=== PATIENT | female | born 1970 | race Caucasian/White ===

== ENCOUNTER 2019-12-09 19:40 | Emergency (ER) | payer OTHER, BC, SELFPAY ==
--- NOTE | ~2019-12-09 | CT_ITS ---
EXAMINATION: CT abdomen pelvis wo con DATE: 12/10/2019 00:12 INDICATION: Epigastric abdominal pain. TECHNIQUE: Computed tomography (CT) of the abdomen and pelvis was performed without intravenous contr ast. Automated exposure control and iterative reconstruction technique were employed. The dose-length product was 399.18 mGy-cm. COMPARISON: CT abdomen and pelvis 07/17/2019 FINDINGS: The visualized portions of the lung bases demonstrate mild atelectasis. No pleural effusion . The heart size is normal. No pericardial effusion. Again seen is pneumobilia, likely secondary to s phincterotomy. There are changes of cholecystectomy. The spleen, pancreas, adrenal glands, and kidney s are normal. There is no urolithiasis. There are no dilated loops of bowel. The appendix is normal. There are no pathologically enlarged lymph nodes. There is no free intraperitoneal fluid. There is joy bcutaneous fat stranding in right buttock, likely fat necrosis. The bones are unremarkable. IMPRESSION: 1. No etiology for the patient's symptoms. Reviewed, dictated and finalized at location A. RTMENT ADMINISTRATOR
[2019-12-09 20:26] VITALS: BP 102/60; PULSE 70; RESP 18; TEMP 36.9; O2SAT 100
--- NOTE | 2019-12-09 20:33 | ECG_ITS ---
Measurements Intervals [place] Rate: 59 P: 62 FL: 116 QRS: 61 QRSD: 68 T: 58 QT: 386 QTc: 382 Interpretive Statements SINUS BRADYCARDIA WITH SHORT FL INTERVAL BORDERLINE ECG Electronically Signed On 12-10-2019 7:00:23 SENIOR PORTFOLIO ANALYST by Hernesto Ellis D.O.
[2019-12-09 20:42] LABS: Basophils Percent Auto 0.7 % (0.2-1.2); Eosinophils Absolute Auto 0.3 K/mm3 (0-0.3); Eosinophils Percent Auto 5.3 % (0-4.4); Hemoglobin 14.3 g/dL (12.0-15.0); Immature Granulocyte Absolute 0.01 K/mm3 (0.00-0.031); Immature Granulocyte Percent A 0.2 % (0-0.5); Lymphocytes Absolute Auto 2.54 K/mm3 (0.9-3.2); Lymphocytes Percent Auto 44.9 % (18.3-44.2); Mean Corpuscular Volume 88.1 fl (80-100); Monocytes Absolute Auto 0.5 K/mm3 (0.1-0.6); Monocytes Percent Auto 8.1 % (2.6-8.5); Neutrophils Absolute Auto 2.3 K/mm3 (1.3-6.7); Neutrophils Percent Auto 40.8 % (45.5-73.1); Platelet Count Result 204 k/mm3 (150-375); Red Blood Count 4.77 M/mm3 (4.2-5.4); Red Cell Distribution Width 12.5 % (11.5-14.5); White Blood Count 5.7 K/mm3 (4.5-10.0)
[2019-12-09 20:45] LABS: Add Urine Microscopic? YES; Appearance Urine Clear (Clear); Bilirubin Urine Negative (Negative); Blood Urine Negative (Negative); Color Urine Yellow (Yellow); Glucose Urine UA Negative (Negative); Ketones Urine Trace mg/dL (Negative); Leukocyte Esterase Ur Negative LEU/UL (Negative); Mucus Urine Rare /lpf; Nitrate Urine Negative (Negative); Protein Urine Negative (Negative); RBC Urine 0-2 /hpf (0-2); Specific Grav Ur 1.016 (1.001-1.035); Squamous Epithelial Cell Urine Rare /hpf (Few); Urobilinogen Urine Negative mg/dL (<2.0); WBC Urine 0-3 /hpf
[2019-12-09 20:54] LABS: Alanine Aminotransferase 23 U/L (4-35); Albumin Level 4.2 g/dL (3.5-5.1); Alkaline Phosphatase 69 U/L (38-126); Aspartate Amino Transferase 32 U/L (14-36); Bilirubin,Total 0.7 mg/dL (0.2-1.3); Blood Urea Nitrogen 11 mg/dL (7-17); Calcium 9.7 mg/dL (8.4-10.2); Carbon Dioxide 30 mmol/L (22-30); Chloride 102 mmol/L (98-107); Estimated CRCL calculation 65 ml/min; Estimated Glomerular Filt Rate > 60; Glucose 90 mg/dL (65-105); Lipase 48 U/L (23-300); Sodium 138 mmol/L (137-145)
[2019-12-09 21:06] LABS: Troponin I < 0.012 ng/mL (0.000-0.034)
[2019-12-09 23:24] VITALS: BP 108/67; PULSE 84; RESP 18; O2SAT 100
--- NOTE | 2019-12-09 23:41 | ED.ABDPAIN ---
HPI - Abdominal Pain General Chief Complaint: Abdominal Pain Stated Complaint: ABD PAIN Time Seen by Provider: 12/09/19 23:38 Source: patient and RN notes reviewed Mode of arrival: other Limitations: no limitations History of Present Illness HPI narrative: Pt is a 49 y/o female who presents to the ED with c/o epigastric abdominal pain that radiates to her chest that began a week ago, but has progresively worsened. Pt states that she has had heartburn for the past week. Pt describes her pain as burning. Pt states that on the right side of her abdomen her 'intestines draw up.' She states that she has been taking Protonix BID and Tums, but with no relief. Pt reports constipation and a cough, but denies nausea, diarrhea, and dysuria. Pt's GI is Dr. Gomez at [facility]. elicited complaint: abdominal pain Onset (ago): week(s) (1) Location: epigastric Quality: burning Radiation: chest Relieving factors: nothing Associated symptoms: other (constipation, cough) Related Data Home Medications Medication Instructions Recorded Confirmed desipramine 10 mg tablet 10 mg PO DAILY 09/17/19 pantoprazole 40 mg tablet,delayed 40 mg PO BID tablet 09/17/19 release rizatriptan 10 mg tablet See Rx Instructions PO .COMPLEX 09/17/19 Allergies Allergy/AdvReac Type Severity Reaction Status Date / Time ciprofloxacin Allergy Mild MUSCLE Verified 12/09/19 23:50 ACHES iodine Allergy Mild Unknown Verified 12/09/19 23:50 morphine Allergy Mild N/V Verified 12/09/19 23:50 Quinolones Allergy Mild Unknown Verified 12/09/19 23:50 tetracycline Allergy Mild MUSCLE ACHS Verified 12/09/19 23:50 doxycycline Allergy Unknown Unknown Verified 12/09/19 23:50 prochlorperazine Allergy Unknown Unknown Verified 12/09/19 23:50 promethazine Allergy Unknown Unknown Verified 12/09/19 23:50 sulfamethoxazole Allergy Unknown Unknown Verified 12/09/19 23:50 trimethoprim Allergy Unknown Unknown Verified 12/09/19 23:50 Contrast Media Allergy Severe IVP DYE Uncoded 12/09/19 23:50 CAUSES RESPIRATORY DISTRESS CIPROFLOXACIN HCL Allergy Mild MUSCLE Uncoded 12/09/19 23:50 ACHES Review of Systems Review of Systems: All systems reviewed & are unremarkable except as noted in HPI and below Respiratory: Respiratory: Reports cough Gastrointestinal: Gastrointestinal: Reports abdominal pain (epigastric, radiates to her chest), Reports constipation, Denies diarrhea and Denies nausea Genitourinary: Genitourinary: Denies dysuria PMFSH Past Medical History Medical History (Updated 12/10/19 @ 04:07 by Celsa Flanagan MD) Acute gastritis without bleeding Duodenal ulcer, unspecified as acute or chronic, without hemorrhage or perforation Esophageal reflux Fibromyalgia Migraine with aura and with status migrainosus, not intractable Mild intermittent asthma, uncomplicated Monoclonal gammopathy of unknown significance (MGUS) 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 Raynaud's syndrome Selective deficiency of immunoglobulin a [iga] Unspecified vitamin D deficiency Surgical History Surgical History (Updated 12/10/19 @ 00:02 by Selina Rider) H/O rectal sphincterotomy H/O sinus surgery History of bladder surgery History of ERCP x2 History of hysterectomy Hx of cholecystectomy Hx of tonsillectomy Social History Social History Smoking status: Never smoker Alcohol intake: never Gender identity (if verbalized by the patient): Female Exam Const: General: cooperative, no acute distress and alert Nutritional Appearance: well nourished Orientation/consciousness: patient oriented x3 Limitations: no limitations HENMT: Mouth: Yes lip normal and Yes moist mucous membranes Chest: Chest palpation & inspection: no tenderness (chest wall) Resp: Effort & Inspection: normal respiratory effort Auscultation: clear to auscultation bilaterally Cardio: Ra
[2019-12-09 23:51] VITALS: BP 128/82; PULSE 56; RESP 16; TEMP 36.4; O2SAT 100
--- NOTE | 2019-12-10 00:04 | PC.NURSE ---
Patient to radiology.
[2019-12-10] MEDS: PANTOPRAZOLE SODIUM IV 40 MG VIAL IV PUSH (00:23)
[2019-12-10 01:00] VITALS: BP 114/86; PULSE 57; RESP 18; O2SAT 99
[2019-12-10] MEDS: SUCRALFATE SUSP 100 MG/ML 10 ML UDC 1000 MG PO (02:09)
[2019-12-10 02:28] VITALS: BP 113/80; PULSE 60; RESP 20; TEMP 36.8; O2SAT 99
== END 2019-12-10 02:30 | disposition home or self-care (01) ==
PROVIDERS: Emergency Medicine; Emergency Provider Emergency Medicine; PCP Family Medicine
DX: R10.13 Epigastric pain (principal); K21.9 Gastro-esophageal reflux disease without esophagitis; M79.7 Fibromyalgia; J45.20 Mild intermittent asthma, uncomplicated; I73.00 Raynaud's syndrome without gangrene; R00.1 Bradycardia, unspecified
CPT/HCPCS: 36415; 74176; 80053; 81001; 83690; 84484; 85025; 93005; 96374; 99284; A9270; C9113

== ENCOUNTER 2020-04-07 10:30 | Emergency (ER) | payer OTHER, BC, SELFPAY ==
[2020-04-07 10:42] VITALS: BP 113/76; PULSE 65; RESP 20; TEMP 36.8; O2SAT 100
--- NOTE | 2020-04-07 10:43 | ED.URI ---
HPI - URI/Sore Throat General Chief Complaint: Upper Respiratory Infection Stated Complaint: upper respiratory infection Time Seen by Provider: 04/07/20 10:43 Source: patient Mode of arrival: ambulatory Limitations: no limitations History of Present Illness HPI Narrative: Pina Reynaga is a 50 yo female with a PMH of anxiety, asthma, GERD, migraine, unknown autoimmune disease, who comes to [facility] care with sinus pain, cough, rhinorrhea,x 2 days Related Data Home Medications Medication Instructions Recorded Confirmed pantoprazole 40 mg tablet,delayed 40 mg PO BID tablet 09/17/19 03/22/20 release Zyrtec 04/07/20 Allergies Allergy/AdvReac Type Severity Reaction Status Date / Time ciprofloxacin Allergy Mild MUSCLE Verified 04/03/20 09:07 ACHES iodine Allergy Mild Unknown Verified 04/03/20 09:07 morphine Allergy Mild N/V Verified 04/03/20 09:07 Quinolones Allergy Mild Unknown Verified 04/03/20 09:07 tetracycline Allergy Mild MUSCLE ACHS Verified 04/03/20 09:07 doxycycline Allergy Unknown Unknown Verified 04/03/20 09:07 prochlorperazine Allergy Unknown Unknown Verified 04/03/20 09:07 promethazine Allergy Unknown Unknown Verified 04/03/20 09:07 sulfamethoxazole Allergy Unknown Unknown Verified 04/03/20 09:07 trimethoprim Allergy Unknown Unknown Verified 04/03/20 09:07 Contrast Media Allergy Severe IVP DYE Uncoded 04/03/20 09:07 CAUSES RESPIRATORY DISTRESS CIPROFLOXACIN HCL Allergy Mild MUSCLE Uncoded 04/03/20 09:07 ACHES Review of Systems Review of Systems: Narrative: CONSTITUTIONAL: Denies fever, chills, sweats. EYES: Denies visual changes, redness, discharge. ENT: Has rhinorrhea, congestion, headache, no sore throat, no otalgia. CARDIOVASCULAR: Denies chest pain, palpitations, edema. RESPIRATORY: Denies dyspnea, wheezing, mild cough GASTROINTESTINAL: Denies abdominal pain, nausea, vomiting, diarrhea. GENITOURINARY: Denies dysuria, hematuria, abnormal discharge SKIN: Denies rash or itching. NEUROLOGIC: Denies numbness, or focal weakness. PSYCHIATRIC: Denies anxiety or depression. 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] Unspecified vitamin D deficiency Surgical History Surgical History H/O rectal sphincterotomy H/O sinus surgery History of bladder surgery History of ERCP x2 History of hysterectomy Hx of cholecystectomy Hx of tonsillectomy Family History Family History Mother Family history of osteoporosis Hypertension Family history of arthritis Depression Family history of psoriasis Grandparent Family history of osteoporosis Hypertension Family history of malignant neoplasm Family history of chronic obstructive pulmonary disease Family history of Alzheimer's disease Family history of glaucoma Cerebrovascular accident Family history of malignant neoplasm of breast Family history of lymphoma Family history of malignant neoplasm of ovary Father Hypertension Asthma Other Family history of migraine headaches Social History Social History Smoking status: Never smoker Alcohol intake: never Gender identity (if verbalized by the patient): Female Comments At time of signature, I agree with nursing past medical, surgical, social and family history. There is no relevant fam
== END 2020-04-07 11:10 | disposition home or self-care (01) ==
PROVIDERS: Emergency Provider Nurse Practitioner; PCP Family Medicine
DX: J01.11 Acute recurrent frontal sinusitis (principal); J45.909 Unspecified asthma, uncomplicated; K21.9 Gastro-esophageal reflux disease without esophagitis; M79.7 Fibromyalgia; M85.80 Other specified disorders of bone density and structure, unspecified site; I73.00 Raynaud's syndrome without gangrene; E55.9 Vitamin D deficiency, unspecified
CPT/HCPCS: 99213; G0463

== ENCOUNTER 2020-04-22 17:01 | Emergency (ER) | payer OTHER, BC, SELFPAY ==
--- NOTE | 2020-04-22 17:05 | ED.URI ---
HPI - URI/Sore Throat General Chief Complaint: Upper Respiratory Infection Stated Complaint: upper respiratory infection Time Seen by Provider: 04/22/20 17:43 Source: patient and RN notes reviewed Mode of arrival: ambulatory Limitations: no limitations History of Present Illness HPI Narrative: 50-year-old female presents with concern for sinus congestion, cough, nasal drainage for approximately 3 weeks. Reports frequent sinus infections, sees a sinus specialist but is unable to get in to see him. Denies fever. Reports malaise. Reports taking Zyrtec and Benadryl as needed. Finished a Medrol Dosepak after a visit to the [facility] for sinusitis on April 07. Reports some relief from the Dosepak however symptoms returned. MD elicited complaint: cough and nasal congestion Related Data Home Medications Medication Instructions Recorded Confirmed pantoprazole 40 mg tablet,delayed 40 mg PO BID tablet 09/17/19 04/22/20 release Zyrtec 10 mg DAILY 04/07/20 04/22/20 Allergies Allergy/AdvReac Type Severity Reaction Status Date / Time ciprofloxacin Allergy Mild MUSCLE Verified 04/22/20 17:11 ACHES iodine Allergy Mild Unknown Verified 04/22/20 17:11 morphine Allergy Mild N/V Verified 04/22/20 17:11 Quinolones Allergy Mild Unknown Verified 04/22/20 17:11 tetracycline Allergy Mild MUSCLE ACHS Verified 04/22/20 17:11 doxycycline Allergy Unknown Unknown Verified 04/22/20 17:11 prochlorperazine Allergy Unknown Unknown Verified 04/22/20 17:11 promethazine Allergy Unknown Unknown Verified 04/22/20 17:11 sulfamethoxazole Allergy Unknown Unknown Verified 04/22/20 17:11 trimethoprim Allergy Unknown Unknown Verified 04/22/20 17:11 Contrast Media Allergy Severe IVP DYE Uncoded 04/03/20 09:07 CAUSES RESPIRATORY DISTRESS CIPROFLOXACIN HCL Allergy Mild MUSCLE Uncoded 04/03/20 09:07 ACHES Review of Systems Review of Systems: Narrative: CONSTITUTIONAL: Denies malaise, chills, sweats, or fever. EYES: Denies visual changes, redness, or discharge. ENT: Reports rhinorrhea, congestion, sinus pain, otalgia and sore throat. CARDIOVASCULAR: Denies chest pain, palpitations, or edema. RESPIRATORY: Reports cough. Denies dyspnea. GASTROINTESTINAL: Denies abdominal pain, nausea, vomiting, diarrhea SKIN: Denies rash or itching. MUSCULOSKELETAL: Denies myalgia. NEUROLOGIC: Denies headache. All systems reviewed & are unremarkable except as noted in HPI and below PMFSH Social History Social History Smoking status: Never smoker Alcohol intake: never Gender identity (if verbalized by the patient): Female Comments At time of signature, agree with nursing past medical, surgical, social and family history. There is no relevant family history pertinent to the presenting complaint Exam Narrative: Exam Narrative: GENERAL: Well-appearing, well-nourished, and in no acute distress. HEAD: Normocephalic EYES: PERRLA, conjunctivae clear ENT: Nares clear, turbinates edematous and erythematous, green discharge, sinus tenderness. Mucous membranes moist. TM pearly douglass with dull light reflex bilaterally; no tragal tenderness. Oropharynx not erythematous without lesions. Tonsils not enlarged and without exudate, no drooling, no hoarseness, no trismus, uvula midline. NECK: Supple. No lymphadenopathy CHEST: Clear to auscultation, breath sounds equal. No wheezing, rhonchi, rales, or stridor. No respiratory distress, speaks in full sentences. HEART: Regular rate and rhythm. No murmur heard. SKIN: Warm, dry, no rash. NEURO: Alert and oriented x3. PSYCH: Normal mood and affect Course Course Emergency Course: Patient is aware of diagnosis, understands and agrees to treatment plan. Anticipatory guidance given. Patient agrees to follow-up as directed and is aware of reasons to seek care at the emergency department. Portions of this record may have been created with voice recognition software [employer]
[2020-04-22 17:10] VITALS: BP 112/71; PULSE 71; RESP 18; TEMP 37.4; O2SAT 100
== END 2020-04-22 17:57 | disposition home or self-care (01) ==
PROVIDERS: Emergency Provider Nurse Practitioner; PCP Family Medicine
DX: J06.9 Acute upper respiratory infection, unspecified (principal); R05 Cough; K21.9 Gastro-esophageal reflux disease without esophagitis
CPT/HCPCS: 99213; G0463

== ENCOUNTER 2020-06-11 17:06 | Emergency (ER) | payer OTHER, BC, SELFPAY ==
--- NOTE | ~2020-06-11 | XR_ITS ---
EXAMINATION: XR chest 2V 06/11/2020 17:42 INDICATION: Difficulty breathing PROCEDURE: 2 view chest COMPARISON: 07/19/2019 FINDINGS: The lungs are clear. The cardiomediastinal silhouette is within normal limits. There are no pleural effusions. There is no pneumothorax suspected. IMPRESSION: 1: NO ACUTE CARDIOPULMONARY DISEASE. Reviewed, dictated and finalized at location A.
--- NOTE | 2020-06-11 17:10 | ED.URI ---
HPI - URI/Sore Throat General Chief Complaint: Upper Respiratory Infection Stated Complaint: Possible sinus infection Time Seen by Provider: 06/11/20 17:14 Source: patient and RN notes reviewed Mode of arrival: ambulatory Limitations: no limitations History of Present Illness HPI Narrative: 50-year-old female with chronic sinusitis and IgA deficiency presents with concern for shortness of breath and cough for 2 days. Reports losing her sense of taste and smell. This patient is seen by pediatric sports medicine specialist in a specialist for chronic pansinusitis. MD elicited complaint: nasal congestion and other (Shortness of breath, cough) Related Data Home Medications Medication Instructions Recorded Confirmed pantoprazole 40 mg tablet,delayed 40 mg PO BID tablet 09/17/19 06/11/20 release Zyrtec 10 mg DAILY 04/07/20 06/11/20 budesonide 0.5 mg Q4-6H PRN 06/11/20 06/11/20 Allergies Allergy/AdvReac Type Severity Reaction Status Date / Time ciprofloxacin Allergy Mild MUSCLE Verified 06/11/20 17:13 ACHES iodine Allergy Mild Unknown Verified 06/11/20 17:12 morphine Allergy Mild N/V Verified 06/11/20 17:12 Quinolones Allergy Mild Unknown Verified 06/11/20 17:12 tetracycline Allergy Mild MUSCLE ACHS Verified 06/11/20 17:12 doxycycline Allergy Unknown Unknown Verified 06/11/20 17:12 prochlorperazine Allergy Unknown Unknown Verified 06/11/20 17:12 promethazine Allergy Unknown Unknown Verified 06/11/20 17:12 sulfamethoxazole Allergy Unknown Unknown Verified 06/11/20 17:12 trimethoprim Allergy Unknown Unknown Verified 06/11/20 17:12 Contrast Media Allergy Severe IVP DYE Uncoded 06/11/20 17:13 CAUSES RESPIRATORY DISTRESS Review of Systems Review of Systems: Narrative: CONSTITUTIONAL: Reports malaise, sweats. Denies chills, or fever. EYES: Denies visual changes, redness, or discharge. ENT: Reports rhinorrhea, congestion, sinus pain, postnasal drainage. Denies otalgia and sore throat. CARDIOVASCULAR: Denies chest pain, palpitations, or edema. RESPIRATORY: Reports cough, shortness of breath GASTROINTESTINAL: Denies abdominal pain, nausea, vomiting, diarrhea SKIN: Denies rash or itching. MUSCULOSKELETAL: Denies myalgia. NEUROLOGIC: Denies headache. All systems reviewed & are unremarkable except as noted in HPI and below PMFSH Social History Social History Smoking status: Never smoker Alcohol intake: never Gender identity (if verbalized by the patient): Female Comments At time of signature, agree with nursing past medical, surgical, social and family history. There is no relevant family history pertinent to the presenting complaint Exam Narrative: Exam Narrative: GENERAL: Well-appearing, well-nourished, and in no acute distress. HEAD: Normocephalic EYES: PERRLA, conjunctivae clear ENT: Nares clear, turbinates erythematous, no discharge. Mucous membranes moist. TM pearly douglass with dull light reflex bilaterally; no tragal tenderness. Oropharynx not erythematous without lesions. Tonsils not enlarged and without exudate, no drooling, no hoarseness, no trismus, uvula midline. NECK: Supple. No lymphadenopathy CHEST: Scattered crackles noted in the left upper lobe, otherwise clear to auscultation, breath sounds equal. No wheezing, rhonchi, or stridor. No respiratory distress, speaks in full sentences. HEART: Regular rate and rhythm. No murmur heard. SKIN: Warm, dry, no rash. NEURO: Alert and oriented x3. PSYCH: Normal mood and affect Course Course Emergency Course: Patient is aware of diagnosis, understands and agrees to treatment plan. Anticipatory guidance given. Patient agrees to follow-up as directed and is aware of reasons to seek care at the emergency department. Portions of this record may have been created with voice recognition software Vital Signs Vital signs: Reviewed. MDM - URI/Sore Throat MDM Narrative Medical decision making narrative: Differential diagnosi
[2020-06-11 17:18] VITALS: BP 144/87; PULSE 64; RESP 16; TEMP 37.1; O2SAT 100
== END 2020-06-11 17:59 | disposition home or self-care (01) ==
PROVIDERS: Emergency Provider Nurse Practitioner; PCP Family Medicine
DX: R05 Cough (principal); Z20.828 Contact with and (suspected) exposure to other viral communicable diseases; D80.2 Selective deficiency of immunoglobulin A [IgA]
CPT/HCPCS: 71046; 99213; G0463

== ENCOUNTER 2020-10-14 12:59 | Emergency (ER) | payer OTHER, BC, SELFPAY ==
--- NOTE | 2020-10-14 13:06 | ED.GENADULT ---
HPI - General Adult General Chief complaint: Urogenital-Female Stated complaint: possible uti Time Seen by Provider: 10/14/20 13:07 Source: patient Mode of arrival: ambulatory Limitations: no limitations History of Present Illness HPI narrative: 50-year-old female patient presents to the [facility] with complaints of urinary symptoms that started possibly about 2 weeks ago. Patient states she has had some low back pain for the past 1 to 2 weeks. Patient states she noticed some increase in pain with urination the past couple of days and today noticed some blood in her urine. Denies any fevers, body aches or chills. Patient does have some lower abdominal cramping. Denies any nausea, vomiting or diarrhea. Patient denies taking anything for pain. Related Data Home Medications Medication Instructions Recorded Confirmed Zyrtec 10 mg DAILY 04/07/20 09/01/20 budesonide 0.5 mg Q4-6H PRN 06/11/20 09/01/20 Allergies Allergy/AdvReac Type Severity Reaction Status Date / Time ciprofloxacin Allergy Mild MUSCLE Verified 10/14/20 13:13 ACHES iodine Allergy Mild Unknown Verified 10/14/20 13:13 morphine Allergy Mild N/V Verified 10/14/20 13:13 Quinolones Allergy Mild Unknown Verified 10/14/20 13:13 tetracycline Allergy Mild MUSCLE ACHS Verified 10/14/20 13:13 doxycycline Allergy Unknown Unknown Verified 10/14/20 13:13 prochlorperazine Allergy Unknown Unknown Verified 10/14/20 13:13 promethazine Allergy Unknown Unknown Verified 10/14/20 13:13 sulfamethoxazole Allergy Unknown Unknown Verified 10/14/20 13:13 trimethoprim Allergy Unknown Unknown Verified 10/14/20 13:13 Contrast Media Allergy Severe IVP DYE Uncoded 06/29/20 16:06 CAUSES RESPIRATORY DISTRESS Review of Systems Review of Systems: Narrative: CONSTITUTIONAL: Denies fever, chills, or sweats. EYES: Denies visual changes, redness, or discharge. ENT: Denies rhinorrhea, congestion, sore throat, or otalgia. CARDIOVASCULAR: Denies chest pain, palpitations, or edema. RESPIRATORY: Denies cough or dyspnea. GASTROINTESTINAL: Denies abdominal pain, nausea, vomiting, or diarrhea. GENITOURINARY: Positive dysuria with hematuria. SKIN: Denies rash or itching. MUSCULOSKELETAL: Positive low back pain, denies joint pain, or myalgia. NEUROLOGIC: Denies headache, numbness, or weakness. PSYCHIATRIC: Denies anxiety or depression. [facility] Past Medical History Medical History (Updated 10/14/20 @ 13:32 by DALE Mario) Acute gastritis without bleeding Duodenal ulcer, unspecified as acute or chronic, without hemorrhage or perforation Esophageal reflux Fibromyalgia Hiatal hernia Migraine with aura and with status migrainosus, not intractable Mild intermittent asthma, uncomplicated Monoclonal gammopathy of unknown significance (MGUS) Nontoxic thyroid nodule Osteopenia Primary narcolepsy without cataplexy Raynaud's syndrome Selective deficiency of immunoglobulin a [iga] Unspecified vitamin D deficiency Surgical History Surgical History H/O rectal sphincterotomy H/O sinus surgery History of bladder surgery History of ERCP x2 History of hysterectomy Hx of cholecystectomy Hx of tonsillectomy Family History Family History Mother Family history of osteoporosis Hypertension Family history of arthritis Depression Family history of psoriasis Grandparent Family history of osteoporosis Hypertension Family history of malignant neoplasm Family history of chronic obstructive pulmonary disease Family history of Alzheimer's disease Family history of glaucoma Cerebrovascular accident Family history of malignant neoplasm of breast Family history of lymphoma Family history of malignant neoplasm of ovary Father Hypertension Asthma Other Family history of migraine headaches Social History Social History (Reviewed 10/14/20 @ 13:07 by Yolette Gandara
[2020-10-14 13:09] VITALS: BP 120/84; PULSE 75; RESP 16; TEMP 36.7; O2SAT 98
== END 2020-10-14 13:37 | disposition home or self-care (01) ==
PROVIDERS: Emergency Provider Nurse Practitioner Family; PCP Family Medicine
DX: N30.01 Acute cystitis with hematuria (principal); M79.7 Fibromyalgia; M85.80 Other specified disorders of bone density and structure, unspecified site; I73.00 Raynaud's syndrome without gangrene; D80.2 Selective deficiency of immunoglobulin A [IgA]
CPT/HCPCS: 81003; 87086; 99213; G0463

== ENCOUNTER → 2020-12-15 09:10 | Outpatient (CLI) | payer OTHER, BC, SELFPAY ==
[2020-12-16 08:28] LABS: SARS-CoV-2 RNA PCR Negative
== END ==
PROVIDERS: PCP Family Medicine; Visit Provider Family Medicine
DX: R05 Cough (principal); Z20.822 Contact with and (suspected) exposure to COVID-19
CPT/HCPCS: C9803; U0003; U0005

== ENCOUNTER 2020-12-15 17:18 | Emergency (ER) | payer OTHER, BC, SELFPAY ==
--- NOTE | ~2020-12-15 | CT_ITS ---
EXAMINATION: CT abdomen pelvis wo con DATE: 12/15/2020 19:42 INDICATION: Right lower quadrant pain TECHNIQUE: Computed tomography (CT) of the abdomen and pelvis was performed without intravenous contr ast. The dose-length product (DLP) was 347.89 mGy-cm. Automated exposure control and iterative recons truction technique were employed. COMPARISON: 12/10/2019 FINDINGS: The lung bases are clear. The heart size is normal. The gallbladder is surgically absent. T here is chronic pneumobilia, likely secondary to sphincterotomy. An epigastric midline hernia contain ing fat is again noted. The liver, spleen, pancreas, and adrenal glands are normal. The kidneys are u nremarkable. No stones are identified in the kidneys, ureters, or bladder. There is no hydronephrosis or hydroureter. The appendix is normal. A large volume of colonic stool is present. IMPRESSION: 1. No CT correlate for the patient's symptoms. Reviewed, dictated and finalized at location A. NICAL SALES ADVISOR
[2020-12-15 17:21] VITALS: BP 156/91; PULSE 65; RESP 20; TEMP 36.6; O2SAT 99
[2020-12-15 17:34] LABS: Basophils Absolute Auto 0.1 K/mm3 (0.0-0.1); Eosinophils Absolute Auto 0.4 K/mm3 (0-0.3); Hematocrit 42.2 % (37.0-47.0); Hemoglobin 14.6 g/dL (12.0-15.0); Immature Granulocyte Absolute 0.02 K/mm3 (0.00-0.031); Immature Granulocyte Percent A 0.3 % (0-0.5); Lymphocytes Absolute Auto 2.94 K/mm3 (0.9-3.2); Lymphocytes Percent Auto 48.7 % (18.3-44.2); Mean Corpuscular HGB Conc 34.6 g/dl (32-36); Mean Corpuscular Hemoglobin 31.2 pg (26-34); Mean Corpuscular Volume 90.2 fl (80-100); Mean Platelet Volume 10.6 fl (7.4-10.4); Monocytes Absolute Auto 0.6 K/mm3 (0.1-0.6); Monocytes Percent Auto 10.4 % (2.6-8.5); Neutrophils Percent Auto 33.6 % (45.5-73.1); Platelet Count Result 207 k/mm3 (150-375); Red Blood Count 4.68 M/mm3 (4.2-5.4); Red Cell Distribution Width 12.2 % (11.5-14.5)
--- NOTE | 2020-12-15 17:39 | ED.ABDPAIN ---
HPI - Abdominal Pain General Chief Complaint: Abdominal Pain Stated Complaint: abd pain, headache Time Seen by Provider: 12/15/20 17:27 Source: patient Mode of arrival: ambulatory Limitations: no limitations History of Present Illness HPI narrative: Patient is a 50-year-old female complaining of right lower quadrant pain, 9 out of 10, sharp, intermittent accompanied by dysuria nonradiating, started approximately 1 week ago. Patient denies any chest pain, shortness of breath, nausea, vomiting, diarrhea, fever or chills. Related Data Home Medications Medication Instructions Recorded Confirmed Zyrtec 10 mg DAILY 04/07/20 10/20/20 budesonide 0.5 mg Q4-6H PRN 06/11/20 10/20/20 Saccharomyces boulardii 250 mg 250 mg PO DAILY cap 10/16/20 10/20/20 capsule dextromethorphan-guaifenesin ER 60 1 tablet PO Q12H PRN tablet 10/16/20 10/20/20 mg-1,200 mg tab,extend release,12hr Allergies Allergy/AdvReac Type Severity Reaction Status Date / Time prochlorperazine Allergy Severe Anxiety Verified 12/15/20 17:23 doxycycline Allergy Intermediate mus Verified 12/15/20 17:23 ciprofloxacin Allergy Mild MUSCLE Verified 12/15/20 17:23 ACHES iodine Allergy Mild Unknown Verified 12/15/20 17:23 morphine Allergy Mild N/V Verified 12/15/20 17:23 Quinolones Allergy Mild Unknown Verified 12/15/20 17:23 tetracycline Allergy Mild MUSCLE ACHS Verified 12/15/20 17:23 promethazine Allergy Unknown Unknown Verified 12/15/20 17:23 sulfamethoxazole Allergy Unknown Unknown Verified 12/15/20 17:23 trimethoprim Allergy Unknown Unknown Verified 12/15/20 17:23 Contrast Media Allergy Severe IVP DYE Uncoded 12/15/20 17:23 CAUSES RESPIRATORY DISTRESS Review of Systems Review of Systems: All systems reviewed & are unremarkable except as noted in HPI and below Constitutional: Constitutional: Denies body ache(s), Denies chills, Denies excessive sweating, Denies fatigue, Denies fever(s), Denies headache(s), Denies lethargy, Denies malaise, Denies weakness and Denies weight loss Eyes: Eyes: Denies blurry vision, Denies change in vision and Denies loss of vision ENT: Denies dizziness, Denies ear discharge, Denies headache(s), Denies lip swelling, Denies epistaxis, Denies nasal congestion, Denies neck pain, Denies throat swelling and Denies tongue swelling Cardiovascular: Cardiovascular: Denies chest pain, Denies chest pain at rest, Denies chest pain with activity, Denies diaphoresis, Denies rapid heart rate, Denies edema, Denies irregular heart rhythm, Denies lightheadedness, Denies palpitations, Denies dyspnea and Denies dyspnea on exertion Respiratory: Respiratory: Denies chest congestion, Denies cough, Denies hemoptysis, Denies dyspnea and Denies dyspnea on exertion Gastrointestinal: Gastrointestinal: Denies melena, Denies hematochezia, Denies diarrhea, Denies nausea, Denies vomiting and Denies hematemesis Musculoskeletal: Musculoskeletal: Denies abnormal gait, Denies deformity, Denies joint swelling, Denies limited range of motion, Denies neck pain and Denies numbness Neurologic: Denies Abnormal speech present, Denies abnormal gait, Denies confusion, Denies dizziness, Denies headache(s), Denies focal weakness, Denies loss of vision, Denies numbness, Denies Other visual disturbances, Denies Sensory deficit (Neuro) and Denies weakness Psychiatric: Psychiatric: Denies confusion, Denies depression, Denies auditory hallucinations, Denies homicidal ideation and Denies suicidal ideation Endocrine: Endocrine: Denies cold intolerance, Denies excessive sweating, Denies fatigue, Denies heat intolerance and Denies palpitations Hematologic/Lymphatic: Hematologic/Lymphatic: Denies easy bleeding and Denies easy bruising Allergic/Immunologic: Allergic/Immunologic: Denies lip swelling, Denies throat swelling and Denies tongue swelling PMFSH Past Medical History Medical History Acute gastritis without bleeding
[2020-12-15 17:46] LABS: Alanine Aminotransferase 20 U/L (4-35); Albumin Level 4.2 g/dL (3.5-5.1); Alkaline Phosphatase 101 U/L (38-126); Anion Gap 5 mmol/L (8-16); Aspartate Amino Transferase 32 U/L (14-36); Bilirubin,Total 0.5 mg/dL (0.2-1.3); Blood Urea Nitrogen 13 mg/dL (7-17); Calcium 8.9 mg/dL (8.4-10.2); Carbon Dioxide 28 mmol/L (22-30); Chloride 106 mmol/L (98-107); Estimated CRCL calculation 72 ml/min; Estimated Glomerular Filt Rate > 60; Glucose 93 mg/dL (65-105); Lipase 74 U/L (23-300); Potassium 3.8 mmol/L (3.4-5.0); Sodium 139 mmol/L (137-145)
[2020-12-15 17:59] LABS: Add Urine Microscopic? YES; Appearance Urine Clear (Clear); Bilirubin Urine Negative (Negative); Blood Urine Negative (Negative); Color Urine Yellow (Yellow); Glucose Urine UA Negative (Negative); Ketones Urine Negative (Negative); Leukocyte Esterase Ur Negative LEU/UL (Negative); Nitrate Urine Negative (Negative); Protein Urine 1+ mg/dL (Negative); RBC Urine 0-2 /hpf (0-2); Specific Grav Ur 1.024 (1.001-1.035); Urobilinogen Urine Negative mg/dL (<2.0); WBC Urine 0-3 /hpf
[2020-12-15 18:50] VITALS: BP 133/83; PULSE 60; RESP 20; O2SAT 99
[2020-12-15] MEDS: KETOROLAC 30 MG/ML VIAL (*BKC) IV PUSH (18:56)
[2020-12-15] MEDS: SODIUM CHLORIDE 0.9% IV 1,000 ML 999 ML IV CONT (18:56)
--- NOTE | 2020-12-15 19:17 | PC.NURSE ---
Report received from GYPSY Mckeon. Assumed care of patient at this time.
[2020-12-15 20:08] VITALS: BP 116/79; PULSE 66; RESP 18; O2SAT 100
[2020-12-15 20:44] VITALS: BP 116/79; PULSE 64; RESP 18; O2SAT 100
== END 2020-12-15 20:46 | disposition home or self-care (01) ==
PROVIDERS: Emergency Medicine; Emergency Provider Emergency Medicine; PCP Family Medicine
DX: R10.31 Right lower quadrant pain (principal); M79.7 Fibromyalgia; K21.9 Gastro-esophageal reflux disease without esophagitis; J45.20 Mild intermittent asthma, uncomplicated; D47.2 Monoclonal gammopathy; M85.80 Other specified disorders of bone density and structure, unspecified site; E66.3 Overweight; Z68.26 Body mass index [BMI] 26.0-26.9, adult; I73.00 Raynaud's syndrome without gangrene; D80.2 Selective deficiency of immunoglobulin A [IgA]; E55.9 Vitamin D deficiency, unspecified; E04.1 Nontoxic single thyroid nodule
CPT/HCPCS: 36415; 74176; 80053; 81001; 83690; 85025; 96361; 96374; 99284; C9803; J1885; J7030; U0003; U0005

== ENCOUNTER 2020-12-16 10:57 | Outpatient (CLI) | payer OTHER, BC, SELFPAY ==
--- NOTE | ~2020-12-16 | DEXA_ITS ---
Bone Density Report Name: Pina Reynaga Age: 50 Sex: Female Ethnicity: White Date of : 1970 Indication: postmenopausal; hysterectomy; Referring Provider: Jonathan Amado Study: Bone densitometry was performed. Exam Date: December 16, 2020 Accession number: [id number] Bone Density: Region BMD T-score Z-score Classification AP Spine (L1-L4) 0.774 -2.5 -1.8 Osteoporosis Femoral Neck (Left) 0.666 -1.7 -0.9 Osteopenia Total Hip (Left) 0.829 -0.9 -0.5 Normal Total Hip Bilateral Avg 0.836 -0.8 -0.5 Normal Femoral Neck (Right) 0.728 -1.1 -0.4 Osteopenia Total Hip (Right) 0.843 -0.8 -0.4 Normal World Health Organization criteria for BMD impression classify patients as: Normal (T-score at or above -1.0), Osteopenia (T-score between -1.0 and -2.5), or Osteoporosis (T-score at or below -2.5). 10-year Fracture Risk: FRAX not reported because: Some T-score for Spine Total or Hip Total or Femoral Neck at or below -2.5 Clinical Information Provided by Patient: Has used the following medications: Vitamin D, Calcium Has the following medical conditions: Hysterectomy Patient maximum height was 64 Menopause Age: 29 No regular weight bearing exercise Drinks caffeinated beverages Onset of menses at age 13 Number of children 2 Impression: The patient has osteoporosis, based on the Total Spine T-score. Discussion: INCREASED RISK OF FRACTURE. BONE DENSITY IS UNDESIRABLY LOW AT ONE OR MORE SKELETAL SITES, CONSISTENT WITH POSTMENOPAUSAL OSTEOPOROSIS. This patient's lowest T-score meets the World Health Organization's (WHO) criteria for osteoporosis at one or more sites (T-score -2.5 or below). In untreated patients, the risk of osteoporotic fracture increases approximately two-fold for each 1.0 SD decrease in T-score. Low bone density is not the only risk factor for fracture; also consider factors such as patient's age, frailty or poor health, risk of falling, risk of injury, previous osteoporotic fracture, family history of osteoporosis, cigarette smoking, low body weight, etc. Not everyone with low bone mineral density has osteoporosis; osteomalacia and other metabolic bone disorders should also be considered. Patients who have osteoporosis should be evaluated for specific diseases and conditions (secondary causes) that may cause or contribute to bone loss. The [place] [employer]ocrin[employer] (AACE) and National Osteoporosis Foundation (NOF) recommend pharmacologic intervention for all postmenopausal women whose T-score is in this range. The patient should follow a healthful lifestyle (good nutrition with adequate calcium and vitamin D, and appropriate weight-bearing exercise). Follow-Up: Consider a repeat BMD and Vertebral Fracture Assessment (VFA) exam in 2 years or sooner if medically necessary, to reasses
== END 2020-12-16 10:58 | disposition home or self-care (01) ==
LOC: ANHIMG 10:58
PROVIDERS: PCP Family Medicine; Visit Provider Family Medicine
DX: Z78.0 Asymptomatic menopausal state (principal); M81.0 Age-related osteoporosis without current pathological fracture; M85.852 Other specified disorders of bone density and structure, left thigh; M85.851 Other specified disorders of bone density and structure, right thigh
CPT/HCPCS: 77080

== ENCOUNTER 2021-11-22 09:49 | Outpatient (CLI) | payer OTHER, BC, SELFPAY ==
--- NOTE | ~2021-11-22 | XR_ITS ---
XR thoracolumbar DATE: 11/22/2021 10:11 INDICATION: Osteoporosis TECHNIQUE: AP and lateral views of the thoracolumbar area including mid T5 through lower L5 on AP vie w and lower T8 through mid sacral level on the lateral view COMPARISON: None FINDINGS: There is levoscoliosis of the thoracic spine. No fracture or dislocation or bone destruction of the mid to lower thoracic or lumbar spine. The incl uded thoracic and lumbar pedicles are intact. Lumbar and lumbosacral interspaces appear relatively we ll preserved. Surgical clips, right upper quadrant, consistent with cholecystectomy. IMPRESSION: Scoliosis Reviewed, dictated and finalized at location A. ARE MANAGER IMPRESSION: Scoliosis
== END 2021-11-22 09:50 | disposition home or self-care (01) ==
LOC: ANHIMG 09:51
PROVIDERS: PCP Family Medicine; Visit Provider Family Medicine
DX: M81.0 Age-related osteoporosis without current pathological fracture (principal); M54.9 Dorsalgia, unspecified; M41.9 Scoliosis, unspecified
CPT/HCPCS: 72080

== ENCOUNTER 2023-03-13 06:34 | Outpatient (CLI) | payer OTHER, BC, SELFPAY ==
--- NOTE | ~2023-03-13 | MR_ITS ---
MRI of the brain Clinical History: Amnesia Technique: Axial and sagittal T1-weighted images were acquired. These were followed by axial T2-weigh junior, diffusion weighted, gradient, and FLAIR images. COMPARISON: 02/13/2018 Findings: There is no acute infarct, intracranial hemorrhage, or mass lesion. There are minimal chron ic white matter changes in the periventricular white matter bilaterally. Ventricles and subarachnoid spaces are unremarkable. Orbits are unremarkable. There is left maxillary and left ethmoid sinus disease. Remaining paranasal sinuses and mastoid air cells are clear. Distal right vertebral artery flow-void is not well-visualized. Remaining intracranial flow voids appear int act. Sagittal midline structures are intact. IMPRESSION: No acute infarct, intracranial hemorrhage or mass lesion. Minimal chronic white matter changes. Distal right vertebral artery flow-void not clearly visualized, unchanged. This could reflect underly ing hypoplastic right vertebral artery versus proximal occlusion. Left-sided sinus disease, as above. Reviewed, dictated and finalized at [facility]. IMPRESSION: No acute infarct, intracranial hemorrhage or mass lesion. Minimal chronic white matter changes. Distal right vertebral artery flow-void not clearly visualized, unchanged. This could reflect underlying hypoplastic right vertebral artery versus proximal oc clusion. Left-sided sinus disease, as above.
== END 2023-03-13 06:35 | disposition home or self-care (01) ==
PROVIDERS: PCP Family Medicine; Visit Provider Family Medicine
DX: R41.3 Other amnesia (principal); J32.9 Chronic sinusitis, unspecified
CPT/HCPCS: 70551

== ENCOUNTER 2023-04-29 08:52 | Emergency (ER) | payer OTHER, BC, SELFPAY ==
--- NOTE | ~2023-04-29 | CT_ITS ---
EXAMINATION: CT abdomen pelvis wo con DATE: 04/29/2023 09:31 INDICATION: Low back pain. Buttock pain. TECHNIQUE: Computed tomography (CT) of the abdomen and pelvis was performed without intravenous contr ast. Automated exposure control and iterative reconstruction technique were employed. The dose-length product was 224.19 mGy-cm. COMPARISON: CT abdomen and pelvis 12/15/2020 FINDINGS: The visualized portions of the lung bases demonstrate mild atelectasis. No pleural effusion . The heart size is normal. No pericardial effusion. The liver demonstrates pneumobilia, likely secon misty to sphincterotomy. There are changes of cholecystectomy. The spleen, pancreas, adrenal glands, a nd kidneys are normal. There is no urolithiasis. There are no dilated loops of bowel. The appendix is normal. There are no pathologically enlarged lymph nodes. There is no free intraperitoneal fluid. Th ere are periumbilical and supraumbilical ventral hernias containing fat. There is mild chronic anteri or wedging of T11 and T12 vertebral bodies. IMPRESSION: 1. Periumbilical and supraumbilical ventral hernias containing fat. Reviewed, dictated and finalized at location A.
[2023-04-29 08:56] VITALS: BP 136/93; PULSE 79; RESP 16; TEMP 36.8; O2SAT 100
--- NOTE | 2023-04-29 09:17 | ED.BACK ---
HPI - Back Pain/Injury General Chief Complaint: Back Pain/Injury <JERMAINE Dominguez Last Filed: 04/29/23 19:07> Stated Complaint: Back pain <JERMAINE Dominguez Last Filed: 04/29/23 19:07> Time Seen by Provider: 04/29/23 08:55 <JERMAINE Dominguez Last Filed: 04/29/23 19:07> Source: patient <JERMAINE Dominguez Last Filed: 04/29/23 19:07> Mode of arrival: ambulatory <JERMAINE Dominguez Last Filed: 04/29/23 19:07> Limitations: no limitations <JERMAINE Dominguez Last Filed: 04/29/23 19:07> History of Present Illness HPI Narrative: Patient is a 53 y/o female who presents to the ED with report of low back pain. Patient reports she was moving one of her cars out of the driveway this morning and accidentally knocked over her trash can. She got out of the car to scrap picker the trash can and when she sat back down in the car, she experienced sudden onset of low back pain. She states pain radiates down her legs bilaterally, left greater than right. She states she could hardly move at that time due to the pain. Pain was constant for around 20 minutes before she was able to move. Patient then prompted here. She has not taken anything for the pain. She notes history of osteoporosis and a tailbone fracture in the past. Denies history of kidney stones. Denies any abdominal pain, nausea, vomiting, numbness, bowel or bladder incontinence, saddle anesthesia, weakness of her lower extremities, fevers. <JERMAINE Dominguez Last Filed: 04/29/23 19:07> Related Data Home Medications: Home Medications Medication Instructions Recorded Confirmed Zyrtec 10 mg DAILY 04/07/20 03/06/23 dextromethorphan-guaifenesin ER 60 1 tablet PO Q12H PRN 10/16/20 03/06/23 mg-1,200 mg tab,extend release,12hr (Mucinex DM) <Haydee Downey PA-C - Last Filed: 04/29/23 19:07> Allergies/Adverse Reactions: Allergies Allergy/AdvReac Type Severity Reaction Status Date / Time prochlorperazine Allergy Severe Anxiety Verified 04/29/23 09:02 doxycycline Allergy Intermediate mus Verified 04/29/23 09:27 ciprofloxacin Allergy Mild MUSCLE Verified 04/29/23 09:27 ACHES iodine Allergy Mild Unknown Verified 04/29/23 09:27 morphine Allergy Mild N/V Verified 04/29/23 09:27 Quinolones Allergy Mild Unknown Verified 04/29/23 09:27 tetracycline Allergy Mild MUSCLE ACHS Verified 04/29/23 09:27 promethazine Allergy Unknown Unknown Verified 04/29/23 09:27 sulfamethoxazole Allergy Unknown Unknown Verified 04/29/23 09:27 trimethoprim Allergy Unknown Unknown Verified 04/29/23 09:27 Contrast Media Allergy Severe IVP DYE Uncoded 03/20/23 08:37 CAUSES RESPIRATORY DISTRESS <Haydee Downey PA-C - Last Filed: 04/29/23 19:07> Review of Systems Review of Systems: CONSTITUTIONAL: Denies fever, chills, or sweats. CARDIOVASCULAR: Denies chest pain. RESPIRATORY: Denies dyspnea. GASTROINTESTINAL: Denies abdominal pain, nausea, vomiting. MUSCULOSKELETAL: See HPI. NEUROLOGIC: See HPI. <Haydee Downey PA-C - Last Filed: 04/29/23 19:07> All systems reviewed & are unremarkable except as noted in HPI and below <Haydee Downey PA-C - Last Filed: 04/29/23 19:07> [facility] Past Medical History Medical History: Medical History Acute gastritis without bleeding Duodenal ulcer, unspecified as acute or chronic, without hemorrhage or perforation Erosive (osteo)arthritis Esophageal reflux Fibromyalgia Hiatal hernia Migraine with aura and with status migrainosus, not intractable Mild intermittent asthma, uncomplicated Monoclonal gammopathy of unknown significance (MGUS) Nontoxic thyroid nodule Osteopenia Osteoporosis Osteoporosis Overweight (BMI 25.0-29.9) Primary narcolepsy without cataplexy Raynaud's syndrome 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
[2023-04-29] MEDS: CYCLOBENZAPRINE HCL 5 MG TABLET PO (09:34)
[2023-04-29 09:35] VITALS: BP 125/89; PULSE 68; RESP 18; O2SAT 99
[2023-04-29] MEDS: ACETAMINOPHEN 500 MG TABLET 1000 MG PO (09:35)
[2023-04-29] MEDS: KETOROLAC (*BKC) 60 MG/2 ML VIAL IM (10:14)
[2023-04-29] MEDS: diazePAM INJ (*CRX) 10 MG/2 ML SYRINGE 2 MG IM (11:04)
[2023-04-29 11:43] VITALS: BP 124/90; PULSE 78; RESP 16; O2SAT 97
== END 2023-04-29 11:44 | disposition home or self-care (01) ==
PROVIDERS: Emergency Provider Physician Assistant; PCP Family Medicine
DX: S39.012A Strain of muscle, fascia and tendon of lower back, initial encounter (principal); M54.16 Radiculopathy, lumbar region; J45.20 Mild intermittent asthma, uncomplicated; I73.00 Raynaud's syndrome without gangrene; K83.09 Other cholangitis; K21.9 Gastro-esophageal reflux disease without esophagitis; E55.9 Vitamin D deficiency, unspecified; E66.3 Overweight; M85.80 Other specified disorders of bone density and structure, unspecified site; M81.0 Age-related osteoporosis without current pathological fracture; M79.7 Fibromyalgia; Z68.28 Body mass index [BMI] 28.0-28.9, adult; Z90.49 Acquired absence of other specified parts of digestive tract; Z90.710 Acquired absence of both cervix and uterus; K43.9 Ventral hernia without obstruction or gangrene; X50.0XXA Overexertion from strenuous movement or load, initial encounter
CPT/HCPCS: 74176; 96372; 99284; A9270; J1885; J3360

== ENCOUNTER 2023-06-12 14:06 | Emergency (ER) | payer OTHER, BC, SELFPAY ==
--- NOTE | ~2023-06-12 | XR_ITS ---
EXAMINATION: XR chest 2V DATE: 06/12/2023 16:16 INDICATION: Cough and congestion TECHNIQUE: AP and lateral views of the chest are obtained. COMPARISON: 06/11/2020 FINDINGS: The lungs are free of acute opacities. No pleural effusion or pneumothorax. The cardiomedia stinal silhouette is normal. There is mild thoracic spondylosis. IMPRESSION: 1. No acute cardiopulmonary abnormality. Reviewed, dictated and finalized at location L.
[2023-06-12 14:08] VITALS: BP 132/97; PULSE 67; RESP 14; TEMP 36.9; O2SAT 98
--- NOTE | 2023-06-12 14:20 | ECG_ITS ---
Measurements Intervals [place] Rate: 57 P: 51 NH: 120 QRS: 51 QRSD: 88 T: 49 QT: 397 QTc: 388 Interpretive Statements SINUS BRADYCARDIA OTHERWISE NORMAL ELECTROCARDIOGRAM COMPARED TO ECG 12/09/2019 20:35:16 NO SIGNIFICANT CHANGES Electronically Signed On 06-12-2023 14:39:41 CDT by Jonathan Padgett M.D.
[2023-06-12 14:35] LABS: Basophils Percent Auto 0.6 % (0.2-1.2); Eosinophils Absolute Auto 0.4 K/mm3 (0-0.3); Eosinophils Percent Auto 8.7 % (0-4.4); Hemoglobin 13.5 g/dL (12.0-15.0); Immature Granulocyte Absolute 0.01 K/mm3 (0.00-0.031); Immature Granulocyte Percent A 0.2 % (0-0.5); Lymphocytes Absolute Auto 1.88 K/mm3 (0.9-3.2); Lymphocytes Percent Auto 39.8 % (18.3-44.2); Mean Corpuscular HGB Conc 34.6 g/dl (32-36); Mean Corpuscular Hemoglobin 30.8 pg (26-34); Mean Platelet Volume 11.3 fl (7.4-10.4); Monocytes Absolute Auto 0.5 K/mm3 (0.1-0.6); Monocytes Percent Auto 10.2 % (2.6-8.5); Neutrophils Absolute Auto 1.9 K/mm3 (1.3-6.7); Neutrophils Percent Auto 40.5 % (45.5-73.1); Platelet Count Result 182 k/mm3 (150-375); Red Blood Count 4.38 M/mm3 (4.2-5.4); Red Cell Distribution Width 12.2 % (11.5-14.5); White Blood Count 4.7 K/mm3 (4.5-10.0)
[2023-06-12 14:38] LABS: Alanine Aminotransferase 23 U/L (6-35); Alkaline Phosphatase 66 U/L (38-126); Anion Gap 3 mmol/L (8-16); Aspartate Amino Transferase 31 U/L (14-36); Bilirubin,Total 0.6 mg/dL (0.2-1.3); Blood Urea Nitrogen 12 mg/dL (7-17); Calcium 9.1 mg/dL (8.4-10.2); Carbon Dioxide 31 mmol/L (22-30); Chloride 102 mmol/L (98-107); Estimated CRCL calculation 70 ml/min; Estimated Glomerular Filt Rate > 60; Glucose 87 mg/dL (65-110); Potassium 3.7 mmol/L (3.4-5.0); Sodium 136 mmol/L (137-145)
[2023-06-12 14:40] LABS: Prothrombin Time 13.4 Seconds (11.1-14.7)
[2023-06-12 14:41] LABS: Partial Thromboplastin Time 28.3 SECONDS (22.3-36.8)
[2023-06-12 15:18] LABS: Appearance Urine Turbid (Clear); Bacteria Urine None Seen /hpf; Bilirubin Urine Negative (Negative); Blood Urine Negative (Negative); Color Urine Yellow (Yellow); Glucose Urine UA Negative (Negative); Ketones Urine Negative (Negative); Leukocyte Esterase Ur Negative LEU/UL (Negative); Nitrate Urine Negative (Negative); Non Pathogenic Casts 0-2; Protein Urine Negative (Negative); RBC Urine 0-2 /hpf (0-2); Specific Grav Ur 1.016 (1.001-1.035); Squamous Epithelial Cell Urine None seen /hpf (Few); Urobilinogen Urine 0.2 mg/dL (<2.0); WBC Urine 0-5 /hpf
[2023-06-12 15:23] LABS: Add Urine Microscopic? YES
--- NOTE | 2023-06-12 16:07 | ED.SYNCOPE ---
HPI - Syncope General Chief Complaint: Altered Mental Status Stated Complaint: INCREASED CONFUSION Time Seen by Provider: 06/12/23 14:42 History of Present Illness HPI narrative: Patient is a 53-year-old female presenting with lightheadedness. States that she was at work when she felt lightheaded with tingling in her left arm. She denies chest pain or shortness of breath. She reports recent nasal congestion and cough. Reports chronic abdominal pain that is unchanged. No leg swelling, fevers or chills, headache, sore throat. No vomiting or diarrhea. Related Data Home Medications Medication Instructions Recorded Confirmed Zyrtec 10 mg DAILY 04/07/20 03/06/23 dextromethorphan-guaifenesin ER 60 1 tablet PO Q12H PRN 10/16/20 03/06/23 mg-1,200 mg tab,extend release,12hr (Mucinex DM) Allergies Allergy/AdvReac Type Severity Reaction Status Date / Time prochlorperazine Allergy Severe Anxiety Verified 04/29/23 09:02 doxycycline Allergy Intermediate mus Verified 04/29/23 09:27 ciprofloxacin Allergy Mild MUSCLE Verified 04/29/23 09:27 ACHES iodine Allergy Mild Unknown Verified 04/29/23 09:27 morphine Allergy Mild N/V Verified 04/29/23 09:27 Quinolones Allergy Mild Unknown Verified 04/29/23 09:27 tetracycline Allergy Mild MUSCLE ACHS Verified 04/29/23 09:27 promethazine Allergy Unknown Unknown Verified 04/29/23 09:27 sulfamethoxazole Allergy Unknown Unknown Verified 04/29/23 09:27 trimethoprim Allergy Unknown Unknown Verified 04/29/23 09:27 Contrast Media Allergy Severe IVP DYE Uncoded 03/20/23 08:37 CAUSES RESPIRATORY DISTRESS Review of Systems Review of Systems: All systems reviewed & are unremarkable except as noted in HPI and below PMFSH Past Medical History Medical History Acute gastritis without bleeding Duodenal ulcer, unspecified as acute or chronic, without hemorrhage or perforation Erosive (osteo)arthritis Esophageal reflux Fibromyalgia Hiatal hernia Migraine with aura and with status migrainosus, not intractable Mild intermittent asthma, uncomplicated Monoclonal gammopathy of unknown significance (MGUS) Nontoxic thyroid nodule Osteopenia Osteoporosis Osteoporosis Overweight (BMI 25.0-29.9) Primary narcolepsy without cataplexy Raynaud's syndrome 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ory of Alzheimer's disease Family history of glaucoma Cerebrovascular accident Family history of malignant neoplasm of breast Family history of lymphoma Family history of malignant neoplasm of ovary Father Hypertension Asthma Other Family history of migraine headaches Social History Social History Smoking status: Never smoker Alcohol intake: never Lack of Transportation: No Lack of Food: Never True Current Housing: I Have Housing Difficulty Paying Gas/Electric Bills: No Difficulty Paying for Meds: No Currently Unemployed: No Gender identity (if verbalized by the patient): Female Exam Narrative: GENERAL: Well-appearing, well-nourished, and in no acute distress. HEAD: Normocephalic, atraumatic. EYES: PERRLA and EOMI. ENT: +nasal congestion. Mucous membranes
[2023-06-12] MEDS: SODIUM CHLORIDE 0.9% IV 1,000 ML 999 ML IV CONT (16:44)
[2023-06-12 17:03] LABS: Troponin I < 0.012 ng/mL (0.000-0.034)
[2023-06-12 17:11] LABS: Influenza A QL RT-PCR Negative (Negative); Influenza B QL RT-PCR Negative (Negative); RSV RNA, RT-PCR Negative (Negative); SARS-CoV-2 RNA PCR Negative (Negative)
[2023-06-12 18:59] VITALS: BP 132/74; PULSE 60; RESP 15; O2SAT 100
== END 2023-06-12 19:01 | disposition home or self-care (01) ==
PROVIDERS: Student in an Organized Health Care Education/Training Program; Emergency Provider Emergency Medicine; PCP Family Medicine
DX: R42 Dizziness and giddiness (principal); E86.0 Dehydration; Z20.822 Contact with and (suspected) exposure to COVID-19; J45.20 Mild intermittent asthma, uncomplicated; I73.00 Raynaud's syndrome without gangrene; K21.9 Gastro-esophageal reflux disease without esophagitis; K44.9 Diaphragmatic hernia without obstruction or gangrene; M79.7 Fibromyalgia; M15.4 Erosive (osteo)arthritis; M81.0 Age-related osteoporosis without current pathological fracture; M85.80 Other specified disorders of bone density and structure, unspecified site; E55.9 Vitamin D deficiency, unspecified; Z90.49 Acquired absence of other specified parts of digestive tract; Z90.710 Acquired absence of both cervix and uterus
CPT/HCPCS: 36415; 71046; 80053; 81001; 84484; 85025; 85610; 85730; 87637; 93005; 96360; 96361; 99284; J7030

== ENCOUNTER 2023-08-11 12:00 | Emergency (ER) | payer OTHER, BC, SELFPAY ==
[2023-08-11 12:10] VITALS: BP 141/100; PULSE 89; RESP 16; TEMP 36.7; O2SAT 99
--- NOTE | 2023-08-11 12:18 | ED.URI ---
HPI - URI/Sore Throat General Chief Complaint: Upper Respiratory Infection Stated Complaint: Sinus Time Seen by Provider: 08/11/23 12:18 Source: patient, RN notes reviewed and old records reviewed Mode of arrival: ambulatory Limitations: no limitations History of Present Illness HPI Narrative: 53 year old female who presents to [facility] with complaints of 2 weeks duration of sinus issues with greenish drainage and cough with low grade fevers up to 100F.. Patient states she has history of some chronic sinus issues and she reports that she had some sinus surgery in the past. Patient reports fatigue not sleeping well, when questioned day of week month and year she was able to give correct responses. Patient reports that she has been taking Mucinex and some Robitussin for her symptoms. MD elicited complaint: cough, rhinorrhea and nasal congestion Pertinent past history: sinusitis and other (sinus surgery) Onset (ago): week(s) (2) Description of mucous: green Able to tolerate fluids by mouth: Yes Treatments prior to arrival: other (Mucinex and Robitussin) Related Data Home Medications Medication Instructions Recorded Confirmed Zyrtec 10 mg DAILY 04/07/20 08/12/23 Allergies Allergy/AdvReac Type Severity Reaction Status Date / Time prochlorperazine Allergy Severe Anxiety Verified 08/12/23 16:04 doxycycline Allergy Intermediate mus Verified 08/12/23 16:04 ciprofloxacin Allergy Mild MUSCLE Verified 08/12/23 16:04 ACHES iodine Allergy Mild Unknown Verified 08/12/23 16:04 morphine Allergy Mild N/V Verified 08/12/23 16:04 Quinolones Allergy Mild Unknown Verified 08/12/23 16:04 tetracycline Allergy Mild MUSCLE ACHS Verified 08/12/23 16:04 promethazine Allergy Unknown Unknown Verified 08/12/23 16:04 sulfamethoxazole Allergy Unknown Unknown Verified 08/12/23 16:04 trimethoprim Allergy Unknown Unknown Verified 08/12/23 16:04 Contrast Media Allergy Severe IVP DYE Uncoded 08/12/23 16:04 CAUSES RESPIRATORY DISTRESS Review of Systems Review of Systems: CONSTITUTIONAL: reports malaise, chills, sweats, reports fever up to 100F. EYES: Denies visual changes, redness, or discharge. ENT: Reports rhinorrhea, congestion, sinus pain, no otalgia and no sore throat. CARDIOVASCULAR: Denies chest pain, palpitations, or edema. RESPIRATORY: Reports cough.? Denies dyspnea. GASTROINTESTINAL: Denies abdominal pain, nausea, vomiting, diarrhea SKIN: Denies rash or itching. MUSCULOSKELETAL: Denies myalgia. NEUROLOGIC: Denies headache. All systems reviewed & are unremarkable except as noted in HPI and below PMFSH Past Medical History Medical History Acute gastritis without bleeding Duodenal ulcer, unspecified as acute or chronic, without hemorrhage or perforation Erosive (osteo)arthritis Esophageal reflux Fibromyalgia Hiatal hernia Migraine with aura and with status migrainosus, not intractable Mild intermittent asthma, uncomplicated Monoclonal gammopathy of unknown significance (MGUS) Nontoxic thyroid nodule Osteopenia Osteoporosis Osteoporosis Overweight (BMI 25.0-29.9) Primary narcolepsy without cataplexy Raynaud's syndrome 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
--- NOTE | 2023-08-11 12:29 | PC.NURSE ---
1215 informed Amaris PROFESSOR OF RELIGION of pt confusion. 1225 MELODIE horner in with pt
--- NOTE | 2023-08-11 12:55 | PC.NURSE ---
pt alert and oriented x3. able to state address of pharmacy of choice. discharge instructions reviewed and voiced understanding
== END 2023-08-11 12:53 | disposition home or self-care (01) ==
PROVIDERS: Emergency Provider Registered Nurse; PCP Family Medicine
DX: J32.9 Chronic sinusitis, unspecified (principal); K21.9 Gastro-esophageal reflux disease without esophagitis; M15.4 Erosive (osteo)arthritis; J45.909 Unspecified asthma, uncomplicated; M85.80 Other specified disorders of bone density and structure, unspecified site; M81.0 Age-related osteoporosis without current pathological fracture; I73.00 Raynaud's syndrome without gangrene
CPT/HCPCS: 99213; G0463

== ENCOUNTER 2023-08-31 15:29 | Emergency (ER) | payer OTHER, BC, SELFPAY ==
[2023-08-31 15:54] VITALS: BP 125/96; PULSE 100; RESP 16; TEMP 37.8; O2SAT 100
--- NOTE | 2023-08-31 17:17 | ED.GENADULT ---
HPI - General Adult General Chief complaint: Urogenital-Female Stated complaint: urinary issue Source: patient Mode of arrival: ambulatory Limitations: no limitations History of Present Illness HPI narrative: Patient presents for evaluation of multiple complaints. The first symptom she reported was dysuria. She states she has chronic urinary symptoms and was referred to physical therapy for bladder training. She developed some dysuria today. She also noticed some blood on the tissue when wiping. Denies any abdominal/suprapubic pain or other urinary symptoms. She has experienced some low back pain but has a hx of scoliosis and what sounds to be DDD. It does not sound like her low back pain at the present time is changed from her baseline pain level. She indicates she has experienced some left flank pain a few days ago but states she does not have any flank pain at the present time. She is also concerned about some right-sided ear pain and sore throat which started today. She is not sure whether she has been exposed to any sick contacts. She has also experienced a cough for several weeks. She has environmental allergies and has been exposed to some mold at work. She has an upcoming appointment next week with an sales technician. Related Data Home Medications Medication Instructions Recorded Confirmed ibandronate 150 mg tablet 150 mg PO DAILY 08/31/23 08/31/23 Allergies Allergy/AdvReac Type Severity Reaction Status Date / Time prochlorperazine Allergy Severe Anxiety Verified 08/31/23 16:08 doxycycline Allergy Intermediate mus Verified 08/31/23 16:08 ciprofloxacin Allergy Mild MUSCLE Verified 08/31/23 16:08 ACHES iodine Allergy Mild Unknown Verified 08/31/23 16:08 morphine Allergy Mild N/V Verified 08/31/23 16:08 Quinolones Allergy Mild Unknown Verified 08/31/23 16:08 tetracycline Allergy Mild MUSCLE ACHS Verified 08/31/23 16:08 promethazine Allergy Unknown Unknown Verified 08/31/23 16:08 sulfamethoxazole Allergy Unknown Unknown Verified 08/31/23 16:08 trimethoprim Allergy Unknown Unknown Verified 08/31/23 16:08 Contrast Media Allergy Severe IVP DYE Uncoded 08/31/23 16:08 CAUSES RESPIRATORY DISTRESS Review of Systems Review of Systems: CONSTITUTIONAL: Denies fever, chills, or sweats. EYES: Denies visual changes, redness, or discharge. ENT: Reports sore throat and right-sided ear pain. CARDIOVASCULAR: Denies chest pain, palpitations, or edema. RESPIRATORY: reports cough. Denies shortness of breath. GASTROINTESTINAL: Denies abdominal pain, nausea, vomiting, or diarrhea. GENITOURINARY: Reports dysuria and some blood on the tissue when wiping after urination. SKIN: Denies rash or itching. MUSCULOSKELETAL: Reports left flank pain recently, none currently. Reports chronic low back pain, unchanged from baseline. Denies joint pain NEUROLOGIC: Denies headache, numbness, dizziness, or weakness. PSYCHIATRIC: Denies anxiety or depression. [facility] Past Medical History Medical History Acute gastritis without bleeding Duodenal ulcer, unspecified as acute or chronic, without hemorrhage or perforation Erosive (osteo)arthritis Esophageal reflux Fibromyalgia Hiatal hernia Migraine with aura and with status migrainosus, not intractable Mild intermittent asthma, uncomplicated Monoclonal gammopathy of unknown significance (MGUS) Nontoxic thyroid nodule Osteopenia Osteoporosis Osteoporosis Overweight (BMI 25.0-29.9) Primary narcolepsy without cataplexy Raynaud's syndrome 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y of ERCP x2 History of hysterectomy Hx of cholecystectomy Hx of tonsillectomy Family History
== END 2023-08-31 17:23 | disposition home or self-care (01) ==
PROVIDERS: Emergency Provider Nurse Practitioner; PCP Family Medicine
DX: J02.9 Acute pharyngitis, unspecified (principal); R05.9 Cough, unspecified; R31.29 Other microscopic hematuria; Z79.899 Other long term (current) drug therapy
CPT/HCPCS: 81003; 87081; 87880; 99213; G0463

== ENCOUNTER 2023-09-18 09:15 | Emergency (ER) | payer OTHER, BC, SELFPAY ==
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
[2023-09-18 09:20] VITALS: BP 153/82; PULSE 91; RESP 16; TEMP 36.6; O2SAT 100
[2023-09-18 09:55] LABS: Basophils Percent Auto 0.6 % (0.2-1.2); Eosinophils Absolute Auto 0.1 K/mm3 (0-0.3); Eosinophils Percent Auto 1.8 % (0-4.4); Hematocrit 43.5 % (37.0-47.0); Hemoglobin 14.5 g/dL (12.0-15.0); Immature Granulocyte Absolute 0.02 K/mm3 (0.00-0.031); Immature Granulocyte Percent A 0.4 % (0-0.5); Lymphocytes Absolute Auto 1.46 K/mm3 (0.9-3.2); Lymphocytes Percent Auto 28.6 % (18.3-44.2); Mean Corpuscular HGB Conc 33.3 g/dl (32-36); Mean Corpuscular Hemoglobin 29.8 pg (26-34); Mean Corpuscular Volume 89.3 fl (80-100); Monocytes Absolute Auto 0.3 K/mm3 (0.1-0.6); Monocytes Percent Auto 6.1 % (2.6-8.5); Neutrophils Absolute Auto 3.2 K/mm3 (1.3-6.7); Neutrophils Percent Auto 62.5 % (45.5-73.1); Platelet Count Result 222 k/mm3 (150-375); Red Blood Count 4.87 M/mm3 (4.2-5.4); Red Cell Distribution Width 12.6 % (11.5-14.5); White Blood Count 5.1 K/mm3 (4.5-10.0)
[2023-09-18 10:07] LABS: Acetaminophen < 10 ug/mL (10-30); Ethanol < 10 mg/dL (<10); Salicylate < 1.0 mg/dL (2-20)
[2023-09-18 10:08] LABS: Alanine Aminotransferase 24 U/L (6-35); Albumin Level 4.2 g/dL (3.5-5.1); Alkaline Phosphatase 80 U/L (38-126); Anion Gap 5 mmol/L (8-16); Aspartate Amino Transferase 37 U/L (14-36); Bilirubin,Total 0.9 mg/dL (0.2-1.3); Blood Urea Nitrogen 10 mg/dL (7-17); Calcium 9.5 mg/dL (8.4-10.2); Carbon Dioxide 31 mmol/L (22-30); Chloride 105 mmol/L (98-107); Estimated CRCL calculation 68 ml/min; Estimated Glomerular Filt Rate > 60; Glucose 97 mg/dL (65-110); Potassium 4.1 mmol/L (3.4-5.0); Sodium 141 mmol/L (137-145)
[2023-09-18 12:11] LABS: SARS-CoV-2 RNA PCR Negative (Negative)
== END 2023-09-18 10:42 | disposition home or self-care (01) ==
PROVIDERS: Emergency Provider Nurse Practitioner; PCP Family Medicine
DX: T74.31XA Adult psychological abuse, confirmed, initial encounter (principal); F43.89 Other reactions to severe stress; Z56.89 Other problems related to employment; R03.0 Elevated blood-pressure reading, without diagnosis of hypertension; Z11.52 Encounter for screening for COVID-19; I73.00 Raynaud's syndrome without gangrene; J45.20 Mild intermittent asthma, uncomplicated; E55.9 Vitamin D deficiency, unspecified; D80.2 Selective deficiency of immunoglobulin A [IgA]; K21.9 Gastro-esophageal reflux disease without esophagitis; K83.4 Spasm of sphincter of Oddi; M15.4 Erosive (osteo)arthritis; M79.7 Fibromyalgia; M81.0 Age-related osteoporosis without current pathological fracture; M85.80 Other specified disorders of bone density and structure, unspecified site; Z90.49 Acquired absence of other specified parts of digestive tract; Z90.710 Acquired absence of both cervix and uterus; Y07.59 Other non-family member, perpetrator of maltreatment and neglect
CPT/HCPCS: 36415; 80053; 80307; 84443; 85025; 87635; 99284

== ENCOUNTER 2023-11-01 12:58 | Emergency (ER) | payer OTHER, BC, SELFPAY ==
--- NOTE | ~2023-11-01 | CT_ITS ---
EXAMINATION: CT abdomen pelvis wo con DATE: 11/01/2023 14:44 INDICATION: L flank pain, hematuria TECHNIQUE: Computed tomography (CT) of the abdomen and pelvis was performed without intravenous contr ast. Automated exposure control and iterative reconstruction technique were employed. The dose-length product was 435.29 mGy-cm. COMPARISON: 04/29/2023. FINDINGS: Lower thorax: Unremarkable Liver: Normal. Biliary/Gallbladder: Status post cholecystectomy No bile duct dilation. Minimal pneumobilia, likely s econdary to prior sphincterotomy, stable. Pancreas: No mass or duct dilation. Spleen: Normal. Adrenals:No mass. Kidneys: No suspicious mass, obstructing stone, or hydronephrosis. GI tract: No small or large bowel dilation. Small appendicolith in an otherwise normal-appearing appe ndix. Mesentery/Peritoneum: No ascites, mass, or free air. Retroperitoneum: No mass. Pelvis: Pelvic organs are within normal limits. Soft Tissues: Uncomplicated appearing fat-containing periumbilical hernia, with rectus muscle diastas es, without inflammation or fluid. Small supraumbilical midline fat-containing umbilical hernia with mild inflammatory change, unchanged. Bones: No acute osseous finding. IMPRESSION: Mild inflammation of a small fat-containing supraumbilical midline abdominal wall hernia, similar to the prior study. Otherwise, no acute abdominopelvic process detected Reviewed, dictated and finalized at location K. TRIMMING MACHINE OPERATOR IMPRESSION: Mild inflammation of a small fat-containing supraumbilical midline abdominal wa ll hernia, similar to the prior study. Otherwise, no acute abdominopelvic process detected
[2023-11-01 13:16] VITALS: BP 119/76; PULSE 85; RESP 16; TEMP 36.6; O2SAT 97
[2023-11-01 13:32] LABS: Hematocrit 46.3 % (37.0-47.0); Hemoglobin 15.6 g/dL (12.0-15.0); Mean Corpuscular HGB Conc 33.7 g/dl (32-36); Mean Corpuscular Hemoglobin 29.9 pg (26-34); Mean Corpuscular Volume 88.7 fl (80-100); Mean Platelet Volume 10.8 fl (7.4-10.4); Platelet Count Result 224 k/mm3 (150-375); Red Blood Count 5.22 M/mm3 (4.2-5.4); Red Cell Distribution Width 12.1 % (11.5-14.5); White Blood Count 12.4 K/mm3 (4.5-10.0)
[2023-11-01 13:40] LABS: Appearance Urine Turbid (Clear); Bacteria Urine None Seen /hpf; Bilirubin Urine 1+ (Negative); Blood Urine 3+ (Negative); Color Urine Dark Yellow (Yellow); Glucose Urine UA Negative (Negative); Ketones Urine Trace mg/dL (Negative); Leukocyte Esterase Ur 3+ LEU/UL (Negative); Need Manual Microscopic Reviewed; Nitrate Urine Negative (Negative); Non Pathogenic Casts 0-2; Protein Urine 2+ mg/dL (Negative); RBC Urine >100 /hpf (0-2); Specific Grav Ur 1.023 (1.001-1.035); Squamous Epithelial Cell Urine None seen /hpf (Few); WBC Urine >100 /hpf
[2023-11-01 13:41] LABS: Add Urine Microscopic? YES
[2023-11-01 13:48] LABS: Alanine Aminotransferase 24 U/L (6-35); Albumin Level 4.7 g/dL (3.5-5.1); Alkaline Phosphatase 84 U/L (38-126); Anion Gap 9 mmol/L (8-16); Aspartate Amino Transferase 32 U/L (14-36); Bilirubin,Total 0.9 mg/dL (0.2-1.3); Blood Urea Nitrogen 11 mg/dL (7-17); Carbon Dioxide 30 mmol/L (22-30); Chloride 102 mmol/L (98-107); Estimated Glomerular Filt Rate > 60; Glucose 98 mg/dL (65-110); Potassium 3.8 mmol/L (3.4-5.0); Sodium 141 mmol/L (137-145)
[2023-11-01 14:32] VITALS: BP 127/84; PULSE 79; RESP 18; TEMP 36.9; O2SAT 100
[2023-11-01] MEDS: KETOROLAC 15 MG/ML VIAL (*BKC) IV PUSH (15:33)
[2023-11-01 15:39] VITALS: BP 116/75; PULSE 65; RESP 18; O2SAT 100
--- NOTE | 2023-11-01 18:11 | ED.FEMALEGU ---
HPI - Female Genitourinary General Chief complaint: GI Bleed Stated complaint: pelvic pain Time Seen by Provider: 11/01/23 13:09 History of Present Illness HPI Narrative: Patient with history of UTIs presents here with several days of dysuria, with some left flank pain and some suprapubic discomfort, no nausea or vomiting. She has also been having multiple stools a day and occasionally when she wipes has noticed some blood. Related Data Allergies Allergy/AdvReac Type Severity Reaction Status Date / Time ibandronate sodium Allergy Severe esophagitis Verified 10/30/23 13:58 prochlorperazine Allergy Severe Anxiety Verified 10/30/23 13:58 doxycycline Allergy Intermediate mus Verified 10/30/23 13:58 ciprofloxacin Allergy Mild MUSCLE Verified 10/30/23 13:58 ACHES iodine Allergy Mild Unknown Verified 10/30/23 13:58 morphine Allergy Mild N/V Verified 10/30/23 13:58 Quinolones Allergy Mild Unknown Verified 10/30/23 13:58 tetracycline Allergy Mild MUSCLE ACHS Verified 10/30/23 13:58 promethazine Allergy Unknown Unknown Verified 10/30/23 13:58 sulfamethoxazole Allergy Unknown Unknown Verified 10/30/23 13:58 trimethoprim Allergy Unknown Unknown Verified 10/30/23 13:58 Contrast Media Allergy Severe IVP DYE Uncoded 10/30/23 13:58 CAUSES RESPIRATORY DISTRESS Review of Systems Review of Systems: CONST: No fever. HEENT: No sore throat C/V: No chest pain RESP: No cough GI: Possible bright red blood when wiping : dysuria. M/S: No joint pain. SKIN: No rash. NEURO: [No headache or focal numbness or weakness] PSYCH: [No depression] [facility] Past Medical History Medical History Acute gastritis without bleeding Duodenal ulcer, unspecified as acute or chronic, without hemorrhage or perforation Encounter for immunization Erosive (osteo)arthritis Esophageal reflux Fibromyalgia Hiatal hernia Migraine with aura and with status migrainosus, not intractable Mild intermittent asthma, uncomplicated Monoclonal gammopathy of unknown significance (MGUS) Nontoxic thyroid nodule Osteopenia Osteoporosis Osteoporosis Overweight (BMI 25.0-29.9) Primary narcolepsy without cataplexy Raynaud's syndrome 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 Thyroid nodule Unspecified vitamin D deficiency Surgical History Surgical History H/O rectal sphincterotomy H/O sinus surgery History of bladder surgery History of ERCP x2 History of hysterectomy Hx of cholecystectomy Hx of tonsillectomy Family History Family History Mother Family history of osteoporosis Hypertension Family history of arthritis Depression Family history of psoriasis Grandparent Family history of osteoporosis Hypertension Family history of malignant neoplasm Family history of chronic obstructive pulmonary disease Family history of Alzheimer's disease Family history of glaucoma Cerebrovascular accident Family history of malignant neoplasm of breast Family history of lymphoma Family history of malignant neoplasm of ovary Father Hypertension Asthma Other Family history of migraine headaches Social History Social History Smoking status: Never smoker Alcohol intake: never Substance use: never Lack of Transportation: No Lack of Food: Never True Current Housing: I Have Housing Concerned About Future Housing: No Difficulty Paying Gas/Electric Bills: No Difficulty Paying for Meds: No Currently Unemployed: No Gender identity (if verbalized by the patient): Female Exam Narrative: EXAMINATION OF ORGAN SYSTEMS/BODY AREAS: Constitutional: Vital signs per nursing GENERAL:[No acute distress, non-toxic appearing.] HEAD: Normal with no signs of head trauma. EYES: EOMI
== END 2023-11-01 15:40 | disposition home or self-care (01) ==
PROVIDERS: Emergency Provider Emergency Medicine; PCP Family Medicine
DX: N39.0 Urinary tract infection, site not specified (principal); J45.20 Mild intermittent asthma, uncomplicated; I73.00 Raynaud's syndrome without gangrene; E66.3 Overweight; E55.9 Vitamin D deficiency, unspecified; D80.2 Selective deficiency of immunoglobulin A [IgA]; D47.2 Monoclonal gammopathy; M19.90 Unspecified osteoarthritis, unspecified site; M79.7 Fibromyalgia; M85.80 Other specified disorders of bone density and structure, unspecified site; M81.0 Age-related osteoporosis without current pathological fracture; K44.9 Diaphragmatic hernia without obstruction or gangrene; K21.9 Gastro-esophageal reflux disease without esophagitis; Z90.710 Acquired absence of both cervix and uterus; Z90.49 Acquired absence of other specified parts of digestive tract; K42.9 Umbilical hernia without obstruction or gangrene
CPT/HCPCS: 36415; 74176; 80053; 81001; 85025; 87086; 87088; 96365; 96375; 99284; J0696; J1885

== ENCOUNTER 2024-10-10 07:10 | Emergency (ER) | payer BC, SELFPAY ==
[2024-10-10 07:23] VITALS: BP 133/91; PULSE 93; RESP 18; TEMP 36.8; O2SAT 100
--- NOTE | 2024-10-10 07:56 | PC.NURSE ---
patient given water per verbal from provider to help patient provide a urine sample
--- NOTE | 2024-10-10 08:24 | ED_ITS ---
HPI - General Adult General Chief complaint: Urogenital-Female Stated complaint: hematuria and polyuria for a couple days Time Seen by Provider: 10/10/24 07:20 History of Present Illness HPI narrative: this is a 54-year-old female with early dementia presenting with urinary tract symptoms. Starting today she has had dysuria, urinary urgency and frequency. She denies fevers chills nausea vomiting or diarrhea. No flank pain. Related Data Home Medications ?Medication ?Instructions ?Recorded ?Confirmed ?Last Taken ?Type epinephrine 0.3 mg/0.3 mL subcut 01/07/24 01/07/24 Unknown History injection, auto-injector Allergies Allergy/AdvReac Type Severity Reaction Status Date / Time ibandronate sodium Allergy Severe esophagitis Verified 02/02/24 14:24 prochlorperazine Allergy Severe Anxiety Verified 02/02/24 14:24 doxycycline Allergy Intermediate mus Verified 02/02/24 14:24 ciprofloxacin Allergy Mild MUSCLE Verified 02/02/24 14:24 ACHES iodine Allergy Mild Unknown Verified 02/02/24 14:24 morphine Allergy Mild N/V Verified 02/02/24 14:24 Quinolones Allergy Mild Unknown Verified 02/02/24 14:24 tetracycline Allergy Mild MUSCLE ACHS Verified 02/02/24 14:24 promethazine Allergy Unknown Unknown Verified 02/02/24 14:24 sulfamethoxazole Allergy Unknown Unknown Verified 02/02/24 14:24 trimethoprim Allergy Unknown Unknown Verified 02/02/24 14:24 Contrast Media Allergy Severe IVP DYE Uncoded 02/02/24 14:24 CAUSES RESPIRATORY DISTRESS PMFSH Past Medical History Medical History Thyroid nodule Encounter for immunization Erosive (osteo)arthritis Osteoporosis Sphincter of Oddi dysfunction Osteoporosis Overweight (BMI 25.0-29.9) Osteopenia Hiatal hernia Acute gastritis without bleeding Duodenal ulcer, unspecified as acute or chronic, without hemorrhage or perforation Esophageal reflux Fibromyalgia Migraine with aura and with status migrainosus, not intractable Mild intermittent asthma, uncomplicated Monoclonal gammopathy of unknown significance (MGUS) 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 Raynaud's syndrome Selective deficiency of immunoglobulin a [iga] Unspecified vitamin D deficiency Surgical History Surgical History Hx of tonsillectomy H/O sinus surgery History of bladder surgery History of hysterectomy Hx of cholecystectomy H/O rectal sphincterotomy History of ERCP x2 Family History Family History Mother Family history of osteoporosis Hypertension Family history of arthritis Depression Family history of psoriasis Grandparent Family history of osteoporosis Hypertension Family history of malignant neoplasm Family history of chronic obstructive pulmonary disease Family history of Alzheimer's disease Family history of glaucoma Cerebrovascular accident Family history of malignant neoplasm of breast Family history of lymphoma Family history of malignant neoplasm of ovary Father Hypertension Asthma Other Family history of migraine headaches Social History Social History Smoking status: Never smoker Alcohol intake: never Substance use: never Lack of Transportation: No Lack of Food: Never True Current Housing: I Have Housing Concerned About Future Housing: No Difficulty Paying Gas/Electric Bills: No Difficulty Paying for Meds: No Currently Unemployed: No Gender identity (if verbalized by the patient): Female Exam Narrative: APPEARANCE: No apparent distress. Head: atraumatic. EYES: EOMI, NOSE: Atraumatic NECK: Trachea midline RESPIRATORY: No increased rate of breathing CARDIOVASCULAR: RRR, ABDOMINAL: Non-distended Soft nontender no guarding rebound, no CVA tenderness MUSCULOSKELETAl: No obvious deformities NEURO: Alert. Moving 4/4 extremities SKIN:: Warm, dry. Normal color PSYCHIATRIC: Normal affect Course Vital Signs Vital signs: Vital Signs Temperature 98.2 F 10/10/24 07:23 Pulse Rate 93 10/10/24 07:23 Respiratory Rate 18 10/10/24 07:23 Blood Pressure 133/91 H 10/10/24 07:23 Pulse Oximetry 100 10/10/24 07:23 Oxygen Delivery Room Air 10/10/24 07:23 Temperature 98.2 F 10/10/24 07:23 Pulse Rate 93 10/10/24 07:23 Respiratory Rate 18 10/10/24 07:23 Blood Pressure 133/91 H 10/10/24 07:23 Pulse Oximetry 100 10/10/24 07:23 Oxygen Delivery Room Air 10/10/24 07:23 Medical Decision Making MDM Narrative Medical decision making narrative: -Course: 54-year-old female presenting with urinary tract symptoms. UA indicative infection. Otherwise she is well appearing with stable vital signs. no flank pain, CVA tenderness or significant discomfort to make me think she has kidney stone. Given a dose of IM Rocephin here in the emergency department and discharged on cefdinir. Given return precautions and primary care follow-up Vital Signs Vital Signs: Vital Signs Temperature 98.2 F 10/10/24 07:23 Pulse Rate 93 10/10/24 07:23 Respiratory Rate 18 10/10/24 07:23 Blood Pressure 133/91 H 10/10/24 07:23 Pulse Oximetry 100 10/10/24 07:23 Oxygen Delivery Room Air 10/10/24 07:23 Temperature 98.2 F 10/10/24 07:23 Pulse Rate 93 10/10/24 07:23 Respiratory Rate 18 10/10/24 07:23 Blood Pressure 133/91 H 10/10/24 07:23 Pulse Oximetry 100 10/10/24 07:23 Oxygen Delivery Room Air 10/10/24 07:23 Lab Data Labs: Lab Results 10/10/24 Range/Units 08:20 Urine Color Dark yellow (Yellow) Urine Appearance Turbid H (Clear) Urine pH 5.0 (5.0-9.0) Ur Specific [place] 1.029 (1.001-1.035) Urine Protein 2+ H (Negative) mg/dL Urine Glucose (UA) Negative (Negative) mg/dL Urine Ketones 2+ H (Negative) mg/dL Ur Blood (Man) 3+ H (Negative) Urine Nitrate Negative (Negative) Urine Bilirubin Negative (Negative) Urine Urobilinogen 1.0 (<2.0) mg/dL Leukocyte Esterase Rfl 2+ H (Negative) ANABEL/UL Urine RBC >100 H (0-2) /hpf Urine WBC >100 H (0-3) /hpf Ur Squamous Epith Cells Occasional (Few) /hpf Urine Bacteria None seen /hpf Urine Casts 0-2 Urine Yeast (Budding) Present H (None) /hpf Discharge Plan Discharge Clinical Impression: UTI (urinary tract infection) Patient Disposition: Home, Self-Care Condition: Stable Instructions: Antibiotic Form, Urinary Tract Infection in Women (DC) Additional Instructions: You were seen in the emergency department for a urinary tract infection. Please take the antibiotics as instructed. Please follow-up with your primary care physician in 3-5 days for follow-up. Return to the ED if you develop fevers, severe flank pain, suprapubic pain or feel your condition is getting worse. Patient Language: Spanish Prescriptions: New cefdinir 300 mg capsule 300 mg PO Q12H Qty: 14 0RF No Action epinephrine 0.3 mg/0.3 mL auto-injector subcut fluoxetine [Prozac] 20 mg capsule 20 mg PO DAILY Qty: 90 0RF cefpodoxime 200 mg tablet 200 mg PO BID Qty: 20 0RF Rx Instructions: must administer with a meal/food Follow-up/Referrals: Jonathan Amado MD [Primary Care Provider] - 1 Week (UTI f/u)
[2024-10-10 09:52] LABS: Add Urine Microscopic? YES; Appearance Urine Turbid (Clear); Bacteria Urine None Seen /hpf; Bilirubin Urine Negative (Negative); Blood Urine 3+ (Negative); Budding Yeast Urine Present /hpf; Color Urine Dark Yellow (Yellow); Glucose Urine UA Negative (Negative); Ketones Urine 2+ mg/dL (Negative); Leukocyte Esterase Ur 2+ LEU/UL (Negative); Nitrate Urine Negative (Negative); Non Pathogenic Casts 0-2; Protein Urine 2+ mg/dL (Negative); RBC Urine >100 /hpf (0-2); Specific Grav Ur 1.029 (1.001-1.035); Squamous Epithelial Cell Urine Occasional /hpf (Few); WBC Urine >100 /hpf (0-3)
[2024-10-10 10:13] VITALS: BP 124/99; PULSE 83; RESP 18; O2SAT 100
[2024-10-10] MEDS: cefTRIAXone 1 GM VIAL IM (10:22)
[2024-10-10] MEDS: LIDOCAINE 1% LOCAL INJ 10 ML VIAL (10:28)
--- OUTSIDE RECORDS SUMMARY | 2024-10-17 03:04 | XMS_ITS | Clinical Summary ---
Author Organization [facility] [employer] Address [address] [place] [address] Care Team Providers Care Video Production Coordinator Name Role Phone Jonathan Amado MD Unavailable [phone] Jonathan Amado MD Primary Care Provider [phone] Source Comments [facility],non-owned Affiliates and Associated Physician Practices is amultiple site organization consisting of ambulatory clinics and hospital sitesin [place], [place], [place] and [place]. This disclosure is being madepursuant to the Care Everywhere program and may not contain all information available regarding this patient. Last updated 18.[facility] [employer] Allergies Active Allergy Reactions Criticality Noted Date Comments Ambrosia Artemisiifolia, Ragweed Unknown 01/28/2023 ragweed - allergy Ciprofloxacin Myalgias 06/24/2013 Ciprofloxacin Rash Medium 04/24/2012 Compazine Syrup Anxiety Low 04/24/2012 Contrast-Iodinated Agents For Ct/Other Anaphylaxis,Other High 06/24/2013 Tenderness at infusion site Contrast-Iodinated Agents For Ct/Other Myalgias Medium 10/08/2011 And joint pain after Doxycycline Rash Medium 04/24/2012 Gabapentin Headache Low 05/29/2019 Levaquin Rash Medium 04/24/2012 Morphine Nausea and/or Vomiting Medium 10/08/2011 Sulfamethoxazole W-Trimethoprim Urticaria,Rash Low 06/24/2013 Sulfa Drugs Rash,Myalgias Medium 04/24/2012 Medications * Be aware that medications may not be up to date on this document. Alwaysverify current medications with the patient. Medication Sig Dispensed Refills Start Date End Date Status fluticasone propionate (FLONASE) 50 MCG/ACT nasal spray [place] 2 (two) sprays into each nostril once daily Active ergocalciferol (DRISDOL) 1.25 MG (56159 UT) capsule Take 1 (one) capsule by mouth every 30 days Active cetirizine (ZYRTEC) 10 MG tablet Take 1 (one) tablet by mouth once daily as needed Active Pseudoephedrine HCl (SUDAFED PO) Take 1 tablet by mouth as needed Active hydroxychloroquin e (PLAQUENIL) 200 MG tablet Take 2 (two) tablets by mouth once daily 09/02/2021 Active estradiol (Estrace) 0.1 MG/GM vaginal cream Insert 2 g into the vagina Two times a week 07/18/2022 Active Budesonide Add 1 capsule of 0.5mg or 0.6mg to 240ml saline (patient may mix own saline). Irrigate half in each nostril twice daily. 60 capsule 11 01/22/2023 Active azelastine (Astepro) 205.5 MCG/SPRAY nasal spray [place] 2 (two) sprays into each nostril 2 times daily 90 mL 4 01/28/2023 Active EPINEPHrine (Epipen) 0.3 MG/0.3ML auto-injector pen Inject 0.3 mL into muscle once as needed for Anaphylaxis 0.6 mL 1 09/15/2023 Active ibandronate (Boniva) 150 MG tablet Take 1 (one) tablet by mouth every 30 days 10/23/2023 Active FLUoxetine (PROzac) 20 MG capsule Take 1 (one) capsule by mouth once daily 10/30/2023 Active allergy injection Per [facility] Otolaryngology protocol Active fexofenadine (Cassie) 180 MG tablet Take 1 (one) tablet by mouth once daily Active Vitamin D, Ergocalciferol, 43930 units CAPS Take 1 (one) capsule by mouth every [address] Yun prescibed once weekly for eight weeks Active cefdinir (Omnicef) 300 MG capsule Take 1 (one) capsule by mouth 2 times daily 10/10/2024 Active Active Problems Problem Noted Date Diagnosed Date FABIAN positive 03/01/2019 Urticaria 03/01/2019 Elevated CK 03/01/2019 Fatigue 03/01/2019 Pain in left knee 01/24/2017 Myalgia 01/24/2017 Allergic rhinitis 07/23/2016 Overview (01/12/2018): ICD-10 update 2015 Fibromyalgia 03/06/2016 Pain in joint 02/05/2016 Other muscle spasm 02/05/2016 Other specified abnormal immunological findings in serum 02/05/2016 Chronic frontal sinusitis 03/10/2014 Back pain 09/08/2013 Fibromyalgia 09/08/2013 Chronic sinusitis 10/08/2011 Encounters Date Type Department Care Team Description 10/12/2024 3:20 PM UPPER INSPECTOR Clinical Support [facility] [address] [place] [phone] Allergic rhinitis due to pollen, unspecified seasonality 10/12/2024 Travel 10/04/2024 9:20 AM UPPER INSPECTOR Clinical Support [facility] [address] [place] [phone] Allergic rhinitis due to pollen, unspecified seasonality 10/04/2024 Travel 09/28/2024 3:20 PM UPPER INSPECTOR Clinical Support [facility] [address] [place] [phone] Allergic rhinitis due to pollen, unspecified seasonality 09/28/2024 Travel 09/21/2024 3:40 PM UPPER INSPECTOR Clinical Support [facility] [address] [place] [phone] Allergic rhinitis due to pollen, unspecified seasonality 09/21/2024 Travel 09/14/2024 3:40 PM UPPER INSPECTOR Clinical Support [facility] [address] [place] [phone] Allergic rhinitis due to pollen, unspecified seasonality 09/14/2024 Travel 09/07/2024 3:40 PM UPPER INSPECTOR Clinical Support [facility] [address] [place] [phone] Allergic rhinitis due to pollen, unspecified seasonality 09/07/2024 Travel 08/31/2024 3:40 PM UPPER INSPECTOR Clinical Support [facility] [address] [place] [phone] Allergic rhinitis due to pollen, unspecified seasonality 08/31/2024 Travel 08/24/2024 3:40 PM UPPER INSPECTOR Clinical Support [facility] [address] [place] [address] Allergic rhinitis due to pollen, unspecified seasonality 08/24/2024 Travel 08/17/2024 3:40 PM UPPER INSPECTOR Clinical Support [facility] [address] [place] [address] Allergic rhinitis due to pollen, unspecified seasonality 08/17/2024 Travel 08/10/2024 3:40 PM CDT Clinical Support [facility] [address] [place] [phone] Allergic rhinitis due to pollen, unspecified seasonality 08/10/2024 Travel 08/03/2024 3:40 PM CDT Clinical Support [facility] [address] [place] [phone] Allergic rhinitis due to pollen, unspecified seasonality 08/03/2024 Travel 07/27/2024 3:40 PM CDT Clinical Support [facility] [address] [place] [phone] Allergic rhinitis due to pollen, unspecified seasonality 07/27/2024 Travel 07/20/2024 3:40 PM CDT Clinical Support [facility] [address] [place] [phone] Allergic rhinitis due to pollen, unspecified seasonality 07/20/2024 Travel from Last 3 Months Immunizations Name Administration Dates Next Due FLU VACCINE TRI IIV3 SPLIT PF IM (FLUVIRIN) 07/13 INFLUENZA 07/03/2020 INFLUENZA VACCINE, QUADR. (F LUZONE; FLULAVAL; FLUARIX; AFLURIA QUADRIVALENT; 6MO+), 0.5 ML (IIV4) 07/23/2018 PNEUMOCOCCAL PPV, HISTORIC VACCINE 06/29/2020 TDAP (7yrs+) 06/22/2018,10/29/2017 iNFLUENZA VACCINE, RECOM-WILSON, QUADR. (FLUBLOCK QUADRIVALENT; 18Y+) (RIV4) 08/16/2021,09/17/2019 Family History Medical History Relation Name Comments None Known Brother Hypertension Father Status: Alive Arthritis - Osteo Mother Cspine Psoriasis Mother Status: Alive Relation Name Status Comments Brother Father Mother Social History Tobacco Use Types Packs/Day Years Used Date Smoking Tobacco: Never Smokeless Tobacco: Never Tobacco Cessation:Counseling Given: Not Answered Alcohol Use Standard Drinks/Week Comments No 0 (1 standard drink = 0.6 oz pur e alcohol) Sex and Gender Information Value Date Recorded Sex Assigned at Not on file Gender Identity Not on file Sexual Orientation Not on file Last Filed Vital Signs Vital Sign Reading Time Taken Comments Blood Pressure 106/75 07/06/2024 3:18 PM CDT Pulse 72 07/06/2024 3:18 PM CDT Temperature 37 ??C (98.6 ??F) 07/25/2022 3:56 PM CDT Respiratory Rate 16 07/25/2017 4:31 PM CDT Oxygen Saturation - - Inhaled Oxygen Concentration - - Weight 72 kg (158 lb 12.8 oz) 07/06/2024 3:18 PM CDT Height 162.6 cm (5' 4 ) 07/06/2024 3:18 PM CDT Body Mass Index 27.26 07/06/2024 3:18 PM CDT Plan of Treatment Upcoming Encounters Date Type Department Care Team (Late st Contact Info) Description 10/19/2024 3:40 PM UPPER INSPECTOR Clinical Support [facility] [address] [place] [phone] 10/26/2024 3:20 PM UPPER INSPECTOR Clinical Support [facility] [address] [place] [phone] 11/02/2024 3:40 PM UPPER INSPECTOR Clinical Support [facility] [address] [place] [phone] 11/09/2024 3:20 PM UPPER INSPECTOR Clinical Support [facility] [address] [place] [phone] Health Maintenance Due Date Last Done Comments COLOGUARD (AGES 45-75) - COLON CA SCREENING 1971 COLON MONITORING 1971 COLONOSCOPY - COLON CA SCREENING 1971 CT COLONOGRAPHY - COLON CA SCREENING 1971 Colorectal Cancer Screening 1971 FIT - COLON CA SCREENING 1971 FLEX SIG - COLON CA SCREENING 1971 LIPID TESTING 1971 PAP SMEAR 1971 HIV SCREENING 1986 HEPATITIS B VACCINE (1 of 3 - 19+ 3-dose series) 1990 ZOSTER VACCINE (1 of 2) 2021 SCREENING FOR DIABETES 03/05/2022 , 07/26/2017, 02/07/2017, Additional history exists MAMMOGRAM 12/25/2023 12/24/2021, 11/13, 11/01/2019, Additional history exists COVID-19 VACCINE ( season) 2024 07/17/2021, 12/29/2020, 12/08/2020 INFLUENZA VACCINE (#1) 2024 , 07/03/2020, 09/17/2019, Additional history exists DEPRESSION SCREENING 10/13/2024 DTAP/TDAP/TD VACCINES (3 - Td or Tdap) 06/22/2028 06/22/2018, 10/29/2017 HEPATITIS C SCREENING Completed 02/05/2016 PNEUMOCOCCAL VACCINE Aged Out 06/29/2020 No long er eligible based on patient's age to complete this topic HIB VACCINE Aged Out No longer eligi ble based on patient's age to complete this topic HPV VACCINE Aged Out No longer eligi ble based on patient's age to complete this topic MENINGOCOCCAL VACCINE Aged Out No jovanny felipe eligible based on patient's age to complete this topic Procedures Procedure Name Priority Date/Time Associated Diagnosis Comments COMPREHENSIVE METABOLIC PANEL Routine 03/05/2019 10:01 AM CDT Fibromyalgia FABIAN positive HEPATITIS C ANTIBODY Routine 02/05/2016 11:21 AM CDT from Last 3 Months or Most Recently Relevant to Health Maintenance Results * COMPREHENSIVE METABOLIC PANEL (03/05/2019 10:01 AM CDT) Glucose 88 65 - 99 mg/dL [facility] INSURANCE BILL BUN 9 6 - 24 mg/dL [facility] INSURANCE BILL Creatinine 0.96 0.57 - 1.00 mg/dL [facility] INSURANCE BILL eGFR by MDRD 71 >59 mL/min/1.7 3 [facility] INSURANCE BILL eGFR by MDRD 81 >59 mL/min/1.7 3 [facility] INSURANCE BILL BUN/Creatinine Ratio 9 9 - 23 [facility] INSURANCE BILL Sodium 143 134 - 144 mmol/L [facility] INSURANCE BILL Potassium 4.6 3.5 - 5.2 mmol/L [facility] INSURANCE BILL Chloride 104 96 - 106 mmol/L [facility] INSURANCE BILL CO2 26 20 - 29 mmol/L [facility] INSURANCE BILL Calcium 9.6 8.7 - 10.2 mg/dL [facility] INSURANCE BILL Protein Total 6.1 6.0 - 8.5 g/dL [facility] INSURANCE BILL Albumin 4.0 3.5 - 5.5 g/dL [facility] INSURANCE BILL Globulin Total 2.1 1.5 - 4.5 g/dL [facility] INSURANCE BILL Albumin/Globulin Ratio 1.9 1.2 - 2.2 [facility] INSURANCE BILL Bilirubin Total 0.8 0.0 - 1.2 mg/dL [facility] INSURANCE BILL Alkaline Phosphatase 57 39 - 117 IU/L [facility] INSURANCE BILL AST 32 0 - 40 IU/L [facility] INSURANCE BILL ALT 29 0 - 32 IU/L [facility] INSURANCE BILL Comment:FASTING Blood BLOOD SPECIMEN / Unknown 03/05/2019 10:01 AM CDT 03/05/2019 Narrative Resulting Agency Comment Lab Testing performed at: [facility] ??[facility] [id number] Sarika Jerry [facility] - CHEMISTRY LISA THAYER [facility] INSURANCE BILL [address] [place] [address] * HEPATITIS C ANTIBODY (02/05/2016 11:21 AM CDT) Hepatitis C Virus Antibody <0.1 0.0 - 0.9 s/co ratio [facility] ([place]) Comment: ?Negative: ? < 0.8 ? Indeterminate: 0.8 - 0.9 ?Positive: ? > 0.9 The CDC recommends that a positive HCV antibody result be followed up with a HCV Nucleic Acid Amplification test (115447). Blood specimen (specimen) BLOOD SPECIMEN / Unknown 02/05/2016 11:21 AM CDT 02/05/2016 4:02 PM CDT Narrative [facility] ([place]) - 02/13/2016 11:20 AM CDT Performed at: ??01 - [facility] [address], [place], [place] ??[id number] Director Agricultural Services: Darwin Hunter PhD, Phone: ??[phone] Sarika Jerry [facility] - CHEMISTRY LISA THAYER [facility] ([place]) from Last 3 Months or Most Recently Relevant to Health Maintenance Care Teams Video Production Coordinator Relationship Specialty Start Date End Date Jonathan Amado MD [address] [place] [phone] PCP - General Family Medicine 09/15/23 Jonathan Amado MD [address] [place] [phone] 06/24/13
--- OUTSIDE RECORDS SUMMARY | 2024-10-17 03:04 | XMS_ITS | Referral Summary ---
Author Organization [facility] Address [address] [place] [address] Care Team Providers Care Adjunct Trainer Name Role Phone Jonathan Amado MD Unavailable [phone] Jonathan Amado MD Primary Care Provider [phone] Source Comments [facility],non-owned Affiliates and Associated Physician Practices is amultiple site organization consisting of ambulatory clinics and hospital sitesin [place], [place], [place] and [place]. This disclosure is being madepursuant to the Care Everywhere program and may not contain all information available regarding this patient. Last updated 18.[facility] Encounters Date Type Department Care Team Description 10/12/2024 Travel 10/12/2024 3:20 PM CHEESE PRODUCTION SUPERVISOR Clinical Support [facility] [address] [place] [phone] Allergic rhinitis due to pollen, unspecified seasonality 10/04/2024 Travel 10/04/2024 9:20 AM CHEESE PRODUCTION SUPERVISOR Clinical Support [facility] [address] [place] [phone] Allergic rhinitis due to pollen, unspecified seasonality 09/28/2024 Travel 09/28/2024 3:20 PM CHEESE PRODUCTION SUPERVISOR Clinical Support [facility] [address] [place] [phone] Allergic rhinitis due to pollen, unspecified seasonality 09/21/2024 Travel 09/21/2024 3:40 PM CHEESE PRODUCTION SUPERVISOR Clinical Support [facility] [address] [place] [phone] Allergic rhinitis due to pollen, unspecified seasonality 09/14/2024 Travel 09/14/2024 3:40 PM CHEESE PRODUCTION SUPERVISOR Clinical [facility] [address] [place] [phone] Allergic rhinitis due to pollen, unspecified seasonality 09/07/2024 Travel 09/07/2024 3:40 PM CHEESE PRODUCTION SUPERVISOR Clinical Support [facility] [address] [place] [phone] Allergic rhinitis due to pollen, unspecified seasonality 08/31/2024 Travel 08/31/2024 3:40 PM CHEESE PRODUCTION SUPERVISOR Clinical [facility] [address] [place] [phone] Allergic rhinitis due to pollen, unspecified seasonality 08/24/2024 Travel 08/24/2024 3:40 PM CHEESE PRODUCTION SUPERVISOR Clinical Support [facility] [address] [place] [phone] Allergic rhinitis due to pollen, unspecified seasonality 08/17/2024 Travel 08/17/2024 3:40 PM CHEESE PRODUCTION SUPERVISOR Clinical Support [facility] [address] [place] [phone] Allergic rhinitis due to pollen, unspecified seasonality 08/10/2024 Travel 08/10/2024 3:40 PM CDT Clinical Support [facility] [address] [place] [phone] Allergic rhinitis due to pollen, unspecified seasonality 08/03/2024 Travel 08/03/2024 3:40 PM CDT Clinical Support [facility] [address] [place] [phone] Allergic rhinitis due to pollen, unspecified seasonality 07/27/2024 Travel 07/27/2024 3:40 PM CDT Clinical Support [facility] [address] [place] [phone] Allergic rhinitis due to pollen, unspecified seasonality 07/20/2024 Travel 07/20/2024 3:40 PM CDT Clinical Support [facility] [address] [place] [address] Allergic rhinitis due to pollen, unspecified seasonality from Last 3 Months Allergies Active Allergy Reactions Criticality Noted Date [...] fluticasone propionate (FLONASE) 50 MCG/ACT nasal spray Agar 2 (two) sprays into each nostril once daily Active ergocalciferol (DRISDOL) 1.25 MG (40558 UT) capsule Take 1 (one) capsule by [...] Active azelastine (Astepro) 205.5 MCG/SPRAY nasal spray Agar 2 (two) sprays into each nostril 2 [...] daily 10/30/2023 Active allergy injection Per [facility] Otolaryngology protocol Active fexofenadine (Cassie) 180 MG tablet Take 1 (one) tablet by mouth once daily Active Vitamin D, Ergocalciferol, 53324 units CAPS Take 1 (one) capsule by [...] pain 09/08/2013 Fibromyalgia 09/08/2013 Chronic sinusitis 10/08/2011 Immunizations Name Administration Dates Next Due FLU VACCINE TRI IIV3 SPLIT PF IM (FLUVIRIN) 07/13 INFLUENZA 07/03/2020 INFLUENZA VACCINE, QUADR. (F LUZONE; FLULAVAL; FLUARIX; AFLURIA QUADRIVALENT; 6MO+), 0.5 ML (IIV4) 07/23/2018 PNEUMOCOCCAL PPV, HISTORIC VACCINE 06/29/2020 TDAP (7yrs+) 06/22/2018,10/29/2017 iNFLUENZA VACCINE, RECOM-WILSON, QUADR. (FLUBLOCK QUADRIVALENT; 18Y+) (RIV4) 08/16/2021,09/17/2019 Social History Tobacco Use Types Packs/Day Years [...] st Contact Info) Description 10/19/2024 3:40 PM CHEESE PRODUCTION SUPERVISOR Clinical Support [facility] [address] [place] [phone] 10/26/2024 3:20 PM CHEESE PRODUCTION SUPERVISOR Clinical Support [facility] [address] [place] [phone] 11/02/2024 3:40 PM CHEESE PRODUCTION SUPERVISOR Clinical Support [facility] [address] [place] [phone] 11/09/2024 3:20 PM CHEESE PRODUCTION SUPERVISOR Clinical Support [facility] [address] [place] [phone] Procedures Procedure Name Priority Date/Time Associated Diagnosis Comments COMPREHENSIVE METABOLIC PANEL Routine 03/05/2019 10:01 AM CDT Fibromyalgia FABIAN positive HEPATITIS C ANTIBODY Routine 02/05/2016 11:21 AM CDT from Last 3 Months or Most Recently Relevant to Health Maintenance Results * COMPREHENSIVE METABOLIC PANEL (03/05/2019 10:01 AM CDT) Pathologist [facility] Glucose 88 65 - 99 mg/dL [facility] [...] Resulting Agency Comment [facility]: [facility] [address] [facility] ??[facility] [id number] Sarika Edwards MD LAB - CHEMISTRY LISA THAYER [facility] INSURANCE BILL [address] [place] [address] * HEPATITIS C ANTIBODY (02/05/2016 11:21 AM CDT) Hepatitis C Virus Antibody <0.1 0.0 - 0.9 s/co ratio [facility] ([place]) Comment: ?Negative: ? < 0.8 ? Indeterminate: 0.8 - 0.9 ?Positive: ? > 0.9 The CDC recommends that a positive HCV antibody result be followed up with a HCV Nucleic Acid Amplification test (177119). Blood specimen (specimen) BLOOD SPECIMEN / Unknown 02/05/2016 11:21 AM CDT 02/05/2016 4:02 PM CDT Narrative [facility] ([place]) - 02/13/2016 11:20 AM CDT Performed at: ??01 - [facility] [address], [place], [place] ??[id number] Mobile Application Tester: Darwin Hunter PhD, Phone: ??[phone] Sarika Edwards MD LAB - CHEMISTRY LISA THAYER Performing Organization Address City/State/[facility] Co de Phone Number [facility] JAQUELINE MUHAMMAD) from Last 3 Months or Most Recently Relevant to Health Maintenance Care Teams Adjunct Trainer Relationship Specialty Start Date End Date Jonathan Amado MD [address] [place] [phone] PCP - General Family Medicine 09/15/23 Jonathan Amado MD [address] [place] [phone] 06/24/13
--- OUTSIDE RECORDS SUMMARY | 2024-10-17 03:05 | XMS_ITS | Encounter Summary ---
Author Organization [facility] Address [facility] [facility] [place] [address] Care Team Providers Care Auditing Specialist Name Role Phone Jonathan Amado MD Unavailable [phone] Jonathan Amado MD Primary Care Provider [phone] Encounter Details Date Type Department Care Team (Latest Contact Info) Description 03/31/2024 Travel Social History Tobacco Use Types Packs/Day Years Used Date Smoking Tobacco: Never Smokeless Tobacco: Never Alcohol Use Standard Drinks/Week Comments No 0 (1 standard drink = 0.6 oz pur e alcohol) Sex and Gender Information Value Date Recorded Sex Assigned at Not on file Gender Identity Not on file Sexual Orientation Not on file documented as of this encounter Plan of Treatment Upcoming Encounters Date Type Department Care Team (Late st Contact Info) Description 10/19/2024 3:40 PM IMPLEMENTATION DIRECTOR Clinical Support [facility] [address] [place] [phone] 10/26/2024 3:20 PM IMPLEMENTATION DIRECTOR Clinical Support [facility] [address] [place] [phone] 11/02/2024 3:40 PM IMPLEMENTATION DIRECTOR Clinical Support [facility] [address] [place] [phone] 11/09/2024 3:20 PM IMPLEMENTATION DIRECTOR Clinical Support [facility] [address] [place] [phone] documented as of this encounter Visit Diagnoses Not on filedocumented in this encounter Care Teams Auditing Specialist Relationship Specialty Start Date End Date Jonathan Amado MD [address] [place] [phone] PCP - General Family Medicine 09/15/23 Jonathan Amado MD [address] [place] [phone] 06/24/13 documented as of this encounter
--- OUTSIDE RECORDS SUMMARY | 2024-10-17 03:05 | XMS_ITS | Encounter Summary ---
Author Organization [facility] Address [facility] [facility] [place] [address] Care Team Providers Care Auto Job Estimator Name Role Phone Jonathan Amado MD Unavailable [phone] Jonathan Amado MD Primary Care Provider [phone] Encounter Details Date Type Department Care Team (Latest Contact Info) Description 03/24/2024 Travel Social History Tobacco Use Types Packs/Day [...] st Contact Info) Description 10/19/2024 3:40 PM AIRCRAFT MOTOR MECHANIC Clinical Support [facility] [address] [place] [phone] 10/26/2024 3:20 PM AIRCRAFT MOTOR MECHANIC Clinical Support [facility] [address] [place] [phone] 11/02/2024 3:40 PM AIRCRAFT MOTOR MECHANIC Clinical Support [facility] [address] [place] [phone] 11/09/2024 3:20 PM AIRCRAFT MOTOR MECHANIC Clinical Support [facility] [address] [place] [phone] documented as of this encounter Visit Diagnoses Not on filedocumented in this encounter Care Teams Auto Job Estimator Relationship Specialty Start Date End Date Jonathan Amado MD [address] [place] [phone] PCP - General Family Medicine 09/15/23 Jonathan Amado MD [address] [place] [phone] 06/24/13 documented as of this encounter
--- OUTSIDE RECORDS SUMMARY | 2024-10-17 03:05 | XMS_ITS | Encounter Summary ---
Author Organization [facility] Address [facility] [facility] [address] Care Team Providers Care Sexual Assault Social Worker Name Role Phone Jonathan Amado MD Unavailable [phone] Jonathan Amado MD Primary Care Provider [phone] Encounter Details Date Type Department Care Team (Latest Contact Info) Description 08/17/2024 Travel Social History Tobacco Use Types Packs/Day [...] st Contact Info) Description 10/19/2024 3:40 PM AIR TRAFFIC CONTROL MANAGER Clinical Support [facility] [address] [place] [phone] 10/26/2024 3:20 PM AIR TRAFFIC CONTROL MANAGER Clinical Support [facility] [address] [place] [phone] 11/02/2024 3:40 PM AIR TRAFFIC CONTROL MANAGER Clinical Support [facility] [address] [place] [phone] 11/09/2024 3:20 PM AIR TRAFFIC CONTROL MANAGER Clinical Support [facility] [address] [place] [phone] documented as of this encounter Visit Diagnoses Not on filedocumented in this encounter Care Teams Sexual Assault Social Worker Relationship Specialty Start Date End Date Jonathan Amado MD [address] [place] [phone] PCP - General Family Medicine 09/15/23 Jonathan Amado MD [address] [place] [phone] 06/24/13 documented as of this encounter
--- OUTSIDE RECORDS SUMMARY | 2024-10-17 03:05 | XMS_ITS | Encounter Summary ---
Author Organization [facility] Address [address] [place] [address] Care Team Providers Care Title Investigator Name Role Phone Jonathan Amado MD Unavailable [phone] Jonathan Amado MD Primary Care Provider [phone]- [phone] Reason for Visit * Reason Comments Immunotherapy Allergy shot Encounter Details Date Type Department Care Team (Latest Contact Info) Description 05/05/2024 3:40 PM CDT Clinical Support [facility] [address] [place] [phone] Allergic rhinitis due to pollen, unspecified seasonality Social History Tobacco Use Types Packs/Day Years [...] on file documented as of this encounter Progress Notes * Ryanne Amaya - 05/05/2024 3:17 PM CDT This person is taking immunotherapy for previously diagnosed allergic rhinitis. Serum calculations have been reviewed by Dr. Arellano on 01/29/2024 . Allergy Individual Dosing Allergy extracts mixed: 02/19/2024 and 6 months after date mixed. date weed mix mold Phenol saline Vial in series verified with Signature & location 03/09/2024 0.05 0.25 0.20 pt Right upper arm SQ-ls 03/16/2024 0.07 0.25 0.18 pt Right upper arm SQ-ls 03/23/2024 0.10 0.25 0.15 pt Right upper arm SQ-ls 03/2403/30/2024 0.12 0.25 0.13 pt Right upper arm SQ-ls 03/3104/06/2024 0.15 0.25 0.10 pt Right upper arm SQ-ls 04/0704/13/2024 0.17 0.25 0.08 pt Left upper arm SQ-ls 04/1204/20/2024 0.20 0.25 0.05 pt Left upper arm SQ-ar 04/2804/27/2024 0.22 0.25 0.03 pt Left upper arm SQ-ls 05/0505/04/2024 0.25 0.25 0.00 05/11/2024 0.25 0.25 0.00 05/18/2024 0.25 0.25 0.00 05/25/2024 0.25 0.25 0.00 Physician in office: Brynn Lo MD Diagnosis: j30.1 Allergic rhinitis Epipen exp 12/2024 Department of Otolaryngology Head and Neck Surgery Patient Name: Pina Reynaga : 1970 Date: 05/05/2024 1. Did you bring your Epi-pen with you to clinic today? Yes 2. How are you feeling today? good 3. How have you been feeling since your last shot? Good. Just came back from vacation A. What symptoms do you have? Congestion, runny nose, sinus pressure, sneezing for past couple weeks. A lot of green drainage. B. When do you have these symptoms? past couple weeks C. Are your symptoms mild, moderate or severe? Moderate-severe 4. How has your asthma been? I don't think I have it A. Is your asthma controlled or uncontrolled? Controlled B. Have you had any recent attacks? No 5. Are you having trouble breathing today? No 6. Have you had any problems with angioedema? No 7. Any local reactions from your last shot? denies 8. Are you on any beta margy antihypertensives? no 9. Have you taken any antihistamines since your last visit? Zyrtec the past week or so, usually only prn 10. Do you have a temperature >101? no Injection time: 1520 Site: Left Upper Arm SQ Vial Contents diluted with 0.5ml Normal Saline: No Reaction: none Action taken: benadryl cream applied at injection site. Suggested take extra dose oral antihistamine this evening. Reviewed treatment for local reaction including call office for reaction > 2 inches. Reviewed use epi-pen for signs of anaphylaxis, and call 911. Pt & spouse acknowledge understanding. 1540 Time ambulatory from clinic in no distress, color pink, respiratory unlabored, steady on feet,voices no complaints. Spouse with pt. documented in this encounter Plan of Treatment Upcoming Encounters Date Type Department Care Team (Late st Contact Info) Description 10/19/2024 3:40 PM INFO PRINT PRESS OPERATOR Clinical Support [facility] [address] [place] [phone] 10/26/2024 3:20 PM INFO PRINT PRESS OPERATOR Clinical Support [facility] [address] [place] [phone] 11/02/2024 3:40 PM INFO PRINT PRESS OPERATOR Clinical Support [facility] [address] [place] [phone] 11/09/2024 3:20 PM INFO PRINT PRESS OPERATOR Clinical Support [facility] [address] [place] [phone] documented as of this encounter Visit Diagnoses Diagnosis Allergic rhinitis due to pollen, unspecified seasonality- Primary documented in this encounter Care Teams Title Investigator Relationship Specialty Start Date End Date Jonathan Amado MD [address] [place] [phone] PCP - General Family Medicine 09/15/23 Jonathan Amado MD [address] [place] [phone] 06/24/13 documented as of this encounter
--- OUTSIDE RECORDS SUMMARY | 2024-10-17 03:05 | XMS_ITS | Encounter Summary ---
Author Organization [facility] Address [facility] [facility] [place] [address] Care Team Providers Care Area Secretary Name Role Phone Jonathan Amado MD Unavailable [phone] Jonathan Amado MD Primary Care Provider [phone] Encounter Details Date Type Department Care Team (Latest Contact Info) Description 08/10/2024 Travel Social History Tobacco Use Types Packs/Day [...] st Contact Info) Description 10/19/2024 3:40 PM WAIT STAFF Clinical Support [facility] [address] [place] [phone] 10/26/2024 3:20 PM WAIT STAFF Clinical Support [facility] [address] [place] [phone] 11/02/2024 3:40 PM WAIT STAFF Clinical Support [facility] [address] [place] [phone] 11/09/2024 3:20 PM WAIT STAFF Clinical Support [facility] [address] [place] [phone] documented as of this encounter Visit Diagnoses Not on filedocumented in this encounter Care Teams Area Secretary Relationship Specialty Start Date End Date Jonathan Amado MD [address] [place] [phone] PCP - General Family Medicine 09/15/23 Jnoathan Amado MD [address] [place] [phone] 06/24/13 documented as of this encounter
--- OUTSIDE RECORDS SUMMARY | 2024-10-17 03:05 | XMS_ITS | Encounter Summary ---
Author Organization [facility] Address [address] [facility] [place] [address] Care Team Providers Care Critical Power Install Technician Name Role Phone Jonathan Amado MD Unavailable [phone] Jonathan Amado MD Primary Care Provider [phone] Encounter Details Date Type Department Care Team (Latest Contact Info) Description 06/29/2024 3:40 PM CDT Clinical Support [facility] [address] [place] [phone] Seasonal allergic rhinitis due to pollen Social History Tobacco Use Types Packs/Day Years [...] as of this encounter Progress Notes * Jose LuisRyanne - 06/29/2024 3:25 PM CDT This person is taking immunotherapy for previously diagnosed allergic rhinitis. Serum calculations have been reviewed by Dr. Arellano on 05/03/2024 . Allergy Individual Dosing Allergy extracts mixed: 05/13/2024 and 6 months after date mixed. date [place] mix Mold mix Phenol saline Vial in series verified with Signature & location 06/09/2024 0.25 0.05 0.20 pt Left upper arm SQ-ls 06/15/2024 06/16/2024 0.25 0.10 0.15 pt Left upper arm SQ-ls 06/2306/23/2024 0.25 0.15 0.10 pt Left upper arm SQ-ls 06/2906/30/2024 0.25 0.20 0.05 07/07/2024 0.25 0.25 0.00 07/14/2024 0.25 0.25 0.00 07/21/2024 0.25 0.25 0.00 0.25 0.25 0.00 08/04/2024 0.25 0.25 0.00 08/11/2024 0.25 0.25 0.00 08/18/2024 0.25 0.25 0.00 Physician in office: Houston Pantoja MD Diagnosis: j30.1 Allergic rhinitis Epipen exp 12/2024 Department of Otolaryngology Head and Neck Surgery Patient Name: Pina Reynaga : 1970 Date: 06/29/2024 1. Did you bring your Epi-pen with you to clinic today? Yes 2. How are you feeling today? ok 3. How have you been feeling since your last shot? About the same A. What symptoms do you have? Congestion, runny nose, sinus pressure, sneezing for past month. Gagging on PND B. When do you have these symptoms? past month or so C. Are your symptoms mild, moderate or severe? Moderate 4. How has your asthma been? I [...] taken any antihistamines since your last visit? yes 10. Do you have a temperature >101? no Injection time: 1528 Site: left Upper Arm SQ Vial Contents diluted with 0.5ml Normal Saline: No Reaction: none Action taken: benadryl cream applied at injection site. Reviewed treatment for local reaction including call office for reaction > 2 inches. Reviewed use epi-pen for signs of anaphylaxis, and call 911. Pt & spouse acknowledge understanding. 1550 Time ambulatory from clinic in no distress, color pink, respiratory unlabored, steady on feet,voices no complaints. Spouse with pt. documented in this encounter Plan of Treatment Upcoming Encounters Date Type Department Care Team (Late st Contact Info) Description 10/19/2024 3:40 PM BRIDGE TOLL COLLECTOR Clinical Support [facility] [address] [place] [phone] 10/26/2024 3:20 PM BRIDGE TOLL COLLECTOR Clinical Support [facility] [address] [place] [phone] 11/02/2024 3:40 PM BRIDGE TOLL COLLECTOR Clinical Support [facility] [address] [place] [phone] 11/09/2024 3:20 PM BRIDGE TOLL COLLECTOR Clinical Support [facility] [address] [place] [phone] documented as of this encounter Visit Diagnoses Diagnosis Seasonal allergic rhinitis due to pollen- Primary documented in this encounter Care Teams Critical Power Install Technician Relationship Specialty Start Date End Date Jonathan Amado MD [address] [place] [phone] PCP - General Family Medicine 09/15/23 Jonathan Amado MD [facility] [place] [address] 06/24/13 documented as of this encounter
--- OUTSIDE RECORDS SUMMARY | 2024-10-17 03:05 | XMS_ITS | Encounter Summary ---
Author Organization [facility] Address [address] [place] [address] Care Team Providers Care Welcome Desk Agent Name Role Phone Jonathan Amado MD Unavailable [phone] Jonathan Amado MD Primary Care Provider [phone] Reason for Visit * Reason Comments Immunotherapy Allergy shot Encounter Details Date Type Department Care Team (Latest Contact Info) Description 05/12/2024 3:40 PM CDT Clinical Support [facility] [address] [place] [phone] Seasonal allergic rhinitis due to pollen Social [...] encounter Progress Notes * Ryanne Amaya - 05/12/2024 3:25 PM CDT This person is taking [...] upper arm SQ-ls 05/0505/04/2024 0.25 0.25 0.00 pt Right upper arm SQ -ls 05/1205/11/2024 0.25 0.25 0.00 05/18/2024 0.25 0.25 0.00 05/25/2024 0.25 0.25 0.00 Physician in office: Brynn oL MD Diagnosis: j30.1 Allergic rhinitis Epipen exp 12/2024 Department of Otolaryngology Head and Neck Surgery Patient Name: Pina Reynaga : 1970 Date: 05/12/2024 1. Did you bring your Epi-pen with you to clinic today? Yes 2. How are you feeling today? good 3. How have you been feeling since your last shot? Good. A. What symptoms do you have? Congestion, runny nose, sinus pressure, sneezing for past couple weeks. A lot of green drainage. B. When do you have these symptoms? past few weeks C. Are your symptoms mild, moderate [...] temperature >101? no Injection time: 1528 Site: right Upper Arm SQ Vial Contents diluted with 0.5ml Normal Saline: No Reaction: none Action taken: benadryl cream applied at injection site. Suggested take extra dose oral antihistamine this evening. Reviewed treatment for local reaction including call office for reaction > 2 inches. Reviewed use epi-pen for signs of anaphylaxis, and call 911. Pt & spouse acknowledge understanding. 1548 Time ambulatory from clinic in no distress, color pink, respiratory unlabored, steady on feet,voices no complaints. Spouse with pt. documented in this encounter Plan of Treatment Upcoming Encounters Date Type Department Care Team (Late st Contact Info) Description 10/19/2024 3:40 PM RECYCLING CENTER OPERATOR Clinical Support [facility] [address] [place] [phone] 10/26/2024 3:20 PM RECYCLING CENTER OPERATOR Clinical Support [facility] [address] [place] [phone] 11/02/2024 3:40 PM RECYCLING CENTER OPERATOR Clinical Support [facility] [address] [place] [phone] 11/09/2024 3:20 PM RECYCLING CENTER OPERATOR Clinical Support [facility] [address] [place] [phone] documented as of this encounter Visit Diagnoses Diagnosis Seasonal allergic rhinitis due to pollen- Primary documented in this encounter Care Teams Welcome Desk Agent Relationship Specialty Start Date End Date Jonathan Amado MD [address] [place] [phone] PCP - General Family Medicine 09/15/23 Jonathan Amado MD [address] [place] [phone] 06/24/13 documented as of this encounter
--- OUTSIDE RECORDS SUMMARY | 2024-10-17 03:05 | XMS_ITS | Encounter Summary ---
Author Organization [facility] Address [address] [facility] [place] [address] Care Team Providers Care Uke Driver Name Role Phone Jonathan Amado MD Unavailable [phone] Jonathan Amado MD Primary Care Provider [phone] Encounter Details Date Type Department Care Team (Latest Contact Info) Description 09/21/2024 3:40 PM STRUCTURAL STEEL ENGINEER Clinical Support [facility] [address] [place] [phone] Allergic rhinitis due to pollen, unspecified [...] encounter Progress Notes * Ryanne Amaya - 09/21/2024 3:23 PM CST This person is taking immunotherapy for previously diagnosed allergic rhinitis. Serum calculations have been reviewed with Dr. Arellano 08/05/2024. Allergy Individual Dosing Allergy extracts mixed: 08/10/2024 and 6 months after date mixed. date weed mix mold Phenol saline Vial in series verified with Signature & location 08/31/2024 0.25 0.05 0.20 pt Left upper arm SQ-ar 09/07/2024 0.25 0.10 0.15 pt Left upper arm SQ-ls 09/14/2024 0.25 0.15 0.10 pt Left upper arm SQ-ls 09/21/2024 0.25 0.20 0.05 pt Left upper arm SQ-ls 09/28/2024 0.25 0.25 0.00 10/05/2024 0.25 0.25 0.00 10/12/2024 0.25 0.25 0.00 10/19/2024 0.25 0.25 0.00 10/26/2024 0.25 0.25 0.00 11/02/2024 0.25 0.25 0.00 11/09/2024 0.25 0.25 0.00 Physician in office: Houston Pantoja MD Epipen exp 12/2024 Department of Otolaryngology Head and Neck Surgery Patient Name: Pina Reynaga : 1970 Date: 09/21/2024 1. Did you bring your Epi-pen with you to clinic today? Yes 2. How are you feeling today? Pretty good. 3. How have you been feeling since your last shot? ok A. What symptoms do you have? Left ear congestion B. When do you have these symptoms? Off and on C. Are your symptoms mild, moderate or severe? mild 4. How has your asthma been? I [...] have a temperature >101? no Injection time: 1525 Site: Left Upper Arm SQ Vial Contents diluted with 0.5ml Normal Saline: No Reaction: none Action taken: benadryl cream applied at injection site. At previous appointment reviewed treatment for local reaction including call office for reaction > 2 inches,also reviewed use epi-pen for signs of anaphylaxis, and call 911. Pt & spouse acknowledge understanding. 1545Time ambulatory from clinic in no distress, color pink, respiratory unlabored, steady on feet, voices no complaints. Spouse with pt. CTURAL STEEL ENGINEER documented in this encounter Plan of Treatment Upcoming Encounters Date Type Department Care Team (Late st Contact Info) Description 10/19/2024 3:40 PM STRUCTURAL STEEL ENGINEER Clinical Support [facility] [address] [place] [phone] 10/26/2024 3:20 PM STRUCTURAL STEEL ENGINEER Clinical Support [facility] [address] [place] [phone] 11/02/2024 3:40 PM STRUCTURAL STEEL ENGINEER Clinical Support [facility] [address] [place] [phone] 11/09/2024 3:20 PM STRUCTURAL STEEL ENGINEER Clinical Support [facility] [address] [place] [phone] documented as of this encounter Visit Diagnoses Diagnosis Allergic rhinitis due to pollen, unspecified seasonality- Primary documented in this encounter Care Teams Uke Driver Relationship Specialty Start Date End Date Jonathan Amado MD [address] [place] [phone] PCP - General Family Medicine 09/15/23 Jonathan Amado MD [address] [place] [phone] 06/24/13 documented as of this encounter
--- OUTSIDE RECORDS SUMMARY | 2024-10-17 03:05 | XMS_ITS | Encounter Summary ---
Author Organization [facility] Address [facility] [facility] [place] [address] Care Team Providers Care Combination Building Inspector Name Role Phone Jonathan Amado MD Unavailable [phone] Jonathan Amado MD Primary Care Provider [phone] Encounter Details Date Type Department Care Team (Latest Contact Info) Description 09/28/2024 Travel Social History Tobacco Use Types Packs/Day [...] st Contact Info) Description 10/19/2024 3:40 PM CLINICAL LAB TECHNOLOGIST Clinical Support [facility] [address] [place] [phone] 10/26/2024 3:20 PM CLINICAL LAB TECHNOLOGIST Clinical Support [facility] [address] [place] [phone] 11/02/2024 3:40 PM CLINICAL LAB TECHNOLOGIST Clinical Support [facility] [address] [place] [phone] 11/09/2024 3:20 PM CLINICAL LAB TECHNOLOGIST Clinical Support [facility] [address] [place] [phone] documented as of this encounter Visit Diagnoses Not on filedocumented in this encounter Care Teams Combination Building Inspector Relationship Specialty Start Date End Date Jonathan Amado MD [address] [place] [phone] PCP - General Family Medicine 09/15/23 Jonathan Amado MD [address] [place] [phone] 06/24/13 documented as of this encounter
--- OUTSIDE RECORDS SUMMARY | 2024-10-17 03:05 | XMS_ITS | Encounter Summary ---
Author Organization [facility] Address [address] [facility] [place] [address] Care Team Providers Care Supervisor Drapery Hanging Name Role Phone Jonathan Amado MD Unavailable [phone] Jonathan Amado MD Primary Care Provider [phone] Encounter Details Date Type Department Care Team (Latest Contact Info) Description 03/31/2024 3:20 PM CDT Clinical Support [facility] [address] [place] [phone] Seasonal allergic rhinitis due to pollen [...] encounter Progress Notes * Ryanne Amaya - 03/31/2024 1:16 PM CDT This person is taking immunotherapy [...] upper arm SQ-ls 03/3104/06/2024 0.15 0.25 0.10 04/13/2024 0.17 0.25 0.08 04/20/2024 0.20 0.25 0.05 04/27/2024 0.22 0.25 0.03 05/04/2024 0.25 0.25 0.00 05/11/2024 0.25 0.25 0.00 05/18/2024 0.25 0.25 0.00 05/25/2024 0.25 0.25 0.00 Physician in office: Brynn Lo MD Diagnosis: j30.1 Allergic rhinitis Epipen exp 12/2024 Department of Otolaryngology Head and Neck Surgery Patient Name: Pina Reynaga : 1970 Date: 03/31/2024 1. Did you bring your Epi-pen with you to clinic today? Yes 2. How are you feeling today? stressed 3. How have you been feeling since your last shot? fair A. What symptoms do you have? Congestion, runny nose, sinus pressure, sneezing B. When do you have these symptoms? past couple weeks C. Are your symptoms mild, moderate or severe? moderate 4. How has your asthma been? I don't think I have it A. Is your asthma controlled or uncontrolled? Controlled B. Have you had any recent attacks? No 5. Are you having trouble breathing today? No 6. Have you had any problems with angioedema? No 7. Any local reactions from your last shot? denies 8. Are you on any beta margy antihypertensives? prn 9. Have you taken any antihistamines since your last visit? Zyrtec the past week or so, usually only prn 10. Do you have a temperature >101? no Injection time: 1320 Site: Right Upper Arm SQ Vial Contents diluted with 0.5ml Normal Saline: No Reaction: 7 mm wheal, slight redness Action taken: benadryl cream applied at injection site. Suggested take extra dose oral antihistamine this evening. Reviewed treatment for local reaction including call office for reaction > 2 inches. Reviewed use epi-pen for signs of anaphylaxis, and call 911. Pt & spouse acknowledge understanding. 1340 Time ambulatory from clinic in no distress, color pink, respiratory unlabored, steady on feet,voices no complaints. Spouse with pt. documented in this encounter Plan of Treatment Upcoming Encounters Date Type Department Care Team (Late st Contact Info) Description 10/19/2024 3:40 PM BUFFING WHEEL INSPECTOR Clinical Support [facility] [address] [place] [phone] 10/26/2024 3:20 PM BUFFING WHEEL INSPECTOR Clinical Support [facility] [address] [place] [phone] 11/02/2024 3:40 PM BUFFING WHEEL INSPECTOR Clinical Support [facility] [address] [place] [phone] 11/09/2024 3:20 PM BUFFING WHEEL INSPECTOR Clinical Support [facility] [address] [place] [phone] documented as of this encounter Visit Diagnoses Diagnosis Seasonal allergic rhinitis due to pollen- Primary documented in this encounter Care Teams Supervisor Drapery Hanging Relationship Specialty Start Date End Date Jonathan Amado MD [address] [place] [phone] PCP - General Family Medicine 09/15/23 Jonathan Amado MD [facility] [place] [address] 06/24/13 documented as of this encounter
--- OUTSIDE RECORDS SUMMARY | 2024-10-17 03:05 | XMS_ITS | Encounter Summary ---
Author Organization [facility] Address [address] [place] [place] [address] Care Team Providers Care Accounts Payable Assistant Name Role Phone Jonathan Amado MD Unavailable [phone] Jonathan Amado MD Primary Care Provider [phone] Reason for Visit * Reason Comments Immunotherapy Allergy shot Encounter Details Date Type Department Care Team (Latest Contact Info) Description 07/27/2024 3:40 PM CDT Clinical Support [facility] [address] [place] [phone] Allergic rhinitis due to pollen, unspecified [...] encounter Progress Notes * Ryanne Amaya - 07/27/2024 3:25 PM CDT This person is taking immunotherapy for previously diagnosed allergic rhinitis. Serum calculations have been reviewed by Dr. Arellano on 05/03/2024 . Allergy Individual Dosing Allergy extracts mixed: 05/13/2024 and 6 months after date mixed. date [place] mix Mold mix Phenol saline Vial in series verified with Signature & location 06/09/2024 0.25 0.05 0.20 pt Left upper arm SQ-ls 06/15/2024 06/16/2024 0.25 0.10 0.15 pt Left upper arm SQ-ls 06/2306/23/2024 0.25 0.15 0.10 pt Left upper arm SQ-ls 06/2906/30/2024 0.25 0.20 0.05 pt Left upper arm SQ-ls 07/0607/07/2024 0.25 0.25 0.00 pt Left upper arm SQ-ar 07/1307/14/2024 0.25 0.25 0.00 pt Left upper arm SQ-ls 07/2007/21/2024 0.25 0.25 0.00 pt Left upper arm SQ-ls 07/27 0.25 0.25 0.00 08/04/2024 0.25 0.25 0.00 08/11/2024 0.25 0.25 0.00 08/18/2024 0.25 0.25 0.00 Physician in office: Houston Pantoja MD Diagnosis: j30.1 Allergic rhinitis Epipen exp 12/2024 Department of Otolaryngology Head and Neck Surgery Patient Name: Pina Reynaga : 1970 Date: 07/27/2024 1. Did you bring your Epi-pen with you to clinic today? Yes 2. How are you feeling today? fine 3. How have you been feeling since your last shot? About the same A. What symptoms do you have? Congestion, sneezing B. When do you have these [...] call 911. Pt & spouse acknowledge understanding. 1545 Time ambulatory from clinic in no distress, color pink, respiratory unlabored, steady on feet,voices no complaints. Spouse with pt. documented in this encounter Plan of Treatment Upcoming Encounters Date Type Department Care Team (Late st Contact Info) Description 10/19/2024 3:40 PM DEWAXER Clinical Support [facility] [address] [place] [phone] 10/26/2024 3:20 PM DEWAXER Clinical Support [facility] [address] [place] [phone] 11/02/2024 3:40 PM DEWAXER Clinical Support [facility] [address] [place] [phone] 11/09/2024 3:20 PM DEWAXER Clinical Support [facility] [address] [place] [phone] documented as of this encounter Visit Diagnoses Diagnosis Allergic rhinitis due to pollen, unspecified seasonality- Primary documented in this encounter Care Teams Accounts Payable Assistant Relationship Specialty Start Date End Date Jonathan Amado MD [facility] [place] [address] PCP - General Family Medicine 09/15/23 Jonathan Amado MD [facility] [place] [address] 06/24/13 documented as of this encounter
--- OUTSIDE RECORDS SUMMARY | 2024-10-17 03:05 | XMS_ITS | Encounter Summary ---
Author Organization [facility] Address [address] [facility] [place] [address] Care Team Providers Care Meat And Poultry Inspector Name Role Phone Jonathan Amado MD Unavailable [phone] Jonathan Amado MD Primary Care Provider [phone] Reason for Visit * Reason Comments Immunotherapy Allergy shot Encounter Details Date Type Department Care Team (Latest Contact Info) Description 06/15/2024 3:40 PM CDT Clinical Support [facility] [address] [place] [phone] Seasonal allergic rhinitis due to pollen Social [...] encounter Progress Notes * Ryanne Amaya - 06/15/2024 3:38 PM CDT This person is taking immunotherapy for previously diagnosed allergic rhinitis. Serum calculations have been reviewed by Dr. Arellano on 05/03/2024 . Allergy Individual Dosing Allergy extracts mixed: 05/13/2024 and 6 months after date mixed. date [place] mix Mold mix Phenol saline Vial in series verified with Signature & location 06/09/2024 0.25 0.05 0.20 pt Left upper arm SQ-ls 06/15/2024 06/16/2024 0.25 0.10 0.15 06/23/2024 0.25 0.15 0.10 06/30/2024 0.25 0.20 0.05 07/07/2024 0.25 0.25 0.00 07/14/2024 0.25 0.25 0.00 07/21/2024 0.25 0.25 0.00 0.25 0.25 0.00 08/04/2024 0.25 0.25 0.00 08/11/2024 0.25 0.25 0.00 08/18/2024 0.25 0.25 0.00 Physician in office: Dr. Werner MD Diagnosis: j30.1 Allergic rhinitis Epipen exp 12/2024 Department of Otolaryngology Head and Neck Surgery Patient Name: Pina Reynaga : 1970 Date: 06/15/2024 1. Did you bring your Epi-pen with you to clinic today? Yes 2. How are you feeling today? fair 3. How have you been feeling since [...] have a temperature >101? no Injection time: 1538 Site: left Upper Arm SQ Vial Contents diluted with 0.5ml Normal Saline: No Reaction: none Action taken: benadryl cream applied at injection site. Reviewed treatment for local reaction including call office for reaction > 2 inches. Reviewed use epi-pen for signs of anaphylaxis, and call 911. Pt & spouse acknowledge understanding. 1600 Time ambulatory from clinic in no distress, color pink, respiratory unlabored, steady on feet,voices no complaints. Spouse with pt. documented in this encounter Plan of Treatment Upcoming Encounters Date Type Department Care Team (Late st Contact Info) Description 10/19/2024 3:40 PM INFLATED PAD BUFFER Clinical Support [facility] [address] [place] [phone] 10/26/2024 3:20 PM INFLATED PAD BUFFER Clinical Support [facility] [address] [place] [phone] 11/02/2024 3:40 PM INFLATED PAD BUFFER Clinical Support [facility] [address] [place] [phone] 11/09/2024 3:20 PM INFLATED PAD BUFFER Clinical Support [facility] [address] [place] [phone] documented as of this encounter Visit Diagnoses Diagnosis Seasonal allergic rhinitis due to pollen- Primary documented in this encounter Care Teams Meat And Poultry Inspector Relationship Specialty Start Date End Date Jonathan Amado MD [address] [place] [phone] PCP - General Family Medicine 09/15/23 Jonathan Amado MD [address] [place] [phone] 06/24/13 documented as of this encounter
--- OUTSIDE RECORDS SUMMARY | 2024-10-17 03:05 | XMS_ITS | Encounter Summary ---
Author Organization [facility] Address [address] [facility] [place] [address] Care Team Providers Care Assembled Wood Products Repairer Name Role Phone Jonathan Amado MD Unavailable [phone] Jonathan Amado MD Primary Care Provider [phone] Encounter Details Date Type Department Care Team (Latest Contact Info) Description 06/01/2024 3:40 PM CDT Clinical Support [facility] [address] [place] [phone] Seasonal allergic rhinitis due to pollen [...] encounter Progress Notes * Ryanne Amaya - 06/01/2024 3:21 PM CDT This person is taking immunotherapy [...] arm SQ -ls 05/1205/11/2024 0.25 0.25 0.00 pt Left upper arm SQ- ar 05/1805/18/2024 0.25 0.25 0.00 pt Left upper arm SQ- ar 05/2505/25/2024 0.25 0.25 0.00 pt Left upper arm SQ-ls 06/01 Physician in office: Dr. Werner MD Diagnosis: j30.1 Allergic rhinitis Epipen exp 12/2024 Department of Otolaryngology Head and Neck Surgery Patient Name: Pina Reynaga : 1970 Date: 06/01/2024 1. Did you bring your Epi-pen with [...] benadryl cream applied at injection site. Suggested setting up appointment with Dr. Brice for symptom evaluation. Also consider skipping a week of her mowing the lawn to see if that improves symptoms. Reviewed treatment for local reaction including call [...] st Contact Info) Description 10/19/2024 3:40 PM PULP MILL OPERATOR Clinical Support [facility] [address] [place] [phone] 10/26/2024 3:20 PM PULP MILL OPERATOR Clinical Support [facility] [address] [place] [phone] 11/02/2024 3:40 PM PULP MILL OPERATOR Clinical Support [facility] [address] [place] [phone] 11/09/2024 3:20 PM PULP MILL OPERATOR Clinical Support [facility] [address] [place] [phone] documented as of this encounter Visit Diagnoses Diagnosis Seasonal allergic rhinitis due to pollen- Primary documented in this encounter Care Teams Assembled Wood Products Repairer Relationship Specialty Start Date End Date Jonathan Amado MD [facility] [place] [phone] PCP - General Family Medicine 09/15/23 Jonathan Amado MD [address] [place] [phone] 06/24/13 documented as of this encounter
--- OUTSIDE RECORDS SUMMARY | 2024-10-17 03:05 | XMS_ITS | Encounter Summary ---
Author Organization [facility] Address [facility] [place] [address] Care Team Providers Care Health Lead Name Role Phone Jonathan Amado MD Unavailable [phone] Jonathan Amado MD Primary Care Provider [phone] Encounter Details Date Type Department Care Team (Latest Contact Info) Description 06/15/2024 Travel Social History Tobacco Use Types Packs/Day [...] st Contact Info) Description 10/19/2024 3:40 PM FAMILY ADVOCATE Clinical Support [facility] [address] [place] [phone] 10/26/2024 3:20 PM FAMILY ADVOCATE Clinical Support [facility] [address] [place] [phone] 11/02/2024 3:40 PM FAMILY ADVOCATE Clinical Support [facility] [address] [place] [phone] 11/09/2024 3:20 PM FAMILY ADVOCATE Clinical Support [facility] [address] [place] [phone] documented as of this encounter Visit Diagnoses Not on filedocumented in this encounter Care Teams Health Lead Relationship Specialty Start Date End Date Jonathan Amado MD [address] [place] [phone] PCP - General Family Medicine 09/15/23 Jonathan Amado MD [address] [place] [phone] 06/24/13 documented as of this encounter
--- OUTSIDE RECORDS SUMMARY | 2024-10-17 03:05 | XMS_ITS | Encounter Summary ---
Author Organization [facility] Address [facility] [facility] [place] [address] Care Team Providers Care Assistant Professor Of Sociology Name Role Phone Jonathan Amado MD Unavailable [phone] Jonathan Amado MD Primary Care Provider [phone] Encounter Details Date Type Department Care Team (Latest Contact Info) Description 09/14/2024 Travel Social History Tobacco Use Types Packs/Day [...] st Contact Info) Description 10/19/2024 3:40 PM AUDIO VIDEO TECH Clinical Support [facility] [address] [place] [phone] 10/26/2024 3:20 PM AUDIO VIDEO TECH Clinical Support [facility] [address] [place] [phone] 11/02/2024 3:40 PM AUDIO VIDEO TECH Clinical Support [facility] [address] [place] [phone] 11/09/2024 3:20 PM AUDIO VIDEO TECH Clinical Support [facility] [address] [place] [phone] documented as of this encounter Visit Diagnoses Not on filedocumented in this encounter Care Teams Assistant Professor Of Sociology Relationship Specialty Start Date End Date Jonathan Amado MD [address] [place] [phone] PCP - General Family Medicine 09/15/23 Jonathan Amado MD [address] [place] [phone] 06/24/13 documented as of this encounter
--- OUTSIDE RECORDS SUMMARY | 2024-10-17 03:05 | XMS_ITS | Encounter Summary ---
Author Organization [facility] Address [address] [place] [address] Care Team Providers Care Masonry Inspector Name Role Phone Jonathan Amado MD Unavailable [phone] Jonathan Amado MD Primary Care Provider [phone] Reason for Visit * Reason Comments Immunotherapy Allergy shot Encounter Details Date Type Department Care Team (Latest Contact Info) Description 04/12/2024 9:40 AM CDT Clinical Support [facility] [address] [place] [phone] Seasonal allergic rhinitis due to pollen Social [...] encounter Progress Notes * Ryanne Amaya - 04/12/2024 9:07 AM CDT This person is taking immunotherapy for [...] upper arm SQ-ls 04/1204/20/2024 0.20 0.25 0.05 04/27/2024 0.22 0.25 0.03 05/04/2024 0.25 0.25 0.00 05/11/2024 0.25 0.25 0.00 05/18/2024 0.25 0.25 0.00 05/25/2024 0.25 0.25 0.00 Physician in office: Franc Ventura MD Diagnosis: j30.1 Allergic rhinitis Epipen exp 12/2024 Department of Otolaryngology Head and Neck Surgery Patient Name: Pina Reynaga : 1970 Date: 04/12/2024 1. Did you bring your Epi-pen with you to clinic today? Yes 2. How are you feeling today? good 3. How have you been feeling since your last shot? same A. What symptoms do you have? Congestion, runny nose, sinus pressure, sneezing for past couple weeks. A lot of green drainage this morning-feels like going into full sinus infection, B. When do you have these symptoms? [...] have a temperature >101? no Injection time: 911 Site: Right Upper Arm SQ Vial Contents diluted with 0.5ml Normal Saline: No Reaction: none Action taken: benadryl cream applied at injection site. Suggested take extra dose oral antihistamine this evening. Reviewed treatment for local reaction including call office for reaction > 2 inches. Reviewed use epi-pen for signs of anaphylaxis, and call 911. Pt & spouse acknowledge understanding. 0932Time ambulatory from clinic in no distress, color pink, respiratory unlabored, steady on feet, voices no complaints. Spouse with pt. documented in this encounter Plan of Treatment Upcoming Encounters Date Type Department Care Team (Late st Contact Info) Description 10/19/2024 3:40 PM MANDREL CLEANER Clinical Support [facility] [address] [place] [phone] 10/26/2024 3:20 PM MANDREL CLEANER Clinical Support [facility] [address] [place] [phone] 11/02/2024 3:40 PM MANDREL CLEANER Clinical Support [facility] [address] [place] [phone] 11/09/2024 3:20 PM MANDREL CLEANER Clinical Support [facility] [address] [place] [phone] documented as of this encounter Visit Diagnoses Diagnosis Seasonal allergic rhinitis due to pollen- Primary documented in this encounter Care Teams Masonry Inspector Relationship Specialty Start Date End Date Jonathan Amado MD [address] [place] [phone] PCP - General Family Medicine 09/15/23 Jonathan Amado MD [address] [place] [phone] 06/24/13 documented as of this encounter
--- OUTSIDE RECORDS SUMMARY | 2024-10-17 03:05 | XMS_ITS | Encounter Summary ---
Author Organization [facility] Address [address] [place] [address] Care Team Providers Care Environmental Change Analyst Name Role Phone Jonathan Amado MD Unavailable [phone] Jonathan Amado MD Primary Care Provider [phone] Encounter Details Date Type Department Care Team (Latest Contact Info) Description 10/04/2024 9:20 AM COCOA MILLING MACHINE OPERATOR Clinical Support [facility] [address] [place] [phone] Allergic rhinitis due to pollen, unspecified [...] of this encounter Progress Notes * Jose Luis Ryanne - 10/04/2024 8:30 AM CST This person is taking immunotherapy for [...] upper arm SQ-ls 09/28/2024 0.25 0.25 0.00 Pt Left upper arm SQ-ls 10/05/2024 0.25 0.25 0.00 pt Left upper arm SQ-ls 10/0410/12/2024 0.25 0.25 0.00 10/19/2024 0.25 0.25 0.00 10/26/2024 0.25 0.25 0.00 11/02/2024 0.25 0.25 0.00 11/09/2024 0.25 0.25 0.00 Physician in office:Ramón Arellano MD Epipen exp 12/2024 Department of Otolaryngology Head and Neck Surgery Patient Name: Pina Reynaga : 1970 Date: 10/04/2024 1. Did you bring your Epi-pen with you to clinic today? Yes 2. How are you feeling today? good. 3. How have you been feeling since your last shot? ok A. What symptoms do you have? na B. When do you have these symptoms? na C. Are your symptoms mild, moderate or severe? na 4. How has your asthma been? I [...] have a temperature >101? no Injection time: 1535 Site: Left Upper Arm SQ Vial Contents diluted with 0.5ml Normal Saline: No Reaction: none Action taken: benadryl cream applied at injection site. At previous appointment reviewed treatment for local reaction including call office for reaction > 2 inches,also reviewed use epi-pen for signs of anaphylaxis, and call 911. Pt & spouse acknowledge understanding. 1555Time ambulatory from clinic in no distress, color pink, respiratory unlabored, steady on feet, voices no complaints. Spouse with pt.pt A MILLING MACHINE OPERATOR documented in this encounter Plan of Treatment Upcoming Encounters Date Type Department Care Team (Late st Contact Info) Description 10/19/2024 3:40 PM COCOA MILLING MACHINE OPERATOR Clinical Support [facility] [address] [place] [phone] 10/26/2024 3:20 PM COCOA MILLING MACHINE OPERATOR Clinical Support [facility] [address] [place] [phone] 11/02/2024 3:40 PM COCOA MILLING MACHINE OPERATOR Clinical Support [facility] [address] [place] [phone] 11/09/2024 3:20 PM COCOA MILLING MACHINE OPERATOR Clinical Support [facility] [address] [place] [phone] documented as of this encounter Visit Diagnoses Diagnosis Allergic rhinitis due to pollen, unspecified seasonality- Primary documented in this encounter Care Teams Environmental Change Analyst Relationship Specialty Start Date End Date Jonathan Amado MD [address] [place] [phone] PCP - General Family Medicine 09/15/23 Jonathan Amado MD [address] [place] [phone] 06/24/13 documented as of this encounter
--- OUTSIDE RECORDS SUMMARY | 2024-10-17 03:05 | XMS_ITS | Encounter Summary ---
Author Organization [facility] Address [address] [place] [address] Care Team Providers Care Public Employment Mediator Name Role Phone Jonathan Amado MD Unavailable [phone] Jonathan Amado MD Primary Care Provider [phone] Reason for Visit * Reason Comments Immunotherapy Allergy shot Encounter Details Date Type Department Care Team (Latest Contact Info) Description 03/24/2024 3:00 PM CDT Clinical Support [facility] [address] [place] [phone] Allergic rhinitis due to pollen, unspecified seasonality [...] encounter Progress Notes * Ryanne Amaya - 03/24/2024 2:15 PM CDT This person is taking immunotherapy [...] upper arm SQ-ls 03/2403/30/2024 0.12 0.25 0.13 04/06/2024 0.15 0.25 0.10 04/13/2024 0.17 0.25 0.08 04/20/2024 0.20 0.25 0.05 04/27/2024 0.22 0.25 0.03 05/04/2024 0.25 0.25 0.00 05/11/2024 0.25 0.25 0.00 05/18/2024 0.25 0.25 0.00 05/25/2024 0.25 0.25 0.00 Physician in office: Brynn Lo MD Diagnosis: j30.1 Allergic rhinitis Epipen exp 12/2024 Department of Otolaryngology Head and Neck Surgery Patient Name: Pina Reynaga : 1970 Date: 03/24/2024 1. Did you bring your Epi-pen with you to clinic today? Yes 2. How are you feeling today? fine 3. How have you been feeling since your last shot? Not well, has cold A. What symptoms do you have? Congestion, runny nose, sinus pressure, sneezing cut weeds down and patient outside, made symptoms worse B. When do you have these symptoms? past week C. Are your symptoms mild, moderate or [...] since your last visit? Zyrtec the past few days, usually only prn 10. Do you have a temperature >101? no Injection time: 1420 Site: Right Upper Arm SQ Vial Contents diluted with 0.5ml Normal Saline: No Reaction: none Action taken: benadryl cream applied at injection site. Suggested take extra dose oral antihistamine this evening. Reviewed treatment for local reaction including call office for reaction > 2 inches. Reviewed use epi-pen for signs of anaphylaxis, and call 911. Pt & spouse acknowledge understanding. 1440Time ambulatory from clinic in no distress, color pink, respiratory unlabored, steady on feet, voices no complaints. Spouse with pt. documented in this encounter Plan of Treatment Upcoming Encounters Date Type Department Care Team (Late st Contact Info) Description 10/19/2024 3:40 PM CAMERA SUPERVISOR Clinical Support [facility] [address] [place] [phone] 10/26/2024 3:20 PM CAMERA SUPERVISOR Clinical Support [facility] [address] [place] [phone] 11/02/2024 3:40 PM CAMERA SUPERVISOR Clinical Support [facility] [address] [place] [phone] 11/09/2024 3:20 PM CAMERA SUPERVISOR Clinical Support [facility] [address] [place] [phone] documented as of this encounter Visit Diagnoses Diagnosis Allergic rhinitis due to pollen, unspecified seasonality- Primary documented in this encounter Care Teams Public Employment Mediator Relationship Specialty Start Date End Date Jonathan Amado MD [facility] [place] [phone] PCP - General Family Medicine 09/15/23 Jonathan Amado MD [facility] [place] [phone] 06/24/13 documented as of this encounter
--- OUTSIDE RECORDS SUMMARY | 2024-10-17 03:05 | XMS_ITS | Encounter Summary ---
Author Organization [facility] Address [facility] [facility] [place] [address] Care Team Providers Care Computer Tech Name Role Phone Jonathan Amado MD Unavailable [phone] Jonathan Amado MD Primary Care Provider [phone] Encounter Details Date Type Department Care Team (Latest Contact Info) Description 05/18/2024 Travel Social History Tobacco Use Types Packs/Day [...] st Contact Info) Description 10/19/2024 3:40 PM CHAPLAIN Clinical Support [facility] [address] [place] [phone] 10/26/2024 3:20 PM CHAPLAIN Clinical Support [facility] [address] [place] [phone] 11/02/2024 3:40 PM CHAPLAIN Clinical Support [facility] [address] [place] [phone] 11/09/2024 3:20 PM CHAPLAIN Clinical Support [facility] [address] [place] [phone] documented as of this encounter Visit Diagnoses Not on filedocumented in this encounter Care Teams Computer Tech Relationship Specialty Start Date End Date Jonathan Amado MD [address] [place] [phone] PCP - General Family Medicine 09/15/23 Jonathan Amado MD [address] [place] [phone] 06/24/13 documented as of this encounter
--- OUTSIDE RECORDS SUMMARY | 2024-10-17 03:05 | XMS_ITS | Encounter Summary ---
Author Organization [facility] Address [facility] [place] [address] Care Team Providers Care Medical Scientist Name Role Phone Jonathan Amado MD Unavailable [phone] Jonathan Amado MD Primary Care Provider [phone] Encounter Details Date Type Department Care Team (Latest Contact Info) Description 04/07/2024 Travel Social History Tobacco Use Types Packs/Day [...] st Contact Info) Description 10/19/2024 3:40 PM STAFF TECHNOLOGIST Clinical Support [facility] [address] [place] [phone] 10/26/2024 3:20 PM STAFF TECHNOLOGIST Clinical Support [facility] [address] [place] [phone] 11/02/2024 3:40 PM STAFF TECHNOLOGIST Clinical Support [facility] [address] [place] [phone] 11/09/2024 3:20 PM STAFF TECHNOLOGIST Clinical Support [facility] [address] [place] [phone] documented as of this encounter Visit Diagnoses Not on filedocumented in this encounter Care Teams Medical Scientist Relationship Specialty Start Date End Date Jonathan Amado MD [address] [place] [phone] PCP - General Family Medicine 09/15/23 Jonathan Amado MD [address] [place] [phone] 06/24/13 documented as of this encounter
--- OUTSIDE RECORDS SUMMARY | 2024-10-17 03:05 | XMS_ITS | Encounter Summary ---
Author Organization [facility] Address [facility] [facility] [address] [place] [address] Care Team Providers Care Broadcast Maintenance Engineer Name Role Phone Jonathan Amado MD Unavailable [phone] Jonathan Amado MD Primary Care Provider [phone] Encounter Details Date Type Department Care Team (Latest Contact Info) Description 07/06/2024 Travel Social History Tobacco Use Types Packs/Day [...] st Contact Info) Description 10/19/2024 3:40 PM RADIOLOGY PRACTITIONER ASSISTANT Clinical Support [facility] [address] [place] [phone] 10/26/2024 3:20 PM RADIOLOGY PRACTITIONER ASSISTANT Clinical Support [facility] [address] [place] [phone] 11/02/2024 3:40 PM RADIOLOGY PRACTITIONER ASSISTANT Clinical Support [facility] [address] [place] [phone] 11/09/2024 3:20 PM RADIOLOGY PRACTITIONER ASSISTANT Clinical Support [facility] [address] [place] [phone] documented as of this encounter Visit Diagnoses Not on filedocumented in this encounter Care Teams Broadcast Maintenance Engineer Relationship Specialty Start Date End Date Jonathan Amado MD [address] [place] [phone] PCP - General Family Medicine 09/15/23 Jonathan Amado MD [address] [place] [phone] 06/24/13 documented as of this encounter
--- OUTSIDE RECORDS SUMMARY | 2024-10-17 03:05 | XMS_ITS | Encounter Summary ---
Author Organization [facility] Address [employer] [facility] [place] [address] Care Team Providers Care Reinsurance Accountant Name Role Phone Jonathan Amado MD Unavailable [phone] Jonathan Amado MD Primary Care Provider [phone] Encounter Details Date Type Department Care Team (Latest Contact Info) Description 05/25/2024 Travel Social History Tobacco Use Types Packs/Day [...] st Contact Info) Description 10/19/2024 3:40 PM HISTOLOGIST Clinical Support [facility] [address] [place] [phone] 10/26/2024 3:20 PM HISTOLOGIST Clinical Support [facility] [address] [place] [phone] 11/02/2024 3:40 PM HISTOLOGIST Clinical Support [facility] [address] [place] [phone] 11/09/2024 3:20 PM HISTOLOGIST Clinical Support [facility] [address] [place] [phone] documented as of this encounter Visit Diagnoses Not on filedocumented in this encounter Care Teams Reinsurance Accountant Relationship Specialty Start Date End Date Jonathan Amado MD [address] [place] [phone] PCP - General Family Medicine 09/15/23 Jonathan Amado MD [address] [place] [phone] 06/24/13 documented as of this encounter
--- OUTSIDE RECORDS SUMMARY | 2024-10-17 03:05 | XMS_ITS | Encounter Summary ---
Author Organization [facility] Address [facility] [place] [address] Care Team Providers Care Advertising Director Name Role Phone Jonathan Amado MD Unavailable [phone] Jonathan Amado MD Primary Care Provider [phone] Encounter Details Date Type Department Care Team (Latest Contact Info) Description 10/04/2024 Travel Social History Tobacco Use Types Packs/Day [...] st Contact Info) Description 10/19/2024 3:40 PM POST OFFICE CLERK Clinical Support [facility] [address] [place] [phone] 10/26/2024 3:20 PM POST OFFICE CLERK Clinical Support [facility] [address] [place] [phone] 11/02/2024 3:40 PM POST OFFICE CLERK Clinical Support [facility] [address] [place] [phone] 11/09/2024 3:20 PM POST OFFICE CLERK Clinical Support [facility] [address] [place] [phone] documented as of this encounter Visit Diagnoses Not on filedocumented in this encounter Care Teams Advertising Director Relationship Specialty Start Date End Date Jonathan Amado MD [address] [place] [phone] PCP - General Family Medicine 09/15/23 Jonathan Amado MD [address] [place] [address] 06/24/13 documented as of this encounter
--- OUTSIDE RECORDS SUMMARY | 2024-10-17 03:05 | XMS_ITS | Encounter Summary ---
Author Organization [facility] Address [address] [facility] [place] [address] Care Team Providers Care Supervisor Assembly And Packing Name Role Phone Jonathan Amado MD Unavailable [phone] Jonathan Amado MD Primary Care Provider [phone]- [phone] Encounter Details Date Type Department Care Team (Latest Contact Info) Description 08/17/2024 3:40 PM PIE CHEF Clinical Support [facility] [address] [place] [phone] Allergic rhinitis due to pollen, unspecified [...] as of this encounter Progress Notes * Niru Valera MA - 08/17/2024 3:19 PM CST This person is taking immunotherapy for previously diagnosed allergic rhinitis. Serum calculations have been reviewed by Dr. Arellano on 05/03/2024 . Allergy Individual Dosing Allergy extracts mixed: 05/13/2024 and 6 months after date mixed. date [place] mix Mold mix Phenol saline Vial in [...] upper arm SQ-ls 07/27 0.25 0.25 0.00 Pt Left upper arm SQ-ls 08/0308/04/2024 0.25 0.25 0.00 pt Left upper arm SQ-ls 08/1008/11/2024 0.25 0.25 0.00 pt Left upper arm SQ-ar 08/1708/18/2024 0.25 0.25 0.00 Physician in office: Rajesh Allred NP Epipen exp 12/2024 Department of Otolaryngology Head and Neck Surgery Patient Name: Pina Reynaga : 1970 Date: 08/17/2024 1. Did you bring your Epi-pen with you to clinic today? Yes 2. How are you feeling today? fine 3. How have you been feeling since your last shot? About the same A. What symptoms do you have? None B. When do you have these symptoms? none C. Are your symptoms mild, moderate or [...] call 911. Pt & spouse acknowledge understanding. 1543 Time ambulatory from clinic in no distress, color pink, respiratory unlabored, steady on feet,voices no complaints. Spouse with pt. CHEF documented in this encounter Plan of Treatment Upcoming Encounters Date Type Department Care Team (Late st Contact Info) Description 10/19/2024 3:40 PM PIE CHEF Clinical Support [facility] [address] [place] [phone] 10/26/2024 3:20 PM PIE CHEF Clinical Support [facility] [address] [place] [phone] 11/02/2024 3:40 PM PIE CHEF Clinical Support [facility] [address] [place] [phone] 11/09/2024 3:20 PM PIE CHEF Clinical Support [facility] [address] [place] [phone] documented as of this encounter Visit Diagnoses Diagnosis Allergic rhinitis due to pollen, unspecified seasonality- Primary documented in this encounter Care Teams Supervisor Assembly And Packing Relationship Specialty Start Date End Date Jonathan Amado MD [address] [place] [phone] PCP - General Family Medicine 09/15/23 Jonathan Amado MD [facility] [place] [address] 06/24/13 documented as of this encounter
--- OUTSIDE RECORDS SUMMARY | 2024-10-17 03:05 | XMS_ITS | Encounter Summary ---
Author Organization [facility] Address [address] [facility] [place] [address] Care Team Providers Care Wildlife Ecology Professor Name Role Phone Jonathan Amado MD Unavailable [phone] Jonathan Amado MD Primary Care Provider [phone] Encounter Details Date Type Department Care Team (Latest Contact Info) Description 07/13/2024 3:40 PM CDT Clinical Support [facility] [address] [place] [phone] Allergic rhinitis due to pollen, unspecified [...] Progress Notes * Niru Valera MA - 07/13/2024 3:32 PM CDT This person is taking immunotherapy for previously diagnosed allergic rhinitis. Serum calculations have been reviewed by Dr. Arellano on 05/03/2024 . Allergy Individual Dosing Allergy extracts mixed: 05/13/2024 and 6 months after date mixed. date [place] mix Mold mix Phenol saline Vial in series verified with Signature & location 06/09/2024 0.25 0.05 0.20 pt Left upper arm SQ-ls 06/15/2024 06/16/2024 0.25 0.10 0.15 pt Left upper arm SQ-ls 06/2306/23/2024 0.25 0.15 0.10 pt Left upper arm SQ-ls 06/2906/30/2024 0.25 0.20 0.05 pt Left upper arm SQ-ls 07/0607/07/2024 0.25 0.25 0.00 pt Left upper arm SQ-ar 07/1307/14/2024 0.25 0.25 0.00 07/21/2024 0.25 0.25 0.00 0.25 0.25 0.00 08/04/2024 0.25 0.25 0.00 08/11/2024 0.25 0.25 0.00 08/18/2024 0.25 0.25 0.00 Physician in office: Houston Pantoja MD Diagnosis: j30.1 Allergic rhinitis Epipen exp 12/2024 Department of Otolaryngology Head and Neck Surgery Patient Name: Pina Reynaga : 1970 Date: 07/13/2024 1. Did you bring your Epi-pen with [...] call 911. Pt & spouse acknowledge understanding. 1553 Time ambulatory from clinic in no distress, color pink, respiratory unlabored, steady on feet,voices no complaints. Spouse with pt. documented in this encounter Plan of Treatment Upcoming Encounters Date Type Department Care Team (Late st Contact Info) Description 10/19/2024 3:40 PM LEARNING OPERATIONS SPECIALIST Clinical Support [facility] [address] [place] [phone] 10/26/2024 3:20 PM LEARNING OPERATIONS SPECIALIST Clinical Support [facility] [address] [place] [phone] 11/02/2024 3:40 PM LEARNING OPERATIONS SPECIALIST Clinical Support [facility] [address] [place] [phone] 11/09/2024 3:20 PM LEARNING OPERATIONS SPECIALIST Clinical Support [facility] [address] [place] [phone] documented as of this encounter Visit Diagnoses Diagnosis Allergic rhinitis due to pollen, unspecified seasonality- Primary documented in this encounter Care Teams Wildlife Ecology Professor Relationship Specialty Start Date End Date Jonathan Amado MD [address] [place] [phone] PCP - General Family Medicine 09/15/23 Jonathan Amado MD [facility] [place] [address] 06/24/13 documented as of this encounter
--- OUTSIDE RECORDS SUMMARY | 2024-10-17 03:05 | XMS_ITS | Encounter Summary ---
Author Organization [facility] Address [address] [facility] [place] [address] Care Team Providers Care Certified Dietary Manager Name Role Phone Jonathan Amado MD Unavailable [phone] Jonathan Amado MD Primary Care Provider [phone] Encounter Details Date Type Department Care Team (Latest Contact Info) Description 09/28/2024 3:20 PM ISOBUTYLENE OPERATOR CHIEF Clinical Support [facility] [address] [place] [phone] Allergic rhinitis due to pollen, unspecified [...] encounter Progress Notes * Jose LuisRyanne - 09/28/2024 3:33 PM CST This person is taking immunotherapy [...] upper arm SQ-ls 10/05/2024 0.25 0.25 0.00 10/12/2024 0.25 0.25 0.00 10/19/2024 0.25 0.25 0.00 10/26/2024 0.25 0.25 0.00 11/02/2024 0.25 0.25 0.00 11/09/2024 0.25 0.25 0.00 Physician in office: Houston Pantoja MD Epipen exp 12/2024 Department of Otolaryngology Head and Neck Surgery Patient Name: Pina Reynaga : 1970 Date: 1. Did you bring your Epi-pen with [...] feet, voices no complaints. Spouse with pt.pt UTYLENE OPERATOR CHIEF documented in this encounter Plan of Treatment Upcoming Encounters Date Type Department Care Team (Late st Contact Info) Description 10/19/2024 3:40 PM ISOBUTYLENE OPERATOR CHIEF Clinical Support [facility] [address] [place] [phone] 10/26/2024 3:20 PM ISOBUTYLENE OPERATOR CHIEF Clinical Support [facility] [address] [place] [phone] 11/02/2024 3:40 PM ISOBUTYLENE OPERATOR CHIEF Clinical Support [facility] [address] [place] [phone] 11/09/2024 3:20 PM ISOBUTYLENE OPERATOR CHIEF Clinical Support [facility] [address] [place] [phone] documented as of this encounter Visit Diagnoses Diagnosis Allergic rhinitis due to pollen, unspecified seasonality- Primary documented in this encounter Care Teams Certified Dietary Manager Relationship Specialty Start Date End Date Jonathan Amaod MD [address] [place] [phone] PCP - General Family Medicine 09/15/23 Jonathan Amado MD [address] [place] [phone] 06/24/13 documented as of this encounter
--- OUTSIDE RECORDS SUMMARY | 2024-10-17 03:05 | XMS_ITS | Encounter Summary ---
Author Organization [facility] Address [address] [facility] [place] [address] Care Team Providers Care Section Weaver Name Role Phone Jonathan Amado MD Unavailable [phone] Jonathan Amado MD Primary Care Provider [phone] Reason for Visit * Reason Comments Immunotherapy Allergy shot Encounter Details Date Type Department Care Team (Latest Contact Info) Description 09/14/2024 3:40 PM E COMMERCE STRATEGIST Clinical Support [facility] [address] [place] [phone] Allergic rhinitis due to pollen, unspecified seasonality [...] encounter Progress Notes * Ryanne Amaya - 09/14/2024 3:36 PM CST This person is taking immunotherapy [...] upper arm SQ-ls 09/21/2024 0.25 0.20 0.05 09/28/2024 0.25 0.25 0.00 10/05/2024 0.25 0.25 0.00 10/12/2024 0.25 0.25 0.00 10/19/2024 0.25 0.25 0.00 10/26/2024 0.25 0.25 0.00 11/02/2024 0.25 0.25 0.00 11/09/2024 0.25 0.25 0.00 Physician in office: Houston Pantoja MD Epipen exp 12/2024 Department of Otolaryngology Head and Neck Surgery Patient Name: Pina Reynaga : 1970 Date: 09/14/2024 1. Did you bring your Epi-pen with you to clinic today? Yes 2. How are you feeling today? Pretty good. 3. How have you been feeling since your last shot? ok A. What symptoms do you have? Left ear congestion B. When do you have these symptoms? Started a couple days ago all the time C. Are your symptoms mild, moderate or [...] have a temperature >101? no Injection time: 1540 Site: Left Upper Arm SQ Vial Contents diluted with 0.5ml Normal Saline: No Reaction: none Action taken: benadryl cream applied at injection site. At previous appointment reviewed treatment for local reaction including call office for reaction > 2 inches,also reviewed use epi-pen for signs of anaphylaxis, and call 911. Pt & spouse acknowledge understanding. 1600Time ambulatory from clinic in no distress, color pink, respiratory unlabored, steady on feet, voices no complaints. Spouse with pt. E COMMERCE STRATEGIST documented in this encounter Plan of Treatment Upcoming Encounters Date Type Department Care Team (Late st Contact Info) Description 10/19/2024 3:40 PM E COMMERCE STRATEGIST Clinical Support [facility] [address] [place] [phone] 10/26/2024 3:20 PM E COMMERCE STRATEGIST Clinical Support [facility] [address] [place] [phone] 11/02/2024 3:40 PM E COMMERCE STRATEGIST Clinical Support [facility] [address] [place] [phone] 11/09/2024 3:20 PM E COMMERCE STRATEGIST Clinical Support [facility] [address] [place] [phone] documented as of this encounter Visit Diagnoses Diagnosis Allergic rhinitis due to pollen, unspecified seasonality- Primary documented in this encounter Care Teams Section Weaver Relationship Specialty Start Date End Date Jonathan Amado MD [address] [place] [phone] PCP - General Family Medicine 09/15/23 Jonathan Amado MD [address] [place] [phone] 06/24/13 documented as of this encounter
--- OUTSIDE RECORDS SUMMARY | 2024-10-17 03:05 | XMS_ITS | Encounter Summary ---
Author Organization [facility] Address [address] [facility] [place] [address] Care Team Providers Care Glass Sander Name Role Phone Jonathan Amado MD Unavailable [phone] Jonathan Amado MD Primary Care Provider [phone] Reason for Visit * Reason Comments Immunotherapy Allergy shot Encounter Details Date Type Department Care Team (Latest Contact Info) Description 08/03/2024 3:40 PM CDT Clinical Support [facility] [address] [place] [phone] Allergic rhinitis due to pollen, unspecified [...] encounter Progress Notes * Ryanne Amaya - 08/03/2024 3:22 PM CDT This person is taking immunotherapy for previously diagnosed allergic rhinitis. Serum calculations have been reviewed by Dr. Arellano on 05/03/2024 . Allergy Individual Dosing Allergy extracts mixed: 05/13/2024 and 6 months after date mixed. date [place] mix Mold mix Phenol saline Vial in series verified with Signature & location 06/09/2024 0.25 0.05 0.20 pt Left upper arm SQ-ls 06/15/2024 06/16/2024 0.25 0.10 0.15 pt Left upper arm SQ-ls 9/11 06/23/2024 0.25 0.15 0.10 pt Left upper arm SQ-ls 06/2906/30/2024 0.25 0.20 0.05 pt Left upper arm SQ-ls 07/0607/07/2024 0.25 0.25 0.00 pt Left upper arm SQ-ar 07/1307/14/2024 0.25 0.25 0.00 pt Left upper arm SQ-ls 07/2007/21/2024 0.25 0.25 0.00 pt Left upper arm SQ-ls 07/27 0.25 0.25 0.00 Pt Left upper arm SQ-ls 08/0308/04/2024 0.25 0.25 0.00 08/11/2024 0.25 0.25 0.00 08/18/2024 0.25 0.25 0.00 Physician in office: Houston Pantoja MD Epipen exp 12/2024 Department of Otolaryngology Head and Neck Surgery Patient Name: Pina Reynaga : 1970 Date: 08/03/2024 1. Did you bring your Epi-pen with [...] have a temperature >101? no Injection time: 1523 Site: Left Upper Arm SQ Vial Contents diluted with 0.5ml Normal Saline: No Reaction: none Action taken: benadryl cream applied at injection site. Reviewed treatment for local reaction including call office for reaction > 2 inches. Reviewed use epi-pen for signs of anaphylaxis, and call 911. Pt & spouse acknowledge understanding. 2103Time ambulatory from clinic in no distress, color pink, respiratory unlabored, steady on feet, voices no complaints. Spouse with pt. documented in this encounter Plan of Treatment Upcoming Encounters Date Type Department Care Team (Late st Contact Info) Description 10/19/2024 3:40 PM ORNAMENTAL PAINTER Clinical Support [facility] [address] [place] [phone] 10/26/2024 3:20 PM ORNAMENTAL PAINTER Clinical Support [facility] [address] [place] [phone] 11/02/2024 3:40 PM ORNAMENTAL PAINTER Clinical Support [facility] [address] [place] [phone] 11/09/2024 3:20 PM ORNAMENTAL PAINTER Clinical Support [facility] [address] [place] [phone] documented as of this encounter Visit Diagnoses Diagnosis Allergic rhinitis due to pollen, unspecified seasonality- Primary documented in this encounter Care Teams Glass Sander Relationship Specialty Start Date End Date Jonathan Amado MD [address] [place] [phone] PCP - General Family Medicine 09/15/23 Jonathan Amado MD [facility] [place] [address] 06/24/13 documented as of this encounter
--- OUTSIDE RECORDS SUMMARY | 2024-10-17 03:05 | XMS_ITS | Encounter Summary ---
Author Organization [facility] Address [address] [place] [address] Care Team Providers Care Segment Producer Name Role Phone Jonathan Amado MD Unavailable [phone] Jonathan Amado MD Primary Care Provider [phone] Encounter Details Date Type Department Care Team (Latest Contact Info) Description 05/18/2024 3:40 PM CDT Clinical Support [facility] [address] [place] [phone] Allergic rhinitis due to pollen, unspecified [...] Progress Notes * Niru Valera MA - 05/18/2024 3:19 PM CDT This person is taking immunotherapy [...] arm SQ- ar 05/1805/18/2024 0.25 0.25 0.00 05/25/2024 0.25 0.25 0.00 Physician in office: Dr. Werner MD Diagnosis: j30.1 Allergic rhinitis Epipen exp 12/2024 Department of Otolaryngology Head and Neck Surgery Patient Name: Pina Reynaga : 1970 Date: 05/18/2024 1. Did you bring your Epi-pen with [...] have a temperature >101? no Injection time: 1527 Site: Left Upper Arm SQ Vial Contents diluted with 0.5ml Normal Saline: No Reaction: none Action taken: benadryl cream applied at injection site. Suggested take extra dose oral antihistamine this evening. Reviewed treatment for local reaction including call office for reaction > 2 inches. Reviewed use epi-pen for signs of anaphylaxis, and call 911. Pt & spouse acknowledge understanding. 1544 Time ambulatory from clinic in no distress, color pink, respiratory unlabored, steady on feet,voices no complaints. Spouse with pt. documented in this encounter Plan of Treatment Upcoming Encounters Date Type Department Care Team (Late st Contact Info) Description 10/19/2024 3:40 PM KELLY MACHINE OPERATOR Clinical Support [facility] [address] [place] [phone] 10/26/2024 3:20 PM KELLY MACHINE OPERATOR Clinical Support [facility] [address] [place] [phone] 11/02/2024 3:40 PM KELLY MACHINE OPERATOR Clinical Support [facility] [address] [place] [phone] 11/09/2024 3:20 PM KELLY MACHINE OPERATOR Clinical Support [facility] [address] [place] [phone] documented as of this encounter Visit Diagnoses Diagnosis Allergic rhinitis due to pollen, unspecified seasonality- Primary documented in this encounter Care Teams Segment Producer Relationship Specialty Start Date End Date Jonathan Amado MD [address] [place] [phone] PCP - General Family Medicine 09/15/23 Jonathan Amado MD [address] [place] [phone] 06/24/13 documented as of this encounter
--- OUTSIDE RECORDS SUMMARY | 2024-10-17 03:05 | XMS_ITS | Encounter Summary ---
Author Organization [facility] Address [address] [place] [address] Care Team Providers Care Marketing Administrator Name Role Phone Jonathan Amado MD Unavailable [phone] Jonathan Amado MD Primary Care Provider [phone] Encounter Details Date Type Department Care Team (Latest Contact Info) Description 08/31/2024 3:40 PM FISHERY BIOLOGIST Clinical Support [facility] [address] [place] [phone] Allergic rhinitis due to pollen, unspecified [...] Progress Notes * Niru Valera MA - 08/31/2024 3:19 PM CST This person is taking immunotherapy for previously diagnosed allergic rhinitis. Serum calculations have been reviewed with Dr. Arellano 08/05/2024. Allergy Individual Dosing Allergy extracts mixed: 08/10/2024 and 6 months after date mixed. date weed mix mold Phenol saline Vial in series verified with Signature & location 08/31/2024 0.25 0.05 0.20 pt Left upper arm SQ-ar 09/07/2024 0.25 0.10 0.15 09/14/2024 0.25 0.15 0.10 09/21/2024 0.25 0.20 0.05 09/28/2024 0.25 0.25 0.00 10/05/2024 0.25 0.25 0.00 10/12/2024 0.25 0.25 0.00 10/19/2024 0.25 0.25 0.00 10/26/2024 0.25 0.25 0.00 11/02/2024 0.25 0.25 0.00 11/09/2024 0.25 0.25 0.00 Physician in office: Houston Pantoja MD Epipen exp 12/2024 Department of Otolaryngology Head and Neck Surgery Patient Name: Pina Reynaga : 1970 Date: 08/24/2024 1. Did you bring your Epi-pen with you to clinic today? Yes 2. How are you feeling today? Pretty good. 3. How have you been feeling since your last shot? About the same. A. What symptoms do you have? None [...] call 911. Pt & spouse acknowledge understanding. 1546 Time ambulatory from clinic in no distress, color pink, respiratory unlabored, steady on feet,voices no complaints. Spouse with pt. ERY BIOLOGIST documented in this encounter Plan of Treatment Upcoming Encounters Date Type Department Care Team (Late st Contact Info) Description 10/19/2024 3:40 PM FISHERY BIOLOGIST Clinical Support [facility] [address] [place] [phone] 10/26/2024 3:20 PM FISHERY BIOLOGIST Clinical Support [facility] [address] [place] [phone] 11/02/2024 3:40 PM FISHERY BIOLOGIST Clinical Support [facility] [address] [place] [phone] 11/09/2024 3:20 PM FISHERY BIOLOGIST Clinical Support [facility] [address] [place] [phone] documented as of this encounter Visit Diagnoses Diagnosis Allergic rhinitis due to pollen, unspecified seasonality- Primary documented in this encounter Care Teams Marketing Administrator Relationship Specialty Start Date End Date Jonathan Amado MD [address] [place] [phone] PCP - General Family Medicine 09/15/23 Jonathan Amado MD [address] [place] [phone] 06/24/13 documented as of this encounter
--- OUTSIDE RECORDS SUMMARY | 2024-10-17 03:05 | XMS_ITS | Encounter Summary ---
Author Organization [facility] Address [address] [facility] [place] [address] Care Team Providers Care Risk Control Field Representative Name Role Phone Jonathan Amado MD Unavailable [phone] Jonathan Amado MD Primary Care Provider [phone] Reason for Visit * Reason Comments Immunotherapy Allergy shot Encounter Details Date Type Department Care Team (Latest Contact Info) Description 07/06/2024 3:40 PM CDT Clinical Support [facility] [address] [place] [phone] Allergic rhinitis due to pollen, unspecified [...] encounter Progress Notes * Ryanne Amaya - 07/06/2024 2:57 PM CDT This person is taking immunotherapy for previously diagnosed allergic rhinitis. Serum calculations have been reviewed by Dr. Arellano on 05/03/2024 . Allergy Individual Dosing Allergy extracts mixed: 05/13/2024 and 6 months after date mixed. date Wiggins mix Mold mix Phenol saline Vial in series verified with Signature & location 06/09/2024 0.25 0.05 0.20 pt Left upper arm SQ-ls 06/15/2024 06/16/2024 0.25 0.10 0.15 pt Left upper arm SQ-ls 06/2306/23/2024 0.25 0.15 0.10 pt Left upper arm SQ-ls 06/2906/30/2024 0.25 0.20 0.05 pt Left upper arm SQ-ls 07/0607/07/2024 0.25 0.25 0.00 07/14/2024 0.25 0.25 0.00 07/21/2024 0.25 0.25 0.00 0.25 0.25 0.00 08/04/2024 0.25 0.25 0.00 08/11/2024 0.25 0.25 0.00 08/18/2024 0.25 0.25 0.00 Physician in office: Houston Pantoja MD Diagnosis: j30.1 Allergic rhinitis Epipen exp 12/2024 Department of Otolaryngology Head and Neck Surgery Patient Name: Pina Reynaga : 1970 Date: 07/06/2024 1. Did you bring your Epi-pen with you to clinic today? Yes 2. How are you feeling today? ok 3. How have you been feeling since your last shot? About the same A. What symptoms do you have? Congestion, runny nose, sinus pressure, sneezing for over a month. Gagging on PND B. When do [...] have a temperature >101? no Injection time: 1500 Site: left Upper Arm SQ Vial Contents diluted with 0.5ml Normal Saline: No Reaction: none Action taken: benadryl cream applied at injection site. Reviewed treatment for local reaction including call office for reaction > 2 inches. Reviewed use epi-pen for signs of anaphylaxis, and call 911. Pt & spouse acknowledge understanding. 1520Time ambulatory from clinic in no distress, color pink, respiratory unlabored, steady on feet, voices no complaints. Spouse with pt. documented in this encounter Plan of Treatment Upcoming Encounters Date Type Department Care Team (Late st Contact Info) Description 10/19/2024 3:40 PM SHOE CUTTER Clinical Support [facility] [address] [place] [phone] 10/26/2024 3:20 PM SHOE CUTTER Clinical Support [facility] [address] [place] [phone] 11/02/2024 3:40 PM SHOE CUTTER Clinical Support [facility] [address] [place] [phone] 11/09/2024 3:20 PM SHOE CUTTER Clinical Support [facility] [address] [place] [phone] documented as of this encounter Visit Diagnoses Diagnosis Allergic rhinitis due to pollen, unspecified seasonality- Primary documented in this encounter Care Teams Risk Control Field Representative Relationship Specialty Start Date End Date Jonathan Amado MD [address] [place] [phone] PCP - General Family Medicine 09/15/23 Jonathan Amado MD [facility] [place] [address] 06/24/13 documented as of this encounter
--- OUTSIDE RECORDS SUMMARY | 2024-10-17 03:05 | XMS_ITS | Encounter Summary ---
Author Organization [facility] Address [facility] [facility] [place] [address] Care Team Providers Care Geographic Information System Analyst Name Role Phone Jonathan Amado MD Unavailable [phone] Jonathan Amado MD Primary Care Provider [phone] Encounter Details Date Type Department Care Team (Latest Contact Info) Description 03/17/2024 Travel Social History Tobacco Use Types Packs/Day [...] st Contact Info) Description 10/19/2024 3:40 PM SPORTS MARKETING COORDINATOR Clinical Support [facility] [address] [place] [phone] 10/26/2024 3:20 PM SPORTS MARKETING COORDINATOR Clinical Support [facility] [address] [place] [phone] 11/02/2024 3:40 PM SPORTS MARKETING COORDINATOR Clinical Support [facility] [address] [place] [phone] 11/09/2024 3:20 PM SPORTS MARKETING COORDINATOR Clinical Support [facility] [address] [place] [phone] documented as of this encounter Visit Diagnoses Not on filedocumented in this encounter Care Teams Geographic Information System Analyst Relationship Specialty Start Date End Date Jonathan Amado MD [address] [place] [phone] PCP - General Family Medicine 09/15/23 Jonathan Amado MD [address] [place] [phone] 06/24/13 documented as of this encounter
--- OUTSIDE RECORDS SUMMARY | 2024-10-17 03:05 | XMS_ITS | Encounter Summary ---
Author Organization [facility] Address [address] [place] [place] [address] Care Team Providers Care County Court Judge Name Role Phone Jonathan Amado MD Unavailable [phone] Jonathan Amado MD Primary Care Provider [phone] Reason for Visit * Reason Comments Immunotherapy Allergy shot Encounter Details Date Type Department Care Team (Latest Contact Info) Description 04/07/2024 3:20 PM CDT Clinical Support [facility] [address] [place] [phone] Seasonal allergic rhinitis due to pollen Social [...] encounter Progress Notes * Ryanne Amaya - 04/07/2024 3:20 PM CDT This person is taking immunotherapy [...] upper arm SQ-ls 04/0704/13/2024 0.17 0.25 0.08 04/20/2024 0.20 0.25 0.05 04/27/2024 0.22 0.25 0.03 05/04/2024 0.25 0.25 0.00 05/11/2024 0.25 0.25 0.00 05/18/2024 0.25 0.25 0.00 05/25/2024 0.25 0.25 0.00 Physician in office: Brynn Lo MD Diagnosis: j30.1 Allergic rhinitis Epipen exp 12/2024 Department of Otolaryngology Head and Neck Surgery Patient Name: Pina Reynaga : 1970 Date: 04/07/2024 1. Did you bring your Epi-pen with you to clinic today? Yes 2. How are you feeling today? good 3. How have you been feeling since your last shot? ok A. What symptoms do you have? Congestion, [...] st Contact Info) Description 10/19/2024 3:40 PM LEGISLATIVE DIRECTOR Clinical Support [facility] [address] [place] [phone] 10/26/2024 3:20 PM LEGISLATIVE DIRECTOR Clinical Support [facility] [address] [place] [phone] 11/02/2024 3:40 PM LEGISLATIVE DIRECTOR Clinical Support [facility] [address] [place] [phone] 11/09/2024 3:20 PM LEGISLATIVE DIRECTOR Clinical Support [facility] [address] [place] [phone] documented as of this encounter Visit Diagnoses Diagnosis Seasonal allergic rhinitis due to pollen- Primary documented in this encounter Care Teams County Court Judge Relationship Specialty Start Date End Date Jonathan Amado MD [facility] [place] [address] PCP - General Family Medicine 09/15/23 Jonathan Amado MD [facility] [place] [address] 06/24/13 documented as of this encounter
--- OUTSIDE RECORDS SUMMARY | 2024-10-17 03:05 | XMS_ITS | Encounter Summary ---
Author Organization [facility] Address [facility] [facility] [place] [address] Care Team Providers Care Crm Analyst Name Role Phone Jonathan Amado MD Unavailable [phone] Jonathan Amado MD Primary Care Provider [phone] Encounter Details Date Type Department Care Team (Latest Contact Info) Description 06/01/2024 Travel Social History Tobacco Use Types Packs/Day [...] st Contact Info) Description 10/19/2024 3:40 PM DESIGN CHIEF Clinical Support [facility] [address] [place] [phone] 10/26/2024 3:20 PM DESIGN CHIEF Clinical Support [facility] [address] [place] [phone] 11/02/2024 3:40 PM DESIGN CHIEF Clinical Support [facility] [address] [place] [phone] 11/09/2024 3:20 PM DESIGN CHIEF Clinical Support [facility] [address] [place] [phone] documented as of this encounter Visit Diagnoses Not on filedocumented in this encounter Care Teams Crm Analyst Relationship Specialty Start Date End Date Jonathan Amado MD [address] [place] [phone] PCP - General Family Medicine 09/15/23 Jonathan Amado MD [address] [place] [phone] 06/24/13 documented as of this encounter
--- OUTSIDE RECORDS SUMMARY | 2024-10-17 03:05 | XMS_ITS | Encounter Summary ---
Author Organization [facility] Address [address] [facility] [place] [address] Care Team Providers Care Sinter Press Operator Name Role Phone Jonathan Amado MD Unavailable [phone] Jonathan Amado MD Primary Care Provider [phone] Reason for Visit * Reason Comments Immunotherapy Allergy shot Encounter Details Date Type Department Care Team (Latest Contact Info) Description 09/07/2024 3:40 PM INSPECTOR GLASS OR MIRROR Clinical Support [facility] [address] [place] [phone] Allergic rhinitis due to pollen, unspecified seasonality [...] encounter Progress Notes * Ryanne Amaya - 09/07/2024 2:41 PM CST This person is taking immunotherapy [...] upper arm SQ-ls 09/14/2024 0.25 0.15 0.10 09/21/2024 0.25 0.20 0.05 09/28/2024 0.25 0.25 0.00 10/05/2024 0.25 0.25 0.00 10/12/2024 0.25 0.25 0.00 10/19/2024 0.25 0.25 0.00 10/26/2024 0.25 0.25 0.00 11/02/2024 0.25 0.25 0.00 11/09/2024 0.25 0.25 0.00 Physician in office: Houston Pantoja MD Epipen exp 12/2024 Department of Otolaryngology Head and Neck Surgery Patient Name: Pina Reynaga : 1970 Date: 09/07/2024 1. Did you bring your Epi-pen with you to clinic today? Yes 2. How are you feeling today? Pretty good. 3. How have you been feeling since your last shot? ok A. What symptoms do you have? runny nose B. When do you have these symptoms? [...] denies 8. Are you on any beta amrgy antihypertensives? no 9. Have you taken any antihistamines since your last visit? yes 10. Do you have a temperature >101? no Injection time: 1445 Site: Left Upper Arm SQ Vial Contents diluted with 0.5ml Normal Saline: No Reaction: none Action taken: benadryl cream applied at injection site. Reviewed treatment for local reaction including call office for reaction > 2 inches. Reviewed use epi-pen for signs of anaphylaxis, and call 911. Pt & spouse acknowledge understanding. 1505 Time ambulatory from clinic in no distress, color pink, respiratory unlabored, steady on feet,voices no complaints. Spouse with pt. ECTOR GLASS OR MIRROR documented in this encounter Plan of Treatment Upcoming Encounters Date Type Department Care Team (Late st Contact Info) Description 10/19/2024 3:40 PM INSPECTOR GLASS OR MIRROR Clinical Support [facility] [address] [place] [phone] 10/26/2024 3:20 PM INSPECTOR GLASS OR MIRROR Clinical Support [facility] [address] [place] [phone] 11/02/2024 3:40 PM INSPECTOR GLASS OR MIRROR Clinical Support [facility] [address] [place] [phone] 11/09/2024 3:20 PM INSPECTOR GLASS OR MIRROR Clinical Support [facility] [address] [place] [phone] documented as of this encounter Visit Diagnoses Diagnosis Allergic rhinitis due to pollen, unspecified seasonality- Primary documented in this encounter Care Teams Sinter Press Operator Relationship Specialty Start Date End Date Jonathan Amado MD [address] [place] [phone] PCP - General Family Medicine 09/15/23 Jonathan Amado MD [address] [place] [phone] 06/24/13 documented as of this encounter
--- OUTSIDE RECORDS SUMMARY | 2024-10-17 03:05 | XMS_ITS | Encounter Summary ---
Author Organization [facility] Address [facility] [facility] [place] [address] Care Team Providers Care Protective Service Specialist Name Role Phone Jonathan Amado MD Unavailable [phone] Jonathan Amado MD Primary Care Provider [phone] Encounter Details Date Type Department Care Team (Latest Contact Info) Description 06/29/2024 Travel Social History Tobacco Use Types Packs/Day [...] st Contact Info) Description 10/19/2024 3:40 PM CASTING SORTER Clinical Support [facility] [address] [place] [phone] 10/26/2024 3:20 PM CASTING SORTER Clinical Support [facility] [address] [place] [phone] 11/02/2024 3:40 PM CASTING SORTER Clinical Support [facility] [address] [place] [phone] 11/09/2024 3:20 PM CASTING SORTER Clinical Support [facility] [address] [place] [phone] documented as of this encounter Visit Diagnoses Not on filedocumented in this encounter Care Teams Protective Service Specialist Relationship Specialty Start Date End Date Jonathan Amado MD [address] [place] [phone] PCP - General Family Medicine 09/15/23 Jonathan Amado MD [address] [place] [phone] 06/24/13 documented as of this encounter
--- OUTSIDE RECORDS SUMMARY | 2024-10-17 03:05 | XMS_ITS | Encounter Summary ---
Author Organization [facility] Address [facility] [facility] [place] [address] Care Team Providers Care Exhibit Designer Name Role Phone Jonathan Amado MD Unavailable [phone] Jonathan Amado MD Primary Care Provider [phone] Encounter Details Date Type Department Care Team (Latest Contact Info) Description 09/21/2024 Travel Social History Tobacco Use Types Packs/Day [...] st Contact Info) Description 10/19/2024 3:40 PM RHEUMATOLOGY SPECIALIST Clinical Support [facility] [address] [place] [phone] 10/26/2024 3:20 PM RHEUMATOLOGY SPECIALIST Clinical Support [facility] [address] [place] [phone] 11/02/2024 3:40 PM RHEUMATOLOGY SPECIALIST Clinical Support [facility] [address] [place] [phone] 11/09/2024 3:20 PM RHEUMATOLOGY SPECIALIST Clinical Support [facility] [address] [place] [phone] documented as of this encounter Visit Diagnoses Not on filedocumented in this encounter Care Teams Exhibit Designer Relationship Specialty Start Date End Date Jonathan Amado MD [address] [place] [phone] PCP - General Family Medicine 09/15/23 Jonathan Amado MD [address] [place] [phone] 06/24/13 documented as of this encounter
--- OUTSIDE RECORDS SUMMARY | 2024-10-17 03:05 | XMS_ITS | Encounter Summary ---
Author Organization [facility] Address [address] [facility] [place] [address] Care Team Providers Care Linux Vmware Administrator Name Role Phone Jonathan Amado MD Unavailable [phone] Jonathan Amado MD Primary Care Provider [phone] Reason for Visit * Reason Comments Immunotherapy Allergy shot Encounter Details Date Type Department Care Team (Latest Contact Info) Description 03/17/2024 3:00 PM CDT Clinical Support [facility] [address] [place] [phone] Allergic rhinitis due to pollen, unspecified [...] encounter Progress Notes * Ryanne Amaya - 03/17/2024 2:18 PM CDT This person is taking immunotherapy [...] upper arm SQ-ls 03/23/2024 0.10 0.25 0.15 03/30/2024 0.12 0.25 0.13 04/06/2024 0.15 0.25 0.10 04/13/2024 0.17 0.25 0.08 04/20/2024 0.20 0.25 0.05 04/27/2024 0.22 0.25 0.03 05/04/2024 0.25 0.25 0.00 05/11/2024 0.25 0.25 0.00 05/18/2024 0.25 0.25 0.00 05/25/2024 0.25 0.25 0.00 Physician in office: Brynn Lo MD Diagnosis: j30.1 Allergic rhinitis Epipen exp 12/2024 Department of Otolaryngology Head and Neck Surgery Patient Name: Pina Reynaga : 1970 Date: 03/16/2024 1. Did you bring your Epi-pen with you to clinic today? Yes 2. How are you feeling today? fine 3. How have you been feeling since your last shot? Fine. A. What symptoms do you have? Cold, congestion B. When do you have these symptoms? Last couple days C. Are your symptoms mild, moderate or [...] st Contact Info) Description 10/19/2024 3:40 PM MEDICAL CONCIERGE Clinical Support [facility] [address] [place] [phone] 10/26/2024 3:20 PM MEDICAL CONCIERGE Clinical Support [facility] [address] [place] [phone] 11/02/2024 3:40 PM MEDICAL CONCIERGE Clinical Support [facility] [address] [place] [phone] 11/09/2024 3:20 PM MEDICAL CONCIERGE Clinical Support [facility] [address] [place] [phone] documented as of this encounter Visit Diagnoses Diagnosis Allergic rhinitis due to pollen, unspecified seasonality- Primary documented in this encounter Care Teams Linux Vmware Administrator Relationship Specialty Start Date End Date Jonathan Amado MD [address] [place] [phone] PCP - General Family Medicine 09/15/23 Jonathan Amado MD [address] [place] [phone] 06/24/13 documented as of this encounter
--- OUTSIDE RECORDS SUMMARY | 2024-10-17 03:05 | XMS_ITS | Encounter Summary ---
Author Organization [facility] Address [facility] [facility] [place] [address] Care Team Providers Care Hogshead Weigher Name Role Phone Jonathan Amado MD Unavailable [phone] Jonathan Amado MD Primary Care Provider [phone] Encounter Details Date Type Department Care Team (Latest Contact Info) Description 08/03/2024 Travel Social History Tobacco Use Types Packs/Day [...] st Contact Info) Description 10/19/2024 3:40 PM BUSINESS OBJECTS CONSULTANT Clinical Support [facility] [address] [place] [phone] 10/26/2024 3:20 PM BUSINESS OBJECTS CONSULTANT Clinical Support [facility] [address] [place] [phone] 11/02/2024 3:40 PM BUSINESS OBJECTS CONSULTANT Clinical Support [facility] [address] [place] [phone] 11/09/2024 3:20 PM BUSINESS OBJECTS CONSULTANT Clinical Support [facility] [address] [place] [phone] documented as of this encounter Visit Diagnoses Not on filedocumented in this encounter Care Teams Hogshead Weigher Relationship Specialty Start Date End Date Jonathan Amado MD [address] [place] [phone] PCP - General Family Medicine 09/15/23 Jonathan Amado MD [address] [place] [phone] 06/24/13 documented as of this encounter
--- OUTSIDE RECORDS SUMMARY | 2024-10-17 03:05 | XMS_ITS | Encounter Summary ---
Author Organization [facility] Address [address] [place] [address] Care Team Providers Care Meat Press Operator Name Role Phone Jonathan Amado MD Unavailable [phone] Jonathan Amado MD Primary Care Provider [phone] Reason for Visit * Reason Comments Immunotherapy Allergy shot Encounter Details Date Type Department Care Team (Latest Contact Info) Description 07/20/2024 3:40 PM CDT Clinical Support [facility] - ENT [address] [place] [phone] Allergic rhinitis due to pollen, unspecified [...] encounter Progress Notes * Ryanne Amaya - 07/20/2024 3:01 PM CDT This person is taking immunotherapy for previously diagnosed allergic rhinitis. Serum calculations have been reviewed by Dr. Arellano on 05/03/2024 . Allergy Individual Dosing Allergy extracts mixed: 05/13/2024 and 6 months after date mixed. date [place] mix Mold mix Phenol saline Vial in [...] upper arm SQ-ls 07/2007/21/2024 0.25 0.25 0.00 0.25 0.25 0.00 08/04/2024 0.25 0.25 0.00 08/11/2024 0.25 0.25 0.00 08/18/2024 0.25 0.25 0.00 Physician in office: Houston Pantoja MD Diagnosis: j30.1 Allergic rhinitis Epipen exp 12/2024 Department of Otolaryngology Head and Neck Surgery Patient Name: Pina Reynaga : 1970 Date: 07/20/2024 1. Did you bring your Epi-pen with [...] temperature >101? no Injection time: 1500 Site: Left Upper Arm SQ Vial Contents diluted with 0.5ml Normal Saline: No Reaction: none Action taken: benadryl cream applied at injection site. Reviewed treatment for local reaction including call office for reaction > 2 inches. Reviewed use epi-pen for signs of anaphylaxis, and call 911. Pt & spouse acknowledge understanding. 1520 Time ambulatory from clinic in no distress, color pink, respiratory unlabored, steady on feet,voices no complaints. Spouse with pt. documented in this encounter Plan of Treatment Upcoming Encounters Date Type Department Care Team (Late st Contact Info) Description 10/19/2024 3:40 PM IT OPERATIONS SPECIALIST Clinical Support [facility] - [facility] [address] [place] [phone] 10/26/2024 3:20 PM IT OPERATIONS SPECIALIST Clinical Support [facility] [address] [place] [phone] 11/02/2024 3:40 PM IT OPERATIONS SPECIALIST Clinical Support [facility] - ENT [address] [place] [phone] 11/09/2024 3:20 PM IT OPERATIONS SPECIALIST Clinical Support [facility] - [facility] [address] [place] [phone] documented as of this encounter Visit Diagnoses Diagnosis Allergic rhinitis due to pollen, unspecified seasonality- Primary documented in this encounter Care Teams Meat Press Operator Relationship Specialty Start Date End Date Jonathan Amado MD [address] [place] [phone] PCP - General Family Medicine 09/15/23 Jonathan Amado MD [address] [place] [phone] 06/24/13 documented as of this encounter
--- OUTSIDE RECORDS SUMMARY | 2024-10-17 03:05 | XMS_ITS | Patient Health Summary ---
Author Organization [facility] Address [address] [place] [address] Care Team Providers Care Director Content Marketing Name Role Phone Jonathan Amado MD Unavailable Jonathan Amado MD Primary Care Provider [phone] Note from [facility],non-owned Affiliates and Associated Physician Practices is amultiple site organization consisting of ambulatory clinics and hospital sitesin [place], [place], [place] and [place]. This disclosure is being madepursuant to the Care Everywhere program and may not contain all information available regarding this patient. Last updated 18.[facility] Allergies * Ambrosia Artemisiifolia, Ragweed(Unknown) * Ciprofloxacin(Myalgias) * Ciprofloxacin(Rash) -Medium Criticality * Compazine Syrup(Anxiety) -Low Criticality * Contrast-Iodinated Agents For Ct/Other(Anaphylaxis,Other) -High Criticality * Contrast-Iodinated Agents For Ct/Other(Myalgias) -Medium Criticality * Doxycycline(Rash) -Medium Criticality * Gabapentin(Headache) -Low Criticality * Levaquin(Rash) -Medium Criticality * Morphine(Nausea and/or Vomiting) -Medium Criticality * Sulfamethoxazole W-Trimethoprim(Urticaria,Rash) -Low Criticality * Sulfa Drugs(Rash,Myalgias) -Medium Criticality * Prochlorperazine(Other),Inactive * Doxycycline(Unknown),Inactive * Morphine(Nausea and/or Vomiting),Inactive Medications * Be aware that medications may not be up to date on this document. Alwaysverify current medications with the patient. * fluticasone propionate (FLONASE) 50 MCG/ACT nasal spray [place] 2 (two) sprays into each nostril once daily * ergocalciferol (DRISDOL) 1.25 MG (17411 UT) capsule Take 1 (one) capsule by mouth every 30 days * cetirizine (ZYRTEC) 10 MG tablet Take 1 (one) tablet by mouth once daily as needed * Pseudoephedrine HCl (SUDAFED PO) Take 1 tablet by mouth as needed * hydroxychloroquine (PLAQUENIL) 200 MG tablet(Started 09/02/2021) Take 2 (two) tablets by mouth once daily * estradiol (Estrace) 0.1 MG/GM vaginal cream(Started 07/18/2022) Insert 2 g into the vagina Two times a week * Budesonide(Started 01/22/2023) Add 1 capsule of 0.5mg or 0.6mg to 240ml saline (patient may mix own saline). Irrigate half in eachnostril twice daily. 11 refills by 01/22/2024 * azelastine (Astepro) 205.5 MCG/SPRAY nasal spray(Started 01/28/2023) [place] 2 (two) sprays into each nostril 2 times daily 4 refills by 01/28/2024 * EPINEPHrine (Epipen) 0.3 MG/0.3ML auto-injector pen(Started 09/15/2023) Inject 0.3 mL into muscle once as needed for Anaphylaxis 1 refill by 09/14/2024 * ibandronate (Boniva) 150 MG tablet(Started 10/23/2023) Take 1 (one) tablet by mouth every 30 days * FLUoxetine (PROzac) 20 MG capsule(Started 10/30/2023) Take 1 (one) capsule by mouth once daily * allergy injection Per [facility] Otolaryngology protocol * fexofenadine (Cassie) 180 MG tablet Take 1 (one) tablet by mouth once daily * Vitamin D, Ergocalciferol, 53337 units CAPS Take 1 (one) capsule by mouth every [address] Yun prescibed once weekly for eight weeks * cefdinir (Omnicef) 300 MG capsule(Started 10/10/2024) Take 1 (one) capsule by mouth 2 times daily Active Problems Problem Noted Date Diagnosed Date FABIAN positive 03/01/2019 Urticaria 03/01/2019 Elevated CK 03/01/2019 Fatigue 03/01/2019 Pain in left knee 01/24/2017 Myalgia 01/24/2017 Allergic rhinitis 07/23/2016 Fibromyalgia 03/06/2016 Pain in joint 02/05/2016 Other muscle spasm 02/05/2016 Other specified abnormal immunological findings in serum 02/05/2016 Chronic frontal sinusitis 03/10/2014 Back pain 09/08/2013 Fibromyalgia 09/08/2013 Chronic sinusitis 10/08/2011 Immunizations * FLU VACCINE TRI IIV3 SPLIT PF IM (FLUVIRIN)(Given 07/25/2017) * INFLUENZA(Given 07/03/2020) * INFLUENZA VACCINE, QUADR. (FLUZONE; FLULAVAL; FLUARIX; AFLURIA QUADRIVALENT; 6MO+), 0.5 ML (IIV4)(Given 07/23/2018) * PNEUMOCOCCAL PPV, HISTORIC VACCINE(Given 06/29/2020) * TDAP (7yrs+)(Given 06/22/2018, 10/29/2017) * iNFLUENZA VACCINE, RECOM-WILSON, QUADR. (FLUBLOCK QUADRIVALENT; 18Y+) (RIV4)(Given 08/16/2021, 09/17/2019) Social History Tobacco Use Types Packs/Day Years [...] Mass Index 27.26 07/06/2024 3:18 PM CDT Procedures * NC NASAL ENDOSCOPY,DX(Performed 07/22/2023) Performed for Allergic rhinitis, unspecified seasonality, unspecified trigger * NC NASAL ENDOSCOPY,DX(Performed 04/14/2023) Performed for Nasal congestion, Chronic maxillary sinusitis * NC NASAL ENDOSCOPY,DX(Performed 01/28/2023) Performed for Nasal congestion, Chronic cough * IMAGING/RADIOLOGY/XRAY RESULTS ORDER(Performed 10/28/2022) * CULTURE RESPIRATORY+GRAM STAIN (STL)(Performed 07/25/2022) Performed for Nasal congestion * NC NASAL ENDOSCOPY,DX(Performed 07/25/2022) Performed for Nasal congestion * NC NASAL ENDOSCOPY,DX(Performed 04/09/2022) Performed for Acute ethmoidal sinusitis, recurrence not specified * CULTURE RESPIRATORY+GRAM STAIN (STL)(Performed 04/24/2021) Performed for Chronic maxillary sinusitis * NC NASAL ENDOSCOPY,DX(Performed 04/24/2021) Performed for Chronic maxillary sinusitis * CULTURE TISSUE+GRAM STAIN(Performed 06/20/2020) Performed for Nasal congestion, Chronic maxillary sinusitis * NC NASAL ENDOSCOPY,DX(Performed 06/20/2020) Performed for Nasal congestion, Chronic maxillary sinusitis * CULTURE RESPIRATORY+GRAM STAIN (STL)(Performed 05/24/2020) Performed for Chronic maxillary sinusitis * NC NASAL ENDOSCOPY,DX(Performed 05/23/2020) Performed for Chronic maxillary sinusitis * ALISSA STAINING PATTERNS REFLEXED(Performed 03/05/2019) Performed for Fibromyalgia, FABIAN positive * LDH BLOOD(Performed 03/05/2019) Performed for Fibromyalgia, FABIAN positive, Myalgia * IGM BLOOD(Performed 03/05/2019) Performed for Fibromyalgia, FABIAN positive * IGG BLOOD(Performed 03/05/2019) Performed for Fibromyalgia, FABIAN positive * IGA BLOOD(Performed 03/05/2019) Performed for Fibromyalgia, FABIAN positive * THYROID PEROXIDASE ANTIBODY(Performed 03/05/2019) Performed for Fibromyalgia, FABIAN positive, Urticaria, Myalgia, Other fatigue * TSH(Performed 03/05/2019) Performed for Fibromyalgia, FABIAN positive, Urticaria, Myalgia, Other fatigue * THYROGLOBULIN ANTIBODY(Performed 03/05/2019) Performed for Fibromyalgia, FABIAN positive, Urticaria, Myalgia, Other fatigue * T4 FREE(Performed 03/05/2019) Performed for Fibromyalgia, FABIAN positive, Urticaria, Myalgia, Other fatigue * ERYTHROCYTE SEDIMENTATION RATE(Performed 03/05/2019) Performed for Fibromyalgia, FABIAN positive * C-REACTIVE PROTEIN(Performed 03/05/2019) Performed for Fibromyalgia, FABIAN positive * COMPREHENSIVE METABOLIC PANEL(Performed 03/05/2019) Performed for Fibromyalgia, FABIAN positive * CK BLOOD(Performed 03/05/2019) Performed for Fibromyalgia, FABIAN positive, Myalgia * ALDOLASE(Performed 03/05/2019) Performed for Fibromyalgia, FABIAN positive, Myalgia * COMPLEMENT C3(Performed 03/05/2019) Performed for Fibromyalgia, FABIAN positive * COMPLEMENT C4(Performed 03/05/2019) Performed for Fibromyalgia, FABIAN positive * HISTONE ANTIBODY(Performed 03/05/2019) Performed for Fibromyalgia, FABIAN positive * SS-B (SJOGREN'S) ANTIBODY(Performed 03/05/2019) Performed for Fibromyalgia, FABIAN positive * SS-A (SJOGREN'S) ANTIBODY(Performed 03/05/2019) Performed for Fibromyalgia, FABIAN positive * CHROMATIN ANTIBODY(Performed 03/05/2019) Performed for Fibromyalgia, FABIAN positive * FABIAN BLOOD SCREEN W/REFLEX TITER(Performed 03/05/2019) Performed for Fibromyalgia, FABIAN positive * NC NASAL ENDOSCOPY,DX(Performed 10/28/2018) Performed for Nasal congestion, Facial pressure * CULTURE RESPIRATORY+GRAM STAIN (STL)(Performed 10/15/2018) Performed for Chronic sinusitis, unspecified location * CULTURE RESPIRATORY+GRAM STAIN (STL)(Performed 10/15/2018) Performed for Chronic sinusitis, unspecified location * CULTURE FUNGUS OTHER+FUNGUS SMEAR(Performed 10/15/2018) Performed for Chronic sinusitis, unspecified location * CULTURE FUNGUS OTHER+FUNGUS SMEAR(Performed 10/15/2018) Performed for Chronic sinusitis, unspecified location * NC NASAL ENDOSCOPY,DX(Performed 09/09/2018) Performed for Chronic sinusitis, unspecified location * CULTURE RESPIRATORY+GRAM STAIN (STL)(Performed 08/11/2018) Performed for Chronic maxillary sinusitis * NC NASAL ENDOSCOPY,DX(Performed 04/21/2018) Performed for Nasal congestion * XR PELVIS W RIGHT HIP 2VW(Performed 07/29/2017) * XR HIP LEFT 2VW OR MORE(Performed 07/29/2017) * XR KNEE LEFT 3VW(Performed 07/29/2017) * XR KNEE RIGHT 3VW(Performed 07/29/2017) * XR KNEE BILAT STANDING 1VW(Performed 07/29/2017) * HISTONE ANTIBODY(Performed 07/26/2017) * IGG SUBCLASS 4(Performed 07/26/2017) * ALDOLASE(Performed 07/26/2017) * TISSUE TRANSGLUTAMINASE AB IGA(Performed 07/26/2017) * TISSUE TRANSGLUTAMINASE AB IGG(Performed 07/26/2017) * FABIAN BLOOD TITER(Performed 07/26/2017) * FABIAN BLOOD SCREEN W/REFLEX TITER(Performed 07/26/2017) * DNA ANTIBODY DOUBLE STRANDED(Performed 07/26/2017) * IMAGING NURSE ANTIBODY(Performed 07/26/2017) * SS-A (SJOGREN'S) ANTIBODY(Performed 07/26/2017) * ABBASI (SM) ANTIBODY SEB(Performed 07/26/2017) * SS-B (SJOGREN'S) ANTIBODY(Performed 07/26/2017) * URINALYSIS MICROSCOPIC ONLY REFLEXED(Performed 07/26/2017) * URINALYSIS W/MICROSCOPIC REFLEX TO CULTURE(Performed 07/26/2017) * ERYTHROCYTE SEDIMENTATION RATE(Performed 07/26/2017) * LDH BLOOD(Performed 07/26/2017) * CK BLOOD(Performed 07/26/2017) * C-REACTIVE PROTEIN(Performed 07/26/2017) * COMPLEMENT C4(Performed 07/26/2017) * COMPLEMENT C3(Performed 07/26/2017) * COMPREHENSIVE METABOLIC PANEL(Performed 07/26/2017) * CBC W AUTO DIFFERENTIAL(Performed 07/26/2017) * IGA BLOOD(Performed 07/26/2017) * CULTURE AEROBIC(Performed 05/27/2017) * METHICILLIN RAPID TEST(Performed 05/27/2017) * FABIAN BLOOD TITER(Performed 02/07/2017) * VITAMIN D 25-HYDROXY(Performed 02/07/2017) * ERYTHROCYTE SEDIMENTATION RATE(Performed 02/07/2017) * C-REACTIVE PROTEIN(Performed 02/07/2017) * COMPREHENSIVE METABOLIC PANEL(Performed 02/07/2017) * CBC W AUTO DIFFERENTIAL(Performed 02/07/2017) * FABIAN BLOOD SCREEN W/REFLEX TITER(Performed 02/07/2017) * D-DIMER(Performed 02/07/2017) * URINALYSIS MICROSCOPIC ONLY REFLEXED(Performed 09/12/2016) * VITAMIN D 25-HYDROXY(Performed 09/12/2016) * URINALYSIS W/MICROSCOPIC REFLEX TO CULTURE(Performed 09/12/2016) * ERYTHROCYTE SEDIMENTATION RATE(Performed 09/12/2016) * C-REACTIVE PROTEIN(Performed 09/12/2016) * COMPREHENSIVE METABOLIC PANEL(Performed 09/12/2016) * CBC W AUTO DIFFERENTIAL(Performed 09/12/2016) * COMPLEMENT C4(Performed 09/12/2016) * COMPLEMENT C3(Performed 09/12/2016) * FABIAN BLOOD SCREEN W/REFLEX TITER(Performed 09/12/2016) * FABIAN BLOOD TITER(Performed 02/05/2016) * PHOSPHORUS BLOOD(Performed 02/05/2016) * MAGNESIUM BLOOD(Performed 02/05/2016) * HEPATITIS C ANTIBODY(Performed 02/05/2016) * RHEUMATOID FACTOR IGA(Performed 02/05/2016) * CYCLIC CITRULLINATED PEPTIDE(CCP) AB IGG(Performed 02/05/2016) * DNA ANTIBODY DOUBLE STRANDED(Performed 02/05/2016) * COMPLEMENT TOTAL(Performed 02/05/2016) * COMPLEMENT C4(Performed 02/05/2016) * COMPLEMENT C3(Performed 02/05/2016) * IMAGING NURSE ANTIBODY(Performed 02/05/2016) * ABBASI (SM) ANTIBODY SEB(Performed 02/05/2016) * SS-A/SS-B (SJOGREN'S) ANTIBODY PANEL(Performed 02/05/2016) * FABIAN BLOOD SCREEN W/REFLEX TITER(Performed 02/05/2016) * TSH(Performed 02/05/2016) * T4 FREE(Performed 02/05/2016) * LDH BLOOD(Performed 02/05/2016) * FERRITIN(Performed 02/05/2016) * CK BLOOD(Performed 02/05/2016) * C-REACTIVE PROTEIN(Performed 02/05/2016) * COMPREHENSIVE METABOLIC PANEL(Performed 02/05/2016) * CELIAC DISEASE REFLEXIVE CASCADE(Performed 02/05/2016) * CBC W AUTO DIFFERENTIAL(Performed 02/05/2016) * ALDOLASE(Performed 02/05/2016) * CULTURE AEROBIC(Performed 10/10/2015) * LAB HISTORICAL RESULTS-ONBASE(Performed 04/13/2015) * LAB HISTORICAL RESULTS-ONBASE(Performed 04/12/2015) * LAB HISTORICAL RESULTS-ONBASE(Performed 04/12/2015) * LAB HISTORICAL RESULTS-ONBASE(Performed 04/12/2015) * LAB HISTORICAL RESULTS-ONBASE(Performed 04/12/2015) * LAB HISTORICAL RESULTS-ONBASE(Performed 04/12/2015) * LAB HISTORICAL RESULTS-ONBASE(Performed 04/12/2015) * LAB HISTORICAL RESULTS-ONBASE(Performed 04/12/2015) * LAB HISTORICAL RESULTS-ONBASE(Performed 04/12/2015) * CULTURE MRSA(Performed 07/05/2014) * LAB HISTORICAL RESULTS-ONBASE(Performed 06/25/2014) * LAB HISTORICAL RESULTS-ONBASE(Performed 06/23/2014) * LAB HISTORICAL RESULTS-ONBASE(Performed 06/23/2014) * LAB HISTORICAL RESULTS-ONBASE(Performed 06/23/2014) * CULTURE URINE(Performed 06/16/2014) * CULTURE AEROBIC + GRAM STAIN(Performed 02/16/2014) * CULTURE AEROBIC(Performed 02/16/2014) * ERYTHROCYTE SEDIMENTATION RATE(Performed 09/15/2013) Performed for Dry mouth * SS-A/SS-B (SJOGREN'S) ANTIBODY PANEL(Performed 09/15/2013) Performed for Dry mouth * LAB HISTORICAL RESULTS-ONBASE(Performed 07/15/2013) * PATHOLOGY/GENETICS HISTORICAL-ONBASE(Performed 07/15/2013) * PATHOLOGY/GENETICS HISTORICAL-ONBASE(Performed 07/15/2013) * PATHOLOGY/GENETICS HISTORICAL-ONBASE(Performed 07/15/2013) * LAB RESULTS ORDER(Performed 07/15/2013) * LAB HISTORICAL RESULTS-ONBASE(Performed 06/24/2013) * PATHOLOGY/GENETICS HISTORICAL-ONBASE(Performed 06/24/2013) * PATHOLOGY/GENETICS HISTORICAL-ONBASE(Performed 06/24/2013) * PATHOLOGY/GENETICS HISTORICAL-ONBASE(Performed 06/24/2013) * PATHOLOGY/GENETICS HISTORICAL-ONBASE(Performed 06/24/2013) * PATHOLOGY/GENETICS HISTORICAL-ONBASE(Performed 06/24/2013) * LAB RESULTS ORDER(Performed 06/24/2013) * LAB RESULTS ORDER(Performed 06/24/2013) * IMAGING/RADIOLOGY/XRAY RESULTS ORDER(Performed 04/21/2013) * LAB RESULTS ORDER(Performed 03/15/2013) * LAB RESULTS ORDER(Performed 03/15/2013) * IMAGING/RADIOLOGY/XRAY RESULTS ORDER(Performed 11/09/2012) * LAB HISTORICAL RESULTS-ONBASE(Performed 04/20/2012) * LAB HISTORICAL RESULTS-ONBASE(Performed 04/20/2012) * LAB HISTORICAL RESULTS-ONBASE(Performed 04/20/2012) * LAB HISTORICAL RESULTS-ONBASE(Performed 04/16/2012) * LAB HISTORICAL RESULTS-ONBASE(Performed 04/16/2012) * LAB HISTORICAL RESULTS-ONBASE(Performed 04/16/2012) * IMAGING/RADIOLOGY/XRAY RESULTS ORDER(Performed 04/14/2012) * LAB HISTORICAL RESULTS-ONBASE(Performed 12/10/2011) * LAB HISTORICAL RESULTS-ONBASE(Performed 12/10/2011) * LAB HISTORICAL RESULTS-ONBASE(Performed 12/10/2011) * LAB HISTORICAL RESULTS-ONBASE(Performed 12/10/2011) * LAB HISTORICAL RESULTS-ONBASE(Performed 12/10/2011) * PATHOLOGY/GENETICS HISTORICAL-ONBASE(Performed 11/15/2011) Results * NC NASAL ENDOSCOPY,DX (07/22/2023 9:33 AM CDT) Narrative Jemma Jernigan MD - 07/22/2023 9:33 AM CDT Jemma Jernigan MD ? 07/22/2023 10:08 AM Procedure Note Endoscopy Type: ??Nasal Endoscopy without debridement Anesthesia: Lidocaine 2% and Rashid-Synephrine 1/2% Procedure Details: After topical anesthesia and decongestion, the patient was placed in the sitting position. ??The flexible laryngoscope was passed along the left nasal floor to the nasopharynx. ??It was then passed into the region of the middlemeatus, middle turbinate, and the sphenoethmoid region. An identical procedure was performed on the right side. ??The following findings were noted as stated below: Findings: All paranasal sinus cavities are clear without evidence of edema swelling or infection. ??Maxillary sinuses are open and looking the floor the maxillary sinuses there is no accumulated fluid or infection. No polyps or purulence. Condition: Stable. ??Patient tolerated procedure well. Complications: None Dr. Brice was present for the entirety of the procedure. Grupo Brice MD PROCEDURE/MINOR SURG ICAL ORDERABLES * NC NASAL ENDOSCOPY,DX (04/14/2023 3:19 PM CDT) Narrative Grupo Brice MD - 04/14/2023 3:19 PM CDT Grupo Brice MD ? 04/14/2023 ??3:20 PM Procedure Note Endoscopy Type: ??Nasal Endoscopy without debridement Anesthesia: Lidocaine 2% and Rashid-Synephrine 1/2% Procedure Details: After topical anesthesia and decongestion, the patient was placed in the sitting position. ??The flexible laryngoscope was passed along the left nasal floor to the nasopharynx. ??It was then passed into the region of the middlemeatus, middle turbinate, and the sphenoethmoid region. An identical procedure was performed on the right side. ??The following findings were noted as stated below: Findings: All paranasal sinus cavities are clear without evidence of edema swelling or infection. ??Easy transillumination of the frontal sinuses bilaterally. ??Maxillary sinuses are open and looking the floor the maxillary sinuses there is no accumulated fluid or infection. ??There is mild edematous changes to the mucosa of the anterior middle turbinate bilaterally but there is no evidence of infection or significant obstruction. ??There are no polyp formation. Condition: Stable. ??Patient tolerated procedure well. Complications: None I was present for the entirety of the procedure. Grupo Brice MD PROCEDURE/MINOR SURG ICAL ORDERABLES * NC NASAL ENDOSCOPY,DX (01/28/2023 9:26 AM CDT) Narrative Grupo Brice MD - 01/28/2023 9:26 AM CDT Grupo Brice MD ? 01/28/2023 ??9:59 AM Procedure Note Endoscopy Type: ??Nasal Endoscopy without debridement Anesthesia: none Procedure Details: After topical anesthesia and decongestion, the patient was placed in the sitting position. ??The zero degree telescope was passed along the left nasal floor to the nasopharynx. ??It was then passed into the region of the middlemeatus, middle turbinate, and the sphenoethmoid region. An identical procedure was performed on the right side. ??The following findings were noted as stated below: Findings: Examination of the ethmoid sinus is completely clear all nasal mucosal surfaces are healthy and thin without drainage the base of both maxillary sinuses is completely clear there is no mucopurulence in the nasal cavity no polyps. ??The middle and inferior turbinates have mild congestion nasopharynx is clear. Condition: Stable. ??Patient tolerated procedure well. Complications: None I was present for the entirety of the procedure. Grupo Brice MD PROCEDURE/MINOR SURG ICAL ORDERABLES * IMAGING RADIOLOGY XRAY RESULTS ORDER (10/28/2022) Only the most recent of4 resultswithin the time period is included. Anatomical Region Laterality Modality Other 10/28/2022 Narrative 10/28/2022 Ordered by an unspecified provider. Scanned Document IMAGING * (ABNORMAL) CULTURE RESPIRATORY+GRAM STAIN (STL) (07/25/2022 4:51 PM CDT) Only the most recent of6 resultswithin the time period is included. Culture Rare Bacillus species(A) CHERELLE 07/27/2022 3:22 PM CDT [facility] Culture Rare Staphylococcus epidermidis(A) 07/27/2022 3:22 PM CDT [facility] Comment:No further workup pe rformed Gram Stain Moderate Polymorphonuclear cells 07/27/2022 3:22 PM CDT [facility] Gram Stain Light Gram-negative bacilli 07/27/2022 3:22 PM CDT [facility] Microbiology SINUS / Unknown Collection / Unknown 07/25/2022 4:51 PM CDT 07/25/2022 5:51 PM CDT Narrative [facility] - 07/27/2022 3:22 PM CDT Gram-negative bacilli - Organisms seen on initial Gram stain may be anaerobic or not viable for aerobic growth. Grupo Brice MD LAB - MICROBIOLOGY O RDERABLES [facility] [address] [place] [address], [facility] [phone] * [place] NASAL ENDOSCOPY,DX (07/25/2022 4:40 PM CDT) Narrative Grupo Brice MD - 07/25/2022 4:40 PM CDT Grupo Brice MD ? 07/26/2022 ??5:09 PM Procedure Note Endoscopy Type: ??Nasal Endoscopy with debridement Anesthesia: Lidocaine 2% and Rashid-Synephrine 1/2% Procedure Details: After topical anesthesia and decongestion, the patient was placed in the sitting position. ??The zero degree telescope was passed along the left nasal floor to the nasopharynx. ??It was then passed into the region of the middlemeatus, middle turbinate, and the sphenoethmoid region. An identical procedure was performed on the right side. ??The following findings were noted as stated below: Findings: Very edematous changes to the mucosa of the middle turbinate polypoid changes throughout the middle meatal regions. ?? Culture taken from the right maxillary/ethmoid region. Condition: Stable. ??Patient tolerated procedure well. Complications: None I was present for the entirety of the procedure. Grupo Brice MD PROCEDURE/MINOR SURG ICAL ORDERABLES * NC NASAL ENDOSCOPY,DX (04/09/2022 5:03 PM CDT) Narrative Rajesh Allred APRN-CNP - 04/09/2022 5:03 PM CDT Rajesh Allred APRN-CNP ? 04/09/2022 ??7:51 PM Procedure Note Endoscopy Type: ??Nasal Endoscopy without debridement Anesthesia: Lidocaine 2% and Rashid-Synephrine 1/2% Procedure Details: After topical anesthesia and decongestion, the patient was placed in the sitting position. ??The zero degree telescope was passed along the left nasal floor to the nasopharynx. ??It was then passed into the region of the middle meatus, middle turbinate, and the sphenoethmoid region. An identical procedure was performed on the right side. ??The following findings were noted as stated below: ?? Findings: Right nasal cavity with purulent drainage and crusting noted to right ethmoid sinus. Left nasal cavity with purulent mucous strands to inferior and middle turbinates. Mild purulence noted to ethmoid sinus. Condition: Stable. ??Patient tolerated procedure well. ?? Complications: None Rajesh MTZ PROCEDURE/ MINOR SURGICAL ORDERABLES * NC NASAL ENDOSCOPY,DX (04/24/2021 3:50 PM CDT) Narrative Grupo Brice MD - 04/24/2021 3:50 PM CDT Grupo Brice MD ? 04/24/2021 ??3:53 PM Procedure Note Endoscopy Type: ??Nasal Endoscopy without debridement Anesthesia: Lidocaine 2% and Rashid-Synephrine 1/2% Procedure Details: After topical anesthesia and decongestion, the patient was placed in the sitting position. ??The zero degree telescope was passed along the left nasal floor to the nasopharynx. ??It was then passed into the region of the middlemeatus, middle turbinate, and the sphenoethmoid region. An identical procedure was performed on the right side. ??The following findings were noted as stated below: Findings: Left nasal cavity with the middle meatus is clear healthy mucosa right nasal cavity has edematous changes to the anterior part of the middle turbinate and the anterior ethmoid with drainage in this area culture taken from this spot. Condition: Stable. ??Patient tolerated procedure well. Complications: None I was present for the entirety of the procedure. Grupo Brice MD PROCEDURE/MINOR SURG ICAL ORDERABLES * (ABNORMAL) CULTURE TISSUE+GRAM STAIN (06/20/2020 5:00 PM CDT) Culture Light Streptococcus pneumoniae(AA) CHERELLE 06/23/2020 10:40 AM CDT [facility] Gram Stain Moderate Polymorphonuclear cells 06/23/2020 10:40 AM CDT [facility] Gram Stain No organisms seen 020 10:40 AM CDT [facility] Microbiology ENTIRE NASAL TURBINATE / Unknown Collection / Unknown 06/20/2020 5:00 PM CDT 06/21/2020 1:36 PM CDT Narrative [facility] - 06/23/2020 10:40 AM CDT For non-meningitis isolates of Streptococcus pneumoniae, a penicillin CHERELLE of <=0.06 ug/ml can predict susceptibility to the following beta-lactam antibiotics: ampicillin (oral or parenteral), ampicillin-sulbactam, amoxicillin, amoxicillin-clavulanic acid, cefaclor, cefdinir, cefditoren, cefepime, cefotaxime, cefpodoxime, cefprozil, ceftaroline, ceftizoxime, ceftriaxone, cefuroxime, doripenem, ertapenem, imipenem and meropenem. Organism Antibiotic Method Susceptibility Streptococcus pneumoniae Cefotaxime-meningitis CHERELLE <=0.12 ug/mL: Susceptible Streptococcus pneumoniae Cefotaxime-nonmeningitis CHERELLE <=0.12 ug/mL: Susceptible Streptococcus pneumoniae Ceftriaxone-meningitis CHERELLE <=0.12 ug/mL: Susceptible Streptococcus pneumoniae Ceftriaxone-nonmeningitis CHERELLE <=0.12 ug/mL: Susceptible Streptococcus pneumoniae Erythromycin CHERELLE <=0.12 ug/mL: Susceptible Streptococcus pneumoniae Levofloxacin CHERELLE 0.5 ug/mL: Susceptible Streptococcus pneumoniae Penicillin (par enteral, meningitis) CHERELLE <=0.06 ug/mL: Susceptible Streptococcus pneumoniae Penicillin (par enteral, nonmeningitis) CHERELLE <=0.06 ug/mL Streptococcus pneumoniae Trimethoprim-joy lfamethoxaz ole CHERELLE <=10 ug/mL: Susceptible Streptococcus pneumoniae Vancomycin CHERELLE 0.25 ug/mL: Susceptible Grupo Brice MD LAB - MICROBIOLOGY O RDERABLES [facility] MICRO[facility]OLOGY [address] [place] [address], [facility] [phone] * NC NASAL ENDOSCOPY,DX (06/20/2020 4:43 PM CDT) Narrative Grupo Brice MD - 06/20/2020 4:43 PM CDT Grupo Brice MD ? 06/20/2020 ??5:28 PM Procedure Note Endoscopy Type: ??Nasal Endoscopy without debridement Anesthesia: Lidocaine 2% and Rashid-Synephrine 1/2% Procedure Details: After topical anesthesia and decongestion, the patient was placed in the sitting position. ??The zero degree telescope was passed along the left nasal floor to the nasopharynx. ??It was then passed into the region of the middlemeatus, middle turbinate, and the sphenoethmoid region. An identical procedure was performed on the right side. ??The following findings were noted as stated below: Findings: Left nasal cavity is some purulence on the inferior turbinate and middle turbinate and the ethmoid region mild edema to the mucosa in the maxillary sinus but no maureen purulence. Right side is completely reading clear. The mucosa in the ethmoid and mastoid sinuses healthy without evidence of infection. Condition: Stable. ??Patient tolerated procedure well. Complications: None I was present for the entirety of the procedure. Grupo Brice MD PROCEDURE/MINOR SURG ICAL ORDERABLES * NC NASAL ENDOSCOPY,DX (05/23/2020 3:45 PM CDT) Narrative Grupo Brice MD - 05/23/2020 3:45 PM CDT Grupo Brice MD ? 05/23/2020 ??5:13 PM Procedure Note Endoscopy Type: ??Nasal Endoscopy without debridement Anesthesia: none Procedure Details: After topical anesthesia and decongestion, the patient was placed in the sitting position. ??The zero degree telescope was passed along the left nasal floor to the nasopharynx. ??It was then passed into the region of the middlemeatus, middle turbinate, and the sphenoethmoid region. An identical procedure was performed on the right side. ??The following findings were noted as stated below: Findings: severe congestion of the right middle turbinate obstructing the right maxillary sinus. Left side completely clear with normal appearing mucosa Condition: Stable. ??Patient tolerated procedure well. Complications: None I was present for the entirety of the procedure. Grupo Brice MD PROCEDURE/MINOR SURG ICAL ORDERABLES * CHROMATIN ANTIBODY (03/05/2019 10:01 AM CDT) Antichromatin Antibodies 0.2 0.0 - 0.9 [facility] INSURANCE BILL Comment:FASTING Blood BLOOD SPECIMEN / Unknown 03/05/2019 10:01 AM CDT 03/05/2019 Narrative Resulting Agency Comment Lab Testing performed at: [facility] [place] [facility] [place] [address] [facility] ??[facility] [phone] Sarika Edwards MD LAB - SEROLOGY ORDER SILVIA [facility] INSURANCE BILL [address] [place] [address] * (ABNORMAL) ALISSA STAINING PATTERNS REFLEXED (03/05/2019 10:01 AM CDT) Homogeneous Pattern NOT NEEDED [facility] INSURANCE BILL Comment:Ancillary determined the test is not needed Nucleolar Pattern NOT NEEDED [facility] INSURANCE BILL Comment:Ancillary determined the test is not needed Speckled Pattern 1:160(H) [facility] INSURANCE BILL Comment: Dense Fine Speckled pattern is noted. This pattern suggests the presence of DFS70 antibody which has a low prevalence in systemic autoimmune rheumatic diseases. Centromere Pattern NOT NEEDED [facility] INSURANCE BILL Comment:Ancillary determined the test is not needed Spindle Apparatus Pattern NOT NEEDED [facility] INSURANCE BILL Comment:Ancillary determined the test is not needed Nuclear Membrane Pattern NOT NEEDED [facility] INSURANCE BILL Comment:Ancillary determined the test is not needed Midbody Pattern NOT NEEDED [facility] INSURANCE BILL Comment:Ancillary determined the test is not needed Nuclear Dot Pattern NOT NEEDED [facility] INSURANCE BILL Comment:Ancillary determined the test is not needed PCNA Pattern NOT NEEDED [facility] INSURANCE BILL Comment:Ancillary determined the test is not needed Centriole Pattern NOT NEEDED [facility] INSURANCE BILL Comment:Ancillary determined the test is not needed Note [facility] INSURANCE BILL Comment: A positive FABIAN result may occur in healthy individuals (low titer) or be associated with a variety of diseases. ??See interpretation chart which is not all inclusive: ? . Pattern ?Antigen Detected ??Suggested Disease Association ? Homogeneous ??DNA(ds,ss), ? SLE - High titers ? Nucleosomes, ? Histones ?Drug-induced SLE ? Speckled ? Sm, IMAGING NURSE, SCL-70, ??SLE,MCTD,PSS (diffuse form), ? SS-A/SS-B ? Sjogrens ? Nucleolar ?SCL-70, PM-1/SCL ??High titers Scleroderma, ? PM/DM ? Centromere ?? Centromere ?PSS (limited form) w/Crest ? syndrome variable ? Nuclear Dot ??[id number] ??Primary Biliary Cirrhosis ? Nuclear ?GP210, ?Primary Biliary Cirrhosis Membrane ? luis enrique A,B,C ? FASTING 03/05/2019 10:0 1 AM CDT 03/05/2019 Narrative Resulting Agency Comment Lab Testing performed at: [facility] [address] ??[place] [phone] Sarika Edwards MD LAB - PATHOLOGY/CYTO LOGY ORDERABLES [facility] INSURANCE BILL [address] [place] [address] * C-REACTIVE PROTEIN (03/05/2019 10:01 AM CDT) Only the most recent of5 resultswithin the time period is included. C-Reactive Protein 0.3 0.0 - 4.9 mg/L [facility] INSURANCE BILL Comment: ? Effective March 29, 2019 the reference interval for ? C-Reactive Protein, Quant, will be changing to: ?Age ? Male ? Female ?0 ??- 30 days ?Not Estab. ?? Not Estab. ? 1 month - 17 years ? 0 - ??7 ? 0 - ??9 ?>17 years ? 0 - 10 ? 0 - 10 FASTING Blood BLOOD SPECIMEN / Unknown 03/05/2019 10:01 AM CDT 03/05/2019 Narrative Resulting Agency Comment Lab Testing performed at: [facility] [address] ??[place] [phone] Sarika Edwards MD LAB - CHEMISTRY LISA THAYER Performing Organization Address [facility] de Phone Number [facility] INSURANCE BILL [address] [place] [address] * (ABNORMAL) FABIAN BLOOD SCREEN W/REFLEX TITER (03/05/2019 10:01 AM CDT) Only the most recent of5 resultswithin the time period is included. FABIAN Positive(A ) [facility] INSURANCE BILL Comment: ?Negative ?? <1:80 ?Borderline ??1:80 ?Positive ?? >1:80 FASTING Blood BLOOD SPECIMEN / Unknown 03/05/2019 10:01 AM CDT 03/05/2019 Narrative Resulting Agency Comment Lab Testing performed at: [employer] [employer] ??[facility] [phone] Sarika Edwards MD LAB - CHEMISTRY LISA THAYER Performing Organization Address [facility]/ZIP Co de Phone Number [facility] INSURANCE BILL [address] [place] [address] * THYROID PEROXIDASE ANTIBODY (03/05/2019 10:01 AM CDT) Thyroid Peroxidase TPO Antibody 7 0 - 34 IU/mL [facility] INSURANCE BILL Comment:FASTING Blood BLOOD SPECIMEN / Unknown 03/05/2019 10:01 AM CDT 03/05/2019 Narrative Resulting Agency Comment Lab Testing performed at: [place] [address] ??[facility] [phone] Sarika Edwards MD LAB - CHEMISTRY LISA THAYER Performing Organization Address [facility] Co de Phone Number [employer] INSURANCE BILL [address] [place] [address] * THYROGLOBULIN ANTIBODY (03/05/2019 10:01 AM CDT) Thyroglobulin Antibody <1.0 0.0 - 0.9 IU/mL [facility] INSURANCE BILL Comment: Thyroglobulin Antibody measured by [employer] FASTING Blood BLOOD SPECIMEN / Unknown 03/05/2019 10:01 AM CDT 03/05/2019 Narrative Resulting Agency Comment Lab Testing performed at: [facility] [employer] ??[facility] [id number] Sarika Edwards MD LAB - CHEMISTRY LISA THAYER Performing Organization Address [facility] de Phone Number [employer] INSURANCE BILL [address] [place] [address] * HISTONE ANTIBODY (03/05/2019 10:01 AM CDT) Only the most recent of2 resultswithin the time period is included. Anti-Histone Antibody 0.4 0.0 - 0.9 Units [facility] INSURANCE BILL Comment: ?Negative ?<1.0 ?Weak Positive ?1.0 - 1.5 ?Moderate Positive ??1.6 - 2.5 ?Strong Positive ? >2.5 FASTING Blood BLOOD SPECIMEN / Unknown 03/05/2019 10:01 AM CDT 03/05/2019 Narrative Resulting Agency Comment Lab Testing performed at: [facility] [address] ??[facility] [phone] Sarika Edwards MD LAB - CHEMISTRY LISA THAYER Performing Organization Address [facility] de Phone Number [facility] INSURANCE BILL [address] [place] [address] * SS-B (SJOGREN'S) ANTIBODY (03/05/2019 10:01 AM CDT) Only the most recent of2 resultswithin the time period is included. Sjogren's Antibodies (SSB) <0.2 0.0 - 0.9 [facility] INSURANCE BILL Comment:FASTING Blood BLOOD SPECIMEN / Unknown 03/05/2019 10:01 AM CDT 03/05/2019 Narrative Resulting Agency Comment Lab Testing performed at: [facility] [address] ??[facility] [id number] Sarika Edwards MD LAB - CHEMISTRY LISA THAYER Performing Organization Address [facility] de Phone Number [facility] INSURANCE BILL [address] [place] [address] * SS-A (SJOGREN'S) ANTIBODY (03/05/2019 10:01 AM CDT) Only the most recent of2 resultswithin the time period is included. Sjogren's Antibodies (SSA) <0.2 0.0 - 0.9 AI [facility] INSURANCE BILL Comment:FASTING Blood BLOOD SPECIMEN / Unknown 03/05/2019 10:01 AM CDT 03/05/2019 Narrative Resulting Agency Comment Lab Testing performed at: [facility] ??[facility] [phone] Sarika Edwards MD LAB - CHEMISTRY LISA THAYER Performing Organization Address [facility] de Phone Number [facility] INSURANCE BILL [address] [place] [address] * ALDOLASE (03/05/2019 10:01 AM CDT) Only the most recent of3 resultswithin the time period is included. Aldolase 5.0 3.3 - 10.3 U/L [facility] INSURANCE BILL Comment:FASTING Blood BLOOD SPECIMEN / Unknown 03/05/2019 10:01 AM CDT 03/05/2019 Narrative Resulting Agency Comment Lab Testing performed at: [facility] [address] ??[facility] [phone] Sarika Edwards MD LAB - CHEMISTRY LISA THAYER Performing Organization Address [facility] de Phone Number [facility] INSURANCE BILL [address] [place] [address] * ERYTHROCYTE SEDIMENTATION RATE (03/05/2019 10:01 AM CDT) Only the most recent of5 resultswithin the time period is included. Erythrocyte Sedimentation Rate Westergren 2 0 - 32 mm/hr [facility] INSURANCE BILL Comment:FASTING Blood BLOOD SPECIMEN / Unknown 03/05/2019 10:01 AM CDT 03/05/2019 Narrative Resulting Agency Comment Lab Testing performed at: [facility] ??[facility] [id number] Sarika Edwards MD LAB - HEMATOLOGY ORD ERABLES Performing Organization Address [facility] Co de Phone Number [facility] INSURANCE BILL [address] [place] [address] * COMPLEMENT C4 (03/05/2019 10:01 AM CDT) Only the most recent of4 resultswithin the time period is included. Complement C4 24 14 - 44 mg/dL [facility] INSURANCE BILL Comment:FASTING Blood BLOOD SPECIMEN / Unknown 03/05/2019 10:01 AM CDT 03/05/2019 Narrative Resulting Agency Comment Lab Testing performed at: [facility] [place] [facility] [address] ??[facility] [phone] Sarika Jerry ONEIL LAB - SEROLOGY ORDER SILVIA [facility] INSURANCE BILL [address] [place] [address] * COMPREHENSIVE METABOLIC PANEL (03/05/2019 10:01 AM CDT) Only the most recent of5 resultswithin the time period is included. Glucose 88 65 - 99 mg/dL [facility] [...] Resulting Agency Comment Lab Testing performed at: [facility] ??[facility] [id number] Sarika Edwards MD LAB - CHEMISTRY LISA THAYER Performing Organization Address [facility] Co de Phone Number [facility] INSURANCE BILL [address] [place] [address] * (ABNORMAL) LDH BLOOD (03/05/2019 10:01 AM CDT) Only the most recent of3 resultswithin the time period is included. LDH 276(H) 119 - 226 IU/L [facility] INSURANCE BILL Comment:FASTING Blood BLOOD SPECIMEN / Unknown 03/05/2019 10:01 AM CDT 03/05/2019 Narrative Resulting Agency Comment Lab Testing performed at: [facility] ??[facility] [id number] Sarika Edwards MD LAB - CHEMISTRY LISA THAYER Performing Organization Address [facility] de Phone Number [facility] INSURANCE BILL [address] [place] [address] * (ABNORMAL) CK BLOOD (03/05/2019 10:01 AM CDT) Only the most recent of3 resultswithin the time period is included. CK 244(H) 24 - 173 U/L [facility] INSURANCE BILL Comment:FASTING Blood BLOOD SPECIMEN / Unknown 03/05/2019 10:01 AM CDT 03/05/2019 Narrative Resulting Agency Comment Lab Testing performed at: [facility] [place] ??[facility] [phone] Sarika Edwards MD LAB - CHEMISTRY LISA THAYER Performing Organization Address [facility] Co de Phone Number [facility] INSURANCE BILL [address] [place] [address] * TSH (03/05/2019 10:01 AM CDT) Only the most recent of2 resultswithin the time period is included. TSH 1.680 0.450 - 4.500 uIU/mL [facility] INSURANCE BILL Comment:FASTING Blood BLOOD SPECIMEN / Unknown 03/05/2019 10:01 AM CDT 03/05/2019 Narrative Resulting Agency Comment Lab Testing performed at: [facility] [place] [address] ??[facility] [phone] Sarika Edwards MD LAB - CHEMISTRY LISA THAYER [facility] INSURANCE BILL [address] [place] [address] * T4 FREE (03/05/2019 10:01 AM CDT) Only the most recent of2 resultswithin the time period is included. T4 Free 1.18 0.82 - 1.77 ng/dL [facility] INSURANCE BILL Comment:FASTING Blood BLOOD SPECIMEN / Unknown 03/05/2019 10:01 AM CDT 03/05/2019 Narrative Resulting Agency Comment Lab Testing performed at: [facility] [place] [address] ??[facility] [phone] Sarika Edwards MD LAB - CHEMISTRY LISA THAYER [facility] INSURANCE BILL [address] [place] [address] * IGM BLOOD (03/05/2019 10:01 AM CDT) IgM Quantitative 28 26 - 217 mg/dL [facility] INSURANCE BILL Comment:FASTING Blood BLOOD SPECIMEN / Unknown 03/05/2019 10:01 AM CDT 03/05/2019 Narrative Resulting Agency Comment Lab Testing performed at: [facility] [place] [address] ??[facility] [id number] Sarika Edwards MD LAB - CHEMISTRY LISA THAYER [facility] INSURANCE BILL [address] [place] [address] * (ABNORMAL) IGG BLOOD (03/05/2019 10:01 AM CDT) IgG Quantitative 689(L) 700 - 1,600 mg/dL [facility] INSURANCE BILL Comment:FASTING Blood BLOOD SPECIMEN / Unknown 03/05/2019 10:01 AM CDT 03/05/2019 Narrative Resulting Agency Comment Lab Testing performed at: [facility] [address] ??[facility] [phone] Sarika Edwards MD LAB - CHEMISTRY LISA THAYER [facility] INSURANCE BILL [address] [place] [address] * (ABNORMAL) IGA BLOOD (03/05/2019 10:01 AM CDT) Only the most recent of2 resultswithin the time period is included. IgA Quantitative 68(L) 87 - 352 mg/dL [facility] INSURANCE BILL Comment:FASTING Blood BLOOD SPECIMEN / Unknown 03/05/2019 10:01 AM CDT 03/05/2019 Narrative Resulting Agency Comment Lab Testing performed at: [employer] [address] ??[facility] [phone] Sarika Edwards MD LAB - CHEMISTRY LISA THAYER Performing Organization Address City/[facility]/ZIP Co de Phone Number [facility] INSURANCE BILL [address] [place] [address] * COMPLEMENT C3 (03/05/2019 10:01 AM CDT) Only the most recent of4 resultswithin the time period is included. Complement C3 113 82 - 167 mg/dL [facility] INSURANCE BILL Comment:FASTING Blood BLOOD SPECIMEN / Unknown 03/05/2019 10:01 AM CDT 03/05/2019 Narrative Resulting Agency Comment Lab Testing performed at: [facility] [address] ??[facility] [phone] Sarika Edwards MD LAB - CHEMISTRY LISA THAYER [facility] INSURANCE BILL [address] [place] [address] * NC NASAL ENDOSCOPY,DX (10/28/2018 9:11 AM [facility] [facility]) Narrative Eisenbeis, Grupo F, MD - 10/28/2018 9:11 AM [facility] [facility] [facility] Franc Lopez MD ? 10/27/2018 ??5:32 PM Procedure: Rigid Nasal Endoscopy Anesthesia: Bilateral Nasal Cavities sprayed with Lidocaine and Neosynephrine Detail: ??Rigid nasal endoscopy performed bilaterally. ??Septum was not deviated. Bilateral post operative appearance. Right nasal cavity showed clear sinus and nasal passages, there were no polyps or purulence. ??Left nasal cavity showed clear sinus and nasal passages, there were no polyps or purulence, only mild edma to anterior ethmoids/frontal outflow. Dr. Brice was present for the entire procedure. 10/27/2018 5:00 PM Franc Lopez MD PROCEDURE/MINOR SURG ICAL ORDERABLES * CULTURE FUNGUS OTHER+FUNGUS SMEAR (10/15/2018 5:30 PM [facility] [facility] [facility]) Only the most recent of2 resultswithin the time period is included. Culture No fungus isolated CHERELLE 11/09/2018 5:40 AM [facility] MICROBIOLOGY Fungus Smear No yeast or hyphae seen 11/09/2018 5:40 AM [facility]CROBIOLOG[facility] Microbiology ENTIRE MAXILLARY SINUS / Unknown Collection / Unknown 10/15/2018 5:30 PM [facility] 10/16/2018 11:40 AM [facility] [facility] [facility] Grupo Brice MD LAB - MICROBIOLOGY O RDERABLES [facility] MICROBIOLOGY [address] [place] [address], [facility] [phone] * NC NASAL ENDOSCOPY,DX (09/09/2018 10:39 AM [facility] [facility]) Narrative Grupo Brice MD - 09/09/2018 10:39 AM [employer] [facility] Grupo Brice MD ? 09/09/2018 ??9:30 AM Procedure: Rigid Nasal Endoscopy Anesthesia: Bilateral Nasal Cavities sprayed with Lidocaine and Neosynephrine Detail: ??Rigid nasal endoscopy performed bilaterally. ??Septum was deviated not deviated. ??Right nasal cavity showed clear sinus and nasal passages, there were no polyps or purulence. ??Left nasal cavity showed fungal debris within the maxillary sinus cavity. No maureen purulence. The fungus crust in the left maxillary sinus was removed using curved suction, 70 degree telescope and 10 ss of NS irrigation. Dr. Brice was present for the entire procedure. Angel Chiang PGY 4 09/08/2018 3:32 PM Angel Chiang MD PROCEDURE/MINOR SURG ICAL ORDERABLES * NC NASAL ENDOSCOPY,DX (04/21/2018 5:40 PM CDT) Narrative Grupo Brice MD - 04/21/2018 5:40 PM CDT Keyon Anne MD ? 04/21/2018 ??2:09 PM Procedure Note Endoscopy Type: ??Nasal Endoscopy without debridement Anesthesia: none Procedure Details: The patient was placed in the sitting position. ??The zero degree telescope was passed along the left nasal floor to the nasopharynx. ??It was then passed into the region of the middlemeatus, middle turbinate, and the sphenoethmoid region. An identical procedure was performed on the right side. ??The following findings were noted as stated below: Findings: L middle meatus with some mucoid drainage, mild edema of the L maxillary sinus, L anterior ethmoid sinus without significant purulence or drainage. Moderate edema of the R middle turbinate, no drainage or edema of the R maxillary sinus. Condition: Stable. ??Patient tolerated procedure well. Complications: None Dr. Brice was present for the entirety of the procedure. Keyon Anne MD PROCEDURE/MINOR SURG ICAL ORDERABLES * XR PELVIS W RIGHT HIP 2VW (07/29/2017 4:01 PM CDT) Anatomical Region Laterality Modality Other Impressions 07/29/2017 4:51 PM CDT IMPRESSION: 1. Right hip: Normal. 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 2. Left hip: Normal. 3. Right knee: Normal. 4. Left knee: Normal. This report was electronically signed by JOSUÉ SUH MD ??on 07/29/2017 4:51 PM . Narrative 07/29/2017 4:51 PM CDT Exam: 1. ??XR HIP RIGHT 2-3 VW W/ PELVIS, 2. XR KNEES AP BILATERAL STANDING, 3. XR KNEE RIGHT 3 VW, 4. XR KNEE LEFT 3 VW, 5. XR HIP LEFT 2-3 VW History: 47 are old female with bilateral hip pain, sensation of hips going out of socket and difficulty walking. Also bilateral knee pain which has worsened recently. Comparison: None. Findings: Right hip 2 views with AP pelvis: There is no right hip fracture or dislocation. The joint space is normal. No erosions are present. There is articular surface irregularity and bone spurring at the pubic symphysis. The sacroiliac joints are normal. Left hip 2 views: No left hip fracture or dislocation is present. The joint space is normal. No erosions are seen. Right knee 3 views: No acute fracture or dislocation is present. No erosions are seen. The joint spaces are normal. There is no effusion. Bone density is normal. Left knee 3 view: No acute fracture or dislocation is present. No erosions are seen. The joint spaces are normal. There is no effusion. Bone density is normal. Standing bilateral knees: The joint spaces are normal bilaterally. Procedure Note Josué Suh MD - 01/09/2018 Exam: 1. XR HIP RIGHT 2-3 VW W/ PELVIS, 2. XR KNEES AP BILATERAL STANDING, 3. XR KNEE RIGHT 3 VW, 4. XR KNEE LEFT 3 VW, 5. XR HIP LEFT 2-3 VW History: 47 are old female with bilateral hip pain, sensation of hipsgoing out of socket and difficulty walking. Also bilateral knee pain whichhas worsened recently. Comparison: None. Findings: Right hip 2 views with AP pelvis: There is no right hip fracture or dislocation. The joint space is normal.No erosions are present. There is articular surface irregularity and bone spurring at the pubicsymphysis. The sacroiliac joints are normal. Left hip 2 views: No left hip fracture or dislocation is present. The joint space is normal.No erosions are seen. Right knee 3 views: No acute fracture or dislocation is present. No erosions are seen. Thejoint spaces are normal. There is no effusion. Bone density is normal. Left knee 3 view: No acute fracture or dislocation is present. No erosions are seen. Thejoint spaces are normal. There is no effusion. Bone density is normal. Standing bilateral knees: The joint spaces are normal bilaterally. IMPRESSION IMPRESSION: 1. Right hip: Normal. 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 2. Left hip: Normal. 3. Right knee: Normal. 4. Left knee: Normal. This report was electronically signed by JOSUÉ SUH MD on07/29/2017 4:51 PM . Sarika Edwards MD DIAGNOSTIC IMAGING O RDERABLES * XR KNEE RIGHT 3VW (07/29/2017 4:01 PM CDT) Anatomical Region Laterality Modality Lower Extremity Other Impressions 07/29/2017 4:51 PM CDT IMPRESSION: 1. Right hip: Normal. 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 2. Left hip: Normal. 3. Right knee: Normal. 4. Left knee: Normal. This report was electronically signed by JOSUÉ SUH MD ??on 07/29/2017 4:51 PM . Narrative 07/29/2017 4:51 PM CDT Exam: 1. ??XR HIP RIGHT 2-3 VW W/ PELVIS, 2. XR KNEES AP BILATERAL STANDING, 3. XR KNEE RIGHT 3 VW, 4. XR KNEE LEFT 3 VW, 5. XR HIP LEFT 2-3 VW History: 47 are old female with bilateral hip pain, sensation of hips going out of socket and difficulty walking. Also bilateral knee pain which has worsened recently. Comparison: None. Findings: Right hip 2 views with AP pelvis: There is no right hip fracture or dislocation. The joint space is normal. No erosions are present. There is articular surface irregularity and bone spurring at the pubic symphysis. The sacroiliac joints are normal. Left hip 2 views: No left hip fracture or dislocation is present. The joint space is normal. No erosions are seen. Right knee 3 views: No acute fracture or dislocation is present. No erosions are seen. The joint spaces are normal. There is no effusion. Bone density is normal. Left knee 3 view: No acute fracture or dislocation is present. No erosions are seen. The joint spaces are normal. There is no effusion. Bone density is normal. Standing bilateral knees: The joint spaces are normal bilaterally. Procedure Note Josué Suh MD - 01/09/2018 Exam: 1. XR HIP RIGHT 2-3 VW W/ PELVIS, 2. XR KNEES AP BILATERAL STANDING, 3. XR KNEE RIGHT 3 VW, 4. XR KNEE LEFT 3 VW, 5. XR HIP LEFT 2-3 VW History: 47 are old female with bilateral hip pain, sensation of hipsgoing out of socket and difficulty walking. Also bilateral knee pain whichhas worsened recently. Comparison: None. Findings: Right hip 2 views with AP pelvis: There is no right hip fracture or dislocation. The joint space is normal.No erosions are present. There is articular surface irregularity and bone spurring at the pubicsymphysis. The sacroiliac joints are normal. Left hip 2 views: No left hip fracture or dislocation is present. The joint space is normal.No erosions are seen. Right knee 3 views: No acute fracture or dislocation is present. No erosions are seen. Thejoint spaces are normal. There is no effusion. Bone density is normal. Left knee 3 view: No acute fracture or dislocation is present. No erosions are seen. Thejoint spaces are normal. There is no effusion. Bone density is normal. Standing bilateral knees: The joint spaces are normal bilaterally. IMPRESSION IMPRESSION: 1. Right hip: Normal. 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 2. Left hip: Normal. 3. Right knee: Normal. 4. Left knee: Normal. This report was electronically signed by JOSUÉ SUH MD on07/29/2017 4:51 PM . Sarika Edwards MD DIAGNOSTIC IMAGING O RDERABLES * XR KNEE BILAT STANDING 1VW (07/29/2017 4:01 PM CDT) Anatomical Region Laterality Modality Lower Extremity Other Impressions 07/29/2017 4:51 PM CDT IMPRESSION: 1. Right hip: Normal. 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 2. Left hip: Normal. 3. Right knee: Normal. 4. Left knee: Normal. This report was electronically signed by JOSUÉ SUH MD ??on 07/29/2017 4:51 PM . Narrative 07/29/2017 4:51 PM CDT Exam: 1. ??XR HIP RIGHT 2-3 VW W/ PELVIS, 2. XR KNEES AP BILATERAL STANDING, 3. XR KNEE RIGHT 3 VW, 4. XR KNEE LEFT 3 VW, 5. XR HIP LEFT 2-3 VW History: 47 are old female with bilateral hip pain, sensation of hips going out of socket and difficulty walking. Also bilateral knee pain which has worsened recently. Comparison: None. Findings: Right hip 2 views with AP pelvis: There is no right hip fracture or dislocation. The joint space is normal. No erosions are present. There is articular surface irregularity and bone spurring at the pubic symphysis. The sacroiliac joints are normal. Left hip 2 views: No left hip fracture or dislocation is present. The joint space is normal. No erosions are seen. Right knee 3 views: No acute fracture or dislocation is present. No erosions are seen. The joint spaces are normal. There is no effusion. Bone density is normal. Left knee 3 view: No acute fracture or dislocation is present. No erosions are seen. The joint spaces are normal. There is no effusion. Bone density is normal. Standing bilateral knees: The joint spaces are normal bilaterally. Procedure Note Josué Suh MD - 01/09/2018 Exam: 1. XR HIP RIGHT 2-3 VW W/ PELVIS, 2. XR KNEES AP BILATERAL STANDING, 3. XR KNEE RIGHT 3 VW, 4. XR KNEE LEFT 3 VW, 5. XR HIP LEFT 2-3 VW History: 47 are old female with bilateral hip pain, sensation of hipsgoing out of socket and difficulty walking. Also bilateral knee pain whichhas worsened recently. Comparison: None. Findings: Right hip 2 views with AP pelvis: There is no right hip fracture or dislocation. The joint space is normal.No erosions are present. There is articular surface irregularity and bone spurring at the pubicsymphysis. The sacroiliac joints are normal. Left hip 2 views: No left hip fracture or dislocation is present. The joint space is normal.No erosions are seen. Right knee 3 views: No acute fracture or dislocation is present. No erosions are seen. Thejoint spaces are normal. There is no effusion. Bone density is normal. Left knee 3 view: No acute fracture or dislocation is present. No erosions are seen. Thejoint spaces are normal. There is no effusion. Bone density is normal. Standing bilateral knees: The joint spaces are normal bilaterally. IMPRESSION IMPRESSION: 1. Right hip: Normal. 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 2. Left hip: Normal. 3. Right knee: Normal. 4. Left knee: Normal. This report was electronically signed by JOSUÉ SUH MD on07/29/2017 4:51 PM . Sarika Edwards MD DIAGNOSTIC IMAGING O RDERABLES * XR KNEE LEFT 3VW (07/29/2017 4:01 PM CDT) Anatomical Region Laterality Modality Lower Extremity Other Impressions 07/29/2017 4:51 PM CDT IMPRESSION: 1. Right hip: Normal. 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 2. Left hip: Normal. 3. Right knee: Normal. 4. Left knee: Normal. This report was electronically signed by JOSUÉ SUH MD ??on 07/29/2017 4:51 PM . Narrative 07/29/2017 4:51 PM CDT Exam: 1. ??XR HIP RIGHT 2-3 VW W/ PELVIS, 2. XR KNEES AP BILATERAL STANDING, 3. XR KNEE RIGHT 3 VW, 4. XR KNEE LEFT 3 VW, 5. XR HIP LEFT 2-3 VW History: 47 are old female with bilateral hip pain, sensation of hips going out of socket and difficulty walking. Also bilateral knee pain which has worsened recently. Comparison: None. Findings: Right hip 2 views with AP pelvis: There is no right hip fracture or dislocation. The joint space is normal. No erosions are present. There is articular surface irregularity and bone spurring at the pubic symphysis. The sacroiliac joints are normal. Left hip 2 views: No left hip fracture or dislocation is present. The joint space is normal. No erosions are seen. Right knee 3 views: No acute fracture or dislocation is present. No erosions are seen. The joint spaces are normal. There is no effusion. Bone density is normal. Left knee 3 view: No acute fracture or dislocation is present. No erosions are seen. The joint spaces are normal. There is no effusion. Bone density is normal. Standing bilateral knees: The joint spaces are normal bilaterally. Procedure Note Josué Suh MD - 01/09/2018 Exam: 1. XR HIP RIGHT 2-3 VW W/ PELVIS, 2. XR KNEES AP BILATERAL STANDING, 3. XR KNEE RIGHT 3 VW, 4. XR KNEE LEFT 3 VW, 5. XR HIP LEFT 2-3 VW History: 47 are old female with bilateral hip pain, sensation of hipsgoing out of socket and difficulty walking. Also bilateral knee pain whichhas worsened recently. Comparison: None. Findings: Right hip 2 views with AP pelvis: There is no right hip fracture or dislocation. The joint space is normal.No erosions are present. There is articular surface irregularity and bone spurring at the pubicsymphysis. The sacroiliac joints are normal. Left hip 2 views: No left hip fracture or dislocation is present. The joint space is normal.No erosions are seen. Right knee 3 views: No acute fracture or dislocation is present. No erosions are seen. Thejoint spaces are normal. There is no effusion. Bone density is normal. Left knee 3 view: No acute fracture or dislocation is present. No erosions are seen. Thejoint spaces are normal. There is no effusion. Bone density is normal. Standing bilateral knees: The joint spaces are normal bilaterally. IMPRESSION IMPRESSION: 1. Right hip: Normal. 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 2. Left hip: Normal. 3. Right knee: Normal. 4. Left knee: Normal. This report was electronically signed by JOSUÉ SUH MD on07/29/2017 4:51 PM . Sarika Edwards MD DIAGNOSTIC IMAGING O RDERABLES * XR HIP LEFT 2VW OR MORE (07/29/2017 4:01 PM CDT) Anatomical Region Laterality Modality Pelvis, Lower Extremity Other Impressions 07/29/2017 4:51 PM CDT IMPRESSION: 1. Right hip: Normal. 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 2. Left hip: Normal. 3. Right knee: Normal. 4. Left knee: Normal. This report was electronically signed by JOSUÉ SUH MD ??on 07/29/2017 4:51 PM . Narrative 07/29/2017 4:51 PM CDT Exam: 1. ??XR HIP RIGHT 2-3 VW W/ PELVIS, 2. XR KNEES AP BILATERAL STANDING, 3. XR KNEE RIGHT 3 VW, 4. XR KNEE LEFT 3 VW, 5. XR HIP LEFT 2-3 VW History: 47 are old female with bilateral hip pain, sensation of hips going out of socket and difficulty walking. Also bilateral knee pain which has worsened recently. Comparison: None. Findings: Right hip 2 views with AP pelvis: There is no right hip fracture or dislocation. The joint space is normal. No erosions are present. There is articular surface irregularity and bone spurring at the pubic symphysis. The sacroiliac joints are normal. Left hip 2 views: No left hip fracture or dislocation is present. The joint space is normal. No erosions are seen. Right knee 3 views: No acute fracture or dislocation is present. No erosions are seen. The joint spaces are normal. There is no effusion. Bone density is normal. Left knee 3 view: No acute fracture or dislocation is present. No erosions are seen. The joint spaces are normal. There is no effusion. Bone density is normal. Standing bilateral knees: The joint spaces are normal bilaterally. Procedure Note Josué Suh MD - 01/09/2018 Exam: 1. XR HIP RIGHT 2-3 VW W/ PELVIS, 2. XR KNEES AP BILATERAL STANDING, 3. XR KNEE RIGHT 3 VW, 4. XR KNEE LEFT 3 VW, 5. XR HIP LEFT 2-3 VW History: 47 are old female with bilateral hip pain, sensation of hipsgoing out of socket and difficulty walking. Also bilateral knee pain whichhas worsened recently. Comparison: None. Findings: Right hip 2 views with AP pelvis: There is no right hip fracture or dislocation. The joint space is normal.No erosions are present. There is articular surface irregularity and bone spurring at the pubicsymphysis. The sacroiliac joints are normal. Left hip 2 views: No left hip fracture or dislocation is present. The joint space is normal.No erosions are seen. Right knee 3 views: No acute fracture or dislocation is present. No erosions are seen. Thejoint spaces are normal. There is no effusion. Bone density is normal. Left knee 3 view: No acute fracture or dislocation is present. No erosions are seen. Thejoint spaces are normal. There is no effusion. Bone density is normal. Standing bilateral knees: The joint spaces are normal bilaterally. IMPRESSION IMPRESSION: 1. Right hip: Normal. 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 2. Left hip: Normal. 3. Right knee: Normal. 4. Left knee: Normal. This report was electronically signed by JOSUÉ SUH MD on07/29/2017 4:51 PM . Sarika Edwards MD DIAGNOSTIC IMAGING O RDERABLES * IGG SUBCLASS 4 (07/26/2017 11:15 AM CDT) Pathologist [facility] [place] IgG Subclass 4 Pre 45 2 - 96 mg/dL [facility] ([facility]) Blood specimen (specimen) BLOOD SPECIMEN / Unknown 07/26/2017 11:15 AM CDT 07/26/2017 Narrative [facility] - 07/29/2017 7:12 AM CDT Performed at: ??02 - [facility] ??[id number] [employer]: Bolivar Patel MD, Phone: ??[phone] Sarika Edwards MD LAB - CHEMISTRY LISA THAYER [facility]) * URINALYSIS MICROSCOPIC ONLY REFLEXED (07/26/2017 11:15 AM CDT) Only the most recent of2 resultswithin the time period is included. Pathologist [facility] [place] WBC, UA 0-5 0 - 5 /hpf [facility] ([facility]) RBC UA None seen 0 - 2 /hpf [facility] ([facility]) Epithelial Cells (non renal) 0-10 0 - 10 /hpf [facility] Bacteria UA None seen None seen/Few [facility] ([facility]) 07/26/2017 11:1 5 AM CDT 07/26/2017 Narrative [facility] - 07/27/2017 9:08 AM CDT Performed at: ??01 - [facility] [address] ??[id number] [employer]: Darwin Hunter PhD, Phone: ??[phone] Sarika Jerry ONEIL LAB - URINALYSIS ORD ERABLES [facility] ([facility]) * URINALYSIS W/MICROSCOPIC REFLEX TO CULTURE (07/26/2017 11:15 AM CDT) Only the most recent of2 resultswithin the time period is included. Specific [place] 1.006 1.005 - 1.030 [facility] ([facility]) pH Urine 6.5 5.0 - 7.5 [facility] ([facility]) Color UA Yellow Yellow [facility] ([facility]) Appearance Clear Clear [facility] ([facility]) Leukocyte Esterase Negative Negative [facility] ([facility]) Protein UA Negative Negative/Tra [facility] ([facility]) Glucose UA Negative Negative [facility] ([facility]) Ketone UA Negative Negative [facility] ([facility]) Blood UA Negative Negative [facility] ([facility]) Bilirubin Negative Negative [facility] ([facility]) Urobilinogen Semi-Qn 0.2 0.2 - 1.0 mg/dL [facility] ([facility]) Nitrite UA Negative Negative [facility] ([facility]) Microscopic Examination [facility] ([facility]) Comment:Microscopic follows if indicated. Microscopic Examination See below: [facility] ([facility]) Comment:Microscopic was tiny cated and was performed. Urinalysis Reflex [facility] ([facility]) Comment:This specimen will n ot reflex to a Urine Culture. Urine specimen (specimen) 07/26/2017 11:15 AM CDT 07/26/2017 Narrative [facility] ([facility]) - 07/27/2017 9:08 AM CDT Specimen Type->Urine Performed at: ??01 - [facility] [address] ??[id number] [employer]: Darwin Hunter PhD, Phone: ??[phone] Sarika Edwards MD LAB - URINALYSIS ORD ERABLES Performing Organization Address [facility] de Phone Number [facility] ([place]) * TISSUE TRANSGLUTAMINASE AB IGG (07/26/2017 11:15 AM CDT) TTG Antibody IgG <2 0 - 5 U/mL [facility] ([place]) Comment: ?Negative ?0 - 5 ?Weak Positive ?? 6 - 9 ?Positive ? >9 Blood specimen (specimen) BLOOD SPECIMEN / Unknown 07/26/2017 11:15 AM CDT 07/26/2017 Narrative [facility] ([place]) - 07/28/2017 3:12 PM CDT Performed at: ??01 - [facility] [address] ??[id number] [employer]: Darwin Hunter PhD, Phone: ??[phone] Sarika Edwards MD LAB - CHEMISTRY LISA THAYER Performing Organization Address [facility] de Phone Number [facility] ([place]) * TISSUE TRANSGLUTAMINASE AB IGA (07/26/2017 11:15 AM CDT) TTG Antibody IgA <2 0 - 3 U/mL [facility] ([place]) Comment: ?Negative ?0 - ??3 ?Weak Positive ?? 4 - 10 ?Positive ? >10 Tissue Transglutaminase (tTG) has been identified as the endomysial antigen. ??Studies have demonstr- ated that endomysial IgA antibodies have over 99% specificity for gluten sensitive enteropathy. Blood specimen (specimen) BLOOD SPECIMEN / Unknown 07/26/2017 11:15 AM CDT 07/26/2017 Narrative [facility] ([facility]) - 07/28/2017 3:12 PM CDT Performed at: ??01 - [facility] ??[id number] [employer]: Darwin Hunter PhD, Phone: ??[phone] Sarika Edwards MD LAB - SEROLOGY ORDER SILVIA Performing Organization Address [facility] Co de Phone Number [facility] ([facility]) * ABBASI (SM) ANTIBODY SEB (07/26/2017 11:15 AM CDT) Only the most recent of2 resultswithin the time period is included. Abbasi Antibody <0.2 0.0 - 0.9 AI [facility] ([facility]) Blood specimen (specimen) BLOOD SPECIMEN / Unknown 07/26/2017 11:15 AM CDT 07/26/2017 Narrative [facility] ([facility]) - 07/28/2017 1:08 PM CDT Performed at: ??01 - [facility] ??[id number] [employer]: Darwin Hunter PhD, Phone: ??[phone] Sarika Edwards MD LAB - CHEMISTRY ORDE JEOVANY Performing Organization Address [facility] Co de Phone Number [facility] ([facility]) * IMAGING NURSE ANTIBODY (07/26/2017 11:15 AM CDT) Only the most recent of2 resultswithin the time period is included. IMAGING NURSE Antibody <0.2 0.0 - 0.9 AI [facility] Blood specimen (specimen) BLOOD SPECIMEN / Unknown 07/26/2017 11:15 AM CDT 07/26/2017 Narrative [facility]) - 07/28/2017 1:08 PM CDT Performed at: ??01 - [address], [place], [place] ??[id number] [employer]: Darwin Hunter PhD, Phone: ??[phone] Sarika Jerry ONE[facility] LAB - CHEMISTRY LISA THAYER [facility] * (ABNORMAL) FABIAN BLOOD TITER (07/26/2017 11:15 AM CDT) Only the most recent of3 resultswithin the time period is included. Speckled Pattern 1:160(H) [facility] Comment: Dense Fine Speckled pattern is noted. This pattern suggests the presence of DFS70 antibody which has a low prevalence in systemic autoimmune rheumatic diseases. Note [facility] ([place]) Comment: A positive FAIBAN result may occur in healthy individuals (low titer) or be associated with a variety of diseases. ??See interpretation chart which is not all inclusive: Pattern ?Antigen Detected ??Suggested Disease Association ? Homogeneous ??DNA(ds,ss), ? SLE - High titers ? Nucleosomes, ? Histones ?Drug-induced SLE ? Speckled ? Sm, IMAGING NURSE, SCL-70, ??SLE,MCTD,PSS (diffuse form), ? SS-A/SS-B ? Sjogrens ? Nucleolar ?SCL-70, PM-1/SCL ??High titers Scleroderma, ? PM/DM ? Centromere ?? Centromere ?PSS (limited form) w/Crest ? syndrome variable ? Nuclear Dot ??[id number] ??Primary Biliary Cirrhosis ? Nuclear ?GP210, ?Primary Biliary Cirrhosis Membrane ? luis enrique A,B,C ? 07/26/2017 11:1 5 AM CDT 07/26/2017 Narrative [facility]) - 07/28/2017 3:12 PM CDT Performed at: ??01 - [facility] ??[id number] [employer]: Darwin Hunter PhD, Phone: ??[phone] Sarika Edwards MD LAB - CHEMISTRY ORDE RABLES Performing Organization Address [facility] de Phone Number [facility] ([place] * DNA ANTIBODY DOUBLE STRANDED (07/26/2017 11:15 AM CDT) Only the most recent of2 resultswithin the time period is included. dsDNA Antibody <1 0 - 9 IU/mL [facility] Comment: ? Negative ?<5 ? Equivocal ??5 - 9 ? Positive ?>9 Blood specimen (specimen) BLOOD SPECIMEN / Unknown 07/26/2017 11:15 AM CDT 07/26/2017 Narrative [facility] ([place]) - 07/28/2017 1:08 PM CDT Performed at: ??01 - [facility] ??[id number] [employer]: Darwin Hunter PhD, Phone: ??[phone] Sarika Edwards MD LAB - HEMATOLOGY ORD ERABLES Performing Organization Address [facility] Co de Phone Number [facility] ([facility]) * CBC W AUTO DIFFERENTIAL (07/26/2017 11:15 AM CDT) Only the most recent of4 resultswithin the time period is included. WBC 5.4 3.4 - 10.8 x10E3/uL [facility] ([facility]) RBC 4.83 3.77 - 5.28 x10E6/uL [facility] ([facility]) Hemoglobin 14.9 11.1 - 15.9 g/dL [facility] ([facility]) Hematocrit 42.8 34.0 - 46.6 % [facility] ([facility]) MCV 89 79 - 97 fL [facility] ([facility]) MCH 30.8 26.6 - 33.0 pg [facility] ([facility]) MCHC 34.8 31.5 - 35.7 g/dL [facility] ([facility]) RDW-CV 12.9 12.3 - 15.4 % [facility] ([facility]) Platelet 200 150 - 379 x10E3/uL [facility] ([facility]) Neutrophils % 48 Not Estab. % [facility] ([facility]) Lymphocytes % 38 Not Estab. % [facility] ([facility]) Monocytes % 7 Not Estab. % [facility] ([facility]) Eosinophils % 6 Not Estab. % [facility] ([facility]) Basophil % 1 Not Estab. % [facility] ([facility]) Neutrophils Absolute 2.6 1.4 - 7.0 x10E3/uL [facility] ([facility]) Lymphocyte Absolute Manual 2.1 0.7 - 3.1 x10E3/uL [facility] ([facility]) Monocytes Absolute 0.4 0.1 - 0.9 x10E3/uL [facility] ([facility]) Eosinophils Absolute Manual 0.3 0.0 - 0.4 x10E3/uL [facility] ([facility]) Basophil Absolute Manual 0.0 0.0 - 0.2 x10E3/uL [facility] ([facility]) Immature Granulocytes % 0 Not Estab. % [facility] ([facility]) Immature Granulocytes absolute 0.0 0.0 - 0.1 x10E3/uL [facility] ([facility]) Blood specimen (specimen) BLOOD SPECIMEN / Unknown 07/26/2017 11:15 AM CDT 07/26/2017 Narrative [facility] ([place]) - 07/27/2017 7:08 AM CDT Performed at: ??01 - [facility] [address] ??[id number] [employer]: Darwin Hunter PhD, Phone: ??[phone] Sarika Edwards MD LAB - HEMATOLOGY ORD ERABLES [facility] ([place]) * METHICILLIN RAPID TEST (05/27/2017 4:00 PM CDT) Pathologist [facility] [place] Methicillin Rapid Test Negative Negative [facility] Fluid specimen (specimen) 05/27/2017 4:00 PM CDT 05/27/2017 5:18 PM CDT Narrative [facility] - 05/29/2017 10:50 AM CDT sinus Methicillin Susceptible Staphylococcus aureus (MSSA) by penicillin binding protein immunoassay. Conventional susceptibility testing to follow. Grupo Brice MD LAB - MICROBIOLOGY O RDERABLES [address] [phone] * (ABNORMAL) CULTURE AEROBIC (05/27/2017 4:00 PM CDT) Only the most recent of3 resultswithin the time period is included. Culture Aerobic Growth of respiratory mayito. [facility] Culture Aerobic STAPHYLOCOCCUS AUREUS(A) [facility] Comment: Very Light Growth Staphylococcus Aureus Organism further identified as Methicillin Susceptible Staphylococcus aureus (MSSA) by penicillin binding protein immunoassay. Culture Aerobic STREPTOCOCCUS PNEUMONIAE(A) [facility] Comment:Moderate Growth Stre ptococcus Pneumoniae Gram Stain [facility] Comment:QNS-1 swab. Fluid specimen (specimen) 05/27/2017 4:00 PM CDT 05/27/2017 5:18 PM CDT Narrative [facility] - 05/30/2017 2:05 PM CDT sinus Specimen Type->Body Fluid Gram Stains are routinely screened for the presence of Polymorphonuclear Cells. Organism Antibiotic Method Susceptibility Staphylococcus aureus Clindamycin SUSCEPTIBILITY 0.25: Sensitive Staphylococcus aureus Doxycycline SUSCEPTIBILITY <=0.5: Sensitive Staphylococcus aureus Erythromycin SUSCEPTIBILITY 0.5: Sensitive Staphylococcus aureus Gentamicin SUSCEPTIBILITY <=0.5: Sensitive Staphylococcus aureus Levofloxacin SUSCEPTIBILITY 0.25: Sensitive Staphylococcus aureus Oxacillin SUSCEPTIBILITY 0.5: Sensitive Comment: Oxacillin susceptibility predicts susceptibility to beta-lactam/beta-lactamase inhibitor combinations, cephalosporins, and carbapenems. Oxacillin resistance predicts resistance to all penicillins, beta-lactam/beta-lactamase inhibitor combinations, cephalosporins, and carbapenems with the exception of cephalosporins with anti-MRSA activity. ?? Staphylococcus aureus Trimethoprim-sulfa methoxa zole SUSCEPTIBILITY <=10: Sensitive Staphylococcus aureus Vancomycin SUSCEPTIBILITY <=0.5: Sensitive Streptococcus pneumoniae Penicillin-meningitis SUSCEPT IBILITY <=0.06: Sensitive Streptococcus pneumoniae Penicillin SUSCEPTIBILITY <=0.06: Sensitive Streptococcus pneumoniae Ceftriaxone-meningitis SUSCEP TIBILITY <=0.12: Sensitive Streptococcus pneumoniae Ceftriaxone-nonmeningitis STEVEN CEPTIBILITY <=0.12: Sensitive Streptococcus pneumoniae Erythromycin SUSCEPTIBILITY <=0.12: Sensitive Streptococcus pneumoniae Levofloxacin SUSCEPTIBILITY 0.5: Sensitive Streptococcus pneumoniae Trimethoprim-joy lfamethoxa zole SUSCEPTIBILITY <=10: Sensitive Streptococcus pneumoniae Vancomycin SUSCEPTIBILITY 0.5: Sensitive Grupo Brice MD LAB - MICROBIOLOGY O RDERABLES [address] [phone] * VITAMIN D 25-HYDROXY (02/07/2017 8:10 AM CDT) Only the most recent of2 resultswithin the time period is included. Vitamin D, 25 Hydroxy 33.8 30.0 - 100.0 ng/mL [facility] ([facility]) Comment: Vitamin D deficiency has been defined by the [place] of Medicine and an Endocrine Society practice guideline as a level of serum 25-OH vitamin D less than 20 ng/mL (1,2). The Endocrine Society went on to further define vitamin D insufficiency as a level between 21 and 29 ng/mL (2). 1. IOM ([place] of Medicine). 2010. Dietary reference ?? intakes for calcium and D. [place]: The ?? National Academies Press. 2. Adan MF, Papo NC, Ophelia WILSON, et al. ?? Evaluation, treatment, and prevention of vitamin D ?? deficiency: an Endocrine Society clinical practice ?? guideline. JCEM. 2010; 96(7):1911-30. Blood specimen (specimen) BLOOD SPECIMEN / Unknown 02/07/2017 8:10 AM CDT 02/07/2017 Narrative [facility] ([place]) - 02/11/2017 7:12 AM CDT Performed at: ??01 - [facility], [place], [place] ??[id number] Fitter Armament: Darwin Hunter PhD, Phone: ??[phone] Sarika Jerry ONE[facility] LAB - CHEMISTRY LISA THAYER [facility] [place]) * D-DIMER (02/07/2017 8:10 AM CDT) D-Dimer Quantitative <0.20 0.00 - 0.49 mg/L FEU [facility] ([place]) Comment: According to the assay field machinist's published package insert, a normal (<0.50 mg/L FEU) D-dimer result in conjunction with a non-high clinical probability assessment, excludes deep vein thrombosis (DVT) and pulmonary embolism (PE) with high sensitivity. D-dimer values increase with age and this can make VTE exclusion of an older population difficult. To address this, the [place] [employer], based on best available evidence and recent guidelines, recommends that clinicians use age-adjusted D-dimer thresholds in patients greater than 50 years of age with: a) a low probability of PE who do not meet all Pulmonary Embolism Rule Out Criteria, or b) in those with intermediate probability of PE. The formula for an age-adjusted D-dimer cut-off is age/100 . For example, a 60 year old patient would have an age-adjusted cut-off of 0.60 mg/L FEU and an 80 year old 0.80 mg/L FEU. Blood specimen (specimen) BLOOD SPECIMEN / Unknown 02/07/2017 8:10 AM CDT 02/07/2017 Narrative [facility] ([place]) - 02/11/2017 7:12 AM CDT Performed at: ??01 - [facility] [address] ??[id number] Fitter Armament: Darwin Hunter PhD, Phone: ??[phone] Sarika Edwards MD LAB - COAGULATION OR DERABLES [facility] [place]) * RHEUMATOID FACTOR IGA (02/05/2016 11:21 AM CDT) Rheumatoid Factor IgA 5.1 EU/mL [facility] [place]) Comment: Reference Range: Negative: < 20 EU/ml Borderline/Equivocal: 20-25 EU/ml Positive: > 25 EU/ml The presence of abnormal levels of all three rheumatoid factor (RF) isotypes has a specificity of 99% for Rheumatoid Arthritis. IgA- RF alone can occur in Henoch Schoenlein purpura. RF in any isotype combination may be found in hepatitis C, Sjogren syndrome, and other chronic infections. *This test has been developed and performance parameters have been validated by [employer] This test has not been approved by the U.S. Food and Drug Administration (FDA); however, US FDA approval is not required for clinical use. It is not intended that clinical diagnosis and patient management decisions be made using these results alone. This test has been validated using serum samples. The field machinist has not determined the efficacy of this test when performed on CSF, plasma, joint or pleural fluid specimens. The performance characteristics of this test were determined by [employer] 02/05/2016 11:2 1 AM CDT 02/05/2016 4:02 PM CDT Narrative [facility]) - 02/13/2016 11:20 AM CDT Performed at: ??02 - [facility] [address] [place] [address] ??[id number] Fitter Armament: Ramón Winters PhD, Phone: ??[phone] Sarika Jerry ONE[facility] - SEROLOGY ORDER SILVIA [facility]) * (ABNORMAL) CELIAC DISEASE EVALUATION PANEL (02/05/2016 11:21 AM CDT) IgA Quantitative 74(L) 87 - 352 mg/dL [facility] ([place]) Gliadin Antibody IgA 4 0 - 19 units [facility] ([place]) Comment: ? Negative ? 0 - 19 ? Weak Positive ? 20 - 30 ? Moderate to Strong Positive ?? >30 TTG Antibody IgA <2 0 - 3 U/mL [facility] [place]) Comment: ?Negative ?0 - ??3 ?Weak Positive ?? 4 - 10 ?Positive ? >10 Tissue Transglutaminase (tTG) has been identified as the endomysial antigen. ??Studies have demonstr- ated that endomysial IgA antibodies have over 99% specificity for gluten sensitive enteropathy. 02/05/2016 11:2 1 AM CDT 02/05/2016 4:02 PM CDT Narrative [facility]) - 02/13/2016 11:20 AM CDT Performed at: ??01 - [address], [place], [place] ??[id number] Fitter Armament: Darwin Hunter PhD, Phone: ??[phone] Sarika Edwards MD LAB - SEROLOGY ORDER SILVIA Performing Organization Address City/[facility]/ZIP Co de Phone Number [facility] ([facility]) * SS-A/SS-B (SJOGRENS) ANTIBODY PANEL (02/05/2016 11:21 AM CDT) Only the most recent of2 resultswithin the time period is included. Sjogren's Antibodies (SSA) <0.2 0.0 - 0.9 AI [facility] ([facility]) Sjogren's Antibodies (SSB) <0.2 0.0 - 0.9 AI [facility] ([facility]) 02/05/2016 11:2 1 AM CDT 02/05/2016 4:02 PM CDT Narrative [facility] ([facility]) - 02/13/2016 11:20 AM CDT Performed at: ??01 - [facility] ??[id number] Fitter Armament: Darwin Hunter PhD, Phone: ??[phone] Sarika Edwards MD LAB - CHEMISTRY LISA THAYER Performing Organization Address [facility] de Phone Number [facility] ([facility]) * (ABNORMAL) COMPLEMENT TOTAL (02/05/2016 11:21 AM CDT) Complement Total CH50 >60(H) 42 - 60 U/mL [facility] ([facility]) Blood specimen (specimen) BLOOD SPECIMEN / Unknown 02/05/2016 11:21 AM CDT 02/05/2016 4:02 PM CDT Narrative [facility] ([facility]) - 02/13/2016 11:20 AM CDT Performed at: ??01 - [facility] ??[id number] Fitter Armament: Darwin Hunter PhD, Phone: ??[phone] Sarika Edwards MD LAB - CHEMISTRY LISA THAYER Performing Organization Address City/[facility]/ZIP Co de Phone Number [facility]) * CYCLIC CITRUL PEPTIDE AB IGG (CCP) (02/05/2016 11:21 AM CDT) Cyclic Citrullinated Peptide Antibody <1 0 - 19 units [facility]) Comment: ?Negative ? <20 ?Weak positive ?20 - 39 ?Moderate positive ??40 - 59 ?Strong positive ?>59 Blood specimen (specimen) BLOOD SPECIMEN / Unknown 02/05/2016 11:21 AM CDT 02/05/2016 4:02 PM CDT Narrative [facility]) - 02/13/2016 11:20 AM CDT Performed at: ??03 - [address] ??[id number] Fitter Armament: Bolivar Patel MD, Phone: ??[phone] Sarika Jerry ONE[facility] - CHEMISTRY LISA THAYER Performing Organization Address City/[facility]/ZIP Co de Phone Number [facility]) * PHOSPHORUS BLOOD (02/05/2016 11:21 AM CDT) Phosphorus 4.0 2.5 - 4.5 mg/dL [facility] [place]) Blood specimen (specimen) BLOOD SPECIMEN / Unknown 02/05/2016 11:21 AM CDT 02/05/2016 4:02 PM CDT Narrative [facility]) - 02/13/2016 11:20 AM CDT Performed at: ??01 - [facility] [address], [place], [place] ??[id number] Fitter Armament: Darwin Hunter PhD, Phone: ??[phone] Sarika Edwards MD LAB - CHEMISTRY LISA THAYER Performing Organization Address [facility]/ZIP Co de Phone Number [facility] * MAGNESIUM BLOOD (02/05/2016 11:21 AM CDT) Pathologist [facility] Magnesium 1.8 1.6 - 2.3 mg/dL [facility] ([facility]) Blood specimen (specimen) BLOOD SPECIMEN / Unknown 02/05/2016 11:21 AM CDT 02/05/2016 4:02 PM CDT Narrative [facility] ([facility]) - 02/13/2016 11:20 AM CDT Performed at: ??01 - [address] ??[id number] Fitter Armament: Darwin Hunter PhD, Phone: ??[phone] Sarika Edwards MD LAB - CHEMISTRY LISA THAYER Performing Organization Address [facility] Co de Phone Number [facility] * HEPATITIS C ANTIBODY (02/05/2016 11:21 AM CDT) Pathologist [facility] Hepatitis C Virus Antibody <0.1 0.0 - 0.9 s/co ratio [facility] Comment: ?Negative: ? < 0.8 ? Indeterminate: 0.8 - 0.9 ?Positive: ? > 0.9 The CDC recommends that a positive HCV antibody result be followed up with a HCV Nucleic Acid Amplification test (860531). Blood specimen (specimen) BLOOD SPECIMEN / Unknown 02/05/2016 11:21 AM CDT 02/05/2016 4:02 PM CDT Narrative [facility] ([facility]) - 02/13/2016 11:20 AM CDT Performed at: ??01 - [facility] ??[id number] Fitter Armament: Darwin Hunter PhD, Phone: ??[phone] Sarika Edwards MD LAB - CHEMISTRY LISA THAYER Performing Organization Address City/[facility]/ZIP Co de Phone Number [facility] ([facility]) * FERRITIN (02/05/2016 11:21 AM CDT) Ferritin 83 15 - 150 ng/mL [facility] ([facility]) Blood specimen (specimen) BLOOD SPECIMEN / Unknown 02/05/2016 11:21 AM CDT 02/05/2016 4:02 PM CDT Narrative [facility] ([facility]) - 02/13/2016 11:20 AM CDT Performed at: ??01 - [address] ??[id number] Fitter Armament: Darwin Hunter PhD, Phone: ??[phone] Sarika Edwards MD LAB - CHEMISTRY LISA THAYER Performing Organization Address [facility]/ZIP Co de Phone Number [facility] * LAB HISTORICAL RESULTS-ONBASE (04/13/2015) Only the most recent of26 resultswithin the time period is included. 04/13/[address] [facility] - 04/13/2015 3:16 PM CDT Historical Provider LAB - CHEMISTRY Arun MARTINEZ Performing Organization Address City/[facility]/ZIP Co de Phone Number [facility] [address] * CULTURE MRSA (07/05/2014 10:45 PM CDT) Culture MRSA Screen No Growth of Methicillin Resistant Staphylococcus aureus. [facility] Nasopharyngeal 07/05/2014 10 :45 PM CDT 07/06/2014 8:57 AM CDT [facility] - 07/07/2014 9:38 AM CDT AndersonSpecimen#[id number] Paramjit Loc/Rm/Bed: ICU/ICU/03 Historical Provider LAB - MICROBIOLOG Y ORDERABLES Performing Organization Address [facility] Co de Phone Number [facility] [address] [place] [address] * (ABNORMAL) CULTURE URINE (06/16/2014 1:00 AM CDT) Culture Urine ESCHERICHIA COLI(A) [facility] Comment:1,000,000 CFU/ML Esc herichia Coli Urine specimen (specimen) URINE SPECIMEN OBTAINED BY CLEAN CATCH PROCEDURE / Unknown 06/16/2014 1:00 AM CDT 06/16/2014 9:13 AM CDT [facility] - 06/18/2014 1:22 PM CDT ParamjitSpecimen#[id number] Paramjit Loc/Rm/Bed: ED// CLN CATCH U @06/16/14 0123: URINE CULTURE added. RFLXG = UAUCC. Organism Antibiotic Method Susceptibility Escherichia coli Amikacin SUSCEPTIBILITY <=2: Sensitive Escherichia coli Ampicillin SUSCEPTIBILITY 4: Sensitive Escherichia coli Ampicillin-sulbactam SUSCEPTIBILITY <=2: Sensitive Escherichia coli Cefazolin SUSCEPTIBILITY <=4: Sensitive Escherichia coli Cefepime SUSCEPTIBILITY <=1: Sensitive Escherichia coli Ceftazidime SUSCEPTIBILITY <=1: Sensitive Escherichia coli Ceftriaxone SUSCEPTIBILITY <=1: Sensitive Escherichia coli Gentamicin SUSCEPTIBILITY <=1: Sensitive Escherichia coli Imipenem SUSCEPTIBILITY <=0.25: Sensitive Escherichia coli Levofloxacin SUSCEPTIBILITY <=0.12: Sensitive Escherichia coli Nitrofurantoin SUSCEPTIBILITY <=16: Sensitive Escherichia coli Piperacillin-tazobactam SUSCEPTIBILIT Y <=4: Sensitive Escherichia coli Tobramycin SUSCEPTIBILITY <=1: Sensitive Escherichia coli Trimethoprim-sulfamethoxazole SUSCEPT IBILITY <=20: Sensitive Escherichia coli Extended-Spectrum Beta-Lactamase SUSC EPTIBILITY Neg: - Historical Provider LAB - MICROBIOLOG Y ORDERABLES Performing Organization Address City/[facility] Co de Phone Number [address] [phone] * (ABNORMAL) CULTURE AEROBIC + GRAM STAIN (02/16/2014 4:44 PM CDT) Culture Aerobic STAPHYLOCOCCUS AUREUS(A) [facility] Comment:Heavy Growth Staphyl ococcus Aureus Culture Aerobic MULTI-DRUG RESISTANT ORGANISM(A) [facility] Comment: Multi-Drug Resistant Organism Further Identified as Multi-drug Resistant Organism. Patient MUST be placed on Contact Isolation Precautions. Nasal 02/16/2014 4:44 PM CDT 02/17/2014 10:49 AM CDT Narrative Organism Antibiotic Method Susceptibility Staphylococcus aureus Clindamycin SUSCEPTIBILITY >=4: Resistant Staphylococcus aureus Doxycycline SUSCEPTIBILITY <=0.5: Sensitive Staphylococcus aureus Erythromycin SUSCEPTIBILITY >=8: Resistant Staphylococcus aureus Gentamicin SUSCEPTIBILITY <=0.5: Sensitive Staphylococcus aureus Levofloxacin SUSCEPTIBILITY 4: Resistant Staphylococcus aureus Linezolid SUSCEPTIBILITY 2: Sensitive Staphylococcus aureus Oxacillin SUSCEPTIBILITY >=4: Resistant Comment: Oxacillin Susceptibility predicts susceptibility to Beta-Lactam/Beta-Lactamase Inhibitor combinations, Cephalosporins, and Carbapenems. Oxacillin Resistance predicts resistance to all Penicillins, Beta-Lactam/Beta-Lactamase Inhibitor combinations, Cephalosporins, and Carbapenems with the exception of Cephalosporins with Anti-MRSA activity. Staphylococcus aureus Trimethoprim-sulfa methoxa zole SUSCEPTIBILITY <=10: Sensitive Staphylococcus aureus Vancomycin SUSCEPTIBILITY 1: Sensitive Comment: FURTHER IDENTIFIED MULTI-DRUG RESISTANT ORGANISM. ?? PATIENT MUST BE PLACED ON CONTACT ISOLATION PRECAUTIONS. Grupo Brice MD LAB - MICROBIOLOGY O JUAN Performing Organization Address [facility] Co de Phone Number [address] [phone] * PATHOLOGY/GENETICS HISTORICAL-ONBASE (07/15/2013) Only the most recent of9 resultswithin the time period is included. 07/15/[address] [facility] - 08/10/2013 1:27 PM CDT Historical Provider LAB - CHEMISTRY O JUAN Performing Organization Address [facility]/ZIP Co de Phone Number [facility] [address] * LAB RESULTS ORDER (07/15/2013) Only the most recent of5 resultswithin the time period is included. Ryanne Holliday MD LAB - THERAPEUTIC DR HURTADO MONITORING ORDERABLES Care Teams Director Content Marketing Relationship Specialty Start Date End Date Jonathan Amado MD [address] [place] [phone] PCP - General Family Medicine 09/15/23 Jonathan Amado MD [address] [place] [phone] 06/24/13
--- OUTSIDE RECORDS SUMMARY | 2024-10-17 03:05 | XMS_ITS | Encounter Summary ---
Author Organization [facility] Address [address] [place] [address] Care Team Providers Care Director Employee Communications Name Role Phone Jonathan Amado MD Unavailable [phone] Jonathan Amado MD Primary Care Provider [phone] Encounter Details Date Type Department Care Team (Latest Contact Info) Description 08/24/2024 3:40 PM CERTIFIED MEDICAL CODER Clinical Support [facility] [address] [place] [phone] Allergic rhinitis due to pollen, unspecified [...] Progress Notes * Niru Valera MA - 08/24/2024 3:21 PM CST This person is taking immunotherapy for previously diagnosed allergic rhinitis. Serum calculations have been reviewed by Dr. Arellano on 05/03/2024 . Allergy Individual Dosing Allergy extracts mixed: 05/13/2024 and 6 months after date mixed. date [place] mix Mold mix Phenol saline Vial in [...] upper arm SQ-ar 08/1708/18/2024 0.25 0.25 0.00 pt Left upper arm SQ-ar 08/24 Physician in office: Houston Pantoja MD Epipen exp 12/2024 Department of Otolaryngology Head and Neck Surgery Patient Name: Pina Reynaga : 1970 Date: 08/24/2024 1. Did you bring your Epi-pen with you to clinic today? Yes 2. How are you feeling today? Fine. 3. How have you been feeling since [...] have a temperature >101? no Injection time: 1526 Site: Left Upper Arm SQ Vial Contents [...] on feet,voices no complaints. Spouse with pt. IFIED MEDICAL CODER documented in this encounter Plan of Treatment Upcoming Encounters Date Type Department Care Team (Late st Contact Info) Description 10/19/2024 3:40 PM CERTIFIED MEDICAL CODER Clinical Support [facility] [address] [place] [phone] 10/26/2024 3:20 PM CERTIFIED MEDICAL CODER Clinical Support [facility] [address] [place] [phone] 11/02/2024 3:40 PM CERTIFIED MEDICAL CODER Clinical Support [facility] [address] [place] [phone] 11/09/2024 3:20 PM CERTIFIED MEDICAL CODER Clinical Support [facility] [address] [place] [phone] documented as of this encounter Visit Diagnoses Diagnosis Allergic rhinitis due to pollen, unspecified seasonality- Primary documented in this encounter Care Teams Director Employee Communications Relationship Specialty Start Date End Date Jonathan Amado MD [address] [place] [phone] PCP - General Family Medicine 09/15/23 Jonathan Amado MD [facility] [place] [phone] 06/24/13 documented as of this encounter
--- OUTSIDE RECORDS SUMMARY | 2024-10-17 03:05 | XMS_ITS | Encounter Summary ---
Author Organization [facility] Address [facility] [facility] [place] [address] Care Team Providers Care Textile Colorist Formulator Name Role Phone Jonathan Amado MD Unavailable [phone] Jonathan Amado MD Primary Care Provider [phone] Encounter Details Date Type Department Care Team (Latest Contact Info) Description 08/31/2024 Travel Social History Tobacco Use Types Packs/Day [...] st Contact Info) Description 10/19/2024 3:40 PM UNDERWRITING CLERKS SUPERVISOR Clinical Support [facility] [address] [place] [phone] 10/26/2024 3:20 PM UNDERWRITING CLERKS SUPERVISOR Clinical Support [facility] [address] [place] [phone] 11/02/2024 3:40 PM UNDERWRITING CLERKS SUPERVISOR Clinical Support [facility] [address] [place] [phone] 11/09/2024 3:20 PM UNDERWRITING CLERKS SUPERVISOR Clinical Support [facility] [address] [place] [phone] documented as of this encounter Visit Diagnoses Not on filedocumented in this encounter Care Teams Textile Colorist Formulator Relationship Specialty Start Date End Date Jonathan Amado MD [address] [place] [phone] PCP - General Family Medicine 09/15/23 Jonathan Amado MD [address] [place] [phone] 06/24/13 documented as of this encounter
--- OUTSIDE RECORDS SUMMARY | 2024-10-17 03:05 | XMS_ITS | Encounter Summary ---
Author Organization [facility] Address [address] [facility] [place] [address] Care Team Providers Care Product Manufacturing Professional Name Role Phone Jonathan Amado MD Unavailable [phone] Jonathan Amado MD Primary Care Provider [phone] Reason for Visit * Reason Comments Immunotherapy Allergy shot Encounter Details Date Type Department Care Team (Latest Contact Info) Description 08/10/2024 3:40 PM CDT Clinical Support [facility] [address] [place] [phone] Allergic rhinitis due to pollen, unspecified [...] encounter Progress Notes * Ryanne Amaya - 08/10/2024 3:10 PM CDT This person is taking immunotherapy for previously diagnosed allergic rhinitis. Serum calculations have been reviewed by Dr. Arellano on 05/03/2024 . Allergy Individual Dosing Allergy extracts mixed: 05/13/2024 and 6 months after date mixed. date [place] mix Mold mix Phenol saline Vial in [...] upper arm SQ-ls 08/1008/11/2024 0.25 0.25 0.00 08/18/2024 0.25 0.25 0.00 Physician in office: Houston Pantoja MD Epipen exp 12/2024 Department of Otolaryngology Head and Neck Surgery Patient Name: Pina Reynaga : 1970 Date: 08/10/2024 1. Did you bring your Epi-pen with [...] have a temperature >101? no Injection time: 1514 Site: Left Upper Arm SQ Vial Contents diluted with 0.5ml Normal Saline: No Reaction: none Action taken: benadryl cream applied at injection site. Reviewed treatment for local reaction including call office for reaction > 2 inches. Reviewed use epi-pen for signs of anaphylaxis, and call 911. Pt & spouse acknowledge understanding. 1534 Time ambulatory from clinic in no distress, color pink, respiratory unlabored, steady on feet,voices no complaints. Spouse with pt. documented in this encounter Plan of Treatment Upcoming Encounters Date Type Department Care Team (Late st Contact Info) Description 10/19/2024 3:40 PM SPORTS PHYSIOLOGIST Clinical Support [facility] [address] [place] [phone] 10/26/2024 3:20 PM SPORTS PHYSIOLOGIST Clinical Support [facility] [address] [place] [phone] 11/02/2024 3:40 PM SPORTS PHYSIOLOGIST Clinical Support [facility] [address] [place] [phone] 11/09/2024 3:20 PM SPORTS PHYSIOLOGIST Clinical Support [facility] [address] [place] [phone] documented as of this encounter Visit Diagnoses Diagnosis Allergic rhinitis due to pollen, unspecified seasonality- Primary documented in this encounter Care Teams Product Manufacturing Professional Relationship Specialty Start Date End Date Jonathan Amado MD [address] [place] [phone] PCP - General Family Medicine 09/15/23 Jonathan Amado MD [address] [place] [phone] 06/24/13 documented as of this encounter
--- OUTSIDE RECORDS SUMMARY | 2024-10-17 03:05 | XMS_ITS | Encounter Summary ---
Author Organization [facility] Address [facility] [facility] [address] [place] [address] Care Team Providers Care Pleater Name Role Phone Jonathan Amado MD Unavailable [phone] Jonathan Amado MD Primary Care Provider [phone]- [phone] Encounter Details Date Type Department Care Team (Latest Contact Info) Description 05/05/2024 Travel Social History Tobacco Use Types Packs/Day [...] st Contact Info) Description 10/19/2024 3:40 PM ALKYLATION OPERATOR Clinical Support [facility] [address] [place] [phone] 10/26/2024 3:20 PM ALKYLATION OPERATOR Clinical Support [facility] [address] [place] [phone] 11/02/2024 3:40 PM ALKYLATION OPERATOR Clinical Support [facility] [address] [place] [phone] 11/09/2024 3:20 PM ALKYLATION OPERATOR Clinical Support [facility] [address] [place] [phone] documented as of this encounter Visit Diagnoses Not on filedocumented in this encounter Care Teams Pleater Relationship Specialty Start Date End Date Jonathan Amado MD [address] [place] [phone] PCP - General Family Medicine 09/15/23 Jonathan Amado MD [address] [place] [phone] 06/24/13 documented as of this encounter
--- OUTSIDE RECORDS SUMMARY | 2024-10-17 03:05 | XMS_ITS | Encounter Summary ---
Author Organization [facility] Address [facility] [facility] [place] [address] Care Team Providers Care Driller Machine Name Role Phone Jonathan Amado MD Unavailable [phone] Jonathan Amado MD Primary Care Provider [phone]- [phone] Encounter Details Date Type Department Care Team (Latest Contact Info) Description 06/23/2024 Travel Social History Tobacco Use Types Packs/Day [...] st Contact Info) Description 10/19/2024 3:40 PM ALUM PLANT SUPERVISOR Clinical Support [facility] [address] [place] [phone] 10/26/2024 3:20 PM ALUM PLANT SUPERVISOR Clinical Support [facility] [address] [place] [phone] 11/02/2024 3:40 PM ALUM PLANT SUPERVISOR Clinical Support [facility] [address] [place] [phone] 11/09/2024 3:20 PM ALUM PLANT SUPERVISOR Clinical Support [facility] [address] [place] [phone] documented as of this encounter Visit Diagnoses Not on filedocumented in this encounter Care Teams Driller Machine Relationship Specialty Start Date End Date Jonathan Amado MD [address] [place] [phone] PCP - General Family Medicine 09/15/23 Jonathan Amado MD [address] [place] [phone] 06/24/13 documented as of this encounter
--- OUTSIDE RECORDS SUMMARY | 2024-10-17 03:05 | XMS_ITS | Encounter Summary ---
Author Organization [facility] Address [facility] [facility] [place] [address] Care Team Providers Care Reading Teacher Name Role Phone Jonathan Amado MD Unavailable [phone] Jonathan Amado MD Primary Care Provider [phone] Encounter Details Date Type Department Care Team (Latest Contact Info) Description 07/13/2024 Travel Social History Tobacco Use Types Packs/Day [...] st Contact Info) Description 10/19/2024 3:40 PM GREENHOUSE FLORIST Clinical Support [facility] [address] [place] [phone] 10/26/2024 3:20 PM GREENHOUSE FLORIST Clinical Support [facility] [address] [place] [phone] 11/02/2024 3:40 PM GREENHOUSE FLORIST Clinical Support [facility] [address] [place] [phone] 11/09/2024 3:20 PM GREENHOUSE FLORIST Clinical Support [facility] [address] [place] [phone] documented as of this encounter Visit Diagnoses Not on filedocumented in this encounter Care Teams Reading Teacher Relationship Specialty Start Date End Date Jonathan Amado MD [address] [place] [address] PCP - General Family Medicine 09/15/23 Jonathan Amado MD [address] [place] [phone] 06/24/13 documented as of this encounter
--- OUTSIDE RECORDS SUMMARY | 2024-10-17 03:05 | XMS_ITS | Encounter Summary ---
Author Organization [facility] Address [facility] [place] [address] Care Team Providers Care Insurance Verification Representative Name Role Phone Jonathan Amado MD Unavailable [phone] Jonathan Amado MD Primary Care Provider [phone]- [phone] Encounter Details Date Type Department Care Team (Latest Contact Info) Description 08/24/2024 Travel Social History Tobacco Use Types Packs/Day [...] st Contact Info) Description 10/19/2024 3:40 PM VE TEACHER Clinical Support [facility] [address] [place] [phone] 10/26/2024 3:20 PM VE TEACHER Clinical Support [facility] [address] [place] [phone] 11/02/2024 3:40 PM VE TEACHER Clinical Support [facility] [address] [place] [phone] 11/09/2024 3:20 PM VE TEACHER Clinical Support [facility] [address] [place] [phone] documented as of this encounter Visit Diagnoses Not on filedocumented in this encounter Care Teams Insurance Verification Representative Relationship Specialty Start Date End Date Jonathan Amado MD [address] [place] [phone] PCP - General Family Medicine 09/15/23 Jonathan Amado MD [address] [place] [address] 06/24/13 documented as of this encounter
--- OUTSIDE RECORDS SUMMARY | 2024-10-17 03:05 | XMS_ITS | Encounter Summary ---
Author Organization [facility] Address [address] [facility] [place] [address] Care Team Providers Care Straight Ruling Machine Operator Name Role Phone Jonathan Amado MD Unavailable [phone] Jonathan Amado MD Primary Care Provider [phone] Reason for Visit * Reason Comments Immunotherapy Allergy shot Encounter Details Date Type Department Care Team (Latest Contact Info) Description 06/23/2024 3:40 PM CDT Clinical Support [facility] [address] [place] [phone] Seasonal allergic rhinitis due to pollen Social [...] encounter Progress Notes * Ryanne Amaya - 06/23/2024 3:23 PM CDT This person is taking immunotherapy for previously diagnosed allergic rhinitis. Serum calculations have been reviewed by Dr. Arellano on 05/03/2024 . Allergy Individual Dosing Allergy extracts mixed: 05/13/2024 and 6 months after date mixed. date [place] mix Mold mix Phenol saline Vial in series verified with Signature & location 06/09/2024 0.25 0.05 0.20 pt Left upper arm SQ-ls 06/15/2024 06/16/2024 0.25 0.10 0.15 pt Left upper arm SQ-ls 06/2306/23/2024 0.25 0.15 0.10 06/30/2024 0.25 0.20 0.05 07/07/2024 0.25 0.25 0.00 07/14/2024 0.25 0.25 0.00 07/21/2024 0.25 0.25 0.00 0.25 0.25 0.00 08/04/2024 0.25 0.25 0.00 08/11/2024 0.25 0.25 0.00 08/18/2024 0.25 0.25 0.00 Physician in office: Brynn Lo MD Diagnosis: j30.1 Allergic rhinitis Epipen exp 12/2024 Department of Otolaryngology Head and Neck Surgery Patient Name: Pina Reynaga : 1970 Date: 06/23/2024 1. Did you bring your Epi-pen with [...] temperature >101? no Injection time: 1525 Site: left Upper Arm SQ Vial Contents [...] st Contact Info) Description 10/19/2024 3:40 PM CHIEF INVESTMENT OFFICER Clinical Support [facility] [address] [place] [phone] 10/26/2024 3:20 PM CHIEF INVESTMENT OFFICER Clinical Support [facility] [address] [place] [phone] 11/02/2024 3:40 PM CHIEF INVESTMENT OFFICER Clinical Support [facility] [address] [place] [phone] 11/09/2024 3:20 PM CHIEF INVESTMENT OFFICER Clinical Support [facility] [address] [place] [phone] documented as of this encounter Visit Diagnoses Diagnosis Seasonal allergic rhinitis due to pollen- Primary documented in this encounter Care Teams Straight Ruling Machine Operator Relationship Specialty Start Date End Date Jonathan Amado MD [address] [place] [phone] PCP - General Family Medicine 09/15/23 Jonathan Amado MD [address] [place] [phone] 06/24/13 documented as of this encounter
--- OUTSIDE RECORDS SUMMARY | 2024-10-17 03:05 | XMS_ITS | Encounter Summary ---
Author Organization [facility] Address [address] [facility] [place] [address] Care Team Providers Care Legal Paraprofessional Name Role Phone Jonathan Amado MD Unavailable [phone] Jonathan Amado MD Primary Care Provider [phone] Encounter Details Date Type Department Care Team (Latest Contact Info) Description 04/28/2024 3:40 PM CDT Clinical Support [facility] [address] [place] [phone] Allergic rhinitis due to pollen, unspecified [...] Progress Notes * Niru Valera MA - 04/28/2024 3:31 PM CDT This person is taking immunotherapy [...] upper arm SQ-ar 04/2804/27/2024 0.22 0.25 0.03 05/04/2024 0.25 0.25 0.00 05/11/2024 0.25 0.25 0.00 05/18/2024 0.25 0.25 0.00 05/25/2024 0.25 0.25 0.00 Physician in office: Brynn Lo MD Diagnosis: j30.1 Allergic rhinitis Epipen exp 12/2024 Department of Otolaryngology Head and Neck Surgery Patient Name: Pina Reynaga : 1970 Date: 04/28/2024 1. Did you bring your Epi-pen with [...] have a temperature >101? no Injection time: 1537 Site: Left Upper Arm SQ Vial Contents diluted with 0.5ml Normal Saline: No Reaction: none Action taken: benadryl cream applied at injection site. Suggested take extra dose oral antihistamine this evening. Reviewed treatment for local reaction including call office for reaction > 2 inches. Reviewed use epi-pen for signs of anaphylaxis, and call 911. Pt & spouse acknowledge understanding. 1556 Time ambulatory from clinic in no distress, color pink, respiratory unlabored, steady on feet,voices no complaints. Spouse with pt. documented in this encounter Plan of Treatment Upcoming Encounters Date Type Department Care Team (Late st Contact Info) Description 10/19/2024 3:40 PM MANAGER SMALL BUSINESS Clinical Support [facility] [address] [place] [phone] 10/26/2024 3:20 PM MANAGER SMALL BUSINESS Clinical Support [facility] [address] [place] [phone] 11/02/2024 3:40 PM MANAGER SMALL BUSINESS Clinical Support [facility] [address] [place] [phone] 11/09/2024 3:20 PM MANAGER SMALL BUSINESS Clinical Support [facility] [address] [place] [phone] documented as of this encounter Visit Diagnoses Diagnosis Allergic rhinitis due to pollen, unspecified seasonality- Primary documented in this encounter Care Teams Legal Paraprofessional Relationship Specialty Start Date End Date Jonathan Amado MD [address] [place] [phone] PCP - General Family Medicine 09/15/23 Jonathan Amado MD [address] [place] [phone] 06/24/13 documented as of this encounter
--- OUTSIDE RECORDS SUMMARY | 2024-10-17 03:05 | XMS_ITS | Encounter Summary ---
Author Organization [facility] Address [facility] [facility] [place] [address] Care Team Providers Care Clinical Secretary Name Role Phone Jonathan Amado MD Unavailable [phone] Jonathan Amado MD Primary Care Provider [phone] Encounter Details Date Type Department Care Team (Latest Contact Info) Description 07/27/2024 Travel Social History Tobacco Use Types Packs/Day [...] st Contact Info) Description 10/19/2024 3:40 PM BACK TACKER Clinical Support [facility] [address] [place] [phone] 10/26/2024 3:20 PM BACK TACKER Clinical Support [facility] [address] [place] [phone] 11/02/2024 3:40 PM BACK TACKER Clinical Support [facility] [address] [place] [phone] 11/09/2024 3:20 PM BACK TACKER Clinical Support [facility] [address] [place] [phone] documented as of this encounter Visit Diagnoses Not on filedocumented in this encounter Care Teams Clinical Secretary Relationship Specialty Start Date End Date Jonathan Amado MD [address] [place] [phone] PCP - General Family Medicine 09/15/23 Jonathan Amado MD [address] [place] [address] 06/24/13 documented as of this encounter
--- OUTSIDE RECORDS SUMMARY | 2024-10-17 03:05 | XMS_ITS | Encounter Summary ---
Author Organization [facility] Address [address] [facility] [place] [address] Care Team Providers Care Spiritual Advisor Name Role Phone Jonathan Amado MD Unavailable [phone] Jonathan Amado MD Primary Care Provider [phone] Encounter Details Date Type Department Care Team (Latest Contact Info) Description 05/25/2024 3:40 PM CDT Clinical Support [facility] [address] [place] [phone] Allergic rhinitis due to pollen, unspecified [...] Progress Notes * Niru Valera MA - 05/25/2024 3:19 PM CDT This person is taking [...] arm SQ- ar 05/2505/25/2024 0.25 0.25 0.00 Physician in office: Dr. Werner MD Diagnosis: j30.1 Allergic rhinitis Epipen exp 12/2024 Department of Otolaryngology Head and Neck Surgery Patient Name: Pina Reynaga : 1970 Date: 05/25/2024 1. Did you bring your Epi-pen with [...] have a temperature >101? no Injection time: 1529 Site: Left Upper Arm SQ Vial Contents [...] st Contact Info) Description 10/19/2024 3:40 PM TELECOMMUNICATION EQUIPMENT REPAIRER Clinical Support [facility] [address] [place] [phone] 10/26/2024 3:20 PM TELECOMMUNICATION EQUIPMENT REPAIRER Clinical Support [facility] [address] [place] [phone] 11/02/2024 3:40 PM TELECOMMUNICATION EQUIPMENT REPAIRER Clinical Support [facility] [address] [place] [phone] 11/09/2024 3:20 PM TELECOMMUNICATION EQUIPMENT REPAIRER Clinical Support [facility] [address] [place] [phone] documented as of this encounter Visit Diagnoses Diagnosis Allergic rhinitis due to pollen, unspecified seasonality- Primary documented in this encounter Care Teams Spiritual Advisor Relationship Specialty Start Date End Date Jonathan Amado MD [address] [place] [phone] PCP - General Family Medicine 09/15/23 Jonathan Amado MD [address] [place] [phone] 06/24/13 documented as of this encounter
--- OUTSIDE RECORDS SUMMARY | 2024-10-17 03:05 | XMS_ITS | Encounter Summary ---
Author Organization [facility] Address [facility] [facility] [place] [address] Care Team Providers Care Ladle Liner Name Role Phone Jonathan Amado MD Unavailable [phone] Jonathan Amado MD Primary Care Provider [phone] Encounter Details Date Type Department Care Team (Latest Contact Info) Description 09/07/2024 Travel Social History Tobacco Use Types Packs/Day [...] st Contact Info) Description 10/19/2024 3:40 PM SATELLITE TV TECHNICIAN Clinical Support [facility] [address] [place] [phone] 10/26/2024 3:20 PM SATELLITE TV TECHNICIAN Clinical Support [facility] [address] [place] [phone] 11/02/2024 3:40 PM SATELLITE TV TECHNICIAN Clinical Support [facility] [address] [place] [phone] 11/09/2024 3:20 PM SATELLITE TV TECHNICIAN Clinical Support [facility] [address] [place] [phone] documented as of this encounter Visit Diagnoses Not on filedocumented in this encounter Care Teams Ladle Liner Relationship Specialty Start Date End Date Jonathan Amado MD [address] [place] [phone] PCP - General Family Medicine 09/15/23 Jonathan Amado MD [address] [place] [address] 06/24/13 documented as of this encounter
--- OUTSIDE RECORDS SUMMARY | 2024-10-17 03:05 | XMS_ITS | Encounter Summary ---
Author Organization [facility] Address [address] [facility] [place] [address] Care Team Providers Care Data Center Consultant Name Role Phone Jonathan Amado MD Unavailable [phone] Jonathan Amado MD Primary Care Provider [phone] Reason for Visit * Reason Comments Immunotherapy Allergy shot Encounter Details Date Type Department Care Team (Latest Contact Info) Description 03/09/2024 3:20 PM CDT Clinical Support [facility] [address] [place] [phone] Seasonal allergic rhinitis due to pollen [...] encounter Progress Notes * Ryanne Amaya - 03/09/2024 3:16 PM CDT This person is taking immunotherapy for previously diagnosed allergic rhinitis. Serum calculations have been reviewed by Dr. Arellano on 01/29/2024 . Allergy Individual Dosing Allergy extracts mixed: 02/19/2024 and 6 months after date mixed. date weed mix mold Phenol saline Vial in series verified with Signature & location 03/09/2024 0.05 0.25 0.20 pt Right upper arm SQ-ls 03/16/2024 0.07 0.25 0.18 03/23/2024 0.10 0.25 0.15 03/30/2024 0.12 0.25 0.13 04/06/2024 0.15 0.25 0.10 04/13/2024 0.17 0.25 0.08 04/20/2024 0.20 0.25 0.05 04/27/2024 0.22 0.25 0.03 05/04/2024 0.25 0.25 0.00 05/11/2024 0.25 0.25 0.00 05/18/2024 0.25 0.25 0.00 05/25/2024 0.25 0.25 0.00 Physician in office: Houston Pantoja MD Diagnosis: j30.1 Allergic rhinitis Epipen exp 12/2024 Department of Otolaryngology Head and Neck Surgery Patient Name: Pina Reynaga : 1970 Date: 03/09/2024 1. Did you bring your Epi-pen with you to clinic today? Yes 2. How are you feeling today? fine 3. How have you been feeling since your last shot? Fine. A. What symptoms do you have?none B. When do you have these symptoms? [...] temperature >101? no Injection time: 1520 Site: Right Upper Arm SQ Vial Contents [...] st Contact Info) Description 10/19/2024 3:40 PM MOLD FILLER Clinical Support [facility] [address] [place] [phone] 10/26/2024 3:20 PM MOLD FILLER Clinical Support [facility] [address] [place] [phone] 11/02/2024 3:40 PM MOLD FILLER Clinical Support [facility] [address] [place] [phone] 11/09/2024 3:20 PM MOLD FILLER Clinical Support [facility] [address] [place] [phone] documented as of this encounter Visit Diagnoses Diagnosis Seasonal allergic rhinitis due to pollen- Primary documented in this encounter Care Teams Data Center Consultant Relationship Specialty Start Date End Date Jonathan Amado MD [address] [place] [phone] PCP - General Family Medicine 09/15/23 Jonathan Amado MD [facility] [place] [address] 06/24/13 documented as of this encounter
--- OUTSIDE RECORDS SUMMARY | 2024-10-17 03:05 | XMS_ITS | Encounter Summary ---
Author Organization [facility] Address [facility] [facility] [place] [address] Care Team Providers Care Combatant Diver Officer Name Role Phone Jonathan Amado MD Unavailable [phone] Jonathan Amado MD Primary Care Provider [phone] Encounter Details Date Type Department Care Team (Latest Contact Info) Description 05/12/2024 Travel Social History Tobacco Use Types Packs/Day [...] st Contact Info) Description 10/19/2024 3:40 PM SENIOR MATERIALS SCIENTIST Clinical Support [facility] [address] [place] [phone] 10/26/2024 3:20 PM SENIOR MATERIALS SCIENTIST Clinical Support [facility] [address] [place] [phone] 11/02/2024 3:40 PM SENIOR MATERIALS SCIENTIST Clinical Support [facility] [address] [place] [phone] 11/09/2024 3:20 PM SENIOR MATERIALS SCIENTIST Clinical Support [facility] [address] [place] [phone] documented as of this encounter Visit Diagnoses Not on filedocumented in this encounter Care Teams Combatant Diver Officer Relationship Specialty Start Date End Date Jonathan Amado MD [address] [place] [phone] PCP - General Family Medicine 09/15/23 Jonathan Amado MD [address] [place] [phone] 06/24/13 documented as of this encounter
--- OUTSIDE RECORDS SUMMARY | 2024-10-17 03:05 | XMS_ITS | Encounter Summary ---
Author Organization [facility] Address [facility] [facility] [place] [address] Care Team Providers Care Designer Writer Name Role Phone Jonathan Amado MD Unavailable [phone] Jonathan Amado MD Primary Care Provider [phone] Encounter Details Date Type Department Care Team (Latest Contact Info) Description 03/09/2024 Travel Social History Tobacco Use Types Packs/Day [...] st Contact Info) Description 10/19/2024 3:40 PM ADJUNCT INSTRUCTOR IN ECONOMICS Clinical Support [facility] [address] [place] [phone] 10/26/2024 3:20 PM ADJUNCT INSTRUCTOR IN ECONOMICS Clinical Support [facility] [address] [place] [phone] 11/02/2024 3:40 PM ADJUNCT INSTRUCTOR IN ECONOMICS Clinical Support [facility] [address] [place] [phone] 11/09/2024 3:20 PM ADJUNCT INSTRUCTOR IN ECONOMICS Clinical Support [facility] [address] [place] [phone] documented as of this encounter Visit Diagnoses Not on filedocumented in this encounter Care Teams Designer Writer Relationship Specialty Start Date End Date Jonathan Amado MD [address] [place] [phone] PCP - General Family Medicine 09/15/23 Jonathan Amado MD [address] [place] [phone] 06/24/13 documented as of this encounter
--- OUTSIDE RECORDS SUMMARY | 2024-10-17 03:05 | XMS_ITS | Encounter Summary ---
Author Organization [facility] Address [facility] [place] [address] Care Team Providers Care Car Repairer Apprentice Name Role Phone Jonathan Amado MD Unavailable [phone] Jonathan Amado MD Primary Care Provider [phone] Reason for Visit * Reason Comments Allergy Symptoms allergy check Encounter Details Date Type Department Care Team (Late st Contact Info) Description 07/06/2024 3:00 PM CDT Office Visit [facility] - ENT [address] [place] [phone] Grupo Brice MD [address] [place] [address] DEPT OF OTOLARYNGOLOGY [place], [place] [id number] Allergic rhinitis due to pollen, unspecified seasonality (Primary Dx) Social History Tobacco Use Types Packs/Day Years Used Date Smoking Tobacco: Never Smokeless Tobacco: Never Alcohol Use Standard Drinks/Week Comments No 0 (1 standard drink = 0.6 oz pur e alcohol) Sex and Gender Information Value Date Recorded Sex Assigned at Not on file Gender Identity Not on file Sexual Orientation Not on file documented as of this encounter Last Filed Vital Signs Vital Sign Reading Time Taken Comments Blood Pressure 106/75 07/06/2024 3:18 PM CDT Pulse 72 07/06/2024 3:18 PM CDT Temperature - - Respiratory Rate - - Oxygen Saturation - - Inhaled Oxygen Concentration - - Weight 72 kg (158 lb 12.8 oz) 07/06/2024 3:18 PM CDT Height 162.6 cm (5' 4 ) 07/06/2024 3:18 PM CDT Body Mass Index 27.26 07/06/2024 3:18 PM CDT documented in this encounter Patient Instructions * Patient Instructions* Alexa Loco MA - 07/06/2024 3:17 PM CDT Thank you for visiting [facility] - [facility]. We appreciate your confidence in allowing us to participate in your health care. You may receive a survey about your visit with us today. Making our patients happy isn???t just happy talk; it???s ourmission. Please tell us if we made the right impression on you- and how we can serve you better. Please SAVE the information below, it will assist you when it???s time for you to contact us. To MAKE - CHANGE - CANCEL an office appointment If you become ill, need to be seen before your next scheduled appointment, or need to cancel or reschedule an appointment, please call our office at [phone] Friday through Friday from 8:30 am to4:30 pm. You can also request a routine appointment through your [employer] account. Prescription Refills Contact your pharmacy to request all refills. The pharmacy will need to fax the request to us at Please allow a minimum of 48-72 hours for your prescription to be completed. Your pharmacy will notify you when your prescription is ready to be picked up. Medical Emergency / After Hours Contact Information If you have a medical emergency, please call 911 or go to the nearest emergency room. For urgent medical calls, which cannot wait until the office opens, please call the medical exchange at and ask the byproducts pump operator to page the ENT physician airways operations specialist. *Caller ID blocking service will need to be turned off for your call to be returned. We also specialize in Hearing Aids, Allergy testing, swallowing disorders, voice problems, cancer diagnosis, and so much more. Visit our website at [email or web address] for information about our practice and an interactive health encyclopedia. documented in this encounter Progress Notes * Grupo Brice MD - 07/06/2024 4:58 PM CDT History of Present Illness: 53 year old with a h/o chronic hyperplastic rhinosinusitis s/p sinus surgeries who presents for evaluation of allergies. Last seen on 04/14/23 when nasal endoscopy showed no evidence of paranasal sinus disease. Has currently been on immunotherapy for the last 8 months. Presents today because she has had this occasional nasal sniffing and ongoing evaluation with regards to immunotherapy. She is also seeing a neurologist and a psychiatrist. She reports that she was bullied at the workplace and quit working. Past Medical History Past Medical History: Diagnosis Date Cervical disc disease Chronic interstitial cystitis Disorder of maxillary sinus Migraine PSH: has a past surgical history that includes tonsillectomy; ovarian cyst removal; hysterectomy; bladder procedure/surgery; sinus surgery; cholecystectomy, laparoscopic; and hysterectomy. Medications Current Outpatient Medications Medication Sig Dispense Refill azelastine (Astepro) 205.5 MCG/SPRAY nasal spray [place] 2 (two) sprays into each nostril 2 times daily 90 mL 4 Budesonide Add 1 capsule of 0.5mg or 0.6mg to 240ml saline (patient may mix own saline). Irrigate half in each nostril twice daily. 60 capsule 11 cetirizine (ZYRTEC) 10 MG tablet Take 1 (one) tablet by mouth once daily ergocalciferol (DRISDOL) 1.25 MG (84997 UT) capsule Take 1 (one) capsule by mouth every 30 days estradiol (Estrace) 0.1 MG/GM vaginal cream Insert 2 g into the vagina Two times a week (Patient not taking: Reported on 07/22/2023) fluticasone propionate (FLONASE) 50 MCG/ACT nasal spray [place] 2 (two) sprays into each nostril oncedaily hydroxychloroquine (PLAQUENIL) 200 MG tablet Take 400 mg by mouth once daily (Patient not taking: Reported on 01/28/2023) Ondansetron HCl (ZOFRAN PO) Take 1 tablet by mouth as needed Pseudoephedrine HCl (SUDAFED PO) Take 1 tablet by mouth as needed No current facility-administered medications for this visit. Allergies Contrast [contrast-iodinated agents for ct/other]; Contrast-iodinated agents for ct/other; Doxycycline; Morphine; Sulfa drugs; Ciprofloxacin; Gabapentin; Septra [sulfamethoxazole w-trimethoprim]; Ciprofloxacin; Levaquin; Ambrosia artemisiifolia, ragweed; and Compazine syrup Social History Tobacco Use Smoking status: Never Smokeless tobacco: Never Substance Use Topics Alcohol use: No Drug use: No Family History Family History Problem Relation Name Age of Onset Psoriasis Mother Status: Alive Arthritis - Osteo Mother Cspine Hypertension Father Status: Alive None Known Brother BP 131/88 Pulse 87 Ht 1.626 m (5' 4 ) Wt 73.8 kg (162 lb 12.8 oz) Physical Exam: Constitutional: Alert, No acute Distress; Well developed/well nourished Neuro:cranial nerves III-XII grossly intact CV/Pulm: Normal respirations and peripheral pulses. Eyes: PERRL, EOMI Face/Skin: normal appearance, no lesions/masses Ears: Right Ear: Mastoid and tragus non-tender, pinna WNL without lesion, EAC clear, TM intact, middle ear space aerated Left Ear: Mastoid non-tender and tragus, pinna WNL without lesion, EAC clear, TM intact, middle earspace aerated Nose: patent bilaterally,Turbinates intact, Mucosal membranes intact with allergic edematous appearence, septum is midline externally. Unable to visualize posteriorly so proceded with endoscopy. See note below. Mouth and oropharynx: symmetric tongue mobility, no lesions/masses/ulcers Neck: supple, no lymphadenopathy, no masses Voice: strong MusculoSkeletal: moves all extremities well Procedure Note Endoscopy Type: Nasal Endoscopy without debridement Anesthesia: Lidocaine 2% and Rashid-Synephrine 1/2% Procedure Details: After topical anesthesia and decongestion, the patient was placed in the sitting position. The flexible laryngoscope was passed along the left nasal floor to the nasopharynx. It was then passed into the region of the middlemeatus, middle turbinate, and the sphenoethmoid region. An identical procedure was performed on the right side. The following findings were noted as stated below: Findings: All paranasal sinus cavities are clear without evidence of edema swelling or infection. Maxillary sinuses are open and looking the floor the maxillary sinuses there is no accumulated fluid or infection. No polyps or purulence. Condition: Stable. Patient tolerated procedure well. Complications: None Dr. Brice was present for the entirety of the procedure. Assessment and Plan: 54-year-old with chronic hyperplastic rhinosinusitis status post multiple sinus surgeries in the past. She has severe hypersensitivity to mold which causes significant problems with breathing and sinus disease. Some of her recent symptoms are likely related to allergies but for the most part her endoscopic valuation is unremarkable no intervention is indicated. She will continue with her allergy shots that she feels this is providing her benefit. I explained that she can do salt water irrigations on an as-needed basis. Follow-up in 6 months for repeat nasal endoscopy to assure that she is not having any developing sinus disease. 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 She reports that she had a bullying incident in the workplace. She says she has seen a neurologist and a psychiatrist but neither she nor her was able to provide a satisfactory explanation why there is been such a precipitous change in her personality. We will attempt to find the records from her neurology visit and psychiatry visit. documented in this encounter Plan of Treatment Upcoming Encounters Date Type Department Care Team (Late st Contact Info) Description 10/19/2024 3:40 PM CIVIL DESIGN SPECIALIST Clinical Support [facility] [address] [place] [phone] 10/26/2024 3:20 PM CIVIL DESIGN SPECIALIST Clinical Support [facility] [address] [place] [phone] 11/02/2024 3:40 PM CIVIL DESIGN SPECIALIST Clinical Support [facility] [address] [place] [phone] 11/09/2024 3:20 PM CIVIL DESIGN SPECIALIST Clinical Support [facility] [address] [place] [phone] documented as of this encounter Visit Diagnoses Diagnosis Allergic rhinitis due to pollen, unspecified seasonality- Primary documented in this encounter Care Teams Car Repairer Apprentice Relationship Specialty Start Date End Date Jonathan Amado MD [address] [place] [phone] PCP - General Family Medicine 09/15/23 Jonathan Amado MD [address] [place] [phone] 06/24/13 documented as of this encounter
--- OUTSIDE RECORDS SUMMARY | 2024-10-17 03:05 | XMS_ITS | Encounter Summary ---
Author Organization [facility] Address [employer] [facility] [facility] [place] [address] Care Team Providers Care Sheet Metal Fabricator Name Role Phone Jonathan Amado MD Unavailable [phone] Jonathan Amado MD Primary Care Provider [phone] Encounter Details Date Type Department Care Team (Latest Contact Info) Description 07/20/2024 Travel Social History Tobacco Use Types Packs/Day [...] st Contact Info) Description 10/19/2024 3:40 PM KITCHEN OPERATOR Clinical Support [facility] [address] [place] [phone] 10/26/2024 3:20 PM KITCHEN OPERATOR Clinical Support [facility] [address] [place] [phone] 11/02/2024 3:40 PM KITCHEN OPERATOR Clinical Support [facility] [address] [place] [phone] 11/09/2024 3:20 PM KITCHEN OPERATOR Clinical Support [facility] [address] [place] [phone] documented as of this encounter Visit Diagnoses Not on filedocumented in this encounter Care Teams Sheet Metal Fabricator Relationship Specialty Start Date End Date Jonathan Amado MD [address] [place] [phone] PCP - General Family Medicine 09/15/23 Jonathan Amado MD [address] [place] [phone] 06/24/13 documented as of this encounter
--- OUTSIDE RECORDS SUMMARY | 2024-10-17 03:05 | XMS_ITS | Encounter Summary ---
Author Organization [facility] Address [facility] [facility] [place] [address] Care Team Providers Care Lens Finisher Name Role Phone Jonathan Amado MD Unavailable [phone] Jonathan Amado MD Primary Care Provider [phone] Encounter Details Date Type Department Care Team (Latest Contact Info) Description 04/28/2024 Travel Social History Tobacco Use Types Packs/Day [...] st Contact Info) Description 10/19/2024 3:40 PM DENTAL CERAMIST Clinical Support [facility] [address] [place] [phone] 10/26/2024 3:20 PM DENTAL CERAMIST Clinical Support [facility] [address] [place] [phone] 11/02/2024 3:40 PM DENTAL CERAMIST Clinical Support [facility] [address] [place] [phone] 11/09/2024 3:20 PM DENTAL CERAMIST Clinical Support [facility] [address] [place] [phone] documented as of this encounter Visit Diagnoses Not on filedocumented in this encounter Care Teams Lens Finisher Relationship Specialty Start Date End Date Jonathan Amado MD [address] [place] [phone] PCP - General Family Medicine 09/15/23 Jonathan Amado MD [address] [place] [phone] 06/24/13 documented as of this encounter
--- OUTSIDE RECORDS SUMMARY | 2024-10-17 03:06 | XMS_ITS | Encounter Summary ---
Author Organization [facility] Address [facility] [facility] [address] Care Team Providers Care Optical Store Manager Name Role Phone Jonathan Amado MD Unavailable [phone] Jonathan Amado MD Primary Care Provider [phone] Encounter Details Date Type Department Care Team (Latest Contact Info) Description 12/16/2023 Travel Social History Tobacco Use Types Packs/Day [...] st Contact Info) Description 10/19/2024 3:40 PM SALES REPRESENTATIVE PRINTING SUPPLIES Clinical Support [facility] [address] [place] [phone] 10/26/2024 3:20 PM SALES REPRESENTATIVE PRINTING SUPPLIES Clinical Support [facility] [address] [place] [phone] 11/02/2024 3:40 PM SALES REPRESENTATIVE PRINTING SUPPLIES Clinical Support [facility] [address] [place] [phone] 11/09/2024 3:20 PM SALES REPRESENTATIVE PRINTING SUPPLIES Clinical Support [facility] [address] [place] [phone] documented as of this encounter Visit Diagnoses Not on filedocumented in this encounter Care Teams Optical Store Manager Relationship Specialty Start Date End Date Jonathan Amado MD [address] [place] [phone] PCP - General Family Medicine 09/15/23 Jonathan Amado MD [address] [place] [phone] 06/24/13 documented as of this encounter
--- OUTSIDE RECORDS SUMMARY | 2024-10-17 03:06 | XMS_ITS | Encounter Summary ---
Author Organization [facility] Address [address] [place] [address] Care Team Providers Care Supervisor Beet End Name Role Phone Jonathan Amado MD Unavailable Jonathan Amado MD Primary Care Provider [phone]- [phone] Reason for Visit * Reason Comments Immunotherapy Allergy shot Encounter Details Date Type Department Care Team (Latest Contact Info) Description 02/17/2024 3:40 PM CDT Clinical Support [facility] [address] [place] [phone] Seasonal allergic rhinitis due to pollen Social [...] encounter Progress Notes * Ryanne Amaya - 02/17/2024 3:23 PM CDT This person is taking immunotherapy for previously diagnosed allergic rhinitis. Serum calculations have been reviewed by Dr. Arellano on 11/27/2023 . Allergy Individual Dosing Allergy extracts mixed: 12/02/2023 and 6 months after date mixed. date [place] mix mold Phenol saline Vial in series verified with Signature & location 12/16/2023 0.05 0.25 0.20 12/16/23 right upper arm SQ -am 12/23/2023 0.07 0.25 0.18 pt Rt upper arm SQ-ls 12/30/2023 0.10 0.25 0.15 pt Right upper arm SQ- ar 01/06/2024 0.12 0.25 0.13 pt Right upper arm SQ-ls 01/13/2024 0.15 0.25 0.10 pt Right upper arm SQ- ar 01/20/2024 0.17 0.25 0.08 pt Right upper arm SQ-ls 01/27/2024 0.20 0.25 0.05 pt Right upper arm SQ-ls 02/03/2024 0.22 0.25 0.03 pt Right upper arm SQ-ls 02/10/2024 0.25 0.25 0.00 pt Right upper arm SQ-ls 02/17/2024 0.25 0.25 0.00 pt Left upper arm SQ-ls 02/24/2024 0.25 0.25 0.00 03/02/2024 0.25 0.25 0.00 Physician in office: Houston Pantoja MD Diagnosis: j30.1 Allergic rhinitis Epipen exp 12/2024 Department of Otolaryngology Head and Neck Surgery Patient Name: Pina Reynaga : 1970 Date: 02/17/2024 1. Did you bring your Epi-pen with you to clinic today? Yes 2. How are you feeling today? fine 3. How have you been feeling since your last shot? Fine. A. What symptoms do you have? sneezing B. When do you have these symptoms? Past couple weeks C. Are your symptoms mild, [...] a temperature >101? no Injection time: 1525 Site:left Upper Arm SQ Vial Contents diluted with 0.5ml Normal Saline: No Reaction: none Action taken: benadryl cream applied at injection site when above noticed. Suggested take extra dose oral antihistamine this [...] st Contact Info) Description 10/19/2024 3:40 PM COAL CRUSHER OPERATOR Clinical Support [facility] [address] [place] [phone] 10/26/2024 3:20 PM COAL CRUSHER OPERATOR Clinical Support [facility] [address] [place] [phone] 11/02/2024 3:40 PM COAL CRUSHER OPERATOR Clinical Support [facility] [address] [place] [phone] 11/09/2024 3:20 PM COAL CRUSHER OPERATOR Clinical Support [facility] - [facility] [address] [place] [phone] documented as of this encounter Visit Diagnoses Diagnosis Seasonal allergic rhinitis due to pollen- Primary documented in this encounter Care Teams Supervisor Beet End Relationship Specialty Start Date End Date Jonathan Amado MD [address] [place] [phone] PCP - General Family Medicine 09/15/23 Jonathan Amado MD [address] [place] [phone] 06/24/13 documented as of this encounter
--- OUTSIDE RECORDS SUMMARY | 2024-10-17 03:06 | XMS_ITS | Encounter Summary ---
Author Organization [facility] Address [address] [facility] [place] [address] Care Team Providers Care Denitrator Operator Name Role Phone Jonathan Amado MD Unavailable [phone] Jonathan Amado MD Primary Care Provider [phone] Reason for Visit * Reason Comments Immunotherapy Allergy shot Encounter Details Date Type Department Care Team (Latest Contact Info) Description 03/02/2024 3:20 PM CDT Clinical Support [facility] [address] [place] [phone] Seasonal allergic rhinitis due to pollen [...] encounter Progress Notes * Ryanne Amaya - 03/02/2024 3:22 PM CDT This person is taking immunotherapy for previously diagnosed allergic rhinitis. Serum calculations have been reviewed by Dr. Arellano on 11/27/2023 . Allergy Individual Dosing Allergy extracts mixed: 12/02/2023 and 6 months after date mixed. date [place] mix mold Phenol saline Vial in series [...] upper arm SQ-ls 02/24/2024 0.25 0.25 0.00 pt Right upper arm SQ- ar 03/02/2024 0.25 0.25 0.00 pt Right upper arm SQ-ls Physician in office: Houston Pantoja MD Diagnosis: j30.1 Allergic rhinitis Epipen exp 12/2024 Department of Otolaryngology Head and Neck Surgery Patient Name: Pina Reynaga : 1970 Date: 03/02/2024 1. Did you bring your Epi-pen with [...] temperature >101? no Injection time: 1526 Site: Right Upper Arm SQ Vial Contents [...] st Contact Info) Description 10/19/2024 3:40 PM TECHNOLOGY EDUCATION INSTRUCTOR Clinical Support [facility] [address] [place] [phone] 10/26/2024 3:20 PM TECHNOLOGY EDUCATION INSTRUCTOR Clinical Support [facility] [address] [place] [phone] 11/02/2024 3:40 PM TECHNOLOGY EDUCATION INSTRUCTOR Clinical Support [facility] [address] [place] [phone] 11/09/2024 3:20 PM TECHNOLOGY EDUCATION INSTRUCTOR Clinical Support [facility] [address] [place] [phone] documented as of this encounter Visit Diagnoses Diagnosis Seasonal allergic rhinitis due to pollen- Primary documented in this encounter Care Teams Denitrator Operator Relationship Specialty Start Date End Date Jonathan Amado MD [address] [place] [phone] PCP - General Family Medicine 09/15/23 Jonathan Amado MD [address] [place] [phone] 06/24/13 documented as of this encounter
--- OUTSIDE RECORDS SUMMARY | 2024-10-17 03:06 | XMS_ITS | Encounter Summary ---
Author Organization [facility] Address [facility] [facility] [place] [address] Care Team Providers Care Church Organist Name Role Phone Jonathan Amado MD Unavailable [phone] Jonathan Amado MD Primary Care Provider [phone] Encounter Details Date Type Department Care Team (Latest Contact Info) Description 02/17/2024 Travel Social History Tobacco Use Types Packs/Day [...] st Contact Info) Description 10/19/2024 3:40 PM BYPRODUCTS OPERATOR Clinical Support [facility] [address] [place] [phone] 10/26/2024 3:20 PM BYPRODUCTS OPERATOR Clinical Support [facility] [address] [place] [phone] 11/02/2024 3:40 PM BYPRODUCTS OPERATOR Clinical Support [facility] [address] [place] [phone] 11/09/2024 3:20 PM BYPRODUCTS OPERATOR Clinical Support [facility] [address] [place] [phone] documented as of this encounter Visit Diagnoses Not on filedocumented in this encounter Care Teams Church Organist Relationship Specialty Start Date End Date Jonathan Amado MD [address] [place] [phone] PCP - General Family Medicine 09/15/23 Jonathan Amado MD [address] [place] [phone] 06/24/13 documented as of this encounter
--- OUTSIDE RECORDS SUMMARY | 2024-10-17 03:06 | XMS_ITS | Encounter Summary ---
Author Organization [facility] Address [address] [facility] [place] [address] Care Team Providers Care Marketing And Promotions Manager Name Role Phone Jonathan Amado MD Unavailable [phone] Jonathan Amado MD Primary Care Provider [phone] Encounter Details Date Type Department Care Team (Latest Contact Info) Description 01/13/2024 3:40 PM CDT Clinical Support [facility] [address] [place] [phone] Allergic rhinitis due to pollen, unspecified [...] Progress Notes * Niru Valera MA - 01/13/2024 3:47 PM CDT This person is taking immunotherapy for previously diagnosed allergic rhinitis. Serum calculations have been reviewed by Dr. Arellano on 11/27/2023 . Allergy Individual Dosing Allergy extracts mixed: 12/02/2023 and 6 months after date mixed. date [place] mix mold Phenol saline Vial in series [...] arm SQ- ar 01/20/2024 0.17 0.25 0.08 01/27/2024 0.20 0.25 0.05 02/03/2024 0.22 0.25 0.03 02/10/2024 0.25 0.25 0.00 02/17/2024 0.25 0.25 0.00 02/24/2024 0.25 0.25 0.00 03/02/2024 0.25 0.25 0.00 Physician in office: Houston Pantoja MD Diagnosis: j30.1 Allergic rhinitis Epipen exp 12/2024 Department of Otolaryngology Head and Neck Surgery Patient Name: Pina Reynaga : 1970 Date: 01/13/2024 1. Did you bring your Epi-pen with you to clinic today? Yes 2. How are you feeling today? fine 3. How have you been feeling since your last shot? Fine. There was a small bump on her arm after she cut grass on Friday and it ended up going way the next morning. A. What symptoms do you have? Denies allergy symptoms today B. When do you have these symptoms? n/a C. Are your symptoms mild, moderate or severe? n/a 4. How has your asthma been? I don't think I have it A. Is your asthma controlled or uncontrolled? Controlled B. Have you had any recent attacks? No 5. Are you having trouble breathing today? No 6. Have you had any problems with angioedema? No 7. Any local reactions from your last shot? denies 8. Are you on any beta margy antihypertensives? No 9. Have you taken any antihistamines since your last visit? Day of shot 10. Do you have a temperature >101? no Injection time: 1548 Site: left Upper Arm SQ Vial Contents diluted with 0.5ml Normal Saline: No Reaction: Redness and 5 mm wheal at injection site Action taken: benadryl cream applied at injection site when above noticed. Suggested take extra dose oral antihistamine this evening. Reviewed treatment for local reaction including call office for reaction > 2 inches. Reviewed use epi-pen for signs of anaphylaxis, and call 911. Pt & spouse acknowledge understanding. 1608 Time ambulatory from clinic in no distress, color pink, respiratory unlabored, steady on feet,voices no complaints. Spouse with pt. documented in this encounter Plan of Treatment Upcoming Encounters Date Type Department Care Team (Late st Contact Info) Description 10/19/2024 3:40 PM BURGLAR ALARM OPERATOR Clinical Support [facility] [address] [place] [phone] 10/26/2024 3:20 PM BURGLAR ALARM OPERATOR Clinical Support [facility] [address] [place] [phone] 11/02/2024 3:40 PM BURGLAR ALARM OPERATOR Clinical Support [facility] [address] [place] [phone] 11/09/2024 3:20 PM BURGLAR ALARM OPERATOR Clinical Support [facility] [address] [place] [phone] documented as of this encounter Visit Diagnoses Diagnosis Allergic rhinitis due to pollen, unspecified seasonality- Primary documented in this encounter Care Teams Marketing And Promotions Manager Relationship Specialty Start Date End Date Jonathan Amado MD [facility] [place] [address] PCP - General Family Medicine 09/15/23 Jonathan Amado MD [facility] [place] [phone] 06/24/13 documented as of this encounter
--- OUTSIDE RECORDS SUMMARY | 2024-10-17 03:06 | XMS_ITS | Encounter Summary ---
Author Organization [facility] Address [address] [facility] [place] [address] Care Team Providers Care Enchilada Maker Name Role Phone Jonathan Amado MD Unavailable [phone] Jonathan Amado MD Primary Care Provider [phone] Reason for Visit * Reason Comments Immunotherapy Encounter Details Date Type Department Care Team (Latest Contact Info) Description 11/18/2023 3:40 PM RN BEHAVIORAL HEALTH Clinical Support [facility] [address] [place] [phone] Allergic rhinitis due to pollen, unspecified [...] as of this encounter Progress Notes * Ai Lomeli, RN - 11/18/2023 3:33 PM CST This person is taking immunotherapy for previously diagnosed allergic rhinitis J30.1. Serum calculations have been reviewed by Dr. Ventura on 09/15/2023. . Allergy Individual Dosing Allergy extracts mixed: 09/24/2023 and 6 months after date mixed. date [place] mix Mold mix Phenol saline Vial in series verified with Signature and location 09/30/2023 0.05 0.05 0.40 pt Right upper arm SQ-ar 10/07/2023 0.07 0.10 0.35 pt Right upper arm SQ-ls 10/14/2023 0.10 0.15 0.30 pt Right upper arm SQ-ls 10/21/2023 0.12 0.20 0.25 Right upper arem SQ-sb 10/28/2023 0.15 0.25 0.20 Right upper arm SQ-sb 11/04/2022 0.17 0.25 0.15 Right upper arm SQ -am 11/11/2022 0.20 0.25 0.10 Right upper arm SQ -am 11/18/2022 0.22 0.25 0.05 Right upper arm SQ -am 11/25/2022 0.25 0.25 0.00 12/02/2022 0.25 0.25 0.00 12/09/2022 0.25 0.25 0.00 Epipen exp 12/2024 Physician in office: Dr. Brice Department of Otolaryngology Head and Neck Surgery Patient Name: Pina Reynaga : 1970 Date: 11/18/2023 1. Did you bring your Epi-pen with you to clinic today? Yes 2. How are you feeling today? fine 3. How have you been feeling since your last shot? Fine. Slow to answer most questions; spouse answers for pt. A. What symptoms do you have? Denies [...] taken any antihistamines since your last visit? today 10. Do you have a temperature >101? no Injection time: 1538 Site: Right Upper Arm SQ Vial Contents diluted with 0.5ml Normal Saline: No Reaction: none Action taken: benadryl cream applied at injection site. Reviewed treatment for local reaction including call office for reaction > 2 inches. Reviewed use epi-pen for signs of anaphylaxis, and call 911. Pt & spouse acknowledge understanding. 1555 Time ambulatory from clinic in no distress, color pink, respiratory unlabored, steady on feet,voices no complaints. Spouse with pt. BEHAVIORAL HEALTH documented in this encounter Plan of Treatment Upcoming Encounters Date Type Department Care Team (Late st Contact Info) Description 10/19/2024 3:40 PM RN BEHAVIORAL HEALTH Clinical Support [facility] [address] [place] [phone] 10/26/2024 3:20 PM RN BEHAVIORAL HEALTH Clinical Support [facility] [address] [place] [phone] 11/02/2024 3:40 PM RN BEHAVIORAL HEALTH Clinical Support [facility] [address] [place] [phone] 11/09/2024 3:20 PM RN BEHAVIORAL HEALTH Clinical Support [facility] [address] [place] [phone] documented as of this encounter Visit Diagnoses Diagnosis Allergic rhinitis due to pollen, unspecified seasonality- Primary documented in this encounter Care Teams Enchilada Maker Relationship Specialty Start Date End Date Jonathan Amado MD [address] [place] [phone] PCP - General Family Medicine 09/15/23 Jonathan Amado MD [facility] [place] [address] 06/24/13 documented as of this encounter
--- OUTSIDE RECORDS SUMMARY | 2024-10-17 03:06 | XMS_ITS | Encounter Summary ---
Author Organization [facility] Address [address] [place] [address] Care Team Providers Care Powder Monkey Name Role Phone Jonathan Amado MD Unavailable [phone] Jonathan Amado MD Primary Care Provider [phone] Encounter Details Date Type Department Care Team (Latest Contact Info) Description 12/30/2023 3:40 PM CDT Clinical Support [facility] [address] [place] [phone] Allergic rhinitis due to pollen, unspecified [...] Progress Notes * Niru Valera MA - 12/30/2023 3:24 PM CDT This person is taking immunotherapy for previously diagnosed allergic rhinitis. Serum calculations have been reviewed by Dr. Arellano on 11/27/2023 . Allergy Individual Dosing Allergy extracts mixed: 12/02/2023 and 6 months after date mixed. date [place] mix mold Phenol saline Vial in series verified with Signature & location 12/16/2023 0.05 0.25 0.20 12/16/23 right upper arm SQ -am 12/23/2023 0.07 0.25 0.18 pt Rt upper arm SQ-ls 12/30/2023 0.10 0.25 0.15 pt Right upper arm SQ- ar 01/06/2024 0.12 0.25 0.13 01/13/2024 0.15 0.25 0.10 01/20/2024 0.17 0.25 0.08 01/27/2024 0.20 0.25 0.05 02/03/2024 0.22 0.25 0.03 02/10/2024 0.25 0.25 0.00 02/17/2024 0.25 0.25 0.00 02/24/2024 0.25 0.25 0.00 03/02/2024 0.25 0.25 0.00 Physician in office: Dr. Brice Diagnosis: j30.1 Allergic rhinitis Epipen exp 12/2024 Department of Otolaryngology Head and Neck Surgery Patient Name: Pina Reynaga : 1970 Date: 12/30/2023 1. Did you bring your Epi-pen with [...] temperature >101? no Injection time: 1528 Site: Right Upper Arm SQ Vial Contents [...] st Contact Info) Description 10/19/2024 3:40 PM CHAIRMAN Clinical Support [facility] [address] [place] [phone] 10/26/2024 3:20 PM CHAIRMAN Clinical Support [facility] [address] [place] [phone] 11/02/2024 3:40 PM CHAIRMAN Clinical Support [facility] [address] [place] [phone] 11/09/2024 3:20 PM CHAIRMAN Clinical Support [facility] [address] [place] [phone] documented as of this encounter Visit Diagnoses Diagnosis Allergic rhinitis due to pollen, unspecified seasonality- Primary documented in this encounter Care Teams Powder Monkey Relationship Specialty Start Date End Date Jonathan Amdao MD [facility] [place] [address] PCP - General Family Medicine 09/15/23 Jonathan Amado MD [facility] [place] [address] 06/24/13 documented as of this encounter
--- OUTSIDE RECORDS SUMMARY | 2024-10-17 03:06 | XMS_ITS | Encounter Summary ---
Author Organization [facility] Address [facility] [facility] [place] [address] Care Team Providers Care Environmental Health Aide Name Role Phone Jonathan Amado MD Unavailable [phone] Jonathan Amado MD Primary Care Provider [phone] Encounter Details Date Type Department Care Team (Latest Contact Info) Description 02/03/2024 Travel Social History Tobacco Use Types Packs/Day [...] st Contact Info) Description 10/19/2024 3:40 PM SAVE ALL OPERATOR Clinical Support [facility] [address] [place] [phone] 10/26/2024 3:20 PM SAVE ALL OPERATOR Clinical Support [facility] [address] [place] [phone] 11/02/2024 3:40 PM SAVE ALL OPERATOR Clinical Support [facility] [address] [place] [phone] 11/09/2024 3:20 PM SAVE ALL OPERATOR Clinical Support [facility] [address] [place] [phone] documented as of this encounter Visit Diagnoses Not on filedocumented in this encounter Care Teams Environmental Health Aide Relationship Specialty Start Date End Date Jonathan Amado MD [address] [place] [phone] PCP - General Family Medicine 09/15/23 Jonathan Amado MD [address] [place] [phone] 06/24/13 documented as of this encounter
--- OUTSIDE RECORDS SUMMARY | 2024-10-17 03:06 | XMS_ITS | Encounter Summary ---
Author Organization [facility] Address [facility] [facility] [place] [address] Care Team Providers Care Platen Press Operator Apprentice Name Role Phone Jonathan Amado MD Unavailable [phone] Jonathan Amado MD Primary Care Provider [phone] Encounter Details Date Type Department Care Team (Latest Contact Info) Description 03/02/2024 Travel Social History Tobacco Use Types Packs/Day [...] st Contact Info) Description 10/19/2024 3:40 PM BELT AND LINK ASSEMBLY SUPERVISOR Clinical Support [facility] [address] [place] [phone] 10/26/2024 3:20 PM BELT AND LINK ASSEMBLY SUPERVISOR Clinical Support [facility] [address] [place] [phone] 11/02/2024 3:40 PM BELT AND LINK ASSEMBLY SUPERVISOR Clinical Support [facility] [address] [place] [phone] 11/09/2024 3:20 PM BELT AND LINK ASSEMBLY SUPERVISOR Clinical Support [facility] [address] [place] [phone] documented as of this encounter Visit Diagnoses Not on filedocumented in this encounter Care Teams Platen Press Operator Apprentice Relationship Specialty Start Date End Date Jonathan Amado MD [address] [place] [phone] PCP - General Family Medicine 09/15/23 Jonathan Amado MD [address] [place] [phone] 06/24/13 documented as of this encounter
--- OUTSIDE RECORDS SUMMARY | 2024-10-17 03:06 | XMS_ITS | Encounter Summary ---
Author Organization [facility] Address [address] [place] [address] Care Team Providers Care Grainer Machine Name Role Phone Jonathan Amado MD Unavailable [phone] Jonathan Amado MD Primary Care Provider [phone] Reason for Visit * Reason Comments Immunotherapy Allergy shot Encounter Details Date Type Department Care Team (Latest Contact Info) Description 01/27/2024 3:20 PM CDT Clinical Support [facility] [address] [place] [phone] Seasonal allergic rhinitis due to pollen Social [...] encounter Progress Notes * Ryanne Amaya - 01/27/2024 3:08 PM CDT This person is taking immunotherapy for previously diagnosed allergic rhinitis. Serum calculations have been reviewed by Dr. Arellano on 11/27/2023 . Allergy Individual Dosing Allergy extracts mixed: 12/02/2023 and 6 months after date mixed. date [place] mix mold Phenol saline Vial in series [...] upper arm SQ-ls 02/03/2024 0.22 0.25 0.03 02/10/2024 0.25 0.25 0.00 02/17/2024 0.25 0.25 0.00 02/24/2024 0.25 0.25 0.00 03/02/2024 0.25 0.25 0.00 Physician in office: Houston Pantoja MD Diagnosis: j30.1 Allergic rhinitis Epipen exp 12/2024 Department of Otolaryngology Head and Neck Surgery Patient Name: Pina Reynaga : 1970 Date: 01/27/2024 1. Did you bring your Epi-pen with you to clinic today? Yes 2. How are you feeling today? fine 3. How have you been feeling since your last shot? Fine. A. What symptoms do you have? sneezing B. When do you have these symptoms? Worse past few days C. Are your symptoms mild, moderate [...] have a temperature >101? no Injection time: 1510 Site:righrt Upper Arm SQ Vial Contents diluted with [...] call 911. Pt & spouse acknowledge understanding. 1530Time ambulatory from clinic in no distress, color pink, respiratory unlabored, steady on feet, voices no complaints. Spouse with pt. documented in this encounter Plan of Treatment Upcoming Encounters Date Type Department Care Team (Late st Contact Info) Description 10/19/2024 3:40 PM PART TIME Clinical Support [facility] [address] [place] [phone] 10/26/2024 3:20 PM PART TIME Clinical Support [facility] [address] [place] [phone] 11/02/2024 3:40 PM PART TIME Clinical Support [facility] [address] [place] [phone] 11/09/2024 3:20 PM PART TIME Clinical Support [facility] [address] [place] [phone] documented as of this encounter Visit Diagnoses Diagnosis Seasonal allergic rhinitis due to pollen- Primary documented in this encounter Care Teams Grainer Machine Relationship Specialty Start Date End Date Jonathan Amado MD [facility] [place] [address] PCP - General Family Medicine 09/15/23 Jonathan Amado MD [facility] [place] [address] 06/24/13 documented as of this encounter
--- OUTSIDE RECORDS SUMMARY | 2024-10-17 03:06 | XMS_ITS | Encounter Summary ---
Author Organization [facility] Address [facility] [facility] [place] [address] Care Team Providers Care Forestry Tree Pruner Name Role Phone Jonathan Amado MD Unavailable [phone] Jonathan Amado MD Primary Care Provider [phone] Encounter Details Date Type Department Care Team (Latest Contact Info) Description 12/30/2023 Travel Social History Tobacco Use Types Packs/Day [...] st Contact Info) Description 10/19/2024 3:40 PM MANAGEMENT AIDE Clinical Support [facility] [address] [place] [phone] 10/26/2024 3:20 PM MANAGEMENT AIDE Clinical Support [facility] [address] [place] [phone] 11/02/2024 3:40 PM MANAGEMENT AIDE Clinical Support [facility] [address] [place] [phone] 11/09/2024 3:20 PM MANAGEMENT AIDE Clinical Support [facility] [address] [place] [phone] documented as of this encounter Visit Diagnoses Not on filedocumented in this encounter Care Teams Forestry Tree Pruner Relationship Specialty Start Date End Date Jonathan Amado MD [address] [place] [phone] PCP - General Family Medicine 09/15/23 Jonathan Amado MD [address] [place] [phone] 06/24/13 documented as of this encounter
--- OUTSIDE RECORDS SUMMARY | 2024-10-17 03:06 | XMS_ITS | Encounter Summary ---
Author Organization [facility] Address [facility] [facility] [address] Care Team Providers Care Payroll Auditor Name Role Phone Jonathan Amado MD Unavailable [phone] Jonathan Amado MD Primary Care Provider [phone] Encounter Details Date Type Department Care Team (Latest Contact Info) Description 11/25/2023 Travel Social History Tobacco Use Types Packs/Day [...] st Contact Info) Description 10/19/2024 3:40 PM FIRE OFFICER Clinical Support [facility] [address] [place] [phone] 10/26/2024 3:20 PM FIRE OFFICER Clinical Support [facility] [address] [place] [phone] 11/02/2024 3:40 PM FIRE OFFICER Clinical Support [facility] [address] [place] [phone] 11/09/2024 3:20 PM FIRE OFFICER Clinical Support [facility] [address] [place] [phone] documented as of this encounter Visit Diagnoses Not on filedocumented in this encounter Care Teams Payroll Auditor Relationship Specialty Start Date End Date Jonathan Amado MD [address] [place] [phone] PCP - General Family Medicine 09/15/23 Jonathan Amado MD [address] [place] [phone] 06/24/13 documented as of this encounter
--- OUTSIDE RECORDS SUMMARY | 2024-10-17 03:06 | XMS_ITS | Encounter Summary ---
Author Organization [facility] Address [address] [facility] [place] [address] Care Team Providers Care Messenger Office Name Role Phone Jonathan Amado MD Unavailable [phone] Jonathan Amado MD Primary Care Provider [phone] Reason for Visit * Reason Comments Immunotherapy Encounter Details Date Type Department Care Team (Latest Contact Info) Description 12/16/2023 3:40 PM ADMINISTRATIVE MEDICAL DIRECTOR Clinical Support [facility] [address] [place] [phone] Seasonal allergic rhinitis due to pollen [...] Progress Notes * Ai Lomeli, RN - 12/16/2023 3:31 PM CST This person is taking immunotherapy for previously diagnosed allergic rhinitis. Serum calculations have been reviewed by Dr. Arellano on 11/27/2023 . Allergy Individual Dosing Allergy extracts mixed: 12/02/2023 and 6 months after date mixed. date [place] mix mold Phenol saline Vial in series verified with Signature & location 12/16/2023 0.05 0.25 0.20 12/16/23 right upper arm SQ -am 12/23/2023 0.07 0.25 0.18 12/30/2023 0.10 0.25 0.15 01/06/2024 0.12 0.25 0.13 01/13/2024 0.15 0.25 0.10 01/20/2024 0.17 0.25 0.08 01/27/2024 0.20 0.25 0.05 02/03/2024 0.22 0.25 0.03 02/10/2024 0.25 0.25 0.00 02/17/2024 0.25 0.25 0.00 02/24/2024 0.25 0.25 0.00 03/02/2024 0.25 0.25 0.00 Physician in office: Houston Pantoja MD Diagnosis: j30.1 Allergic rhinitis Epipen exp 12/2024 Department of Otolaryngology Head and Neck Surgery Patient Name: Pina Reynaga : 1970 Date: 12/16/2023 1. Did you bring your Epi-pen with you to clinic today? Yes 2. How are you feeling today? fine 3. How have you been feeling since your last shot? Fine. A. What symptoms do you have? Denies [...] temperature >101? no Injection time: 1540 Site: Right Upper Arm SQ Vial Contents diluted with 0.5ml Normal Saline: No Reaction: Redness 1 inch x 1/2 inch at 10min after injection. Action taken: benadryl cream applied at injection [...] st Contact Info) Description 10/19/2024 3:40 PM ADMINISTRATIVE MEDICAL DIRECTOR Clinical Support [facility] [address] [place] [phone] 10/26/2024 3:20 PM ADMINISTRATIVE MEDICAL DIRECTOR Clinical Support [facility] [address] [place] [phone] 11/02/2024 3:40 PM ADMINISTRATIVE MEDICAL DIRECTOR Clinical Support [facility] [address] [place] [phone] 11/09/2024 3:20 PM ADMINISTRATIVE MEDICAL DIRECTOR Clinical Support [facility] [address] [place] [phone] documented as of this encounter Visit Diagnoses Diagnosis Seasonal allergic rhinitis due to pollen- Primary documented in this encounter Care Teams Messenger Office Relationship Specialty Start Date End Date Jonathan Amado MD [address] [place] [phone] PCP - General Family Medicine 09/15/23 Jonathan Amado MD [address] [place] [phone] 06/24/13 documented as of this encounter
--- OUTSIDE RECORDS SUMMARY | 2024-10-17 03:06 | XMS_ITS | Encounter Summary ---
Author Organization [facility] Address [address] [place] [address] Care Team Providers Care Patient Flow Coordinator Name Role Phone Jonathan Amado MD Unavailable [phone] Jonathan Amado MD Primary Care Provider [phone] Reason for Visit * Reason Comments Immunotherapy Allergy shot Encounter Details Date Type Department Care Team (Latest Contact Info) Description 02/03/2024 3:40 PM CDT Clinical Support [facility] [address] [place] [phone] Seasonal allergic rhinitis due to pollen Social [...] encounter Progress Notes * Ryanne Amaya - 02/03/2024 3:20 PM CDT This person is taking immunotherapy for previously diagnosed allergic rhinitis. Serum calculations have been reviewed by Dr. Arellano on 11/27/2023 . Allergy Individual Dosing Allergy extracts mixed: 12/02/2023 and 6 months after date mixed. date [place] mix mold Phenol saline Vial in series [...] upper arm SQ-ls 02/10/2024 0.25 0.25 0.00 02/17/2024 0.25 0.25 [...] a temperature >101? no Injection time: 1520 Site:right Upper Arm SQ Vial Contents diluted with [...] call 911. Pt & spouse acknowledge understanding. 1540Time ambulatory from clinic in no distress, color pink, respiratory unlabored, steady on feet, voices no complaints. Spouse with pt. documented in this encounter Plan of Treatment Upcoming Encounters Date Type Department Care Team (Late st Contact Info) Description 10/19/2024 3:40 PM NAPRAPATH Clinical Support [facility] [address] [place] [phone] 10/26/2024 3:20 PM NAPRAPATH Clinical Support [facility] [address] [place] [phone] 11/02/2024 3:40 PM NAPRAPATH Clinical Support [facility] [address] [place] [phone] 11/09/2024 3:20 PM NAPRAPATH Clinical Support [facility] [address] [place] [phone] documented as of this encounter Visit Diagnoses Diagnosis Seasonal allergic rhinitis due to pollen- Primary documented in this encounter Care Teams Patient Flow Coordinator Relationship Specialty Start Date End Date Jonathan Amado MD [address] [place] [phone] PCP - General Family Medicine 09/15/23 Jonathan Amado MD [address] [place] [phone] 06/24/13 documented as of this encounter
--- OUTSIDE RECORDS SUMMARY | 2024-10-17 03:06 | XMS_ITS | Encounter Summary ---
Author Organization [facility] Address [address] [place] [address] Care Team Providers Care Teller Name Role Phone Jonathan Amado MD Unavailable [phone] Jonathan Amado MD Primary Care Provider [phone] Reason for Visit * Reason Comments Immunotherapy Allergy shot Encounter Details Date Type Department Care Team (Latest Contact Info) Description 12/09/2023 3:40 PM NURSE PRACTITIONER Clinical Support [facility] [address] [place] [address] [phone] Seasonal allergic rhinitis due to pollen Social [...] encounter Progress Notes * Ryanne Amaya - 12/09/2023 3:22 PM CST This person is taking immunotherapy for previously diagnosed allergic rhinitis J30.1. Serum calculations have been reviewed by Dr. Ventura on 09/15/2023. . Allergy Individual Dosing Allergy extracts mixed: 09/24/2023 and 6 months after date mixed. date [place] mix Mold mix Phenol saline Vial in series verified with Signature and location 09/30/2023 0.05 0.05 0.40 pt Right upper arm SQ-ar 10/07/2023 0.07 0.10 0.35 pt Right upper arm SQ-ls 10/14/2023 0.10 0.15 0.30 pt Right upper arm SQ-ls 10/21/2023 0.12 0.20 0.25 Right upper arem SQ-sb 10/28/2023 0.15 0.25 0.20 Right upper arm SQ-sb 11/04/2023 0.17 0.25 0.15 Right upper arm SQ -am 11/11/2023 0.20 0.25 0.10 Right upper arm SQ -am 11/18/2023 0.22 0.25 0.05 Right upper arm SQ -am 11/25/2023 0.25 0.25 0.00 Right upper arm SQ-ls 12/02/2023 0.25 0.25 0.00 Right upper arm SQ-ls 12/09/2023 0.25 0.25 0.00 Right upper arm sq-ls Epipen exp 12/2024 Physician in office: Dr. Pantoja Department of Otolaryngology Head and Neck Surgery Patient Name: Pina Reynaga : 1970 Date: 12/09/2023 1. Did you bring your Epi-pen with [...] temperature >101? no Injection time: 1523 Site: Right Upper Arm SQ Vial Contents [...] on feet,voices no complaints. Spouse with pt. E PRACTITIONER documented in this encounter Plan of Treatment Upcoming Encounters Date Type Department Care Team (Late st Contact Info) Description 10/19/2024 3:40 PM NURSE PRACTITIONER Clinical Support [facility] [address] [place] [phone] 10/26/2024 3:20 PM NURSE PRACTITIONER Clinical Support [facility] [address] [place] [phone] 11/02/2024 3:40 PM NURSE PRACTITIONER Clinical Support [facility] [address] [place] [phone] 11/09/2024 3:20 PM NURSE PRACTITIONER Clinical Support [facility] [address] [place] [phone] documented as of this encounter Visit Diagnoses Diagnosis Seasonal allergic rhinitis due to pollen- Primary documented in this encounter Care Teams Teller Relationship Specialty Start Date End Date Jonathan Amado MD [address] [place] [phone] PCP - General Family Medicine 09/15/23 Jonathan Amado MD [facility] [place] [address] 06/24/13 documented as of this encounter
--- OUTSIDE RECORDS SUMMARY | 2024-10-17 03:06 | XMS_ITS | Encounter Summary ---
Author Organization [facility] Address [address] [place] [address] Care Team Providers Care Film Processing Utility Worker Name Role Phone Jonathan Amado MD Unavailable [phone] Jonathan Amado MD Primary Care Provider [phone] Reason for Visit * Reason Comments Immunotherapy Allergy shot Encounter Details Date Type Department Care Team (Latest Contact Info) Description 01/20/2024 3:20 PM CDT Clinical Support [facility] [address] [place] [phone] Seasonal allergic rhinitis due to pollen Social [...] encounter Progress Notes * Ryanne Amaya - 01/20/2024 2:47 PM CDT This person is taking immunotherapy for previously diagnosed allergic rhinitis. Serum calculations have been reviewed by Dr. Arellano on 11/27/2023 . Allergy Individual Dosing Allergy extracts mixed: 12/02/2023 and 6 months after date mixed. date [place] mix mold Phenol saline Vial in series [...] upper arm SQ-ls 01/27/2024 0.20 0.25 0.05 02/03/2024 0.22 0.25 0.03 02/10/2024 0.25 0.25 0.00 02/17/2024 0.25 0.25 0.00 02/24/2024 0.25 0.25 0.00 03/02/2024 0.25 0.25 0.00 Physician in office: Houston Pantoja MD Diagnosis: j30.1 Allergic rhinitis Epipen exp 12/2024 Department of Otolaryngology Head and Neck Surgery Patient Name: Pina Reynaga : 1970 Date: 01/20/2024 1. Did you bring your Epi-pen with [...] have a temperature >101? no Injection time: 1450 Site:righrt Upper Arm SQ Vial Contents diluted [...] call 911. Pt & spouse acknowledge understanding. 1610 Time ambulatory from clinic in no distress, color pink, respiratory unlabored, steady on feet,voices no complaints. Spouse with pt. documented in this encounter Plan of Treatment Upcoming Encounters Date Type Department Care Team (Late st Contact Info) Description 10/19/2024 3:40 PM PEARL DIVER Clinical Support [facility] [address] [place] [phone] 10/26/2024 3:20 PM PEARL DIVER Clinical Support [facility] [address] [place] [phone] 11/02/2024 3:40 PM PEARL DIVER Clinical Support [facility] [address] [place] [phone] 11/09/2024 3:20 PM PEARL DIVER Clinical Support [facility] [address] [place] [phone] documented as of this encounter Visit Diagnoses Diagnosis Seasonal allergic rhinitis due to pollen- Primary documented in this encounter Care Teams Film Processing Utility Worker Relationship Specialty Start Date End Date Jonathan Amado MD [address] [place] [phone] PCP - General Family Medicine 09/15/23 Jonathan Amado MD [facility] [place] [address] 06/24/13 documented as of this encounter
--- OUTSIDE RECORDS SUMMARY | 2024-10-17 03:06 | XMS_ITS | Encounter Summary ---
Author Organization [facility] Address [facility] [facility] [place] [address] Care Team Providers Care Certified Hyperbaric Technician Name Role Phone Jonathan Amado MD Unavailable [phone] Jonathan Amado MD Primary Care Provider [phone] Encounter Details Date Type Department Care Team (Latest Contact Info) Description 11/18/2023 Travel Social History Tobacco Use Types Packs/Day [...] st Contact Info) Description 10/19/2024 3:40 PM VP CORPORATE PARTNERSHIPS Clinical Support [facility] [address] [place] [phone] 10/26/2024 3:20 PM VP CORPORATE PARTNERSHIPS Clinical Support [facility] [address] [place] [phone] 11/02/2024 3:40 PM VP [employer]PORATE [employer]NERSHIPS Clinical Support [facility] [address] [place] [phone] 11/09/2024 3:20 PM VP [employer]PORATE PARTNERSHIPS Clinical Support [facility] [address] [place] [phone] documented as of this encounter Visit Diagnoses Not on filedocumented in this encounter Care Teams Certified Hyperbaric Technician Relationship Specialty Start Date End Date Jonathan Amado MD [address] [place] [phone] PCP - General Family Medicine 09/15/23 Jonathan Amado MD [address] [place] [phone] 06/24/13 documented as of this encounter
--- OUTSIDE RECORDS SUMMARY | 2024-10-17 03:06 | XMS_ITS | Encounter Summary ---
Author Organization [facility] Address [facility] [facility] [place] [address] Care Team Providers Care Executive Kitchen Manager Name Role Phone Jonathan Amado MD Unavailable [phone] Jonathan Amado MD Primary Care Provider [phone] Encounter Details Date Type Department Care Team (Latest Contact Info) Description 01/20/2024 Travel Social History Tobacco Use Types Packs/Day [...] Contact Info) Description 10/19/2024 3:40 PM MANAGER MEDICARE Clinical Support [facility] [address] [place] [phone] 10/26/2024 3:20 PM MANAGER MEDICARE Clinical Support [facility] [address] [place] [phone] 11/02/2024 3:40 PM MANAGER MEDICARE Clinical Support [facility] [address] [place] [phone] 11/09/2024 3:20 PM MANAGER MEDICARE Clinical Support [facility] [address] [place] [phone] documented as of this encounter Visit Diagnoses Not on filedocumented in this encounter Care Teams Executive Kitchen Manager Relationship Specialty Start Date End Date Jonathan Amado MD [address] [place] [phone] PCP - General Family Medicine 09/15/23 Jonathan Amado MD [address] [place] [phone] 06/24/13 documented as of this encounter
--- OUTSIDE RECORDS SUMMARY | 2024-10-17 03:06 | XMS_ITS | Encounter Summary ---
Author Organization [facility] Address [facility] [facility] [place] [address] Care Team Providers Care English Tutor Name Role Phone Jonathan Amado MD Unavailable [phone] Jonathan Amado MD Primary Care Provider [phone] Encounter Details Date Type Department Care Team (Latest Contact Info) Description 12/09/2023 Travel Social History Tobacco Use Types Packs/Day [...] st Contact Info) Description 10/19/2024 3:40 PM ESTHETICIAN AND MANAGER MEDICAL SPA Clinical Support [facility] [address] [place] [phone] 10/26/2024 3:20 PM ESTHETICIAN AND MANAGER MEDICAL SPA Clinical Support [facility] [address] [place] [phone] 11/02/2024 3:40 PM ESTHETICIAN AND MANAGER MEDICAL SPA Clinical Support [facility] [address] [place] [phone] 11/09/2024 3:20 PM ESTHETICIAN AND MANAGER MEDICAL SPA Clinical Support [facility] [address] [place] [phone] documented as of this encounter Visit Diagnoses Not on filedocumented in this encounter Care Teams English Tutor Relationship Specialty Start Date End Date Jonathan Amado MD [address] [place] [phone] PCP - General Family Medicine 09/15/23 Jonathan Amado MD [address] [place] [phone] 06/24/13 documented as of this encounter
--- OUTSIDE RECORDS SUMMARY | 2024-10-17 03:06 | XMS_ITS | Encounter Summary ---
Author Organization [facility] Address [address] [facility] [place] [address] Care Team Providers Care Conservation Of Resources Commissioner Name Role Phone Jonathan Amado MD Unavailable [phone] Jonathan Amado MD Primary Care Provider [phone] Encounter Details Date Type Department Care Team (Latest Contact Info) Description 02/10/2024 3:40 PM CDT Clinical Support [facility] [address] [place] [phone] Seasonal allergic rhinitis due to pollen [...] Progress Notes * Jose Luis Ryanne - 02/10/2024 3:11 PM CDT This person is taking immunotherapy for previously diagnosed allergic rhinitis. Serum calculations have been reviewed by Dr. Arellano on 11/27/2023 . Allergy Individual Dosing Allergy extracts mixed: 12/02/2023 and 6 months after date mixed. date [place] mix mold Phenol saline Vial in series [...] upper arm SQ-ls 02/17/2024 0.25 0.25 0.00 02/24/2024 0.25 0.25 0.00 03/02/2024 0.25 0.25 0.00 Physician in office: Houston Pantoja MD Diagnosis: j30.1 Allergic rhinitis Epipen exp 12/2024 Department of Otolaryngology Head and Neck Surgery Patient Name: Pina Reynaga : 1970 Date: 02/10/2024 1. Did you bring your Epi-pen with you to clinic today? Yes 2. How are you feeling today? fine 3. How have you been feeling since your last shot? Fine. A. What symptoms do you have? sneezing B. When do you have these symptoms? Past week C. Are your symptoms mild, moderate [...] have a temperature >101? no Injection time: 1515 Site:right Upper Arm SQ Vial Contents diluted [...] st Contact Info) Description 10/19/2024 3:40 PM DIRECTOR STATISTICAL PROGRAMMING Clinical Support [facility] [address] [place] [phone] 10/26/2024 3:20 PM DIRECTOR STATISTICAL PROGRAMMING Clinical Support [facility] [address] [place] [phone] 11/02/2024 3:40 PM DIRECTOR STATISTICAL PROGRAMMING Clinical Support [facility] [address] [place] [phone] 11/09/2024 3:20 PM DIRECTOR STATISTICAL PROGRAMMING Clinical Support [facility] [address] [place] [phone] documented as of this encounter Visit Diagnoses Diagnosis Seasonal allergic rhinitis due to pollen- Primary documented in this encounter Care Teams Conservation Of Resources Commissioner Relationship Specialty Start Date End Date Jonathan Amado MD [facility] [place] [address] PCP - General Family Medicine 09/15/23 Jonathan Amado MD [facility] [place] [address] 06/24/13 documented as of this encounter
--- OUTSIDE RECORDS SUMMARY | 2024-10-17 03:06 | XMS_ITS | Encounter Summary ---
Author Organization [facility] Address [facility] [facility] [place] [address] Care Team Providers Care Career Technology Teacher Name Role Phone Jonathan Amado MD Unavailable [phone] Jonathan Amado MD Primary Care Provider [phone] Encounter Details Date Type Department Care Team (Latest Contact Info) Description 12/02/2023 Travel Social History Tobacco Use Types Packs/Day [...] st Contact Info) Description 10/19/2024 3:40 PM TOOL ROOM GEAR MACHINE OPERATOR Clinical Support [facility] [address] [place] [phone] 10/26/2024 3:20 PM TOOL ROOM GEAR MACHINE OPERATOR Clinical Support [facility] [address] [place] [phone] 11/02/2024 3:40 PM TOOL ROOM GEAR MACHINE OPERATOR Clinical Support [facility] [address] [place] [phone] 11/09/2024 3:20 PM TOOL ROOM GEAR MACHINE OPERATOR Clinical Support [facility] [address] [place] [phone] documented as of this encounter Visit Diagnoses Not on filedocumented in this encounter Care Teams Career Technology Teacher Relationship Specialty Start Date End Date Jonathan Amado MD [address] [place] [phone] PCP - General Family Medicine 09/15/23 Jonathan Amado MD [address] [place] [address] 06/24/13 documented as of this encounter
--- OUTSIDE RECORDS SUMMARY | 2024-10-17 03:06 | XMS_ITS | Encounter Summary ---
Author Organization [facility] Address [address] [place] [address] Care Team Providers Care Gasoline Truck Operator Name Role Phone Jonathan Amado MD Unavailable [phone] Jonathan Amado MD Primary Care Provider [phone] Reason for Visit * Reason Comments Immunotherapy Allergy shot Encounter Details Date Type Department Care Team (Latest Contact Info) Description 11/25/2023 3:20 PM CABIN SUPERVISOR Clinical Support [facility] [address] [place] [phone] Seasonal allergic rhinitis due to pollen Social [...] encounter Progress Notes * Ryanne Amaya - 11/25/2023 3:42 PM CST This person is taking immunotherapy for previously diagnosed allergic rhinitis J30.1. Serum calculations have been reviewed by Dr. Ventura on 09/15/2023. . Allergy Individual Dosing Allergy extracts mixed: 09/24/2023 and 6 months after date mixed. date [place] mix Mold mix Phenol saline Vial in [...] upper arm SQ-ls 12/02/2023 0.25 0.25 0.00 12/09/2023 0.25 0.25 0.00 Epipen exp 12/2024 Physician in office: Dr. Brice Department of Otolaryngology Head and Neck Surgery Patient Name: Pina Reynaga : 1970 Date: 11/25/2023 1. Did you bring your Epi-pen with [...] have a temperature >101? no Injection time: 1544 Site: Right Upper Arm SQ Vial Contents diluted with 0.5ml Normal Saline: No Reaction: none Action taken: benadryl cream applied at injection site. Reviewed treatment for local reaction including call office for reaction > 2 inches. Reviewed use epi-pen for signs of anaphylaxis, and call 911. Pt & spouse acknowledge understanding. 1605 Time ambulatory from clinic in no distress, color pink, respiratory unlabored, steady on feet,voices no complaints. Spouse with pt. N SUPERVISOR documented in this encounter Plan of Treatment Upcoming Encounters Date Type Department Care Team (Late st Contact Info) Description 10/19/2024 3:40 PM CABIN SUPERVISOR Clinical Support [facility] [address] [place] [phone] 10/26/2024 3:20 PM CABIN SUPERVISOR Clinical Support [facility] [address] [place] [phone] 11/02/2024 3:40 PM CABIN SUPERVISOR Clinical Support [facility] [address] [place] [phone] 11/09/2024 3:20 PM CABIN SUPERVISOR Clinical Support [facility] [address] [place] [phone] documented as of this encounter Visit Diagnoses Diagnosis Seasonal allergic rhinitis due to pollen- Primary documented in this encounter Care Teams Gasoline Truck Operator Relationship Specialty Start Date End Date Jonathan Amado MD [address] [place] [phone] PCP - General Family Medicine 09/15/23 Jonathan Amado MD [address] [place] [phone] 06/24/13 documented as of this encounter
--- OUTSIDE RECORDS SUMMARY | 2024-10-17 03:06 | XMS_ITS | Encounter Summary ---
Author Organization [facility] Address [address] [place] [address] Care Team Providers Care Fiber Optics Engineer Name Role Phone Jonathan Amado MD Unavailable [phone] Jonathan Amado MD Primary Care Provider [phone] Encounter Details Date Type Department Care Team (Latest Contact Info) Description 02/24/2024 3:20 PM CDT Clinical Support [facility] [address] [place] [phone] Allergic rhinitis due to pollen, unspecified [...] Progress Notes * Niru Valera MA - 02/24/2024 3:32 PM CDT This person is taking immunotherapy for previously diagnosed allergic rhinitis. Serum calculations have been reviewed by Dr. Arellano on 11/27/2023 . Allergy Individual Dosing Allergy extracts mixed: 12/02/2023 and 6 months after date mixed. date [place] mix mold Phenol saline Vial in series [...] arm SQ- ar 03/02/2024 0.25 0.25 0.00 Physician in office: Houston Pantoja MD Diagnosis: j30.1 Allergic rhinitis Epipen exp 12/2024 Department of Otolaryngology Head and Neck Surgery Patient Name: Pina Reynaga : 1970 Date: 02/24/2024 1. Did you bring your Epi-pen with you to clinic today? Yes 2. How are you feeling today? fine 3. How have you been feeling since your last shot? Fine. Had a red reaction for about 2 days. It was itchy and then it down. A. What symptoms do you have? sneezing [...] st Contact Info) Description 10/19/2024 3:40 PM ELECTRONIC PREPRESS SYSTEM OPERATOR Clinical Support [facility] [address] [place] [phone] 10/26/2024 3:20 PM ELECTRONIC PREPRESS SYSTEM OPERATOR Clinical Support [facility] [address] [place] [phone] 11/02/2024 3:40 PM ELECTRONIC PREPRESS SYSTEM OPERATOR Clinical Support [facility] [address] [place] [phone] 11/09/2024 3:20 PM ELECTRONIC PREPRESS SYSTEM OPERATOR Clinical Support [facility] [address] [place] [phone] documented as of this encounter Visit Diagnoses Diagnosis Allergic rhinitis due to pollen, unspecified seasonality- Primary documented in this encounter Care Teams Fiber Optics Engineer Relationship Specialty Start Date End Date Jonathan Amado MD [address] [place] [phone] PCP - General Family Medicine 09/15/23 Jonathan Amado MD [address] [place] [phone] 06/24/13 documented as of this encounter
--- OUTSIDE RECORDS SUMMARY | 2024-10-17 03:06 | XMS_ITS | Encounter Summary ---
Author Organization [facility] Address [address] [facility] [place] [address] Care Team Providers Care Emergency Dispatcher Name Role Phone Jonathan Amado MD Unavailable [phone] Jonathan Amado MD Primary Care Provider [phone] Reason for Visit * Reason Comments Immunotherapy Allergy shot Encounter Details Date Type Department Care Team (Latest Contact Info) Description 01/06/2024 3:40 PM CDT Clinical Support [facility] [address] [place] [phone] Seasonal allergic rhinitis due to pollen Social [...] as of this encounter Progress Notes * Nuno Amayaa - 01/06/2024 3:19 PM CDT This person is taking immunotherapy for previously diagnosed allergic rhinitis. Serum calculations have been reviewed by Dr. Arellano on 11/27/2023 . Allergy Individual Dosing Allergy extracts mixed: 12/02/2023 and 6 months after date mixed. date [place] mix mold Phenol saline Vial in series verified with Signature & location 12/16/2023 0.05 0.25 0.20 12/16/23 right upper arm SQ -am 12/23/2023 0.07 0.25 0.18 pt Rt upper arm SQ-ls 12/30/2023 0.10 0.25 0.15 pt Right upper arm SQ- ar 01/06/2024 0.12 0.25 0.13 pt Right upper arm SQ-ls 01/13/2024 0.15 0.25 0.10 01/20/2024 0.17 0.25 0.08 01/27/2024 0.20 0.25 0.05 02/03/2024 0.22 0.25 0.03 02/10/2024 0.25 0.25 0.00 02/17/2024 0.25 0.25 0.00 02/24/2024 0.25 0.25 0.00 03/02/2024 0.25 0.25 0.00 Physician in office: Houston Pantoja MD Diagnosis: j30.1 Allergic rhinitis Epipen exp 12/2024 Department of Otolaryngology Head and Neck Surgery Patient Name: Pina Reynaga : 1970 Date: 01/06/2024 1. Did you bring your Epi-pen with [...] have a temperature >101? no Injection time: 1521 Site: left Upper Arm SQ Vial Contents [...] st Contact Info) Description 10/19/2024 3:40 PM CHEMICAL RADIATION TECHNICIAN Clinical Support [facility] [address] [place] [phone] 10/26/2024 3:20 PM CHEMICAL RADIATION TECHNICIAN Clinical Support [facility] [address] [place] [phone] 11/02/2024 3:40 PM CHEMICAL RADIATION TECHNICIAN Clinical Support [facility] [address] [place] [phone] 11/09/2024 3:20 PM CHEMICAL RADIATION TECHNICIAN Clinical Support [facility] [address] [place] [phone] documented as of this encounter Visit Diagnoses Diagnosis Seasonal allergic rhinitis due to pollen- Primary documented in this encounter Care Teams Emergency Dispatcher Relationship Specialty Start Date End Date Jonathan Amado MD [facility] [place] [address] PCP - General Family Medicine 09/15/23 Jonathan Amado MD [facility] [place] [address] 06/24/13 documented as of this encounter
--- OUTSIDE RECORDS SUMMARY | 2024-10-17 03:06 | XMS_ITS | Encounter Summary ---
Author Organization [facility] Address [address] [facility] [place] [address] Care Team Providers Care Plunger Machine Operator Name Role Phone Jonathan Amado MD Unavailable [phone] Jonathan Amado MD Primary Care Provider [phone] Encounter Details Date Type Department Care Team (Latest Contact Info) Description 12/23/2023 3:40 PM CDT Clinical Support [facility] [address] [place] [phone] Seasonal allergic rhinitis due to pollen [...] encounter Progress Notes * Jose LuisRyanne - 12/23/2023 3:24 PM CDT This person is taking immunotherapy for previously diagnosed allergic rhinitis. Serum calculations have been reviewed by Dr. Arellano on 11/27/2023 . Allergy Individual Dosing Allergy extracts mixed: 12/02/2023 and 6 months after date mixed. date [place] mix mold Phenol saline Vial in series verified with Signature & location 12/16/2023 0.05 0.25 0.20 12/16/23 right upper arm SQ -am 12/23/2023 0.07 0.25 0.18 pt Rt upper arm SQ-ls 12/30/2023 0.10 0.25 0.15 01/06/2024 0.12 0.25 [...] Patient Name: Pina Reynaga : 1970 Date: 12/23/2023 1. Did you bring your Epi-pen with [...] temperature >101? no Injection time: 1528 Site: Left Upper Arm SQ Vial Contents [...] st Contact Info) Description 10/19/2024 3:40 PM MOLDING UTILITY WORKER Clinical Support [facility] [address] [place] [phone] 10/26/2024 3:20 PM MOLDING UTILITY WORKER Clinical Support [facility] [address] [place] [phone] 11/02/2024 3:40 PM MOLDING UTILITY WORKER Clinical Support [facility] [address] [place] [phone] 11/09/2024 3:20 PM MOLDING UTILITY WORKER Clinical Support [facility] [address] [place] [phone] documented as of this encounter Visit Diagnoses Diagnosis Seasonal allergic rhinitis due to pollen- Primary documented in this encounter Care Teams Plunger Machine Operator Relationship Specialty Start Date End Date Jonathan Amado MD [address] [place] [phone] PCP - General Family Medicine 09/15/23 Jonathan Amado MD [address] [place] [phone] 06/24/13 documented as of this encounter
--- OUTSIDE RECORDS SUMMARY | 2024-10-17 03:06 | XMS_ITS | Encounter Summary ---
Author Organization [facility] Address [facility] [place] [address] Care Team Providers Care Building Services Technician Name Role Phone Jonathan Amado MD Unavailable [phone] Jonathan Amado MD Primary Care Provider [phone] Encounter Details Date Type Department Care Team (Latest Contact Info) Description 01/27/2024 Travel Social History Tobacco Use Types Packs/Day [...] st Contact Info) Description 10/19/2024 3:40 PM MOTION STUDY ENGINEER Clinical Support [facility] [address] [place] [phone] 10/26/2024 3:20 PM MOTION STUDY ENGINEER Clinical Support [facility] [address] [place] [phone] 11/02/2024 3:40 PM MOTION STUDY ENGINEER Clinical Support [facility] [address] [place] [phone] 11/09/2024 3:20 PM MOTION STUDY ENGINEER Clinical Support [facility] [address] [place] [phone] documented as of this encounter Visit Diagnoses Not on filedocumented in this encounter Care Teams Building Services Technician Relationship Specialty Start Date End Date Jonathan Amado MD [address] [place] [phone] PCP - General Family Medicine 09/15/23 Jonathan Amado MD [address] [place] [phone] 06/24/13 documented as of this encounter
--- OUTSIDE RECORDS SUMMARY | 2024-10-17 03:06 | XMS_ITS | Encounter Summary ---
Author Organization [facility] Address [facility] [facility] [place] [address] Care Team Providers Care Sack Department Supervisor Name Role Phone Jonathan Amado MD Unavailable [phone] Jonathan Amado MD Primary Care Provider [phone] Encounter Details Date Type Department Care Team (Latest Contact Info) Description 02/24/2024 Travel Social History Tobacco Use Types Packs/Day [...] st Contact Info) Description 10/19/2024 3:40 PM CASING CREW PUSHER Clinical Support [facility] [address] [place] [phone] 10/26/2024 3:20 PM CASING CREW PUSHER Clinical Support [facility] [address] [place] [phone] 11/02/2024 3:40 PM CASING CREW PUSHER Clinical Support [facility] [address] [place] [phone] 11/09/2024 3:20 PM CASING CREW PUSHER Clinical Support [facility] [address] [place] [phone] documented as of this encounter Visit Diagnoses Not on filedocumented in this encounter Care Teams Sack Department Supervisor Relationship Specialty Start Date End Date Jonathan Amado MD [address] [place] [phone] PCP - General Family Medicine 09/15/23 Jonathan Amado MD [address] [place] [phone] 06/24/13 documented as of this encounter
--- OUTSIDE RECORDS SUMMARY | 2024-10-17 03:06 | XMS_ITS | Encounter Summary ---
Author Organization [facility] Address [address] [place] [address] Care Team Providers Care Vice Chairman Name Role Phone Jonathan Amado MD Unavailable [phone] Jonathan Amado MD Primary Care Provider [phone] Reason for Visit * Reason Comments Immunotherapy Allergy shot Encounter Details Date Type Department Care Team (Latest Contact Info) Description 12/02/2023 3:40 PM YARD DEMURRAGE CLERK Clinical Support [facility] [address] [place] [phone] Seasonal allergic rhinitis due to pollen ; Allergic rhinitis due to pollen, unspecified seasonality [...] encounter Progress Notes * Ryanne Amaya - 12/02/2023 3:20 PM CST This person is taking immunotherapy for previously diagnosed allergic rhinitis J30.1. Serum calculations have been reviewed by Dr. Ventura on 09/15/2023. . Allergy Individual Dosing Allergy extracts mixed: 09/24/2023 and 6 months after date mixed. date [place] mix Mold mix Phenol saline Vial in [...] upper arm SQ-ls 12/09/2023 0.25 0.25 0.00 Epipen exp 12/2024 Physician in office: Dr. Brice Department of Otolaryngology Head and Neck Surgery Patient Name: Pina Reynaga : 1970 Date: 12/02/2023 1. Did you bring your Epi-pen with [...] on feet,voices no complaints. Spouse with pt. DEMURRAGE CLERK documented in this encounter Plan of Treatment Upcoming Encounters Date Type Department Care Team (Late st Contact Info) Description 10/19/2024 3:40 PM YARD DEMURRAGE CLERK Clinical Support [facility] [address] [place] [phone] 10/26/2024 3:20 PM YARD DEMURRAGE CLERK Clinical Support [facility] [address] [place] [phone] 11/02/2024 3:40 PM YARD DEMURRAGE CLERK Clinical Support [facility] [address] [place] [phone] 11/09/2024 3:20 PM YARD DEMURRAGE CLERK Clinical Support [facility] [address] [place] [phone] documented as of this encounter Visit Diagnoses Diagnosis Allergic rhinitis due to pollen, unspecified seasonality documented in this encounter Care Teams Vice Chairman Relationship Specialty Start Date End Date Jonathan Amado MD [address] [place] [phone] PCP - General Family Medicine 09/15/23 Jonathan Amado MD [address] [place] [phone] 06/24/13 documented as of this encounter
--- OUTSIDE RECORDS SUMMARY | 2024-10-17 03:06 | XMS_ITS | Encounter Summary ---
Author Organization [facility] Address [facility] [facility] [place] [address] Care Team Providers Care Microelectronics Assembler Name Role Phone Jonathan Amado MD Unavailable [phone] Jonathan Amado MD Primary Care Provider [phone] Encounter Details Date Type Department Care Team (Latest Contact Info) Description 01/13/2024 Travel Social History Tobacco Use Types Packs/Day [...] st Contact Info) Description 10/19/2024 3:40 PM TRAFFIC MAINTENANCE OFFICER Clinical Support [facility] [address] [place] [phone] 10/26/2024 3:20 PM TRAFFIC MAINTENANCE OFFICER Clinical Support [facility] [address] [place] [phone] 11/02/2024 3:40 PM TRAFFIC MAINTENANCE OFFICER Clinical Support [facility] [address] [place] [phone] 11/09/2024 3:20 PM TRAFFIC MAINTENANCE OFFICER Clinical Support [facility] [address] [place] [phone] documented as of this encounter Visit Diagnoses Not on filedocumented in this encounter Care Teams Microelectronics Assembler Relationship Specialty Start Date End Date Jonathan Amado MD [address] [place] [phone] PCP - General Family Medicine 09/15/23 Jonathan Amado MD [address] [place] [phone] 06/24/13 documented as of this encounter
--- OUTSIDE RECORDS SUMMARY | 2024-10-17 03:06 | XMS_ITS | Encounter Summary ---
Author Organization [facility] Address [facility] [facility] [place] [address] Care Team Providers Care Postal Mail Carrier Name Role Phone Jonathan Amado MD Unavailable [phone] Jonathan Amado MD Primary Care Provider [phone] Encounter Details Date Type Department Care Team (Latest Contact Info) Description 01/06/2024 Travel Social History Tobacco Use Types Packs/Day [...] st Contact Info) Description 10/19/2024 3:40 PM UNIVERSITY RELATIONS DIRECTOR Clinical Support [facility] [address] [place] [phone] 10/26/2024 3:20 PM UNIVERSITY RELATIONS DIRECTOR Clinical Support [facility] [address] [place] [phone] 11/02/2024 3:40 PM UNIVERSITY RELATIONS DIRECTOR Clinical Support [facility] [address] [place] [phone] 11/09/2024 3:20 PM UNIVERSITY RELATIONS DIRECTOR Clinical Support [facility] [address] [place] [phone] documented as of this encounter Visit Diagnoses Not on filedocumented in this encounter Care Teams Postal Mail Carrier Relationship Specialty Start Date End Date Jonathan Amado MD [address] [place] [phone] PCP - General Family Medicine 09/15/23 Jonathan Amado MD [address] [place] [phone] 06/24/13 documented as of this encounter
--- OUTSIDE RECORDS SUMMARY | 2024-10-17 03:06 | XMS_ITS | Encounter Summary ---
Author Organization [facility] Address [facility] [facility] [place] [address] Care Team Providers Care Emt I/85 Name Role Phone Jonathan Amado MD Unavailable [phone] Jonathan Amado MD Primary Care Provider [phone] Encounter Details Date Type Department Care Team (Latest Contact Info) Description 12/23/2023 Travel Social History Tobacco Use Types Packs/Day [...] st Contact Info) Description 10/19/2024 3:40 PM TAPE DUPLICATOR Clinical Support [facility] [address] [place] [phone] 10/26/2024 3:20 PM TAPE DUPLICATOR Clinical Support [facility] [address] [place] [phone] 11/02/2024 3:40 PM TAPE DUPLICATOR Clinical Support [facility] [address] [place] [phone] 11/09/2024 3:20 PM TAPE DUPLICATOR Clinical Support [facility] [address] [place] [phone] documented as of this encounter Visit Diagnoses Not on filedocumented in this encounter Care Teams Emt I/85 Relationship Specialty Start Date End Date Jonathan Amado MD [address] [place] [phone] PCP - General Family Medicine 09/15/23 Jonathan Amado MD [address] [place] [phone] 06/24/13 documented as of this encounter
--- OUTSIDE RECORDS SUMMARY | 2024-10-17 03:07 | XMS_ITS | Encounter Summary ---
Author Organization [facility] Address [facility] [facility] [place] [address] Care Team Providers Care Home Therapy Teacher Name Role Phone Jonathan Amado MD Unavailable [phone] Jonathan Amado MD Primary Care Provider [phone] Encounter Details Date Type Department Care Team (Latest Contact Info) Description 10/21/2023 Travel Social History Tobacco Use Types Packs/Day [...] st Contact Info) Description 10/19/2024 3:40 PM INSURANCE ACTUARY Clinical Support [facility] [address] [place] [phone] 10/26/2024 3:20 PM INSURANCE ACTUARY Clinical Support [facility] [address] [place] [phone] 11/02/2024 3:40 PM INSURANCE ACTUARY Clinical Support [facility] [address] [place] [phone] 11/09/2024 3:20 PM INSURANCE ACTUARY Clinical Support [facility] [address] [place] [phone] documented as of this encounter Visit Diagnoses Not on filedocumented in this encounter Care Teams Home Therapy Teacher Relationship Specialty Start Date End Date Jonathan Amado MD [address] [place] [phone] PCP - General Family Medicine 09/15/23 Jonathan Amado MD [address] [place] [address] 06/24/13 documented as of this encounter
--- OUTSIDE RECORDS SUMMARY | 2024-10-17 03:07 | XMS_ITS | Encounter Summary ---
Author Organization [facility] Address [facility] [facility] [place] [address] Care Team Providers Care Notch Grinder Name Role Phone Jonathan Amado MD Primary Care Provider [phone] Jonathan Amado MD Unavailable [phone] Encounter Details Date Type Department Care Team (Latest Contact Info) Description 07/22/2023 Travel Social History Tobacco Use Types Packs/Day [...] st Contact Info) Description 10/19/2024 3:40 PM PARACHUTE REPAIRER Clinical Support [facility] [address] [place] [phone] 10/26/2024 3:20 PM PARACHUTE REPAIRER Clinical Support [facility] [address] [place] [phone] 11/02/2024 3:40 PM PARACHUTE REPAIRER Clinical Support [facility] [address] [place] [phone] 11/09/2024 3:20 PM PARACHUTE REPAIRER Clinical Support [facility] [address] [place] [phone] documented as of this encounter Visit Diagnoses Not on filedocumented in this encounter Care Teams Notch Grinder Relationship Specialty Start Date End Date Jonathan Amado MD [address] [place] [phone] PCP - General Family Medicine 06/24/13 09/14/23 Jonathan Amado MD [address] [place] [phone] 06/24/13 documented as of this encounter
--- OUTSIDE RECORDS SUMMARY | 2024-10-17 03:07 | XMS_ITS | Encounter Summary ---
Author Organization [facility] Address [address] [place], [place] [address] [address] Care Team Providers Care Shaper And Presser Name Role Phone Jonathan Amado MD Primary Care Provider [phone] Jonathan Amado MD Unavailable [phone] Reason for Visit * Reason Onset Date Comments MEDICATION REFILL 07/27/2020 Encounter Details Date Type Department Care Team (Late Contact Info) Description 07/27/2020 Refill [facility] [address] [facility], [address] [place] [address] Grupo Brice MD [address] [place] [address] [place] [address] MEDICATION REFILL Social History Tobacco Use Types Packs/Day Years [...] Encounters Date Type Department Care Team (Late Contact Info) Description 10/19/2024 3:40 PM KIDNEY TRIMMER Clinical Support [facility] [address] [place] [phone] 10/26/2024 3:20 PM KIDNEY TRIMMER Clinical Support [facility] [address] [place] [phone] 11/02/2024 3:40 PM KIDNEY TRIMMER Clinical Support [facility] [address] [place] [address] 11/09/2024 3:20 PM KIDNEY TRIMMER Clinical Support [facility] [address] [place] [phone] documented as of this encounter Visit Diagnoses Not on filedocumented in this encounter Care Teams Shaper And Presser Relationship Specialty Start Date End Date Jonathan Amado MD [address] [place] [phone] PCP - General Family Medicine 06/24/13 09/14/23 Jonathan Amado MD [address] [place] [phone] 06/24/13 documented as of this encounter
--- OUTSIDE RECORDS SUMMARY | 2024-10-17 03:07 | XMS_ITS | Encounter Summary ---
Author Organization [facility] Address [facility] [place] [address] Care Team Providers Care Attorney Recruiter Name Role Phone Jonathan Amado MD Primary Care Provider [phone] Jonathan Amado MD Unavailable [phone] Reason for Visit * Reason Comments Nose Problem Encounter Details Date Type Department Care Team (Late st Contact Info) Description 05/23/2020 3:00 PM CDT Office Visit [facility] Otolaryngology [address] [address] Grupo Brice MD [address] [place] [address] Chronic maxillary sinusitis (Primary Dx) Social History Tobacco Use Types [...] Sign Reading Time Taken Comments Blood Pressure 109/74 05/23/2020 3:32 PM CDT Pulse 67 05/23/2020 3:32 PM CDT Temperature - - Respiratory Rate - - Oxygen Saturation - - Inhaled Oxygen Concentration - - Weight 70.3 kg (155 lb) 05/23/2020 3:32 PM CDT Height 162.6 cm (5' 4 ) 05/23/2020 3:32 PM CDT Body Mass Index 26.61 05/23/2020 3:32 PM CDT documented in this encounter Patient Instructions * Patient Instructions* Leana Campos - 05/23/2020 3:30 PM CDT Thank you for visiting [facility] Otolaryngology - Head & Neck Surgery. We appreciate your confidence in allowing us to participate in your health care. You may receive a survey about your visit with us today. Making our patients happy isn't just happy talk; it's our mission. Please tell us ifwe made the right impression on you- and how we can serve you better. Please SAVE the information below, it will assist you when it's time for you to contact us. To MAKE - CHANGE - CANCEL an office appointment If you become ill, need to be seen before your next scheduled appointment, or need to cancel or reschedule an appointment, please call our office at [phone] Friday through Friday from 8:30 am to4:30 pm. You can also request a routine appointment through your [employer] account. Prescription Refills Contact your pharmacy to request all refills. The pharmacy will need to fax the request to us at . Please allow a minimum of 48-72 hours for your prescription to be completed. Your pharmacy will notify you when your prescription is ready to be picked up. Medical Emergency / After Hours Contact Information If you have a medical emergency, please call 911 or go to the nearest emergency room. For urgent medical calls which cannot wait until the office opens, please call the medical exchangeat and ask the edge trimming machine operator to page the ENT physician stock handler floorperson. *Caller ID blocking service will need to be turned off for your call to be returned. We also specialize in Hearing Aids, Allergy testing, swallowing disorders, voice problems, cancer diagnosis, and so much more. Visit our website at [email or web address] for information about our practice and an interactive healthencyclopedia. documented in this encounter Progress Notes * Grupo Brice MD - 05/23/2020 3:43 PM CDT History of Present Illness: Pina is a 50 year old female who presents for evaluation of sinuses. Has long standing chronichyperplastic rhinosinusitis. Has been having severe right sided symptoms for a month. Went to urgent care started on Augmentin. No better contacted our office started topical Budesonide and Tobramycin. Improved but still has symptoms on the right side. Facial pain and fullness. 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 Recommended by automation clerk to maintain social distancing and to not return to school environment. Past Medical History: Past Medical History: Diagnosis Date ??? Disorder of maxillary sinus Past Surgical History: Procedure Laterality Date ??? Cholecystectomy, Laparoscopic ??? Hysterectomy endometrosis Family History Problem Relation Name Age of Onset ??? Psoriasis Mother Status: Alive ??? Arthritis - Osteo Mother ??? Hypertension Father Status: Alive ??? None Known Brother Current Outpatient Medications Medication Sig Dispense Refill ??? budesonide (PULMICORT) 0.5 MG/2ML nebulizer suspension Mix one vial in 90- 240 ml of salt water (pt may mix own saline). Irrigate half into each nostril two times/day. 120 mL 5 ??? cetirizine (ZYRTEC) 10 MG tablet Take 10 mg by mouth once daily ??? Cholecalciferol (VITAMIN D-3) 1000 UNITS Take 1,000 Units by mouth 2 times daily ??? Cyanocobalamin (B-12) 1000 MCG Take 1,000 mcg by mouth ??? EPINEPHrine (EPIPEN) 0.3 MG/0.3ML auto-injector pen Inject 0.3 mL into muscle as needed for Anaphylaxis (Patient not taking: Reported on 05/23/2020) 0.3 mL 0 ??? magnesium 250 MG tablet Take 250 mg by mouth once daily ??? oxybutynin CR 24hr (DITROPAN-XL) 10 MG tablet Take 10 mg by mouth once daily 3 ??? pantoprazole EC (PROTONIX) 40 MG tablet Take 1 tablet by mouth once daily ??? predniSONE (DELTASONE) 10 MG tablet 40mg po qam x 4days, 30mg po qam x 4days, 20mg po qam x 4days, 10mg po qam x 4days 30 tablet 0 ??? Probiotic Product (ALIGN) 4 MG Take 1 capsule by mouth once daily ??? Pseudoephedrine HCl (SUDAFED PO) Take by mouth as needed ??? Pyridoxine HCl (B-6) 100 MG Take 100 mg by mouth ??? rizatriptan (MAXALT) 10 MG tablet Take 1 tablet by mouth. (Patient taking differently: Take 1 tablet by mouth as needed ) ??? Tobramycin Add 1 capsule of 20mg to 240ml saline (patient may mix own saline). Irrigate half ineach nostril twice daily for 30 days. 0.12 g 0 No current facility-administered medications for this visit. Allergies Allergen Reactions ??? Contrast-Iodinated Agents For Ct/Other Myalgias And joint pain after ??? Doxycycline Rash ??? Morphine Nausea and/or Vomiting ??? Sulfa Drugs Rash and Myalgias ??? Gabapentin Headache ??? Ciprofloxacin Rash ??? Levaquin Rash ??? Compazine Syrup Anxiety Social History Tobacco Use ??? Smoking status: Never Smoker ??? Smokeless tobacco: Never Used Substance Use Topics ??? Alcohol use: No ??? Drug use: No Review of Systems: An 14 point review of systems was completed and negative except for: whole left side of face including ear and jaw has pain Physical Examination: BP 109/74 Pulse 67 Ht 5' 4 (1.626 m) Wt 155 lb (70.3 kg) BMI 26.61 kg/m2 Body mass index is 26.61 kg/m??. Constitutional: in no apparent distress and well developed and well nourished Head and Face: Normocephalic, without obvious abnormality; facial strength intact and symmetric, nontender Eyes: conjunctivae/corneas clear. PERRL Ears: Pinnae: normal bilaterally External canals: clear without exudates or blood Tympanic membrane and Middle ears: Right ear: clear, TM with normal appearing landmarks, no fluid Left ear: clear, TM with normal appearing landmarks, no fluid Nasal: External: nose shows no deformity, asymmetry, or inflammation Septum: Good alignment Turbinates: Delacroix, non-edematous, without discharge Mucosa: Delacroix, healthy appearing Oral Cavity: No perioral or gingival cyanosis or lesions. Tongue and floor of mouth are normal in appearance Throat: Oropharynx with healthy appearing musosa, no visible drainage, no lesions, uvula midline, soft palate with symmetric mobility Neck: no asymmetry, masses, or scars, supple without significant adenopathy, trachea midline, no thyroid enlargement or irregularity palpated Neuro: non focal, mental status and speech normal, alert and oriented Respiration: unlabored breathing, no audible wheezes or stridor Skin: Skin color, texture normal. No rashes or lesions Procedure Note Endoscopy Type: Nasal Endoscopy without debridement Anesthesia: none Procedure Details: After topical anesthesia and decongestion, the patient was placed in the sitting position. The zerodegree telescope was passed along the left nasal [...] clear with normal appearing mucosa Condition: Stable. Patient tolerated procedure well. Complications: None I was present for the entirety of the procedure. Assessment and Plan: Pina is a 50 year old female with recurrent sinusitis. Continue topical budesonide and tobramycin Start 16 day tapering prednisone. FU in 4weeks. * Leana Campos - 05/23/2020 3:28 PM CDT Review of Systems Pina reports the following: whole left side of face including ear and jaw has pain documented in this encounter Procedure Notes * Grupo Brice MD - 05/23/2020 3:45 PM CDTAssociated Order(s): PROC SINUS ENDOSCOPY Procedure(s): MD NASAL ENDOSCOPY,DX Pre-Procedure Diagnose(s): Chronic maxillary sinusitis Procedure Note Endoscopy Type: Nasal Endoscopy without debridement Anesthesia: none Procedure Details: After topical anesthesia and decongestion, the patient was placed in the sitting position. The zerodegree telescope was passed along the left nasal [...] clear with normal appearing mucosa Condition: Stable. Patient tolerated procedure well. Complications: None I was present for the entirety of the procedure. documented in this encounter Plan of Treatment Upcoming Encounters Date Type Department Care Team (Late st Contact Info) Description 10/19/2024 3:40 PM CAREER TECHNICAL COUNSELOR Clinical Support [facility] [address] [place] [phone] 10/26/2024 3:20 PM CAREER TECHNICAL COUNSELOR Clinical Support [facility] [address] [place] [phone] 11/02/2024 3:40 PM CAREER TECHNICAL COUNSELOR Clinical Support [facility] [address] [place] [phone] 11/09/2024 3:20 PM CAREER TECHNICAL COUNSELOR Clinical Support [facility] [address] [place] [phone] documented as of this encounter Procedures Procedure Name Priority Date/Time Associated Diagnosis Comments MD NASAL ENDOSCOPY,DX Routine 05/23/2020 3:45 PM CDT Chronic maxillary sinusitis documented in this encounter Results * (ABNORMAL) CULTURE RESPIRATORY+GRAM STAIN (05/24/2020 10:02 AM CDT) Culture Moderate Serratia marcescens(A) CHERELLE 05/27/2020 8:48 AM CDT [facility] Culture Moderate Acinetobacter species(A) CHERELLE 05/27/2020 8:48 AM CDT [facility] Gram Stain Rare Polymorphonuclear cells 05/27/2020 8:48 AM CDT [facility] Gram Stain Heavy Gram-negative bacilli 05/27/2020 8:48 AM CDT [facility] Microbiology SINUS / Unknown Collection / Unknown 05/24/2020 10:02 AM CDT 05/24/2020 10:20 AM CDT Narrative [facility] - 05/27/2020 8:48 AM CDT Enterobacter, Citrobacter, Serratia, and Klebsiella (formerly Enterobacter) aerogenes may develop resistance during prolonged therapy with third-generation cephalosporins as a result of derepression of AmpC beta-lactamase. Therefore, isolates that are initially susceptible may become resistant within 3 or 4 days after initiation of therapy. Testing of repeat isolates may be warranted. For Serratia marsescens, automated piperacillin/tazobactam results are not available. Call the Microbiology lab if needed at . Organism Antibiotic Method Susceptibility Serratia marcescens Amikacin CHERELLE <=2 ug/mL: Susceptible Serratia marcescens Cefepime CHERELLE <=1 ug/mL: Susceptible Serratia marcescens Ceftriaxone CHERELLE <=1 ug/mL: Susceptible Serratia marcescens Ciprofloxacin CHERELLE <=0.25 ug/mL: Susceptible Serratia marcescens Gentamicin CHERELLE <=1 ug/mL: Susceptible Serratia marcescens Meropenem CHERELLE <=0.25 ug/mL: Susceptible Serratia marcescens Tobramycin CHERELLE 2 ug/mL: Susceptible Serratia marcescens Trimethoprim-sulfame thoxazol e CHERELLE <=20 ug/mL: Susceptible Acinetobacter species Ampicillin-sulbactam CHERELLE <=2 ug/mL: Susceptible Acinetobacter species Cefepime CHERELLE 2 ug/mL: Susceptible Acinetobacter species Ceftazidime CHERELLE 16 ug/mL: Intermediate Acinetobacter species Ciprofloxacin CHERELLE <=0.25 ug/mL: Susceptible Acinetobacter species Gentamicin CHERELLE <=1 ug/mL: Susceptible Acinetobacter species Meropenem CHERELLE 1 ug/mL: Susceptible Acinetobacter species Piperacillin-tazobactam CHERELLE <=4 ug/mL: Susceptible Acinetobacter species Tobramycin CHERELLE 2 ug/mL: Susceptible Acinetobacter species Trimethoprim-sulfa methoxazol e CHERELLE <=20 ug/mL: Susceptible Grupo Brice MD LAB - MICROBIOLOGY O RDERABLES [facility] [address] [place] [address], [facility] [phone] * MD NASAL ENDOSCOPY,DX (05/23/2020 3:45 PM CDT) Narrative [...] Grupo Brice MD PROCEDURE/MINOR SURG ICAL ORDERABLES documented in this encounter Visit Diagnoses Diagnosis Chronic maxillary sinusitis- Primary documented in this encounter Care Teams Attorney Recruiter Relationship Specialty Start Date End Date Jonathan Amado MD [address] [place] [phone] PCP - General Family Medicine 06/24/13 09/14/23 Jonathan Amado MD [address] [place] [phone] 06/24/13 documented as of this encounter
--- OUTSIDE RECORDS SUMMARY | 2024-10-17 03:07 | XMS_ITS | Encounter Summary ---
Author Organization [facility] Address [address] [address] Care Team Providers Care Oracle Sql Developer Name Role Phone Jonathan Amado MD Primary Care Provider [phone] Jonathan Amado MD Unavailable [phone] Reason for Visit * Reason Comments Immunotherapy Encounter Details Date Type Department Care Team (Latest Contact Info) Description 12/29/2018 3:30 PM CDT Clinical Support [facility] Otolaryngology [address] [address] Allergic rhinitis, unspecified seasonality, unspecified trigger Social History Tobacco Use Types Packs/Day Years Used Date Smoking Tobacco: Never Smokeless Tobacco: Never Alcohol Use Standard Drinks/Week Comments No 0 (1 standard drink = 0.6 oz pur e alcohol) Sex and Gender Information Value Date Recorded Sex Assigned at Not on file Gender Identity Not on file Sexual Orientation Not on file documented as of this encounter Patient Instructions * Patient Instructions* Charleen North RN - 12/29/2018 4:09 PM CDT Reviewed treatment for local reaction including call office for reaction > 2 inches. Reviewed use epi-pen for signs of anaphylaxis, and call 911. Pt acknowledges understanding. Please report any local reaction greater than half dollar size wheal or redness to office. For severe symptoms or anaphylaxis, such as angioedema, stridor, wheezing, use Epi pen (and inhaler if hx asthma) as directed, call 911 and go to closest Emergency Department. Please inform office at [phone] (HEIDY office nurse line) after you have been treated. documented in this encounter Progress Notes * Charleen North RN - 12/29/2018 4:08 PM CDT Serum calculations have been reviewed by Dr. Arellano. Serum compounded into 7 individual dose vialsand [facility] at [facility] for [facility]. Date Tree Mix [place] Mix Mold Mix Phenol Normal Saline SIGNATURE AND LOCATION 10/21/2018 0.25 0.12 0.12 0.25 Right upper arm SQ on 10/27 -am 10/28/2018 0.25 0.25 0.25 Right upper arm SQ 11/11 sb 11/11/2018 0.25 0.25 0.25 Right upper arm SQ-sb 11/2411/24/2018 0.25 0.25 0.25 Right upper arm SQ on 12/08 -am 12/09/2018 0.25 0.25 0.25 Right upper arm SQ-sb 12/2912/23/2018 0.25 0.25 0.25 01/06/2019 0.25 0.25 0.25 Department of Otolaryngology Head and Neck Surgery Patient Name: iPna Reynaga : 1970 Date: 12/29/2018 1. Did you bring your Epi-pen with you to clinic today? Yes, checks, expires 01/2019 2. How are you feeling today? sinuses are good, I have a bunch of other issues. 3. How have you been feeling since your last shot? All right A. What symptoms do you have? None really B. When do you have these symptoms? n/a C. Are your symptoms mild, moderate or severe? n/a 4. How has your asthma been? OK A. Is your asthma controlled or uncontrolled? Controlled B. Have you had any recent attacks? No 5. Are you having trouble breathing today? No 6. Have you had any problems with angioedema? No 7. Any local reactions from your last shot? No 8. Are you on any beta margy antihypertensives? No 9. Have you taken any antihistamines since your last visit? Yes: daily 10. Do you have a temperature >101? no Injection time: 1535 Site: Right Upper Arm SQ Vial Contents diluted with 0.5ml Normal Saline no No injection given due to Reaction: No Action taken: Reviewed treatment for local reaction including call office for reaction > 2 inches. Reviewed use epi-pen for signs of anaphylaxis, and call 911. Pt acknowledges understanding. 1550 Time ambulatory from clinic in no distress, color pink, respiratory unlabored, steady on feet,voices no complaints. documented in this encounter Plan of Treatment Upcoming Encounters Date Type Department Care Team (Late st Contact Info) Description 10/19/2024 3:40 PM EPIC CUPID ANALYST Clinical Support [facility] [address] [place] [phone] 10/26/2024 3:20 PM EPIC CUPID ANALYST Clinical Support [facility] [address] [place] [phone] 11/02/2024 3:40 PM EPIC CUPID ANALYST Clinical Support [facility] [address] [place] [phone] 11/09/2024 3:20 PM EPIC CUPID ANALYST Clinical Support [facility] [address] [place] [phone] documented as of this encounter Visit Diagnoses Diagnosis Allergic rhinitis, unspecified seasonality, unspecified trigger- Primary documented in this encounter Care Teams Oracle Sql Developer Relationship Specialty Start Date End Date Jonathan Amado MD [facility] [place] [phone] PCP - General Family Medicine 06/24/13 09/14/23 Jonathan Amado MD [facility] [place] [phone] 06/24/13 documented as of this encounter
--- OUTSIDE RECORDS SUMMARY | 2024-10-17 03:07 | XMS_ITS | Encounter Summary ---
Author Organization [facility] Address [address] [facility] [place] [address] Care Team Providers Care Licensing Services Clerk Name Role Phone Jonathan Amado MD Primary Care Provider [phone] Jonathan Amado MD Unavailable [phone] Reason for Visit * Reason Onset Date Comments Sinusitis 01/22/2023 Encounter Details Date Type Department Care Team (Late st Contact Info) Description 01/22/2023 Telephone [facility] [address] [facility], [address] [place] [address] Ai Lomeli, RN Sinusitis Social History Tobacco Use Types Packs/Day Years Used Date Smoking Tobacco: Never Smokeless Tobacco: Never Alcohol Use Standard Drinks/Week Comments No 0 (1 standard drink = 0.6 oz pur e alcohol) Sex and Gender Information Value Date Recorded Sex Assigned at Not on file Gender Identity Not on file Sexual Orientation Not on file documented as of this encounter Miscellaneous Notes * Telephone Encounter - Ai Lomeli, RN - 01/22/2023 3:23 PM CDT Per pt, green at throat, or clear or yellow at nose for 2 weeks, Covid negative, was seen at Urgent Care and prescribed Z-Pack, which she finished 3 days ago. States no change in symptoms with medication. Nasally irrigating 2 or 3 times daily. Wonders if she should have appointment with MD sooner than 01/28/23. Case discussed with Dr. Brice and call returned to patient at: Start abx nasal irrigations, start or continue budesonide in nasal irrigations, keep appt 01/28/23. Also encouraged otc meds for symptom relief. Reviewed can use either budesonide in capsule / powder or liquid from local pharmacy, suggested choose by cost. Patient acknowledges understanding. documented in this encounter Plan of Treatment Upcoming Encounters Date Type Department Care Team (Late st Contact Info) Description 10/19/2024 3:40 PM SPEECH LANG PATH Clinical Support [facility] [address] [place] [phone] 10/26/2024 3:20 PM SPEECH LANG PATH Clinical Support [facility] [address] [place] [phone] 11/02/2024 3:40 PM SPEECH LANG PATH Clinical Support [facility] [address] [place] [phone] 11/09/2024 3:20 PM SPEECH LANG PATH Clinical Support [facility] [address] [place] [phone] documented as of this encounter Visit Diagnoses Not on filedocumented in this encounter Care Teams Licensing Services Clerk Relationship Specialty Start Date End Date Jonathan Amado MD [address] [place] [phone] PCP - General Family Medicine 06/24/13 09/14/23 Jonathan Amado MD [address] [place] [phone] 06/24/13 documented as of this encounter
--- OUTSIDE RECORDS SUMMARY | 2024-10-17 03:07 | XMS_ITS | Encounter Summary ---
Author Organization [facility] Address [facility] [facility] [address] [place] [address] Care Team Providers Care Leather Cartridge Belt Maker Name Role Phone Jonathan Amado MD Unavailable [phone] Jonathan Amado MD Primary Care Provider [phone] Encounter Details Date Type Department Care Team (Latest Contact Info) Description 09/15/2023 Travel Social History Tobacco Use Types Packs/Day [...] st Contact Info) Description 10/19/2024 3:40 PM EDUCATION FACULTY MEMBER Clinical Support [facility] [address] [place] [phone] 10/26/2024 3:20 PM EDUCATION FACULTY MEMBER Clinical Support [facility] [address] [place] [phone] 11/02/2024 3:40 PM EDUCATION FACULTY MEMBER Clinical Support [facility] [address] [place] [phone] 11/09/2024 3:20 PM EDUCATION FACULTY MEMBER Clinical Support [facility] [address] [place] [phone] documented as of this encounter Visit Diagnoses Not on filedocumented in this encounter Care Teams Leather Cartridge Belt Maker Relationship Specialty Start Date End Date Jonathan Amado MD [address] [place] [phone] PCP - General Family Medicine 09/15/23 Jonathan Amado MD [address] [place] [phone] 06/24/13 documented as of this encounter
--- OUTSIDE RECORDS SUMMARY | 2024-10-17 03:07 | XMS_ITS | Encounter Summary ---
Author Organization [facility] Address [address] [place] [address] Care Team Providers Care Frame Changer Name Role Phone Jonathan Amado MD Primary Care Provider [phone] Jonathan Amado MD Unavailable [phone] Reason for Visit * Reason Onset Date Comments Results 04/27/2021 Encounter Details Date Type Department Care Team (Late st Contact Info) Description 04/27/2021 Telephone [facility] [place] [phone] Ai Lomeli, RN Results Social History Tobacco Use Types Packs/Day Years Used Date Smoking Tobacco: Never Smokeless Tobacco: Never Alcohol Use Standard Drinks/Week Comments No 0 (1 standard drink = 0.6 oz pur e alcohol) Sex and Gender Information Value Date Recorded Sex Assigned at Not on file Gender Identity Not on file Sexual Orientation Not on file COVID-19 Exposure Response Date Recorded In the last month, have you been in contact with someone who was confirmed or suspected to have Coronavirus / COVID-19? Unable to assess 04/24/2021 4:41 PM CDT documented as of this encounter Miscellaneous Notes * Telephone Encounter - Ai Lomeli, RN - 04/27/2021 5:37 PM CDT 04/27 left message for pt to discuss progress after appt & culture results. Pt returns call. Spoke with pt at 1735, states has not received tobramycin or budesonide for nasal irrigation, agreeable with plan for meds to [facility], pharmacy phone number provided, encouraged call 04/28 to verify shipping address. Encouraged call [facility] office for questions before next appt. Pt verbalizes understanding, offers no c/o worsening of symptoms. documented in this encounter Plan of Treatment Upcoming Encounters Date Type Department Care Team (Late st Contact Info) Description 10/19/2024 3:40 PM ROUTER SETTER Clinical Support [facility] [address] [place] [phone] 10/26/2024 3:20 PM ROUTER SETTER Clinical Support [facility] [address] [place] [phone] 11/02/2024 3:40 PM ROUTER SETTER Clinical Support [facility] [address] [place] [phone] 11/09/2024 3:20 PM ROUTER SETTER Clinical [facility] [address] [place] [phone] documented as of this encounter Visit Diagnoses Not on filedocumented in this encounter Care Teams Frame Changer Relationship Specialty Start Date End Date Jonathan Amado MD [address] [place] [phone] PCP - General Family Medicine 06/24/13 09/14/23 Jonathan Amado MD [address] [place] [phone] 06/24/13 documented as of this encounter
--- OUTSIDE RECORDS SUMMARY | 2024-10-17 03:07 | XMS_ITS | Encounter Summary ---
Author Organization [facility] Address [address] [place] [address] Care Team Providers Care Singing Waiter Or Waitress Name Role Phone Jonathan Amado MD Primary Care Provider [phone] Jonathan Amado MD Unavailable [phone] Reason for Visit * Reason Onset Date Comments Follow-up 05/30/2020 culture results, plan Encounter Details Date Type Department Care Team (Late st Contact Info) Description 05/30/2020 Telephone [facility] [address] [address] Ai Lomeli, RN Follow-up (culture results, plan) Social History Tobacco Use Types Packs/Day Years [...] or suspected to have Coronavirus / COVID-19? No / Unsure 05/24/2020 9:49 AM CDT documented as of this encounter Miscellaneous Notes * Telephone Encounter - Ai Lomeli, RN - 05/30/2020 5:03 PM CDT 05/30 per pt, not much better, still with no taste or smell; dark green and yellow drainage from nose when I can get it out, Still on prednisone, admits some (nasal irrigation) getting in there now. States has been sneezing very frequently since COVID test > 1 month ago. Case discussed with Dr. Brice including culture results and pt's current use topical tobramycinand budesonide, and call returned to patient at 1700: Complete prednisone, continue medicated nasal irrigations, add more plain saline nasal irrigations & give update to office next week. Also reviewed pt's exam findings as described by Dr. Brice; reassured. Patient acknowledges understanding. documented in this encounter Plan of Treatment Upcoming Encounters Date Type Department Care Team (Late st Contact Info) Description 10/19/2024 3:40 PM PARIMUTUEL CLERK Clinical Support [facility] [address] [place] [phone] 10/26/2024 3:20 PM PARIMUTUEL CLERK Clinical Support [facility] [address] [place] [phone] 11/02/2024 3:40 PM PARIMUTUEL CLERK Clinical Support [facility] [address] [place] [phone] 11/09/2024 3:20 PM PARIMUTUEL CLERK Clinical Support [facility] - [facility] [address] [place] [phone] documented as of this encounter Visit Diagnoses Not on filedocumented in this encounter Care Teams Singing Waiter Or Waitress Relationship Specialty Start Date End Date Jonathan Amado MD [address] [place] [phone] PCP - General Family Medicine 06/24/13 09/14/23 Jonathan Amado MD [address] [place] [phone] 06/24/13 documented as of this encounter
--- OUTSIDE RECORDS SUMMARY | 2024-10-17 03:07 | XMS_ITS | Encounter Summary ---
Author Organization [facility] Address [facility] [place] [address] Care Team Providers [employer] Director Name Role Phone Jonathan Amado MD Unavailable [phone] Jonathan Amado MD Primary Care Provider [phone] Encounter Details Date Type Department Care Team (Latest Contact Info) Description 11/04/2023 Travel Social History Tobacco Use Types Packs/Day [...] st Contact Info) Description 10/19/2024 3:40 PM ASSISTANT PLANT CONTROLLER Clinical Support [facility] [address] [place] [phone] 10/26/2024 3:20 PM ASSISTANT PLANT CONTROLLER Clinical Support [facility] [address] [place] [phone] 11/02/2024 3:40 PM ASSISTANT PLANT CONTROLLER Clinical Support [facility] [address] [place] [phone] 11/09/2024 3:20 PM ASSISTANT PLANT CONTROLLER Clinical Support [facility] [address] [place] [phone] documented as of this encounter Visit Diagnoses Not on filedocumented in this encounter Care Teams [employer] Director Relationship Specialty Start Date End Date Jonathan Amado MD [address] [place] [phone] PCP - General Family Medicine 09/15/23 Jonathan Amado MD [address] [place] [phone] 06/24/13 documented as of this encounter
--- OUTSIDE RECORDS SUMMARY | 2024-10-17 03:07 | XMS_ITS | Encounter Summary ---
Author Organization [facility] Address [address] [place] [address] Care Team Providers Care Rn Hemodialysis Name Role Phone Jonathan Amado MD Unavailable [phone] Jonathan Amado MD Primary Care Provider [phone] Reason for Visit * Reason Comments Immunotherapy Allergy testing Encounter Details Date Type Department Care Team (Late st Contact Info) Description 09/15/2023 8:00 AM MUSIC AGENT Office Visit [facility] - [facility] [address] [place] [phone] Franc Ventura MD [address] [place] [address] [place] [address] Seasonal allergic rhinitis due to pollen (Primary Dx); Allergic rhinitis due to mold; Allergic rhinitis due to dust mite; Allergic rhinitis due to feathers Social History Tobacco Use Types Packs/Day Years [...] this encounter Patient Instructions * Patient Instructions* Ryanne Amaya - 09/15/2023 10:37 AM MUSIC AGENT See results and suggestions provided at testing visit. Your arms may continue to itch and show areas of redness and swelling for the next several days (the molds we tested may continue to react). This will NOT change the results we saw in the office today, or the recommendation from the doctor.If it is uncomfortable or if the itching is bothersome, you can try applying ice, and/or Benedryl cream (obtain [id number]), and/or take one extra dose of your antihistamine pill. If you have questions, please contact us. Continue current medications, including nasal irrigations (at least daily, but may do as often as you like), Use nasal steroid spray every day -- Flonase, fluticasone, Nasacort, triamcinolone, etc Take daily antihistamine, Dr. Ventura has no preference regarding the best antihistamine (genericof Cassie, Zyrtec, Claritin OR Xyzal). Try each for a week, and see which works best for you. Also continue nasal antihistamine spray up to twice daily as needed -- Astepro, azelastine. Your initial allergy shot is scheduled on 09/30/2023 at 3:40 at the [facility]. You can only get your shots at one location (because that is where your vials will be). Shots are done weekly, ONLY when a doctor is in the office. You MUST bring an epi-pen with you to every allergy shot visit, and keep it with you the day of theshot. You may use antihistamines and any other medications while you are on immunotherapy, it will NOT change the benefit of immunotherapy. ANY questions, you may also call Ryanne at [phone], or message Dr. Brice through [employer]. Follow up with Dr. Brice in 3 months C AGENT documented in this encounter Progress Notes * Franc Ventura MD - 09/15/2023 8:06 AM CST 0800 Pt completed questionnaire. Consent obtained. Allergy testing via modified quantitative technique was performed. Most bothered by allergy symptoms of mold While off antihistamines for testing, allergy symptoms same CT scan -2013 Sinus surgery(ies) - 2015 Sleep study - no Ordered By: Dr. Brice Tested By: Ryanne Amaya MA Supervising Physician: Dr. Ventura Battery A left forearm percutaneously, level 4: right upper arm intradermally: Site Antigen Wheal Dilution # 6 Dilution # 5 Dilution # 4 Dilution # 3 Dilution # 2 Dilution # 1 ITVol. (ml) Initial IT dilution 1 Histamine 7 mm 2 Saline 5 mm 3 Clearfield Pollen * 5 mm 5 0.2 -- 4 Birch Mix * 5 mm 5 0.2 -- 5 Elm Mix 5 mm 0.2 -- 6 Eastern Delanson 5 mm 0.2 -- 7 Red Winthrop 5 mm 0.2 -- 8 Glycerine 5 mm Battery B left forearm, percutaneously, level 4: right upper arm intradermally: Site Antigen Wheal Dilution # 6 Dilution # 5 Dilution # 4 Dilution # 3 Dilution # 2 Dilution # 1 ITVol. (ml) Initial IT dilution 1 Maple Mix 5 mm 0.2 -- 2 #4 Ragweed Mix * 5 mm ep7 0.2 1 3 Pigweed Mix * 5 mm 5 0.2 -- 4 Lambs Quarter 5 mm 5 0.2 -- 5 Quinonez Elder 7 mm ep 0.2 2 6 Sid Mix 5 mm ep7 0.2 1 7 Kochia 5 mm ep7 0.2 1 8 Togolese Thistle 5 mm 5 0.2 -- Battery C right forearm, percutaneously, level 4: right upper arm intradermally: Site Antigen Wheal Dilution # 6 Dilution # 5 Dilution # 4 Dilution # 3 Dilution # 2 Dilution # 1 ITVol. (ml) Initial IT dilution 1 Dock Milladore Mix 7 mm ep 0.2 2 2 Cocklebur 5 mm 5 0.2 -- 3 Std Mite D Farinae * 9 mm ep 0.1 3 4 Std Mite D Ptero. * 9 mm ep 0.1 3 5 Cockroach * 5 mm 5 0.1 -- 6 Std Cat Hair * 5 mm 5 0.1 -- 7 Dog Hair * 5 mm 5 0.1 -- 8 Feather Hair * 5 mm ep7 0.1 1 Battery D right forearm, percutaneously, level 4: right upper arm intradermally: Site Antigen Wheal Dilution # 6 Dilution # 5 Dilution # 4 Dilution # 3 Dilution # 2 Dilution # 1 ITVol. (ml) Initial IT dilution 1 Alternaria * 9 mm ep 0.1 3 2 Hormodendrum * 7 mm ep 0.1 2 3 Pullularia * 5 mm ep7 0.1 1 4 Apergillus Mix * 7 mm ep 0.1 2 5 Marita Albicans 5 mm ep7 0.1 1 6 Helminthosporium 7 mm ep 0.1 2 7 Pencillium 5 mm 5 0.1 -- 8 Fusarium 9 mm ep 0.1 3 Battery E right upper arm intradermally: Site Antigen Wheal Dilution # 6 Dilution # 5 Dilution # 4 Dilution # 3 Dilution # 2 Dilution # 1 ITVol. (ml) Initial IT dilution 1 Mucor mm ep7 0.1 2 2 CORN Smut Mix mm 5 5 0.1 -- 3 Bermuda Grass mm 5 5 5 0.2 -- 4 Thien Grass mm 5 5 5 0.2 -- 5 Horse Hair mm 0.2 Not tested Symptom Review Eye Symptoms: dark circles Ear Symptoms: earache Nasal Symptoms: sneezing, congestion, frequent sinus infections Mouth and Throat Symptoms: none Headaches: none Chest Symptoms: chronic cough, chest tightness/congestion, sputum production Stomach/Intestinal Symptoms: none Skin Symptoms: none Insect Sting Reaction: na Stung by: na Triggers: grass,mold/mildew, house dust, weather changes When are symptoms worse? Year round Are you symptoms better away from home? no Current nasal regimen: Nasal irrigations: BID once with budesonide Currently using oral antihistamine Zyrtec ; has tried Claritin (loratidine), Zyrtec (ceterizine), Cassie (fexofenadine), Currently using nasal steroid spray flonase ; has tried fluticasone, Nasacort, Nasonex, Currently using nasal antihistamine spray azelastine ; has tried Astepro, Astelin (azelastine), Also has used sudafed Testing lasting 2 hours. Pt tolerated testing well with localized itching only. Dr. Ventura talks with pt about results, suggests: immunotherapy Also discussed / suggested environmental control Follow up with Dr. Brice in 3 months . Summary of testing process: For Battery A, B, C and D, listed extracts are applied at left or right forearm or upper arm percutaneously scratch test (Multitest from [facility]); wheal is read at 20 minutes. 5mm or less is negative, and may be rechecked intradermally. Then, 0.02ml of marked extracts are placed intradermally at right upper arm with dilution noted on table; wheal is read at 15 minutes. ep notes endpoint. For Battery E, 0.02ml of listed extracts are placed intradermally at right upper arm with dilution noted on table; wheal is read at 15 minutes. 5mm or less is negative, and may be rechecked with higher concentration. ep notes endpoint. Testing extracts are from [facility]. Patient seen and examined with the allergy team. Please see note for further details. I confirm history, exam, assessment and plan. In addition I note: Interval history: continued symptoms Exam: General exam shows the patient to be in no acute distress. Respiratory exam shows patient to have normal respirations. No evidence of wheezing or shortness of breath. Assessment/Plan: Allergic rhinitis. Allergy testing today with positive results. Discussed allergy shots. Discussed the risks, benefits, alternatives and indications for the shots in great detail. The patient confirmed complete understanding and wishes to proceed. Franc Ventura MD 09/16/2023 2:03 PM C AGENT documented in this encounter Plan of Treatment Upcoming Encounters Date Type Department Care Team (Late st Contact Info) Description 10/19/2024 3:40 PM MUSIC AGENT Clinical Support [facility] [address] [place] [phone] 10/26/2024 3:20 PM MUSIC AGENT Clinical Support [facility] [address] [place] [phone] 11/02/2024 3:40 PM MUSIC AGENT Clinical Support [facility] [address] [place] [phone] 11/09/2024 3:20 PM MUSIC AGENT Clinical Support [facility] [address] [place] [phone] documented as of this encounter Visit Diagnoses Diagnosis Seasonal allergic rhinitis due to pollen- Primary Allergic rhinitis due to mold Allergic rhinitis due to dust mite Allergic rhinitis due to feathers documented in this encounter Care Teams Rn Hemodialysis Relationship Specialty Start Date End Date Jonathan Amado MD [address] [place] [phone] PCP - General Family Medicine 09/15/23 Jonathan Amado MD [address] [place] [phone] 06/24/13 documented as of this encounter
--- OUTSIDE RECORDS SUMMARY | 2024-10-17 03:07 | XMS_ITS | Encounter Summary ---
Author Organization [facility] Address [facility] [place] [address] Care Team Providers Care Billing Machine Operator Name Role Phone Jonathan Amado MD Primary Care Provider [phone] Jonathan Amado MD Unavailable [phone] Reason for Visit * Reason Comments Sinus Problem Encounter Details Date Type Department Care Team (Late st Contact Info) Description 04/09/2022 3:45 PM CDT Office Visit [facility] [address] [place] [phone] Grupo Brice MD [address] [place] [address] [place] [address] Acute ethmoidal sinusitis, recurrence not specified (Primary Dx) Social History Tobacco Use Types [...] Sign Reading Time Taken Comments Blood Pressure 121/81 04/09/2022 4:04 PM CDT Pulse 62 04/09/2022 4:04 PM CDT Temperature 36.7 ??C (98.1 ??F) 04/09/2022 4:04 PM CD T Respiratory Rate - - Oxygen Saturation - - Inhaled Oxygen Concentration - - Weight 70.8 kg (156 lb) 04/09/2022 4:04 PM CDT Height 162.6 cm (5' 4 ) 04/09/2022 4:04 PM CDT Body Mass Index 26.78 04/09/2022 4:04 PM CDT documented in this encounter Patient Instructions * Patient Instructions* Johan Kern MA - 04/09/2022 7:52 AM CDT Thank you for visiting [facility] Otolaryngology - Head & Neck Surgery. [...] an appointment, please call our office at [phone] Friday through Friday from 8:00 am to4:30 pm. You can also request a routine appointment through your mGenerator account. Prescription Refills Contact your pharmacy to request all refills. The pharmacy will need to fax the request to us at . Please allow a minimum of 48-72 hours for your prescription to be completed. Medical Emergency / After Hours Contact Information If you have a medical emergency, please call 911 or go to the nearest emergency room. For urgent medical calls, which cannot wait until the office opens, please call the medical exchange at and ask the tempering oven operator to page the ENT physician vp construction. *Caller ID blocking service will need to be turned off for your call to be returned. We also specialize in Hearing Aids, Allergy testing, swallowing disorders, voice problems, cancer diagnosis, and so much more. Visit our website at [email or web address] for information about our practice and an interactive health encyclopedia. documented in this encounter Progress Notes * Rajesh Allred APRN-CNP - 04/09/2022 4:19 PM CDT Chief Complaint: History of Present Illness: 52 year old with a h/o chronic hyperplastic rhinosinusitis s/p sinus surgeries who presents for evaluation of sinuses. Last seen in clinic by Dr. Brice on 05/02/2021 for chronic maxillary sinusitis treated with topical Tobramycin with Budesonide nasal irrigations with good relief. Today she reports that developed a sinus infection on 03/18/2022 with symptoms of nasal congestion,maxillary sinus congestion/tenderness, purulent rhinorrhea and Bilateral otalgia (R>L). She wentto Urgent Care on 03/18/2022 and was placed on Augmentin x 10 days for sinus infection. Her symptoms improved for about 4 days but symptoms returned and worsen around 03/23/2022. She tested negative for COVID Just started Flonase yesterday 04/08/2022. Has been using nasal saline irrigations twice daily. Takes Zyrtec daily. Not using any other medicines for her symptoms currently. Denies fevers/chills Review of Systems: Negative times 13 (Including General, Psych, Neuro, HEENT, Resp, CV, GI, , Musculoskeletal, Derm,Heme/Lymph), except as noted in EPIC and reviewed by me. Past Medical History: Diagnosis Date ??? Cervical disc disease ??? Chronic interstitial cystitis ??? Disorder of maxillary sinus ??? Migraine PSH: has a past surgical history that includes tonsillectomy; ovarian cyst removal; hysterectomy; bladder procedure/surgery; sinus surgery; cholecystectomy, laparoscopic; and hysterectomy. Current Outpatient Medications Medication Sig Dispense Refill ??? B Complex-C (SUPER B COMPLEX PO) Take by mouth. ??? budesonide (PULMICORT) 0.5 MG/2ML nebulizer suspension Mix one vial in 240 ml of salt water (ptmay mix own saline). Irrigate half into each nostril two times/day. 120 mL 5 ??? Budesonide Add 1 capsule of 0.5mg or 0.6mg to 240ml saline (patient may mix own saline). Irrigate half in each nostril twice daily. 60 capsule 11 ??? cetirizine (ZYRTEC) 10 MG tablet Take 10 mg by mouth once daily ??? Cholecalciferol (VITAMIN D-3) 1000 UNITS Take 1,000 Units by mouth 2 times daily ??? clindamycin (CLEOCIN) 300 MG capsule Take 300 mg by mouth every 8 hours. ??? clotrimazole (MYCELEX) 10 MG lozenge Take 10 mg by mouth 5 times daily while awake. ??? Cyanocobalamin (B-12) 1000 MCG Take 1,000 mcg by mouth ??? EPINEPHrine (EPIPEN) 0.3 MG/0.3ML auto-injector pen Inject 0.3 mL into muscle as needed for Anaphylaxis 0.3 mL 0 ??? ergocalciferol (DRISDOL) 1.25 MG (92903 UT) capsule Take 50,000 Units by mouth every 30 days. ??? fluticasone propionate (FLONASE) 50 MCG/ACT nasal spray [place] 2 Sprays into each nostril once daily. ??? hydroxychloroquine (PLAQUENIL) 200 MG tablet Take 400 mg by mouth once daily ??? ibuprofen (ADVIL) 200 MG capsule Take 200 mg by mouth 4 times daily as needed. ??? magnesium 250 MG tablet Take 250 mg by mouth once daily ??? Ondansetron HCl (ZOFRAN PO) Take by mouth as needed. ??? pantoprazole EC (PROTONIX) 40 MG tablet Take 1 tablet by mouth once daily ??? Probiotic Product (ALIGN) 4 MG Take 1 capsule by mouth once daily ??? Pseudoephedrine HCl (SUDAFED PO) Take by mouth as needed ??? rizatriptan (MAXALT) 10 MG tablet Take 1 tablet by mouth. ??? rizatriptan (MAXALT) 5 MG tablet Take 5 mg by mouth once as needed. ??? Tobramycin Add 1 capsule of 20mg to 240ml saline (patient may mix own saline). Irrigate half ineach nostril twice daily for 30 days. 0.12 g 2 No current facility-administered medications for this visit. Allergies Contrast [contrast-iodinated agents for ct/other], Contrast-iodinated agents for ct/other, Doxycycline, Morphine, Sulfa drugs, Ciprofloxacin, Gabapentin, Septra [sulfamethoxazole w-trimethoprim], Ciprofloxacin, Levaquin, and Compazine syrup Social History Tobacco Use ??? Smoking status: Never Smoker ??? Smokeless tobacco: Never Used Substance Use Topics ??? Alcohol use: No ??? Drug use: No Family History Problem Relation Name Age of Onset ??? Psoriasis Mother Status: Alive ??? Arthritis - Osteo Mother Cspine ??? Hypertension Father Status: Alive ??? None Known Brother BP 121/81 Pulse 62 Temp 98.1 ??F (36.7 ??C) Ht 5' 4 (1.626 m) Wt 156 lb (70.8 kg) BMI 26.78 kg/m2 Physical Exam: Constitutional: Alert, No acute Distress; Well developed/well nourished Neuro:cranial nerves III-XII grossly intact CV/Pulm: Normal respirations and peripheral pulses. Eyes: PERRL, EOMI Face/Skin: normal appearance, no lesions/masses Ears: Right Ear: Mastoid and tragus non-tender, pinna WNL without lesion, EAC with cerumen buildup, TM intact, middle ear space aerated Left Ear: Mastoid non-tender and tragus, pinna WNL without lesion, EAC with cerumen buildup, TM intact, middle ear space aerated Nose: patent bilaterally,Turbinates intact, Mucosal membranes intact, septum is midline externally.Right maxillary tenderness. Unable to visualize posteriorly so proceded with [...] and crusting noted to right ethmoid sinus. Leftnasal cavity with purulent mucous strands to inferior and middle turbinates. Mild purulence noted to ethmoid sinus. Condition: Stable. Patient tolerated procedure well. ?? Complications: None Assessment and Plan: Pina Reynaga is a 52 year old female who presented today with 1) Acute ethmoidal sinusitis After explaining the contributing factors in the differential diagnosis, the disease process was explained in great detail. All questions were answered. At this time, the decision was made to: -Trial nasal irrigations with Tobramycin and Budesonide x 1 month RTC 4-6 weeks or sooner if needed Rajesh Lucio [facility] acted as scribe for Grupo Brice MD in documenting the service or procedure. To the best of my knowledge, I recorded what was dictated by Grupo Brice MD. I, Grupo Brice M.D., have seen and examined the patient and agree with the comments and findings in the above nurse practioner in training note. The above note reflects a procedure that I performed in clinic. The nurse practioner in training assisted with the procedure and/or the procedural note. I performed or re-performed all aspects the HPI, physical exam, procedure, and assessment/plan. Grupo Brice M.D. 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 Examination today shows that there is purulence in the right middle meatus and the ethmoid sinusregion and edematous changes to the mucosa worse on the right than the left. We will start on topical budesonide and tobramycin and follow-up in 4 weeks documented in this encounter Procedure Notes * Rajesh Allred, VP SECURITIES-HOSPITAL CODER - 04/09/2022 5:03 PM CDTAssociated Order(s): PROC SINUS ENDOSCOPY Procedure(s): OK NASAL ENDOSCOPY,DX Pre-Procedure Diagnose(s): Acute ethmoidal sinusitis, recurrence not specified Procedure Note Endoscopy Type: Nasal Endoscopy without [...] and crusting noted to right ethmoid sinus. Leftnasal cavity with purulent mucous strands to inferior and middle turbinates. Mild purulence noted to ethmoid sinus. Condition: Stable. Patient tolerated procedure well. ?? Complications: None documented in this encounter Plan of Treatment Upcoming Encounters Date Type Department Care Team (Late st Contact Info) Description 10/19/2024 3:40 PM TONE REGULATOR Clinical Support [facility] [address] [place] [phone] 10/26/2024 3:20 PM TONE REGULATOR Clinical Support [facility] [address] [place] [phone] 11/02/2024 3:40 PM TONE REGULATOR Clinical Support [facility] [address] [place] [phone] 11/09/2024 3:20 PM TONE REGULATOR Clinical Support [facility] [address] [place] [phone] documented as of this encounter Procedures Procedure Name Priority Date/Time Associated Diagnosis Comments OK NASAL ENDOSCOPY,DX Routine 04/09/2022 5:03 PM CDT Acute ethmoidal sinusitis, recurrence not specified documented in this encounter Results * OK NASAL ENDOSCOPY,DX (04/09/2022 5:03 PM CDT) Narrative [...] tolerated procedure well. ?? Complications: None Rajesh Allred VP SECURITIES-HOSPITAL CODER PROCEDURE/ MINOR SURGICAL ORDERABLES documented in this encounter Visit Diagnoses Diagnosis Acute ethmoidal sinusitis, recurrence not specified- Primary documented in this encounter Care Teams Billing Machine Operator Relationship Specialty Start Date End Date Jonathan Amado MD [facility] [place] [phone] PCP - General Family Medicine 06/24/13 09/14/23 Jonathan Amado MD [facility] [place] [phone] 06/24/13 documented as of this encounter
--- OUTSIDE RECORDS SUMMARY | 2024-10-17 03:07 | XMS_ITS | Encounter Summary ---
Author Organization [facility] Address [facility] [place] [address] Care Team Providers Care Printed Circuit Board Panels Trimmer Name Role Phone Jonathan Amado MD Unavailable [phone] Jonathan Amado MD Primary Care Provider [phone] Encounter Details Date Type Department Care Team (Latest Contact Info) Description 11/11/2023 Travel Social History Tobacco Use Types Packs/Day [...] st Contact Info) Description 10/19/2024 3:40 PM INSTALLATION AND REPAIR TECHNICIAN Clinical Support [facility] [address] [place] [phone] 10/26/2024 3:20 PM INSTALLATION AND REPAIR TECHNICIAN Clinical Support [facility] [address] [place] [phone] 11/02/2024 3:40 PM INSTALLATION AND REPAIR TECHNICIAN Clinical Support [facility] [address] [place] [phone] 11/09/2024 3:20 PM INSTALLATION AND REPAIR TECHNICIAN Clinical Support [facility] [address] [place] [phone] documented as of this encounter Visit Diagnoses Not on filedocumented in this encounter Care Teams Printed Circuit Board Panels Trimmer Relationship Specialty Start Date End Date Jonathan Amado MD [address] [place] [phone] PCP - General Family Medicine 09/15/23 Jonathan Amado MD [address] [place] [phone] 06/24/13 documented as of this encounter
--- OUTSIDE RECORDS SUMMARY | 2024-10-17 03:07 | XMS_ITS | Encounter Summary ---
Author Organization [facility] Address [facility] [place] [address] Care Team Providers Care Honing Machine Operator Production Name Role Phone Jonathan Amado MD Primary Care Provider [phone] Jonathan Amado MD Unavailable [phone] Encounter Details Date Type Department Care Team (Latest Contact Info) Description 07/25/2022 5:49 PM CDT - 07/25/2022 11:59 PM T Hospital Encounter [facility] [address] [place] [phone] Grupo Brice MD [address] [place] [address] Discharge Disposition: Home or Self Care Social History Tobacco Use Types Packs/Day Years Used Date Smoking Tobacco: Never Smokeless Tobacco: Never Alcohol Use Standard Drinks/Week Comments No 0 (1 standard drink = 0.6 oz pur e alcohol) Sex and Gender Information Value Date Recorded Sex Assigned at Not on file Gender Identity Not on file Sexual Orientation Not on file documented as of this encounter Medications at Time of Discharge Medication Sig Dispensed Refills Start Date End Date cetirizine (ZYRTEC) 10 MG tablet Take 1 (one) tablet by mouth once daily as needed ergocalciferol (DRISDOL) 1.25 MG (03920 UT) capsule Take 1 (one) capsule by mouth every 30 days estradiol (Estrace) 0.1 MG/GM vaginal cream Insert 2 g into the vagina Two times a week 07/18/2022 fluticasone propionate (FLONASE) 50 MCG/ACT nasal spray [place] 2 (two) sprays into each nostril once daily hydroxychloroquine (PLAQUENIL) 200 MG tablet Take 2 (two) tablets by mouth once daily 09/02/2021 Pseudoephedrine HCl (SUDAFED PO) Take 1 tablet by mouth as needed B Complex-C (SUPER B COMPLEX PO) Take 1 tablet by mouth once daily 04/14/2023 budesonide (PULMICORT) 0.5 MG/2ML nebulizer suspension Mix one vial in 240 ml of salt water (pt may mix own saline). Irrigate half into each nostril two times/day. 120 mL 5 04/09/2022 01/22/2023 Budesonide Add 1 capsule of 0.5mg or 0.6mg to 240ml saline (patient may mix own saline). Irrigate half in each nostril twice daily. 60 capsule 11 04/27/2021 01/22/2023 Cholecalciferol (VITAMIN D-3) 1000 UNITS Take 1,000 Units by mouth 2 times daily 04/14/2023 clotrimazole (MYCELEX) 10 MG lozenge Take 10 mg by mouth 5 times daily while awake. 04/14/2023 Cyanocobalamin (B-12) 1000 MCG Take 1,000 mcg by mouth once daily 04/14/2023 EPINEPHrine (EPIPEN) 0.3 MG/0.3ML auto-injector pen Inject 0.3 mL into muscle as needed for Anaphylaxis 0.3 mL 01/12/2019 04/14/2023 ibuprofen (ADVIL) 200 MG capsule Take 200 mg by mouth 4 times daily as needed. 04/14/2023 magnesium 250 MG tablet Take 250 mg by mouth once daily 04/14/2023 Ondansetron HCl (ZOFRAN PO) Take 1 tablet by mouth as needed 09/15/2023 pantoprazole EC (PROTONIX) 40 MG tablet Take 1 tablet by mouth once daily 04/14/2023 predniSONE (Deltasone) 10 MG tabletIndications:Rafael al congestion 10mg, 4 tablets for 2 days. Then, 3 tablets for 2 days. Then, 2 tables for 2 days. Then 1 tablet for 2 days. (Total # of Pills: 20 ) 20 tablet 07/25/2022 04/14/2023 Probiotic Product (ALIGN) 4 MG Take 1 capsule by mouth once daily 04/14/2023 rizatriptan (MAXALT) 10 MG tablet Take 1 tablet by mouth once 08/15/2017 04/14/2023 sucralfate (Carafate) 1 GM tablet Take 1 tablet by mouth once daily 06/10/2022 04/14/2023 Tobramycin Add 1 capsule of 20mg to 240ml saline (patient may mix own saline). Irrigate half in each nostril twice daily for 30 days. 0.12 g 2 04/09/2022 01/22/2023 documented as of this encounter Plan of Treatment Upcoming Encounters Date Type Department Care Team (Late st Contact Info) Description 10/19/2024 3:40 PM WINDING LATHE OPERATOR Clinical Support [facility] [address] [place] [phone] 10/26/2024 3:20 PM WINDING LATHE OPERATOR Clinical Support [facility] [address] [place] [phone] 11/02/2024 3:40 PM WINDING LATHE OPERATOR Clinical Support [facility] [address] [place] [phone] 11/09/2024 3:20 PM WINDING LATHE OPERATOR Clinical Support [facility] [address] [place] [phone] documented as of this encounter Procedures Procedure Name Priority Date/Time Associated Diagnosis Comments CULTURE RESPIRATORY+GRAM STAIN (STL) Routine 07/25/2022 4:51 PM CDT Nasal congestion documented in this encounter Results * (ABNORMAL) CULTURE RESPIRATORY+GRAM STAIN (STL) (07/25/2022 4:51 PM CDT) Culture Rare Bacillus species(A) CHERELLE 07/27/2022 3:22 PM CDT [facility] Culture Rare Staphylococcus epidermidis(A) 07/27/2022 3:22 PM CDT [facility] Comment:No further workup pe rformed Gram Stain Moderate Polymorphonuclear cells 07/27/2022 3:22 PM CDT [facility] Gram Stain Light Gram-negative bacilli 07/27/2022 3:22 PM CDT [facility] Microbiology SINUS / Unknown Collection / Unknown 07/25/2022 4:51 PM CDT 07/25/2022 5:51 PM CDT Narrative [facility] - 07/27/2022 3:22 PM CDT Gram-negative bacilli - Organisms seen on initial Gram stain may be anaerobic or not viable for aerobic growth. Grupo Brice MD LAB - MICROBIOLOGY O RDERABLES [facility] [address] [place], [address] [phone] documented in this encounter Visit Diagnoses Diagnosis Nasal congestion- Primary Other diseases of nasal cavity and sinuses documented in this encounter Care Teams Honing Machine Operator Production Relationship Specialty Start Date End Date Jonathan Amado MD [address] [place] [phone] PCP - General Family Medicine 06/24/13 09/14/23 Jonathan Amado MD [facility] [place] [phone] 06/24/13 documented as of this encounter
--- OUTSIDE RECORDS SUMMARY | 2024-10-17 03:07 | XMS_ITS | Encounter Summary ---
Author Organization [facility] Address [facility] [place] [address] Care Team Providers Care Rope Maker Name Role Phone Jonathan Amado MD Primary Care Provider [phone]- [phone] Jonathan Amado MD Unavailable [phone] Encounter Details Date Type Department Care Team (Latest Contact Info) Description 04/14/2023 Travel Social History Tobacco Use Types Packs/Day [...] st Contact Info) Description 10/19/2024 3:40 PM REGISTERED NURSES Clinical Support [facility] [address] [place] [phone] 10/26/2024 3:20 PM REGISTERED NURSES Clinical Support [facility] [address] [place] [phone] 11/02/2024 3:40 PM REGISTERED NURSES Clinical Support [facility] [address] [place] [phone] 11/09/2024 3:20 PM REGISTERED NURSES Clinical Support [facility] [address] [place] [phone] documented as of this encounter Visit Diagnoses Not on filedocumented in this encounter Care Teams Rope Maker Relationship Specialty Start Date End Date Jonathan Amado MD [address] [place] [phone] PCP - General Family Medicine 06/24/13 09/14/23 Jonathan Amado MD [address] [place] [phone] 06/24/13 documented as of this encounter
--- OUTSIDE RECORDS SUMMARY | 2024-10-17 03:07 | XMS_ITS | Encounter Summary ---
Author Organization [facility] Address [facility] [facility] [address] [place] [address] Care Team Providers Care Patient Transport Officer Name Role Phone Jonathan Amado MD Unavailable [phone] Jonathan Amado MD Primary Care Provider [phone] Encounter Details Date Type Department Care Team (Latest Contact Info) Description 10/14/2023 Travel Social History Tobacco Use Types Packs/Day [...] st Contact Info) Description 10/19/2024 3:40 PM ELECTRONEURODIAGNOSTIC TECHNICIAN Clinical Support [facility] [address] [place] [phone] 10/26/2024 3:20 PM ELECTRONEURODIAGNOSTIC TECHNICIAN Clinical Support [facility] [address] [place] [phone] 11/02/2024 3:40 PM ELECTRONEURODIAGNOSTIC TECHNICIAN Clinical Support [facility] [address] [place] [phone] 11/09/2024 3:20 PM ELECTRONEURODIAGNOSTIC TECHNICIAN Clinical Support [facility] [address] [place] [phone] documented as of this encounter Visit Diagnoses Not on filedocumented in this encounter Care Teams Patient Transport Officer Relationship Specialty Start Date End Date Jonathan Amado MD [address] [place] [phone] PCP - General Family Medicine 09/15/23 Jonathan Amado MD [address] [place] [phone] 06/24/13 documented as of this encounter
--- OUTSIDE RECORDS SUMMARY | 2024-10-17 03:07 | XMS_ITS | Encounter Summary ---
Author Organization [facility] Address [facility] [place] [address] Care Team Providers Care Environmental Protection Officer Name Role Phone Jonathan Amado MD Primary Care Provider [phone] Jonathan Amado MD Unavailable [phone] Encounter Details Date Type Department Care Team (Latest Contact Info) Description 06/21/2020 12:22 PM CDT - 06/21/2020 11:59 PM CDT Hospital Encounter [facility] OP DRAW STATION [address] [place] [phone] Grupo Brice MD [address] [place] [address] Discharge Disposition: Home or Self Care Social [...] have Coronavirus / COVID-19? Unable to assess 06/21/2020 12:08 PM CDT documented as of this encounter Medications at Time of Discharge Medication Sig Dispensed Refills Start Date End Date cetirizine (ZYRTEC) 10 MG tablet Take 1 (one) tablet by mouth once daily as needed ergocalciferol (DRISDOL) 1.25 MG (11612 UT) capsule Take 1 (one) capsule by mouth every 30 days fluticasone propionate (FLONASE) 50 MCG/ACT nasal spray [place] 2 (two) sprays into each nostril once daily Pseudoephedrine HCl (SUDAFED PO) Take 1 tablet by mouth as needed B Complex-C (SUPER B COMPLEX PO) Take 1 tablet by mouth once daily 04/14/2023 budesonide (PULMICORT) 0.5 MG/2ML nebulizer suspension Mix one vial in 90-240 ml of salt water (pt may mix own saline). Irrigate half into each nostril two times/day. 120 mL 5 05/02/2020 07/25/2020 Cetirizine-Pseudoephe drine (ZYRTEC-D PO) Take by mouth 2 times daily. 04/24/2021 Cetirizine-Pseudoephe drine (ZYRTEC-D PO) Take 1 Tab by mouth 2 times daily. 04/24/2021 Cholecalciferol (VITAMIN D-3) 1000 UNITS Take 1,000 Units by mouth 2 times daily 04/14/2023 clindamycin (CLEOCIN) 300 MG capsule Take 300 mg by mouth every 8 hours. 07/25/2022 clotrimazole (MYCELEX) 10 MG lozenge Take 10 mg by mouth 5 times daily while awake. 04/14/2023 Cyanocobalamin (B-12) 1000 MCG Take 1,000 mcg by mouth once daily 04/14/2023 EPINEPHrine (EPIPEN) 0.3 MG/0.3ML auto-injector pen Inject 0.3 mL into muscle as needed for Anaphylaxis 0.3 mL 01/12/2019 04/14/2023 hydroxychloroquine (PLAQUENIL) 200 MG tablet Take 1 Tab by mouth 2 times daily. 60 Tab 3 06/24/2013 04/24/2021 ibuprofen (ADVIL) 200 MG capsule Take 200 mg by mouth 4 times daily as needed. Linaclotide (LINZESS PO) Take by mouth as needed. 04/24/2021 magnesium 250 MG tablet Take 250 mg by mouth once daily 04/14/2023 Ondansetron HCl (ZOFRAN PO) Take 1 tablet by mouth as needed 09/15/2023 oxybutynin CR 24hr (DITROPAN-XL) 10 MG tablet Take 10 mg by mouth once daily 3 12/17/2018 04/24/2021 pantoprazole EC (PROTONIX) 40 MG tablet Take 1 tablet by mouth once daily 04/14/2023 predniSONE (DELTASONE) 10 MG tablet 40mg po qam x 4days, 30mg po qam x 4days, 20mg po qam x 4days, 10mg po qam x 4days 30 tablet 05/23/2020 07/25/2020 predniSONE (DELTASONE) 10 MG tablet Take by mouth. 4 tabs for 3 days, then 3 tabs for 3 days, then 2 tabs for 3 days, then one tab for 3 days then stop 07/25/2020 Probiotic Product (ALIGN) 4 MG Take 1 capsule by mouth once daily 04/14/2023 Pyridoxine HCl (B-6) 100 MG Take 100 mg by mouth 021 rizatriptan (MAXALT) 10 MG tablet Take 1 tablet by mouth once 08/15/2017 04/14/2023 rizatriptan (MAXALT) 5 MG tablet Take 5 mg by mouth once as needed. 07/25/2022 Tobramycin Add 1 capsule of 20mg to 240ml saline (patient may mix own saline). Irrigate half in each nostril twice daily for 30 days. 0.12 g 06/20/2020 07/25/2020 documented as of this encounter Plan of Treatment Upcoming Encounters Date Type Department Care Team (Late st Contact Info) Description 10/19/2024 3:40 PM UNDER CUTTER Clinical Support [facility] [address] [place] [phone] 10/26/2024 3:20 PM UNDER CUTTER Clinical Support [facility] [address] [place] [phone] 11/02/2024 3:40 PM UNDER CUTTER Clinical Support [facility] [address] [place] [phone] 11/09/2024 3:20 PM UNDER CUTTER Clinical Support [facility] [address] [place] [phone] documented as of this encounter Procedures Procedure Name Priority Date/Time Associated Diagnosis Comments CULTURE TISSUE+GRAM STAIN Routine 06/20/2020 5:00 PM CDT Nasal congestion Chronic maxillary sinusitis documented in this encounter Results * (ABNORMAL) CULTURE TISSUE+GRAM STAIN (06/20/2020 5:00 PM CDT) Culture Light Streptococcus pneumoniae(AA) CHERELLE 06/23/2020 10:40 AM CDT [facility] Gram Stain Moderate Polymorphonuclear cells 06/23/2020 10:40 AM CDT [facility] Gram Stain No organisms seen 020 10:40 AM CDT [facility] Microbiology ENTIRE NASAL TURBINATE / Unknown Collection / Unknown 06/20/2020 5:00 PM CDT 06/21/2020 1:36 PM CDT Narrative [facility] - 06/23/2020 10:40 AM CDT For [...] Brice MD LAB - MICROBIOLOGY O RDERABLES [facility] [address] [place], [place] [address], [facility] [phone] documented in this encounter Visit Diagnoses Diagnosis Nasal congestion- Primary Other diseases of nasal cavity and sinuses Chronic maxillary sinusitis documented in this encounter Care Teams Environmental Protection Officer Relationship Specialty Start Date End Date Jonathan Amado MD [address] [place] [phone] PCP - General Family Medicine 06/24/13 09/14/23 Jonathan Amado MD [facility] [place] [phone] 06/24/13 documented as of this encounter
--- OUTSIDE RECORDS SUMMARY | 2024-10-17 03:07 | XMS_ITS | Encounter Summary ---
Author Organization [facility] Address [address] [facility] [place] [address] Care Team Providers Care Light Rail Transit Operator Name Role Phone Jonathan Amado MD Primary Care Provider [phone]- [phone] Jonathan Amado MD Unavailable [phone] Reason for Visit * Reason Comments Immunotherapy Encounter Details Date Type Department Care Team (Latest Contact Info) Description 01/26/2019 3:30 PM CDT Clinical Support [facility] Otolaryngology [address] [address] Allergic rhinitis due to pollen, unspecified seasonality [...] Progress Notes * Ai Lomeli, RN - 01/26/2019 4:05 PM CDT Serum calculations have been reviewed by Dr. Arellano. Serum compounded into 7 individual dose vialsand kept at [facility] for injections. Date Tree Mix Martin Mix Mold Mix Phenol Normal Saline SIGNATURE AND LOCATION 10/21/2018 0.25 0.12 0.12 0.25 Right upper arm SQ on 10/27 -am 10/28/2018 0.25 0.25 0.25 Right upper arm SQ 11/11 sb 11/11/2018 0.25 0.25 0.25 Right upper arm SQ-sb 11/2411/24/2018 0.25 0.25 0.25 Right upper arm SQ on 12/08 -am 12/09/2018 0.25 0.25 0.25 Right upper arm SQ-sb 12/2912/23/2018 0.25 0.25 0.25 Right upper arm SQ on 01/12am 01/06/2019 0.25 0.25 0.25 Right upper arm SQ on 01/26 -am Department of Otolaryngology Head and Neck Surgery Patient Name: Pina Reynaga : 1970 Date: 01/26/2019 1. Did you bring your Epi-pen with you to clinic today? Yes 2. How are you feeling today? Pretty good 3. How have you been feeling since your last shot? OK A. What symptoms do you have? none B. When do you have these symptoms? n/a C. Are your symptoms mild, moderate or severe? n/a 4. How has your asthma been? n/a 5. Are you having trouble breathing today? No 6. Have you had any problems with angioedema? No 7. Any local reactions from your last shot? No 8. Are you on any beta margy antihypertensives? No 9. Have you taken any antihistamines since your last visit? Yes: daily 10. Do you have a temperature >101? no Injection time: 1605 Site: Right Upper Arm SQ Vial Contents diluted with 0.5ml Normal Saline no No injection given due to Reaction: No Action taken: Reviewed treatment for local reaction including call office for reaction > 2 inches. Reviewed use epi-pen for signs of anaphylaxis, and call 911. Pt acknowledges understanding. 1640 Time ambulatory from clinic in no distress, color pink, respiratory unlabored, steady on feet,voices no complaints. documented in this encounter Plan of Treatment Upcoming Encounters Date Type Department Care Team (Late st Contact Info) Description 10/19/2024 3:40 PM HOUSEKEEPING ROOM ATTENDANT Clinical Support [facility] [address] [place] [phone] 10/26/2024 3:20 PM HOUSEKEEPING ROOM ATTENDANT Clinical Support [facility] [address] [place] [phone] 11/02/2024 3:40 PM HOUSEKEEPING ROOM ATTENDANT Clinical Support [facility] [address] [place] [phone] 11/09/2024 3:20 PM HOUSEKEEPING ROOM ATTENDANT Clinical Support [facility] [address] [place] [phone] documented as of this encounter Visit Diagnoses Diagnosis Allergic rhinitis due to pollen, unspecified seasonality- Primary documented in this encounter Care Teams Light Rail Transit Operator Relationship Specialty Start Date End Date Jonathan Amado MD [address] [place] [phone] PCP - General Family Medicine 06/24/13 09/14/23 Jonathan Amado MD [facility] [place] [address] 06/24/13 documented as of this encounter
--- OUTSIDE RECORDS SUMMARY | 2024-10-17 03:07 | XMS_ITS | Encounter Summary ---
Author Organization [facility] Address [address] [facility] [place] [address] Care Team Providers Care Claims Adjustor Name Role Phone Jonathan Amado MD Primary Care Provider [phone] Jonathan Amado MD Unavailable [phone] Reason for Visit * Reason Comments Immunotherapy Encounter Details Date Type Department Care Team (Latest Contact Info) Description 02/16/2019 3:30 PM CDT Clinical Support [facility] Otolaryngology [address] [address] Allergic rhinitis, unspecified seasonality, unspecified trigger Social [...] * Patient Instructions* Charleen North RN - 02/17/2019 7:57 AM CDT Reviewed treatment for local reaction including [...] closest Emergency Department. Please inform office at [phone] ([facility] office nurse line) after you have been treated. documented in this encounter Progress Notes * Charleen North RN - 02/17/2019 7:55 AM CDT Serum calculations have been reviewed by Dr. Arellano. Serum compounded into 7 individual dose vialsand mailed to patient. Date Tree Mix [place] Mix Mold Mix Phenol Normal Saline SIGNATURE AND LOCATION 02/09/2019 0.12 0.12 0.12 0.40 Right upper arm SQ-sb 02/1602/16/2019 0.25 0.25 0.25 03/02/2019 0.25 0.25 0.25 03/16/2019 0.25 0.25 0.25 03/30/2019 0.25 0.25 0.25 04/13/2019 0.25 0.25 0.25 04/27/2019 0.25 0.25 0.25 Due to a change in the [place], [place], [place], [place], [place], [place], [place], Hormodendrum, Aspergillus,Marita, Mucor, and Feather extract industry consultant, the initial dose of the serieswill be adjusted per industry consultant's recommendation. An additional vial will be made to accommodate the adjusted dose. Department of Otolaryngology Head and Neck Surgery Patient Name: Pina Reynaga : 1970 Date: 02/17/2019 1. Did you bring your Epi-pen with you to clinic today? Yes 2. How are you feeling today? fine 3. How have you been feeling since your last shot? good A. What symptoms do you have? Stomach problems B. When do you have these symptoms? All day C. Are your symptoms mild, moderate or severe? mild 4. How has your asthma been? n/a A. Is your asthma controlled or uncontrolled? Controlled B. Have you had any recent attacks? No 5. Are you having trouble breathing today? No 6. Have you had any problems with angioedema? No 7. Any local reactions from your last shot? No 8. Are you on any beta margy antihypertensives? No 9. Have you taken any antihistamines since your last visit? Yes: 10. Do you have a temperature >101? no Injection time: 1540 Site: Right Upper Arm SQ Vial Contents diluted with 0.5ml Normal Saline no No injection given due to Reaction: No Action taken: n/a 1600 Time ambulatory form clinic in no distress, color pink, respiratory unlabored, steady on feet,voices no complaints. documented in this encounter Plan of Treatment Upcoming Encounters Date Type Department Care Team (Late st Contact Info) Description 10/19/2024 3:40 PM DOCTOR OF OSTEOPATHY Clinical Support [facility] [address] [place] [phone] 10/26/2024 3:20 PM DOCTOR OF OSTEOPATHY Clinical Support [facility] [address] [place] [phone] 11/02/2024 3:40 PM DOCTOR OF OSTEOPATHY Clinical Support [facility] [address] [place] [phone] 11/09/2024 3:20 PM DOCTOR OF OSTEOPATHY Clinical Support [facility] [address] [place] [phone] documented as of this encounter Visit Diagnoses Diagnosis Allergic rhinitis, unspecified seasonality, unspecified trigger- Primary documented in this encounter Care Teams Claims Adjustor Relationship Specialty Start Date End Date Jonathan Amado MD [address] [place] [phone] PCP - General Family Medicine 06/24/13 09/14/23 Jonathan Amado MD [facility] [place] [address] 06/24/13 documented as of this encounter
--- OUTSIDE RECORDS SUMMARY | 2024-10-17 03:07 | XMS_ITS | Encounter Summary ---
Author Organization [facility] Address [facility] [place] [address] Care Team Providers Care Lpta Name Role Phone Jonathan Amado MD Primary Care Provider [phone]- [phone] Jonathan Amado MD Unavailable [phone] Reason for Visit * Reason Onset Date Comments Refill Request 07/26/2022 [facility] Encounter Details Date Type Department Care Team (Late st Contact Info) Description 07/26/2022 Telephone [facility] [address] [facility], [address] [place] [address] Grupo Brice MD [address] [place] [address] [place] [address] Refill Request ([facility]) Social History Tobacco Use Types Packs/Day Years [...] encounter Miscellaneous Notes * Telephone Encounter - Lennie Chen - 07/26/2022 12:07 PM CDT Verbal order to send in budesonide 0.6 mg topical irrigation BID for 30 days with one refill and tobramycin 20 mg topical irrigation BID for 30 days with one refill. RX faxed to [facility]. Fax confirmation received. documented in this encounter Plan of Treatment Upcoming Encounters Date Type Department Care Team (Late st Contact Info) Description 10/19/2024 3:[address] OF [address] SUPERVISOR Clinical Support [facility] [address] [place] [phone] 10/26/2024 3:[address] SUPERVISOR Clinical Support [facility] [address] [place] [phone] 11/02/2024 3:[address] SUPERVISOR Clinical Support [facility] [address] [place] [phone] 11/09/2024 3:[address] SUPERVISOR Clinical Support [facility] [address] [place] [phone] documented as of this encounter Visit Diagnoses Not on filedocumented in this encounter Care Teams Lpta Relationship Specialty Start Date End Date Jonathan Amado MD [address] [place] [phone] PCP - General Family Medicine 06/24/13 09/14/23 Jonathan Amado MD [address] [place] [phone] 06/24/13 documented as of this encounter
--- OUTSIDE RECORDS SUMMARY | 2024-10-17 03:07 | XMS_ITS | Encounter Summary ---
Author Organization [facility] Address [address] [facility] [place] [address] Care Team Providers Care Sprinkler Worker Name Role Phone Jonathan Amado MD Primary Care Provider [phone]- [phone] Jonathan Amado MD Unavailable [phone] Reason for Visit * Reason Comments Immunotherapy Encounter Details Date Type Department Care Team (Latest Contact Info) Description 01/12/2019 3:30 PM CDT Clinical Support [facility] Otolaryngology [address] [place] [address] [address] Allergic rhinitis due to pollen, unspecified seasonality [...] Progress Notes * Ai Lomeli, RN - 01/12/2019 3:35 PM CDT Serum calculations have been reviewed by Dr. Arellano. Serum compounded into 7 individual dose vialsand kept at [facility] for injections. Date Tree Mix [place] Mix Mold Mix Phenol Normal Saline SIGNATURE [...] 0.25 0.25 Right upper arm SQ on 01/12 -am 01/06/2019 0.25 0.25 0.25 Department of Otolaryngology Head and Neck Surgery Patient Name: Pina Reynaga : 1970 Date: 01/12/2019 1. Did you bring your Epi-pen with you to clinic today? Yes, will in January. Refill authorized per Otolaryngology Protocol 04/2018. 2. How are you feeling today? So-so, fine allergy-ventura 3. How have you been feeling since your last shot? fine A. What symptoms do you have? None [...] anaphylaxis, and call 911. Pt acknowledges understanding. 1555 Time ambulatory from clinic in no distress, color pink, respiratory unlabored, steady on feet,voices no complaints. documented in this encounter Plan of Treatment Upcoming Encounters Date Type Department Care Team (Late st Contact Info) Description 10/19/2024 3:40 PM ORACLE DISTRIBUTION CONSULTANT Clinical Support [facility] [address] [place] [phone] 10/26/2024 3:20 PM ORACLE DISTRIBUTION CONSULTANT Clinical Support [facility] [address] [place] [phone] 11/02/2024 3:40 PM ORACLE DISTRIBUTION CONSULTANT Clinical Support [facility] [address] [place] [phone] 11/09/2024 3:20 PM ORACLE DISTRIBUTION CONSULTANT Clinical Support [facility] [address] [place] [phone] documented as of this encounter Visit Diagnoses Diagnosis Allergic rhinitis due to pollen, unspecified seasonality- Primary documented in this encounter Care Teams Sprinkler Worker Relationship Specialty Start Date End Date Jonathan Amado MD [address] [place] [phone] PCP - General Family Medicine 06/24/13 09/14/23 Jonathan Amado MD [address] [place] [phone] 06/24/13 documented as of this encounter
--- OUTSIDE RECORDS SUMMARY | 2024-10-17 03:07 | XMS_ITS | Encounter Summary ---
Author Organization [facility] Address [address] [place] [address] Care Team Providers Care Bee Producer Name Role Phone Jonathan Amado MD Primary Care Provider [phone] Jonathan Amado MD Unavailable [phone] Reason for Visit * Reason Onset Date Comments Results 03/23/2019 Encounter Details Date Type Department Care Team (Late st Contact Info) Description 03/23/2019 Telephone [facility] [address] [place] [address] Sarika Edwards MD [address] [place] [address] Results Social History Tobacco Use Types Packs/Day [...] encounter Miscellaneous Notes * Telephone Encounter - Sarika Edwards MD - 03/23/2019 1:37 AM CDT Returned call to pt - she was calling asking about recent lab - Lab showed + FABIAN -- which had been seen previously of unclear significance - Pt had a hive like rash at the last visit - I wondered about auto immune thyroid dx - but testing was neg Pt also had elevated CK and LDH - which she has had previously - she told me that she has noted theCK increases when the rash appears - she was seen at the [facility] neuromuscular division but no etiologywas determined for the elevated muscle enzymes or the + FABIAN She has been seen in ENT here at [facility] and has had allergy shots - she has also had rhinoscopy had has had fungal infections in her sinuses and has had to have therapy and procedures - She was seen several years ago (2014) at [facility] when Immunoglobulin levels were done - the IgA was decbut others were nl - she tells me that they discussed therapy with IVIG but her levels were not lowenough to justify treatment at that time. IgG was 873 then - IgA 66.4 She had MRSA in the past and was seen by an ID dr at [facility] - she saw him recently and he wanted to have her rash biopsied but by the time she saw Derm the rash was gone - she is to call when the rash re-appears. She also has many UTIs per her hx - Given these infections over time - and recurrent sinus fungal infections - and the low IgG and IgA levels recently - I wonder if she should be seen in immunology to consider IVIG therapy -I recommended that she discuss this with ENT - They have been giving her allergy shots - which may be helping but not if her issue is recurrent infections - she may need both - but that would be for them to determine - I am hesitant to think that there is an auto- immune cause of her sx at this time - I am more suspicious that the FABIAN is positive because of the infections causing a positive result that is not necessarily clinically significant. - documented in this encounter Plan of Treatment Upcoming Encounters Date Type Department Care Team (Late st Contact Info) Description 10/19/2024 3:40 PM SURGEON CHIEF Clinical Support [facility] [address] [place] [phone] 10/26/2024 3:20 PM SURGEON CHIEF Clinical Support [facility] [address] [place] [phone] 11/02/2024 3:40 PM SURGEON CHIEF Clinical Support [facility] [address] [place] [phone] 11/09/2024 3:20 PM SURGEON CHIEF Clinical Support [facility] [address] [place] [phone] documented as of this encounter Visit Diagnoses Not on filedocumented in this encounter Care Teams Bee Producer Relationship Specialty Start Date End Date Jonathan Amado MD [address] [place] [phone] PCP - General Family Medicine 06/24/13 09/14/23 Jonathan Amado MD [facility] [place] [phone] 06/24/13 documented as of this encounter
--- OUTSIDE RECORDS SUMMARY | 2024-10-17 03:07 | XMS_ITS | Encounter Summary ---
Author Organization [facility] Address [facility] [facility] [place] [address] Care Team Providers Care Compliance Officer Name Role Phone Jonathan Amado MD Unavailable [phone] Jonathan Amado MD Primary Care Provider [phone] Encounter Details Date Type Department Care Team (Latest Contact Info) Description 10/07/2023 Travel Social History Tobacco Use Types Packs/Day [...] st Contact Info) Description 10/19/2024 3:40 PM CORRECTION OFFICER HEAD Clinical Support [facility] [address] [place] [phone] 10/26/2024 3:20 PM CORRECTION OFFICER HEAD Clinical Support [facility] [address] [place] [phone] 11/02/2024 3:40 PM CORRECTION OFFICER HEAD Clinical Support [facility] [address] [place] [phone] 11/09/2024 3:20 PM CORRECTION OFFICER HEAD Clinical Support [facility] [address] [place] [phone] documented as of this encounter Visit Diagnoses Not on filedocumented in this encounter Care Teams Compliance Officer Relationship Specialty Start Date End Date Jonathan Amado MD [address] [place] [phone] PCP - General Family Medicine 09/15/23 Jonathan Amado MD [address] [place] [phone] 06/24/13 documented as of this encounter
--- OUTSIDE RECORDS SUMMARY | 2024-10-17 03:07 | XMS_ITS | Encounter Summary ---
Author Organization [facility] Address [facility] [facility] [address] [place] [address] Care Team Providers Care Pmo Lead Name Role Phone Jonathan Amado MD Unavailable [phone] Jonathan Amado MD Primary Care Provider [phone] Encounter Details Date Type Department Care Team (Latest Contact Info) Description 09/30/2023 Travel Social History Tobacco Use Types Packs/Day [...] st Contact Info) Description 10/19/2024 3:40 PM MATTRESS INSPECTOR Clinical Support [facility] [address] [place] [phone] 10/26/2024 3:20 PM MATTRESS INSPECTOR Clinical Support [facility] [address] [place] [phone] 11/02/2024 3:40 PM MATTRESS INSPECTOR Clinical Support [facility] [address] [place] [phone] 11/09/2024 3:20 PM MATTRESS INSPECTOR Clinical Support [facility] [address] [place] [phone] documented as of this encounter Visit Diagnoses Not on filedocumented in this encounter Care Teams Pmo Lead Relationship Specialty Start Date End Date Jonathan Amado MD [address] [place] [phone] PCP - General Family Medicine 09/15/23 Jonathan Amado MD [address] [place] [phone] 06/24/13 documented as of this encounter
--- OUTSIDE RECORDS SUMMARY | 2024-10-17 03:07 | XMS_ITS | Encounter Summary ---
Author Organization [facility] Address [address] [facility] [place] [address] Care Team Providers Care Recreation Teacher Name Role Phone Jonathan Amado MD Unavailable [phone] Jonathan Amado MD Primary Care Provider [phone]- [phone] Encounter Details Date Type Department Care Team (Latest Contact Info) Description 09/30/2023 3:40 PM MASTER NAVAL PARACHUTIST Clinical Support [facility] [address] [place] [phone] Allergic rhinitis due to pollen, unspecified [...] Progress Notes * Niru Valera MA - 09/30/2023 3:24 PM CST This person is taking immunotherapy for previously diagnosed allergic rhinitis. Serum calculations have been reviewed by Dr. Ventura on . Allergy Individual Dosing Allergy extracts mixed: 09/24/2023 and 6 months after date mixed. date [place] mix Mold mix Phenol saline Vial in series verified with Signature and location 09/30/2023 0.05 0.05 0.40 pt Right upper arm SQ-ar 10/07/2023 0.07 0.10 0.35 10/16/2023 0.10 0.15 0.30 10/21/2023 0.12 0.20 0.25 10/28/2023 0.15 0.25 0.20 11/04/2022 0.17 0.25 0.15 11/11/2022 0.20 0.25 0.10 11/18/2022 0.22 0.25 0.05 11/25/2022 0.25 0.25 0.00 12/02/2022 0.25 0.25 0.00 12/09/2022 0.25 0.25 0.00 Physician in office: Dr. Pantoja Department of Otolaryngology Head and Neck Surgery Patient Name: Pina Reynaga : 1970 Date: 09/30/2023 1. Did you bring your Epi-pen with you to clinic today? Yes 2. How are you feeling today? good 3. How have you been feeling since your last shot? n/a A. What symptoms do you have? no B. When do you have these symptoms? n/a C. Are your symptoms mild, moderate or severe? n/a 4. How has your asthma been? Yes, but its off and on A. Is your asthma controlled or uncontrolled? Controlled B. Have you had any recent attacks? No 5. Are you having trouble breathing today? No 6. Have you had any problems with angioedema? No 7. Any local reactions from your last shot? No, this is the initial shot 8. Are you on any beta margy antihypertensives? No 9. Have you taken any antihistamines since your last visit? No 10. Do you have a temperature >101? no Injection time: 1531 Site: Right Upper Arm SQ Vial Contents diluted with 0.5ml Normal Saline yes No injection given due to Reaction: No Action taken: none 1558 Time ambulatory form clinic in no distress, color pink, respiratory unlabored, steady on feet,voices no complaints. ER NAVAL PARACHUTIST documented in this encounter Plan of Treatment Upcoming Encounters Date Type Department Care Team (Late st Contact Info) Description 10/19/2024 3:40 PM MASTER NAVAL PARACHUTIST Clinical Support [facility] [address] [place] [phone] 10/26/2024 3:20 PM MASTER NAVAL PARACHUTIST Clinical Support [facility] [address] [place] [phone] 11/02/2024 3:40 PM MASTER NAVAL PARACHUTIST Clinical Support [facility] [address] [place] [phone] 11/09/2024 3:20 PM MASTER NAVAL PARACHUTIST Clinical Support [facility] [address] [place] [phone] documented as of this encounter Visit Diagnoses Diagnosis Allergic rhinitis due to pollen, unspecified seasonality- Primary documented in this encounter Care Teams Recreation Teacher Relationship Specialty Start Date End Date Jonathan Amado MD [address] [place] [phone] PCP - General Family Medicine 09/15/23 Jonathan Amado MD [address] [place] [phone] 06/24/13 documented as of this encounter
--- OUTSIDE RECORDS SUMMARY | 2024-10-17 03:07 | XMS_ITS | Encounter Summary ---
Author Organization [facility] Address [address] [facility] [place] [address] Care Team Providers Care Signal Worker Helper Name Role Phone Jonathan Amado MD Unavailable [phone] Jonathan Amado MD Primary Care Provider [phone] Encounter Details Date Type Department Care Team (Latest Contact Info) Description 10/07/2023 3:40 PM MANAGER PRIVACY Clinical Support [facility] [address] [place] [phone] Seasonal allergic rhinitis due to pollen [...] encounter Progress Notes * Ryanne Amaya - 10/07/2023 3:21 PM CST This person is taking immunotherapy for previously diagnosed allergic rhinitis. Serum calculations have been reviewed by Dr. Ventura on . Allergy Individual Dosing Allergy extracts mixed: 09/24/2023 and 6 months after date mixed. date [place] mix Mold mix Phenol saline Vial in series verified with Signature and location 09/30/2023 0.05 0.05 0.40 pt Right upper arm SQ-ar 10/07/2023 0.07 0.10 0.35 pt Right upper arm SQ-ls 10/14/2023 0.10 0.15 0.30 10/21/2023 0.12 0.20 0.25 10/28/2023 0.15 0.25 0.20 11/04/2022 0.17 0.25 0.15 11/11/2022 0.20 0.25 0.10 11/18/2022 0.22 0.25 0.05 11/25/2022 0.25 0.25 0.00 12/02/2022 0.25 0.25 0.00 12/09/2022 0.25 0.25 0.00 Epipen exp 12/2024 Physician in office: Dr. Pantoja Department of Otolaryngology Head and Neck Surgery Patient Name: Pina Reynaga : 1970 Date: 10/07/2023 1. Did you bring your Epi-pen with you to clinic today? Yes 2. How are you feeling today? good 3. How have you been feeling since your last shot? good A. What symptoms do you have? no [...] yes No injection given due to Reaction: 1.5 inch redness with approx. 5 mm wheal. Benadryl cream applied to site, Zyrtec given topatient in office. If bothersome to apply more benadryl cream and ice if needed. Instructed patientto take an antihistamine prior to getting allergy shot from here on out. Action taken: Reviewed protocol and use of Epipen/AuviQ for signs of anaphylaxis and need to call 911. Patient acknowledges and understands. Patient practiced with regional trainer. Reviewed treatment for local reactions including calling office for reactions > 2 inches. 1558 Time ambulatory form clinic in no distress, color pink, respiratory unlabored, steady on feet,voices no complaints. GER PRIVACY documented in this encounter Plan of Treatment Upcoming Encounters Date Type Department Care Team (Late st Contact Info) Description 10/19/2024 3:40 PM MANAGER PRIVACY Clinical Support [facility] [address] [place] [phone] 10/26/2024 3:20 PM MANAGER PRIVACY Clinical Support [facility] [address] [place] [phone] 11/02/2024 3:40 PM MANAGER PRIVACY Clinical Support [facility] [address] [place] [phone] 11/09/2024 3:20 PM MANAGER PRIVACY Clinical Support [facility] [address] [place] [phone] documented as of this encounter Visit Diagnoses Diagnosis Seasonal allergic rhinitis due to pollen- Primary documented in this encounter Care Teams Signal Worker Helper Relationship Specialty Start Date End Date Jonathan Amado MD [address] [place] [phone] PCP - General Family Medicine 09/15/23 Jonathan Amado MD [address] [place] [phone] 06/24/13 documented as of this encounter
--- OUTSIDE RECORDS SUMMARY | 2024-10-17 03:07 | XMS_ITS | Encounter Summary ---
Author Organization [facility] Address [address] [facility] [place] [address] Care Team Providers Care Sagger Soak Name Role Phone Jonathan Amado MD Primary Care Provider [phone] Jonathan Amado MD Unavailable [phone] Reason for Visit * Reason Onset Date Comments Immunotherapy 03/18/2019 will stop SCIT Encounter Details Date Type Department Care Team (Late st Contact Info) Description 03/18/2019 Telephone [facility] [address] [address] Ai Lomeli, RN Immunotherapy (will stop SCIT) Social History Tobacco Use Types Packs/Day Years [...] Miscellaneous Notes * Telephone Encounter - Ai Lomeli RN - 05/10/2019 3:29 PM CDT 05/10/19 states has been instructed to stop SCIT, by Dr. Duncan immunology / ID at [facility]. 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 Requested call for ENT needs or appt. * Telephone Encounter - Ai Lomeli RN - 03/18/2019 10:45 AM CDT Returned call to pt (had called 03/17 at 1400): Pt has been ill, nauseated all the time, bad headaches at temples (no relief with Maxalt), chest pain, rash at bilat legs for 3 weeks again just finally cleared up, and swelling at feet and ankles,so has not been in for SCIT. Had same rash at legs in Jun and December. Also sees Dr. Adames (ID MD at [facility]) And Dr. Edwards at [facility], who is retiring; she may start seeing superintendent service at [facility]. Pt is wondering if she should continue SCIT, and if so, how to restart. Noted last SCIT 02/16/19. Case discussed with Dr. Arellano including lab testing results (FABIAN, CK, others) and call returned to patient at 1300: OK to continue IT if OK with rheumatology; pt will check. When pt comes in for next SCIT, vial test as per [facility] allergy protocol. Reviewed pt has done IT for 3 1/2 years, agrees has helped with symptoms, would be OK to stop. Patient acknowledges understanding. documented in this encounter Plan of Treatment Upcoming Encounters Date Type Department Care Team (Late st Contact Info) Description 10/19/2024 3:40 PM ORTHODONTIST VICE PRESIDENT Clinical Support [facility] [address] [place] [phone] 10/26/2024 3:20 PM ORTHODONTIST VICE PRESIDENT Clinical Support [facility] [address] [place] [phone] 11/02/2024 3:40 PM ORTHODONTIST VICE PRESIDENT Clinical Support [facility] [address] [place] [phone] 11/09/2024 3:20 PM ORTHODONTIST VICE PRESIDENT Clinical Support [facility] [address] [place] [phone] documented as of this encounter Visit Diagnoses Not on filedocumented in this encounter Care Teams Sagger Soak Relationship Specialty Start Date End Date Jonathan Amado MD [address] [place] [phone] PCP - General Family Medicine 06/24/13 09/14/23 Jonathan Amado MD [address] [place] [phone] 06/24/13 documented as of this encounter
--- OUTSIDE RECORDS SUMMARY | 2024-10-17 03:07 | XMS_ITS | Encounter Summary ---
Author Organization [facility] Address [address] [facility] [place] [address] Care Team Providers Care Edi Developer Name Role Phone Jonathan Amado MD Unavailable [phone] Jonathan Amado MD Primary Care Provider [phone] Reason for Visit * Reason Comments Immunotherapy Allergy shot Encounter Details Date Type Department Care Team (Latest Contact Info) Description 10/14/2023 2:20 PM AGRICULTURAL RESEARCH TECHNOLOGIST Clinical Support [facility] [address] [place] [phone] Seasonal allergic rhinitis due to pollen Social [...] encounter Progress Notes * Ryanne Amaya - 10/14/2023 2:25 PM CST This person is taking immunotherapy for previously diagnosed allergic rhinitis. Serum calculations have been reviewed by Dr. Ventura on . Allergy Individual Dosing Allergy extracts mixed: 09/24/2023 and 6 months after date mixed. date [place] mix Mold mix Phenol saline Vial in series verified with Signature and location 09/30/2023 0.05 0.05 0.40 pt Right upper arm SQ-ar 10/07/2023 0.07 0.10 0.35 pt Right upper arm SQ-ls 10/14/2023 0.10 0.15 0.30 pt Right upper arm SQ-ls 10/21/2023 0.12 0.20 0.25 10/28/2023 0.15 0.25 0.20 11/04/2022 0.17 0.25 0.15 11/11/2022 0.20 0.25 0.10 11/18/2022 0.22 0.25 0.05 11/25/2022 0.25 0.25 0.00 12/02/2022 0.25 0.25 0.00 12/09/2022 0.25 0.25 0.00 Epipen exp 12/2024 Physician in office: Dr. Pantoja Department of Otolaryngology Head and Neck Surgery Patient Name: Pina Reynaga : 1970 Date: 10/14/2023 1. Did you bring your Epi-pen with [...] have a temperature >101? no Injection time: 1428 Site: Right Upper Arm SQ Vial Contents diluted with 0.5ml Normal Saline yes Reaction:Action taken: On previous visit reviewed protocol and use of Epipen/AuviQ for signs of anaphylaxis and need to call 911. Patient acknowledges and understands. Patient practiced with senior trainer. Reviewed treatment for local reactions including calling office for reactions > 2 inches. 1548 Time ambulatory form clinic in no distress, color pink, respiratory unlabored, steady on feet,voices no complaints. CULTURAL RESEARCH TECHNOLOGIST documented in this encounter Plan of Treatment Upcoming Encounters Date Type Department Care Team (Late st Contact Info) Description 10/19/2024 3:40 PM AGRICULTURAL RESEARCH TECHNOLOGIST Clinical Support [facility] [address] [place] [phone] 10/26/2024 3:20 PM AGRICULTURAL RESEARCH TECHNOLOGIST Clinical Support [facility] [address] [place] [phone] 11/02/2024 3:40 PM AGRICULTURAL RESEARCH TECHNOLOGIST Clinical Support [facility] [address] [place] [phone] 11/09/2024 3:20 PM AGRICULTURAL RESEARCH TECHNOLOGIST Clinical Support [facility] [address] [place] [phone] documented as of this encounter Visit Diagnoses Diagnosis Seasonal allergic rhinitis due to pollen- Primary documented in this encounter Care Teams Edi Developer Relationship Specialty Start Date End Date Jonathan Amado MD [address] [place] [phone] PCP - General Family Medicine 09/15/23 Jonathan Amado MD [address] [place] [phone] 06/24/13 documented as of this encounter
--- OUTSIDE RECORDS SUMMARY | 2024-10-17 03:07 | XMS_ITS | Encounter Summary ---
Author Organization [facility] Address [facility] [place] [address] Care Team Providers Care Welding Tester Name Role Phone Jonathan Amado MD Primary Care Provider [phone] Jonathan Amado MD Unavailable [phone] Encounter Details Date Type Department Care Team (Latest Contact Info) Description 06/21/2020 Travel Social History Tobacco Use Types Packs/Day [...] PM CDT documented as of this encounter Plan of Treatment Upcoming Encounters Date Type Department Care Team (Late st Contact Info) Description 10/19/2024 3:40 PM BURIAL VAULT DELIVERER AND INSTALLER Clinical Support [facility] [address] [place] [phone] 10/26/2024 3:20 PM BURIAL VAULT DELIVERER AND INSTALLER Clinical Support [facility] [address] [place] [phone] 11/02/2024 3:40 PM BURIAL VAULT DELIVERER AND INSTALLER Clinical Support [facility] [address] [place] [phone] 11/09/2024 3:20 PM BURIAL VAULT DELIVERER AND INSTALLER Clinical Support [facility] [address] [place] [phone] documented as of this encounter Visit Diagnoses Not on filedocumented in this encounter Care Teams Welding Tester Relationship Specialty Start Date End Date Jonathan Amado MD [address] [place] [phone] PCP - General Family Medicine 06/24/13 09/14/23 Jonathan Amado MD [facility] [place] [phone] 06/24/13 documented as of this encounter
--- OUTSIDE RECORDS SUMMARY | 2024-10-17 03:07 | XMS_ITS | Encounter Summary ---
Author Organization [facility] Address [facility] [facility] [place] [address] Care Team Providers Care Sales And Events Coordinator Name Role Phone Jonathan Amado MD Unavailable [phone] Jonathan Amado MD Primary Care Provider [phone] Encounter Details Date Type Department Care Team (Latest Contact Info) Description 10/28/2023 Travel Social History Tobacco Use Types Packs/Day [...] st Contact Info) Description 10/19/2024 3:40 PM WET PROCESS ASSISTANT HEAD MILLER Clinical Support [facility] [address] [place] [phone] 10/26/2024 3:20 PM WET PROCESS ASSISTANT HEAD MILLER Clinical Support [facility] [address] [place] [phone] 11/02/2024 3:40 PM WET PROCESS ASSISTANT HEAD MILLER Clinical Support [facility] [address] [place] [phone] 11/09/2024 3:20 PM WET PROCESS ASSISTANT HEAD MILLER Clinical Support [facility] [address] [place] [phone] documented as of this encounter Visit Diagnoses Not on filedocumented in this encounter Care Teams Sales And Events Coordinator Relationship Specialty Start Date End Date Jonathan Amado MD [address] [place] [phone] PCP - General Family Medicine 09/15/23 Jonathan Amado MD [address] [place] [phone] 06/24/13 documented as of this encounter
--- OUTSIDE RECORDS SUMMARY | 2024-10-17 03:07 | XMS_ITS | Encounter Summary ---
Author Organization [facility] Address [facility] [place] [address] Care Team Providers Care Blade Changer Name Role Phone Jonathan Amado MD Primary Care Provider [phone] Jonathan Amado MD Unavailable [phone] Encounter Details Date Type Department Care Team (Latest Contact Info) Description 05/24/2020 Travel Social History Tobacco Use Types Packs/Day [...] AM CDT documented as of this encounter Plan of Treatment Upcoming Encounters Date Type Department Care Team (Late st Contact Info) Description 10/19/2024 3:40 PM FIRST PRESS OPERATOR Clinical Support [facility] [address] [place] [phone] 10/26/2024 3:20 PM FIRST PRESS OPERATOR Clinical Support [facility] [address] [place] [phone] 11/02/2024 3:40 PM FIRST PRESS OPERATOR Clinical Support [facility] [address] [place] [phone] 11/09/2024 3:20 PM FIRST PRESS OPERATOR Clinical Support [facility] [address] [place] [phone] documented as of this encounter Visit Diagnoses Not on filedocumented in this encounter Care Teams Blade Changer Relationship Specialty Start Date End Date Jonathan Amado MD [facility] [place] [phone] PCP - General Family Medicine 06/24/13 09/14/23 Jonathan Amado MD [address] [place] [phone] 06/24/13 documented as of this encounter
--- OUTSIDE RECORDS SUMMARY | 2024-10-17 03:07 | XMS_ITS | Encounter Summary ---
Author Organization [facility] Address [facility] [address] Care Team Providers Care Mortar Mixer Name Role Phone Jonahtan Amado MD Primary Care Provider [phone] Jonathan Amado MD Unavailable [phone] Reason for Visit * Reason Comments Nose Problem Encounter Details Date Type Department Care Team (Late st Contact Info) Description 06/20/2020 4:30 PM CDT Office Visit [facility] Otolaryngology [address] [place] [phone] Grupo Brice MD [address] [place] [address] [place] [address] Nasal congestion (Primary Dx); Chronic maxillary sinusitis Social History Tobacco Use Types Packs/Day Years [...] AM CDT documented as of this encounter Last Filed Vital Signs Vital Sign Reading Time Taken Comments Blood Pressure 115/80 06/20/2020 4:26 PM CDT Pulse 65 06/20/2020 4:26 PM CDT Temperature - - Respiratory Rate - - Oxygen Saturation - - Inhaled Oxygen Concentration - - Weight 68.5 kg (151 lb 2 oz) 06/20/2020 4:26 PM CDT Height 162.6 cm (5' 4 ) 06/20/2020 4:26 PM CDT Body Mass Index 25.94 06/20/2020 4:26 PM CDT documented in this encounter Patient Instructions * Patient Instructions* Leana Campos - 06/20/2020 4:26 PM CDT Thank you for visiting [facility] Otolaryngology - Head & Neck Surgery. We [...] an appointment, please call our office at [phone] Friday through Friday from 8:30 am to4:30 pm. You can also request a routine appointment through your [employer] account. Prescription Refills Contact your pharmacy to [...] call the medical exchangeat and ask the bottoming machine operator to page the ENT physician rigging and controls aircraft mechanic. *Caller ID blocking service will need to be turned off for your call to be returned. We also specialize in Hearing Aids, Allergy testing, swallowing disorders, voice problems, cancer diagnosis, and so much more. Visit our website at [email or web address] for information about our practice and an interactive healthencyclopedia. documented in this encounter Progress Notes * Grupo Brice MD - 06/20/2020 4:34 PM CDT History of Present Illness: Pina is a 50 year old female who presents for evaluation of sinuses. Has long standing chronichyperplastic rhinosinusitis. Has been having severe right sided symptoms for a month. Went to urgent care started on Augmentin. No better contacted our office started topical Budesonide and Tobramycin. Last seen 05/30/2020 Started budesonide and Tobramycin irrigations. Reports little to no significantimprovement. Has been seen again in urgent care. Complained loss of smell, headache, shortness of breath. Covid 19 -- non detected. Did not receive any treatment from urgent care. Has completed Tobramycin over a week ago. Still using the budesonide 2 times a day. Gets thick dried mucous concretions from nose when irrigates. Was given 16 days of prednisone last visit. 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 Recommended by cattle broker to maintain social distancing and to not return to school environment. Past Medical History: Past Medical History: Diagnosis Date ??? Cervical disc disease ??? Chronic interstitial cystitis ??? Disorder of maxillary sinus ??? Migraine Past Surgical History: Procedure Laterality Date ??? BLADDER PROCEDURE/SURGERY ??? Cholecystectomy, Laparoscopic ??? Hysterectomy ??? Hysterectomy endometrosis ??? Ovarian Cyst Removal ??? SINUS SURGERY ??? Tonsillectomy Family History Problem Relation Name Age of [...] 10 mg by mouth once daily ??? Cetirizine-Pseudoephedrine (ZYRTEC-D PO) Take by mouth 2 times daily. ??? Cetirizine-Pseudoephedrine (ZYRTEC-D PO) Take 1 Tab by mouth 2 times daily. ??? Cholecalciferol (VITAMIN D-3) 1000 UNITS Take [...] Anaphylaxis 0.3 mL 0 ??? ergocalciferol (DRISDOL) 56681 UNITS CAPS capsule Take 50,000 Units by mouth every 30 days. ??? fluticasone propionate (FLONASE) 50 MCG/ACT nasal spray [place] 2 Sprays into each nostril once daily. ??? hydroxychloroquine (PLAQUENIL) 200 MG tablet Take 1 Tab by mouth 2 times daily. 60 Tab 3 ??? ibuprofen (ADVIL) 200 MG capsule Take 200 mg by mouth 4 times daily as needed. ??? Linaclotide (LINZESS PO) Take by mouth as needed. ??? magnesium 250 MG tablet Take 250 mg by mouth once daily ??? Ondansetron HCl (ZOFRAN PO) Take by mouth as needed. ??? oxybutynin CR 24hr (DITROPAN-XL) 10 MG tablet Take 10 mg by mouth once daily 3 ??? pantoprazole EC (PROTONIX) 40 MG tablet Take 1 tablet by mouth once daily ??? predniSONE (DELTASONE) 10 MG tablet 40mg po qam x 4days, 30mg po qam x 4days, 20mg po qam x 4days, 10mg po qam x 4days 30 tablet 0 ??? predniSONE (DELTASONE) 10 MG tablet Take by mouth. 4 tabs for 3 days, then 3 tabs for 3 days, then 2 tabs for 3 days, then one tab for 3 days then stop ??? Probiotic Product (ALIGN) 4 MG Take 1 capsule by mouth once daily ??? Pseudoephedrine HCl (SUDAFED PO) Take by mouth as needed ??? Pyridoxine HCl (B-6) 100 MG Take 100 mg by mouth ??? rizatriptan (MAXALT) 10 MG tablet Take 1 tablet by mouth. (Patient taking differently: Take 1 tablet by mouth as needed ) ??? rizatriptan (MAXALT) 5 MG tablet Take 5 mg by mouth once as needed. ??? Tobramycin Add 1 capsule of 20mg to 240ml saline (patient may mix own saline). Irrigate half ineach nostril twice daily for 30 days. 0.12 g 0 No current facility-administered medications for this visit. Allergies Allergen Reactions ??? Contrast [Contrast-Iodinated Agents For Ct/Other] Anaphylaxis and Other Tenderness at infusion site ??? Contrast-Iodinated Agents For Ct/Other Myalgias And joint pain after ??? Doxycycline Rash ??? Morphine Nausea and/or Vomiting ??? Sulfa Drugs Rash and Myalgias ??? Ciprofloxacin Myalgias ??? Compazine [Prochlorperazine] Other Anxiety and wild ??? Doxycycline Unknown ??? Morphine Nausea and/or Vomiting ??? Gabapentin Headache ??? Septra [Sulfamethoxazole W-Trimethoprim] Urticaria and Rash ??? Ciprofloxacin Rash ??? Levaquin Rash ??? [...] and jaw has pain Physical Examination: BP 115/80 Pulse 65 Ht 5' 4 (1.626 m) Wt 151 lb 2 oz (68.5 kg) BMI 25.94 kg/m2 Body mass index is 25.94 kg/m??. Constitutional: in no apparent distress and [...] asymmetry, or inflammation Septum: Good alignment Turbinates: Maloy, non-edematous, without discharge Mucosa: [place], healthy appearing Oral Cavity: No perioral or [...] color, texture normal. No rashes or lesions Collected: 05/24/2020 10:02 AM Status: Final result Dx: Chronic maxillary sinusitis Gram Stain Rare Polymorphonuclear cells Heavy Gram-negative bacilli Resulting Agency: [facility] Susceptibility Serratia marcescens CHERELLE Amikacin <=2 ug/mL Susceptible Cefepime <=1 ug/mL Susceptible Ceftriaxone <=1 ug/mL Susceptible Ciprofloxacin <=0.25 ug/mL Susceptible Gentamicin <=1 ug/mL Susceptible Meropenem <=0.25 ug/mL Susceptible Tobramycin 2 ug/mL Susceptible Trimethoprim-sulfamethoxazole <=20 ug/mL Susceptible Susceptibility Acinetobacter species CHERELLE Ampicillin-sulbactam <=2 ug/mL Susceptible Cefepime 2 ug/mL Susceptible Ceftazidime 16 ug/mL Intermediate Ciprofloxacin <=0.25 ug/mL Susceptible Gentamicin <=1 ug/mL Susceptible Meropenem 1 ug/mL Susceptible Piperacillin-tazobactam <=4 ug/mL Susceptible Tobramycin 2 ug/mL Susceptible Trimethoprim-sulfamethoxazole <=20 ug/mL Susceptible Procedure Note Endoscopy Type: Nasal Endoscopy without [...] healthy without evidence of infection. Condition: Stable. Patient tolerated procedure well. Complications: None I was present for the entirety of the procedure. Assessment and Plan: Pina is a 50 year old female with recurrent sinusitis. Continue topical budesonide and tobramycin unclear why she continues to have these problems. Have recultured today and we'll check the culture results to see if there is now resistance or new organism. May need to consider topical antifungal medications. 2 rounds of steroids have not satisfactorily eliminated her symptoms. FU in 4weeks. * Leana Campos - 06/20/2020 4:25 PM CDT Review of Systems Pina reports the following: Nose: congestion documented in this encounter Procedure Notes * Grupo Brice MD - 06/20/2020 4:43 PM CDTAssociated Order(s): PROC SINUS ENDOSCOPY Procedure(s): MD NASAL ENDOSCOPY,DX Pre-Procedure Diagnose(s): Nasal congestion; Chronic maxillary sinusitis Procedure Note Endoscopy Type: [...] healthy without evidence of infection. Condition: Stable. Patient tolerated procedure well. Complications: None I was present for the entirety of the procedure. documented in this encounter Plan of Treatment Upcoming Encounters Date Type Department Care Team (Late st Contact Info) Description 10/19/2024 3:40 PM RECYCLING OPERATOR Clinical Support [facility] [address] [place] [phone] 10/26/2024 3:20 PM RECYCLING OPERATOR Clinical Support [facility] [address] [place] [phone] 11/02/2024 3:40 PM RECYCLING OPERATOR Clinical Support [facility] [address] [place] [phone] 11/09/2024 3:20 PM RECYCLING OPERATOR Clinical Support [facility] [address] [place] [phone] documented as of this encounter Procedures Procedure Name Priority Date/Time Associated Diagnosis Comments MD NASAL ENDOSCOPY,DX Routine 06/20/2020 4:43 PM CDT Nasal congestion Chronic maxillary sinusitis documented in this encounter Results * MD NASAL ENDOSCOPY,DX (06/20/2020 4:43 PM CDT) Narrative [...] sinusitis documented in this encounter Care Teams Mortar Mixer Relationship Specialty Start Date End Date Jonathan Amado MD [facility] [place] [phone] PCP - General Family Medicine 06/24/13 09/14/23 Jonathan Amado MD [address] [place] [phone] 06/24/13 documented as of this encounter
--- OUTSIDE RECORDS SUMMARY | 2024-10-17 03:07 | XMS_ITS | Encounter Summary ---
Author Organization [facility] Address [address] [facility] [place] [address] Care Team Providers Care Book Or Script Editor Name Role Phone Jonathan Amado MD Primary Care Provider [phone] Jonathan Amado MD Unavailable [phone] Reason for Visit * Reason Onset Date Comments Immunotherapy 09/01/2023 Allergy benefit Encounter Details Date Type Department Care Team ([facility] Contact Info) Description 09/01/2023 Telephone [facility] [address] [place] [phone] Franc Ventura MD [address] [place] [address] DEPT OF OTOLARYNGOLOGY [place], [place] [id number] Immunotherapy (Allergy benefit) Social History Tobacco Use Types Packs/Day Years [...] encounter Miscellaneous Notes * Telephone Encounter - Ryanne Amaya - 09/01/2023 3:53 PM CST Per Christofer De Paz No auth or referral needed for allergy codes 26787, [id number]. Ref#[id number] LUTE PROFESSIONAL documented in this encounter Plan of Treatment Upcoming Encounters Date Type Department Care Team (Late Contact Info) Description 10/19/2024 3:40 PM RESOLUTE PROFESSIONAL Clinical Support [facility] [address] [place] [phone] 10/26/2024 3:20 PM RESOLUTE PROFESSIONAL Clinical Support [facility] [address] [place] [phone] 11/02/2024 3:40 PM RESOLUTE PROFESSIONAL Clinical Support [facility] [address] [place] [phone] 11/09/2024 3:20 PM RESOLUTE PROFESSIONAL [facility] [address] [place] [phone] documented as of this encounter Visit Diagnoses Not on filedocumented in this encounter Care Teams Book Or Script Editor Relationship Specialty Start Date End Date Jonathan Amado MD [address] [place] [phone] PCP - General Family Medicine 06/24/13 09/14/23 Jonathan Amado MD [address] [place] [phone] 06/24/13 documented as of this encounter
--- OUTSIDE RECORDS SUMMARY | 2024-10-17 03:07 | XMS_ITS | Encounter Summary ---
Author Organization [facility] Address [facility] [place] [address] Care Team Providers Care Fuel Retrofitting Technician Name Role Phone Jonathan Amado MD Unavailable [phone] Jonathan Amado MD Primary Care Provider [phone] Reason for Visit * Reason Onset Date Comments Immunotherapy 10/23/2023 Allergy shot inj ection site Encounter Details Date Type Department Care Team (Late st Contact Info) Description 10/23/2023 Telephone [facility] [address] [place] [phone] Franc Ventura MD [address] [place] [address] DEPT OF OTOLARYNGOLOGY [place], [place] [id number] Immunotherapy (Allergy shot injection site) Social History Tobacco Use Types Packs/Day Years [...] encounter Miscellaneous Notes * Telephone Encounter - Niru Valera MA - 10/23/2023 3:58 PM CST Patient's called stating that the allergy injection site is now looking like a bump a little bigger than the size of a pencil eraser. The patient's injection site was covered by the nurse andshe left the cover on until the morning and used neosporin on the site. The doctor recommended thatthe patient keep the site clean, uncovered, and with neosporin a couple times in a day. The patient's was told to send in a picture of the site with a ruler next to it in the morning if the bump does not go down. RTISING PRODUCTION MANAGER documented in this encounter Plan of Treatment Upcoming Encounters Date Type Department Care Team (Late st Contact Info) Description 10/19/2024 3:40 PM ADVERTISING PRODUCTION MANAGER Clinical Support [facility] [address] [place] [phone] 10/26/2024 3:20 PM ADVERTISING PRODUCTION MANAGER Clinical Support [facility] [address] [place] [phone] 11/02/2024 3:40 PM ADVERTISING PRODUCTION MANAGER Clinical Support [facility] [address] [place] [phone] 11/09/2024 3:20 PM ADVERTISING PRODUCTION MANAGER Clinical Support [facility] [address] [place] [phone] documented as of this encounter Visit Diagnoses Not on filedocumented in this encounter Care Teams Fuel Retrofitting Technician Relationship Specialty Start Date End Date Jonathan Amado MD [facility] [place] [phone] PCP - General Family Medicine 09/15/23 Jonathan Amado MD [facility] [place] [phone] 06/24/13 documented as of this encounter
--- OUTSIDE RECORDS SUMMARY | 2024-10-17 03:07 | XMS_ITS | Encounter Summary ---
Author Organization [facility] Address [address] [facility] [place] [address] Care Team Providers Care [employer] Patrol Police Name Role Phone Jonathan Amado MD Primary Care Provider [phone] Jonathan Amado MD Unavailable [phone] Reason for Visit * Reason Onset Date Comments Congested Nose 04/11/2020 Encounter Details Date Type Department Care Team (Late st Contact Info) Description 05/02/2020 Telephone [facility] [address] [address] iA Lomeli, RN Congested Nose Social History Tobacco Use Types Packs/Day Years [...] Telephone Encounter - Ai Lomeli, RN - 05/02/2020 9:35 AM CDT C/o nose plugged up for 3 weeks, Little relief with medrol dosepack from [facility], No relief with Augmentin from Urgent Care (2 visits). Denies fever. Has been nasally irrigating with saline, return of green or can't get it through. Also using Sudafed, Mucinex; sneezing a lot. Thinks topical nasal tobramycin would help. Has not been using budesonide in irrigations, prescription ran out. States is drinking fluids, admits feels thirsty. Health changes over past year: ERCP in April, Still with abd pain when eating, spasms at right side of abd. Sees Dr. Duncan ID at [facility]. Case discussed with Dr. Brice and call returned to patient at 0930: Tobramycin in nasal irrigations BID for 1 month. Resume budesonide in irrigations BID also. Call with update in 3 months, or sooner if no improvement in symptoms. Patient acknowledges understanding. documented in this encounter Plan of Treatment Upcoming Encounters Date Type Department Care Team (Late st Contact Info) Description 10/19/2024 3:40 PM GEOINT ANALYST Clinical Support [facility] [address] [place] [phone] 10/26/2024 3:20 PM GEOINT ANALYST Clinical Support [facility] [address] [place] [phone] 11/02/2024 3:40 PM GEOINT ANALYST Clinical Support [facility] [address] [place] [phone] 11/09/2024 3:20 PM GEOINT ANALYST Clinical Support [facility] [address] [place] [phone] documented as of this encounter Visit Diagnoses Not on filedocumented in this encounter Care Teams [employer] Police Relationship Specialty Start Date End Date Jonathan Amado MD [address] [place] [phone] PCP - General Family Medicine 06/24/13 09/14/23 Jonathan Amado MD [address] [place] [phone] 06/24/13 documented as of this encounter
--- OUTSIDE RECORDS SUMMARY | 2024-10-17 03:07 | XMS_ITS | Encounter Summary ---
Author Organization [facility] Address [address] [facility] [place] [address] Care Team Providers Care Multimedia Technician Name Role Phone Jonathan Amado MD Unavailable [phone] Jonathan Amado MD Primary Care Provider [phone] Reason for Visit * Reason Comments Immunotherapy Encounter Details Date Type Department Care Team (Latest Contact Info) Description 11/04/2023 3:40 PM ROUTE CARRIER Clinical Support [facility] [address] [place] [phone] Allergic rhinitis due to pollen, unspecified [...] of this encounter Progress Notes * Ai Lmoeli, RN - 11/04/2023 3:32 PM CST This person is taking immunotherapy for previously diagnosed allergic rhinitis J30.1. Serum calculations have been reviewed by Dr. Ventura on 09/15/2023. . Allergy Individual Dosing Allergy extracts mixed: 09/24/2023 and 6 months after date mixed. date [place] mix Mold mix Phenol saline Vial in [...] arm SQ -am 11/11/2022 0.20 0.25 0.10 11/18/2022 0.22 0.25 0.05 11/25/2022 0.25 0.25 0.00 12/02/2022 0.25 0.25 0.00 12/09/2022 0.25 0.25 0.00 Epipen exp 12/2024 Physician in office: Dr. Brice Department of Otolaryngology Head and Neck Surgery Patient Name: Pina Reynaga : 1970 Date: 11/04/2023 1. Did you bring your Epi-pen with you to clinic today? Yes 2. How are you feeling today? fine 3. How have you been feeling since your last shot? Fine. Slow to answer most questions; spouse answers for pt. A. What symptoms do you have? denies B. When do you have these symptoms? [...] Any local reactions from your last shot? Yes, redness at site noted at time of injection, she looked at it and motions at arm; denies worsening after going home. 8. Are you on any beta margy [...] respiratory unlabored, steady on feet,voices no complaints. E CARRIER documented in this encounter Plan of Treatment Upcoming Encounters Date Type Department Care Team (Late st Contact Info) Description 10/19/2024 3:40 PM ROUTE CARRIER Clinical Support [facility] [address] [place] [phone] 10/26/2024 3:20 PM ROUTE CARRIER Clinical Support [facility] [address] [place] [phone] 11/02/2024 3:40 PM ROUTE CARRIER Clinical Support [facility] [address] [place] [phone] 11/09/2024 3:20 PM ROUTE CARRIER Clinical Support [facility] - ENT [address] [place] [phone] documented as of this encounter Visit Diagnoses Diagnosis Allergic rhinitis due to pollen, unspecified seasonality- Primary documented in this encounter Care Teams Multimedia Technician Relationship Specialty Start Date End Date Jonathan Amado MD [address] [place] [phone] PCP - General Family Medicine 09/15/23 Jonathan Amado MD [facility] [place] [phone] 06/24/13 documented as of this encounter
--- OUTSIDE RECORDS SUMMARY | 2024-10-17 03:07 | XMS_ITS | Encounter Summary ---
Author Organization [facility] Address [address] [facility] [address] Care Team Providers Care Put In Beat Adjuster Name Role Phone Jonathan Amado MD Primary Care Provider [phone] Jonathan Amado MD Unavailable [phone] Reason for Visit * Reason Onset Date Comments Update 05/09/2022 Encounter Details Date Type Department Care Team (Late st Contact Info) Description 05/09/2022 Telephone [facility] [place] [phone] Ai Lomeli, RN Update Social History Tobacco Use Types Packs/Day Years [...] Telephone Encounter - Ai Lomeli, RN - 05/09/2022 9:55 AM CDT Pt missed appointment this week, calls with update: Completed abx nasal irrigation, helped some, but now starting again with sneezing. Still nasally irrigating nasally with budesonide BID, states nasal mucus is white, not green. Talks about cough, more frequent at night, has used Mucinex DM and Robitussin nighttime. Restarted Zyrtec. Declines appt with Dr. Brice, will discuss with pulmonary MD and call [facility] nurse line again if she wants an appt. Encouraged more moisture to airway, could do salt water irrigation during day and drink more water,consider humidifier at home. documented in this encounter Plan of Treatment Upcoming Encounters Date Type Department Care Team (Late st Contact Info) Description 10/19/2024 3:40 PM CRAPS MANAGER Clinical Support [facility] [address] [place] [phone] 10/26/2024 3:20 PM CRAPS MANAGER Clinical Support [facility] [address] [place] [phone] 11/02/2024 3:40 PM CRAPS MANAGER Clinical Support [facility] [address] [place] [phone] 11/09/2024 3:20 PM CRAPS MANAGER Clinical Support [facility] [address] [place] [phone] documented as of this encounter Visit Diagnoses Not on filedocumented in this encounter Care Teams Put In Beat Adjuster Relationship Specialty Start Date End Date Jonathan Amado MD [address] [place] [phone] PCP - General Family Medicine 06/24/13 09/14/23 Jonathan Amado MD [address] [place] [phone] 06/24/13 documented as of this encounter
--- OUTSIDE RECORDS SUMMARY | 2024-10-17 03:07 | XMS_ITS | Encounter Summary ---
Author Organization [facility] Address [facility] [place] [address] Care Team Providers Care Ship Manager Name Role Phone Jonathan Amado MD Primary Care Provider [phone] Jonathan Amado MD Unavailable [phone] Encounter Details Date Type Department Care Team (Latest Contact Info) Description 03/05/2023 Travel Social History Tobacco Use Types Packs/Day Years Used Date Smoking Tobacco: Never Smokeless Tobacco: Never Alcohol Use Standard Drinks/Week Comments No 0 (1 standard drink = 0.6 oz pur e alcohol) Sex and Gender Information Value Date Recorded Sex Assigned at Not on file Gender Identity Not on file Sexual Orientation Not on file COVID-19 Exposure Response Date Recorded In the last 10 days, have yo u been in contact with someone who was confirmed or suspected to have Coronavirus/COVID-19? No / Unsure 03/05/2023 2:24 PM CDT documented as of this encounter Plan of Treatment Upcoming Encounters Date Type Department Care Team (Late st Contact Info) Description 10/19/2024 3:40 PM DRILL OPERATOR PNEUMATIC Clinical Support [facility] [address] [place] [phone] 10/26/2024 3:20 PM DRILL OPERATOR PNEUMATIC Clinical Support [facility] [address] [place] [phone] 11/02/2024 3:40 PM DRILL OPERATOR PNEUMATIC Clinical Support [facility] [address] [place] [phone] 11/09/2024 3:20 PM DRILL OPERATOR PNEUMATIC Clinical Support [facility] [address] [place] [phone] documented as of this encounter Visit Diagnoses Not on filedocumented in this encounter Care Teams Ship Manager Relationship Specialty Start Date End Date Jonathan Amado MD [facility] [place] [phone] PCP - General Family Medicine 06/24/13 09/14/23 Jonathan Amado MD [facility] [place] [phone] 06/24/13 documented as of this encounter
--- OUTSIDE RECORDS SUMMARY | 2024-10-17 03:07 | XMS_ITS | Encounter Summary ---
Author Organization [facility] Address [address] [facility] [place] [address] Care Team Providers Care Hydro Mechanic Name Role Phone Jonathan Amado MD Unavailable [phone] Jonathan Amado MD Primary Care Provider [phone] Encounter Details Date Type Department Care Team (Latest Contact Info) Description 10/28/2023 3:00 PM INSTRUCTIONAL DESIGN CONSULTANT Clinical Support [facility] [address] [place] [phone] Allergic rhinitis due to pollen, unspecified [...] as of this encounter Progress Notes * Charleen North RN - 10/28/2023 2:48 PM CST This person is taking immunotherapy for previously diagnosed allergic rhinitis. Serum calculations have been reviewed by Dr. Ventura on . Allergy Individual Dosing Allergy extracts mixed: 09/24/2023 and 6 months after date mixed. date [place] mix Mold mix Phenol saline Vial in series verified with Signature and location 09/30/2023 0.05 0.05 0.40 pt Right upper arm SQ-ar 10/07/2023 0.07 0.10 0.35 pt Right upper arm SQ-ls 10/14/2023 0.10 0.15 0.30 pt Right upper arm SQ-ls 10/21/2023 0.12 0.20 0.25 Right upper arem SQ-sb 10/28/2023 0.15 0.25 0.20 Right upper arm SQ-sb 11/04/2022 0.17 0.25 0.15 11/11/2022 0.20 0.25 0.10 11/18/2022 0.22 0.25 0.05 11/25/2022 0.25 0.25 0.00 12/02/2022 0.25 0.25 0.00 12/09/2022 0.25 0.25 0.00 Epipen exp 12/2024 Physician in office: Dr. Pantoaj Department of Otolaryngology Head and Neck Surgery Patient Name: Pina Reynaga : 1970 Date: 10/28/2023 1. Did you bring your Epi-pen with [...] respiratory unlabored, steady on feet,voices no complaints. RUCTIONAL DESIGN CONSULTANT documented in this encounter Plan of Treatment Upcoming Encounters Date Type Department Care Team (Late st Contact Info) Description 10/19/2024 3:40 PM INSTRUCTIONAL DESIGN CONSULTANT Clinical Support [facility] [address] [place] [phone] 10/26/2024 3:20 PM INSTRUCTIONAL DESIGN CONSULTANT Clinical Support [facility] [address] [place] [phone] 11/02/2024 3:40 PM INSTRUCTIONAL DESIGN CONSULTANT Clinical Support [facility] [address] [place] [phone] 11/09/2024 3:20 PM INSTRUCTIONAL DESIGN CONSULTANT Clinical Support [facility] [address] [place] [phone] documented as of this encounter Visit Diagnoses Diagnosis Allergic rhinitis due to pollen, unspecified seasonality- Primary documented in this encounter Care Teams Hydro Mechanic Relationship Specialty Start Date End Date Jonathan Amado MD [address] [place] [phone] PCP - General Family Medicine 09/15/23 Jonathan Amado MD [address] [place] [phone] 06/24/13 documented as of this encounter
--- OUTSIDE RECORDS SUMMARY | 2024-10-17 03:07 | XMS_ITS | Encounter Summary ---
Author Organization [facility] Address [address] [place] [address] Care Team Providers Care Agricultural Education Professor Name Role Phone Jonathan Amado MD Unavailable [phone] Jonathan Amado MD Primary Care Provider [phone] Reason for Visit * Reason Comments Immunotherapy Encounter Details Date Type Department Care Team (Latest Contact Info) Description 10/21/2023 3:00 PM BURNING PLANT OPERATOR Clinical Support [facility] [address] [place] [phone] Seasonal allergic rhinitis due to pollen Social [...] Progress Notes * Charleen North RN - 10/21/2023 2:43 PM CST This person is taking immunotherapy for previously diagnosed allergic rhinitis. Serum calculations have been reviewed by Dr. Ventura on . Allergy Individual Dosing Allergy extracts mixed: 09/24/2023 and 6 months after date mixed. date [place] mix Mold mix Phenol saline Vial in series verified with Signature and location 09/30/2023 0.05 0.05 0.40 pt Right upper arm SQ-ar 10/07/2023 0.07 0.10 0.35 pt Right upper arm SQ-ls 10/14/2023 0.10 0.15 0.30 pt Right upper arm SQ-ls 10/21/2023 0.12 0.20 0.25 Right upper arem SQ-sb 10/28/2023 0.15 0.25 0.20 11/04/2022 0.17 0.25 0.15 11/11/2022 0.20 0.25 0.10 11/18/2022 0.22 0.25 0.05 11/25/2022 0.25 0.25 0.00 12/02/2022 0.25 0.25 0.00 12/09/2022 0.25 0.25 0.00 Epipen exp 12/2024 Physician in office: Dr. Pantoja Department of Otolaryngology Head and Neck Surgery Patient Name: Pina Reynaga : 1970 Date: 10/21/2023 1. Did you bring your Epi-pen with [...] Patient acknowledges and understands. Patient practiced with applications trainer. Reviewed treatment for local reactions including calling office for reactions > 2 inches. 1548 Time ambulatory form clinic in no distress, color pink, respiratory unlabored, steady on feet,voices no complaints. ING PLANT OPERATOR documented in this encounter Plan of Treatment Upcoming Encounters Date Type Department Care Team (Late st Contact Info) Description 10/19/2024 3:40 PM BURNING PLANT OPERATOR Clinical Support [facility] [address] [place] [phone] 10/26/2024 3:20 PM BURNING PLANT OPERATOR Clinical Support [facility] [address] [place] [phone] 11/02/2024 3:40 PM BURNING PLANT OPERATOR Clinical Support [facility] [address] [place] [phone] 11/09/2024 3:20 PM BURNING PLANT OPERATOR Clinical Support [facility] [address] [place] [phone] documented as of this encounter Visit Diagnoses Diagnosis Seasonal allergic rhinitis due to pollen- Primary documented in this encounter Care Teams Agricultural Education Professor Relationship Specialty Start Date End Date Jonathan Amado MD [address] [place] [phone] PCP - General Family Medicine 09/15/23 Jonathan Amado MD [address] [place] [phone] 06/24/13 documented as of this encounter
--- OUTSIDE RECORDS SUMMARY | 2024-10-17 03:07 | XMS_ITS | Encounter Summary ---
Author Organization [facility] Address [facility] [facility] [place] [address] Care Team Providers Care Machine Stitcher Name Role Phone oJnathan Amado MD Primary Care Provider [phone] Jonathan Amado MD Unavailable [phone] Reason for Visit * Reason Comments Sinus Problem Sinus / allergy issu es Encounter Details Date Type Department Care Team (Late st Contact Info) Description 07/22/2023 8:30 AM CDT Office Visit [facility] [address] [place] [phone] Grupo Brice MD [address] [place] [address] [place] [address] Allergic rhinitis, unspecified seasonality, unspecified trigger (Primary Dx) Social History Tobacco Use Types [...] Sign Reading Time Taken Comments Blood Pressure 131/88 07/22/2023 8:42 AM CDT Pulse 87 07/22/2023 8:42 AM CDT Temperature - - Respiratory Rate - - Oxygen Saturation - - Inhaled Oxygen Concentration - - Weight 73.8 kg (162 lb 12.8 oz) 07/22/2023 8:42 AM CDT Height 162.6 cm (5' 4 ) 07/22/2023 8:42 AM CDT Body Mass Index 27.94 07/22/2023 8:42 AM CDT documented in this encounter Patient Instructions * Patient Instructions* Alexa Loco MA - 07/22/2023 8:42 AM CDT Thank you for visiting [facility] Otolaryngology - Head & Neck Surgery. We [...] an appointment, please call our office at [phone] Friday through Friday from 8:30 am to4:30 pm. You can also request a routine appointment through your [employer] account. Prescription Refills Contact your pharmacy to [...] the medical exchange at and ask the pilot boat operator to page the ENT physician director of recruitment and admissions. *Caller ID blocking service will need to be turned off for your call to be returned. We also specialize in Hearing Aids, Allergy testing, swallowing disorders, voice problems, cancer diagnosis, and so much more. Visit our website at [email or web address] for information about our practice and an interactive health encyclopedia. documented in this encounter Progress Notes * Grupo Brice MD - 07/22/2023 8:43 AM CDT [facility] Ot[facility]ology [facility] Progress Note 07/22/23 History of Present Illness: 53 year old with a h/o chronic hyperplastic rhinosinusitis s/p sinus surgeries who presents for evaluation of allergies. Last seen on 04/14/23 when nasal endoscopy showed no evidence of paranasal sinus disease. No new recommendations were made and she was advised to follow up if any new sinus symptoms. Today she reports that she has been evaluated by public affairs manager Dr. Mendez ([facility]) with recommendation for allergy shots based on recent positive allergy testing (results in media tab). She would prefer to pursue allergy shots here as it is closer to her home. 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 Past Medical History: Diagnosis Date ??? Cervical disc disease ??? Chronic interstitial cystitis ??? Disorder of maxillary sinus ??? Migraine PSH: has a past surgical history that includes tonsillectomy; ovarian cyst removal; hysterectomy; bladder procedure/surgery; sinus surgery; cholecystectomy, laparoscopic; and hysterectomy. Current Outpatient Medications Medication Sig Dispense Refill ??? azelastine (Astepro) 205.5 MCG/SPRAY nasal spray Bartlett 2 (two) sprays into each nostril 2 timesdaily 90 mL 4 ??? Budesonide Add 1 capsule of 0.5mg or 0.6mg to 240ml saline (patient may mix own saline). Irrigate half in each nostril twice daily. 60 capsule 11 ??? cetirizine (ZYRTEC) 10 MG tablet Take 1 (one) tablet by mouth once daily ??? ergocalciferol (DRISDOL) 1.25 MG (15118 UT) capsule Take 1 (one) capsule by mouth every 30 days ??? estradiol (Estrace) 0.1 MG/GM vaginal cream Insert 2 g into the vagina Two times a week (Patient not taking: Reported on 07/22/2023) ??? fluticasone propionate (FLONASE) 50 MCG/ACT nasal spray Bartlett 2 (two) sprays into each nostril once daily ??? hydroxychloroquine (PLAQUENIL) 200 MG tablet Take 400 mg by mouth once daily (Patient not taking: Reported on 01/28/2023) ??? Ondansetron HCl (ZOFRAN PO) Take 1 tablet by mouth as needed ??? Pseudoephedrine HCl (SUDAFED PO) Take 1 tablet by mouth as needed No current facility-administered medications for this visit. Allergies Contrast [contrast-iodinated agents for ct/other]; Contrast-iodinated agents for ct/other; Doxycycline; Morphine; Sulfa drugs; Ciprofloxacin; Gabapentin; Septra [sulfamethoxazole w-trimethoprim]; Ciprofloxacin; Levaquin; Ambrosia artemisiifolia, ragweed; and Compazine syrup Social History Tobacco Use ??? Smoking status: Never ??? Smokeless tobacco: Never Substance Use Topics ??? Alcohol use: No ??? Drug use: No Family History Problem Relation Name Age of Onset ??? Psoriasis Mother Status: Alive ??? Arthritis - Osteo Mother Cspine ??? Hypertension Father Status: Alive ??? None Known Brother BP 131/88 Pulse 87 [...] of the procedure. Assessment and Plan: Pina Reynaga is a 53 year old female with a h/o chronic hyperplastic rhinosinusitis s/p sinus surgeries who presents for evaluation of allergies. Nasal endoscopy today showed no evidence of paranasal sinus disease. She has known allergy to molds and was recently moved to a room with mold exposure at work. We have provided her with a letter recommending allergen avoidance. Additionally, had recent positive allergy testing at [facility] with recommendation for allergy shots by public affairs manager Dr. Mendez and she would prefer to pursue this here. - RTC in 3 months vs PRN after she has completed evaluation by our allergy team Jemma Vergara MD Otolaryngology-Head & Neck Surgery, PGY-3 07/22/2023 I have seen and examined the patient and agree with the comments and findings in the above residentnote. The above note reflects a procedure that I performed in clinic. The resident surgeon assisted with the procedure and/or the procedural note. I was present for, and participated in, the entirety of the encounter and the procedure. Grupo Brice M.D. Professor 53-year-old with chronic hyperplastic rhinosinusitis status post multiple sinus surgeries in the past. Recently she was moved to a new building in their school that has mold. We have seen this pattern multiple times over the last 10 to 15 years. She has severe hypersensitivity to mold which causes significant problems with breathing and sinus disease. At all cost this patient should be not exposed to mold. We also recommend that she have repeat allergy testing and consider allergy shots for the mold. She recently was allergy tested in another doctor's office which showed allergy to multiple molds. The plan will be for her to follow-up with me in 3 months today her endoscopic evaluation does not show any evidence of paranasal sinus disease or drainage. Today a letter was provided for her indicating that she should not be placed in a work environment that has exposure to mold. documented in this encounter Procedure Notes * Jemma Jernigan MD - 07/22/2023 9:33 AM CDTAssociated Order(s): PROC SINUS ENDOSCOPY Procedure(s): MA NASAL ENDOSCOPY,DX Pre-Procedure Diagnose(s): Allergic rhinitis, unspecified seasonality, unspecified trigger Procedure Note Endoscopy Type: Nasal Endoscopy without [...] st Contact Info) Description 10/19/2024 3:40 PM OVERHEAD DOOR TECHNICIAN Clinical Support [facility] [address] [place] [phone] 10/26/2024 3:20 PM OVERHEAD DOOR TECHNICIAN Clinical Support [facility] [address] [place] [phone] 11/02/2024 3:40 PM OVERHEAD DOOR TECHNICIAN Clinical Support [facility] [address] [place] [phone] 11/09/2024 3:20 PM OVERHEAD DOOR TECHNICIAN [facility] [address] [place] [phone] documented as of this encounter Procedures Procedure Name Priority Date/Time Associated Diagnosis Comments MA NASAL ENDOSCOPY,DX Routine 07/22/2023 9:33 AM CDT Allergic rhinitis, unspecified seasonality, unspecified trigger documented in this encounter Results * MA NASAL ENDOSCOPY,DX (07/22/2023 9:33 AM CDT) Narrative [...] documented in this encounter Visit Diagnoses Diagnosis Allergic rhinitis, unspecified seasonality, unspecified trigger- Primary documented in this encounter Care Teams Machine Stitcher Relationship Specialty Start Date End Date Jonathan Amado MD [address] [place] [phone] PCP - General Family Medicine 06/24/13 09/14/23 Jonathan Amado MD [address] [place] [phone] 06/24/13 documented as of this encounter
--- OUTSIDE RECORDS SUMMARY | 2024-10-17 03:07 | XMS_ITS | Encounter Summary ---
Author Organization [facility] Address [facility] [place] [address] Care Team Providers Care Commercial Property Manager Name Role Phone Jonathan Amado MD Primary Care Provider [phone] Jonathan Amado MD Unavailable [phone] Reason for Visit * Reason Comments Follow-up +FABIAN, Fibro Encounter Details Date Type Department Care Team (Late st Contact Info) Description 03/01/2019 3:00 PM CDT Office Visit [facility] [address] [place] [address] Sarika Edwards MD [address] [place] [address] Fibromyalgia (Primary Dx); FABIAN positive; Urticaria; Myalgia; Other fatigue Social History Tobacco Use Types Packs/Day Years [...] Sign Reading Time Taken Comments Blood Pressure 110/76 03/01/2019 2:50 PM CDT Pulse 80 03/01/2019 2:50 PM CDT Temperature 36.3 ??C (97.4 ??F) 03/01/2019 2:50 PM CD T Respiratory Rate - - Oxygen Saturation - - Inhaled Oxygen Concentration - - Weight 70.3 kg (155 lb) 03/01/2019 2:50 PM CDT Height 162.6 cm (5' 4 ) 03/01/2019 2:50 PM CDT Body Mass Index 26.61 03/01/2019 2:50 PM CDT documented in this encounter Patient Instructions * Patient Instructions* Sarika Edwards MD - 03/01/2019 4:35 PM CDT Patient Instructions Thank you for visiting the Rheumatology Clinic at [facility] I am sorry that I was running late. For reasons beyond my control, Patients are being scheduled forshorter appointment times than for the past 20 years. Additionally, in an effort to get patients into see a provider quickly, they are overbooking patients into this already overbooked schedule. This has resulted in my running even further behind than my usual delay. It has also impacted the amount of time that I am able to spend with patients. 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 I enjoy caring for patients, but if I do not have sufficient time to provide the care, then I cannot feel good about what I am doing. For these reasons, I plan to retire as of April 11, 2019. I did not plan to retire this quickly or with such short notice, but I simply cannot continue under the current circumstances. With regard to today's visit: Get the lab - call in few days and we can discuss the results -[phone] Consider seeing a correctional counselor/case manager about the rash if it continues - or talk to the electrician third about it - You could try benadryl - for the urticaria - If you have had lab at [employer], [employer] or [facility], you may view the results on My Chart or call Dr Edwards to discuss them if you wish. If something needs attention urgently, Dr Edwards or someone from the office will attempt to contact you at the telephone numbers we have on file for you. Otherwise, we will discuss the results at your follow up visit. If you need to change or cancel your Rheumatology appointment - At the Doctor's Office Building at [address], [address], call [phone] If you need a refill request, have your pharmacy fax a request to [phone] If you need to contact Dr Edwards, call [phone] and leave a voicemail message. She will return your call. If you have not heard back in a few days, call again! Her office FAX number is [phone]. Please do not use My Chart to contact Dr Edwards. For after hours emergency only, you can call the [facility] radial router operator at [phone] and ask for the Director Of Culture casting machine control board operator to be paged. documented in this encounter Progress Notes * Sarika Edwards MD - 03/01/2019 3:51 PM CDT [facility] Rhe[facility] Clinic Visit Attending Follow-up Progress Note PCP: Jonathan Amado MD Patient: Pina Reynaga, : 1970 Interval History: Pina Reynaga is a 48 year old female with 1. Fibromyalgia 2. FABIAN positive 3. Urticaria 4. Myalgia 5. Other fatigue here for f/u visit. The patient was last seen 08/10/18. She was seen at the neuromuscular division at [facility] -the testing was neg - they said they did not need to see her again; has had 2 more episodes of rashes - hive like in appearance-itchy - also has a headache before they occur - first occured in Jun - last time in [place] - and now - usu on legs -on arms this time - + nausea - tried zofran - difficulty eating - to see infectious disease - and then GI doctor - Was having hair loss = difficulty with vision - saw eye doctor - gave contact- but then in 3 weeks vision was bad again - probs seeing at night - No new lab checked - Keeps seeing ENT because of fungus in sinuses - showed a photo - This time overall weak - not specific muscle group - but generally - Antibodies were negative - ROS: General: Not Generally feeling well, + fatigue, no weight change -sl loss - , no fever Eyes: ? dry eyes ENT: + dry mouth - mcc but persistent, occ oral ulcers CV: occ chest pain - stabbing pain - , no palpitations Pulm: no shortness of breath, + cough - started about 2 d ago ,no worrisome dyspnea on exertion, probs with going up stairs - weakness in legs - difficulty to get them up - no pleuritic chest pain GI: + dysphagia - probs with food - increasing - liquids and solids - sometimes it hurts - occ withchoking - with food - ,++ heartburn - restarted protonix - and zofran, ++ nausea, occ vomiting, no diarrhea, + constipation,was using mirilax - quit for a while - but then with probs - ; + mucous no melena : no dysuria, Skin: + rashes; no Raynaud's Musculo: + Joint pain - knees - thumb , + joint swelling - ankles - thumb, + muscle pain, + muscle weakness, AM stiffness - 30 min - frances in back - but other areas. Ambulates with some difficulty due to pain - has been seeing a foot doctor - not associated with rash - . Neuro: + headaches - vary - may be sev days in a row - then with out - ,gets nausea - light bothers- uses maxalt ; strobe lights are a problem: Not sig dizziness,not sig N/T in extremities, Psych: + depression Current Medications: Current Outpatient Prescriptions Medication Sig ??? budesonide (PULMICORT) 0.5 MG/2ML nebulizer suspension Mix one vial in 90- 120 cc of salt water.Irrigate half into each nostril two times/day. ??? cetirizine (ZYRTEC) 10 MG tablet Take 10 mg by mouth once daily ??? Cholecalciferol (VITAMIN D-3) 1000 UNITS Take 1,000 Units by mouth 2 times daily ??? Cyanocobalamin (B-12) 1000 MCG Take 1,000 mcg by mouth ??? EPINEPHrine (EPIPEN) 0.3 MG/0.3ML auto-injector pen Inject 0.3 mL into muscle as needed for Anaphylaxis ??? magnesium 250 MG tablet Take 250 mg by mouth once daily ??? oxybutynin CR 24hr (DITROPAN-XL) 10 MG tablet Take 10 mg by mouth once daily ??? pantoprazole EC (PROTONIX) 40 MG tablet [...] 1 tablet by mouth as needed ) No current facility-administered medications for this visit. Allergies: Contrast-iodinated agents for ct/other; Doxycycline; Morphine; Sulfa drugs; Ciprofloxacin; Levaquin; and Compazine syrup Physical Exam: BP 110/76 (BP SITE: RIGHT ARM, BP POSITION: SITTING, BP CUFF SIZE: 11) Pulse 80 Temp 97.4 ??F (36.3??C) (Oral) Ht 5' 4 (1.626 m) Wt 155 lb (70.3 kg) BMI 26.61 kg/m2 System General: Normal; no distress; cooperative Skin: + rash -hive like over forearms HEENT: NC/AT. No pharyngeal erythema or exudate. No oral ulcers. Sl dry mucous membranes Neck: Supple. No LAD Back: + paraspinal muscle / spinal tenderness Chest/Lungs: CTAB Heart: RRR; nL S1/S2, no murmur Abdomen; deferred Neurologic: Grossly normal Joint Exam: No active synovitis Sl tenderness in the muscles few + tender points in a classic distribution for FMS Bilat knee crepitance - Labs: To get Assessment: Pina Reynaga is a 48 year old female with 1. Fibromyalgia 2. FABIAN positive 3. Urticaria 4. Myalgia 5. Other fatigue Overall she continues to have a variety of nonspecific symptoms- as well as urticaria since her last visit -unusual infection in the sinuses. She has had a + FABIAN also - at times thyroid dx is associated with urticaria - will check anti thyroid Ab - With the unusual infections will check immunoglobulin levels - she may need to be seen by immunology - Plan: Continue current regimen of ?? Vit D 1000 iu daily We recommended starting trying benadryl for the rash at night or zyrtec during the day - Consider seeing a correctional counselor/case manager if it continues - We ordered labs and/or imaging as listed below or in the standing orders. Return to clinic in 6 month(s) . The following were ordered during this evaluation: Orders Placed This Encounter ??? FABIAN BLOOD SCREEN W/REFLEX TITER ??? CHROMATIN ANTIBODY ??? SS-A (SJOGREN'S) ANTIBODY ??? SS-B (SJOGREN'S) ANTIBODY ??? HISTONE ANTIBODY ??? COMPLEMENT C4 ??? COMPLEMENT C3 ??? ALDOLASE ??? CK BLOOD ??? COMPREHENSIVE METABOLIC PANEL ??? C-REACTIVE PROTEIN ??? ERYTHROCYTE SEDIMENTATION RATE ??? T4 FREE ??? THYROGLOBULIN ANTIBODY ??? TSH ??? THYROID PEROXIDASE ANTIBODY ??? IGA BLOOD ??? IGG BLOOD ??? IGM BLOOD ??? LDH BLOOD ??? ALISSA STAINING PATTERNS REFLEXED documented in this encounter Plan of Treatment Upcoming Encounters Date Type Department Care Team (Late st Contact Info) Description 10/19/2024 3:40 PM RANGELAND MANAGEMENT SPECIALIST Clinical Support [facility] - ENT [address] [place] [phone] 10/26/2024 3:20 PM RANGELAND MANAGEMENT SPECIALIST Clinical Support [facility] [address] [place] [phone] 11/02/2024 3:40 PM RANGELAND MANAGEMENT SPECIALIST Clinical Support [facility] - ENT [address] [place] [phone] 11/09/2024 3:20 PM RANGELAND MANAGEMENT SPECIALIST Clinical Support [facility] - ENT [address] [place] [phone] documented as of this encounter Procedures Procedure Name Priority Date/Time Associated Diagnosis Comments CHROMATIN ANTIBODY Routine 03/05/2019 10 :01 AM CDT Fibromyalgia FABIAN positive ALISSA STAINING PATTERNS REFLEXED Routine 03/05/2019 10:01 AM CDT Fibromyalgia FABIAN positive C-REACTIVE PROTEIN Routine 03/05/2019 10 :01 AM CDT Fibromyalgia FABIAN positive FABIAN BLOOD SCREEN W/REFLEX TITER Routine 03/05/2019 10:01 AM CDT Fibromyalgia FABIAN positive THYROID PEROXIDASE ANTIBODY Routine 03/05/2019 10:01 AM CDT Fibromyalgia FABIAN positive Urticaria Myalgia Other fatigue THYROGLOBULIN ANTIBODY Routine 9 10:01 AM CDT Fibromyalgia FABIAN positive Urticaria Myalgia Other fatigue HISTONE ANTIBODY Routine 03/05/2019 10:0 1 AM CDT Fibromyalgia FABIAN positive SS-B (SJOGREN'S) ANTIBODY Routine 03/05/2019 10:01 AM CDT Fibromyalgia FABIAN positive SS-A (SJOGREN'S) ANTIBODY Routine 03/05/2019 10:01 AM CDT Fibromyalgia FABIAN positive ALDOLASE Routine 03/05/2019 10:01 AM CDT Fibromyalgia FABIAN positive Myalgia ERYTHROCYTE SEDIMENTATION RATE Routine 03/05/2019 10:01 AM CDT Fibromyalgia FABIAN positive COMPLEMENT C4 Routine 03/05/2019 10:01 AM CDT Fibromyalgia FABIAN positive COMPREHENSIVE METABOLIC PANEL Routine 03/05/2019 10:01 AM CDT Fibromyalgia FABIAN positive LDH BLOOD Routine 03/05/2019 10:01 AM CDT Fibromyalgia FABIAN positive Myalgia CK BLOOD Routine 03/05/2019 10:01 AM CDT Fibromyalgia FABIAN positive Myalgia TSH Routine 03/05/2019 10:01 AM CDT Fibromyalgia FABIAN positive Urticaria Myalgia Other fatigue T4 FREE Routine 03/05/2019 10:01 AM CDT Fibromyalgia FABIAN positive Urticaria Myalgia Other fatigue IGM BLOOD Routine 03/05/2019 10:01 AM CDT Fibromyalgia FABIAN positive IGG BLOOD Routine 03/05/2019 10:01 AM CDT Fibromyalgia FABIAN positive IGA BLOOD Routine 03/05/2019 10:01 AM CDT Fibromyalgia FABIAN positive COMPLEMENT C3 Routine 03/05/2019 10:01 AM CDT Fibromyalgia FABIAN positive documented in this encounter Results * (ABNORMAL) ALISSA STAINING PATTERNS REFLEXED (03/05/2019 [...] Histones ?Drug-induced SLE ? Speckled ? Sm, MATCH MAKER, SCL-70, ??SLE,MCTD,PSS (diffuse form), ? SS-A/SS-B ? Sjogrens ? Nucleolar ?SCL-70, PM-1/SCL ??High titers Scleroderma, ? PM/DM ? Centromere ?? Centromere ?PSS (limited form) w/Crest ? syndrome variable ? Nuclear Dot ??Sp100,[id number] ??Primary Biliary Cirrhosis ? Nuclear ?GP210, ?Primary Biliary Cirrhosis Membrane ? luis enrique A,B,C ? FASTING 03/05/2019 10:0 1 AM CDT 03/05/2019 Narrative Resulting Agency Comment Lab Testing performed at: [employer] ??[facility] [id number] Sarika Edwards MD LAB - PATHOLOGY/CYTO LOGY ORDERABLES Performing Organization Address [facility] Co de Phone Number [employer] INSURANCE BILL [address] [place] [address] * (ABNORMAL) LDH BLOOD (03/05/2019 10:01 AM CDT) LDH 276(H) 119 - 226 IU/L [facility] INSURANCE BILL Comment:FASTING Blood BLOOD SPECIMEN / Unknown 03/05/2019 10:01 AM CDT 03/05/2019 Narrative Resulting Agency Comment Lab Testing performed at: [employer] [facility] ??[facility] [id number] Sarika Edwards MD LAB - CHEMISTRY ORDE RABLES Performing Organization Address [facility]/ZIP Co de Phone Number [employer] INSURANCE BILL [address] [place] [address] * IGM BLOOD (03/05/2019 10:01 AM CDT) IgM Quantitative 28 26 - 217 mg/dL [facility] INSURANCE BILL Comment:FASTING Blood BLOOD SPECIMEN / Unknown 03/05/2019 10:01 AM CDT 03/05/2019 Narrative Resulting Agency Comment Lab Testing performed at: [facility] [place] [address] ??[facility] [id number] Sarika Edwards MD LAB - CHEMISTRY LISA THAYER [facility] INSURANCE BILL [address] [place] [address] * (ABNORMAL) IGG BLOOD (03/05/2019 10:01 AM CDT) IgG Quantitative 689(L) 700 - 1,600 mg/dL [facility] INSURANCE BILL Comment:FASTING Blood BLOOD SPECIMEN / Unknown 03/05/2019 10:01 AM CDT 03/05/2019 Narrative Resulting Agency Comment Lab Testing performed at: [facility] [place] [address] ??[facility] [id number] Sarika Edwards MD LAB - CHEMISTRY LISA THAYER [facility] INSURANCE BILL [address] [place] [address] * (ABNORMAL) IGA BLOOD (03/05/2019 10:01 AM CDT) IgA Quantitative 68(L) 87 - 352 mg/dL [facility] INSURANCE BILL Comment:FASTING Blood BLOOD SPECIMEN / Unknown 03/05/2019 10:01 AM CDT 03/05/2019 Narrative Resulting Agency Comment Lab Testing performed at: [facility] [place] [address] ??[facility] [id number] Sarika Edwards MD LAB - CHEMISTRY LISA THAYER [facility] INSURANCE BILL [address] [place] [address] * THYROID PEROXIDASE ANTIBODY (03/05/2019 10:01 AM CDT) Thyroid Peroxidase TPO Antibody 7 0 - 34 IU/mL [facility] INSURANCE BILL Comment:FASTING Blood BLOOD SPECIMEN / Unknown 03/05/2019 10:01 AM CDT 03/05/2019 Narrative Resulting Agency Comment Lab Testing performed at: [facility] [place] [address] ??[facility] [id number] Sarika Edwards MD LAB - CHEMISTRY LISA THAYER [facility] INSURANCE BILL [address] [place] [address] * TSH (03/05/2019 10:01 AM CDT) TSH 1.680 0.450 - 4.500 uIU/mL [facility] INSURANCE BILL Comment:FASTING Blood BLOOD SPECIMEN / Unknown 03/05/2019 10:01 AM CDT 03/05/2019 Narrative Resulting Agency Comment Lab Testing performed at: [facility] [place] [address] ??[facility] [id number] Sarika Edwards MD LAB - CHEMISTRY LISA THAYER Performing Organization Address City/[facility]/ZIP Co de Phone Number [facility] INSURANCE BILL [address] [place] [address] * THYROGLOBULIN ANTIBODY (03/05/2019 10:01 AM CDT) Thyroglobulin Antibody <1.0 0.0 - 0.9 IU/mL [facility] INSURANCE BILL Comment: Thyroglobulin Antibody measured by [employer] FASTING Blood BLOOD SPECIMEN / Unknown 03/05/2019 10:01 AM CDT 03/05/2019 Narrative Resulting Agency Comment Lab Testing performed at: [facility] [place] [address] ??[facility] [id number] Sarika Edwards MD LAB - CHEMISTRY LISA THAYER [facility] INSURANCE BILL [address] [place] [address] * T4 FREE (03/05/2019 10:01 AM CDT) T4 Free 1.18 0.82 - 1.77 ng/dL [facility] INSURANCE BILL Comment:FASTING Blood BLOOD SPECIMEN / Unknown 03/05/2019 10:01 AM CDT 03/05/2019 Narrative Resulting Agency Comment Lab Testing performed at: [facility] [address] ??[facility] [id number] Sarika Edwards MD LAB - CHEMISTRY ORDE RABLES Performing Organization Address [facility] de Phone Number [facility] INSURANCE BILL [address] [place] [address] * ERYTHROCYTE SEDIMENTATION RATE (03/05/2019 10:01 AM CDT) Erythrocyte Sedimentation Rate Westergren 2 0 - 32 mm/hr [facility] INSURANCE BILL Comment:FASTING Blood BLOOD SPECIMEN / Unknown 03/05/2019 10:01 AM CDT 03/05/2019 Narrative Resulting Agency Comment Lab Testing performed at: [address] ??[facility] [id number] Sarika Edwards MD LAB - HEMATOLOGY ORD ERABLES Performing Organization Address [facility] de Phone Number [employer] INSURANCE BILL [address] [place] [address] * C-REACTIVE PROTEIN (03/05/2019 10:01 AM CDT) C-Reactive Protein 0.3 0.0 - 4.9 mg/L [facility] INSURANCE BILL Comment: ? Effective March 29, [...] Resulting Agency Comment [facility]: [facility] [address] [facility] ??[facility] [id number] Sarika Jerry ONEIL LAB - CHEMISTRY LISA THAYER [facility] INSURANCE BILL [address] [place] [address] * COMPREHENSIVE METABOLIC PANEL (03/05/2019 10:01 AM [...] Agency Comment Lab Testing performed at: [facility] [place] [address] ??[facility] [id number] Sarika Edwards MD LAB - CHEMISTRY LISA THAYER [facility] INSURANCE BILL [address] [place] [address] * (ABNORMAL) CK BLOOD (03/05/2019 10:01 AM CDT) CK 244(H) 24 - 173 U/L [facility] INSURANCE BILL Comment:FASTING Blood BLOOD SPECIMEN / Unknown 03/05/2019 10:01 AM CDT 03/05/2019 Narrative Resulting Agency Comment Lab Testing performed at: [facility] [address] ??[facility] [id number] Sarika Edwards MD LAB - CHEMISTRY LISA THAYER [facility] INSURANCE BILL [address] [place] [address] * ALDOLASE (03/05/2019 10:01 AM CDT) Aldolase 5.0 3.3 - 10.3 U/L [facility] INSURANCE BILL Comment:FASTING Blood BLOOD SPECIMEN / Unknown 03/05/2019 10:01 AM CDT 03/05/2019 Narrative Resulting Agency Comment [facility] performed [facility]: [facility] [address] ??[facility] [id number] Sarika Edwards MD LAB - CHEMISTRY LISA THAYER Performing Organization Address [facility] Co de Phone Number [facility] INSURANCE BILL [address] [place] [address] * COMPLEMENT C3 (03/05/2019 10:01 AM CDT) Complement C3 113 82 - 167 mg/dL [facility] INSURANCE BILL Comment:FASTING Blood BLOOD SPECIMEN / Unknown 03/05/2019 10:01 AM CDT 03/05/2019 Narrative Resulting Agency Comment Lab Testing performed at: [facility] [place] [address] ??[facility] [id number] Sarika Edwards MD LAB - CHEMISTRY LISA THAYER Performing Organization Address [facility] Co de Phone Number [facility] INSURANCE BILL [address] [place] [address] * COMPLEMENT C4 (03/05/2019 10:01 AM CDT) Complement C4 24 14 - 44 mg/dL [facility] INSURANCE BILL Comment:FASTING Blood BLOOD SPECIMEN / Unknown 03/05/2019 10:01 AM CDT 03/05/2019 Narrative Resulting Agency Comment Lab Testing performed at: [facility] [address] ??[facility] [id number] Sarika Edwards MD LAB - SEROLOGY ORDER SILVIA Performing Organization Address [facility] de Phone Number [facility] INSURANCE BILL [address] [place] [address] * HISTONE ANTIBODY (03/05/2019 10:01 AM CDT) Anti-Histone Antibody 0.4 0.0 - 0.9 Units [facility] INSURANCE BILL Comment: ?Negative ?<1.0 ?Weak Positive ?1.0 - 1.5 ?Moderate Positive ??1.6 - 2.5 ?Strong Positive ? >2.5 FASTING Blood BLOOD SPECIMEN / Unknown 03/05/2019 10:01 AM CDT 03/05/2019 Narrative Resulting Agency Comment Lab Testing performed at: [address] ??[facility] [id number] Sarika Edwards MD LAB - CHEMISTRY LISA THAYER Performing Organization Address [facility] de Phone Number [facility] INSURANCE BILL [address] [place] [address] * SS-B (SJOGREN'S) ANTIBODY (03/05/2019 10:01 AM CDT) Sjogren's Antibodies (SSB) <0.2 0.0 - 0.9 [facility] INSURANCE BILL Comment:FASTING Blood BLOOD SPECIMEN / Unknown 03/05/2019 10:01 AM CDT 03/05/2019 Narrative Resulting Agency Comment Lab Testing performed at: [facility] [address] [facility] ??[facility] [id number] Sarika Edwards MD LAB - CHEMISTRY LISA THAYER Performing Organization Address [facility] de Phone Number [facility] INSURANCE BILL [address] [place] [address] * SS-A (SJOGREN'S) ANTIBODY (03/05/2019 10:01 AM CDT) Sjogren's Antibodies (SSA) <0.2 0.0 - 0.9 [facility] Comment:FASTING Blood BLOOD SPECIMEN / Unknown 03/05/2019 10:01 AM CDT 03/05/2019 Narrative Resulting Agency Comment [facility] performed [facility]: [facility] [address] ??[place] [id number] Sarika Edwards MD LAB - CHEMISTRY ORDE RABLES Performing Organization Address [facility]/ZIP Co de Phone Number [facility] INSURANCE BILL [address] [place] [address] * CHROMATIN ANTIBODY (03/05/2019 10:01 AM CDT) Antichromatin Antibodies 0.2 0.0 - 0.9 AI [facility] INSURANCE BILL Comment:FASTING Blood BLOOD SPECIMEN / Unknown 03/05/2019 10:01 AM CDT 03/05/2019 Narrative Resulting Agency Comment Lab Testing performed at: [place] [address] ??[place] [id number] Sarika Edwards MD LAB - SEROLOGY ORDER SILVIA Performing Organization Address [facility] de Phone Number [facility] INSURANCE BILL [address] [place] [address] * (ABNORMAL) FABIAN BLOOD SCREEN W/REFLEX TITER (03/05/2019 10:01 AM CDT) FABIAN Positive(A ) [facility] INSURANCE BILL Comment: ?Negative ?? <1:80 ?Borderline ??1:80 ?Positive ?? >1:80 FASTING Blood BLOOD SPECIMEN / Unknown 03/05/2019 10:01 AM CDT 03/05/2019 Narrative Resulting Agency Comment Lab Testing performed [facility]: [facility] [address] ??[facility] [id number] Sarika Edwards MD LAB - CHEMISTRY LISA THAYER [facility] INSURANCE BILL [address] [place] [address] documented in this encounter Visit Diagnoses Diagnosis Fibromyalgia- Primary Mylagia and myositis, unspecified FABIAN positive Other and unspecified nonspecific immunological findings Urticaria Myalgia Mylagia and myositis, unspecified Other fatigue documented in this encounter Care Teams Commercial Property Manager Relationship Specialty Start Date End Date Jonathan Amado MD [address] [place] [phone] PCP - General Family Medicine 06/24/13 09/14/23 Jonathan Amado MD [address] [place] [phone] 06/24/13 documented as of this encounter
--- OUTSIDE RECORDS SUMMARY | 2024-10-17 03:07 | XMS_ITS | Encounter Summary ---
Author Organization [facility] Address [facility] [place] [address] Care Team Providers Care Legal Services Manager Name Role Phone Jonathan Amado MD Primary Care Provider [phone] Jonathan Amado MD Unavailable [phone] Reason for Visit * Reason Comments Sinus Problem Encounter Details Date Type Department Care Team (Late st Contact Info) Description 04/24/2021 1:45 PM CDT Office Visit [facility] [address] [place] [phone] Grupo Brice MD [address] [place] [address] [place] [address] Chronic maxillary sinusitis (Primary Dx) Social History [...] Sign Reading Time Taken Comments Blood Pressure 108/78 04/24/2021 1:59 PM CDT Pulse 69 04/24/2021 1:59 PM CDT Temperature - - Respiratory Rate - - Oxygen Saturation - - Inhaled Oxygen Concentration - - Weight 70.8 kg (156 lb) 04/24/2021 1:59 PM CDT Height 162.6 cm (5' 4 ) 04/24/2021 1:59 PM CDT Body Mass Index 26.78 04/24/2021 1:59 PM CDT documented in this encounter Patient Instructions * Patient Instructions* Mercedes Olivier - 04/24/2021 2:05 PM CDT Thank you for visiting [facility] Otolaryngology - Head & Neck Surgery. We [...] it???s time for you to contact us. ??? To MAKE - CHANGE - CANCEL an office appointment If you become ill, need to be seen before your next scheduled appointment, or need to cancel or reschedule an appointment, please call our office at [phone] Friday through Friday from 8:30 am to4:30 pm. You can also request a routine appointment through your [employer] account. ??? Prescription Refills Contact your pharmacy to request all refills. The pharmacy will need to fax the request to us at . Please allow a minimum of 48-72 hours for your prescription to be completed. Your pharmacy will notify you when your prescription is ready to be picked up. ??? Medical Emergency / After Hours Contact Information If you have a medical emergency, please call 911 or go to the nearest emergency room. For urgent medical calls which cannot wait until the office opens, please call the medical exchangeat and ask the napkin machine operator to page the ENT physician retail center receptionist. *Caller ID blocking service will need to be turned off for your call to be returned. We also specialize in Hearing Aids, Allergy testing, swallowing disorders, voice problems, cancer diagnosis, and so much more. Visit our website at [email or web address] for information about our practice and an interactive health encyclopedia. Thank you for visiting [facility] Otolaryngology - Head & Neck Surgery. We [...] it???s time for you to contact us. ??? To MAKE - CHANGE - CANCEL an office appointment If you become ill, need to be seen before your next scheduled appointment, or need to cancel or reschedule an appointment, please call our office at [phone] Friday through Friday from 8:00 am to4:30 pm. You can also request a routine appointment through your [employer] account. ??? Prescription Refills Contact your pharmacy to request all refills. The pharmacy will need to fax the request to us at . Please allow a minimum of 48-72 hours for your prescription to be completed. ??? Medical Emergency / After Hours Contact Information If you have a medical emergency, please call 911 or go to the nearest emergency room. For urgent medical calls, which cannot wait until the office opens, please call the medical exchange at and ask the napkin machine operator to page the ENT physician retail center receptionist. *Caller ID blocking service will need to be turned off for your call to be returned. We also specialize in Hearing Aids, Allergy testing, swallowing disorders, voice problems, cancer diagnosis, and so much more. Visit our website at [email or web address] for information about our practice and an interactive health encyclopedia. Thank you for visiting [facility] Otolaryngology - Head & Neck Surgery. We [...] it???s time for you to contact us. ??? To MAKE - CHANGE - CANCEL an office appointment If you become ill, need to be seen before your next scheduled appointment, or need to cancel or reschedule an appointment, please call our office at [phone] Friday through Friday from 8:00 am to4:30 pm. You can also request a routine appointment through your [employer] account. ??? Prescription Refills Contact your pharmacy to request all refills. The pharmacy will need to fax the request to us at . Please allow a minimum of 48-72 hours for your prescription to be completed. ??? Medical Emergency / After Hours Contact Information If you have a medical emergency, please call 911 or go to the nearest emergency room. For urgent medical calls, which cannot wait until the office opens, please call the medical exchange at and ask the napkin machine operator to page the ENT physician retail center receptionist. *Caller ID blocking service will need to be turned off for your call to be returned. We also specialize in Hearing Aids, Allergy testing, swallowing disorders, voice problems, cancer diagnosis, and so much more. Visit our website at [email or web address] for information about our practice and an interactive health encyclopedia. documented in this encounter Progress Notes * Houston Abbasi MD - 04/24/2021 2:16 PM CDT History of Present Illness: Pina is a 51 year old female with h/o chronic hyperplastic rhinosinusitis who presents for evaluation of sinuses. Had been doing well since COVID started, but now thinks she has a sinus infection again. 4 weeks of symptoms, sneezing, facial pressure and pain, congestion, discolored discharge with sinus irrigations, decreased sense of smell. Exacerbated by going outside, no alleviating factors. Uses nasal saline irrigations, will add compounded budesonide and tobramycin when bad. Past Medical History: Past Medical History: Diagnosis [...] Anaphylaxis 0.3 mL 0 ??? ergocalciferol (DRISDOL) 47334 UNITS CAPS capsule Take 50,000 Units by mouth every 30 days. ??? fluticasone propionate (FLONASE) 50 MCG/ACT nasal spray [place] 2 Sprays into each nostril once daily. ??? ibuprofen (ADVIL) 200 MG capsule Take [...] Rash and Myalgias ??? Ciprofloxacin Myalgias ??? Gabapentin Headache ??? Septra [Sulfamethoxazole W-Trimethoprim] Urticaria and Rash ??? Ciprofloxacin Rash ??? Levaquin Rash ??? Compazine Syrup Anxiety Social History Tobacco Use ??? Smoking status: Never Smoker ??? Smokeless tobacco: Never Used Substance Use Topics ??? Alcohol use: No ??? Drug use: No Review of Systems: An 14 point review of systems was completed and negative except for: Pina reports the following:Nose: sinus pain, can't breath in the am sometimes Physical Examination: BP 108/78 Pulse 69 Ht 5' 4 (1.626 m) Wt 156 lb (70.8 kg) BMI 26.78 kg/m2 Body mass index is 26.78 kg/m??. Constitutional: in no apparent distress and [...] asymmetry, or inflammation Septum: Good alignment Turbinates: [place], non-edematous, without discharge Mucosa: [place], healthy appearing Oral Cavity: No perioral or [...] middle turbinate and the anterior ethmoid with drainagein this area culture taken from this spot. Condition: Stable. Patient tolerated procedure well. Complications: None I was present for the entirety of the procedure. Assessment and Plan: Pina is a 51 year old female with h/o chronic hyperplastic rhinosinusitis who presents for evaluation of sinuses. Significant right-sided mucosal edema on exam, left side normal with open middlemeatus, no purulence, polyps, masses. Will restart topicals (tobramycin, budesonide) for one month,follow up with Dr. Brice in 4 weeks. Houston Abbasi MD Otolaryngology-Head and Neck Surgery 04/24/21 I have seen and examined the patient and agree with the comments and findings in the above residentnote. The above note reflects a procedure that I performed in clinic. The resident surgeon assisted with the procedure and/or the procedural note. I was present for, and participated in, the entirety of the procedure. Grupo Brice M.D. Professor Patient with known history of recurrent hyperplastic rhinosinusitis. Recent onset of symptoms. Right-sided mucosal edema around the anterior part of the middle turbinate R ethmoid. Will start on topical tobramycin follow-up in 1 month at that, we will looking to see complete resolution of her symptoms. She wishes to stay away from oral prednisone as she is had problems with osteoporosis. * Mercedes Olivier - 04/24/2021 2:05 PM CDT Review of Systems Pina reports the following:Nose: sinus pain, can't breath in the am sometimes documented in this encounter Procedure Notes * Grupo Brice MD - 04/24/2021 3:50 PM CDTAssociated Order(s): PROC SINUS ENDOSCOPY Procedure(s): [facility] NASAL ENDOSCOPY,DX Pre-Procedure Diagnose(s): Chronic maxillary sinusitis [...] middle turbinate and the anterior ethmoid with drainagein this area culture taken from this spot. Condition: Stable. Patient tolerated procedure well. Complications: None I was present for the entirety of the procedure. documented in this encounter Plan of Treatment Upcoming Encounters Date Type Department Care Team (Late st Contact Info) Description 10/19/2024 3:40 PM HOT BLAST WORKER Clinical Support [facility] [address] [place] [phone] 10/26/2024 3:20 PM HOT BLAST WORKER Clinical Support [facility] [address] [place] [phone] 11/02/2024 3:40 PM HOT BLAST WORKER Clinical Support [facility] [address] [place] [phone] 11/09/2024 3:20 PM HOT BLAST WORKER Clinical Support [facility] [address] [place] [phone] documented as of this encounter Procedures Procedure Name Priority Date/Time Associated Diagnosis Comments [facility] NASAL ENDOSCOPY,DX Routine 04/24/2021 3:50 PM CDT Chronic maxillary sinusitis documented in this encounter Results * (ABNORMAL) CULTURE RESPIRATORY+GRAM STAIN (04/24/2021 4:58 PM CDT) Culture Rare Staphylococcus epidermidis(A) CHERELLE 04/27/2021 1:00 PM CDT [facility] Culture Rare Diphtheroids(A) CHERELLE 04/27/2021 1:00 PM CDT [facility] Gram Stain Rare Polymorphonuclear cells 04/27/2021 1:00 PM CDT [facility] Gram Stain Rare Gram-positive cocci 04/27/2021 1:00 PM CDT [facility] Microbiology SINUS / Unknown Collection / Unknown 04/24/2021 4:58 PM CDT 04/24/2021 7:49 PM CDT Grupo Brice MD LAB - MICROBIOLOGY O RDERABLES [facility] [address] [place] [address], [facility] [phone] * [facility] NASAL ENDOSCOPY,DX (04/24/2021 3:50 PM CDT) Narrative [...] documented in this encounter Care Teams Legal Services Manager Relationship Specialty Start Date End Date Jonathan Amado MD [address] [place] [phone] PCP - General Family Medicine 06/24/13 09/14/23 Jonathan Amado MD [address] [place] [phone] 06/24/13 documented as of this encounter
--- OUTSIDE RECORDS SUMMARY | 2024-10-17 03:07 | XMS_ITS | Encounter Summary ---
Author Organization [facility] Address [facility] [place] [address] Care Team Providers Care Extruder Operator Vertical Name Role Phone Jonathan Amado MD Primary Care Provider [phone] Jonathan Amado MD Unavailable [phone] Reason for Visit * Reason Comments Sinus Problem Sinus infection Encounter Details Date Type Department Care Team (Late st Contact Info) Description 01/28/2023 8:30 AM CDT Office Visit [facility] [address] [place] [phone] Grupo Brice MD [address] [place] [address] [place] [address] Nasal congestion (Primary Dx); Chronic cough Social History Tobacco Use Types Packs/Day Years [...] Sign Reading Time Taken Comments Blood Pressure 107/74 01/28/2023 8:48 AM CDT Pulse 68 01/28/2023 8:48 AM CDT Temperature - - Respiratory Rate - - Oxygen Saturation - - Inhaled Oxygen Concentration - - Weight 73.8 kg (162 lb 12.8 oz) 01/28/2023 8:48 AM CDT Height 162.6 cm (5' 4 ) 01/28/2023 8:48 AM CDT Body Mass Index 27.94 01/28/2023 8:48 AM CDT documented in this encounter Patient Instructions * Patient Instructions* Reta Wilcox MA - 01/28/2023 8:05 AM CDT Thank you for visiting [facility] Otolaryngology - Head & Neck Surgery. [...] an appointment, please call our office at [phone] Friday through Friday from 8:00 am to4:30 pm. You can also request a routine appointment through your [employer] account. Prescription Refills Contact your pharmacy to [...] the medical exchange at and ask the hay rake operator to page the ENT physician ssn/ssbn weapons equipment operator. *Caller ID blocking service will need to be turned off for your call to be returned. We also specialize in Hearing Aids, Allergy testing, swallowing disorders, voice problems, cancer diagnosis, and so much more. Visit our website at [email or web address] for information about our practice and an interactive health encyclopedia. documented in this encounter Progress Notes * Grupo Brice MD - 01/28/2023 9:17 AM CDT History of Present Illness: 52 year old with a h/o chronic hyperplastic rhinosinusitis s/p sinus surgeries who presents for evaluation of sinuses. 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 Examination today shows that there is purulence in the right middle meatus and the ethmoid sinus region and edematous changes to the mucosa worse on the right than the left. We will start on topical budesonide and tobramycin and follow-up in 4 weeks Endorses mold in her basement, and is process to get fixed. Endorses that she is starting new osteoporosis medication. Patient presents today after 1 month of symptoms. Predominantly she has had a cough. She presented to an urgent care facility which did a number of viral testing which were all negative. Patient is present to the freezer assistant Dr. Garcia at [facility] who has started her on Spiriva. The patient reports that she has been having some nasal congestion no nasal drainage. Was concernedthat her sinuses were the source of her cough and presents today for an evaluation. Past Medical History: Diagnosis Date ??? Cervical disc disease ??? Chronic interstitial cystitis ??? Disorder of maxillary sinus ??? Migraine PSH: has a past surgical history that includes tonsillectomy; ovarian cyst removal; hysterectomy; bladder procedure/surgery; sinus surgery; cholecystectomy, laparoscopic; and hysterectomy. Current Outpatient Medications Medication Sig Dispense Refill ??? B Complex-C (SUPER B COMPLEX PO) Take 1 tablet by mouth once daily (Patient not taking: Reported on 01/28/2023) ??? budesonide (Pulmicort) 0.5 MG/2ML nebulizer suspension Mix one vial in 240 ml of salt water (ptmay mix own saline). Irrigate half into each nostril two times/day. (Patient not taking: Reported on 01/28/2023) 120 mL 5 ??? Budesonide Add 1 capsule of 0.5mg or 0.6mg to 240ml saline (patient may mix own saline). Irrigate half in each nostril twice daily. 60 capsule 11 ??? cetirizine (ZYRTEC) 10 MG tablet Take 1 (one) tablet by mouth once daily ??? Cholecalciferol (VITAMIN D-3) 1000 UNITS Take 1,000 Units by mouth 2 times daily (Patient not taking: Reported on 01/28/2023) ??? clotrimazole (MYCELEX) 10 MG lozenge Take 10 mg by mouth 5 times daily while awake. (Patient not taking: Reported on 01/28/2023) ??? Cyanocobalamin (B-12) 1000 MCG Take 1,000 mcg by mouth once daily (Patient not taking: Reportedon 01/28/2023) ??? EPINEPHrine (EPIPEN) 0.3 MG/0.3ML auto-injector pen Inject 0.3 mL into muscle as needed for Anaphylaxis 0.3 mL 0 ??? ergocalciferol (DRISDOL) 1.25 MG (39267 UT) capsule Take 1 (one) capsule by mouth every 30 days ??? estradiol (Estrace) 0.1 MG/GM vaginal cream Insert 2 g into the vagina Two times a week ??? fluticasone propionate (FLONASE) 50 MCG/ACT nasal spray [place] 2 (two) sprays into each nostril once daily ??? hydroxychloroquine (PLAQUENIL) 200 MG tablet Take 400 mg by mouth once daily (Patient not taking: Reported on 01/28/2023) ??? ibuprofen (ADVIL) 200 MG capsule Take 200 mg by mouth 4 times daily as needed. (Patient not taking: Reported on 01/28/2023) ??? magnesium 250 MG tablet Take 250 mg by mouth once daily (Patient not taking: Reported on 01/28/2023) ??? Ondansetron HCl (ZOFRAN PO) Take 1 tablet by mouth as needed ??? pantoprazole EC (PROTONIX) 40 MG tablet Take 1 tablet by mouth once daily (Patient not taking: Reported on 01/28/2023) ??? predniSONE (Deltasone) 10 MG tablet 10mg, 4 tablets for 2 days. Then, 3 tablets for 2 days. Then, 2 tables for 2 days. Then 1 tablet for 2 days. (Total # of Pills: 20 ) (Patient not taking: Reported on 01/28/2023) 20 tablet 0 ??? Probiotic Product (ALIGN) 4 MG Take 1 capsule by mouth once daily (Patient not taking: Reportedon 01/28/2023) ??? Pseudoephedrine HCl (SUDAFED PO) Take 1 tablet by mouth as needed (Patient not taking: Reportedon 01/28/2023) ??? rizatriptan (MAXALT) 10 MG tablet Take 1 tablet by mouth once (Patient not taking: Reported on 01/28/2023) ??? sucralfate (Carafate) 1 GM tablet Take 1 tablet by mouth once daily (Patient not taking: Reported on 01/28/2023) ??? Tobramycin Add 1 capsule of 20mg to 240ml saline (patient may mix own saline). Irrigate half ineach nostril twice daily for 30 days. (Patient not taking: Reported on 01/28/2023) 0.12 g 0 No current facility-administered medications [...] Status: Alive ??? None Known Brother BP 107/74 (BP SITE: LEFT ARM, BP POSITION: SITTING, BP CUFF SIZE: 11) Pulse 68 Ht 1.626 m (5' 4 ) Wt [...] allergic edematous appearence, septum is midline externally. Right maxillary tenderness. Unable to visualize posteriorly so [...] mucopurulence in the nasal cavity no polyps. The middle and inferior turbinates have mild congestion nasopharynx is clear. Condition: Stable. Patient tolerated procedure well. Complications: None I was present for the entirety of the procedure. Assessment and Plan: Pina Reynaga is a 52 year old female who presented today nasal congestion and allergic rhinitis. Has last been infected and seen here in July. Did topical tobramycin and prednisone and symptoms resolved. Now with cough over the last month. Was tested for multiple virus at an urgent care near home all negative. Saw freezer assistant at [facility], started on Spiriva,. Examination today shows no evidence of paranasal sinus disease. There is no mucopurulence in the nasal cavity. Her cough is not of nasal origin. We did talk at length about allergy exposures and whether this is causing some of her symptoms. We will give her prescription for azelastine. I have askedher to follow-up with the freezer assistant. Fu prn documented in this encounter Procedure Notes * Grupo Brice MD - 01/28/2023 9:26 AM CDTAssociated Order(s): PROC SINUS ENDOSCOPY Procedure(s): [facility] NASAL ENDOSCOPY,DX Pre-Procedure Diagnose(s): Nasal congestion; Chronic cough Procedure Note Endoscopy Type: Nasal Endoscopy without [...] mucopurulence in the nasal cavity no polyps. The middle and inferior turbinates have mild congestion nasopharynx is clear. Condition: Stable. Patient tolerated procedure well. Complications: None I was present for the entirety of the procedure. documented in this encounter Plan of Treatment Upcoming Encounters Date Type Department Care Team (Late st Contact Info) Description 10/19/2024 3:40 PM DISABILITY EXAMINER Clinical Support [facility] [address] [place] [phone] 10/26/2024 3:20 PM DISABILITY EXAMINER Clinical Support [facility] [address] [place] [phone] 11/02/2024 3:40 PM DISABILITY EXAMINER Clinical Support [facility] [address] [place] [phone] 11/09/2024 3:20 PM DISABILITY EXAMINER Clinical Support [facility] [address] [place] [phone] documented as of this encounter Procedures Procedure Name Priority Date/Time Associated Diagnosis Comments [facility] NASAL ENDOSCOPY,DX Routine 01/28/2023 9:26 AM CDT Nasal congestion Chronic cough documented in this encounter Results * [facility] NASAL ENDOSCOPY,DX (01/28/2023 9:26 AM CDT) Narrative [...] diseases of nasal cavity and sinuses Chronic cough Cough documented in this encounter Care Teams Extruder Operator Vertical Relationship Specialty Start Date End Date Jonathan Amado MD [facility] [place] [phone] PCP - General Family Medicine 06/24/13 09/14/23 Jonathan Amado MD [facility] [place] [address] 06/24/13 documented as of this encounter
--- OUTSIDE RECORDS SUMMARY | 2024-10-17 03:07 | XMS_ITS | Encounter Summary ---
Author Organization [facility] Address [facility] [place] [address] Care Team Providers Care Candy Polisher Name Role Phone Jonathan Amado MD Primary Care Provider [phone] Jonathan Amado MD Unavailable [phone] Reason for Visit * Reason Onset Date Comments Sinusitis 06/29/2019 Encounter Details Date Type Department Care Team (Late st Contact Info) Description 07/05/2019 Telephone [facility] [address] [place], [place] [id number] Grupo Brice MD [address] [place] [address] Sinusitis Social History Tobacco Use Types Packs/Day [...] Telephone Encounter - Ai Lomeli RN - 07/06/2019 3:10 PM CDT 07/06 Spoke with pt, c/o green & yellow drainage at nose for about 1 week, temp to 98.9, losing voice, symptoms similar to previous infection. Currently using Zyrtec daily and budesonide in nasal irrigations BID. Mentions 35lb weight loss since Spring, taking Ensure BID. Has been seeing Dr. Adames (ID), an electronic typesetting machine operator and rotary shear worker helper about Ig levels, low platelets. Case discussed with Dr. Brice and call returned to patient: Repeat tobramycin nasal irrigations. Also encouraged increase oral fluids, call office if no improvement. Patient acknowledges understanding. * Telephone Encounter - Donmilviamiguel ángel Trisha - 07/05/2019 11:10 AM CDT Pt states she left a message for Ai to try to get an appointment to come in to see. Dr. Brice.I told her I saw the note in [employer] and I would remind Ai that she's waiting to hear back. She can be reached @ [phone]. documented in this encounter Plan of Treatment Upcoming Encounters Date Type Department Care Team (Late st Contact Info) Description 10/19/2024 3:40 PM RN IV THERAPY Clinical Support [facility] [address] [place] [phone] 10/26/2024 3:20 PM RN IV THERAPY Clinical Support [facility] [address] [place] [phone] 11/02/2024 3:40 PM RN IV THERAPY Clinical Support [facility] [address] [place] [phone] 11/09/2024 3:20 PM RN IV THERAPY Clinical Support [facility] [address] [place] [phone] documented as of this encounter Visit Diagnoses Not on filedocumented in this encounter Care Teams Candy Polisher Relationship Specialty Start Date End Date Jonathan Amado MD [address] [place] [phone] PCP - General Family Medicine 06/24/13 09/14/23 Jonathan Amado MD [address] [place] [phone] 06/24/13 documented as of this encounter
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
--- OUTSIDE RECORDS SUMMARY | 2024-10-17 03:07 | XMS_ITS | Encounter Summary ---
Author Organization [facility] Address [address] [place] [address] Care Team Providers Care Windchill Administrator Name Role Phone Jonathan Amado MD Primary Care Provider [phone]- [phone] Jonathan Amado MD Unavailable [phone] Encounter Details Date Type Department Care Team (Latest Contact Info) Description 05/24/2020 7:50 AM CDT - 05/24/2020 11:59 PM CDT Hospital Encounter [facility]RAW [facility] [address] [place] [address] Grupo Brice MD [address] [place] [address] Discharge Disposition: Home or Self Care Social [...] AM CDT documented as of this encounter Medications at Time of Discharge Medication Sig Dispensed Refills Start Date End Date cetirizine (ZYRTEC) 10 MG tablet Take 1 (one) tablet by mouth once daily as needed ergocalciferol (DRISDOL) 1.25 MG (28274 UT) capsule Take 1 (one) capsule by mouth every 30 days fluticasone propionate (FLONASE) 50 MCG/ACT nasal spray [place] 2 (two) sprays into each nostril once [...] twice daily for 30 days. 0.12 g 05/02/2020 06/20/2020 documented as of this encounter Plan of Treatment Upcoming Encounters Date Type Department Care Team (Late st Contact Info) Description 10/19/2024 3:40 PM DRAFTER GEOPHYSICAL Clinical Support [facility] [address] [place] [phone] 10/26/2024 3:20 PM DRAFTER GEOPHYSICAL Clinical Support [facility] [address] [place] [phone] 11/02/2024 3:40 PM DRAFTER GEOPHYSICAL Clinical Support [facility] [address] [place] [phone] 11/09/2024 3:20 PM DRAFTER GEOPHYSICAL Clinical Support [facility] [address] [place] [phone] documented as of this encounter Procedures Procedure Name Priority Date/Time Associated Diagnosis Comments CULTURE RESPIRATORY+GRAM STAIN (STL) Routine 05/24/2020 10:02 AM CDT Chronic maxillary sinusitis documented in this encounter Results * (ABNORMAL) CULTURE RESPIRATORY+GRAM STAIN (05/24/2020 10:02 AM CDT) Culture Moderate Serratia marcescens(A) CHERELLE 05/27/2020 8:[address] [facility]CRO[facility] Culture Moderate Acinetobacter species(A) CHERELLE 05/27/2020 8:[address] [facility] Gram Stain Rare Polymorphonuclear cells 05/27/2020 8:[address] [facility] Gram Stain Heavy Gram-negative bacilli 05/27/2020 8:[address] [facility]CRO[facility] Microbiology SINUS / Unknown Collection / Unknown 05/24/2020 10:02 AM CDT 05/24/2020 10:[address] [facility] - 05/27/2020 8:48 AM [...] Brice MD LAB - MICROBIOLOGY O RDERABLES [facility] [address] [place], [address] [phone] documented in this encounter Visit Diagnoses Diagnosis Chronic maxillary sinusitis documented in this encounter Care Teams Windchill Administrator Relationship Specialty Start Date End Date Jonathan Amado MD [address] [place] [phone] PCP - General Family Medicine 06/24/13 09/14/23 Jonathan Amado MD [facility] [place] [phone] 06/24/13 documented as of this encounter
--- OUTSIDE RECORDS SUMMARY | 2024-10-17 03:07 | XMS_ITS | Encounter Summary ---
Author Organization [facility] Address [address] [facility] [place] [address] Care Team Providers Care Magneto Repairer Name Role Phone Jonathan Amado MD Unavailable [phone] Jonathan Amado MD Primary Care Provider [phone] Reason for Visit * Reason Comments Immunotherapy Encounter Details Date Type Department Care Team (Latest Contact Info) Description 11/11/2023 3:40 PM POULTRY PICKER Clinical Support [facility] [address] [place] [phone] Allergic rhinitis due to pollen, unspecified [...] Progress Notes * Ai Lomeli, RN - 11/11/2023 3:35 PM CST This person is taking immunotherapy for previously diagnosed allergic rhinitis J30.1. Serum calculations have been reviewed by Dr. Ventura on 09/15/2023. . Allergy Individual Dosing Allergy extracts mixed: 09/24/2023 and 6 months after date mixed. date Minerva mix Mold mix Phenol saline Vial in [...] arm SQ -am 11/18/2022 0.22 0.25 0.05 11/25/2022 0.25 0.25 0.00 12/02/2022 0.25 0.25 0.00 12/09/2022 0.25 0.25 0.00 Epipen exp 12/2024 Physician in office: Dr. Brice Department of Otolaryngology Head and Neck Surgery Patient Name: Pina Reynaga : 1970 Date: 11/11/2023 1. Did you bring your Epi-pen with [...] have a temperature >101? no Injection time: 1530 Site: Right Upper Arm SQ Vial Contents [...] respiratory unlabored, steady on feet,voices no complaints. TRY PICKER documented in this encounter Plan of Treatment Upcoming Encounters Date Type Department Care Team (Late st Contact Info) Description 10/19/2024 3:40 PM POULTRY PICKER Clinical Support [facility] [address] [place] [phone] 10/26/2024 3:20 PM POULTRY PICKER Clinical Support [facility] [address] [place] [phone] 11/02/2024 3:40 PM POULTRY PICKER Clinical Support [facility] [address] [place] [phone] 11/09/2024 3:20 PM POULTRY PICKER Clinical Support [facility] [address] [place] [phone] documented as of this encounter Visit Diagnoses Diagnosis Allergic rhinitis due to pollen, unspecified seasonality- Primary documented in this encounter Care Teams Magneto Repairer Relationship Specialty Start Date End Date Jonathan Amado MD [address] [place] [phone] PCP - General Family Medicine 09/15/23 Jonathan Amado MD [address] [place] [phone] 06/24/13 documented as of this encounter
--- OUTSIDE RECORDS SUMMARY | 2024-10-17 03:07 | XMS_ITS | Encounter Summary ---
Author Organization [facility] Address [address] [facility] [place] [address] Care Team Providers Care Bioinformatics Support Specialist Name Role Phone Jonathan Amado MD Primary Care Provider [phone] Jonathan Amado MD Unavailable [phone] Encounter Details Date Type Department Care Team (Latest Contact Info) Description 04/24/2021 4:43 PM CDT - 04/24/2021 11:59 PM CDT Hospital Encounter [facility] OP [facility]RAW [facility] [address] [place] [phone] Grupo Brice MD [address] [place] [address] Discharge Disposition: Home or Self Care Social [...] daily as needed ergocalciferol (DRISDOL) 1.25 MG (73652 UT) capsule Take 1 (one) capsule by mouth every 30 days fluticasone propionate (FLONASE) 50 MCG/ACT nasal spray [place] 2 (two) sprays into each nostril once daily Pseudoephedrine HCl (SUDAFED PO) Take 1 tablet by mouth as needed B Complex-C (SUPER B COMPLEX PO) Take 1 tablet by mouth once daily 04/14/2023 budesonide (PULMICORT) 0.5 MG/2ML nebulizer suspension Mix one vial in 90-240 ml of salt water (pt may mix own saline). Irrigate half into each nostril two times/day. 120 mL 5 07/25/2020 04/09/2022 Cholecalciferol (VITAMIN D-3) 1000 UNITS Take 1,000 [...] by mouth 4 times daily as needed. magnesium 250 MG tablet Take 250 mg by mouth once daily 04/14/2023 Ondansetron HCl (ZOFRAN PO) Take 1 tablet by mouth as needed 09/15/2023 pantoprazole EC (PROTONIX) 40 MG tablet Take 1 tablet by mouth once daily 04/14/2023 Probiotic Product (ALIGN) 4 MG Take [...] twice daily for 30 days. 0.12 g 07/25/2020 04/27/2021 documented as of this encounter Plan of Treatment Upcoming Encounters Date Type Department Care Team (Late st Contact Info) Description 10/19/2024 3:40 PM MISSION SUPPORT SPECIALIST Clinical Support [facility] [address] [place] [phone] 10/26/2024 3:20 PM MISSION SUPPORT SPECIALIST Clinical Support [facility] [address] [place] [phone] 11/02/2024 3:40 PM MISSION SUPPORT SPECIALIST Clinical Support [facility] [address] [place] [phone] 11/09/2024 3:20 PM MISSION SUPPORT SPECIALIST Clinical Support [facility] [address] [place] [phone] documented as of this encounter Procedures Procedure Name Priority Date/Time Associated Diagnosis Comments CULTURE RESPIRATORY+GRAM STAIN (STL) Routine 04/24/2021 4:58 PM CDT Chronic maxillary sinusitis documented in this encounter Results * (ABNORMAL) CULTURE RESPIRATORY+GRAM STAIN (04/24/2021 4:58 PM CDT) Culture Rare Staphylococcus epidermidis(A) CHERELLE 04/27/2021 1:00 PM CDT [facility] Culture Rare Diphtheroids(A) CHERELLE 04/27/2021 1:00 PM CDT [facility] Gram Stain Rare Polymorphonuclear cells 04/27/2021 1:00 PM CDT [facility] Gram Stain Rare Gram-positive cocci 04/27/2021 1:00 PM CDT [facility]CRO[facility] Microbiology SINUS / Unknown Collection / Unknown 04/24/2021 4:58 PM CDT 04/24/2021 7:49 PM CDT Grupo Brice MD LAB - MICROBIOLOGY O RDERABLES [facility] [address] [place] [address], [facility] [phone] documented in this encounter Visit Diagnoses Diagnosis Chronic maxillary sinusitis documented in this encounter Care Teams Bioinformatics Support Specialist Relationship Specialty Start Date End Date Jonathan Amado MD [address] [place] [phone] PCP - General Family Medicine 06/24/13 09/14/23 Jonathan Amado MD [address] [place] [phone] 06/24/13 documented as of this encounter
--- OUTSIDE RECORDS SUMMARY | 2024-10-17 03:07 | XMS_ITS | Encounter Summary ---
Author Organization [facility] Address [facility] [place] [address] Care Team Providers Care Routing Clerk Name Role Phone Jonathan Amado MD Primary Care Provider [phone]- [phone] Jonathan Amado MD Unavailable Reason for Visit * Reason Comments Sinusitis Encounter Details Date Type Department Care Team (Late st Contact Info) Description 07/25/2020 4:00 PM CDT Office Visit [facility] [address] [place] [phone] Grupo Brice MD [address] [place] [address] [place] [address] Nasal congestion (Primary Dx); Chronic maxillary sinusitis [...] Sign Reading Time Taken Comments Blood Pressure 118/81 07/25/2020 4:16 PM CDT Pulse 58 07/25/2020 4:16 PM CDT Temperature - - Respiratory Rate - - Oxygen Saturation - - Inhaled Oxygen Concentration - - Weight 68 kg (150 lb) 07/25/2020 4:16 PM CDT Height 162.6 cm (5' 4 ) 07/25/2020 4:16 PM CDT Body Mass Index 25.75 07/25/2020 4:16 PM CDT documented in this encounter Patient Instructions * Patient Instructions* Nuvia Hurst - 07/25/2020 4:15 PM CDT Thank you for visiting [facility] - Head & Neck Surgery. We [...] an appointment, please call our office at [phone] Friday through Friday from 8:30 am to4:30 pm. You can also request a routine appointment through your [employer] account. Prescription Refills Contact your pharmacy to [...] call the medical exchangeat and ask the speeder operator to page the ENT physician montessori toddler teacher. *Caller ID blocking service will need to be turned off for your call to be returned. We also specialize in Hearing Aids, Allergy testing, swallowing disorders, voice problems, cancer diagnosis, and so much more. Visit our website at [email or web address] for information about our practice and an interactive healthencyclopedia. documented in this encounter Progress Notes * Grupo Brice MD - 07/25/2020 4:42 PM CDT History of Present Illness: Pina is a 50 year old female who presents for evaluation of sinuses. Has long standing chronichyperplastic rhinosinusitis. Over the last 2 months the following has happened. Last Seen 06/20/2020 Continue topical budesonide and tobramycin Unclear why she continues to have these problems. Have recultured today and we'll check the culture results to see if there is now resistance or new organism. May need to consider topical antifungal medications. 2 rounds of steroids have not satisfactorily eliminated her symptoms. FU in 4weeks. 05/30/2020 Started budesonide and Tobramycin irrigations. Reports little to no significant improvement. Has been seen again in urgent care. Complained loss of smell, headache, shortness of breath. Covid 19 -- non detected. Did not receive any treatment from urgent care. Has completed Tobramycin over a week ago. Still using the budesonide 2 times a day. Gets thick dried mucous concretions from nose when irrigates. Was given 16 days of prednisone last visit. Reports today that she still has an infection on the left side. Finished Tobramycin nasal irrigations 2 days ago Still using Budesonide irrigations. 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 Recommended by customs opener verifier packer to maintain social distancing and to not [...] Anaphylaxis 0.3 mL 0 ??? ergocalciferol (DRISDOL) 88583 UNITS CAPS capsule Take 50,000 Units by mouth every 30 days. ??? estradiol (VAGIFEM) 10 MCG vaginal tablet Insert 10 mcg into the vagina Two times a week ??? fluticasone propionate (FLONASE) 50 MCG/ACT nasal spray [place] 2 Sprays into each nostril once daily. [...] daily for 30 days. 0.12 g 0 ??? Vitamins-Lipotropics (COMPLEX B-100) TBCR Take 1 capsule by mouth once daily No current facility-administered medications for this visit. [...] and jaw has pain Physical Examination: BP 118/81 (BP SITE: LEFT ARM, BP POSITION: SITTING, BP CUFF SIZE: 11) Pulse 58 Ht 5' 4 (1.626 m) Wt 150 lb (68 kg) BMI 25.75 kg/m2 Body mass index is 25.75 kg/m??. Constitutional: in no apparent distress and [...] asymmetry, or inflammation Septum: Good alignment Turbinates: [place], non-edematous, without discharge Mucosa: [place], healthy appearing Oral Cavity: No perioral or [...] Polymorphonuclear cells Heavy Gram-negative bacilli Resulting Agency: [facility] Susceptibility Serratia marcescens CHERELLE Amikacin <=2 ug/mL [...] findings were noted as stated below: Findings: congested mucosa bilaterally, purulence in the middle meatus and in the left maxillary sinus Condition: Stable. Patient tolerated procedure well. Complications: None I was present for the entirety of the procedure. Assessment and Plan: Pina is a 50 year old female with recurrent sinusitis. Continue topical budesonide and tobramycin unclear why she continues to have these problems. Have recultured today and we'll check the culture results to see if there is now resistance or new organism. FU in 4weeks. * Nuvia Hurst - 07/25/2020 4:11 PM CDT Review of Systems Pina reports the following:Ears: ear pain Nose: sinus pain, post nasal drainage, congestion Throat: frequent soreness or swelling documented in this encounter Plan of Treatment Upcoming Encounters Date Type Department Care Team (Late st Contact Info) Description 10/19/2024 3:40 PM TECHNICAL STAFF ASSISTANT Clinical Support [facility] - [facility] [address] [place] [phone] 10/26/2024 3:20 PM TECHNICAL STAFF ASSISTANT Clinical Support [facility] [address] [place] [phone] 11/02/2024 3:40 PM TECHNICAL STAFF ASSISTANT Clinical Support [facility] [address] [place] [phone] 11/09/2024 3:20 PM TECHNICAL STAFF ASSISTANT Clinical Support [facility] [address] [place] [phone] documented as of this encounter Visit Diagnoses Diagnosis Nasal congestion- Primary Other diseases of nasal cavity and sinuses Chronic maxillary sinusitis documented in this encounter Care Teams Routing Clerk Relationship Specialty Start Date End Date Jonathan Amado MD [address] [place] [phone] PCP - General Family Medicine 06/24/13 09/14/23 Jonathan Amado MD [address] [place] [phone] 06/24/13 documented as of this encounter
--- OUTSIDE RECORDS SUMMARY | 2024-10-17 03:07 | XMS_ITS | Encounter Summary ---
Author Organization [facility] Address [facility] [facility] [place] [address] Care Team Providers Care Process Mold Technician Name Role Phone Jonathan Amado MD Primary Care Provider [phone]- [phone] Jonathan Amado MD Unavailable [phone] Encounter Details Date Type Department Care Team (Latest Contact Info) Description 04/24/2021 Travel Social History Tobacco Use Types Packs/Day [...] st Contact Info) Description 10/19/2024 3:40 PM COMPUTATIONAL CHEMIST Clinical Support [facility] [address] [place] [phone] 10/26/2024 3:20 PM COMPUTATIONAL CHEMIST Clinical Support [facility] [address] [place] [phone] 11/02/2024 3:40 PM COMPUTATIONAL CHEMIST Clinical Support [facility] [address] [place] [phone] 11/09/2024 3:20 PM COMPUTATIONAL CHEMIST Clinical Support [facility] [address] [place] [phone] documented as of this encounter Visit Diagnoses Not on filedocumented in this encounter Care Teams Process Mold Technician Relationship Specialty Start Date End Date Jonathan Amado MD [facility] [place] [phone] PCP - General Family Medicine 06/24/13 09/14/23 Jonathan Amado MD [address] [place] [phone] 06/24/13 documented as of this encounter
--- OUTSIDE RECORDS SUMMARY | 2024-10-17 03:07 | XMS_ITS | Encounter Summary ---
Author Organization [facility] Address [address] [facility] [place] [address] Care Team Providers Care Sign Designer Name Role Phone Jonathan Amado MD Primary Care Provider [phone]- [phone] Jonathan Amado MD Unavailable [phone] Reason for Visit * Reason Comments Sinus Problem Encounter Details Date Type Department Care Team (Late st Contact Info) Description 04/14/2023 1:30 PM CDT Office Visit [facility] - [facility] [address] [place] [phone] Grupo Brice MD [address] DEPT [place] [address] Nasal congestion (Primary Dx); Chronic maxillary sinusitis [...] Sign Reading Time Taken Comments Blood Pressure 119/71 04/14/2023 1:19 PM CDT Pulse 63 04/14/2023 1:19 PM CDT Temperature - - Respiratory Rate - - Oxygen Saturation - - Inhaled Oxygen Concentration - - Weight 73 kg (161 lb) 04/14/2023 1:19 PM CDT Height 162.6 cm (5' 4 ) 04/14/2023 1:19 PM CDT Body Mass Index 27.64 04/14/2023 1:19 PM CDT documented in this encounter Patient Instructions * Patient Instructions* Deirdre Lee - 04/14/2023 1:19 PM CDT Thank you for visiting [facility] Ot[facility] - Head & Neck Surgery. [...] an appointment, please call our office at [phone] Friday through Friday from 8:30 am to4:30 pm. You can also request a routine appointment through your [employer] account. Prescription Refills Contact your pharmacy to [...] the medical exchange at and ask the coal cutting machine operator to page the ENT physician insurance healthcare consultant. *Caller ID blocking service will need to be turned off for your call to be returned. We also specialize in Hearing Aids, Allergy testing, swallowing disorders, voice problems, cancer diagnosis, and so much more. Visit our website at [email or web address] for information about our practice and an interactive health encyclopedia. documented in this encounter Progress Notes * Grupo Brice MD - 04/14/2023 2:04 PM CDT History of Present Illness: 53 [...] her basement, and is process to get fixed-this has been completed. Endorses that she is starting new osteoporosis medication. Recently has had drainage and the thick allergic mucin from her nose. Started topical tobramycin and is here to day to see if symptoms improved. Still complaining of congestion and new memory loss. COncerned she has MRSA Past Medical History: Diagnosis Date ??? Cervical disc disease ??? Chronic interstitial cystitis ??? Disorder of maxillary sinus ??? Migraine PSH: has a past surgical history that includes tonsillectomy; ovarian cyst removal; hysterectomy; bladder procedure/surgery; sinus surgery; cholecystectomy, laparoscopic; and hysterectomy. Current Outpatient Medications Medication Sig Dispense Refill ??? azelastine (Astepro) 205.5 MCG/SPRAY nasal spray [place] 2 (two) sprays into each nostril 2 timesdaily 90 mL 4 ??? Budesonide Add 1 capsule of 0.5mg or 0.6mg to 240ml saline (patient may mix own saline). Irrigate half in each nostril twice daily. 60 capsule 11 ??? cetirizine (ZYRTEC) 10 MG tablet Take 1 (one) tablet by mouth once daily ??? ergocalciferol (DRISDOL) 1.25 MG (54644 UT) capsule Take 1 (one) capsule by mouth every 30 days ??? estradiol (Estrace) 0.1 MG/GM vaginal cream Insert 2 g into the vagina Two times a week ??? fluticasone propionate (FLONASE) 50 MCG/ACT nasal spray [place] 2 (two) sprays into each nostril once daily ??? hydroxychloroquine (PLAQUENIL) 200 MG tablet Take 400 mg by mouth once daily (Patient not taking: Reported on 01/28/2023) ??? Ondansetron HCl (ZOFRAN PO) Take 1 tablet by mouth as needed (Patient not taking: Reported on 04/14/2023) ??? Pseudoephedrine HCl (SUDAFED PO) Take 1 [...] Status: Alive ??? None Known Brother BP 119/71 Pulse 63 Ht 1.626 m (5' 4 ) Wt 73 kg (161 lb) Physical Exam: Constitutional: Alert, No acute Distress; [...] without evidence of edema swelling or infection. Easy transillumination of the frontal sinuses bilaterally. Maxillary sinuses are open and looking thefloor the maxillary sinuses there is no accumulated fluid or infection. There is mild edematous chau ges to the mucosa of the anterior middle turbinate bilaterally but there is no evidence of infection or significant obstruction. There are no polyp formation. Condition: Stable. Patient tolerated procedure well. Complications: None I was present for the entirety of the procedure. Assessment and Plan: Pina Reynaga is a 53 year old female who presented today after recently having an episode of significant nasal drainage and heavy mucus production. We had given her a topical course of tobramycin to use and she presents today saying her symptoms have improved except she was complaining of some memory loss. 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 Examination today shows no evidence of paranasal sinus disease. The recent infection that she had has resolved with topical tobramycin treatment. At this time there is no new recommendations with regards to her sinus disease. There was concern whether that she had some type of infection that was accounting for some of her other vague symptoms such as memory loss. I do not believe that her sinus disease is related to this. I have asked her to follow-up with her primary care doctor regards to many of the subjective symptoms she is experiencing such as memory loss She will follow-up with us if she develops any new sinus symptoms. Fu prn documented in this encounter Procedure Notes * Grupo Brice MD - 04/14/2023 3:19 PM CDTAssociated Order(s): PROC SINUS ENDOSCOPY Procedure(s): HI NASAL ENDOSCOPY,DX Pre-Procedure Diagnose(s): Nasal congestion; Chronic [...] without evidence of edema swelling or infection. Easy transillumination of the frontal sinuses bilaterally. Maxillary sinuses are open and looking thefloor the maxillary sinuses there is no accumulated fluid or infection. There is mild edematous chau ges to the mucosa of the anterior middle turbinate bilaterally but there is no evidence of infection or significant obstruction. There are no polyp formation. Condition: Stable. Patient tolerated procedure well. Complications: None I was present for the entirety of the procedure. documented in this encounter Plan of Treatment Upcoming Encounters Date Type Department Care Team (Late st Contact Info) Description 10/19/2024 3:40 PM BOOKS SALESPERSON Clinical Support [facility] [address] [place] [phone] 10/26/2024 3:20 PM BOOKS SALESPERSON Clinical Support [facility] [address] [place] [phone] 11/02/2024 3:40 PM BOOKS SALESPERSON Clinical Support [facility] [address] [place] [phone] 11/09/2024 3:20 PM BOOKS SALESPERSON Clinical Support [facility] [address] [place] [phone] documented as of this encounter Procedures Procedure Name Priority Date/Time Associated Diagnosis Comments HI NASAL ENDOSCOPY,DX Routine 04/14/2023 3:19 PM CDT Nasal congestion Chronic maxillary sinusitis documented in this encounter Results * HI NASAL ENDOSCOPY,DX (04/14/2023 3:19 PM CDT) Narrative [...] sinusitis documented in this encounter Care Teams Sign Designer Relationship Specialty Start Date End Date Jonathan Amado MD [address] [place] [phone] PCP - General Family Medicine 06/24/13 09/14/23 Jonathan Amado MD [facility] [place] [phone] 06/24/13 documented as of this encounter
--- OUTSIDE RECORDS SUMMARY | 2024-10-17 03:08 | XMS_ITS | Encounter Summary ---
Author Organization [facility] Address [address] [facility] [place] [address] Care Team Providers Care Value Analyst Name Role Phone Jonathan Amado MD Primary Care Provider [phone]- [phone] Jonathan Amado MD Unavailable [phone] Reason for Visit * Reason Onset Date Comments Medication Prior Auth Request 06/03/2018 Nav calderon approved through 06/03/19 Encounter Details Date Type Department Care Team (Late st Contact Info) Description 06/03/2018 Telephone [facility] [address] [address] Ai Lomeli, tube balancer Prior Auth Request (Deja approved through 06/03/19) Social History Tobacco Use Types Packs/Day Years [...] Telephone Encounter - Ai Lomeli, RN - 06/03/2018 9:48 AM CDT [facility] sends PA request, completed through Covermymeds. Per pt at [facility] visit 06/02: Pt reports sample Pazeo did help. Zatidor provided relief for about 1 hour. No relief with Visine. Previously had tried Pataday, also only provided temporary relief. Deja approved 05/04/18 to 06/03/19, caseID [id number]. [facility] staff notified at 0945, indicates prescription goes through for $30 cost to pt. documented in this encounter Plan of Treatment Upcoming Encounters Date Type Department Care Team (Late st Contact Info) Description 10/19/2024 3:40 PM VENDOR MANAGEMENT CONSULTANT Clinical Support [facility] [address] [place] [phone] 10/26/2024 3:20 PM VENDOR MANAGEMENT CONSULTANT Clinical Support [facility] [address] [place] [phone] 11/02/2024 3:40 PM VENDOR MANAGEMENT CONSULTANT Clinical Support [facility] [address] [place] [phone] 11/09/2024 3:20 PM VENDOR MANAGEMENT CONSULTANT Clinical Support [facility] [address] [place] [phone] documented as of this encounter Visit Diagnoses Not on filedocumented in this encounter Care Teams Value Analyst Relationship Specialty Start Date End Date Jonathan Amado MD [address] [place] [phone] PCP - General Family Medicine 06/24/13 09/14/23 Jonathan Amado MD [address] [place] [phone] 06/24/13 documented as of this encounter
--- OUTSIDE RECORDS SUMMARY | 2024-10-17 03:08 | XMS_ITS | Encounter Summary ---
Author Organization [facility] Address [address] [facility] [place] [address] Care Team Providers Care Handicrafts Teacher Name Role Phone Jonathan Amado MD Primary Care Provider [phone]- [phone] Jonathan Amado MD Unavailable [phone] Reason for Visit * Reason Comments Immunotherapy Encounter Details Date Type Department Care Team (Latest Contact Info) Description 05/19/2018 10:30 AM CDT Clinical Support [facility] [address] [address] Allergic rhinitis due to pollen, unspecified seasonality [...] * Patient Instructions* Charleen North RN - 05/19/2018 12:02 PM CDT Reviewed treatment for local reaction [...] closest Emergency Department. Please inform office at [phone] ([facility] office nurse line) after you have been treated. documented in this encounter Progress Notes * Charleen North RN - 05/19/2018 12:01 PM CDT Serum calculations have been reviewed by Dr. Arellano. Serum compounded into 7 individual dose vialsand mailed to patient. Date Tree Mix [place] Mix Mold Mix Phenol Normal Saline SIGNATURE AND LOCATION 04/07/2018 0.25 0.25 0.12 0.13 Left upper arm SQ-sb 04/0904/14/2018 0.25 0.25 0.25 Right upper arm SQ on 04/21 -am 04/28/2018 0.25 0.25 0.25 Right and left upper arm SQ-sb 05/0505/12/2018 0.25 0.25 0.25 Right and left upper arm Sq-sb 05/1905/26/2018 0.25 0.25 0.25 06/09/2018 0.25 0.25 0.25 06/23/2018 0.25 0.25 0.25 Department of Otolaryngology Head and Neck Surgery Patient Name: Pina Reynaga : 1970 Date: 05/19/2018 1. Did you bring your Epi-pen with you to clinic today? Yes 2. How are you feeling today? OK, 3. How have you been feeling since your last shot? OK A. What symptoms do you have? Sneezy; itchy ears and eyes B. When do you have these symptoms? varies C. Are your symptoms mild, moderate or severe? moderate 4. How has your asthma been? n/a 5. Are you having trouble breathing today? No 6. Have you had any problems with angioedema? No 7. Any local reactions from your last shot? Yes, quarter sized red area 8. Are you on any beta margy antihypertensives? No 9. Have you taken any antihistamines since your last visit? Yes: nightly 10. Do you have a temperature >101? no Injection time: 0920 Site: Right and Left Upper Arm SQ Vial Contents diluted with 0.5ml Normal Saline yes No injection given due to Reaction: No Action taken: Benadryl cream to bilateral injection sites 0940Time ambulatory from clinic in no distress, color pink, respiratory unlabored, steady on feet, voices no complaints -- after MD appointment. UCTS MECHANICAL DESIGN ENGINEER documented in this encounter Plan of Treatment Upcoming Encounters Date Type Department Care Team (Late st Contact Info) Description 10/19/2024 3:40 PM PRODUCTS MECHANICAL DESIGN ENGINEER Clinical Support [facility] [address] [place] [phone] 10/26/2024 3:20 PM PRODUCTS MECHANICAL DESIGN ENGINEER Clinical Support [facility] [address] [place] [phone] 11/02/2024 3:40 PM PRODUCTS MECHANICAL DESIGN ENGINEER Clinical Support [facility] [address] [place] [phone] 11/09/2024 3:20 PM PRODUCTS MECHANICAL DESIGN ENGINEER Clinical Support [facility] [address] [place] [phone] documented as of this encounter Visit Diagnoses Diagnosis Allergic rhinitis due to pollen, unspecified seasonality- Primary documented in this encounter Care Teams Handicrafts Teacher Relationship Specialty Start Date End Date Jonathan Amado MD [address] [place] [phone] PCP - General Family Medicine 06/24/13 09/14/23 Jonathan Amado MD [address] [place] [phone] 06/24/13 documented as of this encounter
--- OUTSIDE RECORDS SUMMARY | 2024-10-17 03:08 | XMS_ITS | Encounter Summary ---
Author Organization [facility] Address [facility] [place] [address] Care Team Providers Care Plastic Welder Name Role Phone Jonathan Amado MD Primary Care Provider [phone] Jonathan Amado MD Unavailable [phone] Reason for Visit * Reason Comments Congestion Encounter Details Date Type Department Care Team (Late st Contact Info) Description 12/08/2018 3:30 PM TRADES HELPER Office Visit [facility] Otolaryngology [address] [address] Grupo Brice MD [address] [place] [address] Chronic maxillary sinusitis (Primary Dx) Social History [...] Sign Reading Time Taken Comments Blood Pressure 118/69 12/08/2018 4:00 PM TRADES HELPER Pulse 59 12/08/2018 4:00 PM TRADES HELPER Temperature - - Respiratory Rate - - Oxygen Saturation - - Inhaled Oxygen Concentration - - Weight 73 kg (161 lb) 12/08/2018 4:00 PM TRADES HELPER Height 162.6 cm (5' 4 ) 12/08/2018 4:00 PM TRADES HELPER Body Mass Index 27.64 12/08/2018 4:00 PM TRADES HELPER documented in this encounter Patient Instructions * Patient Instructions* Yoana Parsons - 12/08/2018 4:00 PM TRADES HELPER Thank you for visiting [facility] Otolaryngology - Head & Neck [...] an appointment, please call our office at [phone] Friday through Friday from 8:30 am to4:30 pm. You can also request a routine appointment through your [employer] account. ??? Prescription Refills Contact your pharmacy [...] the medical exchange at and ask the boring machine operator to page the ENT physician production tester. *Caller ID blocking service will need to be turned off for your call to be returned. We also specialize in Hearing Aids, Allergy testing, swallowing disorders, voice problems, cancer diagnosis, and so much more. Visit our website at [email or web address] for information about our practice and an interactive health encyclopedia. ES HELPER documented in this encounter Progress Notes * Grupo Brice MD - 12/08/2018 4:19 PM CST History of Present Illness: Pina is a 48 y.o. female who presents for follow up of her recurrent R sided maxillary sinusitis, well known to our clinic. Her symptoms are related to work place exposures. Since last visit, patient has been doing well without recurrence of symptoms. Currently on budesonide rinses. None of the usual complaints - facial pain/pressure, purulent nasal drainage. Past Medical History: Past Medical History: Diagnosis Date ??? Disorder of maxillary sinus Past Surgical History: Procedure Laterality Date ??? Cholecystectomy, Laparoscopic ??? Hysterectomy endometrosis Family History Problem Relation Age of Onset ??? Psoriasis Mother Status: Alive ??? Arthritis - Osteo Mother ??? Hypertension Father Status: Alive ??? None Known Brother Current Outpatient Prescriptions Medication Sig Dispense Refill ??? budesonide (PULMICORT) 0.5 MG/2ML nebulizer suspension Mix one vial in 90- 120 cc of salt water.Irrigate half into each nostril two times/day. 60 vial 11 ??? cetirizine (ZYRTEC) 10 MG tablet Take 10 mg by mouth once daily ??? Cholecalciferol (VITAMIN D-3) 1000 UNITS Take 1,000 Units by mouth 2 times daily ??? Cyanocobalamin (B-12) 1000 MCG Take 1,000 mcg by mouth ??? EPINEPHrine (EPIPEN) 0.3 MG/0.3ML auto-injector pen Inject 0.3 mg into muscle. 1 Each 0 ??? magnesium 250 MG tablet Take 250 mg by mouth once daily ??? pantoprazole EC (PROTONIX) 40 MG tablet Take 40 mg by mouth BID. 5 ??? Pyridoxine HCl (B-6) 100 MG Take [...] Sulfa Drugs Rash and Myalgias ??? Ciprofloxacin Rash ??? Levaquin Rash ??? Compazine Syrup Anxiety Social History Substance Use Topics ??? Smoking status: Never Smoker ??? Smokeless tobacco: Never Used ??? Alcohol use No Review of Systems: An 14 point review of systems was completed and negative except for: Pina Reynaga reports the following; pt has no complaints of any symptoms today. Physical Examination: BP 118/69 Pulse 59 Ht 5' 4 (1.626 m) Wt 161 lb (73 kg) BMI 27.64 kg/m2 Body mass index is 27.64 kg/(m^2). Constitutional: in no apparent distress and well [...] asymmetry, or inflammation Septum: Good alignment Turbinates: [place], non-edematous, without discharge Mucosa: [place], healthy appearing Oral Cavity: No perioral or [...] color, texture normal. No rashes or lesions Assessment and Plan: Pina is a 48 y.o. female with recurrent R maxillary sinusitis related to fungal exposures at work, now with resolution of symptoms. - continue budesonide rinses - continue avoiding workplace triggers - RTC PRN or if recurrent symptoms Leia Yanez MD Otolaryngology - Head and Neck Surgery PGY-2 I have seen and examined the patient and agree with the comments and findings in the above residentnote. I was present for the entirety of the procedure Grupo Brice M.D. Professor No disease today. COntinue irrgiations with budesonide ES HELPER * Yoana Parsons - 12/08/2018 4:01 PM CST Review of Systems Pina Reynaga reports the following; pt has no complaints of any symptoms today. ES HELPER documented in this encounter Plan of Treatment Upcoming Encounters Date Type Department Care Team (Late st Contact Info) Description 10/19/2024 3:40 PM TRADES HELPER Clinical Support [facility] - ENT [address] [place] [phone] 10/26/2024 3:20 PM TRADES HELPER Clinical Support [facility] - ENT [address] [place] [phone] 11/02/2024 3:40 PM TRADES HELPER Clinical Support [facility] - ENT [address] [place] [phone] 11/09/2024 3:20 PM TRADES HELPER Clinical Support [facility] - ENT [address] [place] [phone] documented as of this encounter Visit Diagnoses Diagnosis Chronic maxillary sinusitis- Primary documented in this encounter Care Teams Plastic Welder Relationship Specialty Start Date End Date Jonathan Amado MD [facility] [place] [address] PCP - General Family Medicine 06/24/13 09/14/23 Jonathan Amado MD [address] [place] [phone] 06/24/13 documented as of this encounter
--- OUTSIDE RECORDS SUMMARY | 2024-10-17 03:08 | XMS_ITS | Encounter Summary ---
Author Organization [facility] Address [address] [facility] [place] [address] Care Team Providers Care Foreman/Pile Driving And Erection Name Role Phone Jonathan Amado MD Primary Care Provider [phone] Jonathan Amado MD Unavailable [phone] Reason for Visit * Reason Comments Immunotherapy Encounter Details Date Type Department Care Team (Latest Contact Info) Description 08/11/2018 3:30 PM CDT Clinical Support [facility] Otolaryngology [address] [address] Allergic rhinitis due to pollen, unspecified seasonality [...] of this encounter Progress Notes * Ai Lomeli RN - 08/11/2018 4:04 PM CDT Serum calculations have been reviewed by Dr. Arellano. Serum compounded into 7 individual dose vialsand mailed to patient. Date Tree Mix [place] Mix Mold Mix Phenol Normal Saline SIGNATURE AND LOCATION 07/14/2018 0.12 0.12 0.12 0.40 Right upper arm SQ-sb 07/21/2018 0.25 0.25 0.25 Right upper arm SQ on 1016 -am 08/04/2018 0.25 0.25 0.25 Right upper arm SQ on 08/11 -am 08/18/2018 0.25 0.25 0.25 09/01/2018 0.25 0.25 0.25 09/15/2018 0.25 0.25 0.25 09/29/2018 0.25 0.25 0.25 Department of Otolaryngology Head and Neck Surgery Patient Name: Pina Reynaga : 1970 Date: 08/11/2018 1. Did you bring your Epi-pen with you to clinic today? Yes 2. How are you feeling today? lousy 3. How have you been feeling since your last shot? OK until 08/06, started with nasal congestion and sneezing; coworkers were worried. Saw PCP on 08/07, started Z Pack & cough medicine with codeine but also guiafenisin, which kept pt awake. z pack helped a little. A. What symptoms do you have? Scratchy throat, sinus pressure, PND. Also saw Dr. Brice today B. When do you have these symptoms? Constant; nasal congestion worse at night. C. Are your symptoms mild, moderate or severe? mild 4. How has your asthma been? OK [...] have a temperature >101? no Injection time: 1600 Site: Right Upper Arm SQ Vial Contents diluted with 0.5ml Normal Saline no No injection given due to Reaction: No Action taken: Reviewed treatment for local reaction including call office for reaction > 2 inches. Reviewed use epi-pen for signs of anaphylaxis, and call 911. Pt acknowledges understanding. 1620 Time ambulatory from clinic in no distress, color pink, respiratory unlabored, steady on feet,voices no complaints. documented in this encounter Plan of Treatment Upcoming Encounters Date Type Department Care Team (Late st Contact Info) Description 10/19/2024 3:40 PM VIDEO INTERN Clinical Support [facility] - ENT [address] [place] [phone] 10/26/2024 3:20 PM VIDEO INTERN Clinical Support [facility] - ENT [address] [place] [phone] 11/02/2024 3:40 PM VIDEO INTERN Clinical Support [facility] - ENT [address] [place] [phone] 11/09/2024 3:20 PM VIDEO INTERN Clinical Support [facility] - ENT [address] [place] [phone] documented as of this encounter Visit Diagnoses Diagnosis Allergic rhinitis due to pollen, unspecified seasonality- Primary documented in this encounter Care Teams Foreman/Pile Driving And Erection Relationship Specialty Start Date End Date Jonathan Amado MD [address] [place] [phone] PCP - General Family Medicine 06/24/13 09/14/23 Jonathan Amado MD [address] [place] [phone] 06/24/13 documented as of this encounter
--- OUTSIDE RECORDS SUMMARY | 2024-10-17 03:08 | XMS_ITS | Encounter Summary ---
Author Organization [facility] Address [address] [facility] [place] [address] Care Team Providers Care Bindery Leadperson Name Role Phone Jonathan Amado MD Primary Care Provider [phone] Jonathan Amado MD Unavailable [phone] Reason for Visit * Reason Comments Immunotherapy Encounter Details Date Type Department Care Team (Latest Contact Info) Description 01/26/2018 2:30 PM CDT Clinical Support [facility] Otolaryngology [address] [address] Allergic rhinitis due to pollen, unspecified seasonality [...] * Patient Instructions* Charleen North RN - 01/26/2018 3:11 PM CDT Please report any local reaction greater than half dollar size wheal or redness to office. For severe symptoms or anaphylaxis, such as angioedema, stridor, wheezing, use Epi pen (and inhaler if hx asthma) as directed, call 911 and go to closest Emergency Department. Please inform office at [phone] (HEIDY office nurse line) after you have been treated. Reviewed treatment for local reaction including call office for reaction > 2 inches. Reviewed use epi-pen for signs of anaphylaxis, and call 911. Pt acknowledges understanding. documented in this encounter Progress Notes * Charleen North RN - 01/26/2018 3:10 PM CDT Progress Notes Signed by Ai Lomeli RN on 01/14/2018 2:13 PM Author: Ai Lomeli RN Service: (none) Author Type: Registered Nurse Encounter Date: 01/13/2018 Filed: 01/14/2018 2:13 PM Note Type: Progress Notes Status: Signed Fur Glazer: Ai Lomeli RN (Registered Nurse) Serum calculations have been reviewed by Dr. Arellano. Serum compounded into 7individual dose vials and kept at . Tree Mix Rice Mix Mold Mix Phenol Normal Saline SIGNATURE AND LOCATION 12/16/2017 0.12 0.25 0.12 0.25 Right upper arm SQ-sb 12/23/2017 0.25 0.25 0.25 Right upper arm Sq-sb 12/3001/06/2018 0.25 0.25 0.25 Left upper arm SQ on 01/13 -am 01/20/2018 0.25 0.25 0.25 Right upper arm SQ-sb 01/2602/03/2018 0.25 0.25 0.25 02/17/2018 0.25 0.25 0.25 03/03/2018 0.25 0.25 0.25 Department of Otolaryngology Head and Neck Surgery Patient Name: Pina Reynaga : 1970 Date: 01/13/2018 1. Did you bring your Epi-pen with you to clinic today? Yes 2. How are you feeling today? OK 3. How have you been feeling since your last shot? Pretty good; still with stomach issues. Shows food allergy test results. A. What symptoms do you have? Drainage, stuffiness B. When do you have these symptoms? [...] a temperature >101? no Injection time: 1450 Site: Left Upper Arm SQ Vial Contents diluted with 0.5ml Normal Saline no No injection given due to Reaction: No Action taken: Reviewed treatment for local reaction including call office for reaction > 2 inches. Reviewed use epi-pen for signs of anaphylaxis, and call 911. Pt acknowledges understanding. 1505 Time ambulatory from clinic in no distress, color pink, respiratory unlabored, steady on feet,voices no complaints. documented in this encounter Plan of Treatment Upcoming Encounters Date Type Department Care Team (Late st Contact Info) Description 10/19/2024 3:40 PM CASINO CHANGE ATTENDANT Clinical Support [facility] - ENT [address] [place] [phone] 10/26/2024 3:20 PM CASINO CHANGE ATTENDANT Clinical Support [facility]NT [address] [place] [phone] 11/02/2024 3:40 PM CASINO CHANGE ATTENDANT Clinical Support [facility] [address] [place] [phone] 11/09/2024 3:20 PM CASINO CHANGE ATTENDANT Clinical Support [facility] - ENT [address] [place] [phone] documented as of this encounter Visit Diagnoses Diagnosis Allergic rhinitis due to pollen, unspecified seasonality- Primary documented in this encounter Care Teams Bindery Leadperson Relationship Specialty Start Date End Date Jonathan Amado MD [address] [place] [phone] PCP - General Family Medicine 06/24/13 09/14/23 Jonathan Amado MD [address] [place] [phone] 06/24/13 documented as of this encounter
--- OUTSIDE RECORDS SUMMARY | 2024-10-17 03:08 | XMS_ITS | Encounter Summary ---
Author Organization [facility] Address [address] [place] [address] Care Team Providers Care Administrator Of Home Health Name Role Phone Jonathan Amado MD Primary Care Provider [phone] Jonathan Amado MD Unavailable [phone] Encounter Details Date Type Department Care Team (Late st Contact Info) Description 08/11/2018 3:30 PM CDT Office Visit [facility] Otolaryngology [address] [address] Grupo Brice MD [address] [place] [address] Chronic maxillary sinusitis (Primary Dx) Social History [...] this encounter Patient Instructions * Patient Instructions* Marilou Arreola - 08/11/2018 3:34 PM CDT Thank you for visiting [facility] Otolaryngology - Head & Neck Surgery. We [...] an appointment, please call our office at [phone] Friday through Friday from 8:30 am to4:30 pm. You can also request a routine appointment through your [employer] account. Prescription Refills Contact your pharmacy to [...] call the medical exchangeat and ask the exposure machine operator to page the ENT physician material liaison. *Caller ID blocking service will need to be turned off for your call to be returned. We also specialize in Hearing Aids, Allergy testing, swallowing disorders, voice problems, cancer diagnosis, and so much more. Visit our website at [email or web address] for information about our practice and an interactive healthencyclopedia. documented in this encounter Progress Notes * Angel Chiang MD - 08/11/2018 3:47 PM CDT History of Present Illness: Pina is a 48 y.o. female with PMH of recurrent sinus disease, nasal polyps, and fibromyalgia who presents for evaluation of recurrent acute sinus symptoms which began about a week ago. She reports facial pain, pressure, drainage, and a malodorous smell. She continues to use nasal irrigations and SCIT. Past Medical History: No past medical history on file. Past Surgical History: Procedure Laterality Date ??? Cholecystectomy, Laparoscopic ??? Hysterectomy endometrosis Family History Problem Relation Age of Onset ??? Psoriasis Mother Status: Alive ??? Arthritis - Osteo Mother ??? Hypertension Father Status: Alive ??? None Known Brother Current Outpatient Prescriptions Medication Sig Dispense Refill ??? azithromycin (ZITHROMAX) 250 MG tablet Take 1 tablet by mouth once daily 0 ??? guaiFENesin-codeine (ROBITUSSIN AC) 100-10 MG/5ML syrup Take 5 mL by mouth every 6 hours as needed 0 ??? magnesium 250 MG tablet Take 250 mg by mouth once daily ??? Cyanocobalamin (B-12) 1000 MCG Take 1,000 mcg by mouth ??? Pyridoxine HCl (B-6) 100 MG Take 100 mg by mouth ??? olopatadine 0.7 % (PAZEO) 0.7 % ophthalmic solution Instill 1 drop into both eyes once daily asneeded for Itchy Eyes 1 bottles 3 ??? budesonide (PULMICORT) 0.5 MG/2ML nebulizer suspension Add 1 vial to 240ml saline (patient willmix own saline). Irrigate half in each nostril twice daily. 60 vial 11 ??? Cholecalciferol (VITAMIN D-3) 1000 UNITS Take 1,000 Units by mouth 2 times daily ??? pantoprazole EC (PROTONIX) 40 MG tablet Take 40 mg by mouth BID. 5 ??? EPINEPHrine (EPIPEN) 0.3 MG/0.3ML auto-injector pen Inject 0.3 mg into muscle. 1 Each 0 ??? rizatriptan (MAXALT) 10 MG tablet Take 1 tablet by mouth. No current facility-administered medications for this visit. Allergies Allergen Reactions ??? Doxycycline Rash ??? Sulfa Drugs Other and Rash Body aches ??? Contrast-Iodinated Agents For Ct/Other Myalgias And joint pain after ??? Morphine ??? Ciprofloxacin Rash ??? Levaquin Rash ??? Compazine Syrup Anxiety Social History Substance Use Topics ??? Smoking status: Never Smoker ??? Smokeless tobacco: Never Used ??? Alcohol use No Review of Systems: An 14 point review of systems was completed and negative except for above. Physical Examination: There were no vitals taken for this visit. There is no height or weight on file to calculate BMI. Constitutional: in no apparent distress and well [...] deformity, asymmetry, or inflammation Septum: Good alignment Inf Turbinates: [place], non-edematous, without discharge Mucosa: [place], healthy appearing Oral Cavity: No perioral or [...] was placed in the sitting position. The zero degree telescope was passed along the leftnasal floor to the nasopharynx. It was then passed into the region of the middlemeatus, middle turbinate. An identical procedure was performed on the right side. The following findings were noted as stated below: ?? Findings: L nasal floor with purulent drainage. No perceivable drainage from middle meatus. Right middle meatus with purulent drainage. ?? Condition: Stable. Patient tolerated procedure well. ?? Complications: None ?? Dr. Brice was present for the entirety of the procedure. Assessment and Plan: Pina is a 48 y.o. female with hx of recurrent sinus disease who presents with symptoms consistent with acute sinus infection. - Send nasal specimen for cultures and treat accordingly. - Will initiate Tobramycin 20mg mixed with Budesonide saline irrigations for 1 month - Continue immunotherapy - Follow-up in clinic in 3 months or sooner if symptoms worsen Angel Chiang PGY 4 08/11/2018 3:47 PM I have seen and examined the patient and agree with the comments and findings in the above residentnote. I was present for the entirety of the procedure Grupo Brice M.D. Professor This patient is well-known's had an acute exacerbation of her chronic sinus disease. She is not on any medications. Examination today shows that she has congestion bilaterally in the ethmoid and around the max her sinuses with purulent drainage in the floor the left nasal cavity. Today we cultured the left nasal cavity. We will start her on topical tobramycin and and budesonide irrigations and follow up in 1 month Obtained culture results on 08/18/18 ? Culture ? Rare Aspergillus species (Abnormal) ? Rare Staphylococcus species (coagulase-negative) (Abnormal) ? Stain Will reexamine patient and see if there is any evidence of persistent infection before modifying treatment plan R TRANSFORMER REPAIR SUPERVISOR * Marilou Arreola - 08/11/2018 3:33 PM CDT Review of Systems Pina Reynaga reports the following; General: fatigue, unexplained weight gain, sleep problems Head: headaches Nose: sinus pain, post nasal drainage, congestion Lungs: cough Urinary Tract: frequent urination Musculoskeletal: joint pain, muscle pain, stiffness documented in this encounter Plan of Treatment Upcoming Encounters Date Type Department Care Team (Late st Contact Info) Description 10/19/2024 3:40 PM POWER TRANSFORMER REPAIR SUPERVISOR Clinical Support [facility] - ENT [address] [place] [phone] 10/26/2024 3:20 PM POWER TRANSFORMER REPAIR SUPERVISOR Clinical Support [facility] [address] [place] [phone] 11/02/2024 3:40 PM POWER TRANSFORMER REPAIR SUPERVISOR Clinical Support [facility] [address] [place] [phone] 11/09/2024 3:20 PM POWER TRANSFORMER REPAIR SUPERVISOR Clinical Support [facility] [address] [place] [phone] documented as of this encounter Results * (ABNORMAL) CULTURE RESPIRATORY+GRAM STAIN (08/11/2018 5:26 PM CDT) Culture Rare Aspergillus species(A) CHERELLE 08/14/2018 4:32 PM CDT [facility] Culture Rare Staphylococcus species (coagulase-negati ve)(A) CHERELLE 08/14/2018 4:32 PM CDT [facility] Gram Stain No organisms seen 018 4:32 PM CDT [facility] Microbiology SINUS / Unknown Collection / Unknown 08/11/2018 5:26 PM CDT 08/11/2018 5:34 PM CDT Grupo Brice MD LAB - MICROBIOLOGY O RDERABLES [facility] [address] [place], [address] [phone] documented in this encounter Visit Diagnoses Diagnosis Chronic maxillary sinusitis- Primary documented in this encounter Care Teams Administrator Of Home Health Relationship Specialty Start Date End Date Jonathan Amado MD [address] [place] [phone] PCP - General Family Medicine 06/24/13 09/14/23 Jonathan Amado MD [address] [place] [phone] 06/24/13 documented as of this encounter
--- OUTSIDE RECORDS SUMMARY | 2024-10-17 03:08 | XMS_ITS | Encounter Summary ---
Author Organization [facility] Address [facility] [place] [address] Care Team Providers Care Sterilizer Machine Operator Name Role Phone Jonathan Amado MD Primary Care Provider [phone]- [phone] Jonathan Amado MD Unavailable [phone] Encounter Details Date Type Department Care Team (Latest Contact Info) Description 10/10/2015 Hospital Outpatient Visit Historic [facility] [address] [place] [address] Grupo Brice MD [address] [place] [address] Discharge Disposition: Home or Self Care Social History Tobacco Use Types Packs/Day Years Used Date Smoking Tobacco: Never Assessed Sex and Gender Information Value Date Recorded Sex Assigned at Not on file Gender Identity Not on file Sexual Orientation Not on file documented as of this encounter Plan of Treatment Upcoming Encounters Date Type Department Care Team (Late st Contact Info) Description 10/19/2024 3:40 PM ENVIRONMENTAL HEALTH AND SAFETY LEADER Clinical Support [facility] [address] [place] [phone] 10/26/2024 3:20 PM ENVIRONMENTAL HEALTH AND SAFETY LEADER Clinical Support [facility] [address] [place] [phone] 11/02/2024 3:40 PM ENVIRONMENTAL HEALTH AND SAFETY LEADER Clinical Support [facility] [address] [place] [phone] 11/09/2024 3:20 PM ENVIRONMENTAL HEALTH AND SAFETY LEADER Clinical Support [facility] [address] [place] [phone] documented as of this encounter Procedures Procedure Name Priority Date/Time Associated Diagnosis Comments CULTURE AEROBIC Routine 10/10/2015 5:19 PM ENVIRONMENTAL HEALTH AND SAFETY LEADER documented in this encounter Results * (ABNORMAL) CULTURE AEROBIC (10/10/2015 5:19 PM ENVIRONMENTAL HEALTH AND SAFETY LEADER) Culture Aerobic SERRATIA MARCESCENS(A ) [facility] Comment:Moderate Growth Serr atia Marcescens Gram Stain [facility] Comment:QNS-1 swab. Sinus 10/10/2015 5:19 PM ENVIRONMENTAL HEALTH AND SAFETY LEADER 10/10/2015 5:33 PM ENVIRONMENTAL HEALTH AND SAFETY LEADER Narrative [facility] - 10/12/2015 12:26 PM ENVIRONMENTAL HEALTH AND SAFETY LEADER Specimen Type->Sinus Gram Stains are routinely screened for the presence of Polymorphonuclear Cells. Organism Antibiotic Method Susceptibility Serratia marcescens Amikacin SUSCEPTIBILITY <=2: Sensitive Serratia marcescens Ampicillin SUSCEPTIBILITY Serratia marcescens Ampicillin-sulbactam SUSCEPTIBILIT Y Serratia marcescens Cefepime SUSCEPTIBILITY <=1: Sensitive Serratia marcescens Ceftazidime SUSCEPTIBILITY <=1: Sensitive Serratia marcescens Ceftriaxone SUSCEPTIBILITY <=1: Sensitive Comment:This bacteri al species is known to produce a chromosomal AmpC inducible beta-lactamase.Isolates may become resistant to all cephalosporins after initiation of therapy with beta-lactam antimicrobials. Serratia marcescens Ertapenem SUSCEPTIBILITY <=0.5: Sensitive Serratia marcescens Gentamicin SUSCEPTIBILITY <=1: Sensitive Serratia marcescens Imipenem SUSCEPTIBILITY Serratia marcescens Levofloxacin SUSCEPTIBILITY <=0.12: Sensitive Serratia marcescens Piperacillin-tazobactam SUSCEPTIBI LITY Serratia marcescens Tobramycin SUSCEPTIBILITY 2: Sensitive Serratia marcescens Trimethoprim-sulfamethoxazole SUSC EPTIBILITY <=20: Sensitive Grupo Brice MD LAB - MICROBIOLOGY O RDERABLES [facility] [address] [place], [place] [phone] [place] [address] documented in this encounter Visit Diagnoses Not on filedocumented in this encounter Care Teams Sterilizer Machine Operator Relationship Specialty Start Date End Date Jonathan Amado MD [address] [place] [address] PCP - General Family Medicine 06/24/13 09/14/23 Jonathan Amado MD [address] [place] [phone] 06/24/13 documented as of this encounter
--- OUTSIDE RECORDS SUMMARY | 2024-10-17 03:08 | XMS_ITS | Encounter Summary ---
Author Organization [facility] Address [address] [facility] [place] [address] Care Team Providers Care Press Box Custodian Name Role Phone Jonathan Amado MD Primary Care Provider [phone]- [phone] Jonathan Amado MD Unavailable [phone] Reason for Visit * Reason Onset Date Comments Results 08/18/2018 sinus culture Encounter Details Date Type Department Care Team (Late st Contact Info) Description 08/18/2018 Telephone [facility] [address] [address] Ai Lomeli, RN Results (sinus culture) Social History Tobacco Use Types Packs/Day Years [...] Telephone Encounter - Ai Lomeli, RN - 08/18/2018 3:34 PM CST Case discussed with Dr. Brice after review of culture results. Spoke with pt at 1530. Pt states she is doing about the same, still with nasal congestion & drainage. States has some chest tightness, some wheezing at night. Denies fever. Previously, pt has used albuterol inhaler when ill. Admits does still feel open since using budesonide in nasal irrigations. Pt was prescribed Symbicort at recent visit with PCP regarding illness; does not like taste in mouth and it didn't seem to help. Suggested discuss chest tightness with PCP, perhaps request refill on albuterol. Pt acknowledges understanding. CODING MACHINE OPERATOR documented in this encounter Plan of Treatment Upcoming Encounters Date Type Department Care Team (Late st Contact Info) Description 10/19/2024 3:40 PM GEAR CODING MACHINE OPERATOR Clinical Support [facility] [address] [place] [phone] 10/26/2024 3:20 PM GEAR CODING MACHINE OPERATOR Clinical Support [facility] [address] [place] [phone] 11/02/2024 3:40 PM GEAR CODING MACHINE OPERATOR Clinical Support [facility] [address] [place] [phone] 11/09/2024 3:20 PM GEAR CODING MACHINE OPERATOR Clinical Support [facility] [address] [place] [phone] documented as of this encounter Visit Diagnoses Not on filedocumented in this encounter Care Teams Press Box Custodian Relationship Specialty Start Date End Date Jonathan Amado MD [address] [place] [phone] PCP - General Family Medicine 06/24/13 09/14/23 Jonathan Amado MD [address] [place] [phone] 06/24/13 documented as of this encounter
--- OUTSIDE RECORDS SUMMARY | 2024-10-17 03:08 | XMS_ITS | Encounter Summary ---
Author Organization [facility] Address [address] [facility] [place] [address] Care Team Providers Care Regulator Mechanic Name Role Phone Jonathan Amado MD Primary Care Provider [phone] Jonathan Amado MD Unavailable Reason for Visit * Reason Comments Immunotherapy Encounter Details Date Type Department Care Team (Latest Contact Info) Description 03/24/2018 10:30 AM CDT Clinical Support [facility] [address] [address] Allergic rhinitis due to pollen, unspecified seasonality [...] * Patient Instructions* Charleen North RN - 03/24/2018 11:17 AM CDT Please report any local reaction greater than half dollar size wheal or redness to office. For severe symptoms or anaphylaxis, such as angioedema, stridor, wheezing, use Epi pen (and inhaler if hx asthma) as directed, call 911 and go to closest Emergency Department. Please inform office at [phone] ([facility] office nurse line) after you have been treated. Reviewed treatment for local reaction including call office for reaction > 2 inches. Reviewed use epi-pen for signs of anaphylaxis, and call 911. Pt acknowledges understanding. documented in this encounter Progress Notes * Charleen North RN - 03/24/2018 11:00 AM CDT Serum calculations have been reviewed by Dr. Arellano. Serum compounded into 7individual dose vials and kept at . Tree Mix Marble Mix Mold Mix Phenol Normal Saline SIGNATURE AND LOCATION 12/16/2017 0.12 0.25 0.12 0.25 Right upper arm SQ-sb 12/23/2017 0.25 0.25 0.25 Right upper arm Sq-sb 12/3001/06/2018 0.25 0.25 0.25 Left upper arm SQ on 01/13 -am 01/20/2018 0.25 0.25 0.25 Right upper arm SQ-sb 01/2602/03/2018 0.25 0.25 0.25 Left upper arm SQ on 02/24 -am 02/17/2018 0.25 0.25 0.25 Right upper arm SQ on 03/10-ld 03/03/2018 0.25 0.25 0.25 Right upper arm Sq-sb 03/24 Department of Otolaryngology Head and Neck Surgery Patient Name: Pina Reynaga : 1970 Date: 03/24/2018 1. Did you bring your Epi-pen with you to clinic today? Yes 2. How are you feeling today? alright 3. How have you been feeling since your last shot? As above A. What symptoms do you have? Itchy eyes, congestion, sneezing B. When do you have these symptoms? As soon as I walk outside, all day C. Are your symptoms mild, moderate [...] have a temperature >101? no Injection time: 1103 Site: right Upper Arm SQ Vial Contents diluted with 0.5ml Normal Saline no No injection given due to Reaction: No Action taken: Reviewed treatment for local reaction including call office for reaction > 2 inches. Reviewed use epi-pen for signs of anaphylaxis, and call 911. Pt acknowledges understanding. 1123 Time ambulatory from clinic in no distress, color pink, respiratory unlabored, steady on feet,voices no complaints. documented in this encounter Plan of Treatment Upcoming Encounters Date Type Department Care Team (Late st Contact Info) Description 10/19/2024 3:40 PM FLOOR WORKER WELL SERVICE Clinical Support [facility] [address] [place] [phone] 10/26/2024 3:20 PM FLOOR WORKER WELL SERVICE Clinical Support [facility] [address] [place] [phone] 11/02/2024 3:40 PM FLOOR WORKER WELL SERVICE Clinical Support [facility] [address] [place] [phone] 11/09/2024 3:20 PM FLOOR WORKER WELL SERVICE Clinical Support [facility] [address] [place] [phone] documented as of this encounter Visit Diagnoses Diagnosis Allergic rhinitis due to pollen, unspecified seasonality- Primary documented in this encounter Care Teams Regulator Mechanic Relationship Specialty Start Date End Date Jonathan Amado MD [address] [place] [phone] PCP - General Family Medicine 06/24/13 09/14/23 Jonathan Amado MD [facility] [place] [address] 06/24/13 documented as of this encounter
--- OUTSIDE RECORDS SUMMARY | 2024-10-17 03:08 | XMS_ITS | Encounter Summary ---
Author Organization [facility] Address [address] [facility] [place] [address] Care Team Providers Care Toy Assembly Supervisor Name Role Phone Jonathan Amado MD Primary Care Provider [phone] Jonathan Amado MD Unavailable [phone] Encounter Details Date Type Department Care Team (Latest Contact Info) Description 10/16/2018 10:01 AM SEMIAUTOMATIC TAPER OPERATOR - 10/16/2018 11:59 PM [facility] Hospital Encounter [facility] [address] [place] [phone] Grupo Brice MD [address] DE[place] [address] Discharge Disposition: Home or Self Care Social [...] daily as needed ergocalciferol (DRISDOL) 1.25 MG (42866 UT) capsule Take 1 (one) capsule by mouth every 30 days fluticasone propionate (FLONASE) 50 MCG/ACT nasal spray [place] 2 (two) sprays into each nostril once daily B Complex-C (SUPER B COMPLEX PO) Take 1 tablet by mouth once daily 04/14/2023 budesonide (PULMICORT) 0.5 MG/2ML nebulizer suspension Mix one vial in 90-120 cc of salt water. Irrigate half into each nostril two times/day. 60 vial 11 10/15/2018 05/02/2020 Cetirizine-Pseudoephedr ine (ZYRTEC-D PO) Take by mouth 2 times daily. 04/24/2021 Cetirizine-Pseudoephedr ine (ZYRTEC-D PO) Take 1 Tab by mouth [...] 0.3 mg into muscle. 1 Each 0 12/19/2017 01/12/2019 guaiFENesin-codeine (ROBITUSSIN AC) 100-10 MG/5ML syrup Take 5 mL by mouth every 6 hours as needed 0 08/07/2018 12/08/2018 hydroxychloroquine (PLAQUENIL) 200 MG tablet Take 1 Tab by mouth 2 times daily. 60 Tab 3 06/24/2013 04/24/2021 ibuprofen (ADVIL) 200 MG capsule Take 200 mg by mouth 4 times daily as needed. 04/14/2023 Linaclotide (LINZESS PO) Take by mouth as needed. 04/24/2021 magnesium 250 MG tablet Take 250 mg by mouth once daily 04/14/2023 Ondansetron HCl (ZOFRAN PO) Take 1 tablet by mouth as needed 09/15/2023 pantoprazole EC (PROTONIX) 40 MG tablet Take 40 mg by mouth BID. 5 10/09/2017 03/01/2019 predniSONE (DELTASONE) 10 MG tablet 40mg po qam x 3days, 30mg po qam x 3days, 20mg po qam x 3days, 10mg po qam x 3days 30 tablet 10/15/2018 10/27/2018 predniSONE (DELTASONE) 10 MG tablet Take by mouth. 4 tabs for 3 days, then 3 tabs for 3 days, then 2 tabs for 3 days, then one tab for 3 days then stop 07/25/2020 Pyridoxine HCl (B-6) 100 MG Take 100 mg by mouth 021 rizatriptan (MAXALT) 10 MG tablet Take 1 tablet by mouth once 08/15/2017 04/14/2023 rizatriptan (MAXALT) 5 MG tablet Take 5 mg by mouth once as needed. 07/25/2022 Tobramycin Add 1 capsule of 20mg to 240ml saline (patient may mix own saline). Irrigate half in each nostril twice daily. 1 bottles 08/11/2018 10/27/2018 documented as of this encounter Plan of Treatment Upcoming Encounters Date Type Department Care Team (Late st Contact Info) Description 10/19/2024 3:40 PM SEMIAUTOMATIC TAPER OPERATOR Clinical Support [facility] [address] [place] [phone] 10/26/2024 3:20 PM SEMIAUTOMATIC TAPER OPERATOR Clinical Support [facility] [address] [place] [phone] 11/02/2024 3:40 PM SEMIAUTOMATIC TAPER OPERATOR Clinical Support [facility] [address] [place] [phone] 11/09/2024 3:20 PM SEMIAUTOMATIC TAPER OPERATOR Clinical Support [facility] [address] [place] [phone] documented as of this encounter Procedures Procedure Name Priority Date/Time Associated Diagnosis Comments CULTURE RESPIRATORY+GRAM STAIN (STL) Routine 10/15/2018 5:30 PM SEMIAUTOMATIC TAPER OPERATOR Chronic sinusitis, unspecified location CULTURE RESPIRATORY+GRAM STAIN (STL) Routine 10/15/2018 5:30 PM SEMIAUTOMATIC TAPER OPERATOR Chronic sinusitis, unspecified location documented in this encounter Results * CULTURE RESPIRATORY+GRAM STAIN (STL) (10/15/2018 5:30 PM SEMIAUTOMATIC TAPER OPERATOR) Culture No growth CHERELLE 10/18/2018 3:14 PM SEMIAUTOMATIC TAPER OPERATOR [facility] Gram Stain Rare Polymorphonuclear cells 10/18/2018 3:14 PM SEMIAUTOMATIC TAPER OPERATOR [facility] Gram Stain No organisms seen 019 3:14 PM SEMIAUTOMATIC TAPER OPERATOR [facility] Microbiology SINUS / Unknown Collection / Unknown 10/15/2018 5:30 PM SEMIAUTOMATIC TAPER OPERATOR 10/16/2018 11:40 AM SEMIAUTOMATIC TAPER OPERATOR Grupo Brice MD LAB - MICROBIOLOGY O RDERABLES Performing Organization Address City/[facility]/ZIP Co de Phone Number [facility] [address] [place] [address], [facility] [phone] * CULTURE RESPIRATORY+GRAM STAIN (STL) (10/15/2018 5:30 PM SEMIAUTOMATIC TAPER OPERATOR) Culture Rare normal oropharyngeal mayito CHERELLE 10/18/2018 4:19 PM SEMIAUTOMATIC TAPER OPERATOR [facility] Gram Stain Moderate Polymorphonuclear cells 10/18/2018 4:19 PM SEMIAUTOMATIC TAPER OPERATOR [facility] Gram Stain No organisms seen 019 4:19 PM SEMIAUTOMATIC TAPER OPERATOR [facility] Microbiology SINUS / Unknown Collection / Unknown 10/15/2018 5:30 PM SEMIAUTOMATIC TAPER OPERATOR 10/16/2018 11:40 AM SEMIAUTOMATIC TAPER OPERATOR Grupo Brice MD LAB - MICROBIOLOGY O JUAN Performing Organization Address City/[facility]/ZIP Co de Phone Number [facility] [address] [place] [address], [facility] [phone] documented in this encounter Visit Diagnoses Diagnosis Chronic sinusitis, unspecified location documented in this encounter Care Teams Toy Assembly Supervisor Relationship Specialty Start Date End Date Jonathan Amado MD [address] [place] [phone] PCP - General Family Medicine 06/24/13 09/14/23 Jonathan Amado MD [address] [place] [phone] 06/24/13 documented as of this encounter
--- OUTSIDE RECORDS SUMMARY | 2024-10-17 03:08 | XMS_ITS | Encounter Summary ---
Author Organization [facility] Address [address] [facility] [place] [address] Care Team Providers Care Manager Call Center Name Role Phone Jonathan Amado MD Primary Care Provider [phone]- [phone] Jonathan Amado MD Unavailable [phone] Reason for Visit * Reason Comments Immunotherapy Encounter Details Date Type Department Care Team (Latest Contact Info) Description 04/09/2018 10:30 AM CDT Clinical Support [facility] [address] [address] Allergic rhinitis due to pollen, unspecified seasonality [...] * Patient Instructions* Charleen North RN - 04/09/2018 12:53 PM CDT Please report any local reaction greater than half dollar size wheal or redness to office. For severe symptoms or anaphylaxis, such as angioedema, stridor, wheezing, use Epi pen (and inhaler if hx asthma) as directed, call 911 and go to closest Emergency Department. Please inform office at [phone] ([facility] office nurse line) after you have been treated. Reviewed treatment for local reaction including call office for reaction > 2 inches. Reviewed use epi-pen for signs of anaphylaxis, and call 911. Pt acknowledges understanding. documented in this encounter Progress Notes * Charleen North RN - 04/09/2018 10:21 AM CDT Serum calculations have been reviewed by Dr. Arellano. Serum compounded into 7 individual dose vialsand mailed to patient. Date Tree Mix Quincy Mix Mold Mix Phenol Normal Saline SIGNATURE AND LOCATION 04/07/2018 0.25 0.25 0.12 0.13 Left upper arm SQ-sb 04/0904/14/2018 0.25 0.25 0.25 04/28/2018 0.25 0.25 0.25 05/12/2018 0.25 0.25 0.25 05/26/2018 0.25 0.25 0.25 06/09/2018 0.25 0.25 0.25 06/23/2018 0.25 0.25 0.25 Due to a change in the Penicllium and Fusarium extract project analyst, the initial dose of the serieswill be adjusted per project analyst's recommendation. An additional vial will be made to accommodate the adjusted dose. Department of Otolaryngology Head and Neck Surgery Patient Name: Pina Reynaga : 1970 Date: 04/09/2018 1. Did you bring your Epi-pen with you to clinic today? Yes 2. How are you feeling today? The usual, stuffy, sneezing 3. How have you been feeling since your last shot? As above A. What symptoms do you have? As above B. When do you have these symptoms? All day C. Are your symptoms mild, moderate or severe? mild 4. How has your asthma been? good A. Is your asthma controlled or uncontrolled? [...] have a temperature >101? no Injection time: 1020 Site: Left Upper Arm SQ Vial Contents diluted with 0.5ml Normal Saline yes No injection given due to Reaction: No Action taken: n/a 1040 Time ambulatory form clinic in no distress, color pink, respiratory unlabored, steady on feet,voices no complaints. documented in this encounter Plan of Treatment Upcoming Encounters Date Type Department Care Team (Late st Contact Info) Description 10/19/2024 3:40 PM CURING PICKLING PACKER Clinical Support [facility] [address] [place] [phone] 10/26/2024 3:20 PM CURING PICKLING PACKER Clinical Support [facility] [address] [place] [phone] 11/02/2024 3:40 PM CURING PICKLING PACKER Clinical Support [facility] [address] [place] [phone] 11/09/2024 3:20 PM CURING PICKLING PACKER Clinical Support [facility] [address] [place] [phone] documented as of this encounter Visit Diagnoses Diagnosis Allergic rhinitis due to pollen, unspecified seasonality- Primary documented in this encounter Care Teams Manager Call Center Relationship Specialty Start Date End Date Jonathan Amado MD [address] [place] [phone] PCP - General Family Medicine 06/24/13 09/14/23 Jonathan Amado MD [address] [place] [phone] 06/24/13 documented as of this encounter
--- OUTSIDE RECORDS SUMMARY | 2024-10-17 03:08 | XMS_ITS | Encounter Summary ---
Author Organization [facility] Address [address] [facility] [place] [address] Care Team Providers Care Logistics Tech Name Role Phone Jonathan Amado MD Primary Care Provider [phone] Jonathan Amado MD Unavailable [phone] Encounter Details Date Type Department Care Team (Latest Contact Info) Description 07/29/2017 Hospital Outpatient Visit Historic [facility] [address] [place] [phone] Sarika Edwards MD [address] [place] [address] Discharge Disposition: Home or Self Care Social [...] Contact Info) Description 10/19/2024 3:40 PM ELECTRONIC SYSTEMS SECURITY ASSESSMENT Clinical Support [facility] [address] [place] [phone] 10/26/2024 3:20 PM ELECTRONIC SYSTEMS SECURITY ASSESSMENT Clinical Support [facility] [address] [place] [phone] 11/02/2024 3:40 PM ELECTRONIC SYSTEMS SECURITY ASSESSMENT Clinical Support [facility] [address] [place] [phone] 11/09/2024 3:20 PM ELECTRONIC SYSTEMS SECURITY ASSESSMENT Clinical Support [facility] [address] [place] [phone] documented as of this encounter Procedures Procedure Name Priority Date/Time Associated Diagnosis Comments XR PELVIS W RIGHT HIP 2VW Routine 07/29/2017 4:01 PM CDT XR KNEE RIGHT 3VW Routine 07/29/2017 4:0 1 PM CDT XR KNEE BILAT STANDING 1VW Routine 07/29/2017 4:01 PM CDT XR KNEE LEFT 3VW Routine 07/29/2017 4:01 PM CDT XR HIP LEFT 2VW OR MORE Routine 07/29/2017 4:01 PM CDT documented in this encounter Results * XR PELVIS W RIGHT HIP 2VW [...] This report was electronically signed by JOSUÉ SHU MD on07/29/2017 4:51 PM . Sarika Edwards [...] SUH MD on07/29/2017 4:51 PM . Sarika Jerry [facility] DIAGNOST[facility]AGING O RDERABLES * XR KNEE [...] SUH MD on07/29/2017 4:51 PM . Sarika Jerry [facility]IL DIAGNOSTIC IMAGING O RDERABLES documented in this encounter Visit Diagnoses Diagnosis Pain in joint documented in this encounter Care Teams Logistics Tech Relationship Specialty Start Date End Date Jonathan Amado MD [address] [place] [phone] PCP - General Family Medicine 06/24/13 09/14/23 Jonathan Amado MD [address] [place] [phone] 06/24/13 documented as of this encounter
--- OUTSIDE RECORDS SUMMARY | 2024-10-17 03:08 | XMS_ITS | Encounter Summary ---
Author Organization [facility] Address [address] [place] [address] Care Team Providers Care Professor Of Criminal Justice Name Role Phone Jonathan Amado MD Primary Care Provider [phone] Jonathan Amado MD Unavailable [phone] Encounter Details Date Type Department Care Team (Latest Contact Info) Description 07/29/2017 Hospital Outpatient Visit Historic [facility] [address] [place] [address] Sarika Edwards MD [address] [place] [address] Discharge Disposition: Home or Self Care Social [...] st Contact Info) Description 10/19/2024 3:40 PM STOCK TAKER Clinical Support [facility] [address] [place] [phone] 10/26/2024 3:20 PM STOCK TAKER Clinical Support [facility] [address] [place] [phone] 11/02/2024 3:40 PM STOCK TAKER Clinical Support [facility] [address] [place] [phone] 11/09/2024 3:20 PM STOCK TAKER Clinical Support [facility] [address] [place] [address] documented as of this encounter Visit Diagnoses Not on filedocumented in this encounter Care Teams Professor Of Criminal Justice Relationship Specialty Start Date End Date Jonathan Amado MD [address] [place] [phone] PCP - General Family Medicine 06/24/13 09/14/23 Jonathan Amado MD [facility] [place] [address] 06/24/13 documented as of this encounter
--- OUTSIDE RECORDS SUMMARY | 2024-10-17 03:08 | XMS_ITS | Encounter Summary ---
Author Organization [facility] Address [facility] [place] [address] Care Team Providers Care Cable Mock Up Assembler Name Role Phone Jonathan Amado MD Primary Care Provider [phone] Jonathan Amado MD Unavailable [phone] Reason for Visit * Reason Comments Follow-up Fibro Encounter Details Date Type Department Care Team (Latest Contact Info) Description 08/10/2018 2:30 PM CDT Office Visit [facility] [address] [place] [address] Sarika Edwards MD [address] [place] [address] Positive FABIAN (antinuclear antibody) (Primary Dx); Other specified abnormal immunological findings in serum; Arthralgia, unspecified joint; Other muscle spasm; Fibromyalgia; Chronic sinusitis, unspecified location Social History Tobacco Use Types Packs/Day Years [...] Sign Reading Time Taken Comments Blood Pressure 114/78 08/10/2018 4:14 PM CDT Pulse 72 08/10/2018 4:14 PM CDT Temperature 36.9 ??C (98.5 ??F) 08/10/2018 4:14 PM CD T Respiratory Rate - - Oxygen Saturation - - Inhaled Oxygen Concentration - - Weight 68.9 kg (152 lb) 08/10/2018 4:14 PM CDT Height 162.6 cm (5' 4 ) 08/10/2018 4:14 PM CDT Body Mass Index 26.09 08/10/2018 4:14 PM CDT documented in this encounter Patient Instructions * Patient Instructions* Sarika Edwards MD - 08/10/2018 5:51 PM CDT Follow up with the neuromuscular doctor - Consider trying the medication over Martin break Follow up with the sleep medicine doctor - Keep with the same medications - for now - If you have had lab at [facility], [facility], or [facility], you may view the results on My [...] - At the Doctor's Office Building at [address] [place] [address], [address], call [phone] If you need a refill request, have your pharmacy fax a request to [phone] If you need to contact Dr Edwards, call [phone] and leave a voicemail message. She will return your call. If you have not heard back in a few days, call again! Her office FAX number is [phone]. Please do not use My Chart to contact Dr Edwards. For after hours emergency only, you can call the [facility] lathe setup operator at [phone] and ask for the Shop Est[employer]ator child nutrition assistant to be paged. documented in this encounter Progress Notes * Sarika Edwards MD - 08/10/2018 4:56 PM CDT Rheumatology Attending Note Pina Reynaga is a 48 y.o. female who is here for a follow-up visit with the following diagnosis: 1. Positive FABIAN (antinuclear antibody) 2. Other specified abnormal immunological findings in serum 3. Arthralgia, unspecified joint 4. Other muscle spasm 5. Fibromyalgia 6. Chronic sinusitis, unspecified location The patient was last seen 01/26/18. Patient seen and examined with student Dr Garber. I confirm history, exam, assessment and plan. In addition I note: Interval history: Since her last visit - went to her PCP - Around Jun 26 - noted rash on her kneesas well as muscle pain and weakness- had elevated CK. Was sent to neurology at [facility] - had imaging - saw inflammation in her muscles (report reads Bilateral mild edema in the quadratus femoris muscles which can be seen with ischiofemoral impingement.) Used cortisone cream on her rash - improved - was a red papular rash - small splotches - on knees and LE - not on face. Then she felt some maggie Prior to the rash and feeling so bad, she had mowed her neighbor's lawn which was not something unusual for her to do. She then collapsed - had WILSON and then got sick - N&V - ended up going to PCP That was about 2 weeks ago Still with daily muscle weakness and pain - rash remains better The thigh muscles are still hurting - also with pain in her shins - still with pain and weakness Having cramping in muscles -even in face - and legs - The neurologist starte Mg and B6 - which helped sl after a few days - She was on B12 from Jonathan Amado - for low B-12 - The neurologist wanted to start oxcarbazepine - telling her that the significant SE will eventuallyresolve -but would take a few weeks - and she did not feel that she had a few weeks as she needed to go to work regularly Legs still hurt significantly - climbing stairs is difficult - hurts in the calves - feels as if the tendon is going to rip - Has had quad weakness for mcfp - has not had muscle pain in lower leg before recently - Has had cramping in her face in the last 6 mo = always R - triggered by open mouth - brushing teeth- yawn etc - Also with bumps on nails - Some SOB - relate to sinus issues for which she has seen ENT - has had surgeries -has had multiple nasal endoscopies - many of which have noted purulent drainage in the sinuses - + MRSA in 2012 x 6mo No GI issues - No chest pain - No joint pain -+ muscle pain - ? Rayunaud's - no color changes No SOB - occ or al ulcerations + dry mouth - ROS: As noted and per the student /resident/fellow note - No fevers chills - N/V (x 1 x as noted) Exam: BP 114/78 (BP SITE: LEFT ARM, BP POSITION: SITTING, BP CUFF SIZE: 11) Pulse 72 Temp 98.5 ??F (36.9 ??C) (Oral) Ht 5' 4 (1.626 m) Wt 152 lb (68.9 kg) BMI 26.09 kg/m2 General - WDWN female ; No distress Skin: no rashes noted at visit - HEENT- NCAT, PERRL, Oropharynx clear. Heart - RRR; Lungs - clear MS: + tenderness in the muscles - frances at the thighs bilat - R DIP 2 HN R shoulder -+ crepitance R LE strength -5/+5 flex Bilat hip flexors -5/+5 Other manual muscle testing 5/+5 Lab: From [facility] -noted in Care Everywhere FABIAN 1:320 Myositis antibody panel - neg CK - 214 Aldolase 6.6 (nl) Assessment/Plan:Pina Reynaga is a 48 y.o. female with 1. Positive FABIAN (antinuclear antibody) 2. Other specified abnormal immunological findings in serum 3. Arthralgia, unspecified joint 4. Other muscle spasm 5. Fibromyalgia 6. Chronic sinusitis, unspecified location She has had some unusual occurrences since her last visit. She had a rash and muscle aches and she was seen in the neuromuscular division at [facility]. Laboratory performed there does not appear to be remarkable for the presence of an autoimmune disease. She understood that there was inflammation noted in her muscles, although the radiography report does not substantiate that. Her most recent laboratory does not reveal elevated muscle chemistries. Overall, I believe the likelihood of an autoimmune muscle disease is low. She has had other muscle symptoms such as cramping as well as ongoing pain. I thought that her symptoms were reminiscent of fibromyalgia syndrome. However, she does not have prominent tender points on her exam. I'm glad that she's been seen in the neuromuscular division at [facility] and would recommend that she continue to follow with them for further evaluation. She has had other symptoms such as ongoing sinus infections, interstitial cystitis and endometriosis. It is unclear whether her ongoing sinus issues could be contributing to the positive FABIAN or if some autoimmune process could be contributing to her sinus symptoms. The student considered the possibility of HIV - which we may consider in the future. It is also possible that the infections and the + FABIAN are not related. She will follow-up with the neuromuscular physicians at [facility]. She will consider taking the recommended medication over the holiday. We have discussed the possibility of starting hydroxychloroquine. However, we agreed that one new medication at a time is the most appropriate, particularly given her history of medication intolerance. We will obtain an eye exam with the plan to potentially begin this medication in the future. Continue with regular stretching - Visit: 08/10/2018 Please see fellow's note for further details. Sarika Edwards MD IOVASCULAR SPECIALIST * Keyon Garber - 08/10/2018 4:08 PM CDT [facility] Visit Resident/Student Follow-up Progress Note PCP: Jonathan Amado MD Patient: Pina Reynaga, : 1970 Interval History: Pina Reynaga is a 48 y.o. female with fibromyalgia here for f/uvisit. The patient was last seen 01/26/18. She went to her PCP and she saw a neurologist at [facility] for a rash on both her legs and leg pain and weakness. Oxcarbazepine was perscribed and she did not take it because she does not want the side effects. They did labs and blood work at [facility], X rays showed arthritis and myositis. Lower extremity swelling occurring with muscle pains. She has chronic sinus infections with fungus MRSA in time frame for six months Still has some hair loss ROS: General: - generally feeling well, + fatigue, - sleeping well, - weight change, - fever Eyes: - dry eyes, - red eyes, - other visual complaints ENT: - dry mouth, - oral ulcers, - nasal ulcers, - adenopathy CV: - chest pain, - palpitations or - edema Pulm: - shortness of breath, + cough, - dyspnea on exertion, - pleuritic chest pain GI: - dysphagia, + heartburn, - nausea, - vomiting, - diarrhea, - constipation, - hematemesis or melena : - dysuria,- hematuria; periods are normal Skin: + rashes; - Raynaud's phenomenon, + nail changes, - digital ulcers, Musculo: - joint pain, - joint swelling, - warmth, - redness, + muscle pain, + muscle weakness . Neuro: + headaches, - dizziness, - N/T in extremities, Current Medications: Current Outpatient Prescriptions: magnesium 250 MG tablet Take 250 mg by mouth once daily Cyanocobalamin (B-12) 1000 MCG Take 1,000 mcg by mouth Pyridoxine HCl (B-6) 100 MG Take 100 mg by mouth olopatadine 0.7 % (PAZEO) 0.7 % ophthalmic solution Instill 1 drop into both eyes once daily as needed for Itchy Eyes melatonin 10 MG capsule Take 10 mg by mouth at bedtime budesonide (PULMICORT) 0.5 MG/2ML nebulizer suspension Add 1 vial to 240ml saline (patient will mixown saline). Irrigate half in each nostril twice daily. pseudoephedrine (SUDAFED) 30 MG tablet Take 30 mg by mouth every 4 hours as needed for Nasal Congestion Cholecalciferol (VITAMIN D-3) 1000 UNITS Take 1,000 Units by mouth 2 times daily pantoprazole EC (PROTONIX) 40 MG tablet Take 40 mg by mouth BID. EPINEPHrine (EPIPEN) 0.3 MG/0.3ML auto-injector pen Inject 0.3 mg into muscle. rizatriptan (MAXALT) 10 MG tablet Take 1 tablet by mouth. No current facility-administered medications for this visit. Allergies: Doxycycline; Sulfa drugs; Contrast-iodinated agents for ct/other; Morphine; Ciprofloxacin; Levaquin; and Compazine syrup Physical Exam: There were no vitals taken for this visit. System General: alert, cooperative, no distress, oriented to person, place, and time, well appearing, appears stated age, normal Skin: Skin color, texture, turgor normal. No rashes or lesions HEENT: Normocephalic, without obvious abnormality, atraumatic conjunctivae/corneas clear. PERRL Nares normal. Septum midline. Mucosa normal. No drainage or sinus tenderness. Neck: supple, symmetrical, trachea midline, no adenopathy and thyroid: not enlarged, symmetric, no tenderness/mass/nodules Back: symmetric, no curvature. ROM normal. No CVA tenderness. Chest/Lungs: clear to auscultation bilaterally Heart: RRR, normal S1 and S2, no murmur Abdomen; soft, non-tender; bowel sounds normal; no masses, no organomegaly Neurologic: Grossly normal Joint Exam: Heberdens nodule on R 2nd DIP Crepitus in R shoulder Weakness of R hamstring and possible weakness of hip flexors bilaterally Labs: No records from [facility] of recent labs Diagnostics : 2017 xrays showed some arthritic changes in R hip Assessment: Pina Reynaga is a 48 y.o. female with No diagnosis found. She has been getting worse with a form of myositis with elevated CK as per patient. She was thoughtto have fibromyalgia but this is less likely given recent events and positive FABIAN. Dermatomyositis vs polymyositis vs MTCD vs other. 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 Features of oral ulcers, possible raynauds, and previous problems with mcfp makes Sjogrens and therefore MTCD a possibility as well. History fungal sinusitis and MRSA makes immunocompromised syndrome a possibility as well. Recent short term memory loss with symptoms could be related to HIV infection as well. Plan: Continue current regimen as noted Follow up with Neuromuscular division at [facility] We also recommended following up with the sleep medicine physicians We will obtain an eye exam in preparation for the possibility of starting hydroxychloroquine The following were ordered during this visit: Orders Placed This Encounter ??? AMB Ref Ophthalmology - [facility] Standing Status: Future Standing Expiration Date: 08/10/2019 Referral Priority: Routine Referral Type: Consultation Referral Reason: Specialty Services Required Number of Visits Requested: 1 Keyon Garber MS4 IOVASCULAR SPECIALIST documented in this encounter Plan of Treatment Upcoming Encounters Date Type Department Care Team (Late st Contact Info) Description 10/19/2024 3:40 PM CARDIOVASCULAR SPECIALIST Clinical Support [facility] [place] [phone] 10/26/2024 3:20 PM CARDIOVASCULAR SPECIALIST Clinical Support [facility] [address] [place] [phone] 11/02/2024 3:40 PM CARDIOVASCULAR SPECIALIST Clinical Support [facility] [address] [place] [phone] 11/09/2024 3:20 PM CARDIOVASCULAR SPECIALIST Clinical Support [facility] [address] [place] [phone] documented as of this encounter Visit Diagnoses Diagnosis Positive FABIAN (antinuclear antibody)- Primary Other and unspecified nonspecific immunological findings Other specified abnormal immunological findings in serum Arthralgia, unspecified joint Other muscle spasm Fibromyalgia Mylagia and myositis, unspecified Chronic sinusitis, unspecified location documented in this encounter Care Teams Cable Mock Up Assembler Relationship Specialty Start Date End Date Jonathan Amado MD [address] [place] [phone] PCP - General Family Medicine 06/24/13 09/14/23 Jonathan Amado MD [facility] [place] [address] 06/24/13 documented as of this encounter
--- OUTSIDE RECORDS SUMMARY | 2024-10-17 03:08 | XMS_ITS | Encounter Summary ---
Author Organization [facility] Address [address] [place] [address] Care Team Providers Care Pharmacy Technologist Name Role Phone Jonathan Amado MD Primary Care Provider [phone]- [phone] Jonathan Amado MD Unavailable [phone] Reason for Visit * Reason Comments Immunotherapy Encounter Details Date Type Department Care Team (Latest Contact Info) Description 02/24/2018 3:30 PM CDT Clinical Support [facility] [address] [address] Allergic rhinitis due to pollen, unspecified seasonality [...] this encounter Patient Instructions * Patient Instructions* Ai Lomeli RN - 02/24/2018 4:53 PM CDT Please report any local reaction greater than half dollar size wheal or redness to office. For severe symptoms or anaphylaxis, such as angioedema, stridor, wheezing, use Epi pen (and inhaler if hx asthma) as directed, call 911 and go to closest Emergency Department. Please inform office at [phone] (HEIDY office nurse line) after you have been treated. documented in this encounter Progress Notes * Ai Lomeli RN - 02/24/2018 3:26 PM CDT Serum calculations have been reviewed by Dr. Arellano. Serum compounded into 7individual dose vials and kept at . Tree Mix [place] Mix Mold Mix Phenol Normal Saline SIGNATURE AND LOCATION 12/16/2017 0.12 0.25 0.12 0.25 Right upper arm SQ-sb 12/23/2017 0.25 0.25 0.25 Right upper arm Sq-sb 12/3001/06/2018 0.25 0.25 0.25 Left upper arm SQ on 01/13 -am 01/20/2018 0.25 0.25 0.25 Right upper arm SQ-sb 01/2602/03/2018 0.25 0.25 0.25 Left upper arm SQ on 02/24 -am 02/17/2018 0.25 0.25 0.25 03/03/2018 0.25 0.25 0.25 Department of Otolaryngology Head and Neck Surgery Patient Name: Pina Reynaga : 1970 Date: 02/24/2018 1. Did you bring your Epi-pen with you to clinic today? Yes 2. How are you feeling today? Not too bad. Sneezed a lot yesterday and had headache & pressure 3. How have you been feeling since your last shot? As above A. What symptoms do you have? None [...] anaphylaxis, and call 911. Pt acknowledges understanding. 1535 Time ambulatory from clinic in no distress, color pink, respiratory unlabored, steady on feet,voices no complaints. documented in this encounter Plan of Treatment Upcoming Encounters Date Type Department Care Team (Late st Contact Info) Description 10/19/2024 3:40 PM DIRECTOR COMMUNICATIONS Clinical Support [facility] [address] [place] [phone] 10/26/2024 3:20 PM DIRECTOR COMMUNICATIONS Clinical Support [facility] [address] [place] [phone] 11/02/2024 3:40 PM DIRECTOR COMMUNICATIONS Clinical Support [facility] [address] [place] [phone] 11/09/2024 3:20 PM DIRECTOR COMMUNICATIONS Clinical Support [facility] [address] [place] [phone] documented as of this encounter Visit Diagnoses Diagnosis Allergic rhinitis due to pollen, unspecified seasonality- Primary documented in this encounter Care Teams Pharmacy Technologist Relationship Specialty Start Date End Date Jonathan Amado MD [address] [place] [phone] PCP - General Family Medicine 06/24/13 09/14/23 Jonathan Amado MD [address] [place] [phone] 06/24/13 documented as of this encounter
--- OUTSIDE RECORDS SUMMARY | 2024-10-17 03:08 | XMS_ITS | Encounter Summary ---
Author Organization [facility] Address [address] [place], [place] [address] [address] Care Team Providers Care Health Program Manager Name Role Phone Jonathan Amado MD Primary Care Provider [phone]- [phone] Jonathan Amado MD Unavailable Encounter Details Date Type Department Care Team (Late st Contact Info) Description 10/15/2018 3:45 PM PCAT INSTRUCTOR Office Visit [facility] OTOLARYNGOLOGY [address], [address] [place] [address] Grupo Brice MD [address] [place] [address] [place] [address] Chronic sinusitis, unspecified location (Primary Dx) Social History Tobacco Use Types [...] Sign Reading Time Taken Comments Blood Pressure 119/80 10/15/2018 4:02 PM PCAT INSTRUCTOR Pulse 67 10/15/2018 4:02 PM PCAT INSTRUCTOR Temperature - - Respiratory Rate - - Oxygen Saturation - - Inhaled Oxygen Concentration - - Weight 71.7 kg (158 lb) 10/15/2018 4:02 PM PCAT INSTRUCTOR Height 162.6 cm (5' 4 ) 10/15/2018 4:02 PM PCAT INSTRUCTOR Body Mass Index 27.12 10/15/2018 4:02 PM PCAT INSTRUCTOR documented in this encounter Patient Instructions * Patient Instructions* Marilou Arreola 10/15/2018 4:11 PM PCAT INSTRUCTOR Thank you for visiting [facility] Otolaryngology - Head & Neck Surgery. [...] an appointment, please call our office at [phone] Friday through Friday from 8:30 am to4:30 pm. You can also request a routine appointment through your [employer] account. ??? Prescription Refills Contact your pharmacy [...] the medical exchange at and ask the commuter train operator to page the ENT physician call center professional. *Caller ID blocking service will need to be turned off for your call to be returned. We also specialize in Hearing Aids, Allergy testing, swallowing disorders, voice problems, cancer diagnosis, and so much more. Visit our website at [email or web address] for information about our practice and an interactive health encyclopedia. INSTRUCTOR documented in this encounter Progress Notes * Yoana Parsons - 10/15/2018 4:09 PM CST History of Present Illness: Pina is a 48 y.o. female who presents for evaluation of right-sided maxillary sinus disease. She presents today feeling miserable. She states she has been sick since finishing the last round of Prednisone that was prescribed the week before . She has since been experiencing severe congestion and fevers. The last antibiotic she was on was Tobramycin, but no oral antibiotics in the last 30 days. She used budesonide when she ran out of Tobramycin. No history of antifungal use. She states she has a terrible smell in her nose that gets worse when she blows her nose. Past Medical History: Past Medical History: Diagnosis Date ??? Disorder of maxillary sinus Past Surgical History: Procedure Laterality Date ??? Cholecystectomy, Laparoscopic ??? Hysterectomy endometrosis Family History Problem Relation Age of Onset ??? Psoriasis Mother Status: Alive ??? Arthritis - Osteo Mother ??? Hypertension Father Status: Alive ??? None Known Brother Current Outpatient Prescriptions Medication Sig Dispense Refill ??? cetirizine (ZYRTEC) 10 MG tablet Take 10 mg by mouth once daily ??? Tobramycin Add 1 capsule of 20mg to 240ml saline (patient may mix own saline). Irrigate half ineach nostril twice daily. 1 bottles 0 ??? guaiFENesin-codeine (ROBITUSSIN AC) 100-10 MG/5ML syrup Take 5 mL by mouth every 6 hours as needed 0 ??? magnesium 250 MG tablet Take 250 mg by mouth once daily ??? Cyanocobalamin (B-12) 1000 MCG Take 1,000 mcg by mouth ??? Pyridoxine HCl (B-6) 100 MG Take 100 mg by mouth ??? budesonide (PULMICORT) 0.5 MG/2ML nebulizer suspension [...] systems was completed and negative except for: General: fatigue, sleep problems, pain Head: headaches Eyes: eye pain Nose: sinus pain, congestion Mouth: tooth pain Nervous System: dizziness Mental Health: confusion Physical Examination: BP 119/80 Pulse 67 Ht 5' 4 (1.626 m) Wt 158 lb (71.7 kg) BMI 27.12 kg/m2 Body mass index is 27.12 kg/(m^2). Constitutional: in no apparent distress and [...] asymmetry, or inflammation Septum: Good alignment Turbinates: [place], non-edematous, without discharge Mucosa: [place], healthy appearing Oral Cavity: No perioral or [...] color, texture normal. No rashes or lesions No notes on file Assessment and Plan: Pina is a 48 y.o. female with right-sided maxillary sinus disease. Obtained cultures from bothnostrils for routine and fungal cultures. Nurse will call with results on Friday. Will prescribe prednisone and budesonide. Continue nasal saline irrigations with budesonide. RTC in 2 weeks. Acute inflammatory changes of the middle meatus but no evidence of purulence or pus sitting in the max her sinuses. We will attempt to see if we can identify the organism by repeating cultures today and hopefully get better distribution the budesonide by putting her on oral prednisone. I repeatedly asked her to get away from the workplace where she notes she has a repeat exposure to mold and the allergic reaction that she has been this having causes much of the congestion and symptoms that she experiences. She'll contact us in a couple of days for the culture results and then we'll make a determination whether she needs an antifungal and anti-biotic at that time I, Yoana Parsons, acted as scribe for Grupo Brice MD in documenting the service or procedure.To the best of my knowledge, I recorded what was dictated by Grupo Brice MD. I, Grupo Brice MD, have reviewed the initial documentation provided by Yoana Parsons and affirm that it is an accurate restatement of my dictated record of services. I understand and acknowledge that I am responsible for the accuracy of the documentation. INSTRUCTOR * Marilou Arreola - 10/15/2018 4:01 PM CST Review of Systems Pina Reynaga reports the following; General: fatigue, sleep problems, pain Head: headaches Eyes: eye pain Nose: sinus pain, congestion Mouth: tooth pain Nervous System: dizziness Mental Health: confusion INSTRUCTOR documented in this encounter Plan of Treatment Upcoming Encounters Date Type Department Care Team (Late st Contact Info) Description 10/19/2024 3:40 PM PCAT INSTRUCTOR Clinical Support [facility] [address] [place] [phone] 10/26/2024 3:20 PM PCAT INSTRUCTOR Clinical Support [facility] [address] [place] [phone] 11/02/2024 3:40 PM PCAT INSTRUCTOR Clinical Support [facility] [address] [place] [phone] 11/09/2024 3:20 PM PCAT INSTRUCTOR Clinical Support [facility] [address] [place] [phone] documented as of this encounter Procedures Procedure Name Priority Date/Time Associated Diagnosis Comments CULTURE FUNGUS OTHER+FUNGUS SMEAR Routine 10/15/2018 5:30 PM PCAT INSTRUCTOR Chronic sinusitis, unspecified location CULTURE FUNGUS OTHER+FUNGUS SMEAR Routine 10/15/2018 5:30 PM PCAT INSTRUCTOR Chronic sinusitis, unspecified location documented in this encounter Results * CULTURE FUNGUS OTHER+FUNGUS SMEAR (10/15/2018 5:30 PM PCAT INSTRUCTOR) Culture No fungus isolated CHERELLE 11/09/2018 5:40 AM PCAT INSTRUCTOR [facility] Fungus Smear No yeast or hyphae seen 11/09/2018 5:40 AM PCAT INSTRUCTOR [facility] Microbiology ENTIRE MAXILLARY SINUS / Unknown Collection / Unknown 10/15/2018 5:30 PM PCAT INSTRUCTOR 10/16/2018 11:40 AM PCAT INSTRUCTOR Grupo Brice MD LAB - MICROBIOLOGY [facility] Performing Organization Address City/[facility] Co de Phone Number [facility] MICROBIOLOGY [address] [place] [address], [facility] [phone] * CULTURE FUNGUS OTHER+FUNGUS SMEAR (10/15/2018 5:30 PM PCAT INSTRUCTOR) Culture No fungus isolated CHERELLE 11/09/2018 5:40 AM PCAT INSTRUCTOR [facility] Fungus Smear No yeast or hyphae seen 11/09/2018 5:40 AM PCAT INSTRUCTOR [facility] MICROBIOLOGY Microbiology ENTIRE MAXILLARY SINUS / Unknown Collection / Unknown 10/15/2018 5:30 PM PCAT INSTRUCTOR 10/16/2018 11:40 AM PCAT INSTRUCTOR Grupo Brice MD LAB - MICROBIOLOGY [place] [facility] MICROBIOLOGY [address] [place], [place] [address], [facility] [phone] documented in this encounter Visit Diagnoses Diagnosis Chronic sinusitis, unspecified location- Primary documented in this encounter Care Teams Health Program Manager Relationship Specialty Start Date End Date Jonathan Amado MD [address] [place] [phone] PCP - General Family Medicine 06/24/13 09/14/23 Jonathan Amado MD [facility] [place] [phone] 06/24/13 documented as of this encounter
--- OUTSIDE RECORDS SUMMARY | 2024-10-17 03:08 | XMS_ITS | Encounter Summary ---
Author Organization [facility] Address [facility] [facility] [place] [address] Care Team Providers Care Ham Marker Name Role Phone Jonathan Amado MD Primary Care Provider [phone]- [phone] Jonathan Amado MD Unavailable [phone] Reason for Visit * Reason Comments Allergy Symptoms Encounter Details Date Type Department Care Team (Late st Contact Info) Description 04/21/2018 1:30 PM CDT Office Visit [facility] Otolaryngology [address] [address] Grupo Brice MD [address] [place] [address] Nasal congestion (Primary Dx) Social History Tobacco [...] Sign Reading Time Taken Comments Blood Pressure 101/75 04/21/2018 1:17 PM CDT Pulse 74 04/21/2018 1:17 PM CDT Temperature - - Respiratory Rate - - Oxygen Saturation - - Inhaled Oxygen Concentration - - Weight 68.5 kg (151 lb) 04/21/2018 1:17 PM CDT Height - - Body Mass Index 25.92 01/26/2018 3:14 PM CDT documented in this encounter Patient Instructions * Patient Instructions* Lynda Colon - 04/21/2018 1:20 PM CDT Please call [phone] on before noon, we would like to know if you had a local reactionor not. Thank you for visiting [facility] Otolaryngology - Head & Neck Surgery. We [...] an appointment, please call our office at [phone] Friday through Friday from 8:30 am to4:30 pm. You can also request a routine appointment through your [employer] account. Prescription Refills Contact your pharmacy to [...] call the medical exchangeat and ask the class 1 owner operator to page the ENT physician salesperson books. *Caller ID blocking service will need to be turned off for your call to be returned. We also specialize in Hearing Aids, Allergy testing, swallowing disorders, voice problems, cancer diagnosis, and so much more. Visit our website at [email or web address] for information about our practice and an interactive healthencyclopedia. documented in this encounter Progress Notes * Lynda Colon - 04/21/2018 1:19 PM CDT Review of Systems Pina Reynaga reports the following; General: fatigue, sleep problems, pain Head: headaches Eyes: eye pain Nose: sinus pain, congestion Mouth: tooth pain Lungs: cough Musculoskeletal: joint pain, muscle pain * Keyon Anne MD - 04/21/2018 1:13 PM CDT History of Present Illness: Pina is a 48 y.o. female with PMH of recurrent sinus disease, nasal polyps, and fibromyalgia who presents for evaluation of several week hx of sinus symptoms. She complains of worsening nasal congestion with green mucus, dry nighttime cough, pain in sinuses and teeth bilaterally, sneezing, itching in throat, ears, and eyes. Denies hearing changes. Using saline rinses 2-3x/day, Zyrtec daily, sudafed as needed. Last known similar episode was about half a year to a year ago. She receives immunotherapy every 2 weeks and was previously on budesonide irrigations but switched to saline some time ago. Past Medical History: No past medical history on file. Past Surgical History: Procedure Laterality Date ??? Cholecystectomy, Laparoscopic ??? Hysterectomy endometrosis Family History Problem Relation Age of Onset ??? Psoriasis Mother Status: Alive ??? Arthritis - Osteo Mother ??? Hypertension Father Status: Alive ??? None Known Brother Current Outpatient Prescriptions Medication Sig Dispense Refill ??? melatonin 10 MG capsule Take 10 mg by mouth at bedtime ??? Tobramycin Add 1 capsule of 20mg to 240ml saline (patient may mix own saline). Irrigate half ineach nostril twice daily. 1 bottles 0 ??? Budesonide Add 1 capsule of 0.6mg to 240ml saline (patient may mix own saline). Irrigate half in each nostril twice daily. 60 capsule 11 ??? budesonide (PULMICORT) 0.5 MG/2ML nebulizer suspension Add 1 vial to 240ml saline (patient willmix own saline). Irrigate half in each nostril twice daily. 60 vial 11 ??? pseudoephedrine (SUDAFED) 30 MG tablet Take 30 mg by mouth every 4 hours as needed for Nasal Congestion ??? Cholecalciferol (VITAMIN D-3) 1000 UNITS Take 1,000 Units by mouth 2 times daily ??? pantoprazole EC (PROTONIX) 40 MG tablet Take 40 mg by mouth BID. 5 ??? EPINEPHrine (EPIPEN) 0.3 MG/0.3ML auto-injector pen Inject 0.3 mg into muscle. 1 Each 0 ??? rizatriptan (MAXALT) 10 MG tablet Take 1 tablet by mouth. ??? famotidine (PEPCID) 40 MG tablet Take 40 mg by mouth DAILY. (Patient not taking: Reported on 01/26/2018) No current facility-administered medications for this visit. Allergies Allergen Reactions ??? Doxycycline Rash ??? Sulfa Drugs Other and Rash Body aches ??? Contrast-Iodinated Agents For Ct/Other ??? Morphine ??? Ciprofloxacin Rash ??? Levaquin Rash ??? Compazine Syrup Anxiety Social History Substance Use Topics ??? Smoking status: Never Smoker ??? Smokeless tobacco: Never Used ??? Alcohol use No Review of Systems: An 14 point review of systems was completed and negative except for above. Physical Examination: BP 101/75 Pulse 74 Wt 151 lb (68.5 kg) BMI 25.92 kg/m2 Body mass index is 25.92 kg/(m^2). Constitutional: in no apparent distress and [...] or inflammation Septum: Good alignment Inf Turbinates: [place], non-edematous, without discharge Mucosa: [place], healthy appearing Oral Cavity: No perioral or [...] noted as stated below: ?? Findings: L middle meatus with some mucoid drainage, mild edema of the L maxillary sinus, L anterior ethmoid sinus without significant purulence or drainage. Moderate edema of the R middle turbinate, no drainage or edema within the R maxillary sinus. ?? Condition: Stable. Patient tolerated procedure well. ?? Complications: None ?? Dr. Brice was present for the entirety of the procedure. Assessment and Plan: Pina is a 48 y.o. female with hx of recurrent sinus disease who presents with symptoms consistent with acute sinus infection. - start on budesonide irrigations twice daily for 3 months - tobramycin 20mg mixed with saline irrigations for 1 month - continue immunotherapy - follow-up in clinic in 3 months or sooner if symptoms worsen Keyon Anne MD Otolaryngology - Head and Neck Surgery PGY-1 Associated attestation - Grupo Brice MD - 04/21/2018 2:09 PM CDT I have seen and examined the patient and agree with the comments and findings in the above residentnote. I was present for the entirety of the procedure Grupo Brice M.D. Professor Patient well known. Has some edema and drainage around the opening to the elft maxillary sinus Start Tobramycin for one month and budesonide FU 3 months documented in this encounter Procedure Notes * Keyon Anne MD - 04/21/2018 1:50 PM CDTAssociated Order(s): PROC SINUS ENDOSCOPY Procedure(s): KS NASAL ENDOSCOPY,DX Pre-Procedure Diagnose(s): Nasal congestion Procedure Note Endoscopy Type: Nasal Endoscopy without [...] of the R maxillary sinus. Condition: Stable. Patient tolerated procedure well. Complications: None Dr. Brice was present for the entirety of the procedure. documented in this encounter Plan of Treatment Upcoming Encounters Date Type Department Care Team (Late st Contact Info) Description 10/19/2024 3:40 PM CUTTING AND PRINTING MACHINE OPERATOR Clinical Support [facility] [address] [place] [phone] 10/26/2024 3:20 PM CUTTING AND PRINTING MACHINE OPERATOR Clinical Support [facility] [address] [place] [phone] 11/02/2024 3:40 PM CUTTING AND PRINTING MACHINE OPERATOR Clinical Support [facility] [address] [place] [phone] 11/09/2024 3:20 PM CUTTING AND PRINTING MACHINE OPERATOR Clinical Support [facility] [address] [place] [phone] documented as of this encounter Procedures Procedure Name Priority Date/Time Associated Diagnosis Comments KS NASAL ENDOSCOPY,DX Routine 04/21/2018 5:40 PM CDT Nasal congestion documented in this encounter Results * KS NASAL ENDOSCOPY,DX (04/21/2018 5:40 PM CDT) Narrative [...] Keyon Anne MD PROCEDURE/MINOR SURG ICAL ORDERABLES documented in this encounter Visit Diagnoses Diagnosis Nasal congestion- Primary Other diseases of nasal cavity and sinuses documented in this encounter Care Teams Ham Marker Relationship Specialty Start Date End Date Jonathan Amado MD [facility] [place] [phone] PCP - General Family Medicine 06/24/13 09/14/23 Jonathan Amado MD [facility] [place] [phone] 06/24/13 documented as of this encounter
--- OUTSIDE RECORDS SUMMARY | 2024-10-17 03:08 | XMS_ITS | Encounter Summary ---
Author Organization [facility] Address [address] [facility] [place] [address] Care Team Providers Care Accounting System Expert Name Role Phone Jonathan Amado MD Primary Care Provider [phone]- [phone] Jonathan Amado MD Unavailable [phone] Reason for Visit * Reason Comments Immunotherapy Encounter Details Date Type Department Care Team (Latest Contact Info) Description 10/14/2018 10:30 AM MANAGER NC Clinical Support [facility] Otolaryngology [address] [address] Allergic rhinitis, unspecified seasonality, unspecified trigger Social [...] * Patient Instructions* Charleen North RN - 10/14/2018 10:53 AM MANAGER NC Please report any local reaction greater than half dollar size wheal or redness to office. For severe symptoms or anaphylaxis, such as angioedema, stridor, wheezing, use Epi pen (and inhaler if hx asthma) as directed, call 911 and go to closest Emergency Department. Please inform office at [phone] (HEIDY office nurse line) after you have been treated. Reviewed treatment for local reaction including call office for reaction > 2 inches. Reviewed use epi-pen for signs of anaphylaxis, and call 911. Pt acknowledges understanding. GER NC documented in this encounter Progress Notes * Charleen North RN - 10/14/2018 10:51 AM CST Serum calculations have been reviewed by Dr. Arellano. Serum compounded into 7 individual dose vialsand mailed to patient. Date Tree Mix [place] Mix Mold Mix Phenol Normal Saline SIGNATURE AND LOCATION 07/14/2018 0.12 0.12 0.12 0.40 Right upper arm SQ-sb 07/21/2018 0.25 0.25 0.25 Right upper arm SQ on 07/28 -am 08/04/2018 0.25 0.25 0.25 Right upper arm SQ on 08/11 -am 08/18/2018 0.25 0.25 0.25 Right upper arm SQ-sb 08/2509/01/2018 0.25 0.25 0.25 Right upper arm SQ-ld 09/0809/15/2018 0.25 0.25 0.25 Right upper arm SQ on 09/29 -am 09/29/2018 0.25 0.25 0.25 Right upper arm SQ-sb 10/14/2018 Department of Otolaryngology Head and Neck Surgery Patient Name: Pina Reynaga : 1970 Date: 10/14/2018 1. Did you bring your Epi-pen with you to clinic today? Yes 2. How are you feeling today? So-so, not great. Still with congestion at nose / face worse over right cheek 3. How have you been feeling since your last shot? As above. Ears are plugged too. A. What symptoms do you have? sneezing B. When do you have these symptoms? constant C. Are your symptoms mild, moderate or severe? Severe at times 4. How has your asthma been? n/a [...] have a temperature >101? no Injection time: 1100 Site: Right Upper Arm SQ Vial Contents diluted with 0.5ml Normal Saline no No injection given due to Reaction: no Action taken: scarletdryl cream applied. Suggested pt take extra dose oral antihistamine this evening. Pt states no better, steroids did not help. Appointment scheduled for tomorrow Instructed pt to continue abx and budesonide in irrigations. 1130 Time ambulatory from clinic in no distress, color pink, respiratory unlabored, steady on feet,voices no complaints. GER NC documented in this encounter Plan of Treatment Upcoming Encounters Date Type Department Care Team (Late st Contact Info) Description 10/19/2024 3:40 PM MANAGER NC Clinical Support [facility] [address] [place] [phone] 10/26/2024 3:20 PM MANAGER NC Clinical Support [facility] [address] [place] [phone] 11/02/2024 3:40 PM MANAGER NC Clinical Support [facility] [address] [place] [phone] 11/09/2024 3:20 PM MANAGER NC Clinical Support [facility] [address] [place] [phone] documented as of this encounter Visit Diagnoses Diagnosis Allergic rhinitis, unspecified seasonality, unspecified trigger- Primary documented in this encounter Care Teams Accounting System Expert Relationship Specialty Start Date End Date Jonathan Amado MD [address] [place] [phone] PCP - General Family Medicine 06/24/13 09/14/23 Jonathan Amado MD [address] [place] [phone] 06/24/13 documented as of this encounter
--- OUTSIDE RECORDS SUMMARY | 2024-10-17 03:08 | XMS_ITS | Encounter Summary ---
Author Organization [facility] Address [address] [facility] [place] [address] Care Team Providers Care Venue Manager Name Role Phone Jonathan Amado MD Primary Care Provider [phone]- [phone] Jonathan Amado MD Unavailable [phone] Reason for Visit * Reason Comments Immunotherapy Encounter Details Date Type Department Care Team (Latest Contact Info) Description 06/16/2018 3:30 PM CDT Clinical Support [facility] Otolaryngology [address] [address] Allergic rhinitis due to pollen, unspecified seasonality [...] * Patient Instructions* Charleen North RN - 06/16/2018 3:38 PM CDT Reviewed treatment for local reaction [...] closest Emergency Department. Please inform office at [phone] (HEIDY office nurse line) after you have been treated. documented in this encounter Progress Notes * Charleen North RN - 06/16/2018 3:37 PM CDT Serum calculations have been reviewed by Dr. Arellano. Serum compounded into 7 individual dose vialsand mailed to patient. Date Tree Mix Hadley Mix Mold Mix Phenol Normal Saline SIGNATURE AND LOCATION 04/07/2018 0.25 0.25 0.12 0.13 Left upper arm SQ-sb 04/0904/14/2018 0.25 0.25 0.25 Right upper arm SQ on 04/21 -am 04/28/2018 0.25 0.25 0.25 Right and left upper arm SQ-sb 05/0505/12/2018 0.25 0.25 0.25 Right and left upper arm Sq-sb 05/2005/26/2018 0.25 0.25 0.25 Right and left upper arms SQ on 06/02 -am 06/09/2018 0.25 0.25 0.25 Right and left upper arm s SQ-sb 06/1606/23/2018 0.25 0.25 0.25 Department of Otolaryngology Head and Neck Surgery Patient Name: Pina Reynaga : 1970 Date: 06/16/2018 1. Did you bring your Epi-pen with you to clinic today? Yes 2. How are you feeling today? better 3. How have you been feeling since your last shot? As above. A. What symptoms do you have? As above B. When do you have these symptoms? As above C. Are your symptoms mild, moderate or severe? moderate 4. How has your asthma been? OK A. Is your asthma controlled or uncontrolled? Controlled B. Have you had any recent attacks? No 5. Are you having trouble breathing today? No 6. Have you had any problems with angioedema? No 7. Any local reactions from your last shot? Yes: mild per pt; does not describe 8. Are you on any beta margy antihypertensives? No 9. Have you taken any antihistamines since your last visit? Yes: daily, including today already 10. Do you have a temperature >101? no Injection time: 1535 Site: Right Upper Arm SQ and Left Upper Arm SQ Vial Contents diluted with 0.5ml Normal Saline yes No injection given due to Reaction: No Action taken: bensdryl cream applied at bilat injection sites. Reviewed treatment for local reaction including call office for reaction > 2 inches. Reviewed use epi-pen for signs of anaphylaxis, and call 911. Pt acknowledges understanding. 1605 Time ambulatory from clinic in no distress, color pink, respiratory unlabored, steady on feet,voices no complaints. documented in this encounter Plan of Treatment Upcoming Encounters Date Type Department Care Team (Late st Contact Info) Description 10/19/2024 3:40 PM MASTER BLACK BELT Clinical Support [facility] - ENT [address] [place] [phone] 10/26/2024 3:20 PM MASTER BLACK BELT Clinical Support [facility] [address] [place] [phone] 11/02/2024 3:40 PM MASTER BLACK BELT Clinical Support [facility] [address] [place] [phone] 11/09/2024 3:20 PM MASTER BLACK BELT Clinical Support [facility]NT [address] [place] [phone] documented as of this encounter Visit Diagnoses Diagnosis Allergic rhinitis due to pollen, unspecified seasonality- Primary documented in this encounter Care Teams Venue Manager Relationship Specialty Start Date End Date Jonathan Amado MD [address] [place] [phone] PCP - General Family Medicine 06/24/13 09/14/23 Jonathan Amado MD [address] [place] [phone] 06/24/13 documented as of this encounter
--- OUTSIDE RECORDS SUMMARY | 2024-10-17 03:08 | XMS_ITS | Encounter Summary ---
Author Organization [facility] Address [facility] [place] [address] Care Team Providers Care Restaurant Area Manager Name Role Phone Jonathan Amado MD Primary Care Provider [phone]- [phone] Jonathan Amado MD Unavailable [phone] Reason for Visit * Reason Comments Sinus Problem Encounter Details Date Type Department Care Team (Late st Contact Info) Description 10/27/2018 3:45 PM GLUELINE WORKER Office Visit [facility] Otolaryngology [address] [address] Grupo Brice MD [address] [place] [address] S/P FESS (functional endoscopic sinus surgery) (Primary Dx); Chronic maxillary sinusitis; Nasal congestion; Facial pressure Social History Tobacco Use Types Packs/Day Years [...] Sign Reading Time Taken Comments Blood Pressure 118/80 10/27/2018 3:36 PM GLUELINE WORKER Pulse 63 10/27/2018 3:36 PM GLUELINE WORKER Temperature - - Respiratory Rate - - Oxygen Saturation - - Inhaled Oxygen Concentration - - Weight 72.6 kg (160 lb) 10/27/2018 3:36 PM GLUELINE WORKER Height 162.6 cm (5' 4 ) 10/27/2018 3:36 PM GLUELINE WORKER Body Mass Index 27.46 10/27/2018 3:36 PM GLUELINE WORKER documented in this encounter Patient Instructions * Patient Instructions* Yoana Parsons - 10/27/2018 3:36 PM GLUELINE WORKER Thank you for visiting [facility] Otolaryngology - Head & Neck [...] an appointment, please call our office at [phone] Friday through Friday from 8:30 am to4:30 pm. You can also request a routine appointment through your [employer] account. ??? Prescription Refills Contact your pharmacy [...] the medical exchange at and ask the freezing machine operator to page the ENT physician space control agent. *Caller ID blocking service will need to be turned off for your call to be returned. We also specialize in Hearing Aids, Allergy testing, swallowing disorders, voice problems, cancer diagnosis, and so much more. Visit our website at [email or web address] for information about our practice and an interactive health encyclopedia. LINE WORKER documented in this encounter Progress Notes * Franc Lopez MD - 10/27/2018 4:53 PM CST History of Present Illness: Pina is a 48 y.o. female who presents for evaluation of right-sided maxillary sinus disease. This patient is well-known to this clinic. On her last evaluation she was signifcantly inflamed with purulence from right maxillary sinus she was started on oral prednisone and continued on her budesonide rinses. In the interim she reports waxing and waning symptoms of nasal congestion facial pressure/pain but overall improved she reports her main trigger is her workplace, confirmed with prolonged respite in symptoms over the holiday break. Past Medical History: Past Medical History: Diagnosis [...] mg into muscle. 1 Each 0 ??? guaiFENesin-codeine (ROBITUSSIN AC) 100-10 MG/5ML syrup Take 5 mL by mouth every 6 hours as needed 0 ??? magnesium 250 MG tablet Take 250 mg by mouth once daily ??? pantoprazole EC (PROTONIX) 40 MG tablet Take 40 mg by mouth BID. (Patient not taking: Reported on 10/27/2018) 5 ??? Pyridoxine HCl (B-6) 100 MG [...] systems was completed and negative except for: No other complaints Physical Examination: BP 118/80 Pulse 63 Ht 5' 4 (1.626 m) Wt 160 lb (72.6 kg) BMI 27.46 kg/m2 Body mass index is 27.46 kg/(m^2). Constitutional: in no apparent distress and [...] asymmetry, or inflammation Septum: Good alignment Turbinates: [place], non-edematous, without discharge Mucosa: [place], healthy appearing Oral Cavity: No perioral or [...] color, texture normal. No rashes or lesions Procedure: Rigid Nasal Endoscopy Anesthesia: Bilateral Nasal Cavities sprayed with Lidocaine and Neosynephrine Detail: Rigid nasal endoscopy performed bilaterally. Septum was not deviated. Bilateral post operative appearance. Right nasal cavity showed clear sinus and nasal passages, there were no polyps or purulence. Left nasal cavity showed clear sinus and nasal passages, there were no polyps or purulence,only mild edma to anterior ethmoids/frontal outflow. Dr. Brice was present for the entire procedure. 10/27/2018 5:[address] Review: Audiogram: Assessment and Plan: Pina is a 48 y.o. female with right maxillary sinusitis. 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 Fungal elements in her old building given her documented reaction to molds and temporal relation to her workplace). She is to continue with the topical irrigations follow-up in 4 weeks. Franc Lopez MD Otolaryngology/Head & Neck Surgery PGY-1 10/27/2018 I have seen and examined the patient and agree with the comments and findings in the above residentnote. I was present for the entirety of the procedure Grupo Brice M.D. Professor Examination today now shows complete resolution of the edematous changes in the maxillary sinus andethmoid sinus regions bilaterally. 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 The most important factor for improving her health would be avoiding areas that have mold or other irritants I'm asking her to see if there can be changes made in the workplace to improve her health LINE WORKER * Yoana Parsons - 10/27/2018 3:37 PM CST Review of Systems Pina Reynaga reports the following; Nose: sinus pain, post nasal drainage, congestion LINE WORKER documented in this encounter Procedure Notes * Franc Lopez MD - 10/27/2018 5:00 PM CSTAssociated Order(s): PROC SINUS ENDOSCOPY Procedure(s): ME NASAL ENDOSCOPY,DX Pre-Procedure Diagnose(s): Nasal congestion; Facial pressure Procedure: Rigid Nasal Endoscopy Anesthesia: Bilateral Nasal Cavities sprayed with Lidocaine and Neosynephrine Detail: Rigid nasal endoscopy performed bilaterally. Septum was not deviated. Bilateral post operative appearance. Right nasal cavity showed clear sinus and nasal passages, there were no polyps or purulence. Left nasal cavity showed clear sinus and nasal passages, there were no polyps or purulence,only mild edma to anterior ethmoids/frontal outflow. Dr. Brice was present for the entire procedure. 10/27/2018 5:00 PM LINE WORKER documented in this encounter Plan of Treatment Upcoming Encounters Date Type Department Care Team (Late st Contact Info) Description 10/19/2024 3:40 PM GLUELINE WORKER Clinical Support [facility] - ENT [address] [place] [phone] 10/26/2024 3:20 PM GLUELINE WORKER Clinical Support [facility] [address] [place] [phone] 11/02/2024 3:40 PM GLUELINE WORKER Clinical Support [facility] [address] [place] [phone] 11/09/2024 3:20 PM GLUELINE WORKER Clinical Support [facility] [address] [place] [phone] documented as of this encounter Procedures Procedure Name Priority Date/Time Associated Diagnosis Comments ME NASAL ENDOSCOPY,DX Routine 10/28/2018 9:11 AM GLUELINE WORKER Nasal congestion Facial pressure documented in this encounter Results * ME NASAL ENDOSCOPY,DX (10/28/2018 9:11 AM GLUELINE WORKER) Narrative Grupo Brice MD - 10/28/2018 9:11 AM GLUELINE WORKER Franc Lopez MD ? 10/27/2018 ??5:32 PM [...] Franc Lopez MD PROCEDURE/MINOR SURG ICAL ORDERABLES documented in this encounter Visit Diagnoses Diagnosis S/P FESS (functional endoscopic sinus surgery)- Primary Other postprocedural status Chronic maxillary sinusitis Nasal congestion Other diseases of nasal cavity and sinuses Facial pressure documented in this encounter Care Teams Restaurant Area Manager Relationship Specialty Start Date End Date Jonathan Amado MD [address] [place] [phone] PCP - General Family Medicine 06/24/13 09/14/23 Jonathan Amado MD [facility] [place] [address] 06/24/13 documented as of this encounter
--- OUTSIDE RECORDS SUMMARY | 2024-10-17 03:08 | XMS_ITS | Encounter Summary ---
Author Organization [facility] Address [facility] [address] Care Team Providers Care Home Organizer Name Role Phone Jonathan Amado MD Primary Care Provider [phone] Jonathan Amado MD Unavailable [phone] Encounter Details Date Type Department Care Team (Late st Contact Info) Description 09/29/2018 4:30 PM INFANT AND TODDLER TEACHER Office Visit [facility] Otolaryngology [address] [place] [address] Grupo Brice MD [address] [place] [address] Chronic maxillary sinusitis (Primary Dx) Social History [...] as of this encounter Progress Notes * Grupo Brice MD - 09/30/2018 7:29 PM CST History of Present Illness: Pina is a 48 y.o. female who presents for evaluation of right-sided maxillary sinus disease. This patient is well-known was. On her last evaluation she had a fungus ball in the right side which we aspirated she is now having drainage. She was on topical irrigation with budesonide and tobramycin and this is not resolved her symptoms. Past Medical History: No past medical history [...] 10 mg by mouth once daily ??? predniSONE (DELTASONE) 10 MG tablet Take in morning with food: 4 tablets for 2 days, then 3 tabs for 2 days, then 2 tabs for 2 days, then 1 tab for 2 days. 20 tablet 0 ??? Tobramycin Add 1 capsule of 20mg [...] except for: No other complaints Physical Examination: There were no vitals taken [...] with normal appearing landmarks, no fluid Nasal: Right maxillary sinus with purulent drainage culture taken today. External: nose shows no deformity, asymmetry, or inflammation Septum: Good alignment Turbinates: [place], non-edematous, without discharge Mucosa: [place], healthy appearing Oral Cavity: No perioral or [...] rashes or lesions No notes on file CT Review: Audiogram: Assessment and Plan: Pina is a 48 y.o. female with right maxillary sinusitis. She was started a day course of prednisone and continue with the topical irrigations follow-up in 3weeks NT AND TODDLER TEACHER documented in this encounter Plan of Treatment Upcoming Encounters Date Type Department Care Team (Late st Contact Info) Description 10/19/2024 3:40 PM INFANT AND TODDLER TEACHER Clinical Support [facility] [address] [place] [phone] 10/26/2024 3:20 PM INFANT AND TODDLER TEACHER Clinical Support [facility] [address] [place] [phone] 11/02/2024 3:40 PM INFANT AND TODDLER TEACHER Clinical Support [facility] [address] [place] [phone] 11/09/2024 3:20 PM INFANT AND TODDLER TEACHER Clinical Support [facility] - [facility] [address] [place] [phone] documented as of this encounter Visit Diagnoses Diagnosis Chronic maxillary sinusitis- Primary documented in this encounter Care Teams Home Organizer Relationship Specialty Start Date End Date Jonathan Amado MD [address] [place] [phone] PCP - General Family Medicine 06/24/13 09/14/23 Jonathan Amado MD [address] [place] [phone] 06/24/13 documented as of this encounter
--- OUTSIDE RECORDS SUMMARY | 2024-10-17 03:08 | XMS_ITS | Encounter Summary ---
Author Organization [facility] Address [address] [facility] [place] [address] Care Team Providers Care Technical Sales Associate Name Role Phone Jonathan Amado MD Primary Care Provider [phone] Jonathan Amado MD Unavailable [phone] Reason for Visit * Reason Comments Immunotherapy Encounter Details Date Type Department Care Team (Latest Contact Info) Description 08/25/2018 3:30 PM DIRECTOR OF COMMUNITY SERVICES Clinical Support [facility] Otolaryngology [address] [address] Allergic rhinitis, unspecified seasonality, unspecified trigger Social [...] * Patient Instructions* Charleen North RN - 08/25/2018 3:34 PM DIRECTOR OF COMMUNITY SERVICES Reviewed treatment for local reaction including call [...] closest Emergency Department. Please inform office at [phone] (HEIDY office nurse line) after you have been treated. CTOR OF COMMUNITY SERVICES documented in this encounter Progress Notes * Charleen North RN - 08/25/2018 3:30 PM CST Serum calculations have been reviewed by Dr. Arellano. Serum compounded into 7 individual dose vialsand mailed to patient. Date Tree Mix [place] Mix Mold Mix Phenol Normal Saline SIGNATURE AND LOCATION 07/14/2018 0.12 0.12 0.12 0.40 Right upper arm SQ-sb 07/21/2018 0.25 0.25 0.25 Right upper arm SQ on 07/28 -am 08/04/2018 0.25 0.25 0.25 Right upper arm SQ on 08/11 -am 08/18/2018 0.25 0.25 0.25 Right upper arm SQ-sb 08/2509/01/2018 0.25 0.25 0.25 09/15/2018 0.25 0.25 0.25 09/29/2018 0.25 0.25 0.25 Department of Otolaryngology Head and Neck Surgery Patient Name: Pina Reynaga : 1970 Date: 08/25/2018 1. Did you bring your Epi-pen with you to clinic today? Yes 2. How are you feeling today? lousy 3. How have you been feeling since your last shot? OK until 08/06, started with nasal congestion and sneezing; coworkers were worried. Saw PCP on 08/07, started Z Pack & cough medicine with codeine and guiafenasin. 08/25 states still has cough. But getting better A. What symptoms do you have? Scratchy [...] anaphylaxis, and call 911. Pt acknowledges understanding. 1545 Time ambulatory from clinic in no distress, color pink, respiratory unlabored, steady on feet,voices no complaints. CTOR OF COMMUNITY SERVICES documented in this encounter Plan of Treatment Upcoming Encounters Date Type Department Care Team (Late st Contact Info) Description 10/19/2024 3:40 PM DIRECTOR OF COMMUNITY SERVICES Clinical Support [facility] [address] [place] [phone] 10/26/2024 3:20 PM DIRECTOR OF COMMUNITY SERVICES Clinical Support [facility] [address] [place] [phone] 11/02/2024 3:40 PM DIRECTOR OF COMMUNITY SERVICES Clinical Support [facility] [address] [place] [phone] 11/09/2024 3:20 PM DIRECTOR OF COMMUNITY SERVICES Clinical Support [facility] [address] [place] [phone] documented as of this encounter Visit Diagnoses Diagnosis Allergic rhinitis, unspecified seasonality, unspecified trigger- Primary documented in this encounter Care Teams Technical Sales Associate Relationship Specialty Start Date End Date Jonathan Amado MD [address] [place] [phone] PCP - General Family Medicine 06/24/13 09/14/23 Jonathan Amado MD [address] [place] [phone] 06/24/13 documented as of this encounter
--- OUTSIDE RECORDS SUMMARY | 2024-10-17 03:08 | XMS_ITS | Encounter Summary ---
Author Organization [facility] Address [address] [facility] [place] [address] Care Team Providers Care Architecture Consultant Name Role Phone Jonathan Amado MD Primary Care Provider [phone] Jonathan Amado MD Unavailable [phone] Reason for Visit * Reason Comments Immunotherapy Encounter Details Date Type Department Care Team (Latest Contact Info) Description 09/08/2018 3:30 PM FIRE EQUIPMENT REPAIRER INSPECTOR Clinical Support [facility] Otolaryngology [address] [address] Allergic rhinitis due to pollen, unspecified seasonality ; Allergic rhinitis, unspecified seasonality, unspecified trigger Social [...] encounter Patient Instructions * Patient Instructions* Ryanne Herring RN - 09/08/2018 5:43 PM FIRE EQUIPMENT REPAIRER INSPECTOR Please report any local reaction greater than half dollar size wheal or redness to office. For severe symptoms or anaphylaxis, such as angioedema, stridor, wheezing, [facility] Please inform office at [phone] after you have been treated. Pt instructed to take Epi Pen to each office visit for allergy injections. Pt given verbal and written instruction for self administration of Epi Pen should an anaphylactic reaction occur. Pt verbalizes understanding. EQUIPMENT REPAIRER INSPECTOR documented in this encounter Progress Notes * Ryanne Herring RN - 09/08/2018 3:50 PM CST Serum calculations have been reviewed by Dr. Arellano. Serum compounded into 7 individual dose vialsand mailed to patient. Date Tree Mix [place] Mix Mold Mix Phenol Normal Saline SIGNATURE AND LOCATION 07/14/2018 0.12 0.12 0.12 0.40 Right upper arm SQ-sb 07/21/2018 0.25 0.25 0.25 Right upper arm SQ on 07/28 -am 08/04/2018 0.25 0.25 0.25 Right upper arm SQ on 08/11 -am 08/18/2018 0.25 0.25 0.25 Right upper arm SQ-sb 08/2509/01/2018 0.25 0.25 0.25 Right upper arm SQ-ld 09/0809/15/2018 0.25 0.25 0.25 09/29/2018 0.25 0.25 0.25 Department of Otolaryngology Head and Neck Surgery Patient Name: Pina Reynaga : 1970 Date: 09/08/2018 1. Did you bring your Epi-pen with you to clinic today? Yes 2. How are you feeling today? lousy 3. How have you been feeling since your last shot? OK feeling better still using tobramycin irrigations A. What symptoms do you have? None really, sneezing some B. When do you have these symptoms? Randomly throughout the day C. Are your symptoms mild, moderate or severe? Mild to moderate 4. How has your asthma been? [...] have a temperature >101? no Injection time: 1550 Site: Right Upper Arm SQ Vial Contents diluted with 0.5ml Normal Saline no No injection given due to Reaction: No Action taken: Reviewed treatment for local reaction including call office for reaction > 2 inches. Reviewed use epi-pen for signs of anaphylaxis, and call 911. Pt acknowledges understanding. Pt seeing Dr. Brice for routine check. 1610 Time ambulatory from clinic in no distress, color pink, respiratory unlabored, steady on feet,voices no complaints. EQUIPMENT REPAIRER INSPECTOR documented in this encounter Plan of Treatment Upcoming Encounters Date Type Department Care Team (Late st Contact Info) Description 10/19/2024 3:40 PM FIRE EQUIPMENT REPAIRER INSPECTOR Clinical Support [facility] [address] [place] [phone] 10/26/2024 3:20 PM FIRE EQUIPMENT REPAIRER INSPECTOR Clinical Support [facility] [address] [place] [phone] 11/02/2024 3:40 PM FIRE EQUIPMENT REPAIRER INSPECTOR Clinical Support [facility] [address] [place] [phone] 11/09/2024 3:20 PM FIRE EQUIPMENT REPAIRER INSPECTOR Clinical Support [facility] [address] [place] [phone] documented as of this encounter Visit Diagnoses Diagnosis Allergic rhinitis due to pollen, unspecified seasonality- Primary Allergic rhinitis, unspecified seasonality, unspecified trigger documented in this encounter Care Teams Architecture Consultant Relationship Specialty Start Date End Date Jonathan Amado MD [address] [place] [phone] PCP - General Family Medicine 06/24/13 09/14/23 Jonathan Amado MD [address] [place] [phone] 06/24/13 documented as of this encounter
--- OUTSIDE RECORDS SUMMARY | 2024-10-17 03:08 | XMS_ITS | Encounter Summary ---
Author Organization [facility] Address [address] [place] [address] Care Team Providers Care Industrial Organizational Psychologist Name Role Phone Jonathan Amado MD Primary Care Provider [phone] Jonathan Amado MD Unavailable Reason for Visit * Reason Comments Immunotherapy Encounter Details Date Type Department Care Team (Latest Contact Info) Description 11/11/2018 10:00 AM OIM ARCHITECT Clinical Support [facility] Otolaryngology [address] [address] Allergic rhinitis, unspecified seasonality, unspecified trigger Social [...] * Patient Instructions* Charleen North RN - 11/11/2018 10:09 AM OIM ARCHITECT Please report any local reaction greater than half dollar size wheal or redness to office. For severe symptoms or anaphylaxis, such as angioedema, stridor, wheezing, use Epi pen (and inhaler if hx asthma) as directed, call 911 and go to closest Emergency Department. Please inform office at [phone] ([facility] office nurse line) after you have been treated. Reviewed treatment for local reaction including call office for reaction > 2 inches. Reviewed use epi-pen for signs of anaphylaxis, and call 911. Pt acknowledges understanding. ARCHITECT documented in this encounter Progress Notes * Charleen North RN - 11/11/2018 9:30 AM CST Serum calculations have been reviewed by Dr. Arellano. Serum compounded into 7 [facility]. Date Tree Mix [place] Mix Mold Mix Phenol Normal Saline SIGNATURE AND LOCATION 10/21/2018 0.25 0.12 0.12 0.25 Right upper arm SQ on 10/27 -am 10/28/2018 0.25 0.25 0.25 Right upper arm SQ 11/11 sb 11/11/2018 0.25 0.25 0.25 11/25/2018 0.25 0.25 0.25 12/09/2018 0.25 0.25 0.25 12/23/2018 0.25 0.25 0.25 01/06/2019 0.25 0.25 0.25 Department of Otolaryngology Head and Neck Surgery Patient Name: Pina Reynaga : 1970 Date: 11/11/2018 1. Did you bring your Epi-pen with you to clinic today? Yes 2. How are you feeling today? Tired 3. How have you been feeling since your last shot? Feeling good today A. What symptoms do you have? Sneezing, itchy eyes B. When do you have these [...] have a temperature >101? no Injection time: 0930 Site: Right Upper Arm SQ Vial Contents diluted with 0.5ml Normal Saline no No injection given due to Reaction: No Action taken: Reviewed treatment for local reaction including call office for reaction > 2 inches. Reviewed use epi-pen for signs of anaphylaxis, and call 911. Pt acknowledges understanding. 0945 Time ambulatory from clinic in no distress, color pink, respiratory unlabored, steady on feet,voices no complaints. ARCHITECT documented in this encounter Plan of Treatment Upcoming Encounters Date Type Department Care Team (Late st Contact Info) Description 10/19/2024 3:40 PM OIM ARCHITECT Clinical Support [facility] [address] [place] [phone] 10/26/2024 3:20 PM OIM ARCHITECT Clinical Support [facility] [address] [place] [phone] 11/02/2024 3:40 PM OIM ARCHITECT Clinical Support [facility] [address] [place] [phone] 11/09/2024 3:20 PM OIM ARCHITECT Clinical Support [facility] [address] [place] [phone] documented as of this encounter Visit Diagnoses Diagnosis Allergic rhinitis, unspecified seasonality, unspecified trigger- Primary documented in this encounter Care Teams Industrial Organizational Psychologist Relationship Specialty Start Date End Date Jonathan Amado MD [address] [place] [phone] PCP - General Family Medicine 06/24/13 09/14/23 Jonathan Amado MD [address] [place] [phone] 06/24/13 documented as of this encounter
--- OUTSIDE RECORDS SUMMARY | 2024-10-17 03:08 | XMS_ITS | Encounter Summary ---
Author Organization [facility] Address [address] [place] [address] Care Team Providers Care Director Service Name Role Phone Jonathan Amado MD Primary Care Provider [phone]- [phone] Jonathan Amado MD Unavailable [phone] Reason for Visit * Reason Comments Immunotherapy Encounter Details Date Type Department Care Team (Latest Contact Info) Description 10/27/2018 3:30 PM STRAIGHT TOOTH GEAR GENERATOR OPERATOR Clinical Support [facility] Otolaryngology [address] [address] Allergic rhinitis due to pollen, unspecified seasonality [...] Progress Notes * Ai Lomeli, RN - 10/27/2018 3:45 PM CST Serum calculations have been reviewed by Dr. Arellano. Serum compounded into 7 individual dose vialsand kept at [facility] for injections. Date Tree Mix [place] Mix Mold Mix Phenol Normal Saline SIGNATURE AND LOCATION 10/21/2018 0.25 0.12 0.12 0.25 Right upper arm SQ on 10/27 -am 10/18/2018 0.25 0.25 0.25 11/11/2018 0.25 0.25 0.25 11/25/2018 0.25 0.25 0.25 12/09/2018 0.25 0.25 0.25 12/23/2018 0.25 0.25 0.25 01/06/2019 0.25 0.25 0.25 Department of Otolaryngology Head and Neck Surgery Patient Name: Pina Reynaga : 1970 Date: 10/27/2018 1. Did you bring your Epi-pen with you to clinic today? Yes 2. How are you feeling today? Tired after multiple oral antihistamines 3. How have you been feeling since your last shot? Not good, has seen Dr. Brice, and seems to feel worse whenever she goes to work. A. What symptoms do you have? Sneezing, [...] have a temperature >101? no Injection time: 1545 Site: Right Upper Arm SQ Vial Contents [...] respiratory unlabored, steady on feet,voices no complaints. IGHT TOOTH GEAR GENERATOR OPERATOR documented in this encounter Plan of Treatment Upcoming Encounters Date Type Department Care Team (Late st Contact Info) Description 10/19/2024 3:40 PM STRAIGHT TOOTH GEAR GENERATOR OPERATOR Clinical Support [facility] [address] [place] [phone] 10/26/2024 3:20 PM STRAIGHT TOOTH GEAR GENERATOR OPERATOR Clinical Support [facility] [address] [place] [phone] 11/02/2024 3:40 PM STRAIGHT TOOTH GEAR GENERATOR OPERATOR Clinical Support [facility] [address] [place] [phone] 11/09/2024 3:20 PM STRAIGHT TOOTH GEAR GENERATOR OPERATOR Clinical Support [facility] [address] [place] [phone] documented as of this encounter Visit Diagnoses Diagnosis Allergic rhinitis due to pollen, unspecified seasonality- Primary documented in this encounter Care Teams Director Service Relationship Specialty Start Date End Date Jonathan Amado MD [address] [place] [phone] PCP - General Family Medicine 06/24/13 09/14/23 Jonathan Amado MD [address] [place] [phone] 06/24/13 documented as of this encounter
--- OUTSIDE RECORDS SUMMARY | 2024-10-17 03:08 | XMS_ITS | Encounter Summary ---
Author Organization [facility] [place] [facility] Address [address] [place] [address] Care Team Providers Care Cardroom Supervisor Name Role Phone Jonathan Amado MD Primary Care Provider [phone] Jonathan Amado MD Unavailable Reason for Visit * Reason Comments Immunotherapy Encounter Details Date Type Department Care Team (Latest Contact Info) Description 07/02/2018 3:30 PM CDT Clinical Support [facility] Otolaryngology [address] [address] Allergic rhinitis due to pollen, unspecified seasonality [...] * Patient Instructions* Charleen North RN - 07/02/2018 3:33 PM CDT Reviewed treatment for local reaction [...] closest Emergency Department. Please inform office at [phone] ([facility] office nurse line) after you have been treated. documented in this encounter Progress Notes * Charleen North RN - 07/02/2018 3:33 PM CDT Serum calculations have been reviewed by Dr. Arellano. Serum compounded into 7 individual dose vialsand mailed to patient. Date Tree Mix [place] Mix Mold Mix Phenol Normal Saline SIGNATURE [...] arm s SQ-sb 06/1606/23/2018 0.25 0.25 0.25 Right and left upper arm SQ-sb 07/02 Department of Otolaryngology Head and Neck Surgery Patient Name: Pina Reynaga : 1970 Date: 07/02/2018 1. Did you bring your Epi-pen with [...] st Contact Info) Description 10/19/2024 3:40 PM COMPRESSOR STATION OPERATOR Clinical Support [facility] [address] [place] [phone] 10/26/2024 3:20 PM COMPRESSOR STATION OPERATOR Clinical Support [facility] - [facility]NT [address] [place] [phone] 11/02/2024 3:40 PM COMPRESSOR STATION OPERATOR Clinical Support [facility] [address] [place] [phone] 11/09/2024 3:20 PM COMPRESSOR STATION OPERATOR Clinical Support [facility] - [facility]NT [address] [place] [phone] documented as of this encounter Visit Diagnoses Diagnosis Allergic rhinitis due to pollen, unspecified seasonality- Primary documented in this encounter Care Teams Cardroom Supervisor Relationship Specialty Start Date End Date Jonathan Amado MD [address] [place] [phone] PCP - General Family Medicine 06/24/13 09/14/23 Jonathan Amado MD [address] [place] [phone] 06/24/13 documented as of this encounter
--- OUTSIDE RECORDS SUMMARY | 2024-10-17 03:08 | XMS_ITS | Encounter Summary ---
Author Organization [facility] Address [address] [place] [address] Care Team Providers Care Profiler Name Role Phone Jonathan Amado MD Primary Care Provider [phone]- [phone] Jonathan Amado MD Unavailable [phone] Reason for Visit * Reason Comments Immunotherapy Encounter Details Date Type Department Care Team (Latest Contact Info) Description 05/05/2018 10:30 AM CDT Clinical Support [facility] Otolaryngology [address] [address] Allergic rhinitis due to pollen, unspecified seasonality [...] * Patient Instructions* Charleen North RN - 05/05/2018 2:39 PM CDT Please report any local reaction greater than half dollar size wheal or redness to office. For severe symptoms or anaphylaxis, such as angioedema, stridor, wheezing, use Epi pen (and inhaler if hx asthma) as directed, call 911 and go to closest Emergency Department. Please inform office at [phone] ([facility] office nurse line) after you have been treated. Reviewed treatment for local reaction including call office for reaction > 2 inches. Reviewed use epi-pen for signs of anaphylaxis, and call 911. Pt acknowledges understanding. documented in this encounter Progress Notes * Charleen North RN - 05/05/2018 9:48 AM CDT Serum calculations have been reviewed by Dr. Arellano. Serum compounded into 7 individual dose vialsand mailed to patient. Date Tree Mix [place] Mix Mold Mix Phenol Normal Saline SIGNATURE AND LOCATION 04/07/2018 0.25 0.25 0.12 0.13 Left upper arm SQ-sb 04/0904/14/2018 0.25 0.25 0.25 Right upper arm SQ on 04/21 -am 04/28/2018 0.25 0.25 0.25 Right and left upper arm SQ-sb 05/0505/12/2018 0.25 0.25 0.25 05/26/2018 0.25 0.25 0.25 06/09/2018 0.25 0.25 0.25 06/23/2018 0.25 0.25 0.25 Department of Otolaryngology Head and Neck Surgery Patient Name: Pina Reynaga : 1970 Date: 05/05/2018 1. Did you bring your Epi-pen with [...] >101? no Injection time: 0930 Site: Right and Left Upper Arm SQ Vial Contents diluted with 0.5ml Normal Saline yes No injection given due to Reaction: No Action taken: 1000Time ambulatory from clinic in no distress, color pink, respiratory unlabored, steady on feet, voices no complaints -- after MD appointment. documented in this encounter Plan of Treatment Upcoming Encounters Date Type Department Care Team (Late st Contact Info) Description 10/19/2024 3:40 PM MASTER BREWER Clinical Support [facility] [address] [place] [phone] 10/26/2024 3:20 PM MASTER BREWER Clinical Support [facility] [address] [place] [phone] 11/02/2024 3:40 PM MASTER BREWER Clinical Support [facility] [address] [place] [phone] 11/09/2024 3:20 PM MASTER BREWER Clinical Support [facility] [address] [place] [phone] documented as of this encounter Visit Diagnoses Diagnosis Allergic rhinitis due to pollen, unspecified seasonality- Primary documented in this encounter Care Teams Profiler Relationship Specialty Start Date End Date Jonathan Amado MD [address] [place] [phone] PCP - General Family Medicine 06/24/13 09/14/23 Jonathan Amado MD [address] [place] [phone] 06/24/13 documented as of this encounter
--- OUTSIDE RECORDS SUMMARY | 2024-10-17 03:08 | XMS_ITS | Encounter Summary ---
Author Organization [facility] Address [address] [facility] [place] [address] Care Team Providers Care Extras Casting Director Name Role Phone Jonathan Amado MD Primary Care Provider [phone] Jonathan Amado MD Unavailable [phone] Reason for Visit * Reason Comments Immunotherapy Encounter Details Date Type Department Care Team (Latest Contact Info) Description 06/02/2018 3:30 PM CDT Clinical Support [facility] Otolaryngology [address] [address] Allergic rhinitis due to pollen, unspecified seasonality [...] Progress Notes * Ai Lomeli, RN - 06/02/2018 3:45 PM CDT Serum calculations have been reviewed by Dr. Arellano. Serum compounded into 7 individual dose vialsand mailed to patient. Date Tree Mix [place] Mix Mold Mix Phenol Normal Saline SIGNATURE [...] on 06/02 -am 06/09/2018 0.25 0.25 0.25 06/23/2018 0.25 0.25 0.25 Department of Otolaryngology Head and Neck Surgery Patient Name: Pina Reynaga : 1970 Date: 06/02/2018 1. Did you bring your Epi-pen with you to clinic today? Yes 2. How are you feeling today? Still stuffed up sometimes; has been on tobramycin in irrigations for3 weeks. Gagging with PND; aoprb-[id number] drainage at nose. Declines MD mcallister today. 3. How have you been feeling since your last shot? As above. Worse in mornings. A. What symptoms do you have? As [...] time: 1545 Site: Right Upper Arm SQ and Left Upper Arm SQ Vial Contents diluted with 0.5ml Normal Saline yes No injection given due to Reaction: No Action taken: benedryl cream applied at bilat injection sites. Reviewed treatment for local reaction including call office for reaction > 2 inches. Reviewed use epi-pen for signs of anaphylaxis, and call 911. Pt acknowledges understanding. Prescription for Pazeo as per previous discussion with Dr. Brice. Pt reports sample previously provided did help. Zatidor provided relief for about 1 hour. No relief with Visine. Previously had tried Pataday, also only provided temporary relief. 1605 Time ambulatory from clinic in no distress, color pink, respiratory unlabored, steady on feet,voices no complaints. documented in this encounter Plan of Treatment Upcoming Encounters Date Type Department Care Team (Late st Contact Info) Description 10/19/2024 3:40 PM RECORD CHANGER Clinical Support [facility] [address] [place] [phone] 10/26/2024 3:20 PM RECORD CHANGER Clinical Support [facility] [address] [place] [phone] 11/02/2024 3:40 PM RECORD CHANGER Clinical Support [facility] [address] [place] [phone] 11/09/2024 3:20 PM RECORD CHANGER Clinical Support [facility] [address] [place] [phone] documented as of this encounter Visit Diagnoses Diagnosis Allergic rhinitis due to pollen, unspecified seasonality- Primary documented in this encounter Care Teams Extras Casting Director Relationship Specialty Start Date End Date Jonathan Amado MD [facility] [place] [phone] PCP - General Family Medicine 06/24/13 09/14/23 Jonathan Amado MD [facility] [place] [phone] 06/24/13 documented as of this encounter
--- OUTSIDE RECORDS SUMMARY | 2024-10-17 03:08 | XMS_ITS | Encounter Summary ---
Author Organization [facility] Address [facility] [place] [address] Care Team Providers Care Ob Tech Name Role Phone Jonathan Amado MD Primary Care Provider [phone] Jonathan Amado MD Unavailable [phone] Reason for Visit * Reason Comments Follow-up Fibro Encounter Details Date Type Department Care Team (Latest Contact Info) Description 01/26/2018 3:00 PM CDT Office Visit [facility] [address] [place] [address] Sarika Edwards MD [address] [place] [address] Fibromyalgia (Primary Dx); Myalgia; Other muscle spasm; Other specified abnormal immunological findings in serum; Left knee pain, unspecified chronicity Social History Tobacco Use Types Packs/Day Years [...] Sign Reading Time Taken Comments Blood Pressure 102/70 01/26/2018 3:14 PM CDT Pulse 76 01/26/2018 3:14 PM CDT Temperature 36.4 ??C (97.5 ??F) 01/26/2018 3:14 PM CD T Respiratory Rate - - Oxygen Saturation - - Inhaled Oxygen Concentration - - Weight 68 kg (150 lb) 01/26/2018 3:14 PM CDT Height 162.6 cm (5' 4 ) 01/26/2018 3:14 PM CDT Body Mass Index 25.75 01/26/2018 3:14 PM CDT documented in this encounter Progress Notes * Sarika Edwards MD - 01/26/2018 4:14 PM CDT This note started in error - please see separate not for this visit * Sarika Edwards MD - 01/26/2018 4:14 PM CDT [facility] Visit Attending Follow-up Progress Note PCP: Jonathan Amado MD Patient: Pina Reynaga, : 1970 Interval History: Pina Reynaga is a 47 y.o. female with 1. Fibromyalgia 2. Myalgia 3. Other muscle spasm 4. Other specified abnormal immunological findings in serum 5. Left knee pain, unspecified chronicity here for f/u visit. The patient was last seen 07/25/18. Overall feeling tired - not sleeping well -got a fit bit - it shows that she is not sleeping well - to see PCP- will discuss - Also feels achy - still - maybe worse all over - Continues with oral ulcerations - has started to note hair loss - nails breaking off - teeth are decaying despite brushing 3x/day. Saw another provider - more natural approach - (may be the chiropractor) Had a dietary intolerance test - showed various foods to avoid - she has been trying to avoid some foods- unclear if it is helping - showed overgrowth of eamon- she notes it is worse after she tookflagyl - notes white coating on tongue - She has been going to a chiropractor - goes on a vibrating machine befoe adjustment - also woble seat with hip rotation before - She was getting to the point that she couldn't get out of bed because of her back pain - was going to the gym but was making it worse - treadmill - was lifitnglight weights - seemed to make her tenseup more - She is to go back today for a repeat scan - did x-rays - had narring of the bottom of the c-spine -per her report Has been going about 3 weeks - goes 2x/week - (started december 22) ROS: General: not Generally feeling well, + fatigue, not sleeping well, no weight change Eyes: not severe dry eyes ENT: + dry mouth, + oral ulcers CV: occ chest pain Pulm: occ cough,not sig dyspnea on exertion GI: + dysphagia,+ heartburn,no diarrhea, no constipation : no dysuria Skin: no noted rashes Musculo: + Joint pain, + joint swelling, + muscle pain, + muscle weakness, AM stiffness - 30 min - 1 hr. Ambulates with difficulty. Neuro: + headaches, + N/T in extremities, Psych: + depression Current Medications: Current Outpatient Prescriptions Medication Sig ??? Cholecalciferol (VITAMIN D-3) 1000 UNITS Take 1,000 Units by mouth 2 times daily ??? pantoprazole EC (PROTONIX) 40 MG tablet Take 40 mg by mouth BID. ??? EPINEPHrine (EPIPEN) 0.3 MG/0.3ML auto-injector pen Inject 0.3 mg into muscle. ??? rizatriptan (MAXALT) 10 MG tablet Take 1 tablet by mouth. ??? famotidine (PEPCID) 40 MG tablet Take 40 mg by mouth DAILY. (Patient not taking: Reported on 01/26/2018) No current facility-administered medications for this visit. Allergies: Doxycycline; Sulfa drugs; Contrast-iodinated agents for ct/other; Morphine; Ciprofloxacin; Levaquin; and Compazine syrup Physical Exam: BP 102/70 (BP SITE: LEFT ARM, BP POSITION: SITTING, BP CUFF SIZE: 11) Pulse 76 Temp 97.5 ??F (36.4 ??C) (Oral) Ht 5' 4 (1.626 m) Wt 150 lb (68 kg) BMI 25.75 kg/m2 System General: Normal; no distress; cooperative - generally flat affect Skin: No rash HEENT: NC/AT. No pharyngeal erythema or exudate. No oral ulcers noted. Sl dry mucous membranes Neck: Supple. No LAD Back: + paraspinal muscle / spinal tenderness Chest/Lungs: CTAB Heart: RRR; nL S1/S2, no murmur Abdomen; deferred Neurologic: Grossly normal Joint Exam: + tender points in a classic distribution for FMS No active synovitis noted Labs: Results for PINA REYNAGA ( ) as of 02/15/2018 10:20 Ref. Range 07/26/2017 11:15 Ck, Total Latest Ref Range: 24 - 173 U/L 126 Glucose Latest Ref Range: 65 - 99 mg/dL 85 BUN Latest Ref Range: 6 - 24 mg/dL 10 Creatinine Latest Ref Range: 0.57 - 1.00 mg/dL 0.77 BUN/Creatinine Ratio Latest Ref Range: 9 - 23 13 Sodium Latest Ref Range: 134 - 144 mmol/L 141 Potassium Latest Ref Range: 3.5 - 5.2 mmol/L 3.9 Chloride Latest Ref Range: 96 - 106 mmol/L 100 Carbon Dioxide Latest Ref Range: 18 - 29 mmol/L 26 Calcium Latest Ref Range: 8.7 - 10.2 mg/dL 9.7 Alkaline Phosphatase Latest Ref Range: 39 - 117 IU/L 96 ALT (SGPT) Latest Ref Range: 0 - 32 IU/L 19 AST/SGOT Latest Ref Range: 0 - 40 IU/L 26 Total Protein Latest Ref Range: 6.0 - 8.5 g/dL 6.7 Albumin Latest Ref Range: 3.5 - 5.5 g/dL 4.6 Bilirubin Total Latest Ref Range: 0.0 - 1.2 mg/dL 0.5 LD Total Latest Ref Range: 119 - 226 IU/L 222 Globulin, Total Latest Ref Range: 1.5 - 4.5 g/dL 2.1 eGFR non- Latest Ref Range: >59 mL/min/1.73 93 eGFR Latest Ref Range: >59 mL/min/1.73 107 A/G Ratio Latest Ref Range: 1.2 - 2.2 2.2 Aldolase Latest Ref Range: 3.3 - 10.3 U/L 3.5 CRP (mg/L) Latest Ref Range: 0.0 - 4.9 mg/L <0.3 WBC Latest Ref Range: 3.4 - 10.8 x10E3/uL 5.4 RBC Latest Ref Range: 3.77 - 5.28 x10E6/uL 4.83 Hemoglobin Latest Ref Range: 11.1 - 15.9 g/dL 14.9 HEMATOCRIT Latest Ref Range: 34.0 - 46.6 % 42.8 MCV Latest Ref Range: 79 - 97 fL 89 MCH Latest Ref Range: 26.6 - 33.0 pg 30.8 MCHC Latest Ref Range: 31.5 - 35.7 g/dL 34.8 Platelets Latest Ref Range: 150 - 379 x10E3/uL 200 RDW-CV Latest Ref Range: 12.3 - 15.4 % 12.9 Neutrophil % Latest Ref Range: Not Estab. % 48 Lymphocytes % Latest Ref Range: Not Estab. % 38 Eosinophils, % Latest Ref Range: Not Estab. % 6 Basophil % Latest Ref Range: Not Estab. % 1 Immature grans, abs Latest Ref Range: 0.0 - 0.1 x10E3/uL 0.0 Neutrophil Absolute Latest Ref Range: 1.4 - 7.0 x10E3/uL 2.6 Lymphocyte Absolute Manual Latest Ref Range: 0.7 - 3.1 x10E3/uL 2.1 EOS ABS Latest Ref Range: 0.0 - 0.4 x10E3/uL 0.3 Basophils Abs Latest Ref Range: 0.0 - 0.2 x10E3/uL 0.0 Charles Mix # Latest Ref Range: 0.1 - 0.9 x10E3/uL 0.4 Monocytes % Latest Ref Range: Not Estab. % 7 ESR Latest Ref Range: 0 - 32 mm/hr 2 Antinuclear Antibodies,IFA Unknown Positive (Abnormal) dsDNA Antibody Latest Ref Range: 0 - 9 IU/mL <1 SPECKLED PATTERN ([facility]) Unknown 1:160 (H) Immunoglobulin A QN Serum Latest Ref Range: 87 - 352 mg/dL 95 PALEONTOLOGICAL HELPER Antibodies Latest Ref Range: 0.0 - 0.9 AI <0.2 SJOGREN'S ANTIBODY (SS-A) ([facility]) Latest Ref Range: 0.0 - 0.9 AI <0.2 SJOGREN'S ANTIBODY (SS-B) ([facility]) Latest Ref Range: 0.0 - 0.9 AI <0.2 Abbasi Antibody Latest Ref Range: 0.0 - 0.9 AI <0.2 Tissue Transglutaminase, AB IgA Latest Ref Range: 0 - 3 U/mL <2 Tissue Transglutaminase AB,IgG Latest Ref Range: 0 - 5 U/mL <2 Complement C3, Serum Latest Ref Range: 82 - 167 mg/dL 118 Complement C4, Serum Latest Ref Range: 14 - 44 mg/dL 29 Specific Mize Latest Ref Range: 1.005 - 1.030 1.006 Color UA Latest Ref Range: Yellow Yellow Appearance Latest Ref Range: Clear Clear pH Urine Latest Ref Range: 5.0 - 7.5 6.5 Protein UA Latest Ref Range: Negative/Trace Negative Occult Blood UA Latest Ref Range: Negative Negative LEUKOCYTE ESTERASE ([facility]) Latest Ref Range: Negative Negative Nitrite UA Latest Ref Range: Negative Negative Glucose UA Latest Ref Range: Negative Negative KETONE Latest Ref Range: Negative Negative Bilirubin UA Latest Ref Range: Negative Negative Urobilinogen Semi Quantitative Latest Ref Range: 0.2 - 1.0 mg/dL 0.2 Microscopic Exam Unknown See below: WBC UA Latest Ref Range: 0 - 5 /hpf 0-5 RBC UA Latest Ref Range: 0 - 2 /hpf None seen Epithelial Cells (non renal) Latest Ref Range: 0 - 10 /hpf 0-10 Bacteria UA Latest Ref Range: None seen/Few None seen Urinalysis Reflex Unknown SEE COMMENT NOTE Unknown SEE COMMENT Anti-Histone AB Latest Ref Range: 0.0 - 0.9 Units 0.4 IGG SUBCLASS 4 PRE ([facility]) Latest Ref Range: 2 - 96 mg/dL 45 Diagnostics : Radiographs 07/29/17 Hips, knees and pelvis IMPRESSION: 1. Right hip: Normal. 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 2. Left hip: Normal. 3. Right knee: Normal. 4. Left knee: Normal. Assessment: Pina Reynaga is a 47 y.o. female with 1. Fibromyalgia 2. Myalgia 3. Other muscle spasm 4. Other specified abnormal immunological findings in serum 5. Left knee pain, unspecified chronicity Overall she is continuing to have a number of physical symptoms - she is seeing a chiropractor who is doing some physical therapy type exercises with her - I advised her to get an HEP from him, and to do those - We have discussed the possibility of a trial of Hydroxychloroquine (Plaquenil) in the event that there is a component of auto immunity to her sx - we agreed that one change at a time is appropriate and she is going to go with the chiropractic/PT approach -may consider other meds in the future, but she has had a number of reactions/SE to medications - Plan: Continue current regimen of Vit D observation We ordered labs and/or imaging as listed below or in the standing orders. Return to clinic in 6 month(s) . The following were ordered during this evaluation: No orders of the defined types were placed in this encounter. documented in this encounter Plan of Treatment Upcoming Encounters Date Type Department Care Team (Late st Contact Info) Description 10/19/2024 3:40 PM CLOUD ENGAGEMENT PARTNER Clinical Support [facility] [address] [place] [phone] 10/26/2024 3:20 PM CLOUD ENGAGEMENT PARTNER Clinical Support [facility] [address] [place] [phone] 11/02/2024 3:40 PM CLOUD ENGAGEMENT PARTNER Clinical Support [facility] [address] [place] [phone] 11/09/2024 3:20 PM CLOUD ENGAGEMENT PARTNER Clinical Support [facility] [address] [place] [phone] documented as of this encounter Visit Diagnoses Diagnosis Fibromyalgia- Primary Mylagia and myositis, unspecified Myalgia Mylagia and myositis, unspecified Other muscle spasm Other specified abnormal immunological findings in serum Left knee pain, unspecified chronicity documented in this encounter Care Teams Ob Tech Relationship Specialty Start Date End Date Jonathan Amado MD [address] [place] [phone] PCP - General Family Medicine 06/24/13 09/14/23 Jonathan Amado MD [address] [place] [phone] 06/24/13 documented as of this encounter
--- OUTSIDE RECORDS SUMMARY | 2024-10-17 03:08 | XMS_ITS | Encounter Summary ---
Author Organization [facility] Address [address] [facility] [address] Care Team Providers Care [employer] Machine Operator Name Role Phone Jonathan Amado MD Primary Care Provider [phone] Jonathan Amado MD Unavailable [phone] Reason for Visit * Reason Comments Immunotherapy Encounter Details Date Type Department Care Team (Latest Contact Info) Description 04/21/2018 10:00 AM CDT Clinical Support [facility] Otolaryngology [address] [address] Allergic rhinitis due to pollen, unspecified seasonality [...] * Patient Instructions* Ai Lomeli RN - 04/21/2018 1:41 PM CDT Please call [facility] allergy line [phone] before noon to report whether or not you had a reaction, And if you did, the size and how long it lasted. documented in this encounter Progress Notes * Ai Lomeli, GYPSY - 04/21/2018 1:29 PM CDT Serum calculations have been reviewed by Dr. Arellano. Serum compounded into 7 individual dose vialsand mailed to patient. Date Tree Mix [place] Mix Mold Mix Phenol Normal Saline SIGNATURE AND LOCATION 04/07/2018 0.25 0.25 0.12 0.13 Left upper arm SQ-sb 04/0904/14/2018 0.25 0.25 0.25 Right upper arm SQ on 04/21 -am 04/28/2018 0.25 0.25 0.25 05/12/2018 0.25 0.25 0.25 05/26/2018 0.25 0.25 0.25 06/09/2018 0.25 0.25 0.25 06/23/2018 0.25 0.25 0.25 Department of Otolaryngology Head and Neck Surgery Patient Name: Pina Reynaga : 1970 Date: 04/21/2018 1. Did you bring your Epi-pen with you to clinic today? Yes 2. How are you feeling today? OK, perhaps ill, was added to MD schedule today 3. How have you been feeling since [...] local reactions from your last shot? Yes: shows picture of area of redness about 2 inches, raised; states lasted about 1 day. 8. Are you on any beta margy antihypertensives? No 9. Have you taken any antihistamines since your last visit? Yes: nightly 10. Do you have a temperature >101? no Injection time: 1330 Site: Right Upper Arm SQ Vial Contents diluted with 0.5ml Normal Saline no No injection given due to Reaction: No Action taken: provided Zyrtec po, pt takes just before injection. Benedryl cream applied at site. Encouraged call with reaction or no reaction. 1400 Time ambulatory from clinic in no distress, color pink, respiratory unlabored, steady on feet,voices no complaints -- after MD appointment. documented in this encounter Plan of Treatment Upcoming Encounters Date Type Department Care Team (Late st Contact Info) Description 10/19/2024 3:40 PM DRIVER LICENSE TECHNICIAN Clinical Support [facility] [address] [place] [phone] 10/26/2024 3:20 PM DRIVER LICENSE TECHNICIAN Clinical Support [facility] [address] [place] [phone] 11/02/2024 3:40 PM DRIVER LICENSE TECHNICIAN Clinical Support [facility] [address] [place] [phone] 11/09/2024 3:20 PM DRIVER LICENSE TECHNICIAN Clinical Support [facility] [address] [place] [phone] documented as of this encounter Visit Diagnoses Diagnosis Allergic rhinitis due to pollen, unspecified seasonality- Primary documented in this encounter Care Teams [employer] Machine Operator Relationship Specialty Start Date End Date Jonathan Amado MD [address] [place] [phone] PCP - General Family Medicine 06/24/13 09/14/23 Jonathan Amado MD [address] [place] [phone] 06/24/13 documented as of this encounter
--- OUTSIDE RECORDS SUMMARY | 2024-10-17 03:08 | XMS_ITS | Encounter Summary ---
Author Organization [facility] Address [address] [place], [place] [address]Al[place] [address] Care Team Providers Care Chemical Equipment Sales Engineer Name Role Phone Jonathan Amado MD Primary Care Provider [phone] Jonathan Amado MD Unavailable [phone] Reason for Visit * Reason Comments Fibromyalgia Encounter Details Date Type Department Care Team (Late st Contact Info) Description 09/08/2013 11:40 AM OLEOMARGARINE MAKER Office Visit [facility] - Rheumatology [address] [place] [phone] Ryanne Holliday MD [address] [place] [phone] Positive FABIAN (antinuclear antibody) (Primary Dx); Dry mouth; Fibromyalgia Social History Tobacco Use Types Packs/Day Years Used Date Smoking Tobacco: Never Alcohol Use Standard Drinks/Week Comments Yes 0 (1 standard drink = 0.6 oz pur e alcohol) Sex and Gender Information Value Date Recorded Sex Assigned at Not on file Gender Identity Not on file Sexual Orientation Not on file documented as of this encounter Last Filed Vital Signs Vital Sign Reading Time Taken Comments Blood Pressure 118/70 09/08/2013 11:51 AM OLEOMARGARINE MAKER Pulse 68 09/08/2013 11:51 AM OLEOMARGARINE MAKER Temperature - - Respiratory Rate - - Oxygen Saturation - - Inhaled Oxygen Concentration - - Weight 63.5 kg (140 lb) 09/08/2013 11:51 AM OLEOMARGARINE MAKER Height 162.6 cm (5' 4 ) 09/08/2013 11:51 AM OLEOMARGARINE MAKER Body Mass Index 24.03 09/08/2013 11:51 AM OLEOMARGARINE MAKER documented in this encounter Patient Instructions * Patient Instructions* Ryanne Holliday MD - 09/08/2013 1:10 PM OLEOMARGARINE MAKER recommend trying hydroxychloroquine as prescribed previously. Returned after 2 months of treatment to assess response check SSA, SSB, ESR, and CRP MARGARINE MAKER documented in this encounter Progress Notes * Clara Hurtado RN - 09/16/2013 1:41 PM CSTQuick Note: Called patient but had to leave message on voicemail informing of lab results/instructions as per Dr. Holliday. Instructed to call back if questions. MARGARINE MAKER * Ryanne Holliday MD - 09/16/2013 12:40 PM CSTQuick Note: pls call pt-tests for Sjogren's were neg. Still try the hydroxychloroquine. MARGARINE MAKER * Ryanne Holliday MD - 09/08/2013 11:55 AM CST Subjective: LLOYD per OB-Flame Annealing Machine Setter 6 months ago Stiffness lasts 30 History She's here for a follow-up for back pain, ankles and R arm. Last visit she was prescribed Plaquenil, but never filled it due to fever of 100.0, 4 months ago, and fever is recurrent and she currently has nausea. Seen is follow up from 2 months ago. She has pos FABIAN 1:160 and mainly myalgias, arthralgias, neck and back pain, fatigue. [place]algia [place] [address] [place]. Specific abs neg now. Trialof lexapro not begun because pt was afraid of getting addicted; she read it was hard to get off of it. She doesn't recall the effect of Cymbalta in the past. Last visit I suggested hydroxychloroquine. She did not start because she states she was too sick dealing with sinusitis. She has been diagnosed with fungal and pseudomonal sinusitis and recently MRSAwas cultured also. She has been using a compounded medication containing tobramyci,n steroids and antifungal agent. This was causing nausea. She also describes very diffuse body aches. She is now off the anti microbial. Yesterday she had nausea, vomiting, diarrhea and temperature elevation. She sawDr. Amado her PCP and was treated symptomatically with Imodium, Zofran, ibuprofen or Tylenol plus miconazole troches for possible thrush. She is going to see Dr. Huong Duncan at [facility] for possible immunodeficiency. 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 She has dry mouth but no significant dry eyes and lately. She has had a negative ds DNA, PRORATION CLERK and Abbasi but I can't find any SSA or SSB antibodies. She gets occ oral ulcers. Previously she had planned meniscal surgery for her R knee next month, but is maybe postponed due to the MRSA. 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 Her adult children live at home. Current Outpatient Prescriptions Medication Status Sig Dispense Refill ??? Cetirizine-Pseudoephedrine (ZYRTEC-D PO) Active Take by mouth 2 times daily. ??? Linaclotide (LINZESS PO) Active Take by mouth as needed. ??? clotrimazole (MYCELEX) 10 MG lozenge Active Take 10 mg by mouth 5 times daily while awake. ??? Ondansetron HCl (ZOFRAN PO) Active Take by mouth as needed. ??? rizatriptan (MAXALT) 5 MG tablet Active Take 5 mg by mouth once as needed. ??? ergocalciferol (DRISDOL) 28543 UNITS CAPS capsule Active Take 50,000 Units by mouth every 30 days. ??? ibuprofen (ADVIL) 200 MG capsule Active Take 200 mg by mouth 4 times daily as needed. ??? B Complex-C (SUPER B COMPLEX PO) Active Take by mouth. ??? Cetirizine-Pseudoephedrine (ZYRTEC-D PO) Active Take 1 Tab by mouth 2 times daily. ??? fluticasone propionate (FLONASE) 50 MCG/ACT nasal spray Active [place] 2 Sprays into each nostrilonce daily. ??? predniSONE (DELTASONE) 10 MG tablet Active Take by mouth. 4 tabs for 3 days, then 3 tabs for 3 days, then 2 tabs for 3 days, then one tab for 3 days then stop ??? clindamycin (CLEOCIN) 300 MG capsule Active Take 300 mg by mouth every 8 hours. ??? hydroxychloroquine (PLAQUENIL) 200 MG tablet Active Take 1 Tab by mouth 2 times daily. 60 Tab 3 Review of Systems Fever: + Rash: - Raynaud's: - Nodules: - Med Side Effects: - Hair Loss: - Diff. swallowing: + Dry Eyes: - Dry Mouth: + Takes Meds: + Depression: - Swelling: - Smoke: - ETOH: - Sx: - Chest Pain: - Dyspnea: - GI Sx: - Oral Ulcers: + Neuro Sxs: - Elaborate on positives: Mouth sores one week ago, resolved yesterday RHEUM VITALS 06/24/2013 09/08/2013 BP 108/68 118/70 Pulse 72 68 Wgt 144 lbs 140 lbs RHEUM KIEL 06/24/2013 09/08/2013 MHAQ 3 4.3 Pain 6 7 Global 6 8 Rapid 3 15 19.3 Sleep 10 10 GI 8 10 Fatigue 10 10 Health Assessment Questionnaire MHAQ: 4.3 Pain: 7 Global: 8 Rapid 3: 19.3 Sleep: 10 GI: 10 Fatigue: 10 Objective BP 118/70 Pulse 68 Ht 1.626 m (5' 4 ) Wt 63.504 kg (140 lb) BMI 24.03 kg/m2 General: Normal Skin: No rashes or lesions Mouth: Normal Lungs: Clear Abdomen: Soft, non tender, no masses or organomegaly Neuro: Alert and oriented. No motor weakness. Joint Review Right Left Shoulder Normal Normal Elbow Normal Normal Wrist Normal Normal MCP Normal Normal PIP Normal Normal DIP Normal Normal CMC Normal Normal Hip Normal Normal Knee Normal Normal Ankle Normal Normal Foot Normal Normal Swollen Joints: 0 Tender Joints: 0 Spine Tender Cspine Trigger/ tender Points; Tight Muscle Groups: Yes Imaging: Assessment Positive FABIAN dry mouth- it looks like we have not checked for Sjogren's. [facility]. Fungal and bacterial sinusitis - going through treatment fibromyalgia-she is afraid to try lexapro Plan recommend trying hydroxychloroquine as prescribed previously. Returned after 2 months of treatment to assess response check SSA, SSB, ESR, and CRP MARGARINE MAKER documented in this encounter Plan of Treatment Upcoming Encounters Date Type Department Care Team (Late st Contact Info) Description 10/19/2024 3:40 PM OLEOMARGARINE MAKER Clinical Support [facility] - ENT [address] [place] [phone] 10/26/2024 3:20 PM OLEOMARGARINE MAKER Clinical Support [facility] - ENT [address] [place] [phone] 11/02/2024 3:40 PM OLEOMARGARINE MAKER Clinical Support [facility] - ENT [address] [place] [phone] 11/09/2024 3:20 PM OLEOMARGARINE MAKER Clinical Support [facility] - ENT [address] [place] [phone] documented as of this encounter Procedures Procedure Name Priority Date/Time Associated Diagnosis Comments SS-A/SS-B (SJOGREN'S) ANTIBODY PANEL Routine 09/15/2013 4:01 PM OLEOMARGARINE MAKER Dry mouth ERYTHROCYTE SEDIMENTATION RATE Routine 09/15/2013 4:01 PM OLEOMARGARINE MAKER Dry mouth documented in this encounter Results * SED RATE WESTERGREN (09/15/2013 4:01 PM OLEOMARGARINE MAKER) Erythrocyte Sedimentation Rate Westergren 2 0 - 32 mm/hr [facility] ACCOUNT BILL Blood specimen (specimen) BLOOD SPECIMEN / Unknown 09/15/2013 4:01 PM OLEOMARGARINE MAKER 09/15/2013 6:29 PM OLEOMARGARINE MAKER Narrative Resulting Agency Comment [facility] [address] ??[facility] [id number] Ryanne Holliday MD LAB - HEMATOLOGY ORD ERABLES [facility] ACCOUNT BILL * SJOGRENS ANTIBODY PANEL (09/15/2013 4:01 PM OLEOMARGARINE MAKER) Sjogren's Antibodies (SSA) <0.2 0.0 - 0.9 AI [facility] ACCOUNT BILL Sjogren's Antibodies (SSB) <0.2 0.0 - 0.9 AI [facility] ACCOUNT BILL Blood specimen (specimen) BLOOD SPECIMEN / Unknown 09/15/2013 4:01 PM OLEOMARGARINE MAKER 09/15/2013 6:29 PM OLEOMARGARINE MAKER Narrative Resulting Agency Comment [facility] [address] ??[facility] [phone] Ryanne Holliday MD LAB - CHEMISTRY LISA THAYER [facility] Organization Address City/State/ZIP Co de Phone Number [facility] ACCOUNT BILL documented in this encounter Visit Diagnoses Diagnosis Positive FABIAN (antinuclear antibody)- Primary Other and unspecified nonspecific immunological findings Dry mouth Disturbance of salivary secretion Fibromyalgia Mylagia and myositis, unspecified documented in this encounter Care Teams Chemical Equipment Sales Engineer Relationship Specialty Start Date End Date Jonathan Amado MD [address] [place] [phone] PCP - General Family Medicine 06/24/13 09/14/23 Jonathan Amado MD [facility] [place] [phone] 06/24/13 documented as of this encounter
--- OUTSIDE RECORDS SUMMARY | 2024-10-17 03:08 | XMS_ITS | Encounter Summary ---
Author Organization [facility] Address [address] [place] [address] Care Team Providers Care Front Desk Auxiliary Name Role Phone Jonathan Amado MD Primary Care Provider [phone] Jonathan Amado MD Unavailable [phone] Reason for Visit * Reason Comments Immunotherapy Encounter Details Date Type Department Care Team (Latest Contact Info) Description 09/29/2018 3:30 PM TRAY DRIER Clinical Support [facility] Otolaryngology [address] [address] Allergic rhinitis due to pollen, unspecified seasonality [...] Progress Notes * Ai Lomeli, RN - 09/29/2018 3:24 PM CST Serum calculations have been reviewed by Dr. Arellano. Serum compounded into 7 individual dose vialsand mailed to patient. Date Tree Mix [place] Mix Mold Mix Phenol Normal Saline SIGNATURE AND LOCATION 07/14/2018 0.12 0.12 0.12 0.40 Right upper arm SQ-sb 07/21/2018 0.25 0.25 0.25 Right upper arm SQ on 16 -am 08/04/2018 0.25 0.25 0.25 Right upper arm SQ on 08/11 -am 08/18/2018 0.25 0.25 0.25 Right upper arm SQ-sb 08/2509/01/2018 0.25 0.25 0.25 Right upper arm SQ-ld 09/0809/15/2018 0.25 0.25 0.25 Right upper arm SQ on 09/29 -am 09/29/2018 0.25 0.25 0.25 Department of Otolaryngology Head and Neck Surgery Patient Name: Pina Reynaga : 1970 Date: 09/29/2018 1. Did you bring your Epi-pen with [...] temperature >101? no Injection time: 1525 Site: Right Upper Arm SQ Vial Contents diluted with 0.5ml Normal Saline no No injection given due to Reaction: Yes Local redness 3 inches at injection site after 40 minutes, states site itches. Action taken: benedryl cream applied. Suggested pt take extra dose oral antihistamine this evening. Dr. Brice sees pt for c/o face pressure, right > left. See MD encounter. MD prescribes 8d steroid taper, see MD again in 3 to 4 weeks, talk with HEIDY nurse with update in 1 to 2 weeks. Instructed pt to continue abx and budesonide in irrigations. 1630 Time ambulatory from clinic in no distress, color pink, respiratory unlabored, steady on feet,voices no complaints. DRIER documented in this encounter Plan of Treatment Upcoming Encounters Date Type Department Care Team (Late st Contact Info) Description 10/19/2024 3:40 PM TRAY DRIER Clinical Support [facility] - ENT [address] [place] [phone] 10/26/2024 3:20 PM TRAY DRIER Clinical Support [facility] - ENT [address] [place] [phone] 11/02/2024 3:40 PM TRAY DRIER Clinical Support [facility] - ENT [address] [place] [phone] 11/09/2024 3:20 PM TRAY DRIER Clinical Support [facility] - ENT [address] [place] [phone] documented as of this encounter Visit Diagnoses Diagnosis Allergic rhinitis due to pollen, unspecified seasonality- Primary documented in this encounter Care Teams Front Desk Auxiliary Relationship Specialty Start Date End Date Jonathan Amado MD [facility] [place] [phone] PCP - General Family Medicine 06/24/13 09/14/23 Jonathan Amado MD [address] [place] [phone] 06/24/13 documented as of this encounter
--- OUTSIDE RECORDS SUMMARY | 2024-10-17 03:08 | XMS_ITS | Encounter Summary ---
Author Organization [facility] Address [address] [place], [place] [address] [address] Care Team Providers Care Leather Seasoner Name Role Phone Jonathan Amado MD Primary Care Provider [phone] Jonathan Amado MD Unavailable [phone] Reason for Visit * Reason Comments Follow-up Fibromyalgia Encounter Details Date Type Department Care Team (Late st Contact Info) Description 06/24/2013 3:40 PM CDT Office Visit [facility] - Rheumatology [address] [place] [phone] Ryanne Holliday MD [address] [place], [place] [phone] Positive FABIAN (antinuclear antibody) (Primary Dx); Fibromyalgia Social History Tobacco Use Types Packs/Day [...] Sign Reading Time Taken Comments Blood Pressure 108/68 06/24/2013 3:17 PM CDT Pulse 72 06/24/2013 3:17 PM CDT Temperature - - Respiratory Rate - - Oxygen Saturation - - Inhaled Oxygen Concentration - - Weight 65.3 kg (144 lb) 06/24/2013 3:17 PM CDT Height 162.6 cm (5' 4 ) 06/24/2013 3:17 PM CDT Body Mass Index 24.72 06/24/2013 3:17 PM CDT documented in this encounter Patient Instructions * Patient Instructions* Ryanne Holliday MD - 06/24/2013 4:30 PM CDT Hydroxychloroquine 200 mg BID--she will take Rx and think about it. F/u 2 months documented in this encounter Progress Notes * Ryanne Holliday MD - 06/24/2013 3:26 PM CDT Subjective: Stiffness in both hips right greater than left and low back. Lasts 15 History States doing about the same. She is having muscle aches and pains especially her arms. Also muscle weakness and saw neurologist and may do a muscle biopsy. Plans to have right knee surgery 10/01 to repair torn meniscus. Reports ongoing sinus trouble with fungus. She is currently on Prednisone taper and Clindamycin perENT Dr. 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 Edwards. Specific abs neg now. Trial of lexapro not begun because pt was afraid of getting addicted; she read it was hard to get off of it. She has ulnar N compression with ongoing pain R elbow, some numbness R 4, 5th fingers; Dr. Madera,neuro, recommends surgery because the NCVs showed some muscle weakness. Pt told Dr. Madera she felt weak going up stairs. Muscle tests were done, most are back and are normal; muscle bx being considered. She has known cervical disc disease, on MRI 04/23; worst at C5-6. She denies photosensitivity. She gets some white and blue color to fingertips in cold. Occ oral ulcers. R knee has medial meniscus tear and surgery scheduled for 10/01, when she's off work, Dr. Vasquez. He plans to repair it if possible. She is currently on pred 40 mg (started 50 mg x 3, with taper q 3 days) for sinusitis. She may feela little better on prednisone, but it's not marked. Accompanied by . 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 Was off in summer, but still busy with grandmother and father in law's house. Children 21 and 28, living at home. Review of Systems Fever: + Rash: - Raynaud's: - Hair Loss: + Dry Eyes: - Dry Mouth: + Oral Ulcers: + SOB/Cough: + Chest Pain: - GI Sx: + Sx: - Swelling: + Depression: - Neuro Sxs: - Med Side Effects: - Smoke: - ETOH: + Elaborate on positives: Fever with sinus infection Dry mouth due to sinus trouble Intermittent oral sores Dry cough and reports had cxr and was told has hyperinflated lungs Acid reflux Intermittent edema calves down Very rare alcohol RHEUM VITALS 06/24/2013 BP 108/68 Pulse 72 Wgt 144 lbs Health Assessment Questionnaire MHAQ: 3 Pain: 6 Global: 6 Rapid 3: 15 Sleep: 10 GI: 8 Fatigue: 10 Objective BP 108/68 Pulse 72 Ht 1.626 m (5' 4 ) Wt 65.318 kg (144 lb) BMI 24.72 kg/m2 General: Normal, serious affect Skin: No rashes or lesions Mouth: Normal Lungs: Clear Abdomen: Soft, non tender, no masses or organomegaly Neuro: Alert and oriented. No motor weakness. DTRs normal and equal. Joint Review Right Left Shoulder Normal Normal Elbow Normal Normal Wrist Normal Normal MCP Normal Normal PIP Normal Normal DIP Normal Normal CMC Normal Normal Hip Normal Normal Knee t medial Normal Ankle Normal Normal Foot Normal Normal Swollen Joints: 0 Tender Joints: 1 Spine Tender neck Trigger/ tender Points; Tight Muscle Groups: Yes, most locations Imaging: Assessment Positive FABIAN-question of connective tissue disease, unspecified. Features mainly of FM. Discussed trial of hydroxychloroquine. May help energy and pain, and worth a try. Fibromyalgia-she's afraid of SSRI Ulnar nerve compression, R arm Cervical degenerative disc disease Sinusitis-poss fungal Plan Hydroxychloroquine 200 mg BID--she will take Rx and think about it. F/u 2 months documented in this encounter Plan of Treatment Upcoming Encounters Date Type Department Care Team (Late st Contact Info) Description 10/19/2024 3:40 PM SUGAR CONTROLLER Clinical Support [facility] - ENT [address] [place] [phone] 10/26/2024 3:20 PM SUGAR CONTROLLER [facility] [address] [place] [phone] 11/02/2024 3:40 PM SUGAR CONTROLLER Clinical Support [facility] - ENT [address] [place] [phone] 11/09/2024 3:20 PM SUGAR CONTROLLER Clinical Support [facility] - ENT [address] [place] [phone] documented as of this encounter Visit Diagnoses Diagnosis Positive FABIAN (antinuclear antibody)- Primary Other and unspecified nonspecific immunological findings Fibromyalgia Mylagia and myositis, unspecified documented in this encounter Care Teams Leather Seasoner Relationship Specialty Start Date End Date Jonathan Amado MD [address] [place] [phone] PCP - General Family Medicine 06/24/13 09/14/23 Jonathan Amado MD [address] [place] [phone] 06/24/13 documented as of this encounter
--- OUTSIDE RECORDS SUMMARY | 2024-10-17 03:08 | XMS_ITS | Encounter Summary ---
Author Organization [facility] Address [address] [facility] [place] [address] Care Team Providers Care Salary And Wage Administrator Name Role Phone Jonathan Amado MD Primary Care Provider [phone] Jonathan Amado MD Unavailable Reason for Visit * Reason Onset Date Comments Immunotherapy 04/23/2018 local reaction Encounter Details Date Type Department Care Team (Late st Contact Info) Description 04/23/2018 Telephone [facility] Otolaryngology [address] [address] Ai Lomeli, RN Immunotherapy (local reaction) Social History Tobacco Use Types Packs/Day Years [...] Miscellaneous Notes * Telephone Encounter - Ai oLmeli, RN - 04/23/2018 2:12 PM CDT Pt calls, reports local reaction again after SCIT injection 04/21, pretty much the same as previous injection 2 weeks before, about 3 inches, red. Pt usually takes oral antihistamine in evenings. Case discussed with Dr. Arellano and call returned to patient at 1415: Will dilute & split next SCIT inj in 2 weeks. Requested pt take oral antihistamine 30 to 60 min before injection, and continue with usual dose that evening, and call office with reaction or no reaction later that week. Patient acknowledges understanding. documented in this encounter Plan of Treatment Upcoming Encounters Date Type Department Care Team (Late st Contact Info) Description 10/19/2024 3:40 PM SENIOR SCRUM MASTER Clinical Support [facility] - ENT [address] [place] [phone] 10/26/2024 3:20 PM SENIOR SCRUM MASTER Clinical Support [facility] - ENT [address] [place] [phone] 11/02/2024 3:40 PM SENIOR SCRUM MASTER Clinical Support [facility] - ENT [address] [place] [phone] 11/09/2024 3:20 PM SENIOR SCRUM MASTER Clinical Support [facility] - ENT [address] [place] [phone] documented as of this encounter Visit Diagnoses Not on filedocumented in this encounter Care Teams Salary And Wage Administrator Relationship Specialty Start Date End Date Jonathan Amado MD [address] [place] [phone] PCP - General Family Medicine 06/24/13 09/14/23 Jonathan Amado MD [address] [place] [phone] 06/24/13 documented as of this encounter
--- OUTSIDE RECORDS SUMMARY | 2024-10-17 03:08 | XMS_ITS | Encounter Summary ---
Author Organization [facility] Address [address] [place] [address] Care Team Providers Care Supervisor Putty And Caluking Name Role Phone Jonathan Amado MD Primary Care Provider [phone]- [phone] Jonathan Amado MD Unavailable [phone] Reason for Visit * Reason Comments Immunotherapy Encounter Details Date Type Department Care Team (Latest Contact Info) Description 07/28/2018 3:30 PM CDT Clinical Support [facility] Otolaryngology [address] [address] Allergic rhinitis due to pollen, unspecified seasonality [...] * Patient Instructions* Ai Lomeli RN - 08/06/2018 10:19 AM CDT Please report any local reaction greater than half dollar size wheal or redness to office. For severe symptoms or anaphylaxis, such as angioedema, stridor, wheezing, use Epi pen (and inhaler if hx asthma) as directed, call 911 and go to closest Emergency Department. Please inform office at [phone] (HEIDY office nurse line) after you have been treated. documented in this encounter Progress Notes * Ai Lomeli RN - 07/28/2018 3:32 PM CDT Serum calculations have been reviewed by Dr. Arellano. Serum compounded into 7 individual dose vialsand mailed to patient. Date Tree Mix [place] Mix Mold Mix Phenol Normal Saline SIGNATURE AND LOCATION 07/14/2018 0.12 0.12 0.12 0.40 Right upper arm SQ-sb 07/21/2018 0.25 0.25 0.25 Right upper arm SQ on 07/28 -am 07/25/2018 0.25 0.25 0.25 08/18/2018 0.25 0.25 0.25 09/01/2018 0.25 0.25 0.25 09/15/2018 0.25 0.25 0.25 09/29/2018 0.25 0.25 0.25 Department of Otolaryngology Head and Neck Surgery Patient Name: Pina Reynaga : 1970 Date: 07/28/2018 1. Did you bring your Epi-pen with you to clinic today? Yes 2. How are you feeling today? Not too bad 3. How have you been feeling since your last shot? All right sinus - [place]ura. Talks about skeltal muscle cramping at quadriceps, lateral lower legs, gluteus dafne, right cheek when yawning or eating. Has discussed with PCP and neurologist, who suggests Trileptal. A. What symptoms do you have? sneezing B. When do you have these symptoms? varies C. Are your symptoms mild, moderate or severe? Pretty bad 4. How has your asthma been? n/a [...] st Contact Info) Description 10/19/2024 3:40 PM AUTO BENCH MECHANIC Clinical Support [facility] [address] [place] [phone] 10/26/2024 3:20 PM AUTO BENCH MECHANIC Clinical Support [facility] [address] [place] [phone] 11/02/2024 3:40 PM AUTO BENCH MECHANIC Clinical Support [facility] [address] [place] [phone] 11/09/2024 3:20 PM AUTO BENCH MECHANIC Clinical Support [facility] - [facility]NT [address] [place] [phone] documented as of this encounter Visit Diagnoses Diagnosis Allergic rhinitis due to pollen, unspecified seasonality- Primary documented in this encounter Care Teams Supervisor Putty And Caluking Relationship Specialty Start Date End Date Jonathan Amado MD [address] [place] [phone] PCP - General Family Medicine 06/24/13 09/14/23 Jonathan Amado MD [address] [place] [phone] 06/24/13 documented as of this encounter
--- OUTSIDE RECORDS SUMMARY | 2024-10-17 03:08 | XMS_ITS | Encounter Summary ---
Author Organization [facility] Address [address] [facility] [place] [address] Care Team Providers Care Perioperative Tech Name Role Phone Jonathan Amado MD Primary Care Provider [phone]- [phone] Jonathan Amado MD Unavailable [phone] Reason for Visit * Reason Comments Immunotherapy Encounter Details Date Type Department Care Team (Latest Contact Info) Description 03/10/2018 10:30 AM CDT Clinical Support [facility] Otolaryngology [address] [address] Non-seasonal allergic rhinitis due to pollen Social History [...] * Patient Instructions* Ryanne Herring RN - 03/10/2018 2:29 PM CDT Please report any local reaction greater than half dollar size wheal or redness to office. For severe symptoms or anaphylaxis, such as angioedema, stridor, wheezing, [facility] Please inform office at [phone] after you have been treated. Pt instructed to take Epi Pen to each office visit for allergy injections. Pt given verbal and written instruction for self administration of Epi Pen should an anaphylactic reaction occur. Pt verbalizes understanding. documented in this encounter Progress Notes * Ryanne Herring, RN - 03/10/2018 10:00 AM CDT Serum calculations have been reviewed by Dr. Arellano. Serum compounded into 7individual dose vials and kept at . Tree Mix Magnet Mix Mold Mix Phenol Normal Saline SIGNATURE [...] SQ on 03/10-ld 03/03/2018 0.25 0.25 0.25 Department of Otolaryngology Head and Neck Surgery Patient Name: Pina Reynaga : 1970 Date: 03/10/2018 1. Did you bring your Epi-pen with [...] have a temperature >101? no Injection time: 1003 Site: right Upper Arm SQ Vial Contents diluted with 0.5ml Normal Saline no No injection given due to Reaction: No Action taken: Reviewed treatment for local reaction including call office for reaction > 2 inches. Reviewed use epi-pen for signs of anaphylaxis, and call 911. Pt acknowledges understanding. 1023 Time ambulatory from clinic in no distress, color pink, respiratory unlabored, steady on feet,voices no complaints. documented in this encounter Plan of Treatment Upcoming Encounters Date Type Department Care Team (Late st Contact Info) Description 10/19/2024 3:40 PM MILL PLATFORM SUPERVISOR Clinical Support [facility] [address] [place] [phone] 10/26/2024 3:20 PM MILL PLATFORM SUPERVISOR Clinical Support [facility] [address] [place] [phone] 11/02/2024 3:40 PM MILL PLATFORM SUPERVISOR Clinical Support [facility] [address] [place] [phone] 11/09/2024 3:20 PM MILL PLATFORM SUPERVISOR Clinical Support [facility]NT [address] [place] [phone] documented as of this encounter Visit Diagnoses Diagnosis Non-seasonal allergic rhinitis due to pollen- Primary documented in this encounter Care Teams Perioperative Tech Relationship Specialty Start Date End Date Jonathan Amado MD [address] [place] [phone] PCP - General Family Medicine 06/24/13 09/14/23 Jonathan Amado MD [address] [place] [phone] 06/24/13 documented as of this encounter
--- OUTSIDE RECORDS SUMMARY | 2024-10-17 03:08 | XMS_ITS | Encounter Summary ---
Author Organization [facility] Address [address] [facility] [place] [address] Care Team Providers Care Derrick Engineer Name Role Phone Jonathan Amado MD Primary Care Provider [phone]- [phone] Jonathan Amado MD Unavailable [phone] Reason for Visit * Reason Comments Immunotherapy Encounter Details Date Type Department Care Team (Latest Contact Info) Description 12/08/2018 3:30 PM POLICY ANALYST Clinical Support [facility] Otolaryngology [address] [address] Allergic rhinitis due to pollen, unspecified seasonality [...] Progress Notes * Ai Lomeli RN - 12/08/2018 4:08 PM CST Serum calculations have been reviewed by Dr. Arellano. Serum compounded into 7 individual dose vialsand kept at [facility] for injections. Date Tree Mix [place] Mix Mold Mix Phenol Normal Saline SIGNATURE AND LOCATION 10/21/2018 0.25 0.12 0.12 0.25 Right upper arm SQ on 10/27 -am 10/28/2018 0.25 0.25 0.25 Right upper arm SQ 11/11 sb 11/11/2018 0.25 0.25 0.25 Right upper arm SQ-sb 11/2411/24/2018 0.25 0.25 0.25 Right upper arm SQ on 12/08 -am 12/09/2018 0.25 0.25 0.25 12/23/2018 0.25 0.25 0.25 01/06/2019 0.25 0.25 0.25 Department of Otolaryngology Head and Neck Surgery Patient Name: Pina Reynaga : 1970 Date: 12/08/2018 1. Did you bring your Epi-pen with [...] respiratory unlabored, steady on feet,voices no complaints. CY ANALYST documented in this encounter Plan of Treatment Upcoming Encounters Date Type Department Care Team (Late st Contact Info) Description 10/19/2024 3:40 PM POLICY ANALYST Clinical Support [facility] [address] [place] [phone] 10/26/2024 3:20 PM POLICY ANALYST Clinical Support [facility] [address] [place] [phone] 11/02/2024 3:40 PM POLICY ANALYST Clinical Support [facility] [address] [place] [phone] 11/09/2024 3:20 PM POLICY ANALYST Clinical Support [facility] [address] [place] [address] documented as of this encounter Visit Diagnoses Diagnosis Allergic rhinitis due to pollen, unspecified seasonality- Primary documented in this encounter Care Teams Derrick Engineer Relationship Specialty Start Date End Date Jonathan Amado MD [address] [place] [phone] PCP - General Family Medicine 06/24/13 09/14/23 Jonathan Amado MD [address] [place] [phone] 06/24/13 documented as of this encounter
--- OUTSIDE RECORDS SUMMARY | 2024-10-17 03:08 | XMS_ITS | Encounter Summary ---
Author Organization [facility] Address [address] [facility] [place] [address] Care Team Providers Care Fluid Designer Name Role Phone Jonathan Amado MD Primary Care Provider [phone]- [phone] Jonathan Amado MD Unavailable [phone] Encounter Details Date Type Department Care Team (Latest Contact Info) Description 08/11/2018 5:20 PM CDT - 08/11/2018 11:59 PM T Hospital Encounter [facility] DRAW STATION [address] [place] [address] Grupo Brice MD [address] [place] [address] Discharge Disposition: Home or Self Care Social [...] Sig Dispensed Refills Start Date End Date ergocalciferol (DRISDOL) 1.25 MG (43197 UT) capsule Take 1 (one) capsule by mouth every 30 days fluticasone propionate (FLONASE) 50 MCG/ACT nasal spray Wallace 2 (two) sprays into each nostril once daily azithromycin (ZITHROMAX) 250 MG tablet Take 1 tablet by mouth once daily 0 08/07/2018 09/29/2018 B Complex-C (SUPER B COMPLEX PO) Take 1 tablet by mouth once daily 04/14/2023 budesonide (PULMICORT) 0.5 MG/2ML nebulizer suspension Add 1 vial to 240ml saline (patient will mix own saline). Irrigate half in each nostril twice daily. 60 vial 11 04/21/2018 10/15/2018 Cetirizine-Pseudoephedr ine (ZYRTEC-D PO) Take by mouth [...] 250 mg by mouth once daily 04/14/2023 olopatadine 0.7 % (PAZEO) 0.7 % ophthalmic solution Instill 1 drop into both eyes once daily as needed for Itchy Eyes 1 bottles 3 06/02/2018 09/29/2018 Ondansetron HCl (ZOFRAN PO) Take 1 tablet by mouth as needed 09/15/2023 pantoprazole EC (PROTONIX) 40 MG tablet Take 40 mg by mouth BID. 5 10/09/2017 03/01/2019 predniSONE (DELTASONE) 10 MG tablet Take by [...] st Contact Info) Description 10/19/2024 3:40 PM DIFFUSER OPERATOR Clinical Support [facility] [address] [place] [phone] 10/26/2024 3:20 PM DIFFUSER OPERATOR Clinical Support [facility] [address] [place] [phone] 11/02/2024 3:40 PM DIFFUSER OPERATOR Clinical Support [facility] [address] [place] [phone] 11/09/2024 3:20 PM DIFFUSER OPERATOR Clinical Support [facility] [address] [place] [phone] documented as of this encounter Procedures Procedure Name Priority Date/Time Associated Diagnosis Comments CULTURE RESPIRATORY+GRAM STAIN (STL) Routine 08/11/2018 5:26 PM CDT Chronic maxillary sinusitis documented in this encounter Results * (ABNORMAL) CULTURE RESPIRATORY+GRAM STAIN (08/11/2018 5:26 PM CDT) Culture Rare Aspergillus species(A) CHERELLE 08/14/2018 4:32 PM CDT [facility] Culture Rare Staphylococcus species (coagulase-negati ve)(A) CHERELLE 08/14/2018 4:32 PM CDT [facility] Gram Stain No organisms seen 018 4:32 PM CDT [facility] Microbiology SINUS / Unknown Collection / Unknown 08/11/2018 5:26 PM CDT 08/11/2018 5:34 PM CDT Grupo Brice MD LAB - MICROBIOLOGY O RDERABLES [facility] [address] [place], [address] [phone] documented in this encounter Visit Diagnoses Diagnosis Chronic maxillary sinusitis documented in this encounter Care Teams Fluid Designer Relationship Specialty Start Date End Date Jonathan Amado MD [address] [place] [phone] PCP - General Family Medicine 06/24/13 09/14/23 Jonathan Amado MD [facility] [place] [phone] 06/24/13 documented as of this encounter
--- OUTSIDE RECORDS SUMMARY | 2024-10-17 03:08 | XMS_ITS | Encounter Summary ---
Author Organization [facility] Address [facility] [place] [address] Care Team Providers Care Finished Cloth Examiner Name Role Phone Jonathan Amado MD Primary Care Provider [phone]- [phone] Jonathan Amado MD Unavailable [phone] Encounter Details Date Type Department Care Team (Latest Contact Info) Description 05/27/2017 Hospital Outpatient Visit [facility] [address] [place] [address] Grupo Brice MD [facility] [place] [address] Discharge Disposition: Home or Self Care Social [...] st Contact Info) Description 10/19/2024 3:40 PM BORING INSPECTOR Clinical Support [facility] [address] [place] [phone] 10/26/2024 3:20 PM BORING INSPECTOR Clinical Support [facility] [address] [place] [phone] 11/02/2024 3:40 PM BORING INSPECTOR Clinical Support [facility] [address] [place] [phone] 11/09/2024 3:20 PM BORING INSPECTOR Clinical Support [facility] [address] [place] [address] documented as of this encounter Procedures Procedure Name Priority Date/Time Associated Diagnosis Comments METHICILLIN RAPID TEST Routine 05/27/2017 4:00 PM CDT CULTURE AEROBIC Routine 05/27/2017 4:00 PM CDT documented in this encounter Results * (ABNORMAL) CULTURE AEROBIC (05/27/2017 4:00 PM CDT) Culture Aerobic Growth of respiratory mayito. [facility] Culture Aerobic STAPHYLOCOCCUS AUREUS(A) [facility] Comment: Very Light Growth Staphylococcus Aureus Organism further identified as Methicillin Susceptible Staphylococcus aureus (MSSA) by penicillin binding protein immunoassay. Culture Aerobic STREPTOCOCCUS PNEUMONIAE(A) [facility] Comment:Moderate Growth Stre ptococcus Pneumoniae Gram Stain [facility] Comment:QNS-1 swab. Fluid specimen (specimen) 05/27/2017 4:00 PM CDT 05/27/2017 5:18 PM CDT Narrative [facility] - 05/30/2017 2:05 PM CDT sinus Specimen [...] Brice MD LAB - [place] [address], [facility] [phone] * METHICILLIN RAPID TEST (05/27/2017 4:00 PM CDT) Methicillin Rapid Test Negative Negative [facility] Fluid specimen (specimen) 05/27/2017 4:00 PM CDT 05/27/2017 5:18 PM CDT Narrative [facility] - 05/29/2017 10:50 AM CDT sinus Methicillin Susceptible Staphylococcus aureus (MSSA) by penicillin binding protein immunoassay. Conventional susceptibility testing to follow. Grupo Brice MD LAB - MICROBIOLOGY [place] Performing Organization Address [facility] Co de Phone Number [address] [phone] documented in this encounter Visit Diagnoses Diagnosis Other acute sinusitis documented in this encounter Care Teams Finished Cloth Examiner Relationship Specialty Start Date End Date Jonathan Amado MD [address] [place] [phone] PCP - General Family Medicine 06/24/13 09/14/23 Jonathan Amado MD [facility] [place] [phone] 06/24/13 documented as of this encounter
--- OUTSIDE RECORDS SUMMARY | 2024-10-17 03:08 | XMS_ITS | Encounter Summary ---
Author Organization [facility] Address [address] [facility] [place] [address] Care Team Providers Care Horse Exerciser Name Role Phone Jonathan Amado MD Primary Care Provider [phone]- [phone] Jonathan Amado MD Unavailable [phone] Reason for Visit * Reason Comments Immunotherapy Encounter Details Date Type Department Care Team (Latest Contact Info) Description 07/14/2018 3:30 PM CDT Clinical Support [facility] Otolaryngology [address] [address] Allergic rhinitis due to pollen, unspecified seasonality [...] * Patient Instructions* Charleen North RN - 07/14/2018 4:06 PM CDT Reviewed treatment for local reaction [...] closest Emergency Department. Please inform office at [phone] (HEIDY office nurse line) after you have been treated. documented in this encounter Progress Notes * Charleen North RN - 07/14/2018 4:04 PM CDT Serum calculations have been reviewed by Dr. Arellano. Serum compounded into 7 individual dose vialsand mailed to patient. Date Tree Mix [place] Mix Mold Mix Phenol Normal Saline SIGNATURE AND LOCATION 07/14/2018 0.12 0.12 0.12 0.40 Right upper arm SQ-sb 07/21/2018 0.25 0.25 0.25 07/25/2018 0.25 0.25 0.25 08/18/2018 0.25 0.25 0.25 09/01/2018 0.25 0.25 0.25 09/15/2018 0.25 0.25 0.25 09/29/2018 0.25 0.25 0.25 Due to a change in the Mite Farinae, Wallace, Ragweed, and Pigweed extract forge tender, the initial dose of the series will be adjusted per forge tender's recommendation. An additional vial will be madeto accommodate the adjusted dose. Department of Otolaryngology Head and Neck Surgery Patient Name: Pina Reynaga : 1970 Date: 07/14/2018 1. Did you bring your Epi-pen with you to clinic today? Yes 2. How are you feeling today? Good, some congestion 3. How have you been feeling since your last shot? fine A. What symptoms do you have? congestion B. When do you have these symptoms? Am's worse C. Are your symptoms mild, moderate or severe? As above 4. How has your asthma been? fine A. Is your asthma controlled or uncontrolled? [...] a temperature >101? no Injection time: 1510 Site: Right Upper Arm SQ Vial Contents diluted with 0.5ml Normal Saline yes No injection given due to Reaction: No Action taken: n/a 1530 Time ambulatory form clinic in no distress, color pink, respiratory unlabored, steady on feet,voices no complaints. documented in this encounter Plan of Treatment Upcoming Encounters Date Type Department Care Team (Late st Contact Info) Description 10/19/2024 3:40 PM EXPORT SALES ASSISTANT Clinical Support [facility] [address] [place] [phone] 10/26/2024 3:20 PM EXPORT SALES ASSISTANT Clinical Support [facility] [address] [place] [phone] 11/02/2024 3:40 PM EXPORT SALES ASSISTANT Clinical Support [facility] [address] [place] [phone] 11/09/2024 3:20 PM EXPORT SALES ASSISTANT Clinical Support [facility] - [facility]NT [address] [place] [phone] documented as of this encounter Visit Diagnoses Diagnosis Allergic rhinitis due to pollen, unspecified seasonality- Primary documented in this encounter Care Teams Horse Exerciser Relationship Specialty Start Date End Date Jonathan Amado MD [address] [place] [phone] PCP - General Family Medicine 06/24/13 09/14/23 Jonathan Amado MD [address] [place] [phone] 06/24/13 documented as of this encounter
--- OUTSIDE RECORDS SUMMARY | 2024-10-17 03:08 | XMS_ITS | Encounter Summary ---
Author Organization [facility] Address [address] [facility] [place] [address] Care Team Providers Care Commissions Analyst Name Role Phone Jonathan Amado MD Primary Care Provider [phone]- [phone] Jonathan Amado MD Unavailable [phone] Reason for Visit * Reason Comments Immunotherapy Encounter Details Date Type Department Care Team (Latest Contact Info) Description 11/24/2018 3:30 PM ROD BUSTER HELPER Clinical Support [facility] Otolaryngology [address] [address] Allergic rhinitis, unspecified seasonality, unspecified trigger Social [...] * Patient Instructions* Charleen North RN - 11/24/2018 3:44 PM ROD BUSTER HELPER Reviewed treatment for local reaction including call [...] closest Emergency Department. Please inform office at [phone] (HEIDY office nurse line) after you have been treated. BUSTER HELPER documented in this encounter Progress Notes * Charleen North RN - 11/24/2018 3:42 PM CST Serum calculations have been reviewed by Dr. Arellano. Serum compounded into 7 individual dose vialsand kept at [facility] for injections. Date Tree Mix [place] Mix Mold Mix Phenol Normal Saline SIGNATURE AND LOCATION 10/21/2018 0.25 0.12 0.12 0.25 Right upper arm SQ on 10/27 -am 10/28/2018 0.25 0.25 0.25 Right upper arm SQ 11/11 sb 11/11/2018 0.25 0.25 0.25 Right upper arm SQ-sb 11/2411/25/2018 0.25 0.25 0.25 12/09/2018 0.25 0.25 0.25 12/23/2018 0.25 0.25 0.25 01/06/2019 0.25 0.25 0.25 Department of Otolaryngology Head and Neck Surgery Patient Name: Pina Reynaga : 1970 Date: 11/24/2018 1. Did you bring your Epi-pen with [...] you have a temperature >101? no Injection time:1525 Site: Right Upper Arm SQ Vial Contents diluted with 0.5ml Normal Saline no No injection given due to Reaction: No Action taken: Reviewed treatment for local reaction including call office for reaction > 2 inches. Reviewed use epi-pen for signs of anaphylaxis, and call 911. Pt acknowledges understanding. 1540Time ambulatory from clinic in no distress, color pink, respiratory unlabored, steady on feet, voices no complaints. BUSTER HELPER documented in this encounter Plan of Treatment Upcoming Encounters Date Type Department Care Team (Late st Contact Info) Description 10/19/2024 3:40 PM ROD BUSTER HELPER Clinical Support [facility] [address] [place] [phone] 10/26/2024 3:20 PM ROD BUSTER HELPER Clinical Support [facility] [address] [place] [phone] 11/02/2024 3:40 PM ROD BUSTER HELPER Clinical Support [facility] [address] [place] [phone] 11/09/2024 3:20 PM ROD BUSTER HELPER Clinical Support [facility] [address] [place] [phone] documented as of this encounter Visit Diagnoses Diagnosis Allergic rhinitis, unspecified seasonality, unspecified trigger- Primary documented in this encounter Care Teams Commissions Analyst Relationship Specialty Start Date End Date Jonathan Amado MD [address] [place] [phone] PCP - General Family Medicine 06/24/13 09/14/23 Jonathan Amado MD [address] [place] [phone] 06/24/13 documented as of this encounter
--- OUTSIDE RECORDS SUMMARY | 2024-10-17 03:08 | XMS_ITS | Encounter Summary ---
Author Organization [facility] Address [facility] [place] [address] Care Team Providers Care Barge Pilot Name Role Phone Jonathan Amado MD Primary Care Provider [phone] Jonathan Amado MD Unavailable [phone] Reason for Visit * Reason Comments Allergy Symptoms Check Encounter Details Date Type Department Care Team (Late st Contact Info) Description 09/08/2018 3:30 PM SUMMER LAW ASSOCIATE Office Visit [facility] Otolaryngology [address] [address] Grupo Brice MD [address] [place] [address] Chronic sinusitis, unspecified location (Primary Dx) Social [...] Sign Reading Time Taken Comments Blood Pressure 103/71 09/08/2018 3:41 PM SUMMER LAW ASSOCIATE Pulse 82 09/08/2018 3:41 PM SUMMER LAW ASSOCIATE Temperature - - Respiratory Rate - - Oxygen Saturation - - Inhaled Oxygen Concentration - - Weight 70.3 kg (155 lb) 09/08/2018 3:41 PM SUMMER LAW ASSOCIATE Height 162.6 cm (5' 4 ) 09/08/2018 3:41 PM SUMMER LAW ASSOCIATE Body Mass Index 26.61 09/08/2018 3:41 PM SUMMER LAW ASSOCIATE documented in this encounter Patient Instructions * Patient Instructions* StantonShannonYohannesCésar lyy - 09/08/2018 3:43 PM SUMMER LAW ASSOCIATE Thank you for visiting [facility] Otolaryngology - Head & Neck Surgery. [...] an appointment, please call our office at [phone] Friday through Friday from 8:30 am to4:30 pm. You can also request a routine appointment through your [employer] account. Prescription Refills Contact your pharmacy to [...] call the medical exchangeat and ask the balancing machine operator to page the ENT physician inventory control/shipping receiving. *Caller ID blocking service will need to be turned off for your call to be returned. We also specialize in Hearing Aids, Allergy testing, swallowing disorders, voice problems, cancer diagnosis, and so much more. Visit our website at [email or web address] for information about our practice and an interactive healthencyclopedia. ER LAW ASSOCIATE documented in this encounter Progress Notes * Lynda Colon - 09/08/2018 3:42 PM CST Review of Systems Pina Reynaga reports the following; patient has no complaints of symptoms today ER LAW ASSOCIATE * Angel Chiang MD - 09/08/2018 3:25 PM CST History of Present Illness: Pina is a 48 y.o. female with PMH of recurrent sinus disease, nasal polyps, and fibromyalgia and acute sinusitis. She was last seen in July with an acute infection She was started on Tobramycin and Budesonide irrigations. 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 Since then she reports improvement in her symptomatology. Continues to use the Tobramycin and Budesonide irrigations. Past Medical History: No past medical history on file. Past Surgical History: Procedure Laterality Date ??? Cholecystectomy, Laparoscopic ??? Hysterectomy endometrosis Family History Problem Relation Age of Onset ??? Psoriasis Mother Status: Alive ??? Arthritis - Osteo Mother ??? Hypertension Father Status: Alive ??? None Known Brother Current Outpatient Prescriptions Medication Sig Dispense Refill ??? Tobramycin Add 1 capsule of 20mg to 240ml saline (patient may mix own saline). Irrigate half ineach nostril twice daily. 1 bottles 0 ??? azithromycin (ZITHROMAX) 250 MG tablet Take [...] negative except for above. Physical Examination: BP 103/71 Pulse 82 Ht 5' 4 (1.626 m) Wt 155 lb (70.3 kg) BMI 26.61 kg/m2 Body mass index is 26.61 kg/(m^2). Constitutional: in no apparent distress and well developed and well nourished Head and Face: Normocephalic, without obvious abnormality; facial strength intact and symmetric, nontender Eyes: conjunctivae/corneas clear. PERRL Ears: Pinnae: normal bilaterally External canals: clear without exudates or blood Tympanic membrane and Middle ears: Right ear: Deferred. Left ear: Deferred. Nasal: External: nose shows no deformity, asymmetry, or inflammation Septum: Good alignment Inf Turbinates: Spade, non-edematous, without discharge Mucosa: Spade, healthy appearing Oral Cavity: No perioral or [...] Rigid nasal endoscopy performed bilaterally. Septum was deviated not deviated. Right nasal cavity showed clear sinus and nasal passages, there were no polyps or purulence. Left nasal cavity showed fungal debris within the maxillary sinus cavity. No maureen purulence. Dr. Brice was present for the entire procedure. Angel Chiang PGY 4 09/08/2018 3:32 PM Assessment and Plan: iPna is a 48 y.o. female with hx of recurrent sinus disease who presents with residual fungal debris in left maxillary sinus. - Continue Tobramycin 20mg mixed with Budesonide saline irrigations. - Continue immunotherapy - Follow-up in clinic in 3 months or sooner if symptoms worsen. Angel Chiang PGY 4 09/08/2018 5:29 PM I have seen and examined the patient and agree with the comments and findings in the above residentnote. I was present for the entirety of the procedure rGupo Brice M.D. Professor Dramatic improvement after irrigating with tobramycin and decadron. Crusts in the left maxillary sinus consistent with fungus ball. Removed in the office endoscopically. Mils edema of the mucosa in the base of the left max sinus. COntinue irrigations FU 3 months ER LAW ASSOCIATE documented in this encounter Procedure Notes * Angel Chiang MD - 09/08/2018 3:31 PM CSTAssociated Order(s): PROC SINUS ENDOSCOPY Procedure(s): OR NASAL ENDOSCOPY,DX Pre-Procedure Diagnose(s): Chronic sinusitis, unspecified location Procedure: Rigid Nasal Endoscopy Anesthesia: Bilateral Nasal Cavities sprayed with Lidocaine and Neosynephrine Detail: Rigid nasal endoscopy performed bilaterally. Septum was deviated not deviated. Right nasal cavity showed clear sinus and nasal passages, there were no polyps or purulence. Left nasal cavity showed fungal debris within the maxillary sinus cavity. No maureen purulence. The fungus crust in the left maxillary sinus was removed using curved suction, 70 degree telescope and 10 ss of NS irrigation. Dr. Brice was present for the entire procedure. Angel Chiang PGY 4 09/08/2018 3:32 PM ER LAW ASSOCIATE documented in this encounter Plan of Treatment Upcoming Encounters Date Type Department Care Team (Late st Contact Info) Description 10/19/2024 3:40 PM SUMMER LAW ASSOCIATE Clinical Support [facility] - [facility] [address] [place] [phone] 10/26/2024 3:20 PM SUMMER LAW ASSOCIATE Clinical Support [facility] [address] [place] [phone] 11/02/2024 3:40 PM SUMMER LAW ASSOCIATE Clinical Support [facility] [address] [place] [phone] 11/09/2024 3:20 PM SUMMER LAW ASSOCIATE Clinical Support [facility] [address] [place] [phone] documented as of this encounter Procedures Procedure Name Priority Date/Time Associated Diagnosis Comments OR NASAL ENDOSCOPY,DX Routine 09/09/2018 10:39 AM SUMMER LAW ASSOCIATE Chronic sinusitis, unspecified location documented in this encounter Results * OR NASAL ENDOSCOPY,DX (09/09/2018 10:39 AM SUMMER LAW ASSOCIATE) Narrative Grupo Brice MD - 09/09/2018 10:39 AM SUMMER LAW ASSOCIATE Grupo Brice MD ? 09/09/2018 ??9:30 AM [...] Angel Chiang MD PROCEDURE/MINOR SURG ICAL ORDERABLES documented in this encounter Visit Diagnoses Diagnosis Chronic sinusitis, unspecified location- Primary documented in this encounter Care Teams Barge Pilot Relationship Specialty Start Date End Date Jonathan Amado MD [address] [place] [phone] PCP - General Family Medicine 06/24/13 09/14/23 Jonathan Amado MD [address] [place] [phone] 06/24/13 documented as of this encounter
--- OUTSIDE RECORDS SUMMARY | 2024-10-17 03:08 | XMS_ITS | Encounter Summary ---
Author Organization [facility] Address [facility] [place] [address] Care Team Providers Care Guest House Manager Name Role Phone Jonathan Amado MD Primary Care Provider [phone] Jonathan Amado MD Unavailable [phone] Encounter Details Date Type Department Care Team (Latest Contact Info) Description 02/16/2014 Hospital Outpatient Visit Historic [facility] MAIN LAB [address] [place] [address] Grupo Brice MD [address] [place] [address] DEPT [place] [address] Discharge Disposition: Home or Self Care Social [...] st Contact Info) Description 10/19/2024 3:40 PM FORGING ENGINEER Clinical Support [facility] [address] [place] [phone] 10/26/2024 3:20 PM FORGING ENGINEER Clinical Support [facility] [address] [place] [phone] 11/02/2024 3:40 PM FORGING ENGINEER Clinical Support [facility] [address] [place] [phone] 11/09/2024 3:20 PM FORGING ENGINEER Clinical Support [facility] [address] [place] [phone] documented as of this encounter Procedures Procedure Name Priority Date/Time Associated Diagnosis Comments CULTURE AEROBIC + GRAM STAIN Routine 02/16/2014 4:44 PM CDT CULTURE AEROBIC Routine 02/16/2014 4:44 PM CDT documented in this encounter Results * (ABNORMAL) CULTURE AEROBIC + GRAM STAIN (02/16/2014 4:44 PM CDT) Culture Aerobic STAPHYLOCOCCUS AUREUS(A) [facility] Comment:Heavy Growth Staphyl ococcus Aureus Culture Aerobic MULTI-DRUG RESISTANT ORGANISM(A) [facility] Comment: Multi-Drug Resistant Organism Further Identified [...] Brice MD LAB - MICROBIOLOGY O RDERABLES [facility]ORY [facility] [address] [place] [address], [facility] [phone] * CULTURE AEROBIC (02/16/2014 4:44 PM CDT) Nasal 02/16/2014 4:44 PM CDT Narrative [facility] - 03/31/2014 11:34 AM CDT Specimen Type->Nasal The following orders were created for panel order CULTURE, AEROBIC & GRAM STAIN. Procedure ? Abnormality ? Status ? --------- ? ------ ? CULTURE, AEROBIC (ROUTINE)[[id number]] ?Abnormal ?Edited Result - FINAL ? Gram Stain[[id number]] ? Please view results for these tests on the individual orders. Grupo Brice MD LAB - MICROBIOLOGY O RDERABLES Performing Organization Address City/State/[facility] Co de Phone Number [facility] [address] documented in this encounter Visit Diagnoses Not on filedocumented in this encounter Care Teams Guest House Manager Relationship Specialty Start Date End Date Jonathan Amado MD [address] [place] [phone] PCP - General Family Medicine 06/24/13 09/14/23 Jonathan Amado MD [address] [place] [phone] 06/24/13 documented as of this encounter
--- OUTSIDE RECORDS SUMMARY | 2024-10-17 03:10 | XMS_ITS | Patient Health Record ---
Author Organization [facility] Address [address] [facility] [address] [place] [address] Care Team Providers Care Cost Control Specialist Name Role Phone Aneudy ONEIL, Jonathan Primary Care Provider Scott CERON MD, FRANK Unavailable ALLERGIES Allergen (clinical drug ingredient) Drug/Non Drug Allergy documented on EMR Reaction Allergy Type Onset Date Status IODINATED CONTRAST- ORAL AND IV DYE (uncoded) Review Dt:10/09/2017 Allergy Active morphine MORPHINE (uncoded) Review Dt:10/09/2017 Allergy Active ciprofloxacin CIPRO Review Dt:10/09/2017 Drug Allergy Active COMPAZINE Review Dt:10/09/2017 Drug Allergy Active REASON FOR REFERRAL No Information MEDICATIONS Medication SIG (Take, Route, Frequency, Duration) Notes Start Date End Date Status Magnesium 200 MG 2 tablets with a homero l Orally Once a day for 30 day(s) Active Ondansetron 4 MG 1 tablet on the tong ue and allow to dissolve as needed Orally every 4-6 hours as needed for nausea/vomiting 02/24/2019 Active Pantoprazole Sodium 40 MG 1 tablet Orall y Once a day for 30 day(s) Active ZyrTEC Allergy 10 MG 1 tablet Orally Onc e a day for 30 day(s) Active Macrobid 100 MG 1 capsule with food Orally every 12 hrs Active SOCIAL HISTORY Tobacco Use: Social History Observation Description Date Details (start date - stop date) Never Smoker NA - NA Sex Assigned At : Social History Observation Description Sex Assigned At Unknown Tobacco Use/Smoking Question Answer Notes Are you a nonsmoker PROBLEMS Problem Type ICD Code Onset Dates Problem Status W/U Status Risk SNOMED Code Notes Problem 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) Active confirmed Spasm of sphincter of Oddi (48285858) Problem Epigastric pain (R10.13) Active confirmed Epigastric pain (42299395) Problem Lower abdominal pain, unspecified (R10.30) Active confirmed Lower abdominal pain (11411764) Problem Generalized abdominal pain (R10.84) Active confirmed Generalized abdominal pain (643336873) Problem Abdominal distension (gaseous) (R14.0) Active confirmed Flatulence, eructation and gas pain (301290339) Problem Diarrhea, unspecified (R19.7) Active confirmed Diarrhea (50176529) PLAN OF TREATMENT Pending Test Test Name Order Date Colonoscopy 07/20/2018 Colonoscopy 12/19/2021 Amylase, Serum 07/20/2018 Lipase, Serum 07/20/2018 Hepatic Function Panel (7) 07/20/2018 CBC 07/20/2018 Endoscopic Retrograde Cholangiopancreato graphy (ERCP) 03/10/2019 Esophagogastroduodenoscopy (EGD) 018 Insurance Providers Payer Name Payer Address Payer Phone Subscriber Number Group Number Insured Name Patient Relationship to Insured Coverage Start Date Coverage End Date [facility] [address] [place], [place] [id number] Pina Reynaga Self - patient is the insured [facility] [address] [place], [place] [id number] Cristi Reynaga jr Spouse - patient is the spouse of the insured MEDICAL (GENERAL) HISTORY Medical History History ICD Code Hx PUD Hx diverticulosis GERD SOD/papillary stenosis Biliary dyskinesia RLS Hemorrhoids Fibromyalgia Migraines Interstitial cystitis IBS Endometriosis Mixed connective tissue disease Unspecified autoimmune disease Surgical History Surgery Date(Month/Year) Colonoscopy 1993 - Dr. Alfonso revealed h emorrhoids. Colonoscopy Dr. Marte 10/31/14 Normal, repeat 10 yrs 10/31/[address] Platt 08/29/09 Normal. Random colon and TI bx neg. 08/29/2009 EGD Aliperti- A single duode nal nodule was found in gastric antrum and bxd. Small hiatal hernia, o/w normal. Previously noted ulcers have healed. Path- polypoid fragment of antral mucosa with focal reactive epithelial and scant chronic inflamm 05/16/2017 EGD 11/2004 - normal findings . EGD March 07, 2006, performed by Dr. Mark Alfonso. EGD 05/11/13 - Dr. Ceron - Normal find ings. 05/11/[address] Ceron 03/19/17 Ex tensive geographic superficial duodenal ulcers with edema, bx. Normal 2nd and 3rd duodenum, bx. Otherwise normal. Path-- BETSY neg, duodenal bulb erosive gastritis, 2nd duodenum mild active duodenitis. 03/19/[address] Marte 10/30/15 Hia sharyn hernia, gastric erythema. Gastric/duo bx neg. 10/30/[address] Platt 08/29/09 hiatal hernia, o/w normal.? Duodenal bx neg. 08/29/2009 ERCP on January 21, 2006, with findings of combined papillary stenosis, morphologic changes of the pancreatic duct of unclear clinical significance, short-term stenting performed and stents removed on January 23, 2006, with n 01/21/2006 10/16/17 It[facility] 2 cm slidi ng hiatal hernia, minimal antral erythema, normal duodenum. Path- gastric and duodenal bx were negative Sinus surgery for fungal infection in 20 12 Right oophorectomy 2010 Removal o right ovarian cyst 2007 Adhesiolysis 2007 Lap cholecystectomy 2004 Partial hysterectomy SInus surgery x 3 Bladder suspension Tonsillectomy Colonoscopy Aliperti 08/2018 Normal. TI and random colon bx neg. EGD 08/2018 Alipert[facility]om Small h iatal hernia, o/w normal. Path- BETSY neg, duodenal bx neg.
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
--- OUTSIDE RECORDS SUMMARY | 2024-10-17 03:11 | XMS_ITS | Patient Health Record ---
Author Organization [facility] johana Address [address] [facility] [place] [address] Care Team Providers Care Audio/Video Engineer Name Role Phone Aneudy ONEIL, Jonathan Primary Care Provider Cristi Powers [phone] Allergies Allergen (clinical drug ingredient) Drug/Non Drug Allergy documented on EMR Reaction Allergy Type Onset Date Status ciprofloxacin Cipro Unknown Drug Allergy 07/16/2021 Ac tive Ciprofloxacin Unknown Drug Allergy 07/16/2021 Ac tive Reason For Referral No Information Medications Medication SIG (Take, Route, Fr equency, Duration) Notes Start Date End Date Status ZyrTEC Allergy 10 MG take 1 tablet (10 m g) by oral route once daily Oral 1 Active Problems Problem Type SNOMED Code ICD Code Onset Dates Problem Status W/U Status Risk Notes Problem 137508170 Other custodial (current) drug therapy (Z79.899) Active confirmed Problem Inflammatory polyarthropathy (587972865) Inflammatory polyarthropathy (M06.4) 08/06/20 21 Active confirmed Problem Joint pain (54239455) Pain in unspecified joint (M25.50) Active confirmed Problem Anesthesia of skin (822267520) Anesthesia of skin (R20.0) Active confirmed Vital Signs Heart Rate 58 /min 04/09/2024 Temperature 98.2 degrees Fahrenheit 03/12/2024 Blood pressure diastolic 78 mm Hg 04/09/2024 Oximetry 100 % 03/12/2024 Height 63 in 04/09/2024 Blood pressure systolic 120 mm Hg 04/09/2024 Weight 156 lbs 04/09/2024 BMI 27.63 kg/m2 04/09/2024 Encounters Encounter Location Date Provider Diagnosis [facility] [email or web address] [place] [address] 03/12/2024 Cristi Foss Inflammatory polyarthropathy M06.4 and 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 Z79.899 [facility] [address] [place] [address] 04/09/2024 Cristi Foss Inflammatory polyarthropathy M06.4 ; Pain in unspecified joint M25.50 and Other custodial (current) drug therapy Z79.899 [facility] [address] [place] [address] 07/09/2024 Crisit Foss Assessments Encounter Date Diagnosis (ICD Code) Assessment Notes Treatment Notes Treatment Clinical Notes Section Notes 03/12/2024 Inflammatory polyarthropathy (ICD-10 - M06.4) 04/09/2024 Inflammatory polyarthropathy (ICD-10 - M06.4) 04/09/2024 Pain in unspecified joint (ICD-10 - M25.50) 03/12/2024 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 (ICD-10 - Z79.899) 04/09/2024 Other custodial (current) drug therapy (ICD-10 - Z79.899) 07/09/2024 Other Plan Of Treatment Pending Test Test Name Order Date X ray : Hand, left 03/12/2024 X ray : Hand, right 03/12/2024 Creatinine, Serum 03/12/2024 CBC With Differential/Platelet CBC With Differential/Platelet 4 Rheumatoid Arthritis Factor 03/12/2024 CCP IgG Antibodies 03/12/2024 FABIAN Comprehensive Panel 03/12/2024 Hepatic Function Panel (7) 03/12/2024 Hepatic Function Panel (7) 04/09/2024 ESR 03/12/2024 Creatinine 04/09/2024 Insurance Providers Payer Name Payer Address Payer Phone Subscriber Number Group Number Insured Name Patient Relationship to Insured Coverage Start Date Coverage End Date [place] [address] [place] [address] [id number] Pina Reynaga Self - patient is the insured [facility] [employer] [address] [address] [place] [address] [id number] Pina Reynaga Self - patient is the insured Medical (General) History Surgical History Surgery Date(Month/Year) D&C; 2021-07-16 Cyst removal; 2021-07-16 Hysterectomy; 2021-07-16 Bladder Surgery; 2021-07-16 Cyst excision; 2021-07-16 Sinus Surgery; 2021-07-16
--- OUTSIDE RECORDS SUMMARY | 2024-10-17 03:11 | XMS_ITS | Clinical Summary ---
Author Organization [facility] Address [address] [place] [address]. [place] [address] [place] [address] Care Team Providers Care Land Conservation Specialist Name Role Phone Unavailable Primary Care Provider Unavailabl e Social History Tobacco Use Types Packs/Day Years Used Date Smoking Tobacco: Never Assessed Comments Unknown Sex and Gender Information Value Date Recorded Sex Assigned at Not on file Legal Sex Female 7:55 PM CDT Gender Identity Not on file Sexual Orientation Not on file Plan of Treatment Health Maintenance Due Date Last Done Comments Cervical Cancer Screening Pa p Smear (Age 30 to 64) Every 3 Years 1971 Colorectal Cancer Screening Colonoscopy (10 Years) 1971 Annual Physical 1974 Hepatitis C 1989 DTaP, Tdap and Td Vaccines ( 1 - Tdap) 1990 Hepatitis B Vaccines (1 of 3 - 19+ 3-dose series) 1990 Cervical Cancer Screening Pa p with HPV Testing (Age 30 to 64) Every 5 Years 2001 Cervical Cancer Screening with HPV 2001 Mammogram Screening 2011 Zoster Vaccines (1 of 2) 2021 COVID-19 Vaccine (2023-2 5 season) 2024 Influenza Adult (#1) 2024 Meningococcal Vaccine Aged Out No jovanny felipe eligible based on patient's age to complete this topic Pneumococcal Vaccine: Pediat rics (0 to 5 Years) and At-Risk Patients (6 to 64 Years) Aged Out No longer eligible b ased on patient's age to complete this topic RSV Immunizations Under 20 Months Aged Out No longer eligible based on patient's age to complete this topic
--- OUTSIDE RECORDS SUMMARY | 2024-10-17 03:11 | XMS_ITS | Encounter Summary ---
Author Organization [facility] Address [address] [place] [address] Care Team Providers Care Phone Operator Name Role Phone Jonathan Amado MD Primary Care Provider [phone]- [phone] Encounter Details Date Type Department Care Team (Latest Contact Info) Description 06/23/2014 8:30 PM CDT - 06/23/2014 11:59 PM T Hospital Encounter [facility] Laboratory Support Services [facility] [address] [facility] [address] [place] [address] Grupo Brice MD [address] [facility] [address] [place] [address] Discharge Disposition: Home or Self Care Social History Tobacco Use Types Packs/Day Years Used Date Smoking Tobacco: Never Alcohol Use Standard Drinks/Week Comments Yes 0 (1 standard drink = 0.6 oz pur e alcohol) rarely Sex and Gender Information Value Date Recorded Sex Assigned at Not on file Gender Identity Not on file Sexual Orientation Not on file documented as of this encounter Medications at Time of Discharge Medication Sig Dispensed Refills Start Date End Date cephALEXin (KEFLEX) 500 mg Oral capsule Take 500 mg by mouth 3 times daily. fexofenadine (JOHNATHAN) 180 mg Oral tablet Take 180 mg by mouth daily. cholecalciferol, vitamin D3, 50,000 unit Oral Cap Take 1 Cap by mouth daily. RABEprazole (ACIPHEX) 20 mg Oral TbEC Take 20 mg by mouth daily. ASPIRIN/ACETAMINOPHEN/CAFF EINE (EXCEDRIN MIGRAINE ORAL) Take by mouth. SIMETHICONE (GAS-X ORAL) Take by mouth. documented as of this encounter Plan of Treatment Not on file documented as of this encounter Procedures Procedure Name Priority Date/Time Associated Diagnosis Comments WOUND CULTURE WITH GRAM STAIN Routine 06/23/2014 8:45 PM CDT Unspecified sinusitis (chronic) FUNGUS CULTURE, OTHER Routine 06/23/2014 8:45 PM CDT Unspecified sinusitis (chronic) documented in this encounter Results * (ABNORMAL) FUNGUS CULTURE, OTHER (06/23/2014 8:45 PM CDT) FINAL MICRO REPORT Mold isolated. - does not identify by current methodology Aspergillus fumigatus isolated.(A) [facility] Wound ENTIRE MAXILLA / Unknown 06/23/2014 8:45 PM CDT Comment:Wound/ Maxillary Grupo Brice MD MICROBIOLOGY - GENER AL ORDERABLES [facility] [employer] [facility]# [id number] [address] [place] [address] * (ABNORMAL) WOUND CULTURE WITH GRAM STAIN (06/23/2014 8:45 PM CDT) GRAM STAIN Updated Report: Moderate Gram Negative Coccobacilli No WBC seen.(A) [facility] FINAL MICRO REPORT Heavy growth Acinetobacter baumannii complex Heavy growth Stenotrophomonas maltophilia Very light growth Enterococcus faecalis(A) [facility] SUSCEPTIBILITY PERFORMED ON ACINETOBACTER BAUMANNII COMPLEX(A) [facility] SUSCEPTIBILITY PERFORMED ON STENOTROPHOMONAS MALTOPHILIA(A) [facility] SUSCEPTIBILITY PERFORMED ON ENTEROCOCCUS FAECALIS(A) [facility] Sinus ENTIRE MAXILLA / Unknown 06/23/2014 8:45 PM CDT 06/23/2014 9:46 PM CDT Comment:SINUS/ MAXILLA Narrative [facility] - 06/27/2014 10:44 AM CDT Left maxillary sinus Organism Antibiotic Method Susceptibility Acinetobacter baumannii complex AMPICILLIN/ SULBACTAM CHERELLE MCG/ML <=2: Susceptible Acinetobacter baumannii complex MEROPENEM CHERELLE MCG/ML <=0.25: Susceptible Acinetobacter baumannii complex CEFTAZIDIME CHERELLE MCG/ML 4: Susceptible Acinetobacter baumannii complex CEFEPIME CHERELLE MCG/ML 2: Susceptible Acinetobacter baumannii complex GENTAMICIN CHERELLE MCG/ML <=1: Susceptible Acinetobacter baumannii complex CIPROFLOXACIN CHERELLE MCG/ML <=0.25: Susceptible Acinetobacter baumannii complex TRIMETHOPRIM/ SULFAMETHOXAZOLE CHERELLE MCG/ML <=20: Susceptible Stenotrophomonas maltophilia TRIMETHOPRIM/ SULFAMETHOXAZOLE CHERELLE MCG/ML <=20: Susceptible Enterococcus faecalis AMPICILLIN CHERELLE MCG/ML <=2: Susceptible Enterococcus faecalis GENTAMICIN HIGH LE HOA SYNERGY CHERELLE MCG/ML Susceptible Enterococcus faecalis VANCOMYCIN CHERELLE MCG/ML 2: Susceptible rGupo Brice MD MICROBIOLOGY - GENER AL ORDERABLES [facility]# [id number] [address] [place] [address] documented in this encounter Visit Diagnoses Diagnosis Unspecified sinusitis (chronic)- Primary documented in this encounter Care Teams Phone Operator Relationship Specialty Start Date End Date Jonathan Amado MD PCP - General Family Practice 04/16/12 documented as of this encounter
--- OUTSIDE RECORDS SUMMARY | 2024-10-17 03:11 | XMS_ITS | Encounter Summary ---
Author Organization [facility] Address [address] [place] [address] Care Team Providers Care Certified Phlebotomist Name Role Phone Unavailable Primary Care Provider Unavailabl e Encounter Details Date Type Department Care Team (Late st Contact Info) Description 11/11/2020 1:00 PM DIE BARBER Rapid Evaluation [place] [facility] Community Testing [address] [address] Social History Tobacco Use Types Packs/Day Years Used Date Smoking Tobacco: Never Assessed Comments Unknown Sex and Gender Information Value Date Recorded Sex Assigned at Not on file Legal Sex Female 11:36 PM CDT Gender Identity Not on file Sexual Orientation Not on file documented as of this encounter Plan of Treatment Not on file documented as of this encounter Visit Diagnoses Not on filedocumented in this encounter
--- OUTSIDE RECORDS SUMMARY | 2024-10-17 03:11 | XMS_ITS | Clinical Summary ---
Author Organization [facility] Address [address] [place] [address] Care Team Providers Care Larry Operator Name Role Phone Unavailable Primary Care Provider Unavailabl e Social History Tobacco Use Types Packs/Day Years Used Date Smoking Tobacco: Never Assessed Comments Unknown Sex and Gender Information Value Date Recorded Sex Assigned at Not on file Legal Sex Female 11:36 PM CDT Gender Identity Not on file Sexual Orientation Not on file Plan of Treatment Health Maintenance Due Date Last Done Comments Hepatitis C Virus (HCV) Screening 1971 Hepatitis B Immunization (1 of 3 - 19+ 3-dose series) 1990 Pap Smear 1992 Cervical Cancer Screening (CCS) 2001 HPV/Cotest 2001 Colonoscopy 2016 Colorectal Cancer Screening 2016 Cologuard 2021 Immunochemical Fecal Occult Blood 2021 Mammogram 2021 Zoster Immunization (1 of 2) 2021 SARS-COV-2 Immunization ( season) 2023 Influenza Immunization (Seas on Ended) 2024 09/17/2019, 07/23/2018 DTaP/Tdap/Td Immunization Discontinued 2017, 10/29/2017 TdaP Immunization Completed 06/22/2018, 10/29/2017 Pneumococcal Immunization Combined Aged Out 06/29/2020 No longer eligible based on patient's age to complete this topic Meningococcal Immunization (ACWY) Aged Out No longer eligible based on patient's age to complete this topic Rotavirus Immunization Aged Out No lo nger eligible based on patient's age to complete this topic
--- OUTSIDE RECORDS SUMMARY | 2024-10-17 03:11 | XMS_ITS | Encounter Summary ---
Author Organization [facility] Address [address] [place] [address] Care Team Providers Care Gaming Cage Worker Name Role Phone Unavailable Primary Care Provider Unavailabl e Encounter Details Date Type Department Care Team (Late st Contact Info) Description 08/23/2020 Lab Requisition [facility] Community Testing [facility] [address] [place] [address] [place] [address] [place] [address] Social History Tobacco Use Types Packs/Day Years [...] Procedure Name Priority Date/Time Associated Diagnosis Comments SARS-COV-2 PCR [facility] ONLY Routine 08/23/2020 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
--- OUTSIDE RECORDS SUMMARY | 2024-10-17 03:11 | XMS_ITS | Clinical Summary ---
Author Organization [facility] Address [address] [place] [address] Phone Care Team Providers Care Psychological Examiner Name Role Phone Jonathan Amado MD Primary Care Provider [phone]- [phone] Allergies Active Allergy Reactions Criticality Noted Date Comments Ciprofloxacin Muscle Pain 05/06/2013 Doxycycline Unknown 05/06/2013 Iodinated Contrast Media Unknown 05/11/2013 Sneezing, shortness of breath, body aches Morphine Nausea and Vomiting 05/06/2013 Prochlorperazine Anxiety 05/06/2013 Unclassified Drug Cough 05/06/2013 Medications Medication Sig Dispensed Refills Start Date End Date Status fexofenadine (JOHNATHAN) 180 mg Oral tablet Take 180 mg by mouth daily. Active cholecalciferol, vitamin D3, 50,000 unit Oral Cap Take 1 Cap by mouth daily. Active RABEprazole (ACIPHEX) 20 mg Oral TbEC Take 20 mg by mouth daily. Active ASPIRIN/ACETAMINOPHEN/C AFFEINE (EXCEDRIN MIGRAINE ORAL) Take by mouth. Active SIMETHICONE (GAS-X ORAL) Take by mouth. Active cephALEXin (KEFLEX) 500 mg Oral capsule Take 500 mg by mouth 3 times daily. Active Family History Medical History Relation Name Comments Colon Cancer Other great grandpa Relation Name Status Comments Other great grandpa Social History Tobacco Use Types Packs/Day Years [...] Sign Reading Time Taken Comments Blood Pressure 99/73 05/11/2013 11:53 AM CDT Pulse 68 05/11/2013 11:53 AM CDT Temperature 36.2 ??C (97.1 ??F) 05/11/2013 1 1:28 AM CDT Respiratory Rate 18 05/11/2013 11:5 3 AM CDT Oxygen Saturation 100% 05/11/2013 11: 53 AM CDT Inhaled Oxygen Concentration - - Weight 62.5 kg (137 lb 12.8 oz) 013 10:06 AM CDT Height 162.6 cm (5' 4 ) 05/11/2013 10:0 6 AM CDT Body Mass Index 23.65 05/11/2013 10:06 AM CDT Plan of Treatment Health Maintenance Due Date Last Done Comments DTAP/TDAP/TD VACCINES (1 - Tdap) 1990 HEPATITIS B VACCINES (1 of 3 - 19+ 3-dose series) 1990 CERVICAL CANCER SCREENING 2001 BREAST CANCER SCREENING 2011 COLORECTAL SCREENING 2016 Colorectal Cancer Screening 2016 FIT-DNA Q 3 years 2016 FIT/FOBT Q 1 year 2016 Flex Sig/CT Colonography Q 5 years 2016 ZOSTER VACCINE (1 of 2) 2021 INFLUENZA VACCINE (#1) 2024 PNEUMOCOCCAL VACCINE 0-64 YEARS Aged Out No longer eligible based on patient's age to complete this topic Advance Directives For more information, please contact: [phone] * Full Code (Latest Code Status on File) Date Activated Date Inactivated Comments 05/11/2013 9:56 AM 05/11/2013 2:25 PM Care Teams Psychological Examiner Relationship Specialty Start Date End Date Jonathan Amado MD PCP - General Family Practice 04/16/12
--- OUTSIDE RECORDS SUMMARY | 2024-10-17 03:11 | XMS_ITS | Encounter Summary ---
Author Organization [facility] Address [address] [place] [address] Care Team Providers Care Cloud Systems Architect Name Role Phone Jonathan Amado MD Primary Care Provider [phone]- [phone] Encounter Details Date Type Department Care Team (Latest Contact Info) Description 07/15/2013 8:18 PM CDT - 07/15/2013 11:59 PM T Hospital Encounter [facility] Laboratory Support Services [facility] [address] [place] [address] Grupo Brice MD [address] [facility] [address] [place] [address] Discharge Disposition: Home or Self [...] Comments WOUND CULTURE WITH GRAM STAIN Routine 07/15/2013 10:45 PM CDT Unspecified sinusitis (chronic) FUNGUS CULTURE, OTHER Routine 07/15/2013 10:45 PM CDT Unspecified sinusitis (chronic) documented in this encounter Results * FUNGUS CULTURE, OTHER (07/15/2013 10:45 PM CDT) FINAL MICRO REPORT No fungus isolated after 4 weeks. [facility] Drainage fluid specimen (specimen) ENTIRE NOSE / Unknown 07/15/2013 10:45 PM CDT 07/15/2013 11:06 PM CDT Comment:SINUS/ NASAL Grupo Brice MD MICROBIOLOGY - [facility] AL ORDERABLES [facility] CLIA# [id number] [address] [facility] [place] [address] * (ABNORMAL) WOUND CULTURE WITH GRAM STAIN (07/15/2013 10:45 PM CDT) FINAL MICRO REPORT Heavy growth Staphylococcus aureus methicillin resistant (MRSA)(A) [facility] GRAM STAIN Many Gram Positive Cocci Moderate WBC's seen(A) [facility] SUSCEPTIBILITY PERFORMED ON STAPHYLOCOCCUS AUREUS, METHICILLIN RESISTANT(A) [facility] Specimen from nasal sinus (specimen) ENTIRE NOSE / Unknown 07/15/2013 10:45 PM CDT 07/15/2013 11:10 PM CDT Comment:SINUS/ NASAL Narrative Organism Antibiotic Method Susceptibility Staphylococcus aureus, Methicillin resistant OXACILLIN (Nafcillin) CHERELLE MCG/ML >=4: Resistant Staphylococcus aureus, Methicillin resistant GENTAMICIN CHERELLE MCG/ML <=0.5: Susceptible Staphylococcus aureus, Methicillin resistant ERYTHROMYCIN CHERELLE MCG/ML >=8: Resistant Staphylococcus aureus, Methicillin resistant CLINDAMYCIN CHERELLE MCG/ML >=8: Resistant Staphylococcus aureus, Methicillin resistant VANCOMYCIN CHERELLE MCG/ML 1: Susceptible Staphylococcus aureus, Methicillin resistant TETRACYCLINE CHERELLE MCG/ML <=1: Susceptible Staphylococcus aureus, Methicillin resistant RIFAMPIN CHERELLE MCG/ML <=0.5: Susceptible Comment:Rifampin river uld NOT be used alone for antimicrobial therapy. Staphylococcus aureus, Methicillin resistant TRIMETHOPRIM/ SULFAMETHOXAZOLE CHERELLE MCG/ML <=10: Susceptible Grupo Brice MD MICROBIOLOGY - GENER AL ORDERABLES Performing Organization Address City/State/[facility] Co de Phone Number [facility]# [id number] [address] [place] [address] documented in this encounter Visit Diagnoses Diagnosis Unspecified sinusitis (chronic)- Primary documented in this encounter Care Teams Cloud Systems Architect Relationship Specialty Start Date End Date Jonathan Amado MD PCP - General Family Practice 04/16/12 documented as of this encounter
--- OUTSIDE RECORDS SUMMARY | 2024-10-17 03:11 | XMS_ITS ---
Author Organization [facility] johana Address [address] [facility] [place] [address] Care Team Providers Care Reaming Press Operator Name Role Phone Jonathan Aamdo MD Primary Care Provider Cristi Powers Unavailable [phone] Allergies Allergen (clinical drug ingredient) Drug/Non Drug Allergy documented on EMR Reaction Allergy Type Onset Date Status ciprofloxacin Cipro Unknown Drug Allergy 07/16/2021 Ac tive Ciprofloxacin Unknown Drug Allergy 07/16/2021 Ac tive REASON FOR VISIT 4 weeks follow up Medications Medication SIG (Take, Route, Fr equency, Duration) Notes Start Date End Date Status ZyrTEC Allergy 10 MG take 1 tablet (10 m g) by oral route once daily Oral 1 Active Leflunomide 20 MG 1 tablet Orally Once a day for 30 days 03/12/2024 10/07/2024 Active Vital Signs Blood pressure systolic 120 mm Hg 04/09/20 24 Blood pressure diastolic 78 mm Hg 024 Heart Rate 58 /min 04/09/2024 Height 63 in 04/09/2024 Weight 156 lbs 04/09/2024 BMI 27.63 kg/m2 04/09/2024 Encounters Encounter Location Date Provider Diagnosis [facility] [address] [facility] [address] [place] [address] 04/09/2024 Cristi Foss Inflammatory polyarthropathy M06.4 ; Pain in unspecified joint M25.50 and Other detention (current) drug therapy Z79.899 Assessments Encounter Date Diagnosis (ICD Code) Assessment Notes Treatment Notes Treatment Clinical Notes Section Notes 04/09/2024 Inflammatory polyarthropathy (ICD-10 - M06.4) 04/09/2024 Pain in unspecified joint (ICD-10 - M25.50) 04/09/2024 Other detention (current) drug therapy (ICD-10 - Z79.899) Plan Of Treatment Pending Test Test Name Order Date CBC With Differential/Platelet Hepatic Function Panel (7) 04/09/2024 Creatinine 04/09/2024 Next Appt Details Follow Up: 3 Months, Reason: Progress Notes * Pina REYNAGA KDOB:06/1970 (54 yo F)Acc No.[id number]:04/09/2024 Progress Notes Patient:?Pina REYNAGA Provider:?Cristi Foss MD :1970???Age:54 Y???Sex:Female D ate:04/09/2024 Address:[address] [place], [place] [address] [address] Pcp:Jonathan Amado MD Subjective: * Chief Complaints: * ???4 weeks follow up * HPI: ???Advance Care Planning:? No acute joint swelling. No significant AM stiffness, gelling. No significant rash. No significant bruises. No cough. No SOB. No CP. No F/C/S. No major GI upset. Bowels working. Energy low. Sleep OK. Tolerates meds. Wt. stable. Appetite stable.Pain and stiffness at fingers.No real AM stiffness. Overdue for eye exams. Some pain at knees. GI upset with NSAIDS. no GI upset. * ROS:?Energy OK. Sleep OK . * Medical History:? * Surgical History:?D&C; 07-16Cyst removal; 2210-62-64Byoxecgcpxvs; 5875-08-21Snippmm Surgery; 8713-63-26Ctuq excision; 7828-55-32Mkvwa Surgery; 2021-07-16 * Hospitalization/Major Diagno stic Procedure:? 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 * Medications:?TakingZyrTEC Al lergy 10 MG Tablet take 1 tablet (10 mg) by oral route once daily Oral 1 Leflunomide 20 MG Tablet 1 tablet Orally Once a day , stop date 10/07/2024Medication List reviewed and reconciled with the patientTaking ZyrTEC Allergy 10 MG Tablet take 1 tablet (10 mg) by oral route once daily Oral 1 Taking Leflunomide 20 MG Tablet 1 tablet Orally Once a day , stop date 10/07/2024Medication List reviewed and reconciled with the patient * Allergies:?Cipro: Allergy - Onset Date 07/16/2021iprofloxacin: Allergy - Onset Date 07/16/2021 Objective: * Vitals:?BP:120/78mm Hg, HR:5 8/min, Wt:156lbs, Ht:63in, BMI:27.63Index. * Examination: ???General Examination: ???Physical Examination Constitutional Appearance : well nourished, alert, [...] Gait: gait normal . 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 Plan: * Treatment: * Procedure Codes:? * Follow Up:?3 Months * Billing Information: * Visit Code:? 39958 Office Visit, Est Pt., Level 4. * Procedure Codes:? * Sign off status: Completed true * Provider:?Cristi Foss MD Date:? 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
--- OUTSIDE RECORDS SUMMARY | 2024-10-17 03:11 | XMS_ITS | Encounter Summary ---
Author Organization [facility] Address [address] [place] [address]. [place] [address] [place] [address] Care Team Providers Care Teletype Adjuster Name Role Phone Unavailable Primary Care Provider Unavailabl e Encounter Details Date Type Department Care Team (Late st Contact Info) Description 04/20/1996 [place] [address] , Generic Conversion, Social History Tobacco Use Types Packs/Day Years [...]
--- OUTSIDE RECORDS SUMMARY | 2024-10-17 03:11 | XMS_ITS | Encounter Summary ---
Author Organization [facility] Address [address] [place] [address]. [place] [address] [place] [address] Care Team Providers Care Neurology Technologist Name Role Phone Unavailable Primary Care Provider Unavailabl e Encounter Details Date Type Department Care Team (Latest Contact Info) Description 10/16/2017 10:29 AM RV SERVICE TECHNICIAN - 10/16/2017 11:59 PM [facility] Hospital Encounter [facility] [place] [address] Jim Shelby MD [address] [facility] [address] [place] [address] Discharge Disposition: Home or Self Care (Routine Discharge) Social History Tobacco Use Types Packs/Day Years [...]
--- OUTSIDE RECORDS SUMMARY | 2024-10-17 03:11 | XMS_ITS | Encounter Summary ---
Author Organization [facility] Address [address] [place] [address]. [place] [address] [place] [address] Care Team Providers Care Spring Tacker Name Role Phone Unavailable Primary Care Provider Unavailabl e Encounter Details Date Type Department Care Team (Late st Contact Info) Description 10/16/2017 Orders Only [facility] [address] [place], [place] [id number] Jim Ceron MD [address] [facility] [address] [place] [address] Social History Tobacco Use Types Packs/Day Years [...] Procedure Name Priority Date/Time Associated Diagnosis Comments TISSUE EXAM BY PATHOLOGIST Routine 10/16/2017 12:00 AM ELECTRICAL INSTALLATION SUPERVISOR documented in this encounter Results * TISSUE EXAM BY PATHOLOGIST (10/16/2017 12:00 AM ELECTRICAL INSTALLATION SUPERVISOR) PATHOLOGY ?[facility] ? Department of Pathology ? [address] ? [place], [place] ??[address] ? [id number] ? Pathology Report ? Name: PINA REYNAGA ?Specimen #: [id number] Age: 6 1970 (Age: 47) ?Location: [facility] Sex: F ? Procedure Date: 10/16/2017 Hospital #: [id number] ? Date Received: 10/17/2017 Date Reported: 10/20/2017 Provider: JIM CERON Postoperative Diagnosis: EGD: duodenum normal, rule out celiac; antrum erythema Gross Description: The first specimen is received in formalin (time placed in formalin not given) labeled with the patient's name (Pina Reynaga), brith date and biopsy duodenum. ??The specimen consists of two pieces of soft light to dark burroughs brown tissue each measuring 0.2 cm which are filtered and submitted in toto in one cassette labeled A. The second specimen is received in formalin (time placed in formalin not given) labeled with the patient's name (Pina Reynaga), date and antrum. The specimen consists of two pieces of soft light burroughs brown tissue measuring 0.2 and 0.3 cm which are filtered and submitted in toto in one cassette labeled B. Microscopic Description: A. ??The biopsy of the duodenum shows fragments of duodenal mucosa. ??The villous architecture appears intact. ??No significant increase in intraepithelial lymphocytes is seen. ??Deeper sections are examined. ?? B. ??The biopsy of the stomach shows fragments of gastric mucosa with mild reactive changes of the surface epithelium including mucin depletion. ??Vascular congestion is also noted. ??Inflammation is minimal. ?? Immunohistochemical stain for H. pylori is negative. ??The control slide stains appropriately. FINAL PATHOLOGIC DIAGNOSIS: A. ??SMALL INTESTINE, DUODENUM, BIOPSY: ? DUODENAL MUCOSA WITH NO SIGNIFICANT HISTOLOGIC ABNORMALITIES ? NEGATIVE FOR CELIAC DISEASE B. ??GASTRIC ANTRUM, BIOPSY: ? GASTRIC MUCOSA WITH MILD REACTIVE CHANGES ? IMMUNOHISTOCHEMICAL STAIN FOR H. PYLORI IS NEGATIVE ?? NEAL BATRES ??Pathologist lc/10/18/2017 Electronically Signed Out ? [facility] 10/16/2017 10/17/2017 10: 38 AM ELECTRICAL INSTALLATION SUPERVISOR Comment:DUODENUM, BIOPSY&GAS TRIC ANTRUM, BIOPSY us Jim Ceron MD PATHOLOGY/CYTOLOGY ORDERABL ES Final Result [facility] [address] [place] [address], [place] [phone] documented in this encounter Visit Diagnoses Not on filedocumented in this encounter
--- OUTSIDE RECORDS SUMMARY | 2024-10-17 03:11 | XMS_ITS | Encounter Summary ---
Author Organization [facility] Address [address] [place] [address] Care Team Providers Care Tank Driver Name Role Phone Jonathan Amado MD Primary Care Provider [phone]- [phone] Encounter Details Date Type Department Care Team (Latest Contact Info) Description 04/12/2015 4:09 PM CDT - 04/12/2015 11:59 PM CDT Hospital Encounter [facility] [address] [facility] [address] [place] [address] Grupo Brice MD [address] [facility] [address] [place] [address] Discharge Disposition: Home or Self [...] Comments WOUND CULTURE WITH GRAM STAIN Routine 04/12/2015 3:00 PM CDT Chronic maxillary sinusitis FUNGUS CULTURE, OTHER Routine 04/12/2015 3:00 PM CDT Chronic maxillary sinusitis documented in this encounter Results * (ABNORMAL) FUNGUS CULTURE, OTHER (04/12/2015 3:00 PM CDT) CULTURE Culture positive for Aspergillus species, NOT fumigatus(A) SHERI METHOD AEROBIC CULTURE 05/10/2015 1:57 PM CDT [facility] Sinus SPECIMEN FROM NASAL SINUS / Unknown Collection / Unknown 04/12/2015 3:00 PM CDT 04/12/2015 5:52 PM CDT Grupo Brice MD MICROBIOLOGY - GENER AL ORDERABLES Performing Organization Address [facility] Co de Phone Number [facility] [employer] [facility] CLIA# [id number] [address] [place], [place] [id number] * (ABNORMAL) WOUND CULTURE WITH GRAM STAIN (04/12/2015 3:00 PM CDT) CULTURE 1+ or few Aspergillus species, NOT fumigatus(A) SHERI METHOD AEROBIC CULTURE 04/24/2015 5:02 PM CDT [facility] GRAM STAIN 2+ (Few) WBC 04/24/2015 5:02 PM CDT [facility] GRAM STAIN No organisms observed 04/24/2015 5:02 PM CDT [facility] Sinus SPECIMEN FROM NASAL SINUS / Unknown Collection / Unknown 04/12/2015 3:00 PM CDT 04/12/2015 5:52 PM CDT Grupo Brice MD MICROBIOLOGY - GENER AL ORDERABLES Performing Organization Address [facility] Co de Phone Number [facility] [employer] [facility] CLIA# [id number] [address] [place] [address] documented in this encounter Visit Diagnoses Diagnosis Chronic maxillary sinusitis- Primary documented in this encounter Care Teams Tank Driver Relationship Specialty Start Date End Date Jonathan Amado MD PCP - General Family Practice 04/16/12 documented as of this encounter
--- OUTSIDE RECORDS SUMMARY | 2024-10-17 03:11 | XMS_ITS | Encounter Summary ---
Author Organization [facility] Address [address] [place] [address] Care Team Providers Care Orthotist Prosthetist Name Role Phone Jonathan Amado MD Primary Care Provider +1- [phone] Reason for Visit * Auth/Cert - Closed Specialty Diagnoses / Procedures Referred By Chidi t Referred To Contact Gastroenterology Diagnoses Dysphagia [787.20] Epigastric pain [789.06] Nausea [787.02] Procedures ESOPHAGOGASTRODUODENOSCOP [facility] [address] [place] [address] Referral ID Status Reason Start Date Expiration Date Visits Re quested Visits Authorized [id number] Closed 1 1 Encounter Details Date Type Department Care Team (Latest Contact Info) Description 05/11/2013 10:45 AM CDT - 05/11/2013 11:15 AM CDT Surgery [facility] GI Lab S [facility] [employer] [address] [place] [address] Jim Shelby MD [address] [facility] [address] [place] [address] ESOPHAGOGASTRODUODENOSCOPY Surgery Details Date/Time Status Location OR Service Patient Class Case Class Case Type Trauma Case? 05/11/2013 10:45 AM Posted [facility] GI 06 Gastroenterology Outpatient Elective No Panel 1 Procedure LRB Anes Op Region Wound Class Comments ESOPHAGOGASTRODUODENOSCOPY N/A General Mouth Clean Contaminated-II With gastric/esoph/duoden al bx with possible dilatation Surgeon Surgeon Role Service Panel Jim Shelby MD Primary Gastroenterology 1 documented in this encounter Social History Tobacco Use Types Packs/Day Years [...] Sign Reading Time Taken Comments Blood Pressure 115/66 05/11/2013 10:06 AM CDT Pulse 58 05/11/2013 10:06 AM CDT Temperature 36.5 ??C (97.7 ??F) 05/11/2013 1 0:06 AM CDT Respiratory Rate 20 05/11/2013 10:0 6 AM CDT Oxygen Saturation 100% 05/11/2013 10: 06 AM CDT Inhaled Oxygen Concentration - - Weight 62.5 kg (137 lb 12.8 oz) 013 10:06 AM CDT Height 162.6 cm (5' 4 ) 05/11/2013 10:0 6 AM CDT Body Mass Index 23.65 05/11/2013 10:06 AM CDT documented in this encounter Discharge Instructions * Discharge Instructions* Alicia Callejas RN - 05/11/2013 11:42 AM CDT If you should experience: Severe abdominal pain, chest pain, fever, chills, shortness of breath, inability to swallow, abnormal bleeding or any other concerns following your procedure. Call your physician or come to the Emergency Department. Please follow these instructions: 1. During your procedure you may have received sedation. You should rest at home for the remainder of the day. You should NOT drive or perform any activities that require a completely alert mind during this recovery period. Alcohol should NOT be used for at least 24 hours. 2. Following your upper endoscopy, you may have a sore throat. Try gargling with warm water or use Chloraseptic lozenges as needed. Once you are fully alert and feel you can swallow without difficulty, you may have a light meal. You may then progress on to your usual diet, unless otherwise instructed by your physician. 3. This includes your current and historical medications prescribed by your physician (s). Continue your current medications and any newly prescribed during this visit. If you have questions, please call the physician who prescribed the medication. I have received a copy of the Discharge instructions provided with the After Visit Summary, and understand the plan of care. Patient or Responsible Alliance Party Signature Date/Time RN Signature Date/Time documented in this encounter Medications at Time of Discharge [...] by mouth. documented as of this encounter H&P Notes * Jim Shelby MD - 05/11/2013 11:33 AM CDT HPI: 43 yo F was referred for evaluation of dysphagia. Chart, past medical history, medications and social history have been reviewed. VS: Stable, see nurse's notes. EXAM: Lungs: clear. Heart: Regular rate and rhythm. Abdomen: soft, mild epigastric tenderness. Extr: without clubbing, cyanosis, edema. IMPRESSION: Dysphagia after liquids and only occasionally after solids. PLAN: EGD and dilatation if stricture is detected. documented in this encounter Procedure Notes * Jim Shelby MD - 05/11/2013 11:58 AM CDTAssociated Order(s): GI REPORT [facility] Endoscopy Patient Name: Pina Reynaga Procedure Date No Time: 05/11/2013 Date of : 1970 Admit Type: Outpatient Attending MD: Jim Shelby MD Procedure: Upper GI endoscopy [place]iders: [place] [address] [facility] [address] [place] [address] Referring MD: Requesting Provider: Jonathan Amado MD Medicines: Monitored Anesthesia Care Complications: No immediate complications. Procedure: Informed consent was obtained for the procedure, including moderate sedation after risks were discussed. Based on the pre-procedure assessment, including review of the patient?s medical history, medications, allergies, and review of systems, the patient was deemed to be an appropriate candidate for sedation. A timeout was performed. Continuous ECG monitoring, pulse oximetry, blood pressure monitoring, and direct observation were performed. The Endoscope was introduced through the mouth, and advanced to the second part of duodenum. Estimated Blood Loss: Estimated blood loss: none. Findings: The esophagus was normal. Tertiary waves were present. There was no evidence of stricture. No intervention was performed.The stomach was normal. The examined duodenum was normal. Impression: - Normal esophagus. - Normal stomach. - Normal examined duodenum. Recommendation: - Continue present diet and medications. - Avoid cold drinks. - Follow-up with our office as needed. Jim Shelby MD 05/11/2013 11:58 AM This report has been signed electronically. Number of Addenda: [phone] [facility]; [place] [address] documented in this encounter OR Notes * Anesthesia Post Evaluation - More Holt AA-C - 05/11/2013 11:45 AM CDT Phase II [facility]est[facility] Modified Cooper Score Patient seen and evaluated: [facility] Modified Cooper Score: Score: 20 (05/11/13 1142) COMMENT No apparent Anesthesia related complications } RESPIRATORY FUNCTION: Respiration: able to breath and cough freely (05/11/13 1142) [2=able to breathe and cough freely, 1=dyspnea, limited breathing or tachypnea, 0=apnea or mechanicventilator] O2 Saturation: able to maintain O2 saturation greater than 92% on room air (05/11/13 1142) [2=able to maintain O2 saturation greater than 92% on room air, 1=needs O2 inhalation to maintain O2 saturation greater than 90%, 0=O2 saturation less than 90% even with O2 supplement] Resp: 18 (05/11/13 114)SpO2: 100 % (05/11/13 1141) CARDIOVASCULAR FUNCTION: BP: 95/63 mmHg (05/11/13 114) Circulation: BP within 20% of preanesthetic level (05/11/13 114) [2=BP within 20% of preanesthetic level, 1=BP within 20-49% of preanesthetic level, 0=BP within 50%of preanesthetic level] MENTAL STATUS, NEURO, ACTIVITY: Consciousness: fully awake (05/11/13 114) [2=fully awake, 1=arousable on calling, 0=not responding] Activity: able to move 4 extremities voluntarily or on command (05/11/13 114) [2=able to move 4 extremities voluntarily or on command, 1=able to move 2 extremities voluntarily or on command, 0=unable to move extremities voluntarily or on command] Ambulation: able to stand up and walk straight, on ordered bedrest, or performing at patient's prior level of function (05/11/13 114) [2=able to stand up and walk straight, on ordered bedrest, or performing at patient's prior level of function, 1=vertigo when erect, 0=dizziness when supine] TEMPERATURE: Temp: 97.1 ??F (36.2 ??C) (05/11/13 1128) PAIN: Presence of Pain: denies pain/discomfort (05/11/13 1006) Pain: pain free (05/11/13 114) [2=pain free, 1=pain handled by oral medication, 0=pain requiring parenteral medication] NAUSEA AND VOMITING: Fasting/Feeding: able to drink fluids, ice chips or NPO (05/11/13 114) [2=able to drink fluids, ice chips or NPO, 1=nauseated, 0=nausea and vomiting] POSTOPERATIVE HYDRATION: No intake or output data in the 24 hours ending 05/11/13 1145 Urine Output: has voided, adequate urine output per device, or not applicable (05/11/13 1142) [2=has voided, adequate urine output per device, or not applicable, 1=unable to void but comfortable, 0=unable to void and uncomfortable] WOUND: Dressing: dry and clean or not applicable (05/11/13 1142) [2=dry and clean or not aplicable, 1=wet, marked and not increasing, 0=growing area of wetness] MERARY Polo 05/11/2013 11:45 AM * OR Anesthesia - Masood Koenig MD - 05/11/2013 10:05 AM CDT GI Lab Pre-Anesthesia Evaluation - Long Form 05/11/2013 10:05 AM Name: Pina Reynaga Age: 43 y.o. Sex: unknown CSN: [id number] Procedure: Procedure(s): ESOPHAGOGASTRODUODENOSCOPY Surgeons/Assistants: Surgeon(s) and Role: * Jim Shelby MD - Primary Allergies Allergen Reactions ??? Ciprofloxacin Muscle Pain ??? Compazine (Prochlorperazine) Anxiety ??? Doxycycline Unknown ??? Iodinated Contrast Media - Iv Dye Unknown Sneezing, shortness of breath, body aches ??? Morphine Nausea and Vomiting ??? Other Drug (Unclassified Drug) Cough Prescriptions prior to admission Medication Sig Dispense Refill ??? fexofenadine (JOHNATHAN) 180 mg Oral tablet Take 180 mg by mouth daily. ??? cholecalciferol, vitamin D3, 50,000 unit Oral Cap Take 1 Cap by mouth daily. ??? RABEprazole (ACIPHEX) 20 mg Oral TbEC Take 20 mg by mouth daily. ??? ASPIRIN/ACETAMINOPHEN/CAFFEINE (EXCEDRIN MIGRAINE ORAL) Take by mouth. ??? SIMETHICONE (GAS-X ORAL) Take by mouth. No prescriptions prior to admission Current Facility-Administered Medications Medication Dose Route Frequency Provider Last Rate Last Dose ??? lactated ringers solution IV Pre-Proc Continuous Jim Shelby MD There are no active problems to display for this patient. Past Medical History Diagnosis Date ??? GERD (gastroesophageal reflux disease) Past Surgical History Procedure Laterality Date ??? Hx ercp 2006 ??? Hx cholecystectomy ??? Hx hysterectomy ??? Hx tonsillectomy History Substance Use Topics ??? Smoking status: Never Smoker ??? Smokeless tobacco: Not on file ??? Alcohol Use: Yes rarely Family History Problem Relation Age of Onset ??? Colon Cancer Other Previous Anesthesia Problems/Concerns: No anesthesia problems/complications Review of Systems Cardiovascular: negative Respiratory: positive for dyspnea on exertion, negative for cough Gastroenterology: positive for HPI, negative for nausea Bowel Prep:No PHYSICAL EXAM There were no vitals taken for this visit. Weight: Height: Ht Readings from Last 1 Encounters: No data found for Ht BMI: There is no height or weight on file to calculate BMI. Airway: normal range of motion: Airway Class: II (soft palate, uvula, fauces visible); None Lungs: clear to auscultation bilaterally, normal respiratory effort Heart: regular rate and rhythm, S1, S2 normal, no murmur, click, rub or gallop Neuro: alert, oriented x 3, no defects noted in general exam. Vascular Access: Peripheral Line LABS No results found for this basename: WBC, MANUALWBC, HGB, HGBPOC, HCT, HCTPOC, PLT, MCV No results found for this basename: NA, K, CL, CO2, CA, BUN, CREAT, GLUCOSE, ANIONGAP, BCRATIO No results found for this basename: INR, PT, PROTIMEPOC No results found for this basename: HCGURPOC, HCGQUALUR, HCGQUAL, HCGQUANT, HCGINTACT No results found for this basename: glucpoc EKG: EKG not indicated today Other Studies/Considerations: None Postprocedure pain management discussed yes Smoking/Tobacco Counseling: None Recommendations: None ASA Physical Status: ASA 2 - Patient with mild systemic disease with no functional limitations I have seen and examined this patient and confirm that all data is current and accurate. Yes Choice of Anesthesia/Anesthesia Plan: Proceed, General and Routine Monitoring I have discussed the anesthetic options and the risks/benefits with the patient/family. Questions have been solicited and answered. Yes Masood Koenig MD documented in this encounter Plan of Treatment Not on file documented as of this encounter Procedures Procedure Name Priority Date/Time Associated Diagnosis Comments GI REPORT 05/11/2013 11:59 AM CDT ESOPHAGOGASTRODUODENOSCOPY 05/11 11:11 AM CDT Dysphagia Epigastric pain Nausea documented in this encounter Results * GI REPORT (05/11/2013 11:59 AM CDT) Narrative Transcriptions Jim Shelby MD - 05/11/2013 11:58 AM CDT [facility] Endoscopy Patient Name: Pina Reynaga Procedure Date No Time: 05/11/2013 Date of : 1970 Admit Type: Outpatient Attending MD: Jim Shelby MD Procedure: Upper GI endoscopy [place]: [place] [address] [place] [address] Referring MD: Requesting Provider: Jonathan Amado MD Medicines: Monitored Anesthesia Care Complications: No immediate complications. Procedure: Informed consent was obtained for the procedure, including moderate sedation after risks were discussed. Based on the pre-procedure assessment, including review of the patient?s medical history, medications, allergies, and review of systems, the patient was deemed to be an appropriate candidate for sedation. A timeout was performed. Continuous ECG monitoring, pulse oximetry, blood pressure monitoring, and direct observation were performed. The Endoscope was introduced through the mouth, and advanced to the second part of duodenum. Estimated Blood Loss: Estimated blood loss: none. Findings: The esophagus was normal. Tertiary waves were present. There was no evidence of stricture. No intervention was performed.The stomach was normal. The examined duodenum was normal. Impression: - Normal esophagus. - Normal stomach. - Normal examined duodenum. Recommendation: - Continue present diet and medications. - Avoid cold drinks. - Follow-up with our office as needed. Jim Shelby MD 05/11/2013 11:58 AM This report has been signed electronically. Number of Addenda: [phone]; [place] [address] Jim Shelby MD GI PROCEDURE ORDERA BLES documented in this encounter Visit Diagnoses Diagnosis Dysphagia Dysphagia, unspecified Epigastric pain Abdominal pain, epigastric Nausea Nausea alone documented in this encounter Administered Medications Inactive Administered Medications - up to 3 most recent administrations Medication Order MAR Action Action Date Dose Rate Site lactated ringers solution IV, at 125 mL/hr, PRE-PROCEDURE CONTINUOUS, Starting on Fri05/11/13 at 1000, Until Fri05/11/13 at 1424, Routine, Pre-Procedure New Bag 05/11/2013 10:21 AM CDT 1 25 mL/hr documented in this encounter Active and Recently Administered Medications Times are shown in CDT. Continuous Medication Order 05/09/2013 05/10/2013 05/11/2013 lactated ringers solution (CANCELED) IV, at 125 mL/hr, PRE-PROCEDURE CONTINUOUS, Starting on Fri05/11/13 at 1000, Until Fri05/11/13 at 1424, Routine, Pre-Procedure 1021 (New Bag - Prov ider: Jennifer Green RN)1147 (Stopped - Provider: Makayla Kunz RN) documented in this encounter Care Teams Orthotist Prosthetist Relationship Specialty Start Date End Date Jonathan Amado MD PCP - General Family Practice 04/16/12 documented as of this encounter
--- OUTSIDE RECORDS SUMMARY | 2024-10-17 03:11 | XMS_ITS | Encounter Summary ---
Author Organization [facility] Address [address] [place] [address] Care Team Providers Care Nurse Practitioner Manager Name Role Phone Unavailable Primary Care Provider Unavailabl e Encounter Details Date Type Department Care Team (Late st Contact Info) Description 08/23/2020 12:00 PM CERAMIC RESEARCH ENGINEER Rapid Evaluation [place] [facility] Community Testing [facility] [address] [place] [address] Social History Tobacco Use Types Packs/Day Years [...]
--- OUTSIDE RECORDS SUMMARY | 2024-10-17 03:11 | XMS_ITS | Encounter Summary ---
Author Organization [facility] Address [address] [place] [address] Care Team Providers Care Label Cutter Name Role Phone Jonathan Amado MD Primary Care Provider [phone]- [phone] Encounter Details Date Type Department Care Team (Latest Contact Info) Description 06/24/2013 7:38 PM CDT - 06/24/2013 11:59 PM T Hospital Encounter [facility] Support Services S [facility] [address] [place] [address] Grupo Brice MD [address] [facility] [address] [place] [address] Discharge Disposition: Home or Self [...] Comments WOUND CULTURE WITH GRAM STAIN Routine 06/24/2013 9:45 PM CDT Unspecified sinusitis (chronic) FUNGUS STAIN Routine 06/24/2013 9:45 PM CDT Unspecified sinusitis (chronic) FUNGUS CULTURE, OTHER Routine 06/24/2013 9:45 PM CDT Unspecified sinusitis (chronic) documented in this encounter Results * FUNGUS STAIN (06/24/2013 9:45 PM CDT) FINAL MICRO REPORT Refer to culture for smear result. [facility] [employer] [facility] Specimen of unknown material (specimen) (Drainage) 06/24/2013 9:45 PM CDT 06/24/2013 9:51 PM CDT Comment:SINUS/ SINUS, MAXILL MANN Narrative [facility] [employer] [facility] - 06/24/2013 10:18 PM CDT Sinus maxillary Grupo Brice MD MICROBIOLOGY - GENER AL ORDERABLES Performing Organization Address City/[facility]/ZIP Co de Phone Number [facility] [employer] [facility] CLIA# [id number] [address] [facility] [place] [address] * (ABNORMAL) FUNGUS CULTURE, OTHER (06/24/2013 9:45 PM CDT) FINAL MICRO REPORT Aspergillus species, not fumigatus isolated.(A) [facility] [employer] [facility] FUNGUS STAIN No mycotic elements seen(A) [facility] [employer] [facility] Specimen from wound (specimen) ENTIRE NOSE / Unknown 06/24/2013 9:45 PM CDT 06/24/2013 9:50 PM CDT Comment:SINUS/ SINUS, MAXILL MANN Grupo Brice MD MICROBIOLOGY - GENER AL ORDERABLES [facility] [employer] [facility] CLIA# [id number] [address] [place] [address] * (ABNORMAL) WOUND CULTURE WITH GRAM STAIN (06/24/2013 9:45 PM CDT) GRAM STAIN Few Gram Negative Rods Few WBC's seen(A) [facility] FINAL MICRO REPORT Heavy growth Pseudomonas stutzeri Moderate growth Aspergillus species, not fumigatus Light growth normal upper respiratory mayito(A) [facility] SUSCEPTIBILITY PERFORMED ON PSEUDOMONAS STUTZERI(A) [facility] Specimen from nasal sinus (specimen) ENTIRE MAXILLARY SINUS / Unknown 06/24/2013 9:45 PM CDT 06/24/2013 9:51 PM CDT Comment:SINUS/ SINUS, MAXILL MANN Narrative Organism Antibiotic Method Susceptibility Pseudomonas stutzeri PIPERACILLIN/ TAZOBACTAM CHERELLE MCG/ ML <=4: Susceptible Pseudomonas stutzeri CEFTAZIDIME CHERELLE MCG/ML <=1: Susceptible Pseudomonas stutzeri CEFEPIME CHERELLE MCG/ML <=1: Susceptible Pseudomonas stutzeri GENTAMICIN CHERELLE MCG/ML <=1: Susceptible Pseudomonas stutzeri CIPROFLOXACIN CHERELLE MCG/ML <=0.25: Susceptible Pseudomonas stutzeri TRIMETHOPRIM/ SULFAMETHOXAZOLE FL C MCG/ML <=20: Susceptible Grupo Brice MD MICROBIOLOGY - GENER AL ORDERABLES [facility]# [id number] [address] [place] [address] documented in this encounter Visit Diagnoses Diagnosis Unspecified sinusitis (chronic)- Primary documented in this encounter Care Teams Label Cutter Relationship Specialty Start Date End Date Jonathan Amado MD PCP - General Family Practice 04/16/12 documented as of this encounter
--- OUTSIDE RECORDS SUMMARY | 2024-10-17 03:11 | XMS_ITS | Encounter Summary ---
Author Organization [employer] Address [address] [place] [address] Care Team Providers Care Nanofabrication Specialist Name Role Phone Jonathan Amado MD Primary Care Provider +1- [phone] Encounter Details Date Type Department Care Team (Latest Contact Info) Description 04/16/2012 5:30 PM CDT - 04/16/2012 11:59 PM CDT Hospital Encounter [facility] Support Services S [facility] [address] [place] [address] Grupo Brice MD [address] [facility] [address] [place] [address] Unspecified sinusitis (chronic) Discharge Disposition: Home or Self Care Social [...] Comments WOUND CULTURE WITH GRAM STAIN Routine 04/16/2012 7:55 PM CDT Unspecified sinusitis (chronic) FUNGUS CULTURE, OTHER Routine 04/16/2012 7:55 PM CDT Unspecified sinusitis (chronic) documented in this encounter Results * (ABNORMAL) FUNGUS CULTURE, OTHER (04/16/2012 7:55 PM CDT) FINAL MICRO REPORT Aspergillus niger isolated.(A) [employer] [facility] Specimen of unknown material (specimen) ENTIRE MAXILLARY SINUS / Unknown 04/16/2012 7:55 PM CDT 04/16/2012 8:33 PM CDT Comment:SINUS Narrative [facility] - 05/12/2012 7:30 AM CDT Left maxillary sinus Fax to:[phone] Grupo Brice MD MICROBIOLOGY - GENER AL ORDERABLES [facility] CLIA# [id number] [address] [place] [address] * (ABNORMAL) WOUND CULTURE WITH GRAM STAIN (04/16/2012 7:55 PM CDT) GRAM STAIN Few Gram Positive Rods Rare WBC's seen(A) [facility] FINAL MICRO REPORT Light growth Enterobacter cloacae complex Light growth Enterobacter cloacae complex #2 Moderate growth normal upper respiratory mayito -- Faxed report(s): ([phone]) 04/20/12 9:58:45(A) [facility] SUSCEPTIBILITY PERFORMED ON Enterobacter cloacae complex(A) [facility] SUSCEPTIBILITY PERFORMED ON Enterobacter cloacae complex(A) [facility] Specimen from nasal sinus (specimen) ENTIRE NOSE / Unknown 04/16/2012 7:55 PM CDT 04/16/2012 8:33 PM CDT Comment:SINUS/ NOSE Narrative [facility] - 04/20/2012 9:58 AM CDT Left maxillary sinus Fax to:[phone] Organism Antibiotic Method Susceptibility Enterobacter cloacae complex PIPERACILLIN/ TAZOBACTAM CHERELLE MCG/ML 3: Susceptible Comment:Piperacillin /Tazobactam was performed by E-test (ET) method. Enterobacter cloacae complex CEFAZOLIN CHERELLE MCG/ML >=64: Resistant Enterobacter cloacae complex CEFOXITIN CHERELLE MCG/ML >=64: Resistant Enterobacter cloacae complex CEFTAZIDIME CHERELLE MCG/ML <=1: Susceptible Enterobacter cloacae complex CEFTRIAXONE CHERELLE MCG/ML <=1: Susceptible Enterobacter cloacae complex GENTAMICIN CHERELLE MCG/ML <=1: Susceptible Enterobacter cloacae complex CIPROFLOXACIN CHERELLE MCG/ML <=0.25: Susceptible Enterobacter cloacae complex TRIMETHOPRIM/ SULFAMETHOXAZOLE CHERELLE MCG/ML <=20: Susceptible Enterobacter cloacae complex PIPERACILLIN/ TAZOBACTAM CHERELLE MCG/ML 2: Susceptible Comment:Piperacillin /Tazobactam was performed by E-test (ET) method. Enterobacter cloacae complex CEFAZOLIN CHERELLE MCG/ML >=64: Resistant Enterobacter cloacae complex CEFOXITIN CHERELLE MCG/ML >=64: Resistant Enterobacter cloacae complex CEFTAZIDIME CHERELLE MCG/ML <=1: Susceptible Enterobacter cloacae complex CEFTRIAXONE CHERELLE MCG/ML <=1: Susceptible Enterobacter cloacae complex GENTAMICIN CHERELLE MCG/ML <=1: Susceptible Enterobacter cloacae complex CIPROFLOXACIN CHERELLE MCG/ML <=0.25: Susceptible Enterobacter cloacae complex TRIMETHOPRIM/ SULFAMETHOXAZOLE CHERELLE MCG/ML <=20: Susceptible Grupo Brice MD MICROBIOLOGY - [facility] ORDERABLES Performing Organization Address City/State/[facility] Co de Phone Number [facility]# [id number] [address] [place] [address] documented in this encounter Visit Diagnoses Diagnosis Unspecified sinusitis (chronic) documented in this encounter Care Teams Nanofabrication Specialist Relationship Specialty Start Date End Date Jonathan Amado MD PCP - General Family Practice 04/16/12 documented as of this encounter
--- OUTSIDE RECORDS SUMMARY | 2024-10-17 03:11 | XMS_ITS | Encounter Summary ---
Author Organization [facility] Address 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 Name Role Phone Jonathan Amado MD Primary Care Provider +1- [phone] Reason for Visit * Auth/Cert - Closed Specialty Diagnoses / Procedures Referred By Chidi t Referred To Contact Gastroenterology Diagnoses Dysphagia [787.20] Epigastric pain [789.06] Nausea [787.02] Procedures ESOPHAGOGASTRODUODENOSCOP [facility] [address] [place] [address] Referral ID Status Reason Start Date Expiration Date Visits Re quested Visits Authorized [id number] Closed 1 1 Encounter Details Date Type Department Care Team (Latest Contact Info) Description 05/11/2013 9:26 AM CDT - 05/11/2013 12:24 PM T [facility] [address] [place] [address] Jim Shelby MD [address] [facility] [address] [place] [address] Discharge Disposition: Home or Self Care Social [...] the plan of care. Patient or Responsible Constitution Party Signature Date/Time RN Signature Date/Time documented [...] 05/11/2013 11:58 AM CDTAssociated Order(s): GI REPORT [facility] Patient Name: Pina Reynaga Procedure Date No Time: 05/11/2013 Date of : 1970 Admit Type: Outpatient Attending MD: Jim Shelby MD Procedure: Upper GI endoscopy [place]iders: [place] [address] [facility] [address] [place] [address] Referring MD: Requesting Provider: Jonathan Amado MD [...] signed electronically. Number of Addenda: [address]; [place] [address] documented in this encounter OR Notes * Anesthesia Post Evaluation - [facility] - 05/11/2013 11:45 AM CDT Phase II Postanesthesia Evaluation Including [facility] Modified Cooper Score Patient seen and evaluated: Yrisy Modified Cooper Score: Score: 20 (05/11/13 114) COMMENT No apparent Anesthesia related complications } RESPIRATORY FUNCTION: Respiration: able to breath and cough freely (05/11/13 114) [2=able to breathe and cough freely, 1=dyspnea, limited breathing or tachypnea, 0=apnea or mechanicventilator] O2 Saturation: able to maintain O2 saturation greater than 92% on room air (05/11/13 114) [2=able to maintain O2 saturation greater than 92% on room air, 1=needs O2 inhalation to maintain O2 saturation greater than 90%, 0=O2 saturation less than 90% even with O2 supplement] Resp: 18 (05/11/13 1141)SpO2: 100 % (05/11/13 1141) CARDIOVASCULAR FUNCTION: BP: 95/63 mmHg (05/11/13 1141) Circulation: BP within 20% of preanesthetic level (05/11/13 1142) [2=BP within 20% of preanesthetic level, 1=BP within 20-49% of preanesthetic level, 0=BP within 50%of preanesthetic level] MENTAL STATUS, NEURO, ACTIVITY: Consciousness: fully awake (05/11/13 1142) [2=fully awake, 1=arousable on calling, 0=not responding] [...] drink fluids, ice chips or NPO (05/11/13 1142) [2=able to drink fluids, ice chips or NPO, 1=nauseated, 0=nausea and vomiting] POSTOPERATIVE HYDRATION: No intake or output data in the 24 hours ending 05/11/13 1145 Urine Output: has voided, adequate urine output per device, or not applicable (05/11/13 114) [2=has voided, adequate urine output per device, [...] Reynaga Age: 43 y.o. Sex: unknown CSN: [id number] Procedure: Procedure(s): ESOPHAGOGASTRODUODENOSCOPY Surgeons/Assistants: Surgeon(s) and Role: [...] Shelby MD - 05/11/2013 11:58 AM CDT [facility] Patient Name: Pina Reynaga Procedure Date No Time: 05/11/2013 Date of : 1970 Admit Type: Outpatient Attending MD: Jim Shelby MD Procedure: Upper GI endoscopy [place]iders: [place] [address] [facility] [address] [place] [address] Referring MD: Requesting Provider: Jonathan Amado MD [...] electronically. Number of Addenda: [address]; [place] [address] Jim Shelby MD GI PROCEDURE ORDERA BLES documented in this encounter Visit Diagnoses Not on filedocumented in this encounter Administered Medications Inactive Administered [...] RN) documented in this encounter Care Teams Power Plant Technician Relationship Specialty Start Date End Date Jonathan Amado MD PCP - General Family Practice 04/16/12 documented as of this encounter
--- OUTSIDE RECORDS SUMMARY | 2024-10-17 03:11 | XMS_ITS | Encounter Summary ---
Author Organization [facility] Address [address] [place] [address] Care Team Providers Care Home Management Supervisor Name Role Phone Unavailable Primary Care Provider Unavailabl e Encounter Details Date Type Department Care Team (Late st Contact Info) Description 11/11/2020 Lab Requisition [facility] Community Testing [facility] [address] [place] [address] Tereso Cruz MD [address] [place] [address] [place] [address] Social History Tobacco Use Types Packs/Day Years [...] Diagnosis Comments SARS-COV-2 PCR [facility] ONLY Routine 11/11/2020 12:59 PM PRACTICE BUSINESS ASST documented in this encounter Visit Diagnoses Not on filedocumented in this encounter
--- OUTSIDE RECORDS SUMMARY | 2024-10-17 03:12 | XMS_ITS | Clinical Summary ---
Author Organization [facility] Address [address] [place] [address] Care Team Providers Care Compressor Operator Adjuster Name Role Phone Jonathan Amado MD Primary Care Provider [phone] Jim Shelby MD Unavailable Allergies Active Allergy Reactions Criticality Noted Date Comments Ciprofloxacin Rash,Muscle pain Medium 04/24/2012 Doxycycline Rash,Unknown Medium 04/24/2012 Gabapentin Headache Low 05/29/2019 Iodinated Contrast Media Muscle pain,Anaphylaxis,O ther (See comments) High 10/08/2011 Sneezing, shortness of breath, body aches Other reaction(s): Myalgias And joint pain after Tenderness at infusion site Lactose Unknown 08/25/2023 lactose intolorent. Levofloxacin Rash Medium 04/24/2012 Metrizamide Unknown 10/08/2011 Mold Unknown 08/25/2023 mold - allergys Morphine Unknown,Nausea And Vomiting 10/08/2011 Prochlorperazine Other (See comments),Anxiety Low 04/09/2012 Anxiety and wild Rifampin Unknown 08/25/2023 stomach upset Sulfa (Sulfonamide Antibiotics) Other (See comments),Rash Medium 04/24/2012 Sulfamethoxazole-Trimethop rim Rash,Urticaria Medium 06/24/2013 Sulfasalazine Rash Medium 04/24/2012 Body aches [place] Pollen-Short Ragweed Unknown 01/28/2023 ragweed - allergy Medications cetirizine (ZyrTEC) 10 mg tablet Take 1 tablet (10 mg total) by mouth daily Active acetaminophen (TYLENOL) 325 mg tablet Take 2 tablets (650 mg total) by mouth every 8 (eight) hours 30 tablet 9 Active tobramycin, bulk, 900 mcg/mg (not less than, CARE HOME) powder Add 1 capsule of 20mg to 240ml saline (patient may mix own saline). Irrigate half in each nostril twice daily for 30 days. 9 Active triamcinolone (KENALOG) 0.1 % cream APPLY TO AFFECTED AREA(S) ON HANDS TWICE A DAY NEEDED 0 Active EPINEPHrine 0.3 mg/0.3 mL auto-injection syringe Inject 0.3 mL (0.3 mg total) into the muscle as instructed as needed 9 Active estradioL (Estrace) 0.01 % (0.1 mg/gram) vaginal creamIndicatio ns:Atrophy of Vulva Insert 2 g into the vagina 2 (two) times a week 42.5 g 2 2 Active albuterol HFA (PROVENTIL HFA,VENTOLIN HFA,PROAIR HFA) 90 mcg/actuation inhaler INHALE 2 PUFFS INHALATION ROUTE EVERY 4 HOURS NEEDED Active azelastine 205.5 mcg (0.15 %) spray,non-aero flaco Administer 0.3 mL (2 sprays total) into affected nostril(s) 2 (two) times a day 3 Active ibandronate (BONIVA) 150 mg tablet Take 1 tablet (150 mg total) by mouth every 30 (thirty) days Take in AM with glass of water prior to food, don't lie down for 30 minutes. 1 tablet 3 3 Active ergocalciferol (VITAMIN D) 50,000 unit capsule Take 1 capsule (50,000 Units total) by mouth once a week Take 1 capsule every 7 days for 8 weeks 8 capsule 4 11/26/19 25 Active ergocalciferol (VITAMIN D) 50,000 unit capsule Take 1 capsule (50,000 Units total) by mouth once a week Take 1 capsule every 7 days for 8 weeks 8 capsule 3 09/27/20 24 Discontinu ed(Reorder ) Active Problems Problem Noted Date Diagnosed Date Chronic midline thoracic back pain 08/25/2023 Premature menopause 07/23/2022 Postmenopausal osteoporosis 07/22/2022 Diarrhea 03/31/2020 Flatulence, eructation and gas pain 03/31/2020 Spasm of sphincter of Oddi 03/31/2020 Generalized abdominal pain 03/31/2020 Lower abdominal pain 03/31/2020 Patellofemoral pain syndrome of right knee 12/23 Anterior knee pain, right 12/23/2019 Pelvic floor dysfunction in female 12/13/2019 Mixed stress and urge urinary incontinence 12/12 Vaginal atrophy 12/13/2019 Epigastric abdominal pain 05/05/2019 Nausea 05/05/2019 History of stomach ulcers 05/05/2019 Gastroesophageal reflux disease with esophagitis 05/05/2019 Abdominal pain 03/11/2019 Overview (04/21/2019): Added automatically from request for surgery [id number] Elevated CK 03/01/2019 Urticaria 03/01/2019 Memory loss 06/26/2018 Fatigue 06/26/2018 Well woman exam with routine gynecological exam 06/09/2018 Dysuria 06/09/2018 Chest pain 06/09/2018 Breast calcifications 05/19/2017 Pain in left knee 01/24/2017 Myalgia 01/24/2017 Allergic rhinitis 07/23/2016 Overview (06/09/2018): Overview: ICD-10 update 2015 Pain in female pelvis 05/07/2016 Urinary urgency 05/07/2016 Fibromyalgia 03/06/2016 Pain in joint 02/05/2016 Other specified abnormal immunological findings in serum 02/05/2016 Other muscle spasm 02/05/2016 Arthritis 07/18/2015 Positive antinuclear antibody 07/12/2015 Mid back pain 03/16/2015 Prepatellar bursitis 08/01/2014 Chronic frontal sinusitis 03/10/2014 Chronic sinusitis 10/08/2011 Encounters Date Type Department Care Team Description 09/27/2024 12:50 PM TEST DESK SUPERVISOR Lab [facility] [address] [place] [id number] Postmenopausal osteoporosis 09/27/2024 10:20 AM TEST DESK SUPERVISOR Office Visit [facility] [address] [place] [address] [place] [address] Bryant Yun MD Postmenopausal osteoporosis (Primary Dx); Chronic midline thoracic back pain 09/27/2024 9:50 AM TEST DESK SUPERVISOR Clinical Support [facility] [address] [place] [address] 5th [place] [address] [place] [id number] Postmenopausal osteoporosis 09/27/[address]th [place] [address] [place] [address] Bryant Yun MD Treatment Plan Update ([facility]) 08/31/2024 4:30 PM TEST DESK SUPERVISOR Office Visit [place] [address] [facility] [facility] [address] [place] [address] [place] [address] Daniel Ellis MD Aphasia (Primary Dx) from Last 3 Months Immunizations Name Administration Dates Next Due Influenza, Quadrivalent, Rec ombinant, Egg Free, Preservative Free, Intramuscular 08/16/2021,09/17/2019 Influenza, Quadrivalent, Spl it, Preservative Free, Intramuscular 07/23/2018 Influenza, Trivalent, Preservative Free, Intramu scular 07/25/2017 Influenza, Unspecified 07/03/2020 Pneumococcal Polysaccharide PPV23 06/29/2020,02/2012 TD Preservative Free 10/17/2011 Tdap 06/22/2018,10/29/2017 Surgical History Surgery Date Site/Laterality Comments CO DILATION & CURETTAGE DX&/THER NONOBSTETRIC BLADDER SURGERY 10/13/2002 - 10/12/2003 SINUS SURGERY LASIK CHOLECYSTECTOMY COLONOSCOPY ERCP In 2015 and again in April of 2019-sphincterotomies and stenting-dual sphincterotomies in April and dual duct stenting in April UPPER GASTROINTESTINAL ENDOSCOPY HYSTEROSCOPY DIAGNOSTIC LAPAROSCOPY 10/13/1998 - 10/12/1999 TONSILLECTOMY HYSTERECTOMY 10/13/2001 - 10/12/2002 OOPHORECTOMY 10/13/1999 - 10/12/2000 Left OOPHORECTOMY 10/13/2010 - 10/12/2011 Right ERCP W/ SPHICTEROTOMY OVARIAN CYSTECTOMY Medical History Medical History Date Comments Patellar tendinitis Cervicalgia GERD (gastroesophageal reflux disease) Irritable bowel syndrome Gastric ulcer Chronic low back pain Sciatica Coccygeal pain Duodenal papillary stenosis Osteoarthritis of knee Quadriceps tendinitis PUD (peptic ulcer disease) Fibromyalgia Hiatal hernia Migraines MRSA (methicillin resistant Staphylococcus aureu s) Osteoporosis Pneumonia Allergic rhinitis Urinary tract infection 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 Family History Medical History Relation Name Comments Hypertension Father Family history of hypertension - (Added by TW Conv) Breast cancer Maternal Grandmother Family history of malignant neoplasm of breast - (Added by TW Conv) Osteoporosis Maternal Grandmother Family history of osteoporosis - (Added by TW Conv) Ovarian cancer Maternal Grandmother Famil y history of ovarian cancer - (Added by TW Conv) Arthritis Mother Family history of arthritis - (Added by TW Conv) Dementia Mother Hypertension Mother Family history of hypertension - (Added by TW Conv) Osteoporosis Mother Family history of osteoporosis - (Added by TW Conv) Breast cancer Mother's Sister Family hist ory of malignant neoplasm of breast - (Added by TW Conv) Hypertension Paternal Grandmother Family history of hypertension - (Added by TW Conv) Broken bones Neg Hx Hip fracture Neg Hx Kyphosis Neg Hx Scoliosis Neg Hx Relation Name Status Comments Father Alive Maternal Grandmother Mother Alive Mother's Sister Paternal Grandmother Social History Tobacco Use Types Packs/Day Years Used Date Smoking Tobacco: Never Smokeless Tobacco: Never Tobacco Cessation:Counseling Given: Not Answered Alcohol Use Standard Drinks/Week Comments Never 0 (1 standard drink = 0.6 oz pur e alcohol) Humiliation, Afraid, Rape, and Kick questionnair e Answer Date Recorded Within the last year, have y ou been afraid of your partner or ex-partner? No 12/13/2019 Within the last year, have y ou been humiliated or emotionally abused in other ways by your partner or ex-partner? No Within the last year, have y ou been kicked, hit, slapped, or otherwise physically hurt by your partner or ex-partner? No 12/13/2019 Within the last year, have y ou been raped or forced to have any kind of sexual activity by your partner or ex-partner? No 12/13/2019 Social Connection and Isolation Panel [NHANES] A nswer Date Recorded Frequency of Communication with Friends and Fami ly Not on file 12/13/2019 Frequency of Social Gatherings with Friends and Family Not on file 12/13/2019 Attends [employer] Services Not on file 12/12 Active Member of Clubs or Organizations Not on f ile 12/13/2019 Attends Club or Organization Meetings Not on mayank e 12/13/2019 Are you , , di vorced, , never , or living with a partner? 12/13/2019 AUDIT-C Answer Date Recorded Q1: How often do you have a drink containing alc ohol? Never 07/17/2022 Average Number of Drinks Not on file 022 Q3: How often do you have si x or more drinks on one occasion? Never 07/17/2022 Exercise Vital Sign Answer Date Recorde d On average, how many days pe r week do you engage in moderate to strenuous exercise (like a brisk walk)? 0 days 07/03/2020 On average, how many minutes do you engage in exercise at this level? Not asked 07/03/2020 Comments No Sex and Gender Information Value Date Recorded Sex Assigned at Not on file Legal Sex Female 9:51 AM TEST DESK SUPERVISOR Gender Identity Not on file Sexual Orientation Not on file Obstetrics History Para Term AB IAB SAB Ectopic Multiple Livin g Live Births 2 2 2 0 0 0 0 0 0 2 2 Date Outcome GA Total Labor Labor/2nd/3rd Weight Sex Type Anes PTL Shruthi A1 A5 Name Clin 1991 Term F Vag-S pont Living Complications:Other (Comment ) 1992 Term F Vag-S pont Living Complications:None Last Filed Vital Signs Vital Sign Reading Time Taken Comments Blood Pressure 128/87 07/22/2023 1:28 PM CDT Pulse 73 07/22/2023 1:28 PM CDT Temperature 36.7 ??C (98 ??F) 07/08/2019 4:21 PM CDT Respiratory Rate 16 06/16/2019 8:30 PM CDT Oxygen Saturation 95% 06/16/2019 8:30 PM CDT Inhaled Oxygen Concentration - - Weight 73.2 kg (161 lb 6.4 oz) 09/27/2024 9:35 A M TEST DESK SUPERVISOR Height 159.3 cm (5' 2.7 ) 09/27/2024 9:35 AM TEST DESK SUPERVISOR Body Mass Index 28.86 09/27/2024 9:35 AM TEST DESK SUPERVISOR Plan of Treatment Health Maintenance Due Date Last Done Comments Depression Screening 1970 Hepatitis C Screening 1970 Hepatitis B Screening 1989 Zoster Vaccine (1 of 2) 1990 Pneumococcal vaccine <65 (3 of 3 - PCV) 06/29/2021 06/29/2020, 10/17/2011 Breast Cancer Screening-Mammogram 12/24/2022 12/24/2021, 12/01/2020, 11/01/2019, Additional history exists Regular Well Visit/Exam 18-64 07/17/2023, 07/03/2020, 06/29/2019, Additional history exists Covid-19 Vaccine (2023-2 5 season) 2024 07/17/2021, 12/29/2020, 12/08/2020 Influenza Vaccine (#1) 2024 , 07/03/2020, 09/17/2019, Additional history exists DTaP/Tdap/Td Vaccine (3 - Td or Tdap) 06/22/2028 06/22/2018, 10/29/2017, 10/17/2011 Colon Cancer Screening-Colonoscopy 08/21/20282017, 10/31/2014 Medical Devices Explanted Type Area Quality Improvement Analyst Device Identifier Shelf Expiration Date Model / Serial / Lot [employer] 6571 Rojo Flexi-Stent 7fr 3cm Small Pigtail Flexible .035in Stent - [id number] Implanted:Qty: 1 on 04/19/2019 by Jim Shelby MD at [facility] Explanted:Qty: 1 on 04/21/2019 at [facility] Stent Pancreas [employer] 11/12/2023 657 1 / / [id number] Conmed Tracie [id number] Protection Viabil 10mm 8.5fr 6cm 200cm Fully Covered Self Expand Pull - [id number] - [id number] Implanted:Qty: 1 on 04/19/2019 by Jim Shelby MD at [facility] Explanted:Qty: 1 on 04/21/2019 at [facility] Stent Bile Duct Conmed Tracie 12/21/2021 [id number] / [id number] / Procedures Procedure Name Priority Date/Time Associated Diagnosis Comments VITAMIN D 25 HYDROXY Routine 09/27/2024 10:55 AM TEST DESK SUPERVISOR Postmenopausal osteoporosis TRYPTASE Routine 09/27/2024 10:55 AM TEST DESK SUPERVISOR Postmenopausal osteoporosis DEXA TBS AXIAL AND FOREARM BONE DENSITY SCAN Schedule Routine, Read Routine (OP Routine) 09/27/2024 9:34 AM TEST DESK SUPERVISOR Postmenopausal osteoporosis SCREENING MAMMOGRAM BILATERAL [place] Schedule Routine, Read Routine (OP Routine) 12/24/2021 2:23 PM CDT Screening mammogram, encounter for COLONOSCOPY 08/21/2018 3:07 PM TEST DESK SUPERVISOR from Last 3 Months or Most Recently Relevant to Health Maintenance Results * Tryptase (09/27/2024 10:55 AM TEST DESK SUPERVISOR) Tryptase Level 3.1 <11.5 ng/mL [place] [facility] Comment: Test Performed by: [facility] [address] [place] [address] Membership Counselor: Denis Hawkins Ph.D.; CLIA# [id number] Blood 09/27/2024 10:5 5 AM TEST DESK SUPERVISOR 09/27/2024 11:27 AM TEST DESK SUPERVISOR Mark Vegas MD LAB BLOOD ORDERABLES Final Resul t Performing Organization Address City/State/[facility] Co wi Phone Number [facility] Department [place] [address] [place] [facility] * (ABNORMAL) Vitamin D 25 hydroxy (09/27/2024 10:55 AM TEST DESK SUPERVISOR) Vitamin D 25-OH 16(L) 30 - 80 ng/mL Blood 09/27/2024 10:5 5 AM TEST DESK SUPERVISOR 09/27/2024 11:20 AM TEST DESK SUPERVISOR Mark Vegas MD LAB BLOOD ORDERABLES Final Resul t [facility] Department [place] [address] * Dexa TBS Axial and Forearm Bone Density Scan (09/27/2024 9:34 AM TEST DESK SUPERVISOR) Anatomical Region Laterality Modality Wrist, Body N/A Radiographic [place] ging Narrative 09/27/2024 9:53 AM TEST DESK SUPERVISOR Patient Name: Pina Reynaga Date of : 1970 Date of scan: 09/27/2024 Bone mineral density was performed on a [employer] Discovery Densitometer. ?? Based on machine cross-calibration and precision studies the least significant changes of this densitometer is 0.024 g/cm2 at the spine, 0.020 g/cm2 at the total proximal femur, and 0.014g/cm2 at the forearm. HISTORY: This is a 54 y.o. postmenopausal female with a history of osteoporosis and vitamin D deficiency. She reports that she has never smoked. She has never used smokeless tobacco. Currently on treatment with calcium and vitamin D and current complaint of back pain. INDICATIONS: Menopause status, vitamin D deficiency, and history of osteoporosis. FINDINGS: BONE MINERAL DENSITY OF THE LUMBAR SPINE Bone Mineral Density (BMD) of the lumbar spine was measured from L1-L4 and the average density was calculated to be 0.691 gm/cm2. This corresponds to a T-score (standard deviations from the mean of young adults) of -3.2. When compared to the previous study of 09/04/2023 there has been a -0.048 gm/cm (-6.4%) decrease in bone density that is considered significant. BONE MINERAL DENSITY OF THE PROXIMAL FEMUR Bone Mineral Density (BMD) of the left hip total was found to be 0.825 gm/cm2. This corresponds to a T-score standard deviations from the mean of young adults of -1.0. Femoral neck is 0.672 gm/cm2 with a T-score (standard deviations from the mean of young adults) of -1.6. When compared to the previous study of 09/04/2023 there has been a -0.029 gm/cm (-3.4%) decrease in bone density that is considered significant. SUMMARY: Bone mineral density shows evidence of osteoporosis and marked increase risk of fracture. There has been a significant decrease in bone density since previous measurement. The lumbar spine Trabecular Bone Score is 1.192 which suggests degraded bone microarchitecture compared to the general population. Final decisions regarding diagnostic or therapeutic recommendations should include BMD, TBS, additional clinical risk factors as well the clinical context of the patient. ?? Please see attached TBS results for further details. ADDITIONAL COMMENTS: Postmenopausal Women and Men Over 50: Diagnostic criteria: Osteoporosis: BMD at or below -2.5 T-score; Osteopenia (low bone mass): BMD between -1.0 and -2.5 T-score. If the patient has a history of a fragility fracture, a fracture that occurred with trauma equivalent to a fall from a standing position or less, then the diagnosis is osteoporosis regardless of bone density. The history and data sections of the bone mineral density scan were prepared by Kaley Palma (R)([facility]who is accredited by the International Society of Clinical Densitometry. The overall patient assessment and scan interpretation were performed by Bryant Yun M.D. who is certified by the International Society of Clinical Densitometry. [id number] Bryant Yun MD IMG DXA PROCEDURES Final Re sult * Screening Mammogram Bilateral [place] (12/24/2021 2:23 PM CDT) Anatomical Region Laterality Modality Breast Bilateral Mammography Narrative 12/25/2021 10:39 AM CDT Mammogram Technique: Bilateral Digital Breast Tomosynthesis, Bilateral C-view 2D Screening mammogram. ??Views obtained: ??bilateral craniocaudal and bilateral mediolateral oblique. ??Computer Aided Detection was performed. Mammogram Findings: The present examination has been compared to prior imaging studies performed at [facility] on 09/07/2018 and 12/01/2020, and at [facility] on 11/01/2019. There are scattered areas of fibroglandular density. There is no suspicious abnormality in either breast. Impression: There is no mammographic evidence of malignancy. Annual screening mammography is recommended. OVERALL FINAL ASSESSMENT: BI-RADS CATEGORY 1: ??Negative. Procedure Note Dee Mendez MD - 12/25/2021 Mammogram Technique: Bilateral Digital Breast Tomosynthesis, Bilateral C-view 2D Screening mammogram. Views obtained: bilateral craniocaudal and bilateral mediolateral oblique. Computer Aided Detection was performed. Mammogram Findings: The present examination has been compared to prior imaging studies performed at [facility] on 09/07/2018 and 12/01/2020, and at [facility] on 11/01/2019. There are scattered areas of fibroglandular density. There is no suspicious abnormality in either breast. Impression: There is no mammographic evidence of malignancy. Annual screening mammography is recommended. OVERALL FINAL ASSESSMENT: BI-RADS CATEGORY 1: Negative. us Self Screening Mammogram IMG MAMMO PROCEDURES Fi nal Result * COLONOSCOPY (08/21/2018 3:07 PM TEST DESK SUPERVISOR) Anatomical Region Laterality Modality Other Narrative Procedure Note Jim Shelby MD - 08/21/2018 3:07 PM CST ENDOSCOPY LAB Patient Name: Pina Reynaga Procedure Date: 08/21/2018 3:07 PM Admit Type: Outpatient Room: [facility] Date of : 1970 Instrument Name: [id number] Gender: Female Note Status: Finalized Procedure: Colonoscopy Indications: Last colonoscopy: 2014, Abdominal pain in the leftlower quadrant Providers: Jim Shelby MD Referring MD: Jonathan Amado MD Medicines: Propofol per Anesthesia Complications: No immediate complications. Estimated Blood Loss: Estimated blood loss: none. Procedure: Pre-Anesthesia Assessment: - Pre-procedure physical examination revealed no contraindications to sedation. - The risks and benefits of the procedure and thesedation options and risks were discussed with the patient. All questions were answered and informed consent wasobtained. The benefits, risks and alternatives of the procedureand sedation were discussed and informed consent wasobtained. All questions were answered. Please refer to the signed informed consent document in the medical record. The colonoscopy was performed without difficulty. Thepatient tolerated the procedure well. The quality of the bowel preparation was excellent. The quality of the bowel preparation was evaluated using the BBPS ([place] Bowel Preparation Scale) with scores of: Right Colon = 3(entire mucosa seen well with no residual staining, small fragments of stool or opaque liquid), Transverse Colon= 3 (entire mucosa seen well with no residual staining,small fragments of stool or opaque liquid) and Left Colon = 3 (entire mucosa seen well with no residual staining,small fragments of stool or opaque liquid). The total BBPSscore equals 9. The bowel preparation used was SUPREP. Bowel prep was administered using a split dose. Bowel prepwas administered using a split dose. The scope was passed under direct vision. The Colonoscope was introduced through the anus and advanced to the the terminalileum. Findings: The colon (entire examined portion) appeared normal. Biopsies weretaken with a cold forceps for histology. The terminal ileum appeared normal. Biopsies were taken with a cold forceps for histology. Impression: - Normal colon and terminal ileum. - District biopsies obtained. Recommendation: - Repeat colonoscopy at age 51 for screeningpurposes. Electronically signed by Jim Shelby MD Jim Shelby MD 08/21/2018 2:24:53 PM Number of Addenda: 0 Note Initiated On: 08/20/2018 3:07 PM Jim Shelby MD ENDOSCOPY PROCEDURES Final Result from Last 3 Months or Most Recently Relevant to Health Maintenance Insurance [facility] CHOICE PLUS ANTHEM TRADITIONAL ANTHEM ACCESS [facility] FEDERAL [facility] FEDERAL Advance Directives For more information, please contact: [phone] * Full Code (Latest Code Status on File) Date Activated Date Inactivated Comments 05/28/2019 6:46 PM 05/30/2019 10:06 PM * Full Code Date Activated Date Inactivated Comments 05/05/2019 4:26 PM 05/07/2019 11:22 PM * Full Code Date Activated Date Inactivated Comments 04/19/2019 9:03 AM 04/21/2019 6:40 PM * Full Code Date Activated Date Inactivated Comments 08/21/2018 12:35 PM 08/21/2018 5:10 PM Care Teams Compressor Operator Adjuster Relationship Specialty Start Date End Date Jonathan Amado MD PCP - General 03/18/17 Jim Shelby MD [address] [address] Consulting Physician Gastroenterology 06/16/19
--- OUTSIDE RECORDS SUMMARY | 2024-10-17 03:12 | XMS_ITS | Encounter Summary ---
Author Organization [facility] Address [address] [place] [address] Phone Care Team Providers Care Cleat Maker Name Role Phone Jonathan Amado MD Primary Care Provider [phone] Jim Shelby MD Unavailable [phone] Reason for Visit * Reason Onset Date Comments Treatment Plan Update 09/27/2024 David Guzman y Encounter Details Date Type Department Care Team (Late st Contact Info) Description 09/27/2024 Telephone [facility] [address] [facility] 5th [place] [address] [place] [address] Bryant Yun MD [address] [facility] [address] [place] [address] Treatment Plan Update (David Cuba) Social History Tobacco Use Types Packs/Day Years Used Date Smoking Tobacco: Never Smokeless Tobacco: Never Alcohol Use Standard Drinks/Week Comments Never 0 [...] and Family Not on file 12/13/2019 Attends [employer] Services Not on file 12/12 Active Member [...] on file Legal Sex Female 9:51 AM INTERMEDIATE PROJECT MANAGER Gender Identity Not on file Sexual Orientation Not on file documented as of this encounter Miscellaneous Notes * Telephone Encounter - Spencer Brown CMA - 09/30/2024 2:28 PM CST Pt will call office once she has made a decision regarding proceeding the Evenity RMEDIATE PROJECT MANAGER * Telephone Encounter - Linda Ceron CMA - 09/27/2024 10:52 AM INTERMEDIATE PROJECT MANAGER New Evenity. Per Dr. Yun Labs to be completed. To be done at [facility]. Therapy plan in chart. Please send apt request when labs and insurance are back. RMEDIATE PROJECT MANAGER * Telephone Encounter - Linda Ceron CMA - 09/27/2024 10:50 AM INTERMEDIATE PROJECT MANAGER Patient was seen by Dr. Yun today for an office visit. The following was recommended for the patient Evenity. Additional Comments: New evenity to be done at [facility]. Labs. One year follow up. RMEDIATE PROJECT MANAGER documented in this encounter Plan of Treatment Not on file documented as of this encounter Visit Diagnoses Not on filedocumented in this encounter Care Teams Cleat Maker Relationship Specialty Start Date End Date Jonathan Amado MD PCP - General 03/18/17 Jim Shelby MD [address] [address] Consulting Physician Gastroenterology 06/16/19 documented as of this encounter
--- OUTSIDE RECORDS SUMMARY | 2024-10-17 03:12 | XMS_ITS | Encounter Summary ---
Author Organization [facility] Address [address] [place] [address] Phone Care Team Providers Care Analytical Sciences Director Name Role Phone Jonathan Amado MD Primary Care Provider [phone] Jim Shelby MD Unavailable [phone] Reason for Visit * Reason Comments Osteoporosis Encounter Details Date Type Department Care Team (Latest Contact Info) Description 09/27/2024 10:20 AM PIECER Office Visit [place] [address] [facility] 5th [place] [address] [place] [id number] Geoff Yun MD [address] [facility] [address] [place] [address] Postmenopausal osteoporosis (Primary Dx); Chronic midline thoracic back pain Social History Tobacco Use Types Packs/Day Years [...] and Family Not on file 12/13/2019 Attends Church Services Not on file 12/12 Active Member [...] on file Legal Sex Female 9:51 AM PIECER Gender Identity Not on file Sexual Orientation Not on file documented as of this encounter Last Filed Vital Signs Vital Sign Reading Time Taken Comments Blood Pressure - - Pulse - - Temperature - - Respiratory Rate - - Oxygen Saturation - - Inhaled Oxygen Concentration - - Weight 73.2 kg (161 lb 6.4 oz) 09/27/2024 9:35 A M PIECER Height 159.3 cm (5' 2.7 ) 09/27/2024 9:35 AM PIECER Body Mass Index 28.86 09/27/2024 9:35 AM PIECER documented in this encounter Patient Instructions * Patient Instructions* Umer Vegas MD - 09/27/2024 10:20 AM PIECER Bone Health Program Discharge and Information Sheet Contact: Call: [phone] or [phone] FAX: [phone] Name: Pina Reynaga Thank you for choosing the [facility] Bone Health Program for consultation about your bone health! We hope that your experience with our program was informative, pleasant, and valuable. Following are a set of instructions that we ask you to read carefully and follow so that the recommenda tions you have received can be correctly implemented. PLAN: the following has been recommended as treatment for your bone health - Evenity (2 injections every month) - See further instructions below - blood test today - Calcium 4622-7065 mg daily, through a combination of diet and supplements - Vitamin D 2000 IU daily - Weight bearing activity as tolerated (Walking is great!) - Fall prevention: be cautious in the winter months with regards to ice, snow and other slippery conditions both outside, in entry ways and in public buildings; use railings on stairs; remove unnecessary trip hazards from the home such as loose electrical cords and throw rugs - Please call the office with any new fracture or initiation of prednisone - Doctors visit and Bone Density Exam in 1 year Follow Up Appointment: Please stop at the front desk person to make a follow-up appointment in 1 year or call [phone]. Every attempt will be made to schedule the follow-up appointment at the physician's recommended time point. Lab Test Results: If you have been given lab orders to have your blood drawn, please allow for a few days for the results to come back and your physician review them. Results are viewable by you in My Chart as soon as they become available. Your provider may add some comments as well. If you have not received your results or have not heard back from us after two weeks since your blood was drawn, please feel free to give our office a call at [phone] option # 1. Bone Density Testing: To ensure the best quality of care, we strongly recommend you have all your follow up bone density tests done at our center. Bone density tests cannot be compared between different facilities. If another physician requests a bone density test for you, please let her/him know that your bone density is being monitored by the [facility]. If your other providers have questions or would like a report of your bone density scans, they can contact [facility] [phone] or Medical Records at [phone]. Important! Always remember to stop taking your calcium supplements 24 hours before you are scheduled to have your bone density test at your next visit. If you need to make changes to your follow-up appointment or are running late to your visit at the Bone Health Program, please contact us as soon as possible at [phone] ([facility]), or [phone] ([facility]), or [phone] ([facility]). We work on a very tight schedule and depending on the circumstances it may be necessary to resched ule your appointment if no other time slot is available on the same day. [facility] patient portal allows you to view your medical records, test results, personal information,request prescription renewals, review past appointments, request new ones and securely communicate online with our office. Ask at the retail center receptionist desk about receiving an invite to join [facility] portal. For questions about accessing [facility] patient portal call [phone]. Feel free to visit our web site for further information on medications, diet, exercise and other things you can do to take charge of your bone health: [email or web address] Thank you for choosing the [facility]! Your Provider has recommended Evenity (romosozumab). Evenity is an injection that you will receive every month (same day of the month). The injection will be administered in your upper arm in an Infusion Center. Your Provider should have let you know if there are any labs that need to be completed before scheduling. Scheduling/Insurance Information: Your Evenity injection can be scheduled at one of our [facility] Infusion Centers; [facility], [facility], or [facility] [address]. Your appointment can be scheduled once your lab results have been received and reviewed. Please allow up to 2 weeks for your lab results. The office staff will send an appointment request to the Infusion Center of your choice. Then the Infusion Center will contact you directly to schedule your Evenity injection. Once your appointment has been made at one of our [facility] Infusion Centers then our PrecertificationDepartment will obtain a Prior Authorization from your Insurance Company if one is required. If you have a Commercial insurance there is a Copay Assistance Program. You can find the cost information and the savings card on the website at [employer]. If you have a Medicare Insurance, you can find cost information at http://[employer]. If you have not heard from our office within 2 weeks please contact our office by sending a mychartmessage or calling [phone]. What should I expect from Evenity injections? Evenity (romosozumab) is a human antibody that recognizes and removes a bone protein (sclerostin) that slows down bone formation, thus freeing the bone building cells (osteoblasts) to produce more bone. It also slows down the process of bone breakdown. All this results in an increase in bone density within one year. The most common side effect is arthralgia and minor discomfort at the injection site. Evenity should not be used in subjects who have had a heart attack or stroke. Please, contact your provider if you have a personal history of such problems. Additional information can be found at: [email or web address]; and http://[employer] ER ER documented in this encounter Ordered Prescriptions Prescription Sig Dispense Quantity Refills Last Filled Start Date End Date ergocalciferol (VITAMIN D) 50,000 unit capsule Take 1 capsule (50,000 Units total) by mouth once a week Take 1 capsule every 7 days for 8 weeks 8 capsule 09/27/2024 5 documented in this encounter Progress Notes * Umer Vegas MD - 09/27/2024 10:20 AM CST Division of Bone and Mineral Disease Bone Health Program 09/27/2024 INTERVAL HISTORY: Pina Reynaga is a 54 y.o. postmenopausal (postsurgical at 29 years old) female with a history of osteoporosis, returning for a follow-up visit. She was last seen on 08/2023. The interval has been uneventful, as far as her musculoskeletal system. Patient was last seen on 08/2023. Due to significant decline in lumbar spine BMD, patient was recommended starting Boniva, but never started it because of insurance reasons. PCP attempted to get Reclast approved but it they were unsuccessful. Patient states PCP planning to starting her on Prolia. Patient comes in today with her . She has never had history of fractures. Denies any falls the past year. Has allergies for years. Has allergies to mold and is currently getting sensitization for to it. Nosignificant history of rash. Patient walks her dog. Patient has difficulty with gripping which has been going on for the past year. She was previously worked up by Rheumatology for a positive FABIAN. Patient takes around 2-3 serving of dietary calcium a day. She is not on vitamin D. Both paternal grandfather and grandmother had osteoporosis and may have had osteoporosis. Mother has osteoporosis and ankle fracture. REVIEW OF SYSTEMS: 10 point ROS unremarkable except those mentioned on the HPI. PHYSICAL EXAMINATION: Ht 159.3 cm (5' 2.7 ) Wt 73.2 kg (161 lb 6.4 oz) BMI 28.86 kg/m?? GENERAL: Conscious, coherent, ambulatory not in respiratory distress HEENT: Atraumatic, pink palpebral conjunctivae, anicteric sclerae HEART: Regular rate, normal rhythm, no murmurs noted LUNGS: Clear to auscultation bilaterally, SPINE: No deformities noted. No paraspinal tenderness. EXTREMITIES: No edema, TESTS REVIEWED: Bone Mineral Density: Date of scan: 09/27/2024 BONE MINERAL DENSITY OF THE LUMBAR SPINE [...] in bone density that is considered significant. The lumbar spine Trabecular Bone Score is 1.192 which suggests degraded bone microarchitecture compared to the general population. Laboratory: Lab Results Component Value Date GLUCOSE 82 11/11/2022 CALCIUM 10.1 11/11/2022 SODIUM 139 11/11/2022 POTASSIUM 4.8 11/11/2022 CO2 29 11/11/2022 CHLORIDE 102 11/11/2022 BUNSER 11 11/11/2022 CREATININE 0.79 04/09/2024 Lab Results Component Value Date ALT 19 04/09/2024 AST 24 04/09/2024 ALKPHOS 83 04/09/2024 BILITOT 0.4 04/09/2024 Lab Results Component Value Date CALCIUM 10.1 11/11/2022 Lab Results Component Value Date 25HYDROVITD 16 (L) 09/27/2024 TESTS ORDERED: Orders Placed This Encounter Procedures Vitamin D 25 hydroxy Tryptase ASSESSMENT: This is a 54 y.o. female with a history of osteoporosis and vitamin D insufficiency. Her bone density has worsened in the interval. Unfortunately, Boniva was not starrted last year. Patient's risk fractors include family history of osteoporosis, vitamin D insufficiency and early postsurgical menopau se (she had 2 ovaries taken out by the age of 29 years and was briefly on HRT after). She may also have not reached peak bone mass during her youth. Given worse T-scores with degraded bone microarchitecture, we suggested an osteoanabolic agent which would afford the patient to most gains (possibly E venity). We plan to hold gains with a dose of Reclast. Patient had some hesitations due to potential is side effects. We discussed to her side effect risks is low and her risks for a fragility fracture is high given her T-scores. Her vitamin D was confirmed low and patient currently not on supplements. PLAN: I recommended starting therapy with romosozumab (Evenity). I reviewed the risks associated with romosozumab therapy, including joint pain, low serum calcium, and increased risk of cardiovascular events (myocardial infarction, stroke and ) in subjects who have had similar events in the previousyear . Patient has never had history of [place] or strokes and does not have symptoms. Educational pamphlets on Evenity given to patient. Patient has significant history of allergies. No apparent history or urticaria pigmentosa. We will screen for mastocytosis which can be associated with bone loss with a serum tryptase levels. There has been reports of mastocytosis- related osteoporosis without skin manifestations. In addition, she should start calcium of 3346-9210 mg per day through dietary intake or supplementsand vitamin D 2,000 IU per day. We also recommended an 8- week course of ergocalciferol 50,000IU weekly. Will measure serum tryptase and vitamin D levels today. I also counseled her on healthy exercise patterns for bone health and the importance of precautionsto prevent falls. I've asked her to notify me with any problems or questions, or of any new fractures or complications related to her condition. She is to return to the clinic in about 1 year. Umer Vegas MD Bone Health Fellow. Assessment and plans discussed with Dr. Yun who saw and examined the patient. Cosigned by Geoff Yun MD at 09/27/2024 2:45 PM PIECER ER ER ER Associated attestation - Geoff Yun MD - 09/27/2024 2:45 PM PIECER I have seen and examined the patient. I agree with the findings and plan of care as documented in the resident/fellow's note. My total encounter time on 09/27/2024 was 20 minutes which was spent in the activities documented in the note. This includes time spent prior to the visit and after the visit in direct care of the patient. This time does not include time spent in any separately reportable services. documented in this encounter Miscellaneous Notes * Addendum Note - Umer Vegas MD - 09/27/2024 10:20 AM CSTAddended by: UMER VEGAS on: 09/27/2024 10:58 AM Modules accepted: Orders ER * Addendum Note - Geoff Yun MD - 09/27/2024 10:20 AM CSTAddended by: GEOFF YUN on: 09/27/2024 02:47 PM Modules accepted: Orders ER documented in this encounter Plan of Treatment Not on file documented as of this encounter Results * Tryptase (09/27/2024 10:55 AM PIECER) Tryptase Level 3.1 <11.5 ng/mL [facility] Lab Comment: Test Performed by: [facility] [address] [place] [address] Reuse Technician: Denis Hawkins Ph.D.; CLIA# [id number] Blood 09/27/2024 10:5 5 AM PIECER 09/27/2024 11:27 AM PIECER Umer Vegas MD LAB BLOOD ORDERABLES Final Resul t Performing Organization Address [facility] de Phone Number [facility] [place] [address] [place] [facility] * (ABNORMAL) Vitamin D 25 hydroxy (09/27/2024 10:55 AM PIECER) Vitamin D 25-OH 16(L) 30 - 80 ng/mL Blood 09/27/2024 10:5 5 AM PIECER 09/27/2024 11:20 AM PIECER Umer Vegas MD LAB BLOOD ORDERABLES Final Resul t Performing Organization Address [facility] de Phone Number [facility] [place] [address] documented in this encounter Visit Diagnoses Diagnosis Postmenopausal osteoporosis- Primary Chronic midline thoracic back pain documented in this encounter Discontinued Medications Medication Sig Discontinue Reason Start Date End Da te ergocalciferol (VITAMIN D) 50,000 unit capsule Take 1 capsule (50,000 Units total) by mouth once a week Take 1 capsule every 7 days for 8 weeks Reorder 11/11/2022 09/27/2024 documented as of this encounter Care Teams Analytical Sciences Director Relationship Specialty Start Date End Date Jonathan Amado MD PCP - General 03/18/17 Jim Shelby MD [id number] [address] Consulting Physician Gastroenterology 06/16/19 documented as of this encounter
--- OUTSIDE RECORDS SUMMARY | 2024-10-17 03:12 | XMS_ITS | Referral Summary ---
Author Organization [facility] Address [address] [place] [address] Care Team Providers Care Jboss Architect Name Role Phone Jonathan Amado MD Primary Care Provider [phone] Jim Shelby MD Unavailable [phone] Encounters Date Type Department Care Team Description 09/27/[address] Medicine 5th [place] [address] Bryant Yun MD Treatment Plan Update (New Evenity) 09/27/2024 12:50 PM LOG MANAGER Lab [facility] [address] [place] [id number] Postmenopausal osteoporosis 09/27/2024 10:20 AM LOG MANAGER Office Visit [address]th [place] [address] Bryant Yun MD Postmenopausal osteoporosis (Primary Dx); Chronic midline thoracic back pain 09/27/2024 9:50 AM LOG MANAGER Clinical Support [address] [place] [address] Postmenopausal osteoporosis 08/31/2024 4:30 PM LOG MANAGER Office Visit [facility] Medicine 6th [place] [address] Daniel Ellis MD Aphasia (Primary Dx) from Last 3 Months Allergies Active Allergy [...] 06/24/2013 Sulfasalazine Rash Medium 04/24/2012 Body aches Armstrong Pollen-Short Ragweed Unknown 01/28/2023 ragweed - allergy Medications cetirizine (ZyrTEC) 10 mg tablet Take 1 tablet (10 mg total) by mouth daily Active acetaminophen (TYLENOL) 325 mg tablet Take 2 tablets (650 mg total) by mouth every 8 (eight) hours 30 tablet 9 Active tobramycin, bulk, 900 mcg/mg (not less than, PRISON) powder Add 1 capsule of 20mg to [...] (04/21/2019): Added automatically from request for surgery [id number] Elevated CK 03/01/2019 Urticaria 03/01/2019 Memory loss [...] Chronic frontal sinusitis 03/10/2014 Chronic sinusitis 10/08/2011 Immunizations Name Administration Dates Next Due Influenza, Quadrivalent, Rec ombinant, Egg Free, Preservative Free, Intramuscular 08/16/2021,09/17/2019 Influenza, Quadrivalent, Spl it, Preservative Free, Intramuscular 07/23/2018 Influenza, Trivalent, Preservative Free, Intramu scular 07/25/2017 Influenza, Unspecified 07/03/2020 Pneumococcal Polysaccharide PPV23 06/29/2020,02/2012 TD Preservative Free 10/17/2011 Tdap 06/22/2018,10/29/2017 Social History Tobacco Use Types Packs/Day Years [...] and Family Not on file 12/13/2019 Attends Religion Services Not on file 12/12 Active Member [...] on file Legal Sex Female 9:51 AM LOG MANAGER Gender Identity Not on file Sexual [...] lb 6.4 oz) 09/27/2024 9:35 A M LOG MANAGER Height 159.3 cm (5' 2.7 ) 09/27/2024 9:35 AM LOG MANAGER Body Mass Index 28.86 09/27/2024 9:35 AM LOG MANAGER Plan of Treatment Not on file Medical Devices Explanted Type Area Worship Director Device Identifier Shelf Expiration Date Model / Serial / Lot [employer] [id number] Rojo Flexi-Stent 7fr 3cm Small Pigtail Flexible .035in Stent - [id number] Implanted:Qty: 1 on 04/19/2019 by Jim Shelby MD at [facility] Explanted:Qty: 1 on 04/21/2019 at [facility] Stent Pancreas [employer] 11/12/2023 [id number] / / [id number] Conmed Tracie [id number] [place] Viabil 10mm 8.5fr 6cm 200cm Fully Covered Self Expand Pull - [id number] - [id number] Implanted:Qty: 1 on 04/19/2019 by Jim Shelby MD at [facility] Explanted:Qty: 1 on 04/21/2019 at [facility] Stent Bile Duct [employer] Tracie 12/21/2021 [id number] / [id number] / Procedures Procedure Name Priority Date/Time Associated Diagnosis Comments VITAMIN D 25 HYDROXY Routine 09/27/2024 10:55 AM LOG MANAGER Postmenopausal osteoporosis TRYPTASE Routine 09/27/2024 10:55 AM LOG MANAGER Postmenopausal osteoporosis DEXA TBS AXIAL AND FOREARM BONE DENSITY SCAN Schedule Routine, Read Routine (OP Routine) 09/27/2024 9:34 AM LOG MANAGER Postmenopausal osteoporosis SCREENING MAMMOGRAM BILATERAL [place] Schedule Routine, Read Routine (OP Routine) 12/24/2021 2:23 PM CDT Screening mammogram, encounter for COLONOSCOPY 08/21/2018 3:07 PM LOG MANAGER from Last 3 Months or Most Recently Relevant to Health Maintenance Results * Tryptase (09/27/2024 10:55 AM LOG MANAGER) Tryptase Level 3.1 <11.5 ng/mL [facility] ref Lab Comment: Test Performed by: [facility] [address] [place] [address] Cylinder Machine Operator Pulp Drier: Denis Hawkins Ph.D.; CLIA# [id number] Blood 09/27/2024 10:5 5 AM LOG MANAGER 09/27/2024 11:27 AM LOG MANAGER Mark Vegas MD LAB BLOOD ORDERABLES Final Resul t Performing Organization Address [facility] Co de Phone Number [facility] Department [place] [address] [place] ref Lab * (ABNORMAL) Vitamin D 25 hydroxy (09/27/2024 10:55 AM LOG MANAGER) Vitamin D 25-OH 16(L) 30 - 80 ng/mL Blood 09/27/2024 10:5 5 AM LOG MANAGER 09/27/2024 11:20 AM LOG MANAGER Mark Vegas MD LAB BLOOD ORDERABLES Final Resul t Performing Organization Address [facility] de Phone Number KENY [facility] Department [place] [address] * Dexa TBS Axial and Forearm Bone Density Scan (09/27/2024 9:34 AM LOG MANAGER) Anatomical Region Laterality Modality Wrist, Body N/A Radiographic [place] ging Narrative 09/27/2024 9:53 AM LOG MANAGER Patient Name: Pina Reynaga Date of : 1970 Date of scan: 09/27/2024 Bone mineral density was performed on a [employer] Discovery Densitometer. ?? Based on machine cross-calibration [...] mineral density scan were prepared by Kaley Ramirez)(CBDT)who is accredited by the International Society of Clinical Densitometry. The overall patient assessment and scan interpretation were performed by Bryant Yun M.D. who is certified by the International Society of Clinical Densitometry. [id number] us Bryant Yun MD IMG DXA PROCEDURES Final [...] compared to prior imaging studies performed at [facility] on 09/07/2018 and 12/01/2020, and at [facility] on 11/01/2019. There are scattered areas of [...] compared to prior imaging studies performed at [facility] on 09/07/2018 and 12/01/2020, and at [facility] on 11/01/2019. There are scattered areas of fibroglandular density. There is no suspicious abnormality in either breast. Impression: There is no mammographic evidence of malignancy. Annual screening mammography is recommended. OVERALL FINAL ASSESSMENT: BI-RADS CATEGORY 1: Negative. us Self Screening Mammogram IMG MAMMO PROCEDURES Fi nal Result * COLONOSCOPY (08/21/2018 3:07 PM LOG MANAGER) Anatomical Region Laterality Modality Other Narrative Procedure Note Jim Shelby MD - 08/21/2018 3:07 PM CST ENDOSCOPY LAB Patient Name: Pina Reynaga Procedure Date: 08/21/2018 3:07 PM Admit Type: Outpatient Room: [facility] Date of : 1970 Instrument Name: [id number] [...] bowel preparation was evaluated using the BBPS ([place] Bowel Preparation Scale) with scores of: Right [...] Most Recently Relevant to Health Maintenance Insurance [facility] [employer] [address] TRADITIONAL ACCESS [facility] [employer] [facility] [employer] Advance Directives For more information, please contact: [phone] * Full Code (Latest Code Status on File) Date Activated Date Inactivated Comments 05/28/2019 6:46 PM 05/30/2019 10:06 PM * Full Code Date Activated Date Inactivated Comments 05/05/2019 4:26 PM 05/07/2019 11:22 PM * Full Code Date Activated Date Inactivated Comments 04/19/2019 9:03 AM 04/21/2019 6:40 PM * Full Code Date Activated Date Inactivated Comments 08/21/2018 12:35 PM 08/21/2018 5:10 PM Care Teams Jboss Architect Relationship Specialty Start Date End Date Jonathan Amado MD PCP - General 03/18/17 Jim Shelby MD [address] [address] Consulting Physician Gastroenterology 06/16/19
--- OUTSIDE RECORDS SUMMARY | 2024-10-17 03:12 | XMS_ITS | Continuity of Care Document ---
Author Organization [employer] [place] Address [address] [place] [address] [address] [place] [address] Phone Care Team Providers Care Surgery Specialist Name Role Phone Chelsy PT, COLETTET, Octavio Unavailable Brenda vailable Procedures Procedure Date THERAPEUTIC EXERCISES NEUROMUSCULAR RE-ED MANUAL THERAPY FUNC ACTIVITY HOT/COLD PACK THERAPEUTIC EXERCISES NEUROMUSCULAR RE-ED MANUAL THERAPY FUNC ACTIVITY HOT/COLD PACK THERAPEUTIC EXERCISES NEUROMUSCULAR RE-ED MANUAL THERAPY FUNC ACTIVITY HOT/COLD PACK THERAPEUTIC EXERCISES NEUROMUSCULAR RE-ED MANUAL THERAPY FUNC ACTIVITY HOT/COLD PACK Progress Note THERAPEUTIC EXERCISES NEUROMUSCULAR RE-ED MANUAL THERAPY FUNC ACTIVITY HOT/COLD PACK THERAPEUTIC EXERCISES NEUROMUSCULAR RE-ED MANUAL THERAPY FUNC ACTIVITY HOT/COLD PACK THERAPEUTIC EXERCISES NEUROMUSCULAR RE-ED MANUAL THERAPY FUNC ACTIVITY HOT/COLD PACK THERAPEUTIC EXERCISES NEUROMUSCULAR RE-ED MANUAL THERAPY FUNC ACTIVITY HOT/COLD PACK THERAPEUTIC EXERCISES NEUROMUSCULAR RE-ED MANUAL THERAPY FUNC ACTIVITY HOT/COLD PACK ELECTRIC STIMULATION UNATT THERAPEUTIC EXERCISES NEUROMUSCULAR RE-ED MANUAL THERAPY FUNC ACTIVITY HOT/COLD PACK ELECTRIC STIMULATION UNATT THERAPEUTIC EXERCISES NEUROMUSCULAR RE-ED MANUAL THERAPY FUNC ACTIVITY HOT/COLD PACK ELECTRIC STIMULATION UNATT THERAPEUTIC EXERCISES NEUROMUSCULAR RE-ED MANUAL THERAPY FUNC ACTIVITY HOT/COLD PACK ELECTRIC STIMULATION UNATT THERAPEUTIC EXERCISES NEUROMUSCULAR RE-ED MANUAL THERAPY FUNC ACTIVITY HOT/COLD PACK ELECTRIC STIMULATION UNATT THERAPEUTIC EXERCISES NEUROMUSCULAR RE-ED MANUAL THERAPY FUNC ACTIVITY HOT/COLD PACK ELECTRIC STIMULATION UNA THERAPEUTIC EXERCISES NEUROMUSCULAR RE-ED MANUAL THERAPY FUNC ACTIVITY HOT/COLD PACK ELECTRIC STIMULATION UNATT THERAPEUTIC EXERCISES NEUROMUSCULAR RE-ED MANUAL THERAPY FUNC ACTIVITY HOT/COLD PACK ELECTRIC STIMULATION UNATT PT EVALUATION THERAPEUTIC EXERCISES HOT/COLD PACK ELECTRIC STIMULATION UNATT PT EVALUATION THERAPEUTIC EXERCISES MANUAL THERAPY ELECTRIC STIMULATION UNATT THERAPEUTIC EXERCISES NEUROMUSCULAR RE-ED MANUAL THERAPY FUNC ACTIVITY HOT/COLD PACK ELECTRIC STIMULATION UNATT THERAPEUTIC EXERCISES NEUROMUSCULAR RE-ED MANUAL THERAPY FUNC ACTIVITY HOT/COLD PACK ELECTRIC STIMULATION UNATT THERAPEUTIC EXERCISES NEUROMUSCULAR RE-ED MANUAL THERAPY FUNC ACTIVITY HOT/COLD PACK THERAPEUTIC EXERCISES NEUROMUSCULAR RE-ED MANUAL THERAPY FUNC ACTIVITY HOT/COLD PACK THERAPEUTIC EXERCISES NEUROMUSCULAR RE-ED MANUAL THERAPY FUNC ACTIVITY HOT/COLD PACK THERAPEUTIC EXERCISES NEUROMUSCULAR RE-ED MANUAL THERAPY FUNC ACTIVITY HOT/COLD PACK ELECTRIC STIMULATION UNATT THERAPEUTIC EXERCISES NEUROMUSCULAR RE-ED MANUAL THERAPY FUNC ACTIVITY HOT/COLD PACK THERAPEUTIC EXERCISES NEUROMUSCULAR RE-ED MANUAL THERAPY HOT/COLD PACK PT RE-EVALUATION THERAPEUTIC EXERCISES NEUROMUSCULAR RE-ED MANUAL THERAPY HOT/COLD PACK THERAPEUTIC EXERCISES NEUROMUSCULAR RE-ED MANUAL THERAPY HOT/COLD PACK ELECTRIC STIMULATION UNATT THERAPEUTIC EXERCISES NEUROMUSCULAR RE-ED MANUAL THERAPY HOT/COLD PACK ELECTRIC STIMULATION UNATT THERAPEUTIC EXERCISES NEUROMUSCULAR RE-ED MANUAL THERAPY HOT/COLD PACK THERAPEUTIC EXERCISES NEUROMUSCULAR RE-ED MANUAL THERAPY HOT/COLD PACK THERAPEUTIC EXERCISES MANUAL THERAPY HOT/COLD PACK THERAPEUTIC EXERCISES MANUAL THERAPY HOT/COLD PACK THERAPEUTIC EXERCISES MANUAL THERAPY HOT/COLD PACK THERAPEUTIC EXERCISES MANUAL THERAPY FUNC ACTIVITY 15 MIN HOT/COLD PACK ELECTRIC STIMULATION UNATT PT EVALUATION THERAPEUTIC EXERCISES HOT/COLD PACK ELECTRIC STIMULATION UNATT Advance Directives Directive Yes / No Effective Date File Name No Information Encounters Encounter Description Practice Location Reason(s) For Visit Diagnoses Date Provider Providers Copied on Encounter [facility] [address], [id number], tel:[phone] [place] No Information Dec-2 2-201 6 Robles-Kenan es Octavio. [address] [place] [address], [address], [place], [facility], [place]. tel:[phone] [facility] [address], [id number], tel:[phone] [place] No Information Dec-1 3-201 6 Robles-Kenan es Octavio. [address] [place] [address], [address], [place], [place], [facility], [place]. tel:[phone] Referring Provider: Grupo Reese, [address] [facility] [address], [place], [address]. tel:[phone], [id number], tel:[phone] [place] No Information Dec-0 5-201 6 Robles-Kenan es Octavio. [address] [place] [address], [address], [place], [facility], [place]. tel:[phone] Referring Provider: Grupo Reese, [address] [facility] [address], [place], [address]. [phone] [address], [place], [place], [address], tel:[phone] [place] No Information Nov-2 8-201 6 Robles-Kenan es Octavio. [address] [place] [address], [address], [facility], [place]. tel: [phone] Referring Provider: Grupo Reese, [address] [facility] [address], [place], [address]. [phone], [place], [place], [address], tel:[phone] [place] No Information Nov- 7-201 6 Robles-Kenan es Octavio. [address] [place] [address], [address], [facility], [place]. tel:[phone] Referring Provider: [facility] [place] [address], [place], [address]. tel:[phone], [place], [place], [address], tel:[phone] [place] No Information Nov-1 4-201 6 Robles-Kenan es Octavio. [address] [place] [address], [address], [place], [facility], [place]. tel:[phone] Referring Provider: Tiana Donaldson [address] [facility] 1st Floor [address], [place], [address]. tel:[phone], [place], [id number], tel:[phone] [place] No Information Nov-1 0-201 6 Robles-Kenan es Octavio. [address] [place] [address], [address], [place], [facility], [place]. tel: [phone] Referring Provider: Renate Louie1 [facility] [place] [address], [place], [address]. tel:[phone], [id number], tel:[phone] [place] No Information 0 3-201 6 RoblesTeddy es Octavio. [address] [place] [address], [address], [facility], . tel: [phone] Referring Provider: Renate Louie1 [facility] [place] [address] Floor [address], [place], [address]. tel:[phone], [id number], tel:[phone] [place] No Information 1- 6 Robles-Kenan es Octavio. [address] [place] [address], [address], [facility], . tel: [phone] Referring Provider: Renate Louie1 [facility] [place] [address], [place], [address]. tel:[phone], [id number], tel:[phone] [place] No Information 9-201 6 Cruz Nicol. [address] [place] [address], [address], [facility], . tel: [phone] Referring Provider: Tiana Donaldson [address] [facility] [place] [address], [place], [address]. tel:[phone], [id number], tel:[phone] [place] No Information 7-201 6 Cruz Nicol. [address] [place] [address], [address], [facility], . tel: [phone] Referring Provider: Renate Louie1 [facility] [place] [address], [place], [address]. tel:[phone], [place], [place], [address], tel:[phone] [place] No Information Oct-1 0-201 6 Cruz Nicol. [address] [place] [address], [address], [facility], . tel:[phone] Referring Provider: Lupillo Louie [facility] [place] [address], [place], [address]. tel:[phone], [place], [place], [address], tel:[phone] [place] No Information Oct-0 3-201 6 Cruz Nicol. [address] [place] [address], [address], [facility], . tel:[phone] Referring Provider: Lupillo Louie [facility] [place] [address], [place], [address]. tel:[phone] [address], [place], [place], [address], tel:[phone] [place] No Information Sep-2 8-201 6 Cruz Nicol. [address] [place] [address], [address], [facility], [place]. tel:[phone] Referring Provider: Lupillo Louie [facility] [place] [address], [place], [address]. tel:[phone] [address], [place], [place], [address], [place] tel:[phone] [place] No Information Sep-2 2-201 6 Cruz Nicol. [address] [place] [address], [address], [place], [address], [place]. tel:[phone] Referring Provider: [facility] [place] [address], [place], [address]. tel:[phone] [facility], [address] [place] [address] [address], [place], [place], [address], [place] tel:[phone] [place] No Information Sep-1 9 6 Cruz Nicol. [address] [place] [address], [address], [place], [facility], . tel:[phone] Referring Provider: Lupillo Louie [facility] 1st Floor [address], [place], [address]. tel:[phone] [facility], [address] [place] [address] [address], [place], [place], [id number], [place] tel:[phone] [place] No Information Sep-1 6 Cruz Nicol. [address] [place] [address], [address], [place], [facility], [place]. tel:[phone] Referring Provider: Lupillo Louie [facility] 1st Floor [address], [place], [address]. tel:[phone] [place] [address], [address] [place] [address] [address], [place], [place], [id number], [place] tel:[phone] [place] Stiffness of unspecified joint, not elsewhere classifiedMuscle weakness (generalized)Oth symptoms and signs involving the dgstv sys and abdomenCervicalgiaS egmental and somatic dysfunction of thoracic regionLumbago with sciatica, right sideOther intervertebral disc displacement, lumbosacral region Sep-1 2 6 Cruz Nicol. [address] [place] [address], [address], [place], [facility], [place]. tel:[phone] Referring Provider: Lupillo Louie [facility] 1st Floor [address], [place], [address]. tel:[phone] [facility], [address] [place] [address] [address], [place], [place], [address], [place] tel:[phone] [place] Pain in joint involving ankle and foot Aug-0 5-201 4 Guerda Cunningham. [address] [place] [address], [address], [place], [address], [place]. tel: [phone] Referring Provider: Grupo Lutz, [address] [facility] [address], [place], [address]. tel:[phone] [facility] [address], [place], [place], [address], [place] tel:[phone] [place] No Information 4 Robles-Kenan es Ocatvio. [address] [place] [address], [address], [place], [address], [place]. tel: [phone] [facility] [address], [place], [place], [address], [place] tel:[phone] [place] No Information 4 Robles-Kenan es Octavio. [address] [place] [address], [address], [place], [address], [place]. tel: [phone] [facility] [address], [place], [place], [address], [place] tel:[phone] [place] No Information 4 Robles-Kenan es Octavio. [address] [place] [address], [address], [place], [address], [place]. tel: [phone] [facility] [address], [place], [place], [address], [place] tel:[phone] [place] No Information 4 Jarvis Nicol. [address] [place] [address], [address], [place], [address], [place]. tel: [phone] [facility], [place], [place], [address], [place] tel:[phone] [place] No Information 4 Robles-Kenan es Octavio. [address] [place] [address], [address], [place], [address], [place]. tel: [phone] [facility], [place], [place], [address], [place] tel:[phone] [place] No Information Anthony-3 0-201 4 Robles-Kenan es Octavio. [address] [place] [address], [address], [place], [facility], [place]. tel: [phone] [place] [address] [address], [place], [place], [address], [place] tel:[phone] [place] No Information Anthony-2 5-201 4 Robles-Kenan es Octavio. [address] [place] [address], [address], [place], [facility], [place]. tel: [phone] [place] [address] [address], [place], [place], [address], [place] tel:[phone] [place] No Information Anthony-2 3-201 4 Robles-Kenan es Octavio. [address] [place] [address], [address], [place], [facility], [place]. tel: [phone] [place] [address] [facility] [address], [place], [place], [address], [place] tel:[phone] [place] No Information Anthony-1 6-201 4 Robles-Kenan es Octavio. [address] [place] [address], [address], [place], [facility], [place]. tel: [phone] [place] [address] [address], [place], [place], [address], [place] tel:[phone] [place] No Information Anthony-1 1-201 4 Robles-Kenan es Octavio. [address] [place] [address], [address], [place], [address], [place]. tel: [phone] [place] [address] [address], [place], [place], [address], [place] tel:[phone] [place] No Information Anthony-0 9-201 4 Robles-Kenan es Octavio. [address] [place] [address], [address], [place], [facility], [place]. tel: [phone] [facility] [address], [place], [place], [address], [place] tel:[phone] [place] No Information May-3 0-201 4 Cruz Nicol. [address] [place] [address], [address], [place], [facility], [place]. tel: [phone] [facility] [address], [place], [place], [address], [place] tel:[phone] [place] No Information May-2 2-201 4 Robles-Kenan es Octavio. [address] [place] [address], [address], [place], [facility], [place]. tel: [phone] [place] [address] [facility] [address], [place], [place], [address], tel:[phone] [place] No Information May-1 9-201 4 Robles-Kenan es Octavio. [address] [place] [address], [address], [place], [facility], [place]. tel: [phone] [place] [address] [facility] [address], [place], [place], [address], tel:[phone] [place] No Information May-0 9-201 4 Cruz Nicol. [address] [place] [address], [address], [place], [facility], [place]. tel: [phone] [address], [place], [place], [address], [place] tel:[phone] [place] No Information May-0 6-201 4 Robles-Kenan es Octavio. [address] [place] [address], [address], [place], [facility], [place]. tel: [phone] [place] [address] [facility] [address], [place], [place], [address], [place] tel:[phone] [place] No Information May-0 1-201 4 Robles-Kenan es Octavio. [address] [place] [address], [address], [place], [address], [place]. tel:[phone] [facility] [place], [address] [facility], [place], [place], [address], [place] tel:[phone] [place] Pain in joint involving shoulder region 4 RoblesTeddy flores Octavio. [address] [facility], [address], [place], [address], [place]. tel:[phone] Family History Family Member Type Diagnosis Age At Onset No Information Payers Payer name Insurance type Covered democrat ID Authornidhia tiprashanth(s) [facility] [id number] [facility] [id number] Social History Type Description Quantity Date Captured Comments Sex Female Smoking Status No Information Chief Complaint And Reason For Visit No Information Reason For Referral Reason For Referral No Information History Of Present Illness Encounter Date Complaint History Of Prese nt Illness No Information Functional Status Date Functional Assessmen t No Information Instructions Date Instruction Additional Infor mation No Information Assessments Type Assessment Date No Information Patient Care Teams Name Effective Dates (start - stop) Status Members No Information
--- OUTSIDE RECORDS SUMMARY | 2024-10-17 03:12 | XMS_ITS | Encounter Summary ---
Author Organization [facility] Healthcare Address [address] [place] [address] Care Team Providers Care Delinquent Tax Collector Name Role Phone Jonathan Amado MD Primary Care Provider [phone] Jim Shelby MD Unavailable [phone] Encounter Details Date Type Department Care Team (Late st Contact Info) Description 09/27/2024 12:50 PM PLAY WRITER Lab [facility] [address] [place] [id number] Postmenopausal osteoporosis Social History Tobacco Use Types Packs/Day Years [...] and Family Not on file 12/13/2019 Attends [employer] Not on file 12/12 Active Member [...] on file Legal Sex Female 9:51 AM PLAY WRITER Gender Identity Not on file Sexual Orientation Not on file documented as of this encounter Plan of Treatment Not on file documented as of this encounter Procedures Procedure Name Priority Date/Time Associated Diagnosis Comments TRYPTASE Routine 09/27/2024 10:55 AM PLAY WRITER Postmenopausal osteoporosis VITAMIN D 25 HYDROXY Routine 09/27/2024 10:55 AM PLAY WRITER Postmenopausal osteoporosis documented in this encounter Results * (ABNORMAL) Vitamin D 25 hydroxy (09/27/2024 10:55 AM PLAY WRITER) Vitamin D 25-OH 16(L) 30 - 80 ng/mL Blood 09/27/2024 10:5 5 AM PLAY WRITER 09/27/2024 11:20 AM PLAY WRITER us Mark Vegas MD LAB BLOOD ORDERABLES Final Resul t [facility] Department [place] [address] * Tryptase (09/27/2024 10:55 AM PLAY WRITER) Tryptase Level 3.1 <11.5 ng/mL [facility] Comment: Test Performed by: [facility] [address] [place] [address] Office Spec: Denis Hawkins Ph.D.; CLIA# [id number] Blood 09/27/2024 10:5 5 AM PLAY WRITER 09/27/2024 11:27 AM PLAY WRITER us Mark Vegas MD LAB BLOOD ORDERABLES Final Resul t Performing Organization Address City/State/[facility] Co de Phone Number [facility] Department [place] [address] [facility] ref [facility] documented in this encounter Visit Diagnoses Diagnosis Postmenopausal osteoporosis documented in this encounter Care Teams Delinquent Tax Collector Relationship Specialty Start Date End Date Jonathan Amado MD PCP - General 03/18/17 Jim Shelby MD [address] [facility] [address] [place] [address] Consulting Physician Gastroenterology 06/16/19 documented as of this encounter
--- OUTSIDE RECORDS SUMMARY | 2024-10-17 03:12 | XMS_ITS | Continuity of Care Document ---
Author Organization [facility] Address [address] [place] [address] [place] [address] Phone Care Team Providers Care Report Developer Name Role Phone Rosen OD, Unavailable Unavailable Procedures Procedure Date Office/outpatient Visit, Est Office/outpatient Visit, Est Office/outpatient Visit, Est Eye Exam Established Pt Eye Exam Established Pt Advance Directives Directive Yes / No Effective Date File Name No Information Encounters Encounter Description Practice Location Reason(s) For Visit Diagnoses Date Provider Providers Copied on Encounter Office/outpat ient Visit, [facility], [address] [place] [address] [address], [place], [place], [address], [place] tel:[phone] [facility] No Information May-2 0-201 0 Rosen OD . [address] [facility] [address] [place] , [address], [place], [place], [facility], [place]. tel:[phone] Office/outpat ient Visit, [facility], [address] [place] [address] [address], [place], [place], [address], [place] tel:[phone] [facility] No Information February-1 2-201 0 Rosen OD . [address] [facility] [address] [place] , [address], [place], [facility], . tel:[phone] Office/outpat ient Visit, [facility], [address] [place] [address] [address], [place], [place], [address], tel:[phone] [facility] No Information Aug-2 0-200 9 Rosen OD . [address] , [address], [place], [place], [facility], . tel:[phone] [facility], [address], [place], [place], [address], tel:[phone] [facility] No Information 2-200 9 Rosen OD . [address] [facility] , [address], [place], [facility], [place]. tel:[phone] [facility], [address] [address], [place], [place], [address], tel:[phone] [facility] No Information 5-200 8 Rosen OD . [address] [facility] [address] , [address], [place], [facility], [place]. tel:[phone] Family History Family Member Type Diagnosis Age At Onset No Information Payers Payer name Insurance type Covered alliance party ID Jaredrafael magana(s) [facility] Commercial CI [id number] Social History Type Description Quantity Date Captured [...]
--- OUTSIDE RECORDS SUMMARY | 2024-10-17 03:12 | XMS_ITS | Encounter Summary ---
Author Organization [facility] Address [address] [place] [address] Phone Care Team Providers Care Slitter Helper Name Role Phone Jonathan Amado MD Primary Care Provider [phone] Jim Shelby MD Unavailable [phone] Reason for Visit * Reason Comments Osteoporosis * Diagnostic Imaging (Routine) - Authorized Specialty Diagnoses / Procedures Referred By Contac t Referred To Contact Diagnoses Postmenopausal osteoporosis Procedures Dexa TBS Axial Skeleton Bone Density 1 or more sites Bryant Yun MD [address] [facility] [address] [place] [address] Phone: tel: fax: [facility] (All Locations) Referral ID Status Reason Start Date Expiration Date V isits Requested Visits Authorized [id number] Authorized 09/19/2024 09/19/2025 12 12 Encounter Details Date Type Department Care Team (Latest Contact Info) Description 09/27/2024 9:50 AM WOOD FORM BUILDER Clinical Support [id number] [place] [address] [place] [address] Postmenopausal osteoporosis Social History Tobacco Use [...] and Family Not on file 12/13/2019 Attends [employer] Services Not on file 12/12 Active Member [...] on file Legal Sex Female 9:51 AM WOOD FORM BUILDER Gender Identity Not on file Sexual Orientation Not on file documented as of this encounter Plan of Treatment Not on file documented as of this encounter Procedures Procedure Name Priority Date/Time Associated Diagnosis Comments DEXA TBS AXIAL AND FOREARM BONE DENSITY SCAN Schedule Routine, Read Routine (OP Routine) 09/27/2024 9:34 AM WOOD FORM BUILDER Postmenopausal osteoporosis documented in this encounter Results * Dexa TBS Axial and Forearm Bone Density Scan (09/27/2024 9:34 AM WOOD FORM BUILDER) Anatomical Region Laterality Modality Wrist, Body N/A Radiographic [place] ging Narrative 09/27/2024 9:53 AM WOOD FORM BUILDER Patient Name: Pina Reynaga Date of : 1970 Date of scan: 09/27/2024 Bone mineral density was performed on a HoloFylet Discovery Densitometer. ?? Based on machine cross-calibration [...] by the International Society of Clinical Densitometry. [id number] Bryant Yun MD IM DXA PROCEDURES Final Re sult documented in this encounter Visit Diagnoses Diagnosis Postmenopausal osteoporosis documented in this encounter Care Teams Slitter Helper Relationship Specialty Start Date End Date Jonathan Amado MD PCP - General 03/18/17 Jim Shelby MD [address] [address] Consulting Physician Gastroenterology 06/16/19 documented as of this encounter
--- OUTSIDE RECORDS SUMMARY | 2024-10-17 03:13 | XMS_ITS | Encounter Summary ---
Author Organization [facility] Address [address] [place] [address] Phone Care Team Providers Care Hospice Admitting Clerk Name Role Phone Jonathan Amado MD Primary Care Provider [phone] Jim Shelby MD Unavailable [phone] Reason for Visit * Reason Comments Osteoporosis Encounter Details Date Type Department Care Team (Latest Contact Info) Description 11/11/2022 10:40 AM IMPREGNATOR ELECTROLYTIC CAPACITORS Office Visit [facility] [address] 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 Gender Identity Not on file Sexual Orientation Not on file documented as of this encounter Last Filed Vital Signs Vital Sign Reading Time Taken Comments Blood Pressure - - Pulse - - Temperature - - Respiratory Rate - - Oxygen Saturation - - Inhaled Oxygen Concentration - - Weight 73 kg (161 lb) 11/11/2022 10:45 AM IMPREGNATOR ELECTROLYTIC CAPACITORS Height 160 cm (5' 3 ) 11/11/2022 10:45 AM IMPREGNATOR ELECTROLYTIC CAPACITORS Body Mass Index 28.52 11/11/2022 10:45 AM IMPREGNATOR ELECTROLYTIC CAPACITORS documented in this encounter Patient Instructions * Patient Instructions* Bryant Yun MD - 11/11/2022 10:40 AM IMPREGNATOR ELECTROLYTIC CAPACITORS Bone Health Program Discharge and Information Sheet Contact: Call: [phone] or [phone] FAX: [phone] Name: Pina Reynaga Thank you for choosing the [facility] for consultation about your bone health! We hope that your experience with our program was informative, pleasant, and valuable. Following are a set of instructions that we ask you to read carefully and follow so that the recommenda tions you have received can be correctly implemented. PLAN: the following has been recommended as treatment for your bone health - Boniva (ibandronate, 1 tablet once a month) - Calcium 7701-7795 mg daily, through a combination of diet [...] Up Appointment: Please stop at the front sight attacher to make a follow-up appointment in 1 year or call [phone]. Every attempt will be made to schedule [...] to give our office a call at [phone] option # 1. Bone Density Testing: To ensure the best quality of care, we strongly recommend you have all your follow up bone density tests done at our center. Bone density tests cannot be compared between different facilities. If another physician requests a bone density test for you, please let her/him know that your bone density is being monitored by the [facility]. If your other providers have questions or would like a report of your bone density scans, they can contact [facility] [phone] or Medical Records at [phone]. Important! Always remember to stop taking your calcium supplements 24 hours before you are scheduled to have your bone density test at your next visit. If you need to make changes to your follow-up appointment or are running late to your visit at the Bone Health Program, please contact us as soon as possible at [phone] ([facility]), or [phone] ([facility]), or [phone] ([facility]). We work on a very tight schedule and depending on the circumstances it may be necessary to resched ule your appointment if no other time slot is available on the same day. [facility] patient portal allows you to view your medical records, test results, personal information,request prescription renewals, review past appointments, request new ones and securely communicate online with our office. Ask at the campus receptionist desk about receiving an invite to join [facility] portal. For questions about accessing [facility] patient portal call [phone]. Feel free to visit our web site for further information on medications, diet, exercise and other things you can do to take charge of your bone health: [email or web address] Thank you for choosing the [facility]! Your Provider has recommended Boniva (Ibandronate Sodium). Boniva is an oral medication that you will take 150 mg once per month (on the same day of the month). The prescription will be sent to a retail pharmacy of your choosing. Please confirm your pharmacy with our staff. Your Provider should have let you know if there are any labs that need to be completed before starting this medication. What should I expect from Boniva? Boniva works by slowing bone loss. This effect helps maintain strong bones and reduce the risk of fractures. Boniva belongs to a class of drugs called bisphosphonates. Take this medication by mouth once per month first thing in the morning on an empty stomach with a full glass of water. Do not lie down for at least 30 minutes. Do not eat or take other medication for at least 30 minutes. The most common side effects of Boniva are new or worsening heartburn, chest pain, pain or difficulty when swallowing. Before using this medication tell your doctor if you have trouble swallowing, disorders of the esophagus, and trouble sitting upright for at least 30 minutes, kidney problems, and ulcers. Additional information can be found at: [email or web address] EGNATOR ELECTROLYTIC CAPACITORS documented in this encounter Ordered Prescriptions Prescription Sig Dispense Quantity Refills Last Filled Start Date End Date ergocalciferol (VITAMIN D) 50,000 unit capsule Take 1 capsule (50,000 Units total) by mouth once a week Take 1 capsule every 7 days for 8 weeks 8 capsule 11/11/2022 4 documented in this encounter Progress Notes * Bryant Yun MD - 11/11/2022 10:40 AM CST Division of Bone and Mineral Disease Bone Health Program 11/11/2022 INTERVAL HISTORY: Pina Reynaga is a 52 y.o. female with a history of osteoporosis, returning for a follow-up visit. The interval has been uneventful, as far as her musculoskeletal system. Currently, she has complaints of back pain. She has had no falls and no new fractures in the past year. She has taken onecycle of prednisone Dosepak for chronic sinusitis in August 2022 For her bone health, she has not received any bone active medications. At her first visit in July 2022, we recommended Evenity, but she did not start it because her insurance company would not cover it. She is not willing to undergo a daily sc injection regimen and therefore she is here to discuss alternatives. She takes the following dietary supplements: calcium 600 mg once a day and vitamin D 4000 IU per per day. 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 ROS: All systems negative except as noted above. PHYSICAL EXAM: VITALS: Ht 160 cm (5' 3 ) Wt 73 kg (161 lb) BMI 28.52 kg/m?? Body mass index is 28.52 kg/m??. GENERAL: Well-developed 52 y.o. female in good health and no acute distress. HEENT: Normocephalic; no head deformities; no skull lumps; normal sclerae. MUSCULOSKELETAL: Straight spine, no paraspinal tenderness; no signs of joint swelling or effusion; gait steady unaided; muscle tone 5/5 throughout . EXTREMITIES: No bowing or other deformities, no ankle edema; full range of motion of upper or lowerextremities. TESTS REVIEWED: Imaging Studies: Bone Mineral Density (07/22/2022): BONE MINERAL DENSITY OF THE LUMBAR SPINE Bone Mineral Density (BMD) of the lumbar spine was measured from L1-L4 and the average density was calculated to be 0.754 gm/cm2. This corresponds to a T-score (standard deviations from the mean of young adults) of -2.7. There is no previous study available for comparison. BONE MINERAL DENSITY OF THE PROXIMAL FEMUR Bone Mineral Density (BMD) of the left hip total was found to be 0.855 gm/cm2. This corresponds to a T-score standard deviations from the mean of young adults of -0.7. Femoral neck is 0.704 gm/cm2 with a T-score (standard deviations from the mean of young adults) of -1.3. There is no previous studyavailable for comparison. SUMMARY: Bone mineral density shows evidence of osteoporosis and marked increase risk of fracture. Laboratory: Lab Results Component Value Date GLUCOSE 82 11/11/2022 CALCIUM 10.1 11/11/2022 SODIUM 139 11/11/2022 POTASSIUM 4.8 11/11/2022 CO2 29 11/11/2022 CHLORIDE 102 11/11/2022 BUNSER 11 11/11/2022 CREATININE 0.73 11/11/2022 Lab Results Component Value Date ALT 25 11/11/2022 AST 28 11/11/2022 ALKPHOS 67 11/11/2022 BILITOT 0.4 11/11/2022 Lab Results Component Value Date CALCIUM 10.1 11/11/2022 Lab Results Component Value Date 25HYDROVITD 23 (L) 11/11/2022 TESTS ORDERED: No orders of the defined types were placed in this encounter. ASSESSMENT: This is a 52 y.o. female with a history of osteoporosis and vitamin-D insufficiency. She remains athigh fracture risk and active therapy is recommended. PLAN: I reiterated my recommendation or an anabolic agent, which would bring her bone density 2 a higher level, a very important goal at this relatively young age considering the long life expectancy. However, since she cannot afford the cost of Evenity without insurance support, we will be starting her ibandronate (Boniva). The expectations will be far lower, but we should see small increments in her spine bone density. I reviewed the risks associated with oral bisphosphonate therapy including but not limited to GI upset or ulcer, arthralgia, myalgia, delayed jaw bone healing. . In addition, she should continue calcium of 8610-6063 mg per day through dietary intake or supplements and vitamin D 1,000 IU per day. Since her 25OHD is low, I have prescribed ergocalciferol 50,000IU once a week for 8 weeks. I also counseled her on healthy exercise patterns for bone health and the importance of precautionsto prevent falls. I've asked her to notify me with any problems or questions, or of any new fractures or complications related to her condition. She is to return to the clinic as already scheduled on 08/25/2023. The total visit time with Ms. Reynaga was 20 minutes, including pre-charting and record review, the visit itself, coordination of care and after visit documentation. Bryant Yun MD EGNATOR ELECTROLYTIC CAPACITORS documented in this encounter Plan of Treatment Not on file documented as of this encounter Visit Diagnoses Diagnosis Postmenopausal osteoporosis- Primary Vitamin D insufficiency documented in this encounter Discontinued Medications Medication Sig Discontinue Reason Start Date End Da te multivitamin tabletIndications:Vitam in Deficiency Prevention Take 1 tablet by mouth daily Therapy completed 11/11/2022 sucralfate (CARAFATE) 1 gram tablet TAKE 1 TABLET BY MOUTH EVERY 4 HOURS NEEDED FOR ABDOMINAL PAIN Therapy completed 11/22/2020 11/11/2022 ergocalciferol (VITAMIN D) 50,000 unit capsule Take 50,000 Units by mouth every 30 (thirty) days 11/11/2022 documented as of this encounter Care Teams Hospice Admitting Clerk Relationship Specialty Start Date End Date Jonathan Amado MD PCP - General 03/18/17 Jim Shelby MD [address] [facility] [address] [place] [address] Consulting Physician Gastroenterology 06/16/19 documented as of this encounter
--- OUTSIDE RECORDS SUMMARY | 2024-10-17 03:13 | XMS_ITS | Encounter Summary ---
Author Organization [facility] Healthcare Address [address] [place] [address] Care Team Providers Care Hospital Personnel Director Name Role Phone Jonathan Amado MD Primary Care Provider [phone] Jim Shelby MD Unavailable [phone] Encounter Details Date Type Department Care Team (Latest Contact Info) Description 03/12/2024 4:06 PM CDT - 03/12/2024 11:59 PM CDT Hospital Encounter [facility] [address] [place] [address] Discharge Disposition: Discharge to home or self care Social History Tobacco Use Types Packs/Day Years [...] and Family Not on file 12/13/2019 Attends Anabaptism Services Not on file 12/12 Active Member [...] on file 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 Gender Identity Not on file Sexual Orientation Not on file documented as of this encounter Medications at Time of Discharge acetaminophen (TYLENOL) 325 mg tablet Take 2 tablets (650 mg total) by mouth every 8 (eight) hours 30 tablet 05/30/2019 albuterol HFA (PROVENTIL HFA,VENTOLIN HFA,PROAIR HFA) 90 mcg/actuation inhaler INHALE 2 PUFFS INHALATION ROUTE EVERY 4 HOURS NEEDED azelastine 205.5 mcg (0.15 %) spray,non-aeroso l Administer 0.3 mL (2 sprays total) into affected nostril(s) 2 (two) times a day 01/28/2023 cetirizine (ZyrTEC) 10 mg tablet Take 1 tablet (10 mg total) by mouth daily EPINEPHrine 0.3 mg/0.3 mL auto-injection syringe Inject 0.3 mL (0.3 mg total) into the muscle as instructed as needed 01/12/2019 estradioL (Estrace) 0.01 % (0.1 mg/gram) vaginal creamIndications :Atrophy of Vulva Insert 2 g into the vagina 2 (two) times a week 42.5 g 2 07/18/2022 ibandronate (BONIVA) 150 mg tablet Take 1 tablet (150 mg total) by mouth every 30 (thirty) days Take in AM with glass of water prior to food, don't lie down for 30 minutes. 1 tablet 3 08/25/2023 tobramycin, bulk, 900 mcg/mg (not less than, ALF) powder Add 1 capsule of 20mg to 240ml saline (patient may mix own saline). Irrigate half in each nostril twice daily for 30 days. 07/06/2019 triamcinolone (KENALOG) 0.1 % cream APPLY TO AFFECTED AREA(S) ON HANDS TWICE A DAY NEEDED 11/30/2019 calcium carbonate-vitami n D3 1,250 mg (500 mg elemental)-125 unit per tablet 1 tablet(s), Oral, daily with breakfast, 30 tablet(s), Tablet(s), 0 09/15/2019 4 ergocalciferol (VITAMIN D) 50,000 unit capsule Take 1 capsule (50,000 Units total) by mouth once a week Take 1 capsule every 7 days for 8 weeks 8 capsule 11/11/2022 4 documented as of this encounter Discharge Disposition Disposition Code Departure Means Destination Discharge to home or self care documented in this encounter Plan of Treatment Not on file documented as of this encounter Procedures Procedure Name Priority Date/Time Associated Diagnosis Comments FABIAN SCREEN W/REFLEX SEB+DSDNA Routine 03/12/2024 2:24 PM CDT EGFR Routine 03/12/2024 2:24 PM CDT DIFFERENTIAL AUTO Routine 03/12/2024 2:2 4 PM CDT CBC WITH AUTO DIFFERENTIAL Routine 03/12/2024 2:24 PM CDT CYCLIC CITRUL PEPTIDE ANTIBODY, IGG Routine 03/12/2024 2:24 PM CDT ERYTHROCYTE SEDIMENTATION RATE Routine 03/12/2024 2:24 PM CDT RHEUMATOID FACTOR Routine 03/12/2024 2:2 4 PM CDT CREATININE Routine 03/12/2024 2:24 PM CDT HEPATIC FUNCTION PANEL Routine 2:24 PM CDT documented in this encounter Results * eGFR (03/12/2024 2:24 PM CDT) eGFR >90 >=60 mL/min/1. 73 m2 Comment: Interpretive Data Reference Interval Normal ?>/= 90 mL/min/1.73m2 Mildly decreased* ? 60 - 89 mL/min/1.73m2 Mildly to moderately decreased ?45 - 59 mL/min/1.73m2 Moderately to severely decreased ??30 - 44 mL/min/1.73m2 Severely decreased ?15 - 29 mL/min/1.73m2 Kidney Failure ?< 15 ??mL/min/1.73m2 *Relative to young adult level Estimated glomerular filtration rate is determined by the 2020 CKD-EPI equation recommended by the National Kidney Foundation (A Unifying Approach to GFR Estimation: Recommendations of the NKF-ASK Task Force on Reassessing the Inclusion of Race in Diagnosing Kidney Disease, JASN 2020). The CKD-EPI equation should not be used for patients with unstable renal function and has not been validated in children and those over 70. Current interpretive data was last reviewed 2021. Blood 03/12/2024 2:24 PM CDT 03/12/2024 5:36 PM CDT us Cristi Salinas MD LAB BLOOD ORDERABLES Fin al Result [facility] [address] Department [place] [address] * Differential, auto (03/12/2024 2:24 PM CDT) Neutrophil abs 2.0 1.5 - 6.5 K/cumm Imm gran abs 0.0 0.0 - 0.1 K/cumm [facility] Lymphocyte abs 1.9 0.8 - 3.3 K/cumm [facility] Monocyte abs 0.4 0.2 - 0.8 K/cumm [facility] Eosinophil abs 0.3 0.0 - 0.5 K/cumm [facility] Basophil abs 0.0 0.0 - 0.1 K/cumm [facility] Neutrophil pct 44.3 % [facility] Comment: Interpretive Data Percent cell count reference ranges are not reported, since discordance with absolute values may lead to misinterpretation of CBC data. Current Interpretive Data was last revised on 2018. Imm gran pct 0.2 % [facility] Comment: Interpretive Data Percent cell count reference ranges are not reported, since discordance with absolute values may lead to misinterpretation of CBC data. Current Interpretive Data was last revised on 2018. Lymphocyte pct 41.4 % [facility] Comment: Interpretive Data Percent cell count reference ranges are not reported, since discordance with absolute values may lead to misinterpretation of CBC data. Current Interpretive Data was last revised on 2018. Monocyte pct 7.7 % [facility] Comment: Interpretive Data Percent cell count reference ranges are not reported, since discordance with absolute values may lead to misinterpretation of CBC data. Current Interpretive Data was last revised on 2018. Eosinophil pct 6.0 % [facility] Comment: Interpretive Data Percent cell count reference ranges are not reported, since discordance with absolute values may lead to misinterpretation of CBC data. Current Interpretive Data was last revised on 2018. Basophil pct 0.4 % [facility] Comment: Interpretive Data Percent cell count reference ranges are not reported, since discordance with absolute values may lead to misinterpretation of CBC data. Current Interpretive Data was last revised on 2018. Blood 03/12/2024 2:2 4 PM CDT 03/12/2024 4:32 PM CDT Cristi Salinas MD LAB BLOOD ORDERABLES Fin al Result Performing Organization Address [facility] Co de Phone Number [facility] [address] Department [employer] [place], [place] [id number] * Erythrocyte sedimentation rate (03/12/2024 2:24 PM CDT) Erythrocyte sedimentation rate 2 1 - 30 mm/hr Blood 03/12/2024 2:24 PM CDT 03/12/2024 4:32 PM CDT Cristi Salinas MD LAB BLOOD ORDERABLES Fin al Result Performing Organization Address [facility] de Phone Number [facility] [address] Department [employer] [place], [place] [id number] * Cyclic citrul peptide antibody, IgG (03/12/2024 2:24 PM CDT) CCP Ab <0.5 <=2.9 units/mL Comment: Interpretive data Negative: <3 units/mL Positive: > or equal to 3 units/mL Current interpretive data was last revised on 2017. Testing performed by: [facility], [address] [place]., [address] Blood 03/12/2024 2:24 PM CDT 03/13/2024 12:20 AM CDT Cristi Salinas MD LAB BLOOD ORDERABLES Fin al Result Performing Organization Address [facility] Co de Phone Number [facility] [address] Department [employer] [place], [place] [id number] * Creatinine (03/12/2024 2:24 PM CDT) Creatinine 0.75 0.60 - 1.10 mg/dL Blood 03/12/2024 2:24 PM CDT 03/12/2024 4:31 PM CDT us Cristi Salinas MD LAB BLOOD ORDERABLES Fin jonnie Result Performing Organization Address [facility]/ZIP Co de Phone Number [facility] [address] Department [place] [address] * Hepatic function panel (03/12/2024 2:24 PM CDT) [facility] Bilirubin, total 0.4 0.1 - 1.2 mg/dL Bilirubin, direct <0.2 0.1 - 0.3 mg/dL [facility] Protein, pl 6.5 6.5 - 8.5 g/dL [facility] Albumin 4.2 3.5 - 5.0 g/dL [facility] Alk phos 83 40 - 130 Units/L [facility] ALT 24 7 - 45 Units/L [facility] AST 25 10 - 45 Units/L [facility] Blood 03/12/2024 2:24 PM CDT 03/12/2024 4:31 PM CDT us Cristi Salinas MD LAB BLOOD ORDERABLES Wilmer cristina Result Performing Organization Address [facility] Co de Phone Number [facility] [address] Department [place] [address] * CBC with auto differential (03/12/2024 2:24 PM CDT) WBC 4.5 3.8 - 9.9 K/cumm Hgb 14.2 11.9 - 15.5 g/dL [facility] Hct 41.9 35.6 - 45.5 % [facility] Plt 201 150 - 400 K/cumm [facility] MPV 11.6 9.1 - 12.3 fL [facility] RBC 4.64 3.90 - 5.20 M/cumm [facility] MCV 90.3 81.3 - 96.4 fL [facility] MCH 30.6 27.1 - 33.3 pg [facility] MCHC 33.9 32.3 - 35.7 g/dL [facility] RDW CV 12.2 11.1 - 14.9 % [facility] RDW SD 40.1 35.7 - 48.1 fL [facility] NRBC abs 0.00 0.00 - 0.01 K/cumm [facility] Blood 03/12/2024 2:24 PM CDT 03/12/2024 4:32 PM CDT Cristi Salinas MD LAB BLOOD ORDERABLES Fin al Result [facility] [address] Department of [employer] [place] [address] * Rheumatoid factor (03/12/2024 2:24 PM CDT) Rheumatoid factor, quant <10 <=15 IUnits/mL Blood 03/12/2024 2:24 PM CDT 03/12/2024 4:31 PM CDT Cristi Salinas MD LAB BLOOD ORDERABLES Fin al Result Performing Organization Address [facility] Co de Phone Number [facility] [address] Department of [employer] [place] [address] * FABIAN screen w/rflx SEB+dsDNA (03/12/2024 2:24 PM CDT) FABIAN Negative Comment: Interpretive Data Normal range for FABIAN Qualitative Antibody = Negative. 1. FABIAN is performed using indirect immunofluorescence against HEp-2 cells 2. FABIAN titers are performed on all positive qualitative results. 3. A significantly positive FABIAN result is defined as a positive nuclear fluorescence at a titer of 1:80 or greater. 4. 15% of normal people above age 65 have significantly positive FABIAN results. ??5% or less of normal people age 65 or under have significantly positive FABIAN results. Current interpretive data was last revised on 2020. Testing performed by: [facility] [address], [place]., [address] Blood 03/12/2024 2:24 PM CDT 03/13/2024 12:20 AM CDT us Cristi Salinas MD LAB BLOOD ORDERABLES Fin al Result [facility] [address] Department [place] [address] documented in this encounter Visit Diagnoses Not on filedocumented in this encounter Care Teams Hospital Personnel Director Relationship Specialty Start Date End Date Jonathan Amado MD PCP - General 03/18/17 Jim Shelby MD [address] [address] Consulting Physician Gastroenterology 06/16/19 documented as of this encounter
--- OUTSIDE RECORDS SUMMARY | 2024-10-17 03:13 | XMS_ITS | Encounter Summary ---
Author Organization [facility] Address [address] [place] [address] Phone Care Team Providers Care Medical Leader Name Role Phone Jonathan Amado MD Primary Care Provider [phone] Jim Shelby MD Unavailable [phone] Encounter Details Date Type Department Care Team (Late st Contact Info) Description 11/11/2022 Orders Only [facility] [address] [place] [address] Radha Diaz MD [address] [place] [address] Vitamin D insufficiency (Primary Dx); Age-related osteoporosis without current pathological fracture Social History Tobacco Use Types Packs/Day Years [...] and Family Not on file 12/13/2019 Attends Anabaptist Services Not on file 12/12 Active Member [...] on file 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 Gender Identity Not on file Sexual Orientation Not on file documented as of this encounter Plan of Treatment Not on file documented as of this encounter Visit Diagnoses Diagnosis Vitamin D insufficiency- Primary Age-related osteoporosis without current pathological fracture documented in this encounter Care Teams Medical Leader Relationship Specialty Start Date End Date Jonathan Amado MD PCP - General 03/18/17 Jim Shelby MD [address] [facility] [[email or web address] [address] [place] [address] Consulting Physician Gastroenterology 06/16/19 documented as of this encounter
--- OUTSIDE RECORDS SUMMARY | 2024-10-17 03:13 | XMS_ITS | Encounter Summary ---
Author Organization [facility] Address [address] [place] [address] Phone Care Team Providers Care Circular Sawyer Stone Name Role Phone Jonathan Amado MD Primary Care Provider [phone] Jim Shelby MD Unavailable [phone] Reason for Referral * Diagnostic Imaging (Routine) - Authorized Specialty Diagnoses / Procedures Referred By Contac t Referred To Contact Diagnoses Postmenopausal osteoporosis Procedures Dexa TBS Axial and Forearm Bone Density Scan Bryant Yun MD [address] [place] [address] Phone: tel: fax: [facility] (All Locations) Referral ID Status Reason Start Date Expiration Date V isits Requested Visits Authorized [id number] Authorized 08/25/2023 02/21/2025 12 12 GER AUDIT Reason for Visit * Reason Comments Osteoporosis Encounter Details Date Type Department Care Team (Latest Contact Info) Description 08/25/2023 9:20 AM MANAGER AUDIT Office Visit [facility] [address] [place] [address] [place] [address] Bryant Yun MD [address] [place] [address] Postmenopausal osteoporosis (Primary Dx); Chronic [...] on file 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AUDIT Gender Identity Not on file Sexual Orientation Not on file documented as of this encounter Patient Instructions * Patient Instructions* Bryant Yun MD - 08/25/2023 9:20 AM MANAGER AUDIT Bone Health Program Discharge and Information Sheet Contact: Call: [phone] or [phone] FAX: [phone] Name: Pina Reynaga Thank you for choosing the [facility] Program for consultation [...] 1 tablet once a month) - Calcium 6419-1236 mg daily, through a combination of diet and supplements - Vitamin D 1000 IU daily - Weight bearing activity as [...] Follow Up Appointment: Please stop at the hotel front desk agent to make a follow-up appointment in 1 year or call [phone]. Every attempt will be made to schedule [...] to give our office a call at [phone] option # 1. Bone Density Testing: To ensure the best quality of care, we strongly recommend you have all your follow up bone density tests done at our center. Bone density tests cannot be compared between different facilities. If another physician requests a bone density test for you, please let her/him know that your bone density is being monitored by the [facility]. If your other providers have questions or would like a report of your bone density scans, they can contact [facility] [phone] or Medical Records at [phone]. Important! Always remember to stop taking your calcium supplements 24 hours before you are scheduled to have your bone density test at your next visit. If you need to make changes to your follow-up appointment or are running late to your visit at the Bone Health Program, please contact us as soon as possible at [phone] ([facility]), or [phone] ([facility]), or [phone] ([facility]). We work on a very tight schedule and depending on the circumstances it may be necessary to resched ule your appointment if no other time slot is available on the same day. [facility] patient portal allows you to view your medical records, test results, personal information,request prescription renewals, review past appointments, request new ones and securely communicate online with our office. Ask at the information receptionist desk about receiving an invite to join [facility] portal. For questions about accessing [facility] patient portal call [phone]. Feel free to visit our web site for further information on medications, diet, exercise and other things you can do to take charge of your bone health: [email or web address] Thank you for choosing the [facility]! Your Provider [...] ulcers. Additional information can be found at: [email or web address] GER AUDIT documented in this encounter Ordered Prescriptions Prescription Sig Dispense Quantity Refills Last Filled Start Date End Date ibandronate (BONIVA) 150 mg tablet Take 1 tablet (150 mg total) by mouth every 30 (thirty) days Take in AM with glass of water prior to food, don't lie down for 30 minutes. 1 tablet 3 08/25/2023 documented in this encounter Progress Notes * Bryant Yun MD - 08/25/2023 9:20 AM CST Division of Bone and Mineral Disease Bone Health Program 08/25/2023 INTERVAL HISTORY: Pina Reynaga is a 53 y.o. female with a history of osteoporosis, returning for a follow-up visit. The interval has been uneventful, as far as her musculoskeletal system. Currently, she endorses back pain, mild, sometimes requiring analgesics. She has had no falls and no new fractures in thepast year. For her bone health, she has not received any bone active medications. She takes the following dietary supplements: calcium 500 mg twice a day and vitamin D 800 IU per per day. She does stay physically active, activities include walking, and gardening. ROS: All systems negative except as noted above. PHYSICAL EXAM: VITALS: There were no vitals taken for this visit. There is no height or weight on file to calculate BMI. GENERAL: Well-developed 53 y.o. female in good health and no acute distress. HEENT: Normocephalic; no head deformities. MUSCULOSKELETAL: Straight spine; gait steady unaided. EXTREMITIES: No bowing or other deformities, no ankle edema. TESTS REVIEWED: Imaging Studies: Bone Mineral Density: BONE MINERAL DENSITY OF THE LUMBAR SPINE Bone Mineral Density (BMD) of the lumbar spine was measured from L1-L4 and the average density was calculated to be 0.739 gm/cm2. This corresponds to a T-score (standard deviations from the mean of young adults) of -2.8. When compared to the previous study of 07/22/2022 there has been no significant changes in bone density. BONE MINERAL DENSITY OF THE PROXIMAL FEMUR Bone Mineral Density (BMD) of the left hip total was found to be 0.854 gm/cm2. This corresponds to a T-score standard deviations from the mean of young adults of -0.7. Femoral neck is 0.701 gm/cm2 with a T-score (standard deviations from the mean of young adults) of -1.3. When compared to the previous study of 07/22/2022 there has been no significant changes in bone density. SUMMARY: Bone mineral density shows evidence of osteoporosis and marked increase risk of fracture. There hasbeen no significant changes in bone density since previous measurement. The lumbar spine Trabecular Bone Score is 1.226 which suggests degraded bone microarchitecture compared to [...] Date 25HYDROVITD 23 (L) 11/11/2022 TESTS ORDERED: Orders Placed This Encounter Procedures Dexa TBS Axial and Forearm Bone Density Scan Vitamin D 25 hydroxy ASSESSMENT: This is a 53 y.o. female with a history of osteoporosis. Her bone density has worsened in the interval at the lumbar spine, but not at the proximal femur. However, the negative changes are relativelymodest. Her trabecular bone score confirms degraded bone microarchitecture. We discussed with the patient and her , present at the visit, the importance of starting active therapy to decrease her fracture risk and to prevent further bone loss. Both fully understands the situation and are ready to start with an oral medication. PLAN: I recommended starting ibandronate (Boniva). I explained to the patient and her that expectations from this therapy are primarily to prevent any further bone loss. I reviewed the risks associated with oral bisphosphonate therapy including but not limited to GI upset or ulcer, arthralgia, myalgia, delayed jaw bone healing. . In addition, she should continue calcium of 6464-8919 mg per day through dietary intake or supplements and vitamin D 1,000 IU per day. I also counseled her on healthy exercise patterns for bone health and the importance of precautionsto prevent falls. I've asked her to notify me with any problems or questions, or of any new fractures or complications related to her condition. She is to return to the clinic in about 1 year. The total visit time with Ms. Reynaga was 20 minutes, including pre-charting and record review, the visit itself, coordination of care and after visit documentation. Bryant Yun MD GER AUDIT documented in this encounter Plan of Treatment Not on file documented as of this encounter Results * Dexa TBS Axial and Forearm Bone Density Scan (09/27/2024 9:34 AM MANAGER AUDIT) Anatomical Region Laterality Modality Wrist, Body N/A Radiographic [place] ging Narrative 09/27/2024 9:53 AM MANAGER AUDIT Patient Name: Pina Reynaga Date of : 1970 Date of scan: 09/27/2024 Bone mineral density was performed on a [employer] Discovery Densitometer. ?? Based on machine cross-calibration [...] by the International Society of Clinical Densitometry. [id number] Bryant Yun MD IMG DXA PROCEDURES Final Re sult documented in this encounter Visit Diagnoses Diagnosis Postmenopausal osteoporosis- Primary Chronic midline thoracic back pain Postmenopausal osteoporosis documented in this encounter Historical Medications * This list may reflect changes made after this encounter. azelastine 205.5 mcg (0.15 %) spray,non-aeroso l Administer 0.3 mL (2 sprays total) into affected nostril(s) 2 (two) times a day 01/28/2023 albuterol HFA (PROVENTIL HFA,VENTOLIN HFA,PROAIR HFA) 90 mcg/actuation inhaler INHALE 2 PUFFS INHALATION ROUTE EVERY 4 HOURS NEEDED calcium carbonate-vitami n D3 1,250 mg (500 mg elemental)-125 unit per tablet 1 tablet(s), Oral, daily with breakfast, 30 tablet(s), Tablet(s), 0 09/15/2019 4 added in this encounter Care Teams Circular Sawyer Stone Relationship Specialty Start Date End Date Jonathan Amado MD PCP - General 03/18/17 Jim Shelby MD [address] [address] Consulting Physician Gastroenterology 06/16/19 documented as of this encounter
--- OUTSIDE RECORDS SUMMARY | 2024-10-17 03:13 | XMS_ITS | Encounter Summary ---
Author Organization [facility] Address [address] [place] [address] Phone Care Team Providers Care Sole Inker Name Role Phone Jonathan Amado MD Primary Care Provider [phone] Jim Shelby MD Unavailable [phone] Reason for Visit * Reason Onset Date Comments Return Call 10/21/2022 Encounter Details Date Type Department Care Team (Late st Contact Info) Description 10/21/2022 Telephone [facility] [address] [facility] Medical Office Building 2 [address] [place] [address] Bryant Yun MD [address] [place] [address] [address] [place] [address] Return Call Social History Tobacco Use Types Packs/Day Years [...] and Family Not on file 12/13/2019 Attends Quaker Services Not on file 12/12 Active Member [...] on file Legal Sex Female 9:51 AM DIRECTOR OF BUSINESS SYSTEMS Gender Identity Not on file Sexual Orientation Not on file documented as of this encounter Miscellaneous Notes * Telephone Encounter - Spencer Brown CMA - 10/21/2022 11:06 AM CST I returned patients call/voicemail message, but had to leave a message asking the patient to call the office back. CTOR OF BUSINESS SYSTEMS documented in this encounter Plan of Treatment Not on file documented as of this encounter Visit Diagnoses Not on filedocumented in this encounter Care Teams Sole Inker Relationship Specialty Start Date End Date Jonathan Amado MD PCP - General 03/18/17 Jim Shelby MD [address] [place] [id number] Consulting Physician Gastroenterology 06/16/19 documented as of this encounter
--- OUTSIDE RECORDS SUMMARY | 2024-10-17 03:13 | XMS_ITS | Encounter Summary ---
Author Organization [facility] Address [address] [place] [address] Phone Care Team Providers Care Rhit Name Role Phone Jonathan Amado MD Primary Care Provider [phone] Jim Shelby MD Unavailable [phone] Reason for Visit * Reason Onset Date Comments appointment 08/18/2023 08.25.2023 Encounter Details Date Type Department Care Team (Late st Contact Info) Description 08/18/2023 Telephone [facility] 10 [facility] Medical Office Building 2 [address] [place] [address] Bryant Yun MD [address] [place] [address] [address] [place] [address] appointment (08.25.2023) Social History Tobacco Use Types Packs/Day Years [...] and Family Not on file 12/13/2019 Attends Scientologist Services Not on file 12/12 Active Member [...] on file Legal Sex Female 9:51 AM OUTSIDE CUTTER Gender Identity Not on file Sexual Orientation Not on file documented as of this encounter Miscellaneous Notes * Telephone Encounter - Pina Fischer CMA - 08/18/2023 9:23 AM OUTSIDE CUTTER Attempted confirm patients appointment on 08.25.[address] Yun but was hung up on twice and not able to leave a voicemail. IDE CUTTER documented in this encounter Plan of Treatment Not on file documented as of this encounter Visit Diagnoses Not on filedocumented in this encounter Care Teams Rhit Relationship Specialty Start Date End Date Jonathan Amado MD PCP - General 03/18/17 Jim Shelby MD [address] [address] Consulting Physician Gastroenterology 06/16/19 documented as of this encounter
--- OUTSIDE RECORDS SUMMARY | 2024-10-17 03:13 | XMS_ITS | Encounter Summary ---
Author Organization [facility] Healthcare Address [address] [place] [address] Care Team Providers Care School Guidance Counselor Name Role Phone Jonathan Amado MD Primary Care Provider [phone] Jim Shelby MD Unavailable [phone] Encounter Details Date Type Department Care Team (Late st Contact Info) Description 11/11/2022 12:30 PM BREAKFAST SERVER Lab [facility] [address] [place] [address] Osteoporosis, unspecified osteoporosis type, unspecified pathological fracture presence Social History Tobacco Use Types Packs/Day Years [...] and Family Not on file 12/13/2019 Attends Oriental Orthodox Services Not on file 12/12 Active Member [...] on file Legal Sex Female 9:51 AM BREAKFAST SERVER Gender Identity Not on file Sexual Orientation Not on file documented as of this encounter Plan of Treatment Not on file documented as of this encounter Procedures Procedure Name Priority Date/Time Associated Diagnosis Comments EGFR Routine 11/11/2022 12:38 PM BREAKFAST SERVER Osteoporosis, unspecified osteoporosis type, unspecified pathological fracture presence VITAMIN D 25 HYDROXY Routine 11/11/2022 12:38 PM BREAKFAST SERVER Osteoporosis, unspecified osteoporosis type, unspecified pathological fracture presence COMPREHENSIVE METABOLIC PANEL Routine 11/11/2022 12:38 PM BREAKFAST SERVER Osteoporosis, unspecified osteoporosis type, unspecified pathological fracture presence documented in this encounter Results * eGFR (11/11/2022 12:38 PM BREAKFAST SERVER) Pathologist [facility] eGFR 100 mL/min/1. 73 m2 KENY RAMON Comment: Interpretive Data Reference Interval Normal ?>/= [...] interpretive data was last reviewed 2021. Blood 11/11/2022 12:3 8 PM BREAKFAST SERVER 11/11/2022 12:55 PM BREAKFAST SERVER us Radha Diaz MD LAB BLOOD ORDERABLES Final Result [facility] [address] [facility]. [place] [address] * Comprehensive metabolic panel (11/11/2022 12:38 PM BREAKFAST SERVER) Pathologist [facility] Sodium 139 135 - 145 mmol/L [facility] Potassium, pl 4.8 3.3 - 4.9 mmol/L [facility] Chloride 102 97 - 110 mmol/L [facility] CO2 29 22 - 32 mmol/L [facility] Anion gap 8 2 - 15 mmol/L [facility] BUN 11 8 - 25 mg/dL [facility] Creatinine 0.73 0.60 - 1.10 mg/dL [facility] Glucose 82 70 - 199 mg/dL [facility] Comment: Interpretive Data Fasting glucose >/= 126 mg/dl is diagnostic for diabetes. ?? Fasting is defined as no caloric intake for at least 8 hours. Fasting glucose between 100 mg/dl to 125 mg/dl is diagnostic of prediabetes. In a patient with classic symptoms of hyperglycemia or hyperglycemic crisis, a random glucose >/= 200 mg/dl is diagnostic for diabetes. In the absence of unequivocal hyperglycemia, results should be confirmed by repeat testing. The classification and Diagnosis of Diabetes Diabetes Care 2021; 46: S19-S40. Current interpretive data was last revised 2022. Calcium 10.1 8.5 - 10.3 mg/dL [facility] Bilirubin, total 0.4 0.1 - 1.2 mg/dL [facility] Protein, pl 6.8 6.5 - 8.5 g/dL [facility] Albumin 4.3 3.5 - 5.0 g/dL [facility] Alk phos 67 40 - 130 Units/L [facility] ALT 25 7 - 45 Units/L [facility] AST 28 10 - 45 Units/L [facility] Blood 11/11/2022 12:3 8 PM BREAKFAST SERVER 11/11/2022 12:55 PM BREAKFAST SERVER Radha Diaz MD LAB BLOOD ORDERABLES Final Result [facility] [address] [employer] [place], [place] [id number] * (ABNORMAL) Vitamin D 25 hydroxy (11/11/2022 12:38 PM BREAKFAST SERVER) [facility] Vitamin D 25-OH 23(L) 30 - 80 ng/mL [facility] Blood 11/11/2022 12:3 8 PM BREAKFAST SERVER 11/11/2022 12:55 PM BREAKFAST SERVER Radha Diaz MD LAB BLOOD ORDERABLES Final Result Performing Organization Address City/[facility]/ZIP Co de Phone Number [facility] [address] [facility] [place] [address] documented in this encounter Visit Diagnoses Diagnosis Osteoporosis, unspecified osteoporosis type, unspecified pathological fracture presence documented in this encounter Care Teams School Guidance Counselor Relationship Specialty Start Date End Date Jonathan Amado MD PCP - General 03/18/17 Jim Shelby MD [address] [address] Consulting Physician Gastroenterology 06/16/19 documented as of this encounter
--- OUTSIDE RECORDS SUMMARY | 2024-10-17 03:13 | XMS_ITS | Encounter Summary ---
Author Organization [facility] Healthcare Address [address] [place] [address] Care Team Providers Care Marketing Operations Assistant Name Role Phone Jonathan Amado MD Primary Care Provider [phone] Jim Shelby MD Unavailable [phone] Encounter Details Date Type Department Care Team (Latest Contact Info) Description 03/12/2024 2:00 PM CDT - 03/12/2024 11:59 PM CDT Hospital Encounter [facility] - Imaging [address] [place] [address] Inflammatory polyarthropathy (CMS/HCC) ([facility]) Discharge Disposition: Discharge to home or self [...] and Family Not on file 12/13/2019 Attends Judaism Services Not on file 12/12 Active Member [...] on file Legal Sex Female 9:51 AM SERVICE CASHIER Gender Identity Not on file Sexual Orientation [...] Name Priority Date/Time Associated Diagnosis Comments XR HAND BILATERAL 3 OR MORE VIEWS OF EACH Schedule Routine, Read Routine (OP Routine) 03/12/2024 2:41 PM CDT Inflammatory polyarthropathy (CMS/HCC) (HCC) documented in this encounter Results * XR Hand Bilateral 3 or More Views of Each (03/12/2024 2:41 PM CDT) Anatomical Region Laterality Modality Upper Extremities, Hand Digital Radiography 03/12/2024 3:10 PM CDT Impressions 03/12/2024 3:10 PM CDT Predominantly productive arthritic changes are stable bilaterally. No definite erosions are seen to confirm inflammatory arthropathy. Differential includes osteoarthritis and psoriatic arthritis. Electronically signed by: Jonas Masters MD Narrative 03/12/2024 3:10 PM CDT EXAMINATION: XR HAND BILATERAL 3 OR MORE VIEWS OF EACH HISTORY: Inflammatory polyarthropathy COMPARISON: X-rays dated 07/16/2021 FINDINGS: Right hand: There is no acute fracture or dislocation. ??There is advanced joint space loss, sclerosis, and osteophytosis at the 2nd digit distal interphalangeal joint, unchanged. ??There is otherwise mild multifocal joint space narrowing at the interphalangeal joints. No erosive changes are seen. ??There is mild generalized osseous demineralization. Left hand: There is mild multifocal arthritis most prominent at the distal interphalangeal joints. ??No erosive changes are seen. ??There is mild generalized osseous demineralization. Procedure Note Drake Masters MD - 03/12/2024 EXAMINATION: XR HAND BILATERAL 3 OR MORE VIEWS OF EACH HISTORY: Inflammatory polyarthropathy COMPARISON: X-rays dated 07/16/2021 FINDINGS: Right hand: There is no acute fracture or dislocation. There is advanced joint space loss, sclerosis, and osteophytosis at the 2nd digit distal interphalangeal joint, unchanged. There is otherwise mild multifocal joint space narrowing at the interphalangeal joints. No erosive changes are seen. There is mild generalized osseous demineralization. Left hand: There is mild multifocal arthritis most prominent at the distal interphalangeal joints. No erosive changes are seen. There is mild generalized osseous demineralization. IMPRESSION: Predominantly productive arthritic changes are stable bilaterally. No definite erosions are seen to confirm inflammatory arthropathy. Differential includes osteoarthritis and psoriatic arthritis. Electronically signed by: Jonas Masters MD Cristi Salinas MD IMG XR PROCEDURES Final Result documented in this encounter Visit Diagnoses Diagnosis Inflammatory polyarthropathy (CMS/HCC) (HCC) Unspecified inflammatory polyarthropathy documented in this encounter Care Teams Marketing Operations Assistant Relationship Specialty Start Date End Date Jonathan Amado MD PCP - General 03/18/17 Jim Shelby MD [address] [facility] [address] [place] [address] Consulting Physician Gastroenterology 06/16/19 documented as of this encounter
--- OUTSIDE RECORDS SUMMARY | 2024-10-17 03:13 | XMS_ITS | Encounter Summary ---
Author Organization [facility] Address [address] [place] [address] Phone Care Team Providers Care Jig Worker Name Role Phone Jonathan Amado MD Primary Care Provider [phone] iJm Shelby MD Unavailable [phone] Reason for Visit * Reason Comments Follow-up Encounter Details Date Type Department Care Team (Late st Contact Info) Description 11/21/2022 2:45 PM HAM CURER Office Visit [facility] Obstetrics and Gynecology [address] [facility] 1st Floor [address] [place] [address] Bruna Syed MD [address] [facility] [phone] [place], [place] [id number] Urinary urgency (Primary Dx) Social History Tobacco Use Types [...] and Family Not on file 12/13/2019 Attends Sabianism Services Not on file 12/12 Active Member [...] on file Legal Sex Female 9:51 AM HAM CURER Gender Identity Not on file Sexual Orientation Not on file documented as of this encounter Last Filed Vital Signs Vital Sign Reading Time Taken Comments Blood Pressure 124/83 11/21/2022 2:28 PM HAM CURER AUT OMATIC Pulse 62 11/21/2022 2:28 PM HAM CURER Temperature - - Respiratory Rate - - Oxygen Saturation - - Inhaled Oxygen Concentration - - Weight 73.8 kg (162 lb 9.6 oz) 11/21/2022 2:28 P M HAM CURER Height 160 cm (5' 2.99 ) 11/21/2022 2:28 PM HAM CURER Body Mass Index 28.81 11/21/2022 2:28 PM HAM CURER documented in this encounter Progress Notes * Bruna Syed MD - 11/21/2022 2:45 PM CST Patient ID: Pina Reynaga is a 52 y.o. female Subjective Chief Complaint: Follow-up HPI: 52 y.o. with PMH significant for urinary urgency who presents for f/u. Patient has a h/o TVH/urethral sling for JOSH and AUB remotely. She has a history of urinary urgency. Started on vaginal estrogen with some improvement of her symptoms, but minimal. She presents for follow-up. 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 All necessary changes were made in her chart to reflect updates. Objective BP 124/83 (BP Location: Left arm, Patient Position: Sitting) Comment: AUTOMATIC Pulse 62 Ht 160cm (5' 2.99 ) Wt 162 lb 9.6 oz (73.8 kg) BMI 28.81 kg/m?? Physical Exam General Appearance: appears stated age and cooperative, Gastrointestinal Exam: soft, non-tender; bowel sounds normal; no masses, no organomegaly, Pelvic Exam: External genitalia: normal general appearance Urinary system: urethral meatus normal No e/o erosion. Vaginal: erythematous, no discharge. Tender at anterior vaginal cuff. Musculoskeletal Exam: Normal. Skin: normal Psychiatric Exam: Normal. Void 200 PVR 20 Urine dip negative Assessment/Plan 1. Urinary urgency - Ambulatory referral order to Physical Therapy -; Future No e/o urinary retention. Hyperemia noted despite estrogen therapy. Will continue estrogen therapy.Discussed anti-spasmodic agents versus PFPT and will start PFPT. May consider a urogyn referral if this doesn't help, as I'm concerned this might be related to her prior procedure. Bruna Syed MD Time Summary 5 minutes spent Preparing to see the patient (eg.review of tests) Obtaining and or reviewing separately obtained history 10 minutes spent Performing a medically appropriate examination and/or evaluation 15 minutes spent Counseling and educating the patient/family/caregiver 0 minutes spent Documenting clinical information in the medical record 1 minutes spent Ordering medications, tests and/or procedures 1 minutes spent Referring and Communicating with other health caretaker resort 0 minutes spent Independently interpreting results and communicating results to the patient/family/caregiver. 1 minutes spent Care Coordination 33 total minutes spent on the date of the visit My total encounter time on 11/21/2022 was 33 minutes which was spent in the activities documented in the note. This includes time spent prior to the visit and after the visit in direct care of the patient. This time does not include time spent in any separately reportable services. CURER documented in this encounter Plan of Treatment Not on file documented as of this encounter Visit Diagnoses Diagnosis Urinary urgency- Primary Urgency of urination documented in this encounter Care Teams Jig Worker Relationship Specialty Start Date End Date Jonathan Amado MD PCP - General 03/18/17 Jim Shelby MD [address] [address] Consulting Physician Gastroenterology 06/16/19 documented as of this encounter
--- OUTSIDE RECORDS SUMMARY | 2024-10-17 03:13 | XMS_ITS | Encounter Summary ---
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 73 m2 Comment: Interpretive Data [...] interpretive data was last reviewed 2021. Blood 04/09/2024 10:0 7 AM CDT 04/09/2024 12:23 PM CDT us Cristi Salinas MD LAB BLOOD ORDERABLES Fin al Result [facility] [address] Department [place] [address] * Differential, auto (04/09/2024 10:07 AM CDT) Neutrophil abs 2.0 1.5 - 6.5 K/cumm Imm gran abs 0.0 0.0 - 0.1 K/cumm [facility] Lymphocyte abs 1.7 0.8 - 3.3 K/cumm [facility] Monocyte abs 0.4 0.2 - 0.8 K/cumm [facility] Eosinophil abs 0.4 0.0 - 0.5 K/cumm [facility] Basophil abs 0.0 0.0 - 0.1 K/cumm [facility] Neutrophil pct 44.6 % [facility] Comment: Interpretive Data Percent cell count reference ranges are not reported, since discordance with absolute values may lead to misinterpretation of CBC data. Current Interpretive Data was last revised on 2018. Imm gran pct 0.2 % [facility] Comment: Interpretive Data Percent cell count reference ranges are not reported, since discordance with absolute values may lead to misinterpretation of CBC data. Current Interpretive Data was last revised on 2018. Lymphocyte pct 37.3 % [facility] Comment: Interpretive Data Percent cell count reference ranges are not reported, since discordance with absolute values may lead to misinterpretation of CBC data. Current Interpretive Data was last revised on 2018. Monocyte pct 8.5 % [facility] Comment: Interpretive Data Percent cell count reference ranges are not reported, since discordance with absolute values may lead to misinterpretation of CBC data. Current Interpretive Data was last revised on 2018. Eosinophil pct 8.5 % [facility] Comment: Interpretive Data Percent cell count reference ranges are not reported, since discordance with absolute values may lead to misinterpretation of CBC data. Current Interpretive Data was last revised on 2018. Basophil pct 0.9 % [facility] Comment: Interpretive Data Percent cell count reference ranges are not reported, since discordance with absolute values may lead to misinterpretation of CBC data. Current Interpretive Data was last revised on 2018. Blood 04/09/2024 10:0 7 AM CDT 04/09/2024 12:22 PM CDT us Cristi Salinas MD LAB BLOOD ORDERABLES Fin al Result [facility] [address] Department [place] [address] * Creatinine (04/09/2024 10:07 AM CDT) Creatinine 0.79 0.60 - 1.10 mg/dL Blood 04/09/2024 10:0 7 AM CDT 04/09/2024 12:23 PM CDT Cristi Salinas MD LAB BLOOD ORDERABLES Fin al Result Performing Organization Address [facility] Co de Phone Number [facility] [address] [facility] [place], [place] [id number] * (ABNORMAL) Hepatic function panel (04/09/2024 10:07 AM CDT) [facility] Bilirubin, total 0.4 0.1 - 1.2 mg/dL Bilirubin, direct <0.2 0.1 - 0.3 mg/dL [facility] Protein, pl 6.4(L) 6.5 - 8.5 g/dL [facility] Albumin 4.3 3.5 - 5.0 g/dL [facility] Alk phos 83 40 - 130 Units/L [facility] ALT 19 7 - 45 Units/L [facility] AST 24 10 - 45 Units/L [facility] Blood 04/09/2024 10:0 7 AM CDT 04/09/2024 12:23 PM CDT Cristi Salinas MD LAB BLOOD ORDERABLES Fin al Result Performing Organization Address [facility] de Phone Number [facility] [address] [facility] [place] [address] * CBC with auto differential (04/09/2024 10:07 AM CDT) Pathologist [facility] WBC 4.5 3.8 - 9.9 K/cumm Hgb 14.3 11.9 - 15.5 g/dL [facility] Hct 41.9 35.6 - 45.5 % [facility] Plt 190 150 - 400 K/cumm [facility] MPV 11.4 9.1 - 12.[address] [facility] RBC 4.70 3.90 - 5.20 M/cumm [facility] MCV 89.1 81.3 - 96.[address] [facility] MCH 30.4 27.1 - 33.[address] [facility] MCHC 34.1 32.3 - 35.7 g/dL [facility] RDW CV 12.0 11.1 - 14.9 % [facility] RDW SD 39.2 35.7 - 48.[address] [facility] NRBC abs 0.00 0.00 - 0.01 K/cumm [facility] Blood 04/09/2024 10:0 7 AM CDT 04/09/2024 12:22 PM CDT us Cristi Salinas MD LAB BLOOD ORDERABLES Fin al Result [facility] [address] [facility] [place] [address] documented in this encounter Visit Diagnoses Not on filedocumented in this encounter Care Teams Management Tech Relationship Specialty Start Date End Date Jonathan Amado MD PCP - General 03/18/17 Jim Shelby MD [address] [address] Consulting Physician Gastroenterology 06/16/19 documented as of this encounter
--- OUTSIDE RECORDS SUMMARY | 2024-10-17 03:13 | XMS_ITS | Encounter Summary ---
Author Organization [facility] Address [address] [place] [address] Phone Care Team Providers Care Beam Builder Helper Name Role Phone Jonathan Amado MD Primary Care Provider [phone] Jim Shelby MD Unavailable [phone] Reason for Visit * Consultation (Routine) - Closed Specialty Diagnoses / Procedures Referred By Contyarelis t Referred To Contact Neurology Diagnoses Other amnesia Jonathan Amado MD Phone: tel: fax: Delicia Newman RN Referral ID Status Reason Start Date Expiration Date V isits Requested Visits Authorized [id number] Closed Specialty Services Required 03/29/2023 04/27/2024 1 1 Encounter Details Date Type Department Care Team (Late st Contact Info) Description 07/22/2023 2:00 PM CDT Office Visit [facility] [address] [place] [address] [place] [address] Tom Ellis MD [address] [place], [place] [id number] [phone]- Other amnesia Social History Tobacco Use Types Packs/Day Years Used Date Smoking Tobacco: Never Smokeless Tobacco: Never Tobacco Cessation:Counseling Given: No Alcohol Use Standard Drinks/Week Comments Never 0 [...] on file 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 Gender Identity Not on file Sexual Orientation Not on file documented as of this encounter Last Filed Vital Signs Vital Sign Reading Time Taken Comments Blood Pressure 128/87 07/22/2023 1:28 PM CDT Pulse 73 07/22/2023 1:28 PM CDT Temperature - - Respiratory Rate - - Oxygen Saturation - - Inhaled Oxygen Concentration - - Weight 74.4 kg (164 lb) 07/22/2023 1:28 PM CDT Height 160 cm (5' 2.99 ) 07/22/2023 1:28 PM CDT Body Mass Index 29.06 07/22/2023 1:28 PM CDT documented in this encounter Patient Instructions * Patient Instructions* Tom Ellis MD - 07/22/2023 2:00 PM CDT [facility] - VISIT SUMMARY & PATIENT INSTRUCTIONS For Ms. Pina Reynaga (: 1970) [facility], Department of Neurology Clinic (Nurse Delicia Newman) Who came with you to clinic today: Your Cristi Providers today were: Dr. Tom Ellis (attending physician) FEEDBACK/DIAGNOSTIC ISSUES REGARDING BRAIN HEALTH Thank you for coming to the [facility] today and for allowing us to participate in your medical care. Based on information and testing that we reviewed today, including the results of your in-office testing (including physical examination), we think that subjective cognitive decline due to an rq-qa-pev-unclear cause (that is, uncertain cause) is the most likely cause of the changes in memory and thinking that you and your family have noticed. Other possible causes of the memory changes could be contributions from severe sleep deprivation . Memory and thinking test scores today: Your test scores today were: MMSE (Mini Mental Status Exam): Mini-Mental Total Score ((out of 30): 18 A perfect score on this test is 30. A score of of between 27-30 is considered normal. A score of 24-26 is considered mildly impaired. A score of 20-23 is impaired. Scores below 20 show moderate impairment and 10 or below showssevere impairment. Short Blessed Test: Short Blessed Total Score: 25 A perfect score on the Short Blessed Test is a 0 (higher score means poorer performance). A score of 4 or below is mild impairment. Scores of 5 or more indicate impairment. The maximum (worst) score is 28. RECOMMENDATIONS FOR FURTHER TESTING We have requested that the following studies be performed: Laboratory (Blood tests): We reviewed your lab results today and no additional lab tests are needed. Imaging Studies: will obtain outside brain images Other testing: no additional testing is indicated at this time Referrals to other providers: I will request that an outpatient clinic visit be scheduled with the following service(s): Sleep Neurology Discuss with your primary care doctor: I have recommended that you follow-up with your primary carepractitioner to discuss control of vascular risk factors (e.g., high blood pressure, high cholesterol, high blood glucose) MEDICATIONS DISCUSSED TODAY No changes to your medications were recommended today. ADDITIONAL RECOMMENDATIONS/RESOURCES Nutrition: We recommend that you eat a balanced diet, including fruits and vegetables daily and regular servings of fish. Activity: We recommend that you engage in daily physical activity such as walking or stretching. Ifyou have not already done so, you should consider developing a regular exercise regimen. We recommend you do things that stimulate your mind, such as puzzles, books, working on hobbies, visiting with friends and relatives or engaging in other social and community activities. Sleep: Sleep can have a big effect on your memory and thinking. Make sure you get a good night's sleep every night. If you have trouble sleeping, make sure you follow these rules for basic sleep hygiene: -Get up at the same time every morning, regardless of how little or how poorly you sleep. -No napping during the day time. If naps are really necessary, nap for less than an hour and only nap before 3 PM. -Have a regular calm down time before going to bed. Do not work right up until bedtime. -Have a regular exercise schedule, as exercise helps consolidate sleep. -No caffeine for 6 hours before bedtime. -No watching T.V. or using the computer in your bedroom or at bedtime. -If you are not able to fall asleep after 20 minutes, get out of bed and do a relaxing activity fora few minutes. Driving: No concerns about driving safety were raised at today's visit. Safety: No safety concerns were discussed today. Legal: No legal concerns were discussed today. You may wish to consult an assistant prosecuting attorney regarding these matters. Level of Care Recommendation: You can continue to live independently. FOLLOW-UP You should return to see either Ms. Bess Rizvi NP, Ms. Yoana Rushing NP, or PATY Jeronimo in [address] Ellis in about a year. . You can [phone] if you have questions about scheduling. You should continue to see your primary care doctor at regular intervals. documented in this encounter Progress Notes * Tom Ellis MD - 07/22/2023 2:00 PM CDT [facility] NEW PATIENT VISIT Tom Ellis MD, MSc [facility] Department of Neurology Patient Name: PINA REYNAGA Medical Record Number (MRN): [id number] Date of (): 1970 Encounter Date: 07/22/2023 Referring MD: Dr. Jonathan Amado MD Primary Care Practitioner: Jonathan Wong MD CHIEF COMPLAINT Ms. Reynaga is referred by Dr. Jonathan Amado MD for the assessment of memory loss. REVIEW OF REFERRAL RECORDS Available referral records were reviewed in anticipation of today's assessment (review completed 07/22/2023), and pertinent results summarized below. Summary of referral records: SL08/11 She was seen by Dr. Huitron in Gen neuro in 2018 for memory. Brain MRI (03/2023) : done at [facility], normal per report. HISTORY OF PRESENT ILLNESS Ms. Reynaga is a 53 y.o. right handed lady with h/o duodenal ulcer, migraine, MGUS, autoimmune disease and osteoporosis, who [facility] today accompanied by her of31 years who serves as the Collateral Source (CS). Ms. Reynaga lives with her spouse, in their private home. The CS sees her daily. She is in generally fair health. The CS first noticed memory and thinking problems 5 years ago. The first problems noted were not remembering where things are. She has trouble remembering where she had placed things, not knowing theappointment times. She may be in the middle of the sentence, and not knowing what to say. She gets i rritated, if she cannot get the words out. Problems began gradually and have progressed gradually. Difficulties are now present consistently. Of note, she has chronic sleep deprivation, typically sleeping 4-5 hours at night, and taking naps in the day. Currently, she does misplace items more frequently than before. She will eventually find them. She has no difficulty managing medications. She does not require assistance managing appointments. We make sure we write down things. She cannot reliably remember a short list of items. She is reliable inrecalling details of recent events. She will not repeat questions, stories and statements. She doeshave difficulty coming up with words. She'll eventually find it. CS mostly figures it out. She doesnot have difficulty carrying on a conversation. Concerning orientation, she usually knows the day of the week, month and year. She at times has difficulty with time relationships. She is able to navigate in familiar and unfamiliar areas. Judgment and problem solving abilities are as good as ever. She has no difficulty with paying bills, balancing a checkbook, and understanding more complex issue. She is appropriate in social situations. She drives without difficulty. She does have access to firearms in the home. She will have hard t zander explaining what she wants to say. She is as active as ever in the community. She is a mostly home body. She goes to family gatherings. She is able to shop independently for needs. 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 She does not have trouble at work. Her function at home is mildly impaired. She is able to manage simple chores (e.g., washing the dishes, making her bed, and light cleaning). She is able to operate household appliances including the microwave, assistant inventory manager, laundry machines, and syrup maker cook. She has difficulty using technology, including the television remote and cell phone. She never was great but has more difficulties these days. She does not have any hobbies. She enjoys her grandkids. She is fully capable of self care. She has not fallen recently. She is fully independent and does not require a caregiver. Depression was assessed by administering the Geriatric Depression Scale; this was reviewed in psychometric package. The CS also reports that mood is fair. It depends. She can be sour and good. On direct questioning, Ms. Reynaga states that memory is fine. She states that mood is fair. Does not speak too much. When asked about the sleep, she states she stays up all the time, because he goes to sleep early, and she needs to work. 11PM- 4A. Yesterday I fell asleep on the couch. - When I am very tired, I just fall asleep. Of note, she had extremely flat affect during the interview. When work and sleep was brought up, significant tension was noticed towards to her spouse. Behavioral changes were assessed by administering the NPI-Q (Neuropsychiatric Inventory Questionnaire) to the CS: Delusions: absent Hallucinations: absent Agitation or Aggresion: present, agitated Depressed Mood: absent Anxiety: absent Elation or Euphoria: absent Apathy or Indifference: absent Disinhibition: absent Irritability or lability: present Motor: absent Nighttime behaviors/Sleep disturbance: present, she goes to sleep at 11P-12A, gets up around 4A. She gets home, and go to sleep. Takes late nap. It can be 1-2 hours. No snore. Appetite or eating issues/weight loss or gain: absent ACTIVE PROBLEMS Patient Active Problem List Diagnosis Allergic rhinitis Positive antinuclear antibody Arthritis Prepatellar bursitis Chronic frontal sinusitis Chronic sinusitis Pain in female pelvis Fibromyalgia Breast calcifications Urinary urgency Pain in left knee Pain in joint Other specified abnormal immunological findings in serum Other muscle spasm Myalgia Mid back pain Well woman exam with routine gynecological exam Dysuria Chest pain Memory loss Fatigue Abdominal pain Epigastric abdominal pain Nausea History of stomach ulcers Gastroesophageal reflux disease with esophagitis Elevated CK Urticaria Pelvic floor dysfunction in female Mixed stress and urge urinary incontinence Vaginal atrophy Anterior knee pain, right Patellofemoral pain syndrome of right knee Diarrhea Flatulence, eructation and gas pain Spasm of sphincter of Oddi Generalized abdominal pain Lower abdominal pain Osteoporosis Premature menopause PAST MEDICAL HISTORY Past Medical History: Diagnosis Date Allergic rhinitis Cervicalgia Chronic low back pain Coccygeal pain Duodenal papillary stenosis Fibromyalgia Gastric ulcer GERD (gastroesophageal reflux disease) Hiatal hernia IgA deficiency (HCC) 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 Irritable bowel syndrome Migraines MRSA (methicillin resistant Staphylococcus aureus) Osteoarthritis of knee Osteoporosis Patellar tendinitis Pneumonia PUD (peptic ulcer disease) Quadriceps tendinitis Sciatica Urinary tract infection Past Surgical History: Procedure Laterality Date BLADDER SURGERY 2002 CHOLECYSTECTOMY COLONOSCOPY DIAGNOSTIC LAPAROSCOPY 1998 ERCP In 2015 and again in April of 2019-sphincterotomies and stenting-dual sphincterotomies in April and dual duct stenting in April ERCP W/ SPHICTEROTOMY HYSTERECTOMY 2002 HYSTEROSCOPY LASIK OOPHORECTOMY Left 1999 OOPHORECTOMY Right 2010 OVARIAN CYSTECTOMY AR DILATION & CURETTAGE DX&/THER NONOBSTETRIC SINUS SURGERY TONSILLECTOMY UPPER GASTROINTESTINAL ENDOSCOPY ALLERGIES Allergies Allergen Reactions Iodinated Contrast Media Muscle pain, Anaphylaxis and Other (See comments) Sneezing, shortness of breath, body aches Other reaction(s): Myalgias And joint pain after Tenderness at infusion site Ciprofloxacin Rash and Muscle pain Doxycycline Rash and Unknown Levofloxacin Rash Sulfa (Sulfonamide Antibiotics) Other (See comments) and Rash Sulfamethoxazole-Trimethoprim Rash and Urticaria Sulfasalazine Rash Body aches Metrizamide Unknown Morphine Unknown and Nausea And Vomiting Gabapentin Headache Prochlorperazine Other (See comments) and Anxiety Anxiety and wild MEDICATIONS Current Outpatient Medications: acetaminophen (TYLENOL) 325 mg tablet, Take 2 tablets (650 mg total) by mouth every 8 (eight) hours, Disp: 30 tablet, Rfl: cetirizine (ZyrTEC) 10 mg tablet, Take 1 tablet (10 mg total) by mouth daily, Disp: , Rfl: EPINEPHrine 0.3 mg/0.3 mL auto-injection syringe, Inject 0.3 mL (0.3 mg total) into the muscle as instructed as needed, Disp: , Rfl: ergocalciferol (VITAMIN D) 50,000 unit capsule, Take 1 capsule (50,000 Units total) by mouth once aweek Take 1 capsule every 7 days for 8 weeks, Disp: 8 capsule, Rfl: 0 estradioL (Estrace) 0.01 % (0.1 mg/gram) vaginal cream, Insert 2 g into the vagina 2 (two) times a week, Disp: 42.5 g, Rfl: 2 tobramycin, bulk, 900 mcg/mg (not less than, [facility]) powder, Add 1 capsule of 20mg to 240ml saline (patient may mix own saline). Irrigate half in each nostril twice daily for 30 days., Disp: , Rfl: triamcinolone (KENALOG) 0.1 % cream, APPLY TO AFFECTED AREA(S) ON HANDS TWICE A DAY NEEDED, Disp: , Rfl: FAMILY & SOCIAL HISTORY Family History Problem Relation Age of Onset Arthritis Mother Family history of arthritis - (Added by TW Conv) Hypertension Mother Family history of hypertension - (Added by TW Conv) Osteoporosis Mother Family history of osteoporosis - (Added by TW Conv) Hypertension Father Family history of hypertension - (Added by TW Conv) Hypertension Paternal Grandmother Family history of hypertension - (Added by TW Conv) Osteoporosis Maternal Grandmother Family history of osteoporosis - (Added by TW Conv) Breast cancer Maternal Grandmother Family history of malignant neoplasm of breast - (Added by TW Conv) Ovarian cancer Maternal Grandmother Family history of ovarian cancer - (Added by TW Conv) Breast cancer Mother's Sister Family history of malignant neoplasm of breast - (Added by TW Conv) Social History Tobacco Use Smoking status: Never Smokeless tobacco: Never Substance and Sexual Activity Drug use: Never Sexual activity: Not Currently Partners: Male control/protection: Hysterectomy Alcohol Use: Not At Risk (07/17/2022) AUDIT-C Frequency of Alcohol Consumption: Never Average Number of Drinks: Not on file Frequency of Binge Drinking: Never REVIEW OF SYSTEMS See Review of Systems form filled out by the patient and/or collateral source for today's visit. Reviewed and scanned into Electronic Health Record. Pertinent positives and negatives reported in HPI.All other systems negative. PHYSICAL EXAMINATION BP 128/87 (BP Location: Right arm, Patient Position: Sitting) Pulse 73 Ht 160 cm (5' 2.99 ) Wt 74.4 kg (164 lb) BMI 29.06 kg/m?? General Assessment The patient appeared of average build and of stated age. She was dressed appropriately, and behavednormally throughout the interview, with euthymic affect and good conversational skills. No sensory intrusions / misperceptions were noted (i.e., no delusions and/or hallucinations). General physical examination revealed regular rate and rhythm without murmur. No carotid bruits were auscultated. There were no orthostatic complaints. Cranial Nerves Visual leach were full with no extinction on double simultaneous stimulation. Pupils were equal, round and reactive to light without relative afferent pupillary defect. Extraocular movements were full with normal smooth pursuit and saccadic eye movements. Facial sensation was intact in all three divisions of the trigeminal nerve. Facial movement was symmetric. Hearing was intact. Palate elevation was symmetric. Shoulder shrug and head turning were symmetric. Tongue protrusion was midline. Motor Motor exam revealed normal bulk, tone and strength throughout. Fine finger movements were symmetric. There was no pronator drift. There were no involuntary movements, including tremor. Rapid-alternating movements were completed normally (no bradykinesia). Reflexes Reflexes were symmetric at the biceps, triceps, brachioradialis and knees. Sensation Sensation was intact to pin-prick and vibratory sense. Coordination Fbvzbh-wjjf-pjzmor and nbtw-iudd-udgw testing were normal. Gait Gait was mildly abnormal, slightly decreased arm swing in the left. Romberg was negative. Neurobehavioral Examination Affect: Flat Attention and Concentration: abnormal. She could not recite months of the year backwards. Language: She was fluent throughout the interview and examination, complying with three-steps of a four-step command. Confrontational naming was intact to low-frequency words. Repetition was impaired. Orientation: She was not fully oriented to time and place. Visuospatial: She was unable to draw a clock, and indicate the correct time. She was unable to copyintersecting pentagons. Calculations: She incorrectly calculated the number of quarters in $6.75. She incorrectly performedserial subtractions (3's). Memory: She partially recalled the details of a recent event. She recalled 0/5 items on the [employer] memory phrase and 0/3 items on delayed recall testing on the MMSE. She demonstrated fair insightconcerning the purpose for today's visit. Cortical symptoms checked for parietal and occipital lobe symptoms including Gerstmann syndromes, and was normal. RECENT EVENT PER CS: They just went to the zoo over the weekend. Her, both daughters, SILs, and 2 grand kids. Friday. 10A - 2-2:30 PM. Ate there. RECENT EVENT PER P: I went to my daughters. I have grandkids. We just stayed at the house. Didn't go anywhere. With Cue - we went to the zoo on Friday. - my D, her , 2 grand kids and me. With cue - both of her daughters. - went around the zoo. They got toys. We ate the fernandes side place. I think it was pretty long. Similarities: Turnip/cauliflower:vegetable Desk/bookcase:furniture Differences: Lie/mistake: one was a mistake, the other wasn't. River/canal: river is bigger than a canal COGNITIVE TESTING REPORT Please see neurobehavioral exam results (below) and summary sheet in the chart for test scores. On formal neurobehavioral testing, which took from 1401 h to 1435 h, scores were in the mildly impaired range on tests of semantic memory (Stroud Naming, verbal fluency). Scores were in the moderately impaired range on tests of episodic memory (word list memory task, word list recall, logical memory). Scores were in the moderately impaired range on tests of speeded psychomotor performance (trailmaking A), she could not perform trailmaking B or digit symbol. On more global tests, MMSE was 18 andShort Blessed was 25 . These findings are consistent with ldlntsgl-us-mtqpzi impairment, and could be seen in, but are notspecific for subcortical disease . Ms. Reynaga indicated a positive response to 3 of 8 answers on the Geriatric Depression Screening test. She denied feeling sad, blue or depressed for two weeks or longer during the prior year. In general, 4 or more positive responses on the Geriatric Depression Screening test are common in patients with active depression. [facility]al [place] Test Results 07/22/2023 7:00 AM [facility] Exam Results Repository ICF signed? No Verbal Fluency Total Score 7 Stroud Naming (15 item) Total Score 13 MMSE Score 18 Word List Memory Task 4 Word List Recall 2 Short Blessed Total Score 25 Logical Memory Total Score 0 Trails A - Seconds to complete 73 Trails A - Errors 2 Clinical Dementia Rating 07/22/2023 7:00 AM [facility] [place]R/DIAGNOSIS NEW Repository ICF signed? No Memory 0.5 Orientation 0.5 Judgement & Problem Solving 0 Community Affairs 0 Home & Hobbies 0.5 Personal Care 0 Global Score 0.5 Sum of Boxes 1.5 Year of Onset 2017 Uncertain Dementia Yes Mood disorder (any type) Active Sleep disorder Active ADDITIONAL SUMMARY OF RELEVANT MEDICAL RECORDS/ TESTING Lab Results Component Value Date VITB12 804 06/26/2018 MTHMLNC 0.17 06/26/2018 Lab Results Component Value Date TSH 2.66 10/30/2015 Lab Results Component Value Date WBC 5.1 06/16/2019 HGB 13.3 06/16/2019 HCT 39.6 06/16/2019 MCV 92.1 06/16/2019 LABPLAT 188 06/16/2019 Lab Results Component Value Date GLUCOSE 82 11/11/2022 CALCIUM 10.1 11/11/2022 SODIUM 139 11/11/2022 POTASSIUM 4.8 11/11/2022 CO2 29 11/11/2022 CHLORIDE 102 11/11/2022 BUNSER 11 11/11/2022 CREATININE 0.73 11/11/2022 Lab Results Component Value Date ALT 25 11/11/2022 AST 28 11/11/2022 ALKPHOS 67 11/11/2022 BILITOT 0.4 11/11/2022 DIAGNOSIS AND ASSESSMENT Ms. Reynaga is a 53 y.o. lady without a family history of dementia, who presents with a 5 year history of slowly progressive cognitive decline. The pattern of decline, findings on neurological examination, psychometric test results and my neurobehavioral examination confirm mild cognitive impairment . The most likely etiologic cause is uncertain . Her cognitive test results are significantly lower than expected, however, she is also under extreme chronic sleep deprivation, with most of the time sleeping less than 5 hours nightly. There also seems to be significant stressors as well, which may impact the cognition. At the time of this visit, it is my opinion that she is able to make independent medical decisions. PLAN 1. Other amnesia 1. Diagnostic evaluation: A. Laboratory studies are reviewed and are complete. No further testing is indicated at this time. B. Will request outside images . 2. Treatment: - she would be a good candidate for CBTs for sleep as well as counseling/psychotherapy. Will also seek advice from our colleagues from sleep medicine 3. Activity: I recommended that Ms. Reynaga remain physically active and socially engaged. 4. Safety: No safety concerns were identified today. Ms. Reynaga continues to drive. I recommended the family to ride with the patient at least once monthly to monitor safety. 5. Follow-up: I will see her again in one year. She will follow-up with one of our clinic Nurse Practitioner, Ms. Bess Rizvi or Ms. Yoana Rushing, or our Physician Jewelry Repairer Ms. Meg Coleman in 6 months. --- I spent 25 minutes interpreting the results of standardized neuropsychological testing, integratingthese results into clinical decision making and treatment plan, providing interactive feedback to the patient and family member(s)/caregiver(s) and report, and documenting this in the patient's chart. In addition to the interpretation time listed above (and exclusive of that time), I spent 65 minutes on the day of the encounter on activities related to the visit including preparing to see the patient by reviewing labs, tests and medical records, time spent [id number] with the patient and family during the visit, performing counselling and education, placing orders and documenting the visit in the patient's EHR. Tom Ellis MD, MSc Cook Helper Department of Neurology, [facility] Detailed plan and patient/caregiver education and referrals are in AVS copied below: Patient Instructions [facility] - VISIT SUMMARY & PATIENT INSTRUCTIONS For Ms. Pina Reynaga (: 1970) [facility], Department of Neurology Clinic (Nurse Delicia Newman) Who came with you to clinic today: Your Cristi Providers today were: Dr. Tom Ellis (attending physician) FEEDBACK/DIAGNOSTIC ISSUES REGARDING BRAIN HEALTH Thank you for coming to the [facility] today and for allowing us to participate in your medical care. Based on information and testing that we reviewed today, including the results of your in-office testing (including physical examination), we think that subjective cognitive decline due to an [id number]-unclear cause (that is, uncertain cause) is the most likely cause of the changes in memory and thinking that you and your family have noticed. Other possible causes of the memory changes could be contributions from severe sleep deprivation . Memory and thinking test scores today: Your test scores today were: MMSE (Mini Mental Status Exam): Mini-Mental Total Score ((out of 30): 18 A perfect score on this test is 30. A score of of between 27-30 is considered normal. A score of 24-26 is considered mildly impaired. A score of 20-23 is impaired. Scores below 20 show moderate impairment and 10 or below showssevere impairment. Short Blessed Test: Short Blessed Total Score: 25 A perfect score on the Short Blessed Test is a 0 (higher score means poorer performance). A score of 4 or below is mild impairment. Scores of 5 or more indicate impairment. The maximum (worst) score is 28. RECOMMENDATIONS FOR FURTHER TESTING We have requested that the following studies be performed: Laboratory (Blood tests): We reviewed your lab results today and no additional lab tests are needed. Imaging Studies: will obtain outside brain images Other testing: no additional testing is indicated at this time Referrals to other providers: I will request that an outpatient clinic visit be scheduled with the following service(s): Sleep Neurology Discuss with your primary care doctor: I have recommended that you follow-up with your primary carepractitioner to discuss control of vascular risk factors (e.g., high blood pressure, high cholesterol, high blood glucose) MEDICATIONS DISCUSSED TODAY No changes to your medications were recommended today. ADDITIONAL RECOMMENDATIONS/RESOURCES Nutrition: We recommend that you eat a balanced diet, including fruits and vegetables daily and regular servings of fish. Activity: We recommend that you engage in daily physical activity such as walking or stretching. Ifyou have not already done so, you should consider developing a regular exercise regimen. We recommend you do things that stimulate your mind, such as puzzles, books, working on hobbies, visiting with friends and relatives or engaging in other social and community activities. Sleep: Sleep can have a big effect on your memory and thinking. Make sure you get a good night's sleep every night. If you have trouble sleeping, make sure you follow these rules for basic sleep hygiene: -Get up at the same time every morning, regardless of how little or how poorly you sleep. -No napping during the day time. If naps are really necessary, nap for less than an hour and only nap before 3 PM. -Have a regular calm down time before going to bed. Do not work right up until bedtime. -Have a regular exercise schedule, as exercise helps consolidate sleep. -No caffeine for 6 hours before bedtime. -No watching T.V. or using the computer in your bedroom or at bedtime. -If you are not able to fall asleep after 20 minutes, get out of bed and do a relaxing activity fora few minutes. Driving: No concerns about driving safety were raised at today's visit. Safety: No safety concerns were discussed today. Legal: No legal concerns were discussed today. You may wish to consult an assistant prosecuting attorney regarding these matters. Level of Care Recommendation: You can continue to live independently. FOLLOW-UP You should return to see either Ms. Bess Rizvi NP, Ms. Yoana Rushing NP, or PATY Jeronimo in [address] Ellis in about a year. . You can [phone] if you have questions about scheduling. You should continue to see your primary care doctor at regular intervals. documented in this encounter Plan of Treatment Not on file documented as of this encounter Visit Diagnoses Diagnosis Other amnesia documented in this encounter Orders Outpatient Referral Count Last Ordered Date Fir st Ordered Date AMB REFERRAL TO NEUROLOGY 1 07/22/2023 documented in this encounter Care Teams Beam Builder Helper Relationship Specialty Start Date End Date Jonathan Amado MD PCP - General 03/18/17 Jim Shelby MD [address] [address] Consulting Physician Gastroenterology 06/16/19 documented as of this encounter
--- OUTSIDE RECORDS SUMMARY | 2024-10-17 03:13 | XMS_ITS | Encounter Summary ---
Author Organization [facility] Address [address] [place] [address] Phone Care Team Providers Care Manager Intensive Care Name Role Phone Jonathan Amado MD Primary Care Provider [phone] Jim Shelby MD Unavailable [phone] Reason for Visit * Reason Comments Osteoporosis * Diagnostic Imaging (Routine) - Authorized Specialty Diagnoses / Procedures Referred By Contac t Referred To Contact Diagnoses Postmenopausal osteoporosis Procedures Dexa TBS Axial Skeleton Bone Density 1 or more sites Bryant Yun MD [address] [facility] [address] [place] [address] Phone: tel: fax: [facility] (All Locations) Referral ID Status Reason Start Date Expiration Date V isits Requested Visits Authorized [id number] Authorized 09/19/2024 09/19/2025 12 12 Encounter Details Date Type Department Care Team (Latest Contact Info) Description 08/25/2023 8:50 AM MANAGER CLINICAL PHARMACY Clinical Support [place] [id number] [facility] 5th [place] [address] [place] [address] Postmenopausal osteoporosis Social History Tobacco [...] and Family Not on file 12/13/2019 Attends [employer] Services Not on file 12/12 Active Member [...] file 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CLINICAL PHARMACY Gender Identity Not on file Sexual Orientation Not on file documented as of this encounter Last Filed Vital Signs Vital Sign Reading Time Taken Comments Blood Pressure - - Pulse - - Temperature - - Respiratory Rate - - Oxygen Saturation - - Inhaled Oxygen Concentration - - Weight 73.2 kg (161 lb 6.4 oz) 08/25/2023 9:04 A M MANAGER CLINICAL PHARMACY Height 160.5 cm (5' 3.2 ) 08/25/2023 9:04 AM MANAGER CLINICAL PHARMACY Body Mass Index 28.41 08/25/2023 9:04 AM MANAGER CLINICAL PHARMACY documented in this encounter Plan of Treatment Not on file documented as of this encounter Procedures Procedure Name Priority Date/Time Associated Diagnosis Comments DEXA TBS AXIAL SKELETON BONE DENSITY 1 OR MORE SITES Schedule Routine, Read Routine (OP Routine) 08/25/2023 9:23 AM MANAGER CLINICAL PHARMACY Postmenopausal osteoporosis documented in this encounter Results * Dexa TBS Axial Skeleton Bone Density 1 or more sites (08/25/2023 9:23 AM MANAGER CLINICAL PHARMACY) Anatomical Region Laterality Modality Wrist, Body N/A Radiographic [place] ging Narrative 08/25/2023 1:11 PM MANAGER CLINICAL PHARMACY Patient Name: Pina Reynaga Date of : 1970 Date of scan: 08/25/2023 Bone mineral density was performed on a [employer] Discovery Densitometer. ?? Based on machine cross-calibration and precision studies the least significant changes of this densitometer is 0.024 g/cm2 at the spine, 0.020 g/cm2 at the total proximal femur, and 0.014g/cm2 at the forearm. HISTORY: This is a 53 y.o. postmenopausal female with a history of osteoporosis and vitamin D deficiency. She reports that she has never smoked. She has never used smokeless tobacco. Currently on treatment with calcium and vitamin D. INDICATIONS: Menopause status, vitamin D deficiency, and [...] increase risk of fracture. There has been no significant changes in bone density since [...] bone mineral density scan were prepared by Dyan Palma(Edd) ALEX ??who is accredited by the International Society of Clinical Densitometry. The overall patient assessment and scan interpretation were performed by Bryant Yun M.D. ??who is certified by the International Society of Clinical Densitometry. [id number] Bryant Yun MD IM DXA PROCEDURES Final Re sult documented in this encounter Visit Diagnoses Diagnosis Postmenopausal osteoporosis documented in this encounter Care Teams Manager Intensive Care Relationship Specialty Start Date End Date Jonathan Amado MD PCP - General 03/18/17 Jim Shelby MD [address] [facility] [address] [place] [address] Consulting Physician Gastroenterology 06/16/19 documented as of this encounter
--- OUTSIDE RECORDS SUMMARY | 2024-10-17 03:13 | XMS_ITS | Encounter Summary ---
Author Organization [facility] Address [address] [place] [address] Care Team Providers Care Physician/Allergy/Immunology Name Role Phone Jonathan Amado MD Primary Care Provider [phone] Jim Shelby MD Unavailable [phone] Reason for Visit * MRI/CAT/PET Scan (Routine) - Closed Specialty Diagnoses / Procedures Referred By Contac t Referred To Contact Procedures Neuro MR Outside Reference Daniel Ellis MD 1 [facility] [address] [place] [address] Phone: tel: fax: Referral ID Status Reason Start Date Expiration Date Visits Re quested Visits Authorized [id number] Closed 07/25/2023 08/23/2024 1 1 Encounter Details Date Type Department Care Team (Latest Contact Info) Description 07/25/2023 2:21 PM CDT - 07/25/2023 11:59 PM CDT Hospital Encounter [facility] [address] [place] [id number] Discharge Disposition: Discharge to home or self [...] and Family Not on file 12/13/2019 Attends Rastaf[employer] Services Not on file 12/12 Active Member [...] on file Legal Sex 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 Gender Identity Not on file Sexual Orientation Not on file documented as of this encounter Medications at Time of Discharge acetaminophen (TYLENOL) 325 mg tablet Take 2 tablets (650 mg total) by mouth every 8 (eight) hours 30 tablet 05/30/2019 azelastine 205.5 mcg (0.15 %) spray,non-aeroso l [...] times a week 42.5 g 2 07/18/2022 tobramycin, bulk, 900 mcg/mg (not less than, SNF) powder Add 1 capsule of 20mg to [...] Procedure Name Priority Date/Time Associated Diagnosis Comments NEURO MR OUTSIDE REFERENCE Routine 07/25/2023 2:21 PM CDT documented in this encounter Results * Neuro MR Outside Reference (07/25/2023 2:21 PM CDT) Impressions [facility] - 07/25/2023 2:21 PM CDT These images are for Reference purposes only and have not been reviewed by [facility] Radiology. ??There will be no report generated by a [facility] Radiologist. Narrative [facility] - 07/25/2023 2:21 PM CDT EXAMINATION: ??Images For Reference Purposes Only us Daniel Ellis MD IMG MRI PROCEDURES Final Result [facility] documented in this encounter Visit Diagnoses Not on filedocumented in this encounter Care Teams Physician/Allergy/Immunology Relationship Specialty Start Date End Date Jonathan Amado MD PCP - General 03/18/17 Jim Shelby MD [address] [facility] [address] [place] [address] Consulting Physician Gastroenterology 06/16/19 documented as of this encounter
--- OUTSIDE RECORDS SUMMARY | 2024-10-17 03:13 | XMS_ITS | Encounter Summary ---
Author Organization [facility] Address [address] [place] [address] Phone Care Team Providers Care Liquor Clerk Name Role Phone Jonathan Amado MD Primary Care Provider [phone] Jim Shelby MD Unavailable [phone] Reason for Referral * Diagnostic Imaging (Routine) - Authorized Specialty Diagnoses / Procedures Referred By Contac t Referred To Contact Diagnoses Postmenopausal osteoporosis Procedures Dexa TBS Axial Skeleton Bone Density 1 or more sites Bryant Yun MD [address] [place] [address] Phone: tel: fax: [facility] (All Locations) Referral ID Status Reason Start Date Expiration Date V isits Requested Visits Authorized [id number] Authorized 09/19/2024 09/19/2025 12 12 Encounter Details Date Type Department Care Team (Late st Contact Info) Description 08/01/[address] [facility] [address] [facility] 5th [place] [address] [place] [address] Bryant Yun MD [address] [place] [address] Postmenopausal osteoporosis (Primary Dx) Social History Tobacco Use Types [...] and Family Not on file 12/13/2019 Attends Worship Services Not on file 12/12 Active Member [...] on file Legal Sex Female 9:51 AM PROJECT FINANCIAL ANALYST Gender Identity Not on file Sexual Orientation Not on file documented as of this encounter Plan of Treatment Not on file documented as of this encounter Results * Dexa TBS Axial Skeleton Bone Density 1 or more sites (08/25/2023 9:23 AM PROJECT FINANCIAL ANALYST) Anatomical Region Laterality Modality Wrist, Body N/A Radiographic [place] ging Narrative 08/25/2023 1:11 PM PROJECT FINANCIAL ANALYST Patient Name: Pina Reynaga Date of : 1970 Date of scan: 08/25/2023 Bone mineral density was performed on a [employer] Discovery Densitometer. ?? Based on machine cross-calibration [...] mineral density scan were prepared by Dyan Matthews) ALEX ??who is accredited by the International Society of Clinical Densitometry. The overall patient assessment and scan interpretation were performed by Bryant Yun M.D. ??who is certified by the International Society of Clinical Densitometry. [id number] Bryant Yun MD IMG DXA PROCEDURES Final Re sult documented in this encounter Visit Diagnoses Diagnosis Postmenopausal osteoporosis- Primary Postmenopausal osteoporosis documented in this encounter Care Teams Liquor Clerk Relationship Specialty Start Date End Date Jonathan Amado MD PCP - General 03/18/17 Jim Shelby MD [address] [address] Consulting Physician Gastroenterology 06/16/19 documented as of this encounter
--- OUTSIDE RECORDS SUMMARY | 2024-10-17 03:13 | XMS_ITS | Encounter Summary ---
Author Organization [facility] Address [address] [place] [address] Phone Care Team Providers Care Trench Digging Machine Operator Name Role Phone Jonathan Amado MD Primary Care Provider [phone] Jim Shelby MD Unavailable [phone] Encounter Details Date Type Department Care Team (Late st Contact Info) Description 10/23/2022 Telephone [facility] [address] [facility] [address] [place] [address] Bryant Yun MD [address] [place] [address] [address] [place] [address] Social History Tobacco Use Types Packs/Day Years [...] and Family Not on file 12/13/2019 Attends [employer] Services Not on file 12/12 Active Member [...] on file Legal Sex Female 9:51 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 RECRUITER documented in this encounter Plan of Treatment Not on file documented as of this encounter Visit Diagnoses Not on filedocumented in this encounter Care Teams Trench Digging Machine Operator Relationship Specialty Start Date End Date Jonathan Amado MD PCP - General 03/18/17 Jim Shelby MD [address] [address] Consulting Physician Gastroenterology 06/16/19 documented as of this encounter
--- OUTSIDE RECORDS SUMMARY | 2024-10-17 03:13 | XMS_ITS | Encounter Summary ---
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 Medications Medication Sig Discontinue Reason Start Date End Da te calcium carbonate-vitamin D3 1,250 mg (500 mg elemental)-125 unit per tablet 1 tablet(s), Oral, daily with breakfast, 30 tablet(s), Tablet(s), 0 Therapy completed 09/15/2019 08/31/2024 documented as of this encounter Care Teams Sprinkler Tender Relationship Specialty Start Date End Date Jonathan Amado MD PCP - General 03/18/17 Jim Shelby MD [address] [place] [facility] [address] [place] [address] Consulting Physician Gastroenterology 06/16/19 documented as of this encounter
--- OUTSIDE RECORDS SUMMARY | 2024-10-17 03:13 | XMS_ITS | Encounter Summary ---
Author Organization [facility] Address [address] [place] [address] Phone Care Team Providers Care Adobe Block Maker Name Role Phone Jonathan Amado MD Primary Care Provider [phone] Jim Shelby MD Unavailable [phone] Encounter Details Date Type Department Care Team (Late st Contact Info) Description 11/12/2022 Telephone [facility] [address] [facility] Medical Office Building [address] [place] [address] Bryant Yun MD [address] [place] [address] [address] [place] [address] Social History Tobacco Use Types [...] and Family Not on file 12/13/2019 Attends Jain Services Not on file 12/12 Active Member [...] on file Legal Sex Female 9:51 AM COAT IRONER HAND Gender Identity Not on file Sexual Orientation Not on file documented as of this encounter Miscellaneous Notes * Telephone Encounter - Shabbir Briscoe, [facility] - 11/12/2022 12:31 PM COAT IRONER HAND ----- Message from Radha Diaz MD sent at 11/11/2022 8:46 PM COAT IRONER HAND ----- Regarding: RE: Labs I sent patient a MyChart and ordered Vitamin D. ----- Message ----- From: Bryant Yun MD Sent: 11/11/2022 2:59 PM COAT IRONER HAND To: Radha Diaz MD, # Subject: Labs Can you let the patient know that her vitamin D is a bit low and that she should: 1- take ergocalciferol 50KIU weekly for 8 weeks, 2-continue taking 1000IU vitamin D daily, regularly. We should recheck 25OHD in 3 months. Thanks, RC IRONER HAND documented in this encounter Plan of Treatment Not on file documented as of this encounter Visit Diagnoses Not on filedocumented in this encounter Care Teams Adobe Block Maker Relationship Specialty Start Date End Date Jonathan Amado MD PCP - General 03/18/17 Jim Shelby MD [address] [place] [id number] Consulting Physician Gastroenterology 06/16/19 documented as of this encounter
--- OUTSIDE RECORDS SUMMARY | 2024-10-17 03:14 | XMS_ITS | Encounter Summary ---
Author Organization [facility] Healthcare Address [address] [place] [address] Care Team Providers Care Traffic Control Signaler Name Role Phone Jonathan Amado MD Primary Care Provider [phone] Jim Shelby MD Unavailable [phone] Encounter Details Date Type Department Care Team (Latest Contact Info) Description 07/17/2022 5:35 PM CDT - 07/17/2022 11:59 PM CDT Hospital Encounter [address] [address] Vaginal atrophy Discharge Disposition: Discharge to home or self [...] and Family Not on file 12/13/2019 Attends Congregation Services Not on file 12/12 Active Member [...] on file Legal Sex Female 9:51 AM PRAWN TRAWLER HAND Gender Identity Not on file Sexual Orientation Not on file documented as of this encounter Medications at Time of Discharge acetaminophen (TYLENOL) 325 mg tablet Take 2 tablets (650 mg total) by mouth every 8 (eight) hours 30 tablet 05/30/2019 cetirizine (ZyrTEC) 10 mg tablet Take 1 [...] tobramycin, bulk, 900 mcg/mg (not less than, [facility]) powder Add 1 capsule of 20mg to [...] Units by mouth every 30 (thirty) days 3 multivitamin tabletIndication s:Vitamin Deficiency Prevention Take 1 tablet by mouth daily 3 sucralfate (CARAFATE) 1 gram tablet TAKE 1 TABLET BY MOUTH EVERY 4 HOURS NEEDED FOR ABDOMINAL PAIN 11/22/2020 3 documented as of this encounter Discharge Disposition Disposition Code Departure Means Destination Discharge to home or self care documented in this encounter Plan of Treatment Not on file documented as of this encounter Procedures Procedure Name Priority Date/Time Associated Diagnosis Comments URINALYSIS AND REFLEX TO MICROSCOPIC Routine 07/17/2022 5:36 PM CDT Vaginal atrophy URINE CULTURE Routine 07/17/2022 5:36 PM CDT Vaginal atrophy documented in this encounter Results * (ABNORMAL) Urinalysis reflex to microscopic (07/17/2022 5:36 PM CDT) Color, ur Yellow Yellow [facility] Clarity, ur Cloudy(A) Clear [facility] Specific gravity, ur 1.020 1.003 - 1.030 [facility] pH, urine 7.5 [facility] Protein, ur ql Negative Negative [facility] Glucose, ur ql Negative Negative [facility] Ketones, ur Negative Negative [facility] Bilirubin, ur Negative Negative [facility] Blood, ur Negative Negative [facility] Urobilinogen, ur <2.0 <2.0 mg/dL [facility] Nitrite, ur Negative Negative [facility] Leukocyte esterase, ur Negative Negative [facility] UA reflex comment Reflex conditions for microscopic UA not met. [facility] Urine 07/17/2022 5:36 PM CDT 07/17/2022 8:51 PM CDT Narrative [facility] - 07/17/2022 8:56 PM CDT ?? Urine pH is affected by diet, medications, systemic acid-base disturbances, and renal tubular function. ??pH may affect urinary stone formation. ??For example, urine pH below 6.0 may help reduce the tendency for calcium phosphate stones and pH greater than 6.0 may reduce the tendency for uric acid stone formation. Source: [facility] Sisteer. Last revised 10-23-2017 Bruna Syed MD LAB URINE ORDERABLES Fi nal Result Performing Organization Address [facility] Co de Phone Number [facility] Department [place] [address] * Urine culture Urine, clean voided (07/17/2022 5:36 PM CDT) Report Final Report: Less than 100,000 colonies/mL (clinically insignificant growth based on current clinical standards) [facility] Organism (CLINICALLY INSIGNIFICANT GROWTH [facility] Urine, clean voided 07/17/2022 5:36 PM CDT 07/17/2022 9:05 PM CDT Narrative [facility] - 07/19/2022 8:42 AM CDT Testing performed by [facility] ([phone]) Bruna Syed MD LAB MICROBIOLOGY - GENE RAL ORDERABLES Final Result Performing Organization Address [facility] Co de Phone Number [facility] Department [place] [address] documented in this encounter Visit Diagnoses Diagnosis Vaginal atrophy Postmenopausal atrophic vaginitis documented in this encounter Care Teams Traffic Control Signaler Relationship Specialty Start Date End Date Jonathan Amado MD PCP - General 03/18/17 Jim Shelby MD [address] [facility] [address] [place] [address] Consulting Physician Gastroenterology 06/16/19 documented as of this encounter
--- OUTSIDE RECORDS SUMMARY | 2024-10-17 03:14 | XMS_ITS | Encounter Summary ---
Author Organization [facility] Address [address] [place] [address] Phone Care Team Providers Care Industrial Electrician Journeyman Name Role Phone Jonathan Amado MD Primary Care Provider [phone] Jim Shelby MD Unavailable [phone] Encounter Details Date Type Department Care Team (Late st Contact Info) Description 01/05/2020 Telephone [facility] Gastroenterology [address] [facility] 8th [place] [address] [place] [address] Leo Gomez MD [address] [place] [address] Social History Tobacco Use Types Packs/Day Years [...] and Family Not on file 12/13/2019 Attends Jehovah'S Witness Services Not on file 12/12 Active Member of Clubs or Organizations Not on f ile 12/13/2019 Attends Club or Organization Meetings Not on mayank e 12/13/2019 Are you , , di vorced, , never , or living with a partner? 12/13/2019 AUDIT-C Answer Date Recorded Q1: How often do you have a drink containing alc ohol? Never 12/23/2019 Average Number of Drinks Not on file 020 Frequency of Binge Drinking Not on file 12/11 Exercise Vital Sign Answer Date Recorde d Days of Exercise per Week 2 days 2019 Minutes of Exercise per Session 30 min 12/13/2019 Comments No Sex and Gender Information Value Date Recorded Sex Assigned at Not on file Legal Sex Female 9:51 AM SHANK TAPER Gender Identity Not on file Sexual Orientation Not on file COVID-19 Exposure Response Date Recorded In the last month, have you been in contact with someone who was confirmed or suspected to have Coronavirus / COVID-19? No / Unsure 12/23/2019 3:46 PM CDT documented as of this encounter Miscellaneous Notes * Telephone Encounter - Karlie Vaz RMA - 01/05/2020 11:29 AM CDT Attempted to call pt [phone] but mailbox is full and not taking any msgs. Pt needs to know that we are cancelling appt with Dr Gomez on 02/01/20 per COVID-19 protocol and to expect a call within the next few days from one of our APPLICATION ARCHITECT's to check on health status and reschedule appt. documented in this encounter Plan of Treatment Not on file documented as of this encounter Visit Diagnoses Not on filedocumented in this encounter Care Teams Industrial Electrician Journeyman Relationship Specialty Start Date End Date Jonahtan Amado MD PCP - General 03/18/17 Jim Shelby MD [id number] [address] Consulting Physician Gastroenterology 06/16/19 documented as of this encounter
--- OUTSIDE RECORDS SUMMARY | 2024-10-17 03:14 | XMS_ITS | Encounter Summary ---
Author Organization [facility] Healthcare Address [address] [place] [address] Care Team Providers Care Net Programmer Name Role Phone Jonathan Amado MD Primary Care Provider [phone] Jim Shelby MD Unavailable Reason for Referral * Diagnostic Imaging (Routine) - Closed Specialty Diagnoses / Procedures Referred By Chidi sorensen Referred To Contact Diagnoses Encounter for screening mammogram for malignant neoplasm of breast Procedures Screening Mammogram Bilateral W Leda Screening Mammogram, Self [address] [address] Referral ID Status Reason Start Date Expiration Date Visits Re quested Visits Authorized [id number] Closed 10/11/2019 04/21/2021 1 1 E THERAPIST Reason for Visit * Diagnostic Imaging (Routine) - Closed Specialty Diagnoses / Procedures Referred By Chidi sorensen Referred To Contact Diagnoses Encounter for screening mammogram for malignant neoplasm of breast Procedures Screening Mammogram Bilateral [address] Leda Screening Mammogram, Self [address] [address] Referral ID Status Reason Start Date Expiration Date Visits Re quested Visits Authorized [id number] Closed 10/11/2019 04/21/2021 1 1 Encounter Details Date Type Department Care Team (Latest Contact Info) Description 11/01/2019 8:53 AM DANCE THERAPIST - 11/01/2019 11:59 PM DANCE THERAPIST Hospital Encounter [facility] [place] [address] Screening Mammogram, Self Encounter for screening mammogram for malignant neoplasm of breast Discharge Disposition: Discharge to home or self care Social History Tobacco Use Types Packs/Day Years Used Date Smoking Tobacco: Never Smokeless Tobacco: Never Alcohol Use Standard Drinks/Week Comments No 0 (1 standard drink = 0.6 oz pur e alcohol) Comments No Sex and Gender Information Value Date Recorded Sex Assigned at Not on file Legal Sex Female 9:51 AM DANCE THERAPIST Gender Identity Not on file Sexual Orientation Not on file documented as of this encounter Medications at Time of Discharge acetaminophen (TYLENOL) 325 mg tablet Take 2 tablets (650 mg total) by mouth every 8 (eight) hours 30 tablet 9 cetirizine (ZyrTEC) 10 mg tablet Take 1 tablet (10 mg total) by mouth daily EPINEPHrine 0.3 mg/0.3 mL auto-injection syringe Inject 0.3 mL (0.3 mg total) into the muscle as instructed as needed 9 tobramycin, bulk, 900 mcg/mg (not less than, ASSISTED) powder Add 1 capsule of 20mg to 240ml saline (patient may mix own saline). Irrigate half in each nostril twice daily for 30 days. 9 calcium carbonate-vitamin D3 1,250 mg (500 mg elemental)-125 unit per tablet 1 tablet(s), Oral, daily with breakfast, 30 tablet(s), Tablet(s), 0 9 08/31/20 24 desipramine (NOPRAMIN) 10 mg tabletIndications:vis ceral hypersensitivity Take 1 tablet (10 mg total) by mouth nightly 30 tablet 3 0 07/03/20 20 estradiol (VAGIFEM) 10 mcg tablet Insert 1 tablet (10 mcg total) into the vagina once a week 12 tablet 2 9 07/17/20 22 methocarbamol (ROBAXIN) 500 mg tabletIndications:Mus erica Spasm Take 0.5 tablets (250 mg total) by mouth 3 (three) times a day as needed for muscle spasms (abdominal pain) 60 tablet 9 07/03/20 20 multivitamin tabletIndications:Vit causey Deficiency Prevention Take 1 tablet by mouth daily 11/11/[address] (PROTONIX) 40 mg EC tablet Take 40 mg by mouth 2 (two) times a day 07/17/20 22 rizatriptan (MAXALT) 10 mg tabletIndications:Don mixon Take 10 mg by mouth once as needed 07/17/20 22 documented as of this encounter Discharge Disposition Disposition Code Departure Means Destination Discharge to home or self care documented in this encounter Plan of Treatment Not on file documented as of this encounter Procedures Procedure Name Priority Date/Time Associated Diagnosis Comments SCREENING MAMMOGRAM BILATERAL W LEDA Schedule Routine, Read Routine (OP Routine) 11/01/2019 9:05 AM DANCE THERAPIST Encounter for screening mammogram for malignant neoplasm of breast documented in this encounter Results * Screening Mammogram Bilateral W Leda (11/01/2019 9:05 AM DANCE THERAPIST) Anatomical Region Laterality Modality Breast Bilateral Mammography Narrative 11/02/2019 9:07 AM DANCE THERAPIST Mammogram Technique: Bilateral Digital Breast Tomosynthesis, Bilateral C-view 2D Screening mammogram. ??Views obtained: ??bilateral craniocaudal and bilateral mediolateral oblique. ??Computer Aided Detection was performed. Mammogram Findings: The present examination has been compared to prior imaging studies performed at [facility] on 05/07/2016, 05/23/2017 and 09/07/2018. There are scattered areas of fibroglandular density. There is no suspicious abnormality in either breast. Impression: Annual screening mammography is recommended. OVERALL FINAL ASSESSMENT: BI-RADS CATEGORY 1: ??Negative. Procedure Note Patrice Huerta MD - 11/02/2019 Mammogram Technique: Bilateral Digital Breast Tomosynthesis, Bilateral C-view 2D Screening mammogram. Views obtained: bilateral craniocaudal and bilateral mediolateral oblique. Computer Aided Detection was performed. Mammogram Findings: The present examination has been compared to prior imaging studies performed at [facility] on 05/07/2016, 05/23/2017 and 09/07/2018. There are scattered areas of fibroglandular density. There is no suspicious abnormality in either breast. Impression: Annual screening mammography is recommended. OVERALL FINAL ASSESSMENT: BI-RADS CATEGORY 1: Negative. us Self Screening Mammogram IMG MAMMO PROCEDURES Fi nal Result documented in this encounter Visit Diagnoses Diagnosis Encounter for screening mammogram for malignant neoplasm of breast documented in this encounter Care Teams Net Programmer Relationship Specialty Start Date End Date Jonathan Amado MD PCP - General 03/18/17 Jim Shelby MD [address] [address] Consulting Physician Gastroenterology 06/16/19 documented as of this encounter
--- OUTSIDE RECORDS SUMMARY | 2024-10-17 03:14 | XMS_ITS | Encounter Summary ---
Author Organization [facility] Healthcare Address [address] [place] [address] Care Team Providers Care Soft Shoe Dancer Name Role Phone Jonathan Amado MD Primary Care Provider [phone] Jim Shelby MD Unavailable [phone] Reason for Visit * Diagnostic Imaging (Routine) - Closed Specialty Diagnoses / Procedures Referred By Chidi sorensen Referred To Contact Diagnoses Lump or mass in breast Procedures Screening Mammogram Bilateral W Leda DIAGNOSTIC MAMMOGRAM BILATERAL W LEDA Celia Limon MD [address] [facility] [phone] [place] [address] Phone: tel: fax: [address] [address] Referral ID Status Reason Start Date Expiration Date Visits Re quested Visits Authorized [id number] Closed 11/13/2020 12/13/2021 1 1 Encounter Details Date Type Department Care Team (Latest Contact Info) Description 12/01/2020 2:15 PM NUCLEAR SPECTROSCOPIST - 12/01/2020 11:59 PM [facility] Hospital Encounter [facility] [address] [place] [phone] Celia Limon MD [address] [facility] [phone] [place] [address] Lump or mass in breast Discharge Disposition: Discharge to home or [...] and Family Not on file 12/13/2019 Attends Gnosticism Services Not on file 12/12 Active Member [...] on file Legal Sex Female 9:51 AM NUCLEAR SPECTROSCOPIST Gender Identity Not on file Sexual Orientation [...] the muscle as instructed as needed 01/12/2019 tobramycin, bulk, 900 mcg/mg (not less than, [facility]) powder Add 1 capsule of 20mg to 240ml saline (patient may mix own saline). Irrigate half in each nostril twice daily for 30 days. 07/06/2019 triamcinolone (KENALOG) 0.1 % cream APPLY TO AFFECTED AREA(S) ON HANDS TWICE A DAY NEEDED 11/30/2019 budesonide (PULMICORT) 0.5 mg/2 mL nebulizer solution PLEASE SEE ATTACHED FOR DETAILED DIRECTIONS 05/02/2020 2 calcium carbonate-vitami n D3 1,250 mg (500 mg elemental)-125 unit per tablet 1 tablet(s), Oral, daily with breakfast, 30 tablet(s), Tablet(s), 0 09/15/2019 4 ergocalciferol (VITAMIN D) 50,000 unit capsule Take 50,000 Units by mouth every 30 (thirty) days 3 estradiol (VAGIFEM) 10 mcg tablet Insert 1 tablet (10 mcg total) into the vagina once a week 12 tablet 2 06/30/2019 2 estradioL (VAGIFEM) 10 mcg tablet Insert 1 tablet (10 mcg total) into the vagina 2 (two) times a week 30 tablet 3 07/03/2020 1 multivitamin tabletIndication s:Vitamin Deficiency Prevention Take 1 tablet by mouth daily [address] (PROTONIX) 40 mg EC tablet Take 40 mg by mouth 2 (two) times a day 2 rizatriptan (MAXALT) 10 mg tabletIndication s:Migraine Take 10 mg by mouth once as needed 2 sucralfate (CARAFATE) 1 gram tablet TAKE 1 TABLET BY MOUTH EVERY 4 HOURS NEEDED FOR ABDOMINAL PAIN 11/22/2020 3 vitamin B complex tablet extended release Take by mouth 07/17 2 documented as of this encounter Discharge Disposition Disposition Code Departure Means Destination Discharge to home or self care documented in this encounter Plan of Treatment Not on file documented as of this encounter Procedures Procedure Name Priority Date/Time Associated Diagnosis Comments SCREENING MAMMOGRAM BILATERAL W LEDA Schedule Routine, Read Routine (OP Routine) 12/01/2020 3:04 PM NUCLEAR SPECTROSCOPIST Lump or mass in breast documented in this encounter Results * Screening Mammogram Bilateral W Leda (12/01/2020 3:04 PM NUCLEAR SPECTROSCOPIST) Anatomical Region Laterality Modality Breast Bilateral Mammography Narrative 12/04/2020 1:02 PM NUCLEAR SPECTROSCOPIST Mammogram Technique: Bilateral DIAGNOSTIC MAMMOGRAM BILATERAL W LEDA ??Views obtained: ??. Computer Aided Detection was performed. Mammogram Findings: The present examination has been compared to prior imaging studies performed at [facility] on 05/23/2017 and 09/07/2018, and at [facility] on 11/01/2019. There are scattered areas of fibroglandular density. There is no suspicious abnormality in either breast. Impression: There is no mammographic evidence of malignancy. Annual screening mammography is recommended. OVERALL FINAL ASSESSMENT: BI-RADS CATEGORY 1: ??Negative. Procedure Note Debra Selby MD - 12/06/2020 Mammogram Technique: Bilateral DIAGNOSTIC MAMMOGRAM BILATERAL W LEDA Views obtained: . Computer Aided Detection was performed. Mammogram Findings: The present examination has been compared to prior imaging studies performed at [facility] on 05/23/2017 and 09/07/2018, and at [facility] on 11/01/2019. There are scattered areas of fibroglandular density. There is no suspicious abnormality in either breast. Impression: There is no mammographic evidence of malignancy. Annual screening mammography is recommended. OVERALL FINAL ASSESSMENT: BI-RADS CATEGORY 1: Negative. us Celia Limon MD IMG MAMMO PROC EDURES Final Result documented in this encounter Visit Diagnoses Diagnosis Lump or mass in breast documented in this encounter Care Teams Soft Shoe Dancer Relationship Specialty Start Date End Date Jonathan Amado MD PCP - General 03/18/17 Jim Shelby MD [id number] [address] Consulting Physician Gastroenterology 06/16/19 documented as of this encounter
--- OUTSIDE RECORDS SUMMARY | 2024-10-17 03:14 | XMS_ITS | Encounter Summary ---
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
--- OUTSIDE RECORDS SUMMARY | 2024-10-17 03:14 | XMS_ITS | Encounter Summary ---
Author Organization [facility] Healthcare Address [address] [place] [address] Care Team Providers Care Rod Greaser Name Role Phone Jonathan Amado MD Primary Care Provider [phone] Jim Shelby MD Unavailable [phone] Reason for Referral * Diagnostic Imaging (Routine) - Closed Specialty Diagnoses / Procedures Referred By Contac t Referred To Contact Diagnoses Chronic left shoulder pain Procedures X-ray shoulder left 2+ views Grupo Reese MD [address] [place] [address] Phone: tel: fax: [place] [phone] [place] [address] Referral ID Status Reason Start Date Expiration Date Visits Re quested Visits Authorized [id number] Closed 02/07/2021 03/09/2022 1 1 * Diagnostic Imaging (Routine) - Closed Specialty Diagnoses / Procedures Referred By Contac t Referred To Contact Diagnoses Mid back pain Procedures X-ray thoracic spine 2 views Grupo Reese MD [address] [place] [address] Phone: tel: fax: [place] [phone] [place] [address] Referral ID Status Reason Start Date Expiration Date Visits Re quested Visits Authorized [id number] Closed 02/07/2021 03/09/2022 1 1 Reason for Visit * Diagnostic Imaging (Routine) - Closed Specialty Diagnoses / Procedures Referred By Contac t Referred To Contact Diagnoses Mid back pain Procedures X-ray thoracic spine 2 views Grupo Reese MD [address] [facility] [address] Phone: tel: fax: [facility] [address] [place] [address] Referral ID Status Reason Start Date Expiration Date Visits Re quested Visits Authorized [id number] Closed 02/07/2021 03/09/2022 1 1 Encounter Details Date Type Department Care Team (Latest Contact Info) Description 02/07/2021 9:26 AM CDT - 02/07/2021 11:59 PM CDT Hospital Encounter [id number] [address] [facility] [address] [place] [address] Grupo Reese MD [address] [facility] 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 Unchanged mild multilevel degenerative disc disease of the thoracic spine. 2. Normal examination of the left shoulder. Electronically signed by: Shen Aldridge M.D. Narrative 02/07/2021 9:43 AM CDT EXAMINATION: XR SPINE THORACIC 2 VIEWS, XR SHOULDER LEFT 2 OR MORE VIEWS HISTORY: Mid and low back pain FINDINGS: 2 views of the thoracic spine and 4 views of the left shoulder are submitted for interpretation with comparison made to MRI of the thoracic spine dated 07/27/2016 and radiographs dated 03/16/2015. There is mild multilevel degenerative disc disease of the thoracic spine, unchanged. Thoracic vertebral body heights are normal. Normal alignment. Cholecystectomy clips are in place. The glenohumeral and acromioclavicular joint spaces are normal. Normal alignment. No acute fracture. Procedure Note Shen Aldridge MD - 02/07/2021 EXAMINATION: XR SPINE THORACIC 2 VIEWS, XR SHOULDER LEFT 2 OR MORE VIEWS HISTORY: Mid and low back pain FINDINGS: 2 views of the thoracic spine and 4 views of the left shoulder are submitted for interpretation with comparison made to MRI of the thoracic spine dated 07/27/2016 and radiographs dated 03/16/2015. There is mild multilevel degenerative disc disease of the thoracic spine, unchanged. Thoracic vertebral body heights are normal. Normal alignment. Cholecystectomy clips are in place. The glenohumeral and acromioclavicular joint spaces are normal. Normal alignment. No acute fracture. IMPRESSION: 1. Unchanged mild multilevel degenerative disc disease of the thoracic spine. 2. Normal examination of the left shoulder. Electronically signed by: Shen Aldridge M.D. Grupo Reese MD IMG XR PROCEDURES Final Res ult * X-ray thoracic spine 2 views (02/07/2021 9:40 AM CDT) Anatomical Region Laterality Modality Spine N/A Computed Radiogr aphy 02/07/2021 9:43 AM CDT Impressions 02/07/2021 9:43 AM CDT 1. Unchanged mild multilevel degenerative disc disease of the thoracic spine. 2. Normal examination of the left shoulder. Electronically signed by: Shen Aldridge M.D. Narrative 02/07/2021 9:43 AM CDT EXAMINATION: XR SPINE THORACIC 2 VIEWS, XR SHOULDER LEFT 2 OR MORE VIEWS HISTORY: Mid and low back pain FINDINGS: 2 views of the thoracic spine and 4 views of the left shoulder are submitted for interpretation with comparison made to MRI of the thoracic spine dated 07/27/2016 and radiographs dated 03/16/2015. There is mild multilevel degenerative disc disease of the thoracic spine, unchanged. Thoracic vertebral body heights are normal. Normal alignment. Cholecystectomy clips are in place. The glenohumeral and acromioclavicular joint spaces are normal. Normal alignment. No acute fracture. Procedure Note Shen Aldridge MD - 02/07/2021 EXAMINATION: XR SPINE THORACIC 2 VIEWS, XR SHOULDER LEFT 2 OR MORE VIEWS HISTORY: Mid and low back pain FINDINGS: 2 views of the thoracic spine and 4 views of the left shoulder are submitted for interpretation with comparison made to MRI of the thoracic spine dated 07/27/2016 and radiographs dated 03/16/2015. There is mild multilevel degenerative disc disease of the thoracic spine, unchanged. Thoracic vertebral body heights are normal. Normal alignment. Cholecystectomy clips are in place. The glenohumeral and acromioclavicular joint spaces are normal. Normal alignment. No acute fracture. IMPRESSION: 1. Unchanged mild multilevel degenerative disc disease of the thoracic spine. 2. Normal examination of the left shoulder. Electronically signed by: Shen Aldridge M.D. Grupo Reese MD IMG XR PROCEDURES Final Res ult documented in this encounter Visit Diagnoses Diagnosis Mid back pain Chronic left shoulder pain Pain in joint, shoulder region documented in this encounter Care Teams Rod Greaser Relationship Specialty Start Date End Date Jonathan Amado MD PCP - General 03/18/17 Jim Shelby MD [address] [place] [id number] Consulting Physician Gastroenterology 06/16/19 documented as of this encounter
--- OUTSIDE RECORDS SUMMARY | 2024-10-17 03:14 | XMS_ITS | Encounter Summary ---
Author Organization [facility] Address [address] [place] [address] Phone Care Team Providers Care Glost Placer Name Role Phone Jonathan Amado MD Primary Care Provider [phone] Jim Shelby MD Unavailable [phone] Encounter Details Date Type Department Care Team (Late st Contact Info) Description 07/16/2021 Orders Only [facility] Scanning, Provider Social History Tobacco Use Types Packs/Day Years [...] and Family Not on file 12/13/2019 Attends Temple Services Not on file 12/12 Active Member [...] on file 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 Gender Identity Not on file Sexual Orientation Not on file documented as of this encounter Plan of Treatment Not on file documented as of this encounter Procedures Procedure Name Priority Date/Time Associated Diagnosis Comments SCAN - LABS 07/16/2021 documented in this encounter Results * SCAN - LABS (07/16/2021) us Provider Scanning Final Result documented in this encounter Visit Diagnoses Not on filedocumented in this encounter Care Teams Glost Placer Relationship Specialty Start Date End Date Jonathan Amado MD PCP - General 03/18/17 Jim Shelby MD [address] [facility] [address] [place] [address] Consulting Physician Gastroenterology 06/16/19 documented as of this encounter
--- OUTSIDE RECORDS SUMMARY | 2024-10-17 03:14 | XMS_ITS | Encounter Summary ---
Author Organization [facility] Address [address] [place] [address] Phone Care Team Providers Care Filling And Packing Supervisor Name Role Phone Jonathan Amado MD Primary Care Provider [phone] Jim Shelby MD Unavailable [phone] Encounter Details Date Type Department Care Team (Late st Contact Info) Description 02/01/2020 Telephone [facility] Gastroenterology [address] 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 Medical records have been requested and we will let Jimmy know when they have been received. The pt will then be contacted. All questions answered. Call with any changes, questionsconcerns. ----- Message from Jimmy Latham NP sent at 01/26/2020 3:00 PM CDT ----- Ladies, I called her to check on her. She has been in [facility] some time in November (she was alittle unsure of the dates). She has worsening epigastric and substernal chest burning in the setting of protonix and carafate. I offered a televisit but she is concerned her [facility] will not pay so she is going to call them. I suggested the followin. She call her insurance company and verify the televisits are paid under her insurance plan with the [facility]. 2. In the interim, can we will work on obtaining records from [facility] in November of 2019for the notes, CT scan and laboratory evaluation? 3. Ariela, Just take her off Tayo's 01/31 schedule. I told her to call you Debra, so that we have the outside records before scheduling a televisit. Thanks, Jimmy documented in this encounter Plan of Treatment Not on file documented as of this encounter Visit Diagnoses Not on filedocumented in this encounter Care Teams Filling And Packing Supervisor Relationship Specialty Start Date End Date Jonathan Amado MD PCP - General 03/18/17 Jim Shelby MD [address] [address] Consulting Physician Gastroenterology 06/16/19 documented as of this encounter
--- OUTSIDE RECORDS SUMMARY | 2024-10-17 03:14 | XMS_ITS | Encounter Summary ---
Author Organization [facility] Address [address] [place] [address] Phone Care Team Providers Care Forestry Tree Pruner Name Role Phone Jonathan Amado MD Primary Care Provider [phone] Jim Shelby MD Unavailable [phone] Encounter Details Date Type Department Care Team (Late st Contact Info) Description 11/13/2020 Orders Only [facility] Obstetrics and Gynecology [address] [facility] 7th [address] [place] [address] Celia Limon MD [address] [facility] [phone] [place] [address] Lump or mass in breast (Primary Dx) Social History Tobacco Use Types [...] and Family Not on file 12/13/2019 Attends Roman Catholic Services Not on file 12/12 Active Member [...] on file 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
--- OUTSIDE RECORDS SUMMARY | 2024-10-17 03:14 | XMS_ITS | Encounter Summary ---
Author Organization [facility] Care Team Providers Care Manager Front Name Role Phone Jonathan Amado MD Primary Care Provider [phone] Jim Shelby MD Unavailable [phone] Encounter Details Date Type Department Care Team (Latest Contact Info) Description 06/16/2019 Travel Social History Tobacco Use Types Packs/Day Years Used Date Smoking Tobacco: Never Smokeless Tobacco: Never Alcohol Use Standard Drinks/Week Comments No 0 (1 standard drink = 0.6 oz pur e alcohol) Comments No Sex and Gender Information Value Date Recorded Sex Assigned at Not on file 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
--- OUTSIDE RECORDS SUMMARY | 2024-10-17 03:14 | XMS_ITS | Encounter Summary ---
Author Organization [facility] Address [address] [place] [address] Phone Care Team Providers Care Auto Carrier Driver Name Role Phone Jonathan Amado MD Primary Care Provider [phone] Jim Shelby MD Unavailable [phone] Reason for Visit * Reason Onset Date Comments Treatment Plan Update 07/22/2022 David Guzman y Encounter Details Date Type Department Care Team (Late st Contact Info) Description 07/22/2022 Telephone [facility] [address] [facility] [address] [place] [address] Bryant Yun MD [address] [place] [address] [address] [place] [address] Treatment Plan Update ([place]) Social History Tobacco Use Types Packs/Day Years [...] and Family Not on file 12/13/2019 Attends Caodaism Services Not on file 12/12 Active Member [...] on file 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 Yun response. Pt states that she may have tried Alendronate in the past and will call previous provider to see if it is included in last office note and if so will have office note faxed to office. * Telephone Encounter - Spencer Brown CMA - 08/09/2022 3:21 PM CDT Pt was denied Evenity. Please Advise? * Telephone Encounter - Harika Lee - 07/24/2022 10:58 AM CDT Images from the original note were not included. Hello, Pt must have tried and failed an oral bisphosphonate (such as risedronate [Actonel, Atelvia], alendronate [Binosto, Fosamax, Fosamax Plus D, ibandronate [Boniva] before Evenity can be approved by [facility]. Is there any reason the pt can't try one of these or Reclast prior to therapy with Evenity? Thank you, Trell * Telephone Encounter - Na Ventura CMA - 07/22/2022 9:45 AM CDT David BACA [address] Appointment request sent to KEVEN to schedule pt. documented in this encounter Plan of Treatment Not on file documented as of this encounter Visit Diagnoses Diagnosis Osteoporosis, unspecified osteoporosis type, unspecified pathological fracture presence- Primary documented in this encounter Care Teams Auto Carrier Driver Relationship Specialty Start Date End Date Jonathan Amado MD PCP - General 03/18/17 Jim Shelby MD [address] [address] Consulting Physician Gastroenterology 06/16/19 documented as of this encounter
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
--- OUTSIDE RECORDS SUMMARY | 2024-10-17 03:14 | XMS_ITS | Encounter Summary ---
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 HYDROmorphone (DILAUDID) injection 1 mg 1 mg, intravenous, Administer over 2 Minutes, Every 15 min, First dose on Fri06/16/19 at 1950, For 2 doses, Indications: Moderate to severe painIndications:Moderate to severe pain Given 06/16/2019 8:24 PM CDT 1 mg Given 06/16/2019 8:00 PM CDT 1 mg ondansetron (ZOFRAN) injection 8 mg 8 mg, intravenous, Administer over 2 Minutes, Once, On Fri06/16/19 at 1950, For 1 dose Given 06/16/2019 8:00 PM CDT 8 mg documented in this encounter Historical Medications * This list may reflect changes made after this encounter. multivitamin tabletIndications :Vitamin Deficiency Prevention Take 1 tablet by mouth daily 11/11/2022 Bifidobacterium infantis (ALIGN) 4 mg capsule Take 4 mg by mouth daily 10/19/2019 added in this encounter Active and Recently Administered Medications Times are shown in CDT. Scheduled Medication Order 06/14/2019 06/15/2019 06/16/2019 HYDROmorphone (DILAUDID) injection 1 mg (COMPLETED) 1 mg, intravenous, Administer over 2 Minutes, Every 15 min, First dose on Fri06/16/19 at 1950, For 2 doses, Indications: Moderate to severe pain 1999 (Given - Provid er: Vianney Snow RN)2023 (Given - Provider: Vianney Snow RN - Comment: provider approved) ondansetron (ZOFRAN) injection 8 mg (COMPLETED) 8 mg, intravenous, Administer over 2 Minutes, Once, On Fri06/16/19 at 1950, For 1 dose 1999 (Given - Provid er: Vianney Snow RN) documented in this encounter Orders Nursing Count Last Ordered Date First Orde red Date MISCELLANEOUS NURSING CARE ORDER (SPECIFY) 1 06/16/2019 IV Count Last Ordered Date First Orde red Date SALINE LOCK IV 1 06/16/2019 documented in this encounter Care Teams Director Of Strategic Alliances Relationship Specialty Start Date End Date Jonathan Amado MD PCP - General 03/18/17 Jim Shelby MD [address] [address] Consulting Physician Gastroenterology 06/16/19 documented as of this encounter
--- OUTSIDE RECORDS SUMMARY | 2024-10-17 03:14 | XMS_ITS | Encounter Summary ---
Author Organization [facility] Address [address] [place] [address] Phone Care Team Providers Care Medart Operator Name Role Phone Jonathan Amado MD Primary Care Provider [phone] Jim Shelby MD Unavailable [phone] Reason for Visit * Reason Comments Osteoporosis * Consultation (Routine) - Closed Specialty Diagnoses / Procedures Referred By Contac t Referred To Contact Bone Health Diagnoses Osteoporosis, unspecified osteoporosis type, unspecified pathological fracture presence [facility] [address] [place] [address] Phone: tel: [facility] (All Locations) Referral ID Status Reason Start Date Expiration Date V isits Requested Visits Authorized [id number] Closed Specialty Services Required 10/16/2021 11/15/2022 25 25 Encounter Details Date Type Department Care Team (Late st Contact Info) Description 07/22/2022 8:40 AM CDT Office Visit [facility] Bone [facility] [address] [place] [address] Bryant Yun MD [address] [facility] [address] [place] [address] Osteoporosis, unspecified osteoporosis type, unspecified pathological fracture presence (Primary Dx); Premature menopause Social History Tobacco Use Types Packs/Day Years [...] and Family Not on file 12/13/2019 Attends Jewish Services Not on file 12/12 Active Member [...] on file Legal Sex Female 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 or [phone] FAX: [phone] Name: Pina Reynaga Thank you for choosing the [facility] Program for consultation about your [...] month) - See further instructions below - Calcium 5428-5292 mg daily, through a combination of diet and supplements - Vitamin D 4000 IU daily - Weight bearing activity as [...] Up Appointment: Please stop at the front end developer to make a follow-up appointment in 1 year or call [phone]. Every attempt will be made to schedule [...] to give our office a call at [phone] option # 1. Bone Density Testing: To ensure the best quality of care, we strongly recommend you have all your follow up bone density tests done at our center. Bone density tests cannot be compared between different facilities. If another physician requests a bone density test for you, please let her/him know that your bone density is being monitored by the [facility] Program. If your other providers have questions or would like a report of your bone density scans, they can contact [facility] [phone] or Medical Records at [phone]. Important! Always remember to stop taking your calcium supplements 24 hours before you are scheduled to have your bone density test at your next visit. If you need to make changes to your follow-up appointment or are running late to your visit at the Bone Health Program, please contact us as soon as possible at [phone] ([facility]), or [phone] ([facility]), or [phone] ([facility]). We work on a very tight schedule and depending on the circumstances it may be necessary to resched ule your appointment if no other time slot is available on the same day. [employer] [facility] patient portal allows you to view your medical records, test results, personal information,request prescription renewals, review past appointments, request new ones and securely communicate online with our office. Ask at the health and safety director desk about receiving an invite to join [employer] portal. For questions about accessing [facility] [facility] patient portal call [phone]. Feel free to visit our web site for further information on medications, diet, exercise and other things you can do to take charge of your bone health: [email or web address] Thank you for choosing the [facility] Program! Your Provider has recommended [...] can be scheduled at one of our [facility]; [facility], [facility], or [facility] [address]. Your appointment can be scheduled [...] has been made at one of our [facility] then our PrecertificationDepartment will obtain a Prior Authorization from your Insurance Company if one is required. If you have a Commercial insurance there is a Copay Assistance Program. You can find the cost information and the savings card on the website at [employer]. If you have a Medicare Insurance, you can find cost information at http://[employer]. If you have not heard from our office within 2 weeks please contact our office by sending a [employer] Biggieshartmessage or calling [phone]. What should I expect from Evenity injections? [...] problems. Additional information can be found at: [email or web address]; and [email or web address]. Alternatively, we discussed Your Provider has recommended Prolia (denosumab). It is an injection that you will receive every six months (181 days). The injection is administered in your upper arm in an Infusion Center. Your Provider will inform you about the expected length of your treatment. Your Provider should have let youknow if there are any labs that need to be completed before scheduling. Compliance with Prolia schedule is an important part of the treatment and you should inform your Provider if you have difficulties with the proposed 6-month interval regimen. Your provider should be aware if you have any planned dental treatment. Scheduling/Insurance Information: Your Prolia injection can be scheduled at one of our [facility]; [facility], or [facility] [address]. If it is your preference, the injection can also be scheduled at other locations pending prior authorization and availability of trained personnel. Your appointment can be scheduled once your lab results have been received and reviewed. Please allow up to 2 weeks for your lab results to be reviewed. The office staff will send an appointment request to the Infusion Center of your choice. Then the Infusion Center will contact you directly to schedule your Prolia injection. Once your appointment has been made at one of our [facility] then our PrecertificationDepartment will obtain a Prior Authorization from your Insurance Company if one is required. If you have a Commercial Insurance, there is a Copay Assistance Program. To enroll you can either call directly at [phone] or go to the website for more detailed information at http://[employer]. If you have Medicare Insurance, you can find cost information on the website at [email or web address].better.. What should I expect from Prolia injections? Prolia (denosumab) is a human antibody that recognizes and removes a bone protein (RANKL), resulting in reduced number and function of cells that break down bone (osteoclasts). This leads to stabilization or even increase in bone density. The most common sides effects are minor discomfort at the injection site and low serum calcium. It is important to keep the 6-month schedule, since missing a dose for 3 months or longer may increase the risk of bone loss and fractures. Tell your doctor if you have any side effect that bothers you or that does not go away after receiving the injection. Additional information can be found at: [email or web address]; and [email or web address] documented in this encounter Progress Notes * Radha Diaz MD - 07/22/2022 8:40 AM CDT Division of Bone and Mineral Disease Bone Health Program 07/23/2022 HISTORY OF PRESENT ILLNESS: Pina Reynaga is a 52 y.o. female here for evaluation of osteoporosis. She has previously been diagnosed with osteoporosis through bone density testing in December 2020 through her primary care doctor. She has previously been osteopenic. She reports no previous fractures. For her bone health, she has not received any bone active medications. She went through surgical menopause around age 32. Vaginal hysterectomy in 2001, L ovary removed 1999 and ? Right ovary 2010. She used HRT patch for about 6 months after hysterectomy. She currently is not on hormone replacement. G2, P2 She has not been exposed to medications that negatively affect bone health with the exception of a very short course of steroids in 2013 (<2 months) No hx Nephrolithiasis No hx of Diabetes or thyroid disease Mom has osteoporosis and is on Fosamax; no fractures. She does stay physically active; activities include activities of daily living, tending to the yard. She takes the following dietary supplements: calcium 650mg twice a day and Vitamin D 4000 international units daily (Caltrate has 1000 international units and she takes bid and she takes another supplement with 2000 international units daily). She also occasional takes Tums that has 750 mg daily. She consumes about 1 gallon of milk per day, also like cheese, yogurt, ice cream. Over the last 10 months, she has developed back pain. She had throacolumbar xrays in 11/2021 and no compression fractures were seen. She did have evidence of levoscolisos. 1 fall in the last year. PAST MEDICAL HISTORY: - GERD, hx of GI ulcers - Erosive arthritis - Thyroid nodules Social History: reports that she has never smoked. She has never used smokeless tobacco. She reports that she does not use drugs. Patient denies consuming alcoholic drinks. Family History: family history includes Arthritis in her mother; Breast cancer in her maternal grandmother and mother's sister; Hypertension in her father, mother, and paternal grandmother; Osteoporosis in her maternal grandmother and mother; Ovarian cancer in her maternal grandmother. PHYSICAL EXAM: VITALS: Ht 161.3 cm (5' 3.5 ) Wt 70.3 kg (155 lb) BMI 27.03 kg/m?? Body mass index is 27.03 kg/m??. GENERAL: Well-developed 52 y.o. female in good health and no acute distress. HEENT: Normocephalic; no head deformities; normal sclerae. MUSCULOSKELETAL: Straight spine, no paraspinal tenderness; no signs of joint swelling or effusion; gait steady unaided; EXTREMITIES: No bowing or other deformities, no ankle edema; full range of motion of upper or lowerextremities. TESTS REVIEWED: Imaging Studies: Bone Mineral Density 07/22/22: BONE MINERAL DENSITY OF THE LUMBAR SPINE [...] There is no previous studyavailable for comparison. Laboratory: Lab Results Component Value Date GLUCOSE 91 06/16/2019 CALCIUM 9.1 06/16/2019 SODIUM 141 06/16/2019 POTASSIUM 4.2 06/16/2019 CO2 28 06/16/2019 CHLORIDE 103 06/16/2019 BUNSER 13 06/16/2019 CREATININE 0.71 06/16/2019 Lab Results Component Value Date ALT 18 06/16/2019 AST 27 06/16/2019 ALKPHOS 65 06/16/2019 BILITOT 0.4 06/16/2019 Lab Results Component Value Date CALCIUM 9.1 06/16/2019 No results found for: [id number], VIMIND, [id number], 25HYDROVITD, ISCZ70EX, [id number], VITAMIND TESTS ORDERED: Orders Placed This Encounter Procedures Vitamin D 25 hydroxy Comprehensive metabolic panel ASSESSMENT: Pina Reyngaa is a 52 y.o. female with osteoporosis. Factors that contribute to her osteoporosis and increased fragility fractures include: being postmenopausal not on hormone replacement therapy and premature menopause. PLAN: To reduce fracture risk, I recommended active therapy with romosozumab (Evenity). We reviewed all options with her including bisphosphonate therapy, denosumab, and anabolic therapy. She is a great candidate for anabolic therapy to get maximal improvement with bone density and follow with either Prolia or Reclast. She does not like the idea of daily injection and thus we discussed Evenity for 1 year. She will review options and get back to us. I reviewed the risks associated with romosozumab therapy, including joint pain, low serum calcium, and increased risk of cardiovascular events (myocardial infarction, stroke and ) in subjects who have had similar events in the previous year . She should also decrease calcium to 9950-8255 mg per day through dietary intake or supplements and continue vitamin D 4,000 IU per day. Will check a vitamin D level I also counseled her on healthy exercise patterns for bone health and the importance of precautionsto prevent falls. I've asked her to notify me with any problems or questions, or of any new fractures or complications related to her condition. She is to return to the clinic in about 1 year. The total visit time with was 40 minutes, including pre-charting and record review, thevisit itself, coordination of care and after visit documentation. Radha Diaz MD Cosigned by Bryant Yun MD at 07/23/2022 11:51 AM CDT documented in this encounter Miscellaneous Notes * Addendum Note - Kaylan Arreola - 07/22/2022 8:40 AM CDTAddended by: KAYLAN ARREOLA on: 11/11/2022 12:31 PM Modules accepted: Orders CIPAL CONSULTANT documented in this encounter Plan of Treatment Not on file documented as of this encounter Results * (ABNORMAL) Vitamin D 25 hydroxy (11/11/2022 12:38 PM PRINCIPAL CONSULTANT) Vitamin D 25-OH 23(L) 30 - 80 ng/mL [facility]ON Blood 11/11/2022 12:3 8 PM PRINCIPAL CONSULTANT 11/11/2022 12:55 PM PRINCIPAL CONSULTANT us Radha Diaz MD LAB BLOOD ORDERABLES Final Result [facility] [address] [facility] Department of [place], [place] [id number] * Comprehensive metabolic panel (11/11/2022 12:38 PM PRINCIPAL CONSULTANT) Sodium 139 135 - 145 mmol/L CERNER [...] CERNER [facility] Blood 11/11/2022 12:3 8 PM PRINCIPAL CONSULTANT 11/11/2022 12:55 PM PRINCIPAL CONSULTANT Radha Diaz MD LAB BLOOD ORDERABLES Final Result [facility] [address] [facility] Department [place] [address] documented in this encounter Visit Diagnoses Diagnosis Osteoporosis, unspecified osteoporosis type, unspecified pathological fracture presence- Primary Premature menopause documented in this encounter Orders Outpatient Referral Count Last Ordered Date Fir st Ordered Date AMB REFERRAL TO [facility] 1 07/22/2022 documented in this encounter Care Teams Medart Operator Relationship Specialty Start Date End Date Jonathan Amado MD PCP - General 03/18/17 Jim Shelby MD [id number] [address] Consulting Physician Gastroenterology 06/16/19 documented as of this encounter
--- OUTSIDE RECORDS SUMMARY | 2024-10-17 03:14 | XMS_ITS | Encounter Summary ---
Author Organization [facility] Healthcare Address [address] [place] [address] Care Team Providers Care Hide And Skin Fleshing Machine Operator Name Role Phone Jonathan Amado MD Primary Care Provider [phone] Jim Shelby MD Unavailable [phone] Encounter Details Date Type Department Care Team (Latest Contact Info) Description 07/16/2021 1:57 PM CDT - 07/16/2021 11:59 PM CDT Hospital Encounter [facility] [address] [place] [address] Pain in joint, multiple sites Discharge Disposition: Discharge to home or self [...] and Family Not on file 12/13/2019 Attends Holiness Services Not on file 12/12 Active Member [...] on file Legal Sex Female 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 Gender Identity Not on file Sexual [...] tobramycin, bulk, 900 mcg/mg (not less than, NURSING HOME) powder Add 1 capsule of 20mg [...] a week 12 tablet 2 06/30/2019 2 multivitamin tabletIndication s:Vitamin Deficiency Prevention Take 1 [...] EACH Schedule Routine, Read Routine (OP Routine) 07/16/2021 2:09 PM CDT Pain in joint, multiple sites documented in this encounter Results * XR Hand Bilateral 3 or More Views of Each (07/16/2021 2:09 PM CDT) Anatomical Region Laterality Modality Upper Extremities, Hand Computed Radiography 07/16/2021 3:58 PM CDT Impressions 07/16/2021 3:58 PM CDT Arthritic changes are evident in both hands, right greater than left. ??Questioned erosive osteoarthritis versus psoriatic arthritis. Electronically signed by: Toro Gomez M.D. Narrative 07/16/2021 3:58 PM CDT Exam: XR HAND BILATERAL 3 OR MORE VIEWS OF EACH Date/Time of Exam: 07/16/2021 2:00 PM Reason For Exam: Pain in the joints of both hands. Diagnosis: Pain in joint, multiple sites [M25.50 (ICD-10-CM)] Findings: There are no signs of acute fracture or dislocation of the bony structures of either hand. ??There is arthritic narrowing of the interphalangeal joints of both hands but predominantly much greater in severity in the right hand than the left. ??The interphalangeal joints are narrowed. ??In the right hand, mild hypertrophic bony changes are developing about the joint margins. ??More advanced hypertrophic bony changes present about the margins of the 2nd distal interphalangeal joint of the right hand. ??There is question of very tiny early erosions developing about the distal interphalangeal joints of the right hand. ??The metacarpophalangeal joints are relatively well-preserved. Procedure Note Toro Gomez MD - 07/16/2021 Exam: XR HAND BILATERAL 3 OR MORE VIEWS OF EACH Date/Time of Exam: 07/16/2021 2:00 PM Reason For Exam: Pain in the joints of both hands. Diagnosis: Pain in joint, multiple sites [M25.50 (ICD-10-CM)] Findings: There are no signs of acute fracture or dislocation of the bony structures of either hand. There is arthritic narrowing of the interphalangeal joints of both hands but predominantly much greater in severity in the right hand than the left. The interphalangeal joints are narrowed. In the right hand, mild hypertrophic bony changes are developing about the joint margins. More advanced hypertrophic bony changes present about the margins of the 2nd distal interphalangeal joint of the right hand. There is question of very tiny early erosions developing about the distal interphalangeal joints of the right hand. The metacarpophalangeal joints are relatively well-preserved. IMPRESSION: Arthritic changes are evident in both hands, right greater than left. Questioned erosive osteoarthritis versus psoriatic arthritis. Electronically signed by: Toro Gomez M.D. Cristi Salinas MD IMG XR PROCEDURES Final Result documented in this encounter Visit Diagnoses Diagnosis Pain in joint, multiple sites documented in this encounter Care Teams Hide And Skin Fleshing Machine Operator Relationship Specialty Start Date End Date Jonathan Amado MD PCP - General 03/18/17 Jim Shelby MD [id number] [address] Consulting Physician Gastroenterology 06/16/19 documented as of this encounter
--- OUTSIDE RECORDS SUMMARY | 2024-10-17 03:14 | XMS_ITS | Encounter Summary ---
Author Organization [facility] Address [address] [place] [address] Phone Care Team Providers Care Bullet Slug Casting Machine Operator Name Role Phone Jonathan Amado MD Primary Care Provider [phone] Jim Shelby MD Unavailable [phone] Reason for Referral * Diagnostic Imaging (Routine) - Closed Specialty Diagnoses / Procedures Referred By Contac t Referred To Contact Diagnoses Osteoporosis, unspecified osteoporosis type, unspecified pathological fracture presence Procedures Dexa Axial Skeleton Bone Density 1 or 2 Site Bryant Yun MD [facility] [address] [place] [address] Phone: tel: fax: [facility] (All Locations) Referral ID Status Reason Start Date Expiration Date Visits Re quested Visits Authorized [id number] Closed 07/22/2022 08/21/2023 1 1 Reason for Visit * Reason Comments Osteoporosis * Diagnostic Imaging (Routine) - Closed Specialty Diagnoses / Procedures Referred By Contac t Referred To Contact Diagnoses Osteoporosis, unspecified osteoporosis type, unspecified pathological fracture presence Procedures Dexa Axial Skeleton Bone Density 1 or 2 Site Bryant Yun MD [facility] [place] [address] Phone: tel: fax: [facility] (All Locations) Referral ID Status Reason Start Date Expiration Date Visits Re quested Visits Authorized [id number] Closed 07/22/2022 08/21/2023 1 1 Encounter Details Date Type Department Care Team (Latest Contact Info) Description 07/22/2022 8:10 AM CDT Clinical Support [facility] [address] [place] [address] Osteoporosis, unspecified osteoporosis type, unspecified pathological fracture presence (Primary Dx) Social History Tobacco Use Types [...] and Family Not on file 12/13/2019 Attends Islam Services Not on file 12/12 Active Member [...] on file 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 Gender Identity Not on file Sexual Orientation Not on file documented as of this encounter Plan of Treatment Not on file documented as of this encounter Procedures Procedure Name Priority Date/Time Associated Diagnosis Comments DEXA AXIAL SKELETON BONE DENSITY 1 OR MORE SITES Schedule Routine, Read Routine (OP Routine) 07/22/2022 8:24 AM CDT Osteoporosis, unspecified osteoporosis type, unspecified pathological fracture presence documented in this encounter Results * Dexa Axial Skeleton Bone Density 1 or 2 Site (07/22/2022 8:24 AM CDT) Anatomical Region Laterality Modality Body N/A Radiographic [place] ging Narrative 07/22/2022 10:15 AM CDT Patient Name: Pina Reynaga Date of : 1970 Date of scan: 07/22/2022 Bone mineral density was performed on a [employer] Discovery Densitometer. ?? Based on machine cross-calibration and precision studies the least significant changes of this densitometer is 0.024 g/cm2 at the spine, 0.020 g/cm2 at the total proximal femur, and 0.014g/cm2 at the forearm. HISTORY: This is a 52 y.o. postmenopausal female with a history of asthma, osteoporosis, thyroid disease, and vitamin D deficiency. She reports that she has never smoked. She has never used smokeless tobacco. Currently on treatment with calcium and vitamin D, previously treated with glucocorticoids, and current complaint of back pain and leg pain. INDICATIONS: Menopause status, history of glucocorticoids use, vitamin D deficiency, and history of osteoporosis. [...] adults) of -1.3. There is no previous study available for comparison. SUMMARY: Bone mineral density shows evidence of osteoporosis and marked increase risk of fracture. Please note there is an internal artifact that cannot be removed in the lumbar spine scan. ADDITIONAL COMMENTS: Postmenopausal Women and Men Over [...] bone mineral density scan were prepared by Ai Palma(Edd)(Tay)(BD) CBDT who is accredited by the International Society of Clinical Densitometry. The overall patient assessment and scan interpretation were performed by Bryant Yun MD who is certified by the International Society of Clinical Densitometry. [id number] Bryant Yun MD IMG DXA PROCEDURES Final Re sult documented in this encounter Visit Diagnoses Diagnosis Osteoporosis, unspecified osteoporosis type, unspecified pathological fracture presence- Primary documented in this encounter Care Teams Bullet Slug Casting Machine Operator Relationship Specialty Start Date End Date Jonathan Amado MD PCP - General 03/18/17 Jim Shelby MD [address] [facility] [address] [place] [address] Consulting Physician Gastroenterology 06/16/19 documented as of this encounter
--- OUTSIDE RECORDS SUMMARY | 2024-10-17 03:14 | XMS_ITS | Encounter Summary ---
Author Organization [facility] Healthcare Address [address] [place] [address] Care Team Providers Care Residential Child Care Counselor Name Role Phone Jonathan Amado MD Primary Care Provider [phone] Jim Shelby MD Unavailable [phone] Reason for Referral * Diagnostic Imaging (Routine) - Closed Specialty Diagnoses / Procedures Referred By Contac t Referred To Contact Diagnoses Screening mammogram, encounter for Procedures Screening Mammogram Bilateral W Leda Screening Mammogram, Self [facility] Referral ID Status Reason Start Date Expiration Date Visits Re quested Visits Authorized [id number] Closed 12/19/2021 01/18/2023 1 1 * Diagnostic Imaging (Routine) - Closed Specialty Diagnoses / Procedures Referred By Contac t Referred To Contact Diagnoses Screening mammogram, encounter for Procedures Screening Mammogram Bilateral W Leda Screening Mammogram, Self [facility] Referral ID Status Reason Start Date Expiration Date Visits Re quested Visits Authorized [id number] Closed 12/19/2021 01/18/2023 1 1 HT ATTENDANT/INFLIGHT SUPERVISOR Reason for Visit * Diagnostic Imaging (Routine) - Closed Specialty Diagnoses / Procedures Referred By Contac t Referred To Contact Diagnoses Screening mammogram, encounter for Procedures Screening Mammogram Bilateral W Leda Screening Mammogram, Self [facility] Referral ID Status Reason Start Date Expiration Date Visits Re quested Visits Authorized [id number] Closed 12/19/2021 01/18/2023 1 1 Encounter Details Date Type Department Care Team (Latest Contact Info) Description 12/24/2021 2:08 PM CDT - 12/24/2021 11:59 PM CDT Hospital Encounter [facility] Breast [facility] [address] [place] [address] Screening Mammogram, Self Screening mammogram, encounter for Discharge Disposition: Discharge to home or self [...] on file Legal Sex Female 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 ??Views obtained: ??bilateral craniocaudal and bilateral mediolateral oblique. ??Computer Aided Detection was performed. Mammogram Findings: The present examination has been compared to prior imaging studies performed at [facility] on 09/07/2018 and 12/01/2020, and at [facility] on 11/01/2019. There are scattered [...] compared to prior imaging studies performed at [facility] on 09/07/2018 and 12/01/2020, and at [facility] on 11/01/2019. There are scattered areas of fibroglandular density. There is no suspicious abnormality in either breast. Impression: There is no mammographic evidence of malignancy. Annual screening mammography is recommended. OVERALL FINAL ASSESSMENT: BI-RADS CATEGORY 1: Negative. us Self Screening Mammogram IMG MAMMO PROCEDURES Fi nal Result documented in this encounter Visit Diagnoses Diagnosis Screening mammogram, encounter for documented in this encounter Care Teams Residential Child Care Counselor Relationship Specialty Start Date End Date Jonathan Amado MD PCP - General 03/18/17 Jim Shelby MD [id number] [address] Consulting Physician Gastroenterology 06/16/19 documented as of this encounter
--- OUTSIDE RECORDS SUMMARY | 2024-10-17 03:14 | XMS_ITS | Encounter Summary ---
Author Organization [facility] Healthcare Address [address] [place] [address] Care Team Providers Care Gold Leaf Laborer Name Role Phone Jonathan Amado MD Primary Care Provider [phone] Jim Shelby MD Unavailable [phone] Reason for Referral * Diagnostic Imaging (Routine) - Closed Specialty Diagnoses / Procedures Referred By [facility] Referred To Contact Diagnoses Right knee pain, unspecified chronicity Procedures XR Knee Right 3 Views Johan Rojas IV, MD Phone: tel: fax: [facility] [place] Referral ID Status Reason Start Date Expiration Date Visits Re quested Visits Authorized [id number] Closed 12/21/2019 07/01/2021 1 1 Reason for Visit * Diagnostic Imaging (Routine) - Closed Specialty Diagnoses / Procedures Referred By [facility] Referred To Contact Diagnoses Right knee pain, unspecified chronicity Procedures XR Knee Right 3 Views Johan Rojas IV, MD Phone: tel: fax: [facility] [place] Referral ID Status Reason Start Date Expiration Date Visits Re quested Visits Authorized [id number] Closed 12/21/2019 07/01/2021 1 1 Encounter Details Date Type Department Care Team (Latest Contact Info) Description 12/23/2019 4:30 PM CDT - 12/23/2019 11:59 PM CDT Hospital Encounter [facility] [address] [place] [address] [place] [address] [facility] [address] [place] [address] Right knee pain, unspecified chronicity Discharge Disposition: Discharge to home or self [...] and Family Not on file 12/13/2019 Attends [employer] Not on file 12/12 Active Member [...] on file 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 Irrigate half in each nostril twice daily for 30 days. 9 triamcinolone (KENALOG) 0.1 % cream APPLY TO AFFECTED AREA(S) ON HANDS TWICE A DAY NEEDED 0 calcium carbonate-vitamin D3 1,250 mg (500 mg [...] 07/17/20 22 rizatriptan (MAXALT) 10 mg tabletIndications:Don apurva Take 10 mg by mouth once as needed 07/17/20 22 sucralfate (CARAFATE) 1 gram tablet Take 1 g by mouth 4 (four) times a day 07/03/20 20 documented as of this encounter Discharge Disposition Disposition Code Departure Means Destination Discharge to home or self care documented in this encounter Plan of Treatment Not on file documented as of this encounter Procedures Procedure Name Priority Date/Time Associated Diagnosis Comments XR KNEE RIGHT 3 VIEWS Schedule Routine, Read Routine (OP Routine) 12/23/2019 4:40 PM CDT Right knee pain, unspecified chronicity documented in this encounter Results * XR Knee Right 3 Views (12/23/2019 4:40 PM CDT) Anatomical Region Laterality Modality Lower Extremities, Knee Right Computed Radiography 12/23/2019 4:43 PM CDT Impressions 12/23/2019 4:43 PM CDT Normal right knee radiographs. Electronically signed by: Xavier Wilks M.D. Narrative 12/23/2019 4:43 PM CDT EXAMINATION: Right knee 3 views HISTORY: Right knee pain FINDINGS: 3 views of the right knee including PA and tangential patellar radiographs of both knees were performed with comparison made to 06/27/2014. ??Alignment of the right knee is normal. ??There is no right knee joint effusion or acute fracture. ??Joint spaces of both knees are normal. Procedure Note Xavier Wilks MD PhD - 12/23/2019 EXAMINATION: Right knee 3 views HISTORY: Right knee pain FINDINGS: 3 views of the right knee including PA and tangential patellar radiographs of both knees were performed with comparison made to 06/27/2014. Alignment of the right knee is normal. There is no right knee joint effusion or acute fracture. Joint spaces of both knees are normal. IMPRESSION: Normal right knee radiographs. Electronically signed by: Xavier Wilks M.D. us Johan Rojas IV, MD IMG XR PROCEDURES Fin al Result documented in this encounter Visit Diagnoses Diagnosis Right knee pain, unspecified chronicity documented in this encounter Care Teams Gold Leaf Laborer Relationship Specialty Start Date End Date Jonathan Amado MD PCP - General 03/18/17 Jim Shelby MD [address] [address] Consulting Physician Gastroenterology 06/16/19 documented as of this encounter
--- OUTSIDE RECORDS SUMMARY | 2024-10-17 03:14 | XMS_ITS | Encounter Summary ---
Author Organization [facility] Address [address] [place] [address] Phone Care Team Providers Care Assembler Convertible Top Name Role Phone Jonathan Amado MD Primary Care Provider [phone] Jim Shelby MD Unavailable [phone] Reason for Visit * Reason Comments Gynecologic Exam Encounter Details Date Type Department Care Team (Latest Contact Info) Description 07/17/2022 4:30 PM CDT Office Visit [facility] Obstetrics and Gynecology [address] 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 Gender Identity Not on file Sexual Orientation Not on file documented as of this encounter Last Filed Vital Signs Vital Sign Reading Time Taken Comments Blood Pressure 115/75 07/17/2022 4:11 PM CDT Pulse - - Temperature - - Respiratory Rate - - Oxygen Saturation - - Inhaled Oxygen Concentration - - Weight 70.3 kg (155 lb) 07/17/2022 4:11 PM CDT Height 162.6 cm (5' 4 ) 07/17/2022 4:11 PM CDT Body Mass Index 26.61 07/17/2022 4:11 PM CDT documented in this encounter Ordered Prescriptions Prescription Sig Dispense Quantity Refills Last Filled Start Date End Date estradioL (Estrace) 0.01 % (0.1 mg/gram) vaginal creamIndications:At rophy of Vulva Insert 2 g into the vagina 2 (two) times a week 42.5 g 2 07/18/2022 documented in this encounter Progress Notes * Bruna Syed MD - 07/17/2022 4:30 PM CDT Well Woman Exam Chief Complaint Patient presents with Gynecologic Exam Subjective: Pina Reynaga is a 52 y.o. who presents for a well woman exam. Urinary urgency in which she feels as though she has to void after she goes. Associated with some pain. Patient s/p hyst/BSO 10 years ago. Patient has osteoporosis and is scheduled with [facility] here. Menstrual History: No LMP recorded. Patient has had a hysterectomy. Period Pattern: None Sexual History: Sexual History Gender of sexual partners: Men Sexually Transmitted Infection History: None Sexual Assault: No OB History 2 Para 2 Term 2 0 AB 0 Living 2 SAB 0 IAB 0 Ectopic 0 Multiple 0 Live Births 2 # Outcome Date GA Labor/2nd Weight Sex Delivery Anes PTL Lv A1 A5 1 Term 1991 F Vag-Spont Living Complications: Other (Comment) 2 Term 1992 F Vag-Spont Living Past Surgical History: Procedure Laterality Date BLADDER SURGERY 2002 CHOLECYSTECTOMY COLONOSCOPY DIAGNOSTIC LAPAROSCOPY 1998 ERCP In 2015 and again in April of 2019-sphincterotomies and stenting-dual sphincterotomies in April and dual duct stenting in April ERCP W/ SPHICTEROTOMY HYSTERECTOMY 2001 HYSTEROSCOPY LASIK OOPHORECTOMY Left 1999 OOPHORECTOMY Right 2010 OVARIAN CYSTECTOMY OH DILATION/CURETTAGE,DIAGNOSTIC SINUS SURGERY TONSILLECTOMY UPPER GASTROINTESTINAL ENDOSCOPY Past Medical History: Diagnosis Date Allergic rhinitis Cervicalgia Chronic low back pain Coccygeal pain Duodenal papillary stenosis Fibromyalgia Gastric ulcer GERD (gastroesophageal reflux disease) Hiatal hernia 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 Irritable bowel syndrome Migraines MRSA (methicillin resistant Staphylococcus aureus) Osteoarthritis of knee Osteoporosis Patellar tendinitis Pneumonia PUD (peptic ulcer disease) Quadriceps tendinitis Sciatica Urinary tract infection Current Outpatient Medications: acetaminophen (TYLENOL) 325 mg tablet, Take 2 tablets (650 mg total) by mouth every 8 (eight) hours, Disp: 30 tablet, Rfl: cetirizine (ZyrTEC) 10 mg tablet, Take 10 mg by mouth daily , Disp: , Rfl: EPINEPHrine 0.3 mg/0.3 mL auto-injection syringe, Inject 0.3 mg into the muscle as instructed as needed, Disp: , Rfl: ergocalciferol (VITAMIN D) 50,000 unit capsule, Take 50,000 Units by mouth every 30 (thirty) days, Disp: , Rfl: multivitamin tablet, Take 1 tablet by mouth daily, Disp: , Rfl: sucralfate (CARAFATE) 1 gram tablet, TAKE 1 TABLET BY MOUTH EVERY 4 HOURS NEEDED FOR ABDOMINAL PAIN, Disp: , Rfl: tobramycin, bulk, 900 mcg/mg (not less than, SNF) powder, Add 1 capsule of 20mg to 240ml saline (patient may mix own saline). Irrigate half in each nostril twice daily for 30 days., Disp: , Rfl: triamcinolone (KENALOG) 0.1 % cream, APPLY TO AFFECTED AREA(S) ON HANDS TWICE A DAY NEEDED, Disp: , Rfl: Allergies Allergen Reactions Iodinated Contrast Media Muscle [...] control/protection: Hysterectomy Alcohol Use: Not At Risk Frequency of Alcohol Consumption: Never Average Number of Drinks: Not on file Frequency of Binge Drinking: Never Review of Systems Constitutional: Negative. HENT: Negative. Eyes: Negative. Respiratory: Negative. Cardiovascular: Negative. Gastrointestinal: Negative. Endocrine: Negative. Genitourinary: Positive for urgency. Negative for decreased urine volume, difficulty urinating, dyspareunia, dysuria, enuresis, flank pain, frequency, genital sores, hematuria, menstrual problem, pelvic pain, vaginal bleeding, vaginal discharge and vaginal pain. Musculoskeletal: Negative. Skin: Negative. Allergic/Immunologic: Negative. Neurological: Negative. Hematological: Negative. Psychiatric/Behavioral: Negative. Breast: Negative. Objective: BP 115/75 Ht 162.6 cm (5' 4 ) Wt 155 lb (70.3 kg) BMI 26.61 kg/m?? Physical Exam Vitals and nursing note reviewed. Constitutional: Appearance: She is well-developed. HENT: Head: Normocephalic and atraumatic. Eyes: Conjunctiva/sclera: Conjunctivae normal. Pupils: Pupils are equal, round, and reactive to light. Cardiovascular: Rate and Rhythm: Normal rate and regular rhythm. Pulmonary: Effort: Pulmonary effort is normal. Breath sounds: Normal breath sounds. Chest: Breasts: Right: Normal. Left: Normal. Abdominal: General: Bowel sounds are normal. Palpations: Abdomen is soft. Genitourinary: General: Normal vulva. Exam position: Supine. Vagina: Normal. Uterus: Absent. Adnexa: Right: No mass, tenderness or fullness. Left: No mass, tenderness or fullness. Comments: Atrophy noted Musculoskeletal: General: Normal range of motion. Cervical back: Normal range of motion and neck supple. Skin: General: Skin is warm and dry. Neurological: Mental Status: She is alert and oriented to person, place, and time. Psychiatric: Behavior: Behavior normal. Screening History Date of Last Pap if Known: [facility] History of Abnormal Paps: No Ever had an HPV vaccine?: No Ever had a mammogram?: Yes Date of Mammogram: 12/24/2021 Mammogram result: Normal Ever had a colonoscopy?: Yes Date of Colonoscopy: 08/21/2018 Ever had a bone-density test?: Yes Date of bone-density test: 12/16/2020 Health Care Maintenence: Pap smear: n/a - h/o TVH/BSO for endometriosis Mammography: due in 2022 Colonoscopy: due in 2027 DEXA: osteoporosis - appt with [facility] on 08/05 HPV vaccine:No Assessment and Plan: Pina Reynaga is a 52 y.o. female who presents for a well woman exam. Recommended screenings and preventive care discussed: Breast cancer: Self Breast Exams, Mammogram: Indicated Pap smear: Not Indicated Osteoporosis with Dexa Scan: Ordered Colon Cancer: Colonoscopy: Up to date Sexually transmitted disease screening: Not indicated Diet and exercise discussed. Calcium and vitamin D intake discussed. 1. Well woman exam with routine gynecological exam 2. Vaginal atrophy - Urine culture Urine, clean voided; Future - Urinalysis reflex to microscopic; Future 3. Urinary urgency Reviewed vaginal atrophy as a result of her BSO premenopausally as a potential cause of her urinarysymptoms and pelvic pain. No VMS. Will start a course of vaginal estrogen. Ordered UA reflex. Discussed PFPT, but will defer currently. F/u 3 months Bruna Syed MD 07/17/2022 MDM SUMMARY Based on my medical decision making, I considered/addressed the following medical problems: 1. Well woman exam with routine gynecological exam 2. Vaginal atrophy 3. Urinary urgency These diagnoses are consistent with 2 new problem(s) with uncertain diagnosis. A total of 1 elements of the following data was reviewed and analyzed: results of prior tests including physiologic data I ordered tests as noted for a total of 2 unique test(s). In my opinion, the risk of complications/morbidity from additional diagnostic testing and/or treatment recommended is moderate as a result of need for drug management and lack of hormones given surgical menopause. documented in this encounter Plan of Treatment Not on file documented as of this encounter Results * (ABNORMAL) Urinalysis reflex to microscopic (07/17/2022 5:36 PM CDT) Color, ur Yellow Yellow [facility] Clarity, ur Cloudy(A) Clear [facility] Specific gravity, ur 1.020 1.003 - 1.030 [facility] pH, urine 7.5 [facility] Protein, ur ql Negative Negative [facility] Glucose, ur ql Negative Negative [facility] Ketones, ur Negative Negative [facility] Bilirubin, ur Negative Negative [facility] Blood, ur Negative Negative [facility] Urobilinogen, ur <2.0 <2.0 mg/dL [facility] Nitrite, ur Negative Negative [facility] Leukocyte esterase, ur Negative Negative [facility] UA reflex comment Reflex conditions for microscopic UA not met. [facility] Urine 07/17/2022 5:36 PM CDT 07/17/2022 8:51 PM CDT Narrative [facility] - 07/17/2022 8:56 PM CDT ?? Urine pH is affected by diet, medications, systemic acid-base disturbances, and renal tubular function. ??pH may affect urinary stone formation. ??For example, urine pH below 6.0 may help reduce the tendency for calcium phosphate stones and pH greater than 6.0 may reduce the tendency for uric acid stone formation. Source: [employer]. Last revised 10-23-2017 Bruna Syed MD LAB URINE ORDERABLES Fi nal Result Performing Organization Address City/[facility]/ZIP Co de Phone Number [facility] Department [place] [address] * Urine culture Urine, clean voided (07/17/2022 5:36 PM CDT) Report Final Report: Less than 100,000 colonies/mL (clinically insignificant growth based on current clinical standards) [facility] Organism (CLINICALLY INSIGNIFICANT GROWTH [facility] Urine, clean voided 07/17/2022 5:36 PM CDT 07/17/2022 9:05 PM CDT Narrative [facility] - 07/19/2022 8:42 AM CDT Testing performed by [facility] Microbiology Laboratory ([phone]) Bruna Syed MD LAB MICROBIOLOGY - GENE RAL ORDERABLES Final Result [facility] Department [place] [address] documented in this encounter Visit Diagnoses Diagnosis Well woman exam with routine gynecological exam- Primary Routine gynecological examination Vaginal atrophy Postmenopausal atrophic vaginitis Urinary urgency Urgency of urination Vaginal atrophy Postmenopausal atrophic vaginitis documented in this encounter Discontinued Medications Medication Sig Discontinue Reason Start Date End Da te rizatriptan (MAXALT) 10 mg tabletIndications:Migr janes Take 10 mg by mouth once as needed Therapy completed 07/17/2022 budesonide (PULMICORT) 0.5 mg/2 mL nebulizer solution PLEASE SEE ATTACHED FOR DETAILED DIRECTIONS Therapy completed 05/02/2020 07/17/[address] (PROTONIX) 40 mg EC tablet Take 40 mg by mouth 2 (two) times a day Therapy completed 07/17/2022 estradiol (VAGIFEM) 10 mcg tablet Insert 1 tablet (10 mcg total) into the vagina once a week Therapy completed 06/30/2019 07/17/2022 vitamin B complex tablet extended release Take by mouth Therapy completed 07/17/2022 estradioL (VAGIFEM) 10 mcg tablet Insert 1 tablet (10 mcg total) into the vagina 2 (two) times a week 07/03/2020 07/03/2021 documented as of this encounter Care Teams Assembler Convertible Top Relationship Specialty Start Date End Date Jonathan Amado MD PCP - General 03/18/17 Jim Shelby MD [address] [facility] [address] [place] [address] Consulting Physician Gastroenterology 06/16/19 documented as of this encounter
--- OUTSIDE RECORDS SUMMARY | 2024-10-17 03:14 | XMS_ITS | Encounter Summary ---
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 Name Role Phone Jonathan Amado MD Primary Care Provider [phone] Jim Shelby MD Unavailable [phone] Reason for Referral * Procedure (Routine) - Closed Specialty Diagnoses / Procedures Referred By Contac t Referred To Contact Diagnoses Myofascial pain Procedures Trigger Point Injection Grupo Reese MD [address] [facility] [place] [address] Phone: tel: fax: [facility] (All Locations) Referral ID Status Reason Start Date Expiration Date Visits Re quested Visits Authorized [id number] Closed 02/07/2021 03/09/2022 1 1 * Diagnostic Imaging (Routine) - Closed Specialty Diagnoses / Procedures Referred By Contac t Referred To Contact Diagnoses Mid back pain Procedures X-ray thoracic spine 2 views Grupo Reese MD [address] [facility] [address] [place] [address] Phone: tel: fax: [facility] [phone] [address] [phone] Referral ID Status Reason Start Date Expiration Date Visits Re quested Visits Authorized [id number] Closed 02/07/2021 03/09/2022 1 1 * Diagnostic Imaging (Routine) - Closed Specialty Diagnoses / Procedures Referred By Chidi sorensen Referred To Contact Diagnoses Chronic left shoulder pain Procedures X-ray shoulder left 2+ views Grupo Reese MD [address] [facility] [place] [address] Phone: tel: fax: [facility] [phone] [address] [place] [phone] Referral ID Status Reason Start Date Expiration Date Visits Re quested Visits Authorized [id number] Closed 02/07/2021 03/09/2022 1 1 Reason for Visit * Reason Comments Pain Encounter Details Date Type Department Care Team (Late st Contact Info) Description 02/07/2021 8:40 AM CDT Office Visit [facility] Orthopaedic Surgery [facility] Building [address] [place] [address] Grupo Reese MD [address] [place] [address] Myofascial pain (Primary Dx); Chronic left shoulder pain; Mid back pain Social History Tobacco Use Types [...] and Family Not on file 12/13/2019 Attends [employer] Not on file 12/12 Active Member [...] on file 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 with PMH osteoporosis who presents in follow- up today for evaluation of upper back pain. The patient was last seen in clinic on 06/01/2018, and was treated for greater trochanteric pain syndrome as well as thoracic and cervical myofascial pain. The patient was doing fairly well until about 4-5 months ago when she had worsening of her upper thoracic back pain. The pain is in her upper thoracic back, with radiation across her trapezius and down her paraspinals, worse with lifting/holding. She also has some pain in her left shoulder. Thus far she uses a lidocaine patch for pain relief, and has completed 6 weeks of physical therapy since the beginning of the year. The physical therapy give her mild improvement, but she continues to have restricted range of motion and pain. She denies any hand numbness, weakness, arm pain. PHYSICAL EXAMINATION NEUROLOGIC: Strength: 5/5 bilaterally with shoulder abduction, external rotation, internal rotation, elbow flexion, elbow extension, wrist extension, FDI, ADM. Sensation: intact light touch sensation throughout bilateral upper extremities. MUSCULOSKELETAL: Inspection: shoulders in somewhat protracted positions. Inferior angle of the left scapula minimally elevated compared to right. With shoulder range of motion there is poor scapular motion bilaterally Palpation: Patient was exquisitely tender over the thoracic paraspinals, upper trapezius. ROM: Cervical: Limited especially with extension, with some discomfort. Shoulder: Shoulder range of motion significantly limited at 90?? abduction and 100?? of forward flexion, limited due to pain in her paraspinals and upper trapezius. External rotation of the shoulder painful left > right. Special Tests: Empty can: reproduces pain bilaterally Impingement: Hawkin's: negative REVIEW OF IMAGING / STUDIES: X-rays of the left shoulder and thoracic spine were obtained today today's visit and personally reviewed. Left shoulder has well-preserved joint space, no evidence of significant osteoarthritis. X-rays of the thoracic spine did not show any evidence of compression fracture. IMPRESSION / DIAGNOSIS: 1. Myofascial thoracic pain 2. Cervical myofascial pain 3. Left shoulder pain, likely mild adhesive capsulitis The patient certainly has a large component of myofascial thoracic pain thoracic pain, is exquisitely tender over the paraspinals/upper trapezius, and has very poor motion in her scapula with shoulder movement. However it seems she may also have some left shoulder issue contributing to this pain flare, most likely mild adhesive capsulitis. We discussed the treatment options with the patient includ ing medications, glenohumeral injection, trigger point injections, and physical therapy. At this point she is very flared up and will likely need to make some progress injection before trying more physical therapy. TREATMENT / PLAN: - Obtained x-rays of the left shoulder and thoracic spine at today's visit (has history of recent diagnosis of osteoporosis) - Trigger point injection times is performed at today's visit - Will prescribe additional therapy - Could consider Left glenohumeral injection for adhesive capsulitis, the patient is concerned given her recent diagnosis of osteoporosis, so we will hold off for now. - We discussed medication options, including gabapentin, Lyrica, duloxetine, however she has had side effects from these in the past so we will see her we can get with injections and therapy. No orders of the defined types were placed in this encounter. Orders Placed This Encounter Procedures ??? X-ray shoulder left 2+ views ??? X-ray thoracic spine 2 views ??? Ambulatory referral order to Physical Therapy - Trigger Point Injection Performed by: Grupo Reese MD Authorized by: Grupo Reese MD Procedure Details: Location: L upper trapezius and R upper trapezius Ultrasound guidance: No Number of muscles: 1 or 2 4 mL lidocaine 10 mg/mL (1 %) Verbal consent was obtained. The area to be injected was cleaned and prepped with Betadine and alcohol. Using a no touch, sterile technique, a 25 gauge needle was inserted into the bilateral trapezius. A total of 4 cc of 1% lidocaine and was injected. The patient tolerated the procedure well without any complications. FOLLOW UP: Patient to call in one week to report on TPI Alexis Hernandez MD Resident Physician, PGY-2 Physical Medicine and Rehabilitation Grupo Reese MD [facility] Orthopedics Division of Physical Medicine and Rehabilitation Portions of this note were dictated using Idea Device*Modal Fluency Direct speech recognition software. Please excuse any steam tender errors. 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 02/07/2021 ??5:14 PM Trigger Point Injection Performed by: Grupo Reese MD Authorized by: Grupo Reese MD Procedure Details: ??Location: ??L upper trapezius and R upper trapezius ??Ultrasound guidance: No ?Number of muscles: ??1 or 2 ?? 4 mL lidocaine 10 mg/mL (1 %) ?? Verbal consent was obtained. The area to be injected was cleaned and prepped with Betadine and alcohol. Using a no touch, sterile technique, a 25 gauge needle was inserted into the bilateral trapezius. A total of 4 cc of 1% lidocaine and was injected. The patient tolerated the procedure well without any complications. us Grupo Reese MD IN CLINIC/BEDSIDE ORDERABLE S Final Result documented in this encounter Visit Diagnoses Diagnosis Myofascial pain- Primary Unspecified myalgia and myositis Chronic left shoulder pain Pain in joint, shoulder region Mid back pain Mid back pain Chronic left shoulder pain Pain in joint, shoulder region documented in this encounter Administered Medications Inactive Administered Medications - up to 3 most recent administrations Medication Order MAR Action Action Date Dose Rate Site lidocaine (XYLOCAINE) 10 mg/mL (1 %) injection 4 mL 4 mL, One-Time Injection, Starting on Fri02/07/21 at 1713, For 1 dose, Indications: Administration of Local AnesthesiaIndications:Administration of Local Anesthesia Given 02/07/2021 5:13 PM CDT 4 mL documented in this encounter Historical Medications * This list may reflect changes made after this encounter. sucralfate (CARAFATE) 1 gram tablet TAKE 1 TABLET BY MOUTH EVERY 4 HOURS NEEDED FOR ABDOMINAL PAIN 11/22/2020 3 added in this encounter Care Teams Auxiliary Plant Operator Relationship Specialty Start Date End Date Jonathan Amado MD PCP - General 03/18/17 Jim Shelby MD [address] [address] Consulting Physician Gastroenterology 06/16/19 documented as of this encounter
--- OUTSIDE RECORDS SUMMARY | 2024-10-17 03:14 | XMS_ITS | Encounter Summary ---
Author Organization 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 12/13/2019 Exercise Vital Sign Answer Date Recorde d Days of Exercise per Week 2 days 2019 Minutes of Exercise per Session 30 min 12/13/2019 Comments No Sex and Gender Information Value Date Recorded Sex Assigned at Not on file Legal Sex Female 9:51 AM [facility] Gender Identity Not on file Sexual Orientation Not on file documented as of this encounter Plan of Treatment Not on file documented as of this encounter Procedures Procedure Name Priority Date/Time Associated Diagnosis Comments URINE CULTURE Routine 12/13/2019 2:15 PM [facility] Mixed stress and urge urinary incontinence URINALYSIS AND REFLEX TO MICROSCOPIC Routine 12/13/2019 11:52 AM [facility] Mixed stress and urge urinary incontinence URINALYSIS, MICROSCOPIC ONLY Routine 12/13/2019 11:52 AM [facility] Mixed stress and urge urinary incontinence documented in this encounter Results * Urine culture Urine, clean voided (12/13/2019 2:15 PM [facility]) Report Final Report: Less than 100,000 colonies/mL (clinically insignificant growth based on current clinical standards) [facility] Organism (CLINICALLY INSIGNIFICANT GROWTH [facility] Urine, clean voided 12/13/2019 2:15 PM [facility] 12/13/2019 2:25 PM [facility] Narrative [facility] - 12/14/2019 3:28 PM [facility] Collect 1 week prior to scheduled urodynamics. Testing performed by [facility] ([phone]) us Maximo Almanza MD LAB MICROBIOLOGY - GENERAL ORDERABLES Final Result [facility] Department [place] [address] * (ABNORMAL) Urinalysis, microscopic only (12/13/2019 11:52 AM [facility]) WBC, ur 0-5 0 - 5 /HPF [facility] RBC, ur 3-5(A) 0 - 2 /HPF [facility] Epithelial cells, squamous, ur 1-5 0 - 5 /HPF [facility] Bacteria, ur Trace(A) [facility] Urine 12/13/2019 11:5 2 AM [facility] 12/13/2019 2:17 PM [facility] us Maximo Almanza MD LAB URINE ORDERABLES Final Result [facility] [place] [address] * (ABNORMAL) Urinalysis reflex to microscopic (12/13/2019 11:52 AM [facility]) Color, ur Yellow Yellow [facility] Clarity, ur Clear Clear [facility] Specific gravity, ur 1.033(H) 1.010 - 1.025 [facility] pH, urine [address] [facility] Protein, ur ql 1+(A) Negative [facility] Glucose, ur ql Negative Negative [facility] Ketones, ur Negative Negative [facility] Bilirubin, ur Negative Negative [facility] Blood, ur Negative Negative [facility] Comment:Ascorbic acid identi fied in urine; possible false negative blood result. A microscopic exam will be added to identify RBCs. Urobilinogen, ur <2.0 <2.0 mg/dL [facility] Nitrite, ur Negative Negative [facility] Leukocyte esterase, ur Negative Negative [facility] UA reflex comment Reflex to microscopic UA will be performed. [facility] Urine 12/13/2019 11:5 2 AM [facility] 12/13/2019 2:17 PM [facility] Narrative [facility] - 12/13/2019 2:30 PM [facility] ?? Urine pH is affected by diet, medications, systemic acid-base disturbances, and renal tubular function. ??pH may affect urinary stone formation. ??For example, urine pH below 6.0 may help reduce the tendency for calcium phosphate stones and pH greater than 6.0 may reduce the tendency for uric acid stone formation. Source: [employer]. Last revised 10-23-2017 us Maximo Almanza MD LAB URINE ORDERABLES Final Result Performing Organization Address City/State/ZIP Co ks Phone Number [facility] [address] [place] [address] documented in this encounter Visit Diagnoses Diagnosis Mixed stress and urge urinary incontinence Mixed incontinence urge and stress (male)(female) documented in this encounter Care Teams [employer] Relationship Specialty Start Date End Date Jonathan Amado MD PCP - General 03/18/17 Jim Shelby MD [address] [facility] [address] [place] [address] Consulting Physician Gastroenterology 06/16/19 documented as of this encounter
--- OUTSIDE RECORDS SUMMARY | 2024-10-17 03:14 | XMS_ITS | Encounter Summary ---
Author Organization [facility] Healthcare Address [address] [place] [address] Care Team Providers Care Baker Doughnut Name Role Phone Jonathan Amado MD Primary Care Provider [phone] Reason for Visit * Reason Comments Abdominal Pain Encounter Details Date Type Department Care Team (Late st Contact Info) Description 05/28/2019 3:41 PM CDT - 05/30/2019 6:01 PM CDT Emergency [facility] [address] [place] [address] Nataliia Girard MD [address] [place] [address] Mariluz Castro MD [address] [place] [address] Kaylie MendeziazDO [address] [place] [address] Chronic abdominal pain (Primary Dx) Discharge Disposition: Discharge to home or self care Social History Tobacco Use Types Packs/Day Years Used Date Smoking Tobacco: Never Smokeless Tobacco: Never Alcohol Use Standard Drinks/Week Comments No 0 (1 standard drink = 0.6 oz pur e alcohol) Comments No Sex and Gender Information Value Date Recorded Sex Assigned at Not on file Legal Sex Female 9:51 AM [employer] Gender Identity Not on file Sexual Orientation Not on file documented as of this encounter Last Filed Vital Signs Vital Sign Reading Time Taken Comments Blood Pressure 112/77 05/30/2019 12:15 PM CDT Pulse 61 05/30/2019 12:15 PM CDT Temperature 36.7 ??C (98.1 ??F) 05/30/2019 12:15 PM C DT Respiratory Rate 16 05/30/2019 12:15 PM CDT Oxygen Saturation 98% 05/30/2019 12:15 PM CDT Inhaled Oxygen Concentration - - Weight 64.4 kg (142 lb) 05/28/2019 2:26 PM CDT Height 162.6 cm (5' 4 ) 05/28/2019 2:26 PM CDT Body Mass Index 24.37 05/28/2019 2:26 PM CDT documented in this encounter Discharge Diagnoses Diagnosis Other chronic pain - OTHER CHRONIC PAIN Epigastric pain - EPIGASTRIC PAIN Abdominal pain, epigastric Right upper quadrant pain - RIGHT UPPER QUADRANT PAIN Abdominal pain, right upper quadrant Gastro-esophageal reflux disease without esophagitis - GASTRO-ESOPHAGEAL REFLUX DISEASE WITHOUT ESOPHAGITIS Fibromyalgia - FIBROMYALGIA Unspecified myalgia and myositis Peptic ulcer without hemorrhage or perforation - PEPTIC ULCER, SITE UNSPECIFIED, UNSPECIFIED ACUTE OR CHRONIC, WITHOUT HEMORRHAGE OR PERFORATION Thrombocytopenia (HCC) - THROMBOCYTOPENIA, UNSPECIFIED Unspecified thrombocytopenia Restless legs syndrome - RESTLESS LEGS SYNDROME Restless legs syndrome (RLS) Diaphragmatic hernia without obstruction or gangrene - DIAPHRAGMATIC HERNIA WITHOUT OBSTRUCTION OR GANGRENE Diaphragmatic hernia without mention of obstruction or gangrene Osteoarthritis - UNSPECIFIED OSTEOARTHRITIS, UNSPECIFIED SITE Osteoarthrosis, unspecified whether generalized or localized, unspecified site Allergy status to other drugs, medicaments and biological substances status - ALLERGY STATUS TO OTHER DRUGS, MEDICAMENTS AND BIOLOGICAL SUBSTANCES STATUS Allergy status to narcotic agent - ALLERGY STATUS TO NARCOTIC AGENT STATUS Allergy status to other antibiotic agents status - ALLERGY STATUS TO OTHER ANTIBIOTIC AGENTS STATUS Migraine without status migrainosus, not intractable - MIGRAINE, UNSPECIFIED, NOT INTRACTABLE, WITHOUT STATUS MIGRAINOSUS Moderate protein-calorie malnutrition (CMS/HCC) (HCC) - MODERATE PROTEIN-CALORIE MALNUTRITION Allergic rhinitis - ALLERGIC RHINITIS, UNSPECIFIED Allergic rhinitis, cause unspecified Family history of ischemic heart disease and other diseases of the circulatory system - FAMILY HISTORY OF ISCHEMIC HEART DISEASE AND OTHER DISEASES OF THE CIRCULATORY SYSTEM Family history of arthritis - FAMILY HISTORY OF ARTHRITIS Personal history of other diseases of the digestive system - PERSONAL HISTORY OF OTHER DISEASES OF THE DIGESTIVE SYSTEM Irritable bowel syndrome without diarrhea - IRRITABLE BOWEL SYNDROME WITHOUT DIARRHEA documented in this encounter Medications at Time of Discharge acetaminophen (TYLENOL) 325 mg tablet Take 2 tablets (650 mg total) by mouth every 8 (eight) hours 30 tablet 05/30/2019 cetirizine (ZyrTEC) 10 mg tablet Take 1 tablet (10 mg total) by mouth daily EPINEPHrine 0.3 mg/0.3 mL auto-injection syringe Inject 0.3 mL (0.3 mg total) into the muscle as instructed as needed 01/12/2019 methocarbamol (ROBAXIN) 500 mg tabletIndication s:Muscle Spasm Take 0.5 tablets (250 mg total) by mouth 3 (three) times a day as needed for muscle spasms (abdominal pain) 60 tablet 05/07/[address] (PROTONIX) 40 mg EC tablet Take 40 mg by mouth 2 (two) times a day 2 rizatriptan (MAXALT) 10 mg tabletIndication s:Migraine Take 10 mg by mouth once as needed 2 documented as of this encounter Ordered Prescriptions Prescription Sig Dispense Quantity Refills Last Filled Start Date End Date acetaminophen (TYLENOL) 325 mg tablet Take 2 tablets (650 mg total) by mouth every 8 (eight) hours 30 tablet 05/30/2019 documented in this encounter Discharge Disposition Disposition Code Departure Means Destination Discharge to home or self care documented in this encounter Progress Notes * Elayne Colindres, MELODIE - 05/30/2019 11:58 AM CDT Gastroenterology Daily Progress SUBJECTIVE Chief complaint: abd pain Interval History: Still complains of epigastric pain, now also complaints of burning up into esophagus. Did not eat yesterday, didn't feel like it, tolerated some jello and juice at breakfast but didnot tolerate broth at later in morning. +flatus, Patient and both frustrated that more isn't being done. OBJECTIVE Vitals: Most Recent : Vitals: 05/30/19 0415 BP: 100/63 Pulse: 66 Resp: 12 Temp: 36.8 ??C (98.2 ??F) SpO2: 98% Physical Exam: General: awake and alert Abdomen: Soft, ND, +upper abd tenderness with palpation, +BS Lab/Radiology/Diagnostic Review: Recent Labs Lab Units 05/29/1961905/28/19 1459 WBC K/cumm 5.4 6.2 HEMOGLOBIN g/dL 14.1 14.4 HEMATOCRIT % 41.2 42.5 PLATELETS K/cumm 141* 173 Recent Labs Lab Units 05/29/19 2156 05/29/19211105/29/19203705/29/19 0605/28/19 1459 SODIUM mmol/L -- -- -- 141 141 POTASSIUM PLASMA mmol/L -- -- -- 4.2 3.9 CHLORIDE mmol/L -- -- -- 106 105 CO2 mmol/L -- -- -- 24 26 ANIONGAP mmol/L -- -- -- 11 10 GLUCOSE mg/dL -- -- -- 78 92 POC GLUCOSE MONITOR mg/dL 130 83 65* -- -- BUN SERUM mg/dL -- -- -- 5* 8 CREATININE mg/dL -- -- -- 0.72 0.75 CALCIUM mg/dL -- -- -- 8.8 9.6 ALBUMIN g/dL -- -- -- 3.5 4.2 ALK PHOS Units/L -- -- -- 58 63 ALT Units/L -- -- -- 18 16 AST Units/L -- -- -- 25 25 BILIRUBIN TOTAL mg/dL -- -- -- 0.8 0.5 Lab Results Component Value Date LIPASE 20 05/28/2019 DIAGNOSTIC STUDIES: 04/19 ERCP - Papillary stenosis treated with biliary and pancreatic sphincterotomies. - Morphologic changes of the pancreatic duct of unclear clinical significance. - Dual-duct protective stenting was performed to reduce risk/severity of potential procedure-associated complications. 04/21 ERCP - Recurrent papillary stenosis has resolved after recent extension of the previous (2005) biliary/pancreatic sphincterotomies. - Excellent drainage is documented, the protective CBD stent has been removed, the pancreatic stenthad migrated out spontaneously. - Mild morphologic changes of the pancreatic duct of unclear clinical significance. 05/06 CT A/P No acute findings in the chest, abdomen, or pelvis. ASSESSMENT/PLAN: 1. Post elana abd pain Papillary Stenosis Hx of elana 2009, ERCP with PS 2016 04/19/19 ERCP - as noted above-recurrent papillary stenosis treated with sphincterotomies and short-term stenting. 04/21/19 ERCP-noted above-resolution of papillary stenosis noted. Bile duct stent was removed. Pancreatic stent had migrated spontaneously. Readmission 05/05-, d/c with robaxin -no labs this am, normal upon admission -supportive care, IVF's, pain medications, antiemetics -clear liquids as tolerated, nutritional supplements, advance as tolerated -no endoscopic procedures recommended at this time -recommend patient obtain second opinion from [facility] Elayne Colindres NP 05/30/2019 Cosigned by Jim Shelby MD at 05/30/2019 2:33 PM CDT Associated attestation - Jim Shelby MD - 05/30/2019 2:33 PM CDT I have seen and examined the patient on 05/30/19. I agree with the findings and plan of care. * Kaylie Mendez, - 05/30/2019 8:51 AM CDT Daily Progress SUBJECTIVE Chief complaint of abdominal pain. INTERVAL HISTORY: Her abdominal pain is improved next was having bilateral lower quadrant crampy pain which she thinks is from gas. Her pain is 2/10. She had worsening pain with broth this morning but is seen eating Jell-O and seems to be tolerating it. She denies chest pain, shortness of breath, vomiting. OBJECTIVE Vitals: 24hr Min/Max: Temp Min: 36.4 ??C (97.6 ??F) Max: 36.8 ??C (98.2 ??F) Pulse Min: 66 Max: 88 BP Min: 100/63 Max: 130/81 Resp Min: 12 Max: 22 SpO2 Min: 98 % Max: 100 % Most Recent : Vitals: 05/30/19 0415 BP: 100/63 Pulse: 66 Resp: 12 Temp: 36.8 ??C (98.2 ??F) SpO2: 98% Physical exam: General Appearance: Alert, cooperative, no distress, appears stated age Head: Normocephalic, without obvious abnormality, atraumatic Eyes: PERRL, conjunctiva clear, EOM's intact, no scleral icterus Nose: Nares normal, septum midline, mucosa normal, no drainage Throat: Lips, mucosa, and tongue normal; mucous membranes moist Neck: Symmetrical, trachea midline, no JVD Lungs: Clear to auscultation bilaterally, respirations unlabored Cardiovascular: Regular rate and rhythm, S1 and S2 normal, no murmur, rub or gallop Abdomen: Soft, non-tender, no masses, no organomegaly, non-distended Extremities: Extremities normal, atraumatic, no cyanosis or edema, no clubbing Skin: Skin color, texture, turgor normal, no rashes, lesions or bruising Neurologic: Alert & oriented x 3, CNII-XII intact. Psychosocial: Normal affect and mood Lab/Radiology/Diagnostic Review: Laboratory review: reviewed the laboratory results Imaging review: I have reviewed the results ASSESSMENT/PLAN: 1. Abdominal pain. Continue PPI daily. Start Pepcid b.i.d... continue Tylenol around the clock, Toradol p.r.n., heating pad on lidocaine patch. adverse reaction to gabapentin, nortriptyline, amitriptyline, Cymbalta previously. Ischemic bowel is also consideration. Her lipase was normal. Her CT from05/05 was without significant abnormality. Message left with GI to discuss. Advance diet to fulls. 2. Thrombocytopenia 3. Moderate protein calorie malnutrition 4. History of stomach ulcers 5. GERD 6. Allergic rhinitis 7. Positive FABIAN 8. History of migraines * Huong Solorzano RD - 05/29/2019 1:34 PM CDT Initial Nutrition Assessment Reason for Assessment: Initial Nutrition Assessment Encounter Date: 05/29/19 1:34 PM Nutrition Evaluation: Patient is a 49 y.o. female. Admit Dx: CHRONIC ABDOMINAL PAIN. Admitted on 05/28/2019, current LOS is 0 days. Patient's intake is inadequate. Impression: Pt screened for weight loss, poor intake. Pt states has not been eating well since her ERCP on 04/20/19. Also was following very low fat diet, stating she tried to keep her intake below 20 grams fat/day. Would eat a little cereal at breakfast, then some ensure at lunch. The ensure she stated was the high protein, low fat ensure which would probably be the ensure max. Denies nausea or vomiting, but complains of abdominal pain when she eats. She had ensure clear when she was here before. Her weight on 04/19/19 was 70.3 kg and is now 64.4 kg which is a 8.4% weight loss in about one month. Some mild fat & muscle loss in temporal and occipital areas. Pt meets criteria for acute modera te malnutrition per ASPEN (see below) with the weight loss and poor po intake. Plan: Will send ensure clear for supplements and change to ensure max when diet increases. Will follow to encourage po intake. ASPEN Malnutrition Assessment: Acute Illness/Injury Mild/Moderate Energy Intake: < 75% energy intake compared to estimated energy needs > 7 days Weight Loss: 5% in 1 month Body Fat: Mild/Moderate Muscle Mass: Mild/Moderate Patient Meets Criteria for Moderate Malnutrition: Yes Nutrition Focused Physical Exam Notes: Nutrition Needs Calculations: Calculated Energy Needs Using Equations Weight: 64.4 kg (142 lb) Height: 162.6 cm (5' 4 ) Temp: 36.7 ??C (98.1 ??F) Estimated Protein Needs Type of Weight Used for Estimated Protein : Current Protein Needs Based on g/k.2 Total Protein Estimated Needs (gm): 77.29 Kcal/kg Type of Weight Used for Estimated Kcals: Current Kcal/k Total Kcal/kg Estimated Needs : 1610.28 Objective Past Medical History: Diagnosis Date ??? Cervicalgia Neck pain - (Added by TW Conv) ??? Gastric ulcer ??? Gastric ulcer ??? GERD (gastroesophageal reflux disease) ??? Irritable bowel syndrome ??? Other specified enthesopathies of unspecified lower limb, excluding foot Quadriceps tendonitis - (Added by TW Conv) ??? Other tear of medial meniscus, current injury, unspecified knee, initial encounter Acute medial meniscus tear - (Added by TW Conv) ??? Pain in extremity Limb pain - (Added by TW Conv) ??? Pain in joint Multiple joint pain - (Added by TW Conv) ??? Pain in knee Joint pain, knee - (Added by TW Conv) ??? Pain of foot Foot pain - (Added by TW Conv) ??? Patellar tendinitis Patellar tendonitis - (Added by TW Conv) ??? Personal history of other diseases of the musculoskeletal system and connective tissue History of low back pain - (Added by TW Conv) ??? Personal history of other diseases of the nervous system and sense organs History of sciatica - (Added by TW Conv) ??? PONV (postoperative nausea and vomiting) ??? Primary osteoarthritis of one knee Osteoarthritis, localized, knee - (Added by TW Conv) ??? Sacrococcygeal disorders, not elsewhere classified Coccyx pain - (Added by TW Conv) Past Surgical History: Procedure Laterality Date ??? BLADDER SURGERY Bladder Surgery - 2002 (Added by TW Conv) ??? CHOLECYSTECTOMY ??? COLONOSCOPY ??? ERCP ??? LASIK Corneal LASIK Bilateral - (Added by TW Conv) ??? [place] DILATION/CURETTAGE,DIAGNOSTIC Dilation And Curettage - (Added by TW Conv) ??? [place] ERCP W/SPHINCTEROTOMY/PAPILLOTOMY ERCP With Endoscopic Sphincterotomy - (Added by TW Conv) ??? [place] HYSTEROSCOPY,W/ENDO BX Hysteroscopy - (Added by TW Conv) ??? [place] LAP,DIAGNOSTIC ABDOMEN Laparoscopy (Diagnostic) - 1998 (Added by TW Conv) ??? [place] REMOVAL OF OVARIAN CYST(S) Ovarian Cystectomy - (Added by TW Conv) ??? [place] REMOVAL OF OVARY(S) Oophorectomy - 1999 LEFT REMOVED 2011 RIGHT REMOVED (Added by TW Conv) ? ? [place] REMOVAL OF TONSILS,<12 Y/O Tonsillectomy - (Added by TW Conv) ??? [place] TOTAL ABDOM HYSTERECTOMY Hysterectomy - 2001 (Added by TW Conv) ??? SINUS SURGERY Sinus Surgery - (Added by TW Conv) ??? UPPER GASTROINTESTINAL ENDOSCOPY Anthropometrics Weight: 64.4 kg (142 lb) Admission Weight : 64.4 kg Weight Change: -3.03 kg (-6.70 lbs) IBW/kg (Calculated) : 54.4 kg Height: 162.6 cm (5' 4 ) Weight in (lb) to have BMI = 25: 145.3 BMI (Calculated): 24.4 Intake/Output Summary (Last 24 hours) at 05/29/2019 1334 Last data filed at 05/29/2019 0610 Gross per 24 hour Intake 0 ml Output -- Net 0 ml Medications and Lab Review: Scheduled Meds: acetaminophen 650 mg oral Q8H cetirizine 10 mg oral Daily famotidine 20 mg oral BID lidocaine 1 patch transdermal Daily pantoprazole DR 40 mg oral BID Continuous Infusions: PRN Meds: HYDROmorphone ??? ketorolac ??? methocarbamol ??? ondansetron Sodium Date Value Ref Range Status 05/29/2019 141 135 - 145 mmol/L Final Potassium, pl Date Value Ref Range Status 05/29/2019 4.2 3.3 - 4.9 mmol/L Final BUN Date Value Ref Range Status 05/29/2019 5 (L) 8 - 25 mg/dL Final Creatinine Date Value Ref Range Status 05/29/2019 0.72 0.60 - 1.10 mg/dL Final Albumin Date Value Ref Range Status 05/29/2019 3.5 3.5 - 5.0 g/dL Final Calcium Date Value Ref Range Status 05/29/2019 8.8 8.5 - 10.3 mg/dL Final ALT Date Value Ref Range Status 05/29/2019 18 7 - 45 Units/L Final AST Date Value Ref Range Status 05/29/2019 25 10 - 45 Units/L Final Alk phos Date Value Ref Range Status 05/29/2019 58 40 - 130 Units/L Final Lipase Date Value Ref Range Status 05/28/2019 20 10 - 99 Units/L Final No results found for: HGBA1C Nursing Assessment: Last BM Date: 05/28/19 Bowel Sounds (All Quadrants): Active Xavier Scale Score: 19 Dietary Orders (From admission, onward) Start Ordered 05/29/191999 Oral Nutrition Supplements Select Supplement: Ensure Clear - Any Flavor 2 times daily Question: Select Supplement: Answer: Ensure Clear - Any Flavor 05/29/19 1323 05/28/191845 Adult Diet Clear Liquid Diet effective now Question: ([facility]) Diet type Answer: Clear Liquid 05/28/191844 Nutrition Needs Calculations: Calculated Energy Needs Using Equations Weight: 64.4 kg (142 lb) Height: 162.6 cm (5' 4 ) Temp: 36.7 ??C (98.1 ??F) Estimated Protein Needs Type of Weight Used for Estimated Protein : Current Protein Needs Based on g/k.2 Total Protein Estimated Needs (gm): 77.29 Kcal/kg Type of Weight Used for Estimated Kcals: Current Kcal/k Total Kcal/kg Estimated Needs : 1610.28 Nutritional Needs and Diagnosis: Nutrition Diagnosis 1: Inadequate oral intake Related to: Altered GI function, Loss of appetite Evidenced by: PO under 50%, Weight loss Intervention and Monitoring: Goals: Prevent further unintended weight loss during admission, Oral intake to meet 75% estimated nutritional needs by next assessment, Tolerance of medical food supplement by next assessment Interventions: Encouragement, Medical food supplement Monitoring and Evaluation: Appetite, I/O, Labs, Plan of care, PO intake, Supplement tolerance Huong Solorzano RD,LD * Kaylie Mendez, DO - 05/29/2019 9:02 AM CDT Daily Progress SUBJECTIVE Chief complaint of abdominal pain INTERVAL HISTORY: Her abdominal pain is better now it is 4/10. It is epigastric and radiates to herright upper quadrant and around to her back. I started her on gabapentin this morning but she says causes headaches. This will be discontinued and added to her allergy list. She reports being trialedon amitriptyline/nortriptyline and duloxetine all of which had side effects. She ate Jell-O this morning with worsening of her abdominal pain. OBJECTIVE Vitals: 24hr Min/Max: Temp Min: 36.8 ??C (98.2 ??F) Max: 36.9 ??C (98.4 ??F) Pulse Min: 59 Max: 88 BP Min: 114/71 Max: 120/83 Resp Min: 16 Max: 18 SpO2 Min: 98 % Max: 100 % Most Recent : Vitals: 05/29/19 0415 BP: 114/71 Pulse: 74 Resp: 16 Temp: 36.8 ??C (98.2 ??F) SpO2: 98% Physical exam: General Appearance: Alert, cooperative, no distress, appears stated age Head: Normocephalic, without obvious abnormality, atraumatic Eyes: PERRL, conjunctiva clear, EOM's intact, no scleral icterus Nose: Nares normal, septum midline, mucosa normal, no drainage Throat: Lips, mucosa, and tongue normal; mucous membranes moist Neck: Symmetrical, trachea midline, no JVD Lungs: Cardiovascular: Abdomen: Extremities: Skin: Neurologic: Alert & oriented x 3, CNII-XII intact. Psychosocial: Normal affect and mood Lab/Radiology/Diagnostic Review: Laboratory review: reviewed the laboratory results Imaging review: I have reviewed the results ASSESSMENT/PLAN: 1. Abdominal pain. Continue PPI daily. Start Pepcid b.i.d... Start Tylenol around the clock, Toradol p.r.n., heating pad on lidocaine patch. Stop gabapentin. Add this to her allergy list. Await GI. Ischemic bowel is also consideration. Her lipase was normal. Continue clear liquids. Stop IV fluids. H er CT from 05/05 was without significant abnormality. 2. Thrombocytopenia 3. History of stomach ulcers 4. GERD 5. Allergic rhinitis 6. Positive FABIAN 7. History of migraines documented in this encounter H&P Notes * Rina Thakkar MD - 05/29/2019 6:22 AM CDT General H&P PCP: Jonathan Amado. Subjective Patient is a 49 y.o. female with chief complaint of right upper quadrant abdominal pain. HPI: Patient is a 49 y/o female with history of chronic pain, fibromyalgia, GERD, PUD presented to the emergency department with epigastric abdominal pain. She had ERCP with sphincterotomy on 04/19 with subsequent stent removal on 04/[address] Shelby, with temporary relief of symptoms. Patient was again admitted from 05/05-05/07 for similar abdominal pain and had negative CT a/p on 05/05. She was seen by Dr. Shelby who did not think ERCP was warranted. No clear cause of her pain was identified. She was started on Robaxin 250 TID with improvement of pain while admitted, and continued this medication at discharge. Yesterday patient complained of similar severe epigastric pain that is worse with eating since day before yesterday. Her pain is described as ???burning?? and radiates through to her back and up into her lower chest. She tried taking robaxin without relief. Patient also complains of mild nausea. No vomiting or diarrhea. No fever, chills or cough. Past Medical History: Diagnosis Date ??? Cervicalgia Neck pain - (Added by TW Conv) ??? Gastric ulcer ??? Gastric ulcer ??? GERD (gastroesophageal reflux disease) ??? Irritable bowel syndrome ??? Other specified enthesopathies of unspecified lower limb, excluding foot Quadriceps tendonitis - (Added by TW Conv) ??? Other tear of medial meniscus, current injury, unspecified knee, initial encounter Acute medial meniscus tear - (Added by TW Conv) ??? Pain in extremity Limb pain - (Added by TW Conv) ??? Pain in joint Multiple joint pain - (Added by TW Conv) ??? Pain in knee Joint pain, knee - (Added by TW Conv) ??? Pain of foot Foot pain - (Added by TW Conv) ??? Patellar tendinitis Patellar tendonitis - (Added by TW Conv) ??? Personal history of other diseases of the musculoskeletal system and connective tissue History of low back pain - (Added by TW Conv) ??? Personal history of other diseases of the nervous system and sense organs History of sciatica - (Added by TW Conv) ??? PONV (postoperative nausea and vomiting) ??? Primary osteoarthritis of one knee Osteoarthritis, localized, knee - (Added by TW Conv) ??? Sacrococcygeal disorders, not elsewhere classified Coccyx pain - (Added by TW Conv) Past Surgical History: Procedure Laterality Date ??? BLADDER SURGERY Bladder Surgery - 2002 (Added by TW Conv) ??? CHOLECYSTECTOMY ??? COLONOSCOPY ??? ERCP ??? LASIK Corneal LASIK Bilateral - (Added by TW Conv) ??? [place] DILATION/CURETTAGE,DIAGNOSTIC Dilation And Curettage - (Added by TW Conv) ??? [place] ERCP W/SPHINCTEROTOMY/PAPILLOTOMY ERCP With Endoscopic Sphincterotomy - (Added by TW Conv) ??? [place] HYSTEROSCOPY,W/ENDO BX Hysteroscopy - (Added by TW Conv) ??? [place] LAP,DIAGNOSTIC ABDOMEN Laparoscopy (Diagnostic) - 1998 (Added by TW Conv) ??? [place] REMOVAL OF OVARIAN CYST(S) Ovarian Cystectomy - (Added by TW Conv) ??? [place] REMOVAL OF OVARY(S) Oophorectomy - 1999 LEFT REMOVED 2010 RIGHT REMOVED (Added by TW Conv) ? ? [place] REMOVAL OF TONSILS,<12 Y/O Tonsillectomy - (Added by TW Conv) ??? [place] TOTAL ABDOM HYSTERECTOMY Hysterectomy - 2001 (Added by TW Conv) ??? SINUS SURGERY Sinus Surgery - (Added by TW Conv) ??? UPPER GASTROINTESTINAL ENDOSCOPY Medications Prior to Admission Medication Sig Dispense Refill Last Dose ??? cetirizine (ZyrTEC) 10 mg tablet Take 10 mg by mouth daily 05/27/2019 at Unknown time ??? methocarbamol (ROBAXIN) 500 mg tablet Take 0.5 tablets (250 mg total) by mouth 3 (three) times a day as needed for muscle spasms (abdominal pain) 60 tablet 0 05/28/2019 at Unknown time ??? pantoprazole DR (PROTONIX) 40 mg EC tablet Take 40 mg by mouth 2 (two) times a day 05/27/2019 atUnknown time ??? rizatriptan (MAXALT) 10 mg tablet Take 10 mg by mouth once as needed Past Month at Unknown time Allergies Allergen Reactions ??? Ciprofloxacin Rash and Muscle pain ??? Doxycycline Rash and Unknown ??? Levofloxacin Rash ??? Sulfasalazine Rash Body aches ??? Iodinated Contrast Media Unknown Sneezing, shortness of breath, body aches ??? Metrizamide Unknown ??? Morphine Unknown and Nausea And Vomiting ??? Compazine [Prochlorperazine] Other (See comments) and Anxiety Social History Tobacco Use ??? Smoking status: Never Smoker ??? Smokeless tobacco: Never Used Substance Use Topics ??? Alcohol use: No Family History Problem Relation Age of Onset [...] of breast - (Added by TW Conv) ROS Constitutional: Negative Head: Negative Eye: Negative Ears: Negative Nose: Negative Throat: Negative Neck: Negative Respiratory: Negative Cardiac: Negative Gi: Positive for nausea, vomiting and epigastric abdominal pain Gu: Negative Ms: Positive for fibromyalgia Skin: Negative Endocrine: States she has a 2 thyroid nodules which needs to be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 supported Outcome: Progressing Problem: Fluid Volume: Goal: Maintenance of adequate hydration will improve Outcome: Progressing Problem: Health Behavior: Goal: Ability to state signs and symptoms to report to health care provider will improve Outcome: Progressing Problem: Physical Regulation: Goal: Complications related to the disease process, condition or treatment will be avoided or minimized Outcome: Progressing Goal: Ability to maintain clinical measurements within normal limits will improve Outcome: Progressing Problem: Sensory: Goal: Ability to identify factors that increase the pain will improve Outcome: Progressing Goal: Ability to notify healthcare provider of pain before it becomes unmanageable or unbearable will improve Outcome: Progressing Goal: Pain level will decrease Outcome: Progressing Goals: Clinical Goals for the Shift: monitor vs and labs, pain management, rest, safety Summary:A&Ox4. VSS. RA. Pain located in mid abdomen. Pain increase when she eats hot foods. Tolerated jello and apple juice okay. Received lidocaine patch, scheduled tylenol, and toradol. Pain seemed to subside for pt to be comfortable. No nausea or vomiting to note. This afternoon pt experienced diarrhea. Sent c diff sample and pt received imodium. Will continue to monitor. Plan to d/c after dinner if tolerates food okay. * Plan of Care - Dot Tran RN - 05/30/2019 4:44 AM CDT Problem: Health Behavior: Goal: Understanding of discharge needs will improve Outcome: Progressing Problem: Lack of Knowledge: Goal: Ability to state and carry out methods to decrease the pain will improve Outcome: Progressing Problem: Nutritional: Goal: Nutritional status will be supported Outcome: Progressing Problem: Fluid Volume: Goal: Maintenance of adequate hydration will improve Outcome: Progressing Problem: Health Behavior: Goal: Ability to state signs and symptoms to report to health care provider will improve Outcome: Progressing Problem: Physical Regulation: Goal: Complications related to the disease process, condition or treatment will be avoided or minimized Outcome: Progressing Goal: Ability to maintain clinical measurements within normal limits will improve Outcome: Progressing Problem: Sensory: Goal: Ability to identify factors that increase the pain will improve Outcome: Progressing Goal: Ability to notify healthcare provider of pain before it becomes unmanageable or unbearable will improve Outcome: Progressing Goal: Pain level will decrease Outcome: Progressing Goals: Clinical Goals for the Shift: monitor VS, promote oral intake, control pain Summary: Pt Aox4 and VSS. Pt complained of dizziness and tingling of the hands, feet, and mouth. Ptreported she hadn't eaten or drank anything all day. BG read 65. Pt drank 4 oz apple juice, broughtBG to 83, drank another 4 oz, BG 133. Patient reported symptoms resolved. No reports of pain throughout the night. Will continue to monitor. * Plan of Care - Ariela Peña RN - 05/29/2019 3:45 PM CDT Problem: Health Behavior: Goal: Understanding of discharge needs will improve Outcome: Not Progressing Problem: Lack of Knowledge: Goal: Ability to state and carry out methods to decrease the pain will improve Outcome: Not Progressing Problem: Nutritional: Goal: Nutritional status will be supported Outcome: Not Progressing Problem: Fluid Volume: Goal: Maintenance of adequate hydration will improve Outcome: Not Progressing Problem: Health Behavior: Goal: Ability to state signs and symptoms to report to health care provider will improve Outcome: Not Progressing Problem: Physical Regulation: Goal: Complications related to the disease process, condition or treatment will be avoided or minimized Outcome: Not Progressing Goal: Ability to maintain clinical measurements within normal limits will improve Outcome: Not Progressing Problem: Sensory: Goal: Ability to identify factors that increase the pain will improve Outcome: Not Progressing Goal: Ability to notify healthcare provider of pain before it becomes unmanageable or unbearable will improve Outcome: Not Progressing Goal: Pain level will decrease Outcome: Not Progressing Goals: Clinical Goals for the Shift: monitor vs and labs, pain management, rest ,safety Summary: pt a&Ox4. VSS. Pain in mid abdomen radiates to back. Lidocaine patch on. Tolerating clear diet well. Will continue to monitor. * Plan of Care - Dot Tran RN - 05/29/2019 5:13 AM CDT Problem: Health Behavior: Goal: Understanding of discharge needs will improve Outcome: Progressing Problem: Lack of Knowledge: Goal: Ability to state and carry out methods to decrease the pain will improve Outcome: Progressing Problem: Nutritional: Goal: Nutritional status will be supported Outcome: Progressing Problem: Fluid Volume: Goal: Maintenance of adequate hydration will improve Outcome: Progressing Problem: Health Behavior: Goal: Ability to state signs and symptoms to report to health care provider will improve Outcome: Progressing Problem: Physical Regulation: Goal: Complications related to the disease process, condition or treatment will be avoided or minimized Outcome: Progressing Goal: Ability to maintain clinical measurements within normal limits will improve Outcome: Progressing Problem: Sensory: Goal: Ability to identify factors that increase the pain will improve Outcome: Progressing Goal: Ability to notify healthcare provider of pain before it becomes unmanageable or unbearable will improve Outcome: Progressing Goal: Pain level will decrease Outcome: Progressing Goals: Clinical Goals for the Shift: VSS, IV fluids, control pain, GI consult Summary: Patient admitted to the floor. Aox4 and VSS. Pain controlled with Dilaudid. Patient able to sleep most of the shift. Will continue to monitor. * ED Procedure Note - Nataliia Girard MD - 05/28/2019 3:55 PM CDTAssociated Order(s): ECG 12 lead Procedure ECG 12 lead Date/Time: 05/28/2019 3:55 PM Performed by: Nataliia Girard MD Authorized by: Nataliia Girard MD Comments: NSR 60. Nonspecific T wave change. One flipped T wave in V2. Nataliia Girard MD 05/28/19 6506 documented in this encounter Plan of Treatment Not on file documented as of this encounter Procedures Procedure Name Priority Date/Time Associated Diagnosis Comments CLOSTRIDIUM DIFFICILE TOXIN Routine 05/30/2019 4:21 PM CDT POCT GLUCOSE DEVICE Routine 05/30/2019 1 2:44 PM CDT POCT GLUCOSE DEVICE Routine 05/29/2019 9 :56 PM CDT POCT GLUCOSE DEVICE Routine 05/29/2019 9 :12 PM CDT POCT GLUCOSE DEVICE Routine 05/29/2019 8 :38 PM CDT EGFR Routine 05/29/2019 6:20 AM CDT DIFFERENTIAL AUTO Routine 05/29/2019 6:2 0 AM CDT CBC WITH AUTO DIFFERENTIAL Routine 05/29/2019 6:20 AM CDT COMPREHENSIVE METABOLIC PANEL Routine 05/29/2019 6:20 AM CDT URINALYSIS AND REFLEX TO MICROSCOPIC AND CULTURE STAT 05/28/2019 4:44 PM CDT EGFR STAT 05/28/2019 2:59 PM CDT DIFFERENTIAL AUTO STAT 05/28/2019 2:5 9 PM CDT CBC WITH AUTO DIFFERENTIAL STAT 05/28/2019 2:59 PM CDT TROPONIN T STAT 05/28/2019 2:59 PM CDT LIPASE STAT 05/28/2019 2:59 PM CDT COMPREHENSIVE METABOLIC PANEL STAT 05/28/2019 2:59 PM CDT ECG 12-LEAD STAT 05/28/2019 2:30 PM CDT documented in this encounter Results * Clostridium difficile toxin Stool (05/30/2019 4:21 PM CDT) C Difficile Toxin A/B Negative Negative [facility] Stool 05/30/2019 4:21 PM CDT 05/30/2019 5:03 PM CDT Bazgha Jefferson Ahmad DO LAB MICROBIOLOGY - GENERA L ORDERABLES Final Result [facility] [address] Department [place] [address] * POCT glucose (05/30/2019 12:44 PM CDT) Glucose, POC 90 70 - 140 mg/dL [facility] Comment: For Glucose values <35 mg/dl when Hematocrit is >60 mg/dl,the test may not accurately detect significant hypoglycemia,and testing in the Laboratory should be considered if clinically indicated. Blood specimen (specimen) 05/30/2019 12:44 PM CDT 05/30/2019 12:44 PM CDT Kaylie Mendez DO LAB POCT ORDERABLES - DEV ICE Final Result Performing Organization Address [facility] Co de Phone Number [facility] [address] [facility] [employer] [place], [place] [id number] * POCT glucose (05/29/2019 9:56 PM CDT) Glucose, POC 130 70 - 140 mg/dL [facility] Comment: For Glucose values <35 mg/dl when Hematocrit is >60 mg/dl,the test may not accurately detect significant hypoglycemia,and testing in the Laboratory should be considered if clinically indicated. Blood specimen (specimen) 05/29/2019 9:56 PM CDT 05/29/2019 9:56 PM CDT Kaylie Mendez DO LAB POCT ORDERABLES - DEV ICE Final Result Performing Organization Address [facility] de Phone Number [facility] [address] [facility] [employer] [place], [place] [id number] * POCT glucose (05/29/2019 9:12 PM CDT) Glucose, POC 83 70 - 140 mg/dL [facility] Comment: For Glucose values <35 mg/dl when Hematocrit is >60 mg/dl,the test may not accurately detect significant hypoglycemia,and testing in the Laboratory should be considered if clinically indicated. Blood specimen (specimen) 05/29/2019 9:12 PM CDT 05/29/2019 9:12 PM CDT Kaylie Mendez DO LAB POCT ORDERABLES - DEV ICE Final Result Performing Organization Address [facility] Co de Phone Number [facility] [address] [facility] [employer] [place], [place] [id number] * (ABNORMAL) POCT glucose (05/29/2019 8:38 PM CDT) [facility] Glucose, POC 65(L) 70 - 140 mg/dL [facility] Comment: For Glucose values <35 mg/dl when Hematocrit is >60 mg/dl,the test may not accurately detect significant hypoglycemia,and testing in the Laboratory should be considered if clinically indicated. Blood specimen (specimen) 05/29/2019 8:38 PM CDT 05/29/2019 8:38 PM CDT Kaylie Jefferson Ahmad DO LAB POCT ORDERABLES - DEV ICE Final Result [facility] [address] Department [place] [address] * eGFR (05/29/2019 6:20 AM CDT) [facility] eGFR 99 mL/min/1.7 3 m2 [facility] Comment: Interpretive Data Reference Interval Normal ?>/= 90 mL/min/1.73m2 Mildly decreased* ? 60 - 89 mL/min/1.73m2 Mildly to moderately decreased ?45 - 59 mL/min/1.73m2 Moderately to severely decreased ??30 - 44 mL/min/1.73m2 Severely decreased ?15 - 29 mL/min/1.73m2 Kidney Failure ?< 15 ??mL/min/1.73m2 *Relative to young adult level If -[place] multiply value by 1.16. Estimated glomerular filtration [...] was last reviewed 2017. Blood specimen (specimen) 05/29/2019 6:20 AM CDT 05/29/2019 6:50 AM CDT us Nataliia Girard MD LAB BLOOD ORDERABLES Final Result [facility] [address] [place] [address] * Differential, auto (05/29/2019 6:20 AM CDT) Neutrophil abs 2.7 1.7 - 6.5 K/cumm [facility] Imm gran abs 0.0 0.0 - 0.1 K/cumm [facility] Lymphocyte abs 1.6 0.8 - 3.3 K/cumm [facility] Monocyte abs 0.6 0.2 - 0.8 K/cumm [facility] Eosinophil abs 0.5 0.0 - 0.5 K/cumm [facility] Basophil abs 0.0 0.0 - 0.1 K/cumm [facility] Neutrophil pct 50.9 % [facility] Comment: Interpretive Data Percent cell count reference ranges are not reported, since discordance with absolute values may lead to misinterpretation of CBC data. Current Interpretive Data was last revised on 2018. Imm gran pct 0.2 % [facility] Comment: Interpretive Data Percent cell count reference ranges are not reported, since discordance with absolute values may lead to misinterpretation of CBC data. Current Interpretive Data was last revised on 2018. Lymphocyte pct 28.9 % [facility] Comment: Interpretive Data Percent cell count reference ranges are not reported, since discordance with absolute values may lead to misinterpretation of CBC data. Current Interpretive Data was last revised on 2018. Monocyte pct 10.3 % [facility] Comment: Interpretive Data Percent cell count reference ranges are not reported, since discordance with absolute values may lead to misinterpretation of CBC data. Current Interpretive Data was last revised on 2018. Eosinophil pct 9.1 % [facility] Comment: Interpretive Data Percent cell count reference ranges are not reported, since discordance with absolute values may lead to misinterpretation of CBC data. Current Interpretive Data was last revised on 2018. Basophil pct 0.6 % [facility] Comment: Interpretive Data Percent cell count reference ranges are not reported, since discordance with absolute values may lead to misinterpretation of CBC data. Current Interpretive Data was last revised on 2018. Blood specimen (specimen) 05/29/2019 6:20 AM CDT 05/29/2019 6:50 AM CDT Nataliia Girard MD LAB BLOOD ORDERABLES Final Result [facility] [address] Department [place] [address] * (ABNORMAL) Comprehensive metabolic panel (05/29/2019 6:20 AM CDT) Sodium 141 135 - 145 mmol/L [facility] Potassium, pl 4.2 3.3 - 4.9 mmol/L [facility] Chloride 106 97 - 110 mmol/L [facility] CO2 24 22 - 32 mmol/L [facility] Anion gap 11 2 - 15 mmol/L [facility] BUN 5(L) 8 - 25 mg/dL [facility] Creatinine 0.72 0.60 - 1.10 mg/dL [facility] Glucose 78 70 - 199 mg/dL [facility] Comment: Interpretive Data Fasting glucose >/= 126 [...] interpretive data was last revised 2017. Calcium 8.8 8.5 - 10.3 mg/dL [facility] Bilirubin, total 0.8 0.1 - 1.2 mg/dL [facility] Protein, pl 5.7(L) 6.5 - 8.5 g/dL [facility] Albumin 3.5 3.5 - 5.0 g/dL [facility] Alk phos 58 40 - 130 Units/L [facility] ALT 18 7 - 45 Units/L [facility] AST 25 10 - 45 Units/L [facility] Blood specimen (specimen) 05/29/2019 6:20 AM CDT 05/29/2019 6:50 AM CDT us Nataliia Girard MD LAB BLOOD ORDERABLES Final Result Performing Organization Address City/[facility]/ZIP Co de Phone Number [facility] [address] Department [place] [address] * (ABNORMAL) CBC with auto differential (05/29/2019 6:20 AM CDT) WBC 5.4 3.8 - 9.9 K/cumm [facility] Hgb 14.1 11.9 - 15.5 g/dL [facility] Hct 41.2 35.6 - 45.5 % [facility] Plt 141(L) 150 - 400 K/cumm [facility] MPV 11.7 9.1 - 12.3 fL [facility] RBC 4.50 3.90 - 5.20 M/cumm [facility] MCV 91.6 81.3 - 96.4 fL [facility] MCH 31.3 27.1 - 33.3 pg [facility] MCHC 34.2 32.3 - 35.7 g/dL [facility] RDW CV 12.0 11.1 - 14.9 % [facility] RDW SD 40.0 35.7 - 48.1 fL [facility] NRBC abs 0.00 0.00 - 0.01 K/cumm [facility] Blood specimen (specimen) 05/29/2019 6:20 AM CDT 05/29/2019 6:50 AM CDT us Nataliia Girard MD LAB BLOOD ORDERABLES Final Result Performing Organization Address City/[facility]/ZIP Co de Phone Number [facility] [address] Department [place] [address] * Urinalysis reflex to microscopic and culture Urine (05/28/2019 4:44 PM CDT) Pathologist [facility] Color, ur Yellow Yellow [facility] Clarity, ur Clear Clear [facility] Specific gravity, ur 1.015 1.010 - 1.025 [facility] pH, urine 7.0 [facility] Protein, ur ql Negative Negative [facility] Glucose, ur ql Negative Negative [facility] Ketones, ur Trace Negative [facility] Bilirubin, ur Negative Negative [facility] Blood, ur Negative Negative [facility] Urobilinogen, ur <2.0 <2.0 mg/dL [facility] Nitrite, ur Negative Negative [facility] Leukocyte esterase, ur Negative Negative [facility] Urine 05/28/2019 4:44 PM CDT 05/28/2019 4:51 PM CDT Narrative [facility] - 05/28/2019 4:56 PM CDT ?? Urine pH is affected by diet, medications, systemic acid-base disturbances, and renal tubular function. ??pH may affect urinary stone formation. ??For example, urine pH below 6.0 may help reduce the tendency for calcium phosphate stones and pH greater than 6.0 may reduce the tendency for uric acid stone formation. Source: [facility] [employer]. Last revised 10-23-2017 us Nataliia Girard MD LAB MICROBIOLOGY - GENERAL ORDERABLES Final Result [facility] [address] Department [place] [address] * eGFR (05/28/2019 2:59 PM CDT) Pathologist [facility] eGFR 94 mL/min/1.7 3 m2 [facility] Comment: Interpretive Data Reference Interval Normal ?>/= 90 mL/min/1.73m2 Mildly decreased* ? 60 - 89 mL/min/1.73m2 Mildly to moderately decreased ?45 - 59 mL/min/1.73m2 Moderately to severely decreased ??30 - 44 mL/min/1.73m2 Severely decreased ?15 - 29 mL/min/1.73m2 Kidney Failure ?< 15 ??mL/min/1.73m2 *Relative to young adult level If -[place]ones[place] multiply value by 1.16. Estimated glomerular filtration [...] was last reviewed 2017. Blood specimen (specimen) 05/28/2019 2:59 PM CDT 05/28/2019 3:26 PM CDT us Thien Liu MD LAB BLOOD ORDERABLES Final R esult [facility] [address] Department [place] [address] * Differential, auto (05/28/2019 2:59 PM CDT) Neutrophil abs 3.7 1.7 - 6.5 K/cumm [facility] Imm gran abs 0.0 0.0 - 0.1 K/cumm [facility] Lymphocyte abs 1.3 0.8 - 3.3 K/cumm [facility] Monocyte abs 0.7 0.2 - 0.8 K/cumm [facility] Eosinophil abs 0.5 0.0 - 0.5 K/cumm [facility] Basophil abs 0.0 0.0 - 0.1 K/cumm [facility] Neutrophil pct 59.3 % [facility] Comment: Interpretive Data Percent cell count reference ranges are not reported, since discordance with absolute values may lead to misinterpretation of CBC data. Current Interpretive Data was last revised on 2018. Imm gran pct 0.2 % [facility] Comment: Interpretive Data Percent cell count reference ranges are not reported, since discordance with absolute values may lead to misinterpretation of CBC data. Current Interpretive Data was last revised on 2018. Lymphocyte pct 21.3 % [facility] Comment: Interpretive Data Percent cell count reference ranges are not reported, since discordance with absolute values may lead to misinterpretation of CBC data. Current Interpretive Data was last revised on 2018. Monocyte pct 11.1 % [facility] Comment: Interpretive Data Percent cell count reference ranges are not reported, since discordance with absolute values may lead to misinterpretation of CBC data. Current Interpretive Data was last revised on 2018. Eosinophil pct 7.5 % [facility] Comment: Interpretive Data Percent cell count reference ranges are not reported, since discordance with absolute values may lead to misinterpretation of CBC data. Current Interpretive Data was last revised on 2018. Basophil pct 0.6 % [facility] Comment: Interpretive Data Percent cell count reference ranges are not reported, since discordance with absolute values may lead to misinterpretation of CBC data. Current Interpretive Data was last revised on 2018. Blood specimen (specimen) 05/28/2019 2:59 PM CDT 05/28/2019 3:27 PM CDT Nataliia Girard MD LAB BLOOD ORDERABLES Final Result [facility] [address] Department [place] [address] * Troponin T (05/28/2019 2:59 PM CDT) Troponin T <0.01 0.00 - 0.01 ng/mL [facility] Comment: Interpretive Data Reference ranges for children <18 years of age have not been established. - > or = 18 years: Serial determinations are recommended for the diagnosis of myocardial infarction. ??Temporal rise and fall are consistent with myocardial infarction when at least one value is above the 99th percentile upper reference limit for troponin assay. ??Journal of the [place] [employer] 2012;60:1581-98. Current Interpretive Data Last Revised Date: 2018. Blood specimen (specimen) 05/28/2019 2:59 PM CDT 05/28/2019 3:26 PM CDT Nataliia Girard MD LAB BLOOD ORDERABLES Final Result Performing Organization Address [facility]/ZIP Co de Phone Number [facility] [address] [place] [address] * Lipase (05/28/2019 2:59 PM CDT) Pathologist [facility] Lipase 20 10 - 99 Units/L [facility] Blood specimen (specimen) 05/28/2019 2:59 PM CDT 05/28/2019 3:26 PM CDT Nataliia Girard MD LAB BLOOD ORDERABLES Final Result Performing Organization Address [facility] de Phone Number [facility] [address] [employer] [place] [address] * Comprehensive metabolic panel (05/28/2019 2:59 PM CDT) Pathologist [facility] Sodium 141 135 - 145 mmol/L [facility] Potassium, pl 3.9 3.3 - 4.9 mmol/L [facility] Chloride 105 97 - 110 mmol/L [facility] CO2 26 22 - 32 mmol/L [facility] Anion gap 10 2 - 15 mmol/L [facility] BUN 8 8 - 25 mg/dL [facility] Creatinine 0.75 0.60 - 1.10 mg/dL [facility] Glucose 92 70 - 199 mg/dL [facility] Comment: Interpretive Data Fasting glucose >/= 126 [...] interpretive data was last revised 2017. Calcium 9.6 8.5 - 10.3 mg/dL [facility] Bilirubin, total 0.5 0.1 - 1.2 mg/dL [facility] Protein, pl 6.6 6.5 - 8.5 g/dL [facility] Albumin 4.2 3.5 - 5.0 g/dL [facility] Alk phos 63 40 - 130 Units/L [facility] ALT 16 7 - 45 Units/L [facility] AST 25 10 - 45 Units/L [facility] Comment:Slightly Hemolyzed S pecimen Blood specimen (specimen) 05/28/2019 2:59 PM CDT 05/28/2019 3:26 PM CDT us Nataliia Girard MD LAB BLOOD ORDERABLES Final Result [facility] [address] Department [place] [address] * CBC with auto differential (05/28/2019 2:59 PM CDT) WBC 6.2 3.8 - 9.9 K/cumm [facility] Hgb 14.4 11.9 - 15.5 g/dL [facility] Hct 42.5 35.6 - 45.5 % [facility] Plt 173 150 - 400 K/cumm [facility] MPV 11.8 9.1 - 12.3 fL [facility] RBC 4.67 3.90 - 5.20 M/cumm [facility] MCV 91.0 81.3 - 96.4 fL [facility] MCH 30.8 27.1 - 33.3 pg [facility] MCHC 33.9 32.3 - 35.7 g/dL [facility] RDW CV 12.1 11.1 - 14.9 % [facility] RDW SD 40.3 35.7 - 48.1 fL [facility] NRBC abs 0.00 0.00 - 0.01 K/cumm [facility] Blood specimen (specimen) 05/28/2019 2:59 PM CDT 05/28/2019 3:27 PM CDT us Nataliia Girard MD LAB BLOOD ORDERABLES Final Result Performing Organization Address [facility] Co de Phone Number [facility] [address] Department [place] [address] * ECG 12 lead (05/28/2019 2:30 PM CDT) 05/28/2019 2:30 PM CDT Narrative [facility] - 05/29/2019 9:08 AM CDT Vent Rate: 60 bpm RR Interval: 1000 msec NJ Interval: 113 msec QRS Duration: 74 msec QT Interval: 375 msec QTC Interval: 375 msec P-R-T [place]: 48 - 68 - 63 degrees SINUS RHYTHM WITH SHORT NJ INTERVAL BORDERLINE ECG Electronically Signed By: Johan Toribio MD, [facility] us Nataliia Girard MD ECG ORDERABLES Final Resu lt Performing Organization Address [facility] de Phone Number [facility] documented in this encounter Visit Diagnoses Diagnosis Chronic abdominal pain- Primary Abdominal pain, unspecified site Epigastric abdominal pain Abdominal pain, epigastric History of stomach ulcers Gastroesophageal reflux disease with esophagitis Allergic rhinitis Allergic rhinitis, cause unspecified Positive antinuclear antibody documented in this encounter Administered Medications Inactive Administered Medications - up to 3 most recent administrations Medication Order MAR Action Action Date Dose Rate Site acetaminophen (TYLENOL) tablet 650 mg 650 mg, oral, Every 8 hours, First dose on Fri05/29/19 at 0945 Given 05/30/2019 8:21 AM CDT 650 mg Given 05/30/2019 2:10 AM CDT 650 mg Given 05/29/2019 9:28 AM CDT 650 mg cetirizine (ZyrTEC) tablet 10 mg 10 mg, oral, Daily, First dose on Fri05/28/19 at 1930 Given 05/29/2019 8:41 PM CDT 10 mg Given 05/28/2019 8:29 PM CDT 10 mg famotidine (PEPCID) tablet 20 mg 20 mg, oral, 2 times daily, First dose on 05/29/19 at 0945 Given 05/30/2019 8:22 AM CDT 20 mg Given 05/29/2019 8:41 PM CDT 20 mg Given 05/29/2019 9:29 AM CDT 20 mg gabapentin (NEURONTIN) capsule 100 mg 100 mg, oral, 3 times daily, First dose on 05/29/19 at 0945 Given 05/29/2019 9:28 AM CDT 100 mg HYDROmorphone (DILAUDID) injection 0.5 mg 0.5 mg, intravenous, Administer over 2 Minutes, Once, On Fri05/28/19 at 1612, For 1 dose Given 05/28/2019 4:45 PM CDT 0.5 mg HYDROmorphone (DILAUDID) injection 0.5 mg 0.5 mg, intravenous, Administer over 2 Minutes, Every 3 hours PRN, 1st line for pain, Starting on Fri05/28/19 at 1845 Given 05/29/2019 12:13 AM CDT 0.5 mg HYDROmorphone (DILAUDID) injection 0.5 mg 0.5 mg, intravenous, Administer over 2 Minutes, Every 3 hours PRN, breakthrough pain, Starting on Fri05/29/19 at 0904 ketorolac (TORADOL) 15 mg/mL injection 30 mg 30 mg, intravenous, Every 6 hours PRN, 1st line for pain, Starting on Fri05/29/19 at 0904, For 5 days, For Adult IV push, administer over 15 seconds Given 05/30/2019 8:22 AM CDT 30 mg lidocaine (LIDODERM) 5 % patch 1 patch 1 patch, transdermal, Administer over 12 Hours, Daily, First dose on 05/29/19 at 0945, Do not cover the holes on the top side of the patch., Apply to affected area: abdomen, Indications: Postherpetic NeuralgiaIndications:Post herpetic Neuralgia Medication Applied 05/30/2019 8:22 AM CDT 1 patch Other (Comment) Medication Applied 05/29/2019 9:28 AM CDT 1 patch Other (Comment) loperamide (IMODIUM) capsule 2 mg 2 mg, oral, 4 times daily PRN, diarrhea, Starting on Fri05/30/19 at 1534, Maximum recommended dose 16 mg/day Given 05/30/2019 4:18 PM CDT 2 mg ondansetron (ZOFRAN) injection 4 mg 4 mg, intravenous, Administer over 2 Minutes, Once, On Fri05/28/19 at 1612, For 1 dose, Indications: Nausea, VomitingIndications:Nausea,Vomiting Given 05/28/2019 4:35 PM CDT [address] (PROTONIX) extended release tablet 40 mg 40 mg, oral, 2 times daily, First dose on Fri05/28/19 at 2100, Do not crush, chew, cut, dissolve, open or otherwise manipulate tablet/capsule., Indications: Treatment of Non-Bleeding Gastric DisorderIndications:Treatment of Non-Bleeding Gastric Disorder Given 05/30/2019 8:22 AM CDT 40 mg Given 05/29/2019 8:41 PM CDT 40 mg Given 05/29/2019 8:14 AM CDT 40 mg simethicone (MYLICON) chewable tablet 80 mg 80 mg, oral, 2 times daily PRN, flatulence, Starting on Fri05/30/19 at 1407 sodium chloride 0.9% bolus 1,000 mL 1,000 mL, intravenous, at 1,000 mL/hr, Administer over 1 Hours, Once, On Fri05/28/19 at 1612, For 1 dose Given 05/28/2019 4:38 PM CDT 1,000 mL 1000 mL/hr sodium chloride 0.9% infusion 125 mL/hr, intravenous, Continuous, Starting on Fri05/28/19 at 1930 Rate/Dose Verify 05/29/2019 8:14 AM CDT 125 mL/hr 125 mL/hr New Bag 05/29/2019 3:57 AM CDT 125 mL/hr 125 mL/hr Rate/Dose Verify 05/29/2019 12:17 AM CDT 125 mL/hr 125 mL /hr documented in this encounter Discontinued Medications Medication Sig Discontinue Reason Start Date End Da te EPINEPHrine 0.3 mg/0.3 mL auto-injection syringeIndications:Anaph ylaxis Inject 0.3 mg into the muscle as instructed. 12/19/2017 05/28/2019 HYDROcodone-acetaminophe n (NORCO) 5-325 mg per tabletIndications:Pain Take 1 tablet by mouth every 4 (four) hours as needed for pain 04/21/2019 05/28/2019 montelukast (SINGULAIR) 10 mg tablet Take 10 mg by mouth nightly 05/28/2019 documented as of this encounter Active and Recently Administered Medications Times are shown in CDT. Scheduled Medication Order 05/28/2019 05/29/2019 05/30/2019 acetaminophen (TYLENOL) tablet 650 mg 650 mg, oral, Every 8 hours, First dose on 05/29/19 at 0945 0928 (Given - Provider: Ariela Peña RN)1735 (Not Given - Provider: Ariela Peña RN - Reason: Patient/family refused) 0210 (Given - Provider: Dot Tran RN)0821 (Given - Provider: Ariela Peña RN)1619 (Not Given - Provider: Ariela Peña RN - Reason: Patient/family refused) cetirizine (ZyrTEC) tablet 10 mg 10 mg, oral, Daily, First dose on Fri05/28/19 at 1930 202 (Given - Provider: Dot Tran RN) 0816 (Not Given - Provider: Ariela Peña RN - Reason: Patient/family refused)204 (Given - Provider: Katharine Joseph RN) famotidine (PEPCID) tablet 20 mg 20 mg, oral, 2 times daily, First dose on 05/29/19 at 0945 0929 (Given - Provider: Ariela Peña RN)204 (Given - Provider: Katharine Joseph RN) 0822 (Given - Provider: Ariela Peña RN) gabapentin (NEURONTIN) capsule 100 mg (CANCELED) 100 mg, oral, 3 times daily, First dose on 05/29/19 at 0945 0928 (Given - Provider: Ariela Peña RN) HYDROmorphone (DILAUDID) injection 0.5 mg (COMPLETED) 0.5 mg, intravenous, Administer over 2 Minutes, Once, On Fri05/28/19 at 1612, For 1 dose 1645 (Given - Provider: Rylee Lopez RN) lidocaine (LIDODERM) 5 % patch 1 patch 1 patch, transdermal, Administer over 12 Hours, Daily, First dose on Fri05/29/19 at 0945, Do not cover the holes on the top side of the patch., Apply to affected area: abdomen, Indications: Postherpetic Neuralgia 0928 (Medication Applied - Provider: Ariela Peña RN - Comment: mid abdomen)2200 (Medication Removed - Provider: Dot Tran RN) 0822 (Medication Applied - Provider: Ariela Peña RN - Comment: mid abdomen)1801 (Due: Medication Removed - Provider: Automatic Discharge Provider - Comment: Time automatically adjusted from order being discontinued) ondansetron (ZOFRAN) injection 4 mg (COMPLETED) 4 mg, intravenous, Administer over 2 Minutes, Once, On Fri05/28/19 at 1612, For 1 dose, Indications: Nausea, Vomiting 1635 (Given - Provider: Rylee Lopez, GYPSY) pantoprazole DR (PROTONIX) extended release tablet 40 mg 40 mg, oral, 2 times daily, First dose on Fri05/28/19 at 2100, Do not crush, chew, cut, dissolve, open or otherwise manipulate tablet/capsule., Indications: Treatment of Non-Bleeding Gastric Disorder 2028 (Given - Provider: Dot Tran RN) 0814 (Given - Provider: Ariela Peña RN)204 (Given - Provider: Katharine Joseph RN) 0822 (Given - Provider: Ariela Peña RN) sodium chloride 0.9% bolus 1,000 mL (COMPLETED) 1,000 mL, intravenous, at 1,000 mL/hr, Administer over 1 Hours, Once, On Fri05/28/19 at 1612, For 1 dose 1638 (Given - Provider: Rylee Lopez, GYPSY) Continuous Medication Order 05/28/2019 05/29/2019 05/30/2019 sodium chloride 0.9% infusion (CANCELED) 125 mL/hr, intravenous, Continuous, Starting on Fri05/28/19 at 1930 1855 (New Bag - Provider: Paige Villaseñor RN) 0017 (Rate/Dose Verify - Provider: Dot Tran RN)0357 (New Bag - Provider: Katharine Joseph RN)0814 (Rate/Dose Verify - Provider: Ariela Peña RN) PRN Medication Order 05/28/2019 05/29/2019 05/30/2019 HYDROmorphone (DILAUDID) injection 0.5 mg (CANCELED) 0.5 mg, intravenous, Administer over 2 Minutes, Every 3 hours PRN, 1st line for pain, Starting on Fri05/28/19 at 1845 0013 (Given - Provider: Dot Tran RN) HYDROmorphone (DILAUDID) injection 0.5 mg 0.5 mg, intravenous, Administer over 2 Minutes, Every 3 hours PRN, breakthrough pain, Starting on 05/29/19 at 0904 ketorolac (TORADOL) 15 mg/mL injection 30 mg 30 mg, intravenous, Every 6 hours PRN, 1st line for pain, Starting on 05/29/19 at 0904, For 5 days, For Adult IV push, administer over 15 seconds 0822 (Given - Provid er: Ariela Peña RN) loperamide (IMODIUM) capsule 2 mg 2 mg, oral, 4 times daily PRN, diarrhea, Starting on 05/30/19 at 1534, Maximum recommended dose 16 mg/day 1618 (Given - Provid er: Ariela Peña RN) methocarbamol (ROBAXIN) tablet 250 mg 250 mg, oral, 3 times daily PRN, muscle spasms, abdominal pain, Starting on Fri05/28/19 at 1846, Indications: Muscle Spasm ondansetron (ZOFRAN) injection 4 mg 4 mg, intravenous, Administer over 2 Minutes, Every 4 hours PRN, nausea, vomiting, Starting on Fri05/28/19 at 1845 simethicone (MYLICON) chewable tablet 80 mg 80 mg, oral, 2 times daily PRN, flatulence, Starting on 05/30/19 at 1407 documented in this encounter Orders Medications Ordered That Don ht Not Have Been Administered Count Last Ordered Date First Ordered Date simethicone (MYLICON) chewab le tablet 80 mg 1 05/30/2019 HYDROmorphone (DILAUDID) injection 0.5 mg 1 05/29/2019 methocarbamol (ROBAXIN) tablet 250 mg 1 ondansetron (ZOFRAN) injection 4 mg 1 05/28 General Supply Count Last Ordered Date First Or dered Date AQUA K PAD EQUIPMENT 1 05/29/2019 Diet Count Last Ordered Date First Orde red Date ADULT DISCHARGE DIET 1 05/30/2019 Nursing Count Last Ordered Date First Orde red Date DISCHARGE ACTIVITY 1 05/30/2019 FOLLOW UP PRIMARY PHYSICIAN 1 05/30/2019 CARDIO RESPIRATORY MONITORING 1 05/28/2019 Consult Count Last Ordered Date First Orde red Date IP CONSULT TO GASTROENTEROLOGY 1 05/28/2019 IV Count Last Ordered Date First Orde red Date SALINE LOCK IV 1 05/28/2019 CORE MEASURES Count Last Ordered Date First Ord ered Date REASON FOR NO VTE PROPHYLAXI S - HOSPITAL ADMISSION - MEDICATIONS 1 05/28/2019 ADT Patient Update Count Last Ordered Date Firs t Ordered Date ED IP DECISION TO ADMIT 1 05/28/2019 documented in this encounter Care Teams Baker Doughnut Relationship Specialty Start Date End Date Jonathan Amado MD PCP - General 03/18/17 documented as of this encounter
--- OUTSIDE RECORDS SUMMARY | 2024-10-17 03:14 | XMS_ITS | Encounter Summary ---
Author Organization [facility] Address [address] [place] [address] Phone Care Team Providers Care Magnetic Tape Composer Operator Name Role Phone Jonathan Amado MD Primary Care Provider [phone] Jim Shelby MD Unavailable [phone] Encounter Details Date Type Department Care Team (Late st Contact Info) Description 07/08/2019 4:30 PM CDT Office Visit [facility] [address] 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 Gender Identity Not on file Sexual Orientation Not on file documented as of this encounter Last Filed Vital Signs Vital Sign Reading Time Taken Comments Blood Pressure 127/83 07/08/2019 4:21 PM CDT Pulse 78 07/08/2019 4:21 PM CDT Temperature 36.7 ??C (98 ??F) 07/08/2019 4:21 PM CDT Respiratory Rate - - Oxygen Saturation - - Inhaled Oxygen Concentration - - Weight 63.6 kg (140 lb 4.8 oz) 07/08/2019 4:21 PM CDT Height 162.6 cm (5' 4 ) 07/08/2019 4:21 PM CDT Body Mass Index 24.08 07/08/2019 4:21 PM CDT documented in this encounter Ordered Prescriptions Prescription Sig Dispense Quantity Refills Last Filled Start Date End Date desipramine (NOPRAMIN) 10 mg tabletIndications:visc eral hypersensitivity Take 1 tablet (10 mg total) by mouth nightly 30 tablet 3 07/12/2019 0 documented in this encounter Progress Notes * Leilani Yao, MELODIE - 07/08/2019 4:30 PM CDT Subjective NAME: Pina Reynaga : 1970 DOS: 07/08/2019 Referred here Primary Care Physician: Jonathan Amado MD Consult requested by: Jonathan Amado MD Chief Complaint: abdominal pain HPI Ms. Reynaga is a 49 y/o female with a past medical history of CCY,chronic pain, fibromyalgia, GERD, PUD, presenting for an initial consult regarding chronic abdominal pain. 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 She did not have any abdominal pain until 10/2015, when she had an EGD for epigastric pain, which found a 2 cm hiatal hernia and gastropathy, she was told to continue Nexium. She had an EGD on 03/19/17 that found active and erosive duodenitis, a repeat EGD on 05/16/17 showed healed ulcers and a single gastric nodule that was negative for H pylori. She had an EGD/Colonoscopy on 08/21/18 for GERD and LLQ abdominal pain, the upper showed hiatal hernia, but otherwise normal. The colonoscopywas normal and it was suggested to have her next one at 51. On 04/19 of this year she presented to [facility] with increased abdominal pain and Dr. Shelby performed an ERCP with dual sphincterotomies and dual protective stent placement, ERCP to remove stents on 04/21. She had temporary relief of her symptoms, but was again admitted from 05/05-05/07 for similar abdominal pain and had negative CT a/p on 05/05. She was started on Robaxin 250 TID with improvement of pain while admitted, and continued this medication at discharge. On 05/28- she was again admitted at [facility] for abdominal pain, her labs were normal and imaging was not obtained, it was recommended that she get a second opinion from [facility]. 06/16 she presented again to [facility] for abdominal pain, nausea, and diaphoresis, but was not admitted and no labs or imaging were completed. Today she reports having daily mild RUQ and epigastric abdominal pain, she describes it as pullingand tugging pain. Eating exacerbates the pain (especially milk products), she denies having this pain before her ERCP in April. She has had an increase in bloating and gas. She reports soft, formed BM daily. She reports an almost 30 lbs weight loss since April, she eats 1 meal daily and Ensure BID, she states that she is nervous to eat due to abdominal pain. She was told to avoid fats in her diet.She continues to take Roboxin as needed for pain, she takes it about once a week. She has tried gabapentin in the past, but states that it gave her headaches. She reports currently seeing ID for an unknown autoimmune disease that is causing nausea (currently asymptomatic), bruising, vasculitis, andpossible thyroid nodules. She denies fever, chills, vomiting, heartburn, jaundice, dark urine, and bloody stools. She denies smoking, alcohol, and drug use. Throughout exam she appeared distracted and frequently interjected. Past Medical History: Diagnosis Date ??? Cervicalgia ??? Chronic low back pain ??? Coccygeal pain ??? Duodenal papillary stenosis ??? Fibromyalgia ??? Gastric ulcer ??? GERD (gastroesophageal reflux disease) ??? Irritable bowel syndrome ??? Osteoarthritis of knee ??? Patellar tendinitis ??? PUD (peptic ulcer disease) ??? Quadriceps tendinitis ??? Sciatica Patient Active Problem List Diagnosis ??? Allergic rhinitis ??? Positive antinuclear antibody ??? Arthritis ??? Prepatellar bursitis ??? Chronic frontal sinusitis ??? Chronic sinusitis ??? Pain in female pelvis ??? Fibromyalgia ??? Breast calcifications ??? Urinary urgency ??? Pain in left knee ??? Pain in joint ??? Other specified abnormal immunological findings in serum ??? Other muscle spasm ??? Myalgia ??? Mid back pain ??? Well woman exam with routine gynecological exam ??? Dysuria ??? Chest pain ??? Memory loss ??? Fatigue ??? Abdominal pain ??? Epigastric abdominal pain ??? Nausea ??? History of stomach ulcers ??? Gastroesophageal reflux disease with esophagitis ??? Elevated CK ??? Urticaria Current Outpatient Medications Medication Sig Dispense Refill ??? benzonatate (TESSALON ORAL) Take by mouth ??? Bifidobacterium infantis (ALIGN) 4 mg capsule Take 4 mg by mouth daily ??? cetirizine (ZyrTEC) 10 mg tablet Take 10 mg by mouth daily ??? dextromethorphan hb/doxylamine (ROBITUSSIN NIGHTTIME COUGH DM ORAL) Take by mouth ??? estradiol (VAGIFEM) 10 mcg tablet Insert 1 tablet (10 mcg total) into the vagina once a week 12tablet 2 ??? methocarbamol (ROBAXIN) 500 mg tablet Take 0.5 tablets (250 mg total) by mouth 3 (three) times a day as needed for muscle spasms (abdominal pain) 60 tablet 0 ??? pantoprazole DR (PROTONIX) 40 mg EC tablet Take 40 mg by mouth 2 (two) times a day ??? rizatriptan (MAXALT) 10 mg tablet Take 10 mg by mouth once as needed ??? tobramycin, bulk, 900 mcg/mg (not less than, FDC) powder Add 1 capsule of 20mg to 240ml saline (patient may mix own saline). Irrigate half in each nostril twice daily for 30 days. ??? acetaminophen (TYLENOL) 325 mg tablet Take 2 tablets (650 mg total) by mouth every 8 (eight) hours (Patient not taking: Reported on 07/08/2019) 30 tablet ??? multivitamin tablet Take 1 tablet by mouth daily ??? ondansetron ODT (ZOFRAN-ODT) 8 mg disintegrating tablet Dissolve 1 tablet oral every 8 hours asneeded for nausea and/or vomiting. (Patient not taking: Reported on 07/08/2019) 10 tablet 0 ??? oxyCODONE-acetaminophen (PERCOCET) 5-325 mg per tablet Take 1-2 tablets by mouth every 6 (six) hours as needed for pain (1 tablet for mild to moderate pain or 2 tablets for severe pain) (Patient not taking: Reported on 07/08/2019) 12 tablet 0 No current facility-administered medications for this visit. Allergies: Ciprofloxacin; Doxycycline; Iodinated contrast media; Levofloxacin; Sulfa (sulfonamide antibiotics); Sulfasalazine; Metrizamide; Morphine; Compazine [prochlorperazine]; and Gabapentin Family History Problem Relation Age of Onset [...] Alcohol use: No ??? Drug use: Never Past Surgical History: Procedure Laterality Date ??? BLADDER SURGERY 2002 ??? CHOLECYSTECTOMY ??? COLONOSCOPY ??? DIAGNOSTIC LAPAROSCOPY 1998 ??? ERCP In 2015 and again in April of 2019-sphincterotomies and stenting-dual sphincterotomies in April and dual duct stenting in April ??? ERCP W/ SPHICTEROTOMY ??? HYSTERECTOMY 2001 ??? HYSTEROSCOPY ??? LASIK ??? OOPHORECTOMY Left 1999 ??? OOPHORECTOMY Right 2010 ??? OVARIAN CYSTECTOMY ??? SC DILATION/CURETTAGE,DIAGNOSTIC ??? SINUS SURGERY ??? TONSILLECTOMY ??? UPPER GASTROINTESTINAL ENDOSCOPY ROS As outlined in HPI. All other systems negative. Vital Signs BP 127/83 Pulse 78 Temp 36.7 ??C (98 ??F) Ht 162.6 cm (5' 4 ) Wt 63.6 kg (140 lb 4.8 oz) BMI 24.08 kg/m?? Physical Exam GENERAL: no acute distress and well nourished HEENT: unremarkable LUNGS: clear to auscultation bilaterally CARDIOVASCULAR: regular rate and rhythm ABDOMEN: soft, nondistended, TTP RUQ/epigastrium/bladder, normal bowel sounds, no guarding, no HSM EXTREMITIES: No clubbing, cyanosis and edema SKIN: no rashes, brusiing and Jaundice Results: 05/06/19 CT C/A/P IMPRESSION: ?? No acute findings in the chest, abdomen, or pelvis. Assessment/Plan (This patient was seen in conjunction with Dr. Leo Gomez). Ms. Reynaga is a 49 y/o female with a past medical history of CCY,chronic pain, fibromyalgia, GERD, PUD, presenting for an initial consult regarding chronic abdominal pain. 1) Abdominal pain:She has had an extensive GI workup regarding her abdominal pain, before her ERCP in April her ducts did not show any dilation and continue to be normal. At this we do not believe that an ERCP would be beneficial. 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 She has had adverse reactions in the past to gabapentin (headaches), NTP, ATP, and Cymbalta. - Start Desipramine 10mg at bedtime for abdominal pain. Watch for side effects, call our office with concerns. - Recommend diet and exercise. Discussed and gave handouts regarding low FODMAP diet. Encouraged food diary to keep track of foods that may cause exacerbation of symptoms. Discussed avoiding straws, carbonation, and chewing gum. - No need to monitor fat intake. - Start Miralax, 1 capful daily, titrate until 1 soft, formed BM daily. Ms. Reynaga and her were given ample time to ask questions and have them answered. She canreturn to clinic in 3 months or sooner if needed. Orders No orders of the defined types were placed in this encounter. Cosigned by Leo Gomez MD at 07/12/2019 6:57 PM CDT documented in this encounter Plan of Treatment Not on file documented as of this encounter Visit Diagnoses Diagnosis Epigastric pain- Primary Abdominal pain, epigastric documented in this encounter Historical Medications * This list may reflect changes made after this encounter. tobramycin, bulk, 900 mcg/mg (not less than, FDC) powder Add 1 capsule of 20mg to 240ml saline (patient may mix own saline). Irrigate half in each nostril twice daily for 30 days. 07/06/2019 benzonatate (TESSALON ORAL) Take by mouth 2019 dextromethorphan hb/doxylamine (ROBITUSSIN NIGHTTIME COUGH DM ORAL) Take by mouth 10/19/2019 added in this encounter Care Teams Magnetic Tape Composer Operator Relationship Specialty Start Date End Date Jonathan Amado MD PCP - General 03/18/17 Jim Shelby MD [address] [address] Consulting Physician Gastroenterology 06/16/19 documented as of this encounter
--- OUTSIDE RECORDS SUMMARY | 2024-10-17 03:14 | XMS_ITS | Encounter Summary ---
Author Organization [facility] Address [address] [place] [address] Phone Care Team Providers Care General Merchandise Manager Name Role Phone Joanthan Amado MD Primary Care Provider [phone] Jim Shelby MD Unavailable [phone] Encounter Details Date Type Department Care Team (Late st Contact Info) Description 12/16/2020 Orders Only [facility] Scanning, [...] and Family Not on file 12/13/2019 Attends [employer] Services Not on file 12/12 Active Member [...] on file 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 Gender Identity Not on file Sexual Orientation Not on file documented as of this encounter Plan of Treatment Not on file documented as of this encounter Procedures Procedure Name Priority Date/Time Associated Diagnosis Comments SCAN - RADIOLOGY/IMAGING 12/16/2020 documented in this encounter Results * SCAN - RADIOLOGY/IMAGING (12/16/2020) Anatomical Region Laterality Modality Other us Provider Scanning Final Result documented in this encounter Visit Diagnoses Not on filedocumented in this encounter Care Teams General Merchandise Manager Relationship Specialty Start Date End Date Jonathan Amado MD PCP - General 03/18/17 Jim Shelby MD [id number] [address] Consulting Physician Gastroenterology 06/16/19 documented as of this encounter
--- OUTSIDE RECORDS SUMMARY | 2024-10-17 03:14 | XMS_ITS | Encounter Summary ---
Author Organization [facility] Address [address] [place] [address] Phone Care Team Providers Care Dental Surgeon Name Role Phone Jonathan Amado MD Primary Care Provider [phone] Jim Shelby MD Unavailable [phone] Encounter Details Date Type Department Care Team (Late st Contact Info) Description 12/10/2019 Telephone [facility] Gastroenterology [address] [facility] 8th [place] [address] [place] [address] Debra Moffett RN Social History Tobacco Use Types Packs/Day Years Used Date Smoking Tobacco: Never Smokeless Tobacco: Never Alcohol Use Standard Drinks/Week Comments No 0 (1 standard drink = 0.6 oz pur e alcohol) Comments No Sex and Gender Information Value Date Recorded Sex Assigned at Not on file 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 She is unable to tolerate food or liquids without severe pain. Pt was seen at her local ER last night, but sent home, still not able to tolerate PO. Pt will proceed to [place] [facility]. UCTION BROACHING MACHINE OPERATOR documented in this encounter Plan of Treatment Not on file documented as of this encounter Visit Diagnoses Not on filedocumented in this encounter Care Teams Dental Surgeon Relationship Specialty Start Date End Date Jonathan Amado MD PCP - General 03/18/17 Jim Shelby MD [address] [address] Consulting Physician Gastroenterology 06/16/19 documented as of this encounter
--- OUTSIDE RECORDS SUMMARY | 2024-10-17 03:14 | XMS_ITS | Encounter Summary ---
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
--- OUTSIDE RECORDS SUMMARY | 2024-10-17 03:14 | XMS_ITS | Encounter Summary ---
Author Organization [facility] Address [address] [place] [address] Care Team Providers Care Locomotive Oiler Name Role Phone Jonathan Amado MD Primary Care Provider [phone] Jim Shelby MD Unavailable [phone] Encounter Details Date Type Department Care Team (Latest Contact Info) Description 02/17/2020 2:25 PM CDT - 02/17/2020 11:59 PM CDT Hospital Encounter [facility] [address] [place] [address] Discharge Disposition: Discharge to home or self [...] and Family Not on file 12/13/2019 Attends Latter-Day Services Not on file 12/12 Active Member [...] Average Number of Drinks Not on file Frequency of Binge Drinking Not on file 12/11 Exercise Vital Sign Answer Date Recorde d Days of Exercise per Week 2 days 2019 Minutes of Exercise per Session 30 min 12/13/2019 Comments No Sex and Gender Information Value Date Recorded Sex Assigned at Not on file Legal Sex Female 9:51 AM SHINGLE BOLT CUTTER Gender Identity Not on file Sexual [...] tobramycin, bulk, 900 mcg/mg (not less than, CUSTODIAL) powder Add 1 capsule of 20mg to [...] Procedure Name Priority Date/Time Associated Diagnosis Comments CT BODY OUTSIDE REFERENCE Routine 02/17/2020 2:25 PM CDT Diagnosis unknown documented in this encounter Results * CT Body Outside Reference (02/17/2020 2:25 PM CDT) Impressions [facility] - 02/17/2020 2:25 PM CDT These images are for Reference purposes only and have not been reviewed by [facility] Radiology. ??There will be no report generated by a [facility] Radiologist. Narrative [facility] - 02/17/2020 2:25 PM CDT EXAMINATION: ??Images For Reference Purposes Only us Leo Gomez MD IMG CT PROCEDURES Final R esult [facility] documented in this encounter Visit Diagnoses Not on filedocumented in this encounter Care Teams Locomotive Oiler Relationship Specialty Start Date End Date Jonathan Amado MD PCP - General 03/18/17 Jim Shelby MD [address] [facility] [address] [place] [address] Consulting Physician Gastroenterology 06/16/19 documented as of this encounter
--- OUTSIDE RECORDS SUMMARY | 2024-10-17 03:14 | XMS_ITS | Encounter Summary ---
Author Organization [facility] Address [address] [place] [address] Phone Care Team Providers Care Flake Cutter Operator Name Role Phone Jonathan Amado MD Primary Care Provider [phone] Jim Shelby MD Unavailable [phone] Reason for Referral * Consultation (Routine) - Closed Specialty Diagnoses / Procedures Referred By Contac t Referred To Contact Physical Therapy Diagnoses Pelvic floor dysfunction in female Maximo Almanza MD [address] [place] [address] Phone: tel: fax: [facility] (All Locations) Referral ID Status Reason Start Date Expiration Date V isits Requested Visits Authorized [id number] Closed Specialty Services Required 12/13/2019 12/12/2020 12 12 Question Answer PTRFR PT Evaluate and Treat Therapy options discussed with patient? Yes Location provided for therapy services is: Patient requested/Patient preferred Please select the performing region: [facility] (All Locations) [[id number]] Comments [address] () NEERING AGENT Reason for Visit * Reason Comments New Patient * Consultation (Routine) - Closed Specialty Diagnoses / Procedures Referred By Contac t Referred To Contact Urogynecology Diagnoses Urinary incontinence, unspecified type Angy Harden MD Phone: tel: fax: [facility] (All Locations) Referral ID Status Reason Start Date Expiration Date V isits Requested Visits Authorized [id number] Closed Specialty Services Required 06/29/2019 01/07/2021 1 1 Encounter Details Date Type Department Care Team (Late st Contact Info) Description 12/13/2019 10:00 AM ENGINEERING AGENT Office Visit [facility] Obstetrics and Gynecology [address] [facility] 7th [address] [place] [address] Maximo Almanza MD [address] [place] [address] Mixed stress and urge urinary incontinence (Primary Dx); Urinary incontinence, unspecified type; Pelvic floor dysfunction in female; Vaginal atrophy Social History Tobacco Use Types Packs/Day Years [...] and Family Not on file 12/13/2019 Attends Gnosticist Services Not on file 12/12 Active Member [...] on file Legal Sex Female 9:51 AM ENGINEERING AGENT Gender Identity Not on file Sexual Orientation Not on file documented as of this encounter Last Filed Vital Signs Vital Sign Reading Time Taken Comments Blood Pressure 109/77 12/13/2019 9:54 AM ENGINEERING AGENT Pulse - - Temperature - - Respiratory Rate - - Oxygen Saturation - - Inhaled Oxygen Concentration - - Weight 64.9 kg (143 lb) 12/13/2019 9:54 AM ENGINEERING AGENT Height 162.6 cm (5' 4 ) 12/13/2019 9:54 AM ENGINEERING AGENT Body Mass Index 24.55 12/13/2019 9:54 AM ENGINEERING AGENT documented in this encounter Patient Instructions * Patient Instructions* Maximo Almanza MD - 12/13/2019 10:00 AM ENGINEERING AGENT Images from the original note were not included. NEERING AGENT documented in this encounter Progress Notes * Maximo Almanza MD - 12/13/2019 10:00 AM CST Chief Complaint: Stress predominant JOSH HPI: Pina Reynaga is a 49 y.o. female surgically postmenopausal since her hysterctomy [id number] Angy May for consultation regarding stress-predominant mixed urinary incontinence. She has had a vaginal hysterectomy with bilateral oophorectomy at [facility] in [place] in 2001 for endometriosis . She denies prolapse symptoms. She reports urinary symptoms for 1 year. She reports leakage of urine with coughing, laughing, and sneezing. She describes it as specifically with laughing which is significantly impacting her quality of life. She reports a history of a ' bladder [place] JOSH [place] [address] White . She reports leakage of urine with an urge. She does wear a pad for protection. She does have symptoms of urinary urgency and frequency. She does feel that she empties her bladder completely. She reports voiding1-2 twice while at work and up to 2-3 times at night. She denies bedwetting. She has tried the following overactive bladder medications to help with her symptoms: ditropan which did not work. She states she drinks 16.9 oz of fluids and consumes mainly water or the following bladder irritants a few sips of soda a day. She has seen Dr. Lombardi (Urologist) who prescribed an OAB medication (she can not recall the name of the medication) which she tried for 2 weeks without any improvement in symptoms. He also recommended interstim which she was not interested in trying. She has tried PFPT at [facility] for her symptoms in the past. She recalls going through a few sessions with improvement in symptoms. She does not recall undergoing UDS at any point. She reports a history of UTIs. She describes having at least 2 UTI's a year. She describes her typical symptoms are dysuria. She reports her last UTI was July of 2019 in she was treated at Urgent care for E. Coli. It usually takes about 3-4 days of antibiotic treatments for symptoms to resolve. She does not relate her UTI's to intercourse. She has had pyelonephritis in 2018. She reports a histroy of DMSO treatments for IC for years sometime before 2001 which has since resolved. She reports bowel symptoms including constipation. She is managed by Dr. Gomez, she is on Miralaxdaily which has not helped her with constipation. She reports going up to 3-4 days without a bowel movement. She reports fecal incontinence of stool seeping when she is constipated. She has a historyof IBS currently started on desipramine trial in October. She does not take fiber supplements to help with her constipation. She has had a colonoscopy within the last 5-10 years and it was normal. She reports a history of hip pain and knee pain.She reports left hip pain for a while . She describes it as intermittent she has had physical therapy in the past. She also describes right leg pain for which she seeing someone for next week. She reports a history of spinal stenosis. She denies a history of back surgery. She denies a history of a traumatic injury to pelvis/lower extremity. She denies a history of scoliosis. She denies menopausal symptoms. She denies vaginal dryness, she is on VET. She is not sexually active. She reports that her mammograms are up to date and have been normal. She reports that her last Pap smear was normal. Past medical history includes fibromyalgia, gastric ulcers and 'immunosystem disorder that caused her to be hospitalized in April-May of 2019 at [facility]. She is currently following with an operation research analyst for further work up, she is due to see them in January. Past Medical History: Diagnosis Date ??? Cervicalgia [...] OOPHORECTOMY Right 2010 ??? OVARIAN CYSTECTOMY ??? WA DILATION/CURETTAGE,DIAGNOSTIC ??? SINUS SURGERY ??? TONSILLECTOMY ??? UPPER GASTROINTESTINAL ENDOSCOPY (Not in a hospital admission) Current Outpatient Medications Medication Sig Dispense Refill ??? cetirizine (ZyrTEC) 10 mg tablet Take 10 mg by mouth daily ??? desipramine (NOPRAMIN) 10 mg tablet Take 1 tablet (10 mg total) by mouth nightly 30 tablet 3 ??? estradiol (VAGIFEM) 10 mcg tablet Insert 1 tablet (10 mcg total) into the vagina once a week 12tablet 2 ??? multivitamin tablet Take 1 tablet by mouth daily ??? pantoprazole DR (PROTONIX) 40 mg EC tablet Take 40 mg by mouth 2 (two) times a day ??? rizatriptan (MAXALT) 10 mg tablet Take 10 mg by mouth once as needed ??? sucralfate (CARAFATE) 1 gram tablet Take 1 g by mouth 4 (four) times a day ??? triamcinolone (KENALOG) 0.1 % cream APPLY TO AFFECTED AREA(S) ON HANDS TWICE A DAY NEEDED ??? acetaminophen (TYLENOL) 325 mg tablet Take 2 tablets (650 mg total) by mouth every 8 (eight) hours (Patient not taking: Reported on 07/08/2019) 30 tablet ??? methocarbamol (ROBAXIN) 500 mg tablet Take 0.5 tablets (250 mg total) by mouth 3 (three) times a day as needed for muscle spasms (abdominal pain) (Patient not taking: Reported on 10/19/2019) 60 tablet 0 ??? tobramycin, bulk, 900 mcg/mg (not less than, [facility]) powder Add 1 capsule of 20mg to 240ml saline (patient may mix own saline). Irrigate half in each nostril twice daily for 30 days. No current facility-administered medications for this visit. Allergies Allergen Reactions ??? Ciprofloxacin Rash and Muscle pain ??? Doxycycline Rash and Unknown ??? Iodinated Contrast Media Unknown Sneezing, shortness of breath, body aches Other reaction(s): Myalgias And joint pain after ??? Levofloxacin Rash ??? Sulfa (Sulfonamide Antibiotics) Other (See comments) and Rash ??? Sulfasalazine Rash Body aches ??? Metrizamide Unknown ??? Morphine Unknown and Nausea And Vomiting ??? Compazine [Prochlorperazine] Other (See comments) and Anxiety ??? Gabapentin Headache Social History Tobacco Use ??? Smoking status: Never Smoker ??? Smokeless tobacco: Never Used Substance Use Topics ??? Alcohol use: No Review of Systems Constitutional: Positive for malaise/fatigue. Negative for chills, diaphoresis, fever and weight loss. HENT: Negative for congestion, ear discharge, ear pain, hearing loss, nosebleeds, sinus pain, sore throat and tinnitus. Eyes: Positive for photophobia. Negative for blurred vision, double vision, pain, discharge and redness. Respiratory: Positive for cough. Negative for hemoptysis, sputum production, shortness of breath, wheezing and stridor. Cardiovascular: Negative for chest pain, palpitations, orthopnea, claudication, leg swelling and PND. Gastrointestinal: Positive for abdominal pain, constipation and heartburn. Negative for blood in stool, diarrhea, melena, nausea and vomiting. Genitourinary: Negative for dysuria, flank pain, frequency, hematuria and urgency. Musculoskeletal: Positive for back pain, joint pain and myalgias. Negative for falls and neck pain. Skin: Negative for itching and rash. Neurological: Positive for weakness. Negative for dizziness, tingling, tremors, sensory change, speech change, focal weakness, seizures, loss of consciousness and headaches. Endo/Heme/Allergies: Negative for environmental allergies and polydipsia. Bruises/bleeds easily. Psychiatric/Behavioral: Positive for memory loss. Negative for depression, hallucinations, substance abuse and suicidal ideas. The patient is not nervous/anxious and does not have insomnia. OBJECTIVE: Vitals: Most Recent : Vitals: 12/13/19 0954 BP: 109/77 Weight: 64.9 kg (143 lb) Height: 162.6 cm (5' 4 ) Body mass index is 24.55 kg/m??. Physical Exam: CONSTITUTIONAL: Well developed. Well nourished. HEENT: Atraumatic/Normocephalic RESPIRATORY: Clear to auscultation bilaterally. Normal respiratory effort. CARDIOVASCULAR: Regular rate and rhythm. Normal heart sounds. No murmurs. Normal peripheral vascular exam. ABDOMINAL: Abdomen, soft and nontender. No hernias. Tenderness to palpation medial to ASIS: Right. Yes suprapubic tenderness to palpation. BACK: Bilateral (R>L) SI joint tenderness. SKIN: Normal inspection. MUSCULOSKELETAL: No deformities/weakness. Moves all extremities well. NEUROLOGIC: Normal reflexes. PSYCHIATRIC: Oriented X 3. GENITOURINARY: External Genitalia: Normal appearance, no lesions. Urethral Meatus: Normal size and location. No lesions or prolapse. Urethra: No masses or tenderness. Bladder: No masses or tenderness. Vagina: No abnormal discharge. No Lesions. Atrophic changes noted. Good pelvic support. Cervix: Surgically absent Uterus: surgically absent Adnexa/Parametrial: No palpable masses, no tenderness. Perineal Sensation: normal. Anal Captiva: absent. POPQ Examination: No prolapse. Pelvic muscle (obturator internus & levator ani) assessment Retropubic L: 10/10 Retropubic R: 10/10 Right OI: 10/10 Right LA: 10/10 Left LA: 10/10 Left OI: 10/10 Pelvic Floor Contraction Strength (Fleming Scale) Muscle Strength Grading Grade 1: Very weak contraction, a flicker . Slight change in tension only Postvoid residual Voided volume: 60 mL Straight Catheterization Her urethra was prepped with Hibiclens. Straight catheterization performed using sterile technique.Pt tolerated procedure well. PVR: 10 mL Recent Results (from the past 6 hour(s)) POCT urinalysis dipstick Collection Time: 12/13/19 10:42 AM Result Value Ref Range Glucose, ur, POC Negative Negative mg/dL Bilirubin, ur, POC Negative Negative, Small, Moderate, Large Ketones, ur, POC Negative Negative Specific [place], POC 1.025 1.005 - 1.030 Blood, ur, POC Negative Negative pH, ur, POC 5.0 5.0 - 8.0 Protein, ur, POC Trace (A) Negative Urobilinogen, urine, POC 0.2 0.2 - 1.0 mg/dL Nitrite, ur, POC Negative Negative Leukocytes, ur, POC Negative Negative Lot Number [id number] ASSESSMENT: Pina Reynaga is a 49 y.o. female seen in consultation and found to have mixed urinary incontinence, pelvic floor myofacial pain, vaginal atrophy. PLAN: 1. Mixed urinary incontinence: Management options were discussed for stress- predominant LARISSA including expectant, conservative (behavioral modification, pelvic floor physical therapy, incontinence pessary), medical management and surgical management (synthetic midurethral sling, sacral neuromodulation, intravesicular botulinum toxin injections). A urine culture is being sent today to rule out a UTI as a possible cause of her symptoms. Her stress symptoms are more bothersome and she elected for pelvic floor physical therapy. She will complete a 3 day bladder diary and return for formal bladder testing due to the persistent mixed nature of her symptoms. 2) Pelvic floor muscle dysfunction/pain/spasms: We discussed the role that her pelvic floor muscle dysfunction is likely playing in her urinary symptoms and pelvic floor symptoms. Management options for levator ani/obturator pain/spasm were discussed including pelvic floor physical therapy/NSAIDs/muscle relaxants/vaginal icing. A prescription for PFPT was given as well as vaginal icing supplies. 3) Vaginal atrophy: We discussed the use of vaginal estrogen cream. I discussed the WHI study and the risks of systemic estrogen use. I explained that with vaginal application of 1g 2X per week minimal systemic absorption of estrogen occurs. To avoid stimulation of the uterus, estrogen should be applied to the lower 2/3 of the vagina. We discussed the risks of not using the cream including atrophy, erosion, increased risk of UTI. At the end of the discussion the patient desires to will continueusing vaginal estrogen. ATTENDING ATTESTATION I was present for all office procedures documented above. I was personally present during and performed the physical examination with Dr. Syed. Dr. Nash and I contributed to the documentation and I have personally performed a history, physical examination, and, the medical decision making. Maximo Almanza MD NEERING AGENT NEERING AGENT documented in this encounter Miscellaneous Notes * Addendum Note - Nicki Stafford CLT - 12/13/2019 10:00 AM CSTAddended by: NICKI STAFFORD on: 12/13/2019 02:15 PM Modules accepted: Orders NEERING AGENT documented in this encounter Plan of Treatment Scheduled Referrals Name Type Priority Associated Diagnoses Orde r Schedule Ambulatory referral order to Physical Therapy - Outpatient Referral Routine Pelvic floor dysfunction in female Ordered: 12/13/2019 documented as of this encounter Procedures Procedure Name Priority Date/Time Associated Diagnosis Comments POCT URINALYSIS DIPSTICK Routine 12/13/2019 10:42 AM ENGINEERING AGENT Urinary incontinence, unspecified type documented in this encounter Results * Urine culture Urine, clean voided (12/13/2019 2:15 PM ENGINEERING AGENT) Report Final Report: Less than 100,000 colonies/mL (clinically insignificant growth based on current clinical standards) [facility] Organism (CLINICALLY INSIGNIFICANT GROWTH [facility] Urine, clean voided 12/13/2019 2:15 PM ENGINEERING AGENT 12/13/2019 2:25 PM ENGINEERING AGENT Narrative KENY REN - 12/14/2019 3:28 PM ENGINEERING AGENT Collect 1 week prior to scheduled urodynamics. Testing performed by Microbiology Laboratory ([phone]) us Maximo Almanza MD LAB MICROBIOLOGY - GENERAL ORDERABLES Final Result Performing Organization Address City/[facility]/ZIP Co de Phone Number [facility] [place] [address] * (ABNORMAL) Urinalysis reflex to microscopic (12/13/2019 11:52 AM ENGINEERING AGENT) Color, ur Yellow Yellow [facility] Clarity, ur Clear Clear [facility] Specific gravity, ur 1.033(H) 1.010 - 1.025 [facility] pH, urine 5 [facility] Protein, ur ql 1+(A) Negative [facility] Glucose, ur ql Negative Negative [facility] Ketones, ur Negative Negative [facility] Bilirubin, ur Negative Negative [facility] Blood, ur Negative Negative [facility] Comment:Ascorbic acid identi fied in urine; possible false negative blood result. A microscopic exam will be added to identify RBCs. Urobilinogen, ur <2.0 <2.0 mg/dL [facility] Nitrite, ur Negative Negative [facility] Leukocyte esterase, ur Negative Negative [facility] UA reflex comment Reflex to microscopic UA will be performed. [facility] Urine 12/13/2019 11:5 2 AM ENGINEERING AGENT 12/13/2019 2:17 PM ENGINEERING AGENT Narrative [facility] - 12/13/2019 2:30 PM ENGINEERING AGENT ?? Urine pH is affected by diet, medications, systemic acid-base disturbances, and renal tubular function. ??pH may affect urinary stone formation. ??For example, urine pH below 6.0 may help reduce the tendency for calcium phosphate stones and pH greater than 6.0 may reduce the tendency for uric acid stone formation. Source: [facility] Carbonated Content. Last revised 10-23-2017 Maximo Almanza MD LAB URINE ORDERABLES Final Result Performing Organization Address [facility]/ZIP Co de Phone Number KENY REN [facility] [place] [address] * (ABNORMAL) POCT urinalysis dipstick (12/13/2019 10:42 AM ENGINEERING AGENT) Glucose, ur, POC Negative Negative mg/dL Comment:Voided 60cc Bilirubin, ur, POC Negative Negative, Small, Moderate, Large Ketones, ur, POC Negative Negative Specific [place], POC 1.025 1.005 - 1.030 Blood, ur, POC Negative Negative pH, ur, POC 5.0 5.0 - 8.0 Protein, ur, POC Trace(A) Negative Urobilinogen, urine, POC 0.2 0.2 - 1.0 mg/dL Nitrite, ur, POC Negative Negative Leukocytes, ur, POC Negative Negative Lot Number [id number] Urine 12/13/2019 10:4 2 AM ENGINEERING AGENT Maximo Almanza MD POINT OF CARE TEST ORDERABL ES Final Result documented in this encounter Visit Diagnoses Diagnosis Mixed stress and urge urinary incontinence- Primary Mixed incontinence urge and stress (male)(female) Urinary incontinence, unspecified type Pelvic floor dysfunction in female Vaginal atrophy Postmenopausal atrophic vaginitis Mixed stress and urge urinary incontinence Mixed incontinence urge and stress (male)(female) documented in this encounter Historical Medications * This list may reflect changes made after this encounter. triamcinolone (KENALOG) 0.1 % cream APPLY TO AFFECTED AREA(S) ON HANDS TWICE A DAY NEEDED 11/30/2019 sucralfate (CARAFATE) 1 gram tablet Take 1 g by mouth 4 (four) times a day 07/03/2020 added in this encounter Orders Outpatient Referral Count Last Ordered Date Fir st Ordered Date AMB REFERRAL TO UROGYNECOLOGY 1 12/13/2019 documented in this encounter Care Teams Flake Cutter Operator Relationship Specialty Start Date End Date Jonathan Amado MD PCP - General 03/18/17 Jim Shelby MD [address] [facility] [address] [place] [address] Consulting Physician Gastroenterology 06/16/19 documented as of this encounter
--- OUTSIDE RECORDS SUMMARY | 2024-10-17 03:14 | XMS_ITS | Encounter Summary ---
Author Organization [facility] Facility Care Team Providers Care Alumni Coordinator Name Role Phone Jonathan Amado MD Primary Care Provider [phone] Jim Shelby MD Unavailable [phone] Encounter Details Date Type Department Care Team (Latest Contact Info) Description 07/08/2019 Travel Social History Tobacco Use Types Packs/Day Years Used Date Smoking Tobacco: Never Smokeless Tobacco: Never Alcohol Use Standard Drinks/Week Comments No 0 (1 standard drink = 0.6 oz pur e alcohol) Comments No Sex and Gender Information Value Date Recorded Sex Assigned at Not on file Legal Sex Female 9:51 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
--- OUTSIDE RECORDS SUMMARY | 2024-10-17 03:14 | XMS_ITS | Encounter Summary ---
Author Organization [facility] Address [address] [place] [address] Phone Care Team Providers Care Skiver Operator Name Role Phone Jonathan Amado MD Primary Care Provider [phone] Jim Shelby MD Unavailable [phone] Encounter Details Date Type Department Care Team (Late st Contact Info) Description 12/13/2019 Documentation [facility] Obstetrics and Gynecology [address] [place] [address] Ami Dewitt Social History Tobacco Use Types Packs/Day Years [...] and Family Not on file 12/13/2019 Attends Baptism Services Not on file 12/12 Active Member [...] on file Legal Sex Female 9:51 AM CURING ROOM SUPERVISOR Gender Identity Not on file Sexual Orientation Not on file documented as of this encounter Progress Notes * Ami Dewitt - 12/13/2019 11:51 AM CST Patient did'nt want to schedule PT at the check out. Needs to talk with her first. I gave her all of the PT paperwork for it. NG ROOM SUPERVISOR documented in this encounter Plan of Treatment Not on file documented as of this encounter Visit Diagnoses Not on filedocumented in this encounter Care Teams Skiver Operator Relationship Specialty Start Date End Date Jonathan Amado MD PCP - General 03/18/17 Jim Shelby MD [address] [facility] [address] [place] [address] Consulting Physician Gastroenterology 06/16/19 documented as of this encounter
--- OUTSIDE RECORDS SUMMARY | 2024-10-17 03:14 | XMS_ITS | Encounter Summary ---
Author Organization [facility] Address [address] [place] [address] Care Team Providers Care Marketing Reps Sports And Entertainment Name Role Phone Jonathan Amado MD Primary Care Provider [phone] Jim Shelby MD Unavailable [phone] Encounter Details Date Type Department Care Team (Late st Contact Info) Description 11/29/2020 Telephone [facility] Advanced [facility] Breast [facility] ([facility] [address] [place] [address] Shabbir Coles, RT Social History Tobacco Use Types Packs/Day Years [...] and Family Not on file 12/13/2019 Attends Shinto Services Not on file 12/12 Active Member [...] on file Legal Sex Female 9:51 AM CIGAR ROLLER Gender Identity Not on file Sexual Orientation Not on file documented as of this encounter Miscellaneous Notes * Telephone Encounter - Shabbir Coles RT - 11/29/2020 11:00 AM CST Covid prescreen- talked to pt-ok R ROLLER documented in this encounter Plan of Treatment Not on file documented as of this encounter Visit Diagnoses Not on filedocumented in this encounter Care Teams Marketing Reps Sports And Entertainment Relationship Specialty Start Date End Date Jonathan Amado MD PCP - General 03/18/17 Jim Shelby MD [address] [facility] [address] [place] [address] Consulting Physician Gastroenterology 06/16/19 documented as of this encounter
--- OUTSIDE RECORDS SUMMARY | 2024-10-17 03:14 | XMS_ITS | Encounter Summary ---
Author Organization [facility] Care Team Providers Care Animal Rehabilitator Name Role Phone Jonathan Amado MD Primary Care Provider [phone] Jim Shelby MD Unavailable [phone] Encounter Details Date Type Department Care Team (Latest Contact Info) Description 10/19/2019 Travel Social History Tobacco Use Types Packs/Day Years Used Date Smoking Tobacco: Never Smokeless Tobacco: Never Alcohol Use Standard Drinks/Week Comments No 0 (1 standard drink = 0.6 oz pur e alcohol) Comments No Sex and Gender Information Value Date Recorded Sex Assigned at Not on file 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
--- OUTSIDE RECORDS SUMMARY | 2024-10-17 03:14 | XMS_ITS | Encounter Summary ---
Author Organization [facility] Address [address] [place] [address] Phone Care Team Providers Care Tire Design Engineer Name Role Phone Jonathan Amado MD Primary Care Provider [phone] Jim Shelby MD Unavailable [phone] Encounter Details Date Type Department Care Team (Late st Contact Info) Description 02/04/2020 Telephone [facility] Gastroenterology [address] 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 Thanks, Jimmy ----- Message ----- From: Debra Moffett RN Sent: 02/01/2020 1:16 PM CDT To: Jimmy Latham NP Did you want the CT on disk? If so, is this for reference or consult. Thanks! ----- Message ----- From: Jimmy Latham NP Sent: 01/26/2020 3:00 PM CDT To: Debra James RN Ladies, I called her to check on her. She has been in [facility] some time in November (she was alittle unsure of the dates). She has worsening epigastric and substernal chest burning in the setting of protonix and carafate. I offered a televisit but she is concerned her [facility] will not pay so she is going to call them. I suggested the followin. She call her insurance company and verify the televisits are paid under her insurance plan with the [employer]. 2. In the interim, can we will work on obtaining records from [facility] in November of 2019for the notes, [...] on filedocumented in this encounter Care Teams Tire Design Engineer Relationship Specialty Start Date End Date Jonathan Amado MD PCP - General 03/18/17 Jim Shelby MD [address] [address] Consulting Physician Gastroenterology 06/16/19 documented as of this encounter
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
--- OUTSIDE RECORDS SUMMARY | 2024-10-17 03:14 | XMS_ITS | Encounter Summary ---
Author Organization [facility] Address [address] [place] [address] Phone Care Team Providers Care Assessment Technician Name Role Phone Jonathan Amado MD Primary Care Provider [phone] Jim Shelby MD Unavailable [phone] Encounter Details Date Type Department Care Team (Late st Contact Info) Description 06/30/2019 Telephone [facility] Obstetrics and Gynecology [address] [facility] 7th [address] [place] [address] Christie Saleh, RN Social History Tobacco Use Types Packs/Day Years Used Date Smoking Tobacco: Never Smokeless Tobacco: Never Alcohol Use Standard Drinks/Week Comments No 0 (1 standard drink = 0.6 oz pur e alcohol) Comments No Sex and Gender Information Value Date Recorded Sex Assigned at Not on file 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 Gender Identity Not on file Sexual Orientation Not on file documented as of this encounter Ordered Prescriptions Prescription Sig Dispense Quantity Refills Last Filled Start Date End Date estradiol (VAGIFEM) 10 mcg tablet Insert 1 tablet (10 mcg total) into the vagina once a week 12 tablet 2 06/30/2019 07/17/2022 documented in this encounter Miscellaneous Notes * Telephone Encounter - Christie Saleh RN - 06/30/2019 10:12 AM CDT Insurance will not cover vagifem changed to estradiol documented in this encounter Plan of Treatment Not on file documented as of this encounter Visit Diagnoses Not on filedocumented in this encounter Discontinued Medications Medication Sig Discontinue Reason Start Date End Da te VAGIFEM 10 mcg tablet Insert 1 tablet (10 mcg total) into the vagina once a week 06/29/2019 06/30/2019 documented as of this encounter Care Teams Assessment Technician Relationship Specialty Start Date End Date Jonathan Amado MD PCP - General 03/18/17 Jim Shelby MD [address] [address] Consulting Physician Gastroenterology 06/16/19 documented as of this encounter
--- OUTSIDE RECORDS SUMMARY | 2024-10-17 03:14 | XMS_ITS | Encounter Summary ---
Author Organization [facility] Address [address] [place] [address] Phone Care Team Providers Care Gun Stocker Name Role Phone Jonathan Amado MD Primary Care Provider [phone] Jim Shelby MD Unavailable [phone] Encounter Details Date Type Department Care Team (Late st Contact Info) Description 10/19/2019 3:45 PM COLD WORKING INSPECTOR Office Visit [facility] Gastroenterology [address] [facility] [address] [place] [address] Leo Gomez MD [address] [place], [place] [id number] Epigastric pain (Primary Dx) Social History Tobacco Use Types Packs/Day Years Used Date Smoking Tobacco: Never Smokeless Tobacco: Never Alcohol Use Standard Drinks/Week Comments No 0 (1 standard drink = 0.6 oz pur e alcohol) Comments No Sex and Gender Information Value Date Recorded Sex Assigned at Not on file Legal Sex Female 9:51 AM COLD WORKING INSPECTOR Gender Identity Not on file Sexual Orientation Not on file documented as of this encounter Last Filed Vital Signs Vital Sign Reading Time Taken Comments Blood Pressure 136/82 10/19/2019 3:55 PM COLD WORKING INSPECTOR Pulse 71 10/19/2019 3:55 PM COLD WORKING INSPECTOR Temperature - - Respiratory Rate - - Oxygen Saturation - - Inhaled Oxygen Concentration - - Weight 64.9 kg (143 lb) 10/19/2019 3:55 PM COLD WORKING INSPECTOR Height 162.6 cm (5' 4 ) 10/19/2019 3:55 PM COLD WORKING INSPECTOR Body Mass Index 24.55 10/19/2019 3:55 PM COLD WORKING INSPECTOR documented in this encounter Ordered Prescriptions Prescription Sig Dispense Quantity Refills Last Filled Start Date End Date desipramine (NOPRAMIN) 10 mg tabletIndications:visc eral hypersensitivity Take 1 tablet (10 mg total) by mouth nightly 30 tablet 3 10/19/2019 0 documented in this encounter Progress Notes * Leo Gomez MD - 10/19/2019 3:45 PM CST Subjective NAME: Pina Reynaga : 1970 DOS: 10/19/2019 Chief Complaint: f/u abd pain HPI Pina Reynaga is a 49 y.o. female who returns to clinic today for follow up of chronic abdominal pain. Today, she says she is not doing well. Says she was doing ok until about Thanks when her symptoms recurred. She describes the onset of heartburn which pain in her chest ultimately settling in her right side (described as tightness). 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 She took desipramine for several days but this made her tired so she stopped taking it. She did not increase her physical activity or change her diet in any substantial way. She started Plexus products/biocleanse supplements thinking that this would help. She says that since taking this, her immunoglobulin levels have increased (which no other treatment had done in the past) and says her doctor cannot explain it. She describes feeling tired all the time. Denies depression. Past Medical History: Diagnosis Date ??? Cervicalgia [...] Take 10 mg by mouth daily ??? estradiol (VAGIFEM) 10 mcg tablet Insert [...] taking: Reported on 07/08/2019) 30 tablet ??? desipramine (NOPRAMIN) 10 mg tablet Take 1 tablet (10 mg total) by mouth nightly 30 tablet 3 ??? methocarbamol (ROBAXIN) 500 mg tablet Take 0.5 tablets (250 mg total) by mouth 3 (three) times a day as needed for muscle spasms (abdominal pain) (Patient not taking: Reported on 10/19/2019) 60 tablet 0 No current facility-administered medications for this visit. Ciprofloxacin; Doxycycline; Iodinated contrast media; Levofloxacin; Sulfa [...] OOPHORECTOMY Right 2010 ??? OVARIAN CYSTECTOMY ??? [place] DILATION/CURETTAGE,DIAGNOSTIC ??? SINUS SURGERY ??? TONSILLECTOMY ??? UPPER GASTROINTESTINAL ENDOSCOPY ROS As outlined in HPI. All other systems negative. PHYSICAL EXAM: BP 136/82 Pulse 71 Ht 162.6 cm (5' 4 ) Wt 64.9 kg (143 lb) BMI 24.55 kg/m?? GENERAL: awake, alert, depressed affect HEENT: no scleral icterus, oropharynx unremarkable NECK: supple without lymphadenopathy LUNGS: clear to auscultation bilaterally. HEART: normal S1, S2, no murmurs, rubs, gallops ABDOMEN: normoactive bowel sounds, soft, nontender, non-distended, no hepatosplenomegaly, no masses EXTREMITIES: no clubbing, cyanosis, edema; no rashes NEURO: no focal deficits ASSESSMENT AND PLAN: 49 yo WF with multiple functional disorders (fibromyalgia, interstitial cystitis) who was referred to GI clinic for abd pain following absence of relief from ERCP with sphincterotomy. My impression at my initial visit was that she had functional GI symptoms and that she would benefit from a neuromodulator, dietary modification, and increased physical activity. She has done none of this but has started a supplement which she thinks is helping (since it helped her immunoglob levels). I think there is a substantial overlay of untreated depression. - Encouraged desipramine trial (at least several months) - Increase physical activity - FODMAP diet - ok to continue supplements - consider evaluation for/treatment of depression We will see the patient back in clinic in 3 months. If she does not adhere to my recommendations, Icannot make a meaningful assessment of her progress and will have nothing else to offer. I explained that her symptoms were functional in nature and that I did not have a procedure or disease-specific medication to prescribe that that a lot of her improvement would be based on her participation in the treatment plan. The patient and her spouse were given ample opportunity to ask any questions andtheir questions were answered. WORKING INSPECTOR documented in this encounter Plan of Treatment Not on file documented as of this encounter Visit Diagnoses Diagnosis Epigastric pain- Primary Abdominal pain, epigastric documented in this encounter Discontinued Medications Medication Sig Discontinue Reason Start Date End Da te dextromethorphan hb/doxylamine (ROBITUSSIN NIGHTTIME COUGH DM ORAL) Take by mouth Therapy completed 10/19 benzonatate (TESSALON ORAL) Take by mouth Therapy completed 10/19/2019 oxyCODONE-acetaminophen (PERCOCET) 5-325 mg per tabletIndications:Pain Take 1-2 tablets by mouth every 6 (six) hours as needed for pain (1 tablet for mild to moderate pain or 2 tablets for severe pain) Therapy completed 06/16/2019 10/19/2019 ondansetron ODT (ZOFRAN-ODT) 8 mg disintegrating tablet Dissolve 1 tablet oral every 8 hours as needed for nausea and/or vomiting. Therapy completed 06/16/2019 10/19/2019 Bifidobacterium infantis (ALIGN) 4 mg capsule Take 4 mg by mouth daily Therapy completed 10/19/2019 desipramine (NOPRAMIN) 10 mg tabletIndications:visceral hypersensitivity Take 1 tablet (10 mg total) by mouth nightly Reorder 07/12/2019 10/19/2019 documented as of this encounter Care Teams Gun Stocker Relationship Specialty Start Date End Date Jonathan Amado MD PCP - General 03/18/17 Jim Shelby MD [address] [address] Consulting Physician Gastroenterology 06/16/19 documented as of this encounter
--- OUTSIDE RECORDS SUMMARY | 2024-10-17 03:14 | XMS_ITS | Encounter Summary ---
Author Organization [facility] Address [address] [place] [address] Phone Care Team Providers Care Glaze Grinder Name Role Phone Jonathan Amado MD Primary Care Provider [phone] Jim Shelby MD Unavailable [phone] Reason for Referral * Diagnostic Imaging (Routine) - Closed Specialty Diagnoses / Procedures Referred By Contac t Referred To Contact Diagnoses Right knee pain, unspecified chronicity Procedures XR Knee Right 3 Views Johan Rojas IV, MD Phone: tel: fax: [facility] Referral ID Status Reason Start Date Expiration Date Visits Re quested Visits Authorized [id number] Closed 12/21/2019 07/01/2021 1 1 Reason for Visit * Reason Comments Pain Encounter Details Date Type Department Care Team (Late st Contact Info) Description 12/23/2019 4:00 PM CDT Office Visit [facility] Orthopaedic Surgery [address] [place] [address] [place] [address] [place], [place] [id number] Anterior knee pain, right (Primary Dx); Patellofemoral pain syndrome of right knee Social History Tobacco Use Types Packs/Day Years [...] on file 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 No / Unsure 12/23/2019 3:46 PM CDT documented as of this encounter Last Filed Vital Signs Vital Sign Reading Time Taken Comments Blood Pressure - - Pulse - - Temperature - - Respiratory Rate - - Oxygen Saturation - - Inhaled Oxygen Concentration - - Weight 64.9 kg (143 lb) 12/23/2019 5:58 PM CDT Height 162.6 cm (5' 4 ) 12/23/2019 5:58 PM CDT Body Mass Index 24.55 12/23/2019 5:58 PM CDT documented in this encounter Progress Notes * Grupo Falk MD - 12/23/2019 12:00 AM CDT NEW PATIENT VISIT CHIEF COMPLAINT: [id number] worsening of right knee pain for the past 8 months. HISTORY OF PRESENT ILLNESS: This is a pleasant 49-year-old female who presents with 8-month worsening of right knee pain. She has previously been treated for this in 2013 with NSAIDs, but is unable to take those anymore due to autoimmune disease and stomach ulcers. The primary problems today are pain, catching, and swelling in the front of the knee as well as some loss of motion. Pain is located predominantly anteriorly andis described in aching and burning in nature. She describes the pain as severe and it is located predominantly anteriorly. No pain at night. She is not taking any pain medication currently. She is having difficulty going up and down stairs. She has been using BioFreeze for treatment for this. She is not competitive in any athletics at this time. It is not work related or Workers' Compensation injury. No legal claims related to this. She was previously seen in 2014 for this, given a prescriptionfor NSAID, and referred to physiatry for this. She was also noted at that time, on an MRI, to have a possible posterior horn and medial meniscus tear, but this was nondisplaced and questionable at [facility]. In the interim, she has not had any further treatment for her right knee. She has not had a cortisone injection or had any physical therapy for this. She has never had surgery on the right knee. PHYSICAL EXAMINATION: General: The patient is a pleasant, adult female, in no acute distress. She is 5 feet 4 inches talland 143 pounds. She is alert and oriented x3. Respirations are regular without distress. Hearing isintact to spoken word. Musculoskeletal: She ambulates with a normal gait. There is skin which is intact bilaterally without effusion, erythema, edema, ecchymosis, prior incisions, or atrophy bilaterally. There is tenderness to palpation on the right about the patella. Around the patellar tendon, there is some tenderness right in the quad tendon. No tenderness on the medial or lateral joint lines bilaterally. No tenderness over the posterior joint lines bilaterally. Negative tenderness over the pes insertion. No tenderness on the left of the patella or quad tendons. Range of motion is from 0 to 130 degrees both active and passive and flexion bilaterally. Stability testing shows 1A Sheila bilaterally. Stable to varus and valgus at 0 and 30 degrees bilaterally. There is 1A anterior and posterior drawer bilaterally. Negative pivot, negative reverse pivot, negative dial bilaterally. She has a positive Thessaly and positive squat focalized anteriorly. Negative squat on the right, negative on the left. Positive flexion compression on the right, negative on the left. Positive Dotty on the right, negative on the left. Positive hyperflexion on the right, negative on the left. Negative hyperextension bilaterally. Patellofemoral tracking is normal and there is mild crepitus. 5/5 strength in the quads, hamstrings, tib ant, EHL, and gastrosoleus bilaterally. Sensation is intact to light touch in the LFC, saphe nous, superficial peroneal, deep peroneal, and tibial nerve distributions. She has palpable DP and PT pulses bilaterally with regular rate and rhythm. REVIEW OF X-RAY/STUDIES: Radiographs reviewed today demonstrate very mild progression of her medial compartment predominant joint space narrowing from previous radiographs obtained in 2014. There are no other significant degenerative changes on plain films as compared to previous. MRI from 2014 was also reviewed and there is no obvious meniscal tearing, but there is some chondromalacia of the patella. IMPRESSION/DIAGNOSIS: A 49-year-old female with right patellofemoral pain. TREATMENT PLAN: We will plan for a course of physical therapy for her for the next 6 weeks. We will see her back after that time. If she is having continued symptoms, then we will discuss whether repeat imaging is necessary. Please see Dr. Rojas's note for further details and discussion of the plan. Dictated by: Grupo Falk M.D. ATTENDING ADDENDUM The patient was seen and examined by me in conjunction with the resident, Dr. Luigi Falk. I agree with the findings dictated in the resident's note. Briefly, the patient is a 49-year-old woman wehave seen previously many years ago for knee pain. She has had a lot of foot and distal lower extremity issues recently, but now in the last 2 months her knees have been increasing in pain. It is a moderate aching pain, worse with walking, better with staying off of it. No other recent treatment orevaluation for this. Past medical history, medications, allergies, past surgical history, family history, social history, and review of symptoms were filled out by the patient on the enclosed intake form which was reviewed and signed by me. PHYSICAL EXAMINATION: I agree with the findings dictated in the resident's note. Briefly, skin is intact in both lower extremities. No erythema, ecchymosis, edema, or effusion bilaterally. No significant tenderness on theknee bilaterally. Ligamentously stable bilaterally. Does get some anterior pain with squat and Thessaly on the right, negative on the left. Grossly neurovascularly intact distally bilaterally. REVIEW OF X-RAY/STUDIES: I reviewed plain films, 3 views of the right knee, including bilateral Merchant and Alberto takentoday, which show no fracture, normal joint spaces. IMPRESSION/DIAGNOSIS: I agree with the assessment and plan as outlined in the resident's note. TREATMENT PLAN: Briefly, I explained to Pina there is no reason to jump to imaging or aggressive intervention at this time. I would recommend 6 weeks of patellofemoral PT. If she does well, follow-up is as needed. If she had persistent or recurrent symptoms, then I recommend she give us a call. We will get anMRI and bring her back in. I explained the MRI would be unlikely to change initial management. Pina had all of her questions answered and appears comfortable with this plan going forward. ELECTRONICALLY SIGNED - 12/24/2019 05:17 PM Johan Rojas MD Professor Sports Medicine, Shoulder and Knee Surgery [facility] JCELE/RB/po cc: JONATHAN AMADO MD Cosigned by Johan Rojas IV, MD at 12/24/2019 5:18 PM CDT documented in this encounter Plan of Treatment Not on file documented as of this encounter Results * XR Knee Right [...] radiographs. Electronically signed by: Xavier Wilks M.D. Johan Rojas IV, MD IMG XR PROCEDURES Fin al Result documented in this encounter Visit Diagnoses Diagnosis Anterior knee pain, right- Primary Patellofemoral pain syndrome of right knee Right knee pain, unspecified chronicity documented in this encounter Care Teams Glaze Grinder Relationship Specialty Start Date End Date Jonathan Amado MD PCP - General 03/18/17 Jim Shelby MD [address] [address] Consulting Physician Gastroenterology 06/16/19 documented as of this encounter
--- OUTSIDE RECORDS SUMMARY | 2024-10-17 03:14 | XMS_ITS | Encounter Summary ---
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
--- OUTSIDE RECORDS SUMMARY | 2024-10-17 03:14 | XMS_ITS | Encounter Summary ---
Author Organization [facility] Address [address] [place] [address] Care Team Providers Care Rn Women Services Name Role Phone Jonathan Amado MD Primary Care Provider [phone] Jim Shelby MD Unavailable [phone] Encounter Details Date Type Department Care Team (Late st Contact Info) Description 01/26/[address] 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 Shecomplains of worsening epigastric and substernal chest burning despite the use of Carafate and Protonix. She reporting having undergone a CT scan that revealed ???inflammation?? of the stomach. We had canceled her office visit given the COVID pandemic. I have offered her a televisit although she is concerned that her insurance company will not pay. I suggested the following plan: 1. She call her insurance company and verify [facility] 2. In the interim we will work on obtaining records from [facility] in November of 2019 for the notes, CT scan and laboratory evaluation. The patient verbalized understanding of this and wished to proceed. I gave her contact information for her nurse coordinator, Debra, for her to call when she is assured of insurance payment. I alsosuggested that we wait to talk to her during a televisit once we have obtained the records from [facility]. She verbalized understanding of this and wished to proceed. She will call us to schedule the appointment when she has talked [facility] documented in this encounter Plan of Treatment Not on file documented as of this encounter Visit Diagnoses Not on filedocumented in this encounter Care Teams Rn Women Services Relationship Specialty Start Date End Date Jonathan Amado MD PCP - General 03/18/17 Jim Shelby MD [address] [address] Consulting Physician Gastroenterology 06/16/19 documented as of this encounter
--- OUTSIDE RECORDS SUMMARY | 2024-10-17 03:15 | XMS_ITS | Encounter Summary ---
Author Organization [facility] Address [address] [place] [address] Care Team Providers Care Wind Energy Mechanic Name Role Phone Jonathan Amado MD Primary Care Provider [phone] Encounter Details Date Type Department Care Team (Latest Contact Info) Description 05/16/2017 11:22 AM CDT - 05/16/2017 2:15 PM CDT Hospital Encounter 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 Gender Identity Not on file Sexual Orientation Not on file documented as of this encounter Discharge Disposition Disposition Code Departure Means Destination Discharge to home or self care documented in this encounter Plan of Treatment Not on file documented as of this encounter Procedures Procedure Name Priority Date/Time Associated Diagnosis Comments SURGICAL PATHOLOGY Routine 05/16/2017 12 :58 PM CDT UPPER GASTROINTESTINAL ENDOSCOPY REPORT 05/16/2017 SURGICAL PATHOLOGY 05/16/2017 12 :00 AM CDT documented in this encounter Results * Surgical pathology (05/16/2017 12:58 PM CDT) 05/16/2017 12:5 8 PM CDT 05/16/2017 2:34 PM CDT Narrative 05/17/2017 12:57 PM CDT [address] ??[id number] Tele: ?? Felicia Reid MD - Doll Dresser ?? Reece Palacio - Ethanol Operations Manager SURGICAL PATHOLOGY REPORT ?Patient Name: PINA REYNAGA Address: [address] [place] [address] Service: Gastro ??[place], [place] ?? Location: [facility] ? Taken: 05/16/2017 Gender: F Received 05/16/2017 : 1970 (Age: 47) [facility] #: [id number] Reported: 05/17/2017 ?? Patient Type: Same Day Surgery Physician(s): Jim Shelby M.D. Jonathan Amado M.D. Toro Sarah M.D. ?? DIAGNOSIS: Stomach, antrum, biopsy: ? - Polypoid fragment of antral mucosa with focal reactive epithelial changes and scant chronic inflammation - No Helicobacter pylori organisms identified with routine stain [facility]/05/17/2017 12:12 Examining Pathologist: John Friedman MD, PhD ??Report Reviewed and Electronically Signed By ??John Friedman MD, PhD ?? SPECIMEN TYPE: A: STOMACH ANTRUM CLINICAL IMPRESSION AND HISTORY: 47-year-old woman with follow-up of gastric duodenal ulcers detected during evaluation of epigastric abdominal pain, now resolved. ??Exam findings: The examined esophagus was normal with the exception of a 1 cm hiatus hernia. ??A single small mucosal papule/nodule was found the gastric antrum. ??Biopsy were taken for histology into evaluate for Helicobacter pylori. ??The examined duodenum was normal. GROSS DESCRIPTION: Received in formalin and labeled Pina Reynaga and stomach antrum are three pieces of soft burroughs tissue measuring 0.6 x 0.2 x 0.2 cm in aggregate. ??The specimen is entirely submitted in A 1. ?js/05/16/2017 14:52 ? CELE HUANG MICROSCOPIC DESCRIPTION: Sections of the antral biopsy reveal a polypoid fragment of antral mucosa with focal reactive epithelial changes and scant chronic inflammation. ??No Helicobacter pylori organisms are identified with routine stain. Clerical Data Follows A; [id number] The immunohistochemical test(s) cited in this report, if any, was developed and its performance characteristics determined by [facility] Pathology Department. ??It has not been cleared or approved by the U.S. Food and Drug Administration. ??The FDA has determined that such clearance or approval is not necessary. ??This test is used for clinical purposes. ??It should not be regarded as investigational or for research. ??[facility] Laboratory is certified under the Clinical Laboratory Improvement Amendments of 1988 (CLIA) as qualified to perform high complexity testing. ??Immunostains were performed on formalin-fixed paraffin embedded tissue using a polymer diaminobenzidine chromogen detection system. Antibodies used may include clone SP1 (rabbit monoclonal, estrogen receptor), clone 1E2 (rabbit monoclonal progesterone receptor), Ki-67 (rabbit monoclonal, 30-9), and [id number] (rabbit polyclonal, c-kit). Jim Shelby MD LAB PATHOLOGY ORDERABLES Fi nal Result * SURGICAL PATHOLOGY (05/16/2017 12:00 AM CDT) Narrative 05/16/2017 12:00 AM CDT Ordered by an unspecified provider. Historical Provider LAB PATHOLOGY ORDERABLES Final Result * UPPER GASTROINTESTINAL ENDOSCOPY REPORT (05/16/2017) Anatomical Region Laterality Modality Other Provider Scanning GI PROCEDURE ORDERABLES Final Result documented in this encounter Visit Diagnoses Not on filedocumented in this encounter Care Teams Wind Energy Mechanic Relationship Specialty Start Date End Date Jonathan Amado MD PCP - General 03/18/17 documented as of this encounter
--- OUTSIDE RECORDS SUMMARY | 2024-10-17 03:15 | XMS_ITS | Encounter Summary ---
Author Organization [facility] Healthcare Address [address] [place] [address] Care Team Providers Care Laserist Name Role Phone Jonathan Amado MD Primary Care Provider [phone] Encounter Details Date Type Department Care Team (Late st Contact Info) Description 06/26/2018 4:50 PM CDT Lab [address] [address] Memory loss; Myalgia; Fatigue, unspecified type Social History Tobacco Use Types Packs/Day Years Used Date Smoking Tobacco: Never Smokeless Tobacco: Never Alcohol Use Standard Drinks/Week Comments No 0 (1 standard drink = 0.6 oz pur e alcohol) Comments No Sex and Gender Information Value Date Recorded Sex Assigned at Not on file 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 Gender Identity Not on file Sexual Orientation Not on file documented as of this encounter Plan of Treatment Not on file documented as of this encounter Procedures Procedure Name Priority Date/Time Associated Diagnosis Comments MYOMARKER PANEL 3 Routine 06/26/2018 4:5 0 PM CDT Myalgia METHYLMALONIC ACID, SERUM Routine 06/26/2018 4:50 PM CDT Myalgia ALDOLASE Routine 06/26/2018 4:50 PM CDT Myalgia ERYTHROCYTE SEDIMENTATION RATE Routine 06/26/2018 4:50 PM CDT Myalgia IMMUNOFIXATION ELECTROPHORESIS Routine 06/26/2018 4:50 PM CDT Myalgia VITAMIN B12 Routine 06/26/2018 4:50 PM CDT Memory loss Myalgia Fatigue, unspecified type CREATINE KINASE (CK), TOTAL Routine 06/26/2018 4:50 PM CDT Myalgia documented in this encounter Results * Erythrocyte sedimentation rate (06/26/2018 4:50 PM CDT) [facility] Erythrocyte sedimentation rate 4 1 - 20 mm/hr [facility] Blood specimen (specimen) 06/26/2018 4:50 PM CDT 06/26/2018 5:05 PM CDT Narrative [facility] - 06/26/2018 6:57 PM CDT us Vickey Huitron MD PhD LAB BLOOD ORD ERABLES Final Result [facility] Department [place] [address] * (ABNORMAL) Creatine kinase (CK), total (06/26/2018 4:50 PM CDT) [facility] CK 214(H) 30 - 200 Units/L [facility] Blood specimen (specimen) 06/26/2018 4:50 PM CDT 06/26/2018 5:05 PM CDT Narrative [facility] - 06/26/2018 5:52 PM CDT us Vickey Huitron MD PhD LAB BLOOD ORD ERABLES Final Result [facility] Department [place] [address] * Aldolase (06/26/2018 4:50 PM CDT) [facility] Aldolase 6.6 0.1 - 8.0 Units/L [facility] Blood specimen (specimen) 06/26/2018 4:50 PM CDT 06/26/2018 5:05 PM CDT [facility]ative [facility] - 06/28/2018 10:15 AM CDT Vickey Huitron MD PhD LAB BLOOD ORD ERABLES Final Result Performing Organization Address City/[facility]/ZIP Co de Phone Number [facility] [place] [address] * Methylmalonic acid, serum (06/26/2018 4:50 PM CDT) [facility] MMA 0.17 <=0.40 nmol/mL [facility] Comment: ADDITIONAL INFORMATION This test was developed and its performance characteristics determined by [facility] in a manner consistent with CLIA requirements. This test has not been cleared or approved by the U.S. Food and Drug Administration. Test Performed by: [address] [address] Blood specimen (specimen) 06/26/2018 4:50 PM CDT 06/26/2018 5:26 PM CDT Narrative [facility] - 07/01/2018 8:55 AM CDT Vickey Huitron MD PhD LAB BLOOD ORD ERABLES Final Result [facility] [place] [address] * Myomarker panel 3 (06/26/2018 4:50 PM CDT) [facility] Anti-Graciela-1 ab <20 <20 Units [facility] Anti PL-7 ab Negative Negative [facility] Anti PL-12 ab Negative Negative [facility] Anti EJ ab Negative Negative [facility] Anti OJ ab Negative Negative [facility] Anti SRP ab Negative Negative [facility] Anti Mi-2 ab Negative Negative [facility] Polymyositis PM-SCL ab <20 <20 Units [facility] Fibrillarin U3 ab Negative Negative [facility] Anti U2 SN METROLOGY TECHNICIAN ab Negative Negative [facility] Anti U1RNP ab <20 <20 Units [facility] Anti KU ab Negative Negative [facility] P155/140 ab <20 <20 Units [facility] MDA-5 P140 ab <20 <20 Units [facility] NXP-2 P140 ab <20 <20 Units [facility] SSA52 KD ab IgG <20 <20 Units [facility] Comment: ADDITIONAL INFORMATION EIA Interpretation: ??Negative ? <20 Units ??Weak Positive ?20-39 Units ??Moderate Positive ??40-80 Units ??Strong Positive ?>80 Units This panel was developed and its performance characteristics validated by [facility]. There is no FDA approved assay for the above tests. As a lab developed test (LDT), approval or clearance by the FDA is not required. This test may be used for clinical purposes and should not be regarded as investigational or for research. Test Performed by: [facility] [address] [place] [address] Blood specimen (specimen) 06/26/2018 4:50 PM CDT 06/26/2018 7:05 PM CDT Narrative [facility] - 07/10/2018 1:55 PM CDT us Vickey Huitron MD PhD LAB BLOOD ORD ERABLES Final Result [facility] Department [place] [address] * Immunofixation (06/26/2018 4:50 PM CDT) [facility] Immunofixation No monoclonal protein detected. [facility] Blood specimen (specimen) 06/26/2018 4:50 PM CDT 06/26/2018 5:05 PM CDT Narrative [facility] - 06/30/2018 7:37 AM CDT us Vickey Huitron MD PhD LAB BLOOD ORD ERABLES Final Result Performing Organization Address City/[facility]/ZIP Co de Phone Number [facility] [place] [address] * Vitamin B12 (06/26/2018 4:50 PM CDT) [facility] Vitamin B12 804 230 - 1,250 pg/mL [facility] Blood specimen (specimen) 06/26/2018 4:50 PM CDT 06/26/2018 5:05 PM CDT Narrative [facility] - 06/26/2018 6:35 PM CDT us Vickey Huitron MD PhD LAB BLOOD ORD ERABLES Final Result Performing Organization Address City/[facility] Co de Phone Number [facility] [place] [address] documented in this encounter Visit Diagnoses Diagnosis Memory loss Myalgia Unspecified myalgia and myositis Fatigue, unspecified type documented in this encounter Care Teams Laserist Relationship Specialty Start Date End Date Jonathan Amado MD PCP - General 03/18/17 documented as of this encounter
--- OUTSIDE RECORDS SUMMARY | 2024-10-17 03:15 | XMS_ITS | Encounter Summary ---
Author Organization [facility] Healthcare Address [address] [place] [address] Care Team Providers Care Buffing Turner And Counter Name Role Phone Jonathan Amado MD Primary Care Provider [phone] Reason for Referral * Diagnostic Imaging (Routine) - Closed Specialty Diagnoses / Procedures Referred By Chidi sorensen Referred To Contact Diagnoses Encounter for screening mammogram for malignant neoplasm of breast Procedures Screening Mammogram Bilateral W Angy Arce MD Phone: tel: fax: [address] [phone] Referral ID Status Reason Start Date Expiration Date Visits Re quested Visits Authorized [id number] Closed 08/04/2018 02/13/2020 1 1 D CANE SCALER Reason for Visit * Diagnostic Imaging (Routine) - Closed Specialty Diagnoses / Procedures Referred By Chidi sorensen Referred To Contact Diagnoses Encounter for screening mammogram for malignant neoplasm of breast Procedures Screening Mammogram Bilateral W Angy Arce MD Phone: tel: fax: [address] [phone] Referral ID Status Reason Start Date Expiration Date Visits Re quested Visits Authorized [id number] Closed 08/04/2018 02/13/2020 1 1 Encounter Details Date Type Department Care Team (Latest Contact Info) Description 09/07/2018 3:47 PM FIELD CANE SCALER - 09/07/2018 11:59 PM FIELD CANE SCALER Hospital Encounter [facility] [address] [place] [address] Angy Harden MD [address] [address] Encounter for screening mammogram for malignant neoplasm [...] file Legal Sex Female 9:51 AM FIELD CANE SCALER Gender Identity Not on file Sexual Orientation Not on file documented as of this encounter Medications at Time of Discharge cetirizine (ZyrTEC) 10 mg tablet Take 1 tablet (10 mg total) by mouth daily Bifidobacterium infantis (ALIGN) 4 mg capsule Take 4 mg by mouth daily 9 cyanocobalamin, vitamin B-12, 1,000 mcg capsule Take 1,000 mcg by mouth. 9 EPINEPHrine 0.3 mg/0.3 mL auto-injection syringeIndications: Anaphylaxis Inject 0.3 mg into the muscle as instructed. 12/19/2017 9 magnesium Q-fvpmig-tmpxhosogo e 42 mg (500 mg)- 250 mg tablet extended release Take 250 mg by mouth. 9 OXcarbazepine (TRILEPTAL) 150 mg tablet Take one in the evening for one week. Increase to one twice daily if needed/tolerat ed. 60 tablet 1 07/27/[address] (PROTONIX) 40 mg EC tablet Take 40 mg by mouth 2 (two) times a day 2 pseudoephedrine (SUDAFED) 30 mg tabletIndications:N kassi Congestion Take 30 mg by mouth every 4 (four) hours as needed 9 rizatriptan (MAXALT) 10 mg tabletIndications:M igraine Take 10 mg by mouth once as needed 2 VAGIFEM 10 mcg tabletIndications:E ncounter for gynecological examination without abnormal finding Insert 1 tablet (10 mcg total) into the vagina 3 (three) times a week. 3 tablet 11 06/10/2018 9 documented as of this encounter Discharge Disposition Disposition Code Departure Means Destination Discharge to home or self care documented in this encounter Plan of Treatment Not on file documented as of this encounter Procedures Procedure Name Priority Date/Time Associated Diagnosis Comments SCREENING MAMMOGRAM BILATERAL W LEDA Schedule Routine, Read Routine (OP Routine) 09/07/2018 4:08 PM FIELD CANE SCALER Encounter for screening mammogram for malignant neoplasm of breast documented in this encounter Results * Screening Mammogram Bilateral W Leda (09/07/2018 4:08 PM FIELD CANE SCALER) Anatomical Region Laterality Modality Breast Bilateral Mammography Narrative 09/10/2018 12:37 PM FIELD CANE SCALER Mammogram Technique: Bilateral Digital Breast Tomosynthesis, Bilateral C-view 2D Screening mammogram. ??Views obtained: ??bilateral craniocaudal and bilateral mediolateral oblique. ??Computer Aided Detection was performed. Mammogram Findings: The present examination has been compared to prior imaging studies performed at [facility] on 05/05/2015, 05/07/2016 and 05/23/2017. There are scattered areas of fibroglandular density. There is no suspicious abnormality in either breast. Impression: Annual screening mammography is recommended. OVERALL FINAL ASSESSMENT: BI-RADS CATEGORY 1: ??Negative. Procedure Note Raiza Mcginnis MD - 09/10/2018 Mammogram Technique: Bilateral Digital Breast Tomosynthesis, Bilateral C-view 2D Screening mammogram. Views obtained: bilateral craniocaudal and bilateral mediolateral oblique. Computer Aided Detection was performed. Mammogram Findings: The present examination has been compared to prior imaging studies performed at [facility] on 05/05/2015, 05/07/2016 and 05/23/2017. There are scattered areas of fibroglandular density. There is no suspicious abnormality in either breast. Impression: Annual screening mammography is recommended. OVERALL FINAL ASSESSMENT: BI-RADS CATEGORY 1: Negative. Angy Avina MD IMG MAMMO PROCEDURES Final Result documented in this encounter Visit Diagnoses Diagnosis Encounter for screening mammogram for malignant neoplasm of breast documented in this encounter Care Teams Buffing Turner And Counter Relationship Specialty Start Date End Date Jonathan Amado MD PCP - General 03/18/17 documented as of this encounter
--- OUTSIDE RECORDS SUMMARY | 2024-10-17 03:15 | XMS_ITS | Encounter Summary ---
Author Organization [facility] Address [address] [place] [address] Phone Care Team Providers Care Phlebotomy Instructor Name Role Phone Jonathan Amaod MD Primary Care Provider [phone] Reason for Referral * Neurology (Routine) - Closed Specialty Diagnoses / Procedures Referred By Chidi sorensen Referred To Contact Diagnoses Myalgia Fatigue, unspecified type Procedures EMG/NCV -Procedure performed at: [facility] EMG Lab; Clinical Summary: Proximal weakness and ?Gottrons papules.; Reason for referral or diagnostic question: Query myositis; Ultrasound: As determined by examining physician; Please indicate choice of pr... Vickey Huitron MD PhD Phone: tel: fax: [facility] (All Locations) Referral ID Status Reason Start Date Expiration Date Visits Re quested Visits Authorized [id number] Closed 06/26/2018 01/05/2020 1 1 Reason for Visit * Reason Comments Memory Loss Migraine * Consultation (Routine) - Closed Specialty Diagnoses / Procedures Referred By Chidi sorensen Referred To Contact Neurology Diagnoses Memory loss Jonathan Amado MD Phone: tel: fax: Vickey Huitron MD PhD [id number] [address] Phone: tel: fax: Referral ID Status Reason Start Date Expiration Date V isits Requested Visits Authorized [id number] Closed Specialty Services Required 04/28/2018 11/07/2019 1 1 Encounter Details Date Type Department Care Team (Late st Contact Info) Description 06/26/2018 2:00 PM CDT Office Visit [facility] [address] [place] [address] 6th [address] [place] [phone] Vickey Huitron MD PhD [phone] [place] [address] Memory loss (Primary Dx); Myalgia; Fatigue, unspecified type Social History Tobacco Use Types Packs/Day Years Used Date Smoking Tobacco: Never Smokeless Tobacco: Never Alcohol Use Standard Drinks/Week Comments No 0 (1 standard drink = 0.6 oz pur e alcohol) Comments No Sex and Gender Information Value Date Recorded Sex Assigned at Not on file Legal Sex Female 9:51 AM SEC[employer]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 Gender Identity Not on file Sexual Orientation Not on file documented as of this encounter Last Filed Vital Signs Vital Sign Reading Time Taken Comments Blood Pressure 117/70 06/26/2018 1:36 PM CDT Pulse 69 06/26/2018 1:36 PM CDT Temperature - - Respiratory Rate - - Oxygen Saturation 96% 06/26/2018 1:36 PM CDT Inhaled Oxygen Concentration - - Weight 70.8 kg (156 lb) 06/26/2018 1:36 PM CDT Height 162.6 cm (5' 4 ) 06/26/2018 1:36 PM CDT Body Mass Index 26.78 06/26/2018 1:36 PM CDT documented in this encounter Patient Instructions * Patient Instructions* Vickey Huitron MD - 06/26/2018 2:00 PM CDT 1. Do not drive if too sleepy. 2. We will check blood work and EMG for myositis. 3. For cramps, magnesium (as director your PCP), B12 complex vitamins containing at least 60 mg of B6. documented in this encounter Progress Notes * Vickey Huitron MD - 06/26/2018 2:00 PM CDT Patient Name: PINA REYNAGA Medical Record Number (MRN): [id number] Date of (): 1970 Encounter Date: 06/26/2018 Chief Complaint A consult was requested by Dr. Amado for memory loss. HPI Ms. Pina Reynaga is a 48 y.o. woman with no significant past medical history presenting with memory loss and muscle pain. She originally referred for memory problems but is now having muscle pain. 1. Memory: she will forget things that she has recently done. She forgets why she walked into room.She does not repeat herself. No problems with the checkbook. She has not gotten lost while driving but has missed turns and similar types of events. She has fatigue. She gets migraines (since 6th grade). She gets migraines up to 1-3 times per week. She can go 1-2 weeks ago without them. Mood is ok. Her sleep is poor. She has plans for a sleep study. She has excessive daytime sleepiness. 2. Muscle pain. She has always had cramps. Recently it has gotten worse. It involves her legs, chest and back. Brushing her teeth will cause a tightening of facial muscles. She had an MRI of her leg which showed mild edea of the quadratus femoris. She is weak and has for 10 years she has had difficulty going up stairs and has tight quadriceps. She has difficulty lifting her arms over her head. She had an EMG in the past about 5 years ago. No weight loss. No B symptoms. She has developed rashes on both knees. She has had hair loss. She sometimes coughs when swallowing food. No rash on knuckles(she has not noticed it). No rash on eyelids. No weakness in her hands. Allergies Allergies Allergen Reactions ??? Ciprofloxacin Rash and Muscle pain ??? Doxycycline Rash and Unknown ??? Levofloxacin Rash ??? Sulfasalazine Rash Body aches ??? Iodinated Contrast- Oral And Iv Dye Unknown Sneezing, shortness of breath, body aches ??? Metrizamide Unknown ??? Morphine Unknown and Nausea And Vomiting ??? Compazine [Prochlorperazine] Other (See comments) and Anxiety ??? Unclassified Drug Cough Medications Current Outpatient Prescriptions: ??? Bifidobacterium infantis (ALIGN) 4 mg capsule, , Disp: , Rfl: ??? cetirizine (ZyrTEC) 10 mg tablet, , Disp: , Rfl: ??? EPINEPHrine 0.3 mg/0.3 mL auto-injection syringe, Inject 0.3 mg into the muscle as instructed.,Disp: , Rfl: ??? melatonin 10 mg capsule, Take 10 mg by mouth., Disp: , Rfl: ??? pantoprazole DR (PROTONIX) 40 mg EC tablet, Take 40 mg by mouth daily., Disp: , Rfl: ??? pseudoephedrine (SUDAFED) 30 mg tablet, Take 30 mg by mouth every 4 hours., Disp: , Rfl: ??? rizatriptan (MAXALT) 10 mg tablet, , Disp: , Rfl: ??? VAGIFEM 10 mcg tablet, Insert 1 tablet (10 mcg total) into the vagina 3 (three) times a week., Disp: 3 tablet, Rfl: 11 Patient Active Problem List Diagnosis ??? Allergic [...] ??? Myalgia ??? Mid back pain ??? Encounter for gynecological examination without abnormal finding ??? Dysuria ??? Chest pain ??? Memory loss ??? Fatigue Past Medical History: Diagnosis Date ??? Cervicalgia Neck pain - (Added by TW Conv) ??? Other specified enthesopathies of unspecified lower [...] sciatica - (Added by TW Conv) ??? Primary osteoarthritis of one knee Osteoarthritis, localized, knee - (Added by TW Conv) ??? Sacrococcygeal disorders, not elsewhere classified Coccyx pain - (Added by TW Conv) Past Surgical History: Procedure Laterality Date ??? BLADDER SURGERY Bladder Surgery - 2002 (Added by TW Conv) ??? LASIK Corneal LASIK Bilateral - (Added by TW Conv) ??? AR DILATION/CURETTAGE,DIAGNOSTIC Dilation And Curettage - (Added by TW Conv) ??? AR ERCP W/SPHINCTEROTOMY/PAPILLOTOMY ERCP With Endoscopic Sphincterotomy - (Added by TW Conv) ??? AR HYSTEROSCOPY,W/ENDO BX Hysteroscopy - (Added by TW Conv) ??? AR LAP,DIAGNOSTIC ABDOMEN Laparoscopy (Diagnostic) - 1998 (Added by TW Conv) ??? AR REMOVAL OF OVARIAN CYST(S) Ovarian Cystectomy - (Added by TW Conv) ??? AR REMOVAL OF OVARY(S) Oophorectomy - 1999 LEFT REMOVED 2010 RIGHT REMOVED (Added by TW Conv) ? ? AR REMOVAL OF TONSILS,<12 Y/O Tonsillectomy - (Added by TW Conv) ??? AR TOTAL ABDOM HYSTERECTOMY Hysterectomy - 2001 (Added by TW Conv) ??? SINUS SURGERY Sinus Surgery - (Added by TW Conv) Family History Problem Relation Age of Onset [...] - (Added by TW Conv) Social History Substance Use Topics ??? Smoking status: Never Smoker ??? Smokeless tobacco: Never Used ??? Alcohol use No Vital Signs Vitals: 06/26/18 1336 BP: 117/70 BP Location: Left arm Patient Position: Sitting Pulse: 69 SpO2: 96% Weight: 70.8 kg (156 lb) Height: 162.6 cm (5' 4 ) Review of Systems HENT: Negative. Eyes: Negative. Respiratory: Positive for cough. Cardiovascular: Negative. Gastrointestinal: Positive for abdominal pain. Endocrine: Positive for polyuria. Genitourinary: Negative. Musculoskeletal: Positive for arthralgias, back pain and joint swelling. Skin: Positive for rash. Allergic/Immunologic: Negative. Neurological: Positive for weakness, numbness and headaches. Except as Per HPI Hematological: Negative. Psychiatric/Behavioral: Positive for sleep disturbance. Physical Exam GENERAL EXAMINATION CONSTITUTIONAL: The patient is well appearing/well nourished, pleasant, comfortable and with appropriate mood. HEENT & NECK: The head is normocephalic and atraumatic. Conjunctiva are clear without injection; the oropharynx is clear. CARDIOVASCULAR: Extremities are warm and well perfused; there is no peripheral edema. SKIN: There are maculopapular rashes on the extensor surface of the MCP joints and proximal inter phalangeal joints. NEUROLOGIC EXAM: Mental Status: The patient is alert and oriented to person, place, time and reason for visit. Attention is intact.Recent and remote memory are normal. Fund of knowledge is age appropriate. Language: The patient has fluent speech and follows commands. Cranial Nerves II-XII: Visualized portions of the fundi reveals normal discs and vessels; visual leach are full. PERRL. Extraocular movements are full and without nystagmus. V1-3 is intact to light touch bilaterally. Faceis symmetric, hearing is intact bilaterally and palate is up-going bilaterally. Shoulder shrug is strong; tongue is midline and there is no dysarthria. Motor: Strength is 5/5 throughout except for 4+ at the deltoids and 4+ at the hip flexors bilaterally, though there is some back pain with hip flexion.. Muscle tone and bulk are normal. There is no pronatordrift. Finger tapping is normal bilaterally. Sensation: Light touch is normal in all four extremities. Coordination: Finger to nose is normal bilaterally. Ambulation: Gait is narrow-based with normal arm swing. Reflexes: Reflexes are 2+ at the biceps, brachioradialis and patellae. Absent Anthony. Eagle is 15 today. Assessment (R41.3) Memory loss (primary encounter diagnosis) Plan: , Vitamin B12, (M79.1) Myalgia Plan: EMG/NCV -Procedure performed at: [facility] EMG Lab; Clinical Summary: Proximal weakness and ?Gottrons papules.; Reason for referral or diagnostic question: Query myositis; Ultrasound: As determined by examining physician; Please indicate choice of pr..., Vitamin B12, Immunofixation, Myomarker panel 3, Methylmalonic acid, serum, Aldolase, Creatine kinase (CK), total, Erythrocyte sedimentation rate, : Vitamin B12, : Immunofixation, : Myomarker panel 3, : Methylmalonic acid, serum, : Aldolase, : Creatine kinase (CK), total, : Erythrocyte sedimentation rate (R53.83) Fatigue, unspecified type Plan: EMG/NCV -Procedure performed at: [facility] EMG Lab; Clinical Summary: Proximal weakness and ?Gottrons papules.; Reason for referral or diagnostic question: Query myositis; Ultrasound: As determined by examining physician; Please indicate choice of pr..., Vitamin B12,: Vitamin B12 MEDICAL RECORD REVIEW I personally reviewed referral records. CBC and CMP unremarkable. CK 265, FABIAN negative, CRP and ferritin wnl. MRI of her hips noted bilateral mild edema in the quadratus femoris muscle. MRI brain report was unremarkable. She scored a 23 on the [facility] Mental Status Exam. Pina Reynaga and I had a long discussion about her symptoms. With regard to her initial reason for referral I think her poor sleep has a significant impact on her memory and encouraged her toobtain a sleep study, as has already been suggested her. With regard to her sleep as well as her memory I am actually more concerned about her myalgias and weakness. She has a mildly elevated CK to 265, however she has proximal weakness and a violaceous rash on the extensor surfaces of her metacarpophalangeal joints and proximal interphalangeal joints. This is somewhat concerning for dermatomyositis however usually the CK is much higher in dermatomyositis; that being said this may be an early presentation of the disease. For her muscle cramps I encouraged magnesium as [facility] as well as B complex vitamins with at least 60 mg of vitamin B6. This would be the initial approach. I will check a Myomarker 3 panel to further explore the possibility of dermatomyositis as well as electrodiagnostics and if they are concerning I will plan to obtain a muscle b iopsy. I think she had a good understanding of what we discussed and all of her questions were answered. Plan 1. Do not drive if too sleepy. Follow-up on plans for sleep study locally. 2. We will check blood work and EMG for myositis. 3. For cramps, magnesium (as directed by your PCP), B complex vitamins containing at least 60 mg ofB6. I provided education about the above assessment and plan. Thank you for allowing me to participate in the care of your patient. If you have any questions, feel free to contact me at [phone]. Sincerely, Vickey Huitron MD, PhD [employer] [facility] in [place] Portions of this note were generated using voice recognition technology and may be subject to epic professional error. documented in this encounter Plan of Treatment Scheduled Orders Name Type Priority Associated Diagnoses Orde r Schedule EMG/NCV -Procedure performed at: [facility] EMG Lab; Clinical Summary: Proximal weakness and ?Gottrons papules.; Reason for referral or diagnostic question: Query myositis; Ultrasound: As determined by examining physician; Please indicate choice of pr... Neurology Routine Myalgia Fatigue, unspecified type 1 Occurrences starting 06/26/2018 until 06/26/2019 documented as of this encounter Results * Erythrocyte sedimentation rate (06/26/2018 4:50 PM CDT) Pathologist [facility] Erythrocyte sedimentation rate 4 1 - 20 mm/hr [facility] Blood specimen (specimen) 06/26/2018 4:50 PM CDT 06/26/2018 5:05 PM CDT Narrative [facility] - 06/26/2018 6:57 PM CDT us Vickey Huitron MD PhD LAB BLOOD ORD ERABLES Final Result [facility] Department [place] [address] * (ABNORMAL) Creatine kinase (CK), total (06/26/2018 4:50 PM CDT) [facility] CK 214(H) 30 - 200 Units/L [facility] Blood specimen (specimen) 06/26/2018 4:50 PM CDT 06/26/2018 5:05 PM CDT Narrative [facility] - 06/26/2018 5:52 PM CDT us Vickey Huitron MD PhD LAB BLOOD ORD ERABLES Final Result Performing Organization Address [facility]/ZIP Co de Phone Number [facility] [place] [address] * Aldolase (06/26/2018 4:50 PM CDT) [facility] Aldolase 6.6 0.1 - 8.0 Units/L [facility] Blood specimen (specimen) 06/26/2018 4:50 PM CDT 06/26/2018 5:05 PM CDT Narrative [facility] - 06/28/2018 10:15 AM CDT us Vickey Huitron MD PhD LAB BLOOD ORD ERABLES Final Result [facility] [place] [address] * Methylmalonic acid, serum (06/26/2018 4:50 PM CDT) MMA 0.17 <=0.40 nmol/mL [facility] Comment: ADDITIONAL INFORMATION This test was developed and its performance characteristics determined by [facility] in a manner consistent with CLIA requirements. This test has not been cleared or approved by the U.S. Food and Drug Administration. Test Performed by: [facility] - [address] [address] Blood specimen (specimen) 06/26/2018 4:50 PM CDT 06/26/2018 5:26 PM CDT Narrative [facility] - 07/01/2018 8:55 AM CDT us Vickey Huitron MD PhD LAB BLOOD ORD ERABLES Final Result [facility] [place] [address] * Myomarker panel 3 (06/26/2018 4:50 PM CDT) Anti-Graciela-1 ab <20 <20 Units [facility] Anti PL-7 ab Negative Negative [facility] Anti PL-12 ab Negative Negative [facility] Anti EJ ab Negative Negative [facility] Anti OJ ab Negative Negative [facility] Anti SRP ab Negative Negative [facility] Anti Mi-2 ab Negative Negative [facility] Polymyositis PM-SCL ab <20 <20 Units [facility] Fibrillarin U3 ab Negative Negative [facility] Anti U2 SN CHIP WASHER ab Negative Negative [facility] Anti U1RNP ab <20 <20 Units [facility] Anti KU ab Negative Negative [facility] P155/140 ab <20 <20 Units [facility] MDA-5 P140 ab <20 <20 Units [facility] NXP-2 P140 ab <20 <20 Units [facility] SSA52 KD ab IgG <20 <20 Units [facility] Comment: ADDITIONAL INFORMATION EIA Interpretation: ??Negative ? [...] investigational or for research. Test Performed by: [facility] [address] [facility] [place] [address] Blood specimen (specimen) 06/26/2018 4:50 PM CDT 06/26/2018 7:05 PM CDT Narrative [facility] - 07/10/2018 1:55 PM CDT Vickey Huitron MD PhD LAB BLOOD ORD ERABLES Final Result Performing Organization Address [facility] Co de Phone Number [facility] [place] [address] * Immunofixation (06/26/2018 4:50 PM CDT) Immunofixation No monoclonal protein detected. [facility] Blood specimen (specimen) 06/26/2018 4:50 PM CDT 06/26/2018 5:05 PM CDT Narrative [facility] - 06/30/2018 7:37 AM CDT Vickey Huitron MD PhD LAB BLOOD ORD ERABLES Final Result Performing Organization Address City/[facility]/ZIP Co de Phone Number [facility] [place] [address] * Vitamin B12 (06/26/2018 4:50 PM CDT) Vitamin B12 804 230 - 1,250 pg/mL [facility] Blood specimen (specimen) 06/26/2018 4:50 PM CDT 06/26/2018 5:05 PM CDT Narrative [facility] - 06/26/2018 6:35 PM CDT us Vickey Huitron MD PhD LAB BLOOD ORD ERABLES Final Result [facility] [place] [address] documented in this encounter Visit Diagnoses Diagnosis Memory loss- Primary Myalgia Unspecified myalgia and myositis Fatigue, unspecified type Memory loss Myalgia Unspecified myalgia and myositis Fatigue, unspecified type documented in this encounter Discontinued Medications Medication Sig Discontinue Reason Start Date End Da te tobramycin, bulk, 900 mcg/mg (not less than, ALF) powder Add 1 capsule of 20mg to 240ml saline (patient may mix own saline). Irrigate half in each nostril twice daily. 04/21/2018 06/26/2018 budesonide (PULMICORT) 0.5 mg/2 mL nebulizer solution Add 1 vial to 240ml saline (patient will mix own saline). Irrigate half in each nostril twice daily. 04/21/2018 06/26/2018 olopatadine (PAZEO) 0.7 % ophthalmic solutionIndications:Hakeem rgic Conjunctivitis Administer 1 drop into both eyes daily. 06/02/2018 06/26/2018 documented as of this encounter Historical Medications * This list may reflect changes made after this encounter. pantoprazole DR (PROTONIX) 40 mg EC tablet Take 40 mg by mouth 2 (two) times a day 07/17/2022 added in this encounter Orders Outpatient Referral Count Last Ordered Date Fir st Ordered Date AMB REFERRAL TO NEUROLOGY 1 06/26/2018 documented in this encounter Care Teams Phlebotomy Instructor Relationship Specialty Start Date End Date Jonathan Amado MD PCP - General 03/18/17 documented as of this encounter
--- OUTSIDE RECORDS SUMMARY | 2024-10-17 03:15 | XMS_ITS | Encounter Summary ---
Author Organization [facility] Healthcare Address [address] [place] [address] Care Team Providers Care Burglar Alarm Assembler Name Role Phone Jonathan Amado MD Primary Care Provider [phone] Encounter Details Date Type Department Care Team (Latest Contact Info) Description 04/21/2019 10:48 AM CDT - 04/21/2019 11:33 AM CDT Surgery [facility] [address] [place] [address] Jim Shelby MD [address] [facility] [address] [place] [address] ENDO ENDOSCOPIC RETROGRADE CHOLANGIOPANCREATOGRAPHY WITH REMOVAL FOREIGN BODY/STENT [GI511] Surgery Details Date/Time Status Location OR Service Patient Class Case Class Case Type Trauma Case? 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 Gender Identity Not on file Sexual Orientation Not on file documented as of this encounter Last Filed Vital Signs Vital Sign Reading Time Taken Comments Blood Pressure 127/87 04/21/2019 11:15 AM CDT Pulse 71 04/21/2019 11:15 AM CDT Temperature 36.4 ??C (97.5 ??F) 04/21/2019 8:05 AM CD T Respiratory Rate 18 04/21/2019 11:15 AM CDT Oxygen Saturation 98% 04/21/2019 11:15 AM CDT Inhaled Oxygen Concentration - - Weight 70.3 kg (155 lb) 04/19/2019 9:10 AM CDT Height 162.6 cm (5' 4 ) 04/19/2019 9:10 AM CDT Body Mass Index 26.61 04/19/2019 9:10 AM CDT documented in this encounter Discharge Summaries * Mami Mcgraw MD - 04/21/2019 12:00 AM CDT Discharge Diagnoses 1. Papillary stenosis. 2. Gastroesophageal reflux disease. 3. Migraine. 4. Chronic pain syndrome. Hospital Course This is a 49-year-old lady who came to us with a complaint of abdominal pain. Underwent ERCP, foundpapillary stenosis which was treated with biliary and pancreatic sphincterotomy and dual duct protective stenting. After the procedure, patient was treated with fentanyl VISUAL MERCHANDISE MANAGER, IV fluids, IV Zofran, IV Ativan, and also clear liquid diet. Patient had a repeat ERCP and stent removal done today. Now patient is doing much better. No complaint of abdominal pain so plan is to give her a low-fat diet; if she can tolerate low-fat diet, patient will be going home today. Discharge Medications Please see the medication reconciliation forms. General Physical Examination Patient examined at bedside, in no acute distress. Vitals: Temperature is 97.6, pulse 69, respirations 18, blood pressure is 123/82. Eyes, ENT Examination: Pupils equal, reactive to light. Head normocephalic. No signs of trauma. Neck: Supple. No JVD. No thyromegaly. No lymphadenopathy. Chest Examination: Clear clinically. CV Examination: S1, S2. Abdomen: Soft. Bowel sounds positive. ORDNANCE OFFICER: Patient is alert, awake, oriented x3. There is no gross focal neurological deficit. Extremities: There is no pedal edema. Plan Continue present medications, send the patient home, and follow up with Dr. Shelby's office in 6-8 weeks. Patient had been advised to follow the strict low-fat diet and to avoid alcohol and smoking. Job ID/VF Job ID: [id number] documented in this encounter Discharge Instructions * Attachments The following attachments cannot be sent through Care Everywhere. * ERCP (Endoscopic Retrograde Cholangiopancreatography) (Discharge Care) (British) * Hydrocodone/Acetaminophen (By mouth) (British) * Lorazepam (By mouth) (British) * Low Fat Diet (Discharge Care) (British) documented in this encounter Medications at Time [...] into the muscle as instructed. 12/19/2017 9 HYDROcodone-acetami nophen (NORCO) 5-325 mg per tabletIndications:P ain Take 1 tablet by mouth every 4 (four) hours as needed for pain 04/21/2019 9 LORazepam (ATIVAN) 1 mg tablet Take 1 tablet (1 mg total) by mouth 2 (two) times a day as needed for anxiety for up to 10 days 20 tablet 04/21/2019 9 magnesium U-mxplmv-lpiirgrdwu e 42 mg (500 mg)- 250 mg tablet extended release Take 250 mg by mouth. [address] (PROTONIX) 40 mg EC [...] 06/10/2018 9 documented as of this encounter Ordered Prescriptions Prescription Sig Dispense Quantity Refills Last Filled Start Date End Date HYDROcodone-acetam inophen (NORCO) 5-325 mg per tabletIndications: Pain Take 1 tablet by mouth every 4 (four) hours as needed for pain 04/21/2019 9 LORazepam (ATIVAN) 1 mg tablet Take 1 tablet (1 mg total) by mouth 2 (two) times a day as needed for anxiety for up to 10 days 20 tablet 04/21/2019 9 documented in this encounter Discharge Disposition Disposition Code Departure Means Destination Discharge to home or self care documented in this encounter Progress Notes * Elayne Colindres, MELODIE - 04/20/2019 1:39 PM CDT Gastroenterology Daily Progress SUBJECTIVE Chief complaint: Abd pain, nausea Interval History: 04/19 ERCP Complained of not liking fentanyl VISUAL MERCHANDISE MANAGER, turned off for now, managing pain better with ativan. Tolerating some clears. +flatus OBJECTIVE Vitals: Most Recent : Vitals: 04/20/19 1225 BP: 114/63 Pulse: 76 Resp: 20 Temp: 37.1 ??C (98.8 ??F) SpO2: 100% Physical Exam: General: Awake and alert Abdomen: Soft, ND, RUQ tenderness with palpation Lab/Radiology/Diagnostic Review: Recent Labs Lab Units 04/20/19 0626 WBC K/cumm 7.2 HEMOGLOBIN g/dL 13.3 HEMATOCRIT % 39.0 PLATELETS K/cumm 141* Recent Labs Lab Units 04/20/19 0626 SODIUM mmol/L 137 POTASSIUM PLASMA mmol/L 3.5 CHLORIDE mmol/L 106 CO2 mmol/L 21* ANIONGAP mmol/L 10 GLUCOSE mg/dL 134 BUN SERUM mg/dL 9 CREATININE mg/dL 0.67 CALCIUM mg/dL 8.1* ALBUMIN g/dL 3.6 ALK PHOS Units/L 50 ALT Units/L 16 AST Units/L 25 BILIRUBIN TOTAL mg/dL 1.1 Lab Results Component Value Date LIPASE 19 03/18/2017 DIAGNOSTIC STUDIES: 04/19 ERCP - Papillary stenosis treated with biliary and pancreatic sphincterotomies. - Morphologic changes of the pancreatic duct of unclear clinical significance. - Dual-duct protective stenting was performed to reduce risk/severity of potential procedure-associated complications. ASSESSMENT/PLAN: 1. Post elana abd pain Papillary Stenosis Hx of elana 2009, ERCP with PS 04/19 ERCP - as noted above -WBC and LFT's normal this am -clear liquids as tolerated -continue supportive care -npo after MN for stent removal tomorrow Elayne Colindres NP 04/20/2019 Cosigned by Jim Shelby MD at 04/21/2019 7:28 AM CDT Associated attestation - Jim Shelby MD - 04/21/2019 7:28 AM CDT I have seen and examined the patient on 04/20/2019. I agree with the findings and plan of care. * Mami Mcgraw MD - 04/20/2019 12:57 PM CDT Mami Mcgraw's Progress Note Admit Date:04/19/2019 Date of Note: 04/20/2019, 12:57 PM PCP: Jonathan Amado MD SUBJECTIVE: Chief complaint of abdominal pain Interval History: 49 years old lady with past medical history of gastroesophageal reflux disease, migraine, chronic pain syndrome underwent ERCP which showed papillary stenosis which was treated withbiliary and pancreatic sphincterotomy and dual duct protective stenting. Patient is complaining of paroxysmal right upper quadrant pain and nausea Review of Systems Constitutional: Negative. HENT: Negative. Eyes: Negative. Respiratory: Negative. Cardiovascular: Negative. Gastrointestinal: Positive for abdominal pain. Endocrine: Negative. Genitourinary: Negative. Musculoskeletal: Negative. Skin: Negative. Allergic/Immunologic: Negative. Neurological: Negative. Hematological: Negative. Psychiatric/Behavioral: Negative. Breast: Negative. OBJECTIVE: Vitals: 24hr Min/Max: Temp Min: 36.5 ??C (97.7 ??F) Max: 37.7 ??C (99.8 ??F) Pulse Min: 73 Max: 91 BP Min: 112/60 Max: 126/81 Resp Min: 16 Max: 20 SpO2 Min: 97 % Max: 100 % Most Recent : Vitals: 04/20/19 1225 BP: 114/63 Pulse: 76 Resp: 20 Temp: 37.1 ??C (98.8 ??F) SpO2: 100% I/O last 2 completed shifts: In: 2886 [I.V.:2886] Out: - I/O this shift: In: 1163 [P.O.:580; I.V.:583] Out: - Physical Exam: Physical Exam Constitutional: She is oriented to person, place, and time. She appears well- developed and well-nourished. No distress. HENT: Head: Normocephalic and atraumatic. Right Ear: External ear normal. Left Ear: External ear normal. Nose: Nose normal. Mouth/Throat: Oropharynx is clear and moist. No oropharyngeal exudate. Eyes: Pupils are equal, round, and reactive to light. Conjunctivae and EOM are normal. Right eye exhibits no discharge. Left eye exhibits no discharge. No scleral icterus. Neck: Normal range of motion. Neck supple. No JVD present. No tracheal deviation present. No thyromegaly present. Cardiovascular: Normal rate, regular rhythm, normal heart sounds and intact distal pulses. Pulmonary/Chest: Effort normal and breath sounds normal. No stridor. No respiratory distress. She has no wheezes. She has no rales. She exhibits no tenderness. Abdominal: Soft. Bowel sounds are normal. She exhibits no distension and no mass. There is tenderness. There is no rebound and no guarding. No hernia. Musculoskeletal: Normal range of motion. She exhibits no edema, tenderness or deformity. Lymphadenopathy: She has no cervical adenopathy. Neurological: She is alert and oriented to person, place, and time. She displays normal reflexes. No cranial nerve deficit or sensory deficit. She exhibits normal muscle tone. Coordination normal. Skin: Skin is warm and dry. Capillary refill takes less than 2 seconds. No rash noted. She is not diaphoretic. No erythema. No pallor. Psychiatric: She has a normal mood and affect. Her behavior is normal. Judgment and thought contentnormal. Nursing note and vitals reviewed. Current Medications Schedule Medications: Current Facility-Administered Medications: ??? acetaminophen (TYLENOL) tablet 650 mg, 650 mg, oral, Q4H PRN ??? benzocaine-menthol (CEPACOL) lozenge 1 lozenge, 1 lozenge, mouth/throat, Q2H PRN ??? Bifidobacterium infantis (ALIGN) capsule 4 mg, 4 mg, oral, Daily, 4 mg at 04/20/19954 ??? cetirizine (ZyrTEC) tablet 10 mg, 10 mg, oral, Daily, 10 mg at 04/20/19954 ??? cyanocobalamin (Vitamin B-12) tablet 1,000 mcg, 1,000 mcg, oral, Daily, 1,000 mcg at 04/20/19954 ??? famotidine (PEPCID) tablet 20 mg, 20 mg, oral, Q12H PRN ??? fentaNYL 2500 mcg/50 mL (50 mcg/mL) infusion (premix), , intravenous, Continuous ??? LORazepam (ATIVAN) injection 1 mg, 1 mg, intravenous, Q6H PRN, 1 mg at 04/20/19 1002 ??? magnesium oxide (MAG-OX) tablet 400 mg, 400 mg, oral, Daily, 400 mg at 04/20/19954 ??? naloxone (NARCAN) 0.4 mg/mL injection 0.04-0.4 mg, 0.04-0.4 mg, intravenous, Q10 Min PRN ??? niacin ER (NIASPAN) extended release capsule 250 mg, 250 mg, oral, Daily ??? ondansetron (ZOFRAN) injection 4 mg, 4 mg, intravenous, QID PRN ??? pantoprazole DR (PROTONIX) extended release tablet 40 mg, 40 mg, oral, BID, 40 mg at 07/09/19 0955 ??? rizatriptan VOLUNTEER FIREFIGHTER (MAXALT-VOLUNTEER FIREFIGHTER) disintegrating tablet 10 mg, 10 mg, oral, Q2H PRN ??? sodium chloride 0.9% infusion, 125 mL/hr, intravenous, Continuous, Last Rate: 125 mL/hr at 04/20/19456, 125 mL/hr at 04/20/19456 PRN Medications: ??? acetaminophen ??? benzocaine-menthol ??? famotidine ??? LORazepam ??? naloxone ??? ondansetron ??? rizatriptan VOLUNTEER FIREFIGHTER Lab/Radiology/Diagnostic Review: Laboratory review: Lab results in the last 24 hours: Recent Results (from the past 24 hour(s)) CBC with auto differential Collection Time: 04/20/19 6:26 AM Result Value Ref Range WBC 7.2 3.8 - 9.9 K/cumm Hgb 13.3 11.9 - 15.5 g/dL Hct 39.0 35.6 - 45.5 % Plt 141 (L) 150 - 400 K/cumm MPV 11.4 9.1 - 12.3 fL RBC 4.32 3.90 - 5.20 M/cumm MCV 90.3 81.3 - 96.4 fL MCH 30.8 27.1 - 33.3 pg MCHC 34.1 32.3 - 35.7 g/dL RDW CV 11.9 11.1 - 14.9 % RDW SD 39.3 35.7 - 48.1 fL NRBC Abs 0.00 0.00 - 0.01 K/cumm Comprehensive metabolic panel Collection Time: 04/20/19 6:26 AM Result Value Ref Range Sodium 137 135 - 145 mmol/L Potassium, pl 3.5 3.3 - 4.9 mmol/L Chloride 106 97 - 110 mmol/L CO2 21 (L) 22 - 32 mmol/L Anion Gap 10 2 - 15 mmol/L BUN 9 8 - 25 mg/dL Creatinine 0.67 0.60 - 1.10 mg/dL Glucose 134 70 - 199 mg/dL Calcium 8.1 (L) 8.5 - 10.3 mg/dL Bilirubin, total 1.1 0.1 - 1.2 mg/dL Protein, pl 5.2 (L) 6.5 - 8.5 g/dL Albumin 3.6 3.5 - 5.0 g/dL Alk phos 50 40 - 130 Units/L ALT 16 7 - 45 Units/L AST 25 10 - 45 Units/L Differential, auto Collection Time: 04/20/19 6:26 AM Result Value Ref Range Neutrophil absolute 5.8 1.7 - 6.5 K/cumm Immature granulocyte absolute 0.0 0.0 - 0.1 K/cumm Lymphocytes absolute 0.8 0.8 - 3.3 K/cumm Monocyte absolute 0.6 0.2 - 0.8 K/cumm Eosinophils absolute 0.0 0.0 - 0.5 K/cumm Basophils, abs 0.0 0.0 - 0.1 K/cumm Neutrophils 80.0 % Immature granulocytes 0.3 % Lymphocytes 10.8 % Monocytes 8.5 % Eosinophils 0.3 % Basophils 0.1 % eGFR Collection Time: 04/20/19 6:26 AM Result Value Ref Range GFR 104 mL/min/1.73 m2 Imaging review: I have reviewed the result(s): Fl Ercp Biliary And Pancreatic Result Date: 04/19/2019 Narrative: Examination: Endoscopic retrograde cholangiopancreatogram. HISTORY: 49-year-old female with postcholecystectomy abdominal pain. FINDINGS: 5 fluoroscopic images of the right upper quadrant during ERCP without prior for comparison. Cholecystectomy clips are present in the right upper quadrant. There is mild dilatation of the common bile duct and main pancreatic duct. Common bile duct andpancreatic duct stents are place. Impression: 1. Mild common bile duct and pancreatic duct dilatation status post stenting. Electronically signed by: Christina Newton M.D. Assessment and Plan: 1. 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 Plan will be to treat patient with fentanyl VISUAL MERCHANDISE MANAGER, IV fluids, IV Zofran, IV Ativan and also clear liquid diet. Patient will have a repeat ERCP and stent removal tomorrow. Will keep NPO after midnight 2. Gastroesophageal reflux disease. 3. History of migraine. 4. Chronic pain syndrome. 5. Additionally, will continue other home medications, supportive care, SCDs for DVT prophylaxis. Diet: Adult Diet Clear Liquid Code Status: Full Code Discharge disposition and Discussion: Discharge planning will be back to home once patient is stent has been removed and patient improvedsymptomatically Total time spent on direct patient care, Care Co-ordination, Counselling and documentation: 35 Minutes Mami Mcgraw MD [facility] Exchange: This note was transcribed using [employer] Speech Recognition software. As a result, there may be unintended grammar and spelling errors. Every attempt is made to have correct dictation. If there are any questions or major errors, please contact me. * Sejal Hope - 04/20/2019 11:58 AM CDT Initial Nutrition Assessment Reason for Assessment: Initial Nutrition Assessment Encounter Date: 04/20/19 11:58 AM Nutrition Evaluation: Patient is a 49 y.o. female. Admit Dx: R10.11 R11.0 K83.4/ESOPHAGOGASTRODUODENOSCOPY/ENDO ENDOSCOPIC RETROGRADE CHOLANGIOPANCREATOGRAPHY W/MANO. Admitted on 04/19/2019, current LOS is 0 days. Patient'sintake is inadequate. Nutrition Screen What diet do you follow at home?: regular Have You Recently Lost Weight Without Trying?: No Poor Oral Intake for Four or More Days Prior to Admission: No Objective Past Medical History: Diagnosis Date ??? [...] Bilateral - (Added by TW Conv) ??? [place] DILATION/CURETTAGE,DIAGNOSTIC Dilation And Curettage - (Added by TW Conv) ??? WI ERCP W/SPHINCTEROTOMY/PAPILLOTOMY ERCP With Endoscopic Sphincterotomy - (Added by TW Conv) ??? WI HYSTEROSCOPY,W/ENDO BX Hysteroscopy - (Added by TW Conv) ??? WI LAP,DIAGNOSTIC ABDOMEN Laparoscopy (Diagnostic) - 1998 (Added by TW Conv) ??? [place] REMOVAL OF OVARIAN CYST(S) Ovarian Cystectomy - (Added by TW Conv) ??? [place] REMOVAL OF OVARY(S) Oophorectomy - 1999 LEFT REMOVED 2011 RIGHT REMOVED (Added by TW Conv) ? ? [place] REMOVAL OF TONSILS,<12 Y/O Tonsillectomy - (Added by TW Conv) ??? [place] TOTAL ABDOM HYSTERECTOMY Hysterectomy - 2001 (Added by TW Conv) ??? SINUS SURGERY Sinus Surgery - (Added by TW Conv) ??? UPPER GASTROINTESTINAL ENDOSCOPY Anthropometrics Weight: 70.3 kg (155 lb) Admission Weight : 70.3 kg Weight Change: 0.45 kg (1.00 lbs) IBW/kg (Calculated) : 54.4 kg Height: 162.6 cm (5' 4 ) Weight in (lb) to have BMI = 25: 145.3 BMI (Calculated): 26.6 Intake/Output Summary (Last 24 hours) at 04/20/2019 1158 Last data filed at 04/20/2019 0950 Gross per 24 hour Intake 4049 ml Output -- Net 4049 ml Medications and Lab Review: Scheduled Meds: Bifidobacterium infantis 4 mg oral Daily cetirizine 10 mg oral Daily cyanocobalamin 1,000 mcg oral Daily magnesium oxide 400 mg oral Daily niacin ER 250 mg oral Daily pantoprazole DR 40 mg oral BID Continuous Infusions: fentaNYL sodium chloride 0.9% 125 mL/hr Last Rate: 125 mL/hr (04/20/19 0457) PRN Meds: ??? acetaminophen ??? benzocaine-menthol ??? famotidine ??? LORazepam ??? naloxone ??? ondansetron ??? rizatriptan VOLUNTEER FIREFIGHTER Sodium Date Value Ref Range Status 04/20/2019 137 135 - 145 mmol/L Final Potassium, pl Date Value Ref Range Status 04/20/2019 3.5 3.3 - 4.9 mmol/L Final BUN Date Value Ref Range Status 04/20/2019 9 8 - 25 mg/dL Final Creatinine Date Value Ref Range Status 04/20/2019 0.67 0.60 - 1.10 mg/dL Final Albumin Date Value Ref Range Status 04/20/2019 3.6 3.5 - 5.0 g/dL Final Calcium Date Value Ref Range Status 04/20/2019 8.1 (L) 8.5 - 10.3 mg/dL Final ALT Date Value Ref Range Status 04/20/2019 16 7 - 45 Units/L Final AST Date Value Ref Range Status 04/20/2019 25 10 - 45 Units/L Final Alk phos Date Value Ref Range Status 04/20/2019 50 40 - 130 Units/L Final No results found for: HGBA1C Nursing Assessment: Last BM Date: 04/18/19 Bowel Sounds (All Quadrants): Hypoactive Xavier Scale Score: 21 Dietary Orders (From admission, onward) Start Ordered 04/20/19 0500 Adult Diet Clear Liquid Effective tomorrow Question: ([facility]) Diet type Answer: Clear Liquid 04/19/19 1316 Nutrition Needs Calculations: Calculated Energy Needs Using Equations Weight: 70.3 kg (155 lb) Height: 162.6 cm (5' 4 ) Temp: 37.6 ??C (99.6 ??F) Estimated Protein Needs Type of Weight Used for Estimated Protein : Current Protein Needs Based on g/k.8 Total Protein Estimated Needs (gm): 56.25 Kcal/kg Type of Weight Used for Estimated Kcals: Current Kcal/k Total Kcal/kg Estimated Needs : 1757.7 Nutritional Needs and Diagnosis: Nutrition Diagnosis 1: Predicted suboptimal energy intake Related to: Clear liquid Evidenced by: Patient interview, Food aversion Impression: Meeting with pt for initial nutrition assessment. Pt with biliary and pancreatic sphinchterectomy with stent placement. Pt stated her appetite was good and hunger cues are normal. PO intake documented at 50%. Pt stated she was unable to finish breakfast this morning d/t abdominal cramping. Pt requested to omit coffee from diet order d/t nausea. Stated she is well educated on low fat diet d/t h/o cholesystectomy. Was receptive to further nutrition education. Provided pt with verbal nutrition education and handout on low fat diet. Will continue to monitor PO intake and diet tolerance. Plan: Monitor PO intake and diet tolerance, nutrition education Intervention and Monitoring: Goals: Oral intake to meet 75% estimated nutritional needs by next assessment Interventions: [place] diet preferences within the limits of nutrition care order Monitoring and Evaluation: Food preferences, I/O, Labs, Plan of care, PO intake JORGE Macedo Cosigned by Queta Cesar RD at 04/20/2019 1:45 PM CDT documented in this encounter H&P Notes * Jim Shelby MD - 04/19/2019 8:13 AM CDT The patient was referred for open access ERCP. The reason for the procedure is abd pain Social History Tobacco Use ??? Smoking status: [...] of breast - (Added by TW Conv) Ciprofloxacin; Doxycycline; Levofloxacin; Sulfasalazine; Iodinated contrast- oral and iv dye; Metrizamide; Morphine; Compazine [prochlorperazine]; and Unclassified drug Prior to Admission medications Medication Sig Start Date End Date Taking? Authorizing Provider Bifidobacterium infantis (ALIGN) 4 mg capsule Take 4 mg by mouth daily Historical Provider, cetirizine (ZyrTEC) 10 mg tablet Take 10 mg by mouth daily Historical Provider, cyanocobalamin, vitamin B-12, 1,000 mcg capsule Take 1,000 mcg by mouth. Historical Provider, EPINEPHrine 0.3 mg/0.3 mL auto-injection syringe Inject 0.3 mg into the muscle as instructed. 12/19/17 Historical Provider, magnesium K-lfjuek-tjujnqwtulu 42 mg (500 mg)- 250 mg tablet extended release Take 250 mg by mouth.Historical Provider, pantoprazole DR (PROTONIX) 40 mg EC tablet Take 40 mg by mouth 2 (two) times a day Historical Provider, pseudoephedrine (SUDAFED) 30 mg tablet Take 30 mg by mouth every 4 (four) hours as needed Historical Provider, rizatriptan (MAXALT) 10 mg tablet Take 10 mg by mouth once as needed Historical Provider, VAGIFEM 10 mcg tablet Insert 1 tablet (10 mcg total) into the vagina 3 (three) times a week. 06/10/18 Angy Avina MD Review of Systems Review of Systems Constitutional: Negative for chills and diaphoresis. HENT: Negative for tinnitus. Eyes: Negative for pain. Respiratory: Negative for chest tightness. Cardiovascular: Negative for chest pain. Gastrointestinal: Positive for abdominal pain and nausea. OBJECTIVE: Vitals: Arrival Vitals Temp Pulse Resp BP SpO2 Temp src Heart Rate Source Patient Position BP Location FiO2 (%) Most Recent : There were no vitals filed for this visit. Physical exam: Physical Exam Constitutional: She appears well-developed and well-nourished. HENT: Head: Normocephalic. Eyes: Pupils are equal, round, and reactive to light. EOM are normal. Cardiovascular: Normal rate. Pulmonary/Chest: Breath sounds normal. Abdominal: There is tenderness. Psychiatric: She has a normal mood and affect. The risks The aims, limitations, risks of potential complications of this procedure have been explained to the patient. Informed consent has been signed. * Mami Mcgraw MD - 04/19/2019 12:00 AM CDT Chief Complaint Abdominal pain. History of Present Illness This is a 49-year-old lady who had an ERCP done today for evaluation of abdominal pain. ERCP showedpapillary stenosis, which was treated with biliary and pancreatic sphincterotomy and dual-duct protective stenting. After the procedure, the patient was admitted to the hospital for monitoring of the symptoms. Pain and nausea are very common after this kind of procedure. When I saw the patient today, patient's pain level in a scale of 1-10 is around 7. Patient has been started on fentanyl VISUAL MERCHANDISE MANAGER. Allergies Cipro, doxycycline, levofloxacin, sulfasalazine, iodinated contrast, morphine, Compazine. Home Medications Include: 1. Align 4 mg daily. 2. Cetirizine 10 mg daily. 3. Vitamin B12 at 1000 mcg daily. 4. Magnesium 250 mg daily. 5. Protonix 40 mg daily. 6. Pseudoephedrine 30 mg as needed. 7. Rizatriptan 10 mg as needed. Past Medical History Positive for chronic cervical pain, multiple joint pains, gastroesophageal reflux disease, history of migraine. Family History Positive for breast cancer, hypertension, osteoporosis. Social History Does not smoke. Does not drink. Review of Systems Other than pain in the right upper quadrant area, patient denies any other complaint. Physical Exam Vitals: Temperature is 96.7, pulse 78, respirations 20, blood pressure 122/97. Eye, ENT: Exam shows pupils equal and reactive to light. Head normocephalic. No signs of trauma. Neck: Supple. No JVD. No thyromegaly. No lymphadenopathy. Chest: Examination is clear clinically. Cardiovascular: S1, S2. Abdomen: Bowel sounds positive. ORDNANCE OFFICER: Patient alert awake, oriented x3. There is no gross focal neurological deficit. Extremities: There is no pedal edema. Lab Pending. Assessment and Plan 1. 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 Plan will be to treat patient with fentanyl VISUAL MERCHANDISE MANAGER, IV fluids, IV Zofran, IV Ativan and also ice chips today, clear liquid from tomorrow. Patient will have a repeat ERCP and stent removal in 2-3days. 2. Gastroesophageal reflux disease. 3. History of migraine. 4. Chronic pain syndrome. 5. Additionally, will continue other home medications, supportive care, SCDs for DVT prophylaxis. Discharge Plan Will be back to home once patient's stent has been removed and patient improves symptomatically. Job ID/VF Job ID: [id number] documented in this encounter Procedure Notes * Jim Shelby MD - 04/21/2019 8:02 AM CDTAssociated Order(s): ERCP ENDOSCOPY LAB Patient Name: Pina Reynaga Procedure Date: 04/21/2019 8:02 AM Admit Type: Inpatient Room: [facility] Date of : 1970 Instrument Name: [id number] Gender: Female Note Status: Finalized Procedure: ERCP Indications: stent removal after wide biliary/pancreatic ES Providers: Jim Shelby M.D. Referring MD: Jonathan Amado MD Medicines: Propofol per Anesthesia Complications: No immediate complications. Estimated Blood Loss: Estimated blood loss: none. Procedure: The benefits, risks, and alternatives to the procedure and sedation were discussed and informed consent was obtained. The Enteroscope was introduced through the mouth, and used to inject contrast into and used to inject contrast into the bile duct and ventral pancreatic duct. Findings: One biliary stent was visible on the metal box maker film. The esophagus was successfully intubated under direct vision. The scope was advanced to the major papilla in the descending duodenum without detailed examination of the pharynx, larynx and associated structures, and upper GI tract. The upper GI tract was grossly normal. Inspection of the major papilla revealed that biliary and pancreatic sphincterotomies had been performed previously. Both appeared patent. One stents originating in the biliary tree was emerging from the major papilla and was removed with the snare. The ventral pancreatic duct was deeply cannulated with the ball tipped cannula. Contrast was injected. The main pancreatic duct remained dilated and the side branches remained narrowed and attenuated. The bile duct was deeply cannulated with the ball tipped cannula. Contrast was injected. The main bile duct remained dilated. The largest diameter was 8 mm. A cholecystectomy had been performed. There was prompt drainage of contrast from both systems and no evidence of strictures after removal of the protective stents. 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 - Excellent drainage is documented, the protective CBD stent has been removed, the pancreatic stent had migrated out spontaneously. - Mild morphologic changes of the pancreatic duct of unclear clinical significance. Recommendation: - Our procedures have little hope of sustained response without your contribution in terms of diet and weight management, as previously discussed. Start a fat-sensible diet using preferentially Holley 3-rich sources, healthier and in our experience more digestible. This category includes vegetarian fats (extra-virgin olive oil, avocado, nuts), wild salmon and leaner meats, preferably from free-range (richer in muscle protein) sources. Reduce refined carbohydrates and increase dietary fiber. - Avoid alcohol and tobacco at all costs. - Monitor total daily calorie intake and divide in multiple small meals (reduces digestive workload) and maintain exercise as a general measure of good health to reduce strain to other organ systems. - Symptom reduction will be progressive, not sudden. Nausea/discomfort during the next few weeks are common and not concerning. When they occur, reduce solid oral intake in favor of liquids. Medications to reduce such symptoms will be prescribed. Advance activity as tolerated and keep in mind that some of these medications might make you drowsy. - Return to our office in 6-8 weeks or earlier if needed (call for appointment), so that we can assess responses, address concerns and discharge you with final recommendations to your doctors. - Symptom improvement (frequency/intensity, partial/total) after restoring drainage is up to 65%-70% . Responses might involve any or all of the symptoms and is usually progressive over next 4-8 weeks. Alcohol/narcotics increase smooth muscle tone/contractions and should be avoided. Sphincterotomy is not a cure for underlying conditions leading to stenosis. Avoiding fat, tobacco/nicotine appears to help. Recurrent stenosis occurs in 30-35% of patients. Electronically signed by Jim Shelby MD Jim Shelby M.D. 04/21/2019 10:57:59 AM Number of Addenda: 0 Note Initiated On: 04/21/2019 8:02 AM * Jim Shelby MD - 04/19/2019 9:46 AM CDTAssociated Order(s): ERCP ENDOSCOPY LAB Patient Name: Pina Reynaga Procedure Date: 04/19/2019 9:46 AM Admit Type: Outpatient Room: [facility] Date of : 1970 Instrument Name: [id number] Gender: Female Note Status: Finalized Procedure: ERCP Indications: post-cholecystectomy abdominal pain, recurrent after previous HERBER in 2005 Providers: Jim Shelby M.D. Referring MD: Jonathan Amado MD Medicines: Propofol per Anesthesia Complications: No immediate complications. Estimated Blood Loss: Estimated blood loss: none. Procedure: The benefits, risks, and alternatives to the procedure and sedation were discussed and informed consent was obtained. The Enteroscope was introduced through the mouth, and used to inject contrast into and used to inject contrast into the bile duct and ventral pancreatic duct. Findings: EGD: A standard esophagogastroduodenoscopy scope was used for the examination of the upper gastrointestinal tract. The scope was passed under direct vision through the upper GI tract. The upper GI exam was and without abnormality. An antral biopsy was obtained to r/o H. Pylori. ERCP: The metal box maker film appeared essentially normal. The esophagus was successfully intubated under direct vision. The scope was advanced to the major papilla in the descending duodenum without detailed examination of the pharynx, larynx and associated structures, and upper GI tract. The upper GI tract was grossly normal. Inspection of the major papilla revealed that biliary and pancreatic sphincterotomies had been performed previously, both appearing patent. The bile duct was deeply cannulated with the short-nosed traction sphincterotome. Contrast was injected. The main bile duct was mildly dilated diffusely. The largest diameter was 8-9 mm. A cholecystectomy had been performed. The ventral pancreatic duct was deeply cannulated with the short-nosed traction sphincterotome. Contrast was injected. The main pancreatic duct remained dilated and the side branches appeared attenuated, rarified and in some areas irregular. The previous biliary sphincterotomy was extended of 4 more mm with a monofilament short-tip traction sphincterotome using pure cut current. There was no post-sphincterotomy bleeding. The previous ventral pancreatic sphincterotomy was extended of 3 more mm with a monofilament short-tip traction sphincterotome using pure cut current. There was no post-sphincterotomy bleeding. One 7 Fr by 3 cm pancreatic stent with a 3/4 external pigtail and a single internal flap was placed into the ventral pancreatic duct. Clear fluid flowed through the stent. The stent was in good position. One 10 mm by 60 mm expanding, covered, removable metallic biliary stent was placed intothe bile duct. Bile flowed through the stent, which was in good position. The biliary outlet was dilated with an 8 mm hurricane balloon. Impression: - Papillary stenosis treated with biliary and pancreatic sphincterotomies. - Morphologic changes of the pancreatic duct of unclear clinical significance. - Dual-duct protective stenting was performed to reduce risk/severity of potential procedure-associated complications. Recommendation: - Monitor symptoms and manage accordingly in the hospital. Pain and nausea are common sequelae after the internal incision and the presence of stents. The degree of severity varies in different people and usually improves gradually. - Remove the protective stents in 48-72 hours. Electronically signed by Jim Shelby MD Jim Shelby M.D. 04/19/2019 11:51:35 AM Number of Addenda: 0 Note Initiated On: 04/19/2019 9:46 AM documented in this encounter Consult Notes * Elayne Colindres NP - 04/19/2019 5:55 PM CDT Gastroenterology Consult SUBJECTIVE Chief complaint: abd pain, nausea HPI: The patient is a 49 year old female with complaints of abdominal pain, nausea and inability toeat. She reports the chu started several months ago and is located in the RUQ. She describes the pain as an ache and at time a cramping feeling which worsens with PO intake. She complains of severenausea which keeps her from eating. She denies vomiting, diarrhea, fever, chills, cp or sob. She iss/p cholecystectomy in 2003. Her GI history includes an EGD in March 2017 which revealed extensive duodenal ulcers with edema. Her repeat EGD in May 2017 showed that ulcers had healed. She had anotherEGD In August 2011 which was negative except for a small hiatal hernia which was seen again on her Oct 2017 EGD. She also has a history of ERCP in 2015 for papillary stenosis with short term protective stenting. She had a colonoscopy in 2018 which was normal. Her recent lab work included normal LFT's, LDH 276, elevated CK and FABIAN, and a normal ESR and CRP. She presents to the GI lab for repeat ERCP. Allergies Allergen Reactions ??? Ciprofloxacin Rash and Muscle pain ??? Doxycycline Rash and Unknown ??? Levofloxacin Rash ??? Sulfasalazine Rash Body aches ??? Iodinated Contrast- Oral And Iv Dye Unknown Sneezing, shortness of breath, body aches ??? Metrizamide Unknown ??? Morphine Unknown and Nausea And Vomiting ??? Compazine [Prochlorperazine] Other (See comments) and Anxiety ??? Unclassified Drug Cough Medications Prior to Admission Medication Sig Dispense Refill Last Dose ??? Bifidobacterium infantis (ALIGN) 4 mg capsule Take 4 mg by mouth daily 08/20/2018 at Unknown time ??? cetirizine (ZyrTEC) 10 mg tablet Take 10 mg by mouth daily Past Week at Unknown time ??? cyanocobalamin, vitamin B-12, 1,000 mcg capsule Take 1,000 mcg by mouth. Past Week at Unknown time ??? EPINEPHrine 0.3 mg/0.3 mL auto-injection syringe Inject 0.3 mg into the muscle as instructed. Taking ??? magnesium B-yxxwnw-acjybedotwc 42 mg (500 mg)- 250 mg tablet extended release Take 250 mg by mouth. Past Week at Unknown time ??? pantoprazole DR (PROTONIX) 40 mg EC tablet Take 40 mg by mouth 2 (two) times a day Past Month at Unknown time ??? pseudoephedrine (SUDAFED) 30 mg tablet Take 30 mg by mouth every 4 (four) hours as needed Past Month at Unknown time ??? rizatriptan (MAXALT) 10 mg tablet Take 10 mg by mouth once as needed Past Month at Unknown time ??? VAGIFEM 10 mcg tablet Insert 1 tablet (10 mcg total) into the vagina 3 (three) times a week. 3 tablet 11 Past Month at Unknown time PMH: PUD, [...] HPI OBJECTIVE Vitals: Most Recent : Vitals: 04/19/19 1747 BP: 113/68 Pulse: 85 Resp: Temp: 36.9 ??C (98.4 ??F) SpO2: 97% Physical Exam: General: awake and alert HEENT: face symmetric, no icterus/jaundice Neck: no bruits Lungs: CTA Cv: RRR Abd: soft, slight distension, +epigastric and RUQ pain with palpation Extr: no edema Lab/Radiology/Diagnostic Review: No results found for this or any previous visit (from the past 24 hour(s)). DIAGNOTIC STUDIES: 04/19 ERCP - Papillary stenosis treated with biliary and pancreatic sphincterotomies. - Morphologic changes of the pancreatic duct of unclear clinical significance. - Dual-duct protective stenting was performed to reduce risk/severity of potential procedure-associated complications. ASSESSMENT/PLAN 1. Post elana abd pain Papillary Stenosis Hx of elana 2009, ERCP with PS 04/19 ERCP - as noted above -supportive care, IVF's, pain medications, antiemetics -NPO with ice chips tonight, clears as tolerated tomorrow -will plan for stent removal in on friday Elayne Colindres NP 04/19/2019 Cosigned by Jim Shelby MD at 04/21/2019 7:29 AM CDT Associated attestation - Jim Shelby MD - 04/21/2019 7:29 AM CDT I have seen and examined the patient on 04/19/2019. I agree with the findings and plan of care. documented in this encounter Nursing Notes * Elise Lau RN - 04/21/2019 2:35 PM CDT Stable and safe since transfer back from GI Lab. Tolerated diet. Patient received discharge instructions, education, and prescription. Patient verbalized understanding. Patient discharging to home. * Elise Lau RN - 04/21/2019 11:40 AM CDT Received phone report from Leatha in the GI Lab. * Elise Lau RN - 04/21/2019 7:51 AM CDT Obtained consent from patient. Patient verbalized understanding of ERCP to have stents removed. documented in this encounter Miscellaneous Notes * Plan of Care - Shabbir Simms RN - 04/21/2019 3:55 AM CDT Problem: Health Behavior: Goal: Understanding of discharge needs will improve Outcome: Progressing Problem: Bowel/Gastric: Goal: Complications related to the disease process, condition or treatment will be avoided or minimized Outcome: Progressing Problem: Activity: Goal: Risk for activity intolerance will decrease Outcome: Progressing Problem: Lack of Knowledge: Goal: Ability to state and carry out methods to decrease the pain will improve Outcome: Progressing Problem: Nutritional: Goal: Nutritional status will be supported Outcome: Progressing Problem: Fluid Volume: Goal: Maintenance of adequate hydration will improve Outcome: Progressing Problem: Sensory: Goal: Ability to identify factors that increase the pain will improve Outcome: Progressing Goal: Ability to notify healthcare provider of pain before it becomes unmanageable or unbearable will improve Outcome: Progressing Goal: Pain level will decrease Outcome: Progressing Goals: Clinical Goals for the Shift: VSS, pain control adequate, tolerate clear liquids, npo after midnight, rest Summary: Patient s/p ERCP with stents on 04/19/19, possible stent pull today (04/21/19). 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 Possible DC to home today, 04/21/19. * Plan of Care - Elise Lau RN - 04/20/2019 5:11 PM CDT Goals: Clinical Goals for the Shift: Stable and safe throughout shift. Pain controlled. Tolerate diet. Activity as tolerable. Up to chair at least 3 times. Promote rest. Problem: Health Behavior: Goal: Understanding of discharge needs will improve Outcome: Progressing Problem: Bowel/Gastric: Description Module scope: 1. Patient population - adult 2. Intent - for use by staff nurses caring for patientsfor whom endoscopic retrograde cholangiopancreatography (ERCP) has been ordered 3. Condition - patients requiring ERCP 4. Site - inpatient This module is not intended to be all-inclusive and has beencreated for use by a wide variety of institutions with a multiplicity of available resources, patient populations, and specific needs. Goal: Complications related to the disease process, condition or treatment will be avoided or minimized Outcome: Progressing Problem: Activity: Goal: Risk for activity intolerance will decrease Outcome: Progressing Problem: Lack of Knowledge: Goal: Ability to state and carry out methods to decrease the pain will improve Outcome: Progressing Problem: Fluid Volume: Goal: Maintenance of adequate hydration will improve Outcome: Progressing Problem: Sensory: Goal: Ability to notify healthcare provider of pain before it becomes unmanageable or unbearable will improve Outcome: Progressing Goal: Pain level will decrease Outcome: Progressing Problem: Nutritional: Goal: Nutritional status will be supported Outcome: Not Progressing Problem: Sensory: Goal: Ability to identify factors that increase the pain will improve Outcome: Not Progressing Summary: Stable and safe throughout shift. Patient refused to use VISUAL MERCHANDISE MANAGER and only wanted Ativan for pain controlled, stating that the VISUAL MERCHANDISE MANAGER made her sick to her stomach. Pain controlled with Ativan and patient slept for the majority of the shift. Tolerating clears, but did state that her pain increased with intake. Patient's has been at bedside for the majority of the shift. Will continue withorders and to monitor patient. * Plan of Care - Ana Luisa Fernandes RN - 04/20/2019 4:26 PM CDT Spoke to pt who plans to discharge home with with no discharge needs. Will continue to reassess for discharge needs. * Plan of Care - Rubia Farooq RN - 04/20/2019 3:15 AM CDT Goals: Clinical Goals for the Shift: VSS, pain and nausea control, npo w/ ice, increased activity as tolerated, rest Problem: Health Behavior: Goal: Understanding of discharge needs will improve Outcome: Progressing Problem: Bowel/Gastric: Description Module scope: 1. Patient population - adult 2. Intent - for use by staff nurses caring for patientsfor whom endoscopic retrograde cholangiopancreatography (ERCP) has been ordered 3. Condition - patients requiring ERCP 4. Site - inpatient This module is not intended to be all-inclusive and has beencreated for use by a wide variety of institutions with a multiplicity of available resources, patient populations, and specific needs. Goal: Complications related to the disease process, condition or treatment will be avoided or minimized Outcome: Progressing Problem: Activity: Goal: Risk for activity intolerance will decrease Outcome: Progressing Problem: Lack of Knowledge: Goal: Ability to state and carry out methods to decrease the pain will improve Outcome: Progressing Problem: Nutritional: Goal: Nutritional status will be supported Outcome: Progressing Problem: Fluid Volume: Goal: Maintenance of adequate hydration will improve Outcome: Progressing Problem: Sensory: Goal: Ability to identify factors that increase the pain will improve Outcome: Progressing Goal: Ability to notify healthcare provider of pain before it becomes unmanageable or unbearable will improve Outcome: Progressing Goal: Pain level will decrease Outcome: Progressing Summary: VSS, 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, 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 nausea, advance to clears this am, slept almost entirety of shift * Plan of Care - Isaac Moyer RN - 04/19/2019 2:27 PM CDT Goals: Summary: documented in this encounter Plan of Treatment Pending Results Name Type Priority Associated Diagnoses Date /Time FL ERCP Endo Imaging Procedure IP Routine 12:57 PM CDT FL ERCP Endo Imaging Procedure IP Routine Abdominal pain 04/21/2019 11:42 AM CDT documented as of this encounter Procedures Procedure Name Priority Date/Time Associated Diagnosis Comments ERCP IP Routine 04/21/2019 11:42 AM CDT Abdominal pain ERCP IP Routine 04/21/2019 10:27 AM CDT Abdominal pain ERCP 04/21/2019 8:02 AM CDT AMYLASE Timed 04/20/2019 4:06 PM CDT EGFR Routine 04/20/2019 6:26 AM CDT DIFFERENTIAL AUTO Routine 04/20/2019 6:2 6 AM CDT CBC WITH AUTO DIFFERENTIAL Routine 04/20/2019 6:26 AM CDT COMPREHENSIVE METABOLIC PANEL Routine 04/20/2019 6:26 AM CDT ERCP IP Routine 04/19/2019 12:57 PM CDT ERCP IP Routine 04/19/2019 12:57 PM CDT ERCP IP Routine 04/19/2019 10:27 AM CDT Abdominal pain POCT H. PYLORI CLOTEST Routine 04/19/2019 10:25 AM CDT ERCP 04/19/2019 9:46 AM CDT documented in this encounter Results * FL ERCP Biliary and Pancreatic (04/21/2019 10:27 AM CDT) Anatomical Region Laterality Modality Body N/A Computed Radiogr aphy 04/21/2019 2:56 PM CDT Impressions 04/21/2019 2:57 PM CDT Good internal drainage of contrast from the pancreatic and biliary ducts following stent extraction. Electronically signed by: Grpuo Huang M.D. Narrative 04/21/2019 2:57 PM CDT EXAM: ??ERCP HISTORY: Follow-up sphincterotomy. COMPARISON: ??ERCP dated 04/19/2019. FINDINGS: Endoscopic catheterization of the pancreatic and bile ducts was performed by Dr. Shelby ??three images are presented for interpretation. The first image is a metal box maker radiograph which demonstrates pancreatic and biliary duct stents in place. Subsequent catheterization of the ducts after stent removal demonstrates good drainage of contrast from the pancreatic and bile ducts following stent extraction. Procedure Note Grupo Huang MD - 04/21/2019 EXAM: ERCP HISTORY: Follow-up sphincterotomy. COMPARISON: ERCP dated 04/19/2019. FINDINGS: Endoscopic catheterization of the pancreatic and bile ducts was performed by Dr. Shelby three images are presented for interpretation. The first image is a metal box maker radiograph which demonstrates pancreatic and biliary duct stents in place. Subsequent catheterization of the ducts after stent removal demonstrates good drainage of contrast from the pancreatic and bile ducts following stent extraction. IMPRESSION: Good internal drainage of contrast from the pancreatic and biliary ducts following stent extraction. Electronically signed by: Grupo Huang M.D. us Jim Shelby MD IMG FLUOROSCOPY PROCEDURES Final Result * ERCP (04/21/2019 8:02 AM CDT) Anatomical Region Laterality Modality Other Narrative Procedure Note Jim Shelby MD - 04/21/2019 8:02 AM CDT ENDOSCOPY LAB Patient Name: Pina Reynaga Procedure Date: 04/21/2019 8:02 AM Admit Type: Inpatient Room: [facility] Date of : 1970 Instrument Name: [id number] Gender: Female Note Status: Finalized Procedure: ERCP Indications: stent removal after wide biliary/pancreatic ES Providers: Jim Shelby M.D. Referring MD: Jonathan Amado MD Medicines: Propofol per Anesthesia Complications: No immediate complications. Estimated Blood Loss: Estimated blood loss: none. Procedure: The benefits, risks, and alternatives to the procedureand sedation were discussed and informed consent wasobtained. The Enteroscope was introduced through the mouth, andused to inject contrast into and used to inject contrastinto the bile duct and ventral pancreatic duct. Findings: One biliary stent was visible on the metal box maker film. The esophagus was successfully intubated under direct vision. The scope was advanced to the major papilla in the descending duodenum without detailed examination of the pharynx, larynx and associated structures, andupper GI tract. The upper GI tract was grossly normal. Inspection of themajor papilla revealed that biliary and pancreatic sphincterotomies hadbeen performed previously. Both appeared patent. One stents originating in the biliary tree was emerging from the major papilla and was removed with the snare. The ventral pancreatic duct was deeply cannulatedwith the ball tipped cannula. Contrast was injected. The main pancreaticduct remained dilated and the side branches remained narrowed andattenuated. The bile duct was deeply cannulated with the ball tipped cannula. Contrast was injected. The main bile duct remained dilated. Thelargest diameter was 8 mm. A cholecystectomy had been performed. There was prompt drainage of contrast from both systems and no evidence of strictures after removal of the protective stents. Impression: - Recurrent papillary stenosis has resolved afterrecent extension of the previous (2005) biliary/pancreatic sphincterotomies. - Excellent drainage is documented, the protective CBD stent has been removed, the pancreatic stent hadmigrated out spontaneously. - Mild morphologic changes of the pancreatic duct of unclear clinical significance. Recommendation: - Our procedures have little hope of sustained response without your contribution in terms of diet and weight management, as previously discussed. Start afat-sensible diet using preferentially Holley 3-rich sources,healthier and in our experience more digestible. This category includes vegetarian fats (extra-virgin olive oil,avocado, nuts), wild salmon and leaner meats, preferably from free-range (richer in muscle protein) sources. Reduce refined carbohydrates and increase dietary fiber. - Avoid alcohol and tobacco at all costs. - Monitor total daily calorie intake and divide in multiple small meals (reduces digestive workload) and maintain exercise as a general measure of good healthto reduce strain to other organ systems. - Symptom reduction will be progressive, not sudden. Nausea/discomfort during the next few weeks are commonand not concerning. When they occur, reduce solid oralintake in favor of liquids. Medications to reduce suchsymptoms will be prescribed. Advance activity as tolerated andkeep in mind that some of these medications might make you drowsy. - Return to our office in 6-8 weeks or earlier ifneeded (call for appointment), so that we can assessresponses, address concerns and discharge you with final recommendations to your doctors. - Symptom improvement (frequency/intensity,partial/total) after restoring drainage is up to 65%-70% . Responses might involve any or all of the symptoms and is usually progressive over next 4-8 weeks. Alcohol/narcotics increase smooth muscle tone/contractions and should be avoided. Sphincterotomy is not a cure for underlying conditions leading to stenosis. Avoiding fat, tobacco/nicotine appears to help. Recurrent stenosis occurs in 30-35% of patients. Electronically signed by Jim Shelby MD Jim Shelby M.D. 04/21/2019 10:57:59 AM Number of Addenda: 0 Note Initiated On: 04/21/2019 8:02 AM Jim Shelby MD ENDOSCOPY PROCEDURES Final Result * (ABNORMAL) Amylase (04/20/2019 4:06 PM CDT) Amylase 157(H) 30 - 99 Units/L [facility] Blood specimen (specimen) 04/20/2019 4:06 PM CDT 04/20/2019 4:42 PM CDT Jim Shelby MD LAB BLOOD ORDERABLES Final Result [facility] [address] Department of Laboratories [place], [place] [id number] * eGFR (04/20/2019 6:26 AM CDT) eGFR 104 mL/min/1.7 3 m2 [facility] Comment: Interpretive Data Reference Interval Normal ?>/= 90 mL/min/1.73m2 Mildly decreased* ? 60 - 89 mL/min/1.73m2 Mildly to moderately decreased ?45 - 59 mL/min/1.73m2 Moderately to severely decreased ??30 - 44 mL/min/1.73m2 Severely decreased ?15 - 29 mL/min/1.73m2 Kidney Failure ?< 15 ??mL/min/1.73m2 *Relative to young adult level If -Citizen Of [place] multiply value by 1.16. Estimated glomerular filtration [...] was last reviewed 2017. Blood specimen (specimen) 04/20/2019 6:26 AM CDT 04/20/2019 6:37 AM CDT us Jim Shelby MD LAB BLOOD ORDERABLES Final Result [facility] [address] Department [place] [address] * Differential, auto (04/20/2019 6:26 AM CDT) Neutrophil abs 5.8 1.7 - 6.5 K/cumm [facility] Imm gran abs 0.0 0.0 - 0.1 K/cumm [facility] Lymphocyte abs 0.8 0.8 - 3.3 K/cumm [facility] Monocyte abs 0.6 0.2 - 0.8 K/cumm [facility] Eosinophil abs 0.0 0.0 - 0.5 K/cumm [facility] Basophil abs 0.0 0.0 - 0.1 K/cumm [facility] Neutrophil pct 80.0 % [facility] Comment: Interpretive Data Percent cell count reference ranges are not reported, since discordance with absolute values may lead to misinterpretation of CBC data. Current Interpretive Data was last revised on 2018. Imm gran pct 0.3 % [facility] Comment: Interpretive Data Percent cell count reference ranges are not reported, since discordance with absolute values may lead to misinterpretation of CBC data. Current Interpretive Data was last revised on 2018. Lymphocyte pct 10.8 % [facility] Comment: Interpretive Data Percent cell count reference ranges are not reported, since discordance with absolute values may lead to misinterpretation of CBC data. Current Interpretive Data was last revised on 2018. Monocyte pct 8.5 % [facility] Comment: Interpretive Data Percent cell count reference ranges are not reported, since discordance with absolute values may lead to misinterpretation of CBC data. Current Interpretive Data was last revised on 2018. Eosinophil pct 0.3 % [facility] Comment: Interpretive Data Percent cell count reference ranges are not reported, since discordance with absolute values may lead to misinterpretation of CBC data. Current Interpretive Data was last revised on 2018. Basophil pct 0.1 % [facility] Comment: Interpretive Data Percent cell count reference ranges are not reported, since discordance with absolute values may lead to misinterpretation of CBC data. Current Interpretive Data was last revised on 2018. Blood specimen (specimen) 04/20/2019 6:26 AM CDT 04/20/2019 6:38 AM CDT Jim Shelby MD LAB BLOOD ORDERABLES Final Result [facility] [address] Department [place] [address] * (ABNORMAL) Comprehensive metabolic panel (04/20/2019 6:26 AM CDT) Sodium 137 135 - 145 mmol/L [facility] Potassium, pl 3.5 3.3 - 4.9 mmol/L [facility] Chloride 106 97 - 110 mmol/L [facility] CO2 21(L) 22 - 32 mmol/L [facility] Anion gap 10 2 - 15 mmol/L [facility] BUN 9 8 - 25 mg/dL [facility] Creatinine 0.67 0.60 - 1.10 mg/dL [facility] Glucose 134 70 - 199 mg/dL [facility] Comment: Interpretive Data Fasting glucose >/= 126 [...] interpretive data was last revised 2017. Calcium 8.1(L) 8.5 - 10.3 mg/dL [facility] Bilirubin, total 1.1 0.1 - 1.2 mg/dL [facility] Protein, pl 5.2(L) 6.5 - 8.5 g/dL [facility] Albumin 3.6 3.5 - 5.0 g/dL [facility] Alk phos 50 40 - 130 Units/L [facility] ALT 16 7 - 45 Units/L [facility] AST 25 10 - 45 Units/L [facility] Blood specimen (specimen) 04/20/2019 6:26 AM CDT 04/20/2019 6:37 AM CDT Jim Shelby MD LAB BLOOD ORDERABLES Final Result [facility] [address] Department [place] [address] * (ABNORMAL) CBC with auto differential (04/20/2019 6:26 AM CDT) WBC 7.2 3.8 - 9.9 K/cumm [facility] Hgb 13.3 11.9 - 15.5 g/dL [facility] Hct 39.0 35.6 - 45.5 % [facility] Plt 141(L) 150 - 400 K/cumm [facility] MPV 11.4 9.1 - 12.3 fL [facility] RBC 4.32 3.90 - 5.20 M/cumm [facility] MCV 90.3 81.3 - 96.4 fL [facility] MCH 30.8 27.1 - 33.3 pg [facility] MCHC 34.1 32.3 - 35.7 g/dL [facility] RDW CV 11.9 11.1 - 14.9 % [facility] RDW SD 39.3 35.7 - 48.1 fL [facility] NRBC abs 0.00 0.00 - 0.01 K/cumm [facility] Blood specimen (specimen) 04/20/2019 6:26 AM CDT 04/20/2019 6:38 AM CDT Jim Shelby MD LAB BLOOD ORDERABLES Final Result Performing Organization Address City/State/[facility] [place] Phone Number [facility] [address] Department [place] [address] * [place] ERCP Biliary and Pancreatic (04/19/2019 10:27 AM CDT) Anatomical Region Laterality Modality Body N/A Computed Radiogr aphy 04/19/2019 4:46 PM CDT Impressions 04/19/2019 4:48 PM CDT 1. ??Mild common bile duct and pancreatic duct dilatation status post stenting. Electronically signed by: Christina Newton M.D. Narrative 04/19/2019 4:48 PM CDT Examination: Endoscopic retrograde cholangiopancreatogram. HISTORY: 49-year-old female with postcholecystectomy abdominal pain. FINDINGS: 5 fluoroscopic images of the right upper quadrant during ERCP without prior for comparison. ??Cholecystectomy clips are present in the right upper quadrant. ??There is mild dilatation of the common bile duct and main pancreatic duct. ??Common bile duct and pancreatic duct stents are place. Procedure Note Christina Newton MD PhD - 04/19/2019 Examination: Endoscopic retrograde cholangiopancreatogram. HISTORY: 49-year-old female with postcholecystectomy abdominal pain. FINDINGS: 5 fluoroscopic images of the right upper quadrant during ERCP without prior for comparison. Cholecystectomy clips are present in the right upper quadrant. There is mild dilatation of the common bile duct and main pancreatic duct. Common bile duct and pancreatic duct stents are place. IMPRESSION: 1. Mild common bile duct and pancreatic duct dilatation status post stenting. Electronically signed by: Christina Newton M.D. Jim Shelby MD IMG FLUOROSCOPY PROCEDURES Final Result * POCT H. pylori (Clotest) (04/19/2019 10:25 AM CDT) H Pylori, POC Negative Negative QC Negative conf by Urease Yes Lot Number [id number] Biopsy 04/19/2019 10:2 5 AM CDT Jim Shelby MD POINT OF CARE TEST ORDERABL ES Final Result * ERCP (04/19/2019 9:46 AM CDT) Anatomical Region Laterality Modality Other Narrative Procedure Note Jim Shelby MD - 04/19/2019 9:46 AM CDT ENDOSCOPY LAB Patient Name: Pina Reynaga Procedure Date: 04/19/2019 9:46 AM Admit Type: Outpatient Room: [facility] Date of : 1970 Instrument Name: [id number] Gender: Female Note Status: Finalized Procedure: ERCP Indications: post-cholecystectomy abdominal pain, recurrent after previous HERBER in 2005 Providers: Jim Shelby M.D. Referring MD: Jonathan Amado MD Medicines: Propofol per Anesthesia Complications: No immediate complications. Estimated Blood Loss: Estimated blood loss: none. Procedure: The benefits, risks, and alternatives to the procedureand sedation were discussed and informed consent wasobtained. The Enteroscope was introduced through the mouth, andused to inject contrast into and used to inject contrastinto the bile duct and ventral pancreatic duct. Findings: EGD: A standard esophagogastroduodenoscopy scope was used for the examination of the upper gastrointestinal tract. The scope was passed under direct vision through the upper GI tract. The upper GI exam was and without abnormality. An antral biopsy was obtained to r/o H.Pylori. ERCP: The metal box maker film appeared essentially normal. The esophagus was successfully intubated under direct vision. The scope was advanced to the major papilla in the descending duodenum without detailed examination of the pharynx, larynx and associated structures, andupper GI tract. The upper GI tract was grossly normal. Inspection of themajor papilla revealed that biliary and pancreatic sphincterotomies hadbeen performed previously, both appearing patent. The bile duct was deeply cannulated with the short-nosed traction sphincterotome. Contrast was injected. The main bile duct was mildly dilated diffusely. Thelargest diameter was 8-9 mm. A cholecystectomy had been performed. Theventral pancreatic duct was deeply cannulated with the short-nosed traction sphincterotome. Contrast was injected. The main pancreatic ductremained dilated and the side branches appeared attenuated, rarified and insome areas irregular. The previous biliary sphincterotomy was extended of4 more mm with a monofilament short-tip traction sphincterotome usingpure cut current. There was no post-sphincterotomy bleeding. The previous ventral pancreatic sphincterotomy was extended of 3 more mm with a monofilament short-tip traction sphincterotome using pure cutcurrent. There was no post-sphincterotomy bleeding. One 7 Fr by 3 cmpancreatic stent with a 3/4 external pigtail and a single internal flap wasplaced into the ventral pancreatic duct. Clear fluid flowed through thestent. The stent was in good position. One 10 mm by 60 mm expanding,covered, removable metallic biliary stent was placed intothe bile duct. Bile flowed through the stent, which was in good position. The biliaryoutlet was dilated with an 8 mm hurricane balloon. 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 - Morphologic changes of the pancreatic duct of unclear clinical significance. - Dual-duct protective stenting was performed to reduce risk/severity of potential procedure-associated complications. Recommendation: - Monitor symptoms and manage accordingly in thehospital. Pain and nausea are common sequelae after the internal incision and the presence of stents. The degree of severity varies in different people and usuallyimproves gradually. - Remove the protective stents in 48-72 hours. Electronically signed by Jim Shelby MD Jim Shelby M.D. 04/19/2019 11:51:35 AM Number of Addenda: 0 Note Initiated On: 04/19/2019 9:46 AM Jim Shelby MD ENDOSCOPY PROCEDURES Final Result documented in this encounter Visit Diagnoses Diagnosis Abdominal pain- Primary Abdominal pain, unspecified site Abdominal pain Abdominal pain, unspecified site Abdominal pain Abdominal pain, unspecified site documented in this encounter Admitting Diagnoses Diagnosis Abdominal pain Abdominal pain, unspecified site documented in this encounter Administered Medications Inactive Administered Medications - up to 3 most recent administrations Medication Order MAR Action Action Date Dose Rate Site acetaminophen (TYLENOL) tablet 650 mg 650 mg, oral, Every 4 hours PRN, headaches, fever, Starting on 04/19/19 at 1316 Given 04/21/2019 6:27 AM CDT 650 mg ampicillin (OMNIPEN) 2,000 mg in sodium chloride 0.9% 100 mL IVPB 2,000 mg, intravenous, at 200 mL/hr, Administer over 30 Minutes, Once, On Fri04/19/19 at 0945, For 1 dose, Pre-Procedure (GI), If not allergic Mini-Bag Plus bag, Indications: ercpIndications:ercp New Bag 04/19/2019 9:20 AM CDT 2,000 mg 200 mL/hr Bifidobacterium infantis (ALIGN) capsule 4 mg 4 mg, oral, Daily, First dose on Fri04/19/19 at 1430 Given 04/21/2019 7:42 AM CDT 4 mg Given 04/20/2019 9:55 AM CDT 4 mg Given 04/19/2019 4:55 PM CDT 4 mg cetirizine (ZyrTEC) tablet 10 mg 10 mg, oral, Daily, First dose on Fri04/19/19 at 1430 Given 04/21/2019 7:42 AM CDT 10 mg Given 04/20/2019 9:55 AM CDT 10 mg Given 04/19/2019 4:54 PM CDT 10 mg cyanocobalamin (Vitamin B-12) tablet 1,000 mcg 1,000 mcg, oral, Daily, First dose on Fri04/19/19 at 1430 Given 04/21/2019 7:42 AM CDT 1,000 mcg Given 04/20/2019 9:55 AM CDT 1,000 mcg Given 04/19/2019 4:55 PM CDT 1,000 mcg fentaNYL (SUBLIMAZE) 50 mcg/mL preservative free injection - ADS Override Pull Starting on Fri04/19/19 at 1105, For 1 dose, GABRIELA CARLOS: cabinet override fentaNYL (SUBLIMAZE) preservative free injection 50 mcg 50 mcg, intravenous, Once, On Fri04/19/19 at 1145, For 1 dose, Phase I & Post-op Floor Given 04/19/2019 11:09 AM CDT 50 mcg fentaNYL 2500 mcg/50 mL (50 mcg/mL) infusion (premix) - ADS Override Pull Starting on Fri04/19/19 at 1135, For 1 dose, GABRIELA CARLOS: cabinet override fentaNYL 2500 mcg/50 mL (50 mcg/mL) infusion (premix) Continuous dose: None, VISUAL MERCHANDISE MANAGER dose: 15 mcg, VISUAL MERCHANDISE MANAGER lockout: 10 Minutes, 1 hour limit: 90 mcg, intravenous, Continuous, Starting on Fri04/19/19 at 1115, Until Fri04/21/19 at 0845, 50 mL, Indications: Pain, RoutineIndications:Pain Rate/Dose Verify 04/21/2019 6:32 AM CDT Rate/Dose Verify 04/19/2019 8:04 PM CDT New Bag 04/19/2019 11:54 AM CDT 2,500 mcg LORazepam (ATIVAN) injection 1 mg 1 mg, intravenous, Every 30 min PRN, Abdominal Spasm, Starting on Fri04/19/19 at 1042, For 3 doses, Recovery (GI), For IV administration, dilute with equal volume of 0.9% sodium chloride. Do not exceed a rate of 2 mg/minute Given 04/19/2019 11: 21 AM CDT 1 mg LORazepam (ATIVAN) injection 1 mg 1 mg, intravenous, Every 6 hours PRN, abdominal spasm, Starting on Fri04/19/19 at 1316, Hold for lethargy For IV administration, dilute with equal volume of 0.9% sodium chloride. Do not exceed a rate of 2 mg/minute Given 04/21/2019 6:28 AM CDT 1 mg Given 04/20/2019 10:01 PM CDT 1 mg Given 04/20/2019 4:05 PM CDT 1 mg magnesium oxide (MAG-OX) tablet 400 mg 400 mg, oral, Daily, First dose on Fri04/19/19 at 1430, 1 tablet = Magnesium oxide 400 mg = 241.3 mg elemental magnesium, Indications: hypomagnesemiaIndications:hypomagnesemia Given 04/21/2019 7:42 AM CDT 400 mg Given 04/20/2019 9:55 AM CDT 400 mg Given 04/19/2019 4:55 PM CDT 400 mg niacin ER (NIASPAN) extended release capsule 250 mg 250 mg, oral, Daily, First dose on Fri04/19/19 at 2100, Do not crush, chew, cut, dissolve, open or otherwise manipulate tablet/capsule. ondansetron (ZOFRAN) injection 4 mg 4 mg, intravenous, Administer over 2 Minutes, Every 30 min PRN, nausea, vomiting, Starting on Fri04/19/19 at 1042, Recovery (GI) Given 04/19/2019 12:11 PM CDT 4 mg ondansetron (ZOFRAN) injection 4 mg 4 mg, intravenous, Administer over 2 Minutes, 4 times daily PRN, nausea, vomiting, Starting on Fri04/19/19 at 1316 Given 04/21/2019 10:23 AM CDT [address] (PROTONIX) extended release tablet 40 mg 40 mg, oral, 2 times daily, First dose on Fri04/19/19 at 1430, Do not crush, chew, cut, dissolve, open or otherwise manipulate tablet/capsule., Indications: Treatment of Non-Bleeding Gastric DisorderIndications:Treatment of Non-Bleeding Gastric Disorder Given 04/21/2019 7:42 AM CDT 40 mg Given 04/20/2019 8:56 PM CDT 40 mg Given 04/20/2019 9:55 AM CDT 40 mg sodium chloride 0.9% flush 0.5-20 mL 0.5-20 mL, intra-catheter, Every 8 hours scheduled, First dose on Fri04/21/19 at 0815, Flush volume based on line type and size., Indications: FlushingIndications:Flushing sodium chloride 0.9% flush 0.5-20 mL 0.5-20 mL, intra-catheter, As needed, line care, Starting on Fri04/21/19 at 0727, Flush volume based on line type and size. Flush before and after each use., Indications: FlushingIndications:Flushing sodium chloride 0.9% infusion 30 mL/hr, intravenous, See admin instructions, Starting on Fri04/19/19 at 0903, For 3 hours, Pre-Op Rate/Dose Verify 04/19/2019 9:53 AM CDT New Bag 04/19/2019 9:20 AM CDT 30 mL/hr 30 mL/hr sodium chloride 0.9% infusion 125 mL/hr, intravenous, Continuous, Starting on Fri04/19/19 at 1400 New Bag 04/21/2019 6:22 AM CDT 125 mL/hr 125 mL/hr New Bag 04/20/2019 10:00 PM CDT 125 mL/hr 125 mL/hr New Bag 04/20/2019 1:46 PM CDT 125 mL/hr 125 mL/hr sodium chloride 0.9% infusion 30 mL/hr, intravenous, Continuous, Starting on Fri04/21/19 at 0915 New Bag 04/21/2019 8:38 AM CDT 30 mL/hr 30 mL/hr documented in this encounter Discontinued Medications Medication Sig Discontinue Reason Start Date End Da te OXcarbazepine (TRILEPTAL) 150 mg tablet Take one in the evening for one week. Increase to one twice daily if needed/tolerated. Therapy completed 07/27/2018 04/14/2019 documented as of this encounter Active and Recently Administered Medications Times are shown in CDT. Scheduled Medication Order 04/19/2019 04/20/2019 04/21/2019 ampicillin (OMNIPEN) 2,000 mg in sodium chloride 0.9% 100 mL IVPB (COMPLETED) 2,000 mg, intravenous, at 200 mL/hr, Administer over 30 Minutes, Once, On Fri04/19/19 at 0945, For 1 dose, Pre-Procedure (GI), If not allergic Mini-Bag Plus bag, Indications: ercp 0920 (New Bag - Provider: Marie Faulkner RN) Bifidobacterium infantis (ALIGN) capsule 4 mg 4 mg, oral, Daily, First dose on Fri04/19/19 at 1430 1655 (Given - Provider: Isaac Moyer RN) 0955 (Given - Provider: Elise Lau RN) 0742 (Given - Provider: Elise Lau, GYPSY)0834 (DEC Hold - Provider: Automatic Transfer Provider - Reason: Patient not available)1159 (DEC Unhold - Provider: Automatic Transfer Provider) cetirizine (ZyrTEC) tablet 10 mg 10 mg, oral, Daily, First dose on Fri04/19/19 at 1430 1654 (Given - Provider: Isaac Moyer RN) 0955 (Given - Provider: Elise Lau, GYPSY) 0742 (Given - Provider: Elise Lau, GYPSY)0834 (DEC Hold - Provider: Automatic Transfer Provider - Reason: Patient not available)1159 (DEC Unhold - Provider: Automatic Transfer Provider) cyanocobalamin (Vitamin B-12) tablet 1,000 mcg 1,000 mcg, oral, Daily, First dose on Fri04/19/19 at 1430 1655 (Given - Provider: Isaac Moyer RN) 0955 (Given - Provider: Elise Lau RN) 0742 (Given - Provider: Elise Lau, GYPSY)0834 (DEC Hold - Provider: Automatic Transfer Provider - Reason: Patient not available)1159 (DEC Unhold - Provider: Automatic Transfer Provider) fentaNYL (SUBLIMAZE) preservative free injection 50 mcg (COMPLETED) 50 mcg, intravenous, Once, On Fri04/19/19 at 1145, For 1 dose, Phase I & Post-op Floor 1109 (Given - Provider: Gabriela Carlos RN) gentamicin 80 mg/50 mL in sodium chloride (premix) 80 mg (COMPLETED) 80 mg, intravenous, at 100 mL/hr, Administer over 30 Minutes, Once, On Fri04/19/19 at 0945, For 1 dose, Pre-Procedure (GI), If not allergic, Indications: ercp 0953 (Given - Provider: Bruna Guerrero CRNA) magnesium oxide (MAG-OX) tablet 400 mg 400 mg, oral, Daily, First dose on Fri04/19/19 at 1430, 1 tablet = Magnesium oxide 400 mg = 241.3 mg elemental magnesium, Indications: hypomagnesemia 1655 (Given - Provider: Isaac Moyer RN) 0955 (Given - Provider: Elise Lau RN) 0742 (Given - Provider: Elise Lau, GYPSY)0834 (DEC Hold - Provider: Automatic Transfer Provider - Reason: Patient not available)1159 ([facility] Unhold - Provider: Automatic Transfer Provider) niacin ER (NIASPAN) extended release capsule 250 mg 250 mg, oral, Daily, First dose on Fri04/19/19 at 2100, Do not crush, chew, cut, dissolve, open or otherwise manipulate tablet/capsule. 2125 (Not Given - Provider: Rubia Farooq RN - Reason: Patient/family refused) 2055 (Not Given - Provider: Rubia Farooq RN - Reason: Patient/family refused) 0834 (DEC Hold - Provider: Automatic Transfer Provider - Reason: Patient not available)1159 ([facility] Unhold - Provider: Automatic Transfer Provider) pantoprazole DR (PROTONIX) extended release tablet 40 mg 40 mg, oral, 2 times daily, First dose on Fri04/19/19 at 1430, Do not crush, chew, cut, dissolve, open or otherwise manipulate tablet/capsule., Indications: Treatment of Non-Bleeding Gastric Disorder 1654 (Given - Provider: Isaac Moyer, GYPSY)2106 (Given - Provider: Rubia Farooq, RN) 0955 (Given - Provider: Elise Lau, GYPSY)2055 (Given - Provider: Rubia Farooq, GYPSY) 0742 (Given - Provider: Elise Lau, GYPSY)0834 (MAR Hold - Provider: Automatic Transfer Provider - Reason: Patient not available)1159 (MAR Unhold - Provider: Automatic Transfer Provider) sodium chloride 0.9% flush 0.5-20 mL(Linked Group 1) 0.5-20 mL, intra-catheter, Every 8 hours scheduled, First dose on Fri04/21/19 at 0815, Flush volume based on line type and size., Indications: Flushing 0751 (Not Given - Provider: Elise Lau RN - Reason: Other - Comment: Fluids infusing)1355 (Not Given - Provider: Elise Lua RN - Reason: Other - Comment: Patient discharging) sodium chloride 0.9% infusion (CANCELED) 30 mL/hr, intravenous, See admin instructions, Starting on Fri04/19/19 at 0903, For 3 hours, Pre-Op 0920 (New Bag - Provider: Marie Faulkner RN)0953 (Rate/Dose Verify - Provider: Bruna Guerrero CRNA) Continuous Medication Order 04/19/2019 04/20/2019 04/21/2019 fentaNYL 2500 mcg/50 mL (50 mcg/mL) infusion (premix) (CANCELED) Continuous dose: None, VISUAL MERCHANDISE MANAGER dose: 15 mcg, VISUAL MERCHANDISE MANAGER lockout: 10 Minutes, 1 hour limit: 90 mcg, intravenous, Continuous, Starting on Fri04/19/19 at 1115, Until Fri04/21/19 at 0845, 50 mL, Indications: Pain, Routine 1154 (New Bag - Provider: Gabriela Carlos, GYPSY)2004 (Rate/Dose Verify - Provider: Rubia Farooq, GYPSY) 0632 (Rate/Dose Verify - Provider: Shabbir Simms, RN)0854 (Stopped (Dual Sign) - Provider: Elise Lau, RN) sodium chloride 0.9% infusion (CANCELED) 125 mL/hr, intravenous, Continuous, Starting on Fri04/19/19 at 1400 1655 (New Bag - Provider: Isaac Moyer, RN)2108 (New Bag - Provider: Rubia Farooq, RN) 0457 (New Bag - Provider: Rubia Farooq, RN)1346 (New Bag - Provider: Elise Lau, RN)2200 (New Bag - Provider: Rubia Farooq, RN) 0622 (New Bag - Provider: Shabbir Simms RN) sodium chloride 0.9% infusion 30 mL/hr, intravenous, Continuous, Starting on Fri04/21/19 at 0915 0838 (New Bag - Provider: Gabriela Carlos, GYPSY)1028 (Anesthesia Volume Adjustment - Provider: Tiffani Lane CRNA)1120 (Stopped - Provider: Ritika Milligan, GYPSY) PRN Medication Order 04/19/2019 04/20/2019 04/21/2019 acetaminophen (TYLENOL) tablet 650 mg 650 mg, oral, Every 4 hours PRN, headaches, fever, Starting on Fri04/19/19 at 1316 0627 (Given - Provider: Shabbir Simms, GYPSY)0834 (DEC Hold - Provider: Automatic Transfer Provider - Reason: Patient not available)1159 (DEC Unhold - Provider: Automatic Transfer Provider) benzocaine-menthol (CEPACOL) lozenge 1 lozenge 1 lozenge, mouth/throat, Every 2 hours PRN, sore throat, Starting on Fri04/19/19 at 1316, Ok to have at bedside 0834 (DEC Hold - Provider: Automatic Transfer Provider - Reason: Patient not available)1159 (DEC Unhold - Provider: Automatic Transfer Provider) famotidine (PEPCID) tablet 20 mg 20 mg, oral, Every 12 hours PRN, indigestion, heartburn, Starting on Fri04/19/19 at 1316 0834 (DEC Hold - Provider: Automatic Transfer Provider - Reason: Patient not available)1159 (DEC Unhold - Provider: Automatic Transfer Provider) LORazepam (ATIVAN) injection 1 mg (CANCELED) 1 mg, intravenous, Every 30 min PRN, Abdominal Spasm, Starting on Fri04/19/19 at 1042, For 3 doses, Recovery (GI), For IV administration, dilute with equal volume of 0.9% sodium chloride. Do not exceed a rate of 2 mg/minute 1121 (Given - Provider: Gabriela Carlos, GYPSY) LORazepam (ATIVAN) injection 1 mg 1 mg, intravenous, Every 6 hours PRN, abdominal spasm, Starting on Fri04/19/19 at 1316, Hold for lethargy For IV administration, dilute with equal volume of 0.9% sodium chloride. Do not exceed a rate of 2 mg/minute 1733 (Given - Provider: Isaac Moyer, GYPSY) 1002 (Given - Provider: Elise Lau, RN)1605 (Given - Provider: Elise Lau, RN)2201 (Given - Provider: Rubia Farooq RN) 0628 (Given - Provider: Shabbir Simms, GYPSY)0834 ([facility] Hold - Provider: Automatic Transfer Provider - Reason: Patient not available)1159 ([facility] Unhold - Provider: Automatic Transfer Provider) ondansetron (ZOFRAN) injection 4 mg (CANCELED) 4 mg, intravenous, Administer over 2 Minutes, Every 30 min PRN, nausea, vomiting, Starting on Fri04/19/19 at 1042, Recovery (GI) 1206 (Due)1211 (Given - Provider: Gabriela Carlos, GYPSY) ondansetron (ZOFRAN) injection 4 mg 4 mg, intravenous, Administer over 2 Minutes, 4 times daily PRN, nausea, vomiting, Starting on Fri04/19/19 at 1316 0834 ([facility] Hold - Provider: Automatic Transfer Provider - Reason: Patient not available)1023 (Given - Provider: Tiffani Lane CRNA)1159 ([facility] Unhold - Provider: Automatic Transfer Provider) rizatriptan VOLUNTEER FIREFIGHTER (MAXALT-VOLUNTEER FIREFIGHTER) disintegrating tablet 10 mg 10 mg, oral, Every 2 hours PRN, migraine, Starting on Fri04/19/19 at 1352, Indications: Migraine 0834 ([facility] Hold - Provider: Automatic Transfer Provider - Reason: Patient not available)1159 ([facility] Unhold - Provider: Automatic Transfer Provider) sodium chloride 0.9% flush 0.5-20 mL(Linked Group 1) 0.5-20 mL, intra-catheter, As needed, line care, Starting on Fri04/21/19 at 0727, Flush volume based on line type and size. Flush before and after each use., Indications: Flushing Linked Groups Order Group 1: Saline lock IV (CANCELED) Routine, Once (Routine), On Fri04/21/19 at 0728, For 1 occurrence, manager chemical to GI lab And sodium chloride 0.9% flush 0.5-20 mLJump to med 0.5-20 mL, intra-catheter, Every 8 hours scheduled, First dose on Fri04/21/19 at 0815, Flush volume based on line type and size., Indications: Flushing And sodium chloride 0.9% flush 0.5-20 mLJump to med 0.5-20 mL, intra-catheter, As needed, line care, Starting on Fri04/21/19 at 0727, Flush volume based on line type and size. Flush before and after each use., Indications: Flushing documented in this encounter Orders Medications Ordered That Don ht Not Have Been Administered Count Last Ordered Date First Ordered Date sodium chloride 0.9% flush 0.5-20 mL 2 04/12 benzocaine-menthol (CEPACOL) lozenge 1 lozenge 1 04/19/2019 famotidine (PEPCID) tablet 20 mg 1 04/19/20 19 gentamicin 80 mg/50 mL in so dium chloride (premix) 80 mg 04/19/2019 Lactated Ringer's (LR) infusion 9 magnesium G-ljosfy-igfpyaren de 42 mg (500 mg)- 250 mg tablet extended release 250 mg 04/19/2019 naloxone (NARCAN) 0.4 mg/mL injection 0.04-0.4 mg 04/19/2019 niacin ER (NIASPAN) extended release capsule 250 mg 04/19/2019 ondansetron (ZOFRAN) injection 4 mg 04/19 rizatriptan VOLUNTEER FIREFIGHTER (MAXALT-VOLUNTEER FIREFIGHTER) disintegrating tablet 10 mg 1 04/19/2019 Diet Count Last Ordered Date First Orde red Date ADULT DISCHARGE DIET 1 04/21/2019 Nursing Count Last Ordered Date First Orde red Date DISCHARGE ACTIVITY 1 04/21/2019 FOLLOW UP WITH PROVIDER 1 04/21/2019 MAINTAIN IV ACCESS 1 04/21/2019 VERIFY INFORMED CONSENT 04/21/[address] SEQUENTIAL COMPRESSION DEVICE 1 04/19 Consult Count Last Ordered Date First Orde red Date IP CONSULT TO NUTRITION SERVICES 1 04/19/20 19 Admission Count Last Ordered Date First Orde red Date ASSIGN PATIENT STATUS 1 04/19/2019 Case Request Count Last Ordered Date First Orde red Date CASE REQUEST GI 1 04/21/2019 documented in this encounter Care Teams Burglar Alarm Assembler Relationship Specialty Start Date End Date Jonathan Amado MD PCP - General 03/18/17 documented as of this encounter
--- OUTSIDE RECORDS SUMMARY | 2024-10-17 03:15 | XMS_ITS | Encounter Summary ---
Author Organization [facility] Address [address] [place] [address] Phone Care Team Providers Care Patient Registration Representative Name Role Phone Jonathan Amado MD Primary Care Provider [phone] Reason for Referral * Diagnostic Imaging (Routine) - Closed Specialty Diagnoses / Procedures Referred By Contac t Referred To Contact Radiology Diagnoses Left hip pain Procedures MRI Hip Left WO Contrast Grupo Reese MD Phone: tel: fax: [address] [phone] Referral ID Status Reason Start Date Expiration Date Visits Re quested Visits Authorized [id number] Closed 06/01/2018 12/11/2019 1 1 * Diagnostic Imaging (Routine) - Closed Specialty Diagnoses / Procedures Referred By Contac t Referred To Contact Diagnoses Left hip pain Procedures X-ray hip left 2+ views Grupo Reese MD Phone: tel: fax: [address] [phone] Referral ID Status Reason Start Date Expiration Date Visits Re quested Visits Authorized [id number] Closed 06/01/2018 12/11/2019 1 1 Reason for Visit * Reason Comments Pain Pain Encounter Details Date Type Department Care Team (Late st Contact Info) Description 06/01/2018 3:45 PM CDT Office Visit [facility] [address] [place] [address] [place] [address] Grupo Reese MD [address] [facility] [address] [place] [address] Left hip pain (Primary Dx); Pain of left hip joint Social History Tobacco Use Types Packs/Day Years Used Date Smoking Tobacco: Never Smokeless Tobacco: Never Comments Unknown Sex and Gender Information Value Date Recorded Sex Assigned at Not on file 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 who presents in follow-up today for gradually worsening left hip pain. She states that approximately 1 year ago she started felt pain in her left hip and has gradually worsened. She has had episodes where she is unable to stand up from a sitting position or sit up from a lying position due to pain. The pain is worsened with any physical activity and improves withrest. The pain is sharp in nature and and at a pinpoint location. She endorses some radiating pain to her groin but this is only occasional. In addition, she endorses mild mid back pain that has brad constant issue. She denies any traumatic incident, numbness or tingling in the thigh or leg, or ur inary or fecal incontinence. The patient has a current medication list which includes the following prescription(s): budesonide (PULMICORT), epinephrine, tobramycin (bulk), bifidobacterium infantis (ALIGN), cetirizine (ZYRTEC), melatonin, pseudoephedrine (SUDAFED), and rizatriptan (MAXALT). ROS: She denies any traumatic incident, numbness, tingling or weakness in the thigh or leg, urinaryincontinence or fecal incontinence. PHYSICAL EXAMINATION GENERAL: In no acute distress. Well-developed and well nourished. PSYCHOLOGICAL: Alert and oriented. Cooperative, normal stated mood, congruent affect. HENT: Normocephalic, atraumatic. Hearing adequate for conversation. EYES: Non-icteric sclera. ABDOMEN: Soft, non-tender; no palpable masses. RESPIRATORY: Non-labored breathing. No audible cough or wheeze. CARDIOVASCULAR: No edema. Bilateral lower extremities are warm well perfused. SKIN: No rashes or open wounds involving bilateral lower extremities, hip, posterior torso. NEUROLOGIC: Strength: 5/5 bilaterally with hip flexion, knee extension, knee flexion, ankle dorsiflexion, ankleeversion, ankle inversion, ankle plantarflexion, and great toe extension. Sensation: intact light touch sensation throughout both lower extremities. Reflexes: intact and symmetric in bilateral lower extremities. MUSCULOSKELETAL: Inspection: Normal alignment of lumbar spine. No shift or scoliosis. Normal posture. Equal iliac crest heights. No pelvic asymmetry. Palpation: Exquisitely tender over the greater trochanter ROM: Active lumbar spine ROM is wnl. Passive right hip ROM is wnl. Passive left hip ROM is painful at approximate 45??. Special Tests: Left-sided Supine SLR: positive Logroll: Positive, FADIR: positive FABERE/Santi's: Mildly Positive Single-leg Squat: notable for dynamic knee valgus, femoral adduction, hip IR. Hip abductors: 4/5 strength on the affected side. REVIEW OF IMAGING / STUDIES: Two views of the left hip taken read today show well-maintained joint space. No evidence osteoarthritis. IMPRESSION / DIAGNOSIS: 48 y/o female with left hip pain. She has findings of left greater trochanteric bursitis. She also has provocative pain with hip flexion and internal rotation. Differential diagnosis would include issynovitis versus stress fracture Mid thoracic myofascial pain Chronic cervical myofascial pain TREATMENT / PLAN: 1. MRI left hip to evaluate for possible femoral neck stress fracture versus the right us. Considerpossible diagnostiic or therapeutic injection pending MRI results 2. Referral for PT and possible dry needling for her mid-back pain Orders Placed This Encounter Procedures ??? X-ray hip left 2+ views FOLLOW UP: We will contact her with her MRI results Grupo Reese MD [facility] of [facility] Medicine [facility] Portions of this note were dictated using [employer] speech recognition software. Please excuse any career services manager errors. documented in this encounter Plan of Treatment Not on file documented as of this encounter Results * MRI Hip Left WO Contrast (06/08/2018 4:42 PM CDT) Anatomical Region Laterality Modality Lower Extremities Left Magnetic Reson ance 06/09/2018 8:00 AM CDT Impressions 06/09/2018 8:00 AM CDT 1. ??Moderate bilateral greater trochanteric with gluteus medius tendinopathy. 2. ??Bilateral mild edema in the quadratus femoris muscles which can be seen with ischiofemoral impingement. Electronically signed by: John Kemp M.D. Narrative 06/09/2018 8:00 AM CDT EXAMINATION: Left hip MRI without contrast HISTORY: ??Left hip pain FINDINGS: Radiographs on 06/01/2018 are reviewed. MR examination of the left hip and pelvis is performed without contrast. ??Coronal short TR/TE and STIR images and transverse short TR/TE and fast spin echo images were obtained. The bone marrow signal in the visualized portion of the lumbar spine, pelvis and proximal femora are normal. ??There is no stress fracture, osteonecrosis or bone marrow replacing lesion. There is mild edema in the quadratus femoris muscles bilaterally. The puriform is muscles are normal and symmetric. ??The hamstring origins are normal. There is moderate bilateral greater trochanteric bursitis with mild gluteus medius tendinopathy bilaterally. ??The articular cartilage at the hips are normal. 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 The intrapelvic contents are normal. Procedure Note John Kemp MD - 06/09/2018 EXAMINATION: Left hip MRI without contrast HISTORY: Left hip pain FINDINGS: Radiographs on 06/01/2018 are reviewed. MR examination of the left hip and pelvis is performed without contrast. Coronal short TR/TE and STIR images and transverse short TR/TE and fast spin echo images were obtained. The bone marrow signal in the visualized portion of the lumbar spine, pelvis and proximal femora are normal. There is no stress fracture, osteonecrosis or bone marrow replacing lesion. There is mild edema in the quadratus femoris muscles bilaterally. The puriform is muscles are normal and symmetric. The hamstring origins are normal. There is moderate bilateral greater trochanteric bursitis with mild gluteus medius tendinopathy bilaterally. The articular cartilage at the hips are normal. 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 The intrapelvic contents are normal. IMPRESSION: 1. Moderate bilateral greater trochanteric with gluteus medius tendinopathy. 2. Bilateral mild edema in the quadratus femoris muscles which can be seen with ischiofemoral impingement. Electronically signed by: John Kemp M.D. Grupo Reese MD IMG MRI PROCEDURES Final Re sult * X-ray hip left 2+ views (06/01/2018 4:51 PM CDT) Anatomical Region Laterality Modality Lower Extremities, Hip, Pelvis Left C omputed Radiography 06/02/2018 6:23 AM CDT Impressions 06/02/2018 6:23 AM CDT 1. ??Unchanged pubic symphyseal osteoarthritis Electronically signed by: Sami Gray MD, PHD Narrative 06/02/2018 6:23 AM CDT EXAMINATION: Left hip unilateral with pelvis 2 or 3 views HISTORY: ??Left hip pain FINDINGS: 2 view examination of the pelvis and left hip are compared to radiographs from 04/28/2008. ??Both hip joint spaces appear normal and symmetric. ??Pubic symphyseal osteoarthritis is present. ??There is no acute fracture. ??There is heterotopic ossification adjacent to left greater trochanter. ??Sacroiliac joints appear normal. Procedure Note Sami Gray MD PhD - 06/02/2018 EXAMINATION: Left hip unilateral with pelvis 2 or 3 views HISTORY: Left hip pain FINDINGS: 2 view examination of the pelvis and left hip are compared to radiographs from 04/28/2008. Both hip joint spaces appear normal and symmetric. Pubic symphyseal osteoarthritis is present. There is no acute fracture. There is heterotopic ossification adjacent to left greater trochanter. Sacroiliac joints appear normal. IMPRESSION: 1. Unchanged pubic symphyseal osteoarthritis Electronically signed by: Sami Gray MD, PHD us Grupo Reese MD IMG XR PROCEDURES Final Res ult documented in this encounter Visit Diagnoses Diagnosis Left hip pain- Primary Pain in joint, pelvic region and thigh Pain of left hip joint Left hip pain Pain in joint, pelvic region and thigh Left hip pain Pain in joint, pelvic region and thigh documented in this encounter Historical Medications * This list may reflect changes made after this encounter. cetirizine (ZyrTEC) 10 mg tablet Take 1 tablet (10 mg total) by mouth daily tobramycin, bulk, 900 mcg/mg (not less than, FPC) powder Add 1 capsule of 20mg to 240ml saline (patient may mix own saline). Irrigate half in each nostril twice daily. 04/21/2018 06/26/2018 pseudoephedrine (SUDAFED) 30 mg tabletIndication s:Nasal Congestion Take 30 mg by mouth every 4 (four) hours as needed 05/05/2019 melatonin 10 mg capsule Take 10 mg by mouth. 08/21/2018 rizatriptan (MAXALT) 10 mg tabletIndication s:Migraine Take 10 mg by mouth once as needed 07/17/2022 EPINEPHrine 0.3 mg/0.3 mL auto-injection syringeIndicatio ns:Anaphylaxis Inject 0.3 mg into the muscle as instructed. 12/19/2017 05/28/2019 budesonide (PULMICORT) 0.5 mg/2 mL nebulizer solution Add 1 vial to 240ml saline (patient will mix own saline). Irrigate half in each nostril twice daily. 04/21/2018 06/26/2018 Bifidobacterium infantis (ALIGN) 4 mg capsule Take 4 mg by mouth daily 05/05/2019 added in this encounter Care Teams Patient Registration Representative Relationship Specialty Start Date End Date Jonathan Amado MD PCP - General 03/18/17 documented as of this encounter
--- OUTSIDE RECORDS SUMMARY | 2024-10-17 03:15 | XMS_ITS | Encounter Summary ---
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 08/21/2018 1:15 PM Posted [facility] ENDOSCOPY GI 09 Gastroenterology Outpatient Elective Panel 1 Procedure LRB Anes Op Region Wound Class Comments COLON BIOPSY Left Monitor Anesthesia Care Colon Class II - Clean Contaminated ESOPHAGOGASTRODUODENOSCOPY BIOPSY Left Monitor Anesthesia Care N/A Surgeon Surgeon Role Service Panel Jim Shelby [...] on file Legal Sex Female 9:51 AM CONCRETE TRUCK DRIVER Gender Identity Not on file Sexual Orientation Not on file documented as of this encounter Last Filed Vital Signs Vital Sign Reading Time Taken Comments Blood Pressure 107/80 08/21/2018 12:31 PM CONCRETE TRUCK DRIVER Pulse 73 08/21/2018 12:31 PM CONCRETE TRUCK DRIVER Temperature - - Respiratory Rate 18 08/21/2018 12:31 PM CONCRETE TRUCK DRIVER Oxygen Saturation 100% 08/21/2018 12:31 PM CONCRETE TRUCK DRIVER Inhaled Oxygen Concentration - - Weight 69.9 kg (154 lb) 08/21/2018 12:31 PM CONCRETE TRUCK DRIVER Height 162.6 cm (5' 4 ) 08/21/2018 12:31 PM CONCRETE TRUCK DRIVER Body Mass Index 26.43 08/21/2018 12:31 PM CONCRETE TRUCK DRIVER documented in this encounter Medications at Time [...] the muscle as instructed. 12/19/2017 9 magnesium L-hiqnvn-qhomtdxufg e 42 mg (500 mg)- 250 mg [...] or self care documented in this encounter H&P Notes * Jim Shelby MD - 08/21/2018 1:33 PM CST The patient was referred for open access colonoscopy for epigastric and lower quadrants abdominal pain, diarrhea Social History Substance Use Topics ??? Smoking status: Never Smoker ??? Smokeless tobacco: Never Used ??? Alcohol use No Family History Problem Relation Age of [...] Provider Bifidobacterium infantis (ALIGN) 4 mg capsule Yes Historical Provider, cetirizine (ZyrTEC) 10 mg tablet Yes Historical Provider, cyanocobalamin, vitamin B-12, 1,000 mcg capsule Take 1,000 mcg by mouth. Yes Historical Provider, magnesium V-imtqqn-ktvqoekgpru 42 mg (500 mg)- 250 mg tablet extended release Take 250 mg by mouth.Yes Historical Provider, pantoprazole DR (PROTONIX) 40 mg EC tablet Take 40 mg by mouth daily. Yes Historical Provider, pseudoephedrine (SUDAFED) 30 mg tablet Take 30 mg by mouth every 4 hours. Yes Historical Provider, rizatriptan (MAXALT) 10 mg tablet Yes Historical Provider, VAGIFEM 10 mcg tablet Insert 1 tablet (10 mcg total) into the vagina 3 (three) times a week. 06/10/18 Yes Angy Avina MD melatonin 10 mg capsule Take 10 mg by mouth. 08/21/18 Yes Historical Provider, EPINEPHrine 0.3 mg/0.3 mL auto-injection syringe Inject 0.3 mg into the muscle as instructed. 12/19/17 Historical Provider, OXcarbazepine (TRILEPTAL) 150 mg tablet Take one in the evening for one week. Increase to one twicedaily if needed/tolerated. 07/27/18 Vickey Huitron MD Review of Systems Constitutional: Negative for chills and diaphoresis. HENT: Negative for tinnitus. Eyes: Negative for pain. Respiratory: Negative for chest tightness. Cardiovascular: Negative for chest pain. Gastrointestinal: Positive for abdominal pain and nausea. OBJECTIVE: Vitals:BP 107/80 Pulse 73 Resp 18 Ht 162.6 cm (5' 4 ) Wt 69.9 kg (154 lb) SpO2 100% BMI26.43 kg/m?? Physical exam: Physical Exam Constitutional: She appears well-developed and well-nourished. HENT: Head: Normocephalic. Eyes: Pupils are equal, round, and reactive to light. EOM are normal. Cardiovascular: Normal rate. Pulmonary/Chest: Breath sounds normal. Abdominal: There is tenderness. Psychiatric: She has a normal mood and affect. The risks and complications of the procedure have been explained to the patient. Informed consent was signed. 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 Estimated Blood Loss: Estimated blood loss: none. Procedure: Pre-Anesthesia Assessment: - Pre-procedure physical examination revealed no contraindications to sedation. - The risks and benefits of the procedure and the sedation options and risks were discussed with the patient. All questions were answered and informed consent was obtained. The benefits, risks and alternatives of the procedure and sedation were discussed and informed consent was obtained. All questions were answered. Please refer to the signed informed consent document in the medical record. The colonoscopy was performed without difficulty. The patient tolerated the procedure well. The quality of the bowel preparation was excellent. The quality of the bowel preparation was evaluated using the BBPS ([place] Bowel Preparation Scale) with scores of: Right Colon = 3 (entire mucosa seen well with no residual staining, small fragments of stool or opaque liquid), Transverse Colon = 3 (entire mucosa seen well with no residual staining, small fragments of stool or opaque liquid) and Left Colon = 3 (entire mucosa seen well with no residual staining, small fragments of stool or opaque liquid). The total BBPS score equals 9. The bowel preparation used was SUPREP. Bowel prep was administered using a split dose. Bowel prep was administered using a split dose. The scope was passed under direct vision. The Colonoscope was introduced through the anus and advanced to the the terminal ileum. Findings: The colon (entire examined portion) appeared normal. Biopsies were taken with a cold forceps for histology. The terminal ileum appeared normal. Biopsies were taken with a cold forceps for histology. Impression: - Normal colon and terminal ileum. - District biopsies obtained. Recommendation: - Repeat colonoscopy at age 51 for screening purposes. Electronically signed by Jim Shelby MD Jim Shelby MD 08/21/2018 2:24:53 PM Number of Addenda: 0 Note Initiated On: 08/20/2018 3:07 PM RETE TRUCK DRIVER * Jim Shelby MD - 08/21/2018 1:41 PM CSTAssociated Order(s): EGD ENDOSCOPY LAB Patient Name: Pina Reynaga Procedure Date: 08/21/2018 1:41 PM Admit Type: Outpatient Room: [facility] Date of : 1970 Instrument Name: [id number] Gender: Female Note Status: Finalized Procedure: Upper GI endoscopy Indications: gastro-esophageal reflux disease with increasing hearburn Providers: Jim Shelby MD Referring MD: Jonathan Amado MD Medicines: Propofol per Anesthesia Complications: No immediate complications. Estimated Blood Loss: Estimated blood loss: none. Procedure: The benefits, risks, and alternatives to the procedure and sedation were discussed and informed consent was obtained. The scope was passed under direct vision. The Endoscope was introduced through the mouth, and advanced to the third part of duodenum. Findings: The esophagus was normal, beside persistence of a small (1.5 cm) hiatal hernia. The stomach was normal. A BETSY-test was obtained. The examined duodenum was normal. Biopsies for histology were taken with a cold forceps for evaluation of celiac disease. Impression: - Small hiatus hernia, otherwise normal EGD. - District biopsies obtained. Recommendation: - Await pathology results. - Consider testing for SIBO. - Increase PPI and consider adding TCA. - Consider recurrent SO stenosis. Electronically signed by Jim Shelby MD Jim Shelby MD 08/21/2018 2:19:24 PM Number of Addenda: 0 Note Initiated On: 08/21/2018 1:41 PM RETE TRUCK DRIVER RETE TRUCK DRIVER documented in this encounter Plan of Treatment Not on file documented as of this encounter Procedures Procedure Name Priority Date/Time Associated Diagnosis Comments COLONOSCOPY 08/21/2018 3:07 PM CONCRETE TRUCK DRIVER SURGICAL PATHOLOGY Routine 08/21/2018 2:10 PM CONCRETE TRUCK DRIVER Abdominal pain, unspecified abdominal location POCT H. PYLORI CLOTEST Routine 8 2:00 PM CONCRETE TRUCK DRIVER ESOPHAGOGASTRODUODENOSCOPY BIOPSY 08/21/2018 1:44 PM CONCRETE TRUCK DRIVER R19.7 R10.30 COLON BIOPSY 08/21/2018 1:44 PM CONCRETE TRUCK DRIVER R19.7 R10.30 EGD 08/21/2018 1:41 PM CONCRETE TRUCK DRIVER documented in this encounter Results * COLONOSCOPY (08/21/2018 3:07 PM CONCRETE TRUCK DRIVER) Anatomical Region Laterality Modality Other Narrative Procedure Note Jim Shelby MD - 08/21/2018 3:07 PM CST ENDOSCOPY LAB Patient Name: Pina Reynaga Procedure Date: 08/21/2018 3:07 PM Admit Type: Outpatient Room: [facility] 8 Date of : 1970 Instrument Name: [id number] [...] bowel preparation was evaluated using the BBPS ([place] Bowel Preparation Scale) with scores of: Right [...] Shelby MD ENDOSCOPY PROCEDURES Final Result * Surgical pathology (08/21/2018 2:10 PM CONCRETE TRUCK DRIVER) Tissue (Duodenum, Biopsy) 08/21/2018 1:54 PM CONCRETE TRUCK DRIVER Tissue (Colon, Biopsy) 08/21/2018 2:06 PM CONCRETE TRUCK DRIVER Tissue (Colon, Biopsy) 08/21/2018 2:10 PM CONCRETE TRUCK DRIVER Narrative PATHOLOGY [facility] - 08/22/2018 9:37 AM CONCRETE TRUCK DRIVER [address] ??[address] Tele: ?? Felicia Reid MD - Microsoft Developer ?? Reece Palacio - Gear Tester SURGICAL PATHOLOGY REPORT Patient Name: ??PINA REYNAGA Address: ??[address] [place] [address][birth year] Gender: ??F : ??1970 (Age: 48) Service: ??Gastro Location: ??G44, ?? Hospital #: ??[id number] Patient Type: ?? Same Day Surgery Accession #: ? [id number] Taken: ? 08/21/2018 Received ? 08/21/2018 Reported: ? 08/22/2018 Physician(s): ? Jim Shelby M.D. Jonathan Amado M.D. DIAGNOSIS: Duodenum-biopsy: ? - ??No histopathologic abnormality Ileum, terminal-biopsy: ? - ??No histopathologic abnormality Colon, random-biopsy: ? - ??No histopathologic abnormality b/08/22/2018 08:04 Examining Pathologist: Bola Gómez M.D. Report Reviewed and Electronically Signed By ??Bola Gómez M.D. SPECIMEN TYPE: A: DUODENUM B: TERMINAL ILEUM C: RANDOM COLON BX CLINICAL IMPRESSION AND HISTORY: Gastroesophageal reflux disease. ??The duodenal appeared normal. Abdominal pain the left lower quadrant. ??The entire colon appeared normal. ??The terminal ileum appears normal. GROSS DESCRIPTION: The tissue is received in three containers of formalin all labeled Pina Reynaga. Maximilian. ??The first container is additionally labeled duodenum and contains a 0.4 x 0.2 x 0.1 cm light burroughs tissue fragment. ??Due to the color and size of the specimen, hematoxylin is used. The specimen is filtered and submitted entirely in cassette A1. B. ??The second container is additionally labeled terminal ileum and contains a 0.3 x 0.2 x 0.1 cm light burroughs tissue fragment. ??Due to the color and size of the specimen, hematoxylin is used. The specimen is filtered and submitted entirely in cassette B1. C. ??The third container is additionally labeled random colon biopsy and contains a 0.2 x 0.2 x 0.1 cm light burroughs tissue fragment. ??Due to the color and size of the specimen, hematoxylin is used. The specimen is filtered and submitted entirely in cassette C1. [facility]/08/21/2018 16:47 ? [facility] MICROSCOPIC DESCRIPTION: Review of the part A material reveals variably oriented small bowel mucosa. ??The surface is intact and free of ulceration. ??No pathologic surface organisms are noted. ??Exocytosis of significant inflammatory cells into the epithelium is not evident. ??No granulomata are identified. ??No collections of foamy histiocytes are noted. ??No dilatation of the lacteal system is noted. ??No dysplastic or malignant changes are evident. Review of the part B material reveals variably oriented small bowel mucosa. ??The surface is intact and free of ulceration. ??No pathologic surface organisms are noted. ??Exocytosis of significant inflammatory cells into the epithelium is not evident. ??No granulomata are identified. ??No collections of foamy histiocytes are noted. ??No dilatation of the lacteal system is noted. ??No dysplastic or malignant changes are evident. ??Occasional small non-effacing lymphoid aggregate is noted. Review of the part C material reveals variably oriented colonic appearing mucosa. ??The surface is intact and free of ulceration. ??No overlying necroinflammatory membranes are noted. ??Exocytosis of significant inflammatory cells into the epithelium is not evident. ??The glands are tubular, straight, without branching or dropout. ??Mucin production is maintained. ??No dysplastic or malignant changes are noted. ??No granulomata are identified. ??Thickening of the basement membrane is not evident. Clerical Data Follows A; 87391 B; 95882 C; 74214 REPORT IMAGES AND/OR SCANNED DOCUMENTS ONLY VIEWABLE IN PDF FORMAT The immunohistochemical test(s) cited in this report, if any, was developed and its performance characteristics determined by [facility] Pathology Department. ??It has not been cleared or approved by the U.S. Food and Drug Administration. ??The FDA has determined that such clearance or approval is not necessary. ??This test is used for clinical purposes. ??It should not be regarded as investigational or for research. ??[facility] Laboratory is certified under the [...] MD LAB PATHOLOGY ORDERABLES Fi nal Result PATHOLOGY [facility] Laboratory Receiving [address] [place] [address] * POCT H. pylori (Clotest) (08/21/2018 2:00 PM CONCRETE TRUCK DRIVER) H Pylori, POC Negative Negative QC Negative conf by Urease Yes Lot Number [id number] Biopsy 08/21/2018 2:00 PM CONCRETE TRUCK DRIVER Jim Shelby MD POINT OF CARE TEST ORDERABL ES Final Result * EGD (08/21/2018 1:41 PM CONCRETE TRUCK DRIVER) Anatomical Region Laterality Modality Other Narrative Procedure Note Jim Shelby MD - 08/21/2018 1:41 PM CST ENDOSCOPY LAB Patient Name: Pina Reynaga Procedure Date: 08/21/2018 1:41 PM Admit Type: Outpatient Room: [facility] Date of : 1970 Instrument Name: [id number] Gender: Female Note Status: Finalized Procedure: Upper GI endoscopy Indications: gastro-esophageal reflux disease with increasinghearburn Providers: Jim Shelby MD Referring MD: Jonathan Amado MD Medicines: Propofol per Anesthesia Complications: No immediate complications. Estimated Blood Loss: Estimated blood loss: none. Procedure: The benefits, risks, and alternatives to the procedureand sedation were discussed and informed consent wasobtained. The scope was passed under direct vision. The Endoscope was introduced through the mouth, and advanced to the third part of duodenum. Findings: The esophagus was normal, beside persistence of a small (1.5 cm)hiatal hernia. The stomach was normal. A BETSY-test was obtained. The examined duodenum was normal. Biopsies for histology were takenwith a cold forceps for evaluation of celiac disease. Impression: - Small hiatus hernia, otherwise normal EGD. - District biopsies obtained. Recommendation: - Await pathology results. - Consider testing for SIBO. - Increase PPI and consider adding TCA. - Consider recurrent SO stenosis. Electronically signed by Jim Shelby MD Jim Shelby MD 08/21/2018 2:19:24 PM Number of Addenda: 0 Note Initiated On: 08/21/2018 1:41 PM Jim Shelby MD ENDOSCOPY PROCEDURES Edited Result - Final documented in this encounter Visit Diagnoses Not on filedocumented in this encounter Administered Medications Inactive Administered Medications - up to 3 most recent administrations Medication Order MAR Action Action Date Dose Rate Site sodium chloride 0.9% infusion 30 mL/hr, intravenous, Continuous, Starting on Fri08/21/18 at 1315 New Bag 08/21/2018 12:36 PM CONCRETE TRUCK DRIVER 30 mL/hr 30 mL/hr documented in this encounter Discontinued Medications Medication Sig Discontinue Reason Start Date End Da te melatonin 10 mg capsule Take 10 mg by mouth. Other 08/21/2018 documented as of this encounter Active and Recently Administered Medications Times are shown in CONCRETE TRUCK DRIVER. Continuous Medication Order 08/19/2018 08/20/2018 08/21/2018 sodium chloride 0.9% infusion 30 mL/hr, intravenous, Continuous, Starting on Fri08/21/18 at 1315 1236 (New Bag - Prov ider: Soledad Velazquez RN)1410 (Anesthesia Volume Adjustment - Provider: Pina Ellis CRNA)1435 (Stopped - Provider: Sudha Sharp, GYPSY) documented in this encounter Care Teams Aniline Press Worker Relationship Specialty Start Date End Date Jonathan Amado MD PCP - General 03/18/17 documented as of this encounter
--- OUTSIDE RECORDS SUMMARY | 2024-10-17 03:15 | XMS_ITS | Encounter Summary ---
Author Organization [facility] Healthcare Address [address] [place] [address] Care Team Providers Care All Around Presser Name Role Phone Jonathan Amado MD Primary Care Provider [phone] Encounter Details Date Type Department Care Team (Latest Contact Info) Description 04/19/2019 10:00 AM CDT - 04/19/2019 10:45 AM CDT Surgery [facility] [address] [place] [address] Jim Shelby MD [address] [facility] [address] [place] [address] ESOPHAGOGASTRODUODENOSCOPY BIOPSY Surgery Details Date/Time Status Location OR Service Patient Class Case Class Case Type Trauma Case? 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 Abdomen: Soft. Bowel sounds positive. CABLE LAYER: Patient is alert, awake, oriented x3. There is no gross focal neurological deficit. Extremities: There is no pedal edema. Plan Continue present medications, send the patient home, and follow up with Dr. Shelby's office in 6-8 weeks. Patient had been advised to follow the strict low-fat diet and to avoid alcohol and smoking. Job ID/VF Job ID: [id number] documented in this encounter Discharge Instructions * Attachments The following attachments cannot be sent through Care Everywhere. * ERCP (Endoscopic Retrograde Cholangiopancreatography) (Discharge Care) (Lebanese) * Hydrocodone/Acetaminophen (By mouth) (Lebanese) * Lorazepam (By mouth) (Lebanese) * Low Fat Diet (Discharge Care) (Lebanese) documented in this encounter Medications at Time [...] 10 days 20 tablet 04/21/2019 9 magnesium M-izyzta-saspsutxpq e 42 mg (500 mg)- 250 mg [...] in this encounter Progress Notes * Elayne Colindres NP - 04/20/2019 1:39 PM CDT Gastroenterology Daily Progress SUBJECTIVE Chief complaint: Abd pain, nausea Interval History: 04/19 ERCP Complained of not liking fentanyl MEAT MARKET MANAGER, turned off for now, managing pain [...] Elayne Colindres NP 04/20/2019 Cosigned by Jim Shebly MD at 04/21/2019 7:28 AM CDT Associated [...] 40 mg, oral, BID, 40 mg at 04/20/19 0955 ??? rizatriptan SIGNAL PERSON (MAXALT-SIGNAL PERSON) disintegrating tablet 10 mg, 10 mg, oral, Q2H PRN ??? sodium chloride 0.9% infusion, 125 mL/hr, intravenous, Continuous, Last Rate: 125 mL/hr at 04/20/19 0457, 125 mL/hr at 04/20/19 045 PRN Medications: ??? acetaminophen ??? benzocaine-menthol ??? famotidine ??? LORazepam ??? naloxone ??? ondansetron ??? rizatriptan SIGNAL PERSON Lab/Radiology/Diagnostic Review: Laboratory review: Lab results in [...] will be to treat patient with fentanyl MEAT MARKET MANAGER, IV fluids, IV Zofran, IV Ativan [...] and documentation: 35 Minutes Mami Mcgraw MD [facility] Exchange: This note was transcribed using TrackBill Speech Recognition software. As a result, there [...] Bilateral - (Added by TW Conv) ??? DC DILATION/CURETTAGE,DIAGNOSTIC Dilation And Curettage - (Added by TW Conv) ??? DC ERCP W/SPHINCTEROTOMY/PAPILLOTOMY ERCP With Endoscopic Sphincterotomy - (Added by TW Conv) ??? DC HYSTEROSCOPY,W/ENDO BX Hysteroscopy - (Added by TW Conv) ??? DC LAP,DIAGNOSTIC ABDOMEN Laparoscopy (Diagnostic) - 1998 (Added by TW Conv) ??? DC REMOVAL OF OVARIAN CYST(S) Ovarian Cystectomy - (Added by TW Conv) ??? DC REMOVAL OF OVARY(S) Oophorectomy - 1999 LEFT REMOVED 2011 RIGHT REMOVED (Added by TW Conv) ? ? DC REMOVAL OF TONSILS,<12 Y/O Tonsillectomy - (Added by TW Conv) ??? DC TOTAL ABDOM HYSTERECTOMY Hysterectomy - 2001 (Added [...] LORazepam ??? naloxone ??? ondansetron ??? rizatriptan SIGNAL PERSON Sodium Date Value Ref Range Status 04/20/2019 [...] Adult Diet Clear Liquid Effective tomorrow Question: ([facility]) Diet type Answer: Clear Liquid 04/19/19 1316 [...] estimated nutritional needs by next assessment Interventions: Daisy diet preferences within the limits of nutrition [...] muscle as instructed. 12/19/17 Historical Provider, magnesium V-tpjhin-lqzjxxdmsvb 42 mg (500 mg)- 250 mg tablet [...] 7. Patient has been started on fentanyl MEAT MARKET MANAGER. Allergies Cipro, doxycycline, levofloxacin, sulfasalazine, iodinated [...] Cardiovascular: S1, S2. Abdomen: Bowel sounds positive. CABLE LAYER: Patient alert awake, oriented x3. There is no gross focal neurological deficit. Extremities: There is no pedal edema. Lab Pending. Assessment and Plan 1. 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 Plan will be to treat patient with fentanyl MEAT MARKET MANAGER, IV fluids, IV Zofran, IV Ativan [...] patient improves symptomatically. Job ID/VF Job ID: [id number] documented in this encounter Procedure Notes * Jim Shelby MD - 04/21/2019 8:02 AM CDTAssociated Order(s): ERCP ENDOSCOPY LAB Patient Name: Pina Reynaga Procedure Date: 04/21/2019 8:02 AM Admit Type: Inpatient Room: [facility] Date of : 1970 Instrument Name: [id number] Gender: Female Note Status: Finalized Procedure: ERCP [...] One biliary stent was visible on the electronic data interchange specialist film. The esophagus was successfully intubated under [...] discussed. Start a fat-sensible diet using preferentially [place] 3-rich sources, healthier and in our experience [...] 04/19/2019 9:46 AM Admit Type: Outpatient Room: [facility] 9 Date of : 1970 Instrument Name: [id number] Gender: Female Note Status: Finalized Procedure: ERCP [...] obtained to r/o H. Pylori. ERCP: The electronic data interchange specialist film appeared essentially normal. The esophagus was [...] Electronically signed by Jim Shelby MD Jim Sehlby M.D. 04/19/2019 11:51:35 AM Number of Addenda: [...] the muscle as instructed. Taking ??? magnesium N-mxfgug-hyklbuwoums 42 mg (500 mg)- 250 mg tablet [...] air with cont pulse ox on, fentanyl MEAT MARKET MANAGER infusing, ativan PRN for pain, NPO [...] safe throughout shift. Patient refused to use MEAT MARKET MANAGER and only wanted Ativan for pain controlled, stating that the MEAT MARKET MANAGER made her sick to her stomach. 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 PYLORI CLOTEST Routine 9 10:25 AM CDT ESOPHAGOGASTRODUODENOSCOPY BIOPSY 04/19/2019 9:52 AM CDT R10.11 R11.0 K83.4 ERCP 04/19/2019 9:46 AM CDT documented in this encounter Results * FL ERCP Biliary and Pancreatic (04/21/2019 10:27 AM CDT) Anatomical Region Laterality Modality Body N/A Computed Radiogr aphy 04/21/2019 2:56 PM CDT Impressions 04/21/2019 2:57 PM CDT Good internal drainage of contrast from the pancreatic and biliary ducts following stent extraction. Electronically signed by: Wilver Vazquez 04/21/2019 2:57 PM CDT EXAM: ??ERCP HISTORY: Follow-up sphincterotomy. COMPARISON: ??ERCP dated 04/19/2019. FINDINGS: Endoscopic catheterization of the pancreatic and bile ducts was performed by Dr. Shelby ??three images are presented for interpretation. The first image is a electronic data interchange specialist radiograph which demonstrates pancreatic and biliary duct [...] for interpretation. The first image is a electronic data interchange specialist radiograph which demonstrates pancreatic and biliary duct [...] 04/21/2019 8:02 AM Admit Type: Inpatient Room: [facility] Date of : 1970 Instrument Name: [id number] Gender: Female Note Status: Finalized Procedure: ERCP [...] One biliary stent was visible on the electronic data interchange specialist film. The esophagus was successfully intubated under [...] previously discussed. Start afat-sensible diet using preferentially [place] 3-rich sources,healthier and in our experience more [...] CDT) Amylase 157(H) 30 - 99 Units/L [facility] Blood specimen (specimen) 04/20/2019 4:06 PM CDT 04/20/2019 4:42 PM CDT Jim Shelby MD LAB BLOOD ORDERABLES Final Result [facility] [address] [place] [address] * eGFR (04/20/2019 6:26 AM CDT) eGFR 104 mL/min/1.7 3 m2 [facility] Comment: Interpretive Data Reference Interval Normal ?>/= 90 mL/min/1.73m2 Mildly decreased* ? 60 - 89 mL/min/1.73m2 Mildly to moderately decreased ?45 - 59 mL/min/1.73m2 Moderately to severely decreased ??30 - 44 mL/min/1.73m2 Severely decreased ?15 - 29 mL/min/1.73m2 Kidney Failure ?< 15 ??mL/min/1.73m2 *Relative to young adult level If -Croatian multiply value by 1.16. Estimated glomerular filtration [...] Shelby MD LAB BLOOD ORDERABLES Final Result [facility] [address] [place] [address] * Differential, auto (04/20/2019 6:26 AM CDT) Neutrophil abs 5.8 1.7 - 6.5 K/cumm [facility] Imm gran abs 0.0 0.0 - 0.1 K/cumm [facility] Lymphocyte abs 0.8 0.8 - 3.3 K/cumm [facility] Monocyte abs 0.6 0.2 - 0.8 K/cumm [facility] Eosinophil abs 0.0 0.0 - 0.5 K/cumm [facility] Basophil abs 0.0 0.0 - 0.1 K/cumm [facility] Neutrophil pct 80.0 % [facility] Comment: Interpretive Data Percent cell count reference ranges are not reported, since discordance with absolute values may lead to misinterpretation of CBC data. Current Interpretive Data was last revised on 2018. Imm gran pct 0.3 % [facility] Comment: Interpretive Data Percent cell count reference ranges are not reported, since discordance with absolute values may lead to misinterpretation of CBC data. Current Interpretive Data was last revised on 2018. Lymphocyte pct 10.8 % [facility] Comment: Interpretive Data Percent cell count reference ranges are not reported, since discordance with absolute values may lead to misinterpretation of CBC data. Current Interpretive Data was last revised on 2018. Monocyte pct 8.5 % [facility] Comment: Interpretive Data Percent cell count reference ranges are not reported, since discordance with absolute values may lead to misinterpretation of CBC data. Current Interpretive Data was last revised on 2018. Eosinophil pct 0.3 % [facility] Comment: Interpretive Data Percent cell count reference ranges are not reported, since discordance with absolute values may lead to misinterpretation of CBC data. Current Interpretive Data was last revised on 2018. Basophil pct 0.1 % [facility] Comment: Interpretive Data Percent cell count reference ranges are not reported, since discordance with absolute values may lead to misinterpretation of CBC data. Current Interpretive Data was last revised on 2018. Blood specimen (specimen) 04/20/2019 6:26 AM CDT 04/20/2019 6:38 AM CDT us Jim Shelby MD LAB BLOOD ORDERABLES Final Result [facility] [address] [place] [address] * (ABNORMAL) Comprehensive metabolic panel (04/20/2019 6:26 AM CDT) Sodium 137 135 - 145 mmol/L [facility] Potassium, pl 3.5 3.3 - 4.9 mmol/L [facility] Chloride 106 97 - 110 mmol/L [facility] CO2 21(L) 22 - 32 mmol/L [facility] Anion gap 10 2 - 15 mmol/L [facility] BUN 9 8 - 25 mg/dL [facility] Creatinine 0.67 0.60 - 1.10 mg/dL [facility] Glucose 134 70 - 199 mg/dL [facility] Comment: Interpretive Data Fasting glucose >/= [...] 2017. Calcium 8.1(L) 8.5 - 10.3 mg/dL [facility] Bilirubin, total 1.1 0.1 - 1.2 mg/dL [facility] Protein, pl 5.2(L) 6.5 - 8.5 g/dL [facility] Albumin 3.6 3.5 - 5.0 g/dL [facility] Alk phos 50 40 - 130 Units/L [facility] ALT 16 7 - 45 Units/L [facility] AST 25 10 - 45 Units/L [facility] Blood specimen (specimen) 04/20/2019 6:26 AM CDT 04/20/2019 6:37 AM CDT us Jim Shelby MD LAB BLOOD ORDERABLES Final Result [facility] [address] Department [place] [address] * (ABNORMAL) CBC with auto differential (04/20/2019 6:26 AM CDT) WBC 7.2 3.8 - 9.9 K/cumm [facility] Hgb 13.3 11.9 - 15.5 g/dL [facility] Hct 39.0 35.6 - 45.5 % [facility] Plt 141(L) 150 - 400 K/cumm [facility] MPV 11.4 9.1 - 12.3 fL [facility] RBC 4.32 3.90 - 5.20 M/cumm [facility] MCV 90.3 81.3 - 96.4 fL [facility] MCH 30.8 27.1 - 33.3 pg [facility] MCHC 34.1 32.3 - 35.7 g/dL [facility] RDW CV 11.9 11.1 - 14.9 % [facility] RDW SD 39.3 35.7 - 48.1 fL [facility] NRBC abs 0.00 0.00 - 0.01 K/cumm [facility] Blood specimen (specimen) 04/20/2019 6:26 AM CDT 04/20/2019 6:38 AM CDT us Jim Shelby MD LAB BLOOD ORDERABLES Final Result [facility] [address] [place] [address] * [place] ERCP Biliary and Pancreatic (04/19/2019 [...] Negative conf by Urease Yes Lot Number [id number] Biopsy 04/19/2019 10:2 5 AM CDT Jim Shelby MD POINT OF CARE TEST ORDERABL ES Final Result * ERCP (04/19/2019 9:46 AM CDT) Anatomical Region Laterality Modality Other Narrative Procedure Note Jim Shelby MD - 04/19/2019 9:46 AM CDT ENDOSCOPY LAB Patient Name: Pina Reynaga Procedure Date: 04/19/2019 9:46 AM Admit Type: Outpatient Room: Endo 9 Date of : 1970 Instrument Name: [id number] Gender: Female Note Status: Finalized Procedure: ERCP [...] was obtained to r/o H.Pylori. ERCP: The electronic data interchange specialist film appeared essentially normal. The esophagus was [...] Diagnoses Not on filedocumented in this encounter Admitting Diagnoses Diagnosis Abdominal [...] (50 mcg/mL) infusion (premix) Continuous dose: None, MEAT MARKET MANAGER dose: 15 mcg, MEAT MARKET MANAGER lockout: 10 Minutes, 1 hour limit: [...] not allergic Mini-Bag Plus bag, Indications: ercp 09 (New Bag - Provider: Marie Faulkner, GYPSY) Bifidobacterium infantis (ALIGN) capsule 4 mg 4 [...] Post-op Floor 1109 (Given - Provider: Gabriela Carlos, GYPSY) gentamicin 80 mg/50 mL in sodium chloride [...] Indications: hypomagnesemia 1655 (Given - Provider: Isaac Moyer, GYPSY) 0955 (Given - Provider: Elise Lau, GYPSY) 0742 (Given - Provider: Elise Lau, GYPSY)0834 (DEC Hold - Provider: Automatic Transfer Provider - Reason: Patient not available)1159 ([facility] Unhold - Provider: Automatic Transfer [...] (MAR Unhold - Provider: Automatic Transfer Provider) pantoprazole DR (PROTONIX) extended release tablet 40 mg 40 mg, oral, 2 times daily, First dose on Fri04/19/19 at 1430, Do not crush, chew, cut, dissolve, open or otherwise manipulate tablet/capsule., Indications: Treatment of Non-Bleeding Gastric Disorder 1654 (Given - Provider: Isaac Moyer, GYPSY)2107 (Given - Provider: Rubia Farooq, GYPSY) 0955 (Given - Provider: Elise Lau, GYPSY)2056 (Given - Provider: Rubia Farooq, GYPSY) 0742 (Given - Provider: Elise Lau, GYPSY)0834 (MAR Hold - Provider: Automatic Transfer Provider - Reason: Patient not available)1159 (DEC Unhold - Provider: Automatic Transfer Provider) sodium chloride 0.9% flush 0.5-20 mL(Linked Group 1) 0.5-20 mL, intra-catheter, Every 8 hours scheduled, First dose on Fri04/21/19 at 0815, Flush volume based on line type and size., Indications: Flushing 0751 (Not Given - Provider: Elise Lau RN - Reason: Other - Comment: Fluids infusing)1355 (Not Given - Provider: Elise Lau RN - Reason: Other - Comment: Patient discharging) sodium chloride 0.9% infusion (CANCELED) 30 mL/hr, intravenous, See admin instructions, Starting on Fri04/19/19 at 0903, For 3 hours, Pre-Op 0920 (New Bag - Provider: Marie Faulkner RN)0953 (Rate/Dose Verify - Provider: Bruna Guerrero CRNA) Continuous Medication Order 04/19/2019 04/20/2019 04/21/2019 fentaNYL 2500 mcg/50 mL (50 mcg/mL) infusion (premix) (CANCELED) Continuous dose: None, MEAT MARKET MANAGER dose: 15 mcg, MEAT MARKET MANAGER lockout: 10 Minutes, 1 hour limit: 90 mcg, intravenous, Continuous, Starting on Fri04/19/19 at 1115, Until Fri04/21/19 at 0845, 50 mL, Indications: Pain, Routine 1154 (New Bag - Provider: Gabriela Carlos, GYPSY)2004 (Rate/Dose Verify - Provider: Rubia Farooq RN) 0632 (Rate/Dose Verify - Provider: Shabbir Simms, GYPSY)0854 (Stopped (Dual Sign) - Provider: Elise Lau, RN) sodium chloride 0.9% infusion (CANCELED) 125 mL/hr, intravenous, Continuous, Starting on Fri04/19/19 at 1400 1655 (New Bag - Provider: Isaac Moyer, GYPSY)2108 (New Bag - Provider: Rubia Farooq, GYPSY) 0457 (New Bag - Provider: Rubia Farooq, RN)1346 (New Bag - Provider: Elise Lau, RN)2200 (New Bag - Provider: Rubia Farooq, GYPSY) 0622 (New Bag - Provider: Shabbir Simms, GYPSY) sodium chloride 0.9% infusion 30 mL/hr, intravenous, Continuous, Starting on Fri04/21/19 at 0915 0838 (New Bag - Provider: Gabriela Carlos RN)1028 (Anesthesia Volume Adjustment - Provider: Tiffani Lane CRNA)1120 (Stopped - Provider: Ritika Milligan RN) PRN Medication Order 04/19/2019 04/20/2019 04/21/2019 acetaminophen [...] 2 mg/minute 1733 (Given - Provider: Isaac Moyer RN) 1002 (Given - Provider: Elise Lau, GYPSY)1605 (Given - Provider: Elise Lau, GYPSY)2201 (Given - Provider: Rubia Farooq, GYPSY) 0628 (Given - Provider: Shabbir Simms, GYPSY)0834 ([facility] Hold - Provider: Automatic Transfer Provider - Reason: Patient not available)1159 ([facility] Unhold - Provider: Automatic Transfer [...] vomiting, Starting on Fri04/19/19 at 1316 0834 ([facility] Hold - Provider: Automatic Transfer Provider - Reason: Patient not available)1023 (Given - Provider: Tiffani Lane CRNA)1159 ([facility] Unhold - Provider: Automatic Transfer Provider) rizatriptan SIGNAL PERSON (MAXALT-SIGNAL PERSON) disintegrating tablet 10 mg 10 mg, oral, Every 2 hours PRN, migraine, Starting on Fri04/19/19 at 1352, Indications: Migraine 0834 (DEC Hold - Provider: Automatic Transfer Provider - Reason: Patient not available)1159 (DEC Unhold - Provider: Automatic Transfer Provider) sodium chloride 0.9% flush 0.5-20 mL(Linked Group 1) 0.5-20 mL, intra-catheter, As needed, line care, Starting on Fri04/21/19 at 0727, Flush volume based on line type and size. Flush before and after each use., Indications: Flushing Linked Groups Order Group 1: Saline lock IV (CANCELED) Routine, Once (Routine), On Fri04/21/19 at 0728, For 1 occurrence, call center team leader to GI lab And sodium chloride 0.9% [...] 04/19/2019 Lactated Ringer's (LR) infusion 9 magnesium R-rasran-qpbbvqkrj de 42 mg (500 mg)- 250 mg tablet extended release 250 mg 04/19/2019 naloxone (NARCAN) 0.4 mg/mL injection 0.04-0.4 mg 04/19/2019 niacin ER (NIASPAN) extended release capsule 250 mg 04/19/2019 ondansetron (ZOFRAN) injection 4 mg 1 04/19 rizatriptan SIGNAL PERSON (MAXALT-SIGNAL PERSON) disintegrating tablet 10 mg 1 04/19/2019 Diet Count Last Ordered Date First Orde red Date ADULT DISCHARGE DIET 1 04/21/2019 Nursing Count Last Ordered Date First Orde red Date DISCHARGE ACTIVITY 1 04/21/2019 FOLLOW UP WITH PROVIDER 04/21/2019 MAINTAIN IV ACCESS 1 04/21/2019 VERIFY [...] 04/21/2019 documented in this encounter Care Teams All Around Presser Relationship Specialty Start Date End Date Jonathan Amado MD PCP - General 03/18/17 documented as of this encounter
--- OUTSIDE RECORDS SUMMARY | 2024-10-17 03:15 | XMS_ITS | Encounter Summary ---
Author Organization [facility] Healthcare Address [address] [place] [address] Care Team Providers Care Sexual Assault Nurse Name Role Phone Jonathan Amado MD Primary Care Provider [phone] Encounter Details Date Type Department Care Team (Latest Contact Info) Description 08/21/2018 11:31 AM PROTOTYPER - 08/21/2018 3:04 PM PROTOTYPER Hospital Encounter [facility] [address] [place] [address] Jim Shelby MD [address] [facility] [address] [place] [address] Abdominal pain, unspecified abdominal location Discharge Disposition: Discharge to home or self care Social History Tobacco Use Types Packs/Day Years Used Date Smoking Tobacco: Never Smokeless Tobacco: Never Alcohol Use Standard Drinks/Week Comments No 0 (1 standard drink = 0.6 oz pur e alcohol) Comments No Sex and Gender Information Value Date Recorded Sex Assigned at Not on file Legal Sex Female 9:51 AM PROTOTYPER Gender Identity Not on file Sexual Orientation Not on file documented as of this encounter Last Filed Vital Signs Vital Sign Reading Time Taken Comments Blood Pressure 122/72 08/21/2018 2:50 PM PROTOTYPER Pulse 52 08/21/2018 2:50 PM PROTOTYPER Temperature - - Respiratory Rate 12 08/21/2018 2:50 PM PROTOTYPER Oxygen Saturation 100% 08/21/2018 2:50 PM PROTOTYPER Inhaled Oxygen Concentration - - Weight 69.9 kg (154 lb) 08/21/2018 12:31 PM PROTOTYPER Height 162.6 cm (5' 4 ) 08/21/2018 12:31 PM PROTOTYPER Body Mass Index 26.43 08/21/2018 12:31 PM PROTOTYPER documented in this encounter Medications at Time [...] the muscle as instructed. 12/19/2017 9 magnesium W-mfongn-jnwlqnscyk e 42 mg (500 mg)- 250 mg [...] mcg by mouth. Yes Historical Provider, magnesium G-zldzij-iqxasjiemtt 42 mg (500 mg)- 250 mg tablet [...] to the patient. Informed consent was signed. OTYPER documented in this encounter Procedure Notes * Jim Shelby MD - 08/21/2018 3:07 PM CSTAssociated Order(s): COLONOSCOPY ENDOSCOPY LAB Patient Name: Pina Reynaga Procedure Date: 08/21/2018 3:07 PM Admit Type: Outpatient Room: [facility] Date of : 1970 Instrument Name: [id number] Gender: Female Note Status: Finalized Procedure: Colonoscopy [...] bowel preparation was evaluated using the BBPS (Henning Bowel Preparation Scale) with scores of: Right [...] 0 Note Initiated On: 08/20/2018 3:07 PM OTYPER * Jim Shelby MD - 08/21/2018 1:41 PM CSTAssociated Order(s): EGD ENDOSCOPY LAB Patient Name: Pina Reynaga Procedure Date: 08/21/2018 1:41 PM Admit Type: Outpatient Room: [facility] 8 Date of : 1970 Instrument Name: GIF-[id number] [...] recurrent SO stenosis. Electronically signed by Jim Shelyb MD Jim Shelby MD 08/21/2018 2:19:24 PM Number of Addenda: 0 Note Initiated On: 08/21/2018 1:41 PM OTYPER OTYPER documented in this encounter Plan of Treatment Not on file documented as of this encounter Procedures Procedure Name Priority Date/Time Associated Diagnosis Comments COLONOSCOPY 08/21/2018 3:07 PM PROTOTYPER SURGICAL PATHOLOGY Routine 08/21/2018 2:10 PM PROTOTYPER Abdominal pain, unspecified abdominal location POCT H. PYLORI CLOTEST Routine 8 2:00 PM PROTOTYPER ESOPHAGOGASTRODUODENOSCOPY BIOPSY 08/21/2018 1:44 PM PROTOTYPER R19.7 R10.30 COLON BIOPSY 08/21/2018 1:44 PM PROTOTYPER R19.7 R10.30 EGD 08/21/2018 1:41 PM PROTOTYPER documented in this encounter Results * COLONOSCOPY (08/21/2018 3:07 PM PROTOTYPER) Anatomical Region Laterality Modality Other Narrative Procedure [...] bowel preparation was evaluated using the BBPS (Henning Bowel Preparation Scale) with scores of: Right [...] Result * Surgical pathology (08/21/2018 2:10 PM PROTOTYPER) Tissue (Duodenum, Biopsy) 08/21/2018 1:54 PM PROTOTYPER Tissue (Colon, Biopsy) 08/21/2018 2:06 PM PROTOTYPER Tissue (Colon, Biopsy) 08/21/2018 2:10 PM PROTOTYPER Narrative PATHOLOGY [facility] - 08/22/2018 9:37 AM PROTOTYPER [address] ??[address] Tele: ?? Felicia Reid MD - Zone Maintenance Technician ?? Reece Palacio - Acid Mixer SURGICAL PATHOLOGY REPORT Patient Name: ??PINA REYNAGAAlvin Address: ??[address] [place] [address][birth year] Gender: ??F : ??1970 (Age: 48) Service: ??Gastro Location: ??G44, ?? Hospital #: ??[id number] Patient Type: ?? Same Day Surgery Accession #: ? [id number] Taken: ? 08/21/2018 Received ? 08/21/2018 Reported: ? 08/22/2018 Physician(s): ? Jim Shelby M.D. Jonathan Amado M.D. DIAGNOSIS: Duodenum-biopsy: ? - ??No histopathologic abnormality Ileum, terminal-biopsy: ? - ??No histopathologic abnormality Colon, random-biopsy: ? - ??No histopathologic abnormality esb/08/22/2018 08:04 Examining Pathologist: Bola Gómez M.D. Report [...] containers of formalin all labeled Pina Reynaga. A. ??The first container is additionally labeled duodenum [...] filtered and submitted entirely in cassette C1. [facility]/08/21/2018 16:47 ? [facility] MICROSCOPIC DESCRIPTION: Review of the part A [...] is not evident. Clerical Data Follows A; 48911 B; 17374 C; 03439 REPORT IMAGES AND/OR SCANNED DOCUMENTS ONLY VIEWABLE IN PDF FORMAT The immunohistochemical test(s) cited in this report, if any, was developed and its performance characteristics determined by [facility] Pathology Department. ??It has not been cleared or approved by the U.S. Food and Drug Administration. ??The FDA has determined that such clearance or approval is not necessary. ??This test is used for clinical purposes. ??It should not be regarded as investigational or for research. ??[facility] Laboratory is certified under the Clinical Laboratory Improvement Amendments of 1988 (CLIA) as qualified to perform high complexity testing. ??Immunostains were performed on formalin-fixed paraffin embedded tissue using a polymer diaminobenzidine chromogen detection system. Antibodies used may include clone SP1 (rabbit monoclonal, estrogen receptor), clone 1E2 (rabbit monoclonal progesterone receptor), Ki-67 (rabbit monoclonal, 30-9), and [id number] (rabbit polyclonal, c-kit). us Jim Shelby MD LAB PATHOLOGY ORDERABLES Fi nal Result PATHOLOGY [facility] Laboratory Receiving [address] [place] [address] * POCT H. pylori (Clotest) (08/21/2018 2:00 PM PROTOTYPER) H Pylori, POC Negative Negative QC Negative conf by Urease Yes Lot Number [id number] Biopsy 08/21/2018 2:00 PM PROTOTYPER Jim Shelby MD POINT OF CARE TEST ORDERABL ES Final Result * EGD (08/21/2018 1:41 PM PROTOTYPER) Anatomical Region Laterality Modality Other Narrative Procedure Note Jim Shelby MD - 08/21/2018 1:41 PM CST ENDOSCOPY LAB Patient Name: Pina Reynaga Procedure Date: 08/21/2018 1:41 PM Admit Type: Outpatient Room: [facility] 8 Date of : 1970 Instrument Name: GIF-[id number] [...] Final documented in this encounter Visit Diagnoses Diagnosis Abdominal pain, unspecified abdominal location documented in this encounter Administered Medications Inactive Administered Medications - up to 3 most recent administrations Medication Order MAR Action Action Date Dose Rate Site sodium chloride 0.9% infusion 30 mL/hr, intravenous, Continuous, Starting on Fri08/21/18 at 1315 New Bag 08/21/2018 12:36 PM PROTOTYPER 30 mL/hr 30 mL/hr documented in this encounter Discontinued Medications Medication Sig Discontinue Reason Start Date End Da te melatonin 10 mg capsule Take 10 mg by mouth. Other 08/21/2018 documented as of this encounter Active and Recently Administered Medications Times are shown in PROTOTYPER. Continuous Medication Order 08/19/2018 08/20/2018 08/21/2018 sodium chloride 0.9% infusion 30 mL/hr, intravenous, Continuous, Starting on Fri08/21/18 at 1315 1236 (New Bag - Prov ider: Soledad Velazquez RN)1410 (Anesthesia Volume Adjustment - Provider: Pina Ellis CRNA)1435 (Stopped - Provider: Sudha Sharp RN) documented in this encounter Care Teams Sexual Assault Nurse Relationship Specialty Start Date End Date Jonathan Amado MD PCP - General 03/18/17 documented as of this encounter
--- OUTSIDE RECORDS SUMMARY | 2024-10-17 03:15 | XMS_ITS | Encounter Summary ---
Author Organization [facility] Facility Care Team Providers Care Bucket Hooker Name Role Phone Jonathan Amado MD Primary Care Provider [phone] Encounter Details Date Type Department Care Team (Latest Contact Info) Description 04/14/2019 Travel Social History Tobacco Use Types Packs/Day Years Used Date Smoking Tobacco: Never Smokeless Tobacco: Never Alcohol Use Standard Drinks/Week Comments No 0 (1 standard drink = 0.6 oz pur e alcohol) Comments No Sex and Gender Information Value Date Recorded Sex Assigned at Not on file Legal Sex Female 9:51 AM ENTERTAINMENT DANCER Gender Identity Not on file Sexual Orientation Not on file documented as of this encounter Plan of Treatment Not on file documented as of this encounter Visit Diagnoses Not on filedocumented in this encounter Care Teams Bucket Hooker Relationship Specialty Start Date End Date Jonathan Amado MD PCP - General 03/18/17 documented as of this encounter
--- OUTSIDE RECORDS SUMMARY | 2024-10-17 03:15 | XMS_ITS | Encounter Summary ---
Author Organization [facility] Address [address] [place] [address] Phone Care Team Providers Care Vocational Services Specialist Name Role Phone Jonathan Amado MD Primary Care Provider [phone] Reason for Visit * Neurology (Routine) - Closed Specialty Diagnoses / Procedures Referred By Contac t Referred To Contact Diagnoses Myalgia Fatigue, unspecified type Procedures EMG/NCV -Procedure performed at: [facility] EMG Lab; Clinical Summary: Proximal weakness and ?Gottrons papules.; Reason for referral or diagnostic question: Query myositis; Ultrasound: As determined by examining physician; Please indicate choice of pr... Vickey Huitron MD PhD Phone: tel: fax: [facility] (All Locations) Referral ID Status Reason Start Date Expiration Date Visits Re quested Visits Authorized [id number] Closed 06/26/2018 01/05/2020 1 1 Encounter Details Date Type Department Care Team (Latest Contact Info) Description 07/13/2018 1:30 PM CDT Procedure visit [facility] Neurological Testing [address] [facility] [address] [place] [address] [place] [address] Myalgia; Fatigue, unspecified type Social History Tobacco Use Types Packs/Day Years Used Date Smoking Tobacco: Never Smokeless Tobacco: Never Alcohol Use Standard Drinks/Week Comments No 0 (1 standard drink = 0.6 oz pur e alcohol) Comments No Sex and Gender Information Value Date Recorded Sex Assigned at Not on file Legal Sex Female 9:51 AM GUIDEMAN Gender Identity Not on file Sexual Orientation Not on file documented as of this encounter Procedure Notes * Brian Avina MD - 07/13/2018 1:30 PM CDT Images from the original note were not included. Procedures [facility] DEPARTMENT OF NEUROLOGY NEUROMUSCULAR ELECTRODIAGNOSTIC LABORATORY CLINICAL ELECTROMYOGRAPHY REPORT Patient: Pina Reynaga Birthdate: 1970 Study No: [id number] MRN No: [id number] Referring M.Adriana.: Vickey Mayen* Date of Study:07/13/18 Examined by: Brian Avina MD REASON FOR REFERRAL: This is a woman with myalgias and rash. SUMMARY OF FINDINGS: 1. The right median and tibial motor nerve conduction studies were normal. 2. The right median and sural antidromic sensory nerve conduction studies were normal. 3. Needle EMG of the right vastus medialis, tibialis anterior, deltoid, biceps brachii, and gluteusmedius was normal. Temperature was maintained above 32??C in the hand and above 30??C in the foot for all NCSs. CONCLUSION/INTERPRETATION: This study does not show electrodiagnostic evidence of a primary myopathy or, based on limited screening, a peripheral neuropathy. Brian Avina MD Electromyographer M.D. By signing this report, the attending Electromyographer certifies that he/she personally reviewed the electrodiagnostic study and edited the report to fully conform with his/her intent. Abbreviations : CMAP = compound muscle action potential SNAP = sensory nerve action potential CNAP = compound nerve action potential MUP = motor unit potential Fib = fibrillation PSW = positive sharp wave NCS = nerve conduction study RNS = repetitive nerve stimulation Inquiries regarding study/report - call . Appointments - call . Fax no.: . Our correspondence address : [address], [address] [place] [address] of Medicine Neurology, EMG Lab [place], [place] Data Report Full Name: Pina Reynaga Gender: Female Date of : 1970 Visit Date: 07/13/2018 13:29 Age: 48 Years 3 Months Old Examining Physician: Kailyn Referring Physician: Elana Height: 5 feet 4 inch MNC Nerve / Sites Latency Amplitude Segments Distance Lat Diff Velocity ms mV mm ms m/s R Median - APB Wrist 2.50 9.8 Wrist - APB 70 Elbow 6.41 9.8 Elbow - Wrist 230 3.91 58.9 R Tibial - AH Ankle 3.96 11.3 Ankle - AH 100 Pop fossa 10.42 10.7 Pop fossa - Ankle 370 6.46 57.3 SNC Nerve / Sites Onset Lat Peak Lat Amplitude OnsetDiff Distance Cond Oli ms ms ??V ms mm m/s R Median, Ulnar - Digits 2, 5 Median Digit 2 2.3 3.0 27 2.3 140 61 R Sural - Ankle (Calf) Calf 2.1 2.8 16 2.1 140 67 EMG Summary Insertional Spontaneous MUAP Comments Muscle Nerve Roots Activity Fib PSW Fasc Other Dur. Amp Poly Recruit Activate Comments R. Vastus medialis Femoral L2-L4 Normal None None None . Normal Normal None Normal Normal . R. Tibialis anterior Deep peroneal (Fibular) L4-L5 Normal None None None . Normal Normal None Normal Normal . R. Deltoid Axillary C5-C6 Normal None None None . Normal Normal None Normal Normal . R. Biceps brachii Musculocutaneous C5-C6 Normal None None None . Normal Normal None Normal Normal . R. Gluteus medius Superior gluteal L4-S1 Normal None None None . Normal Normal None Normal Normal . documented in this encounter Plan of Treatment Not on file documented as of this encounter Visit Diagnoses Diagnosis Myalgia Unspecified myalgia and myositis Fatigue, unspecified type documented in this encounter Orders Imaging Orders Without Results Count Last Order ed Date First Ordered Date EMG/NCV 1 07/13/2018 documented in this encounter Care Teams Vocational Services Specialist Relationship Specialty Start Date End Date Jonathan Amado MD PCP - General 03/18/17 documented as of this encounter
--- OUTSIDE RECORDS SUMMARY | 2024-10-17 03:15 | XMS_ITS | Encounter Summary ---
Author Organization [facility] Healthcare Address [address] [place] [address] Care Team Providers Care Mold Inspector Name Role Phone Jonathan Amado MD Primary Care Provider [phone] Encounter Details Date Type Department Care Team (Late st Contact Info) Description 04/19/2019 9:51 AM CDT Anesthesia Event [facility] [address] [place] [id number] Amaris Ramey MD [address] [place] [address] Elayne Colindres NP [address] [facility] [place] [address] Anesthesia Record Procedure Summary Procedure Name Responsible Anesthesiologist Anesthesia Start Time Anesthesia Stop Time ESOPHAGOGASTRODUODENOSCOPY BIOPSY (Left) Amaris Ramey MD 04/19/19 0951 04/19/19 1039 Events Date Time Event Comment 04/19/2019 0924 0951 An Start 0951 An Start Data 0952 In Room 0956 Patient Positioned Prone 0956 Bite Block Placed 0956 An Induction The patient was reevaluated immediately before moderate or deep sedation use and before anesthesia induction. 0957 Anesthesia Ready 1005 Proc Start 1026 an stop data 1027 Proc Fin 1031 Out of Room 1039 Handoff to RN I completed my handoff to the receiving nurse during which we: 1. Patient identified 2. Responsible provider identified 3. Pertinent medical history reviewed 4. Procedure type and surgical course discussed 5. Intraoperative anesthetic management and any significant issues discussed 6. Expectations and concerns for postop period discussed 7. Questions solicited from receiving nurse 8. Patient disposition at the time of handoff: other 1039 An Stop Meds Name Total lidocaine (cardiac) syringe 2 % 5 mL propofol 400 mg fentaNYL 50 mcg ondansetron 4 mg midazolam 1 mg gentamicin 80 mg/50 mL in sodium chlorid e (premix) 80 mg 80 mg sodium chloride 0.9% infusion 0 mL * Agents Name O2 * Blood No blood administrations on file. Lines, Drains, and Airways Type Details Placement Removal Peripheral IV Placement Date: 04/19/19; Placement Time: 921; Change Due: 04/23/19; Catheter Size: 20 G; Orientation: Right; Location: Wrist; Site Prep: Chlorhexidine; Insertion Attempts: 1; Patient Tolerance: Tolerated well; Removal Date: 04/21/19; Removal Time: 14404/19/19 09 by Marie Faulkner RN 04/21/19 144 by Elise Huber RN documented in this encounter Social History Tobacco Use Types Packs/Day Years Used Date Smoking Tobacco: Never Smokeless Tobacco: Never Alcohol Use Standard Drinks/Week Comments No 0 (1 standard drink = 0.6 oz pur e alcohol) Comments No Sex and Gender Information Value Date Recorded Sex Assigned at Not on file 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 Gender Identity Not on file Sexual Orientation Not on file documented as of this encounter OR Notes * Anesthesia Postprocedure Evaluation - Bruna Guerrero CRNA - 04/19/2019 10:39 AM CDT Patient: Pina Reynaga Procedure Summary Date: 04/19/19 Room / Location: [facility] [facility] END[facility]COPY Anesthesia Start: 950 Anesthesia Stop: 1038 Procedures: ESOPHAGOGASTRODUODENOSCOPY BIOPSY (Left ) ENDO ENDOSCOPIC RETROGRADE CHOLANGIOPANCREATOGRAPHY WITH STENT PLACEMENT (N/A ) Endo Add On Endoscopic Retrograde Cholangiopancreatography With Stent Placement (N/A ) Diagnosis: (R10.11 R11.0 K83.4) Provider: Jim Shelby MD Responsible Provider: Amaris Ramey MD Anesthesia Type: general/TIVA ASA Status: 2 Anesthesia Type: general/TIVA Last vitals BP 107/74 Pulse 75 Temp (!) 35.9 ??C (96.7 ??F) (Temporal) Resp 13 SpO2 99% Anesthesia Post Evaluation Patient location: GI recovery area. 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 Allergic [...] Bilateral - (Added by TW Conv) ??? WA DILATION/CURETTAGE,DIAGNOSTIC Dilation And Curettage - (Added by TW Conv) ??? WA ERCP W/SPHINCTEROTOMY/PAPILLOTOMY ERCP With Endoscopic Sphincterotomy - (Added by TW Conv) ??? WA HYSTEROSCOPY,W/ENDO BX Hysteroscopy - (Added by TW Conv) ??? WA LAP,DIAGNOSTIC ABDOMEN Laparoscopy (Diagnostic) - 1998 (Added by TW Conv) ??? WA REMOVAL OF OVARIAN CYST(S) Ovarian Cystectomy - (Added by TW Conv) ??? WA REMOVAL OF OVARY(S) Oophorectomy - 1999 LEFT REMOVED 2010 RIGHT REMOVED (Added by TW Conv) ? ? WA REMOVAL OF TONSILS,<12 Y/O Tonsillectomy - (Added by TW Conv) ??? WA TOTAL ABDOM HYSTERECTOMY Hysterectomy - 2001 (Added by TW Conv) ??? SINUS SURGERY Sinus Surgery - (Added by TW Conv) ??? UPPER GASTROINTESTINAL ENDOSCOPY OB History 2 Para 2 Term 2 0 AB 0 Living 2 SAB 0 TAB 0 Ectopic 0 Multiple 0 Live Births 2 Allergies Allergen Reactions ??? Ciprofloxacin Rash and Muscle pain ??? Doxycycline Rash and Unknown ??? Levofloxacin Rash ??? Sulfasalazine Rash Body aches ??? Iodinated Contrast- Oral And Iv Dye Unknown Sneezing, shortness of breath, body aches ??? Metrizamide Unknown ??? Morphine Unknown and Nausea And Vomiting ??? Compazine [Prochlorperazine] Other (See comments) and Anxiety ??? Unclassified Drug Cough HOME MEDICATIONS : Bifidobacterium infantis (ALIGN) 4 mg capsule cetirizine (ZyrTEC) 10 mg tablet cyanocobalamin, vitamin B-12, 1,000 mcg capsule EPINEPHrine 0.3 mg/0.3 mL auto-injection syringe magnesium M-wnrkkx-doexnhtliot 42 mg (500 mg)- 250 mg tablet extended release pantoprazole DR (PROTONIX) 40 mg EC tablet pseudoephedrine (SUDAFED) 30 mg tablet rizatriptan (MAXALT) 10 mg tablet VAGIFEM 10 mcg tablet No current facility-administered medications for this visit. No current outpatient medications on file. Facility-Administered Medications Ordered in Other Visits: ??? ampicillin (OMNIPEN) 2,000 mg in sodium chloride 0.9% 100 mL IVPB, 2,000 mg, intravenous, Once,Last Rate: 200 mL/hr at 04/19/19919, 2,000 mg at 04/19/19919 ??? gentamicin 80 mg/50 mL in sodium chloride (premix) 80 mg, 80 mg, intravenous, Once ??? sodium chloride 0.9% infusion, 30 mL/hr, intravenous, See Admin Instructions, Last Rate: 30 mL/hr at 04/19/19919, 30 mL/hr at 04/19/19919 Social History Tobacco Use Smoking Status Never Smoker Smokeless Tobacco Never Used Substance and Sexual Activity Alcohol Use No Substance and Sexual Activity Drug Use No Family History Problem Relation Age of [...] of breast - (Added by TW Conv) PAT Physical Exam There were no vitals filed for this visit. PT: No results found for requested labs within last 720 hours. INR: No results found for requested labs within last 720 hours. APTT: No results found for requested labs within last 720 hours. Hgb A1C: No results found for requested labs within last 720 hours. CBC RBC: No results found for requested labs within last 720 hours. RDW: No results found for requested labs within last 720 hours. MCHC: No results found for requested labs within last 720 hours. MCH: No results found for requested labs within last 720 hours. MCV: No results found for requested labs within last 720 hours. Hct: No results found for requested labs within last 720 hours. Hgb: No results found for requested labs within last 720 hours. WBC: No results found for requested labs within last 720 hours. MPV: No results found for requested labs within last 720 hours. Platelets: No results found for requested labs within last 720 hours. RDW CV: No results found for requested labs within last 720 hours. RDW Sd: No results found for requested labs within last 720 hours. BMP Glucose: No results found for requested labs within last 720 hours. Calcium: No results found for requested labs within last 720 hours. Sodium: No results found for requested labs within last 720 hours. Potassium: No results found for requested labs within last 720 hours. CO2: No results found for requested labs within last 720 hours. Chloride: No results found for requested labs within last 720 hours. BUN: No results found for requested labs within last 720 hours. Creatinine: No results found for requested labs within last 720 hours. DOS Physical Exam Medical history, medications, and allergies reviewed. Attestation: This PAT evaluation 04/19/2019. Airway Exam: Mallampati: II Cervical ROM: FROM TM distance: >4 Jaw ROM: full Cardiovascular Exam: Rate: regular Rhythm: regular Pulmonary Exam: LCTA, bilat Dental Exam: Appears intact Current state: Patient's current state is interactive and cooperative. Anesthesia Plan ASA 2 My patient is approved for the Anesthesia Controlled Medication protocol when under care of a CRIMINAL INVESTIGATOR Planned anesthesia: General/TIVA Team communication plan: mask Induction: Induction: intravenous. Postoperative Plan: No postoperative mechanical ventilation intended. Patient's planned disposition post procedure is Outpatient. Informed Consent: Anesthesia plan and risks discussed with patient. Plan and Consent Comments: Backup plan is a general anesthetic with or without an endotracheal tube or LMA as required Discussed possibility of recall Consent and Attending signature: I and/or my designee have discussed the anesthesia plan, benefits, possible alternatives, parental presence at time of induction (if indicated), and clinically relevant risks that may include dental injury, unintentional awareness, and/or other complications. The patient and/or parent/legal guardian understand, and agree to proceed. All questions answered. documented in this encounter Plan of Treatment Not on file documented as of this encounter Visit Diagnoses Not on filedocumented in this encounter Administered Medications Inactive Administered Medications - up to 3 most recent administrations Medication Order MAR Action Action Date Dose Rate Site fentaNYL (SUBLIMAZE) preservative free injection intravenous, As needed, Starting on Fri04/19/19 at 0953, Anesthesia Intra-op Given 04/19/2019 9:53 AM CDT 50 mcg gentamicin 80 mg/50 mL in sodium chloride (premix) 80 mg 80 mg, intravenous, at 100 mL/hr, Administer over 30 Minutes, Once, On Fri04/19/19 at 0945, For 1 dose, Pre-Procedure (GI), If not allergic, Indications: ercpIndications:ercp Given 04/19/2019 9:53 AM CDT 80 mg lidocaine (cardiac) (XYLOCAINE) preservative free injection intravenous, As needed, Starting on Fri04/19/19 at 0956, Anesthesia Intra-op, Indications: Ventricular ArrhythmiasIndications:Ventricula r Arrhythmias Given 04/19/2019 9:56 AM CDT 5 mL midazolam (VERSED) preservative free injection intravenous, Administer over 2 Minutes, As needed, Starting on Fri04/19/19 at 0956, Anesthesia Intra-op Given 04/19/2019 9:56 AM CDT 1 mg ondansetron (ZOFRAN) injection intravenous, Administer over 2 Minutes, As needed, Starting on Fri04/19/19 at 0953, Anesthesia Intra-op Given 04/19/2019 9:53 AM CDT 4 mg propofol (DIPRIVAN) IV intravenous, As needed, Starting on Fri04/19/19 at 0956, Anesthesia Intra-op Given 04/19/2019 10:11 AM CDT 200 mg Given 04/19/2019 9:56 AM CDT 200 mg sodium chloride 0.9% infusion 30 mL/hr, intravenous, See admin instructions, Starting on Fri04/19/19 at 0903, For 3 hours, Pre-Op Rate/Dose Verify 04/19/2019 9:53 AM CDT New Bag 04/19/2019 9:20 AM CDT 30 mL/hr 30 mL/hr documented in this encounter Care Teams Mold Inspector Relationship Specialty Start Date End Date Jonathan Amado MD PCP - General 03/18/17 documented as of this encounter
--- OUTSIDE RECORDS SUMMARY | 2024-10-17 03:15 | XMS_ITS | Encounter Summary ---
Author Organization [facility] Healthcare Address [address] [place] [address] Care Team Providers Care Internet Technology Manager Name Role Phone Jonathan Amado MD Primary Care Provider [phone] Encounter Details Date Type Department Care Team (Late st Contact Info) Description 07/27/2018 5:40 PM CDT Lab [facility] Advanced Medicine 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 Gender Identity Not on file Sexual Orientation Not on file documented as of this encounter Discharge Disposition Disposition Code Departure Means Destination Discharge to home or self care documented in this encounter Plan of Treatment Not on file documented as of this encounter Procedures Procedure Name Priority Date/Time Associated Diagnosis Comments ALDOLASE Routine 07/27/2018 5:34 PM CDT Myalgia CREATINE KINASE (CK), TOTAL Routine 07/27/2018 5:34 PM CDT Myalgia documented in this encounter Results * Aldolase (07/27/2018 5:34 PM CDT) Aldolase See comment 0.1 - 8.0 Units/L [facility] Comment:CRDT, Hemolyzed Spec imen. Blood specimen (specimen) 07/27/2018 5:34 PM CDT 07/27/2018 5:41 PM CDT Narrative [facility] - 07/29/2018 11:01 AM CDT us Vickey Huitron MD PhD LAB BLOOD ORD ERABLES Final Result Performing Organization Address City/[facility]/ZIP Co de Phone Number [facility] [place] [address] * Creatine kinase (CK), total (07/27/2018 5:34 PM CDT) Pathologist [facility] CK 177 30 - 200 Units/L [facility] Blood specimen (specimen) 07/27/2018 5:34 PM CDT 07/27/2018 5:41 PM CDT Narrative [facility] - 07/27/2018 7:28 PM CDT us Vickey Huitron MD PhD LAB BLOOD ORD ERABLES Final Result [facility] [place] [address] documented in this encounter Visit Diagnoses Diagnosis Myalgia Unspecified myalgia and myositis documented in this encounter Care Teams Internet Technology Manager Relationship Specialty Start Date End Date Jonathan Amado MD PCP - General 03/18/17 documented as of this encounter
--- OUTSIDE RECORDS SUMMARY | 2024-10-17 03:15 | XMS_ITS | Encounter Summary ---
Author Organization [facility] Healthcare Address [address] [place] [address] Care Team Providers Care Supervisor Area Name Role Phone Jonathan Amado MD Primary Care Provider [phone] Encounter Details Date Type Department Care Team (Latest Contact Info) Description 04/19/2019 8:42 AM CDT - 04/21/2019 2:35 PM CDT Hospital Encounter [facility] [address] [place] [phone] Jim Shelby MD [address] [place] [address] Mami Mcgraw MD [address] [place], [place] [id number] Abdominal pain Discharge Disposition: Discharge to home or self care Social History Tobacco Use Types Packs/Day Years Used Date Smoking Tobacco: Never Smokeless Tobacco: Never Alcohol Use Standard Drinks/Week Comments No 0 (1 standard drink = 0.6 oz pur e alcohol) Comments No Sex and Gender Information Value Date Recorded Sex Assigned at Not on file 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 Gender Identity Not on file Sexual Orientation Not on file documented as of this encounter Last Filed Vital Signs Vital Sign Reading Time Taken Comments Blood Pressure 123/82 04/21/2019 12:02 PM CDT Pulse 69 04/21/2019 12:02 PM CDT Temperature 36.4 ??C (97.6 ??F) 04/21/2019 12:02 PM C DT Respiratory Rate 20 04/21/2019 12:02 PM CDT Oxygen Saturation 100% 04/21/2019 12:02 PM CDT Inhaled Oxygen Concentration - - Weight 70.3 kg (155 lb) 04/19/2019 9:10 AM CDT Height 162.6 cm (5' 4 ) 04/19/2019 9:10 AM CDT Body Mass Index 26.61 04/19/2019 9:10 AM CDT documented in this encounter Discharge Diagnoses Diagnosis Postcholecystectomy syndrome - POSTCHOLECYSTECTOMY SYNDROME Restless legs syndrome - RESTLESS LEGS SYNDROME Restless legs syndrome (RLS) Gastro-esophageal reflux disease without esophagitis - GASTRO-ESOPHAGEAL REFLUX DISEASE WITHOUT ESOPHAGITIS Fibromyalgia - FIBROMYALGIA Unspecified myalgia and myositis Migraine without status migrainosus, not intractable - MIGRAINE, UNSPECIFIED, NOT INTRACTABLE, WITHOUT STATUS MIGRAINOSUS Chronic pain syndrome - CHRONIC PAIN SYNDROME Irritable bowel syndrome without diarrhea - IRRITABLE BOWEL SYNDROME WITHOUT DIARRHEA Other overlap syndromes (HCC) - OTHER OVERLAP SYNDROMES Other termination clerk (current) drug therapy - OTHER FDC (CURRENT) DRUG THERAPY History of peptic ulcer disease - PERSONAL HISTORY OF PEPTIC ULCER DISEASE Personal history of peptic ulcer disease Acquired absence of other specified parts of digestive tract - ACQUIRED ABSENCE OF OTHER SPECIFIED PARTS OF DIGESTIVE TRACT Family history of malignant neoplasm of breast - FAMILY HISTORY OF MALIGNANT NEOPLASM OF BREAST documented in this encounter Discharge Summaries * [...] the procedure, patient was treated with fentanyl SOFT CRAB SHEDDER, IV fluids, IV Zofran, IV Ativan, and [...] S1, S2. Abdomen: Soft. Bowel sounds positive. COMPRESSOR OPERATOR: Patient is alert, awake, oriented x3. There is no gross focal neurological deficit. Extremities: There is no pedal edema. Plan Continue present medications, send the patient home, and follow up with Dr. Shelby's office in 6-8 weeks. Patient had been advised to follow the strict low-fat diet and to avoid alcohol and smoking. Job ID/VF Job ID: [id number] documented in this encounter Discharge Instructions * Attachments The following attachments cannot be sent through Care Everywhere. * ERCP (Endoscopic Retrograde Cholangiopancreatography) (Discharge Care) (Grenadian) * Hydrocodone/Acetaminophen (By mouth) (Grenadian) * Lorazepam (By mouth) (Grenadian) * Low Fat Diet (Discharge Care) (Grenadian) documented in this encounter Medications at Time [...] 10 days 20 tablet 04/21/2019 9 magnesium G-vphcgo-yyszjzzxsk e 42 mg (500 mg)- 250 mg [...] 04/19 ERCP Complained of not liking fentanyl SOFT CRAB SHEDDER, turned off for now, managing pain better [...] 40 mg, oral, BID, 40 mg at 04/20/19954 ??? rizatriptan INSURANCE VERIFICATION SPECIALIST (MAXALT-INSURANCE VERIFICATION SPECIALIST) disintegrating tablet 10 mg, 10 mg, oral, Q2H PRN ??? sodium chloride 0.9% infusion, 125 mL/hr, intravenous, Continuous, Last Rate: 125 mL/hr at 04/20/19456, 125 mL/hr at 04/20/19456 PRN Medications: ??? acetaminophen ??? benzocaine-menthol ??? famotidine ??? LORazepam ??? naloxone ??? ondansetron ??? rizatriptan INSURANCE VERIFICATION SPECIALIST Lab/Radiology/Diagnostic Review: Laboratory review: Lab results in [...] will be to treat patient with fentanyl SOFT CRAB SHEDDER, IV fluids, IV Zofran, IV Ativan and [...] and documentation: 35 Minutes Mami Mcgraw MD [facility] Exchange: This note was transcribed using web care [employer] Speech Recognition software. As a result, there [...] Bilateral - (Added by TW Conv) ??? HI DILATION/CURETTAGE,DIAGNOSTIC Dilation And Curettage - (Added by TW Conv) ??? HI ERCP W/SPHINCTEROTOMY/PAPILLOTOMY ERCP With Endoscopic Sphincterotomy - (Added by TW Conv) ??? HI HYSTEROSCOPY,W/ENDO BX Hysteroscopy - (Added by TW Conv) ??? HI LAP,DIAGNOSTIC ABDOMEN Laparoscopy (Diagnostic) - 1998 (Added by TW Conv) ??? HI REMOVAL OF OVARIAN CYST(S) Ovarian Cystectomy - (Added by TW Conv) ??? HI REMOVAL OF OVARY(S) Oophorectomy - 1999 LEFT REMOVED 2010 RIGHT REMOVED (Added by TW Conv) ? ? HI REMOVAL OF TONSILS,<12 Y/O Tonsillectomy - (Added by TW Conv) ??? HI TOTAL ABDOM HYSTERECTOMY Hysterectomy - 2001 (Added [...] LORazepam ??? naloxone ??? ondansetron ??? rizatriptan INSURANCE VERIFICATION SPECIALIST Sodium Date Value Ref Range Status 04/20/2019 [...] Adult Diet Clear Liquid Effective tomorrow Question: ([facility]) Diet type Answer: Clear Liquid 04/19/19 1316 [...] estimated nutritional needs by next assessment Interventions: [place] diet preferences within the limits of nutrition [...] muscle as instructed. 12/19/17 Historical Provider, magnesium G-nbyhyh-fqgvzsvmbea 42 mg (500 mg)- 250 mg tablet [...] 7. Patient has been started on fentanyl SOFT CRAB SHEDDER. Allergies Cipro, doxycycline, levofloxacin, sulfasalazine, iodinated contrast, [...] Cardiovascular: S1, S2. Abdomen: Bowel sounds positive. COMPRESSOR OPERATOR: Patient alert awake, oriented x3. There is no gross focal neurological deficit. Extremities: There is no pedal edema. Lab Pending. Assessment and Plan 1. 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 Plan will be to treat patient with fentanyl SOFT CRAB SHEDDER, IV fluids, IV Zofran, IV Ativan and [...] patient improves symptomatically. Job ID/VF Job ID: [id number] documented in this encounter Procedure Notes * Jim Shelby MD - 04/21/2019 8:02 AM CDTAssociated Order(s): ERCP ENDOSCOPY LAB Patient Name: Pina Reynaga Procedure Date: 04/21/2019 8:02 AM Admit Type: Inpatient Room: [facility] Date of : 1970 Instrument Name: [id number] Gender: Female Note Status: Finalized Procedure: ERCP [...] One biliary stent was visible on the marine electronics repairer film. The esophagus was successfully intubated under [...] discussed. Start a fat-sensible diet using preferentially [place] 3-rich sources, healthier and in our experience [...] 04/19/2019 9:46 AM Admit Type: Outpatient Room: [facility] Date of : 1970 Instrument Name: [id number] Gender: Female Note Status: Finalized Procedure: ERCP [...] obtained to r/o H. Pylori. ERCP: The marine electronics repairer film appeared essentially normal. The esophagus was [...] documented in this encounter Consult Notes * Jens Elayneblank Mcginnis, MELODIE - 04/19/2019 5:55 PM CDT Gastroenterology Consult [...] the muscle as instructed. Taking ??? magnesium Z-hbtwyl-otfjnqqsikw 42 mg (500 mg)- 250 mg tablet [...] oophorectomy, right ovarian cyst removal, adhesiolysis, lap elaan, tonsillectomy Social History: Tobacco: never Etoh: none [...] air with cont pulse ox on, fentanyl SOFT CRAB SHEDDER infusing, ativan PRN for pain, NPO since [...] safe throughout shift. Patient refused to use SOFT CRAB SHEDDER and only wanted Ativan for pain controlled, stating that the SOFT CRAB SHEDDER made her sick to her stomach. 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 Electronically signed by: Grupo Huang M.D. Narrative 04/21/2019 2:57 PM CDT EXAM: ??ERCP HISTORY: Follow-up sphincterotomy. COMPARISON: ??ERCP dated 04/19/2019. FINDINGS: Endoscopic catheterization of the pancreatic and bile ducts was performed by Dr. Shelby ??three images are presented for interpretation. The first image is a marine electronics repairer radiograph which demonstrates pancreatic and biliary duct [...] for interpretation. The first image is a marine electronics repairer radiograph which demonstrates pancreatic and biliary duct [...] 04/21/2019 8:02 AM Admit Type: Inpatient Room: [facility] Date of : 1970 Instrument Name: [id number] Gender: Female Note Status: Finalized Procedure: ERCP [...] One biliary stent was visible on the marine electronics repairer film. The esophagus was successfully intubated under [...] previously discussed. Start afat-sensible diet using preferentially [place] 3-rich sources,healthier and in our experience more [...] Amylase 157(H) 30 - 99 Units/L [facility] Blood specimen (specimen) 04/20/2019 4:06 PM CDT 04/20/2019 4:42 PM CDT Jim Shelby MD LAB BLOOD ORDERABLES Final Result Performing Organization Address [facility] Co de Phone Number [facility] [address] [place] [address] * eGFR (04/20/2019 6:26 AM CDT) eGFR 104 mL/min/1.7 3 m2 [facility] Comment: Interpretive Data Reference Interval Normal ?>/= 90 mL/min/1.73m2 Mildly decreased* ? 60 - 89 mL/min/1.73m2 Mildly to moderately decreased ?45 - 59 mL/min/1.73m2 Moderately to severely decreased ??30 - 44 mL/min/1.73m2 Severely decreased ?15 - 29 mL/min/1.73m2 Kidney Failure ?< 15 ??mL/min/1.73m2 *Relative to young adult level If -Armenian multiply value by 1.16. Estimated glomerular filtration [...] BLOOD ORDERABLES Final Result Performing Organization Address [facility] Co de Phone Number [facility] [address] [place] [address] * Differential, auto (04/20/2019 6:26 AM CDT) Neutrophil abs 5.8 1.7 - 6.5 K/cumm [facility] Imm gran abs 0.0 0.0 - 0.1 K/cumm [facility] Lymphocyte abs 0.8 0.8 - 3.3 K/cumm [facility] Monocyte abs 0.6 0.2 - 0.8 K/cumm [facility] Eosinophil abs 0.0 0.0 - 0.5 K/cumm [facility] Basophil abs 0.0 0.0 - 0.1 K/cumm [facility] Neutrophil pct 80.0 % [facility] Comment: Interpretive Data Percent cell count reference ranges are not reported, since discordance with absolute values may lead to misinterpretation of CBC data. Current Interpretive Data was last revised on 2018. Imm gran pct 0.3 % [facility] Comment: Interpretive Data Percent cell count reference ranges are not reported, since discordance with absolute values may lead to misinterpretation of CBC data. Current Interpretive Data was last revised on 2018. Lymphocyte pct 10.8 % [facility] Comment: Interpretive Data Percent cell count reference ranges are not reported, since discordance with absolute values may lead to misinterpretation of CBC data. Current Interpretive Data was last revised on 2018. Monocyte pct 8.5 % [facility] Comment: Interpretive Data Percent cell count reference ranges are not reported, since discordance with absolute values may lead to misinterpretation of CBC data. Current Interpretive Data was last revised on 2018. Eosinophil pct 0.3 % [facility] Comment: Interpretive Data Percent cell count reference ranges are not reported, since discordance with absolute values may lead to misinterpretation of CBC data. Current Interpretive Data was last revised on 2018. Basophil pct 0.1 % [facility] Comment: Interpretive Data Percent cell count reference ranges are not reported, since discordance with absolute values may lead to misinterpretation of CBC data. Current Interpretive Data was last revised on 2018. Blood specimen (specimen) 04/20/2019 6:26 AM CDT 04/20/2019 6:38 AM CDT us Jim Shelby MD LAB BLOOD ORDERABLES Final Result [facility] [address] Department [place] [address] * (ABNORMAL) Comprehensive metabolic panel (04/20/2019 6:26 AM CDT) Sodium 137 135 - 145 mmol/L [facility] Potassium, pl 3.5 3.3 - 4.9 mmol/L [facility] Chloride 106 97 - 110 mmol/L [facility] CO2 21(L) 22 - 32 mmol/L [facility] Anion gap 10 2 - 15 mmol/L [facility] BUN 9 8 - 25 mg/dL [facility] Creatinine 0.67 0.60 - 1.10 mg/dL [facility] Glucose 134 70 - 199 mg/dL [facility] Comment: Interpretive Data Fasting glucose [...] 2017. Calcium 8.1(L) 8.5 - 10.3 mg/dL [facility] Bilirubin, total 1.1 0.1 - 1.2 mg/dL [facility] Protein, pl 5.2(L) 6.5 - 8.5 g/dL [facility] Albumin 3.6 3.5 - 5.0 g/dL [facility] Alk phos 50 40 - 130 Units/L [facility] ALT 16 7 - 45 Units/L [facility] AST 25 10 - 45 Units/L [facility] Blood specimen (specimen) 04/20/2019 6:26 AM CDT 04/20/2019 6:37 AM CDT Jim Shelby MD LAB BLOOD ORDERABLES Final Result Performing Organization Address [facility] Co de Phone Number [facility] [address] [place] [address] * (ABNORMAL) CBC with auto differential (04/20/2019 6:26 AM CDT) WBC 7.2 3.8 - 9.9 K/cumm [facility] Hgb 13.3 11.9 - 15.5 g/dL [facility] Hct 39.0 35.6 - 45.5 % [facility] Plt 141(L) 150 - 400 K/cumm [facility] MPV 11.4 9.1 - 12.3 fL [facility] RBC 4.32 3.90 - 5.20 M/cumm [facility] MCV 90.3 81.3 - 96.4 fL [facility] MCH 30.8 27.1 - 33.3 pg [facility] MCHC 34.1 32.3 - 35.7 g/dL [facility] RDW CV 11.9 11.1 - 14.9 % [facility] RDW SD 39.3 35.7 - 48.1 fL [facility] NRBC abs 0.00 0.00 - 0.01 K/cumm [facility] Blood specimen (specimen) 04/20/2019 6:26 AM CDT 04/20/2019 6:38 AM CDT Jim Shelby MD LAB BLOOD ORDERABLES Final Result [facility] [address] [place] [address] * [place] ERCP Biliary and Pancreatic (04/19/2019 [...] Negative conf by Urease Yes Lot Number [id number] Biopsy 04/19/2019 10:2 5 AM CDT Jim Shelby MD POINT OF CARE TEST ORDERABL ES Final Result * ERCP (04/19/2019 9:46 AM CDT) Anatomical Region Laterality Modality Other Narrative Procedure Note Jim Shelby MD - 04/19/2019 9:46 AM CDT ENDOSCOPY LAB Patient Name: Pina Reynaga Procedure Date: 04/19/2019 9:46 AM Admit Type: Outpatient Room: [facility] Date of : 1970 Instrument Name: [id number] Gender: Female Note Status: Finalized Procedure: ERCP [...] was obtained to r/o H.Pylori. ERCP: The marine electronics repairer film appeared essentially normal. The esophagus was [...] headaches, fever, Starting on Fri04/19/19 at 1316 Given 04/21/2019 6:27 AM CDT [...] (50 mcg/mL) infusion (premix) Continuous dose: None, SOFT CRAB SHEDDER dose: 15 mcg, SOFT CRAB SHEDDER lockout: 10 Minutes, 1 hour limit: 90 [...] ercp 0920 (New Bag - Provider: Marie Faulkner, GYPSY) Bifidobacterium infantis (ALIGN) capsule 4 mg 4 mg, oral, Daily, First dose on Fri04/19/19 at 1430 1655 (Given - Provider: Isaac Moyer RN) 0955 (Given - Provider: Elise Lau, GYPSY) 0742 (Given - Provider: Elise Lau, GYPSY)0834 (MAR Hold - Provider: Automatic Transfer Provider - Reason: Patient not available)1159 (MAR Unhold - Provider: Automatic Transfer Provider) cetirizine (ZyrTEC) tablet 10 mg 10 mg, oral, Daily, First dose on Fri04/19/19 at 1430 1654 (Given - Provider: Isaac Moyer, GYPSY) 0955 [...] (DEC Unhold - Provider: Automatic Transfer Provider) niacin ER (NIASPAN) extended release capsule 250 mg 250 mg, oral, Daily, First dose on Fri04/19/19 at 2100, Do not crush, chew, cut, dissolve, open or otherwise manipulate tablet/capsule. 2125 (Not Given - Provider: Rubia Farooq RN - Reason: Patient/family refused) 2055 (Not Given - Provider: Rubia Farooq RN - Reason: Patient/family refused) 0834 (MAR Hold - Provider: Automatic Transfer Provider - Reason: Patient not available)1159 (MAR Unhold - Provider: Automatic Transfer Provider) pantoprazole DR (PROTONIX) extended release tablet 40 mg 40 mg, oral, 2 times daily, First dose on Fri04/19/19 at 1430, Do not crush, chew, cut, dissolve, open or otherwise manipulate tablet/capsule., Indications: Treatment of Non-Bleeding Gastric Disorder 1654 (Given - Provider: Isaac Moyer RN)2106 (Given - Provider: Rubia Farooq RN) 0955 (Given - Provider: Elise Lau RN)2055 (Given - Provider: Rubia Farooq RN) 0742 (Given - Provider: Elise Lau RN)0834 (MAR Hold - Provider: Automatic Transfer Provider [...] mcg/mL) infusion (premix) (CANCELED) Continuous dose: None, SOFT CRAB SHEDDER dose: 15 mcg, SOFT CRAB SHEDDER lockout: 10 Minutes, 1 hour limit: 90 mcg, intravenous, Continuous, Starting on Fri04/19/19 at 1115, Until Fri04/21/19 at 0845, 50 mL, Indications: Pain, Routine 1154 (New Bag - Provider: Gabriela Carlos, GYPSY)2004 (Rate/Dose Verify - Provider: Rubia Farooq, GYPSY) 0632 (Rate/Dose Verify - Provider: Shabbir Simms, GYPSY)0854 (Stopped (Dual Sign) - Provider: Elise Lau, GYPSY) sodium chloride 0.9% infusion (CANCELED) 125 mL/hr, intravenous, Continuous, Starting on Fri04/19/19 at 1400 1655 (New Bag - Provider: Isaac Moyer RN)2108 (New Bag - Provider: Rubia Farooq, GYPSY) 0457 (New Bag - Provider: Rubia Farooq, GYPSY)1346 (New Bag - Provider: Elise Lau, GYPSY)2200 (New Bag - Provider: Rubia Farooq, GYPSY) [...] 0627 (Given - Provider: Shabbir Simms, GYPSY)0834 (MAR Hold - Provider: Automatic Transfer Provider - Reason: Patient not available)1159 (MAR Unhold - Provider: Automatic Transfer Provider) benzocaine-menthol [...] 2 mg/minute 1121 (Given - Provider: Gabriela Carlos RN) LORazepam (ATIVAN) injection 1 mg 1 mg, [...] 0628 (Given - Provider: Shabbir Simms, GYPSY)0834 (DEC Hold - Provider: Automatic Transfer Provider - Reason: Patient not available)1159 (DEC Unhold - Provider: Automatic Transfer Provider) ondansetron (ZOFRAN) injection 4 mg (CANCELED) 4 mg, intravenous, Administer over 2 Minutes, Every 30 min PRN, nausea, vomiting, Starting on Fri04/19/19 at 1042, Recovery (GI) 1206 (Due)1211 (Given - Provider: Gabriela Kallie Carlos, RN) ondansetron (ZOFRAN) injection 4 mg 4 mg, intravenous, Administer over 2 Minutes, 4 times daily PRN, nausea, vomiting, Starting on Fri04/19/19 at 1316 0834 (DEC Hold - Provider: Automatic Transfer Provider - Reason: Patient not available)1023 (Given - Provider: Tiffani Lane CRNA)1159 (DEC Unhold - Provider: Automatic Transfer Provider) rizatriptan INSURANCE VERIFICATION SPECIALIST (MAXALT-INSURANCE VERIFICATION SPECIALIST) disintegrating tablet 10 mg 10 mg, oral, [...] On Fri04/21/19 at 0728, For 1 occurrence, scallop dredger to GI lab And sodium chloride 0.9% [...] in so dium chloride (premix) 80 mg 1 04/19/2019 Lactated Ringer's (LR) infusion 1 9 magnesium D-zlzyya-isfhtrgvl de 42 mg (500 mg)- 250 mg tablet extended release 250 mg 1 04/19/2019 naloxone (NARCAN) 0.4 mg/mL injection 0.04-0.4 mg 1 04/19/2019 niacin ER (NIASPAN) extended release capsule 250 mg 1 04/19/2019 ondansetron (ZOFRAN) injection 4 mg 1 04/19 rizatriptan INSURANCE VERIFICATION SPECIALIST (MAXALT-INSURANCE VERIFICATION SPECIALIST) disintegrating tablet 10 mg 1 04/19/2019 Diet Count Last Ordered Date First Orde red Date ADULT DISCHARGE DIET 1 04/21/2019 Nursing Count Last Ordered Date First Orde red Date DISCHARGE ACTIVITY 1 04/21/2019 FOLLOW UP WITH PROVIDER 04/21/2019 MAINTAIN IV ACCESS 04/21/2019 VERIFY INFORMED CONSENT 04/21/[address] SEQUENTIAL COMPRESSION DEVICE 1 04/19 Consult Count Last Ordered Date First Orde red Date IP CONSULT TO NUTRITION SERVICES 1 04/19/20 19 Admission Count Last Ordered Date First Orde red Date ASSIGN PATIENT STATUS 04/19/2019 Case Request Count Last Ordered Date First Orde red Date CASE REQUEST GI 04/21/2019 documented in this encounter Care Teams Supervisor Area Relationship Specialty Start Date End Date Jonathan Amado MD PCP - General 03/18/17 documented as of this encounter
--- OUTSIDE RECORDS SUMMARY | 2024-10-17 03:15 | XMS_ITS | Encounter Summary ---
Author Organization [facility] Healthcare Address [address] [place] [address] Care Team Providers Care Machine Adjuster Leader Case Trim Name Role Phone Jonathan Amado MD Primary Care Provider [phone] [phone] Reason for Referral * Diagnostic Imaging (Routine) - Closed Specialty Diagnoses / Procedures Referred By Chidi t Referred To Contact Diagnoses Left hip pain Procedures X-ray hip left 2+ views Grupo Reese MD Phone: tel: fax: [address] [phone] Referral ID Status Reason Start Date Expiration Date Visits Re quested Visits Authorized [id number] Closed 06/01/2018 12/11/2019 1 1 Reason for Visit * Diagnostic Imaging (Routine) - Closed Specialty Diagnoses / Procedures Referred By Chidi sorensen Referred To Contact Diagnoses Left hip pain Procedures X-ray hip left 2+ views Grupo Reese MD Phone: tel: fax: [address] [phone] Referral ID Status Reason Start Date Expiration Date Visits Re quested Visits Authorized [id number] Closed 06/01/2018 12/11/2019 1 1 Encounter Details Date Type Department Care Team (Latest Contact Info) Description 06/01/2018 4:36 PM CDT - 06/01/2018 11:59 PM CDT Hospital Encounter [facility] [address] [place] [address] Grupo Reese MD [address] [facility] [address]6B[address] [place] [address] Left hip pain Discharge Disposition: Discharge to home or self care Social History Tobacco Use Types Packs/Day Years Used Date Smoking Tobacco: Never Smokeless Tobacco: Never Comments Unknown Sex and Gender Information Value Date Recorded Sex Assigned at Not on file 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 Irrigate half in each nostril twice daily. 04/21/2018 06/26/2018 EPINEPHrine 0.3 mg/0.3 mL auto-injection syringeIndicatio ns:Anaphylaxis Inject 0.3 mg into the muscle as instructed. 12/19/2017 05/28/2019 melatonin 10 mg capsule Take 10 mg by mouth. 08/21/2018 pseudoephedrine (SUDAFED) 30 mg tabletIndication s:Nasal Congestion Take 30 mg by mouth every 4 (four) hours as needed 05/05/2019 rizatriptan (MAXALT) 10 mg tabletIndication s:Migraine Take 10 mg by mouth once as needed 07/17/2022 tobramycin, bulk, 900 mcg/mg (not less than, [facility]) powder Add 1 capsule of 20mg to 240ml saline (patient may mix own saline). Irrigate half in each nostril twice daily. 04/21/2018 06/26/2018 documented as of this encounter Discharge Disposition Disposition Code Departure Means Destination Discharge to home or self care documented in this encounter Plan of Treatment Not on file documented as of this encounter Procedures Procedure Name Priority Date/Time Associated Diagnosis Comments XR HIP LEFT 2 OR 3 VIEWS Schedule Routine, Read Routine (OP Routine) 06/01/2018 4:51 PM CDT Left hip pain documented in this encounter Results * X-ray hip left 2+ views (06/01/2018 [...] this encounter Visit Diagnoses Diagnosis Left hip pain Pain in joint, pelvic region and thigh documented in this encounter Care Teams Machine Adjuster Leader Case Trim Relationship Specialty Start Date End Date Jonathan Amado MD PCP - General 6/6/17 documented as of this encounter
--- OUTSIDE RECORDS SUMMARY | 2024-10-17 03:15 | XMS_ITS | Encounter Summary ---
Author Organization [facility] Healthcare Address [address] [place] [address] Care Team Providers Care Assistant Operator Name Role Phone Jonathan Amado MD Primary Care Provider [phone] [phone] Encounter Details Date Type Department Care Team (Late st Contact Info) Description 08/21/2018 1:45 PM STALLION KEEPER Anesthesia Event [facility] [address] [place] [id number] Raina Flores MD [address] [facility] [place] [address] Drake Swan MD [address] [place] [address] Anesthesia Record Procedure Summary Procedure Name Responsible Anesthesiologist Anesthesia Start Time Anesthesia Stop Time COLON BIOPSY (Left: Colon) Raina Flores MD 08/21/18 1345 08/21/18 1420 Events Date Time Event Comment 08/21/2018 1243 1344 In Room 1345 An Start 1346 An Start Data 1346 Patient Positioned Laterally 1350 Bite Block Placed 1350 An Induction The patient was reevaluated immediately before moderate or deep sedation use and before anesthesia induction. 1351 Proc Start 1351 Anesthesia Ready 1412 Proc Fin 1415 Out of Room 1415 an stop data 1418 Handoff to RN I completed my handoff [...] disposition at the time of handoff: other 1420 An Stop 142 Release from care Meds Name Total lidocaine (cardiac) syringe 2 % 3 mL propofol 400 mg sodium chloride 0.9% infusion 500 mL * Agents Name O2 * Blood No blood administrations on file. Lines, Drains, and Airways Type Details Placement Removal Peripheral IV Placement Date: 06/30; Placement Time: 1235; Catheter Size: 22 G; Orientation: Right; Location: Wrist; Site Prep: Chlorhexidine; Insertion Attempts: 1; Patient Tolerance: Tolerated well; Removal Date: 08/21/18; Removal Time: 1454 08/21/18 1235 by Soledad Velazquez RN 08/21/18 1454 by Sudha Sharp RN documented in this encounter Social History Tobacco Use Types Packs/Day Years Used Date Smoking Tobacco: Never Smokeless Tobacco: Never Alcohol Use Standard Drinks/Week Comments No 0 (1 standard drink = 0.6 oz pur e alcohol) Comments No Sex and Gender Information Value Date Recorded Sex Assigned at Not on file Legal Sex Female 9:51 AM STALLION KEEPER Gender Identity Not on file Sexual Orientation Not on file documented as of this encounter OR Notes * Anesthesia Postprocedure Evaluation - Pina Ellis CRNA - 08/21/2018 2:20 PM CST Patient: Pina Barrios Ronnell Procedure Summary Date: 08/21/18 [place] / [place] [facility] Anesthesia Start: 1345 Anesthesia Stop: 142 Procedures: COLON BIOPSY (Left Colon) ESOPHAGOGASTRODUODENOSCOPY BIOPSY (Left ) Diagnosis: (R19.7 R10.30) Provider: Jim Shelby MD Responsible Provider: Raina Flores MD Anesthesia Type: general/TIVA ASA Status: 2 Anesthesia Type: general/TIVA Last vitals BP 93/65 Pulse 58 Resp 13 SpO2 99% Anesthesia Post Evaluation Patient location: GI recovery area. 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 female Procedure(s): Colonoscopy W/BX Esophagogastroduodenoscopy W/DUO/GASTRIC BX HISTORY Past Medical History Respiratory Respiratory system: negative Hepatic / Heme Hepatic/Heme system: negative Renal / Renal/ system: negative Patient Active Problem List Diagnosis ??? Allergic [...] pain - (Added by TW Conv) ??? GERD (gastroesophageal reflux disease) ??? Irritable [...] Bilateral - (Added by TW Conv) ??? MT DILATION/CURETTAGE,DIAGNOSTIC Dilation And Curettage - (Added by TW Conv) ??? MT ERCP W/SPHINCTEROTOMY/PAPILLOTOMY ERCP With Endoscopic Sphincterotomy - (Added by TW Conv) ??? MT HYSTEROSCOPY,W/ENDO BX Hysteroscopy - (Added by TW Conv) ??? MT LAP,DIAGNOSTIC ABDOMEN Laparoscopy (Diagnostic) - 1998 (Added by TW Conv) ??? MT REMOVAL OF OVARIAN CYST(S) Ovarian Cystectomy - (Added by TW Conv) ??? MT REMOVAL OF OVARY(S) Oophorectomy - 1999 LEFT REMOVED 2011 RIGHT REMOVED (Added by TW Conv) ? ? MT REMOVAL OF TONSILS,<12 Y/O Tonsillectomy - (Added by TW Conv) ??? MT TOTAL ABDOM HYSTERECTOMY Hysterectomy - 2001 (Added by TW Conv) ??? SINUS SURGERY Sinus Surgery - (Added by TW Conv) ??? UPPER GASTROINTESTINAL ENDOSCOPY OB History Para Term AB Living 2 2 2 0 0 2 SAB TAB Ectopic Multiple Live Births 0 0 0 0 2 Allergies Allergen Reactions ??? Ciprofloxacin Rash [...] tablet cyanocobalamin, vitamin B-12, 1,000 mcg capsule magnesium Q-wozxdb-qguhqiqrlji 42 mg (500 mg)- 250 mg tablet extended release pantoprazole DR (PROTONIX) 40 mg EC tablet pseudoephedrine (SUDAFED) 30 mg tablet rizatriptan (MAXALT) 10 mg tablet VAGIFEM 10 mcg tablet melatonin 10 mg capsule EPINEPHrine 0.3 mg/0.3 mL auto-injection syringe OXcarbazepine (TRILEPTAL) 150 mg tablet Current Facility-Administered Medications: ??? sodium chloride 0.9% infusion, 30 mL/hr, intravenous, Continuous, Last Rate: 30 mL/hr at 08/21/18 1236, 30 mL/hr at 08/21/18 1236 Social History Smoking Status ??? Never Smoker Smokeless Tobacco ??? Never Used Alcohol Use No Drug Use No Family History Problem Relation [...] (Added by TW Conv) PAT Physical Exam Vitals: 08/21/18 1231 BP: 107/80 Pulse: 73 Resp: 18 SpO2: 100% PT: No results found for requested labs [...] Medical history, medications, and allergies reviewed. Attestation: With today's edits, I endorse the findings of the anesthesia pre-evaluation assessment dated: 08/21/2018. Airway Exam: Mallampati: II Cervical ROM: FROM TM distance: >4 Jaw ROM: full Cardiovascular Exam: Rate: regular Rhythm: regular Pulmonary Exam: LCTA, bilat Current state: Patient's current state is interactive and cooperative. Anesthesia Plan ASA 2 Planned anesthesia: General/TIVA Team communication plan: mask Induction: Induction: intravenous. Postoperative Plan: No postoperative mechanical ventilation intended. Patient's planned disposition post procedure is Outpatient. Informed Consent: Anesthesia plan and risks discussed with patient. Plan and Consent Comments: Backup plan is a general anesthetic with or without an endotracheal tube or LMA as required Consent and Attending signature: I and/or my designee have discussed the anesthesia plan, benefits, possible alternatives, parental presence at time of induction (if indicated), and clinically relevant risks that may include dental injury, unintentional awareness, and/or other complications. The patient and/or parent/legal guardian understand, and agree to proceed. All questions answered. LION KEEPER documented in this encounter Plan of Treatment Not on file documented as of this encounter Visit Diagnoses Not on filedocumented in this encounter Administered Medications Inactive Administered Medications - up to 3 most recent administrations Medication Order MAR Action Action Date Dose Rate Site lidocaine (cardiac) (XYLOCAINE) preservative free injection intravenous, As needed, Starting on Fri08/21/18 at 1350, Anesthesia Intra-op, Indications: Ventricular ArrhythmiasIndications:Ventricular Arrhythmias Given 08/21/2018 1:50 PM STALLION KEEPER 3 mL propofol (DIPRIVAN) IV As needed, Starting on Fri08/21/18 at 1350, Anesthesia Intra-op Given 08/21/2018 1:50 PM STALLION KEEPER 400 mg documented in this encounter Orders Medications Ordered That Don ht Not Have Been Administered Count Last Ordered Date First Ordered Date propofol (DIPRIVAN) IV 1 08/21/2018 documented in this encounter Care Teams Assistant Operator Relationship Specialty Start Date End Date Jonathan Amado MD PCP - General 03/18/17 documented as of this encounter
--- OUTSIDE RECORDS SUMMARY | 2024-10-17 03:15 | XMS_ITS | Encounter Summary ---
Author Organization [facility] Healthcare Address [address] [place] [address] Care Team Providers Care Tar Heater Name Role Phone Jonathan Amado MD Primary Care Provider [phone] [phone] Encounter Details Date Type Department Care Team (Latest Contact Info) Description 04/21/2019 8:30 AM CDT - 04/21/2019 11:59 PM CDT Hospital Encounter [facility] [address] [place] [address] Jim Shelby MD [address] [facility] [address] [place] [address] Discharge Disposition: Discharge to home or self care Social History Tobacco Use Types Packs/Day Years Used Date Smoking Tobacco: Never Smokeless Tobacco: Never Alcohol Use Standard Drinks/Week Comments No 0 (1 standard drink = 0.6 oz pur e alcohol) Comments No Sex and Gender Information Value Date Recorded Sex Assigned at Not on file 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 Gender Identity Not on file Sexual [...] 10 days 20 tablet 04/21/2019 9 magnesium O-wlkwif-boqrqtxped e 42 mg (500 mg)- 250 mg [...] Associated Diagnosis Comments ERCP IP Routine 04/21/2019 10:27 AM CDT Abdominal pain documented in this encounter Visit Diagnoses Not on filedocumented in this encounter Administered Medications Inactive Administered Medications - up to 3 most recent administrations Medication Order MAR Action Action Date Dose Rate Site ioversol (OPTIRAY 350) injection 50 mL 50 mL, intraductal, Once in imaging, contrast, Starting on Fri04/21/19 at 1025, For 1 dose Given 04/21/2019 10:25 AM CDT 8 mL documented in this encounter Care Teams Tar Heater Relationship Specialty Start Date End Date Jonathan Amado MD PCP - General 03/18/17 documented as of this encounter
--- OUTSIDE RECORDS SUMMARY | 2024-10-17 03:15 | XMS_ITS | Encounter Summary ---
Author Organization [facility] Care Team Providers Care Transportation Design Engineer Name Role Phone Jonathan Amado MD Primary Care Provider [phone] [phone] Encounter Details Date Type Department Care Team (Latest Contact Info) Description 04/19/2019 Travel Social History Tobacco Use Types Packs/Day Years Used Date Smoking Tobacco: Never Smokeless Tobacco: Never Alcohol Use Standard Drinks/Week Comments No 0 (1 standard drink = 0.6 oz pur e alcohol) Comments No Sex and Gender Information Value Date Recorded Sex Assigned at Not on file Legal Sex Female 9:51 AM FACE BOSS Gender Identity Not on file Sexual Orientation Not on file documented as of this encounter Plan of Treatment Not on file documented as of this encounter Visit Diagnoses Not on filedocumented in this encounter Care Teams Transportation Design Engineer Relationship Specialty Start Date End Date Jonathan Amado MD PCP - General 03/18/17 documented as of this encounter
--- OUTSIDE RECORDS SUMMARY | 2024-10-17 03:15 | XMS_ITS | Encounter Summary ---
Author Organization [facility] Healthcare Address [address] [place] [address] Care Team Providers Care Continuity Director Name Role Phone Jonathan Amado MD Primary Care Provider [phone] [phone] Encounter Details Date Type Department Care Team (Late st Contact Info) Description 04/21/2019 10:18 AM CDT Anesthesia Event [facility] [address] [place] [address] Grupo Llanos MD [facility] [place] [address] Anesthesia Record Procedure Summary Procedure Name Responsible Anesthesiologist Anesthesia Start Time Anesthesia Stop Time ENDO ENDOSCOPIC RETROGRADE CHOLANGIOPANCREATOGRAPHY WITH REMOVAL FOREIGN BODY/STENT Grupo Llanos MD 04/21/19 1018 04/21/19 1032 Events Date Time Event Comment 04/21/2019 0931 1017 In Room 1018 An Start 1018 An Start Data 1023 Bite Block Placed 1023 An Induction The patient was reevaluated immediately before moderate or deep sedation use and before anesthesia induction. 1023 Anesthesia Ready 1024 Proc Start 1027 Proc Fin 1028 Out of Room 1029 an stop data 1032 Handoff to RN I completed my handoff [...] Patient disposition at the time of handoff: PACU 1032 An Stop Meds Name Total lidocaine (cardiac) syringe 2 % 5 mL propofol 150 mg ondansetron (ZOFRAN) injection 4 mg 4 mg sodium chloride 0.9% infusion 200 mL * Agents Name O2 * Blood No blood administrations on file. Lines, Drains, and Airways Type Details Placement Removal Peripheral IV Placement Date: 04/19/19; Placement Time: 921; Change Due: 04/23/19; Catheter Size: 20 G; Orientation: Right; Location: Wrist; Site Prep: Chlorhexidine; Insertion Attempts: 1; Patient Tolerance: Tolerated well; Removal Date: 04/21/19; Removal Time: 14404/19/19921 by Marie Faulkner RN 04/21/191440 by Elise Huber RN documented in this encounter Social History Tobacco Use Types Packs/Day Years Used Date Smoking Tobacco: Never Smokeless Tobacco: Never Alcohol Use Standard Drinks/Week Comments No 0 (1 standard drink = 0.6 oz pur e alcohol) Comments No Sex and Gender Information Value Date Recorded Sex Assigned at Not on file 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 Gender Identity Not on file Sexual Orientation Not on file documented as of this encounter OR Notes * Anesthesia Postprocedure Evaluation - Tiffani Lane CRNA - 04/21/2019 10:32 AM CDT Patient: Pina Reynaga Procedure Summary Date: 04/21/19 [place] / [place] [facility] Anesthesia Start: 1018 Anesthesia Stop: 103 Procedure: ENDO ENDOSCOPIC RETROGRADE CHOLANGIOPANCREATOGRAPHY WITH REMOVAL FOREIGN BODY/STENT (N/A) Diagnosis: Abdominal pain (Abdominal pain [R10.9]) Provider: Jim Shelby MD Responsible Provider: Grupo Llanos MD Anesthesia Type: general/TIVA ASA Status: 2 Anesthesia Type: general/TIVA Last vitals BP 124/88 Pulse 90 Temp 36.4 ??C (97.5 ??F) (Tympanic) Resp 20 SpO2 99% Anesthesia Post Evaluation Patient location: GI recovery area. Patient participation: complete - patient participated Level of consciousness: arouses rn lactation and follows simple commands Pain management: adequate Airway patency: adequate Anesthetic complications: no Cardiovascular status: acceptable Respiratory status: acceptable Hydration status: acceptable Pt is: normothermic Nausea/Vomiting status: none Comments: BP 124/88 Pulse 90 Temp 36.4 ??C (97.5 ??F) (Tympanic) Resp 20 Ht 162.6 cm (5' 4 ) Wt 70.3 kg (155 lb) SpO2 99% ? No BMI 26.61 kg/m?? * Anesthesia Preprocedure Evaluation - Grupo Llanos MD - 04/21/2019 9:19 AM CDT Anesthesia Evaluation Pina Reynaga is a 49 y.o. female Procedure(s): ERCP Pre-Op Diagnosis Codes: * Abdominal pain [R10.9] HISTORY Past Medical History Gastrointestinal + GERD (h/o ulcer) - on daily therapy. Musculoskeletal/Pain + Chronic pain - fibromyalgia. Functional Capacity Functional capacity: 4-6 METs Review of Systems + chronic pain Patient Active Problem List Diagnosis ??? Allergic [...] Memory loss ??? Fatigue ??? Abdominal pain Past Medical History: Diagnosis Date ??? Cervicalgia [...] EPINEPHrine 0.3 mg/0.3 mL auto-injection syringe magnesium L-kqjgrm-aejamzrknjj 42 mg (500 mg)- 250 mg tablet extended release pantoprazole DR (PROTONIX) 40 mg EC tablet pseudoephedrine (SUDAFED) 30 mg tablet rizatriptan (MAXALT) 10 mg tablet VAGIFEM 10 mcg tablet Current Facility-Administered Medications: ??? [MAR Hold] acetaminophen (TYLENOL) tablet 650 mg, 650 mg, oral, Q4H PRN, 650 mg at 04/21/19626 ??? [DEC Hold] benzocaine-menthol (CEPACOL) lozenge 1 lozenge, 1 lozenge, mouth/throat, Q2H PRN ??? [DEC Hold] Bifidobacterium infantis (ALIGN) capsule 4 mg, 4 mg, oral, Daily, 4 mg at 04/21/19741 ??? [DEC Hold] cetirizine (ZyrTEC) tablet 10 mg, 10 mg, oral, Daily, 10 mg at 04/21/19741 ??? [DEC Hold] cyanocobalamin (Vitamin B-12) tablet 1,000 mcg, 1,000 mcg, oral, Daily, 1,000 mcg at04/21/19741 ??? [DEC Hold] famotidine (PEPCID) tablet 20 mg, 20 mg, oral, Q12H PRN ??? [MAR Hold] LORazepam (ATIVAN) injection 1 mg, 1 mg, intravenous, Q6H PRN, 1 mg at 04/21/19627 ??? [DEC Hold] magnesium oxide (MAG-OX) tablet 400 mg, 400 mg, oral, Daily, 400 mg at 04/21/19741 ??? [MAR Hold] niacin ER (NIASPAN) extended release capsule 250 mg, 250 mg, oral, Daily ??? [DEC Hold] ondansetron (ZOFRAN) injection 4 mg, 4 mg, intravenous, QID PRN ??? [DEC Hold] pantoprazole DR (PROTONIX) extended release tablet 40 mg, 40 mg, oral, BID, 40 mg at04/21/19 0742 ??? [DEC Hold] rizatriptan CONTINUOUS DRIER HELPER (MAXALT-CONTINUOUS DRIER HELPER) disintegrating tablet 10 mg, 10 mg, oral, Q2H PRN ??? Saline lock IV, , , Once AND sodium chloride 0.9% flush 0.5-20 mL, 0.5- 20 mL, intra-catheter, Q8H MIC AND sodium chloride 0.9% flush 0.5-20 mL, 0.5-20 mL, intra-catheter, PRN ??? sodium chloride 0.9% infusion, 30 mL/hr, intravenous, Continuous, Last Rate: 30 mL/hr at 04/21/19837, 30 mL/hr at 04/21/19837 Social History Tobacco Use Smoking Status Never [...] by TW Conv) PAT Physical Exam Vitals: 04/21/19 0507 04/21/19 0805 04/21/19 0838 BP: 127/87 116/60 124/88 Pulse: 85 73 90 Resp: 16 20 20 Temp: 37 ??C (98.6 ??F) 36.4 ??C (97.5 ??F) SpO2: 98% 100% 99% PT: No results found for requested labs within last 720 hours. INR: No results found for requested labs within last 720 hours. APTT: No results found for requested labs within last 720 hours. Hgb A1C: No results found for requested labs within last 720 hours. CBC RBC: 04/20/2019: 4.32 M/cumm RDW: No results found for requested labs within last 720 hours. MCHC: 04/20/2019: 34.1 g/dL MCH: 04/20/2019: 30.8 pg MCV: 04/20/2019: 90.3 fL Hct: 04/20/2019: 39.0 % Hgb: 04/20/2019: 13.3 g/dL WBC: 04/20/2019: 7.2 K/cumm MPV: 04/20/2019: 11.4 fL Platelets: 04/20/2019: 141 K/cumm* RDW CV: 04/20/2019: 11.9 % RDW Sd: 04/20/2019: 39.3 fL BMP Glucose: 04/20/2019: 134 mg/dL Calcium: 04/20/2019: 8.1 mg/dL* Sodium: 04/20/2019: 137 mmol/L Potassium: 04/20/2019: 3.5 mmol/L CO2: 04/20/2019: 21 mmol/L* Chloride: 04/20/2019: 106 mmol/L BUN: 04/20/2019: 9 mg/dL Creatinine: 04/20/2019: 0.67 mg/dL DOS Physical Exam Medical history, medications, and allergies reviewed. Attestation: This PAT evaluation 04/21/2019. Airway Exam: Mallampati: I Cervical ROM: FROM TM distance: normal Jaw ROM: full Cardiovascular Exam: Rate: regular Rhythm: regular Pulmonary Exam: LCTA, bilat Dental Exam: Appears intact Current state: Patient's current state is cooperative and interactive. Anesthesia Plan ASA 2 My patient is approved for the Anesthesia Controlled Medication protocol when under care of a BILLBOARD INSTALLER Planned anesthesia: General/TIVA Induction: Induction: intravenous. Postoperative Plan: No plan for postoperative opioid use. No postoperative mechanical ventilation intended. Patient's planned disposition post procedure is Floor. Informed Consent: Anesthesia plan and risks discussed with patient. Consent and Attending signature: I and/or my [...] free injection intravenous, As needed, Starting on Fri04/21/19 at 1023, Anesthesia Intra-op, Indications: Ventricular ArrhythmiasIndications:Ventricula r Arrhythmias Given 04/21/2019 10:23 AM CDT 5 mL ondansetron (ZOFRAN) injection 4 mg 4 mg, intravenous, Administer over 2 Minutes, 4 times daily PRN, nausea, vomiting, Starting on Fri04/19/19 at 1316 Given 04/21/2019 10:23 AM CDT 4 mg propofol (DIPRIVAN) IV intravenous, As needed, Starting on Fri04/21/19 at 1023, Anesthesia Intra-op Given 04/21/2019 10:23 AM CDT 150 mg documented in this encounter Care Teams Continuity Director Relationship Specialty Start Date End Date Jonathan Amado MD PCP - General 03/18/17 documented as of this encounter
--- OUTSIDE RECORDS SUMMARY | 2024-10-17 03:15 | XMS_ITS | Encounter Summary ---
Author Organization [facility] Healthcare Address [address] [place] [address] Care Team Providers Care Ship Joiner Name Role Phone Jonathan Amado MD Primary Care Provider [phone] Encounter Details Date Type Department Care Team (Latest Contact Info) Description 04/19/2019 9:20 AM CDT - 04/19/2019 11:59 PM CDT Hospital Encounter [facility] [address] [place] [address] Jim Shelby MD [address] [facility] [address] [place] [address] Discharge Disposition: Discharge to home or self care Social History Tobacco Use Types Packs/Day Years Used Date Smoking Tobacco: Never Smokeless Tobacco: Never Alcohol Use Standard Drinks/Week Comments No 0 (1 standard drink = 0.6 oz pur e alcohol) Comments No Sex and Gender Information Value Date Recorded Sex Assigned at Not on file Legal Sex Female 9:51 AM [employer] Gender Identity Not on file Sexual Orientation [...] 10 days 20 tablet 04/21/2019 9 magnesium P-wvkvof-qlxxbuickz e 42 mg (500 mg)- 250 mg [...] Date/Time Associated Diagnosis Comments ERCP IP Routine 04/19/2019 10:27 AM CDT Abdominal pain documented in this encounter Visit Diagnoses Not on filedocumented in this encounter Administered Medications Inactive Administered Medications - up to 3 most recent administrations Medication Order MAR Action Action Date Dose Rate Site ioversol (OPTIRAY 350) injection 50 mL 50 mL, intraductal, Once in imaging, contrast, Starting on Fri04/19/19 at 0952, For 1 dose Given 04/19/2019 10:10 AM CDT 16 mL documented in this encounter Care Teams Ship Joiner Relationship Specialty Start Date End Date Jonathan Amado MD PCP - General 03/18/17 documented as of this encounter
--- OUTSIDE RECORDS SUMMARY | 2024-10-17 03:15 | XMS_ITS | Encounter Summary ---
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 care provider will improve Outcome: Progressing Problem: Physical Regulation: Goal: Ability to maintain clinical measurements within normal limits will improve Outcome: Progressing Problem: Infection Risk: Goal: Will remain free from infection Outcome: Progressing Problem: Safety: Goal: Ability to remain free from injury will improve Outcome: Progressing Goal: Will remain free from falls Outcome: Progressing Problem: Self-Care: Goal: Ability to participate in self-care as condition permits will improve Outcome: Progressing Problem: Sensory: Goal: Pain level will decrease Outcome: Progressing Goal: Ability to develop a pain control plan will improve Outcome: Progressing Problem: Skin Integrity: Goal: Risk for impaired skin integrity will decrease Outcome: Progressing Problem: Tissue Perfusion: Goal: Risk factors for ineffective tissue perfusion will decrease Outcome: Progressing Goals: Clinical Goals for the Shift: pain management, IVFs, VSS, monitor labs and rest. Summary: Pt has been resting in bed. She has complained of abd pain after eating clear liquids. GI MD notified. She received oral ativan. Had a CT of her chest/abd/pelvis. IVFs. UAL. VSS. Continuing to monitor. * Plan of Agustin - Amada Steiner - 05/06/2019 2:23 PM CDT Problem: Health Behavior: Goal: Understanding of discharge needs will improve 05/06/2019 1423 by Amada Steiner Outcome: Progressing 05/06/2019 1329 by Amada Steiner Outcome: Progressing Problem: Activity: Goal: Risk for activity intolerance will decrease 05/06/2019 1423 by Amada Steiner Outcome: Progressing 05/06/2019 1329 by Amada Steiner Outcome: Progressing Problem: Lack of Knowledge: Goal: Knowledge of diagnostic tests will improve 05/06/2019 1423 by Amada Steiner Outcome: Progressing 05/06/2019 1329 by Amada Steiner Outcome: Progressing Goal: Knowledge of disease or condition will improve 05/06/2019 1423 by Amada Steiner Outcome: Progressing 05/06/2019 1329 by Amada Steiner Outcome: Progressing Goal: Knowledge of safety precautions will improve 05/06/2019 1423 by Amada Steiner Outcome: Progressing 05/06/2019 1329 by Amada Steiner Outcome: Progressing Goal: Knowledge of the prescribed therapeutic regimen will improve 05/06/2019 1423 by Amada Steiner Outcome: Progressing 05/06/2019 1329 by Amada Steiner Outcome: Progressing Problem: Health Behavior: Goal: Ability to state signs and symptoms to report to health care provider will improve 05/06/2019 1423 by Amada Steiner Outcome: Progressing 05/06/2019 1329 by Amada Steiner Outcome: Progressing Problem: Physical Regulation: Goal: Ability to maintain clinical measurements within normal limits will improve 05/06/2019 1423 by Amada Steiner Outcome: Progressing 05/06/2019 1329 by Amada Steiner Outcome: Progressing Problem: Infection Risk: Goal: Will remain free from infection 05/06/2019 1423 by Amada Steiner Outcome: Progressing 05/06/2019 1329 by Amada Steiner Outcome: Progressing Problem: Safety: Goal: Ability to remain free from injury will improve 05/06/2019 1423 by Amada Steiner Outcome: Progressing 05/06/2019 1329 by Amada Steiner Outcome: Progressing Goal: Will remain free from falls 05/06/2019 1423 by Amada Steiner Outcome: Progressing 05/06/2019 1329 by Amada Steiner Outcome: Progressing Problem: Self-Care: Goal: Ability to participate in self-care as condition permits will improve 05/06/2019 1423 by Amada Steiner Outcome: Progressing 05/06/2019 1329 by Amada Steiner Outcome: Progressing Problem: Sensory: Goal: Pain level will decrease 05/06/2019 1423 by Amada Steiner Outcome: Progressing 05/06/2019 1329 by Amada Steiner Outcome: Progressing Goal: Ability to develop a pain control plan will improve 05/06/2019 1423 by Amada Steiner Outcome: Progressing 05/06/2019 1329 by Amada Steiner Outcome: Progressing Problem: Skin Integrity: Goal: Risk for impaired skin integrity will decrease 05/06/2019 1423 by Amada Steiner Outcome: Progressing 05/06/2019 1329 by Amada Steiner Outcome: Progressing Problem: Tissue Perfusion: Goal: Risk factors for ineffective tissue perfusion will decrease 05/06/2019 1423 by Amada Steiner Outcome: Progressing 05/06/2019 1329 by Amada Steiner Outcome: Progressing Goals: Clinical Goals for the Shift: pain management, IVFs, VSS, monitor labs and rest. Summary: Pt NPO this morning for CT. Pt received Ativan for anxiety at 1355. Pt A&O x4. Husbandat bedside visiting this morning. Will continue to monitor pain and labs. * Plan of Care - Serena Don RN - 05/05/2019 4:55 PM CDT Problem: Health Behavior: Goal: Understanding of discharge needs will improve Outcome: Progressing Problem: Activity: Goal: Risk for activity intolerance will decrease Outcome: Progressing Problem: Lack of Knowledge: Goal: Knowledge of diagnostic tests will improve Outcome: Progressing Goal: Knowledge of disease or condition will improve Outcome: Progressing Goal: Knowledge of safety precautions will improve Outcome: Progressing Goal: Knowledge of the prescribed therapeutic regimen will improve Outcome: Progressing Problem: Health Behavior: Goal: Ability to state signs and symptoms to report to health care provider will improve Outcome: Progressing Problem: Physical Regulation: Goal: Ability to maintain clinical measurements within normal limits will improve Outcome: Progressing Problem: Infection Risk: Goal: Will remain free from infection Outcome: Progressing Problem: Safety: Goal: Ability to remain free from injury will improve Outcome: Progressing Goal: Will remain free from falls Outcome: Progressing Problem: Self-Care: Goal: Ability to participate in self-care as condition permits will improve Outcome: Progressing Problem: Sensory: Goal: Pain level will decrease Outcome: Progressing Goal: Ability to develop a pain control plan will improve Outcome: Progressing Problem: Skin Integrity: Goal: Risk for impaired skin integrity will decrease Outcome: Progressing Problem: Tissue Perfusion: Goal: Risk factors for ineffective tissue perfusion will decrease Outcome: Progressing Goals: Clinical Goals for the Shift: pain control, IV fluids, rest, and safety Summary: Oriented patient to room and floor, admitted from ER for abdominal pain. Pt A & O X 4 and walks with steady gait. Family at bedside. IV fluids started, CT abdomen planned for 05/06/19, will be pretreated for allergy to IV dye. Continue to hourly round and monitor for needs and any acutechanges. * ED Procedure Note - Leilani Eason NP - 05/05/2019 1:46 PM CDTAssociated Order(s): ECG 12 lead Procedure ECG 12 lead Date/Time: 05/05/2019 1:46 PM Performed by: Leilani Eason NP Authorized by: Leilani Eason NP Rate: ECG rate: 46 Rhythm: Rhythm: sinus bradycardia Previous ECG: Previous ECG: Unavailable Comments: No STEMI Leilani Eason NP 05/05/19 1346 documented in this encounter Plan of Treatment Not on file documented as of this encounter Procedures Procedure Name Priority Date/Time Associated Diagnosis Comments CT CHEST ABDOMEN PELVIS W CONTRAST IP Routine 05/06/2019 6:14 AM CDT EGFR Routine 05/06/2019 4:58 AM CDT DIFFERENTIAL AUTO Routine 05/06/2019 4:5 8 AM CDT CBC WITH AUTO DIFFERENTIAL Routine 05/06/2019 4:58 AM CDT COMPREHENSIVE METABOLIC PANEL Routine 05/06/2019 4:58 AM CDT ECG 12-LEAD STAT 05/05/2019 1:17 PM CDT EGFR STAT 05/05/2019 12:59 PM CDT TROPONIN T STAT 05/05/2019 12:59 PM CDT LIPASE STAT 05/05/2019 12:59 PM CDT HEPATIC FUNCTION PANEL STAT 05/05/2019 12:59 PM CDT BASIC METABOLIC PANEL STAT 05/05/2019 12:59 PM CDT ADD ON LAB TEST Add-On 05/05/2019 12:45 PM CDT DIFFERENTIAL AUTO STAT 05/05/2019 11: 56 AM CDT CBC WITH AUTO DIFFERENTIAL STAT 05/05/2019 11:56 AM CDT URINALYSIS AND REFLEX TO MICROSCOPIC AND CULTURE STAT 05/05/2019 11:52 AM CDT documented in this encounter Results * CT Chest Abdomen Pelvis W Contrast (05/06/2019 6:14 AM CDT) Anatomical Region Laterality Modality Body N/A Computed Tomogra phy 05/06/2019 9:23 AM CDT Impressions 05/06/2019 9:42 AM CDT No acute findings in the chest, abdomen, or pelvis. Electronically signed by: Rinku De MD Narrative 05/06/2019 9:42 AM CDT EXAM: ??CT CHEST, ABDOMEN, AND PELVIS WITH CONTRAST HISTORY: ??Nausea. ??Abdominal pain. ??Epigastric pain. ??Chest pain. TECHNIQUE: CT chest, abdomen, and pelvis was performed with IV contrast administration. ??95 mL Optiray-350 were given IV. ??Oral contrast was not administered. COMPARISONS: Abdomen/pelvis CT 03/20/2017. CHEST FINDINGS: Postsurgical changes/Lines: No postsurgical changes or lines are identified in the chest. Thyroid: Subcentimeter low-density right thyroid lobe nodule, nonspecific. Mediastinum and tae: No mass. No adenopathy. Heart: Normal heart size without pericardial effusion. ??No coronary arterial calcification. Aorta and vascular: Unremarkable. Pleural spaces: No effusion or other pleural abnormality. Lungs: Minor bibasilar atelectasis, left greater than right. Airways: Unremarkable. Chest wall: Unremarkable. No axillary adenopathy. Osseous structures: Unremarkable. ABDOMEN/PELVIS FINDINGS: Liver: Normal. Gallbladder/biliary: Prior cholecystectomy. ??No biliary ductal dilation. Spleen: Normal. Adrenal glands: Normal. Pancreas: Normal. Kidneys: No calculi or hydronephrosis. Bladder: Unremarkable. Reproductive: Prior hysterectomy. Bowel: No acute findings. ??Normal appendix. Vascular/aorta: Unremarkable. Lymph nodes: No adenopathy. Peritoneum: No pneumoperitoneum. ??No free fluid. Abdominal wall: Rectus diastasis noted. ??No acute findings. Osseous structures: Unremarkable. Procedure Note Rinku De MD - 05/06/2019 EXAM: CT CHEST, ABDOMEN, AND PELVIS WITH [...] noted. No acute findings. Osseous structures: Unremarkable. IMPRESSION: No acute findings in the chest, abdomen, or pelvis. Electronically signed by: Rinku De MD us Celia Justice NP IMG CT PROCEDURES Final Re sult * eGFR (05/06/2019 4:58 AM CDT) eGFR 103 mL/min/1.7 3 m2 [facility] Comment: Interpretive Data Reference Interval Normal ?>/= 90 mL/min/1.73m2 Mildly decreased* ? 60 - 89 mL/min/1.73m2 Mildly to moderately decreased ?45 - 59 mL/min/1.73m2 Moderately to severely decreased ??30 - 44 mL/min/1.73m2 Severely decreased ?15 - 29 mL/min/1.73m2 Kidney Failure ?< 15 ??mL/min/1.73m2 *Relative to young adult level If -Danish multiply value by 1.16. Estimated glomerular filtration [...] was last reviewed 2017. Blood specimen (specimen) 05/06/2019 4:58 AM CDT 05/06/2019 6:45 AM CDT Leilani Eason MULTIGRAPH OPERATOR LAB BLOOD ORDERABLE S Final Result [facility] [address] Department [place] [address] * (ABNORMAL) Differential, auto (05/06/2019 4:58 AM CDT) Neutrophil abs 3.2 1.7 - 6.5 K/cumm [facility] Imm gran abs 0.0 0.0 - 0.1 K/cumm [facility] Lymphocyte abs 0.5(L) 0.8 - 3.3 K/cumm [facility] Monocyte abs 0.0(L) 0.2 - 0.8 K/cumm [facility] Eosinophil abs 0.0 0.0 - 0.5 K/cumm [facility] Basophil abs 0.0 0.0 - 0.1 K/cumm [facility] Neutrophil pct 86.0 % [facility] Comment: Interpretive Data Percent cell count reference ranges are not reported, since discordance with absolute values may lead to misinterpretation of CBC data. Current Interpretive Data was last revised on 2018. Imm gran pct 0.3 % [facility] Comment: Interpretive Data Percent cell count reference ranges are not reported, since discordance with absolute values may lead to misinterpretation of CBC data. Current Interpretive Data was last revised on 2018. Lymphocyte pct 12.9 % [facility] Comment: Interpretive Data Percent cell count reference ranges are not reported, since discordance with absolute values may lead to misinterpretation of CBC data. Current Interpretive Data was last revised on 2018. Monocyte pct 0.8 % [facility] Comment: Interpretive Data Percent cell count reference ranges are not reported, since discordance with absolute values may lead to misinterpretation of CBC data. Current Interpretive Data was last revised on 2018. Eosinophil pct 0.0 % [facility] Comment: Interpretive Data Percent cell count reference ranges are not reported, since discordance with absolute values may lead to misinterpretation of CBC data. Current Interpretive Data was last revised on 2018. Basophil pct 0.0 % [facility] Comment: Interpretive Data Percent cell count reference ranges are not reported, since discordance with absolute values may lead to misinterpretation of CBC data. Current Interpretive Data was last revised on 2018. Blood specimen (specimen) 05/06/2019 4:58 AM CDT 05/06/2019 6:45 AM CDT us Leilani Eason NP LAB BLOOD ORDERABLE S Final Result [facility] [address] Department [place] [address] * (ABNORMAL) Comprehensive metabolic panel (05/06/2019 4:58 AM CDT) Sodium 139 135 - 145 mmol/L [facility] Potassium, pl 4.0 3.3 - 4.9 mmol/L [facility] Chloride 106 97 - 110 mmol/L [facility] CO2 24 22 - 32 mmol/L [facility] Anion gap 9 2 - 15 mmol/L [facility] BUN 6(L) 8 - 25 mg/dL [facility] Creatinine 0.68 0.60 - 1.10 mg/dL [facility] Glucose 175 70 - 199 mg/dL [facility] Comment: Interpretive Data Fasting glucose [...] 2017. Calcium 8.8 8.5 - 10.3 mg/dL [facility] Bilirubin, total 0.5 0.1 - 1.2 mg/dL [facility] Protein, pl 5.9(L) 6.5 - 8.5 g/dL [facility] Albumin 4.1 3.5 - 5.0 g/dL [facility] Alk phos 53 40 - 130 Units/L [facility] ALT 14 7 - 45 Units/L [facility] AST 24 10 - 45 Units/L [facility] Blood specimen (specimen) 05/06/2019 4:58 AM CDT 05/06/2019 6:45 AM CDT Leilani Eason MULTIGRAPH OPERATOR LAB BLOOD ORDERABLE S Final Result [facility] [address] Department [place] [address] * (ABNORMAL) CBC with auto differential (05/06/2019 4:58 AM CDT) WBC 3.7(L) 3.8 - 9.9 K/cumm [facility] Hgb 14.0 11.9 - 15.5 g/dL [facility] Hct 41.1 35.6 - 45.5 % [facility] Plt 200 150 - 400 K/cumm [facility] MPV 11.9 9.1 - 12.3 fL [facility] RBC 4.50 3.90 - 5.20 M/cumm [facility] MCV 91.3 81.3 - 96.4 fL [facility] MCH 31.1 27.1 - 33.3 pg [facility] MCHC 34.1 32.3 - 35.7 g/dL [facility] RDW CV 11.8 11.1 - 14.9 % [facility] RDW SD 39.6 35.7 - 48.1 fL [facility] NRBC abs 0.00 0.00 - 0.01 K/cumm [facility] Blood specimen (specimen) 05/06/2019 4:58 AM CDT 05/06/2019 6:45 AM CDT us Leilani Ronel K[place] MULTIGRAPH OPERATOR LAB BLOOD ORDERABLE S Final Result Performing Organization Address [facility] Co de Phone Number [facility] [address] Department [place] [address] * ECG 12 lead (05/05/2019 1:17 PM CDT) 05/05/2019 1:17 PM CDT Narrative [facility] - 05/06/2019 11:07 AM CDT Vent Rate: 46 bpm RR Interval: 1291 msec NV Interval: 123 msec QRS Duration: 87 msec QT Interval: 450 msec QTC Interval: 409 msec P-R-T [place]: 56 - 54 - 46 degrees SINUS BRADYCARDIA BORDERLINE ECG NONSPECIFIC ST SEGMENT CHANGES Electronically Signed By: Johan Toribio MD, [facility] Roenl Eason MULTIGRAPH OPERATOR ECG ORDERABLES Fin al Result Performing Organization Address [facility] de Phone Number [facility] * eGFR (05/05/2019 12:59 PM CDT) eGFR 96 mL/min/1.7 3 m2 [facility] Comment: Interpretive Data Reference Interval Normal ?>/= 90 mL/min/1.73m2 Mildly decreased* ? 60 - 89 mL/min/1.73m2 Mildly to moderately decreased ?45 - 59 mL/min/1.73m2 Moderately to severely decreased ??30 - 44 mL/min/1.73m2 Severely decreased ?15 - 29 mL/min/1.73m2 Kidney Failure ?< 15 ??mL/min/1.73m2 *Relative to young adult level If -Danish multiply value by 1.16. Estimated glomerular filtration [...] was last reviewed 2017. Blood specimen (specimen) 05/05/2019 12:59 PM CDT 05/05/2019 1:13 PM CDT us Notinfile Unknown LAB BLOOD ORDERABLES Final Res ult Performing Organization Address [facility] Co de Phone Number [facility] [address] [place] [address] * Lipase (05/05/2019 12:59 PM CDT) Pathologist [facility] Lipase 24 10 - 99 Units/L [facility] Blood specimen (specimen) 05/05/2019 12:59 PM CDT 05/05/2019 1:13 PM CDT us Notinfile Unknown LAB BLOOD ORDERABLES Final Res ult Performing Organization Address [facility] de Phone Number [facility] [address] [place] [address] * Troponin T (05/05/2019 12:59 PM CDT) Pathologist [facility] Troponin T <0.01 0.00 - 0.01 ng/mL [facility] Comment: Interpretive Data Reference ranges for children <18 years of age have not been established. - > or = 18 years: Serial determinations are recommended for the diagnosis of myocardial infarction. ??Temporal rise and fall are consistent with myocardial infarction when at least one value is above the 99th percentile upper reference limit for troponin assay. ??Journal of the [place] [employer] 2012;60:1581-98. Current Interpretive Data Last Revised Date: 2018. Blood specimen (specimen) 05/05/2019 12:59 PM CDT 05/05/2019 1:13 PM CDT us Notinfile Unknown LAB BLOOD ORDERABLES Final Res ult Performing Organization Address [facility]/ZIP Co de Phone Number [facility] [address] Department icomply [place], [place] [id number] * (ABNORMAL) Hepatic function panel (05/05/2019 12:59 PM CDT) Pathologist [facility] Bilirubin, total 0.4 0.1 - 1.2 mg/dL [facility] Bilirubin, direct <0.2 0.1 - 0.3 mg/dL [facility] Protein, pl 5.8(L) 6.5 - 8.5 g/dL [facility] Albumin 3.8 3.5 - 5.0 g/dL [facility] Alk phos 51 40 - 130 Units/L [facility] ALT 17 7 - 45 Units/L [facility] AST 21 10 - 45 Units/L [facility] Blood specimen (specimen) 05/05/2019 12:59 PM CDT 05/05/2019 1:13 PM CDT us Notinfile Unknown LAB BLOOD ORDERABLES Final Res ult Performing Organization Address [facility] Co de Phone Number [facility] [address] [place] [address] * Basic metabolic panel (05/05/2019 12:59 PM CDT) [facility] Sodium 142 135 - 145 mmol/L [facility] Potassium, pl 3.9 3.3 - 4.9 mmol/L [facility] Chloride 106 97 - 110 mmol/L [facility] CO2 26 22 - 32 mmol/L [facility] Anion gap 10 2 - 15 mmol/L [facility] BUN 8 8 - 25 mg/dL [facility] Creatinine 0.74 0.60 - 1.10 mg/dL [facility] Glucose 92 70 - 199 mg/dL [facility] Comment: Interpretive Data Fasting glucose [...] interpretive data was last revised 2017. Calcium 8.9 8.5 - 10.3 mg/dL [facility] Blood specimen (specimen) 05/05/2019 12:59 PM CDT 05/05/2019 1:13 PM CDT us Notinfile Unknown LAB BLOOD ORDERABLES Final Res ult [facility] [address] Department of icomply [place], [place] [id number] * Troponin T - Add on lab test (05/05/2019 12:45 PM CDT) Pathologist [facility] Acceptable Yes [facility] Blood specimen (specimen) 05/05/2019 12:45 PM CDT 05/05/2019 12:50 PM CDT Narrative [facility] - 05/05/2019 12:51 PM CDT Name of Test->Troponin T Leilani Eason NP LAB BLOOD ORDERABLE S Final Result [facility] [address] Department of icomply [place], [place] [id number] * Differential, auto (05/05/2019 11:56 AM CDT) Pathologist [facility] Neutrophil abs 2.7 1.7 - 6.5 K/cumm [facility] Imm gran abs 0.0 0.0 - 0.1 K/cumm [facility] Lymphocyte abs 1.5 0.8 - 3.3 K/cumm [facility] Monocyte abs 0.4 0.2 - 0.8 K/cumm [facility] Eosinophil abs 0.4 0.0 - 0.5 K/cumm [facility] Basophil abs 0.0 0.0 - 0.1 K/cumm [facility] Neutrophil pct 53.7 % [facility] Comment: Interpretive Data Percent cell count reference ranges are not reported, since discordance with absolute values may lead to misinterpretation of CBC data. Current Interpretive Data was last revised on 2018. Imm gran pct 0.4 % [facility] Comment: Interpretive Data Percent cell count reference ranges are not reported, since discordance with absolute values may lead to misinterpretation of CBC data. Current Interpretive Data was last revised on 2018. Lymphocyte pct 30.5 % [facility] Comment: Interpretive Data Percent cell count reference ranges are not reported, since discordance with absolute values may lead to misinterpretation of CBC data. Current Interpretive Data was last revised on 2018. Monocyte pct 7.0 % [facility] Comment: Interpretive Data Percent cell count reference ranges are not reported, since discordance with absolute values may lead to misinterpretation of CBC data. Current Interpretive Data was last revised on 2018. Eosinophil pct 7.6 % [facility] Comment: Interpretive Data Percent cell count reference ranges are not reported, since discordance with absolute values may lead to misinterpretation of CBC data. Current Interpretive Data was last revised on 2018. Basophil pct 0.8 % [facility] Comment: Interpretive Data Percent cell count reference ranges are not reported, since discordance with absolute values may lead to misinterpretation of CBC data. Current Interpretive Data was last revised on 2018. Blood specimen (specimen) 05/05/2019 11:56 AM CDT 05/05/2019 12:21 PM CDT [facility] Final Result [facility] [address] Department [place] [address] * CBC with auto differential (05/05/2019 11:56 AM CDT) WBC 5.0 3.8 - 9.9 K/cumm [facility] Hgb 14.0 11.9 - 15.5 g/dL [facility] Hct 41.7 35.6 - 45.5 % [facility] Plt 225 150 - 400 K/cumm [facility] MPV 11.6 9.1 - 12.3 fL [facility] RBC 4.53 3.90 - 5.20 M/cumm [facility] MCV 92.1 81.3 - 96.4 fL [facility] MCH 30.9 27.1 - 33.3 pg [facility] MCHC 33.6 32.3 - 35.7 g/dL [facility] RDW CV 12.1 11.1 - 14.9 % [facility] RDW SD 41.1 35.7 - 48.1 fL [facility] NRBC abs 0.00 0.00 - 0.01 K/cumm [facility] Blood specimen (specimen) (Blood, Venous) 05/05/2019 11:56 AM CDT 05/05/2019 12:21 PM CDT Drake Mcginnis [facility] LAB BLOOD ORDERABLES Final Result [facility] [address] Department [place] [address] * Urinalysis reflex to microscopic and culture Urine, clean voided (05/05/2019 11:52 AM CDT) Color, ur Yellow Yellow [facility] Clarity, ur Clear Clear [facility] Specific gravity, ur 1.010 1.010 - 1.025 [facility] pH, urine 7.0 [facility] Protein, ur ql Negative Negative [facility] Glucose, ur ql Negative Negative [facility] Ketones, ur Negative Negative [facility] Bilirubin, ur Negative Negative [facility] Blood, ur Negative Negative [facility] Urobilinogen, ur <2.0 <2.0 mg/dL [facility] Nitrite, ur Negative Negative [facility] Leukocyte esterase, ur Negative Negative [facility] Urine, clean voided 05/05/2019 11:52 AM CDT 05/05/2019 12:07 PM CDT Narrative [facility] - 05/05/2019 12:11 PM CDT ?? Urine pH is affected by diet, medications, systemic acid-base disturbances, and renal tubular function. ??pH may affect urinary stone formation. ??For example, urine pH below 6.0 may help reduce the tendency for calcium phosphate stones and pH greater than 6.0 may reduce the tendency for uric acid stone formation. Source: [facility] icomply. Last revised 10-23-2017 Drake Viera DO LAB MICROBIOLOGY - G ENERAL ORDERABLES Final Result [facility] [address] Department [place] [address] documented in this encounter Visit Diagnoses Diagnosis Epigastric abdominal pain- Primary Abdominal pain, epigastric Pain of upper abdomen Nausea Nausea alone Epigastric abdominal pain Abdominal pain, epigastric History of stomach ulcers Other chronic pain Nausea Nausea alone Allergic rhinitis Allergic rhinitis, cause unspecified History of stomach ulcers Gastroesophageal reflux disease with esophagitis documented in this encounter Administered Medications Inactive Administered Medications - up to 3 most recent administrations Medication Order MAR Action Action Date Dose Rate Site acetaminophen (TYLENOL) tablet 650 mg 650 mg, oral, Every 8 hours scheduled, First dose on Fri05/07/19 at 1400 cetirizine (ZyrTEC) tablet 10 mg 10 mg, oral, Daily, First dose on Fri05/05/19 at 2100 Given 05/06/2019 8:16 PM CDT 10 mg Given 05/05/2019 9:55 PM CDT 10 mg dextrose 5% and sodium chloride 0.9% infusion (premix) 125 mL/hr, intravenous, Continuous, Starting on Fri05/05/19 at 1700 Rate/Dose Verify 05/07/2019 5:24 PM CDT 125 mL/hr 125 mL/hr Rate/Dose Verify 05/07/2019 3:03 PM CDT 125 mL/hr 125 mL/ hr New Bag 05/07/2019 12:33 PM CDT 125 mL/hr 125 mL/hr diphenhydrAMINE (BENADRYL) tab/cap 50 mg 50 mg, oral, Once, On Joanne 05/06/19 at 0406, For 1 dose, Administer dose 1 hour prior to contrast media injection., Indications: IV Contrast Media Allergy PremedicationIndications:IV Contrast Media Allergy Premedication Given 05/06/2019 4:11 AM CDT 50 mg enoxaparin (LOVENOX) syringe 40 mg 40 mg, subcutaneous, Daily (for enoxaparin), First dose on Fri05/06/19 at 2100, Indications: VTE ProphylaxisIndications:VTE Prophylaxis HYDROmorphone (DILAUDID) injection 0.5 mg 0.5 mg, intravenous, Administer over 2 Minutes, Once, On Fri05/05/19 at 1155, For 1 dose, Indications: PainIndications:Pain Given 05/05/2019 12:18 PM CDT 0.5 mg ioversol (OPTIRAY 350) syringe syringe 100 mL 100 mL, intravenous, Once in imaging, contrast, Starting on Fri05/06/19 at 0614, For 1 dose Given 05/06/2019 6:15 AM CDT 95 mL LORazepam (ATIVAN) injection 1 mg 1 mg, intravenous, Every 8 hours PRN, abdominal spasms, Starting on Fri05/05/19 at 1845, For IV administration, dilute with equal volume of 0.9% sodium chloride. Do not exceed a rate of 2 mg/minute LORazepam (ATIVAN) tablet 1 mg 1 mg, oral, 2 times daily PRN, anxiety, Starting on Fri05/05/19 at 1626 Given 05/05/2019 5:12 PM CDT 1 mg LORazepam (ATIVAN) tablet 1 mg 1 mg, oral, 2 times daily PRN, anxiety, Starting on Fri05/06/19 at 0923 Given 05/06/2019 1:55 PM CDT 1 mg methocarbamol (ROBAXIN) tablet 250 mg 250 mg, oral, 3 times daily PRN, muscle spasms, abdominal pain, Starting on Fri05/07/19 at 1117, Indications: Muscle SpasmIndications:Muscle Spasm Given 05/07/2019 4:58 PM CDT 250 mg Given 05/07/2019 12:31 PM CDT 250 mg montelukast (SINGULAIR) tablet 10 mg 10 mg, oral, Nightly, First dose on Fri05/05/19 at 2100 Given 05/06/2019 8:15 PM CDT 10 mg Given 05/05/2019 9:55 PM CDT 10 mg ondansetron (ZOFRAN) injection 4 mg 4 mg, intravenous, Administer over 2 Minutes, Once, On Fri05/05/19 at 1154, For 1 dose, Indications: Nausea, VomitingIndications:Nausea,Vomiting Given 05/05/2019 12:17 PM CDT 4 mg ondansetron (ZOFRAN) injection 4 mg 4 mg, intravenous, Administer over 2 Minutes, Every 6 hours PRN, nausea, vomiting, if not tolerating PO, Starting on Fri05/05/19 at 1626, Indications: Nausea and VomitingIndications:Nausea and Vomiting ondansetron ODT (ZOFRAN-ODT) disintegrating tablet 4 mg 4 mg, oral, Every 6 hours PRN, nausea, vomiting, Starting on Fri05/05/19 at 1626, Indications: Nausea and VomitingIndications:Nausea and Vomiting pantoprazole DR (PROTONIX) extended release tablet 40 mg 40 mg, oral, 2 times daily, First dose on Fri05/05/19 at 2100, Do not crush, chew, cut, dissolve, open or otherwise manipulate tablet/capsule., Indications: Treatment of Non-Bleeding Gastric DisorderIndications:Treatment of Non-Bleeding Gastric Disorder Given 05/07/2019 9:16 AM CDT 40 mg Given 05/06/2019 8:15 PM CDT 40 mg Given 05/06/2019 9:39 AM CDT 40 mg predniSONE (DELTASONE) tablet 50 mg 50 mg, oral, Every 6 hours, First dose on Fri05/05/19 at 1537, For 3 doses, Call Radiology to schedule procedure after the 1st dose is administered., Indications: IV Contrast Media Allergy PremedicationIndications:IV Contrast Media Allergy Premedication Given 05/06/2019 4:12 AM CDT 50 mg Given 05/05/2019 9:55 PM CDT 50 mg Given 05/05/2019 5:10 PM CDT 50 mg sodium chloride 0.9% bolus 1,000 mL 1,000 mL, intravenous, at 1,000 mL/hr, Administer over 1 Hours, Once, On Fri05/05/19 at 1154, For 1 dose New Bag 05/05/2019 12:16 PM CDT 1,000 mL 1000 mL/hr sodium chloride 0.9% flush 125 mL 125 mL, intravenous, Once in imaging, line care, Starting on Joanne 05/06/19 at 0614, For 1 dose Given 05/06/2019 6:15 AM CDT 80 mL documented in this encounter Discontinued Medications Medication Sig Discontinue Reason Start Date End Da te Bifidobacterium infantis (ALIGN) 4 mg capsule Take 4 mg by mouth daily 05/05/2019 cyanocobalamin, vitamin B-12, 1,000 mcg capsule Take 1,000 mcg by mouth. 05/05/2019 magnesium [id number]-[id number] 42 mg (500 mg)- 250 mg tablet extended release Take 250 mg by mouth. 05/05/2019 pseudoephedrine (SUDAFED) 30 mg tabletIndications:Nasal Congestion Take 30 mg by mouth every 4 (four) hours as needed 05/05/2019 VAGIFEM 10 mcg tabletIndications:Encoun ter for gynecological examination without abnormal finding Insert 1 tablet (10 mcg total) into the vagina 3 (three) times a week. 06/10/2018 05/05/2019 LORazepam (ATIVAN) 1 mg tablet Take 1 tablet (1 mg total) by mouth 2 (two) times a day as needed for anxiety for up to 10 days Stop Taking at Discharge 04/21/2019 05/07/2019 documented as of this encounter Historical Medications * This list may reflect changes made after this encounter. montelukast (SINGULAIR) 10 mg tablet Take 10 mg by mouth nightly 05/28/2019 added in this encounter Active and Recently Administered Medications Times are shown in CDT. Scheduled Medication Order 05/05/2019 05/06/2019 05/07/2019 acetaminophen (TYLENOL) tablet 650 mg 650 mg, oral, Every 8 hours scheduled, First dose on Fri05/07/19 at 1400 1430 (Not Given - Provider: Haydee Torres, GYPSY - Reason: Patient/family refused) cetirizine (ZyrTEC) tablet 10 mg 10 mg, oral, Daily, First dose on Fri05/05/19 at 2100 2155 (Given - Provider: Dot Hardin, GYPSY) 2015 (Given - Provider: Sadie Eason RN) diphenhydrAMINE (BENADRYL) tab/cap 50 mg (COMPLETED) 50 mg, oral, Once, On Joanne 05/06/19 at 0406, For 1 dose, Administer dose 1 hour prior to contrast media injection., Indications: IV Contrast Media Allergy Premedication 0411 (Given - Provider: Dot Hardin RN) enoxaparin (LOVENOX) syringe 40 mg 40 mg, subcutaneous, Daily (for enoxaparin), First dose on Joanne 05/06/19 at 2100, Indications: VTE Prophylaxis 2014 (Not Given - Provider: Sadie Eason RN - Reason: Patient/family refused) HYDROmorphone (DILAUDID) injection 0.5 mg (COMPLETED) 0.5 mg, intravenous, Administer over 2 Minutes, Once, On Fri05/05/19 at 1155, For 1 dose, Indications: Pain 1218 (Given - Provider: Cristian Rosales, GYPSY) montelukast (SINGULAIR) tablet 10 mg 10 mg, oral, Nightly, First dose on Fri05/05/19 at 2100 2154 (Given - Provider: Dot Hardin RN) 2014 (Given - Provider: Sadie Eason RN) ondansetron (ZOFRAN) injection 4 mg (COMPLETED) 4 mg, intravenous, Administer over 2 Minutes, Once, On Fri05/05/19 at 1154, For 1 dose, Indications: Nausea, Vomiting 1217 (Given - Provider: Cristian Rosales, GYPSY) pantoprazole DR (PROTONIX) extended release tablet 40 mg 40 mg, oral, 2 times daily, First dose on Fri05/05/19 at 2100, Do not crush, chew, cut, dissolve, open or otherwise manipulate tablet/capsule., Indications: Treatment of Non-Bleeding Gastric Disorder 2155 (Given - Provider: Dot Hardin RN) 0939 (Given - Provider: Amada Steiner)2014 (Given - Provider: Sadie Eason RN) 0916 (Given - Provider: Elyse Velasco) predniSONE (DELTASONE) tablet 50 mg (COMPLETED) 50 mg, oral, Every 6 hours, First dose on Fri05/05/19 at 1537, For 3 doses, Call Radiology to schedule procedure after the 1st dose is administered., Indications: IV Contrast Media Allergy Premedication 1709 (Given - Provider: Serena Don RN)2154 (Given - Provider: Dot Hardin RN) 0412 (Given - Provider: Dot Hardin RN) sodium chloride 0.9% bolus 1,000 mL (COMPLETED) 1,000 mL, intravenous, at 1,000 mL/hr, Administer over 1 Hours, Once, On Fri05/05/19 at 1154, For 1 dose 1216 (New Bag - Provider: Cristian Rosales, GYPSY)1628 (Stopped - Provider: Serena Don RN) Continuous Medication Order 05/05/2019 05/06/2019 05/07/2019 dextrose 5% and sodium chloride 0.9% infusion (premix) 125 mL/hr, intravenous, Continuous, Starting on Fri05/05/19 at 1700 1710 (New Bag - Provider: Serena Don RN) 0108 (New Bag - Provider: Josué Arroyo RN)1124 (New Bag - Provider: Alyssa Collins RN)1345 (Rate/Dose Verify - Provider: Alyssa Collins RN)1748 (Rate/Dose Verify - Provider: Alyssa Collins RN)2019 (New Bag - Provider: Sadie Eason RN) 0417 (New Bag - Provider: Josué Arroyo RN)0811 (Rate/Dose Verify - Provider: Haydee Torres RN)1015 (Rate/Dose Verify - Provider: Haydee Torres, GYPSY)1233 (New Bag - Provider: Haydee Torres RN)1503 (Rate/Dose Verify - Provider: Haydee Torres RN)1724 (Rate/Dose Verify - Provider: Haydee Torres, GYPSY) PRN Medication Order 05/05/2019 05/06/2019 05/07/2019 HYDROcodone-acetaminophen (NORCO) 5-325 mg per tablet 1 tablet 1 tablet, oral, Every 4 hours PRN, 1st line for pain, Starting on Fri05/05/19 at 1626, Indications: Pain 1357 (Return to Cabinet - Provider: Alyssa Collins RN - Comment: pt wants to try ativan first.) HYDROmorphone (DILAUDID) injection 0.5 mg 0.5 mg, intravenous, Administer over 2 Minutes, Every 3 hours PRN, 1st line for pain, Starting on Fri05/05/19 at 1626, Indications: Pain ioversol (OPTIRAY 350) syringe syringe 100 mL (COMPLETED) 100 mL, intravenous, Once in imaging, contrast, Starting on Fri05/06/19 at 0614, For 1 dose 0615 (Given - Provider: Michaela Olvera, R-RT) LORazepam (ATIVAN) injection 1 mg 1 mg, intravenous, Every 8 hours PRN, abdominal spasms, Starting on Fri05/05/19 at 1845, For IV administration, dilute with equal volume of 0.9% sodium chloride. Do not exceed a rate of 2 mg/minute LORazepam (ATIVAN) tablet 1 mg (CANCELED) 1 mg, oral, 2 times daily PRN, anxiety, Starting on Fri05/05/19 at 1626 1712 (Given - Provider: Serena Don RN) LORazepam (ATIVAN) tablet 1 mg 1 mg, oral, 2 times daily PRN, anxiety, Starting on Fri05/06/19 at 0923 1355 (Given - Provider: Alyssa Collins RN) methocarbamol (ROBAXIN) tablet 250 mg 250 mg, oral, 3 times daily PRN, muscle spasms, abdominal pain, Starting on Fri05/07/19 at 1117, Indications: Muscle Spasm 1231 (Given - Provider: Haydee Torres RN)1658 (Given - Provider: Haydee Torres RN) ondansetron (ZOFRAN) injection 4 mg(Linked Group 1) 4 mg, intravenous, Administer over 2 Minutes, Every 6 hours PRN, nausea, vomiting, if not tolerating PO, Starting on Fri05/05/19 at 1626, Indications: Nausea and Vomiting ondansetron ODT (ZOFRAN-ODT) disintegrating tablet 4 mg(Linked Group 1) 4 mg, oral, Every 6 hours PRN, nausea, vomiting, Starting on Fri05/05/19 at 1626, Indications: Nausea and Vomiting rizatriptan MEDICAL PARASITOLOGIST (MAXALT-MEDICAL PARASITOLOGIST) disintegrating tablet 10 mg 10 mg, oral, Every 2 hours PRN, migraine, Starting on Joanne 05/06/19 at 0923, Indications: Migraine sodium chloride 0.9% flush 125 mL (COMPLETED) 125 mL, intravenous, Once in imaging, line care, Starting on Joanne 05/06/19 at 0614, For 1 dose 0615 (Given - Provider: Michaela Olvera, R-RT) Linked Groups Order Group 1: ondansetron ODT (ZOFRAN-ODT) disintegrating tablet 4 mgJump to med 4 mg, oral, Every 6 hours PRN, nausea, vomiting, Starting on Fri05/05/19 at 1626, Indications: Nausea and Vomiting Or ondansetron (ZOFRAN) injection 4 mgJump to med 4 mg, intravenous, Administer over 2 Minutes, Every 6 hours PRN, nausea, vomiting, if not tolerating PO, Starting on Fri05/05/19 at 1626, Indications: Nausea and Vomiting documented in this encounter Orders Medications Ordered That Don ht Not Have Been Administered Count Last Ordered Date First Ordered Date acetaminophen (TYLENOL) tablet 650 mg 1 enoxaparin (LOVENOX) syringe 40 mg 1 2018 rizatriptan MEDICAL PARASITOLOGIST (MAXALT-MEDICAL PARASITOLOGIST) disintegrating tablet 10 mg 1 05/06/2019 HYDROcodone-acetaminophen (N ORCO) 5-325 mg per tablet 1 tablet 05/05/2019 HYDROmorphone (DILAUDID) injection 0.5 mg 1 05/05/2019 LORazepam (ATIVAN) injection 1 mg 1 019 ondansetron (ZOFRAN) injection 4 mg 05/05 ondansetron ODT (ZOFRAN-ODT) disintegrating tablet 4 mg 1 05/05/2019 General Supply Count Last Ordered Date First Or dered Date ALARIS 8015 BRAIN 05/06/2019 ALARIS IV PUMP ARM 05/06/2019 Diet Count Last Ordered Date First Orde red Date ADULT DISCHARGE DIET 1 05/07/2019 Nursing Count Last Ordered Date First Orde red Date DISCHARGE ACTIVITY 1 05/07/2019 DISCHARGE INSTRUCTIONS 05/07/2019 FOLLOW UP WITH PROVIDER 05/07/2019 MISCELLANEOUS NURSING CARE ORDER (SPECIFY) 05/05/2019 Consult Count Last Ordered Date First Orde red Date IP CONSULT TO PAIN MANAGEMENT 1 05/06/2019 IV Count Last Ordered Date First Orde red Date SALINE LOCK IV 1 05/05/2019 CORE MEASURES Count Last Ordered Date First Ord ered Date REASON FOR NO VTE PROPHYLAXI S - HOSPITAL ADMISSION - MEDICATIONS 1 05/05/2019 ADT Patient Update Count Last Ordered Date Firs t Ordered Date ED IP DECISION TO ADMIT 1 05/05/2019 documented in this encounter Care Teams Hydrogen Cell Tender Relationship Specialty Start Date End Date Jonathan Amado MD PCP - General 03/18/17 documented as of this encounter
--- OUTSIDE RECORDS SUMMARY | 2024-10-17 03:15 | XMS_ITS | Encounter Summary ---
Author Organization [facility] Healthcare Address [address] [place] [address] Care Team Providers Care Screener Operator Name Role Phone Jonathan Amado MD Primary Care Provider [phone] Reason for Referral * Diagnostic Imaging (Routine) - Closed Specialty Diagnoses / Procedures Referred By Chidi sorensen Referred To Contact Radiology Diagnoses Left hip pain Procedures MRI Hip Left WO Contrast Grupo Reese MD Phone: tel: fax: [address] [phone] Referral ID Status Reason Start Date Expiration Date Visits Re quested Visits Authorized [id number] Closed 06/01/2018 12/11/2019 1 1 Reason for Visit * Diagnostic Imaging (Routine) - Closed Specialty Diagnoses / Procedures Referred By Chidi sorensen Referred To Contact Radiology Diagnoses Left hip pain Procedures MRI Hip Left WO Contrast Grupo Reese MD Phone: tel: fax: [address] [phone] Referral ID Status Reason Start Date Expiration Date Visits Re quested Visits Authorized [id number] Closed 06/01/2018 12/11/2019 1 1 Encounter Details Date Type Department Care Team (Latest Contact Info) Description 06/08/2018 3:51 PM CDT - 06/08/2018 11:59 PM CDT Hospital Encounter [facility] [address] [place] [address] Grupo Reese MD [address] [facility] [address] [place] [address] Left hip pain Discharge Disposition: Discharge to home or self care Social History Tobacco Use Types Packs/Day Years Used Date Smoking Tobacco: Never Smokeless Tobacco: Never Comments Unknown Sex and Gender Information Value Date Recorded Sex Assigned at Not on file 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 Irrigate half in each nostril twice daily. 04/21/2018 8 EPINEPHrine 0.3 mg/0.3 mL auto-injection syringeIndications: Anaphylaxis Inject 0.3 mg into the muscle as instructed. 12/19/2017 9 melatonin 10 mg capsule Take 10 mg by mouth. 8 olopatadine (PAZEO) 0.7 % ophthalmic solutionIndications :Allergic Conjunctivitis Administer 1 drop into both eyes daily. 06/02/2018 8 pseudoephedrine (SUDAFED) 30 mg tabletIndications:N kassi Congestion Take 30 mg by mouth every 4 (four) hours as needed 9 rizatriptan (MAXALT) 10 mg tabletIndications:M igraine Take 10 mg by mouth once as needed 2 tobramycin, bulk, 900 mcg/mg (not less than, [facility]) powder Add 1 capsule of 20mg to 240ml saline (patient may mix own saline). Irrigate half in each nostril twice daily. 04/21/2018 8 documented as of this encounter Discharge Disposition Disposition Code Departure Means Destination Discharge to home or self care documented in this encounter Plan of Treatment Not on file documented as of this encounter Procedures Procedure Name Priority Date/Time Associated Diagnosis Comments MRI HIP LEFT WO CONTRAST Schedule Routine, Read Routine (OP Routine) 06/08/2018 4:42 PM CDT Left hip pain documented in this encounter Results * MRI Hip Left WO Contrast (06/08/2018 4:42 PM CDT) Anatomical Region Laterality Modality Lower Extremities Left Magnetic Reson ance 06/09/2018 8:0 0 AM CDT Impressions 06/09/2018 8:00 AM CDT [...] by: John Kemp M.D. Grupo Reese MD IM MRI PROCEDURES Final Re sult documented in this encounter Visit Diagnoses Diagnosis Left hip pain Pain in joint, pelvic region and thigh documented in this encounter Care Teams Screener Operator Relationship Specialty Start Date End Date Jonathan Amado MD PCP - General 03/18/17 documented as of this encounter
--- OUTSIDE RECORDS SUMMARY | 2024-10-17 03:15 | XMS_ITS | Encounter Summary ---
Author Organization [facility] Healthcare Address [address] [place] [address] Care Team Providers Care Sound Effects Manager Name Role Phone Jonathan Amado MD Primary Care Provider [phone] Encounter Details Date Type Department Care Team (Latest Contact Info) Description 05/23/2017 9:19 AM CDT - 05/23/2017 11:59 PM CDT Hospital Encounter [facility] [phone] Angy Harden MD [address] [address] Discharge Disposition: Discharge to home or self care Social History Tobacco Use Types Packs/Day Years Used Date Smoking Tobacco: Never Comments Unknown Sex and Gender Information Value Date Recorded Sex Assigned at Not on file 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 Gender Identity Not on file Sexual Orientation Not on file documented as of this encounter Discharge Disposition Disposition Code Departure Means Destination Discharge to home or self care documented in this encounter Plan of Treatment Not on file documented as of this encounter Procedures Procedure Name Priority Date/Time Associated Diagnosis Comments MAMMOGRAPHY, TOMOGRAPHY, BILATERAL Routine 05/23/2017 2:37 PM CDT documented in this encounter Results * MAMMOGRAPHY, TOMOGRAPHY, BILATERAL (05/23/2017 2:37 PM CDT) Anatomical Region Laterality Modality Bilateral Mammography 05/23/2017 2:37 PM CDT Narrative 05/23/2017 2:37 PM CDT BIENVENIDO ROWAN M.D. FINAL REPORT ACC# ??Date Time ??Exam [id number] May 23, 2017 09:37:00 [facility] [id number] Scr Mamm kelly 2v w/LEDA ?? Technologist(s): Nirmala Mackenzie; ; EXAMINATION: ??Mammogram Technique: Bilateral Digital Breast Tomosynthesis, Bilateral C-view 2D Screening mammogram. ??Views obtained: ??bilateral craniocaudal and bilateral mediolateral oblique. ??Computer Aided Detection was performed. Mammogram Findings: The present examination has been compared to prior imaging studies performed at [facility] on 03/25/2014, 05/05/2015 and 05/07/2016. There are scattered areas of fibroglandular density. There is no suspicious abnormality in either breast. IMPRESSION: ??Annual screening mammography is recommended. OVERALL FINAL ASSESSMENT: BI-RADS CATEGORY 1: ??Negative. Requested By: Angy Harden ??M.D. ? Dictated By: ?? BIENVENIDO ROWAN M.D. ??on May 26 2017 ??2:58P This document has been electronically signed by: BIENVENIDO ROWAN M.D. on May 26 2017 ??2:58P [id number] ROWAN M.D. FINAL REPORT Attending: ??AMANDA AVINA, ??ANGY Requesting: ??Amanda Avina, ??Angy Requesting Fax: ?? Attending Fax: ?? Attending ID: ??[id number] Requesting ID: ??[id number] Report To 1 ID: ??[id number] ? Report To 1 Name: ??, ?? Report To 1 FAX: ?? NextGen Order #: ?? Procedure Note Miscellaneous, Not In File - 08/08/2017 BIENVENIDO ROWAN M.D. FINAL REPORT ACC# Date Time Exam [id number] May 23, 2017 09:37:00 [facility] [id number] Scr Mamm kelly 2v w/LEDA Technologist(s): Nirmala Mackenzie; ; EXAMINATION: Mammogram Technique: Bilateral Digital Breast Tomosynthesis, Bilateral C-view 2D Screening mammogram. Views obtained: bilateral craniocaudal and bilateral mediolateral oblique. Computer Aided Detection was performed. Mammogram Findings: The present examination has been compared to prior imaging studies performed at [facility] on 03/25/2014, 05/05/2015 and 05/07/2016. There are scattered areas of fibroglandular density. There is no suspicious abnormality in either breast. IMPRESSION: Annual screening mammography is recommended. OVERALL FINAL ASSESSMENT: BI-RADS CATEGORY 1: Negative. Requested By: Angy Harden M.D. Dictated By: BIENVENIDO ROWAN M.D. on May 26 2017 2:58P This document has been electronically signed by: BIENVENIDO ROWAN M.D. on May 26 2017 2:58P [id number] ROWAN M.D. FINAL REPORT Attending: ANGY HARDEN Requesting: Angy Harden Requesting Fax: Attending Fax: Attending ID: [id number] Requesting ID: [id number] Report To 1 ID: [id number] Report To 1 Name: , Report To 1 FAX: NextGen Order #: Angy Avina MD IM MAMMO PROCEDURES Edited Result - Final documented in this encounter Visit Diagnoses Not on filedocumented in this encounter Care Teams Sound Effects Manager Relationship Specialty Start Date End Date Jonathan Amado MD PCP - General 03/18/17 documented as of this encounter
--- OUTSIDE RECORDS SUMMARY | 2024-10-17 03:15 | XMS_ITS | Encounter Summary ---
Author Organization [facility] Address [address] [place] [address] Phone Care Team Providers Care Boarder Hand Name Role Phone Jonathan Amado MD Primary Care Provider [phone] Encounter Details Date Type Department Care Team (Late st Contact Info) Description 06/09/2018 Orders Only [facility] Obstetrics and Gynecology [address] [facility] 1[address] [place] [address] Dyan Lawton CNA Social History Tobacco Use Types Packs/Day Years Used Date Smoking Tobacco: Never Smokeless Tobacco: Never Alcohol Use Standard Drinks/Week Comments No 0 (1 standard drink = 0.6 oz pur e alcohol) Comments No Sex and Gender Information Value Date Recorded Sex Assigned at Not on file 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 olopatadine (PAZEO) 0.7 % ophthalmic solutionIndications :Allergic Conjunctivitis Administer 1 drop into both eyes daily. 06/02/2018 8 added in this encounter Care Teams Boarder Hand Relationship Specialty Start Date End Date Jonathan Amado MD PCP - General 03/18/17 documented as of this encounter
--- OUTSIDE RECORDS SUMMARY | 2024-10-17 03:15 | XMS_ITS | Encounter Summary ---
Author Organization [facility] Address [address] [place] [address] Phone Care Team Providers Care Residential Concierge Name Role Phone Jonathan Amado MD Primary Care Provider [phone] [phone] Reason for Visit * Reason Comments Follow-up Return Patient Encounter Details Date Type Department Care Team (Late st Contact Info) Description 07/27/2018 4:30 PM CDT Office Visit [facility] General Neurology [address] 6th [address] [place] [id number] Vickey Huitron MD PhD [address] [facility] [address] [place] [address] Myalgia (Primary Dx); Memory loss Social History Tobacco Use Types Packs/Day Years Used Date Smoking Tobacco: Never Smokeless Tobacco: Never Alcohol Use Standard Drinks/Week Comments No 0 (1 standard drink = 0.6 oz pur e alcohol) Comments No Sex and Gender Information Value Date Recorded Sex Assigned at Not on file 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 Start oxcarbazepine 150 mg in the evening. If tolerated, add an AM dose. 2. Repeat CK and aldolase. 3. I will call with results and we can discuss muscle biopsy. documented in this encounter Ordered Prescriptions Prescription Sig Dispense Quantity Refills Last Filled Start Date End Date OXcarbazepine (TRILEPTAL) 150 mg tablet Take one in the evening for one week. Increase to one twice daily if needed/tolerat ed. 60 tablet 1 07/27/2018 9 documented in this encounter Progress Notes * Vickey Huitron MD - 07/27/2018 4:30 PM CDT Patient Name: PINA REYNAGA Medical Record Number (MRN): [id number] Date of (): 1970 Encounter Date: 07/27/2018 Chief Complaint Myalgias HPI Ms. Pina Reynaga is a 48 y.o. woman. Since the last visit she has been having continued diffuse myalgias and cramping. Mg and B complex vitamins did not help. Her cramps cause joint movement.Worse with activity. Her quads are tired when going up stairs. Her memory is still a problem, though she sleeps poorly and is scheduled for a sleep study. Allergies Allergies Allergen Reactions ??? Ciprofloxacin Rash [...] mg tablet, , Disp: , Rfl: ??? cyanocobalamin, vitamin B-12, 1,000 mcg capsule, Take 1,000 mcg by mouth., Disp: , Rfl: ??? EPINEPHrine 0.3 mg/0.3 mL auto-injection syringe, Inject 0.3 mg into the muscle as instructed.,Disp: , Rfl: ??? magnesium H-jhmxua-truikqslbfa 42 mg (500 mg)- 250 mg tablet extended release, Take 250 mg by mouth., Disp: , Rfl: ??? melatonin 10 mg capsule, [...] a week., Disp: 3 tablet, Rfl: 11 ??? OXcarbazepine (TRILEPTAL) 150 mg tablet, Take one in the evening for one week. Increase to one twice daily if needed/tolerated., Disp: 60 tablet, Rfl: 1 Patient Active Problem List Diagnosis ??? Allergic [...] Bilateral - (Added by TW Conv) ??? GA DILATION/CURETTAGE,DIAGNOSTIC Dilation And Curettage - (Added by TW Conv) ??? GA ERCP W/SPHINCTEROTOMY/PAPILLOTOMY ERCP With Endoscopic Sphincterotomy - (Added by TW Conv) ??? GA HYSTEROSCOPY,W/ENDO BX Hysteroscopy - (Added by TW Conv) ??? GA LAP,DIAGNOSTIC ABDOMEN Laparoscopy (Diagnostic) - 1998 (Added by TW Conv) ??? GA REMOVAL OF OVARIAN CYST(S) Ovarian Cystectomy - (Added by TW Conv) ??? GA REMOVAL OF OVARY(S) Oophorectomy - 1999 LEFT REMOVED 2011 RIGHT REMOVED (Added by TW Conv) ? ? GA REMOVAL OF TONSILS,<12 Y/O Tonsillectomy - (Added by TW Conv) ??? GA TOTAL ABDOM HYSTERECTOMY Hysterectomy - 2001 (Added [...] ??? Alcohol use No Vital Signs Vitals: 07/27/18 1621 BP: 111/77 BP Location: Left arm Patient Position: Sitting Pulse: 60 Weight: 70.1 kg (154 lb 9.6 oz) Height: 162.6 cm (5' 4 ) Review of Systems Per HPI Physical Exam GENERAL EXAMINATION CONSTITUTIONAL: The patient is well appearing/well nourished, pleasant, comfortable and with appropriate mood. CARDIOVASCULAR: Extremities are warm and well perfused; there is no peripheral edema. NEUROLOGIC EXAM: Mental Status: Patient is alert and oriented x 4. Language: Patient has fluent speech and follows commands. Cranial Nerves II-XII: Face is symmetric, the palate is up-going bilaterally. Shoulder shrug is strong; tongue is midline and there is no dysarthria. Motor: 4+/5 at R ankle dorsiflexor, 4+/5 at R KF/KE. There is no pronator drift. Finger tapping is normal bilaterally. Sensation: Light touch is normal in all four extremities. Coordination: Finger to nose is normal bilaterally. Ambulation: Gait is narrow based with normal arm swing. Reflexes: Reflexes diminished, though spread at the right biceps; brachioradialis and patellae and right ankle; left ankle absent. Absent Anthony. Assessment (M79.10) Myalgia (primary encounter diagnosis) Plan: Creatine kinase (CK), total, Aldolase (R41.3) Memory loss Pina Reynaga And I had a very long discussion about her current symptoms. I reassured her about her memory loss and indicated that there are multiple external factors that can lead one to perceive that they are having memory loss. One of these is chronic pain. Since our last visit her myalgias have worsened and she is having frequent, painful muscle cramping. With respect to her cramping I will check a CK and aldolase to determine if there has been any change since the first visit, suggesting some type of inflammatory myositis. If I also discussed that often cramping can be benign. Given its severity she wished to try a medication and so I recommended starting oxcarbazepine, which is often helpful for muscle cramps. I discussed potential adverse effects of oxcarbazepine including hyponatremia, sedation, as well as ataxia. She was amenable to starting this medication. All of her questions were answered and I think she had a good understanding of what we discussed. Plan 1. Start oxcarbazepine 150 mg in the evening. If tolerated, add an AM dose. 2. Repeat CK and aldolase. 3. I will call with results and we can discuss muscle biopsy. Qdgv-hr-xnrk time with physician began: 4:32 PM. Bzti-tb-zmvb time with physician ended: 5:07PM. Total time spent counseling: Greater than 50% of the time was spent in counseling/coordination of care and/or education. Counseling as per the above assessment and plan. Thank you for allowing me to participate in the care of your patient. If you have any questions, feel free to contact me at [phone]. Sincerely, Vickey Huitron MD, PhD [employer] Representative of Neurology [facility] [place] Portions of this note were generated using voice recognition technology and may be subject to iphone developer error. documented in this encounter Plan of Treatment Not on file documented as of this encounter Results * Aldolase (07/27/2018 5:34 PM CDT) Aldolase See comment 0.1 - 8.0 Units/L [facility] Comment:CRDT, Hemolyzed Spec imen. Blood specimen (specimen) 07/27/2018 5:34 PM CDT 07/27/2018 5:41 PM CDT Narrative [facility] - 07/29/2018 11:01 AM CDT us Vickey Huitron MD PhD LAB BLOOD ORD ERABLES Final Result Performing Organization Address City/[facility] Co de Phone Number [facility] Department [place] [address] * Creatine kinase (CK), total (07/27/2018 5:34 PM CDT) CK 177 30 - 200 Units/L [facility] Blood specimen (specimen) 07/27/2018 5:34 PM CDT 07/27/2018 5:41 PM CDT Narrative [facility] - 07/27/2018 7:28 PM CDT us Vickey Huitron MD PhD LAB BLOOD ORD ERABLES Final Result Performing Organization Address [facility] de Phone Number [facility] [place] [address] documented in this encounter Visit Diagnoses Diagnosis Myalgia- Primary Unspecified myalgia and myositis Memory loss Myalgia Unspecified myalgia and myositis documented in this encounter Historical Medications * This list may reflect changes made after this encounter. cyanocobalamin, vitamin B-12, 1,000 mcg capsule Take 1,000 mcg by mouth. 05/05/2019 magnesium Z-fsymns-ublnblhv aman 42 mg (500 mg)- 250 mg tablet extended release Take 250 mg by mouth. 05/05/2019 added in this encounter Care Teams Residential Concierge Relationship Specialty Start Date End Date Jonathan Amado MD PCP - General 03/18/17 documented as of this encounter
--- OUTSIDE RECORDS SUMMARY | 2024-10-17 03:15 | XMS_ITS | Encounter Summary ---
Author Organization [facility] Healthcare Address [address] [place] [address] Care Team Providers Care Executive Compensation Analyst Name Role Phone Jonathan Amado MD Primary Care Provider [phone] Encounter Details Date Type Department Care Team (Late st Contact Info) Description 06/10/2018 9:50 [place] [address] Dysuria Social History Tobacco Use Types Packs/Day Years Used Date Smoking Tobacco: Never Smokeless Tobacco: Never Alcohol Use Standard Drinks/Week Comments No 0 (1 standard drink = 0.6 oz pur e alcohol) Comments No Sex and Gender Information Value Date Recorded Sex Assigned at Not on file 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 Gender Identity Not on file Sexual Orientation Not on file documented as of this encounter Plan of Treatment Not on file documented as of this encounter Procedures Procedure Name Priority Date/Time Associated Diagnosis Comments URINE CULTURE Routine 06/10/2018 9:47 PM CDT Dysuria documented in this encounter Results * Urine culture Urine, clean voided (06/10/2018 9:47 PM CDT) Report Final Report: No growth [facility] Urine, clean voided 06/10/2018 9:47 PM CDT 06/10/2018 10:31 PM CDT Narrative [facility] - 06/12/2018 6:51 AM CDT Testing performed by [facility] Microbiology Laboratory ([phone]) Angy Avina MD LAB MICROBIOLOGY - G ENERAL ORDERABLES Final Result [facility] [place] [address] documented in this encounter Visit Diagnoses Diagnosis Dysuria documented in this encounter Care Teams Executive Compensation Analyst Relationship Specialty Start Date End Date Jonathan Amado MD PCP - General 03/18/17 documented as of this encounter
--- OUTSIDE RECORDS SUMMARY | 2024-10-17 03:15 | XMS_ITS | Encounter Summary ---
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
--- OUTSIDE RECORDS SUMMARY | 2024-10-17 03:15 | XMS_ITS | Encounter Summary ---
Author Organization [facility] Address [address] [place] [address] Phone Care Team Providers Care Curator Zoological Museum Name Role Phone Jonathan Amado MD Primary Care Provider [phone] [phone] Encounter Details Date Type Department Care Team (Late st Contact Info) Description 07/22/2018 Telephone [facility] General Neurology [address] 6th [address] [place] [address] Raiza Bergman [facility] Social History Tobacco Use Types Packs/Day Years Used Date Smoking Tobacco: Never Smokeless Tobacco: Never Alcohol Use Standard Drinks/Week Comments No 0 (1 standard drink = 0.6 oz pur e alcohol) Comments No Sex and Gender Information Value Date Recorded Sex Assigned at Not on file 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 Can you please schedule an ROV so I can re-examine her before recommendinga biopsy? documented in this encounter Plan of Treatment Not on file documented as of this encounter Visit Diagnoses Not on filedocumented in this encounter Care Teams Curator Zoological Museum Relationship Specialty Start Date End Date Jonathan Amado MD PCP - General 03/18/17 documented as of this encounter
--- OUTSIDE RECORDS SUMMARY | 2024-10-17 03:15 | XMS_ITS | Encounter Summary ---
Author Organization [facility] Address [address] [place] [address] Phone Care Team Providers Care Delivery Table Operator Name Role Phone Jonathan Amado MD Primary Care Provider [phone] [phone] Encounter Details Date Type Department Care Team (Late st Contact Info) Description 07/24/2018 Telephone [facility] General Neurology [address] 6th [address] [place] [address] Raiza Bergman [facility] Social History Tobacco Use Types Packs/Day Years Used Date Smoking Tobacco: Never Smokeless Tobacco: Never Alcohol Use Standard Drinks/Week Comments No 0 (1 standard drink = 0.6 oz pur e alcohol) Comments No Sex and Gender Information Value Date Recorded Sex Assigned at Not on file 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 documented in this encounter Plan of Treatment Not on file documented as of this encounter Visit Diagnoses Not on filedocumented in this encounter Care Teams Delivery Table Operator Relationship Specialty Start Date End Date Jonathan Amado MD PCP - General 03/18/17 documented as of this encounter
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
--- OUTSIDE RECORDS SUMMARY | 2024-10-17 03:16 | XMS_ITS | Encounter Summary ---
Author Organization [facility] Facility Care Team Providers Care Coin Purse Framer Name Role Phone Unavailable Primary Care Provider Unavailabl e Encounter Details Date Type Department Care Team (Late st Contact Info) Description 05/07/2016 4:47 PM CDT - 05/07/2016 11:59 PM CDT [facility] [place] [id number] [address] Encounter for screening mammogram for malignant neoplasm of breast Social History Tobacco Use Types Packs/Day Years Used Date Smoking Tobacco: Never Comments Unknown Sex and Gender Information Value Date Recorded Sex Assigned at Not on file Legal Sex Female 9:51 AM 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 FINAL REPORT ACC# ??Date Time ??Exam [id number] May 07, 2016 17:01:00 [facility] [id number] Bilateral screen w tapan ?? Technologist(s): Nirmala Mackenzie; ; EXAMINATION: ??Mammogram Technique: Bilateral Full-Field Digital Screening Mammogram and Digital Breast Tomosynthesis were performed. ??Views obtained: ??bilateral craniocaudal and bilateral mediolateral oblique. ??Computer Aided Detection of the 2D images was performed with [email or web address] version 9.3. Mammogram Findings: The present examination has been compared to prior imaging studies performed on 01/09/2012, and at [facility] on 05/05/2015 and 03/25/2014. There are scattered areas of fibroglandular density. There is no suspicious abnormality in either breast. IMPRESSION: ??Annual screening mammography is recommended. OVERALL FINAL ASSESSMENT: BI-RADS CATEGORY 1: ??Negative. Requested By: Dictated By: ?? BIENVENIDO ROWAN M.D. ??on May 08 2016 ??2:51P This document has been electronically signed by: BIENVENIDO ROWAN M.D. on May 08 2016 ??2:51P [id number] Procedure Note Provider, MD Kole - 02/03/2017 BIENVENIDO ROWAN M.D. FINAL REPORT ACC# Date Time Exam [id number] May 07, 2016 17:01:00 [facility] [id number] Bilateral screen w tapan Technologist(s): Nirmala Mackenzie; ; EXAMINATION: Mammogram Technique: Bilateral Full-Field Digital Screening Mammogram and Digital Breast Tomosynthesis were performed. Views obtained: bilateral craniocaudaland bilateral mediolateral oblique. Computer Aided Detection of the 2Dimages was performed with zerobound 1.3 version 9.3. Mammogram Findings: The present examination has been compared to prior imaging studies performed on 01/09/2012, and at [facility] on 05/05/2015 and 03/25/2014. There are scattered areas of fibroglandular density. There is no suspicious abnormality in either breast. IMPRESSION: Annual screening mammography is recommended. OVERALL FINAL ASSESSMENT: BI-RADS CATEGORY 1: Negative. Requested By: Dictated By: BIENVENIDO ROWAN M.D. on May 08 2016 2:51P This document has been electronically signed by: BIENVENIDO ROWAN M.D. on May 08 2016 2:51P [id number] Historical Provider MD SINGLETARY MAMMO PROCEDURES Jonna l Result documented in this encounter Visit Diagnoses Diagnosis Encounter for screening mammogram for malignant neoplasm of breast documented in this encounter
--- OUTSIDE RECORDS SUMMARY | 2024-10-17 03:16 | XMS_ITS | Encounter Summary ---
Author Organization [facility] Facility Care Team Providers Care Administrative Technician Name Role Phone Unavailable Primary Care Provider Unavailabl e Encounter Details Date Type Department Care Team (Latest Contact Info) Description 11/25/2014 - 11/25/2014 11:59 PM MANAGER PROCUREMENT Hospital Encounter [facility] [place] [address] [place] [address] Degeneration of lumbar or lumbosacral intervertebral disc Social History Tobacco Use Types Packs/Day Years Used Date Smoking Tobacco: Never Assessed Comments Unknown Sex and Gender Information Value Date Recorded Sex Assigned at Not on file 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PROCUREMENT Gender Identity Not on file Sexual Orientation Not on file documented as of this encounter Plan of Treatment Not on file documented as of this encounter Procedures Procedure Name Priority Date/Time Associated Diagnosis Comments XR SPINE LUMBAR ROUTINE Routine 11/25/2014 3:40 PM MANAGER PROCUREMENT documented in this encounter Results * XR Lumbar Spine Routine (11/25/2014 3:40 PM MANAGER PROCUREMENT) Anatomical Region Laterality Modality L-spine N/A Radiographic [place] ging 11/25/2014 3:40 PM MANAGER PROCUREMENT Narrative 11/25/2014 3:59 PM MANAGER PROCUREMENT JESSE DELGADO M.D. FINAL REPORT ACC# ??Date Time ??Exam [id number] Nov 25, 2014 15:40:00 [id number] Spine Lumbar min 4 views EXAMINATION: ?Lumbar spine minimum 4 views HISTORY: ??Lumbar spondylolisthesis FINDINGS: ?? Four views of the lumbar spine are submitted without comparison. There is grade 1 anterolisthesis of L5 on S1. There is mild L3-L4 degenerative disc disease. There are no compression fractures. There is hypomobility with flexion and extension but no abnormal translatory motion is seen with no exacerbation of listhesis. Right upper quadrant cholecystectomy clips are present. IMPRESSION: ?? 1. Grade 1 anterolisthesis of L5 on S1. 2. Mild L3-L4 degenerative disc disease. Requested By: SANTIAGO GALO D.O. Dictated By: ?? JESSE DELGADO M.D. ??on Nov 25 2014 ??3:59P This document has been electronically signed by: JESSE DELGADO M.D. on Nov 25 2014 ??3:59P [id number] Procedure Note Provider, MD Kole - 02/03/2017 JESSE DELGADO M.D. FINAL REPORT ACC# Date Time Exam [id number] Nov 25, 2014 15:40:00 [id number] Spine Lumbar min 4 views EXAMINATION: Lumbar spine minimum 4 views HISTORY: Lumbar spondylolisthesis FINDINGS: Four views of the lumbar spine are submitted without comparison. There is grade 1 anterolisthesis of L5 on S1. There is mild L3-L4 degenerative disc disease. There are no compression fractures. There is hypomobility with flexion and extension but no abnormal translatory motion is seen with no exacerbation of listhesis. Right upper quadrant cholecystectomy clips are present. IMPRESSION: 1. Grade 1 anterolisthesis of L5 on S1. 2. Mild L3-L4 degenerative disc disease. Requested By: SANTIAGO GALO D.O. Dictated By: JESSE DELGADO M.D. on Nov 25 2014 3:59P This document has been electronically signed by: JESSE DELGADO M.D. on Nov 25 2014 3:59P [id number] us Historical Provider MD SINGLETARY XR PROCEDURES Final R esult documented in this encounter Visit Diagnoses Diagnosis Degeneration of lumbar or lumbosacral intervertebral disc documented in this encounter
--- OUTSIDE RECORDS SUMMARY | 2024-10-17 03:16 | XMS_ITS | Encounter Summary ---
Author Organization [facility] Facility Care Team Providers Care Information Technology Program Manager Name Role Phone Unavailable Primary Care Provider Unavailabl e Encounter Details Date Type Department Care Team (Late st Contact Info) Description 11/23/2014 12:59 PM MARITIME PILOT - 11/23/2014 4:00 PM MARITIME PILOT Hospital Encounter [facility] Harjeet Monet, CASTING MACHINE ADJUSTER [address] [place] [address] Pain in soft tissues of limb Social History Tobacco Use Types Packs/Day Years Used Date Smoking Tobacco: Never Assessed Comments Unknown Sex and Gender Information Value Date Recorded Sex Assigned at Not on file Legal Sex Female 9:51 AM MARITIME PILOT Gender Identity Not on file Sexual Orientation Not on file documented as of this encounter Plan of Treatment Not on file documented as of this encounter Procedures Procedure Name Priority Date/Time Associated Diagnosis Comments XR FOOT 3+ VW Routine 11/23/2014 1:13 PM MARITIME PILOT XR FOOT 3+ VW Routine 11/23/2014 1:13 PM MARITIME PILOT documented in this encounter Results * XR Foot 3+ Vw (11/23/2014 1:13 PM MARITIME PILOT) Anatomical Region Laterality Modality N/A Radiographic [place] ging 11/23/2014 1:13 PM MARITIME PILOT Narrative 11/23/2014 1:43 PM MARITIME PILOT AMI PENNINGTON M.D. FINAL REPORT ACC# ??Date Time ??Exam [id number] Nov 23, 2014 13:13:00 16319 Foot Complt. min 3 views L EXAMINATION: ?Left foot complete minimum 3 views HISTORY: ??Left foot pain FINDINGS: ?? Three weight-bearing views of the left foot are performed without comparison. There is normal alignment of the left foot. There is no fracture. The joint spaces are normal. IMPRESSION: ?? Normal left foot radiographs. Requested By: HARJEET MONET. Dictated By: ?? AMI PENNINGTON M.D. ??on Nov 23 2014 ??1:43P This document has been electronically signed by: AMI PENNINGTON M.D. on Nov 23 2014 ??1:43P Procedure Note Provider, MD Kole - 02/03/2017 AMI PENNINGTON M.D. FINAL REPORT ACC# Date Time Exam [id number] Nov 23, 2014 13:13:00 06729 Foot Complt. min 3 views L EXAMINATION: Left foot complete minimum 3 views HISTORY: Left foot pain FINDINGS: Three weight-bearing views of the left foot are performed without comparison. There is normal alignment of the left foot. There is no fracture. The joint spaces are normal. IMPRESSION: Normal left foot radiographs. Requested By: HARJEET MONET. Dictated By: AMI PENNINGTON M.D. on Nov 23 2014 1:43P This document has been electronically signed by: AMI PENNINGTON M.D. on Nov 23 2014 1:43P us Historical Provider MD SINGLETARY XR PROCEDURES Final R esult * XR Foot 3+ Vw (11/23/2014 1:13 PM MARITIME PILOT) Anatomical Region Laterality Modality N/A Radiographic Garden[place] ging 11/23/2014 1:13 PM MARITIME PILOT Narrative 11/23/2014 1:38 PM MARITIME PILOT AMI PENNINGTON M.D. FINAL REPORT ACC# ??Date Time ??Exam [id number] Nov 23, 2014 13:13:00 43692 Foot Complt. min 3 views R EXAMINATION: ?Right foot complete minimum 3 views HISTORY: ??Right foot pain FINDINGS: ?? Three weight-bearing views of the right foot are performed without comparison. There is normal alignment of the right foot. The joint spaces are normal. There is no fracture. IMPRESSION: ?? Normal right foot radiographs. Requested By: HARJEET MONET Dictated By: ?? AMI PENNINGTON M.D. ??on Nov 23 2014 ??1:38P This document has been electronically signed by: AMI PENNINGTON M.D. on Nov 23 2014 ??1:38P Procedure Note Provider, MD Kole - 02/03/2017 AMI PENNINGTON M.D. FINAL REPORT ACC# Date Time Exam [id number] Nov 23, 2014 13:13:00 [id number] Foot Complt. min 3 views R EXAMINATION: Right foot complete minimum 3 views HISTORY: Right foot pain FINDINGS: Three weight-bearing views of the right foot are performed without comparison. There is normal alignment of the right foot. The joint spaces are normal. There is no fracture. IMPRESSION: Normal right foot radiographs. Requested By: HARJEET MONET Dictated By: AMI PENNINGTON M.D. on Nov 23 2014 1:38P This document has been electronically signed by: AMI PENNINGTON M.D. on Nov 23 2014 1:38P us Historical Provider MD SINGLETARY XR PROCEDURES Final R esult documented in this encounter Visit Diagnoses Diagnosis Pain in soft tissues of limb documented in this encounter
--- OUTSIDE RECORDS SUMMARY | 2024-10-17 03:16 | XMS_ITS | Encounter Summary ---
Author Organization [facility] Facility Care Team Providers Care Maxillofacial Pathology Name Role Phone Unavailable Primary Care Provider Unavailabl e Encounter Details Date Type Department Care Team (Late st Contact Info) Description 06/27/2014 - 06/27/2014 11:59 PM CDT Hospital Encounter [facility] [place] Crystal, [place] [address] [place] [address] Localized osteoarthrosis, lower leg; Pain in soft tissues of limb Social History Tobacco Use Types Packs/Day Years Used Date Smoking Tobacco: Never Assessed Comments Unknown Sex and Gender Information Value Date Recorded Sex Assigned at Not on file Legal Sex Female 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 FINAL REPORT ACC# ??Date Time ??Exam [id number] Jun 27, 2014 17:26:00 [id number] Tibia Fibula 2 views R EXAMINATION: ? Right tibia and fibula, 2 views HISTORY: ??Leg pain FINDINGS: ??Two-view examination of the right leg is performed. There are no prior studies for comparison. There is no fracture, healing stress fracture, or bone abnormality. The soft tissues appear normal. IMPRESSION: ?? Normal examination of the right leg. Requested By: THAI URENA M.D. Dictated By: ?? AGUS CABALLERO M.D. ??on Jun 27 2014 ??5:33P This document has been electronically signed by: AGUS CABALLERO M.D. on Jun 27 2014 ??5:33P [id number] Procedure Note Provider, MD Kole - 02/03/2017 AGUS CABALLERO M.D. FINAL REPORT ACC# Date Time Exam [id number] Jun 27, 2014 17:26:00 [id number] Tibia Fibula 2 views R EXAMINATION: Right tibia and fibula, 2 views HISTORY: Leg pain FINDINGS: Two-view examination of the right leg is performed. There are no prior studies for comparison. There is no fracture, healing stress fracture, or bone abnormality. The soft tissues appear normal. IMPRESSION: Normal examination of the right leg. Requested By: THAI URENA M.D. Dictated By: AGUS CABALLERO M.D. on Jun 27 2014 5:33P This document has been electronically signed by: AGUS CABALLERO M.D. on Jun 27 2014 5:33P [id number] us Historical Provider MD SINGLETARY XR PROCEDURES Final R esult * XR Knee 4+ VW (06/27/2014 4:27 PM CDT) Anatomical Region Laterality Modality N/A Radiographic [place] ging 06/27/2014 4:27 PM CDT Narrative 06/27/2014 5:26 PM CDT AGUS CABALLERO, M.D. JUSTINE ONUR, M.D. FINAL REPORT The radiology attending physician has personally reviewed this study, and has reviewed and/or edited this written report and agrees with it. ACC# ??Date Time ??Exam [id number] Jun 27, 2014 16:27:00 [id number] Knee Complete min 4 views R ACC# ??Date Time ??Exam [id number] Jun 27, 2014 16:27:00 10772 Knee Complete min 4 views R EXAMINATION: Right knee complete minimum 4 views HISTORY: ??Knee meniscus tear FINDINGS: ??Four views of the right knee include and a Alberto, Merchant, and supine AP examination of both knees. Comparison is to a study from 02/01/2013. The joint spaces are normal and symmetric. On the right, there is no fracture or bone abnormality. There is no effusion. There has been no change since the prior examination. ?? IMPRESSION: Normal examination of the right knee. ?? Requested By: THAI URENA M.D. Dictated By: ?? JUSTINE MOHR M.D. ??on Jun 27 2014 ??5:04P This document has been electronically signed by: AGUS CABALLERO M.D. on Jun 27 2014 ??5:26P [id number] Procedure Note Provider, MD Kole - 02/03/2017 AGUS CABALLERO M.D. JUSTINE MOHR M.D. FINAL REPORT The radiology attending physician has personally reviewed this study, and has reviewed and/or edited this written report and agrees with it. ACC# Date Time Exam [id number] Jun 27, 2014 16:27:00 [id number] Knee Complete min 4 views R ACC# Date Time Exam [id number] Jun 27, 2014 16:27:00 [id number] Knee Complete min 4 views R EXAMINATION: Right knee complete minimum 4 views HISTORY: Knee meniscus tear FINDINGS: Four views of the right knee include and a Alberto, Merchant, and supine AP examination of both knees. Comparison is to a study from 02/01/2013. The joint spaces are normal and symmetric. On the right, there is no fracture or bone abnormality. There is no effusion. There has been no change since the prior examination. IMPRESSION: Normal examination of the right knee. Requested By: THAI URENA M.D. Dictated By: JUSTINE MOHR M.D. on Jun 27 2014 5:04P This document has been electronically signed by: AGUS CABALLERO M.D. on Jun 27 2014 5:26P [id number] us Historical Provider MD SINGLETARY XR PROCEDURES Final R esult documented in this encounter Visit Diagnoses Diagnosis Localized osteoarthrosis, lower leg Localized osteoarthrosis not specified whether primary or secondary, lower leg Pain in soft tissues of limb documented in this encounter
--- OUTSIDE RECORDS SUMMARY | 2024-10-17 03:16 | XMS_ITS | Encounter Summary ---
Author Organization [facility] Facility Care Team Providers Care Director Of Scientific Research Name Role Phone Unavailable Primary Care Provider Unavailabl e Encounter Details Date Type Department Care Team (Latest Contact Info) Description 08/29/2009 6:38 AM DIRECTOR OF CORPORATE SPONSORSHIPS - 08/29/2009 9:37 AM DIRECTOR OF CORPORATE SPONSORSHIPS Hospital Encounter [facility] Estefania Platt MD [address] [facility] [address] [place] [id number] Diaphragmatic hernia; Irritable colon; Asthma; Myalgia and myositis; Other dyspnea and respiratory abnormality; Exercise-induced bronchospasm; Migraine Social History Tobacco Use Types Packs/Day Years Used Date Smoking Tobacco: Never Assessed Comments Unknown Sex and Gender Information Value Date Recorded Sex Assigned at Not on file Legal Sex Female 9:51 AM DIRECTOR OF CORPORATE SPONSORSHIPS Gender Identity Not on file Sexual Orientation Not on file documented as of this encounter Plan of Treatment Not on file documented as of this encounter Visit Diagnoses Diagnosis Diaphragmatic hernia Diaphragmatic hernia without mention of obstruction or gangrene Irritable colon Asthma Unspecified asthma Myalgia and myositis Unspecified myalgia and myositis Other dyspnea and respiratory abnormality Exercise-induced bronchospasm Exercise induced bronchospasm Migraine Migraine, unspecified, without mention of intractable migraine without mention of status migrainosus documented in this encounter
--- OUTSIDE RECORDS SUMMARY | 2024-10-17 03:16 | XMS_ITS | Encounter Summary ---
Author Organization [facility] Facility Care Team Providers Care Pool Attendant Name Role Phone Unavailable Primary Care Provider Unavailabl e Encounter Details Date Type Department Care Team (Latest Contact Info) Description 10/30/2015 6:34 AM PAIRER - 10/30/2015 11:59 PM PAIRER Hospital Encounter [facility] Jim Shelby MD [address] [place] [address] Zaina Causey PA [address] [place] [address] Abdominal distension (gaseous); Epigastric pain; Nausea; Gastro-esophageal reflux disease without esophagitis Social History Tobacco Use Types Packs/Day Years Used Date Smoking Tobacco: Never Assessed Comments Unknown Sex and Gender Information Value Date Recorded Sex Assigned at Not on file Legal Sex Female 9:51 AM PAIRER Gender Identity Not on file Sexual Orientation Not on file documented as of this encounter Plan of Treatment Not on file documented as of this encounter Procedures Procedure Name Priority Date/Time Associated Diagnosis Comments PLASMA TRIIODOTHYRONINE (T3), FREE Routine 10/30/2015 6:42 AM PAIRER PLASMA THYROXINE (T4), FREE Routine 10/30/2015 6:42 AM PAIRER PLASMA THYROID-STIMULATING HORMONE (TSH) Routine 10/30/2015 6:42 AM PAIRER PLASMA LIPASE Routine 10/30/2015 6:42 AM PAIRER PLASMA COMPREHENSIVE METABOLIC PANEL Routine 10/30/2015 6:42 AM PAIRER PLASMA AMYLASE Routine 10/30/2015 6:42 AM PAIRER BLOOD CELL COUNT (CBC), MORPHOLOGIC EXAM Routine 10/30/2015 6:42 AM PAIRER DISCHARGE LABORATORY CUMULATIVE REPORT 10/30/2015 documented in this encounter Results * (ABNORMAL) Blood cell count (CBC), morphologic exam (10/30/2015 6:42 AM PAIRER) WBC 3.3(L) 4.5 - 11.0 K/cumm HISTORICAL RESULTS RBC 4.63 3.80 - 5.40 M/cumm HISTORICAL RESULTS Hgb 14.0 11.5 - 16.0 g/dl HISTORICAL RESULTS Hct 41.7 34.0 - 48.0 % HISTORICAL RESULTS MCV 90.0 80.0 - 100.0 fl HISTORICAL RESULTS MCH 30.2 27.0 - 33.0 pg HISTORICAL RESULTS MCHC 33.5 32.0 - 36.0 g/dl HISTORICAL RESULTS Rdw 12.8 11.5 - 14.5 % HISTORICAL RESULTS Platelets 159 140 - 400 K/cumm HISTORICAL RESULTS MPV 9.9 7.4 - 10.4 fl HISTORICAL RESULTS Neutrophils 40.0(L) 42.0 - 75.0 % HISTORICAL RESULTS Lymphocytes 41.6 21.0 - 51.0 % HISTORICAL RESULTS Monos 9.6(H) 2.0 - 9.0 % HISTORICAL RESULTS Eosinophils 8.0 0.0 - 10.0 % HISTORICAL RESULTS Basophils 0.8 0.0 - 1.0 % HISTORICAL RESULTS Neutrophils, abs 1.3(L) 1.8 - 7.7 K/cumm HISTORICAL RESULTS Lymphocytes, abs 1.4 1.0 - 4.8 K/cumm HISTORICAL RESULTS Monocytes, absolute 0.3 0.0 - 0.8 K/cumm HISTORICAL RESULTS Eosinophils, abs 0.3 0.0 - 0.5 K/cumm HISTORICAL RESULTS Basophils, abs 0.0 0.0 - 0.2 K/cumm HISTORICAL RESULTS Blood specimen (specimen) 10/30/2015 6:42 AM PAIRER Zaina NEWMAN LAB BLOOD ORDERABLES Fi nal Result Performing Organization Address City/[facility] Co de Phone Number HISTORICAL RESULTS * Plasma comprehensive metabolic panel (10/30/2015 6:42 AM PAIRER) Sodium 140 136 - 146 mmol/L HISTORICAL RESULTS K, pl 4.5 3.3 - 4.9 mmol/L HISTORICAL RESULTS Chloride 105 98 - 108 mmol/L HISTORICAL RESULTS CO2 29 22 - 33 mmol/L HISTORICAL RESULTS BUN 11 7 - 18 mg/dl HISTORICAL RESULTS Glucose 86 70 - 140 mg/dl HISTORICAL RESULTS Comment: Glucose is assumed to be non-fasting. ?? Fasting Glucose normal ranges are: 0 days - 2 months: ? 40 mg/dL - 100 mg/dL 2 months - 999 years: ?70 mg/dL - 99 mg/dL Creatinine 0.76 0.50 - 1.50 mg/dl HISTORICAL RESULTS eGFR >60 ml/min/1.7 3 m2 HISTORICAL RESULTS Comment: GFR Reference Range: = > 60 mL/min/1.73 m2 This result has been calculated assuming the patient is Non-. ??If the patient is , please multiply this result by 1.21. The GFR value is not recommended for medication dose adjustment for renal function, creatinine clearance values should be used. Calcium 9.6 8.5 - 10.5 mg/dl HISTORICAL RESULTS Bilirubin 0.9 0.1 - 1.2 mg/dl HISTORICAL RESULTS Protein, pl 6.3 6.0 - 8.5 g/dl HISTORICAL RESULTS Alb 4.1 3.4 - 5.0 g/dl HISTORICAL RESULTS Alk phos 57 38 - 126 IUnits/L HISTORICAL RESULTS ALT 26 14 - 54 IUnits/L HISTORICAL RESULTS AST 30 15 - 41 IUnits/L HISTORICAL RESULTS Plasma 10/30/2015 6:42 AM PAIRER Zaina NEWMAN LAB BLOOD ORDERABLES Fi nal Result Performing Organization Address City/[facility] Co de Phone Number HISTORICAL RESULTS * Plasma triiodothyronine (T3), free (10/30/2015 6:42 AM PAIRER) Free T3 2.78 2.30 - 4.20 pg/ml HISTORICAL RESULTS Plasma 10/30/2015 6:42 AM PAIRER Zaina NEWMAN LAB BLOOD ORDERABLES Fi nal Result Performing Organization Address [facility] de Phone Number HISTORICAL RESULTS * Plasma thyroxine (T4), free (10/30/2015 6:42 AM PAIRER) Free T4 0.74 0.58 - 1.64 ng/dl HISTORICAL RESULTS Comment: Reference ranges for women: 1st trimester: ?0.52-1.10 ng/dL 2nd trimester: ?? 0.45-0.99 ng/dL 3rd trimester: ?0.48-0.95 ng/dL Plasma 10/30/2015 6:42 AM PAIRER Result [facility] Zaina NEWMAN LAB BLOOD ORDERABLES Fi nal Result Performing Organization Address [facility] de Phone Number HISTORICAL RESULTS * Plasma thyroid-stimulating hormone (TSH) (10/30/2015 6:42 AM PAIRER) TSH 2.66 0.34 - 5.60 mcIUnits/m l HISTORICAL RESULTS Comment: TSH Interpretive Guide: Crawford: ??TSH surges within the first 15 to 60 minutes of life reaching peak levels at about 30 minutes. ??Values then decline rapidly and after 1 week are within the Adult Normal Range . Adult: Hyperthyroid ?< ?? 0.1 ?mcIUnits/mL Euthyroid ?0.34 ??- ??5.60 ? mcIUnits/mL Hypothyroid ? > 12.0 ? mcIUnits/mL Plasma 10/30/2015 6:42 AM PAIRER Result [facility] Zaina NEWMAN LAB BLOOD ORDERABLES Fi nal Result Performing Organization Address [facility] de Phone Number HISTORICAL RESULTS * Plasma lipase (10/30/2015 6:42 AM PAIRER) Lip 23 8 - 57 Units/L HISTORICAL RESULTS Plasma 10/30/2015 6:42 AM PAIRER Zaina NEWMAN LAB BLOOD ORDERABLES Fi nal Result Performing Organization Address [facility] de Phone Number HISTORICAL RESULTS * Plasma amylase (10/30/2015 6:42 AM PAIRER) Ai, pl 38 28 - 100 IUnits/L HISTORICAL RESULTS Plasma 10/30/2015 6:42 AM PAIRER Zaina NEWMAN LAB BLOOD ORDERABLES Fi nal Result Performing Organization Address [facility] de Phone Number HISTORICAL RESULTS * DISCHARGE LABORATORY CUMULATIVE REPORT (10/30/2015) Narrative 10/30/2015 Ordered by an unspecified provider. us Historical Provider LAB BLOOD ORDERABLES Jonna l Result documented in this encounter Visit Diagnoses Diagnosis Abdominal distension (gaseous) Epigastric pain Abdominal pain, epigastric Nausea Nausea alone Gastro-esophageal reflux disease without esophagitis documented in this encounter
--- OUTSIDE RECORDS SUMMARY | 2024-10-17 03:16 | XMS_ITS | Encounter Summary ---
Author Organization [facility] Facility Care Team Providers Care Blind Aide Name Role Phone Unavailable Primary Care Provider Unavailabl e Encounter Details Date Type Department Care Team (Latest Contact Info) Description 07/25/2014 - 07/25/2014 11:59 PM CDT Hospital Encounter [facility] CLINCONV Crystal, [place] [address] [place] [address] Pain in soft tissues of limb; Pain in joint, lower leg; Localized osteoarthrosis, lower leg; Other bursitis disorders; Other synovitis and tenosynovitis Social History Tobacco Use Types Packs/Day Years Used Date Smoking Tobacco: Never Assessed Comments Unknown Sex and Gender Information Value Date Recorded Sex Assigned at Not on file 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 Gender Identity Not on file Sexual Orientation Not on file documented as of this encounter Plan of Treatment Not on file documented as of this encounter Procedures Procedure Name Priority Date/Time Associated Diagnosis Comments MRI LOWER EXTREMITY JOINT WO CONTRAST Routine 07/25/2014 3:50 PM CDT MRI LOWER EXTREMITY NON JOINT WO CONTRAST Routine 07/25/2014 3:50 PM CDT documented in this encounter Results * MRI Lower Extremity Joint WO Contrast (07/25/2014 3:50 PM CDT) Anatomical Region Laterality Modality N/A Magnetic Resonan ce 07/25/2014 3:50 PM CDT Narrative 07/25/2014 4:52 PM CDT DILSHAD COE M.D. Corby ROWAN M.D. FINAL REPORT The radiology attending physician has personally reviewed this study, and has reviewed and/or edited this written report and agrees with it. ACC# ??Date Time ??Exam [id number] Jul 25, 2014 15:50:00 [id number] MRI Jnt Lower Extr wo cont R [id number] Jul 25, 2014 15:50:00 [id number] MRI Lower Extrem wo cont R ACC# ??Date Time ??Exam [id number] Jul 25, 2014 15:50:00 [id number] MRI Jnt Lower Extr wo cont R [id number] Jul 25, 2014 15:50:00 03055 MRI Lower Extrem wo cont R EXAMINATION: 1. Right knee MRI without contrast 2. Right leg MRI without contrast HISTORY: ??Chronic knee and leg pain, knee bursitis FINDINGS: ?? Right knee and right tibia fibula radiographs dated 06/27/2014 were reviewed and are normal. Comparison is also made to right knee MR dated 02/05/2013. Right knee: MR examination of the right knee is performed without contrast using an extremity coil. Transverse fast spin echo, sagittal fast spin echo and coronal short TR/TE and fast spin echo images were obtained. In the medial compartment, there is posterior horn intrameniscal signal which does not meet strict criteria for tear. The articular cartilage is normal. In the lateral compartment, the meniscus is intact. The articular cartilage is normal. In the patellofemoral compartment, the articular cartilage is normal. There is unchanged mild distal lateral quadriceps tendinopathy. The patellar tendon is normal. There is worsened prepatellar and superficial infrapatellar bursitis. The cruciate ligaments are intact. The medial collateral ligament and lateral collateral ligament complex are normal. There is a small knee effusion. No bone marrow replacing lesions are seen. Right leg: MR examination of both legs is performed using a body coil. Coronal short TR/TE and STIR images and transverse short TR/TE and STIR images of old legs was performed. Additionally, sagittal short TR/TE and STIR images of the right leg were obtained. No contrast was given. There are no bone marrow replacing lesions in the tibiae or fibulae. No evidence of fracture, stress fracture or avascular necrosis. The muscles are symmetric bilaterally without atrophy or edema. ?? IMPRESSION: 1. Worsened right prepatellar and superficial infrapatellar bursitis. 2. Unchanged mild right distal quadriceps tendinopathy. 3. Intrameniscal signal within the posterior horn of the right medial meniscus that does not meet criteria for meniscal tear. 4. Normal MR examination of the right leg. ?? Requested By: THAI URENA M.D. Dictated By: ?? REKHA ROWAN M.D. ??on Jul 25 2014 ??4:37P This document has been electronically signed by: DILSHAD COE M.D. F on Jul 25 2014 ??4:52P [id number] Procedure Note Provider, MD Kole - 02/03/2017 DILSHAD COE M.D. F REKHA ROWAN M.D. FINAL REPORT The radiology attending physician has personally reviewed this study, and has reviewed and/or edited this written report and agrees with it. ACC# Date Time Exam [id number] Jul 25, 2014 15:50:00 [id number] MRI Jnt Lower Extr wo cont R [id number] Jul 25, 2014 15:50:00 [id number] MRI Lower Extrem wo cont R ACC# Date Time Exam [id number] Jul 25, 2014 15:50:00 [id number] MRI Jnt Lower Extr wo cont R [id number] Jul 25, 2014 15:50:00 [id number] MRI Lower Extrem wo cont R EXAMINATION: 1. Right knee MRI without contrast 2. Right leg MRI without contrast HISTORY: Chronic knee and leg pain, knee bursitis FINDINGS: Right knee and right tibia fibula radiographs dated 06/27/2014 were reviewed and are normal. Comparison is also made to right knee MR dated 02/05/2013. Right knee: MR examination of the right knee is performed without contrast using an extremity coil. Transverse fast spin echo, sagittal fast spin echo and coronal short TR/TE and fast spin echo images were obtained. In the medial compartment, there is posterior horn intrameniscal signal which does not meet strict criteria for tear. The articular cartilage is normal. In the lateral compartment, the meniscus is intact. The articular cartilage is normal. In the patellofemoral compartment, the articular cartilage is normal. There is unchanged mild distal lateral quadriceps tendinopathy. The patellar tendon is normal. There is worsened prepatellar and superficial infrapatellar bursitis. The cruciate ligaments are intact. The medial collateral ligament and lateral collateral ligament complex are normal. There is a small knee effusion. No bone marrow replacing lesions areseen. Right leg: MR examination of both legs is performed using a body coil. Coronal short TR/TE and STIR images and transverse short TR/TE and STIR images of old legs was performed. Additionally, sagittal short TR/TE and STIR images of the right leg were obtained. No contrast was given. There are no bone marrow replacing lesions in the tibiae or fibulae. No evidence of fracture, stress fracture or avascular necrosis. The muscles are symmetric bilaterally without atrophy or edema. IMPRESSION: 1. Worsened right prepatellar and superficial infrapatellar bursitis. 2. Unchanged mild right distal quadriceps tendinopathy. 3. Intrameniscal signal within the posterior horn of the right medial meniscus that does not meet criteria for meniscal tear. 4. Normal MR examination of the right leg. Requested By: THAI URENA M.D. Dictated By: REKHA ROWAN M.D. on Jul 25 2014 4:37P This document has been electronically signed by: DILSHAD COE M.D. F on Jul 25 2014 4:52P [id number] Historical Provider MD [facility] MRI PROCEDURES Final Result * MRI Lower Extremity Non Joint WO Contrast (07/25/2014 3:50 PM CDT) Anatomical Region Laterality Modality N/A Magnetic Resonan ce 07/25/2014 3:50 PM CDT Narrative 07/25/2014 4:52 PM CDT Wilver PETERS M.D. FINAL REPORT The radiology attending physician has personally reviewed this study, and has reviewed and/or edited this written report and agrees with it. ACC# ??Date Time ??Exam [id number] Jul 25, 2014 15:50:00 [id number] MRI Jnt Lower Extr wo cont R [id number] Jul 25, 2014 15:50:00 [id number] MRI Lower Extrem wo cont R ACC# ??Date Time ??Exam [id number] Jul 25, 2014 15:50:00 [id number] MRI Jnt Lower Extr wo cont R [id number] Jul 25, 2014 15:50:00 [id number] MRI Lower Extrem wo cont R EXAMINATION: 1. Right knee MRI without contrast 2. Right leg MRI without contrast HISTORY: ??Chronic knee and leg pain, knee bursitis FINDINGS: ?? Right knee and right tibia fibula radiographs dated 06/27/2014 were reviewed and are normal. Comparison is also made to right knee MR dated 02/05/2013. Right knee: MR examination of the right knee is performed without contrast using an extremity coil. Transverse fast spin echo, sagittal fast spin echo and coronal short TR/TE and fast spin echo images were obtained. In the medial compartment, there is posterior horn intrameniscal signal which does not meet strict criteria for tear. The articular cartilage is normal. In the lateral compartment, the meniscus is intact. The articular cartilage is normal. In the patellofemoral compartment, the articular cartilage is normal. There is unchanged mild distal lateral quadriceps tendinopathy. The patellar tendon is normal. There is worsened prepatellar and superficial infrapatellar bursitis. The cruciate ligaments are intact. The medial collateral ligament and lateral collateral ligament complex are normal. There is a small knee effusion. No bone marrow replacing lesions are seen. Right leg: MR examination of both legs is performed using a body coil. Coronal short TR/TE and STIR images and transverse short TR/TE and STIR images of old legs was performed. Additionally, sagittal short TR/TE and STIR images of the right leg were obtained. No contrast was given. There are no bone marrow replacing lesions in the tibiae or fibulae. No evidence of fracture, stress fracture or avascular necrosis. The muscles are symmetric bilaterally without atrophy or edema. ?? IMPRESSION: 1. Worsened right prepatellar and superficial infrapatellar bursitis. 2. Unchanged mild right distal quadriceps tendinopathy. 3. Intrameniscal signal within the posterior horn of the right medial meniscus that does not meet criteria for meniscal tear. 4. Normal MR examination of the right leg. ?? Requested By: THAI URENA M.D. Dictated By: ?? REKHA ROWAN M.D. ??on Jul 25 2014 ??4:37P This document has been electronically signed by: DILSHAD COE M.D. F on Jul 25 2014 ??4:52P [id number] Procedure Note Provider, MD Kole - 02/03/2017 DILSHAD COE M.D. Corby ROWAN M.D. FINAL REPORT The radiology attending physician has personally reviewed this study, and has reviewed and/or edited this written report and agrees with it. ACC# Date Time Exam [id number] Jul 25, 2014 15:50:00 09500 MRI Jnt Lower Extr wo cont R [id number] Jul 25, 2014 15:50:00 [id number] MRI Lower Extrem wo cont R ACC# Date Time Exam [id number] Jul 25, 2014 15:50:00 [id number] MRI Jnt Lower Extr wo cont R [id number] Jul 25, 2014 15:50:00 [id number] MRI Lower Extrem wo cont R EXAMINATION: 1. Right knee MRI without contrast 2. Right leg MRI without contrast HISTORY: Chronic knee and leg pain, knee bursitis FINDINGS: Right knee and right tibia fibula radiographs dated 06/27/2014 were reviewed and are normal. Comparison is also made to right knee MR dated 02/05/2013. Right knee: MR examination of the right knee is performed without contrast using an extremity coil. Transverse fast spin echo, sagittal fast spin echo and coronal short TR/TE and fast spin echo images were obtained. In the medial compartment, there is posterior horn intrameniscal signal which does not meet strict criteria for tear. The articular cartilage is normal. In the lateral compartment, the meniscus is intact. The articular cartilage is normal. In the patellofemoral compartment, the articular cartilage is normal. There is unchanged mild distal lateral quadriceps tendinopathy. The patellar tendon is normal. There is worsened prepatellar and superficial infrapatellar bursitis. The cruciate ligaments are intact. The medial collateral ligament and lateral collateral ligament complex are normal. There is a small knee effusion. No bone marrow replacing lesions areseen. Right leg: MR examination of both legs is performed using a body coil. Coronal short TR/TE and STIR images and transverse short TR/TE and STIR images of old legs was performed. Additionally, sagittal short TR/TE and STIR images of the right leg were obtained. No contrast was given. There are no bone marrow replacing lesions in the tibiae or fibulae. No evidence of fracture, stress fracture or avascular necrosis. The muscles are symmetric bilaterally without atrophy or edema. IMPRESSION: 1. Worsened right prepatellar and superficial infrapatellar bursitis. 2. Unchanged mild right distal quadriceps tendinopathy. 3. Intrameniscal signal within the posterior horn of the right medial meniscus that does not meet criteria for meniscal tear. 4. Normal MR examination of the right leg. Requested By: THAI URENA M.D. Dictated By: REKHA ROWAN M.D. on Jul 25 2014 4:37P This document has been electronically signed by: DILSHAD COE M.D. F on Jul 25 2014 4:52P [id number] Historical Provider MD [facility]LET[facility] MRI PROCEDURES Final Result documented in this encounter Visit Diagnoses Diagnosis Pain in soft tissues of limb Pain in joint, lower leg Localized osteoarthrosis, lower leg Localized osteoarthrosis not specified whether primary or secondary, lower leg Other bursitis disorders Other synovitis and tenosynovitis documented in this encounter
--- OUTSIDE RECORDS SUMMARY | 2024-10-17 03:16 | XMS_ITS | Encounter Summary ---
Author Organization [facility] Facility Care Team Providers Care Supervisor Type Disk Quality Control Name Role Phone Unavailable Primary Care Provider Unavailabl e Encounter Details Date Type Department Care Team (Late st Contact Info) Description 04/03/2015 - 04/03/2015 11:59 PM CDT Hospital Encounter [facility] Piotr Reese MD [address] [place] [address] Pain in thoracic spine Social History Tobacco Use Types Packs/Day Years Used Date Smoking Tobacco: Never Assessed Comments Unknown Sex and Gender Information Value Date Recorded Sex Assigned at Not on file Legal Sex Female 9:51 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 INOCENCIO BAUTISTA M.D. FINAL REPORT The radiology attending physician has personally reviewed this study, and has reviewed and/or edited this written report and agrees with it. ACC# ??Date Time ??Exam [id number] Apr 03, 2015 18:54:00 [id number] MRI Thoracic Spine wo cont EXAMINATION: ?? Magnetic resonance imaging (MRI) of the thoracic spine without and with contrast HISTORY: Right-sided radicular thoracic pain TECHNIQUE: Multiplanar multi-weighted MRI of the thoracic spine was performed without and with intravenous contrast using the standard thoracic spine protocol. COMPARISON: MRI of the thoracic spine dated 04/14/2012 FINDINGS: The alignment of the thoracic spine is normal. There is again a T1 and T2 predominantly bright lesion involving the entire C7 vertebral body likely representing a hemangioma. There are also presumed T1 the T2 bright small hemangioma of the T4, T7 ,T8 and T12 vertebral bodies. There is a subtle contour abnormality of the thoracic spinal cord with scalloping of the posterior margin of the cord at T6 level. The signal within the cord is normal. The spinal cord at this level appears thin compared to adjacent levels of the cord. There is no mass, however the subarachnoid space appears widened at this level. The appearance is unchanged compared to prior thoracic MRI dated 04/14/2012. Mild discogenic degenerative changes of the lower thoracic spine are seen. There are a few presumed perineural cyst, the largest is at the left T11-T12. Limited views of the chest and abdomen show no soft tissue abnormality. The aorta is normal IMPRESSION: ?? 1. Redemonstration of subtle contour abnormality of the thoracic cord at the posterior margin of the T6 vertebral body which may be secondary to arachnoid adhesion, although herniation of the cord or subarachnoid cyst may have a similar appearance. The appearance remains unchanged since the prior MRI of the thoracic spine dated 04/13/2012. 2. Mild degenerative changes of the thoracic spine, not substantially changed when compared to prior examination. Requested By: PIOTR REESE M.D. Dictated By: ?? INOCENCIO BAUTISTA M.D. ??on Apr 04 2015 ??9:47A This document has been electronically signed by: ISABEL HERNANDEZ M.D. on Apr 05 2015 12:10P [id number] Procedure Note Provider, MD Kole - 02/03/2017 ISABEL SHIMONY, M.D. POORIA JAVADI, M.D. FINAL REPORT The radiology attending physician has personally reviewed this study, and has reviewed and/or edited this written report and agrees with it. [facility]# Date Time Exam [id number] Apr 03, 2015 18:54:00 [id number] MRI Thoracic Spine wo cont EXAMINATION: Magnetic resonance imaging (MRI) of the thoracic spine without and with contrast HISTORY: Right-sided radicular thoracic pain TECHNIQUE: Multiplanar multi-weighted MRI of the thoracic spine was performed without and with intravenous contrast using the standard thoracic spine protocol. COMPARISON: MRI of the thoracic spine dated 04/14/2012 FINDINGS: The alignment of the thoracic spine is normal. There is again a T1 and T2 predominantly bright lesion involving the entire C7 vertebral body likely representing a hemangioma. There are also presumed T1 the T2 bright small hemangioma of the T4, T7 ,T8 and T12 vertebral bodies. There is a subtle contour abnormality of the thoracic spinal cord with scalloping of the posterior margin of the cord at T6 level. The signal within the cord is normal. The spinal cord at this level appears thin compared to adjacent levels of the cord. There is no mass, however the subarachnoid space appears widened at this level. The appearance is unchanged compared to prior thoracic MRI dated 04/14/2012. Mild discogenic degenerative changes of the lower thoracic spine are seen. There are a few presumed perineural cyst, the largest is at the left T11-T12. Limited views of the chest and abdomen show no soft tissue abnormality. The aorta is normal IMPRESSION: 1. Redemonstration of subtle contour abnormality of the thoracic cord at the posterior margin of the T6 vertebral body which may be secondary to arachnoid adhesion, although herniation of the cord or subarachnoid cyst may have a similar appearance. The appearance remains unchanged since the prior MRI of the thoracic spine dated 04/13/2012. 2. Mild degenerative changes of the thoracic spine, not substantially changed when compared to prior examination. Requested By: PIOTR REESE M.D. Dictated By: INOCENCIO BAUTISTA M.D. on Apr 04 2015 9:47A This document has been electronically signed by: ISABEL HERNANDEZ M.D. on Apr 05 2015 12:10P [id number] Historical Provider MD SINGLETARY MRI PROCEDURES Final Result documented in this encounter Visit Diagnoses Diagnosis Pain in thoracic spine documented in this encounter
--- OUTSIDE RECORDS SUMMARY | 2024-10-17 03:16 | XMS_ITS | Encounter Summary ---
Author Organization [facility]/Health system Facility Care Team Providers Care Petroleum Engineering Teacher Name Role Phone Unavailable Primary Care Provider Unavailabl e Encounter Details Date Type Department Care Team (Latest Contact Info) Description 11/23/2016 8:26 AM RUBBER HEEL AND SOLE PRESS TENDER - 11/23/2016 11:59 PM RUBBER HEEL AND SOLE PRESS TENDER Hospital Encounter [facility] Jim Shelby MD [address] [place] [address] Jose M Causey PA [address] [place] [address] Epigastric pain; Other specified diseases of liver; Acquired absence of other specified parts of digestive tract; Other specified postprocedural states Social History Tobacco Use Types Packs/Day Years Used Date Smoking Tobacco: Never Comments Unknown Sex and Gender Information Value Date Recorded Sex Assigned at Not on file Legal Sex Female 9:51 AM RUBBER HEEL AND SOLE PRESS TENDER Gender Identity Not on file Sexual Orientation Not on file documented as of this encounter Plan of Treatment Not on file documented as of this encounter Procedures Procedure Name Priority Date/Time Associated Diagnosis Comments MRI ABDOMEN W WO CONTRAST Routine 11/23/2016 9:58 AM RUBBER HEEL AND SOLE PRESS TENDER documented in this encounter Results * MRI Abdomen W WO Contrast (11/23/2016 9:58 AM RUBBER HEEL AND SOLE PRESS TENDER) Anatomical Region Laterality Modality Body N/A Magnetic Resonan ce 11/23/2016 9:58 AM RUBBER HEEL AND SOLE PRESS TENDER Narrative 11/23/2016 1:08 PM RUBBER HEEL AND SOLE PRESS TENDER MRI of the abdomen with and without contrast HISTORY: Epigastric pain. ??CT examination of 10/30/2016 described a new tiny liver lesion. ??Prior surgeries include cholecystectomy. Patient is had a prior history of the biliary sphincterotomy. MRI examination of the abdomen is performed in the coronal and axial planes utilizing T1, T2, inversion recovery, in a not a phase gradient echo, and gadolinium-enhanced T1-weighted sequences. Comparison is made to the CT examination of 10/30/2016. ??The patient received Dotarem intravenous contrast. The 3 mm lesion described on the recent CT exam represents a small tiny cyst. ??It is best seen on the post gadolinium imaging. ??No other focal liver pathology is present. ??A trace amount of intrahepatic duct dilatation is present. ??Could be within normal limits. ??The extrahepatic biliary system is of normal caliber. ??The spleen, adrenals, pancreas, and kidneys are within normal limits. ??No retroperitoneal lymphadenopathy is present. ??No definite mesenteric masses are present. ??No ascites is identified. ??Normal enhancement of the abdominal organs are noted. MRCP was performed. ??As described above there is no dilatation of the extrahepatic biliary ductal system. ??Common hepatic duct measures approximately 3.4 mm in diameter and the common bile duct 3.9 mm. ??No definite filling defect suggest choledocholithiasis is identified. Prior cholecystectomy as been performed. IMPRESSION: 1. ??The focal lesion in the right lobe of the liver described on the recent CT exam represents a tiny benign cyst. ??No other focal liver pathology is identified. 2. ??The extrahepatic biliary ductal system is of normal caliber. ??No definite filling defects are present. ??I cannot exclude trace amount of intrahepatic duct dilatation although this may be normal variation. ??Correlate clinically. 3. ??No other intra-abdominal pathology identified. ??See details above. Electronically signed by: Piotr Brewster M.D. Radiologist: MIRIAN ONEIL, PIOTR Smith M.D. ?? Attending: ??GUS WONG ?? Requesting: JOSE M CAUSEY Requesting Fax: ?? Requesting ID: [id number] Attending Fax: ?? Attending ID: ?? Completed Time: ?? 11/23/2016 09:58 AM Dictated Time: ?N/A Transcribed Time: 11/23/2016 1:08 PM Signed by: ?MIRIAN ONEIL, PIOTR Smith ??MJes on 11/23/2016 1:08 PM Report To 1 ID: [id number] Report To 1 Name: JESSE BURK Report To 1 FAX: Report To 2 ID: Report To 2 Name: , Report To 2 FAX: Report To 3 ID: Report To 3 Name: , Report To 3 FAX: NextGen Order #: Procedure Note Provider, MD Kole - 02/19/2017 MRI of the abdomen with and without contrast HISTORY: Epigastric pain. CT examination of 10/30/2016 described a new tiny liver lesion. Prior surgeries include cholecystectomy. Patient is had a prior history of the biliary sphincterotomy. MRI examination of the abdomen is performed in the coronal and axial planes utilizing T1, T2, inversion recovery, in a not a phase gradient echo, and gadolinium-enhanced T1-weighted sequences. Comparison is made to the CT examination of 10/30/2016. The patient received Dotarem intravenous contrast. The 3 mm lesion described on the recent CT exam represents a small tiny cyst. It is best seen on the post gadolinium imaging. No other focal liver pathology is present. A trace amount of intrahepatic duct dilatation is present. Could be within normal limits. The extrahepatic biliary system is of normal caliber. The spleen, adrenals, pancreas, and kidneys are within normal limits. No retroperitoneal lymphadenopathy is present. No definite mesenteric masses are present. No ascites is identified. Normal enhancement of the abdominal organs are noted. MRCP was performed. As described above there is no dilatation of the extrahepatic biliary ductal system. Common hepatic duct measures approximately 3.4 mm in diameter and the common bile duct 3.9 mm. No definite filling defect suggest choledocholithiasis is identified. Prior cholecystectomy as been performed. IMPRESSION: 1. The focal lesion in the right lobe of the liver described on the recent CT exam represents a tiny benign cyst. No other focal liver pathology is identified. 2. The extrahepatic biliary ductal system is of normal caliber. No definite filling defects are present. I cannot exclude trace amount of intrahepatic duct dilatation although this may be normal variation. Correlate clinically. 3. No other intra-abdominal pathology identified. See details above. Electronically signed by: Pitor Brewster M.D. Radiologist: PIOTR BREWSTER MD, M.D. Attending: GUS WONG Requesting: JOSE M CAUSEY Requesting Requesting ID: [id number] Attending Attending ID: Completed Time: 11/23/2016 09:58 AM Dictated Time: N/A Transcribed Time: 11/23/2016 1:08 PM Signed by: PIOTR BREWSTER MD, M.D. on 11/23/2016 1:08 PM Report To 1 ID: [id number] Report To 1 Name: AMAKAIJESSE Report To 1 FAX: Report To 2 ID: Report To 2 Name: , Report To 2 FAX: Report To 3 ID: Report To 3 Name: , Report To 3 FAX: NextGen Order #: us Historical Provider MD SINGLETARY MRI PROCEDURES Final Result documented in this encounter Visit Diagnoses Diagnosis Epigastric pain Abdominal pain, epigastric Other specified diseases of liver Acquired absence of other specified parts of digestive tract Other specified postprocedural states documented in this encounter
--- OUTSIDE RECORDS SUMMARY | 2024-10-17 03:16 | XMS_ITS | Encounter Summary ---
Author Organization [facility] Facility Care Team Providers Care Decorating Kiln Operator Name Role Phone Unavailable Primary Care Provider Unavailabl e Encounter Details Date Type Department Care Team (Latest Contact Info) Description 10/30/2016 6:51 AM CONCESSION MANAGER - 10/30/2016 11:59 PM CONCESSION MANAGER Hospital Encounter [facility]CON[facility] Jim Ceron MD [address] [facility] [address] [place] [address] Right upper quadrant pain; Pain in thoracic spine; Nausea Social History Tobacco Use Types Packs/Day Years Used Date Smoking Tobacco: Never Comments Unknown Sex and Gender Information Value Date Recorded Sex Assigned at Not on file Legal Sex Female 9:51 AM CONCESSION MANAGER Gender Identity Not on file Sexual Orientation Not on file documented as of this encounter Plan of Treatment Not on file documented as of this encounter Procedures Procedure Name Priority Date/Time Associated Diagnosis Comments CT ABDOMEN W CONTRAST Routine 10/30/2016 7:48 AM CONCESSION MANAGER documented in this encounter Results * CT Abdomen W Contrast (10/30/2016 7:48 AM CONCESSION MANAGER) Anatomical Region Laterality Modality Body N/A Computed Tomogra phy 10/30/2016 7:48 AM CONCESSION MANAGER Narrative 10/30/2016 8:[address] abdomen with contrast. HISTORY: Abdominal pain. TECHNIQUE: CT abdomen was done with contrast 95 mL Optiray 350 intravenously. ??Patient reportedly premedicated with prednisone and Benadryl prior to the exam. FINDINGS: Most recent prior exam is dated 05/03/2013. ??There is minor atelectasis at the lung bases. Postop changes right upper quadrant. Bone windows show no definite destructive lesions. Spleen size normal. Adrenal glands appear normal. Pancreas shows no definite mass or inflammation. No definite solid renal mass or hydronephrosis appreciated. Mild fatty liver present along with a 2 mm hypodensity in the lateral liver which is too small to characterize but not clearly seen on prior exam. ??Uncertain significance. A moderate amount of colonic stool is present. IMPRESSION: No cause for the patient's abdominal pain. ??Full details above. Electronically signed by: Elliot Garcia M.D. Radiologist: ELLIOT GARCIA MD ?? Attending: ??JIM CERON ??[place] Requesting: JOSE M MATTHEW Requesting Fax: ?? Requesting ID: [id number] Attending Fax: ?? Attending ID: ?? [id number] Completed Time: ?? 10/30/2016 07:48 AM Dictated Time: ?N/A Transcribed Time: 10/30/2016 08:15 AM Signed by: ?ELLIOT GARCIA MD ?? on 10/30/2016 08:15 AM Report To 1 ID: Report To 1 Name: , Report To 1 FAX: Report To 2 ID: Report To 2 Name: , Report To 2 FAX: Report To 3 ID: Report To 3 Name: , Report To 3 FAX: NextGen Order #: Procedure Note Provider, MD Kole - 02/19/2017 CT abdomen with contrast. HISTORY: Abdominal pain. TECHNIQUE: CT abdomen was done with contrast 95 mL Optiray 350 intravenously. Patient reportedly premedicated with prednisone and Benadryl prior to the exam. FINDINGS: Most recent prior exam is dated 05/03/2013. There is minor atelectasis at the lung bases. Postop changes right upper quadrant. Bone windows show no definite destructive lesions. Spleen size normal. Adrenal glands appear normal. Pancreas shows no definite mass or inflammation. No definite solid renal mass or hydronephrosis appreciated. Mild fatty liver present along with a 2 mm hypodensity in the lateral liver which is too small to characterize but not clearly seen on prior exam. Uncertain significance. A moderate amount of colonic stool is present. IMPRESSION: No cause for the patient's abdominal pain. Full details above. Electronically signed by: Elliot Garcia M.D. Radiologist: ELLIOT GARCIA MD Attending: JIM CERON M.D. Requesting: JOSE M MATTHEW Requesting Requesting ID: [id number] Attending Attending ID: [id number] Completed Time: 10/30/2016 07:48 AM Dictated Time: N/A Transcribed Time: 10/30/2016 08:15 AM Signed by: ELLIOT GARCIA MD on 10/30/2016 08:15 AM Report To 1 ID: Report To 1 Name: , Report To 1 FAX: Report To 2 ID: Report To 2 Name: , Report To 2 FAX: Report To 3 ID: Report To 3 Name: , Report To 3 FAX: NextGen Order #: us Historical Provider MD SINGLETARY CT PROCEDURES Final R esult documented in this encounter Visit Diagnoses Diagnosis Right upper quadrant pain Abdominal pain, right upper quadrant Pain in thoracic spine Nausea Nausea alone documented in this encounter
--- OUTSIDE RECORDS SUMMARY | 2024-10-17 03:16 | XMS_ITS | Encounter Summary ---
Author Organization [facility] Facility Care Team Providers Care Reverse Logistics Analyst Name Role Phone Unavailable Primary Care Provider Unavailabl e Encounter Details Date Type Department Care Team (Late st Contact Info) Description 07/23/2016 6:30 PM CDT - 07/23/2016 11:59 PM T Hospital Encounter [facility] Grupo Reese MD [address] [facility] [address] [place] [address] Social History Tobacco Use Types Packs/Day Years Used Date Smoking Tobacco: Never Comments Unknown Sex and Gender Information Value Date Recorded Sex Assigned at Not on file Legal Sex Female 9:51 AM MATERIAL CONTROL SPECIALIST Gender Identity Not on file Sexual Orientation Not on file documented as of this encounter Plan of Treatment Not on file documented as of this encounter Visit Diagnoses Not on filedocumented in this encounter
--- OUTSIDE RECORDS SUMMARY | 2024-10-17 03:16 | XMS_ITS | Encounter Summary ---
Author Organization [facility] Facility Care Team Providers Care Color Receiver Name Role Phone Unavailable Primary Care Provider Unavailabl e Encounter Details Date Type Department Care Team (Late st Contact Info) Description 01/21/2012 - 01/21/2012 11:59 PM CDT Hospital Encounter [facility] Yaakov Stacy MD [address] [facility] [address] [place] [address] Abnormal mammogram; Lump or mass in breast; Family history of malignant neoplasm of breast; Encounter for long-term (current) use of other medications; Acquired absence of both cervix and uterus; Diaphragmatic hernia; Esophageal reflux Social History Tobacco Use Types Packs/Day Years Used Date Smoking Tobacco: Never Assessed Comments Unknown Sex and Gender Information Value Date Recorded Sex Assigned at Not on file Legal Sex Female 9:51 AM IN HOME CAREGIVER Gender Identity Not on file Sexual Orientation Not on file documented as of this encounter Plan of Treatment Not on file documented as of this encounter Visit Diagnoses Diagnosis Abnormal mammogram Abnormal mammogram, unspecified Lump or mass in breast Family history of malignant neoplasm of breast Encounter for long-term (current) use of other medications Acquired absence of both cervix and uterus Diaphragmatic hernia Diaphragmatic hernia without mention of obstruction or gangrene Esophageal reflux documented in this encounter
--- OUTSIDE RECORDS SUMMARY | 2024-10-17 03:16 | XMS_ITS | Encounter Summary ---
Author Organization [facility] Facility Care Team Providers Care Ripsawyer Name Role Phone Unavailable Primary Care Provider Unavailabl e Encounter Details Date Type Department Care Team (Late st Contact Info) Description 04/09/2012 11:22 AM CDT - 04/09/2012 4:00 PM T Hospital Encounter [facility] Grupo Reese MD [address] [facility] [address] [place] [address] Cervicalgia; Degeneration of cervical intervertebral disc; Cervical spondylosis without myelopathy Social History Tobacco Use Types Packs/Day Years Used Date Smoking Tobacco: Never Assessed Comments Unknown Sex and Gender Information Value Date Recorded Sex Assigned at Not on file Legal Sex Female 9:51 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
--- OUTSIDE RECORDS SUMMARY | 2024-10-17 03:16 | XMS_ITS | Encounter Summary ---
Author Organization [facility] Facility Care Team Providers Care Primary Education Professor Name Role Phone Unavailable Primary Care Provider Unavailabl e Encounter Details Date Type Department Care Team (Late st Contact Info) Description 08/01/2010 - 08/01/2010 11:59 PM CDT Hospital Encounter [facility] Mary Ann, Grupo Palma MD [address] [facility] [address] [place] [address] Backache Social History Tobacco Use Types Packs/Day Years Used Date Smoking Tobacco: Never Assessed Comments Unknown Sex and Gender Information Value Date Recorded Sex Assigned at Not on file Legal Sex Female 9:51 AM METAL FABRICATOR HELPER Gender Identity Not on file Sexual Orientation Not on file documented as of this encounter Plan of Treatment Not on file documented as of this encounter Visit Diagnoses Diagnosis Backache Unspecified backache documented in this encounter
--- OUTSIDE RECORDS SUMMARY | 2024-10-17 03:16 | XMS_ITS | Encounter Summary ---
Author Organization [facility] Facility Care Team Providers Care Parts Department Manager Name Role Phone Unavailable Primary Care Provider Unavailabl e Encounter Details Date Type Department Care Team (Late st Contact Info) Description 04/28/2008 12:15 PM CDT - 04/28/2008 4:00 PM T Hospital Encounter [facility] CL[facility] Rolanda Serrano, [address] [place] [id number] Pain in joint involving other specified sites Social History Tobacco Use Types Packs/Day Years Used Date Smoking Tobacco: Never Assessed Comments Unknown Sex and Gender Information Value Date Recorded Sex Assigned at Not on file Legal Sex Female 9:51 AM COMPLAINT INVESTIGATOR Gender Identity Not on file Sexual Orientation Not on file documented as of this encounter Plan of Treatment Not on file documented as of this encounter Visit Diagnoses Diagnosis Pain in joint involving other specified sites documented in this encounter
--- OUTSIDE RECORDS SUMMARY | 2024-10-17 03:16 | XMS_ITS | Encounter Summary ---
Author Organization [facility] Facility Care Team Providers Care Crm Technical Lead Name Role Phone Unavailable Primary Care Provider Unavailabl e Encounter Details Date Type Department Care Team (Late st Contact Info) Description 02/05/2013 - 02/05/2013 11:59 PM CDT Hospital Encounter [facility] Leandro, Umer Plaza MD [address] [address] Tear of medial cartilage or meniscus of knee, current Social History Tobacco Use Types Packs/Day Years Used Date Smoking Tobacco: Never Assessed Comments Unknown Sex and Gender Information Value Date Recorded Sex Assigned at Not on file 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 F FINAL REPORT ACC# ??Date Time ??Exam [id number] Feb 05, 2013 18:55:00 [id number] MRI Jnt Lower Extr wo cont R EXAMINATION: ?Right knee MRI without contrast HISTORY: ??Medial meniscus tear FINDINGS: ?? Radiographs of the right knee dated 02/01/2013 are normal. MR examination of the right knee is performed using an extremity coil. Transverse and sagittal fast spin echo and coronal short TR/TE and fast spin echo images were obtained. In the medial compartment, there is a peripheral body longitudinal tear. The articular cartilage is normal. In the lateral compartment, the articular cartilage is normal. The meniscus is intact. In the patellofemoral compartment, the articular cartilage is normal. The extensor mechanism is intact. There is mild superficial infrapatellar bursitis. Small knee effusion is present. The anterior and posterior cruciate ligaments are intact. The lateral collateral ligament complex and the medial collateral ligament are normal. There are no loose bodies. No bone marrow replacing lesions are seen. IMPRESSION: ?? 1. Longitudinal tear of the peripheral right medial meniscus body. 2. Small right knee effusion. 3. Mild superficial infrapatellar bursitis. Requested By: UMER HOLLAND M.D. Dictated By: ?? DILSHAD COE M.D. F ??on Feb 06 2013 ??9:02A This document has been electronically signed by: Wilver PETERS on Feb 06 2013 ??9:02A Procedure Note Provider, MD Kole - 02/03/2017 Wilver PETERS FINAL REPORT ACC# Date Time Exam [id number] Feb 05, 2013 18:55:00 [id number] MRI Jnt Lower Extr wo cont R EXAMINATION: Right knee MRI without contrast HISTORY: Medial meniscus tear FINDINGS: Radiographs of the right knee dated 02/01/2013 are normal. MR examination of the right knee is performed using an extremity coil. Transverse and sagittal fast spin echo and coronal short TR/TE and fast spin echo images were obtained. In the medial compartment, there is a peripheral body longitudinal tear. The articular cartilage is normal. In the lateral compartment, the articular cartilage is normal. The meniscus is intact. In the patellofemoral compartment, the articular cartilage is normal. The extensor mechanism is intact. There is mild superficial infrapatellar bursitis. Small knee effusion is present. The anterior and posterior cruciate ligaments are intact. The lateral collateral ligament complex and the medial collateral ligament are normal. There are no loose bodies. No bone marrow replacing lesions are seen. IMPRESSION: 1. Longitudinal tear of the peripheral right medial meniscus body. 2. Small right knee effusion. 3. Mild superficial infrapatellar bursitis. Requested By: UMER HOLLAND M.D. Dictated By: Wilver PETERS on Feb 06 2013 9:02A This document has been electronically signed by: Wilver PETERS on Feb 06 2013 9:02A Historical Provider MD [facility] MRI PROCEDURES Final Result documented in this encounter Visit Diagnoses Diagnosis Tear of medial cartilage or meniscus of knee, current documented in this encounter
--- OUTSIDE RECORDS SUMMARY | 2024-10-17 03:16 | XMS_ITS | Encounter Summary ---
Author Organization [facility] Facility Care Team Providers Care Financial Assistance Specialist Name Role Phone Unavailable Primary Care Provider Unavailabl e Encounter Details Date Type Department Care Team (Late st Contact Info) Description 02/01/2013 3:13 PM CDT - 02/01/2013 4:00 PM CDT Hospital Encounter [facility] Leandro, Umer Plaza MD [address] [address] Pain in joint, lower leg; Effusion of lower leg joint Social History Tobacco Use Types Packs/Day Years Used Date Smoking Tobacco: Never Assessed Comments Unknown Sex and Gender Information Value Date Recorded Sex Assigned at Not on file 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 FINAL REPORT ACC# ??Date Time ??Exam [id number] Feb 01, 2013 13:18:00 [id number] Knee 3 views R EXAMINATION: ?Right knee 3 views HISTORY: ??Right knee pain FINDINGS: ?? Three views of the right knee are performed without comparison. There is normal alignment of the right knee. The joint spaces are normal. There is no fracture. There is a small knee joint effusion. IMPRESSION: ?? Small right knee joint effusion. Requested By: UMER HOLLAND M.D. Dictated By: ?? AMI PENNINGTON M.D. ??on Feb 01 2013 ??1:32P This document has been electronically signed by: AMI PENNINGTON M.D. on Feb 01 2013 ??1:32P Procedure Note Provider, MD Kole - 02/03/2017 AMI PENNINGTON M.D. FINAL REPORT ACC# Date Time Exam [id number] Feb 01, 2013 13:18:00 [id number] Knee 3 views R EXAMINATION: Right knee 3 views HISTORY: Right knee pain FINDINGS: Three views of the right knee are performed without comparison. There is normal alignment of the right knee. The joint spaces are normal. There is no fracture. There is a small knee joint effusion. IMPRESSION: Small right knee joint effusion. Requested By: UMER HOLLAND M.D. Dictated By: AMI PENNINGTON M.D. on Feb 01 2013 1:32P This document has been electronically signed by: AMI PENNINGTON M.D. on Feb 01 2013 1:32P us Historical Provider IMG XR PROCEDURES Final R esult documented in this encounter Visit Diagnoses Diagnosis Pain in joint, lower leg Effusion of lower leg joint documented in this encounter
--- OUTSIDE RECORDS SUMMARY | 2024-10-17 03:16 | XMS_ITS | Encounter Summary ---
Author Organization [facility] Facility Care Team Providers Care Metal Bumper Name Role Phone Unavailable Primary Care Provider Unavailabl e Encounter Details Date Type Department Care Team (Late st Contact Info) Description 10/29/2016 10:01 AM RELAY TESTER - 10/29/2016 11:59 PM RELAY TESTER Hospital Encounter [facility] Jim Shelby MD [address] [facility] [address] [place] [address] Social History Tobacco Use Types Packs/Day Years Used Date Smoking Tobacco: Never Comments Unknown Sex and Gender Information Value Date Recorded Sex Assigned at Not on file Legal Sex Female 9:51 AM RELAY TESTER Gender Identity Not on file Sexual Orientation Not on file documented as of this encounter Plan of Treatment Not on file documented as of this encounter Visit Diagnoses Not on filedocumented in this encounter
--- OUTSIDE RECORDS SUMMARY | 2024-10-17 03:16 | XMS_ITS | Encounter Summary ---
Author Organization [facility] Facility Care Team Providers Care Unitizer Name Role Phone Unavailable Primary Care Provider Unavailabl e Encounter Details Date Type Department Care Team (Latest Contact Info) Description 10/31/2014 7:09 AM ESOL TEACHER ASSISTANT - 10/31/2014 9:40 AM ESOL TEACHER ASSISTANT Hospital Encounter [facility] Manuel Marte Abdominal pain of other specified site; Constipation Social History Tobacco Use Types Packs/Day Years Used Date Smoking Tobacco: Never Assessed Comments Unknown Sex and Gender Information Value Date Recorded Sex Assigned at Not on file Legal Sex Female 9:51 AM ESOL TEACHER ASSISTANT Gender Identity Not on file Sexual Orientation Not on file documented as of this encounter Plan of Treatment Not on file documented as of this encounter Procedures Procedure Name Priority Date/Time Associated Diagnosis Comments COLONOSCOPY REPORT 10/31/2014 documented in this encounter Results * COLONOSCOPY REPORT (10/31/2014) Anatomical Region Laterality Modality Other Narrative 10/31/2014 Ordered by an unspecified provider. us Historical Provider GI PROCEDURE ORDERABLES F inal Result documented in this encounter Visit Diagnoses Diagnosis Abdominal pain of other specified site Constipation Unspecified constipation documented in this encounter
--- OUTSIDE RECORDS SUMMARY | 2024-10-17 03:16 | XMS_ITS | Encounter Summary ---
Author Organization [facility] Facility Care Team Providers Care Document Management Analyst Name Role Phone Unavailable Primary Care Provider Unavailabl e Encounter Details Date Type Department Care Team (Late st Contact Info) Description 05/03/2013 - 05/03/2013 11:59 PM CDT Hospital Encounter [facility] Jim Shelby MD [address] [id number] Abdominal pain, epigastric; Abdominal tenderness, epigastric; Abdominal pain, left lower quadrant; Constipation; Nausea without vomiting Social History Tobacco Use Types Packs/Day Years Used Date Smoking Tobacco: Never Assessed Comments Unknown Sex and Gender Information Value Date Recorded Sex Assigned at Not on file 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 Gender Identity Not on file Sexual Orientation Not on file documented as of this encounter Plan of Treatment Not on file documented as of this encounter Procedures Procedure Name Priority Date/Time Associated Diagnosis Comments CT ABDOMEN PELVIS W CONTRAST Routine 05/03/2013 4:13 PM CDT BLOOD CREATININE, POINT OF CARE Routine 05/03/2013 3:52 PM CDT DISCHARGE LABORATORY CUMULATIVE REPORT Routine 05/03/2013 12:00 AM CDT documented in this encounter Results * CT Abdomen Pelvis W Contrast (05/03/2013 4:13 PM CDT) Anatomical Region Laterality Modality Body N/A Computed Tomogra phy 05/03/2013 4:13 PM CDT Narrative 05/03/2013 4:27 PM CDT LUANA SOLOMON M.D. HERMINIA DENISE, FINAL REPORT The radiology attending physician has personally reviewed this study, and has reviewed and/or edited this written report and agrees with it. ACC# ??Date Time ??Exam [id number] May 03, 2013 16:13:[id number] Abd & Pelvis with cont EXAMINATION: ?? CT ABDOMEN AND PELVIS WITH CONTRAST HISTORY: Abdominal pain, constipation TECHNIQUE: Transaxial computed tomographic images of the abdomen and pelvis were obtained after the uneventful administration of 95 mL of Optiray-350 intravenous contrast according to standard protocol. COMPARISON: None available FINDINGS: Limited evaluation of the lung bases is normal. Heart size is normal without pericardial effusion. The liver is normal without focal hepatic lesion. The spleen is normal in size. The pancreas and adrenal glands are normal. The gallbladder is surgically absent. The kidneys are normal without hydroureteronephrosis or ureterolithiasis. The stomach, small bowel, and colon are normal without evidence of obstruction. Incidentally noted is a small duodenal diverticulum. The appendix is visualized in entirety and is normal. The uterus is surgically absent. There is no free intraperitoneal fluid or air. Urinary bladder is decompressed. No mesenteric or retroperitoneal, or inguinal lymphadenopathy. Bone windows demonstrate no suspicious lytic or blastic lesions or fractures. Multiplanar reconstruction images demonstrate no loss of vertebral body height. ?? IMPRESSION: Normal CT examination of the abdomen and pelvis without CT findings to explain patient's pain. ?? Requested By: Jim Shelby ??Wilver Dictated By: ?? HERMINIA DENISE, ?? on May 03 2013 ??4:24P This document has been electronically signed by: LUANA SOLOMON M.D. on May 03 2013 ??4:27P Procedure Note Provider, MD Kole - 02/03/2017 LUANA SOLOMON M.D. HERMINIA DENISE, FINAL REPORT The radiology attending physician has personally reviewed this study, and has reviewed and/or edited this written report and agrees with it. ACC# Date Time Exam [id number] May 03, 2013 16:13:[id number] Abd & Pelvis with cont EXAMINATION: CT ABDOMEN AND PELVIS WITH CONTRAST HISTORY: Abdominal pain, constipation TECHNIQUE: Transaxial computed tomographic images of the abdomen and pelvis were obtained after the uneventful administration of 95 mL of Optiray-350 intravenous contrast according to standard protocol. COMPARISON: None available FINDINGS: Limited evaluation of the lung bases is normal. Heart size is normal without pericardial effusion. The liver is normal without focal hepatic lesion. The spleen is normal in size. The pancreas and adrenal glands are normal. The gallbladder is surgically absent. The kidneys are normal without hydroureteronephrosis or ureterolithiasis. The stomach, small bowel, and colon are normal without evidence of obstruction. Incidentally noted is a small duodenal diverticulum. The appendix is visualized in entirety and is normal. The uterus is surgically absent. There is no free intraperitoneal fluid or air. Urinary bladder is decompressed. No mesenteric or retroperitoneal, or inguinal lymphadenopathy. Bone windows demonstrate no suspicious lytic or blastic lesions or fractures. Multiplanar reconstruction images demonstrate no loss of vertebral body height. IMPRESSION: Normal CT examination of the abdomen and pelvis without CT findings to explain patient's pain. Requested By: Jim Shelby M.D. Dictated By: HERMINIA DENISE on May 03 2013 4:24P This document has been electronically signed by: LUANA SOLOMON M.D. on May 03 2013 4:27P Historical Provider IMG CT PROCEDURES Final R esult * Blood creatinine, point of care (05/03/2013 3:52 PM CDT) Creatinine, POC, bld 0.6 0.6 - 1.1 mg/dl HISTORICAL RESULTS Blood specimen (specimen) 05/03/2013 3:52 PM CDT Jim Shelby MD LAB BLOOD ORDERABLES Final Result HISTORICAL RESULTS * Discharge Laboratory Cumulative Report (05/03/2013 12:00 AM CDT) 05/03/2013 Narrative HISTORICAL RESULTS - 05/03/2013 7:19 PM CDT ?[facility] ?Department of Laboratories ? [address] [facility] [place] ? [place] [address] Patient Name: ??KALEY PINA CORONADO Med Rec Number: [id number] Fin Number: ?[id number] Date: ?1970 Sex/Age: ? Female 43 years Admit Date: ?05/03/2013 Discharge Date: 05/03/2013 Doctor: ?Jim Shelby Facility: ?[facility] Location: ?[place] Chart Printed: 05/03/2013 19:19 ?? * Abnormal ?? C Critical ?? f Footnote ?? ^ Corrected ?? L Low ?? H High ? i Interp Data ?? @ Reference Lab ?Chart Type:Cumulative ?POINT OF CARE TESTS ? Chemistry ?Test: Creat iPOC ? Reference: [0.6-1.1] ? Units: mg/dL 05/03/2013 ?? 15:52:00 ?? 0.6 us Historical Provider MD LAB BLOOD ORDERABLES Jonna hassan Result HISTORICAL RESULTS documented in this encounter Visit Diagnoses Diagnosis Abdominal pain, epigastric Abdominal tenderness, epigastric Abdominal pain, left lower quadrant Constipation Unspecified constipation Nausea without vomiting documented in this encounter
--- OUTSIDE RECORDS SUMMARY | 2024-10-17 03:16 | XMS_ITS | Encounter Summary ---
Author Organization [facility] Facility Care Team Providers Care Janitorial Account Manager Name Role Phone Unavailable Primary Care Provider Unavailabl e Encounter Details Date Type Department Care Team (Latest Contact Info) Description 05/05/2015 - 05/05/2015 11:59 PM CDT Hospital Encounter [facility] Yaakov Stacy MD [address] [facility] [address] [place] [address] Other screening mammogram; Other abnormal findings on radiological examination of breast Social History Tobacco Use Types Packs/Day Years Used Date Smoking Tobacco: Never Assessed Comments Unknown Sex and Gender Information Value Date Recorded Sex Assigned at Not on file 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 FINAL REPORT ACC# ??Date Time ??Exam [id number] May 05, 2015 08:11:00 [facility] [id number] Bilateral screen w leda ?? Technologist(s): Carolina Pretty; ; EXAMINATION: ??Mammogram Technique: Bilateral Full-Field Digital Screening Mammogram and Digital Breast Tomosynthesis were performed. ??Views obtained: ??bilateral craniocaudal and bilateral mediolateral oblique. ??Computer Aided Detection of the 2D images was performed with EidoSearch.3 version 9.3. Mammogram Findings: The present examination has been compared to prior imaging studies performed on 01/09/2012 and 01/04/2012, and at [facility] on 03/25/2014. There are scattered fibroglandular densities. There are calcifications in the left breast. Finding remains unchanged from the prior study. There is no suspicious abnormality in the right breast. IMPRESSION: ??Calcifications in the left breast are benign. Annual screening mammography is recommended. OVERALL FINAL ASSESSMENT: BI-RADS CATEGORY 2: ??Benign. Requested By: Dictated By: ?? JOVANNI VALENCIA M.D. ??on May 08 2015 10:00A This document has been electronically signed by: JOVANNI VALENCIA M.D. on May 08 2015 10:00A [id number] Procedure Note Provider, MD Kole - 02/03/2017 JOVANNI VALENCIA M.D. FINAL REPORT ACC# Date Time Exam [id number] May 05, 2015 08:11:00 [facility] [id number] Bilateral screen w leda Technologist(s): Carolina Pretty; ; EXAMINATION: Mammogram Technique: Bilateral Full-Field Digital Screening Mammogram and Digital Breast Tomosynthesis were performed. Views obtained: bilateral craniocaudaland bilateral mediolateral oblique. Computer Aided Detection of the 2Dimages was performed with Learncafe 1.3 version 9.3. Mammogram Findings: The present examination has been compared to prior imaging studies performed on 01/09/2012 and 01/04/2012, and at [facility] on 03/25/2014. There are scattered fibroglandular densities. There are calcifications in the left breast. Finding remains unchanged from the prior study. There is no suspicious abnormality in the right breast. IMPRESSION: Calcifications in the left breast are benign. Annual screening mammography is recommended. OVERALL FINAL ASSESSMENT: BI-RADS CATEGORY 2: Benign. Requested By: Dictated By: JOVANNI VALENCIA M.D. on May 08 2015 10:00A This document has been electronically signed by: JOVANNI VALENCIA M.D. on May 08 2015 10:00A [id number] Historical Provider MD [facility] MAMMO PROCEDURES Jonna l Result documented in this encounter Visit Diagnoses Diagnosis Other screening mammogram Other abnormal findings on radiological examination of breast documented in this encounter
--- OUTSIDE RECORDS SUMMARY | 2024-10-17 03:16 | XMS_ITS | Encounter Summary ---
Author Organization [facility] Facility Care Team Providers Care Ice Cream Server Name Role Phone Unavailable Primary Care Provider Unavailabl e Encounter Details Date Type Department Care Team (Late st Contact Info) Description 07/27/2016 7:15 AM CDT - 07/27/2016 11:59 PM CDT Hospital Encounter [facility] Grupo Reese MD [address] [facility] [address] [place] [address] Other specified diseases of spinal cord (CMS/HCC); Other intervertebral disc disorders, thoracic region Social History Tobacco Use Types Packs/Day Years Used Date Smoking Tobacco: Never Comments Unknown Sex and Gender Information Value Date Recorded Sex Assigned at Not on file 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 BALJEET GARCES M.D. FINAL REPORT The radiology attending physician has personally reviewed this study, and has reviewed and/or edited this written report and agrees with it. ACC# ??Date Time ??Exam [id number] Jul 27, 2016 08:10:00 [id number] MRI Thoracic Spine wo cont EXAMINATION: ?? Magnetic resonance imaging (MRI) of the thoracic spine without contrast HISTORY: Back pain. TECHNIQUE: Multiplanar multi-weighted MRI of the thoracic spine was performed without intravenous contrast using the standard thoracic spine protocol. COMPARISON: 04/03/2015 FINDINGS: The alignment of the thoracic spine is normal. There is a hemangioma in the C7 vertebral body. The spinal cord demonstrates normal signal intensity on all sequences. Limited views of the chest and abdomen show no soft tissue abnormality. There is mild multilevel disc desiccation without bulge causing no significant foraminal or canal stenosis. 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 There is unchanged scalloping of the posterior margin of the cord noted at T6. IMPRESSION: ?? 1. Unchanged, subtle contour abnormality of the thoracic cord at the posterior margin at the level of T6, this may represent a minimally anterior herniated spinal cord or a small arachnoid cyst. 2. Unchanged degenerative changes of the thoracic spine. Requested By: Dictated By: ?? BALJEET GARCES M.D. ??on Jul 27 2016 ??2:03P This document has been electronically signed by: LILA YUAN M.D. on Jul 28 2016 ??9:41A [id number] Procedure Note Provider, MD Kole - 02/19/2017 LILA YUAN M.D. BALJEET GARCES M.D. FINAL REPORT The radiology attending physician has personally reviewed this study, and has reviewed and/or edited this written report and agrees with it. ACC# Date Time Exam [id number] Jul 27, 2016 08:10:00 [id number] MRI Thoracic Spine wo cont EXAMINATION: Magnetic resonance imaging (MRI) of the thoracic spine without contrast HISTORY: Back pain. TECHNIQUE: Multiplanar multi-weighted MRI of the thoracic spine was performed without intravenous contrast using the standard thoracic spine protocol. COMPARISON: 04/03/2015 FINDINGS: The alignment of the thoracic spine is normal. There is a hemangioma in the C7 vertebral body. The spinal cord demonstrates normal signal intensity on all sequences. Limited views of the chest and abdomen show no soft tissue abnormality. There is mild multilevel disc desiccation without bulge causing no significant foraminal or canal stenosis. 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 There is unchanged scalloping of the posterior margin of the cord noted at T6. IMPRESSION: 1. Unchanged, subtle contour abnormality of the thoracic cord at the posterior margin at the level of T6, this may represent a minimally anterior herniated spinal cord or a small arachnoid cyst. 2. Unchanged degenerative changes of the thoracic spine. Requested By: Dictated By: BALJEET GARCES M.D. on Jul 27 2016 2:03P This document has been electronically signed by: LILA YUAN M.D. 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
--- OUTSIDE RECORDS SUMMARY | 2024-10-17 03:16 | XMS_ITS | Encounter Summary ---
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 Hospital Encounter [facility] Jim Shelby MD [address] [facility] [address] [place] [address] Abdominal pain, epigastric; Nonspecific abnormal findings on radiological and other examination of abdominal area, including retroperitoneum; Other postprocedural states Social History Tobacco Use Types Packs/Day Years Used Date Smoking Tobacco: Never Assessed Comments Unknown Sex and Gender Information Value Date Recorded Sex Assigned at Not on file 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
--- OUTSIDE RECORDS SUMMARY | 2024-10-17 03:16 | XMS_ITS | Encounter Summary ---
Author Organization [facility] Facility Care Team Providers Care Product Development Scientist Name Role Phone Unavailable Primary Care Provider Unavailabl e Encounter Details Date Type Department Care Team (Late st Contact Info) Description 07/12/2015 - 07/12/2015 11:59 PM CDT Hospital Encounter [facility] Mari aDolores Pimentel MD [address] [address] Routine general medical examination at a health care facility; Pain in soft tissues of limb; Pain in joint, multiple sites Social History Tobacco Use Types Packs/Day Years Used Date Smoking Tobacco: Never Assessed Comments Unknown Sex and Gender Information Value Date Recorded Sex Assigned at Not on file 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 Gender Identity Not on file Sexual Orientation Not on file documented as of this encounter Plan of Treatment Not on file documented as of this encounter Procedures Procedure Name Priority Date/Time Associated Diagnosis Comments SERUM IGM, QUANTITATIVE Routine 07/12/2015 5:13 AM CDT SERUM IGG, QUANTITATIVE Routine 07/12/2015 5:13 AM CDT SERUM IGA, QUANTITATIVE Routine 07/12/2015 5:13 AM CDT SERUM CYCLIC CITRULLINATED PEPTIDE IGG 3RD GENERATION Routine 07/12/2015 5:13 AM CDT SERUM COMPLEMENT C4, QUANTITATIVE Routine 07/12/2015 5:13 AM CDT SERUM COMPLEMENT C3, QUANTITATIVE Routine 07/12/2015 5:13 AM CDT SERUM ANTI-EXTRACTABLE NUCLEAR AG (SEB) AB Routine 07/12/2015 5:13 AM CDT SERUM ANTIDOUBLE-STRANDED DNA AB Routine 07/12/2015 5:13 AM CDT BLOOD ERYTHROCYTE SEDIMENTATION RATE (ESR) Routine 07/12/2015 5:13 AM CDT DISCHARGE LABORATORY CUMULATIVE REPORT 07/12/2015 documented in this encounter Results * Serum complement C4, quantitative (07/12/2015 5:13 AM CDT) Complement C4 21.0 12.0 - 54.0 mg/dl HISTORICAL RESULTS Serum 07/12/2015 5:13 AM CDT Narrative HISTORICAL RESULTS - 07/13/2015 7:11 AM CDT Client / Account bill? No Client Account Number and Description: Maria Dolores Pimentel MD LAB BLOOD ORDERABLES Final Result Performing Organization Address [facility] Co de Phone Number HISTORICAL RESULTS * Serum complement C3, quantitative (07/12/2015 5:13 AM CDT) Complement C3 90.6 83.0 - 185.0 mg/dl HISTORICAL RESULTS Serum 07/12/2015 5:13 AM CDT Narrative HISTORICAL RESULTS - 07/13/2015 7:11 AM CDT Client / Account bill? No Client Account Number and Description: Maria Dolores Pimentel MD LAB BLOOD ORDERABLES Final Result Performing Organization Address [facility] Co de Phone Number HISTORICAL RESULTS * Serum antidouble-stranded DNA ab (07/12/2015 5:13 AM CDT) Anti-double stranded DNA, quant <12.3 <=29.9 IUnits/ml HISTORICAL RESULTS Comment: Interpretive Data ??<30 IUnits/mL = Negative 30-75 IUnits/mL = [place] ??>75 IUnits/mL = Positive Current interpretive data was last revised on 2009. Serum 07/12/2015 5:13 AM CDT Narrative HISTORICAL RESULTS - 07/13/2015 9:45 AM CDT Client / Account bill? No Client Account Number and Description: Maria Dolores Pimentel MD LAB BLOOD ORDERABLES Final Result Performing Organization Address [facility] de Phone Number HISTORICAL RESULTS * Serum IgM, quantitative (07/12/2015 5:13 AM CDT) IgM 34.9 30.0 - 210.0 mg/dl HISTORICAL RESULTS Serum 07/12/2015 5:13 AM CDT Narrative HISTORICAL RESULTS - 07/13/2015 7:11 AM CDT Client / Account bill? No Client Account Number and Description: Maria Dolores Pimentel MD LAB BLOOD ORDERABLES Final Result Performing Organization Address [facility] de Phone Number HISTORICAL RESULTS * Serum IgG, quantitative (07/12/2015 5:13 AM CDT) IgG 873.0 700.0 - 1450.0 mg/dl HISTORICAL RESULTS Serum 07/12/2015 5:13 AM CDT Narrative HISTORICAL RESULTS - 07/13/2015 7:11 AM CDT Client / Account bill? No Client Account Number and Description: Maria Dolores Pimentel MD LAB BLOOD ORDERABLES Final Result Performing Organization Address [facility] Co de Phone Number HISTORICAL RESULTS * (ABNORMAL) Serum IgA, quantitative (07/12/2015 5:13 AM CDT) IgA 66.4(L) 70.0 - 370.0 mg/dl HISTORICAL RESULTS Serum 07/12/2015 5:13 AM CDT Narrative HISTORICAL RESULTS - 07/13/2015 7:11 AM CDT Client / Account bill? No Client Account Number and Description: Maria Dolores Pimentel MD LAB BLOOD ORDERABLES Final Result Performing Organization Address [facility] de Phone Number HISTORICAL RESULTS * Serum anti-extractable nuclear ag (SEB) ab (07/12/2015 5:13 AM CDT) Anti-SEB Negative Negative HISTORICAL RESULTS Serum 07/12/2015 5:13 AM CDT Narrative HISTORICAL RESULTS - 07/13/2015 9:06 AM CDT Client / Account bill? No Client Account Number and Description: Interpretive Data Positive Screens will be reflexed to specific testing for the following antigens: BUSINESS ACCOUNT MANAGER/SM, SM, SSA, and SSB. A positive screen with negative specific antibodies indicates absence of Extractable Nuclear Antibody. Current interpretive data was last revised on 09. Maria Dolores Pimentel MD LAB BLOOD ORDERABLES Final Result Performing Organization Address [facility] de Phone Number HISTORICAL RESULTS * Blood erythrocyte sedimentation rate (ESR) (07/12/2015 5:13 AM CDT) Erythrocyte sedimentation rate 3.0 0.0 - 25.0 mm/hr HISTORICAL RESULTS Blood specimen (specimen) 07/12/2015 5:13 AM CDT Narrative HISTORICAL RESULTS - 07/12/2015 10:24 AM CDT Client / Account bill? No Client Account Number and Description: Maria Dolores Pimentel MD LAB BLOOD ORDERABLES Final Result Performing Organization Address [facility] de Phone Number HISTORICAL RESULTS * Serum cyclic citrullinated peptide IgG 3rd generation (07/12/2015 5:13 AM CDT) CCP3 IgG <15.6 0.0 - 19.0 units HISTORICAL RESULTS Comment: Interpretive Data The following results were obtained with the [employer]ite CCP3 IgG DANIEL. ??Anti-CCP values obtained with the different manufacturers' assay methods may not be used interchangeably. The magnitude of the reported IgG levels cannot be correlated to an endpoint titer. Reference ?Result Interpretation 0-19 Units ? Negative 20-39 Units ? Weak Positive 40-59 Units ? Moderate Positive 60 or above Units ?? Strong Positive Current interpretive data was last revised on 2006. Serum 07/12/2015 5:13 AM CDT Narrative HISTORICAL RESULTS - 07/13/2015 9:45 AM CDT Client / Account bill? No Client Account Number and Description: us Maria Dolores Pimentel MD LAB BLOOD ORDERABLES Final Result HISTORICAL RESULTS * DISCHARGE LABORATORY CUMULATIVE REPORT (07/12/2015) Narrative 07/12/2015 Ordered by an unspecified provider. us Historical Provider LAB BLOOD ORDERABLES Jonna l Result documented in this encounter Visit Diagnoses Diagnosis Routine general medical examination at a health care facility Pain in soft tissues of limb Pain in joint, multiple sites documented in this encounter
--- OUTSIDE RECORDS SUMMARY | 2024-10-17 03:16 | XMS_ITS | Encounter Summary ---
Author Organization [facility] Healthcare Address [address] [place] [address] Care Team Providers Care Crtt Name Role Phone Jesse Amado MD Primary Care Provider [phone] Encounter Details Date Type Department Care Team (Latest Contact Info) Description 03/18/2017 10:42 PM CDT - 2017 4:00 PM CDT Hospital Encounter [address] [phone] Reina Ruby MD [address] [place] [id number] Discharge Disposition: Discharge to home or self care Social History Tobacco Use Types Packs/Day Years Used Date Smoking Tobacco: Never Comments Unknown Sex and Gender Information Value Date Recorded Sex Assigned at Not on file Legal Sex Female 9:51 AM [employer] ENGINE[employer] Gender Identity Not on file Sexual Orientation Not on file documented as of this encounter Last Filed Vital Signs Vital Sign Reading Time Taken Comments Blood Pressure 106/61 2017 5:24 AM CDT Pulse 63 2017 5:24 AM CDT Temperature - - Respiratory Rate - - Oxygen Saturation - - Inhaled Oxygen Concentration - - Weight 66.6 kg (146 lb 13.2 oz) 03/20/2017 3:37 PM CDT Height 162.6 cm (5' 4.02 ) 03/20/2017 3:37 PM CD T Body Mass Index 25.19 03/20/2017 3:37 PM CDT documented in this encounter Discharge Summaries * Miscellaneous, Not In File - 2017 5:00 AM CDT [facility] Patient: PINA ROCHE Account: [id number] Room No: 627-B : 1970 Admit Date: 03/18/2017 Attending: REINA RUBY MD Disch. Date: 2017 Dictating: JOAQUIM TERAN M.D. Patient Type: IP DISCHARGE SUMMARY REASON FOR HOSPITALIZATION Abdominal pain. DISCHARGE DIAGNOSES 1. Large and atypical duodenal ulcers with significant edema. 2. Mild malnutrition. 3. Fibromyalgia. 4. Diarrhea. 5. Generalized abdominal pain, acute on chronic. CONSULTATIONS Dr. Shelby with gastroenterology. LOPEZ STUDIES Small-bowel, duodenal bulb shows erosive duodenitis, small intestine, 2nd duodenum shows mild active duodenitis. HOSPITAL COURSE Patient was admitted on 03/18 and GI was consulted given prior history. C. Diff was ordered and old colonoscopy was reviewed. EGD was recommended and was significant as this showed geographic superficial duodenal ulcers, but a normal esophagus and stomach. First impression was for a viral syndrome though Crohn disease, Behcet's disease, celiac and peptic ulcer disease are in the differential. The patient's diet was advanced and she is doing well and motivated to go home. GI will follow up with biopsy results which just have come back as negative or as described above. In other words, no evidence of malignancy or Crohn's that I can tell. CONDITION AT DISCHARGE Fair. ACTIVITY As tolerated. DIET Soft, low fat. DISPOSITION Home. CODE STATUS Full code. DISCHARGE MEDICATIONS 1. Protonix 40 mg p.o. b.i.d. 2. Maxalt 10 mg daily p.r.n. migraine. 3. Zyrtec 10 mg. PENDING STUDIES None. FOLLOWUP INSTRUCTIONS Dr. Shelby in 4 weeks. PRIMARY CARE PROVIDER Jesse Amado MD Time spent in discharge process was over 33 minutes coordinating discharge. Electronically Authenticated and Edited by: Joaquim Teran MD On 03/22/2017 02:01 PM CDT JOAQUIM TERAN M.D. MR/kamlesh TD: 03/22/2017 08:54 CC: JESSE AMADO MD documented in this encounter Discharge Disposition Disposition Code Departure Means Destination Discharge to home or self care documented in this encounter Consult Notes * Miscellaneous, Not In File - 03/19/2017 5:00 AM CDT [facility] Patient: PINA ROCHE Account: [id number] Room No: 627-B : 1970 Consult Date: 03/19/2017 Attending: REINA RUBY MD Admit Date: 03/18/2017 Consult.: FRANK SHELBY MD Disch. Date: Patient Type: IP GASTROENTEROLOGY CONSULTATION CONSULTING PHYSICIAN Frank Shelby MD REFERRING PROVIDER Tyesha Howard REASON FOR CONSULTATION Abdominal pain. HISTORY OF PRESENT ILLNESS Mrs. Roche is a 46-year-old female with a history of gastric ulcer, sphincter of Oddi dysfunction, and migraines who has been admitted with indigestion, belching, and midepigastric pain. She states she began developing symptoms March 02. Her symptoms have been worse postprandially. She reports developing a mid epigastric knot, midepigastric pain with radiation to her back, belching and hiccups postprandially. Her symptoms are even exacerbated with liquid intake. She has had constant nausea but no vomiting. She reports seeing her primary care provider on March 02 and thought that she had a possible hiatal hernia or ulcer. She was started on Pepcid 40 mg b.i.d. She has tried Tums, Gas-X, and Flexeril with no relief of her symptoms. Yesterday she began having massive diarrhea approximately 15 times that was described as bright yellow back/green. She denies any melena or bright red blood per rectum. She states she has lost approximately 6-7 pounds unintentionally since March 02. She does not feel these symptoms are similar to her ERCP in 2005. She denies any recent sick contacts. She denies any NSAID use. She underwent previous MRI of the abdomen November of 2016, CT scan on October of 2016, GARY October of 2015, colonoscopy October of 2014, which will all be listed my pertinent imaging below. On admission her CBC, LFTs and lipase are normal. PAST MEDICAL HISTORY 1. Significant for gastric ulcer. 2. Combined papillary stenosis. 3. Migraines. 4. Seasonal allergies. PAST SURGICAL HISTORY 1. Cholecystectomy. 2. Hysterectomy. 3. Bladder suspension. 4. ERCP. SOCIAL HISTORY She does not smoke. She does not drink. She is . 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 FAMILY HISTORY Mother with a history of irritable bowel syndrome, liver cyst, recent diagnosis of a pancreatic tail mass which she has not undergone further workup due to insurance. HOME MEDICATIONS 1. Pepcid. 2. Maxalt. 3. Align. ALLERGIES 1. CIPRO. 2. COMPAZINE. 3. IV DYE. 4. MORPHINE. REVIEW OF SYSTEMS Constitutional: She states she has lost approximately 6-7 pounds since December 31. She has had chills with low-grade fever. HEENT: No reports of scleral icterus, blurred or lost vision. Skin: No reports of rash or pruritus. Cardiovascular: No complaints of chest pain or palpitations. Respiratory: No complaints of shortness of breath or cough. GI: Please see history of present illness. : She describes recent dysuria and frequency. Neuro: No reports of headache, dizziness or syncopal episodes. Musculoskeletal: No reports of muscle, back or joint pain. Hematologic: No reports of anemia, bleeding or easy bruising. Psychiatric: No reports of anxiety or depression. Endocrine: No reports of diabetes or thyroid disease. PHYSICAL EXAM General: This is a 46-year-old female who appears in no acute distress. Vital Signs: Currently show a blood pressure of 104/62, heart rate 62, respiratory rate 18, temperature 97.9, oxygen is 98%. Heart: Regular rate and rhythm with no murmur or gallop heard. Lungs: Clear to auscultation with no wheeze or crackles heard. Abdomen: Soft, nondistended. She is tender along the whole upper abdomen. Positive bowel sounds. Skin: Warm, dry, free of any rashes or bruises. There is no jaundice noted. Extremities: There is no pedal edema noted. LABORATORY DATA CBC is normal. CMP is normal with the exception of plasma protein measured at 5.6. Urinalysis is negative for nitrites and negative leukocyte esterase. Ketones are measured at greater than 80. PERTINENT IMAGING 1. MRI/MRCP November 23, 2016 of the abdomen revealed a focal lesion in the right lobe of the liver described on the recent CT scan representing a tiny benign cyst. No other focal liver pathology was identified. The extrahepatic biliary ductal system was of normal caliber. No definite filling defects were present. There was a possible trace amount of intrahepatic duct dilatation although this may be normal variation, no intraabdominal pathology identified. 2. CT scan of the abdomen October 30, 2016 revealed mild fatty liver present along with a 2 mm hypodensity in the lateral liver which was too small to characterize but not clearly seen on prior exam of uncertain significance, a moderate amount of colonic stool was present. 3. ERCP January 21, 2006 revealing benign papillary stenosis. 4. EGD October 30, [address] Marte revealed a 2 cm hiatal hernia, erythematous mucosa in the gastric body consistent with gastropathy, normal duodenum. 5. Colonoscopy October 31, 2014 was normal. IMPRESSION/PLAN 1. Abdominal pain, nausea, weight loss, history of gastric ulcer. Differential diagnosis of her symptoms includes ulcer, gastritis, Briscoe's, hepatobiliary in nature such as microlithiasis, sludge, recurrent stenosis or other. At this time we will plan to proceed with EGD today for further evaluation. If her EGD is negative, then we will consider medication trial with TCA or Levsin. At this time she is currently on Pepcid b.i.d. which we recommend continuing until evaluation with EGD. If she has persistent symptoms despite a negative EGD and no response to conservative management with medication trials we may need to consider proceeding with ERCP in the future to rule out hepatobiliary origin of her symptoms. 2. Diarrhea. We will check stool cultures and stool for Clostridium difficile. She did have a colonoscopy in October of 2014 that was normal. This case has been discussed with Dr. Shelby who agrees with the above aforementioned plan and further recommendations will be made following her procedure today. Electronically Authenticated by: Rebekah Diaz PA-C On 03/19/2017 03:18 PM CDT Electronically Authenticated by: Julian Shelby MD On 03/20/2017 01:31 PM CDT FRANK SHELBY MD Dictated by: JERMAINE BANSAL/kamlesh TD: 03/19/2017 12:01 documented in this encounter Miscellaneous Notes * Admission Note - Miscellaneous, Not In File - 03/18/2017 5:00 AM CDT [facility] Patient: PINA ROCHE Room No: 627-B Account: [id number] Service Date: : 1970 Admit Date: 03/18/2017 Attending: REINA RUBY MD Disch. Date: 2017 Dictating: SHANNAN ROQUE MD Patient Type: IP ADMISSION NOTE REASON FOR ADMISSION Weight loss of 10 pounds over 4 days, nausea, and inability to eat and drink for the past 4 days. HISTORY OF PRESENT ILLNESS This is a 46-year-old white female who presented to the hospital for evaluation of the above. The patient states that she has been having GI issues since she was a teenager, but according to her she says she had her gallbladder taken out in 2003 after an abnormal HIDA scan, and then in 2005 she continued to have nausea and GI issues. She ended up having an ERCP and stents placed by Dr. Shelby. She states she was fine for about 10 years but in 2017, beginning of this year, she again started having some epigastric discomfort with nausea, some episodes of vomiting. She had a CT of the abdomen, which showed some liver growth, which was followed by an MRI, which showed benign cysts and showed some ductal dilatation. She was referred to Dr. Shelby for another ERCP. She states for the last 2 weeks, she has been having trouble, but for the last 4 days she has been unable to eat or drink, and then yesterday she started with severe explosive watery diarrhea. She was prescribed Pepcid by her primary care doctor. She was having some hiccuping after eating, and felt she had a bulge in her stomach. She had all these nonspecific vague complaints. She denies any fever, chills, headache. The 14 systems were reviewed. ALLERGIES CIPRO 2:29, COMPAZINE, IV DYE, AND MORPHINE. PAST HISTORY Significant for all those GI trouble, fibromyalgia, and she is being worked up for mixed connective tissue disorder. SOCIAL HISTORY She does not smoke, drink, or do any drugs. She lives with her and a 23-year-old daughter. She has another daughter who is 25 who is independent. 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 She also has 2 small dogs that sleep with her as well. FAMILY HISTORY Significant for mother having psoriatic arthritis, and she is being worked up for lower extremity muscle loss and severe weakness. She has a cousin who has multiple sclerosis, another cousin was recently diagnosed with lupus and Sjogren's. Grandmother of metastatic breast cancer. She has an aunt who has breast cancer and recently had a stroke. She has a brother who is 45 years old and he is a drug addict. She is taking custody for his daughter. In 2013, she had fungus balls in her sinuses, and was treated for MRSA at that time. So she was on antibiotics 2 years ago. SURGICAL HISTORY Significant for hysterectomy, cholecystectomy. PROCEDURES She is up to date with her colonoscopy, mammogram and Pap smears. HOME MEDICATIONS 1. Pepcid 40 two times per day. 2. Maxalt 10 mg daily. 3. Zyrtec 10 daily at bedtime. 4. Align daily. REVIEW OF SYSTEMS The patient normally suffers from constipation, but yesterday she started with explosive watery diarrhea. She does have headaches as well. PHYSICAL EXAM This is a 46-year-old lady who will be turning 47 in 2 days, is lying in bed in no acute distress. She is alert, awake, oriented x3. Head and Neck: Pupils are reactive to light and accommodation. Extraocular muscles are intact. No thyromegaly, no JVD. Cardiovascular: S1, S2. No murmurs. Lungs: Clear to auscultation. Abdomen: Soft with tenderness in the epigastric and periumbilical area. Positive bowel sounds. Central Nervous System: No focal neurological deficits. LABORATORY DATA Shows CBC with a white count of 3.8, hemoglobin 13.5, platelets 158. CMP: 6:21 is 139, potassium 4.2. LFTs are normal. Urinalysis shows more than 80 ketones. Lipase is 19. She had an abdominal MRI in November of 2016, which showed a focal lesion in the right liver described on the recent CT, represents a tiny benign cyst, no other focal liver pathology is identified. Extra hepatobiliary ductal system is of normal caliber, no definite filling defects are present. I cannot exclude trace amount of intrahepatic duct dilatation, although, this may be normal variation. ASSESSMENT AND PLAN 1. Possible acute on chronic abdominal pain with explosive watery diarrhea. GI service has been consulted, and the plan is for ERCP later today with possible stent placement or exchange. She will be offered supportive care with pain medicines and IV fluids. 2. Weight loss, most likely due to abdominal pain. 3. Diarrhea. Patient has been unable to give us a stool sample, as apparently she is not having diarrhea anymore, but if she is able to give us, Clostridium difficile will be collected. 4. Fibromyalgia. Continue home meds. 5. Prior DVT and GI prophylaxis. Further management will be based on further recommendations based on her ERCP results and GI recommendations. Electronically Authenticated and Edited by: Shannan Roque MD On 03/24/2017 05:29 PM CDT MD CHARLENE MARINELLI/[facility] TD: 03/19/2017 12:27 CC: MD JESSE GORDILLO MD documented in this encounter Plan of Treatment Not on file documented as of this encounter Procedures Procedure Name Priority Date/Time Associated Diagnosis Comments CT ABDOMEN PELVIS W CONTRAST Routine 03/20/2017 9:40 PM CDT SURGICAL PATHOLOGY Routine 03/20/2017 4: 43 AM CDT EGFR Routine 03/19/2017 5:30 AM CDT DIFFERENTIAL AUTO Routine 03/19/2017 5:3 0 AM CDT CBC WITH AUTO DIFFERENTIAL Routine 03/19/2017 5:30 AM CDT COMPREHENSIVE METABOLIC PANEL Routine 03/19/2017 5:30 AM CDT URINALYSIS AND REFLEX TO MICROSCOPIC AND CULTURE STAT 03/18/2017 10:30 PM CDT EGFR STAT 03/18/2017 5:52 PM CDT DIFFERENTIAL AUTO STAT 03/18/2017 5:5 2 PM CDT CBC WITH AUTO DIFFERENTIAL STAT 03/18/2017 5:52 PM CDT LIPASE STAT 03/18/2017 5:52 PM CDT COMPREHENSIVE METABOLIC PANEL STAT 03/18/2017 5:52 PM CDT documented in this encounter Results * CT Abdomen Pelvis W Contrast (03/20/2017 9:40 PM CDT) Anatomical Region Laterality Modality Body N/A Computed Tomogra phy 03/20/2017 9:40 PM CDT Narrative 03/20/2017 9:40 PM CDT Exam: CT abdomen and pelvis following uneventful administration 95 mL Optiray 350 intravenously with coronal and sagittal reformats. HISTORY: 46-year-old female with significant duodenal edema, epigastric pain. ??History of cholecystectomy biliary sphincterotomy. An 10/30/2016. COMPARISON: 11/23/2016 FINDINGS: The visible lung bases are clear. ??The liver is low density consistent with fatty infiltration. ??There is prior cholecystectomy. There is mild intrahepatic biliary dilatation unchanged from the previous and likely within normal limits. The stomach is underdistended and collapsed. ??There is abnormal thickening identified within the pickard of the duodenum however this appearance was also seen on the prior CT from 10/30/2016 contrast identified within the small bowel the remainder virtual appear to be normal caliber. ??Contrast identified within the colon which also appears normal caliber with no evidence of bowel obstruction. ??There is no free fluid or free air in the abdomen or pelvis. ??No significant pathologically enlarged lymphadenopathy is appreciated at this time. The urinary bladder appears unremarkable. ??The uterus is not visualized and may be surgically absent. ??Please correlate with clinical history. ?? No acute osseous abnormality identified. IMPRESSION: Thickening of the pickard of the duodenum is noted of uncertain etiology. ??An infectious/inflammatory process, peptic ulcer disease or an infiltrative mass cannot be excluded. ??Further evaluation with an upper GI study and/or endoscopy can be obtained. ??No other acute abnormality identified at this time. Cholecystectomy. Electronically signed by: DAMON ANDRADE MD Radiologist: DAMON ANDRADE ? Attending: ??REINA RUBY Requesting: FRANK SHELBY ??M.D. Requesting Fax: ?? Requesting ID: [id number] Attending Fax: ?? Attending ID: ?? [id number] Completed Time: ?? 03/20/2017 4:40 PM Dictated Time: ?N/A Transcribed Time: 03/20/2017 5:14 PM Signed by: ?DAMON ANDRADE ?on 03/20/2017 5:14 PM Report To 1 ID: Report To 1 Name: , Report To 1 FAX: Report To 2 ID: Report To 2 Name: , Report To 2 FAX: Report To 3 ID: Report To 3 Name: , Report To 3 FAX: NextGen Order #: Procedure Note Miscellaneous, Not In File / Provider, MD Kole - 03/20/2017 Exam: CT abdomen and pelvis following uneventful administration 95 mL Optiray 350 intravenously with coronal and sagittal reformats. HISTORY: 46-year-old female with significant duodenal edema, epigastric pain. History of cholecystectomy biliary sphincterotomy. An 10/30/2016. COMPARISON: 11/23/2016 FINDINGS: The visible lung bases are clear. The liver is low density consistent with fatty infiltration. There is prior cholecystectomy. There is mild intrahepatic biliary dilatation unchanged from the previous and likely within normal limits. The stomach is underdistended and collapsed. There is abnormal thickening identified within the pickard of the duodenum however this appearance was also seen on the prior CT from 10/30/2016 contrast identified within the small bowel the remainder virtual appear to be normal caliber. Contrast identified within the colon which also appears normal caliber with no evidence of bowel obstruction. There is no free fluid or free air in the abdomen or pelvis. No significant pathologically enlarged lymphadenopathy is appreciated at this time. The urinary bladder appears unremarkable. The uterus is not visualized and may be surgically absent. Please correlate with clinical history. No acute osseous abnormality identified. IMPRESSION: Thickening of the pickard of the duodenum is noted of uncertain etiology. An infectious/inflammatory process, peptic ulcer disease or an infiltrative mass cannot be excluded. Further evaluation with an upper GI study and/or endoscopy can be obtained. No other acute abnormality identified at this time. Cholecystectomy. Electronically signed by: DAMON ANDRADE MD Radiologist: DAMON ANDRADE Attending: REINA RUBY Requesting: FRANK SHELBY M.D. Requesting Requesting ID: [id number] Attending Attending ID: [id number] Completed Time: 03/20/2017 4:40 PM Dictated Time: N/A Transcribed Time: 03/20/2017 5:14 PM Signed by: DAMON ANDRADE on 03/20/2017 5:14 PM Report To 1 ID: Report To 1 Name: , Report To 1 FAX: Report To 2 ID: Report To 2 Name: , Report To 2 FAX: Report To 3 ID: Report To 3 Name: , Report To 3 FAX: NextGen Order #: us Not In File Miscellaneous IMG CT PROCEDURES Jonna l Result * Surgical pathology (03/20/2017 4:43 AM CDT) 03/20/2017 4:43 AM CDT 03/20/2017 12:12 PM CDT [facility] - 2017 3:02 PM CDT [address] [place] ??[address] Tele: ?? Nahid More MD - Office Technology Professor ?? Reece Palacio - Machine Tool Designer SURGICAL PATHOLOGY REPORT ?Patient Name: PINA ROCHE Address: [address] [place] [address] Service: Medical ??[place], [place] ?? Location: [facility] ? Taken: 03/20/2017 Gender: F Received 03/20/2017 : 1970 (Age: 46) [facility] #: [id number] Reported: 2017 ?? Patient Type: Inpatient Physician(s): Wilver Gordillo M.D. ?? DIAGNOSIS: Small intestine, duodenal bulb, biopsy: ? - Erosive duodenitis Small intestine, second duodenum, biopsy: ? - Mild active duodenitis lkb/03/21/2017 09:36 Examining Pathologist: Makayla Coffey M.D. ??Report Reviewed and Electronically Signed By ??Makayla Coffey M.D. ?? SPECIMEN TYPE: A: DUODENAL BULB B: 2ND DUODENUM CLINICAL IMPRESSION AND HISTORY: Epigastric abdominal pain. ??Upper endoscopy shows duodenal ulcerations with areas of pigmented material in the duodenal bulb. ??This rest of the duodenum appears normal. GROSS DESCRIPTION: The tissue is received in two containers of formalin both labeled with the patient's name Pina Roche. A. ??The first container is additionally labeled duodenal bulb and contains two light burroughs tissue fragments measuring 0.6 x 0.2 x 0.1 cm in aggregate. ??Due to the color and size of the specimen, hematoxylin is used. The specimen is filtered and submitted entirely in cassette A1. B. ??The second container is additionally labeled second duodenum and contains two light burroughs tissue fragments measuring 0.5 x 0.2 x 0.1 cm in aggregate. ??Due to the color and size of the specimen, hematoxylin is used. The specimen is filtered and submitted entirely in cassette B1. ?[facility]/03/20/2017 12:47 ? RMD,CU MICROSCOPIC DESCRIPTION: Sections of the duodenal bulb biopsy show fragments of duodenal mucosa with erosion accompanied by acute inflammation. ??Viral inclusions are not seen on routine sections. ??Furthermore, immunohistochemical stains for CMV and HSV are negative. ??Granulomas are not present. ??There is no evidence of malignancy. Sections of the biopsy of the second part of duodenum show fragments of tangentially oriented small intestine mucosa with mild acute and chronic inflammation. ??No definitive villous abnormality is seen. ??There is no evidence of malignancy. Clerical Data Follows A; 86280, 31874, 59350 B; 13527 The immunohistochemical test(s) cited in this report, if any, was developed and its performance characteristics determined by [facility] Pathology Department. ??It has not been cleared or approved by the U.S. Food and Drug Administration. ??The FDA has determined that such clearance or approval is not necessary. ??This test is used for clinical purposes. ??It should not be regarded as investigational or for research. ??[facility] is certified under the Clinical Laboratory Improvement Amendments of 1988 (CLIA) as qualified to perform high complexity testing. ??Immunostains were performed on formalin-fixed paraffin embedded tissue using a polymer diaminobenzidine chromogen detection system. Antibodies used may include clone SP1 (rabbit monoclonal, estrogen receptor), clone 1E2 (rabbit monoclonal progesterone receptor), Ki-67 (rabbit monoclonal, 30-9), and [id number] (rabbit polyclonal, c-kit). Frank Shelby MD LAB PATHOLOGY ORDERABLES Ed ited Result - Final [facility] [address] [place], [place] [id number], [facility] * (ABNORMAL) Comprehensive metabolic panel (03/19/2017 5:30 AM CDT) Sodium 139 135 - 145 mmol/L [facility] Potassium, pl 4.2 3.6 - 5.2 mmol/L [facility] [facility] CO2 25 22 - 32 mmol/L [facility] BUN 16.4 8.0 - 25.0 mg/dL [facility] Glucose 107 70 - 199 mg/dL [facility] Comment: Interpretive Data Glucose is assumed to be non-fasting. Current interpretive data was last revised 2017. Creatinine 0.86 0.60 - 1.10 mg/dL [facility] Calcium 8.6 8.5 - 10.3 mg/dL [facility] Chloride 105 97 - 110 mmol/L [facility] Albumin 3.5 3.5 - 5.0 g/dL [facility] AST 33 10 - 45 Units/L [facility] ALT 37 7 - 45 Units/L [facility] Alk phos 57 40 - 130 Units/L [facility] Bilirubin, total 0.60 0.00 - 1.20 mg/dL [facility] Protein, pl 5.6(L) 6.5 - 8.5 g/dL [facility] Anion gap 9 2 - 15 mmol/L [facility] Blood specimen (specimen) 03/19/2017 5:30 AM CDT 03/19/2017 6:49 AM CDT Leilani Eason NP LAB BLOOD ORDERABLE S Final Result [facility] [address] Department [place] [address] * eGFR (03/19/2017 5:30 AM CDT) eGFR 82 mL/min/1.7 3 m2 [facility] Comment: Interpretive Data Reference Interval Normal ?>/= 90 mL/min/1.73m2 Mildly decreased* ? 60 - 89 mL/min/1.73m2 Mildly to moderately decreased ?45 - 59 mL/min/1.73m2 Moderately to severely decreased ??30 - 44 mL/min/1.73m2 Severely decreased ?15 - 29 mL/min/1.73m2 Kidney Failure ?< 15 ??mL/min/1.73m2 *Relative to young adult level If -[place]ore[place] multiply value by 1.16. Estimated glomerular filtration [...] was last reviewed 2017. Blood specimen (specimen) 03/19/2017 5:30 AM CDT 03/19/2017 6:49 AM CDT us Leilani Eason NP LAB BLOOD ORDERABLE S Final Result [facility] [address] Department [place] [address] * CBC with auto differential (03/19/2017 5:30 AM CDT) WBC 3.85 3.80 - 9.90 K/cumm [facility] RBC 4.48 3.90 - 5.20 M/cumm [facility] Hgb 13.5 11.9 - 15.5 g/dL [facility] Hct 39.4 35.6 - 45.5 % [facility] MCV 87.9 81.3 - 96.4 fL [facility] MCH 30.1 27.1 - 33.3 pg [facility] MCHC 34.3 32.3 - 35.7 g/dL [facility] RDW CV 11.7 11.1 - 14.9 % [facility] RDW SD 37.6 35.7 - 48.1 fL [facility] Plt 158 150 - 400 K/cumm [facility] MPV 11.2 9.1 - 12.3 fL [facility] NRBC 0.00 0.00 - 0.20 % [facility] NRBC abs 0.00 0.00 - 0.01 K/cumm [facility] Blood specimen (specimen) 03/19/2017 5:30 AM CDT 03/19/2017 6:49 AM CDT Leilani Eason OBSERVATION NURSE LAB BLOOD ORDERABLE S Final Result Performing Organization Address [facility]/ZIP Co de Phone Number [facility] [address] Department [place] [address] * Differential, auto (03/19/2017 5:30 AM CDT) Pathologist [facility] Neutrophil pct 56.6 44.0 - 80.0 % [facility] Imm gran pct 0.3 0.0 - 1.0 % [facility] Lymphocyte pct 29.6 13.0 - 44.0 % [facility] Monocyte pct 8.3 2.0 - 11.0 % [facility] Eosinophil pct 4.7 0.0 - 6.0 % [facility] Basophil pct 0.5 0.0 - 3.0 % [facility] Neutrophil abs 2.18 1.70 - 6.50 K/cumm [facility] Imm gran abs 0.01 0.00 - 0.10 K/cumm [facility] Lymphocyte abs 1.14 0.80 - 3.30 K/cumm [facility] Monocyte abs 0.32 0.20 - 0.80 K/cumm [facility] Eosinophil abs 0.18 0.00 - 0.50 K/cumm [facility] Basophil abs 0.02 0.00 - 0.10 K/cumm [facility] Blood specimen (specimen) 03/19/2017 5:30 AM CDT 03/19/2017 6:49 AM CDT Leilani Eason NP LAB BLOOD ORDERABLE S Final Result [facility] [address] Department [place] [address] * (ABNORMAL) Urinalysis reflex to microscopic and culture (03/18/2017 10:30 PM CDT) Color, ur Yellow Colorless [facility] Clarity, ur Clear Clear [facility] Specific gravity, ur 1.030 1.005 - 1.030 [facility] pH, ur 5.0 5.0 - 8.0 [facility] Protein, ur ql Negative Negative [facility] Glucose, ur ql Normal Normal [facility] Ketones, ur = or > 80(A) Negative [facility] Bilirubin, ur Negative Negative [facility] Blood, ur Negative Negative [facility] Urobilinogen, ur Normal Normal [facility] Nitrites, ur Negative Negative [facility] Leukocyte esterase, ur Negative Negative [facility] Urine/Blood 03/18/2017 10:3 0 PM CDT 03/18/2017 10:35 PM CDT Sulaiman Osullivan DO LAB MICROBIOLOGY - GENERAL ORDERABLES Final Result Performing Organization Address City/State/[facility] Co de Phone Number [facility] [address] Department [place] [address] * eGFR (03/18/2017 5:52 PM CDT) [facility] eGFR 80 mL/min/1.7 3 m2 [facility] Comment: Interpretive Data Reference Interval Normal ?>/= 90 mL/min/1.73m2 Mildly decreased* ? 60 - 89 mL/min/1.73m2 Mildly to moderately decreased ?45 - 59 mL/min/1.73m2 Moderately to severely decreased ??30 - 44 mL/min/1.73m2 Severely decreased ?15 - 29 mL/min/1.73m2 Kidney Failure ?< 15 ??mL/min/1.73m2 *Relative to young adult level If -[place]ore[place] multiply value by 1.16. Estimated glomerular filtration [...] was last reviewed 2017. Blood specimen (specimen) 03/18/2017 5:52 PM CDT 03/18/2017 5:52 PM CDT us Sulaiman Osullivan DO LAB BLOOD ORDERABLES Final Result [facility] [address] Department [place] [address] * Comprehensive metabolic panel (03/18/2017 5:52 PM CDT) Sodium 142 135 - 145 mmol/L [facility] Potassium, pl 4.3 3.6 - 5.2 mmol/L [facility] CO2 25 22 - 32 mmol/L [facility] BUN 13.7 8.0 - 25.0 mg/dL [facility] Glucose 80 70 - 199 mg/dL [facility] Comment: Interpretive Data Glucose is assumed to be non-fasting. Current interpretive data was last revised 2017. Creatinine 0.87 0.60 - 1.10 mg/dL [facility] Calcium 9.2 8.5 - 10.3 mg/dL [facility] Chloride 104 97 - 110 mmol/L [facility] Albumin 4.2 3.5 - 5.0 g/dL [facility] AST 44 10 - 45 Units/L [facility] ALT 43 7 - 45 Units/L [facility] Alk phos 69 40 - 130 Units/L [facility] Bilirubin, total 0.60 0.00 - 1.20 mg/dL [facility] Protein, pl 6.7 6.5 - 8.5 g/dL [facility] Anion gap 13 2 - 15 mmol/L [facility] Blood specimen (specimen) 03/18/2017 5:52 PM CDT 03/18/2017 5:52 PM CDT Sulaiman Osullivan DO LAB BLOOD ORDERABLES Final Result Performing Organization Address [facility]/ZIP Co de Phone Number [facility] [address] [facility] [place] [address] * Lipase (03/18/2017 5:52 PM CDT) [facility] Lipase 19 13 - 60 Units/L [facility] Comment: Interpretive Data On January 07, 2017 new Chemistry Instrumentation was implemented. ??If you have any questions, please contact the Laboratory at [phone]. Blood specimen (specimen) 03/18/2017 5:52 PM CDT 03/18/2017 5:52 PM CDT Sulaiman Osullivan DO LAB BLOOD ORDERABLES Final Result Performing Organization Address [facility] Co de Phone Number [facility] [address] Department [place] [place] [address] * CBC with auto differential (03/18/2017 5:52 PM CDT) [facility] WBC 4.56 3.80 - 9.90 K/cumm [facility] RBC 4.75 3.90 - 5.20 M/cumm [facility] Hgb 14.5 11.9 - 15.5 g/dL [facility] Hct 41.3 35.6 - 45.5 % [facility] MCV 86.9 81.3 - 96.4 fL [facility] MCH 30.5 27.1 - 33.3 pg [facility] MCHC 35.1 32.3 - 35.7 g/dL [facility] RDW CV 11.7 11.1 - 14.9 % [facility] RDW SD 37.7 35.7 - 48.1 fL [facility] Plt 172 150 - 400 K/cumm [facility] MPV 10.7 9.1 - 12.3 fL [facility] NRBC 0.00 0.00 - 0.20 % [facility] NRBC abs 0.00 0.00 - 0.01 K/cumm [facility] Blood specimen (specimen) 03/18/2017 5:52 PM CDT 03/18/2017 5:52 PM CDT Sulaiman Osullivan DO LAB BLOOD ORDERABLES Final Result Performing Organization Address City/[facility]/ZIP Co de Phone Number [facility] [address] Department [employer] [place] [address] * Differential, auto (03/18/2017 5:52 PM CDT) Neutrophil pct 51.8 44.0 - 80.0 % [facility] Imm gran pct 0.2 0.0 - 1.0 % [facility] Lymphocyte pct 34.6 13.0 - 44.0 % [facility] Monocyte pct 8.8 2.0 - 11.0 % [facility] Eosinophil pct 3.9 0.0 - 6.0 % [facility] Basophil pct 0.7 0.0 - 3.0 % [facility] Neutrophil abs 2.36 1.70 - 6.50 K/cumm [facility] Imm gran abs 0.01 0.00 - 0.10 K/cumm [facility] Lymphocyte abs 1.58 0.80 - 3.30 K/cumm [facility] Monocyte abs 0.40 0.20 - 0.80 K/cumm [facility] Eosinophil abs 0.18 0.00 - 0.50 K/cumm [facility] Basophil abs 0.03 0.00 - 0.10 K/cumm [facility] Blood specimen (specimen) 03/18/2017 5:52 PM CDT 03/18/2017 5:52 PM CDT Sulaiman Osullivan DO LAB BLOOD ORDERABLES Final Result [facility] [address] Department [employer] [place], [place] [id number] documented in this encounter Visit Diagnoses Not on filedocumented in this encounter Care Teams Crtt Relationship Specialty Start Date End Date Jesse Amado MD PCP - General 03/18/17 documented as of this encounter
--- OUTSIDE RECORDS SUMMARY | 2024-10-17 03:16 | XMS_ITS | Encounter Summary ---
Author Organization [facility] Facility Care Team Providers Care Blind Hanger Name Role Phone Unavailable Primary Care Provider Unavailabl e Encounter Details Date Type Department Care Team (Latest Contact Info) Description 12/05/2014 - 12/05/2014 11:59 PM GROUND SERVICE EQUIPMENT MECHANIC Hospital [facility] [place] [address] [place] [address] Low back pain; Pain in soft tissues of limb; Displacement of lumbar intervertebral disc without myelopathy; Spinal stenosis of lumbar region without neurogenic claudication Social History Tobacco Use Types Packs/Day Years Used Date Smoking Tobacco: Never Assessed Comments Unknown Sex and Gender Information Value Date Recorded Sex Assigned at Not on file Legal Sex Female 9:51 AM GROUND SERVICE EQUIPMENT MECHANIC Gender Identity Not on file Sexual Orientation Not on file documented as of this encounter Plan of Treatment Not on file documented as of this encounter Procedures Procedure Name Priority Date/Time Associated Diagnosis Comments MRI LUMBAR SPINE WO CONTRAST Routine 12/05/2014 7:22 PM GROUND SERVICE EQUIPMENT MECHANIC documented in this encounter Results * MRI Lumbar Spine WO Contrast (12/05/2014 7:22 PM GROUND SERVICE EQUIPMENT MECHANIC) Anatomical Region Laterality Modality Spine N/A Magnetic Resonan ce 12/05/2014 7:22 PM GROUND SERVICE EQUIPMENT MECHANIC Narrative 12/06/2014 1:41 PM GROUND SERVICE EQUIPMENT MECHANIC JOAQUIM SHAH M.D. PIOTR CASTILLO M.D. FINAL REPORT The radiology attending physician has personally reviewed this study, and has reviewed and/or edited this written report and agrees with it. ACC# ??Date Time ??Exam [id number] Dec 05, 2014 19:22:00 [id number] MRI Lumbar Spine wo cont ACC# ??Date Time ??Exam [id number] Dec 05, 2014 19:22:00 [id number] MRI Lumbar Spine wo cont EXAMINATION: ?? Lumbar spine magnetic resonance imaging (MRI) without contrast. ? HISTORY: Degenerative disc disease and radiculopathy. TECHNIQUE: Multiplanar multi-weighted magnetic resonance imaging of the lumbar spine was performed without administration of intravenous gadolinium contrast according to the degenerative disc disease protocol. Comparison: None available. FINDINGS: There is mild anterolisthesis of L5 on S1. Vertebral bodies are of normal height without compression fractures. There is a small hemangioma in S2. Otherwise the bone marrow signal is normal. ??The conus medullaris terminates at the level of L1-L2 and the distal spinal cord signal intensity is normal. there is mild disc desiccation at L5-S1 with an annular tear. No soft tissue abnormality within the limited views of the abdomen and pelvis is identified.The aorta is normal. L1-L2: The disc is normal in configuration. There is no facet arthropathy. There is no neural foraminal narrowing. There is no central canal stenosis. L2-L3: The disc is normal in configuration. There is no facet arthropathy. There is no neural foraminal narrowing. There is no central canal stenosis. L3-L4: Mild disc bulge is present. There is no facet arthropathy. There is no neural foraminal narrowing. There is no central canal stenosis. L4-L5: There is a mild asymmetric left disc bulge resulting in mild left neuroforaminal stenosis. There is no facet arthropathy. There is no central canal stenosis. L5-S1: There is a mild disc bulge with a superimposed central protrusion without central canal or neuroforaminal stenosis. There is no facet arthropathy. ?? IMPRESSION: ?? 1. L5-S1 disc bulge with superimposed central protrusion and annular fissure. No neuroforaminal stenosis or central canal stenosis at this level. 2. Mild asymmetric disc bulge at L4-L5 resulting in mild left neuroforaminal stenosis. ?? Requested By: Dictated By: ?? PIOTR CASTILLO M.D. ??on Dec 06 2014 ??8:14A This document has been electronically signed by: JOAQUIM SHAH M.D. on Dec 06 2014 ??1:41P [id number] Procedure Note Provider, MD Kole - 02/03/2017 JOAQUIM SHAH M.D. PIOTR CASTILLO M.D. FINAL REPORT The radiology attending physician has personally reviewed this study, and has reviewed and/or edited this written report and agrees with it. ACC# Date Time Exam [id number] Dec 05, 2014 19:22:00 [id number] MRI Lumbar Spine wo cont ACC# Date Time Exam [id number] Dec 05, 2014 19:22:00 [id number] MRI Lumbar Spine wo cont EXAMINATION: Lumbar spine magnetic resonance imaging (MRI) without contrast. HISTORY: Degenerative disc disease and radiculopathy. TECHNIQUE: Multiplanar multi-weighted magnetic resonance imaging of the lumbar spine was performed without administration of intravenous gadolinium contrast according to the degenerative disc disease protocol. Comparison: None available. FINDINGS: There is mild anterolisthesis of L5 on S1. Vertebral bodies are of normal height without compression fractures. There is a small hemangioma in S2. Otherwise the bone marrow signal is normal. The conus medullaris terminates at the level of L1-L2 and the distal spinal cord signal intensity is normal. there is mild disc desiccation at L5-S1 with an annular tear. No soft tissue abnormality within the limited views of the abdomen and pelvis is identified.The aorta is normal. L1-L2: The disc is normal in configuration. There is no facet arthropathy. There is no neural foraminal narrowing. There is no central canal stenosis. L2-L3: The disc is normal in configuration. There is no facet arthropathy. There is no neural foraminal narrowing. There is no central canal stenosis. L3-L4: Mild disc bulge is present. There is no facet arthropathy. There is no neural foraminal narrowing. There is no central canal stenosis. L4-L5: There is a mild asymmetric left disc bulge resulting in mild left neuroforaminal stenosis. There is no facet arthropathy. There is no central canal stenosis. L5-S1: There is a mild disc bulge with a superimposed central protrusion without central canal or neuroforaminal stenosis. There is no facet arthropathy. IMPRESSION: 1. L5-S1 disc bulge with superimposed central protrusion and annular fissure. No neuroforaminal stenosis or central canal stenosis at this level. 2. Mild asymmetric disc bulge at L4-L5 resulting in mild left neuroforaminal stenosis. Requested By: Dictated By: PIOTR CASTILLO M.D. on Dec 06 2014 8:14A This document has been electronically signed by: JOAQUIM SHAH M.D. on Dec 06 2014 1:41P [id number] Historical Provider MD SINGLETARY MRI PROCEDURES Final Result documented in this encounter Visit Diagnoses Diagnosis Low back pain Lumbago Pain in soft tissues of limb Displacement of lumbar intervertebral disc without myelopathy Spinal stenosis of lumbar region without neurogenic claudication documented in this encounter
--- OUTSIDE RECORDS SUMMARY | 2024-10-17 03:16 | XMS_ITS | Encounter Summary ---
Author Organization [facility] Facility Care Team Providers Care Printing Services Coordinator Name Role Phone Unavailable Primary Care Provider Unavailabl e Encounter Details Date Type Department Care Team (Late st Contact Info) Description 04/14/2012 9:32 AM CDT - 04/14/2012 4:00 PM T Hospital Encounter [facility] Grupo Reese MD [address] [place] [address] Degeneration of cervical intervertebral disc Social History Tobacco Use Types Packs/Day Years Used Date Smoking Tobacco: Never Assessed Comments Unknown Sex and Gender Information Value Date Recorded Sex Assigned at Not on file Legal Sex Female 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
--- OUTSIDE RECORDS SUMMARY | 2024-10-17 03:16 | XMS_ITS | Encounter Summary ---
Author Organization [facility] Facility Care Team Providers Care Lithographic Retoucher Apprentice Name Role Phone Unavailable Primary Care Provider Unavailabl e Encounter Details Date Type Department Care Team (Latest Contact Info) Description 10/30/2015 6:54 AM NAPHTHA WASHING SYSTEM OPERATOR - 10/30/2015 9:30 AM NAPHTHA WASHING SYSTEM OPERATOR Hospital En[facility] Manuel Marte Epigastric pain; Gastro-esophageal reflux disease without esophagitis; Diaphragmatic hernia without obstruction or gangrene; Disease of stomach and duodenum; Fibromyalgia Social History Tobacco Use Types Packs/Day Years Used Date Smoking Tobacco: Never Assessed Comments Unknown Sex and Gender Information Value Date Recorded Sex Assigned at Not on file Legal Sex Female 9:51 AM NAPHTHA WASHING SYSTEM OPERATOR Gender Identity Not on file Sexual Orientation Not on file documented as of this encounter Plan of Treatment Not on file documented as of this encounter Procedures Procedure Name Priority Date/Time Associated Diagnosis Comments UPPER GASTROINTESTINAL ENDOSCOPY REPORT 10/30/2015 SURGICAL PATHOLOGY 10/30/2015 documented in this encounter Results * Surgical pathology (10/30/2015) Narrative 10/30/2015 Ordered by an unspecified provider. Historical Provider LAB PATHOLOGY ORDERABLES Final Result * UPPER GASTROINTESTINAL ENDOSCOPY REPORT (10/30/2015) Anatomical Region Laterality Modality Other Narrative 10/30/2015 Ordered by an unspecified provider. Historical Provider MD GI PROCEDURE ORDERABLES F inal Result documented in this encounter Visit Diagnoses Diagnosis Epigastric pain Abdominal pain, epigastric Gastro-esophageal reflux disease without esophagitis Diaphragmatic hernia without obstruction or gangrene Diaphragmatic hernia without mention of obstruction or gangrene Disease of stomach and duodenum Fibromyalgia Unspecified myalgia and myositis documented in this encounter
--- OUTSIDE RECORDS SUMMARY | 2024-10-17 03:16 | XMS_ITS | Encounter Summary ---
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; Lumbosacral spondylosis without myelopathy; Sacroiliitis, not elsewhere classified (HCC); Pain in joint, multiple sites Social History Tobacco Use Types Packs/Day Years Used Date Smoking Tobacco: Never Assessed Comments Unknown Sex and Gender Information Value Date Recorded Sex Assigned at Not on file 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 Gender Identity Not on file Sexual Orientation Not on file documented as of this encounter Plan of Treatment Not on file documented as of this encounter Procedures Procedure Name Priority Date/Time Associated Diagnosis Comments SERUM ANTINUCLEAR AB (STEPHANIE) Routine 03/16/2015 1:35 PM CDT XR SACRUM COCCYX 2 OR MORE VIEWS Routine 03/16/2015 12:34 PM CDT XR SPINE THORACIC 2 VIEWS Routine 03/16/2015 12:34 PM CDT SERUM RHEUMATOID FACTOR QUANTITATIVE Routine 03/16/2015 8:35 AM CDT SERUM ANTINUCLEAR AB (STEPHNAIE) Routine 03/16/2015 8:35 AM CDT BLOOD ERYTHROCYTE SEDIMENTATION RATE (ESR) Routine 03/16/2015 7:35 AM CDT DISCHARGE LABORATORY CUMULATIVE REPORT 03/16/2015 documented in this encounter Results * (ABNORMAL) Serum antinuclear ab (STEPHANIE) (03/16/2015 1:35 PM CDT) STEPHANIE, quant 1:320(A) Negative titer HISTORICAL RESULTS STEPHANIE, interp Homogeneou s(A) HISTORICAL RESULTS STEPHANIE, interp Speckled(A ) HISTORICAL RESULTS Serum 03/16/2015 1:35 PM CDT us Piotr Reese MD LAB BLOOD ORDERABLES Final Result HISTORICAL RESULTS * XR Spine Thoracic 2 View (03/16/2015 12:34 PM CDT) Anatomical Region Laterality Modality Spine N/A Radiographic Garden[place] ging 03/16/2015 12:3 4 PM CDT Narrative 03/16/2015 12:43 PM CDT ION TOM M.D. FINAL REPORT ACC# ??Date Time ??Exam [id number] Mar 16, 2015 12:34:00 95950 Spine Thoracic 2 views [id number] Mar 16, 2015 12:34:00 05401 Sacrum & Coccyx min 2 vws EXAMINATION: ?? 1. Thoracic spine 2 views. 2. Sacrum and coccyx minimum 2 views. HISTORY: Thoracic spondylosis and sacroiliac osteoarthritis. FINDINGS: Thoracic spine: 2 views of the thoracic spine obtained on 3 exposures is compared to MRI dated 04/14/2012. There is mild multilevel degenerative disc disease throughout the mid and lower thoracic spine. There is no compression fracture. There is no listhesis. Imaged lungs are clear. Cholecystectomy clips are noted. Three views of the sacrum and coccyx are compared to CT of the abdomen and pelvis dated 05/03/2013. There is no acute fracture. There is mild bilateral sacroiliac joint osteoarthritis. Sutures are noted within the right pelvis. Hip joint spaces are intact. IMPRESSION: ?? 1. Mild mid thoracic degenerative disease. No fracture. 2. Mild bilateral sacroiliac joint osteoarthritis. Requested By: PIOTR REESE M.D. Dictated By: ?? ION TOM M.D. ??on Mar?2014 12:43P This document has been electronically signed by: ION TOM M.D. on Mar?2014 12:43P [id number] Procedure Note Provider, Kole, - 02/03/2017 ION TOM M.D. FINAL REPORT ACC# Date Time Exam [id number] Mar 16, 2015 12:34:00 [id number] Spine Thoracic 2 views [id number] Mar 16, 2015 12:34:00 [id number] Sacrum & Coccyx min 2 vws EXAMINATION: 1. Thoracic spine 2 views. 2. Sacrum and coccyx minimum 2 views. HISTORY: Thoracic spondylosis and sacroiliac osteoarthritis. FINDINGS: Thoracic spine: 2 views of the thoracic spine obtained on 3 exposures is compared to MRI dated 04/14/2012. There is mild multilevel degenerative disc disease throughout the mid and lower thoracic spine. There is no compression fracture. There is no listhesis. Imaged lungs are clear. Cholecystectomy clips are noted. Three views of the sacrum and coccyx are compared to CT of the abdomen and pelvis dated 05/03/2013. There is no acute fracture. There is mild bilateral sacroiliac joint osteoarthritis. Sutures are noted within the right pelvis. Hip joint spaces are intact. IMPRESSION: 1. Mild mid thoracic degenerative disease. No fracture. 2. Mild bilateral sacroiliac joint osteoarthritis. Requested By: PIOTR REESE M.D. Dictated By: ION TOM M.D. on Mar 16 2015 12:43P This document has been electronically signed by: ION TOM M.D. on Mar 16 2015 12:43P [id number] Historical Provider IMG XR PROCEDURES Final R esult * XR Sacrum And Coccyx 2 View (03/16/2015 12:34 PM CDT) Anatomical Region Laterality Modality Pelvis, Body N/A Radiographic [place] ging 03/16/2015 12:3 4 PM CDT Narrative 03/16/2015 12:43 PM CDT ION TOM M.D. FINAL REPORT ACC# ??Date Time ??Exam [id number] Mar 16, 2015 12:34:00 01142 Spine Thoracic 2 views [id number] Mar 16, 2015 12:34:00 22613 Sacrum & Coccyx min 2 vws EXAMINATION: ?? 1. Thoracic spine 2 views. 2. Sacrum and coccyx minimum 2 views. HISTORY: Thoracic spondylosis and sacroiliac osteoarthritis. FINDINGS: Thoracic spine: 2 views of the thoracic spine obtained on 3 exposures is compared to MRI dated 04/14/2012. There is mild multilevel degenerative disc disease throughout the mid and lower thoracic spine. There is no compression fracture. There is no listhesis. Imaged lungs are clear. Cholecystectomy clips are noted. Three views of the sacrum and coccyx are compared to CT of the abdomen and pelvis dated 05/03/2013. There is no acute fracture. There is mild bilateral sacroiliac joint osteoarthritis. Sutures are noted within the right pelvis. Hip joint spaces are intact. IMPRESSION: ?? 1. Mild mid thoracic degenerative disease. No fracture. 2. Mild bilateral sacroiliac joint osteoarthritis. Requested By: PIOTR REESE M.D. Dictated By: ?? ION TOM M.D. ??on Mar?2014 12:43P This document has been electronically signed by: ION TOM M.D. on Mar ??2014 12:43P [id number] Procedure Note Provider, MD Kole - 02/03/2017 ION TOM M.D. FINAL REPORT ACC# Date Time Exam [id number] Mar 16, 2015 12:34:00 18913 Spine Thoracic 2 views [id number] Mar 16, 2015 12:34:00 [id number] Sacrum & Coccyx min 2 vws EXAMINATION: 1. Thoracic spine 2 views. 2. Sacrum and coccyx minimum 2 views. HISTORY: Thoracic spondylosis and sacroiliac osteoarthritis. FINDINGS: Thoracic spine: 2 views of the thoracic spine obtained on 3 exposures is compared to MRI dated 04/14/2012. There is mild multilevel degenerative disc disease throughout the mid and lower thoracic spine. There is no compression fracture. There is no listhesis. Imaged lungs are clear. Cholecystectomy clips are noted. Three views of the sacrum and coccyx are compared to CT of the abdomen and pelvis dated 05/03/2013. There is no acute fracture. There is mild bilateral sacroiliac joint osteoarthritis. Sutures are noted within the right pelvis. Hip joint spaces are intact. IMPRESSION: 1. Mild mid thoracic degenerative disease. No fracture. 2. Mild bilateral sacroiliac joint osteoarthritis. Requested By: PIOTR REESE M.D. Dictated By: ION TOM M.D. on Mar 16 2015 12:43P This document has been electronically signed by: ION TOM M.D. on Mar 16 2015 12:43P [id number] Historical Provider IMG XR PROCEDURES Final R esult * (ABNORMAL) Serum antinuclear ab (STEPHANIE) (03/16/2015 8:35 AM CDT) STEPHANIE, qual Positive(A ) Negative HISTORICAL RESULTS Serum 03/16/2015 8:35 AM CDT Narrative HISTORICAL RESULTS - 03/17/2015 9:50 AM CDT Client / Account bill? No Client Account Number and Description: Interpretive Data Normal range for Stephanie Qualitative Antibody = Negative. 1. ??STEPHANIE titers are performed on all positive qualitative results. 2. ??A significantly positive STEPHANIE result is defined as a positive nuclear fluorescence at a titer of 1:80 or greater. 3. ??15% of normal people above age 65 have significantly positive STEPHANIE results. ??5% or less of normal people age 65 or under have significantly positive STEPHANIE results. Current interpretive data was last revised on 04. us Piotr Reese MD LAB BLOOD ORDERABLES Final Result Performing Organization Address City/[facility] Co de Phone Number HISTORICAL RESULTS * Serum rheumatoid factor quantitative (03/16/2015 8:35 AM CDT) Rheumatoid factor, quant <10 0 - 15 IUnits/ml HISTORICAL RESULTS Comment:{Repeated and verifi ed.} Serum 03/16/2015 8:35 AM CDT Narrative HISTORICAL RESULTS - 03/17/2015 7:30 AM CDT Client / Account bill? No Client Account Number and Description: Piotr Reese MD LAB BLOOD ORDERABLES Final Result Performing Organization Address [facility] Co de Phone Number HISTORICAL RESULTS * Blood erythrocyte sedimentation rate (ESR) (03/16/2015 7:35 AM CDT) Erythrocyte sedimentation rate 4.0 0.0 - 25.0 mm/hr HISTORICAL RESULTS Blood specimen (specimen) 03/16/2015 7:35 AM CDT Narrative HISTORICAL RESULTS - 03/16/2015 10:00 AM CDT Client / Account bill? No Client Account Number and Description: Piort Reese MD LAB BLOOD ORDERABLES Final Result Performing Organization Address [facility] de Phone Number HISTORICAL RESULTS * DISCHARGE LABORATORY CUMULATIVE REPORT (03/16/2015) Narrative 03/16/2015 Ordered by an unspecified provider. Result [facility] Historical Provider LAB BLOOD ORDERABLES Jonna l Result documented in this encounter Visit Diagnoses Diagnosis Degeneration of thoracic or thoracolumbar intervertebral disc Lumbosacral spondylosis without myelopathy Sacroiliitis, not elsewhere classified (HCC) Sacroiliitis, not elsewhere classified Pain in joint, multiple sites documented in this encounter
--- OUTSIDE RECORDS SUMMARY | 2024-10-17 03:16 | XMS_ITS | Encounter Summary ---
Author Organization [facility] Facility Care Team Providers Care Block Saw Operator Name Role Phone Unavailable Primary Care Provider Unavailabl e Encounter Details Date Type Department Care Team (Late st Contact Info) Description 04/28/2008 8:50 AM CDT - 04/28/2008 4:00 PM T Hospital Encounter [facility] Grupo Reese MD [address] [facility] [address] [place] [address] Social History Tobacco Use Types Packs/Day Years Used Date Smoking Tobacco: Never Assessed Comments Unknown Sex and Gender Information Value Date Recorded Sex Assigned at Not on file 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
--- OUTSIDE RECORDS SUMMARY | 2024-10-17 03:16 | XMS_ITS | Encounter Summary ---
Author Organization [facility] Facility Care Team Providers Care Enterprise Cloud Architect Name Role Phone Unavailable Primary Care Provider Unavailabl e Encounter Details Date Type Department Care Team (Latest Contact Info) Description 03/25/2014 - 03/25/2014 11:59 PM CDT Hospital Encounter [facility] Yaakov Stacy MD [address] [facility] [address] [place] [address] Other screening mammogram; Inconclusive mammogram; Other abnormal findings on radiological examination of breast Social History Tobacco Use Types Packs/Day Years Used Date Smoking Tobacco: Never Assessed Comments Unknown Sex and Gender Information Value Date Recorded Sex Assigned at Not on file 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 FINAL REPORT ACC# ??Date Time ??Exam [id number] Mar 25, 2014 13:51:00 [facility] [address] Screening Mamm Bilat ?? Technologist(s): Nirmala Mackenzie; ; EXAMINATION: ADDENDUM 04/12/2014 05:13PM ADDENDUM: 04/12/2014 The present examination has been compared to prior imaging studies performed at [facility] on 01/09/2012 and 01/04/2012. Punctate calcifications in the left breast are benign. Annual screening mammography is recommended. OVERALL FINAL ASSESSMENT: BI-RADS CATEGORY 2: ??Benign. END OF ADDENDUM ??Mammogram Technique: Bilateral Full-Field Digital Screening Mammogram was performed. ??Views obtained: ??bilateral craniocaudal and bilateral mediolateral oblique. Computer Aided Detection was performed with Labochema3 version 9.3. Mammogram Findings: There are scattered fibroglandular densities. There are punctate calcifications with grouped distribution in the central area of the left breast. There is no suspicious abnormality in the right breast. IMPRESSION: ??Calcifications in the left breast require additional evaluation. COMPARISON TO PRIOR FILMS is recommended. OVERALL FINAL ASSESSMENT: BI-RADS CATEGORY 0: ??Incomplete: Need Additional Imaging Evaluation - Comparison with Prior Studies Requested By: Yaakov Stacy ??M.D. Dictated By: ?? JOHN SANDERSON M.D. ??on Mar 31 2014 ??2:37P This document has been electronically signed by: JOHN SANDERSON M.D. on Mar 31 2014 ??2:37P ??on Apr ??2013 ??5:13P This Addendum has been electronically signed by: JOHN SANDERSON M.D. on Apr ??2013 ??5:13P Procedure Note Provider, MD Kole - 02/03/2017 JOHN SANDERSON M.D. FINAL REPORT ACC# Date Time Exam [id number] Mar 25, 2014 13:51:00 [facility] [address]72 Screening Mamm Bilat Technologist(s): Nirmala Mackenzie; ; EXAMINATION: ADDENDUM 04/12/2014 05:13PM ADDENDUM: 04/12/2014 The present examination has been compared to prior imaging studies performed at [facility] on 01/09/2012 and 01/04/2012. Punctate calcifications in the left breast are benign. Annual screening mammography is recommended. OVERALL FINAL ASSESSMENT: BI-RADS CATEGORY 2: Benign. END OF ADDENDUM Mammogram Technique: Bilateral Full-Field Digital Screening Mammogram was performed. Views obtained: bilateral craniocaudal and bilateral mediolateral oblique. Computer Aided Detection was performed with Labochema3 version 9.3. Mammogram Findings: There are scattered fibroglandular densities. There are punctate calcifications with grouped distribution in thecentral area of the left breast. There is no suspicious abnormality in the right breast. IMPRESSION: Calcifications in the left breast require additional evaluation. COMPARISON TO PRIOR FILMS is recommended. OVERALL FINAL ASSESSMENT: BI-RADS CATEGORY 0: Incomplete: Need Additional Imaging Evaluation - Comparison with Prior Studies Requested By: Yaakov Stacy M.D. Dictated By: JOHN SANDERSON M.D. on Mar 31 2014 2:37P This document has been electronically signed by: JOHN SANDERSON M.D. on Mar 31 2014 2:37P on Apr 12 2014 5:13P This Addendum has been electronically signed by: JOHN SANDERSON M.D. on Apr 12 2014 5:13P us Historical Provider MD SINGLETARY MAMMO PROCEDURES Jonna l Result documented in this encounter Visit Diagnoses Diagnosis Other screening mammogram Inconclusive mammogram Other abnormal findings on radiological examination of breast documented in this encounter
--- OUTSIDE RECORDS SUMMARY | 2024-10-17 03:16 | XMS_ITS | Encounter Summary ---
Author Organization [facility] Facility Care Team Providers Care Certification Engineer Name Role Phone Unavailable Primary Care Provider Unavailabl e Encounter Details Date Type Department Care Team (Late st Contact Info) Description 12/02/2014 - 12/02/2014 11:59 PM DESIGN PRINTER BALLOON Hospital Encounter [facility] Santiago Galo DO [address] [place] [address] Social History Tobacco Use Types Packs/Day Years Used Date Smoking Tobacco: Never Assessed Comments Unknown Sex and Gender Information Value Date Recorded Sex Assigned at Not on file 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
== END 2024-10-10 10:29 | disposition home or self-care (01) ==
PROVIDERS: Emergency Provider Emergency Medicine; PCP Family Medicine
DX: N39.0 Urinary tract infection, site not specified (principal); F03.90 Unspecified dementia, unspecified severity, without behavioral disturbance, psychotic disturbance, mood disturbance, and anxiety; M81.0 Age-related osteoporosis without current pathological fracture; I73.00 Raynaud's syndrome without gangrene; E55.9 Vitamin D deficiency, unspecified
CPT/HCPCS: 81001; 87086; 96372; 99283; J0696; J2003

== ENCOUNTER 2024-10-14 12:03 | Emergency (ER) | payer BC, SELFPAY ==
--- NOTE | ~2024-10-14 | XR_ITS ---
EXAMINATION: XR sacroiliac joints min 3V DATE: 10/14/2024 13:05 INDICATION: Left sacroiliac joint pain. TECHNIQUE: 3 views of the sacroiliac joints were obtained. COMPARISON: CT abdomen and pelvis 11/01/2023 FINDINGS: Alignment is normal. No fracture. There is mild osteoarthritis of the sacroiliac joints. IMPRESSION: 1. Mild osteoarthritis of the sacroiliac joints. No evidence of inflammatory arthropathy. Reviewed, dictated and finalized at location A. [employer] IMPRESSION: 1. Mild osteoarthritis of the sacroiliac joints. No evidence of inflammatory ar thropathy.
[2024-10-14 12:19] VITALS: BP 144/87; PULSE 69; RESP 16; TEMP 36.6; O2SAT 100
--- NOTE | 2024-10-14 12:24 | ED_ITS ---
HPI - Female Genitourinary General Chief complaint: Extremity Problem,Nontraumatic Stated complaint: UTI symptoms/lower back pain Time Seen by Provider: 10/14/24 18:00 Focused HPI: 54-year-old female presents to the emergency department for left lower back pain for 2 days. Patient denies injury or trauma. She points to her left posterior hip/SI. States pain is worse when she goes from a sitting to standing position. She was seen in our ED on 10/10 and diagnosed with a UTI. She was started on cefdinir she has been taking as directed. She was told if she began developing flank pain to return to the emergency department. Patient is not having any flank pain or abdominal pain. No fevers. GENERAL: Well-appearing, well-nourished, and in no acute distress. HEAD: Normocephalic, atraumatic. CHEST: Clear to auscultation. ?No respiratory distress. BACK: No tenderness to the lumbar spine. Tenderness over the left SI with no crepitus, step-offs or deformities HEART: Regular rate and rhythm.? NEURO: ?Alert and oriented x3. Patient screened in triage and initial orders placed.? ?Additional care and disposition to be based upon?diagnostic testing and treatment. History of Present Illness HPI Narrative: Agree with the above note. Related Data Home Medications ?Medication ?Instructions ?Recorded ?Confirmed ?Last Taken ?Type epinephrine 0.3 mg/0.3 mL subcut 01/07/24 01/07/24 Unknown History injection, auto-injector Allergies Allergy/AdvReac Type Severity Reaction Status Date / Time ibandronate sodium Allergy Severe esophagitis Verified 10/10/24 10:13 prochlorperazine Allergy Severe Anxiety Verified 10/10/24 10:13 doxycycline Allergy Intermediate mus Verified 10/10/24 10:13 ciprofloxacin Allergy Mild MUSCLE Verified 10/10/24 10:13 ACHES iodine Allergy Mild Unknown Verified 10/10/24 10:13 morphine Allergy Mild N/V Verified 10/10/24 10:13 Quinolones Allergy Mild Unknown Verified 10/10/24 10:13 tetracycline Allergy Mild MUSCLE ACHS Verified 10/10/24 10:13 promethazine Allergy Unknown Unknown Verified 10/10/24 10:13 sulfamethoxazole Allergy Unknown Unknown Verified 10/10/24 10:13 trimethoprim Allergy Unknown Unknown Verified 12/29/24 10:13 Contrast Media Allergy Severe IVP DYE Uncoded 10/10/24 10:13 CAUSES RESPIRATORY DISTRESS Review of Systems Review of Systems: All systems reviewed & are unremarkable except as noted in HPI and below PMFSH Past Medical History Medical History Thyroid nodule Encounter for immunization Erosive (osteo)arthritis Osteoporosis Sphincter of Oddi dysfunction Osteoporosis Overweight (BMI 25.0-29.9) Osteopenia Hiatal hernia Acute gastritis without bleeding Duodenal ulcer, unspecified as acute or chronic, without hemorrhage or pe rforation Esophageal reflux Fibromyalgia Migraine with aura and with status migrainosus, not intractable Mild intermittent asthma, uncomplicated Monoclonal gammopathy of unknown significance (MGUS) 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 Raynaud's syndrome Selective deficiency of immunoglobulin a [iga] Unspecified vitamin D deficiency Surgical History Surgical History Hx of tonsillectomy H/O sinus surgery History of bladder surgery History of hysterectomy Hx of cholecystectomy H/O rectal sphincterotomy History of ERCP x2 Family History Family History Mother Family history of osteoporosis Hypertension Family history of arthritis Depression Family history of psoriasis Grandparent Family history of osteoporosis Hypertension Family history of malignant neoplasm Family history of chronic obstructive pulmonary disease Family history of Alzheimer's disease Family history of glaucoma Cerebrovascular accident Family history of malignant neoplasm of breast Family history of lymphoma Family history of malignant neoplasm of ovary Father Hypertension Asthma Other Family history of migraine headaches Social History Social History Smoking status: Never smoker Alcohol intake: never Substance use: never Lack of Transportation: No Lack of Food: Never True Current Housing: I Have Housing Concerned About Future Housing: No Difficulty Paying Gas/Electric Bills: No Difficulty Paying for Meds: No Currently Unemployed: No Gender identity (if verbalized by the patient): Female Exam Narrative: GENERAL: Well-appearing, well-nourished, and in no acute distress. HEAD: Normocephalic, atraumatic. EYES: EOMI. ENT: Nares clear, no rhinorrhea or epistaxis. Mucous membranes moist. NECK: Supple. BACK: No midline thoracolumbar spinous tenderness, crepitus, step-offs or deformities. CHEST: Clear to auscultation. No respiratory distress. HEART: Regular rate and rhythm. No murmur heard. Normal peripheral pulses. ABDOMEN: Soft, nontender, nondistended, normal active bowel sounds. No rebound, guarding or rigidity. No CVA tenderness EXTREMITIES: Point tenderness over the left SI with no overlying skin changes, crepitus, step-offs or deformities. Full active and passive range of motion of hip. Sensation intact throughout SKIN: Warm, dry, no rash. NEURO: No focal deficits. Alert and oriented x3 Course Vital Signs Vital signs: Vital Signs Temperature 97.8 F 10/14/24 12:19 Pulse Rate 69 10/14/24 12:19 Respiratory Rate 16 10/14/24 12:19 Blood Pressure 144/87 H 10/14/24 12:19 Pulse Oximetry 100 10/14/24 12:19 Temperature 97.8 F 10/14/24 12:19 Pulse Rate 69 10/14/24 12:19 Respiratory Rate 16 10/14/24 12:19 Blood Pressure 144/87 H 10/14/24 12:19 Pulse Oximetry 100 10/14/24 12:19 MDM - Female Genitourinary MDM Narrative Medical decision making narrative: 54-year-old female presents to the emergency department for left SI joint pain for 2 days. No injury or trauma. Vital signs are stable. She is afebrile and nontoxic appearing. Exam is significant for point tenderness over the left SI. Patient presented today because she was seen few days ago for UTI. She was advised to come back to the ER she developed back pain. On exam patient has no tenderness whatsoever to the CVA regions and no abdominal tenderness. Her pain is reproduced with point tenderness over the left SI. X-ray shows mild osteoarthritis of the SI joint with no acute findings. Workup was discussed with the patient. She was advised to use Tylenol ibuprofen as needed for pain over the counter to follow-up with her PCP. She has an appointment this upcoming Friday. Return precautions were provided. She is agreeable with the plan verbalized understanding. Discharged in stable condition. Discharge Plan Discharge Clinical Impression: Sacroiliac joint pain Patient Disposition: Home, Self-Care Condition: Stable Instructions: Antibiotic Form, Arthritis (ED) Additional Instructions: Continue taking the antibiotic as directed. Take Tylenol and ibuprofen as directed over the counter as needed for pain. Follow up with her primary care provider. Return to the emergency department if you develop fever, worsening pain, abdominal pain or other concerning symptoms. Patient Language: Mongolian Prescriptions: No Action epinephrine 0.3 mg/0.3 mL auto-injector subcut fluoxetine [Prozac] 20 mg capsule 20 mg PO DAILY Qty: 90 0RF cefpodoxime 200 mg tablet 200 mg PO BID Qty: 20 0RF Rx Instructions: must administer with a meal/food cefdinir 300 mg capsule 300 mg PO Q12H Qty: 14 0RF Follow-up/Referrals: Jonathan Amado MD [Primary Care Provider] -
== END 2024-10-14 20:43 | disposition home or self-care (01) ==
PROVIDERS: Emergency Provider Physician Assistant; PCP Family Medicine
DX: M53.3 Sacrococcygeal disorders, not elsewhere classified (principal); I73.00 Raynaud's syndrome without gangrene; J45.20 Mild intermittent asthma, uncomplicated; E55.9 Vitamin D deficiency, unspecified; E66.3 Overweight; Z68.27 Body mass index [BMI] 27.0-27.9, adult; D80.2 Selective deficiency of immunoglobulin A [IgA]; M85.80 Other specified disorders of bone density and structure, unspecified site; M19.90 Unspecified osteoarthritis, unspecified site; M81.0 Age-related osteoporosis without current pathological fracture; K44.9 Diaphragmatic hernia without obstruction or gangrene; K21.9 Gastro-esophageal reflux disease without esophagitis; Z90.710 Acquired absence of both cervix and uterus; Z90.49 Acquired absence of other specified parts of digestive tract
CPT/HCPCS: 72202; 99283

== ENCOUNTER 2025-02-25 20:17 | Emergency (ER) | payer BC, SELFPAY ==
--- NOTE | ~2025-02-25 | CT_ITS ---
CT abdomen pelvis wo con Ordering provider: Haydee Downey PA-C History: 54 years Female with . uti, R flank pain, r/o stone . Comparison: None. Technique: CT abdomen and pelvis without IV and without oral contrast. Automated exposure control and iterative reconstruction technique were employed. The dose-length product was 212.51 mGy-cm. Findings: VISUALIZED LOWER CHEST: Normal. UPPER ABDOMINAL ORGANS: Liver: Fat is seen in the left intrahepatic bile ducts of the left lobe. Otherwise, Normal. Gallbladder: Status post cholecystectomy. Spleen: Normal. Stomach/duodenum: Normal. Pancreas: Normal. Adrenals: Normal. Kidneys: Normal. PELVIC ORGANS: The bladder is underfilled.. BOWEL AND MESENTERY: Colon: No evidence of diverticulitis.. Fecal material is loaded in the colon. Normal appendix. Small Bowel: Normal. No obstruction. Peritoneum/mesentery: No free air or free fluid. No mesenteric lymphadenopathy. RETROPERITONEUM: Normal aorta. No retroperitoneal lymphadenopathy. MUSCULOSKELETAL: Superficial soft tissues: The superficial soft tissues are normal. Bones: Age appropriate degenerative changes of the spine. . Symphysitis. IMPRESSION: 1. No evidence of appendicitis, diverticulitis or intestinal obstruction. 2. No renal stones seen. 3. Constipation. Reviewed, dictated and finalized at location A.
--- OUTSIDE RECORDS SUMMARY | 2025-02-25 20:20 | XMS_ITS | Clinical Summary ---
Author Organization [facility] Address [address] [place] [address] Care Team Providers Care Planetarium Sky Show Technician Name Role Phone Jonathan Amado MD Primary Care Provider [phone] Jim Shelby MD Unavailable [phone] Allergies Active Allergy Reactions Criticality Noted Date [...] 06/24/2013 Sulfasalazine Rash Medium 04/24/2012 Body aches [place] Pollen-Short Ragweed Unknown 01/28/2023 ragweed - allergy Medications cetirizine (ZyrTEC) 10 mg tablet Take 1 tablet (10 mg total) by mouth daily Active acetaminophen (TYLENOL) 325 mg tablet Take 2 tablets (650 mg total) by mouth every 8 (eight) hours 30 tablet 9 Active Additional Information Patient not taking.Reported on 10/26/2024 tobramycin, bulk, 900 mcg/mg (not less than, [...] estradioL (Estrace) 0.01 % (0.1 mg/gram) vaginal creamIndication s:Atrophy of Vulva Insert 2 g into the vagina 2 (two) times a week 42.5 g 2 2 Active albuterol HFA (PROVENTIL HFA,VENTOLIN HFA,PROAIR HFA) 90 mcg/actuation inhaler INHALE 2 PUFFS INHALATION ROUTE EVERY 4 HOURS NEEDED Active azelastine 205.5 mcg (0.15 %) spray,non-aeros ol Administer 0.3 mL (2 sprays total) into [...] days for 8 weeks 8 capsule 4 Active cefdinir (OMNICEF) 300 mg capsule Take 1 capsule (300 mg total) by mouth 2 (two) times a day 4 Active Active Problems Problem Noted Date Diagnosed Date Arthritis of right sacroiliac joint 10/21/2024 Overview (10/21/2024): Treated with Kenalog injection, 2007 Chronic cough 10/21/2024 Easy bruising 10/21/2024 Eczema 10/21/2024 Exercise-induced asthma 10/21/2024 Overview (10/21/2024): 1997 Gastroesophageal reflux disease 10/21/2024 Overview (10/21/2024): 1996 Hyperinflation of lungs 10/21/2024 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 Overview (10/21/2024): Detected 2000 Irritable bowel syndrome 10/21/2024 Overview (10/21/2024): 1997 Nasal congestion 10/21/2024 Palpable thyroid 10/21/2024 Postoperative biliary stricture 10/21/2024 Overview (10/21/2024): Postoperative complication of a CCK, 2003 SOB (shortness of breath) 10/21/2024 Unintentional weight loss 10/21/2024 Vitamin D deficiency 10/21/2024 Chronic midline thoracic back pain 08/25/2023 Premature [...] (04/21/2019): Added automatically from request for surgery [id number] Elevated CK 03/01/2019 Urticaria 03/01/2019 Memory loss [...] Prepatellar bursitis 08/01/2014 Chronic frontal sinusitis 03/10/2014 Methicillin resistant Staphylococcus aureus infe ction 11/29/2013 Overview (10/21/2024): Positive nares culture, 2013. Common variable agammaglobulinemia 09/20/2013 Overview (10/21/2024): Borderline low immunoglobulins were first detected on 09/20/2013. Subsequent immune challenges demonstrated normal humoral immune responses. Chronic sinusitis 10/08/2011 Encounters Date Type Department Care Team Description 02/23/2025 3:00 PM CDT Infusion [facility] [facility] [address] [place] [address] [place] [address] Postmenopausal osteoporosis (Primary Dx) 01/26/2025 1:45 PM CDT Infusion [facility] [address] [facility] [address] [facility] [address] [place] [address] [place] [address] Postmenopausal osteoporosis (Primary Dx) 01/18/2025 3:27 PM CDT - 01/18/2025 11:59 PM CDT Hospital Encounter [facility] [address] [place] [address] Discharge Disposition: Discharge to home or self care 01/18/2025 12:25 PM CDT - 01/18/2025 11:59 PM CDT Hospital Encounter [facility] - Imaging [address] [place] [address] Inflammatory polyarthropathy (HCC) Discharge Disposition: Discharge to home or self care 01/13/2025 Orders Only [facility] [address] [facility] [address] [place] [address] [place] [id number] Daniel Ellis MD Other amnesia (Primary Dx); Aphasia; Alzheimer's disease with early onset (HCC) 01/07/2025 Documentation [facility] [address] [facility] [address] [place] [address] David Holland RMA from Last 3 Months Immunizations Immunization Administration Dates Next Due Influenza, Quadrivalent, Rec ombinant, Egg Free, Preservative Free, Intramuscular 08/16/2021,09/17/2019 Influenza, Quadrivalent, Spl it, Preservative Free, Intramuscular 07/23/2018 Influenza, Trivalent, Preservative Free, Intramu scular 07/25/2017 Influenza, Unspecified 07/03/2020 Pneumococcal Polysaccharide PPV23 06/29/2020,02/2012 TD Preservative Free 10/17/2011 Tdap 06/22/2018,10/29/2017 Surgical History Surgery Date Site/Laterality Comments CA DILATION & CURETTAGE DX&/THER NONOBSTETRIC BLADDER SURGERY [...] infection 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 ([facility]) 2019 Family History Medical History Relation Name [...] and Family Not on file 12/13/2019 Attends [employer] Services Not on file 12/12 Active Member [...] on file Legal Sex Female 9:51 AM CATH LAB NURSE Gender Identity Not on file Sexual Orientation [...] Sign Reading Time Taken Comments Blood Pressure 133/90 10/26/2024 9:59 AM CATH LAB NURSE Pulse 59 10/26/2024 9:59 AM CATH LAB NURSE Temperature 36.7 C (98 F) 07/08/2019 4:21 PM CDT Respiratory Rate 16 06/16/2019 8:30 PM CDT Oxygen Saturation 95% 06/16/2019 8:30 PM CDT Inhaled Oxygen Concentration - - Weight 73.5 kg (162 lb) 10/26/2024 9:59 AM CATH LAB NURSE Height 159.3 cm (5' 2.7 ) 10/26/2024 9:59 AM CATH LAB NURSE Body Mass Index 28.97 10/26/2024 9:59 AM CATH LAB NURSE Plan of Treatment Health Maintenance Due Date Last Done Comments Depression Screening 1971 Hepatitis C Screening 1971 Hepatitis B Screening 1989 Zoster Vaccine (1 of 2) 1990 Pneumococcal vaccine <65 (3 of 3 - PCV) 06/29/2021 06/29/2020, 10/17/2011 Breast Cancer Screening-Mammogram 12/24/2022 12/24/2021, 12/01/2020, 11/01/2019, Additional history exists Covid-19 Vaccine (4 - 2023-2 5 season) 2024 07/17/2021, 12/29/2020, 12/08/2020 Influenza Vaccine (Season Ended) 2025 08/16/2021, 07/03/2020, 09/17/2019, Additional history exists Regular Well Visit/Exam 18-64 10/26/2025, 07/17/2022, 07/03/2020, Additional history exists DTaP/Tdap/Td Vaccine (3 - Td or Tdap) 06/22/2028 06/22/2018, 10/29/2017, 10/17/2011 Colon Cancer Screening-Colonoscopy 08/21/20282017, 10/31/2014 Medical Devices Explanted Type Area Concert Manager Device Identifier Shelf Expiration Date Model / Serial / Lot [employer] [id number] Rojo Flexi-Stent 7fr 3cm Small Pigtail Flexible .035in Stent - [id number] Implanted:Qty: 1 on 04/19/2019 by Jim Shelby MD at [facility] Explanted:Qty: 1 on 04/21/2019 at [facility] Stent Pancreas [employer] 11/12/2023 657 1 / / [id number] Conmed Tracie [id number] [place] Viabil 10mm 8.5fr 6cm 200cm Fully Covered Self Expand Pull - [id number] - [id number] Implanted:Qty: 1 on 04/19/2019 by Jim Shelby MD at [facility] Explanted:Qty: 1 on 04/21/2019 at [facility] Stent Bile Duct Conmed Tracie 12/21/2021 [id number] / [id number] / Procedures Procedure Name Priority Date/Time Associated Diagnosis Comments XR SPINE CERVICAL W FLEXION AND EXTENSION 4 VIEWS Schedule Routine, Read Routine (OP Routine) 01/18/2025 12:53 PM CDT Inflammatory polyarthropathy (HCC) EGFR Routine 01/18/2025 11:26 AM CDT CYCLIC CITRUL PEPTIDE ANTIBODY, IGG Routine 01/18/2025 11:26 AM CDT DIFFERENTIAL AUTO Routine 01/18/2025 11:26 AM CDT TB TEST, QUANTIFERON GOLD Routine 01/18/2025 11:26 AM CDT RHEUMATOID FACTOR Routine 01/18/2025 11:26 AM CDT CRP (ACUTE PHASE) Routine 01/18/2025 11:26 AM CDT ERYTHROCYTE SEDIMENTATION RATE Routine 01/18/2025 11:26 AM CDT CREATININE Routine 01/18/2025 11:26 AM CDT HEPATIC FUNCTION PANEL Routine 01/18/2025 11:26 AM CDT CBC WITH AUTO DIFFERENTIAL Routine 01/18/2025 11:26 AM CDT SCREENING MAMMOGRAM BILATERAL W LEDA Schedule Routine, Read Routine (OP Routine) 12/24/2021 2:23 PM CDT Screening mammogram, encounter for COLONOSCOPY 08/21/2018 3:07 PM CATH LAB NURSE from Last 3 Months or Most Recently Relevant to Health Maintenance Results * XR Spine Cervical W Flexion And Extension 4 or 5 Views (01/18/2025 12:53 PM CDT) Anatomical Region Laterality Modality Spine N/A Digital Radiogra phy 01/18/2025 2:10 PM CDT Impressions 01/18/2025 2:10 PM CDT FINDINGS AND IMPRESSION: Lateral, extension, flexion, frontal views of the cervical spine are submitted as 4 total images for interpretation. Normal craniocervical junction. Normal subaxial alignment. No fracture or compression deformity. No osseous spinal canal stenosis. Moderate C5-6 and C6-7 degenerative intervertebral disc space narrowing with small anterior and posterior endplate osteophytes. 2 mm C4 on C5 anterior subluxation during flexion. This reduces during extension and is not present in neutral position. Mild left C4-5 and moderate right greater than left C5-C6 uncovertebral hypertrophy. Right C5-6 neural foraminal stenosis cannot be excluded. Lung apices are unremarkable. Electronically signed by: Deny Simeon MD Narrative 01/18/2025 2:10 PM CDT EXAMINATION: XR SPINE CERVICAL W FLEXION AND EXTENSION 4 OR 5 VIEWS HISTORY: M06.4 DATE: 01/18/2025 at 12:47 PM COMPARISON:None Procedure Note Deny Simeon MD PhD - 01/18/2025 EXAMINATION: XR SPINE CERVICAL W FLEXION AND EXTENSION 4 OR 5 VIEWS HISTORY: M06.4 DATE: 01/18/2025 at 12:47 PM COMPARISON:None IMPRESSION: FINDINGS AND IMPRESSION: Lateral, extension, flexion, frontal views of the cervical spine are submitted as 4 total images for interpretation. Normal craniocervical junction. Normal subaxial alignment. No fracture or compression deformity. No osseous spinal canal stenosis. Moderate C5-6 and C6-7 degenerative intervertebral disc space narrowing with small anterior and posterior endplate osteophytes. 2 mm C4 on C5 anterior subluxation during flexion. This reduces during extension and is not present in neutral position. Mild left C4-5 and moderate right greater than left C5-C6 uncovertebral hypertrophy. Right C5-6 neural foraminal stenosis cannot be excluded. Lung apices are unremarkable. Electronically signed by: Deny Simeon MD Cristi Salinas MD IMG XR PROCEDURES Final Result * eGFR (01/18/2025 11:26 AM CDT) eGFR >90 >=60 mL/min/1. 73 m2 Comment: Interpretive Data Reference Interval Normal >/= 90 mL/min/1.73m2 Mildly decreased* 60 - 89 mL/min/1.73m2 Mildly to moderately decreased 45 - 59 mL/min/1.73m2 Moderately to severely decreased 30 - 44 mL/min/1.73m2 Severely decreased 15 - 29 mL/min/1.73m2 Kidney Failure < 15 mL/min/1.73m2 *Relative to young adult level Estimated glomerular [...] interpretive data was last reviewed 2021. Blood 01/18/2025 11:2 6 AM CDT 01/18/2025 5:31 PM CDT us Cristi Salinas MD LAB BLOOD ORDERABLES Fin al Result [facility] [address] Department [place] [address] * Differential, auto (01/18/2025 11:26 AM CDT) Neutrophil abs 2.29 1.50 - 6.50 K/cumm Imm gran abs 0.01 0.00 - 0.10 K/cumm [facility] Lymphocyte abs 1.55 0.80 - 3.30 K/cumm [facility] Monocyte abs 0.33 0.20 - 0.80 K/cumm [facility] Eosinophil abs 0.15 0.00 - 0.50 K/cumm [facility] Basophil abs 0.03 0.00 - 0.10 K/cumm [facility] Neutrophil pct 52.5 % [facility] Comment: Interpretive Data Percent cell count reference ranges are not reported, since discordance with absolute values may lead to misinterpretation of CBC data. Current Interpretive Data was last revised on 2018. Imm gran pct 0.2 % [facility] Comment: Interpretive Data Percent cell count reference ranges are not reported, since discordance with absolute values may lead to misinterpretation of CBC data. Current Interpretive Data was last revised on 2018. Lymphocyte pct 35.6 % [facility] Comment: Interpretive Data Percent cell count reference ranges are not reported, since discordance with absolute values may lead to misinterpretation of CBC data. Current Interpretive Data was last revised on 2018. Monocyte pct 7.6 % [facility] Comment: Interpretive Data Percent cell count reference ranges are not reported, since discordance with absolute values may lead to misinterpretation of CBC data. Current Interpretive Data was last revised on 2018. Eosinophil pct 3.4 % [facility] Comment: Interpretive Data Percent cell count reference ranges are not reported, since discordance with absolute values may lead to misinterpretation of CBC data. Current Interpretive Data was last revised on 2018. Basophil pct 0.7 % [facility] Comment: Interpretive Data Percent cell count reference ranges are not reported, since discordance with absolute values may lead to misinterpretation of CBC data. Current Interpretive Data was last revised on 2018. Blood 01/18/2025 11:2 6 AM CDT 01/18/2025 3:51 PM CDT Cristi Salinas MD LAB BLOOD ORDERABLES Fin al Result [facility] [address] Department [place] [address] * TB test, quantiferon gold (01/18/2025 11:26 AM CDT) [facility] Quantiferon TB Gold Negative Negative [place] [facility] Comment: No interferon-gamma response to M. tuberculosis antigens was detected. Latent infection with M. tuberculosis is unlikely. A single negative result does not exclude infection with M. tuberculosis. In patients at high risk for M.tuberculosis infection, a second test should be considered in accordance with the 2017 ATS/IDSA/CDC Clinical Practice Guidelines for Diagnosis of Tuberculosis in Adults and Children [Lewinsohn ORLY et. al. Clin. Infect. Dis. 2017;64(2):111-115]. The reference range for the 'TB1 Ag minus Nil Result' and 'TB2 Ag minus Nil Result' is an Interferon-gamma level <0.35 IU/mL. TB-Nil 0.01 IUnits/mL [facility] TB2-Nil 0.00 IUnits/mL [facility] Mitogen-Nil 9.98 IUnits/mL [facility] NIL 0.02 IUnits/mL [facility] Comment: Test Performed by: [facility] [address] [place] [address] Rerolling Machine Operator: Denis Hawkins Ph.D.; CLIA# [id number] Blood 01/18/2025 11:2 6 AM CDT 01/18/2025 4:35 PM CDT us Cristi Salinas MD LAB BLOOD ORDERABLES Fin al Result [facility] [address] Department [place] [address] [facility] * CBC with auto differential (01/18/2025 11:26 AM CDT) WBC 4.36 3.80 - 9.90 K/cumm Hgb 14.8 11.9 - 15.5 g/dL [facility] Hct 44.5 35.6 - 45.5 % [facility] Plt 197 150 - 400 K/cumm [facility] MPV 11.7 9.1 - 12.3 fL [facility] RBC 4.85 3.90 - 5.20 M/cumm [facility] MCV 91.8 81.3 - 96.4 fL [facility] MCH 30.5 27.1 - 33.3 pg [facility] MCHC 33.3 32.3 - 35.7 g/dL [facility] RDW CV 12.5 11.1 - 14.9 % [facility] RDW SD 41.9 35.7 - 48.1 fL [facility] NRBC abs 0.00 0.00 - 0.01 K/cumm [facility] Blood 01/18/2025 11:2 6 AM CDT 01/18/2025 3:51 PM CDT us Cristi Salinas MD LAB BLOOD ORDERABLES Fin al Result Performing Organization Address [facility] Co de Phone Number [facility] [address] [facility] [place] [address] * Cyclic citrul peptide antibody, IgG (01/18/2025 11:26 AM CDT) Pathologist [facility] CCP Ab <0.5 <=2.9 units/mL Comment: Interpretive data Negative: <3 units/mL Positive: > or equal to 3 units/mL Current interpretive data was last revised on 2017. Testing performed by: [facility], [address] [place] [address]., [id number] Blood 01/18/2025 11:2 6 AM CDT 01/18/2025 7:05 PM CDT Cristi Salinas MD LAB BLOOD ORDERABLES Fin al Result Performing Organization Address [facility] Co de Phone Number [facility] [address] [place] [address] * Erythrocyte sedimentation rate (01/18/2025 11:26 AM CDT) [facility] Erythrocyte sedimentation rate 6 1 - 30 mm/hr Blood 01/18/2025 11:2 6 AM CDT 01/18/2025 3:51 PM CDT Cristi Salinas MD LAB BLOOD ORDERABLES Fin al Result Performing Organization Address City/[facility] Co de Phone Number [facility] [address] [place] [address] * Rheumatoid factor (01/18/2025 11:26 AM CDT) Pathologist [facility] Rheumatoid factor, quant <10 <=15 IUnits/mL Blood 01/18/2025 11:2 6 AM CDT 01/18/2025 3:51 PM CDT Cristi Salinas MD LAB BLOOD ORDERABLES Fin al Result Performing Organization Address [facility] Co de Phone Number [facility] [address] [facility] [place] [address] * CRP (acute phase) (01/18/2025 11:26 AM CDT) CRP <3.0 <=10.0 mg/L Blood 01/18/2025 11:2 6 AM CDT 01/18/2025 3:51 PM CDT us Cristi Salinas MD LAB BLOOD ORDERABLES Fin al Result Performing Organization Address [facility] de Phone Number [facility] [address] [facility] [place] [address] * Creatinine (01/18/2025 11:26 AM CDT) Creatinine 0.72 0.60 - 1.10 mg/dL Blood 01/18/2025 11:2 6 AM CDT 01/18/2025 3:51 PM CDT Cristi Salinas MD LAB BLOOD ORDERABLES Fin al Result Performing Organization Address [facility] de Phone Number [facility] [address] [facility] [place] [address] * Hepatic function panel (01/18/2025 11:26 AM CDT) Bilirubin, total 0.5 0.1 - 1.2 mg/dL Bilirubin, direct <0.2 0.1 - 0.3 mg/dL [facility] Protein, pl 6.7 6.5 - 8.5 g/dL [facility] Albumin 4.6 3.5 - 5.0 g/dL [facility] Alk phos 86 40 - 130 Units/L [facility] ALT 24 7 - 45 Units/L [facility] AST [id number]|2025-02-25 23:48:00|2025-02-25 23:48:00|ED_ITS|SILVERIO|Health Information Management|[id number]|"HPI - Female Genitourinary General Chief complaint: Urogenital-Female Stated complaint: Back pain, pain with urination -UTI 1.5 wks ago Time Seen by Provider: 02/25/25 22:03 Source: patient Mode of arrival: ambulatory Limitations: no limitations History of Present Illness HPI Narrative: Patient is a 54-year-old female, with past medical history of early dementia per records, psychiatric illness, who presents to the ED with c/o right flank pain and urinary complaints. Patient reports history of frequent UTIs. at bedside assisted in providing information. Reports she has been having urinary frequency, urgency, dysuria, right flank pain intermittently for the past 2 weeks, worsening. Patient has not taken anything for pain today. Reports intermittent nausea, denies vomiting. Denies fevers. Denies hematuria. Denies history of kidney stones. Related Data Home Medications Medication Instructions Recorded Confirmed Last Taken Type epinephrine 0.3 mg/0.3 mL subcut 01/07/24 01/07/24 Unknown History injection, auto-injector ergocalciferol (vitamin D2) 1,250 PO 10/21/24 Unknown History mcg (50,000 unit) capsule leflunomide 20 mg tablet mg PO 10/21/24 Unknown History Allergies Allergy/AdvReac Type Severity Reaction Status Date / Time ibandronate sodium Allergy Severe esophagitis Verified 10/21/24 13:22 prochlorperazine Allergy Severe Anxiety Verified 10/21/24 13:22 doxycycline Allergy Intermediate mus Verified 10/21/24 13:22 ciprofloxacin Allergy Mild MUSCLE Verified 10/21/24 13:22 ACHES iodine Allergy Mild Unknown Verified 10/21/24 13:22 morphine Allergy Mild N/V Verified 10/21/24 13:22 Quinolones Allergy Mild Unknown Verified 10/21/24 13:22 tetracycline Allergy Mild MUSCLE ACHS Verified 10/21/24 13:22 promethazine Allergy Unknown Unknown Verified 10/21/24 13:22 sulfamethoxazole Allergy Unknown Unknown Verified 10/21/24 13:22 trimethoprim Allergy Unknown Unknown Verified 10/21/24 13:22 Contrast Media Allergy Severe IVP DYE Uncoded 10/21/24 13:22 CAUSES RESPIRATORY DISTRESS Review of Systems 2 Review of Systems: All systems reviewed & are unremarkable except as noted in HPI. 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 Raynaud's syndrome Selective deficiency of immunoglobulin a [iga] Unspecified vitamin D deficiency Surgical History Surgical History Hx of tonsillectomy H/O sinus surgery History of bladder surgery History of hysterectomy Hx of cholecystectomy H/O rectal sphincterotomy History of ERCP x2 Family History Family History Mother Family history of osteoporosis Hypertension Family history of arthritis Depression Family history of psoriasis Grandparent Family history of osteoporosis Hypertension Family history of malignant neoplasm Family history of chronic obstructive pulmonary disease Family history of Alzheimer's disease Family history of glaucoma Cerebrovascular accident Family history of malignant neoplasm of breast Family history of lymphoma Family history of malignant neoplasm of ovary Father Hypertension Asthma Other Family history of migraine headaches Social History Social History Smoking status: Never smoker Alcohol intake: never Substance use: never Lack of Transportation: No Lack of Food: Never True Current Housing: I Have Housing Concerned About Future Housing: No Difficulty Paying Gas/Electric Bills: No Difficulty Paying for Meds: No Currently Unemployed: No Gender identity (if verbalized by the patient): Female Exam 2 Narrative: GENERAL: Well appearing, well-nourished, non-toxic, in no acute distress. HEAD: Normocephalic, atraumatic. RESPIRATORY: Airway patent, respirations nonlabored. Clear to auscultation bilaterally, no rales, rhonchi, wheezing. CARDIOVASCULAR: Regular rate and rhythm without murmurs, rubs, or gallops. ABDOMINAL: Soft, mild tenderness in suprapubic region, right lower quadrant, nondistended. Normoactive BS. Positive CVA tenderness on right. MUSCULOSKELETAL: Moves all extremities. No gross deformities. SKIN: Warm, dry, normal color. NEURO: A&O X3. Speech clear. PSYCHIATRIC: Flat affect. Somewhat anxious. Normal interaction. Course Vital Signs Vital signs: Vital Signs Temperature 98.3 F 02/25/25 20:27 Pulse Rate 72 02/25/25 20:27 Respiratory Rate 16 02/25/25 20:27 Blood Pressure 139/74 02/25/25 20:27 Pulse Oximetry 99 02/25/25 20:27 Oxygen Delivery Room Air 02/25/25 20:27 Temperature 98.3 F 02/25/25 20:27 Pulse Rate 72 02/25/25 20:27 Respiratory Rate 16 02/25/25 20:27 Blood Pressure 139/74 02/25/25 20:27 Pulse Oximetry 99 02/25/25 20:27 Oxygen Delivery Room Air 02/25/25 20:27 MDM - Female Genitourinary MDM Narrative Medical decision making narrative: Patient presented to ED with urinary complaints, right flank pain. History of frequent UTIs. Vital signs stable upon arrival. Patient in no acute distress. Laboratory studies are fairly unremarkable. No leukocytosis or anemia. CMP with stable electrolytes, stable kidney function. UA does appear consistent with infection, 2+ leuk esterase, greater than 100 WBC. Sent for culture. Will treat. No previous positive cultures to compare to. Given dose of Rocephin in the ED. CT scan of abdomen/pelvis was obtained and without evidence of ureterolithiasis, no other significant findings. Patient updated on lab and imaging findings. She has remained stable throughout ED stay. Will discharge on Keflex. Will refer to Urology given history of frequent UTIs. She does report she has seen Dr. Sarah in the past. Discussed strict return precautions. Patient voiced understanding. Feels comfortable going home. Discharged in stable condition. Medical Records Attestation: I reviewed the patient's medical records. Lab Data Attestation: I reviewed the patient's lab results. 02/25/25 21:52 02/25/25 21:52 Labs: Lab Results 02/25/25 02/25/25 Range/Units 21:52 22:07 WBC 5.0 (4.5-10.0) K/mm3 RBC 4.65 (4.2-5.4) M/mm3 Hgb 14.1 (12.0-15.0) g/dL Hct 42.1 (37.0-47.0) % MCV 90.5 (80-100) fl MCH 30.3 (26-34) pg MCHC 33.5 (32-36) g/dl RDW 12.4 (11.5-14.5) % Plt Count 171 (150-375) k/mm3 MPV 11.4 H (7.4-10.4) fl Immature Gran % (Auto) 0.2 (0-0.5) % Neut % (Auto) 43.7 L (45.5-73.1) % Lymph % (Auto) 42.5 (18.3-44.2) % Caroline % (Auto) 8.4 (2.6-8.5) % Eos % (Auto) 4.6 H (0-4.4) % Baso % (Auto) 0.6 (0.2-1.2) % Lymph # (Auto) 2.13 (0.9-3.2) K/mm3 Caroline # (Auto) 0.4 (0.1-0.6) K/mm3 Eos # (Auto) 0.2 (0-0.3) K/mm3 Baso # (Auto) 0.0 (0.0-0.1) K/mm3 Abs Immat Gran (auto) 0.01 (0.00-0.031) K/mm3 Absolute Neuts (auto) 2.2 (1.3-6.7) K/mm3 Absolute Nucleated RBC 0.000 (0.0-0.012) K/mm3 Nucleated RBC % 0.0 (0.0-0.2) % Sodium 138 (137-145) mmol/L Potassium 3.7 (3.4-5.0) mmol/L Chloride 105 (98-107) mmol/L Carbon Dioxide 27 (22-30) mmol/L Anion Gap 6 (4-12) mmol/L BUN 15 (7-17) mg/dL Creatinine 0.65 L (0.7-1.0) mg/dL Estim Creat Clear Calc 83 ml/min Estimated GFR > 60 (59 - ) Glucose 90 (65-110) mg/dL Calcium 8.9 (8.4-10.2) mg/dL Total Bilirubin 0.8 (0.2-1.3) mg/dL AST 36 (14-36) U/L ALT 26 (6-35) U/L Alkaline Phosphatase 109 (38-126) U/L Total Protein 7.0 (6.3-8.2) g/dL Albumin 4.3 (3.5-5.1) g/dL Lipase 71 (23-300) U/L Urine Color Yellow (Yellow) Urine Appearance Cloudy H (Clear) Urine pH 6.0 (5.0-9.0) Ur Specific [place] 1.029 (1.001-1.035) Urine Protein Trace (Negative) mg/dL Urine Glucose (UA) Negative (Negative) mg/dL Urine Ketones Trace H (Negative) mg/dL Ur Blood (Man) Trace (Negative) Urine Nitrate Negative (Negative) Urine Bilirubin Negative (Negative) Urine Urobilinogen 1.0 (<2.0) mg/dL Leukocyte Esterase Rfl 2+ H (Negative) ANABEL/UL Urine RBC 0-2 (0-2) /hpf Urine WBC >100 H (0-3) /hpf Ur Squamous Epith Cells None seen (Few) /hpf Urine Bacteria None seen /hpf Urine Casts 0-2 Imaging Data Attestation: I personally reviewed and interpreted this imaging study as follows: Radiologist's impression: ITS Impressions Abdomen/Pelvis CT 02/26/25 00:49 IMPRESSION: 1. No evidence of appendicitis, diverticulitis or intestinal obstruction. 2. No renal stones seen. 3. Constipation. Discharge Plan Discharge Clinical Impression: Right flank pain UTI (urinary tract infection) Qualifiers: Urinary tract infection type: acute cystitis Hematuria presence: without hematuria Qualified Code(s): N30.00 - Acute cystitis without hematuria Patient Disposition: Home Condition: Stable Instructions: Antibiotic Form, Urinary Tract Infection in Women (ED), Flank Pain (ED) Additional Instructions: Take antibiotics as prescribed for urinary tract infection. Stay well hydrated. Continue Tylenol and ibuprofen as needed for pain. Follow-up with urology for further evaluation of frequent UTIs. Return to the ED if you experience worsening or severe pain, difficulty urinating, blood in urine, unable to keep down food or drink, persistent fevers, or any other symptoms of concern. Patient Language: Telugu Prescriptions: New cephalexin 500 mg capsule 500 mg PO Q6H 7 Days Qty: 28 0RF No Action epinephrine 0.3 mg/0.3 mL auto-injector subcut fluoxetine [Prozac] 20 mg capsule 20 mg PO DAILY Qty: 90 0RF ergocalciferol (vitamin D2) 1,250 mcg (50,000 unit) capsule PO leflunomide 20 mg tablet PO cefpodoxime 200 mg tablet 200 mg PO BID Qty: 20 0RF Rx Instructions: must administer with a meal/food Follow-up/Referrals: Sulaiman Hodge MD [Physician] - (UROLOGY) Jonathan Amado MD [Primary Care Provider] - Time of Disposition: 01:40 "
--- OUTSIDE RECORDS SUMMARY | 2025-02-25 20:20 | XMS_ITS ---
Author Organization [facility] johana Address [address] [place] [address] Care Team Providers Care Wafer Mounter Name Role Phone Jonathan Amado MD Primary Care Provider Cristi Powers Unavailable [phone] REASON FOR VISIT Needs call back from office Encounters Encounter Location Date Provider Diagnosis [facility] [address] [place] [address] 02/04/2025 Cristi Foss Plan Of Treatment Next Appt Details Provider Name:Cristi giang, 05/05/2025 10:00:00 AM, [address], [place], [address], Progress Notes * Pina REYNAGA KDOB:06/1970 (54 yo F)Acc No.[id number]:02/04/2025 Patient: Rajendra Pina QUIGLEY :1970 A ge:54 Y S ex:Female Address:[address] [place] [address], [address] * true * Date: Generated for Printi ng/Faxing/eTransmitting on: 0 02/25/2025 08:20 PM CDT
--- OUTSIDE RECORDS SUMMARY | 2025-02-25 20:20 | XMS_ITS ---
Author Organization [facility] johana Address [address] [facility] [address] [place] [address] Care Team Providers Care Binder Cutter Name Role Phone Jonathan Amado MD Primary Care Provider Cristi Powers Unavailable [phone] Allergies Allergen (clinical drug ingredient) Drug/Non Drug Allergy documented on EMR Reaction Allergy Type Onset Date Status ciprofloxacin Cipro Unknown Drug Allergy 07/16/2021 Ac tive Ciprofloxacin Unknown Drug Allergy 07/16/2021 Ac tive Results Component Value Reference Range Notes Sed Rate Reviewed date:01/19/2025 10:41:39 AM Interpretation: Performing Lab:[facility] , [facility]. [facility] [address] Notes/Report: ESR 6 1-30 mm/hr Rheumatoid Factor Reviewed date:01/18/2025 06:14:25 PM Interpretation: Performing Lab:[facility] , [facility]. [facility] [address] Notes/Report: RF, Popeye <10 <=15 IUnits/mL QTB Gold Reviewed date:01/21/2025 06:46:22 AM Interpretation: Performing Lab:[facility] , [facility]. [facility] [address] Notes/Report: QuantiFERON TB Gold Negative Negative No interferon-gamma response to M. tuberculosis antigens was detected. Latent infection with M. tuberculosis is unlikely. A single negative result does not exclude infection with M. tuberculosis. In patients at high risk for M.tuberculosis infection, a second test should be considered in accordance with the 2017 ATS/IDSA/CDC Clinical Practice Guidelines for Diagnosis of Tuberculosis in Adults and Children [Froilan VILLALBA et. al. Clin. Infect. Dis. 2017;64(2):111-115]. The reference range for the 'TB1 Ag minus Nil Result' and 'TB2 Ag minus Nil Result' is an Interferon-gamma level <0.35 IU/mL. TB-Nil 0.01 TB2-Nil 0.00 Mitogen-Nil 9.98 NIL 0.02 Test Performed by: [facility] [address] [place] [address] Mat Maker: Denis Hawkins Ph.D.; CLIA# [id number] Hep Func Panel Reviewed date:01/18/2025 06:14:30 PM Interpretation: Performing Lab:[facility] , [address] [place] [address]. [facility] [address] Notes/Report: Total Bilirubin 0.5 0.1-1.2 mg/dL Bilirubin, Direct <0.2 0.1-0.3 mg/dL Plasma Total Protein 6.7 6.5-8.5 g/dL Albumin 4.6 3.5-5.0 g/dL Alkaline Phosphatase 86 40-130 Units/L ALT 24 7-45 Units/L AST 23 10-45 Units/L Creatinine Reviewed date:01/18/2025 06:15:30 PM Interpretation: Performing Lab:[facility] , [address] [place] [address]. [facility] [address] Notes/Report: Creatinine 0.72 0.60-1.10 mg/dL CBC w auto diff Reviewed date:01/18/2025 06:14:35 PM Interpretation: Performing Lab:[facility] , [address] [place] [address]. [facility] [address] Notes/Report: WBC 4.36 3.80-9.90 K/cumm Hgb 14.8 11.9-15.5 g/dL Hct 44.5 35.6-45.5 % Platelet Ct 197 150-400 K/cumm MPV 11.7 9.1-12.3 fL RBC 4.85 3.90-5.20 M/cumm MCV 91.8 81.3-96.4 fL MCH 30.5 27.1-33.3 pg MCHC 33.3 32.3-35.7 g/dL RDW CV 12.5 11.1-14.9 % RDW SD 41.9 35.7-48.1 fL NRBC Abs Auto 0.00 0.00-0.01 K/cumm C Reactive Protein Reviewed date:01/18/2025 06:14:39 PM Interpretation: Performing Lab:[facility] , [address] [facility]. [facility] [address] Notes/Report: C-Reactive Protein <3.0 <=10.0 mg/L Anti-CCP (Cyclic Citrullinat ed Peptide Ab) Reviewed date:01/19/2025 01:00:16 PM Interpretation: Performing Lab:[facility] , [address] [facility]. [facility] [address] Notes/Report: CCP Ab <0.5 <=2.9 units/mL Interpretive data Negative: <3 units/mL Positive: > or equal to 3 units/mL Current interpretive data was last revised on 2017. REASON FOR VISIT follow up Medications Medication SIG (Take, Route, Frequency, Duration) Notes Start Date End Date Status ZyrTEC Allergy 10 MG take 1 tablet (10 m g) by oral route once daily Oral 1 Active Nitrofurantoin Monohyd Macro 100 MG Oral for 7 Days Active Problems Problem Type SNOMED Code ICD Code Onset Dates Problem Status W/U Status Risk Notes Problem 90377697 Neck pain (M54.2) Active confirmed Vital Signs Temperature 98.0 degrees Fahrenheit 01/19/20 25 Blood pressure systolic 124 mm Hg 01/19/20 25 Blood pressure diastolic 80 mm Hg 025 Heart Rate 95 /min 01/18/2025 Height 63 in 01/18/2025 Weight 165 lbs 01/18/2025 BMI 29.23 kg/m2 01/18/2025 Oximetry 99 % 01/18/2025 Height-cm 160.02 cm 01/18/2025 Weight-kg 74.84 kg 01/18/2025 Encounters Encounter Location Date Provider Diagnosis [facility] [address] [facility] [address] [place] [address] 01/18/2025 Cristi Foss Inflammatory polyarthropathy M06.4 ; Pain in unspecified joint M25.50 ; Anesthesia of skin R20.0 ; Other fci (current) drug therapy Z79.899 and Neck pain M54.2 Assessments Encounter Date Diagnosis (ICD Code) Assessment Notes Treatment Notes Treatment Clinical Notes Section Notes 01/18/2025 Inflammatory polyarthropathy (ICD-10 - M06.4) 01/18/2025 Pain in unspecified joint (ICD-10 - M25.50) 01/18/2025 Anesthesia of skin (ICD-10 - R20.0) 01/18/2025 Other terminologist (current) drug therapy (ICD-10 - Z79.899) 01/18/2025 Neck pain (ICD-10 - M54.2) Plan Of Treatment Pending Test Test Name Order Date X ray : Spines, cervical 4 views 025 Next Appt Details Follow Up: 2 Weeks, Reason: Provider Name:Cristi giang, 05/05/2025 10:00:00 AM, [address], [place], [address], Progress Notes * Pina REYNAGA KDOB:06/1970 (54 yo F)Acc No.[id number]:01/18/2025 Progress Notes Patient: Pina WALKER Provider: Edd Foss MD :1970 A ge:54 Y S ex:Female Date:01/18/2025 Address:[address] [place], [place] [id number] Pcp:Jonathan Amado MD Subjective: * Chief Complaints: * F ollow up * HPI: A dvance Care Planning: Has acute joint swelling. Has significant AM stiffness, gelling. No significant rash. No significant bruises. No cough. No SOB. No CP. No F/C/S. No major GI upset. Bowels working. Energy low. Sleep OK. Tolerates meds. Wt. stable. Appetite stable.Pain and stiffness at fingers.No real AM stiffness. Overdue for eye exams. Some pain at knees. GI upset with NSAIDS.Hands are flared up. Arms are flared up. No neck pain. Has LBP. * ROS: E nergy OK. Sleep OK . 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 * Medications: T akingZyrTEC Allergy 10 MG Tablet take 1 tablet (10 mg) by oral route once daily Oral 1 Nitrofurantoin Monohyd Macro 100 MG Capsule Oral Medication List reviewed and reconciled with the patientTaking ZyrTEC Allergy 10 MG Tablet take 1 tablet (10 mg) by oral route once daily Oral 1 Taking Nitrofurantoin Monohyd Macro 100 MG Capsule Oral Medication List reviewed and reconciled with the patient * Allergies: C ipro: Allergy - Onset Date 07/16/2021iprofloxacin: Allergy - Onset Date 07/16/2021 Objective: * Vitals: B P:124/80mm Hg, HR:95/min, Temp:98.0F, Oxygen sat %:99%, Wt:165lbs, Wt- k.84kg, Ht:63in, Ht-cm:160.02cm, BMI:29.23Index, Body Surface Area:1.82. * Examination: G eneral Examination: P hysical [...] :Src Problem: Numbness 4 . O ther terminologist (current) drug therapy - Z79.899 5 . N oscar pain - M54.2 Plan: * Treatment: Value Reference Range C CP Ab <0.5 <=2.9 - units/mL * This lab was reviewed by Stuart Foss on 01/19/2025 at 13:00 PM CDT LAB: QTB Gold LAB: CBC w auto diff LAB: Hep Func Panel LAB: Rheumatoid Factor LAB: C Reactive Protein LAB: Sed Rate* Value Reference Range E SR 6 1-30 - mm/hr * This lab was reviewed by Stuart Foss on 01/19/2025 at 10:41 AM CDT LAB: Creatinine Imaging: X ray : Spines, cervical 4 views* 2. Pain in unspecified joint LAB: Anti-CCP (Cyclic Citrullinated Peptide Ab)* Value Reference Range C CP Ab <0.5 <=2.9 - units/mL * This lab was reviewed by Stuart Foss on 01/19/2025 at 13:00 PM CDT LAB: Hep Func Panel LAB: Rheumatoid Factor LAB: CBC w auto diff LAB: Sed Rate* Value Reference Range E SR 6 1-30 - mm/hr * This lab was reviewed by Stuart Foss on 01/19/2025 at 10:41 AM CDT LAB: Creatinine LAB: QTB Gold LAB: C Reactive Protein3. Anesthesia of skin LAB: QTB Gold4. Other fci (current) drug therapy LAB: Rheumatoid Factor LAB: Anti-CCP (Cyclic Citrullinated Peptide Ab)* Value Reference Range C CP Ab <0.5 <=2.9 - units/mL * This lab was reviewed by Stuart Foss on 01/19/2025 at 13:00 PM CDT LAB: Creatinine LAB: QTB Gold LAB: CBC w auto diff LAB: Sed Rate* Value Reference Range E SR 6 1-30 - mm/hr * This lab was reviewed by Stuart Foss on 01/19/2025 at 10:41 AM CDT LAB: C Reactive Protein LAB: Hep Func Panel5. Neck pain LAB: CBC w auto diff LAB: Hep Func Panel LAB: C Reactive Protein LAB: QTB Gold LAB: Anti-CCP (Cyclic Citrullinated Peptide Ab)* Value Reference Range C CP Ab <0.5 <=2.9 - units/mL * This lab was reviewed by Stuart Foss on 01/19/2025 at 13:00 PM CDT LAB: Creatinine LAB: Rheumatoid Factor LAB: Sed Rate* Value Reference Range E SR 6 1-30 - mm/hr * This lab was reviewed by Stuart Foss on 01/19/2025 at 10:41 AM CDT Imaging: X ray : Spines, cervical 4 views* * Procedure Codes: G 2211 Complex e/m visit add on * Follow Up: 2 Weeks * Billing Information: * Visit Code: 03368 Office Visit, Est Pt., Level 4. * Procedure Codes: G2211 Complex e/m visit add on. * Sign off status: Completed true * Provider: Edd Foss MD Date: 0 01/18/2025 Generated for Yecenia de paz/Sherry/eTransmitting on: 0 02/25/2025 08:20 PM CDT History and Physical Notes * [...]
--- OUTSIDE RECORDS SUMMARY | 2025-02-25 20:20 | XMS_ITS | Clinical Summary ---
Author Organization [facility] Address [address] [place] [phone] Phone Care Team Providers Care Modeling Instructor Name Role Phone Jonathan Amado MD Primary Care Provider [phone] Allergies Active Allergy Reactions Criticality Noted Date Comments Ciprofloxacin Muscle Pain 05/06/2013 Doxycycline Unknown 05/06/2013 Iodinated Contrast Media Unknown 05/11/2013 Sneezing, shortness of breath, body aches Morphine Nausea and Vomiting 05/06/2013 Prochlorperazine Anxiety 05/06/2013 Unclassified Drug Cough 05/06/2013 Medications fexofenadine (JOHNATHAN) 180 mg Oral tablet Take 180 mg by mouth daily. Active cholecalciferol, vitamin D3, 50,000 unit Oral Cap Take 1 Cap by mouth daily. Active RABEprazole (ACIPHEX) 20 mg Oral TbEC Take 20 mg by mouth daily. Active ASPIRIN/ACETAMIN OPHEN/CAFFEINE (EXCEDRIN MIGRAINE ORAL) Take by mouth. 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 Gender Identity Not on file Sexual Orientation Not on file Last Filed Vital Signs Vital Sign Reading Time Taken Comments Blood Pressure 99/73 05/11/2013 11:53 AM CDT Pulse 68 05/11/2013 11:53 AM CDT Temperature 36.2 C (97.1 F) 05/11/2013 11:28 AM CDT Respiratory Rate 18 05/11/2013 11:5 [...] (1 of 3 - 19+ 3-dose series) 06/1990 HPV/Cotest (21-29) 1992 CERVICAL CANCER SCREENING 2001 HPV/Cotest (30-65) 2001 PAP SMEAR 2001 BREAST CANCER SCREENING 2011 COLORECTAL SCREENING 2016 Colorectal Cancer Screening 2016 FIT-DNA Q 3 years 2016 FIT/FOBT Q 1 year 2016 Flex Sig/CT Colonography Q 5 years 2016 ZOSTER VACCINE (1 of 2) 2021 INFLUENZA VACCINE (#1) 2024 Insurance [facility] Address: [facility] [id number] [place] [address] Advance Directives For more information, please contact: [phone] * Full Code (Latest Code Status on File) Date Activated Date Inactivated Comments 05/11/2013 9:56 AM 05/11/2013 2:25 PM Care Teams Modeling Instructor Relationship Specialty Start Date End Date Jonathan Amado MD PCP - General Family Practice 04/16/12
--- OUTSIDE RECORDS SUMMARY | 2025-02-25 20:20 | XMS_ITS | Referral Summary ---
Author Organization [facility] Address [address] [place] [address] Care Team Providers Care Grounds Cleaner Name Role Phone Jonathan Amado MD Primary Care Provider [phone] Jim Shelby MD Unavailable [phone] Encounters Date Type Department Care Team Description 02/23/2025 3:00 PM CDT Infusion [facility] Injection Therapy [address] [place] [address] 5th [place] [address] [place] [phone] Postmenopausal osteoporosis (Primary Dx) 01/26/2025 1:45 PM CDT Infusion [facility] Injection Therapy [address] [place] [address] 5th [place] [address] [place] [address] Postmenopausal osteoporosis (Primary Dx) 01/18/2025 3:27 PM CDT - 01/18/2025 11:59 PM CDT Hospital Encounter [address] [place] [phone] Discharge Disposition: Discharge to home or self care 01/18/2025 12:25 PM CDT - 01/18/2025 11:59 PM CDT Hospital Encounter [facility] - Imaging [address] [place] [phone] Inflammatory polyarthropathy (HCC) Discharge Disposition: Discharge to home or self care 01/13/2025 Orders Only [facility] [address] [facility] 6th [place] [address] [place] [address] Daniel Ellis MD Other amnesia (Primary Dx); Aphasia; Alzheimer's disease with early onset (HCC) 01/07/2025 Documentation [facility] [address] [facility] First Floor [address] [place] [address] David Holland, YINA from Last 3 Months Allergies Active Allergy [...] 06/24/2013 Sulfasalazine Rash Medium 04/24/2012 Body aches Mereta Pollen-Short Ragweed Unknown 01/28/2023 ragweed - allergy [...] (04/21/2019): Added automatically from request for surgery [id number] Elevated CK 03/01/2019 Urticaria 03/01/2019 Memory loss [...] normal humoral immune responses. 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 Gender Identity Not on file Sexual Orientation Not on file Last Filed Vital Signs Vital Sign Reading Time Taken Comments Blood Pressure 133/90 10/26/2024 9:59 AM RIDES ATTENDANT Pulse 59 10/26/2024 9:59 AM RIDES ATTENDANT Temperature 36.7 C (98 F) 07/08/2019 4:21 PM CDT Respiratory Rate 16 06/16/2019 8:30 PM CDT Oxygen Saturation 95% 06/16/2019 8:30 PM CDT Inhaled Oxygen Concentration - - Weight 73.5 kg (162 lb) 10/26/2024 9:59 AM RIDES ATTENDANT Height 159.3 cm (5' 2.7 ) 10/26/2024 9:59 AM RIDES ATTENDANT Body Mass Index 28.97 10/26/2024 9:59 AM RIDES ATTENDANT Plan of Treatment Not on file Medical Devices Explanted Type Area Maintenance Technician Device Identifier Shelf Expiration Date Model / Serial / Lot [employer] 6571 Rojo Flexi-Stent 7fr 3cm Small Pigtail Flexible .035in Stent - [id number] Implanted:Qty: 1 on 04/19/2019 by Jim Shelby MD at [facility] Explanted:Qty: 1 on 04/21/2019 at [facility] Stent Pancreas [employer] 11/12/2023 657 1 / / [id number] Conmed Tracie [id number] [place] Viabil 10mm 8.5fr 6cm 200cm Fully Covered Self Expand Pull - [id number] - [id number] Implanted:Qty: 1 on 04/19/2019 by Jim Shelby MD at [facility] Explanted:Qty: 1 on 04/21/2019 at [facility] Stent Bile Duct Conmed Tracie 12/21/2021 [id number] / [id number] / Procedures Procedure Name Priority Date/Time Associated [...] 11:26 AM CDT SCREENING MAMMOGRAM BILATERAL [place] Schedule Routine, Read Routine (OP Routine) 12/24/2021 2:23 PM CDT Screening mammogram, encounter for COLONOSCOPY 08/21/2018 3:07 PM RIDES ATTENDANT from Last 3 Months or Most Recently [...] Lung apices are unremarkable. Electronically signed by: MD Joanie Frias 01/18/2025 2:10 PM CDT EXAMINATION: XR SPINE [...] Result * eGFR (01/18/2025 11:26 AM CDT) Pathologist [facility] eGFR >90 >=60 mL/min/1. 73 m2 Comment: [...] of Race in Diagnosing Kidney Disease, JASN 202). The CKD-EPI equation should not be used for patients with unstable renal function and has not been validated in children and those over 70. Current interpretive data was last reviewed 2021. Blood 01/18/2025 11:2 6 AM CDT 01/18/2025 5:31 PM CDT Cristi Salinas MD LAB BLOOD ORDERABLES Fin al Result [facility] [address] Department of Laboratories [place], [place] [id number] * Differential, auto (01/18/2025 11:26 AM CDT) Neutrophil abs 2.29 1.50 - 6.50 K/cumm Imm gran abs 0.01 0.00 - 0.10 K/cumm [facility] Lymphocyte abs 1.55 0.80 - 3.30 K/cumm [facility] Monocyte abs 0.33 0.20 - 0.80 K/cumm [facility] Eosinophil abs 0.15 0.00 - 0.50 K/cumm [facility] Basophil abs 0.03 0.00 - 0.10 K/cumm [facility] Neutrophil pct 52.5 % [facility] Comment: Interpretive Data Percent cell count reference ranges are not reported, since discordance with absolute values may lead to misinterpretation of CBC data. Current Interpretive Data was last revised on 2018. Imm gran pct 0.2 % [facility] Comment: Interpretive Data Percent cell count reference ranges are not reported, since discordance with absolute values may lead to misinterpretation of CBC data. Current Interpretive Data was last revised on 2018. Lymphocyte pct 35.6 % [facility] Comment: Interpretive Data Percent cell count reference ranges are not reported, since discordance with absolute values may lead to misinterpretation of CBC data. Current Interpretive Data was last revised on 2018. Monocyte pct 7.6 % [facility] Comment: Interpretive Data Percent cell count reference ranges are not reported, since discordance with absolute values may lead to misinterpretation of CBC data. Current Interpretive Data was last revised on 2018. Eosinophil pct 3.4 % [facility] Comment: Interpretive Data Percent cell count reference ranges are not reported, since discordance with absolute values may lead to misinterpretation of CBC data. Current Interpretive Data was last revised on 2018. Basophil pct 0.7 % [facility] Comment: Interpretive Data Percent cell count reference ranges are not reported, since discordance with absolute values may lead to misinterpretation of CBC data. Current Interpretive Data was last revised on 2018. Blood 01/18/2025 11:2 6 AM CDT 01/18/2025 3:51 PM CDT Cristi Salinas MD LAB BLOOD ORDERABLES Fin al Result Performing Organization Address City/[facility]/ZIP Co de Phone Number [facility] [address] [employer] [place], [place] [id number] * TB test, quantiferon gold (01/18/2025 11:26 AM CDT) Pathologist [facility] Quantiferon TB Gold Negative Negative [facility] Comment: No interferon-gamma response to M. tuberculosis antigens was detected. Latent infection with M. tuberculosis is unlikely. A single negative result does not exclude infection with M. tuberculosis. In patients at high risk for M.tuberculosis infection, a second test should be considered in accordance with the 2017 ATS/IDSA/CDC Clinical Practice Guidelines for Diagnosis of Tuberculosis in Adults and Children [Lewinsohn DM et. al. Clin. Infect. Dis. 2017;64(2):111-115]. The reference range for the 'TB1 Ag minus Nil Result' and 'TB2 Ag minus Nil Result' is an Interferon-gamma level <0.35 IU/mL. TB-Nil 0.01 IUnits/mL [facility] TB2-Nil 0.00 IUnits/mL [facility] Mitogen-Nil 9.98 IUnits/mL [facility] NIL 0.02 IUnits/mL [facility] Comment: Test Performed by: [address] [address] Manager Analytical: Denis Hawkins Ph.D.; CLIA# [id number] Blood 01/18/2025 11:2 6 AM CDT 01/18/2025 4:35 PM CDT us Cristi Salinas MD LAB BLOOD ORDERABLES Fin al Result Performing Organization Address City/[facility]/ZIP Co de Phone Number [facility] [address] [place] [address] [facility] * CBC with auto differential (01/18/2025 11:26 AM CDT) Pathologist [facility] WBC 4.36 3.80 - 9.90 K/cumm Hgb 14.8 11.9 - 15.5 g/dL [facility] Hct 44.5 35.6 - 45.5 % [facility] Plt 197 150 - 400 K/cumm [facility] MPV 11.7 9.1 - 12.3 fL [facility] RBC 4.85 3.90 - 5.20 M/cumm [facility] MCV 91.8 81.3 - 96.4 fL [facility] MCH 30.5 27.1 - 33.3 pg [facility] MCHC 33.3 32.3 - 35.7 g/dL [facility] RDW CV 12.5 11.1 - 14.9 % [facility] RDW SD 41.9 35.7 - 48.1 fL [facility] NRBC abs 0.00 0.00 - 0.01 K/cumm [facility] Blood 01/18/2025 11:2 6 AM CDT 01/18/2025 3:51 PM CDT us Cristi Salinas MD LAB BLOOD ORDERABLES Fin al Result [facility] [address] [place] [address] * Cyclic citrul peptide antibody, IgG (01/18/2025 11:26 AM CDT) CCP Ab <0.5 <=2.9 units/mL Comment: Interpretive data Negative: <3 units/mL Positive: > or equal to 3 units/mL Current interpretive data was last revised on 2017. Testing performed by: [facility], [address], [place]., [address] Blood 01/18/2025 11:2 6 AM CDT 01/18/2025 7:05 PM CDT us Cristi Salinas MD LAB BLOOD ORDERABLES Fin al Result [facility] [address] [place] [address] * Erythrocyte sedimentation rate (01/18/2025 11:26 AM CDT) Pathologist [facility] Erythrocyte sedimentation rate 6 1 - 30 mm/hr Blood 01/18/2025 11:2 6 AM CDT 01/18/2025 3:51 PM CDT Cristi Salinas MD LAB BLOOD ORDERABLES Fin al Result Performing Organization Address City/[facility] Co de Phone Number [facility] [address] [place] [address] * Rheumatoid factor (01/18/2025 11:26 AM CDT) Pathologist [facility] Rheumatoid factor, quant <10 <=15 IUnits/mL Blood 01/18/2025 11:2 6 AM CDT 01/18/2025 3:51 PM CDT us Cristi Salinas MD LAB BLOOD ORDERABLES Fin al Result Performing Organization Address [facility] Co de Phone Number [facility] [address] [facility] [place] [address] * CRP (acute phase) (01/18/2025 11:26 AM CDT) [facility] CRP <3.0 <=10.0 mg/L Blood 01/18/2025 11:2 6 AM CDT 01/18/2025 3:51 PM CDT Cristi Salinas MD LAB BLOOD ORDERABLES Fin al Result Performing Organization Address [facility] Co de Phone Number [facility] [address] [facility] [place] [address] * Creatinine (01/18/2025 11:26 AM CDT) Pathologist [facility] Creatinine 0.72 0.60 - 1.10 mg/dL Blood 01/18/2025 11:2 6 AM CDT 01/18/2025 3:51 PM CDT Cristi Salinas MD LAB BLOOD ORDERABLES Fin al Result Performing Organization Address [facility] Co de Phone Number [facility] [address] Department [place] [address] * Hepatic function panel (01/18/2025 11:26 AM CDT) [facility] Bilirubin, total 0.5 0.1 - 1.2 mg/dL Bilirubin, direct <0.2 0.1 - 0.3 mg/dL [facility] Protein, pl 6.7 6.5 - 8.5 g/dL [facility] Albumin 4.6 3.5 - 5.0 g/dL [facility] Alk phos 86 40 - 130 Units/L [facility] ALT 24 7 - 45 Units/L [facility] AST 23 10 - 45 Units/L [facility] Blood 01/18/2025 11:2 6 AM CDT 01/18/2025 3:51 PM CDT Cristi Salinas MD LAB BLOOD ORDERABLES Fin al Result Performing Organization Address [facility] Co de Phone Number [facility] [address] Department [place] [address] * Screening Mammogram Bilateral [place] (12/24/2021 2:23 PM CDT) Anatomical Region Laterality Modality Breast Bilateral Mammography Narrative 12/25/2021 10:39 AM CDT Mammogram Technique: Bilateral Digital Breast Tomosynthesis, Bilateral C-view 2D Screening mammogram. Views obtained: bilateral craniocaudal and bilateral mediolateral oblique. Computer Aided Detection was performed. Mammogram Findings: The present examination has been compared to prior imaging studies performed at [facility] on 09/07/2018 and 12/01/2020, and at [facility] on 11/01/2019. There are scattered areas of fibroglandular density. There is no suspicious abnormality in either breast. Impression: There is no mammographic evidence of malignancy. Annual screening mammography is recommended. OVERALL FINAL ASSESSMENT: BI-RADS CATEGORY 1: Negative. Procedure Note Dee Mendez MD - 12/25/2021 Mammogram Technique: Bilateral Digital Breast Tomosynthesis, Bilateral C-view 2D Screening mammogram. Views obtained: bilateral craniocaudal and bilateral mediolateral oblique. Computer Aided Detection was performed. Mammogram Findings: The present examination has been compared to prior imaging studies performed at [facility] on 09/07/2018 and 12/01/2020, and at [facility] on 11/01/2019. There are scattered areas of fibroglandular density. There is no suspicious abnormality in either breast. Impression: There is no mammographic evidence of malignancy. Annual screening mammography is recommended. OVERALL FINAL ASSESSMENT: BI-RADS CATEGORY 1: Negative. us Self Screening Mammogram IMG MAMMO PROCEDURES Fi nal Result * COLONOSCOPY (08/21/2018 3:07 PM RIDES ATTENDANT) Anatomical Region Laterality Modality Other Narrative Procedure Note Jim Shelby MD - 08/21/2018 3:07 PM CST ENDOSCOPY LAB Patient Name: Pina Reynaga Procedure Date: 08/21/2018 3:07 PM Admit Type: Outpatient Room: [facility] Date of : 1970 Instrument Name: [id number] [...] bowel preparation was evaluated using the BBPS (Botkins Bowel Preparation Scale) with scores of: Right [...] Most Recently Relevant to Health Maintenance Insurance [id number]|2025-02-25 22:31:00|2025-02-25 22:30:00|XMS_ITS|BKG DAEMON|External Medical Summaries|[id number]|" Clinical Summary Created on: February 25, 2025 Pina Reynaga : 1970 Sex: Female Author Organization [facility] Address [address] [place] [address] Care Team Providers Care Grounds Cleaner Name Role Phone Unavailable Primary Care Provider [...] 3-dose series) 1990 Cervical Cancer Screening Pa amber with HPV Testing (Age 30 to 64) Every 5 Years 2001 Cervical Cancer Screening with HPV 2001 Mammogram Screening 2011 Pneumococcal Vaccine: 50+ Ye ars (1 of 1 - PCV) 2021 Zoster Vaccines (1 of 2) 2021 COVID-19 Vaccine ( - 2023-2 5 season) 2024 Meningococcal B Vaccine Aged Out No l onger eligible based on patient's age to complete this topic Meningococcal Vaccine Aged Out No jovanny felipe eligible based on patient's age to complete this topic RSV Immunizations Under 20 Months Aged Out No longer eligible based on patient's age to complete this topic "
--- OUTSIDE RECORDS SUMMARY | 2025-02-25 20:21 | XMS_ITS | Patient Health Record ---
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) Problem Epigastric pain (R10.13) Active confirmed Epigastric pain (06448260) Problem Lower abdominal pain, unspecified (R10.30) Active confirmed Lower abdominal pain (22939691) Problem Generalized abdominal pain (R10.84) Active confirmed Generalized abdominal pain (679831126) Problem Abdominal distension (gaseous) (R14.0) Active confirmed Problem Diarrhea, unspecified (R19.7) Active confirmed Diarrhea (11871105) PLAN OF TREATMENT Pending Test Test Name Order Date Colonoscopy 07/20/2018 Colonoscopy 12/19/2021 Amylase, Serum 07/20/2018 Lipase, Serum 07/20/2018 Hepatic Function Panel (7) 07/20/2018 CBC 07/20/2018 Endoscopic Retrograde Cholangiopancreato graphy (ERCP) 03/10/2019 Esophagogastroduodenoscopy (EGD) 018 Insurance Providers Payer Name Payer Address Payer Phone Subscriber Number Group Number Insured Name Patient Relationship to Insured Coverage Start Date Coverage End Date [facility] [address] [place], [place] [id number] Pina Reynaga Self - patient is the insured [facility] [address] [place], [place] [id number] Cristi Reynaga jr Spouse - patient [...] and random colon bx neg. EGD 08/2018 [facility] h iatal hernia, o/w normal. Path- BETSY neg, duodenal bx neg.
--- OUTSIDE RECORDS SUMMARY | 2025-02-25 20:21 | XMS_ITS | Encounter Summary ---
Author Organization 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
--- OUTSIDE RECORDS SUMMARY | 2025-02-25 20:21 | XMS_ITS | Clinical Summary ---
Author Organization [facility] Address [address] [place] [address] Care Team Providers Care Ski Production Supervisor Name Role Phone Unavailable Primary Care [...] 2021 Zoster Immunization (1 of 2) 2021 Pneumococcal Immunization (5 0+ years) (2 of 2 - PCV) 06/29/2021 06/29/2020 Influenza Immunization (#1) 2024 12/0 03/2019, 07/23/2018 SARS-COV-2 Immunization ( season) 2024 Respiratory Syncytial Virus (RSV) Immunization (Adult) (1 - 1-dose 75+ series) 2046 DTaP/Tdap/Td Immunization Discontinued 2017, 10/29/2017 TdaP Immunization Completed 06/22/2018, 10/29/2017 Pneumococcal Immunization Combined Discontinued 06/29/2020 Meningococcal Immunization (ACWY) Aged Out No longer eligible based on patient's age to complete this topic Rotavirus Immunization Aged Out No lo nger eligible based on patient's age to complete this topic
--- OUTSIDE RECORDS SUMMARY | 2025-02-25 20:21 | XMS_ITS | Encounter Summary ---
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
--- OUTSIDE RECORDS SUMMARY | 2025-02-25 20:21 | XMS_ITS | Patient Health Record ---
Author Organization [facility] johana Address [address] [place] [address] Care Team Providers Care Industrial Arts Teacher Name Role Phone Aneudy ONEIL, Jonathan Primary Care Provider Cristi Powers [phone] Allergies Allergen (clinical drug ingredient) Drug/Non Drug Allergy documented on EMR Reaction Allergy Type Onset Date Status ciprofloxacin Cipro Unknown Drug Allergy 07/16/2021 Ac tive Ciprofloxacin Unknown Drug Allergy 07/16/2021 Ac tive Results Component Value Reference Range Notes Anti-CCP (Cyclic Citrullinat ed Peptide Ab) Reviewed date:01/19/2025 01:00:16 PM Interpretation: Performing Lab:[facility] , [facility]5 [facility]. [facility] [address] Notes/Report: CCP Ab <0.5 <=2.9 units/mL Interpretive data Negative: <3 units/mL Positive: > or equal to 3 units/mL Current interpretive data was last revised on 2017. C Reactive Protein Reviewed date:01/18/2025 06:14:39 PM Interpretation: Performing Lab:[facility] , [facility]5 [facility]. [place] [address] Notes/Report: C-Reactive Protein <3.0 <=10.0 mg/L CBC w auto diff Reviewed date:01/18/2025 06:14:35 PM Interpretation: Performing Lab:[facility] , [facility] [place] [address] Notes/Report: WBC 4.36 3.80-9.90 K/cumm Hgb 14.8 11.9-15.5 g/dL Hct 44.5 35.6-45.5 % Platelet Ct 197 150-400 K/cumm MPV 11.7 9.1-12.3 fL RBC 4.85 3.90-5.20 M/cumm MCV 91.8 81.3-96.4 fL MCH 30.5 27.1-33.3 pg MCHC 33.3 32.3-35.7 g/dL RDW CV 12.5 11.1-14.9 % RDW SD 41.9 35.7-48.1 fL NRBC Abs Auto 0.00 0.00-0.01 K/cumm Creatinine Reviewed date:01/18/2025 06:15:30 PM Interpretation: Performing Lab:[facility] , [address] [place] [address]. [facility] [address] Notes/Report: Creatinine 0.72 0.60-1.10 mg/dL Hep Func Panel Reviewed date:01/18/2025 06:14:30 PM Interpretation: Performing Lab:[facility] , [address] [place] [address]. [facility] [address] Notes/Report: Total Bilirubin 0.5 0.1-1.2 mg/dL Bilirubin, Direct <0.2 0.1-0.3 mg/dL Plasma Total Protein 6.7 6.5-8.5 g/dL Albumin 4.6 3.5-5.0 g/dL Alkaline Phosphatase 86 40-130 Units/L ALT 24 7-45 Units/L AST 23 10-45 Units/L QTB Gold Reviewed date:01/21/2025 06:46:22 AM Interpretation: Performing Lab:[facility] , [address] [place] [address]. [facility] [address] Notes/Report: QuantiFERON TB Gold Negative Negative No [...] Mitogen-Nil 9.98 NIL 0.02 Test Performed by: [facility] [address] [place] [address] Central Communications Specialist: Denis Hawkins Ph.D.; CLIA# [id number] Rheumatoid Factor Reviewed date:01/18/2025 06:14:25 PM Interpretation: Performing Lab:[facility] , [address] [place] [address] [facility] [employer] [address] Notes/Report: RF, Popeye <10 <=15 IUnits/mL Sed Rate Reviewed date:01/19/2025 10:41:39 AM Interpretation: Performing Lab:[facility] , [facility] [employer]. [facility] [address] Notes/Report: ESR 6 1-30 mm/hr Differential Automated Reviewed date:01/18/2025 06:15:17 PM Interpretation: Performing Lab:[facility] , [address] [place] [address] [employer] [employer] [address] Notes/Report: Neut Abs 2.29 1.50-6.50 K/cumm ImmGran Abs 0.01 0.00-0.10 K/cumm Lymphocyte Abs 1.55 0.80-3.30 K/cumm [place] Abs 0.33 0.20-0.80 K/cumm Eos Abs 0.15 0.00-0.50 K/cumm Baso Abs 0.03 0.00-0.10 K/cumm Neut Pct 52.5 Interpretive Data Percent cell count reference ranges are not reported, since discordance with absolute values may lead to misinterpretation of CBC data. Current Interpretive Data was last revised on 2018. ImmGran Pct 0.2 Interpretive Data Percent cell count reference ranges are not reported, since discordance with absolute values may lead to misinterpretation of CBC data. Current Interpretive Data was last revised on 2018. Lymph Pct 35.6 Interpretive Data Percent cell count reference ranges are not reported, since discordance with absolute values may lead to misinterpretation of CBC data. Current Interpretive Data was last revised on 2018. [place] Pct 7.6 Interpretive Data Percent cell count reference ranges are not reported, since discordance with absolute values may lead to misinterpretation of CBC data. Current Interpretive Data was last revised on 2018. Eos Pct 3.4 Interpretive Data Percent cell count reference ranges are not reported, since discordance with absolute values may lead to misinterpretation of CBC data. Current Interpretive Data was last revised on 2018. Baso Pct 0.7 Interpretive Data Percent cell count reference ranges are not reported, since discordance with absolute values may lead to misinterpretation of CBC data. Current Interpretive Data was last revised on 2018. eGFR Reviewed date:01/18/2025 06:16:28 PM Interpretation: Performing Lab:[facility] , [address] [place] [address]. [facility] [address] Notes/Report: eGFR >90 >=60 mL/min/1.73 m2 Interpretive Data Reference Interval Normal >/= 90 [...] Current interpretive data was last reviewed 2021. Reason For Referral No Information Medications Medication SIG (Take, Route, Frequency, Duration) Notes Start Date End Date Status Vitamin D2 50 MCG (1999 UT) 1 tablet Orally Once a day for 30 days 02/02/2025 08/30/2025 Active ZyrTEC Allergy 10 MG take 1 tablet (10 m g) by oral route once daily Oral 1 Active Diclofenac Sodium 75 MG 1 tablet as needed with food Orally Twice a day for 30 days As needed Take with food 02/02/2025 08/30/2025 Active Immunizations Vaccine Route Administration Date Status Comme nts Influenza, seasonal, injecta ble, preservative free, 6-35 months Unknown 07/25/2017 Administered Social History Tobacco Use: Social History Observation Description Date Details (start date - stop date) Never Smoker NA - NA Tobacco Control (Standard) Question Answer Notes Tobacco use: Nonsmoker Problems Problem Type SNOMED Code ICD Code Onset Dates Problem Status W/U Status Risk Notes Problem 762128306 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 (Z79.899) Active confirmed Problem 84315288 Vitamin D deficiency (E55.9) Active confirmed Problem 57496714 Neck pain (M54.2) Active confirmed Problem Inflammatory polyarthropathy (804559019) Inflammatory polyarthropathy (M06.4) 08/06/20 21 Active confirmed Problem Joint pain (88052149) Pain in unspecified joint (M25.50) Active confirmed Problem Anesthesia of skin (286236850) Anesthesia of skin (R20.0) Active confirmed Vital Signs Heart Rate 66 /min 02/02/2025 Temperature 98.6 degrees Fahrenheit 02/02/2025 Height-cm 160.02 cm 02/02/2025 Blood pressure diastolic 80 mm Hg 02/02/2025 Oximetry 98 % 02/02/2025 Weight-kg 74.21 kg 02/02/2025 Height 63 in 02/02/2025 Blood pressure systolic 120 mm Hg 02/02/2025 Weight 163.6 lbs 02/02/2025 BMI 28.98 kg/m2 02/02/2025 Encounters Encounter Location Date Provider Diagnosis [facility] [address] [place] [address] 03/12/2024 Cristi Foss Inflammatory polyarthropathy M06.4 and Other senior living (current) drug therapy Z79.899 [facility] [address] [place] [address] 04/09/2024 Cristi Foss Inflammatory polyarthropathy M06.4 ; Pain in unspecified joint M25.50 and Other senior living (current) drug therapy Z79.899 [facility] [address] [place] [address] 07/09/2024 Cristi Foss [facility] [address] [place] [address] 01/18/2025 Cristi Foss Inflammatory polyarthropathy M06.4 ; Pain in unspecified joint M25.50 ; Anesthesia of skin R20.0 ; Other senior living (current) drug therapy Z79.899 and Neck pain M54.2 [facility] [address] [place] [address] 02/02/2025 Cristi Dyerraheelnaima Inflammatory polyarthropathy M06.4 ; Other senior living (current) drug therapy Z79.899 ; Neck pain M54.2 and Vitamin D deficiency E55.9 [facility] [address] [place] [address] 02/04/2025 Cristi Foss Assessments Encounter Date Diagnosis (ICD Code) Assessment Notes Treatment Notes Treatment Clinical Notes Section Notes 03/12/2024 Inflammatory polyarthropathy (ICD-10 - M06.4) 04/09/2024 Inflammatory polyarthropathy (ICD-10 - M06.4) 01/18/2025 Inflammatory polyarthropathy (ICD-10 - M06.4) 01/18/2025 Pain in unspecified joint (ICD-10 - M25.50) 02/02/2025 Inflammatory polyarthropathy (ICD-10 - M06.4) 02/02/2025 Other senior living (current) drug therapy (ICD-10 - Z79.899) 02/02/2025 Neck pain (ICD-10 - M54.2) 01/18/2025 Anesthesia of skin (ICD-10 - R20.0) 04/09/2024 Pain in unspecified joint (ICD-10 - M25.50) 03/12/2024 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 (ICD-10 - Z79.899) 04/09/2024 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 (ICD-10 - Z79.899) 01/18/2025 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 (ICD-10 - Z79.899) 02/02/2025 Vitamin D deficiency (ICD-10 - E55.9) 01/18/2025 Neck pain (ICD-10 - M54.2) 07/09/2024 Other 02/02/2025 Other Labs reviewed. Plan Of Treatment Pending Test Test Name Order Date X ray : Hand, left 03/12/2024 X ray : Hand, right 03/12/2024 X ray : Spines, cervical 4 views 025 Creatinine, Serum 03/12/2024 CBC With Differential/Platelet CBC With Differential/Platelet Rheumatoid Arthritis Factor 03/12/2024 CCP IgG Antibodies 03/12/2024 FABIAN Comprehensive Panel 03/12/2024 Hepatic Function Panel (7) 03/12/2024 Hepatic Function Panel (7) 04/09/2024 ESR 03/12/2024 Creatinine 04/09/2024 Next Appt Details Provider Name:Cristi Tay giang, 05/05/2025 10:00:00 AM, [address] [facility] [address], [place], [address], Insurance Providers Payer Name Payer Address Payer Phone Subscriber Number Group Number Insured Name Patient Relationship to Insured Coverage Start Date Coverage End Date [facility] [address] [place] [address] [phone] [id number] Pina Reynaga Self - patient is the insured [facility] [employer] [address] [address] [place] [address] [id number] Pina Reynaga Self - patient is the insured Medical (General) History Surgical History Surgery Date(Month/Year) D&C; 2021-07-16 Cyst removal; 2021-07-16 Hysterectomy; 2021-07-16 Bladder Surgery; 2021-07-16 Cyst excision; 2021-07-16 Sinus Surgery; 2021-07-16 Hospitalization History Reason Date(Month/Year)
--- OUTSIDE RECORDS SUMMARY | 2025-02-25 20:21 | XMS_ITS | Clinical Summary ---
Author Organization [facility] Address [address] [place] [address] Care Team Providers Care Cloth Beamer Name Role Phone Unavailable Primary Care Provider [...] 2021 COVID-19 Vaccine (2023-2 5 season) 2024 Meningococcal B Vaccine Aged Out No l onger eligible based on patient's age to complete this topic Meningococcal Vaccine Aged Out No jovanny felipe eligible based on patient's age to complete this topic RSV Immunizations Under 20 Months Aged Out No longer eligible based on patient's age to complete this topic
--- OUTSIDE RECORDS SUMMARY | 2025-02-25 20:21 | XMS_ITS ---
Author Organization [facility] johana Address [address] [facility] [address] [place] [address] Care Team Providers Care Bank Worker Name Role Phone Jonathan Amado MD Primary Care Provider Cristi Powers Unavailable [phone] Allergies Allergen (clinical drug ingredient) Drug/Non Drug Allergy documented on EMR Reaction Allergy Type Onset Date Status ciprofloxacin Cipro Unknown Drug Allergy 07/16/2021 Ac tive Ciprofloxacin Unknown Drug Allergy 07/16/2021 Ac tive REASON FOR VISIT 2 week FU Medications Medication SIG (Take, Route, Frequency, Duration) Notes Start Date End Date Status Vitamin D2 50 MCG (1999) 1 tablet Orally Once a day for 30 days 02/02/2025 08/30/2025 Active ZyrTEC Allergy 10 MG take 1 tablet (10 m g) by oral route once daily Oral 1 Active Diclofenac Sodium 75 MG 1 tablet as needed with food Orally Twice a day for 30 days As needed Take with food 02/02/2025 08/30/2025 Active Social History Tobacco Use: Social History Observation Description Date Details (start date - stop date) Never Smoker NA - NA Tobacco Control (Standard) Question Answer Notes Tobacco use: Nonsmoker Problems Problem Type SNOMED Code ICD Code Onset Dates Problem Status W/U Status Risk Notes Problem 13120754 Vitamin D deficiency (E55.9) Active confirmed Vital Signs Temperature 98.6 degrees Fahrenheit 02/03/20 25 Blood pressure systolic 120 mm Hg 02/03/20 25 Blood pressure diastolic 80 mm Hg 025 Heart Rate 66 /min 02/02/2025 Height 63 in 02/02/2025 Weight 163.6 lbs 02/02/2025 BMI 28.98 kg/m2 02/02/2025 Oximetry 98 % 02/02/2025 Height-cm 160.02 cm 02/02/2025 Weight-kg 74.21 kg 02/02/2025 Encounters Encounter Location Date Provider Diagnosis [facility] [address] [place] [address] 02/02/2025 Cristi Pipo Inflammatory polyarthropathy M06.4 ; 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 Plan Of Treatment Medication Medication Name Sig Start Date Stop Date Notes Vitamin D2 50 MCG (1999 UT) 1 tablet Ora lly Once a day for 30 days 02/02/2025 08/30/2025 Diclofenac Sodium 75 MG 1 tablet as need ed with food Orally Twice a day for 30 days 02/02/2025 08/30/2025 Treatment Notes Assessment Notes Other Labs reviewed. Next Appt Details Follow Up: 3 Months, Reason: Provider Name:Cristi Cross Manisharafael giang, 05/05/2025 10:00:00 AM, [address], [place], [address], Progress Notes * Pina REYNAGA KDOB:06/1970 (54 yo F)Acc No.[id number]:02/02/2025 Progress Notes Patient: Rajendra Pina QUIGLEY Provider: Edd Foss MD :1970 A ge:54 Y S ex:Female Date:02/02/2025 Address:[address] [place], [place] [address] Pcp:Jonathan Amado MD Subjective: * Chief Complaints: * 2 week FU * HPI: A dvance Care Planning: Has [...] flared up. No neck pain. Has LBP. Had left hip core decompression. Still withh queasiness, nausea. Uses Zofran prn. On pred. 5 mg. qd. * ROS: E nergy OK. Sleep OK . * Medical History: * Surgical History: D &C; 2036-93-99Rljx removal; 5192-53-49Utdacufqkpvp; 9105-76-11Gztxtzh Surgery; 5278-71-34Fnss excision; 3534-10-18Ftjxq Surgery; 2021-07-16 * Hospitalization/Major Diagno stic Procedure: N o Hospitalization History. * Social History: T obacco Use: T obacco Control (Standard) T obacco use: N onsmoker. 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 * Medications: T akingZyrTEC Allergy 10 MG Tablet take 1 tablet (10 mg) by oral route once daily Oral 1 Taking ZyrTEC Allergy 10 MG Tablet take 1 tablet (10 mg) by oral route once daily Oral 1 DiscontinuedNitrofurantoin Monohyd Macro 100 MG Capsule Oral Medication List reviewed and reconciled with the patientDiscontinued Nitrofurantoin Monohyd Macro 100 MG Capsule Oral Medication List reviewed and reconciled with the patient * Allergies: C ipro: Allergy - Onset Date 07/16/2021iprofloxacin: Allergy - Onset Date 07/16/2021no[Allergies Verified] Objective: * Vitals: B P:120/80mm Hg, HR:66/min, Temp:98.6F, Oxygen sat %:98%, Wt:163.6lbs, Wt- k.21kg, Ht:63in, Ht-cm:160.02cm, BMI:28.98Index, Body Surface Area:1.82. * Examination: G eneral [...] pecify :Src Problem: Polyarthropathy, Inflammatory 2 . O ther group home (current) drug therapy - Z79.899 3 . N oscar pain - M54.2 4 . V itamin D deficiency - E55.9 Plan: * Treatment: 2. O thers Notes: Labs reviewed. * Procedure Codes: G 2211 Complex e/m visit add on * Follow Up: 3 Months * Billing Information: * Visit Code: 60995 Office Visit, Est Pt., Level 4. * Procedure Codes: G2211 Complex e/m visit add on. * Sign off status: Completed true * Provider: Edd Foss MD Date: 0 02/02/2025 Generated for Yecenia de paz/Sherry/eTransmitting on: 0 [...]
--- OUTSIDE RECORDS SUMMARY | 2025-02-25 20:21 | XMS_ITS | Clinical Summary ---
Author Organization [facility] Address [address] [place] [address] Care Team Providers Care Hoop Puncher Name Role Phone Jonathan Amado MD Unavailable [phone] Jonathan Amado MD Primary Care Provider [phone] Source Comments [facility],non-owned Affiliates and Associated Physician Practices is amultiple site organization consisting of ambulatory clinics and hospital sitesin [place], [place], [place] and [place]. This disclosure is being madepursuant to the Care Everywhere program and may not contain all information available regarding this patient. Last updated 18.[facility] Allergies Active Allergy Reactions Criticality Noted Date Comments Ambrosia Artemisiifolia, Ragweed Unknown 01/28/2023 ragweed - allergy Ciprofloxacin Myalgias 06/24/2013 Ciprofloxacin Rash Medium 04/24/2012 Compazine Syrup Anxiety Low 04/24/2012 Contrast-Iodinated Agents For Ct/Other Anaphylaxis,Other High 06/24/2013 Tenderness at infusion site Contrast-Iodinated Agents For Ct/Other Myalgias Medium 10/08/2011 And joint pain after Doxycycline Rash Medium 04/24/2012 Gabapentin Headache Low 05/29/2019 Lactose GI Discomfort 01/11/2025 lactose intolorent. Levaquin Rash Medium 04/24/2012 Morphine Nausea and/or Vomiting Medium 10/08/2011 Sulfamethoxazole W-Trimethoprim Urticaria,Rash Low 06/24/2013 Sulfa Drugs Rash,Myalgias Medium 04/24/2012 Medications * Be aware that medications may not be up to date on this document. Alwaysverify current medications with the patient. fluticasone propionate (FLONASE) 50 MCG/ACT nasal spray [place] 2 (two) sprays into each nostril once daily Active ergocalciferol (DRISDOL) 1.25 MG (32730 UT) capsule Take 1 (one) capsule by mouth every 30 days Active cetirizine (ZYRTEC) 10 MG tablet Take 1 (one) tablet by mouth once daily as needed Active Pseudoephedrin e HCl (SUDAFED PO) Take 1 tablet by mouth as needed Active hydroxychloroq uine (PLAQUENIL) 200 MG tablet Take 2 (two) tablets by mouth once daily 1 Active estradiol (Estrace) 0.1 MG/GM vaginal cream Insert 2 g into the vagina Two times a week 2 Active Budesonide Add 1 capsule of 0.5mg or 0.6mg to 240ml saline (patient may mix own saline). Irrigate half in each nostril twice daily. 60 capsule 11 3 Active azelastine (Astepro) 205.5 MCG/SPRAY nasal spray [place] 2 (two) sprays into each nostril 2 times daily 90 mL 4 3 Active ibandronate (Boniva) 150 MG tablet Take 1 (one) tablet by mouth every 30 days 4 Active FLUoxetine (PROzac) 20 MG capsule Take 1 (one) capsule by mouth once daily 4 Active allergy injection Per [facility] Otolaryngology protocol Active fexofenadine (Cassie) 180 MG tablet Take 1 (one) tablet by mouth once daily Active Vitamin D, Ergocalciferol , 13121 units CAPS Take 1 (one) capsule by mouth every [address] Yun prescibed once weekly for eight weeks Active cefdinir (Omnicef) 300 MG capsule Take 1 (one) capsule by mouth 2 times daily 4 Active EPINEPHrine (Epipen) 0.3 MG/0.3ML auto-injector pen Inject 0.3 mL into muscle once as needed for Anaphylaxis 0.6 mL 1 5 Active leflunomide (Arava) 20 MG tablet Take 1 (one) tablet by mouth once daily Active nitrofurantoin monohyd macro crystals (Macrobid) 100 MG capsule Take 1 (one) capsule by mouth Active romosozumab-aq qg (Evenity) injection Inject 2.34 mL subcutaneously once Active Active Problems Problem Noted Date Diagnosed [...] Encounters Date Type Department Care Team Description 02/22/2025 3:40 PM CDT Clinical Support [facility] [address] [place] [phone] Allergic rhinitis due to pollen, unspecified seasonality 02/22/2025 Travel 02/08/2025 3:20 PM CDT [facility] [address] [place] [phone] Allergic rhinitis due to pollen, unspecified seasonality 02/08/2025 Travel 02/01/2025 3:20 PM CDT Clinical Support [facility] [address] [place] [phone] Allergic rhinitis due to pollen, unspecified seasonality 02/01/2025 Travel 01/25/2025 3:20 PM CDT [facility] [address] [place] [phone] Allergic rhinitis due to pollen, unspecified seasonality 01/25/2025 Travel 01/18/2025 1:40 PM CDT Clinical Support [facility] [address] [place] [phone] Allergic rhinitis due to pollen, unspecified seasonality 01/18/2025 Travel 01/11/2025 1:00 PM CDT Clinical Support [facility] [address] [place] [phone] Allergic rhinitis due to pollen, unspecified seasonality 01/11/2025 Travel 01/04/2025 1:00 PM CDT Clinical Support [facility] [address] [place] [phone] Allergic rhinitis due to pollen, unspecified seasonality 01/04/2025 Travel 12/28/2024 1:00 PM CDT Clinical Support [facility] [address] [place] [phone] Allergic rhinitis due to pollen, unspecified seasonality 12/28/2024 Travel 12/21/2024 1:00 PM CDT Clinical Support [facility] [address] [place] [phone] Allergic rhinitis due to pollen, unspecified seasonality 12/21/2024 Travel 12/15/2024 Refill [facility] [address] [place] [phone] Grupo Brice MD MEDICATION REFILL 12/13/2024 3:40 PM 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 Clinical Support [facility] [address] [place] [phone] Allergic rhinitis due to pollen, unspecified seasonality 12/13/2024 Travel 12/07/2024 3:40 PM 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 Clinical Support [facility] [address] [place] [phone] Allergic rhinitis due to pollen, unspecified seasonality 12/07/2024 Travel from Last 3 Months Immunizations Immunization Administration Dates Next Due FLU VACCINE TRI IIV3 SPLIT PF IM (FLUVIRIN) 07/13 INFLUENZA VACCINE 07/03/2020 INFLUENZA VACCINE, QUADR. 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 Not on file Not on file Not on mayank e Last Filed Vital Signs Vital Sign Reading Time Taken Comments Blood Pressure 106/75 07/06/2024 3:18 PM CDT Pulse 72 07/06/2024 3:18 PM CDT Temperature 37 C (98.6 F) 07/25/2022 3:56 PM CDT Respiratory Rate 16 [...] Care Team (Late st Contact Info) Description 03/01/2025 3:20 PM CDT Clinical Support [facility] [address] [place] [phone] 03/08/2025 3:40 PM CDT Clinical Support [facility] [address] [place] [phone] 03/15/2025 3:40 PM CDT Clinical Support [facility] [address] [place] [phone] 03/22/2025 3:40 PM CDT Clinical Support [facility] [address] [place] [phone] 03/29/2025 3:40 PM CDT Clinical Support [facility] [address] [place] [phone] 04/05/2025 3:40 PM CDT Clinical Support [facility] [address] [place] [phone] Health Maintenance Due Date Last Done Comments COLOGUARD (AGES 45-75) - COLON CA SCREENING [address] COLONOGRAPHY - COLON CA SCREENING 1971 FIT - COLON CA SCREENING 1971 FLEX SIG - COLON CA SCREENING 1971 LIPID TESTING 1971 PAP SMEAR 1971 HIV SCREENING 1986 HEPATITIS B VACCINE (1 of 3 - 19+ 3-dose series) 1990 ZOSTER VACCINE (1 of 2) 2021 PNEUMOCOCCAL VACCINE 50+ (2 of 2 - PCV) 06/29/2021 06/29/2020 SCREENING FOR DIABETES 03/05/2022 9, 07/26/2017, 02/07/2017, Additional history exists MAMMOGRAM 12/25/2023 12/24/2021, 12/11, 12/01/2020, Additional history exists COVID-19 VACCINE ( season) 2024 07/17/2021, 12/29/2020, 12/08/2020 DEPRESSION SCREENING 10/13/2024 INFLUENZA VACCINE (Season Ended) 2025 08/16/2021, 07/03/2020, 09/17/2019, Additional history exists DTAP/TDAP/TD VACCINES (3 - Td or Tdap) 06/22/2028 06/22/2018, 10/29/2017 COLONOSCOPY - COLON CA SCREENING 08/21/2028 08/21/2018 Colorectal Cancer Screening 08/21/2028 HEPATITIS C SCREENING Completed 02/05/2016 HIB VACCINE Aged Out No longer eligi ble based on patient's age to complete this topic HPV VACCINE Aged Out No longer eligi ble based on patient's age to complete this topic MENINGOCOCCAL (Group B) VACCINE SHARED DECISION-MAKING Aged Out No longer eligible based on patient's age to complete this topic MENINGOCOCCAL GROUPS A/C/Y/W VACCINE Aged Out No longer eligible based on patient's age to complete this topic Procedures Procedure Name Priority Date/Time Associated Diagnosis Comments IMAGING/RADIOLOGY/XRAY RESULTS ORDER 12/07/2024 IMAGING/RADIOLOGY/XRAY RESULTS ORDER 12/07/2024 COMPREHENSIVE METABOLIC PANEL Routine 03/05/2019 10:01 AM CDT Fibromyalgia FABIAN positive HEPATITIS C ANTIBODY Routine 02/05/2016 11:21 AM CDT from Last 3 Months or Most Recently Relevant to Health Maintenance Results * IMAGING RADIOLOGY XRAY RESULTS ORDER (12/07/2024) Only the most recent of2 resultswithin the time period is included. Anatomical Region Laterality Modality Other 12/07/2024 Narrative 12/07/2024 Ordered by an unspecified provider. us Scanned Document IMAGING Final Result * COMPREHENSIVE METABOLIC PANEL (03/05/2019 10:01 AM [...] Resulting Agency Comment Lab Testing performed at: [address] [id number] [facility] ONE[facility] LAB - CHEMISTRY ORDERABLES Fi nal Result Performing Organization Address [facility] de Phone Number [facility] INSURANCE BILL [address] [place] [address] * HEPATITIS C ANTIBODY (02/05/2016 11:21 AM CDT) [facility] Hepatitis C Virus Antibody <0.1 0.0 - 0.9 s/co ratio [facility] ([facility]) Comment: Negative: < 0.8 Indeterminate: 0.8 - 0.9 Positive: > 0.9 The CDC recommends that a positive HCV antibody result be followed up with a HCV Nucleic Acid Amplification test (486197). Blood specimen (specimen) BLOOD SPECIMEN / Unknown 02/05/2016 11:21 AM CDT 02/05/2016 4:02 PM CDT Narrative [facility] ([facility]) - 02/13/2016 11:20 AM CDT Performed at: [address] [place] [id number] Retail Advertising Executive: Darwin Hunter PhD, Phone: [phone] Sarika Edwards MD LAB - CHEMISTRY ORDERABLES Ed ited Result - Final Performing Organization Address [facility]/State/ZIP Co de Phone Number [facility]) [address] [place] [address], [facility] from Last 3 Months or Most Recently Relevant to Health Maintenance Insurance [employer] Care Teams Hoop Puncher Relationship Specialty Start Date End Date Jonathan Amado MD [address] [place] [phone] PCP - General Family Medicine 09/15/23 Jonathan Amado MD [address] [place] [phone] 06/24/13
[2025-02-25 20:27] VITALS: BP 139/74; PULSE 72; RESP 16; TEMP 36.8; O2SAT 99
--- NOTE | 2025-02-25 20:30 | PC.NURSE ---
pt has had total hysterectomy.
[2025-02-25 22:02] LABS: Basophils Percent Auto 0.6 % (0.2-1.2); Eosinophils Absolute Auto 0.2 K/mm3 (0-0.3); Eosinophils Percent Auto 4.6 % (0-4.4); Hematocrit 42.1 % (37.0-47.0); Hemoglobin 14.1 g/dL (12.0-15.0); Immature Granulocyte Absolute 0.01 K/mm3 (0.00-0.031); Immature Granulocyte Percent A 0.2 % (0-0.5); Lymphocytes Absolute Auto 2.13 K/mm3 (0.9-3.2); Lymphocytes Percent Auto 42.5 % (18.3-44.2); Mean Corpuscular HGB Conc 33.5 g/dl (32-36); Mean Corpuscular Hemoglobin 30.3 pg (26-34); Mean Corpuscular Volume 90.5 fl (80-100); Mean Platelet Volume 11.4 fl (7.4-10.4); Monocytes Absolute Auto 0.4 K/mm3 (0.1-0.6); Monocytes Percent Auto 8.4 % (2.6-8.5); Neutrophils Absolute Auto 2.2 K/mm3 (1.3-6.7); Neutrophils Percent Auto 43.7 % (45.5-73.1); Platelet Count Result 171 k/mm3 (150-375); Red Blood Count 4.65 M/mm3 (4.2-5.4); Red Cell Distribution Width 12.4 % (11.5-14.5)
[2025-02-25 22:09] LABS: Alanine Aminotransferase 26 U/L (6-35); Albumin Level 4.3 g/dL (3.5-5.1); Alkaline Phosphatase 109 U/L (38-126); Anion Gap 6 mmol/L (4-12); Aspartate Amino Transferase 36 U/L (14-36); Bilirubin,Total 0.8 mg/dL (0.2-1.3); Blood Urea Nitrogen 15 mg/dL (7-17); Calcium 8.9 mg/dL (8.4-10.2); Carbon Dioxide 27 mmol/L (22-30); Chloride 105 mmol/L (98-107); Estimated CRCL calculation 83 ml/min; Estimated Glomerular Filt Rate > 60; Glucose 90 mg/dL (65-110); Lipase 71 U/L (23-300); Potassium 3.7 mmol/L (3.4-5.0); Sodium 138 mmol/L (137-145)
[2025-02-25 22:17] LABS: Add Urine Microscopic? YES; Appearance Urine Cloudy (Clear); Bacteria Urine None Seen /hpf; Bilirubin Urine Negative (Negative); Blood Urine Trace (Negative); Color Urine Yellow (Yellow); Glucose Urine UA Negative (Negative); Ketones Urine Trace mg/dL (Negative); Leukocyte Esterase Ur 2+ LEU/UL (Negative); Nitrate Urine Negative (Negative); Non Pathogenic Casts 0-2; Protein Urine Trace mg/dL (Negative); RBC Urine 0-2 /hpf (0-2); Specific Grav Ur 1.029 (1.001-1.035); Squamous Epithelial Cell Urine None Seen /hpf (Few); WBC Urine >100 /hpf (0-3)
--- OUTSIDE RECORDS SUMMARY | 2025-02-25 22:30 | XMS_ITS | Referral Summary ---
Author Organization [facility] Address [address] [place] [address] Care Team Providers Care Functional Architect Name Role Phone Jonathan Amado MD Primary Care Provider [phone] Jim Shelby MD Unavailable [phone] Encounters Date Type Department Care Team Description 02/23/2025 3:00 PM CDT Infusion [facility] Injection Therapy [address] [place] [address] 5th [place] [address] [place] [phone] Postmenopausal osteoporosis (Primary Dx) 01/26/2025 1:45 PM CDT Infusion [facility] Injection Therapy [address] [place] [address] 5th [place] [address] [place] [address] Postmenopausal osteoporosis (Primary Dx) 01/18/2025 3:27 PM CDT - 01/18/2025 11:59 PM CDT Hospital Encounter [id number] [place] [phone] Discharge Disposition: Discharge to home or self care 01/18/2025 12:25 PM CDT - 01/18/2025 11:59 PM CDT Hospital Encounter [facility] - Imaging [address] [place] [phone] Inflammatory polyarthropathy (HCC) Discharge Disposition: Discharge to home or self care 01/13/2025 Orders Only [facility] [address] [facility] 6th [place] [address] [place] [address] Daniel Ellis MD Other amnesia (Primary Dx); Aphasia; Alzheimer's disease with early onset (HCC) 01/07/2025 Documentation [facility] [address] [facility] [place] First [address] [place] [address] David Holland, YINA from Last 3 Months [...] 06/24/2013 Sulfasalazine Rash Medium 04/24/2012 Body aches [place] Pollen-Short Ragweed Unknown 01/28/2023 ragweed - allergy [...] (04/21/2019): Added automatically from request for surgery [id number] Elevated CK 03/01/2019 Urticaria 03/01/2019 Memory loss [...] and Family Not on file 12/13/2019 Attends [employer] Services Not on file 12/12 Active Member [...] on file Legal Sex Female 9:51 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 Gender Identity Not on file Sexual Orientation Not on file Last Filed Vital Signs Vital Sign Reading Time Taken Comments Blood Pressure 133/90 10/26/2024 9:59 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 Pulse 59 10/26/2024 9:59 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 Temperature 36.7 C (98 F) 07/08/2019 4:21 PM CDT Respiratory Rate 16 06/16/2019 8:30 PM CDT Oxygen Saturation 95% 06/16/2019 8:30 PM CDT Inhaled Oxygen Concentration - - Weight 73.5 kg (162 lb) 10/26/2024 9:59 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 Height 159.3 cm (5' 2.7 ) 10/26/2024 9:59 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 Body Mass Index 28.97 10/26/2024 9:59 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 Plan of Treatment Not on file Medical Devices Explanted Type Area Processes Chemical Design Engineer Device Identifier Shelf Expiration Date Model / Serial / Lot [employer] 6571 Rojo Flexi-Stent 7fr 3cm Small Pigtail Flexible .035in Stent - [id number] Implanted:Qty: 1 on 04/19/2019 by Jim Shelby MD at [facility] Explanted:Qty: 1 on 04/21/2019 at [facility] Stent Pancreas [employer] 11/12/2023 657 1 / / [id number] Conmed Tracie [id number] [place] Viabil 10mm 8.5fr 6cm 200cm Fully Covered Self Expand Pull - [id number] - [id number] Implanted:Qty: 1 on 04/19/2019 by Jim Shelby MD at [facility] Explanted:Qty: 1 on 04/21/2019 at [facility] Stent Bile Duct Conmed Tracie 12/21/2021 [id number] / [id number] / Procedures Procedure Name Priority Date/Time Associated [...] mammogram, encounter for COLONOSCOPY 08/21/2018 3:07 PM PAPERHANGER AND PAINTER from Last 3 Months or Most Recently [...] apices are unremarkable. Electronically signed by: Deny Siemon MD Cristi Salinas MD IMG XR PROCEDURES Final Result * eGFR (01/18/2025 11:26 AM CDT) Pathologist [facility] [place] eGFR >90 >=60 mL/min/1. 73 m2 Comment: [...] LAB BLOOD ORDERABLES Fin al Result [facility] [address] Department of Laboratories [place], [place] [id number] * Differential, auto (01/18/2025 11:26 AM CDT) Neutrophil abs 2.29 1.50 - 6.50 K/cumm Imm gran abs 0.01 0.00 - 0.10 K/cumm [facility] Lymphocyte abs 1.55 0.80 - 3.30 K/cumm [facility] Monocyte abs 0.33 0.20 - 0.80 K/cumm [facility] Eosinophil abs 0.15 0.00 - 0.50 K/cumm [facility] Basophil abs 0.03 0.00 - 0.10 K/cumm [facility] Neutrophil pct 52.5 % [facility] Comment: Interpretive Data Percent cell count reference ranges are not reported, since discordance with absolute values may lead to misinterpretation of CBC data. Current Interpretive Data was last revised on 2018. Imm gran pct 0.2 % [facility] Comment: Interpretive Data Percent cell count reference ranges are not reported, since discordance with absolute values may lead to misinterpretation of CBC data. Current Interpretive Data was last revised on 2018. Lymphocyte pct 35.6 % [facility] Comment: Interpretive Data Percent cell count reference ranges are not reported, since discordance with absolute values may lead to misinterpretation of CBC data. Current Interpretive Data was last revised on 2018. Monocyte pct 7.6 % [facility] Comment: Interpretive Data Percent cell count reference ranges are not reported, since discordance with absolute values may lead to misinterpretation of CBC data. Current Interpretive Data was last revised on 2018. Eosinophil pct 3.4 % [facility] Comment: Interpretive Data Percent cell count reference ranges are not reported, since discordance with absolute values may lead to misinterpretation of CBC data. Current Interpretive Data was last revised on 2018. Basophil pct 0.7 % [facility] Comment: Interpretive Data Percent cell count reference ranges are not reported, since discordance with absolute values may lead to misinterpretation of CBC data. Current Interpretive Data was last revised on 2018. Blood 01/18/2025 11:2 6 AM CDT 01/18/2025 3:51 PM CDT Cristi Salinas MD LAB BLOOD ORDERABLES Fin al Result Performing Organization Address City/[facility]/ZIP Co de Phone Number [facility] [address] [place], [place] [id number] * TB test, quantiferon gold (01/18/2025 11:26 AM CDT) Pathologist [facility] [place] Quantiferon TB Gold Negative Negative [place] [facility] Comment: No interferon-gamma response to [...] Interferon-gamma level <0.35 IU/mL. TB-Nil 0.01 IUnits/mL [facility] TB2-Nil 0.00 IUnits/mL [facility] Mitogen-Nil 9.98 IUnits/mL [facility] NIL 0.02 IUnits/mL [facility] Comment: Test Performed by: [address] [address] Audio/Visual Operator: Denis Hawkins Ph.D.; CLIA# [id number] Blood 01/18/2025 11:2 6 AM CDT 01/18/2025 4:35 PM CDT us Cristi Salinas MD LAB BLOOD ORDERABLES Fin al Result Performing Organization Address City/[facility]/ZIP Co de Phone Number [facility] [address] [place] [address] [place] [facility] * CBC with auto differential (01/18/2025 11:26 AM CDT) Pathologist [facility] [place] WBC 4.36 3.80 - 9.90 K/cumm Hgb 14.8 11.9 - 15.5 g/dL [facility] Hct 44.5 35.6 - 45.5 % [facility] Plt 197 150 - 400 K/cumm [facility] MPV 11.7 9.1 - 12.3 fL [facility] RBC 4.85 3.90 - 5.20 M/cumm [facility] MCV 91.8 81.3 - 96.4 fL [facility] MCH 30.5 27.1 - 33.3 pg [facility] MCHC 33.3 32.3 - 35.7 g/dL [facility] RDW CV 12.5 11.1 - 14.9 % [facility] RDW SD 41.9 35.7 - 48.1 fL [facility] NRBC abs 0.00 0.00 - 0.01 K/cumm [facility] Blood 01/18/2025 11:2 6 AM CDT 01/18/2025 3:51 PM CDT us Cirsti Salinas MD LAB BLOOD ORDERABLES Fin al Result [facility] [address] Department [place] [address] * Cyclic citrul peptide antibody, IgG (01/18/2025 11:26 AM CDT) CCP Ab <0.5 <=2.9 units/mL Comment: Interpretive data Negative: <3 units/mL Positive: > or equal to 3 units/mL Current interpretive data was last revised on 2017. Testing performed by: [facility], [address] [facility], [place]., [address] Blood 01/18/2025 11:2 6 AM CDT 01/18/2025 7:05 PM CDT us Cristi Salinas MD LAB BLOOD ORDERABLES Fin al Result [facility] [address] Department [place] [address] * Erythrocyte sedimentation rate (01/18/2025 11:26 AM CDT) Pathologist [facility] [place] Erythrocyte sedimentation rate 6 1 - 30 mm/hr Blood 01/18/2025 11:2 6 AM CDT 01/18/2025 3:51 PM CDT Cristi Salinas MD LAB BLOOD ORDERABLES Fin al Result Performing Organization Address City/[facility] Co de Phone Number [facility] [address] [place] [address] * Rheumatoid factor (01/18/2025 11:26 AM CDT) Pathologist [facility] [place] Rheumatoid factor, quant <10 <=15 IUnits/mL Blood 01/18/2025 11:2 6 AM CDT 01/18/2025 3:51 PM CDT us Cristi Salinas MD LAB BLOOD ORDERABLES Fin al Result Performing Organization Address [facility] Co de Phone Number [facility] [address] [facility] [place] [address] * CRP (acute phase) (01/18/2025 11:26 AM CDT) [facility] CRP <3.0 <=10.0 mg/L Blood 01/18/2025 11:2 6 AM CDT 01/18/2025 3:51 PM CDT Cristi Salinas MD LAB BLOOD ORDERABLES Fin al Result Performing Organization Address [facility] Co de Phone Number [facility] [address] [facility] [place] [address] * Creatinine (01/18/2025 11:26 AM CDT) Pathologist [facility] Creatinine 0.72 0.60 - 1.10 mg/dL Blood 01/18/2025 11:2 6 AM CDT 01/18/2025 3:51 PM CDT Cristi Salinas MD LAB BLOOD ORDERABLES Fin al Result Performing Organization Address [facility] Co de Phone Number [facility] [address] [place] [address] * Hepatic function panel (01/18/2025 11:26 AM CDT) [facility] Bilirubin, total 0.5 0.1 - 1.2 mg/dL Bilirubin, direct <0.2 0.1 - 0.3 mg/dL [facility] Protein, pl 6.7 6.5 - 8.5 g/dL [facility] Albumin 4.6 3.5 - 5.0 g/dL [facility] Alk phos 86 40 - 130 Units/L [facility] ALT 24 7 - 45 Units/L [facility] AST 23 10 - 45 Units/L [facility] Blood 01/18/2025 11:2 6 AM CDT 01/18/2025 3:51 PM CDT Cristi Salinas MD LAB BLOOD ORDERABLES Fin al Result Performing Organization Address [facility] Co de Phone Number [facility] [address] [place] [address] * Screening Mammogram Bilateral [place] (12/24/2021 2:23 PM CDT) Anatomical Region Laterality Modality Breast Bilateral Mammography Narrative 12/25/2021 10:39 AM CDT Mammogram Technique: Bilateral Digital Breast Tomosynthesis, Bilateral C-view 2D Screening mammogram. Views obtained: bilateral craniocaudal and bilateral mediolateral oblique. Computer Aided Detection was performed. Mammogram Findings: The present examination has been compared to prior imaging studies performed at [facility] on 09/07/2018 and 12/01/2020, and at [facility] on 11/01/2019. There are scattered areas [...] compared to prior imaging studies performed at [facility] on 09/07/2018 and 12/01/2020, and at [facility] on 11/01/2019. There are scattered areas of fibroglandular density. There is no suspicious abnormality in either breast. Impression: There is no mammographic evidence of malignancy. Annual screening mammography is recommended. OVERALL FINAL ASSESSMENT: BI-RADS CATEGORY 1: Negative. us Self Screening Mammogram IMG MAMMO PROCEDURES Fi nal Result * COLONOSCOPY (08/21/2018 3:07 PM PAPERHANGER AND PAINTER) Anatomical Region Laterality Modality Other Narrative Procedure Note Jim Shelby MD - 08/21/2018 3:07 PM CST ENDOSCOPY LAB Patient Name: Pina Reynaga Procedure Date: 08/21/2018 3:07 PM Admit Type: Outpatient Room: [facility] Date of : 1970 Instrument [...] bowel preparation was evaluated using the BBPS ([place]one Bowel Preparation Scale) with scores of: Right [...] Most Recently Relevant to Health Maintenance Insurance [id number]|2025-02-25 22:31:00|2025-02-25 22:30:00|XMS_ITS|BKG DAEMON|External Medical Summaries|[id number]|" Clinical Summary Created on: February 25, 2025 Pina Reynaga : 1970 Sex: Female Author Organization [facility] Address [address] [place] [address] Care Team Providers Care Functional Architect Name Role Phone Jonathan Amado MD Primary Care Provider [phone] Jim Shelby MD Unavailable [phone] Allergies Active Allergy Reactions Criticality Noted Date [...] 06/24/2013 Sulfasalazine Rash Medium 04/24/2012 Body aches [place] Pollen-Short Ragweed Unknown 01/28/2023 ragweed - allergy [...] Overview (10/21/2024): Postoperative complication of a CCK, 2004 SOB (shortness of breath) 10/21/2024 Unintentional weight [...] (04/21/2019): Added automatically from request for surgery [id number] Elevated CK 03/01/2019 Urticaria 03/01/2019 Memory loss [...] Team Description 02/23/2025 3:00 PM CDT Infusion [facility] Injection Therapy [facility] [facility] 5th [place] [address] [place] [address] Postmenopausal osteoporosis (Primary Dx) 01/26/2025 1:45 PM CDT Infusion [facility] Injection Therapy [address] [place] [address] 5th [place] [address] [place] [address] Postmenopausal osteoporosis (Primary Dx) 01/18/2025 3:27 PM CDT - 01/18/2025 11:59 PM CDT Hospital Encounter [address] [phone] Discharge Disposition: Discharge to home or self care 01/18/2025 12:25 PM CDT - 01/18/2025 11:59 PM CDT Hospital Encounter [facility] [address] [place] [phone] Inflammatory polyarthropathy (HCC) Discharge Disposition: Discharge to home or self care 01/13/2025 Orders Only [address] 6th [place] [address] [place] [address] Daniel Ellis MD Other amnesia (Primary Dx); Aphasia; Alzheimer's disease with early onset (HCC) 01/07/2025 Documentation [id number] [facility] [place] [address] [place] [phone] David Holland RMA from Last 3 Months Immunizations Immunization Administration Dates Next Due Influenza, Quadrivalent, Rec ombinant, Egg Free, Preservative Free, Intramuscular 08/16/2021,09/17/2019 Influenza, Quadrivalent, Spl it, Preservative Free, Intramuscular 07/23/2018 Influenza, Trivalent, Preservative Free, Intramu scular 07/25/2017 Influenza, Unspecified 07/03/2020 Pneumococcal Polysaccharide PPV23 06/29/2020,02/2012 TD Preservative Free 10/17/2011 Tdap 06/22/2018,10/29/2017 Surgical History Surgery Date Site/Laterality Comments [place] DILATION & CURETTAGE DX&/THER NONOBSTETRIC BLADDER SURGERY [...] and Family Not on file 12/13/2019 Attends [employer] Services Not on file 12/12 Active Member [...] on file Legal Sex Female 9:51 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 Gender Identity Not on file Sexual Orientation [...] Comments Blood Pressure 133/90 10/26/2024 9:59 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 Pulse 59 10/26/2024 9:59 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 Temperature 36.7 C (98 F) 07/08/2019 4:21 PM CDT Respiratory Rate 16 06/16/2019 8:30 PM CDT Oxygen Saturation 95% 06/16/2019 8:30 PM CDT Inhaled Oxygen Concentration - - Weight 73.5 kg (162 lb) 10/26/2024 9:59 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 Height 159.3 cm (5' 2.7 ) 10/26/2024 9:59 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 Body Mass Index 28.97 10/26/2024 9:59 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 Plan of Treatment Health Maintenance Due Date Last Done Comments Depression Screening 1970 Hepatitis C Screening 1970 Hepatitis B Screening 1989 Zoster Vaccine (1 of 2) 1990 Pneumococcal vaccine <65 (3 of 3 - PCV) 06/29/2021 06/29/2020, 10/17/2011 Breast Cancer Screening-Mammogram 12/24/2022 12/24/2021, 12/01/2020, 11/01/2019, Additional history exists Covid-19 Vaccine (2023-2 5 season) 2024 07/17/2021, 12/29/2020, 12/08/2020 Influenza Vaccine (Season Ended) 2025 08/16/2021, 07/03/2020, 09/17/2019, Additional history exists Regular Well Visit/Exam 18-64 10/26/2025, 07/17/2022, 07/03/2020, Additional history exists DTaP/Tdap/Td Vaccine (3 - Td or Tdap) 06/22/2028 06/22/2018, 10/29/2017, 10/17/2011 Colon Cancer Screening-Colonoscopy 08/21/20282017, 10/31/2014 Medical Devices Explanted Type Area Processes Chemical Design Engineer Device Identifier Shelf Expiration Date Model / Serial / Lot [employer] 6571 Rojo Flexi-Stent 7fr 3cm Small Pigtail Flexible .035in Stent - [id number] Implanted:Qty: 1 on 04/19/2019 by Jim Shelby MD at [facility] Explanted:Qty: 1 on 04/21/2019 at [facility] Stent Pancreas [employer] 11/12/2023 657 / [id number] Conmed Tracie [id number] [place] Viabil 10mm 8.5fr 6cm 200cm Fully Covered Self Expand Pull - [id number] - [id number] Implanted:Qty: 1 on 04/19/2019 by Jim Shelby MD at [facility] Explanted:Qty: 1 on 04/21/2019 at [facility] Stent Bile Duct Conmed Tracie 12/21/2021 [id number] / [id number] / Procedures Procedure Name Priority Date/Time Associated [...] mammogram, encounter for COLONOSCOPY 08/21/2018 3:07 PM PAPERHANGER AND PAINTER from Last 3 Months or Most Recently [...] unremarkable. Electronically signed by: Deny Simeon MD us Cristi Salinas MD IMG XR PROCEDURES Final [...] MD LAB BLOOD ORDERABLES Fin al Result [facility] [address] [place] [address] * Differential, auto (01/18/2025 11:26 AM CDT) Neutrophil abs 2.29 1.50 - 6.50 K/cumm Imm gran abs 0.01 0.00 - 0.10 K/cumm [facility] Lymphocyte abs 1.55 0.80 - 3.30 K/cumm [facility] Monocyte abs 0.33 0.20 - 0.80 K/cumm [facility] Eosinophil abs 0.15 0.00 - 0.50 K/cumm [facility] Basophil abs 0.03 0.00 - 0.10 K/cumm [facility] Neutrophil pct 52.5 % [facility] Comment: Interpretive Data Percent cell count reference ranges are not reported, since discordance with absolute values may lead to misinterpretation of CBC data. Current Interpretive Data was last revised on 2018. Imm gran pct 0.2 % [facility] Comment: Interpretive Data Percent cell count reference ranges are not reported, since discordance with absolute values may lead to misinterpretation of CBC data. Current Interpretive Data was last revised on 2018. Lymphocyte pct 35.6 % [facility] Comment: Interpretive Data Percent cell count reference ranges are not reported, since discordance with absolute values may lead to misinterpretation of CBC data. Current Interpretive Data was last revised on 2018. Monocyte pct 7.6 % [facility] Comment: Interpretive Data Percent cell count reference ranges are not reported, since discordance with absolute values may lead to misinterpretation of CBC data. Current Interpretive Data was last revised on 2018. Eosinophil pct 3.4 % [facility] Comment: Interpretive Data Percent cell count reference ranges are not reported, since discordance with absolute values may lead to misinterpretation of CBC data. Current Interpretive Data was last revised on 2018. Basophil pct 0.7 % [facility] Comment: Interpretive Data Percent cell count reference ranges are not reported, since discordance with absolute values may lead to misinterpretation of CBC data. Current Interpretive Data was last revised on 2018. Blood 01/18/2025 11:2 6 AM CDT 01/18/2025 3:51 PM CDT Cristi Salinas MD LAB BLOOD ORDERABLES Fin al Result Performing Organization Address [facility] Co de Phone Number [facility] [address] Department [place] [address] * TB test, quantiferon gold (01/18/2025 11:26 AM CDT) [facility] Quantiferon TB Gold Negative Negative [place] [facility] Comment: No interferon-gamma response to M. tuberculosis antigens was detected. Latent infection with M. tuberculosis is unlikely. A single negative result does not exclude infection with M. tuberculosis. In patients at high risk for M.tuberculosis infection, a second test should be considered in accordance with the 2017 ATS/IDSA/CDC Clinical Practice Guidelines for Diagnosis of Tuberculosis in Adults and Children [Gustavoinsyunior DM et. al. Clin. Infect. Dis. 2017;64(2):111-115]. The reference range for the 'TB1 Ag minus Nil Result' and 'TB2 Ag minus Nil Result' is an Interferon-gamma level <0.35 IU/mL. TB-Nil 0.01 IUnits/mL [facility] TB2-Nil 0.00 IUnits/mL [facility] Mitogen-Nil 9.98 IUnits/mL [facility] NIL 0.02 IUnits/mL [facility] Comment: Test Performed by: [address] [address] Audio/Visual Operator: Denis Hawkins Ph.D.; CLIA# [id number] Blood 01/18/2025 11:2 6 AM CDT 01/18/2025 4:35 PM CDT us Cristi Salinas MD LAB BLOOD ORDERABLES Fin al Result Performing Organization Address [facility] Co de Phone Number [facility] [address] [place] [address] [place] [facility] * CBC with auto differential (01/18/2025 11:26 AM CDT) [facility] WBC 4.36 3.80 - 9.90 K/cumm Hgb 14.8 11.9 - 15.5 g/dL [facility] Hct 44.5 35.6 - 45.5 % [facility] Plt 197 150 - 400 K/cumm [facility] MPV 11.7 9.1 - 12.3 fL [facility] RBC 4.85 3.90 - 5.20 M/cumm [facility] MCV 91.8 81.3 - 96.4 fL [facility] MCH 30.5 27.1 - 33.3 pg [facility] MCHC 33.3 32.3 - 35.7 g/dL [facility] RDW CV 12.5 11.1 - 14.9 % [facility] RDW SD 41.9 35.7 - 48.1 fL [facility] NRBC abs 0.00 0.00 - 0.01 K/cumm [facility] Blood 01/18/2025 11:2 6 AM CDT 01/18/2025 3:51 PM CDT us Cristi Salinas MD LAB BLOOD ORDERABLES Fin al Result [facility] [address] [place] [address] * Cyclic citrul peptide antibody, IgG (01/18/2025 11:26 AM CDT) [facility] CCP Ab <0.5 <=2.9 units/mL Comment: Interpretive data Negative: <3 units/mL Positive: > or equal to 3 units/mL Current interpretive data was last revised on 2017. Testing performed by: [facility], [address] [facility], [place]., [address] Blood 01/18/2025 11:2 6 AM CDT 01/18/2025 7:05 PM CDT us Cristi Salinas MD LAB BLOOD ORDERABLES Fin al Result Performing Organization Address [facility] Co de Phone Number [facility] [address] [facility] [place] [address] * Erythrocyte sedimentation rate (01/18/2025 11:26 AM CDT) Erythrocyte sedimentation rate 6 1 - 30 mm/hr Blood 01/18/2025 11:2 6 AM CDT 01/18/2025 3:51 PM CDT Cristi Salinas MD LAB BLOOD ORDERABLES Fin al Result Performing Organization Address [facility] de Phone Number [facility] [address] [facility] [place] [address] * Rheumatoid factor (01/18/2025 11:26 AM CDT) Rheumatoid factor, quant <10 <=15 IUnits/mL Blood 01/18/2025 11:2 6 AM CDT 01/18/2025 3:51 PM CDT Cristi Salinas MD LAB BLOOD ORDERABLES Fin al Result Performing Organization Address [facility] Co de Phone Number [facility] [address] [facility] [place] [address] * CRP (acute phase) (01/18/2025 11:26 AM CDT) CRP <3.0 <=10.0 mg/L Blood 01/18/2025 11:2 6 AM CDT 01/18/2025 3:51 PM CDT Cristi Salinas MD LAB BLOOD ORDERABLES Fin al Result Performing Organization Address City/[facility] Co de Phone Number [facility] [address] [place] [address] * Creatinine (01/18/2025 11:26 AM CDT) Pathologist [facility] Creatinine 0.72 0.60 - 1.10 mg/dL Blood 01/18/2025 11:2 6 AM CDT 01/18/2025 3:51 PM CDT Cristi Salinas MD LAB BLOOD ORDERABLES Fin al Result [facility] [address] [place] [address] * Hepatic function panel (01/18/2025 11:26 AM CDT) Pathologist [facility] Bilirubin, total 0.5 0.1 - 1.2 mg/dL Bilirubin, direct <0.2 0.1 - 0.3 mg/dL [facility] Protein, pl 6.7 6.5 - 8.5 g/dL [facility] Albumin 4.6 3.5 - 5.0 g/dL [facility] Alk phos 86 40 - 130 Units/L [facility] ALT 24 7 - 45 Units/L [facility] AST
--- OUTSIDE RECORDS SUMMARY | 2025-02-25 22:30 | XMS_ITS | Clinical Summary ---
Author Organization 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
--- OUTSIDE RECORDS SUMMARY | 2025-02-25 22:31 | XMS_ITS | Clinical Summary ---
Author Organization [facility] Address [address] [place] [address] Care Team Providers Care Manager Route Name Role Phone Unavailable Primary Care Provider [...]
--- OUTSIDE RECORDS SUMMARY | 2025-02-25 22:31 | XMS_ITS | Clinical Summary ---
Author Organization [facility] Address [address] [place] [address] Care Team Providers Care Clipper And Turner Name Role Phone Jonathan Amado MD Unavailable [phone] Jonathan Amado MD Primary Care Provider [phone] [facility],non-owned Affiliates and Associated Physician Practices is amultiple site organization consisting of ambulatory clinics and hospital sitesin [place], [place], [place] and [place]. This disclosure is being madepursuant to the Care Everywhere program and may not contain all information available regarding this patient. Last updated 18.[facility] Allergies Active Allergy Reactions Criticality Noted Date [...] fluticasone propionate (FLONASE) 50 MCG/ACT nasal spray [place] 2 (two) sprays into each nostril once daily Active ergocalciferol (DRISDOL) 1.25 MG (93113 UT) capsule Take 1 (one) capsule by [...] Active azelastine (Astepro) 205.5 MCG/SPRAY nasal spray [place] 2 (two) sprays into each nostril 2 times daily 90 mL 4 3 Active ibandronate (Boniva) 150 MG tablet Take 1 (one) tablet by mouth every 30 days 4 Active FLUoxetine (PROzac) 20 MG capsule Take 1 (one) capsule by mouth once daily 4 Active allergy injection Per [facility] Otolaryngology protocol Active fexofenadine (Cassie) 180 MG tablet Take 1 (one) tablet by mouth once daily Active Vitamin D, Ergocalciferol , 45798 units CAPS Take 1 (one) capsule by [...] Description 02/22/2025 3:40 PM CDT Clinical Support [facility] - [facility] [address] [place] [phone] Allergic rhinitis due to pollen, unspecified seasonality 02/22/2025 Travel 02/08/2025 3:20 PM CDT Clinical [facility] [address] [place] [phone] Allergic rhinitis due to pollen, unspecified seasonality 02/08/2025 Travel 02/01/2025 3:20 PM CDT Clinical Support [facility] [address] [place] [phone] Allergic rhinitis due to pollen, unspecified seasonality 02/01/2025 Travel 01/25/2025 3:20 PM CDT Clinical Support [facility] [address] [place] [phone] Allergic rhinitis due to pollen, unspecified seasonality 01/25/2025 Travel 01/18/2025 1:40 PM CDT Clinical Support [facility] [address] [place] [phone] Allergic rhinitis due to pollen, unspecified seasonality 01/18/2025 Travel 01/11/2025 1:00 PM CDT Clinical Support [facility] [address] [place] [phone] Allergic rhinitis due to pollen, unspecified seasonality 01/11/2025 Travel 01/04/2025 1:00 PM CDT Clinical Support [facility] [address] [place] [phone] Allergic rhinitis due to pollen, unspecified seasonality 01/04/2025 Travel 12/28/2024 1:00 PM CDT Clinical Support [facility] [address] [place] [phone] Allergic rhinitis due to pollen, unspecified seasonality 12/28/2024 Travel 12/21/2024 1:00 PM CDT Clinical Support [facility] [address] [place] [phone] Allergic rhinitis due to pollen, unspecified seasonality 12/21/2024 Travel 12/15/2024 Refill [facility] [address] [place] [phone] Grupo Brice MD MEDICATION REFILL 12/13/2024 3:40 PM HOSPITAL ADMINISTRATOR Clinical Support [facility] [address] [place] [phone] Allergic rhinitis due to pollen, unspecified seasonality 12/13/2024 Travel 12/07/2024 3:40 PM HOSPITAL ADMINISTRATOR Clinical Support [facility] [address] [place] [phone] Allergic rhinitis due to pollen, unspecified seasonality [...] 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 Not on file [...] Support [facility] [address] [place] [phone] 03/08/2025 3:40 PM CDT Clinical Support [facility] [address] [place] [phone] 03/15/2025 3:40 PM CDT Clinical Support [facility] [address] [place] [phone] 03/22/2025 3:40 PM CDT Clinical Support [facility] [address] [place] [phone] 03/29/2025 3:40 PM CDT Clinical Support [facility] [address] [place] [address] 04/05/2025 3:40 PM CDT Clinical Support [facility] [address] [place] [phone] Health Maintenance Due Date Last Done Comments [...] Resulting Agency Comment Lab Testing performed at: [address] [id number] [facility] Jerry ONEIL LAB - CHEMISTRY ORDERABLES Fi nal Result Performing Organization Address [facility] de Phone Number [facility] INSURANCE BILL [address] [place] [address] * HEPATITIS C ANTIBODY (02/05/2016 11:21 AM CDT) [facility] Hepatitis C Virus Antibody <0.1 0.0 - 0.9 s/co ratio [facility] ([facility]) Comment: Negative: < 0.8 Indeterminate: 0.8 - 0.9 Positive: > 0.9 The CDC recommends that a positive HCV antibody result be followed up with a HCV Nucleic Acid Amplification test (166870). Blood specimen (specimen) BLOOD SPECIMEN / Unknown 02/05/2016 11:21 AM CDT 02/05/2016 4:02 PM CDT Narrative [facility] ([facility]) - 02/13/2016 11:20 AM CDT Performed at: [address] [place] [id number] Capital Campaign Fundraiser: Darwin Hunter PhD, Phone: [phone] Sarika Edwards MD LAB - CHEMISTRY ORDERABLES Ed ited Result - Final Performing Organization Address [facility]/State/ZIP Co de Phone Number [facility]) [address] [place] [address], [facility] from Last 3 Months or Most Recently Relevant to Health Maintenance Insurance [employer]THEM Care Teams Clipper And Turner Relationship Specialty Start Date End Date Jonathan Amado MD [address] [place] [phone] PCP - General Family Medicine 09/15/23 Jonathan Amado MD [address] [place] [phone] 06/24/13
--- OUTSIDE RECORDS SUMMARY | 2025-02-25 22:31 | XMS_ITS | Encounter Summary ---
Author Organization [facility] Address [address] 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
--- OUTSIDE RECORDS SUMMARY | 2025-02-25 22:31 | XMS_ITS | Encounter Summary ---
Author Organization [facility] Address [address] [facility] [address] Phone Care Team Providers Care Certified Caregiver Name Role Phone Jonathan Amado MD Primary Care Provider [phone] Jim Shelby MD Unavailable [phone] Encounter Details Date Type Department Care Team (Late st Contact Info) Description 07/16/2021 Orders Only [facility] Scanning, Provider Social History [...] and Family Not on file 12/13/2019 Attends Orthodox Services Not on file 12/12 Active [...] on file 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
--- NOTE | 2025-02-25 23:48 | ED.FEMALEGU ---
HPI - Female Genitourinary General Chief complaint: Urogenital-Female Stated complaint: Back pain, pain with urination -UTI 1.5 wks ago Time Seen by Provider: 02/25/25 22:03 Source: patient Mode of arrival: ambulatory Limitations: no limitations History of Present Illness HPI Narrative: Patient is a 54-year-old female, with past medical history of early dementia per records, psychiatric illness, who presents to the ED with c/o right flank pain and urinary complaints. Patient reports history of frequent UTIs. at bedside assisted in providing information. Reports she has been having urinary frequency, urgency, dysuria, right flank pain intermittently for the past 2 weeks, worsening. Patient has not taken anything for pain today. Reports intermittent nausea, denies vomiting. Denies fevers. Denies hematuria. Denies history of kidney stones. Related Data Home Medications Medication Instructions Recorded Confirmed Last Taken Type epinephrine 0.3 mg/0.3 mL subcut 01/07/24 01/07/24 Unknown History injection, auto-injector ergocalciferol (vitamin D2) 1,250 PO 10/21/24 Unknown History mcg (50,000 unit) capsule leflunomide 20 mg tablet mg PO 10/21/24 Unknown History Allergies Allergy/AdvReac Type Severity Reaction Status Date / Time ibandronate sodium Allergy Severe esophagitis Verified 10/21/24 13:22 prochlorperazine Allergy Severe Anxiety Verified 10/21/24 13:22 doxycycline Allergy Intermediate mus Verified 10/21/24 13:22 ciprofloxacin Allergy Mild MUSCLE Verified 10/21/24 13:22 ACHES iodine Allergy Mild Unknown Verified 10/21/24 13:22 morphine Allergy Mild N/V Verified 10/21/24 13:22 Quinolones Allergy Mild Unknown Verified 10/21/24 13:22 tetracycline Allergy Mild MUSCLE ACHS Verified 10/21/24 13:22 promethazine Allergy Unknown Unknown Verified 10/21/24 13:22 sulfamethoxazole Allergy Unknown Unknown Verified 10/21/24 13:22 trimethoprim Allergy Unknown Unknown Verified 10/21/24 13:22 Contrast Media Allergy Severe IVP DYE Uncoded 10/21/24 13:22 CAUSES RESPIRATORY DISTRESS Review of Systems Review of Systems: All systems reviewed & are unremarkable except as noted in HPI. 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 Raynaud's syndrome Selective deficiency of immunoglobulin a [iga] Unspecified vitamin D deficiency Surgical History Surgical History Hx of tonsillectomy H/O sinus surgery History of bladder surgery History of hysterectomy Hx of cholecystectomy H/O rectal sphincterotomy History of ERCP x2 Family History Family History Mother Family history of osteoporosis Hypertension Family history of arthritis Depression Family history of psoriasis Grandparent Family history of osteoporosis Hypertension Family history of malignant neoplasm Family history of chronic obstructive pulmonary disease Family history of Alzheimer's disease Family history of glaucoma Cerebrovascular accident Family history of malignant neoplasm of breast Family history of lymphoma Family history of malignant neoplasm of ovary Father Hypertension Asthma Other Family history of migraine headaches Social History Social History Smoking status: Never smoker Alcohol intake: never Substance use: never Lack of Transportation: No Lack of Food: Never True Current Housing: I Have Housing Concerned About Future Housing: No Difficulty Paying Gas/Electric Bills: No Difficulty Paying for Meds: No Currently Unemployed: No Gender identity (if verbalized by the patient): Female Exam Narrative: GENERAL: Well appearing, well-nourished, non-toxic, in no acute distress. HEAD: Normocephalic, atraumatic. RESPIRATORY: Airway patent, respirations nonlabored. Clear to auscultation bilaterally, no rales, rhonchi, wheezing. CARDIOVASCULAR: Regular rate and rhythm without murmurs, rubs, or gallops. ABDOMINAL: Soft, mild tenderness in suprapubic region, right lower quadrant, nondistended. Normoactive BS. Positive CVA tenderness on right. MUSCULOSKELETAL: Moves all extremities. No gross deformities. SKIN: Warm, dry, normal color. NEURO: A&O X3. Speech clear. PSYCHIATRIC: Flat affect. Somewhat anxious. Normal interaction. Course Vital Signs Vital signs: Vital Signs Temperature 98.3 F 02/25/25 20:27 Pulse Rate 72 02/25/25 20:27 Respiratory Rate 16 02/25/25 20:27 Blood Pressure 139/74 02/25/25 20:27 Pulse Oximetry 99 02/25/25 20:27 Oxygen Delivery Room Air 02/25/25 20:27 Temperature 98.3 F 02/25/25 20:27 Pulse Rate 72 02/25/25 20:27 Respiratory Rate 16 02/25/25 20: Blood Pressure 139/74 02/25/25 20:27 Pulse Oximetry 99 02/25/25 20:27 Oxygen Delivery Room Air 02/25/25 20:27 MDM - Female Genitourinary MDM Narrative Medical decision making narrative: Patient presented to ED with urinary complaints, right flank pain. History of frequent UTIs. Vital signs stable upon arrival. Patient in no acute distress. Laboratory studies are fairly unremarkable. No leukocytosis or anemia. CMP with stable electrolytes, stable kidney function. UA does appear consistent with infection, 2+ leuk esterase, greater than 100 WBC. Sent for culture. Will treat. No previous positive cultures to compare to. Given dose of Rocephin in the ED. CT scan of abdomen/pelvis was obtained and without evidence of ureterolithiasis, no other significant findings. Patient updated on lab and imaging findings. She has remained stable throughout ED stay. Will discharge on Keflex. Will refer to Urology given history of frequent UTIs. She does report she has seen Dr. Sarah in the past. Discussed strict return precautions. Patient voiced understanding. Feels comfortable going home. Discharged in stable condition. Medical Records Attestation: I reviewed the patient's medical records. Lab Data Attestation: I reviewed the patient's lab results. 02/25/25 21:52 02/25/25 21:52 Labs: Lab Results 02/25/25 02/25/25 Range/Units 21:52 22:07 WBC 5.0 (4.5-10.0) K/mm3 RBC 4.65 (4.2-5.4) M/mm3 Hgb 14.1 (12.0-15.0) g/dL Hct 42.1 (37.0-47.0) % MCV 90.5 (80-100) fl MCH 30.3 (26-34) pg MCHC 33.5 (32-36) g/dl RDW 12.4 (11.5-14.5) % Plt Count 171 (150-375) k/mm3 MPV 11.4 H (7.4-10.4) fl Immature Gran % (Auto) 0.2 (0-0.5) % Neut % (Auto) 43.7 L (45.5-73.1) % Lymph % (Auto) 42.5 (18.3-44.2) % [place] % (Auto) 8.4 (2.6-8.5) % Eos % (Auto) 4.6 H (0-4.4) % Baso % (Auto) 0.6 (0.2-1.2) % Lymph # (Auto) 2.13 (0.9-3.2) K/mm3 [place] # (Auto) 0.4 (0.1-0.6) K/mm3 Eos # (Auto) 0.2 (0-0.3) K/mm3 Baso # (Auto) 0.0 (0.0-0.1) K/mm3 Abs Immat Gran (auto) 0.01 (0.00-0.031) K/mm3 Absolute Neuts (auto) 2.2 (1.3-6.7) K/mm3 Absolute Nucleated RBC 0.000 (0.0-0.012) K/mm3 Nucleated RBC % 0.0 (0.0-0.2) % Sodium 138 (137-145) mmol/L Potassium 3.7 (3.4-5.0) mmol/L Chloride 105 (98-107) mmol/L Carbon Dioxide 27 (22-30) mmol/L Anion Gap 6 (4-12) mmol/L BUN 15 (7-17) mg/dL Creatinine 0.65 L (0.7-1.0) mg/dL Estim Creat Clear Calc 83 ml/min Estimated GFR > 60 (59 - ) Glucose 90 (65-110) mg/dL Calcium 8.9 (8.4-10.2) mg/dL Total Bilirubin 0.8 (0.2-1.3) mg/dL AST 36 (14-36) U/L ALT 26 (6-35) U/L Alkaline Phosphatase 109 (38-126) U/L Total Protein 7.0 (6.3-8.2) g/dL Albumin 4.3 (3.5-5.1) g/dL Lipase 71 (23-300) U/L Urine Color Yellow (Yellow) Urine Appearance Cloudy H (Clear) Urine pH 6.0 (5.0-9.0) Ur Specific [place] 1.029 (1.001-1.035) Urine Protein Trace (Negative) mg/dL Urine Glucose (UA) Negative (Negative) mg/dL Urine Ketones Trace H (Negative) mg/dL Ur Blood (Man) Trace (Negative) Urine Nitrate Negative (Negative) Urine Bilirubin Negative (Negative) Urine Urobilinogen 1.0 (<2.0) mg/dL Leukocyte Esterase Rfl 2+ H (Negative) ANABEL/UL Urine RBC 0-2 (0-2) /hpf Urine WBC >100 H (0-3) /hpf Ur Squamous Epith Cells None seen (Few) /hpf Urine Bacteria None seen /hpf Urine Casts 0-2 Imaging Data Attestation: I personally reviewed and interpreted this imaging study as follows: Radiologist's impression: ITS Impressions Abdomen/Pelvis CT 02/26/25 00:49 IMPRESSION: 1. No evidence of appendicitis, diverticulitis or intestinal obstruction. 2. No renal stones seen. 3. Constipation. Discharge Plan Discharge Clinical Impression: Right flank pain UTI (urinary tract infection) Qualifiers: Urinary tract infection type: acute cystitis Hematuria presence: without hematuria Qualified Code(s): N30.00 - Acute cystitis without hematuria Patient Disposition: Home Condition: Stable Instructions: Antibiotic Form, Urinary Tract Infection in Women (ED), Flank Pain (ED) Additional Instructions: Take antibiotics as prescribed for urinary tract infection. Stay well hydrated. Continue Tylenol and ibuprofen as needed for pain. Follow-up with urology for further evaluation of frequent UTIs. Return to the ED if you experience worsening or severe pain, difficulty urinating, blood in urine, unable to keep down food or drink, persistent fevers, or any other symptoms of concern. Patient Language: Icelandic Prescriptions: New cephalexin 500 mg capsule 500 mg PO Q6H 7 Days Qty: 28 0RF No Action epinephrine 0.3 mg/0.3 mL auto-injector subcut fluoxetine [Prozac] 20 mg capsule 20 mg PO DAILY Qty: 90 0RF ergocalciferol (vitamin D2) 1,250 mcg (50,000 unit) capsule PO leflunomide 20 mg tablet PO cefpodoxime 200 mg tablet 200 mg PO BID Qty: 20 0RF Rx Instructions: must administer with a meal/food Follow-up/Referrals: Sulaiman Hodge MD [Physician] - (UROLOGY) Jonathan Amado MD [Primary Care Provider] - Time of Disposition: 01:40
[2025-02-26] MEDS: SODIUM CHLORIDE 0.9% IV 1,000 ML 999 ML IV CONT (00:08)
[2025-02-26] MEDS: ACETAMINOPHEN 500 MG TABLET 1000 MG PO (00:09)
== END 2025-02-26 01:51 | disposition home or self-care (01) ==
PROVIDERS: Student in an Organized Health Care Education/Training Program; Emergency Provider Physician Assistant; PCP Family Medicine
DX: N30.00 Acute cystitis without hematuria (principal); F03.90 Unspecified dementia, unspecified severity, without behavioral disturbance, psychotic disturbance, mood disturbance, and anxiety; M81.0 Age-related osteoporosis without current pathological fracture; E55.9 Vitamin D deficiency, unspecified
CPT/HCPCS: 36415; 74176; 80053; 81001; 83690; 85025; 87086; 96365; 99284; A9270; J0696; J7030

== ENCOUNTER 2025-04-29 13:21 | Emergency (ER) | payer BC, SELFPAY ==
--- NOTE | ~2025-04-29 | US_ITS ---
EXAMINATION: US venous doppler [facility] DATE: 04/29/2025 18:59 INDICATION: SWELLING . TECHNIQUE: Grayscale images without and with compression and Doppler images of the bilateral lower ex tremity veins were obtained. COMPARISON: None FINDINGS: The right common femoral vein, profunda (deep) femoral vein, femoral vein, popliteal vein, peroneal v ein, posterior tibial veins, and greater saphenous vein are patent. The left common femoral vein, profunda (deep) femoral vein, femoral vein, popliteal vein, peroneal v ein, posterior tibial veins, and greater saphenous vein are patent. IMPRESSION: Patent bilateral lower extremity veins. No evidence of deep venous thrombosis. Reviewed, dictated and finalized at location K.
--- NOTE | ~2025-04-29 | CT_ITS ---
CT abdomen pelvis wo con Ordering provider: Haydee Downey History: 55 years Female with . RUQ , LLQ pain, occ N/V . Comparison: February 25, 2025 Technique: CT abdomen and pelvis without IV and without oral contrast. Automated exposure control and iterative reconstruction technique were employed. The dose-length product was 362.34 mGy-cm. Findings: VISUALIZED LOWER CHEST: Normal. UPPER ABDOMINAL ORGANS: Liver: Pneumobilia. Gallbladder: Normal. Status post cholecystectomy.. Stomach/duodenum: Normal. Pancreas: Normal. Adrenals: Normal. Kidneys: Normal. PELVIC ORGANS: The bladder is normal. BOWEL AND MESENTERY: Colon: No evidence of diverticulitis. Fecal material is loaded in the colon. Is normal anatomy: No ev idence of appendicitis.. Small Bowel: Normal. No obstruction. Peritoneum/mesentery: No free air or free fluid. No mesenteric lymphadenopathy. RETROPERITONEUM: Normal aorta. No retroperitoneal lymphadenopathy. MUSCULOSKELETAL: Superficial soft tissues: The superficial soft tissues are normal. Bones: Normal spine. . Pubic symphysitis. Bilateral hip osteoarthritic changes. IMPRESSION: 1. No evidence of appendicitis, diverticulitis or intestinal obstruction. Appendix is not demonstrat ed. 2. Pneumobilia. 3. Constipation Reviewed, dictated and finalized at location A. IMPRESSION: 1. No evidence of appendicitis, diverticulitis or intestinal obstruction. Appe ndix is not demonstrated. 2. Pneumobilia. 3. Constipation
[2025-04-29 13:22] VITALS: BP 144/97; PULSE 81; RESP 18; TEMP 36.4; O2SAT 100
--- OUTSIDE RECORDS SUMMARY | 2025-04-29 13:23 | XMS_ITS | Patient Health Record ---
Author Organization [facility] [address] [facility] Address [address] [place] [address] Care Team Providers Care Tug Master Name Role Phone Wai Vasquez Unavailable [phone] Reason For Referral No Information Medications Medication SIG (Take, Route, Frequency, Duration) Notes Start Date End Date Status EPINEPHrine 0.3 MG/0.3ML Injection 02/05/2024 Active Plan Of Treatment No Information Insurance Providers Payer Name Payer Address Payer Phone Subscriber Number Group Number Insured Name Patient Relationship to Insured Coverage Start Date Coverage End Date [place] [employer] [employer] [address] [place] [address] [id number] BUD ROCHE JR Spouse - patient is the spouse of the insured Medical (General) History Surgical History Surgery Date(Month/Year) Removal of gallbladder (42488) Other Hysterectomy (40097)
--- OUTSIDE RECORDS SUMMARY | 2025-04-29 13:24 | XMS_ITS ---
Author Organization [facility] j[facility]ana Address [address] [place] [address] Care Team Providers Care Counter Tacker Name Role Phone Jonathan Amado MD Primary Care Provider Cristi Powers [phone] Allergies Allergen (clinical drug ingredient) Drug/Non Drug Allergy documented on EMR Reaction Allergy Type Onset Date Status ciprofloxacin Cipro Unknown Drug Allergy 07/16/2021 Ac tive Ciprofloxacin Unknown Drug Allergy 07/16/2021 Ac tive REASON FOR VISIT rmd,f/u,cc Encounters Encounter Location Date Provider Diagnosis [facility] [address] [place] [address] 07/16/2024 Cristi Foss Inflammatory polyarthropathy M06.4 ; Pain in unspecified joint M25.50 ; Anesthesia of skin R20.0 and Other cattle 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 (current) drug therapy Z79.899 Assessments Encounter Date Diagnosis (ICD Code) Assessment Notes Treatment Notes Treatment Clinical Notes Section Notes 07/16/2024 Inflammatory polyarthropathy (ICD-10 - M06.4) 07/16/2024 Pain in unspecified joint (ICD-10 - M25.50) 07/16/2024 Anesthesia of skin (ICD-10 - R20.0) 07/16/2024 Other cattle 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 (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 O ther cattle tester (current) drug therapy - Z79.899 Plan: * Treatment: * Procedure Codes: G 2211 Complex e/m visit add on * Follow Up: 3 Months * Billing Information: * Visit Code: 65319 Office Visit, Est Pt., Level 4. * Procedure Codes: G2211 Complex e/m visit add on. * Electronic signature of Curt Foss MD on 04/29/2025 at 01:24 PM CDT Sign off status: Pending * Appointment Provider: Edd Foss MD Date: Generated for Printing/Faxing/eTransmitting on: 0 04/29/2025 01:24 PM CDT History and Physical Notes * [...]
--- OUTSIDE RECORDS SUMMARY | 2025-04-29 13:24 | XMS_ITS | Encounter Summary ---
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
--- OUTSIDE RECORDS SUMMARY | 2025-04-29 13:24 | XMS_ITS | Referral Summary ---
Author Organization [facility] Address [address] [place] [address] Care Team Providers Care Hazmat Tanker Driver Name Role Phone Jonathan Amado MD Primary Care Provider [phone] Jim Shelby MD Unavailable [phone] Encounters Date Type Department Care Team Description 04/22/2025 Telephone [facility] Memory Diagnostic [address] [facility] First Floor [address] [place] [address] Alexis Palma, CASHIER OFFICE 04/19/2025 Telephone [facility] Memory Diagnostic [address] [facility] First Floor [address] [place] [address] Alexis Palma, CASHIER OFFICE 04/18/2025 3:15 PM CDT Office Visit [facility] Diagnostic [address] 6th [place] [address] [place] [phone] Meg Coleman PA Primary progressive aphasia (HCC) (Primary Dx); Alzheimer's disease (HCC) 03/11/2025 Telephone [facility] Bone Health [address] [facility] Office Building [address] [place] [address] Bryant Yun MD 02/23/2025 3:00 PM CDT Infusion [facility] Injection Therapy [address] [place] [address] 5th [place] [address] [place] [address] Postmenopausal osteoporosis (Primary Dx) from Last 3 Months Allergies [...] 06/24/2013 Sulfasalazine Rash Medium 04/24/2012 Body aches [place] Pollen-Short Ragweed Unknown 01/28/2023 ragweed - allergy Medications cetirizine (ZyrTEC) 10 mg tablet Take 1 tablet (10 mg total) by mouth daily Active acetaminophen (TYLENOL) 325 mg tablet Take 2 tablets (650 mg total) by mouth every 8 (eight) hours 30 tablet 9 Active Additional Information Patient not taking.Reported on 04/18/2025 tobramycin, bulk, 900 mcg/mg (not less than, LONG TERM) powder Add 1 capsule of 20mg to [...] (04/21/2019): Added automatically from request for surgery [id number] Elevated CK 03/01/2019 Urticaria 03/01/2019 Memory loss [...] and Family Not on file 12/13/2019 Attends [employer] Services Not on file 12/12 Active Member [...] on file Legal Sex Female 9:51 AM RN MOBILE Gender Identity Not on file Sexual Orientation Not on file Last Filed Vital Signs Vital Sign Reading Time Taken Comments Blood Pressure 131/84 04/18/2025 2:51 PM CDT Pulse 70 04/18/2025 2:51 PM CDT Temperature 36.7 C (98 F) 07/08/2019 4:21 PM CDT Respiratory Rate 16 06/16/2019 8:30 PM CDT Oxygen Saturation 95% 06/16/2019 8:30 PM CDT Inhaled Oxygen Concentration - - Weight 70.8 kg (156 lb) 04/18/2025 2:51 PM CDT Height 157.5 cm (5' 2) 04/18/2025 2:51 PM CDT Body Mass Index 28.53 04/18/2025 2:51 PM CDT Plan of Treatment Not on file Medical Devices Explanted Type Area Aircraft Communicator Device Identifier Shelf Expiration Date Model / Serial / Lot [employer] 6571 Rojo Flexi-Stent 7fr 3cm Small Pigtail Flexible .035in Stent - [id number] Implanted:Qty: 1 on 04/19/2019 by Jim Shelby MD at [facility] Explanted:Qty: 1 on 04/21/2019 at [facility] Stent Pancreas [employer] 11/12/2023 657 1 / / [id number] Syapse [id number] [place] Viabil 10mm 8.5fr 6cm 200cm Fully Covered Self Expand Pull - [id number] - [id number] Implanted:Qty: 1 on 04/19/2019 by Jim Shelby MD at [facility] Explanted:Qty: 1 on 04/21/2019 at [facility] Stent Bile Duct Conmed Tracie 12/21/2021 [id number] / [id number] / Procedures Procedure Name Priority Date/Time Associated Diagnosis Comments SCREENING MAMMOGRAM BILATERAL W LEDA Schedule Routine, Read Routine (OP Routine) 12/24/2021 2:23 PM CDT Screening mammogram, encounter for COLONOSCOPY 08/21/2018 3:07 PM RN MOBILE from Last 3 Months or Most Recently Relevant to Health Maintenance Results * Screening Mammogram Bilateral W Leda (12/24/2021 2:23 PM CDT) Anatomical Region Laterality Modality Breast Bilateral Mammography Narrative 12/25/2021 10:39 AM CDT Mammogram Technique: Bilateral Digital Breast Tomosynthesis, Bilateral C-view 2D Screening mammogram. Views obtained: bilateral craniocaudal and bilateral mediolateral oblique. Computer Aided Detection was performed. Mammogram Findings: The present examination has been compared to prior imaging studies performed at [facility] on 09/07/2018 and 12/01/2020, and at [facility] on 11/01/2019. There are scattered areas [...] compared to prior imaging studies performed at [facility] on 09/07/2018 and 12/01/2020, and at [facility] on 11/01/2019. There are scattered areas of fibroglandular density. There is no suspicious abnormality in either breast. Impression: There is no mammographic evidence of malignancy. Annual screening mammography is recommended. OVERALL FINAL ASSESSMENT: BI-RADS CATEGORY 1: Negative. us Self Screening Mammogram IMG MAMMO PROCEDURES Fi nal Result * COLONOSCOPY (08/21/2018 3:07 PM RN MOBILE) Anatomical Region Laterality Modality Other Narrative Procedure Note Jim Shelby MD - 08/21/2018 3:07 PM CST ENDOSCOPY LAB Patient Name: Pina Reynaga Procedure Date: 08/21/2018 3:07 PM Admit Type: Outpatient Room: [facility] Date of : 1970 Instrument Name: [...] bowel preparation was evaluated using the BBPS ([place] Bowel Preparation Scale) with scores of: Right [...] Most Recently Relevant to Health Maintenance Insurance [facility]O Address: [address] [address] [place], [place] [address] [place] [address] [facility] Advance Directives For more information, please contact: [phone] * Full Code (Latest Code Status on File) Date Activated Date Inactivated Comments 05/28/2019 6:46 PM 05/30/2019 10:06 PM * Full Code Date Activated Date Inactivated Comments 05/05/2019 4:26 PM 05/07/2019 11:22 PM * Full Code Date Activated Date Inactivated Comments 04/19/2019 9:03 AM 04/21/2019 6:40 PM * Full Code Date Activated Date Inactivated Comments 08/21/2018 12:35 PM 08/21/2018 5:10 PM Care Teams Hazmat Tanker Driver Relationship Specialty Start Date End Date Jonathan Amado MD PCP - General 03/18/17 Jim Shelby MD [address] [address] Consulting Physician Gastroenterology 06/16/19
--- OUTSIDE RECORDS SUMMARY | 2025-04-29 13:24 | XMS_ITS | Clinical Summary ---
Author Organization [facility] Address [address] [place] [address] Care Team Providers Care Logistics Project Manager Name Role Phone Unavailable Primary Care [...] 2024 12/0 03/2019, 07/23/2018 SARS-COV-2 Immunization ( - season) 2024 Respiratory Syncytial Virus (RSV) Immunization [...]
--- OUTSIDE RECORDS SUMMARY | 2025-04-29 13:24 | XMS_ITS | Clinical Summary ---
Author Organization [facility] Address [address] [facility] [place] [address] Care Team Providers Care Tipple Oiler Name Role Phone Jonathan Amado MD Unavailable [phone] Jonathan Amado MD Primary Care Provider [phone] Source Comments [facility],non-owned Affiliates and Associated Physician Practices is amultiple site organization consisting of ambulatory clinics and hospital sitesin [place], [place], [place] and [place]. This disclosure is being madepursuant to the Care Everywhere program and may not contain all information available regarding this patient. Last updated 18.[facility] Allergies Active Allergy Reactions Criticality Noted Date [...] fluticasone propionate (FLONASE) 50 MCG/ACT nasal spray [place] 2 (two) sprays into each nostril once daily Active ergocalciferol (DRISDOL) 1.25 MG (64226 UT) capsule Take 1 (one) capsule by [...] Active azelastine (Astepro) 205.5 MCG/SPRAY nasal spray [place]holz 2 (two) sprays into each nostril 2 times daily 90 mL 4 3 Active Additional Information Patient not taking.Reason: Patient adjusted, Reported on 03/08/2025 ibandronate (Boniva) 150 MG tablet Take 1 (one) tablet by mouth every 30 days 4 Active FLUoxetine (PROzac) 20 MG capsule Take 1 (one) capsule by mouth once daily 4 Active allergy injection Per [facility] Otolaryngology protocol Active fexofenadine (Cassie) 180 MG tablet Take 1 (one) tablet by mouth once daily Active Vitamin D, Ergocalciferol , 77858 units CAPS Take 1 (one) capsule by [...] capsule Take 1 (one) capsule by mouth 5 Active romosozumab-aq qg (Evenity) injection Inject 2.34 [...] Encounters Date Type Department Care Team Description 04/19/2025 3:40 PM CDT [facility] [address] [place] [phone] Allergic rhinitis due to pollen, unspecified seasonality 04/19/2025 Travel 04/05/2025 3:40 PM CDT [facility] [address] [place] [phone] Allergic rhinitis due to pollen, unspecified seasonality 04/05/2025 Travel 03/29/2025 3:40 PM CDT Clinical Support [facility] - ENT [address] [place] [phone] Allergic rhinitis due to pollen, unspecified seasonality 03/29/2025 Travel 03/22/2025 3:40 PM CDT Clinical Support [facility] - ENT [address] [place] [phone] Allergic rhinitis due to pollen, unspecified seasonality 03/22/2025 Travel 03/15/2025 3:40 PM CDT Clinical Support [facility] - ENT [address] [place] [phone] Allergic rhinitis due to pollen, unspecified seasonality 03/15/2025 Travel 03/08/2025 3:40 PM CDT [facility] [address] [place] [phone] Allergic rhinitis due to pollen, unspecified seasonality 03/08/2025 Travel 03/01/2025 3:20 PM CDT Clinical Support [facility] - ENT [address] [place] [phone] Allergic rhinitis due to pollen, unspecified seasonality 03/01/2025 Travel 02/22/2025 3:40 PM CDT Clinical Support [facility] - [facility]NT [address] [place] [phone] Allergic rhinitis due to pollen, unspecified seasonality 02/22/2025 Travel 02/08/2025 3:20 PM CDT Clinical Support [facility] [address] [place] [phone] Allergic rhinitis due to pollen, unspecified seasonality 02/08/2025 Travel 02/01/2025 3:20 PM CDT Clinical Support [facility] - ENT [address] [place] [phone] Allergic rhinitis due to pollen, unspecified seasonality 02/01/2025 Travel from Last 3 Months Immunizations Immunization [...] 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 file Not on file Not on mayank e Last Filed Vital Signs Vital Sign Reading Time Taken Comments Blood Pressure 133/85 03/29/2025 3:46 PM CDT Pulse 83 03/29/2025 3:46 PM CDT Temperature 37 C (98.6 F) 07/25/2022 3:56 PM CDT Respiratory Rate 16 07/25/2017 4:31 PM CDT Oxygen Saturation - - Inhaled Oxygen Concentration - - Weight 72 kg (158 lb 12.8 oz) 07/06/2024 3:18 PM CDT Height 162.6 cm (5' 4) 07/06/2024 3:18 PM CDT Body Mass Index 27.26 07/06/2024 3:18 PM CDT Plan of Treatment Upcoming Encounters Date Type Department Care Team (Late st Contact Info) Description 05/03/2025 3:40 PM CDT Clinical Support [facility] - [facility] [address] [place] [phone] 05/10/2025 3:40 PM CDT Clinical Support [facility] - [facility] [address] [place] [phone] 05/16/2025 3:40 PM CDT Clinical Support [facility] - ENT [address] [place] [phone] Health Maintenance Due Date Last Done Comments COLOGUARD (AGES 45-75) - COLON CA SCREENING 1970 CT COLONOGRAPHY - COLON CA SCREENING 1970 FIT - COLON CA SCREENING 1970 FLEX SIG - COLON CA SCREENING 1970 LIPID TESTING 1970 HIV SCREENING 1986 HEPATITIS B VACCINE (1 of 3 - 19+ 3-dose series) 1990 PAP SMEAR 1992 ZOSTER VACCINE (1 of 2) 2021 PNEUMOCOCCAL VACCINE 50+ (2 of 2 - PCV) 06/29/2021 06/29/2020 MAMMOGRAM 12/25/2023 12/24/2021, 12/11, 12/01/2020, Additional history exists COVID-19 VACCINE ( - season) 2024 07/17/2021, 12/29/2020, 12/08/2020 DEPRESSION SCREENING 10/13/2024 INFLUENZA VACCINE (#1) 2025 1, 07/03/2020, 09/17/2019, Additional history exists SCREENING FOR DIABETES 11/11/2025 3, 03/05/2019, 07/26/2017, Additional history exists DTAP/TDAP/TD VACCINES (3 - Td or Tdap) 06/22/2028 06/22/2018, 10/29/2017 COLON MONITORING 08/21/2028 08/21/2018 COLONOSCOPY - COLON CA SCREENING 08/21/2028 08/21/2018 [...] Resulting Agency Comment Lab Testing performed at: [facility] [address] [facility] [id number] [facility] - CHEMISTRY ORDERABLES Fi nal Result [facility] INSURANCE BILL [address] [place] [address] * HEPATITIS C ANTIBODY (02/05/2016 11:21 AM CDT) Pathologist [facility] Hepatitis C Virus Antibody <0.1 0.0 - 0.9 s/co ratio [facility] ([facility]) Comment: Negative: < 0.8 Indeterminate: 0.8 - 0.9 Positive: > 0.9 The CDC recommends that a positive HCV antibody result be followed up with a HCV Nucleic Acid Amplification test ([id number]). Blood specimen (specimen) BLOOD SPECIMEN / Unknown 02/05/2016 11:21 AM CDT 02/05/2016 4:02 PM CDT Narrative [facility] ([facility]) - 02/13/2016 11:20 AM CDT Performed at: - [facility] [address] [place], [place] [id number] Aircraft Powerplant Repairer: Darwin Hunter PhD, Phone: [phone] us Sarika Jerry [facility] - CHEMISTRY ORDERABLES Ed ited Result - Final [facility] ([facility]) [address] [place] [address], [facility] from Last 3 Months or Most Recently Relevant to Health Maintenance Insurance [employer] Care Teams Tipple Oiler Relationship Specialty Start Date End Date Jonathan Amado MD [address] [place] [address] PCP - General Family Medicine 09/15/23 Jonathan Amado MD [address] [place] [address] 06/24/13
--- OUTSIDE RECORDS SUMMARY | 2025-04-29 13:24 | XMS_ITS | Patient Health Record ---
Author Organization [facility] johana Address [address] [facility] [place] [address] Care Team Providers Care Car Trimmer Name Role Phone Aneudy ONEIL, Jonathan Primary Care Provider Cristi Powers [phone] Allergies Allergen (clinical drug ingredient) Drug/Non Drug Allergy documented on EMR Reaction Allergy Type Onset Date Status ciprofloxacin Cipro Unknown Drug Allergy 07/16/2021 Ac tive Ciprofloxacin Unknown Drug Allergy 07/16/2021 Ac tive Results Component Value Reference Range Notes eGFR Reviewed date:01/18/2025 06:16:28 PM Interpretation: Performing Lab:[facility] , [address] [facility]. [facility] [address] Notes/Report: eGFR >90 >=60 mL/min/1.73 m2 Interpretive [...] Current interpretive data was last reviewed 2021. Differential Automated Reviewed date:01/18/2025 06:15:17 PM Interpretation: Performing Lab:[facility] , [facility] [facility]. [place] [address] Notes/Report: Neut Abs 2.29 1.50-6.50 K/cumm ImmGran Abs 0.01 0.00-0.10 K/cumm Lymphocyte Abs 1.55 0.80-3.30 K/cumm Davis Abs 0.33 0.20-0.80 K/cumm Eos Abs 0.15 [...] Interpretive Data was last revised on 2018. Davis Pct 7.6 Interpretive Data Percent cell count [...] Interpretive Data was last revised on 2018. Sed Rate Reviewed date:01/19/2025 10:41:39 AM Interpretation: Performing Lab:[facility] , [facility] [facility]. [place] [address] Notes/Report: ESR 6 1-30 mm/hr Rheumatoid Factor Reviewed date:01/18/2025 06:14:25 PM Interpretation: Performing Lab:[facility] , [address] [place] [address]. [place] [address] Notes/Report: RF, Popeye <10 <=15 IUnits/mL QTB Gold Reviewed date:01/21/2025 06:46:22 AM Interpretation: Performing Lab:[facility] , [address] [place] [address]. [place] [address] Notes/Report: QuantiFERON TB Gold Negative Negative No [...] Diagnosis of Tuberculosis in Adults and Children [Gustavoinsohn DM et. al. Clin. Infect. Dis. 2017;64(2):111-115]. The reference range for the 'TB1 Ag minus Nil Result' and 'TB2 Ag minus Nil Result' is an Interferon-gamma level <0.35 IU/mL. TB-Nil 0.01 TB2-Nil 0.00 Mitogen-Nil 9.98 NIL 0.02 Test Performed by: [place] [address] Theatrical Performer: Denis Hawkins Ph.D.; CLIA# [id number] Hep Func Panel Reviewed date:01/18/2025 06:14:30 PM Interpretation: Performing Lab:[facility] , [address] [place] [address]. [place] [address] Notes/Report: Total Bilirubin 0.5 0.1-1.2 mg/dL Bilirubin, Direct <0.2 0.1-0.3 mg/dL Plasma Total Protein 6.7 6.5-8.5 g/dL Albumin 4.6 3.5-5.0 g/dL Alkaline Phosphatase 86 40-130 Units/L ALT 24 7-45 Units/L AST 23 10-45 Units/L Creatinine Reviewed date:01/18/2025 06:15:30 PM Interpretation: Performing Lab:[facility] , [address] [place] [address]. [place] [address] Notes/Report: Creatinine 0.72 0.60-1.10 mg/dL CBC w auto diff Reviewed date:01/18/2025 06:14:35 PM Interpretation: Performing Lab:[facility] , [address] [place] [address] Notes/Report: WBC 4.36 3.80-9.90 K/cumm Hgb 14.8 11.9-15.5 g/dL Hct 44.5 35.6-45.5 % Platelet Ct 197 150-400 K/cumm MPV 11.7 9.1-12.3 fL RBC 4.85 3.90-5.20 M/cumm MCV 91.8 81.3-96.4 fL MCH 30.5 27.1-33.3 pg MCHC 33.3 32.3-35.7 g/dL RDW CV 12.5 11.1-14.9 % RDW SD 41.9 35.7-48.1 fL NRBC Abs Auto 0.00 0.00-0.01 K/cumm C Reactive Protein Reviewed date:01/18/2025 06:14:39 PM Interpretation: Performing Lab:[facility] , [address] [place] [address]. [facility] [address] Notes/Report: C-Reactive Protein <3.0 <=10.0 mg/L Anti-CCP (Cyclic Citrullinat ed Peptide Ab) Reviewed date:01/19/2025 01:00:16 PM Interpretation: Performing Lab:[facility] , [address] [place] [address]. [facility] [address] Notes/Report: CCP Ab <0.5 <=2.9 units/mL Interpretive data Negative: <3 units/mL Positive: > or equal to 3 units/mL Current interpretive data was last revised on 2017. 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.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) Active confirmed Problem Vitamin D deficiency (06157453) Vitamin D deficiency (E55.9) Active confirmed Problem Neck pain (82455680) Neck pain (M54.2) Active confirmed Problem Inflammatory polyarthropathy (928425755) Inflammatory polyarthropathy (M06.4) 08/06/20 21 Active confirmed Problem Joint pain (88087261) Pain in unspecified joint (M25.50) Active confirmed Problem Anesthesia of skin (463184494) Anesthesia of skin (R20.0) Active confirmed Vital Signs Heart Rate 66 /min 02/02/2025 Temperature 98.6 degrees Fahrenheit 02/02/2025 Height-cm 160.02 cm 02/02/2025 Oximetry 98 % 02/02/2025 Blood pressure diastolic 80 mm Hg 02/02/2025 Weight-kg 74.21 kg 02/02/2025 Height 63 in 02/02/2025 Blood pressure systolic 120 mm Hg 02/02/2025 Weight 163.6 lbs 02/02/2025 BMI 28.98 kg/m2 02/02/2025 Encounters Encounter Location Date Provider Diagnosis [facility] [address] [place] [address] 07/09/[address] [facility] [address] [place] [address] 01/18/2025 Cristi Foss Inflammatory polyarthropathy M06.4 ; Pain in unspecified joint M25.50 ; Anesthesia of skin R20.0 ; Other senior living (current) drug therapy Z79.899 and Neck pain M54.2 [facility] [address] [place] [address] 02/02/2025 Cristi Foss Inflammatory polyarthropathy M06.4 ; Other senior living (current) drug therapy Z79.899 ; Neck pain M54.2 and Vitamin D deficiency E55.9 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 Plan Of Treatment Pending Test Test Name Order Date X ray : Hand, left 03/12/2024 X ray : Hand, right 03/12/2024 X ray : Spines, cervical 4 views 025 Creatinine, Serum 03/12/2024 CBC With Differential/Platelet 4 CBC With Differential/Platelet Rheumatoid Arthritis Factor 03/12/2024 CCP IgG Antibodies 03/12/2024 FABIAN Comprehensive Panel 03/12/2024 Hepatic Function Panel (7) 03/12/2024 Hepatic Function Panel (7) 04/09/2024 ESR 03/12/2024 Creatinine 04/09/2024 Next Appt Details Provider Name:Cristi giang, 05/05/2025 10:00:00 AM, [address] [facility] [address], [place], [address], Insurance Providers Payer Name Payer Address Payer Phone Subscriber Number Group Number Insured Name Patient Relationship to Insured Coverage Start Date Coverage End Date [facility] [address] [place] [address] [id number] Pina Reynaga Self - patient is the insured [facility] Choice Plus [address] [address] [place] [address] [id number] Pina Reynaga Self - patient is the insured Medical (General) History Surgical History Surgery Date(Month/Year) D&C; 2021-07-16 Cyst removal; 2021-07-16 Hysterectomy; 2021-07-16 Bladder Surgery; 2021-07-16 Cyst excision; 2021-07-16 Sinus Surgery; 2021-07-16 Hospitalization History Reason Date(Month/Year)
--- OUTSIDE RECORDS SUMMARY | 2025-04-29 13:24 | XMS_ITS | Clinical Summary ---
Author Organization [facility] Address [address] [place] [address] Care Team Providers Care Painting Trades Worker Name Role Phone Jonathan Amado MD Primary Care Provider [phone] Jim Shelby MD Unavailable Allergies Active Allergy [...] 06/24/2013 Sulfasalazine Rash Medium 04/24/2012 Body aches [place] Pollen-Short Ragweed Unknown 01/28/2023 ragweed - allergy Medications cetirizine (ZyrTEC) 10 mg tablet Take 1 tablet (10 mg total) by mouth daily Active acetaminophen (TYLENOL) 325 mg tablet Take 2 tablets (650 mg total) by mouth every 8 (eight) hours 30 tablet 9 Active Additional Information Patient not taking.Reported on 04/18/2025 tobramycin, bulk, 900 mcg/mg (not less than, RETIREMENT) powder Add 1 capsule of 20mg to [...] (04/21/2019): Added automatically from request for surgery [id number] Elevated CK 03/01/2019 Urticaria 03/01/2019 Memory loss [...] Type Department Care Team Description 04/22/2025 Telephone [facility] [facility] [address] [place] [address] Alexis Palma LCSW 04/19/2025 Telephone [facility] [facility] [address] [place] [address] Alexis Palma LCSW 04/18/2025 3:15 PM CDT Office Visit [facility] [address] [place] [address] [place] [address] Meg Coleman PA Primary progressive aphasia (HCC) (Primary Dx); Alzheimer's disease (HCC) 03/11/[address] [place] [address] Bryant Yun MD 02/23/2025 3:00 PM CDT Infusion [facility] Injection Therapy [address] [place] [address] [place] [address] Postmenopausal osteoporosis (Primary Dx) from Last 3 Months Immunizations Immunization Administration Dates Next Due Influenza, Quadrivalent, Rec ombinant, Egg Free, Preservative Free, Intramuscular 08/16/2021,09/17/2019 Influenza, Quadrivalent, Spl it, Preservative Free, Intramuscular 07/23/2018 Influenza, Trivalent, Preservative Free, Intramu scular 07/25/2017 Influenza, Unspecified 07/03/2020 Pneumococcal Polysaccharide PPV23 06/29/2020,02/2012 TD Preservative Free 10/17/2011 Tdap 06/22/2018,10/29/2017 Surgical History Surgery Date Site/Laterality Comments WA DILATION & CURETTAGE DX&/THER NONOBSTETRIC BLADDER SURGERY [...] and Family Not on file 12/13/2019 Attends [employer] Not on file 12/12 Active Member [...] on file 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 Gender Identity Not on file Sexual [...] 04/18/2025 2:51 PM CDT Plan of Treatment Health Maintenance Due Date Last Done Comments Depression Screening 1970 Hepatitis C Screening 1970 Hepatitis B Screening 1989 Zoster Vaccine (1 of 2) 1990 Pneumococcal vaccine <65 (3 of 3 - PCV) 06/29/2021 06/29/2020, 10/17/2011 Breast Cancer Screening-Mammogram 12/24/2022 12/24/2021, 12/01/2020, 11/01/2019, Additional history exists Covid-19 Vaccine (2023-2 5 season) 2024 07/17/2021, 12/29/2020, 12/08/2020 Influenza Vaccine (#1) 2025 , 07/03/2020, 09/17/2019, Additional history exists Regular Well Visit/Exam 18-64 10/26/2025, 07/17/2022, 07/03/2020, Additional history exists DTaP/Tdap/Td Vaccine (3 - Td or Tdap) 06/22/2028 06/22/2018, 10/29/2017, 10/17/2011 Colon Cancer Screening-Colonoscopy 08/21/20282017, 10/31/2014 Medical Devices Explanted Type Area Flare Man Device Identifier Shelf Expiration Date Model / Serial / Lot [employer] [id number] Rojo Flexi-Stent 7fr 3cm Small Pigtail Flexible .035in Stent - [id number] Implanted:Qty: 1 on 04/19/2019 by Jim Shelby MD at [facility] Explanted:Qty: 1 on 04/21/2019 at [facility] Stent Pancreas [employer] 11/12/2023 657 1 / / [id number] Conmed Tracie [id number] [place] Viabil 10mm 8.5fr 6cm 200cm Fully Covered Self Expand Pull - [id number] - [id number] Implanted:Qty: 1 on 04/19/2019 by Jim Shelby MD at [facility] Explanted:Qty: 1 on 04/21/2019 at [facility] Stent Bile Duct Conmed Tracie 12/21/2021 [id number] / [id number] / Procedures Procedure Name Priority Date/Time Associated Diagnosis Comments SCREENING MAMMOGRAM BILATERAL W LEDA Schedule Routine, Read Routine (OP Routine) 12/24/2021 2:23 PM CDT Screening mammogram, encounter for COLONOSCOPY 08/21/2018 3:07 PM WASHER ENGINEER HELPER from Last 3 Months or Most Recently [...] System on 09/07/2018 and 12/01/2020, and at [facility] on 11/01/2019. There are scattered areas of [...] System on 09/07/2018 and 12/01/2020, and at [facility] on 11/01/2019. There are scattered areas of fibroglandular density. There is no suspicious abnormality in either breast. Impression: There is no mammographic evidence of malignancy. Annual screening mammography is recommended. OVERALL FINAL ASSESSMENT: BI-RADS CATEGORY 1: Negative. us Self Screening Mammogram IMG MAMMO PROCEDURES Fi nal Result * COLONOSCOPY (08/21/2018 3:07 PM WASHER ENGINEER HELPER) Anatomical Region Laterality Modality Other Narrative Procedure Note Jim Shelby MD - 08/21/2018 3:07 PM CST ENDOSCOPY LAB Patient Name: Pina Reynaga Procedure Date: 08/21/2018 3:07 PM Admit Type: Outpatient Room: [facility] Date of : 1970 Instrument Name: [...] bowel preparation was evaluated using the BBPS ([place] Bowel Preparation Scale) with scores of: Right [...] Relevant to Health Maintenance Insurance [facility] CHOICE PLUS [facility] FEDERAL [facility] FEDERAL Advance Directives For more information, please contact: [phone] * Full Code (Latest Code Status on File) Date Activated Date Inactivated Comments 05/28/2019 6:46 PM 05/30/2019 10:06 PM * Full Code Date Activated Date Inactivated Comments 05/05/2019 4:26 PM 05/07/2019 11:22 PM * Full Code Date Activated Date Inactivated Comments 04/19/2019 9:03 AM 04/21/2019 6:40 PM * Full Code Date Activated Date Inactivated Comments 08/21/2018 12:35 PM 08/21/2018 5:10 PM Care Teams Painting Trades Worker Relationship Specialty Start Date End Date Jonathan Amado MD PCP - General 03/18/17 Jim Shelby MD [address] [address] Consulting Physician Gastroenterology 06/16/19
--- OUTSIDE RECORDS SUMMARY | 2025-04-29 13:24 | XMS_ITS | Clinical Summary ---
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
--- OUTSIDE RECORDS SUMMARY | 2025-04-29 13:24 | XMS_ITS | Encounter Summary ---
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
--- OUTSIDE RECORDS SUMMARY | 2025-04-29 13:24 | XMS_ITS | Clinical Summary ---
Author Organization [facility] Address [address] [place] [address] Care Team Providers Care Elevator Constructor Hydraulic Name Role Phone Unavailable Primary Care Provider [...]
--- OUTSIDE RECORDS SUMMARY | 2025-04-29 13:24 | XMS_ITS | Patient Health Record ---
Author Organization [facility] Address [address] [place] [address] Care Team Providers Care Rn Nicu Name Role Phone Aneudy ONEIL, Jonathan Primary Care Provider Scott CERON MD, FRANK Unavailable Allergies Allergen (clinical drug ingredient) Drug/Non Drug Allergy documented on EMR Reaction Allergy Type Onset Date Status IODINATED CONTRAST- ORAL AND IV DYE (uncoded) Review Dt:10/09/2017 Allergy Active morphine MORPHINE (uncoded) Review Dt:10/09/2017 Allergy Active ciprofloxacin CIPRO Review Dt:10/09/2017 Drug Allergy Active COMPAZINE Review Dt:10/09/2017 Drug Allergy Active Reason For Referral No Information Medications Medication [...] with food Orally every 12 hrs Active Social History Tobacco Use: Social History Observation Description Date Details (start date - stop date) Never Smoker NA - NA Tobacco Use/Smoking Question Answer Notes Are you a nonsmoker Problems Problem Type SNOMED Code ICD Code Onset Dates Problem Status W/U Status Risk Notes Problem 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 Problem Epigastric pain (46060900) Epigastric pain (R10.13) Active confirmed Problem Lower abdominal pain (43801329) Lower abdominal pain, unspecified (R10.30) Active confirmed Problem Generalized abdominal pain (833674009) Generalized abdominal pain (R10.84) Active confirmed Problem Flatulence, eructation and gas pain (152642064) Abdominal distension (gaseous) (R14.0) Active confirmed Problem Diarrhea, unspecified (R19.7) Active confirmed Plan Of Treatment Pending Test Test Name Order Date Colonoscopy 07/20/2018 Colonoscopy 12/19/2021 Amylase, Serum 07/20/2018 Lipase, Serum 07/20/2018 Hepatic Function Panel (7) 07/20/2018 CBC 07/20/2018 Endoscopic Retrograde Cholangiopancreato graphy (ERCP) 03/10/2019 Esophagogastroduodenoscopy (EGD) 018 Insurance Providers Payer Name Payer Address Payer Phone Subscriber Number Group Number Insured Name Patient Relationship to Insured Coverage Start Date Coverage End Date [facility] [address] [place], [place] [id number] Pina Reynaga Self - patient is the insured [facility] [address] [place], [place] [id number] Cristi Reynaga jr Spouse - patient is the spouse of the insured Medical (General) History Medical History History ICD Code Hx PUD [...] oophorectomy 2010 Removal o right ovarian cyst 2008 Adhesiolysis 2008 Lap cholecystectomy 2004 Partial hysterectomy SInus surgery x 3 Bladder suspension Tonsillectomy Colonoscopy Aliperti 08/2018 Normal. TI and random colon bx neg. EGD 08/2018 [facility] Small h iatal hernia, o/w normal. Path- BETSY neg, duodenal bx neg.
--- NOTE | 2025-04-29 15:35 | ED.ABDPAIN ---
HPI - Abdominal Pain General Chief Complaint: Abdominal Pain <JERMAINE Dominguez Last Filed: 04/29/25 15:51> Stated Complaint: Lsided abd pain, R flank pain <JERMAINE Dominguez Last Filed: 04/29/25 15:51> Time Seen by Provider: 04/29/25 15:35 <JERMAINE Dominguez Last Filed: 04/29/25 15:51> Focused HPI: Patient is a 55 y/o female, with PMH of early Alzheimer's with expressive aphasia, who presents to the ED with c/o ABD pain and BLE swelling. at bedside assisted in providing information. Patient reports having pain throughout her R upper abdominal pain. Reports pain has been intermittent for some time, but became worse this afternoon. Typically worse with eating, but she did not eat anything today. Hx of cholecystectomy in the past. Reports nausea, occasional vomiting, occasional diarrhea. Reports dysuria over past few days. Hx of UTIs. Denies significant fevers. Scheduled to see GI for this on 05/12/25 at [facility]. She also reports having pain and swelling throughout her BLE for the past couple months. Has seen her primary care doctor for this and was told to wear compression stockings, but patient has too much pain with these. Denies hx of CHF. Not on any diuretics. GENERAL: Well-appearing, well-nourished, and in no acute distress. HEAD: Normocephalic, atraumatic. CHEST: Clear to auscultation. ?No respiratory distress. HEART: Regular rate and rhythm.? ABD: Mild TTP in RUQ, LLQ, suprapubic region, normoactive BS NEURO: ?Alert and oriented x3. Intermittent expressive aphasia. Patient screened in triage and initial orders placed.? ?Additional care and disposition to be based upon?diagnostic testing and treatment. <JERMAINE Dominguez Filed: 04/29/25 15:51> Source: patient and family <JERMAINE Dominguez Last Filed: 04/29/25 15:51> Mode of arrival: ambulatory <JERMAINE Dominguez Filed: 04/29/25 15:51> Limitations: no limitations <Haydee Downey PA-C - Last Filed: 04/29/25 15:51> History of Present Illness HPI narrative: I agree with the evaluation and documentation above. Pt has a history of aphasia, asthma, migraines, Raynaud's, back pain, and osteoporosis. <Nemo Coyne APRN - Last Filed: 04/29/25 20:18> Related Data Allergies/Adverse Reactions: Allergies Allergy/AdvReac Type Severity Reaction Status Date / Time ibandronate sodium Allergy Severe esophagitis Verified 04/29/25 19:38 prochlorperazine Allergy Severe Anxiety Verified 04/29/25 19:38 doxycycline Allergy Intermediate mus Verified 04/29/25 19:38 ciprofloxacin Allergy Mild MUSCLE Verified 04/29/25 19:38 ACHES iodine Allergy Mild Unknown Verified 04/29/25 19:38 morphine Allergy Mild N/V Verified 04/29/25 19:38 Quinolones Allergy Mild Unknown Verified 04/29/25 19:38 tetracycline Allergy Mild MUSCLE ACHS Verified 04/29/25 19:38 promethazine Allergy Unknown Unknown Verified 04/29/25 19:38 sulfamethoxazole Allergy Unknown Unknown Verified 04/29/25 19:38 trimethoprim Allergy Unknown Unknown Verified 04/29/25 19:38 Contrast Media Allergy Severe IVP DYE Uncoded 04/20/25 13:53 CAUSES RESPIRATORY DISTRESS <Haydee Downey PA-C - Last Filed: 04/29/25 15:51> Review of Systems Review of Systems: All systems reviewed & are unremarkable except as noted in HPI and below <Nemo Coyne APRN - Last Filed: 04/29/25 20:18> [facility] Past Medical History Medical History: Medical History Acute sinusitis Thyroid nodule Encounter for immunization Erosive (osteo)arthritis Osteoporosis Sphincter of Oddi dysfunction Osteoporosis Overweight (BMI 25.0-29.9) Osteopenia Hiatal hernia Acute gastritis without bleeding Duodenal ulcer, unspecified as acute or chronic, without hemorrhage or perforation Esophageal reflux Fibromyalgia Migraine with aura and with status migrainosus, not intractable Mild intermittent asthma, uncomplicated Monoclonal gammopathy of unknown significance (MGUS) 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 Raynaud's syndrome Selective deficiency of immunoglobulin a [iga] Unspecified vitamin D deficiency <Haydee Downey PA-C - Last Filed: 04/29/25 15:51> Surgical History Surgical History: Surgical History Hx of tonsillectomy H/O sinus surgery History of bladder surgery History of hysterectomy Hx of cholecystectomy H/O rectal sphincterotomy History of ERCP x2 <Haydee Downey PA-C - Last Filed: 04/29/25 15:51> Family History Family History: Family History Mother Family history of osteoporosis Hypertension Family history of arthritis Depression Family history of psoriasis Grandparent Family history of osteoporosis Hypertension Family history of malignant neoplasm Family history of chronic obstructive pulmonary disease Family history of Alzheimer's disease Family history of glaucoma Cerebrovascular accident Family history of malignant neoplasm of breast Family history of lymphoma Family history of malignant neoplasm of ovary Father Hypertension Asthma Other Family history of migraine headaches <Haydee Downey PA-C - Last Filed: 04/29/25 15:51> Social History Social History: Social History Smoking status: Never smoker Alcohol intake: never Substance use: never Lack of Transportation: No Lack of Food: Never True Current Housing: I Have Housing Concerned About Future Housing: No Difficulty Paying Gas/Electric Bills: No Difficulty Paying for Meds: No Currently Unemployed: No Gender identity (if verbalized by the patient): Female <JERMAINE Dominguez Last Filed: 04/29/25 15:51> Exam Narrative: GENERAL: Well-appearing, well-nourished, non-toxic, in no acute distress. HEAD: Normocephalic, atraumatic. NECK: Supple. No adenopathy, no masses. RESPIRATORY: Airway patent, respirations nonlabored. Clear to auscultation bilaterally, no rales, rhonchi, wheezing. CARDIOVASCULAR: Regular rate and rhythm without murmurs, rubs, or gallops. Peripheral pulses 2+ and equal bilaterally. +CVA tenderness bilaterally ABDOMINAL: Soft, tender bilateral upper quadrants, nondistended, no hepatosplenomegaly. Normoactive BS. MUSCULOSKELETAL: Moves all extremities. Strength/ROM intact without gross deformities. SKIN: Warm, dry, normal color. No rashes. NEURO: A&O X3. Speech clear. Cranial nerves II-XII intact. No ataxic movements. PSYCHIATRIC: Appropriate mood and affect. Normal interaction. <Nemo Coyne, TRACK EQUIPMENT OPERATOR - Last Filed: 04/29/25 20:18> Course Vital Signs Vital signs: Vital Signs Temperature 36.4 C 04/29/25 13:22 Pulse Rate 81 04/29/25 13:22 Respiratory Rate 18 04/29/25 13:22 Blood Pressure 144/97 H 04/29/25 13:22 Pulse Oximetry 04/29/25 13:22 Oxygen Delivery Room Air 04/29/25 13:22 Temperature 36.4 C 04/29/25 13:22 Pulse Rate 81 04/29/25 13:22 Respiratory Rate 18 04/29/25 13:22 Blood Pressure 144/97 H 04/29/25 13:22 Pulse Oximetry 100 04/29/25 13:22 Oxygen Delivery Room Air 04/29/25 13:22 <Haydee Downey PA-C - Last Filed: 04/29/25 15:51> Vital Signs Temperature 36.4 C 04/29/25 13:22 Pulse Rate 81 04/29/25 13:22 Respiratory Rate 18 04/29/25 13:22 Blood Pressure 144/97 H 04/29/25 13:22 Pulse Oximetry 100 04/29/25 13:22 Oxygen Delivery Room Air 04/29/25 13:22 Temperature 36.4 C 04/29/25 13:22 Pulse Rate 81 04/29/25 13:22 Respiratory Rate 18 04/29/25 13:22 Blood Pressure 144/97 H 04/29/25 13:22 Pulse Oximetry 04/29/25 13:22 Oxygen Delivery Room Air 04/29/25 13:22 <Nemo Coyne, TRACK EQUIPMENT OPERATOR - Last Filed: 04/29/25 20:18> MDM - Abdominal Pain MDM Narrative Medical decision making narrative: MSE by ROB in triage. <JERMAINE Dominguez Filed: 04/29/25 15:51> MSE by ROB in triage. Patient is a 55 y/o female, with PMH of early Alzheimer's with expressive aphasia, who presents to the ED with c/o ABD pain and BLE swelling. at bedside assisted in providing information. Patient reports having pain throughout her R upper abdominal pain. Reports pain has been intermittent for some time, but became worse this afternoon. Typically worse with eating, but she did not eat anything today. Hx of cholecystectomy in the past. Reports nausea, occasional vomiting, occasional diarrhea. Reports dysuria over past few days. Hx of UTIs. Denies significant fevers. Scheduled to see GI for this on 05/12/25 at [facility]. She also reports having pain and swelling throughout her BLE for the past couple months. Has seen her primary care doctor for this and was told to wear compression stockings, but patient has too much pain with these. Denies hx of CHF. Not on any diuretics. Labs Ordered: CBC, CMP, BMP, UA, PTT, INR, lipase Imaging Ordered: CT abdomen pelvis, bilateral lower extremity Doppler ultrasound Medications Ordered: 1 L normal saline IV bolus Results: Patient's CT abdomen pelvis scan indicates 1. No evidence of appendicitis, diverticulitis or intestinal obstruction. Appendix is not demonstrated. 2. Pneumobilia. 3. Constipation Patient's ultrasounds indicate Patent bilateral lower extremity veins. No evidence of deep venous thrombosis. Diagnosis: Chronic pneumobilia, constipation, lower extremity pain Consults: gastroenterology (outpatient), neurology (outpatient) Patient Education/Shared MDM: Results of lab work and imaging shared with patient. After reviewing patient's previous CT scans the pneumobilia has been present in the past. Upon further discussion patient endorses a history constipation and reports she has not been taking MiraLax recently. She endorses improvement of symptoms following Toradol medication administration. Patient strongly advised to maintain hydration status upon discharge and follow-up with her PCP, rn concurrent review, and neurologist as soon as possible. She will be discharged home with a prescription for MiraLax and magnesium citrate. Strict return precautions provided. Patient verbalized understanding and is in agreement with plan. Vital signs stable at time of discharge. All questions answered. <Nemo Coyne APRN - Last Filed: 04/29/25 20:18> Differential Diagnosis Differential diagnosis: Likely abdominal pain, constipation and small bowel obstruction <Nemo Coyne APRN - Last Filed: 04/29/25 20:18> Lab Data Attestation: I reviewed the patient's lab results. <Nemo Coyne APRN - Last Filed: 04/29/25 20:18> Result diagrams: 04/29/25 15:53 04/29/25 15:53 <Haydee Downey PA-C - Last Filed: 04/29/25 15:51> Labs: Lab Results 04/29/25 04/29/25 04/29/25 Range/Units 15:53 15:53 17:11 WBC 5.4 (4.5-10.0) K/mm3 RBC 4.77 (4.2-5.4) M/mm3 Hgb 14.6 (12.0-15.0) g/dL Hct 43.0 (37.0-47.0) % MCV 90.1 (80-100) fl MCH 30.6 (26-34) pg MCHC 34.0 (32-36) g/dl RDW 12.2 (11.5-14.5) % Plt Count 201 (150-375) k/mm3 MPV 10.6 H (7.4-10.4) fl Immature Gran % (Auto) 0.2 (0-0.5) % Neut % (Auto) 45.1 L (45.5-73.1) % Lymph % (Auto) 38.4 (18.3-44.2) % [place] % (Auto) 9.0 H (2.6-8.5) % Eos % (Auto) 6.6 H (0-4.4) % Baso % (Auto) 0.7 (0.2-1.2) % Lymph # (Auto) 2.08 (0.9-3.2) K/mm3 [place] # (Auto) 0.5 (0.1-0.6) K/mm3 Eos # (Auto) 0.4 H (0-0.3) K/mm3 Baso # (Auto) 0.0 (0.0-0.1) K/mm3 Abs Immat Gran (auto) 0.01 (0.00-0.031) K/mm3 Absolute Neuts (auto) 2.4 (1.3-6.7) K/mm3 Absolute Nucleated RBC 0.000 (0.0-0.012) K/mm3 Nucleated RBC % 0.0 (0.0-0.2) % PT 13.3 (11.1-14.7) Seconds INR 1.0 APTT 28.4 (22.3-36.8) Seconds Sodium 136 L (137-145) mmol/L Potassium 4.0 (3.4-5.0) mmol/L Chloride 104 (98-107) mmol/L Carbon Dioxide 24 (22-30) mmol/L Anion Gap 8 (4-12) mmol/L BUN 10 D (7-17) mg/dL Creatinine 0.68 L (0.7-1.0) mg/dL Estim Creat Clear Calc 70 ml/min Estimated GFR > 60 (59 - ) Glucose 89 (65-110) mg/dL Calcium 9.4 (8.4-10.2) mg/dL Total Bilirubin 0.8 (0.2-1.3) mg/dL AST 42 H (14-36) U/L ALT 24 (6-35) U/L Alkaline Phosphatase 76 (38-126) U/L NT-Pro-B Natriuret Pep < 20 Cancelled (19.9-100) pg/mL Total Protein 6.9 (6.3-8.2) g/dL Albumin 4.2 (3.5-5.1) g/dL Lipase 46 (23-300) U/L Urine Color Yellow (Yellow) Urine Appearance Clear (Clear) Urine pH 7.0 (5.0-9.0) Ur Specific [place] 1.023 (1.001-1.035) Urine Protein Negative (Negative) mg/dL Urine Glucose (UA) Negative (Negative) mg/dL Urine Ketones Trace H (Negative) mg/dL Ur Blood (Man) Negative (Negative) Urine Nitrate Negative (Negative) Urine Bilirubin Negative (Negative) Urine Urobilinogen 1.0 (<2.0) mg/dL Leukocyte Esterase Rfl Trace H (Negative) ANABEL/UL Urine RBC 0-2 (0-2) /hpf Urine WBC 0-5 (0-3) /hpf Ur Squamous Epith Cells None seen (Few) /hpf Urine Bacteria None seen /hpf Urine Casts 0-2 <Haydee Downey PA-C - Last Filed: 04/29/25 15:51> Lab Results 04/29/25 04/29/25 04/29/25 Range/Units 15:53 15:53 17:11 WBC 5.4 (4.5-10.0) K/mm3 RBC 4.77 (4.2-5.4) M/mm3 Hgb 14.6 (12.0-15.0) g/dL Hct 43.0 (37.0-47.0) % MCV 90.1 (80-100) fl MCH 30.6 (26-34) pg MCHC 34.0 (32-36) g/dl RDW 12.2 (11.5-14.5) % Plt Count 201 (150-375) k/mm3 MPV 10.6 H (7.4-10.4) fl Immature Gran % (Auto) 0.2 (0-0.5) % Neut % (Auto) 45.1 L (45.5-73.1) % Lymph % (Auto) 38.4 (18.3-44.2) % [place] % (Auto) 9.0 H (2.6-8.5) % Eos % (Auto) 6.6 H (0-4.4) % Baso % (Auto) 0.7 (0.2-1.2) % Lymph # (Auto) 2.08 (0.9-3.2) K/mm3 [place] # (Auto) 0.5 (0.1-0.6) K/mm3 Eos # (Auto) 0.4 H (0-0.3) K/mm3 Baso # (Auto) 0.0 (0.0-0.1) K/mm3 Abs Immat Gran (auto) 0.01 (0.00-0.031) K/mm3 Absolute Neuts (auto) 2.4 (1.3-6.7) K/mm3 Absolute Nucleated RBC 0.000 (0.0-0.012) K/mm3 Nucleated RBC % 0.0 (0.0-0.2) % PT 13.3 (11.1-14.7) Seconds INR 1.0 APTT 28.4 (22.3-36.8) Seconds Sodium 136 L (137-145) mmol/L Potassium 4.0 (3.4-5.0) mmol/L Chloride 104 (98-107) mmol/L Carbon Dioxide 24 (22-30) mmol/L Anion Gap 8 (4-12) mmol/L BUN 10 D (7-17) mg/dL Creatinine 0.68 L (0.7-1.0) mg/dL Estim Creat Clear Calc 70 ml/min Estimated GFR > 60 (59 - ) Glucose 89 (65-110) mg/dL Calcium 9.4 (8.4-10.2) mg/dL Total Bilirubin 0.8 (0.2-1.3) mg/dL AST 42 H (14-36) U/L ALT 24 (6-35) U/L Alkaline Phosphatase 76 (38-126) U/L NT-Pro-B Natriuret Pep < 20 Cancelled (19.9-100) pg/mL Total Protein 6.9 (6.3-8.2) g/dL Albumin 4.2 (3.5-5.1) g/dL Lipase 46 (23-300) U/L Urine Color Yellow (Yellow) Urine Appearance Clear (Clear) Urine pH 7.0 (5.0-9.0) Ur Specific [place] 1.023 (1.001-1.035) Urine Protein Negative (Negative) mg/dL Urine Glucose (UA) Negative (Negative) mg/dL Urine Ketones Trace H (Negative) mg/dL Ur Blood (Man) Negative (Negative) Urine Nitrate Negative (Negative) Urine Bilirubin Negative (Negative) Urine Urobilinogen 1.0 (<2.0) mg/dL Leukocyte Esterase Rfl Trace H (Negative) ANABEL/UL Urine RBC 0-2 (0-2) /hpf Urine WBC 0-5 (0-3) /hpf Ur Squamous Epith Cells None seen (Few) /hpf Urine Bacteria None seen /hpf Urine Casts 0-2 <Nemo Coyne APRN - Last Filed: 04/29/25 20:18> Imaging Data Attestation: I personally reviewed and interpreted this imaging study as follows: <Nemo Coyne APRN - Last Filed: 04/29/25 20:18> Radiologist's impression: ITS Impressions Abdomen/Pelvis CT 04/29/25 16:54 IMPRESSION: 1. No evidence of appendicitis, diverticulitis or intestinal obstruction. Appendix is not demonstrated. 2. Pneumobilia. 3. Constipation Venous Doppler Study 04/29/25 19:15 IMPRESSION: Patent bilateral lower extremity veins. No evidence of deep venous thrombosis. <JERMAINE Dominguez Last Filed: 04/29/25 15:51> ITS Impressions Abdomen/Pelvis CT 04/29/25 16:54 IMPRESSION: 1. No evidence of appendicitis, diverticulitis or intestinal obstruction. Appendix is not demonstrated. 2. Pneumobilia. 3. Constipation Venous Doppler Study 04/29/25 19:15 IMPRESSION: Patent bilateral lower extremity veins. No evidence of deep venous thrombosis. <Nemo Coyne APRN - Last Filed: 04/29/25 20:18> Discharge Plan Discharge Clinical Impression: Constipation by delayed colonic transit, Pneumobilia, Leg pain, bilateral <JERMAINE Dominguez Last Filed: 04/29/25 15:51> Patient Disposition: Home <JERMAINE Dominguez Last Filed: 04/29/25 15:51> Condition: Stable <JERMAINE Dominguez Last Filed: 04/29/25 15:51> Instructions: Antibiotic Form <JERMAINE Dominguez Last Filed: 04/29/25 15:51> Additional Instructions: Please return to the ER with any worsening symptoms. Follow-up with primary care provider, Neurology, and Gastroenterology as soon as possible. Take all medications as prescribed, including regularly scheduled medications. You may use MiraLax to help relieve your constipation. If you are unsuccessful with MiraLax please proceed to a dose of magnesium citrate. Remember to drink lots of water upon discharge. If you are unable to get into see your rn concurrent review soon, please attempt to call the rn concurrent review listed on your discharge paperwork for further evaluation. <JERMAINE Dominguez Last Filed: 04/29/25 15:51> Patient Language: Divehi <JERMAINE Dominguez Last Filed: 04/29/25 15:51> Prescriptions: New polyethylene glycol 3350 [ClearLax] 17 gram/dose powder 17 g PO BID Qty: 238 0RF magnesium citrate Solution 150 ml PO ONCE Qty: 296 0RF Rx Instructions: as a single dose <Haydee Downey PA-C - Last Filed: 04/29/25 15:51> Follow-up/Referrals: Jonathan Amado MD [Primary Care Provider] - Epi Joshi MD [Physician] - (gastroenterology) <Haydee Downey PA-C - Last Filed: 04/29/25 15:51> Time of Disposition: 20:18 <Haydee Downey PA-C - Last Filed: 04/29/25 15:51> 20:18 <Nemo Coyne APRN - Last Filed: 04/29/25 20:18>
[2025-04-29 16:02] LABS: Hematocrit 43.0 % (37.0-47.0); Hemoglobin 14.6 g/dL (12.0-15.0); Immature Granulocyte Percent A 0.2 % (0-0.5); Lymphocytes Absolute Auto 2.08 K/mm3 (0.9-3.2); Mean Corpuscular HGB Conc 34.0 g/dl (32-36); Mean Corpuscular Hemoglobin 30.6 pg (26-34); Mean Corpuscular Volume 90.1 fl (80-100); Nucleated Red Blood Cells Absolute Auto 0.000 K/mm3 (0.0-0.012); Nucleated Red Blood Cells Perc 0.0 % (0.0-0.2); Platelet Count Result 201 k/mm3 (150-375); Red Blood Count 4.77 M/mm3 (4.2-5.4); White Blood Count 5.4 K/mm3 (4.5-10.0)
[2025-04-29 16:26] LABS: Alanine Aminotransferase 24 U/L (6-35); Albumin Level 4.2 g/dL (3.5-5.1); Alkaline Phosphatase 76 U/L (38-126); Anion Gap 8 mmol/L (4-12); Aspartate Amino Transferase 42 U/L (14-36); Bilirubin,Total 0.8 mg/dL (0.2-1.3); Blood Urea Nitrogen 10 mg/dL (7-17); Calcium 9.4 mg/dL (8.4-10.2); Carbon Dioxide 24 mmol/L (22-30); Chloride 104 mmol/L (98-107); Estimated CRCL calculation 70 ml/min; Estimated Glomerular Filt Rate > 60; Glucose 89 mg/dL (65-110); Lipase 46 U/L (23-300); Potassium 4.0 mmol/L (3.4-5.0); Sodium 136 mmol/L (137-145); Total Protein 6.9 g/dL (6.3-8.2)
[2025-04-29 16:27] LABS: INR 1.0; Prothrombin Time 13.3 Seconds (11.1-14.7)
[2025-04-29 16:28] LABS: Partial Thromboplastin Time 28.4 Seconds (22.3-36.8)
[2025-04-29 16:31] LABS: NT Pro B Type Natriuretic Pept < 20 pg/mL (19.9-100)
[2025-04-29 17:24] LABS: Add Urine Microscopic? YES; Appearance Urine Clear (Clear); Glucose Urine UA Negative (Negative); Leukocyte Esterase Ur Trace LEU/UL (Negative); Nitrate Urine Negative (Negative); Non Pathogenic Casts 0-2; Specific Grav Ur 1.023 (1.001-1.035)
--- OUTSIDE RECORDS SUMMARY | 2025-04-29 18:17 | XMS_ITS | Clinical Summary ---
Author Organization [facility] Address [address] [place] [id number] Care Team Providers Care Compliance Intern Name Role Phone Unavailable Primary Care Provider [...]
--- OUTSIDE RECORDS SUMMARY | 2025-04-29 18:17 | XMS_ITS | Clinical Summary ---
Author Organization [facility] Address [address] [place] [address] Care Team Providers Care Urban Redevelopment Specialist Name Role Phone Jonathan Amado MD Primary Care Provider [phone] Jim Shelby MD Unavailable [phone] Allergies Active Allergy Reactions Criticality Noted Date [...] 06/24/2013 Sulfasalazine Rash Medium 04/24/2012 Body aches [place] Pollen-Short Ragweed Unknown 01/28/2023 ragweed - allergy [...] (04/21/2019): Added automatically from request for surgery [id number] Elevated CK 03/01/2019 Urticaria 03/01/2019 Memory loss [...] Department Care Team Description 04/22/2025 Telephone [facility] [facility] [address] Floor [address] [place] [address] Alexis Palma LCSW 04/19/2025 Telephone [facility] [facility] [address] [place] [address] Alexis Palma LCSW 04/18/2025 3:15 PM CDT Office Visit [facility] [place] [address] [facility] 6th [place] [address] [place] [address] Meg Coleman PA Primary progressive aphasia (HCC) (Primary Dx); Alzheimer's disease (HCC) 03/11/[address] [place] [id number] Bryant Yun MD 02/23/2025 3:00 PM CDT Infusion [facility] Injection Therapy [address] [facility] 5[address] [place] [address] [place] [address] Postmenopausal osteoporosis (Primary Dx) from Last 3 Months Immunizations Immunization Administration Dates Next Due Influenza, Quadrivalent, Rec ombinant, Egg Free, Preservative Free, Intramuscular 08/16/2021,09/17/2019 Influenza, Quadrivalent, Spl it, Preservative Free, Intramuscular 07/23/2018 Influenza, Trivalent, Preservative Free, Intramu scular 07/25/2017 Influenza, Unspecified 07/03/2020 Pneumococcal Polysaccharide PPV23 06/29/2020,02/2012 TD Preservative Free 10/17/2011 Tdap 06/22/2018,10/29/2017 Surgical History Surgery Date Site/Laterality Comments NC DILATION & CURETTAGE DX&/THER NONOBSTETRIC BLADDER SURGERY [...] and Family Not on file 12/13/2019 Attends [employer] Services Not on file 12/12 Active Member [...] on file Legal Sex Female 9:51 AM INDUSTRY OPERATIONS INVESTIGATOR Gender Identity Not on file Sexual [...] 08/21/20282017, 10/31/2014 Medical Devices Explanted Type Area Building Pressure Washer Device Identifier Shelf Expiration Date Model / Serial / Lot [employer] 6571 Rojo Flexi-Stent 7fr 3cm Small Pigtail Flexible .035in Stent - [id number] Implanted:Qty: 1 on 04/19/2019 by Jim Shelby MD at [facility] Explanted:Qty: 1 on 04/21/2019 at [facility] Stent Pancreas [employer] 11/12/2023 657 1 / / [id number] Conmed Tracie [id number] Hunter Viabil 10mm 8.5fr 6cm 200cm Fully Covered Self Expand Pull - [id number] - [id number] Implanted:Qty: 1 on 04/19/2019 by Jim Shelby MD at [facility] Explanted:Qty: 1 on 04/21/2019 at [facility] Stent Bile Duct [employer] Tracie 12/21/2021 [id number] / [id number] / Procedures Procedure Name Priority Date/Time Associated Diagnosis Comments SCREENING MAMMOGRAM BILATERAL W LEDA Schedule Routine, Read Routine (OP Routine) 12/24/2021 2:23 PM CDT Screening mammogram, encounter for COLONOSCOPY 08/21/2018 3:07 PM INDUSTRY OPERATIONS INVESTIGATOR from Last 3 Months or Most Recently [...] compared to prior imaging studies performed at [facility] on 09/07/2018 and 12/01/2020, and at [facility] on 11/01/2019. There are scattered areas [...] compared to prior imaging studies performed at [facility] on 09/07/2018 and 12/01/2020, and at [facility] on 11/01/2019. There are scattered areas of fibroglandular density. There is no suspicious abnormality in either breast. Impression: There is no mammographic evidence of malignancy. Annual screening mammography is recommended. OVERALL FINAL ASSESSMENT: BI-RADS CATEGORY 1: Negative. us Self Screening Mammogram IMG MAMMO PROCEDURES Fi nal Result * COLONOSCOPY (08/21/2018 3:07 PM INDUSTRY OPERATIONS INVESTIGATOR) Anatomical Region Laterality Modality Other Narrative Procedure Note Jim Shelby MD - 08/21/2018 3:07 PM CST ENDOSCOPY LAB Patient Name: Pina Reynaga Procedure Date: 08/21/2018 3:07 PM Admit Type: Outpatient Room: [facility] Date of : 1970 Instrument [...] bowel preparation was evaluated using the BBPS ([place] Bowel Preparation Scale) with scores of: Right [...] Most Recently Relevant to Health Maintenance Insurance [facility] TRADITIONAL [facility] FEDERAL [facility] [employer]AL Advance Directives For more information, please contact: [phone] * Full Code (Latest Code Status on File) Date Activated Date Inactivated Comments 05/28/2019 6:46 PM 05/30/2019 10:06 PM * Full Code Date Activated Date Inactivated Comments 05/05/2019 4:26 PM 05/07/2019 11:22 PM * Full Code Date Activated Date Inactivated Comments 04/19/2019 9:03 AM 04/21/2019 6:40 PM * Full Code Date Activated Date Inactivated Comments 08/21/2018 12:35 PM 08/21/2018 5:10 PM Care Teams Urban Redevelopment Specialist Relationship Specialty Start Date End Date Jonathan Amado MD PCP - General 03/18/17 Jim Shelby MD [id number] [address] Consulting Physician Gastroenterology 06/16/19
--- OUTSIDE RECORDS SUMMARY | 2025-04-29 18:17 | XMS_ITS | Clinical Summary ---
Author Organization [facility] [employer] Address [address] [place] [address] Care Team Providers Care Artist Agent Name Role Phone Jonathan Amado MD Unavailable [phone] Jonathan Amado MD Primary Care Provider [phone] Source Comments [facility],non-owned Affiliates and Associated Physician Practices is amultiple site organization consisting of ambulatory clinics and hospital sitesin [place], [place], [place] and [place]. This disclosure is being madepursuant to the Care Everywhere program and may not contain all information available regarding this patient. Last updated 18.[facility] [employer] Allergies Active Allergy Reactions Criticality Noted Date [...] fluticasone propionate (FLONASE) 50 MCG/ACT nasal spray [place] 2 (two) sprays into each nostril once daily Active ergocalciferol (DRISDOL) 1.25 MG (18983 UT) capsule Take 1 (one) capsule by [...] Active azelastine (Astepro) 205.5 MCG/SPRAY nasal spray [place] 2 (two) sprays into each nostril 2 times daily 90 mL 4 3 Active Additional Information Patient not taking.Reason: Patient adjusted, Reported on 03/08/2025 ibandronate (Boniva) 150 MG tablet Take 1 (one) tablet by mouth every 30 days 4 Active FLUoxetine (PROzac) 20 MG capsule Take 1 (one) capsule by mouth once daily 4 Active allergy injection Per [facility] Otolaryngology protocol Active fexofenadine (Cassie) 180 MG tablet Take 1 (one) tablet by mouth once daily Active Vitamin D, Ergocalciferol , 76772 units CAPS Take 1 (one) capsule by [...] Description 04/19/2025 3:40 PM CDT Clinical Support [facility] [address] [place] [phone] Allergic rhinitis due to pollen, unspecified seasonality 04/19/2025 Travel 04/05/2025 3:40 PM CDT Clinical Support [facility] [address] [place] [phone] Allergic rhinitis due to pollen, unspecified seasonality 04/05/2025 Travel 03/29/2025 3:40 PM CDT Clinical Support [facility] [address] [place] [phone] Allergic rhinitis due to pollen, unspecified seasonality 03/29/2025 Travel 03/22/2025 3:40 PM CDT Clinical Support [facility] [address] [place] [phone] Allergic rhinitis due to pollen, unspecified seasonality 03/22/2025 Travel 03/15/2025 3:40 PM CDT Clinical Support [facility] [address] [place] [phone] Allergic rhinitis due to pollen, unspecified seasonality 03/15/2025 Travel 03/08/2025 3:40 PM CDT Clinical Support [facility] [address] [place] [phone] Allergic rhinitis due to pollen, unspecified seasonality 03/08/2025 Travel 03/01/2025 3:20 PM CDT Clinical Support [facility] [address] [place] [phone] Allergic rhinitis due to pollen, unspecified seasonality 03/01/2025 Travel 02/22/2025 3:40 PM CDT Clinical Support [facility] [address] [place] [phone] Allergic rhinitis due to pollen, unspecified seasonality 02/22/2025 Travel 02/08/2025 3:20 PM CDT Clinical Support [facility] [address] [place] [phone] Allergic rhinitis due to pollen, unspecified seasonality 02/08/2025 Travel 02/01/2025 3:20 PM CDT Clinical Support [facility] [address] [place] [phone] Allergic rhinitis due to pollen, unspecified seasonality [...] 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 [address] [facility] [id number] [facility] ([facility]3] [facility] - CHEMISTRY ORDERABLES Fi nal Result [facility] INSURANCE BILL [address] [place] [address] * HEPATITIS C ANTIBODY (02/05/2016 11:21 AM CDT) Pathologist [facility] Hepatitis C Virus Antibody <0.1 0.0 - 0.9 s/co ratio [facility] ([facility]) Comment: Negative: < 0.8 Indeterminate: 0.8 - 0.9 Positive: > 0.9 The CDC recommends that a positive HCV antibody result be followed up with a HCV Nucleic Acid Amplification test (256474). Blood specimen (specimen) BLOOD SPECIMEN / Unknown 02/05/2016 11:21 AM CDT 02/05/2016 4:02 PM CDT Narrative [facility] ([facility]) - 02/13/2016 11:20 AM CDT [facility]formed at: [facility] [address] [place], [place] [id number] Feller Machine Operator: Darwin Hunter PhD, Phone: [phone] us Sarika [facility] - CHEMISTRY ORDERABLES Ed ited Result - Final [facility] ([facility]) [address] [place] [address], [facility] from Last 3 Months or Most Recently Relevant to Health Maintenance Insurance [facility] Address: [facility] [id number] [place] [id number] Care Teams Artist Agent Relationship Specialty Start Date End Date Jonathan Amado MD [address] [place] [address] PCP - General Family Medicine 09/15/23 Jonathan Amado MD [address] [place] [address] 06/24/13
--- OUTSIDE RECORDS SUMMARY | 2025-04-29 18:17 | XMS_ITS | Clinical Summary ---
Author Organization [facility] Address [address] [place] [address] Care Team Providers Care Plasma Table Operator Name Role Phone Unavailable Primary Care [...]
--- OUTSIDE RECORDS SUMMARY | 2025-04-29 18:17 | XMS_ITS | Encounter Summary ---
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
--- OUTSIDE RECORDS SUMMARY | 2025-04-29 18:17 | XMS_ITS | Clinical Summary ---
Author Organization 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
--- OUTSIDE RECORDS SUMMARY | 2025-04-29 18:17 | XMS_ITS | Referral Summary ---
Author Organization [facility] Address [address] [place] [address] Care Team Providers Care Appeals Coordinator Name Role Phone Jonathan Amado MD Primary Care Provider [phone] Jim Shelby MD Unavailable [phone] Encounters Date Type Department Care Team Description 04/22/2025 Telephone [facility] Memory Diagnostic [address] [facility] First Floor [address] [place] [address] Alexis Palma, COMPUTER EQUIPMENT INSTALLER 04/19/2025 Telephone [facility] Memory Diagnostic [address] [facility] First Floor [address] [place] [address] Alexis Palma, COMPUTER EQUIPMENT INSTALLER 04/18/2025 3:15 PM CDT Office Visit [facility] [address] 6th [place] [address] [place] [phone] Meg Coleman PA Primary progressive aphasia (HCC) (Primary Dx); Alzheimer's disease (HCC) 03/11/2025 Telephone [facility] Bone Health [address] [facility] [address] [place] [address] Bryant Yun MD 02/23/2025 3:00 PM CDT Infusion [facility] Injection Therapy [address] [place] [address] 5th [place] [address] [place] [address] Postmenopausal osteoporosis (Primary Dx) from [...] 06/24/2013 Sulfasalazine Rash Medium 04/24/2012 Body aches [place] Pollen-Short Ragweed Unknown 01/28/2023 ragweed - allergy Medications cetirizine (ZyrTEC) 10 mg tablet Take 1 tablet (10 mg total) by mouth daily Active acetaminophen (TYLENOL) 325 mg tablet Take 2 tablets (650 mg total) by mouth every 8 (eight) hours 30 tablet 9 Active Additional Information Patient not taking.Reported on 04/18/2025 tobramycin, bulk, 900 mcg/mg (not less than, MCFP) powder Add 1 capsule of 20mg to [...] (04/21/2019): Added automatically from request for surgery [id number] Elevated CK 03/01/2019 Urticaria 03/01/2019 Memory loss [...] on file 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 Gender Identity Not on file Sexual [...] on file Medical Devices Explanted Type Area Snack Bar Cook Device Identifier Shelf Expiration Date Model / Serial / Lot [employer] 6571 Rojo Flexi-Stent 7fr 3cm Small Pigtail Flexible .035in Stent - [id number] Implanted:Qty: 1 on 04/19/2019 by Jim Shelby MD at [facility] Explanted:Qty: 1 on 04/21/2019 at [facility] Stent Pancreas [employer] 11/12/2023 657 1 / / [id number] [id number] [place] Viabil 10mm 8.5fr 6cm 200cm Fully Covered Self Expand Pull - [id number] - [id number] Implanted:Qty: 1 on 04/19/2019 by Jim Shelby MD at [facility] Explanted:Qty: 1 on 04/21/2019 at [facility] Stent Bile Duct [employer] Tracie 12/21/2021 [id number] / [id number] / Procedures Procedure Name Priority Date/Time Associated Diagnosis Comments SCREENING MAMMOGRAM BILATERAL W LEDA Schedule Routine, Read Routine (OP Routine) 12/24/2021 2:23 PM CDT Screening mammogram, encounter for COLONOSCOPY 08/21/2018 3:07 PM IMMIGRATION CASE WORKER from Last 3 Months or Most Recently [...] compared to prior imaging studies performed at [facility] on 09/07/2018 and 12/01/2020, and at [facility] on 11/01/2019. There are scattered areas of [...] compared to prior imaging studies performed at [facility] on 09/07/2018 and 12/01/2020, and at [facility] on 11/01/2019. There are scattered areas of fibroglandular density. There is no suspicious abnormality in either breast. Impression: There is no mammographic evidence of malignancy. Annual screening mammography is recommended. OVERALL FINAL ASSESSMENT: BI-RADS CATEGORY 1: Negative. us Self Screening Mammogram IMG MAMMO PROCEDURES Fi nal Result * COLONOSCOPY (08/21/2018 3:07 PM IMMIGRATION CASE WORKER) Anatomical Region Laterality Modality Other Narrative Procedure Note Jim Shelby MD - 08/21/2018 3:07 PM CST ENDOSCOPY LAB Patient Name: Pina Reynaga Procedure Date: 08/21/2018 3:07 PM Admit Type: Outpatient Room: [facility] 8 Date of : 1970 Instrument Name: [...] bowel preparation was evaluated using the BBPS ([place] Bowel Preparation Scale) with scores of: Right [...] Most Recently Relevant to Health Maintenance Insurance [facility] [place] [address] [place] [address] [facility] Advance Directives For more information, please contact: [phone] * Full Code (Latest Code Status on File) Date Activated Date Inactivated Comments 05/28/2019 6:46 PM 05/30/2019 10:06 PM * Full Code Date Activated Date Inactivated Comments 05/05/2019 4:26 PM 05/07/2019 11:22 PM * Full Code Date Activated Date Inactivated Comments 04/19/2019 9:03 AM 04/21/2019 6:40 PM * Full Code Date Activated Date Inactivated Comments 08/21/2018 12:35 PM 08/21/2018 5:10 PM Care Teams Appeals Coordinator Relationship Specialty Start Date End Date Jonathan Amado MD PCP - General 03/18/17 Jim Shelby MD [address] [address] Consulting Physician Gastroenterology 06/16/19
--- OUTSIDE RECORDS SUMMARY | 2025-04-29 18:17 | XMS_ITS | Encounter Summary ---
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
[2025-04-29] MEDS: SODIUM CHLORIDE 0.9% IV 1,000 ML 999 ML IV CONT (19:06)
[2025-04-29] MEDS: KETOROLAC 15 MG/ML VIAL (*BKC) IV PUSH (19:51)
[2025-04-29 20:30] VITALS: BP 132/76; PULSE 75; RESP 17; TEMP 36.7; O2SAT 99
== END 2025-04-29 20:31 | disposition home or self-care (01) ==
PROVIDERS: Physician Assistant; Emergency Provider Registered Nurse; PCP Family Medicine
DX: K59.01 Slow transit constipation (principal); K83.8 Other specified diseases of biliary tract; M79.605 Pain in left leg; M79.604 Pain in right leg; G30.0 Alzheimer's disease with early onset; F02.80 Dementia in other diseases classified elsewhere, unspecified severity, without behavioral disturbance, psychotic disturbance, mood disturbance, and anxiety; R47.01 Aphasia; J45.20 Mild intermittent asthma, uncomplicated; I73.00 Raynaud's syndrome without gangrene; E55.9 Vitamin D deficiency, unspecified; D47.2 Monoclonal gammopathy; D80.2 Selective deficiency of immunoglobulin A [IgA]; M81.0 Age-related osteoporosis without current pathological fracture; M19.90 Unspecified osteoarthritis, unspecified site; M85.80 Other specified disorders of bone density and structure, unspecified site; M79.7 Fibromyalgia; G47.419 Narcolepsy without cataplexy; Z90.49 Acquired absence of other specified parts of digestive tract; Z90.710 Acquired absence of both cervix and uterus
CPT/HCPCS: 36415; 74176; 80053; 81001; 83690; 83880; 85025; 85610; 85730; 93970; 96361; 96374; 99284; J1885; J7030

== ENCOUNTER 2025-07-25 13:59 | Emergency (ER) | payer BC, SELFPAY ==
--- OUTSIDE RECORDS SUMMARY | 2024-07-16 03:45 | XMS_ITS ---
Author Organization [facility] johana Address [email or web address] [place] [address] Care Team Providers Care [employer] Worker Name Role Phone Jonathan Amado MD Primary Care Provider Cristi Powers Unavailable [phone] Allergies Allergen (clinical drug ingredient) Drug/Non Drug Allergy documented on EMR Reaction Allergy Type Onset Date Status ciprofloxacin Cipro Unknown Drug Allergy 07/16/2021 Ac tive Ciprofloxacin Unknown Drug Allergy 07/16/2021 Ac tive REASON FOR VISIT rmd,f/u,cc Encounters Encounter Location Date Provider Diagnosis [facility] [email or web address] [place] [address] 07/16/2024 Cristi Foss Inflammatory polyarthropathy M06.4 ; Pain in unspecified joint M25.50 ; Anesthesia of skin R20.0 and Other shelter (current) drug therapy Z79.899 Assessments Encounter Date Diagnosis (ICD Code) Assessment Notes Treatment Notes Treatment Clinical Notes Section Notes 07/16/2024 Inflammatory polyarthropathy (ICD-10 - M06.4) 07/16/2024 Pain in unspecified joint (ICD-10 - M25.50) 07/16/2024 Anesthesia of skin (ICD-10 - R20.0) 07/16/2024 Other shelter (current) drug therapy (ICD-10 - Z79.899) Plan Of Treatment Next Appt Details Follow Up: 3 Months, Reason: Progress Notes * Pina REYNAGA KDOB:06/1970 (55 yo F)Acc No.[id number]:07/16/2024 Progress Notes Patient: Rajendra Pina QUIGLEY Appointment Provider: Edd Foss MD :1970 A ge:54 Y S ex:Female Date:07/16/2024 Address:[id number] Pcp:Jonathan Amado MD Subjective: * Chief Complaints: * 1 . Rmd,f/u,cc. * HPI: A dvance Care Planning: No acute joint swelling. No significant AM stiffness, gelling. No significant rash. No significant bruises. No cough. No SOB. No CP. No F/C/S. No major GI upset. Bowels working. Energy low. Sleep OK. Tolerates meds. Wt. stable. Appetite stable.Pain and stiffness at fingers.No real AM stiffness. Overdue for eye exams. Some pain at knees. GI upset with NSAIDS. no GI upset. * ROS: E nergy OK. Sleep OK . * Medical History: J oint pain; , Numbness; , Osteoarthritis; , Polyarthropathy, Inflammatory, Date of Onset: 08/06/2021; . * Surgical History: D &C; 2021-07-16, Cyst removal; 2021-07-16, Hysterectomy; 2021-07-16, Bladder Surgery; 2021-07-16, Cyst excision; 2021-07-16, Sinus Surgery; 2021-07-16. 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 * Allergies: C ipro: Allergy - Onset Date 07/16/2021, Ciprofloxacin: Allergy - Onset Date 07/16/2021. Objective: * Vitals: * Examination: G eneral Examination: P hysical Examination Constitutional Appearance : well nourished, alert, in no acute distress Head and Face/Head : NC/AT Inspection : normocephalic, atraumatic Eyes/Conjunctivae : conjunctiva normal Sclerae : sclera white Psychiatric/Judgment and Insight : judgment and insight intact Mood and Affect : mood normal, affect appropriate Cervical Spine: normal curvatures Right Upper Extremity Hand : NS Left Upper Extremity Hand : NS Gait: gait normal . Assessment: * Assessment: 1. I nflammatory polyarthropathy - M06.4 (Primary) S pecify :Src Problem: Polyarthropathy, Inflammatory 2 . P ain in unspecified joint - M25.50 S pecify :Src Problem: Joint Pain 3 . A nesthesia of skin - R20.0 S pecify :Src Problem: Numbness 4 . O ther shelter (current) drug therapy - Z79.899 Plan: * Treatment: * Procedure Codes: G 2211 Complex e/m visit add on * Follow Up: 3 Months * Billing Information: * Visit Code: 80381 Office Visit, Est Pt., Level 4. * Procedure Codes: G2211 Complex e/m visit add on. * Electronic signature of Curt Foss MD on 07/25/2025 at 03:10 PM CDT Sign off status: Pending * Appointment Provider: Edd Foss MD Date: Generated for Printing/Faxing/eTransmitting on: 03:10 PM CDT History and Physical Notes * Examination Category Sub-Category Detail Notes Category Not es General Examination Physical Examination Constitutional Appearance : well nourished, alert, in no acute distress Head and Face/Head : NC/AT Inspection : normocephalic, atraumatic Eyes/Conjunctivae : conjunctiva normal Sclerae : sclera white Psychiatric/Judgment and Insight : judgment and insight intact Mood and Affect : mood normal, affect appropriate Cervical Spine: normal curvatures Right Upper Extremity Hand : NS Left Upper Extremity Hand : NS Gait: gait normal
--- NOTE | ~2025-07-25 | CT_ITS ---
CT brain wo con HISTORY:ams COMPARISON: None. TECHNIQUE: Axial images were obtained of the head without intravenous contrast. FINDINGS: No acute intracranial hemorrhage, mass effect or midline shift. No extra-axial fluid collections. The calvarium is intact. Opacification of the left frontal sinus. Remaining visualized paranasal sinuses and mastoid air cells are clear. IMPRESSION: No acute intracranial hemorrhage or extra axial fluid collections. Opacifications of the left frontal sinus. All CT scans at this facility are performed using low dose modulation techniques as appropriate to perform exam including the following: automated exposure control; use of iterative reconstruction technique; adjustment of the mA and/or kV according to patient size (this includes techniques or standardized protocols for targeted exams where dose is matched to indication/reason for exam). Reviewed, dictated and finalized at location S. IMPRESSION: No acute intracranial hemorrhage or extra axial fluid collections. Opacifications of the left frontal sinus. All CT scans at this facility are performed using low dose modulation techniqu es as appropriate to perform exam including the following: automated exposure c ontrol; use of iterative reconstruction technique; adjustment of the mA and/or kV according to patient size (this includes techniques or standardized protocol s for targeted exams where dose is matched to indication/reason for exam).
--- NOTE | ~2025-07-25 | US_ITS ---
BILATERAL US venous doppler LE BI Indication: swelling BLE/feet Comparison: None Technique: Multiple douglass scale and color Doppler sonographic images were obtained of the internal jugular, subclavian, axillary, brachial, basilar, radial and ulnar veins. Findings: Venous System:There is thrombus with diminished flow in the left posterior tibial vein, the remaining visualized deep venous system appears unremarkable. Soft tissues: Soft tissues are unremarkable. Impression: 1. Left posterior tibial DVT Reviewed, dictated and finalized at location P. Impression: 1. Left posterior tibial DVT
--- NOTE | ~2025-07-25 | XR_ITS ---
XR foot RT min 3V INDICATION: foot bruising . COMPARISON: None. FINDINGS: Frontal, lateral and oblique views of the right foot were obtained. There is no acute fracture or dislocation. IMPRESSION: Radiographic examination of the right foot demonstrates no acute fracture or dislocation. Reviewed, dictated and finalized at location S. IMPRESSION: Radiographic examination of the right foot demonstrates no acute fracture or di slocation.
[2025-07-25 15:06] VITALS: BP 147/97; PULSE 71; RESP 16; TEMP 36.9; O2SAT 100
--- OUTSIDE RECORDS SUMMARY | 2025-07-25 15:10 | XMS_ITS | Clinical Summary ---
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
--- OUTSIDE RECORDS SUMMARY | 2025-07-25 15:10 | XMS_ITS | Encounter Summary ---
Author Organization [facility] Address [address] [place] [address] Phone Care Team Providers Care Lockstitch Shoulder Joiner Name Role Phone Jonathan Amado MD Primary Care Provider [phone] Jim Shleby MD Unavailable [phone] Encounter Details Date Type Department Care Team (Late st Contact Info) Description 06/06/2025 Telephone [facility] [address] [place] [address] 7th Floor [facility] [place] [address] Juancho Farris MSW Social History Tobacco Use Types Packs/Day Years [...] No 12/13/2019 Social Connection and Isolation Panel Answer Date Recorded Frequency of Communication with Friends [...] exercise at this level? Not asked 07/03/2020 AUDIT-C Answer Date Recorded Q1: How often do you have a drink containing alcohol? Never 06/01/2025 Q2: How many drinks containi ng alcohol do you have on a typical day when you are drinking? Patient does not drink Q3: How often do you have si x or more drinks on one occasion? Never 06/01/2025 Personal Safety Answer Date Recorded Have you ever been in or are you currently in a harmful physical or emotional relationship or is someone making you feel afraid or unsafe? 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
--- OUTSIDE RECORDS SUMMARY | 2025-07-25 15:10 | XMS_ITS | Clinical Summary ---
Author Organization [facility] Address [address] [place] [address] Care Team Providers Care Ambulance Officer Name Role Phone Jonathan Amado MD Unavailable [phone] Jonathan Amado MD Primary Care Provider [phone] Source Comments [facility],non-owned Affiliates and Associated Physician Practices is amultiple site organization consisting of ambulatory clinics and hospital sitesin [place], [place], [place] and [place]. This disclosure is being madepursuant to the Care Everywhere program and may not contain all information available regarding this patient. Last updated 18.[facility] Allergies Active Allergy Reactions Criticality Noted Date [...] fluticasone propionate (FLONASE) 50 MCG/ACT nasal spray [place] 2 (two) sprays into each nostril once daily Active ergocalciferol (DRISDOL) 1.25 MG (05992 UT) capsule Take 1 (one) capsule by [...] Active azelastine (Astepro) 205.5 MCG/SPRAY nasal spray [place] 2 (two) sprays into each nostril 2 times daily 90 mL 4 3 Active Additional Information Patient not taking.Reason: Patient adjusted, Reported on 03/08/2025 ibandronate (Boniva) 150 MG tablet Take 1 (one) tablet by mouth every 30 days 4 Active FLUoxetine (PROzac) 20 MG capsule Take 1 (one) capsule by mouth once daily 4 Active allergy injection Per [facility] Otolaryngology protocol Active fexofenadine (Cassie) 180 MG tablet Take 1 (one) tablet by mouth once daily Active Vitamin D, Ergocalciferol , 23991 units CAPS Take 1 (one) capsule by [...] injection Inject 2.34 mL subcutaneously once Active sodium chloride-sodiu m bicarb 2300-700mg (Neilmed Sinus Rinse) 2300-700 MG Kit [place] 1 (one) kit into each nostril once daily 5 Active omeprazole (PriLOSEC) 40 MG capsule Take 1 (one) capsule by mouth once daily 5 026 Active Rexulti 1 MG tablet Building up, today 0.5mg, tomorrow starts 1 mg for a week then increases to 2 mg daily. Active mirtazapine (Remeron) 7.5 MG tablet Take 1 (one) tablet by mouth at bedtime 5 025 Active Active Problems Problem Noted Date Diagnosed [...] Encounters Date Type Department Care Team Description 07/14/2025 10:40 AM CDT Clinical Support [facility] [address] [place] [phone] Allergic rhinitis due to pollen, unspecified seasonality 07/14/2025 Travel 06/28/2025 3:40 PM CDT [facility] [address] [place] [phone] Allergic rhinitis due to pollen, unspecified seasonality 06/28/2025 Travel 06/21/2025 3:40 PM CDT Clinical Support [facility] [address] [place] [phone] Fatigue, unspecified type 06/21/2025 Travel 06/14/2025 3:40 PM CDT Clinical Support [facility] [address] [place] [phone] Allergic rhinitis due to pollen, unspecified seasonality 06/14/2025 Travel 06/07/2025 3:40 PM CDT Clinical Support [facility] [address] [place] [phone] Allergic rhinitis due to pollen, unspecified seasonality 06/07/2025 Travel 05/24/2025 3:40 PM CDT Clinical Support [facility] [address] [place] [phone] Allergic rhinitis due to pollen, unspecified seasonality 05/24/2025 Travel 05/17/2025 3:40 PM CDT Clinical Support [facility] [address] [place] [phone] Allergic rhinitis due to pollen, unspecified seasonality 05/17/2025 Travel 05/10/2025 3:40 PM CDT Clinical Support [facility] [address] [place] [phone] Allergic rhinitis due to pollen, unspecified seasonality 05/10/2025 Travel 05/03/2025 3:40 PM CDT Clinical Support [facility] [address] [place] [phone] Allergic rhinitis due to pollen, unspecified seasonality 05/03/2025 Travel from Last 3 Months Immunizations Immunization [...] 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 Not on file [...] Care Team (Late st Contact Info) Description 07/26/2025 3:20 PM CDT Clinical Support [facility] [address] [place] [phone] 08/02/2025 3:20 PM CDT Clinical Support [facility] [address] [place] [phone] 08/09/2025 3:20 PM CDT Clinical Support [facility] [address] [place] [phone] Health Maintenance Due Date Last Done Comments COLOGCHITO (AGES 45-75) - COLON CA SCREENING 1970 [...] 12/25/2023 12/24/2021, 12/11, 12/01/2020, Additional history exists DEPRESSION SCREENING 10/13/2024 COVID-19 VACCINE (2024- season) 2025 07/17/2021, 12/29/2020, 12/08/2020 INFLUENZA VACCINE (#1) 2025 , 07/03/2020, 09/17/2019, Additional history exists DTAP/TDAP/TD VACCINES (3 - Td or Tdap) 06/22/2028 06/22/2018, 10/29/2017 COLON MONITORING 06/01/2035 06/01/2025, 08/21/2018 COLONOSCOPY - COLON CA SCREENING 06/01/2035 06/01/2025, 08/21/2018 Colorectal Cancer Screening 06/01/2035 HEPATITIS C SCREENING Completed 02/05/2016 HIB VACCINE [...] Procedure Name Priority Date/Time Associated Diagnosis Comments HEPATITIS C ANTIBODY Routine 02/05/2016 11:21 AM CDT from Last 3 Months or Most Recently Relevant to Health Maintenance Results * HEPATITIS C ANTIBODY (02/05/2016 11:21 AM CDT) Hepatitis C Virus Antibody <0.1 0.0 - 0.9 s/co ratio [facility] ([facility]) Comment: Negative: < 0.8 Indeterminate: 0.8 - 0.9 Positive: > 0.9 The CDC recommends that a positive HCV antibody result be followed up with a HCV Nucleic Acid Amplification test ([id number]). Blood specimen (specimen) BLOOD SPECIMEN / Unknown 02/05/2016 11:21 AM CDT 02/05/2016 4:02 PM CDT Narrative [facility] ([facility]) - 02/13/2016 11:20 AM CDT Performed at: 01 - [facility] [address], [place] [id number] Residential Electrician: Darwin Hunter PhD, Phone: [phone] [facility] - CHEMISTRY ORDERABLES Ed ited Result - Final [facility] [address] [place] [address], [facility] from Last 3 Months or Most Recently Relevant to Health Maintenance Insurance [facility] Care Teams Ambulance Officer Relationship Specialty Start Date End Date Jonathan Amado MD [facility] [place] [phone] PCP - General Family Medicine 09/15/23 Jonathan Amado MD [facility] [place] [phone] 06/24/13
--- OUTSIDE RECORDS SUMMARY | 2025-07-25 15:10 | XMS_ITS | Clinical Summary ---
Author Organization [facility] Address [address] [place] [address] Care Team Providers Care Rehab Services Aide Name Role Phone Jonathan Amado MD Primary Care Provider [phone] Jim Shelby MD Unavailable [phone] Allergies Active Allergy Reactions Criticality Noted Date [...] 06/24/2013 Sulfasalazine Rash Medium 04/24/2012 Body aches [place]mor Pollen-Short Ragweed Unknown 01/28/2023 ragweed - allergy Medications cetirizine (ZyrTEC) 10 mg tablet Take 1 tablet (10 mg total) by mouth daily Active acetaminophen (TYLENOL) 325 mg tablet Take 2 tablets (650 mg total) by mouth every 8 (eight) hours 30 tablet 05/30/20 19 Active EPINEPHrine 0.3 mg/0.3 mL auto-injection syringe Inject 0.3 mL (0.3 mg total) into the muscle as instructed as needed 01/13/20 19 Active albuterol HFA (PROVENTIL HFA,VENTOLIN HFA,PROAIR HFA) 90 mcg/actuation inhaler INHALE 2 PUFFS INHALATION ROUTE EVERY 4 HOURS NEEDED Active azelastine 205.5 mcg (0.15 %) spray,non-aerosol Administer 0.3 mL (2 sprays total) into affected nostril(s) 2 (two) times a day 01/29/20 23 Active ibandronate (BONIVA) 150 mg tablet Take 1 tablet (150 mg total) by mouth every 30 (thirty) days Take in AM with glass of water prior to food, don't lie down for 30 minutes. 1 tablet 3 08/25/20 23 Active Additional Information Patient not taking.Reported on 05/18/2025 ergocalciferol (VITAMIN D) 50,000 unit capsule Take 1 capsule (50,000 Units total) by mouth once a week Take 1 capsule every 7 days for 8 weeks 8 capsule 09/27/20 24 Active omeprazole (PriLOSEC) 40 mg capsuleIndications :Gastroesophageal reflux disease, unspecified whether esophagitis present Take 1 capsule (40 mg total) by mouth daily 30 capsule 11 05/12/20 25 026 Active ondansetron ODT (ZOFRAN-ODT) 4 mg disintegrating tabletIndications: Gastroesophageal reflux disease, unspecified whether esophagitis present,Abdominal pain,Rectal bleeding Take 1 tablet (4 mg total) by mouth every 6 (six) hours as needed for nausea or vomiting 2 tablet 05/12/20 25 Active estradioL (Estrace) 0.01 % (0.1 mg/gram) vaginal creamIndications:A trophy of Vulva Insert 2 g into the vagina 2 (two) times a week 42.5 g 2 05/19/20 25 Active calcium carbonate (TUMS) 500 mg (200 mg elemental calcium) chewable tablet Take 1 tablet/chew tab (500 mg total) by mouth daily Active mirtazapine (REMERON) 7.5 mg tablet Take 1 tablet (7.5 mg total) by mouth nightly 30 tablet 5 07/05/20 25 025 Active brexpiprazole (Rexulti) 2 mg tablet Take 1 tablet (2 mg total) by mouth daily 30 tablet 4 07/05/20 25 Active brexpiprazole (Rexulti) 2 mg tablet Take 1 tablet (2 mg total) by mouth daily 30 tablet 6 06/24/20 25 025 Discontin ued(Reord er) brexpiprazole (REXULTI) 3 mg tablet Take 1 tablet (3 mg total) by mouth daily 30 tablet 5 07/04/20 25 025 Discontin ued(Alter suyapa therapy) Active Problems Problem Noted Date Diagnosed Date Rectal bleeding 05/12/2025 Assessment & Plan (05/12/2025 9:34 AM CDT): Does report occasional bright red blood with having a bowel movement. Does note occasional constipation as well. Her last colonoscopy was in 2018. -Colonoscopy scheduled at this time to rule out possible etiologies. -Educated on importance having soft stools, and minimizing stranding. Recommended increase fiber supplementation IE Metamucil may utilize MiraLax PRN Orders: Case Request Operating Room: ESOPHAGOGASTRODUODENOSCOPY, COLONOSCOPY bisacodyl EC (DULCOLAX EC) 5 mg EC tablet; Take 1 tablet (5 mg total) by mouth daily as needed for constipation ondansetron ODT (ZOFRAN-ODT) 4 mg disintegrating tablet; Take 1 tablet (4 mg total) by mouth every 6 (six) hours as needed for nausea or vomiting polyethylene glycol (GoLYTELY) 236-22.74-6.74 -5.86 gram solution; Take 4,000 mL by mouth once for 1 dose Arthritis of right sacroiliac joint 10/21/2024 Overview (10/21/2024): Treated with Kenalog injection, 2007 Chronic cough 10/21/2024 Easy bruising 10/21/2024 Eczema 10/21/2024 Exercise-induced asthma 10/21/2024 Overview (10/21/2024): 1997 Gastroesophageal reflux disease 10/21/2024 Overview (10/21/2024): 1996 Assessment & Plan (05/12/2025 9:34 AM CDT): Does have a history of reflux well as gastric ulcer and states that she is currently having upper abdominal pain. States that can be burning in sensation and may last multiple hours. Also having reports of nausea. Was recently seen in the ER regarding this can complaints and CT scan showed pneumobilia, constipation. She is status post cholecystectomy and ERCP for SOD in the past. -Educated on importance of a low-fat diet as well as eating small portions throughout the day. -We will start her on omeprazole 40 mg b.i.d. to help with her complaints -EGD scheduled at this time for further investigation Orders: omeprazole (PriLOSEC) 40 mg capsule; Take 1 capsule (40 mg total) by mouth daily Case Request Operating Room: ESOPHAGOGASTRODUODENOSCOPY, COLONOSCOPY bisacodyl EC (DULCOLAX EC) 5 mg EC tablet; Take 1 tablet (5 mg total) by mouth daily as needed for constipation ondansetron ODT (ZOFRAN-ODT) 4 mg disintegrating tablet; Take 1 tablet (4 mg total) by mouth every 6 (six) hours as needed for nausea or vomiting polyethylene glycol (GoLYTELY) 236-22.74-6.74 -5.86 gram solution; Take 4,000 mL by mouth once for 1 dose Hyperinflation of lungs 10/21/2024 Hypogammaglobulinemia 10/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 Also reports that she has had frequent UTIs. States that she is having a burning sensation in her upper abdominal area and also having complaints of lower abdominal pain as well. Does report occasional constipation. Does admit that diet is not the greatest at this time. -Educated on importance of diet -EGD/colonoscopy Orders: Case Request Operating Room: ESOPHAGOGASTRODUODENOSCOPY, COLONOSCOPY bisacodyl EC (DULCOLAX EC) 5 mg EC tablet; Take 1 tablet (5 mg total) by mouth daily as needed for constipation ondansetron ODT (ZOFRAN-ODT) 4 mg disintegrating tablet; Take 1 tablet (4 mg total) by mouth every 6 (six) hours as needed for nausea or vomiting polyethylene glycol (GoLYTELY) 236-22.74-6.74 -5.86 gram solution; Take 4,000 mL by mouth once for 1 dose Elevated CK 03/01/2019 Urticaria 03/01/2019 Memory loss [...] Encounters Date Type Department Care Team Description 07/22/20 Telephone [facility] [address] [place] [address] [address] [place] [address] Jen Cifuentes, Maximilian Appointment 07/15/20 11:[address] [facility] OP Speech Therapy [address] [place] [address] Ronel Harrison, MANJINDER Primary progressive aphasia (HCC) (Primary Dx); AD (Alzheimer's disease); Word finding difficulty; Aphasia 07/07/20 10:[address] [facility] OP Speech Therapy [address] [place] [address] Ronel Harrison, MANJINDER Primary progressive aphasia (HCC) (Primary Dx); AD (Alzheimer's disease); Word finding difficulty; Aphasia 07/07/[address] [facility] OP Speech Therapy [address] [place] [address] 07/05/20 Telephone [facility] [address] [place] [address] Ramandeep Hayes, REFRACTORY TILE HELPER 07/04/20 [facility] [address] [place] [address] Ramandeep Hayes, REFRACTORY TILE HELPER 07/01/20 9:[address] [facility] OP Speech Therapy [address] [place] [address] Ronel Harrison, MANJINDER Primary progressive aphasia (HCC) (Primary Dx); AD (Alzheimer's disease); Word finding difficulty; Aphasia 06/30/20 [facility] [address] [place] [address] Alexis Palma, [facility] 06/29/20 [facility] [address] [place] [address] Jen Cifuentes RMA Patient issue/concern 06/24/20 11:[address] [facility] OP Speech Therapy [address] [place] [address] Ronel Harrison, MANJINDER Primary progressive aphasia (HCC) (Primary Dx); AD (Alzheimer's disease); Word finding difficulty; Aphasia 06/24/20 Telephone [facility] [address] [place] [address] [place] [phone] Jen Cifuentes RMA Med Refill 06/17/20 9:[address] [facility] OP Speech Therapy [address] [place] [address] Ronel Harrison, MANJINDER Primary progressive aphasia (HCC) (Primary Dx); AD (Alzheimer's disease); Word finding difficulty; Aphasia 06/10/20 9:[address] [facility] OP Speech Therapy [address] [place] [address] [address] [place] [address] Ronel Harrison, MANJINDER Primary progressive aphasia (HCC) (Primary Dx); AD (Alzheimer's disease); Word finding difficulty; Aphasia 06/07/20 Telephone [facility] Floor [address] [place] [phone] Jen Cifuentes, RMA 06/06/20 Orders Only [facility] Floor [address] [place] [address] Meg Coleman PA 06/06/20 Telephone [facility] [address] [place] [address] [place] [address] Juancho Farris MSW 06/06/20 Telephone [facility] [address] [place] [phone] Jen Cifuentes, RMA Medication Request 06/06/[address] [facility] OP Speech Therapy [address] [place] [address] 06/03/20 Results Follow-Up [facility] Gastroenterology at [place] [address] [facility] [address] [place] [address] Oleg Diamond MD Surgical pathology 06/01/20 12:11 PM CDT Anesthesia Event [facility] [address] [place] [address] Yaakov Mota MD Sauerwein, Kimberly K., CRNA 06/01/20 12:00 PM CDT - 06/01/20 12:[address] [facility] [address] [place] [address] Oleg Diamond MD ESOPHAGOGASTRODUODENOSCOPY BIOPSY 06/01/20 10:27 AM CDT - 06/01/20 1:50 PM CDT Hospital Encounter [facility] [address] [place] [address] Oleg Diamond MD Gastroesophageal reflux disease, unspecified whether esophagitis present; Abdominal pain; Rectal bleeding Discharge Disposition: Discharge to home or self care 05/30/20 1:[address] [facility] OP Speech Therapy [address] [place] [address] Diane Degroot, BLACKTOP PAVER OPERATOR Primary progressive aphasia (HCC) (Primary Dx); AD (Alzheimer's disease); Word finding difficulty; Aphasia 05/19/20 Results Follow-Up [facility] Obstetrics and Gynecology [address] [facility] 7th Floor [address] [place] [address] Leilani Marshall Rai, NP Urinalysis reflex to microscopic and culture Urine, clean voided, REFLEXIVE URINE CULTURE 05/18/20 4:00 PM CDT Office Visit [facility] Obstetrics and Gynecology [address] [facility] 1st Floor [address] [place] [address] Leilani Marshall Rai, NP Urgency of urination (Primary Dx); Urinary disorder; Frequency of micturition 05/18/20 9:[address] [facility] Occup Therapy [address] [place] [address] Randi Rivas, OT Alzheimer's disease; Primary progressive aphasia (HCC); Other amnesia; Aphasia 05/18/[address] [facility] OP Occup Therapy [address] [place] [address] 05/16/20 Telephone [facility] Obstetrics and Gynecology [address] [facility] 7th Floor [address] [place] [phone] Ai Finnegan RN 05/12/20 8:30 AM CDT Office Visit [facility] Gastroenterology at [place] [address] [facility] [address] [place] [phone] Carole Mckeon, MELODIE Gastroesophageal reflux disease, unspecified whether esophagitis present (Primary Dx); Abdominal pain; Rectal bleeding 05/06/[address] Floor [address] [place] [address] Jen Cifuentes, RMA Request For Order(s) 05/05/20 10:25 AM CDT Lab [facility] Outpatient Lab [address] [place] [address] 05/03/[address] [place] [address] Jen Cifuentes RMA from Last 3 Months Immunizations Immunization Administration Dates Next Due Influenza, Quadrivalent, Rec ombinant, Egg Free, Preservative Free, Intramuscular 08/16/2021,09/17/2019 Influenza, Quadrivalent, Spl it, Preservative Free, Intramuscular 07/23/2018 Influenza, Trivalent, Preservative Free, Intramu scular 07/25/2017 Influenza, Unspecified 07/03/2020 Pneumococcal Polysaccharide PPV23 06/29/2020,02/2012 TD Preservative Free 10/17/2011 Tdap 06/22/2018,10/29/2017 Surgical History Surgery Date Site/Laterality Comments OR DILATION & CURETTAGE DX&/THER NONOBSTETRIC BLADDER SURGERY [...] Hiatal hernia Migraines MRSA (methicillin resistant Staphylococcus aureus) Osteoporosis Pneumonia Allergic rhinitis Urinary tract infection 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 Dysphagia Bright red stool Chronic constipation Chronic diarrhea Anemia Diverticulosis Alzheimer disease pt and stated pt recently recieved a dx of alzheimers, has not started medication yet Family History Medical History Relation Name Comments [...] on file Legal Sex Female 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 Gender Identity Not on file Sexual [...] Sign Reading Time Taken Comments Blood Pressure 126/87 06/01/2025 1:30 PM CDT Pulse 60 06/01/2025 1:30 PM CDT Temperature 36.7 C (98 F) 06/01/2025 1:02 PM CDT Respiratory Rate 15 06/01/2025 1:30 PM CDT Oxygen Saturation 100% 06/01/2025 1:30 PM CDT Inhaled Oxygen Concentration - - Weight 70.8 kg (156 lb) 06/01/2025 10:58 AM CDT Height 157.5 cm (5' 2) 05/18/2025 3:44 PM CDT Body Mass Index 28.53 05/18/2025 3:44 PM CDT Plan of Treatment Health Maintenance Due Date Last Done Comments Depression Screening 1970 Hepatitis C Screening 1970 Hepatitis B Screening 1989 Zoster Vaccine (1 of 2) 1990 Pneumococcal vaccine <65 (3 of 3 - PCV) 06/29/2021 06/29/2020, 10/17/2011 Breast Cancer Screening-Mammogram 12/24/2022 12/24/2021, 12/01/2020, 11/01/2019, Additional history exists Covid-19 Vaccine (2024-11 6 season) 2025 07/17/2021, 12/29/2020, 12/08/2020 Influenza Vaccine (#1) 2025 , 07/03/2020, 09/17/2019, Additional history exists Regular Well Visit/Exam 18-64 10/26/2025, 07/17/2022, 07/03/2020, Additional history exists DTaP/Tdap/Td Vaccine (3 - Td or Tdap) 06/22/2028 06/22/2018, 10/29/2017, 10/17/2011 Colon Cancer Screening-Colonoscopy 06/01/2035 06/01/2025, 08/21/2018, 10/31/2014 Medical Devices Explanted Type Area Pharmacy Laboratory Technician Device Identifier Shelf Expiration Date Model / Serial / Lot Cooler [employer] 6571 Rojo Flexi-Stent 7fr 3cm Small Pigtail Flexible .035in Stent - [id number] Implanted:Qty: 1 on 04/19/2019 by Jim Shelby MD at [facility] Explanted:Qty: 1 on 04/21/2019 at [facility] Stent Pancreas [employer] 11/12/2023 657 1 / / [id number] [employer] Tracie [id number] Harvard Viabil 10mm 8.5fr 6cm 200cm Fully Covered Self Expand Pull - [id number] - [id number] Implanted:Qty: 1 on 04/19/2019 by Jim Shelby MD at [facility] Explanted:Qty: 1 on 04/21/2019 at [facility] Stent Bile Duct [employer] Tracie 12/21/2021 [id number] / [id number] / Procedures Procedure Name Priority Date/Time Associated Diagnosis Comments SURGICAL PATHOLOGY Routine 06/01/2025 12:33 PM CDT Gastroesophagea l reflux disease, unspecified whether esophagitis present Abdominal pain Rectal bleeding COLON BIOPSY 06/01/2025 12:00 PM CDT Gastroesophagea l reflux disease, unspecified whether esophagitis present Abdominal pain Rectal bleeding ESOPHAGOGASTRODUODENOSCOPY BIOPSY 06/01/2025 12:00 PM CDT Gastroesophagea l reflux disease, unspecified whether esophagitis present Abdominal pain Rectal bleeding EGD 06/01/2025 11:52 AM CDT COLONOSCOPY 06/01/2025 11:52 AM CDT REFLEXIVE URINE CULTURE Routine 05/18/20 4:44 PM CDT URINALYSIS AND REFLEX TO MICROSCOPIC AND CULTURE Routine 05/18/2025 4:44 PM CDT Urgency of urination Frequency of micturition EGFR Routine 05/05/2025 12:08 PM CDT T4, FREE Routine 05/05/2025 12:08 PM CDT THYROID FUNCTION CASCADE Routine 025 12:08 PM CDT VITAMIN B12 Routine 05/05/2025 12:08 PM CDT CREATININE Routine 05/05/2025 12:08 PM CDT VITAMIN B6 Routine 05/05/2025 12:00 PM CDT VITAMIN B1 Routine 05/05/2025 12:00 PM CDT SCREENING MAMMOGRAM BILATERA L [facility] Schedule Routine, Read Routine (OP Routine) 12/24/2021 2:23 PM CDT Screening mammogram, encounter for from Last 3 Months or Most Recently Relevant to Health Maintenance Results * Surgical pathology (06/01/2025 12:33 PM CDT) Tissue (Duodenum, Biopsy) 06/01/2025 12:33 PM CDT Tissue specimen (specimen) (Gastric/Stomach biopsy) 06/01/2025 12:33 PM CDT Tissue specimen (specimen) (Esophageal biopsy) 06/01/2025 12:34 PM CDT Tissue specimen (specimen) (Colon, Biopsy) 06/01/2025 12:52 PM CDT Narrative PATHOLOGY [facility] - 06/02/2025 12:32 PM CDT [facility] Department of Pathology [address] [place] [address] Note to Patients: This report may contain a detailed description of human tissue sent by a health care provider to the laboratory for pathologic evaluation. The content of this report is essential for diagnosis and may provide important critical findings. This information may be unfamiliar to patients to review without a medical professional present. It is advised that the patient review this report in the presence of a health care provider who can answer questions and explain the details. Final Report Patient Name: PINA ROCHE : 1970 (Age: 55) Gender: F Address: [address] [place] [address] [place] [employer] #: [id number] Service: Gastro Location: Patient Type: [facility] OUTPATIENT Taken: 06/01/2025 Received: 06/01/2025 Accessioned: 06/01/2025 Reported: 06/02/2025 Physician(s): Wilver Rodriguez M.D. Diagnosis: A. Small bowel, duodenum, biopsy - Normal duodenal mucosa B. Stomach, body and antrum, biopsy - Normal antral and oxyntic mucosa - No H. pylori organisms are identified by H&E examination C. Esophagus, distal, biopsy - Esophageal squamous and gastric cardiooxyntic type mucosa with chronic inflammation - Negative for goblet cells D. Large bowel, sigmoid colon polyp, biopsy - Hyperplastic polyp Radha Llanos MD Report Electronically Reviewed and Signed Out By Radha Llanos MD 06/02/2025 12:32:34 Specimen(s) Received: A: Duodenal biopsy rule out Celiac disease B: Gastric body and antrum biopsy rule out H.Pylori C: Distal esophageal biopsy rule out Briscoe's esophagus D: Sigmoid colon polyp x 1 cold biopsy Microscopic Description: Unless gross-only is specified, the final diagnosis for each specimen is based on a microscopic examination of each tissue sample. [facility] Distribution Clinical History: The patient is a 55-year-old woman with GERD, abdominal pain and rectal bleeding. Operative procedure: Upper GI endoscopy and colonoscopy with biopsy. Gross Description Received in four formalin jars labeled with the patient's identifiers. A. Labeled duodenal biopsy rule out celiac disease and consists of three burroughs-pink tissue fragments ranging from 0.2-0.3 cm. Entirely submitted. Labeled A1. Jar 0. B. Labeled gastric body and antrum biopsy rule out H pylori and consists of three burroughs-pink tissue fragments ranging from 0.2-0.3 cm. Entirely submitted. Labeled B1. Jar 0. C. Labeled distal esophageal biopsy rule out Briscoe's esophagus and consists of two burroughs tissue fragments measuring 0.3 cm and 0.4 cm. Entirely submitted. Labeled C1. Jar 0. D. Labeled sigmoid colon polyp x1 (cold biopsy) and consists of a 0.4 cm burroughs-pink tissue fragment, which is entirely submitted. Labeled D1. Jar 0. jjmhb/06/01/2025 14:30 CRISTINA Barnes, PA (ASCP) Microscopic slide review and interpretation for this case was performed at [facility], Department of Surgical Pathology, [address] [facility] [place], [place] [id number], [place] [address] CLIA # [id number] us Oleg Diamond MD LAB PATHOLOGY ORDERABLES Final R esult PATHOLOGY [facility] * EGD (06/01/2025 11:52 AM CDT) Anatomical Region Laterality Modality Other Narrative Procedure Note Oleg Diamond MD - 06/01/2025 11:52 AM CDT [facility] GI ENDOSCOPY Patient Name: Pina Roche Procedure Date: 06/01/2025 11:52 AM Date of : 1970 Admit Type: Outpatient Age: 55 Gender: Female Attending MD: Oleg Diamond M.D., Room: [facility] ENDOSCOPY ROOM 03 Note Status: Finalized Procedure: Upper GI endoscopy Indications: Abdominal pain, Gastro-esophageal reflux disease Referring MD: Jonathan Amado M.D. Providers: Oleg Diamond M.D. Medicines: Monitored Anesthesia Care Complications: No immediate complications. Procedure: Pre-Anesthesia Assessment: - Prior to the procedure, a History and Physicalwas performed, and patient medications and allergieswere reviewed. The risks and benefits of the procedureand the sedation options and risks were discussed withthe patient. All questions were answered and informed consent was obtained. Patient identification and proposed procedure were verified. After reviewingthe risks and benefits, the patient was deemed in satisfactory condition to undergo the procedure.The anesthesia plan was to use monitored anesthesiacare (MAC). Immediately prior to administration of medications, the patient was re-assessed foradequacy to receive sedatives. The heart rate, respiratory rate, oxygen saturations, blood pressure, adequacyof pulmonary ventilation, and response to care were monitored throughout the procedure. The physical status of the patient was re-assessed after the procedure. The benefits, risks, and alternatives to theprocedure and sedation were discussed and informed consentwas obtained. The scope was passed under direct vision. The GIF-Q180 upper endoscope was introduced through the mouth, and advanced to the second part of duodenum. The upper GI endoscopy was accomplished without difficulty. The patient tolerated the procedure well. Findings: The Z-line was irregular and was found in the distal esophagus. Thiswas biopsied with a cold forceps for evaluation to rule out Briscoe's Esophagus. A 2 cm hiatal hernia was present. Mild inflammation characterized by erythema was found in the stomach. Biopsies were taken with a cold forceps for Helicobacter pyloritesting. The examined duodenum was normal. Biopsies for histology were takenwith a cold forceps for evaluation of celiac disease. The cardia and gastric fundus were normal on retroflexion. The exam was otherwise without abnormality. A 10 mm non-bleeding diverticulum was found in the second portion ofthe duodenum. Impression: - Z-line irregular, in the distal esophagus.Biopsied. - 2 cm hiatal hernia. - Gastritis, characterized by erythema. Biopsied. - Normal examined duodenum. Biopsied. - The examination was otherwise normal. - Non-bleeding duodenal diverticulum. Recommendation: - Patient has a contact number available for emergencies. The signs and symptoms of potential delayed complications were discussed with thepatient. Return to normal activities tomorrow. Written discharge instructions were provided to thepatient. - GERD RECOMMENDATIONS given include: anti-reflux maneuvers, avoid acidic foods like oranges and tomatoes, avoidance of spicy foods, avoid eating3-4 hours before bed, elevation of the head of the bed, and weight loss. - Continue omeprazole 40 mg p.o. daily - Await pathology results. - Patient was advised to call GI office and make an appointment if symptoms persist. Oleg Diamond M.D. Oleg Diamond M.D. 06/01/2025 12:57:22 PM . Number of Addenda: 0 Note Initiated On: 06/01/2025 11:52 AM Recognized by the [employer] for promoting quality in endoscopy us Oleg Diamond MD ENDOSCOPY PROCEDURES Final Resul t * Colonoscopy (06/01/2025 11:52 AM CDT) Anatomical Region Laterality Modality Other Narrative Procedure Note Oleg Diamond MD - 06/01/2025 11:52 AM CDT [facility] GI ENDOSCOPY Patient Name: Pina Roche Procedure Date: 06/01/2025 11:52 AM Date of : 1970 Admit Type: Outpatient Age: 55 Gender: Female Attending MD: Oleg Diamond M.D., Room: [facility] ENDOSCOPY ROOM 03 Note Status: Finalized Procedure: Colonoscopy Indications: Rectal bleeding Referring MD: Jonathan Amado M.D. Providers: Oleg Diamond M.D. Medicines: Monitored Anesthesia Care Complications: No immediate complications. Estimated Blood Loss: Estimated blood loss: none. Procedure: Pre-Anesthesia Assessment: - Prior to the procedure, a History and Physicalwas performed, and patient medications and allergieswere reviewed. The risks and benefits of the procedureand the sedation options and risks were discussed withthe patient. All questions were answered and informed consent was obtained. Patient identification and proposed procedure were verified. After reviewingthe risks and benefits, the patient was deemed in satisfactory condition to undergo the procedure.The anesthesia plan was to use monitored anesthesiacare (MAC). Immediately prior to administration of medications, the patient was re-assessed foradequacy to receive sedatives. The heart rate, respiratory rate, oxygen saturations, blood pressure, adequacyof pulmonary ventilation, and response to care were monitored throughout the procedure. The physical status of the patient was re-assessed after the procedure. The benefits, risks and alternatives of theprocedure and sedation were discussed and informed consentwas obtained. All questions were answered. Please referto the signed informed consent document in the medical record. The scope was passed under direct vision.The [id number]-AF015M colonoscope was introduced through theanus and advanced to the cecum, identified byappendiceal orifice and ileocecal valve. The colonoscopy was performed without difficulty. The patient tolerated the procedure well. The quality of the bowel preparation was good. Scope withdrawal time was 10 minutes. Prep was administered in a split dose. Findings: The perianal and digital rectal examinations were normal. A diminutive (1-3 mm) polyp was found in the sigmoid colon. The polyp was removed with a cold biopsy forceps. Resection and retrieval were complete. The left colon was moderately tortuous. Non-bleeding internal hemorrhoids were found during retroflexion. The hemorrhoids were small. The exam was otherwise without abnormality. Impression: - One diminutive (1-3 mm) polyp in the sigmoidcolon, removed with a cold biopsy forceps. Resected and retrieved. - Tortuous colon. - Non-bleeding internal hemorrhoids. - The examination was otherwise normal. Recommendation: - Patient has a contact number available for emergencies. The signs and symptoms of potential delayed complications were discussed with thepatient. Return to normal activities tomorrow. Written discharge instructions were provided to thepatient. - High fiber diet. - Continue present medications. - Await pathology results. - Repeat colonoscopy in 5-10 years for surveillance based on pathology results. - Patient was advised to call GI office and make an appointment if symptoms persist. Oleg Diamond M.D. Oleg Diamond M.D. 06/01/2025 12:59:02 PM . Number of Addenda: 0 Note Initiated On: 06/01/2025 11:52 AM Recognized by the [employer] for promoting quality in endoscopy Oleg Diamond MD ENDOSCOPY PROCEDURES Final Resul t * REFLEXIVE URINE CULTURE (05/18/2025 4:44 PM CDT) Urine culture [facility] Comment:NO CULTURE INDICATED 05/18/2025 4:44 PM CDT 05/18/2025 10:13 PM CDT Leilani Marshall NP LAB MICROBIOLOGY - MOOKIE MORENO ORDERABLES Final Result [facility] [address] [place] [address] * Urinalysis reflex to microscopic and culture Urine, clean voided (05/18/2025 4:44 PM CDT) Color, ur YELLOW YELLOW [facility] Appearance, ur CLEAR CLEAR [facility] Specific gravity 1.021 1.001 - 1.035 [facility] pH, ur 6.5 5.0 - 8.0 [facility] Glucose, ur NEGATIVE NEGATIVE [facility] Bilirubin, ur NEGATIVE NEGATIVE [facility] Ketones, ur NEGATIVE NEGATIVE [facility] Blood, ur NEGATIVE NEGATIVE [facility] Protein, ur, quant NEGATIVE NEGATIVE [facility] Nitrites, ur NEGATIVE NEGATIVE [facility] Leukocyte esterase, ur NEGATIVE NEGATIVE [facility] WBC, ur 0-5 < OR = 5 /HPF [facility] RBC, ur NONE SEEN < OR = 2 /HPF [facility] Epithelial cells, squamous, ur NONE SEEN < OR = 5 /HPF [facility] Bacteria, ur, quant NONE SEEN NONE SEEN /HPF [facility] Hyaline cast NONE SEEN NONE SEEN /LPF [facility] Note [facility] Comment: This urine was analyzed for the presence of WBC, RBC, bacteria, casts, and other formed elements. Only those elements seen were reported. Urine, clean voided 05/18/2025 4:44 PM CDT 05/18/2025 10:13 PM CDT us Leilani Marshall NP LAB MICROBIOLOGY - GENER AL ORDERABLES Final Result Performing Organization Address City/[facility]/ZIP Co de Phone Number [facility] [address] [place] [address] * eGFR (05/05/2025 12:08 PM CDT) eGFR >90 >=60 mL/min/1. 73 [...] interpretive data was last reviewed 2021. Blood 05/05/2025 12:0 8 PM CDT 05/05/2025 12:08 PM CDT us Cristi Salinas MD LAB BLOOD ORDERABLES Fin al Result Performing Organization Address City/[facility]/ZIP Co de Phone Number [facility] [address] [place] [address] * Thyroid Function Ray (05/05/2025 12:08 PM CDT) TSH 1.48 0.30 - 4.20 mcIUnit/mL Blood 05/05/2025 12:0 8 PM CDT 05/05/2025 12:08 PM CDT Cristi Salinas MD LAB BLOOD ORDERABLES Fin al Result Performing Organization Address City/[facility] Co de Phone Number [facility] [address] [facility] [place] [address] * T4, free (05/05/2025 12:08 PM CDT) [facility] Free T4 1.21 0.90 - 1.70 ng/dL Blood 05/05/2025 12:0 8 PM CDT 05/05/2025 12:08 PM CDT Cristi Salinas MD LAB BLOOD ORDERABLES Fin al Result Performing Organization Address City/[facility] Co de Phone Number [facility] [address] [facility] [place] [address] * Vitamin B12 (05/05/2025 12:08 PM CDT) [facility] Vitamin B12 321 230 - 1,250 pg/mL Blood 05/05/2025 12:0 8 PM CDT 05/05/2025 12:08 PM CDT Cristi Salinas MD LAB BLOOD ORDERABLES Fin al Result Performing Organization Address City/[facility] Co de Phone Number [facility] [address] [facility] [place] [address] * Creatinine (05/05/2025 12:08 PM CDT) [facility] Creatinine 0.71 0.60 - 1.10 mg/dL Blood 05/05/2025 12:0 8 PM CDT 05/05/2025 12:08 PM CDT Cristi Salinas MD LAB BLOOD ORDERABLES Fin al Result Performing Organization Address [facility] Co de Phone Number [facility] [address] [facility] [employer] [place], [place] [id number] * Vitamin B1 (05/05/2025 12:00 PM CDT) Thiamine (Vit B1) [facility] ref Lab Comment: Thiamin (Vitamin B1), WB was cancelled on 05/09/2025 at 19:01; Specimen was clotted. Test Performed by: [facility] [address] Customer Counter Representative: Denis Hawkins Ph.D.; CLIA# [id number] Blood 05/05/2025 12:0 0 PM CDT 05/05/2025 5:27 PM CDT Cristi Salinas MD LAB BLOOD ORDERABLES Fin al Result Performing Organization Address [facility] Co de Phone Number [facility] [address] [facility] [place] [address] [facility] * Vitamin B6 (05/05/2025 12:00 PM CDT) Pathologist [facility] Pyridoxal phosphate (Vit B6) 25 5 - 50 mcg/L [facility] ref [facility] Comment: ADDITIONAL INFORMATION This test was developed and its performance characteristics determined by [facility] in a manner consistent with CLIA requirements. This test has not been cleared or approved by the U.S. Food and Drug Administration. Test Performed by: [facility] [place] [id number] Customer Counter Representative: Denis Hawkins Ph.D.; CLIA# [id number] Blood 05/05/2025 12:0 0 PM CDT 05/05/2025 5:27 PM CDT Cristi Salinas MD LAB BLOOD ORDERABLES Fin al Result [facility] [address] [place] [address] [facility] * Screening Mammogram Bilateral [place] (12/24/2021 2:23 PM CDT) Anatomical Region Laterality Modality Breast Bilateral Mammography Narrative 12/25/2021 10:39 AM CDT Mammogram Technique: Bilateral Digital Breast Tomosynthesis, Bilateral C-view 2D Screening mammogram. Views obtained: bilateral craniocaudal and bilateral mediolateral oblique. Computer Aided Detection was performed. Mammogram Findings: The present examination has been compared to prior imaging studies performed at [facility] on 09/07/2018 and 12/01/2020, and at [facility] on 11/01/2019. There are scattered areas [...] to prior imaging studies performed at [facility] on 09/07/2018 and 12/01/2020, and at [facility] on 11/01/2019. There are scattered areas of fibroglandular density. There is no suspicious abnormality in either breast. Impression: There is no mammographic evidence of malignancy. Annual screening mammography is recommended. OVERALL FINAL ASSESSMENT: BI-RADS CATEGORY 1: Negative. us Self Screening Mammogram IMG MAMMO PROCEDURES Fi nal Result from Last 3 Months or Most Recently Relevant to Health Maintenance Insurance [facility] [employer] Address: [address] [place] [address] [facility] [employer] Address: [place] [address] Advance Directives For more information, please contact: [phone] * Full Code (Latest Code Status on File) Date Activated Date Inactivated Comments 05/28/2019 6:46 PM 05/30/2019 10:06 PM * Full Code Date Activated Date Inactivated Comments 05/05/2019 4:26 PM 05/07/2019 11:22 PM * Full Code Date Activated Date Inactivated Comments 04/19/2019 9:03 AM 04/21/2019 6:40 PM * Full Code Date Activated Date Inactivated Comments 08/21/2018 12:35 PM 08/21/2018 5:10 PM Care Teams Rehab Services Aide Relationship Specialty Start Date End Date Jonathan Amado MD PCP - General 03/18/17 Jim Shelby MD [address] [address] Consulting Physician Gastroenterology 06/16/19
--- OUTSIDE RECORDS SUMMARY | 2025-07-25 15:10 | XMS_ITS | Patient Health Record ---
Author Organization [facility] johana Address [address] [facility] [address] [place] [address] Care Team Providers Care Manager Programming Name Role Phone Aneudy ONEIL, Jonathan Primary Care Provider Cristi Powers [phone] Allergies Allergen (clinical drug ingredient) Drug/Non Drug Allergy documented on EMR Reaction Allergy Type Onset Date Status ciprofloxacin Cipro Unknown Drug Allergy 07/16/2021 Ac tive Ciprofloxacin Unknown Drug Allergy 07/16/2021 Ac tive Results Component Value Reference Range Notes eGFR Reviewed date:01/18/2025 06:16:28 PM Interpretation: Performing Lab:[facility] , [address] [facility]. [facility] [address] Notes/Report: eGFR >90 >=60 mL/min/1.73 m2 Interpretive [...] Automated Reviewed date:01/18/2025 06:15:17 PM Interpretation: Performing Lab:[facility] , [facility] [facility]. [place] [address] Notes/Report: Neut Abs 2.29 1.50-6.50 K/cumm ImmGran Abs 0.01 0.00-0.10 K/cumm Lymphocyte Abs 1.55 0.80-3.30 K/cumm [place] Abs 0.33 0.20-0.80 K/cumm Eos Abs 0.15 [...] Interpretive Data was last revised on 2018. [place] Pct 7.6 Interpretive Data Percent cell count [...] Rate Reviewed date:01/19/2025 10:41:39 AM Interpretation: Performing Lab:[facility] , [facility]. [place] [address] Notes/Report: ESR 6 1-30 mm/hr Rheumatoid Factor Reviewed date:01/18/2025 06:14:25 PM Interpretation: Performing Lab:[facility] , [address] [place] [address]. [place] [address] Notes/Report: RF, Popeye <10 <=15 IUnits/mL QTB Gold Reviewed date:01/21/2025 06:46:22 AM Interpretation: Performing Lab:[facility] , [address] [place] [address]. [place] [address] Notes/Report: QuantiFERON TB Gold Negative Negative No [...] Mitogen-Nil 9.98 NIL 0.02 Test Performed by: [place] [address] Radio Time Buyer: Denis Hawkins Ph.D.; CLIA# [id number] Hep Func Panel Reviewed date:01/18/2025 06:14:30 PM Interpretation: Performing Lab:[facility] , [address] [place] [address]. [place] [address] Notes/Report: Total Bilirubin 0.5 0.1-1.2 mg/dL Bilirubin, Direct <0.2 0.1-0.3 mg/dL Plasma Total Protein 6.7 6.5-8.5 g/dL Albumin 4.6 3.5-5.0 g/dL Alkaline Phosphatase 86 40-130 Units/L ALT 24 7-45 Units/L AST 23 10-45 Units/L Creatinine Reviewed date:01/18/2025 06:15:30 PM Interpretation: Performing Lab:[facility] , [address] [place] [address]. [place] [address] Notes/Report: Creatinine 0.72 0.60-1.10 mg/dL CBC w auto diff Reviewed date:01/18/2025 06:14:35 PM Interpretation: Performing Lab:[facility] , [address] [place] [address] Notes/Report: WBC 4.36 3.80-9.90 K/cumm Hgb 14.8 11.9-15.5 g/dL Hct 44.5 35.6-45.5 % Platelet Ct 197 150-400 K/cumm MPV 11.7 9.1-12.3 fL RBC 4.85 3.90-5.20 M/cumm MCV 91.8 81.3-96.4 fL MCH 30.5 27.1-33.3 pg MCHC 33.3 32.3-35.7 g/dL RDW CV 12.5 11.1-14.9 % RDW SD 41.9 35.7-48.1 fL NRBC Abs Auto 0.00 0.00-0.01 K/cumm C Reactive Protein Reviewed date:01/18/2025 06:14:39 PM Interpretation: Performing Lab:[facility] , [address] [place] [address]. [facility] [address] Notes/Report: C-Reactive Protein <3.0 <=10.0 mg/L Anti-CCP (Cyclic Citrullinat ed Peptide Ab) Reviewed date:01/19/2025 01:00:16 PM Interpretation: Performing Lab:[facility] , [address] [place] [address]. [facility] [address] Notes/Report: CCP Ab <0.5 <=2.9 units/mL Interpretive data Negative: <3 units/mL Positive: > or equal to 3 units/mL Current interpretive data was last revised on 2017. eGFR Reviewed date:05/05/2025 02:26:15 PM Interpretation: Performing Lab:[facility] , [address] [place] [address] Notes/Report: eGFR >90 >=60 mL/min/1.73 m2 Interpretive [...] Current interpretive data was last reviewed 2021. T4 Free Reviewed date:05/05/2025 02:26:15 PM Interpretation: Performing Lab:[facility] , [address] [place] [address]. [facility] [address] Notes/Report: Free T4 (Free Thyroxine) 1.21 0.90-1.70 ng/dL Vitamin B6 Reviewed date:05/09/2025 04:10:35 PM Interpretation: Performing Lab:[facility] , [address] [place] [address]. [facility] [address] Notes/Report: Vitamin B6 25 5-50 mcg/L ADDITIONAL INFORMATION - This test was developed and its performance characteristics determined by [facility] in a manner consistent with CLIA requirements. This test has not been cleared or approved by the U.S. Food and Drug Administration. Test Performed by: [facility] [address] [address] Radio Time Buyer: Denis Hawkins Ph.D.; CLIA# [id number] Vitamin B12 Reviewed date:05/05/2025 02:26:15 PM Interpretation: Performing Lab:[facility] , [address] [place] [address]. [facility] [address] Notes/Report: Vitamin B12 336 334-9484 pg/mL TSH Reflex FT4 Reviewed date:05/05/2025 02:26:15 PM Interpretation: Performing Lab:[facility] , [address] [place] [address]. [facility] [address] Notes/Report: TSH (Starr) 1.48 0.30-4.20 mcIUnit/mL Creatinine Reviewed date:05/05/2025 02:26:15 PM Interpretation: Performing Lab:[facility] , [address] [place] [address]. [facility] [address] Notes/Report: Creatinine 0.71 0.60-1.10 mg/dL Vitamin B1, Whole Blood Reviewed date:05/10/2025 05:33:11 AM Interpretation: Performing Lab:[facility] , [address] [place] [address]. [facility] [address] Notes/Report: Vitamin B1 TNP Thiamin (Vitamin B1), WB was cancelled on 05/09/2025 at 19:01; Specimen was clotted. Test Performed by: [facility] [address] [place], [place] [id number] Radio Time Buyer: Denis Hawkins Ph.D.; CLIA# [id number] Reason For Referral No Information Medications Medication SIG (Take, Route, Frequency, Duration) Notes Start Date End Date Status ZyrTEC Allergy 10 MG take 1 tablet (10 m g) by oral route once daily Oral 1 Active Vitamin D2 50 MCG (2000 UT) 1 tablet Orally Once a day; Duration: 30 days Active Gabapentin 100 MG 1 capsule Orally twi ce a day; Duration: 30 days 05/05/2025 Active Immunizations Vaccine Route Administration Date Status [...] Problem Long-term current use of drug therapy (238441263) [facility] [place] [facility] drug therapy (Z79.899) Active confirmed Problem Vitamin D deficiency (31961837) Vitamin D deficiency (E55.9) Active confirmed Problem Neck pain (42357725) Neck pain (M54.2) Active confirmed Problem Inflammatory polyarthropathy (476452530) Inflammatory polyarthropathy (M06.4) 08/06/20 21 Active confirmed Problem Joint pain (59067755) Pain in unspecified joint (M25.50) Active confirmed Problem Anesthesia of skin (626701480) Anesthesia of skin (R20.0) Active confirmed Vital Signs Heart Rate 71 /min 05/05/2025 Temperature 98.4 degrees Fahrenheit 05/05/2025 Height-cm 160.02 cm 05/05/2025 Oximetry 97 % 05/05/2025 Blood pressure diastolic 70 mm Hg 05/05/2025 Weight-kg 68.86 kg 05/05/2025 Height 63 in 05/05/2025 Blood pressure systolic 102 mm Hg 05/05/2025 Weight 151.8 lbs 05/05/2025 BMI 26.89 kg/m2 05/05/2025 Encounters Encounter Location Date Provider Diagnosis [facility] [address] [place] [id number]/18/2025 Cristi Foss Inflammatory polyarthropathy M06.4 ; Pain in unspecified joint M25.50 ; Anesthesia of skin R20.0 ; [facility] [place] [facility] drug therapy Z79.899 and Neck pain M54.2 [place] [address] [address] 02/02/2025 Cristi Foss Inflammatory polyarthropathy M06.4 ; Other [place] [facility] drug therapy Z79.899 ; Neck pain M54.2 and Vitamin D deficiency E55.9 [facility] [address] [address] 05/05/2025 Cristi Foss Inflammatory polyarthropathy M06.4 ; Other intermediate project manager (current) drug therapy Z79.899 ; Neck pain M54.2 ; Vitamin D deficiency E55.9 ; Neuropathic pain M79.2 ; Chronic constipation K59.09 and Ear ache H92.09 [facility] [address] [address] 06/16/2025 [facility] [address] [address] 02/04/2025 [facility] [address] [address] 05/13/2025 Cristi Foss Assessments Encounter Date Diagnosis (ICD Code) Assessment Notes Treatment Notes Treatment Clinical Notes Section Notes 01/18/2025 Inflammatory polyarthropathy (ICD-10 - M06.4) 01/18/2025 Pain in unspecified joint (ICD-10 - M25.50) 05/05/2025 Inflammatory polyarthropathy (ICD-10 - M06.4) 05/05/2025 [facility] [place] [facility] drug therapy (ICD-10 - Z79.899) 02/02/2025 Inflammatory polyarthropathy (ICD-10 - M06.4) 02/02/2025 Other intermediate project manager (current) drug therapy (ICD-10 - Z79.899) 05/05/2025 Neck pain (ICD-10 - M54.2) 02/02/2025 Neck pain (ICD-10 - M54.2) 01/18/2025 Anesthesia of skin (ICD-10 - R20.0) 01/18/2025 Other intermediate project manager (current) drug therapy (ICD-10 - Z79.899) 05/05/2025 Vitamin D deficiency (ICD-10 - E55.9) 02/02/2025 Vitamin D deficiency (ICD-10 - E55.9) 05/05/2025 Neuropathic pain (ICD-10 - M79.2) 01/18/2025 Neck pain (ICD-10 - M54.2) 05/05/2025 Chronic constipation (ICD-10 - K59.09) 05/05/2025 Ear ache (ICD-10 - H92.09) Exam nl. 02/02/2025 Other Labs reviewed. 06/16/2025 Other Plan Of Treatment Pending Test Test Name Order Date X ray : Hand, left 03/12/2024 X ray : Hand, right 03/12/2024 X ray : Spines, cervical 4 views 025 Creatinine, Serum 03/12/2024 CBC With Differential/Platelet CBC With Differential/Platelet Rheumatoid Arthritis Factor 03/12/2024 Vitamin B1 (Thiamine), Blood 05/05/2025 CCP IgG Antibodies 03/12/2024 FABIAN Comprehensive Panel 03/12/2024 Hepatic Function Panel (7) 03/12/2024 Hepatic Function Panel (7) 04/09/2024 ESR 03/12/2024 Creatinine 04/09/2024 Insurance Providers Payer Name Payer Address Payer Phone Subscriber Number Group Number Insured Name Patient Relationship to Insured Coverage Start Date Coverage End Date [facility] [address] [place] [address] [phone] [id number] Pina Reynaga Self - patient is the insured Medical (General) History Surgical History Surgery Date(Month/Year) D&C; 2021-07-16 Cyst removal; 2021-07-16 Hysterectomy; 2021-07-16 Bladder Surgery; 2021-07-16 Cyst excision; 2021-07-16 Sinus Surgery; 2021-07-16 Hospitalization History Reason Date(Month/Year)
--- OUTSIDE RECORDS SUMMARY | 2025-07-25 15:10 | XMS_ITS | Encounter Summary ---
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
--- OUTSIDE RECORDS SUMMARY | 2025-07-25 15:10 | XMS_ITS | Clinical Summary ---
Author Organization [facility] Address [address] [place] [address] Care Team Providers Care Business Process Coordinator Name Role Phone Unavailable Primary Care [...] Cervical Cancer Screening (CCS) 2001 HPV/Cotest 2001 Cologuard 2016 Colonoscopy 2016 Colorectal Cancer Screening 2016 Immunochemical Fecal Occult Blood 2016 Zoster Immunization (1 of 2) 2021 Pneumococcal Immunization (5 0+ years) (2 of 2 - PCV) 06/29/2021 06/29/2020 Influenza Immunization (#1) 2025 12/0 03/2019, 07/23/2018 SARS-COV-2 Immunization ( - season) 2025 Respiratory Syncytial Virus (RSV) Immunization (Adult) (1 - 1-dose 75+ series) 2046 DTaP/Tdap/Td Immunization Discontinued 2017, 10/29/2017 TdaP Immunization Completed 06/22/2018, 10/29/2017 Pneumococcal Immunization Combined Discontinued 06/29/2020 Human Papillomavirus (HPV) Immunization Aged Out No longer eligible based on patient's age to complete this topic Meningococcal Immunization (ACWY) Aged Out No longer eligible based on patient's age to complete this topic Rotavirus Immunization Aged Out No lo nger eligible based on patient's age to complete this topic
--- OUTSIDE RECORDS SUMMARY | 2025-07-25 15:10 | XMS_ITS | Encounter Summary ---
Author Organization [facility] Address [address] [place] [address] Care Team Providers Care Tile Grader Name Role Phone Jonathan Amado MD Primary Care Provider [phone] Jim Shelby MD Unavailable [phone] Encounter Details Date Type Department Care Team (Latest Contact Info) Description 06/03/2025 Results Follow-Up [facility] Gastroenterology at [address] [place] [address] Oleg Diamond MD [address] [place] [address] Surgical pathology Social History Tobacco Use Types Packs/Day Years [...] on file 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
--- OUTSIDE RECORDS SUMMARY | 2025-07-25 15:10 | XMS_ITS | Patient Health Record ---
Author Organization [facility] Address [address] [place] [address] Care Team Providers Care Barrel Drainer Name Role Phone Wai Vasquez Unavailable [phone] Reason For Referral No Information Medications Medication SIG (Take, Route, Frequency, Duration) Notes Start Date End Date Status EPINEPHrine 0.3 MG/0.3ML Solution Auto-injector Injection 02/05/2024 Activ e Social History Social History Additional Details Category Social Info Options Details Migrated Social History Migrated Social History Tobacco Years: Never smoker 10/02/2023 Plan Of Treatment No Information Insurance Providers Payer Name Payer Address Payer Phone Subscriber Number Group Number Insured Name Patient Relationship to Insured Coverage Start Date Coverage End Date [employer] [employer] [address] [place] [address] [id number] JR Spouse - patient is the spouse of the insured Medical (General) History Surgical History Surgery Date(Month/Year) Removal of gallbladder (77528) Other Hysterectomy (10838)
--- OUTSIDE RECORDS SUMMARY | 2025-07-25 15:10 | XMS_ITS | Encounter Summary ---
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 Gender Identity Not on file Sexual Orientation Not on file documented as of this encounter Plan of Treatment Not on file documented as of this encounter Procedures Procedure Name Priority Date/Time Associated Diagnosis Comments SCAN - LABS 07/16/2021 documented in this encounter Results * SCAN - LABS (07/16/2021) Provider Scanning Final Result documented in this encounter Visit Diagnoses Not on filedocumented in this encounter Care Teams Permastone Applicator Relationship Specialty Start Date End Date Jonathan Amado MD PCP - General 03/18/17 Jim Shelby MD [address] [facility] [address] [place] [address] Consulting Physician Gastroenterology 06/16/19 documented as of this encounter
--- OUTSIDE RECORDS SUMMARY | 2025-07-25 15:11 | XMS_ITS | Clinical Summary ---
Author Organization [facility] Address [address] [place] [address] Care Team Providers Care Open Hearth Door Liner Name Role Phone Unavailable Primary Care Provider [...] 2) 2021 COVID-19 Vaccine (2023-2 5 season) 2025 Influenza Adult (#1) 2025 Meningococcal B Vaccine Aged Out No l onger eligible based on patient's age to complete this topic Meningococcal Vaccine Aged Out No jovanny felipe eligible based on patient's age to complete this topic RSV Immunizations Under 20 Months Aged Out No longer eligible based on patient's age to complete this topic
--- OUTSIDE RECORDS SUMMARY | 2025-07-25 15:11 | XMS_ITS | Patient Health Record ---
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 Role Phone Aneudy ONEIL, Jonathan Primary [...] with a homero l Orally Once a day; Duration: 30 day(s) Active Ondansetron 4 MG 1 tablet on the tong ue and allow to dissolve as needed Orally every 4-6 hours as needed for nausea/vomiting 02/24/2019 Active Pantoprazole Sodium 40 MG 1 tablet Orall y Once a day; Duration: 30 day(s) Active ZyrTEC Allergy 10 MG 1 tablet Orally Onc e a day; Duration: 30 day(s) Active Macrobid 100 MG 1 [...] Notes Problem 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 Problem Epigastric pain (46721183) Epigastric pain (R10.13) Active confirmed Problem Lower abdominal pain (22310149) Lower abdominal pain, unspecified (R10.30) Active confirmed Problem Generalized abdominal pain (965054964) Generalized abdominal pain (R10.84) Active confirmed Problem Flatulence, eructation and gas pain (487922852) Abdominal distension (gaseous) (R14.0) Active confirmed Problem Diarrhea (97101361) Diarrhea, unspecified (R19.7) Active confirmed Plan Of [...] Insured Coverage Start Date Coverage End Date [facility] [address] [place], [place] [id number] Pina Reynaga Self - patient is the insured [facility] [address] [place], [place] [id number] Reynaga jr Spouse - patient [...] January 23, 2006, with n 01/21/2006 10/16/17 [facility] 2 cm slidi ng hiatal hernia, minimal antral erythema, normal duodenum. Path- gastric and duodenal bx were negative Sinus surgery for fungal infection in 20 12 Right oophorectomy 2010 Removal o right ovarian cyst 2007 Adhesiolysis 2007 Lap cholecystectomy 2003 Partial hysterectomy SInus surgery x 3 Bladder suspension Tonsillectomy Colonoscopy Ali[facility]ti 08/2018 Normal. TI and random colon bx neg. EGD 08/2018 [facility] Small h iatal hernia, o/w normal. Path- BETSY neg, duodenal bx neg.
--- NOTE | 2025-07-25 16:58 | ED_ITS ---
HPI - General Adult General Chief complaint: Extremity Problem,Nontraumatic <JERMAINE Dominguez Last Filed: 07/25/25 17:10> Stated complaint: altered mental status, swollen foot <Haydee Downey PA-C - Last Filed: 07/25/25 17:10> Time Seen by Provider: 07/25/25 16:58 <JERMAINE Dominguez Last Filed: 07/25/25 17:10> Focused HPI: Patient is a 55 y/o female, with PMH of early Alzheimer's with expressive aphasia, who presents to the ED with c/o AMS. Patient's at bedside assisted in providing information. Reports over the past few weeks, patient has been sitting hunched over in her chair consistently, decreased mobility, not moving around as much. States she has been increasingly altered, agitated, distracted, hallucinating over the past few days. He is concerned about a UTI. Hx of frequent UTIs. Also reports swelling to kelly feet, bruising to R dorsal foot, unsure of injury. does note patient is occasionally home alone. GENERAL: Chronically ill appearing, mildly unkempt, and in no acute distress. HEAD: Normocephalic, atraumatic. CHEST: Clear to auscultation. ?No respiratory distress. HEART: Regular rate and rhythm.? NEURO: ?Altered, hunched over in wheelchair, crying, unable/unwilling to respond, speech garbled, only speaking few words at a time. Patient screened in triage and initial orders placed.? ?Additional care and disposition to be based upon?diagnostic testing and treatment. <Haydee Downey PA-C - Last Filed: 07/25/25 17:10> Source: patient and family <JERMAINE Dominguez Last Filed: 07/25/25 17:10> Mode of arrival: wheelchair <JERMAINE Dominguez Last Filed: 07/25/25 17:10> Limitations: altered mental status and dementia <JERMAINE Dominguez Last Filed: 07/25/25 17:10> History of Present Illness HPI narrative: Agree with the above with the following additions/corrections: notes his has been altered. Concerned for UTI. Has early onset Alzheimers and will be seeing [facility] Dr Galloway on Friday given this progression as well. On mirtazepine and brexpiprazole (Rixulti) though tapering off. Had noted right lower extremity swelling in her foot first. Thought possibly due to trauma, that she could have hit it on something or fallen. Not on anticoagulation. Noticed yesterday that her right pinky toe seemed bruised/swollen but then it seemed to progress. Now notices swelling in both lower extremities upon closer inspection. Has appointment to see PCP Friday. goes to work but tries to watch her when he can on the cameras installed at home. Hadn't witnessed any trauma but notes it is possible. <Emily Ames MD - Last Filed: 07/29/25 04:48> Related Data Home medications: Home Medications ?Medication ?Instructions ?Recorded ?Confirmed ?Last Taken ?Type brexpiprazole 2 mg tablet (Rexulti) mg PO 07/28/25 Un known History mirtazapine 7.5 mg tablet mg PO 07/28/25 Unknown Hist ory <Haydee Downey PA-C - Last Filed: 07/25/25 17:10> Allergies/adverse reactions: Allergies Allergy/AdvReac Type Severity Reaction Status Date / Time ibandronate sodium Allergy Severe esophagitis Verified 07/28/25 15:14 prochlorperazine Allergy Severe Anxiety Verified 07/28/25 15:14 doxycycline Allergy Intermediate mus Verified 07/28/25 15:14 ciprofloxacin Allergy Mild MUSCLE Verified 07/28/25 15:14 ACHES iodine Allergy Mild Unknown Verified 07/28/25 15:14 morphine Allergy Mild N/V Verified 07/28/25 15:14 Quinolones Allergy Mild Unknown Verified 07/28/25 15:14 tetracycline Allergy Mild MUSCLE ACHS Verified 07/28/25 15:14 promethazine Allergy Unknown Unknown Verified 07/28/25 15:14 sulfamethoxazole Allergy Unknown Unknown Verified 07/28/25 15:14 trimethoprim Allergy Unknown Unknown Verified 07/28/25 15:14 Contrast Media Allergy Severe IVP DYE Uncoded 07/28/25 15:14 CAUSES RESPIRATORY DISTRESS <Haydee Downey PA-C - Last Filed: 07/25/25 17:10> [facility] Past Medical History Medical History: Medical History Early onset Alzheimer dementia Acute sinusitis Thyroid nodule Encounter for immunization Erosive (osteo)arthritis Osteoporosis Sphincter of Oddi dysfunction Osteoporosis Overweight (BMI 25.0-29.9) Osteopenia Hiatal hernia Acute gastritis without bleeding Duodenal ulcer, unspecified as acute or chronic, without hemorrhage or perforation Esophageal reflux Fibromyalgia Migraine with aura and with status migrainosus, not intractable Mild intermittent asthma, uncomplicated Monoclonal gammopathy of unknown significance (MGUS) 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 Raynaud's syndrome Selective deficiency of immunoglobulin a [iga] Unspecified vitamin D deficiency <Haydee Downey PA-C - Last Filed: 07/25/25 17:10> Surgical History Surgical History: Surgical History Hx of tonsillectomy H/O sinus surgery History of bladder surgery History of hysterectomy Hx of cholecystectomy H/O rectal sphincterotomy History of ERCP x2 <Haydee Downey PA-C - Last Filed: 07/25/25 17:10> Family History Family History: Family History Mother Family history of osteoporosis Hypertension Family history of arthritis Depression Family history of psoriasis Grandparent Family history of osteoporosis Hypertension Family history of malignant neoplasm Family history of chronic obstructive pulmonary disease Family history of Alzheimer's disease Family history of glaucoma Cerebrovascular accident Family history of malignant neoplasm of breast Family history of lymphoma Family history of malignant neoplasm of ovary Father Hypertension Asthma Other Family history of migraine headaches <Haydee Downey PA-C - Last Filed: 07/25/25 17:10> Social History Social History: Social History Social History: Smoking status: Never smoker Alcohol intake: never Substance use: never Lack of Transportation: No Lack of Food: Never True Current Housing: I Have Housing Concerned About Future Housing: No Difficulty Paying Gas/Electric Bills: No Difficulty Paying for Meds: No Currently Unemployed: No Living arrangements: with family Additional living arrangements comments: Gender identity (if verbalized by the patient): Female <Haydee Downey PA-C - Last Filed: 07/25/25 17:10> Exam 2 Narrative: GENERAL: well-nourished, HEAD: Normocephalic, atraumatic. EYES: Non injected, non icteric ENT: Nares clear, no rhinorrhea or epistaxis. NECK: Supple. No meningismus. CHEST: Non labored. No respiratory distress. HEART: Regular rate and rhythm. ABDOMEN: Soft, nondistended. EXTREMITIES: Right pedal edema with erythema throughout digits 4 and 5 ad extending proximately though at this time confined to the base of the foot. Left leg swelling as well in the calf. SKIN: Warm, dry; rash as above. NEURO: No focal deficits; alert but not oriented. Intermittently Following commands. Incomprehensible speech at times. <Emily Ames MD - Last Filed: 07/29/25 04:48> Course Vital Signs Vital signs: Vital Signs Temperature 98.5 F 07/25/25 15:06 Pulse Rate 71 07/25/25 15:06 Respiratory Rate 16 07/25/25 15:06 Blood Pressure 147/97 H 07/25/25 15:06 Pulse Oximetry 100 07/25/25 15:06 Oxygen Delivery Room Air 07/25/25 15:06 Temperature 98.5 F 07/25/25 15:06 Pulse Rate 90 07/25/25 19:47 Respiratory Rate 15 07/25/25 19:47 Blood Pressure 135/85 07/25/25 19:47 Pulse Oximetry 98 07/25/25 19:47 Oxygen Delivery Room Air 07/25/25 18:11 <Haydee Downey PA-C - Last Filed: 07/25/25 17:10> Vital Signs Temperature 98.5 F 07/25/25 15:06 Pulse Rate 71 07/25/25 15:06 Respiratory Rate 16 07/25/25 15:06 Blood Pressure 147/97 H 07/25/25 15:06 Pulse Oximetry 100 07/25/25 15:06 Oxygen Delivery Room Air 07/25/25 15:06 Temperature 98.5 F 07/25/25 15:06 Pulse Rate 90 07/25/25 19:47 Respiratory Rate 15 07/25/25 19:47 Blood Pressure 135/85 07/25/25 19:47 Pulse Oximetry 98 07/25/25 19:47 Oxygen Delivery Room Air 07/25/25 18:11 <Emily Ames MD - Last Filed: 07/29/25 04:48> Medical Decision Making MDM Narrative Medical decision making narrative: MSE by ROB in triage. <Haydee Downey PA-C - Last Filed: 07/25/25 17:10> MSE by ROB in triage. Patient presents with concern to swelling and what the thought was bruising at the right foot. Now notes some swelling in left leg as well. History of early onset Alzheimer. concerned for UTI. In the emergency department she is afebrile with vital signs notable for hypertension. Patient's had requested that her brain CT be forwarded to [facility] if possible as she has an appointment soon with [facility]. I did have the estimate clerk ask radiology to push this image as a result. CBC with elevated monocytes on the differential however otherwise without marked abnormalities including no leukocytosis, anemia, thrombocytopenia. She has 1+ bacteriuria but without other markers of infection. Will reflex to culture and defer antibiotics at this time given patient has other reasons for her mental status and in general has several antibiotic allergies. Lactic acid normal. US shows DVT , though on the left. This is a distal DVT and, because she is symptomatic in that she has some edema, will anticoagulate. INR normal. Will give first dose Xarelto in the ED and prescribe a course. However, her right lower extremity erythema, warmth, and swelling appear consistent with cellulitis. She lists an allergy to sulfamethoxazole and trimethoprim. Will give cephalexin and prescribe rest of course. Normal renal function. She has AST and ALT elevation, intermittent transaminitis previously seen through worse today. Lipase and acetaminophen level ordered; these are both normal. CRP normal. Mild hyponatreamia. Cellulitis outlined with pen/skin marker. Patient has upcoming appointment primary care physician/provider on and with memory center at [facility] on Friday. Cr clearance is acceptable, no need for Xarelto renal dosing. Coupon for prescription assistance also provided with DC instructions. < Emily Ames MD - Last Filed: 07/29/25 04:48> Vital Signs Vital Signs: Vital Signs Temperature 98.5 F 07/25/25 15:06 Pulse Rate 71 07/25/25 15:06 Respiratory Rate 16 07/25/25 15:06 Blood Pressure 147/97 H 07/25/25 15:06 Pulse Oximetry 100 07/25/25 15:06 Oxygen Delivery Room Air 07/25/25 15:06 Temperature 98.5 F 07/25/25 15:06 Pulse Rate 90 07/25/25 19:47 Respiratory Rate 15 07/25/25 19:47 Blood Pressure 135/85 07/25/25 19:47 Pulse Oximetry 98 07/25/25 19:47 Oxygen Delivery Room Air 07/25/25 18:11 <Haydee Downey PA-C - Last Filed: 07/25/25 17:10> Vital Signs Temperature 98.5 F 07/25/25 15:06 Pulse Rate 71 07/25/25 15:06 Respiratory Rate 16 07/25/25 15:06 Blood Pressure 147/97 H 07/25/25 15:06 Pulse Oximetry 100 07/25/25 15:06 Oxygen Delivery Room Air 07/25/25 15:06 Temperature 98.5 F 07/25/25 15:06 Pulse Rate 90 07/25/25 19:47 Respiratory Rate 15 07/25/25 19:47 Blood Pressure 135/85 07/25/25 19:47 Pulse Oximetry 98 07/25/25 19:47 Oxygen Delivery Room Air 07/25/25 18:11 <Emily Ames MD - Last Filed: 07/29/25 04:48> Lab Data Lab results reviewed: Yes I reviewed the patient's lab results. <Emily Ames MD - Last Filed: 07/29/25 04:48> Result diagrams: 07/25/25 18:11 07/25/25 18:11 <Haydee Downey PA-C - Last Filed: 07/25/25 17:10> Labs: Lab Results 07/25/25 Range/Units 18:11 WBC 6.0 (4.5-10.0) K/mm3 RBC 4.64 (4.2-5.4) M/mm3 Hgb 14.1 (12.0-15.0) g/dL Hct 41.3 (37.0-47.0) % MCV 89.0 (80-100) fl MCH 30.4 (26-34) pg MCHC 34.1 (32-36) g/dl RDW 12.9 (11.5-14.5) % Plt Count 257 (150-375) k/mm3 MPV 10.2 (7.4-10.4) fl Immature Gran % (Auto) 0.3 (0-0.5) % Neut % (Auto) 57.7 (45.5-73.1) % Lymph % (Auto) 29.4 (18.3-44.2) % [place] % (Auto) 10.6 H (2.6-8.5) % Eos % (Auto) 1.7 (0-4.4) % Baso % (Auto) 0.3 (0.2-1.2) % Lymph # (Auto) 1.75 (0.9-3.2) K/mm3 [place] # (Auto) 0.6 (0.1-0.6) K/mm3 Eos # (Auto) 0.1 (0-0.3) K/mm3 Baso # (Auto) 0.0 (0.0-0.1) K/mm3 Abs Immat Gran (auto) 0.02 (0.00-0.031) K/mm3 Absolute Neuts (auto) 3.4 (1.3-6.7) K/mm3 Absolute Nucleated RBC 0.000 (0.0-0.012) K/mm3 Nucleated RBC % 0.0 (0.0-0.2) % ESR 16 (0-20) mm/hr PT 13.6 (11.1-14.7) Seconds INR 1.0 APTT 27.6 (22.3-36.8) Seconds Sodium 133 L (137-145) mmol/L Potassium 4.0 (3.4-5.0) mmol/L Chloride 100 (98-107) mmol/L Carbon Dioxide 28 (22-30) mmol/L Anion Gap 5 (4-12) mmol/L BUN 11 (7-17) mg/dL Creatinine 0.66 L (0.7-1.0) mg/dL Estim Creat Clear Calc 69 ml/min Estimated GFR > 60 (59 - ) Glucose 93 (65-110) mg/dL Lactic Acid 0.8 (0.7-2.0) mmol/L Calcium 9.1 (8.4-10.2) mg/dL Magnesium 2.0 (1.6-2.3) mg/dL Total Bilirubin 1.0 (0.2-1.3) mg/dL AST 55 H (14-36) U/L ALT 66 H (6-35) U/L Alkaline Phosphatase 64 (38-126) U/L C-Reactive Protein < 0.5 (<1.0) mg/dL NT-Pro-B Natriuret Pep 25 (19.9-100) pg/mL Total Protein 6.5 (6.3-8.2) g/dL Albumin 3.7 (3.5-5.1) g/dL Lipase 42 (23-300) U/L Urine Color Dark yellow (Yellow) Urine Appearance Clear (Clear) Urine pH 5.5 (5.0-9.0) Ur Specific Radom 1.034 (1.001-1.035) Urine Protein Trace (Negative) mg/dL Urine Glucose (UA) Negative (Negative) mg/dL Urine Ketones Trace H (Negative) mg/dL Ur Blood (Man) Negative (Negative) Urine Nitrate Negative (Negative) Urine Bilirubin 1+ H (Negative) Urine Urobilinogen 1.0 (<2.0) mg/dL Leukocyte Esterase Rfl Negative (Negative) ANABEL/UL Urine RBC 0-2 (0-2) /hpf Urine WBC 0-5 (0-3) /hpf Ur Squamous Epith Cells None seen (Few) /hpf Urine Bacteria 1+ H /hpf Urine Casts 0-2 Acetaminophen < 10 L (10-30) ug/mL <Haydee Downey PA-C - Last Filed: 07/25/25 17:10> Lab Results 07/25/25 Range/Units 18:11 WBC 6.0 (4.5-10.0) K/mm3 RBC 4.64 (4.2-5.4) M/mm3 Hgb 14.1 (12.0-15.0) g/dL Hct 41.3 (37.0-47.0) % MCV 89.0 (80-100) fl MCH 30.4 (26-34) pg MCHC 34.1 (32-36) g/dl RDW 12.9 (11.5-14.5) % Plt Count 257 (150-375) k/mm3 MPV 10.2 (7.4-10.4) fl Immature Gran % (Auto) 0.3 (0-0.5) % Neut % (Auto) 57.7 (45.5-73.1) % Lymph % (Auto) 29.4 (18.3-44.2) % [place] % (Auto) 10.6 H (2.6-8.5) % Eos % (Auto) 1.7 (0-4.4) % Baso % (Auto) 0.3 (0.2-1.2) % Lymph # (Auto) 1.75 (0.9-3.2) K/mm3 [place] # (Auto) 0.6 (0.1-0.6) K/mm3 Eos # (Auto) 0.1 (0-0.3) K/mm3 Baso # (Auto) 0.0 (0.0-0.1) K/mm3 Abs Immat Gran (auto) 0.02 (0.00-0.031) K/mm3 Absolute Neuts (auto) 3.4 (1.3-6.7) K/mm3 Absolute Nucleated RBC 0.000 (0.0-0.012) K/mm3 Nucleated RBC % 0.0 (0.0-0.2) % ESR 16 (0-20) mm/hr PT 13.6 (11.1-14.7) Seconds INR 1.0 APTT 27.6 (22.3-36.8) Seconds Sodium 133 L (137-145) mmol/L Potassium 4.0 (3.4-5.0) mmol/L Chloride 100 (98-107) mmol/L Carbon Dioxide 28 (22-30) mmol/L Anion Gap 5 (4-12) mmol/L BUN 11 (7-17) mg/dL Creatinine 0.66 L (0.7-1.0) mg/dL Estim Creat Clear Calc 69 ml/min Estimated GFR > 60 (59 - ) Glucose 93 (65-110) mg/dL Lactic Acid 0.8 (0.7-2.0) mmol/L Calcium 9.1 (8.4-10.2) mg/dL Magnesium 2.0 (1.6-2.3) mg/dL Total Bilirubin 1.0 (0.2-1.3) mg/dL AST 55 H (14-36) U/L ALT 66 H (6-35) U/L Alkaline Phosphatase 64 (38-126) U/L C-Reactive Protein < 0.5 (<1.0) mg/dL NT-Pro-B Natriuret Pep 25 (19.9-100) pg/mL Total Protein 6.5 (6.3-8.2) g/dL Albumin 3.7 (3.5-5.1) g/dL Lipase 42 (23-300) U/L Urine Color Dark yellow (Yellow) Urine Appearance Clear (Clear) Urine pH 5.5 (5.0-9.0) Ur Specific Radom 1.034 (1.001-1.035) Urine Protein Trace (Negative) mg/dL Urine Glucose (UA) Negative (Negative) mg/dL Urine Ketones Trace H (Negative) mg/dL Ur Blood (Man) Negative (Negative) Urine Nitrate Negative (Negative) Urine Bilirubin 1+ H (Negative) Urine Urobilinogen 1.0 (<2.0) mg/dL Leukocyte Esterase Rfl Negative (Negative) ANABEL/UL Urine RBC 0-2 (0-2) /hpf Urine WBC 0-5 (0-3) /hpf Ur Squamous Epith Cells None seen (Few) /hpf Urine Bacteria 1+ H /hpf Urine Casts 0-2 Acetaminophen < 10 L (10-30) ug/mL <Emily Ames MD - Last Filed: 07/29/25 04:48> Imaging Data Radiologist's impression: IMPRESSION: Radiographic examination of the right foot demonstrates no acute fracture or dislocation IMPRESSION: No acute intracranial hemorrhage or extra axial fluid collections. Opacifications of the left frontal sinus. All CT scans at this facility are performed using low dose modulation techniques as appropriate to perform exam including the following: automated exposure control; use of iterative reconstruction technique; adjustment of the mA and/or kV according to patient size (this includes techniques or standardized protocols for targeted exams where dose is matched to indication/reason for exam). Impression: 1. Left posterior tibial DVT <Emily Ames MD - Last Filed: 07/29/25 04:48> ECG Data EKG #1: Attestation: I personally reviewed and interpreted this ECG as follows: < Emily Ames MD - Last Filed: 07/29/25 04:48> ECG completion date: 07/25/25 <Emily Ames MD - Last Filed: 07/29/25 04:48> ECG completion time: 18:23 <Emily Ames MD - Last Filed: 07/29/25 04:48> Interpretation: Significant baseline artifact limits full interpretation. For this reason is is labeled as a supraventricular rhythm however upon close inspection appears that there might be P-waves that preceded QRS complexes in a some of the leads. Good R-wave progression across the precordial leads. No marked T-wave elevations. Normal axis. Rate 84. QRS 74. QT/QTC 381/452. <Emily Ames MD - Last Filed: 07/29/25 04:48> Discharge Plan Discharge Clinical Impression: Deep vein thrombosis (DVT) of left posterior tibial vein, Edema of both lower extremities, Cellulitis of foot, right, Transaminitis, Hyponatremia <Haydee Downey PA-C - Last Filed: 07/25/25 17:10> Patient Disposition: Home <Haydee Downey PA-C - Last Filed: 07/25/25 17:10> Condition: Stable <Haydee Downey PA-C - Last Filed: 07/25/25 17:10> Instructions: Antibiotic Form, Cellulitis (ED), Hyponatremia (ED), Deep Vein Thrombosis (DC), Leg Edema (ED), Transaminitis (ED) <Haydee Downey PA-C - Last Filed: 07/25/25 17:10> Additional Instructions: CT brain showed: No acute intracranial hemorrhage or extra axial fluid collections. Opacifications of the left frontal sinus. These were pushed by radiology to [facility]. Keep your upcoming appointment with PCP on and with [facility] Care at [facility] on Friday. As we discussed, the right foot appears to have a skin infection known as cellulitis. Patient received 1st dose of antibiotic in the emergency department the rest of the course has been prescribed. Area affected was outlined with a skin pen. She also had a DVT in the left lower leg. First dose Xarelto given in the emergency department the rest of the course has been prescribed. Discussed with PCP the duration of therapy that will be needed beyond the course that is been prescribed from the emergency department. Return to the emergency department any new or worsening symptoms. <Haydee Downey PA-C - Last Filed: 07/25/25 17:10> Patient Language: Haitian <Haydee Downey PA-C - Last Filed: 07/25/25 17:10> Prescriptions: New Xarelto DVT-PE Treat 30d Start 15 mg (42)- 20 mg (9) tablets,dose pack See Rx Instructions .ROUTE .COMPLEX Qty: 51 0RF Rx Instructions: take one-15 mg tablet twice daily for 21 days, then one-20 mg tablet once daily; must take with meal/food cephalexin 500 mg tablet 500 mg PO Q6H 5 Days Qty: 19 0RF Rx Instructions: received first dose in ED 07/25 PM No Action mirtazapine 7.5 mg tablet PO Rexulti 2 mg tablet PO Xarelto 20 mg tablet 20 mg PO DAILY Qty: 30 2RF Rx Instructions: must administer with evening meal <Haydee Downey PA-C - Last Filed: 07/25/25 17:10> Follow-up/Referrals: Jonathan Amado MD [Primary Care Provider, Family Practice] <Haydee Downey PA-C - Last Filed: 07/25/25 17:10> Time of Disposition: 19:27 <Haydee Downey PA-C - Last Filed: 07/25/25 17:10> 19:27 <Emily Ames MD - Last Filed: 07/29/25 04:48>
--- NOTE | 2025-07-25 17:03 | ECG_ITS ---
Test Date: 2025-07-25 18:23:32 Measurements Intervals Fraser Rate: 84 P: 0 CO: 0 QRS: 46 QRSD: 74 T: 7 QT: 381 QTc: 452 Interpretive Statements SINUS OR ECTOPIC ATRIAL RHYTHM RHYTHM BORDERLINE ST-T WAVE ABNORMALITY- ANT/INF LEADS BASELINE ARTIFACT- I, II, III, AVR, AVL, AVF, V1-V6 BORDERLINE ECG No previous ECG available for comparison Electronically Signed On 07-25-2025 19:07:26 CDT by Hernesto Ellis D.O.
[2025-07-25 18:11] VITALS: BP 99/68; PULSE 85; RESP 18; O2SAT 97
[2025-07-25 18:17] VITALS: BP 108/79; PULSE 89; RESP 16; O2SAT 100
--- OUTSIDE RECORDS SUMMARY | 2025-07-25 18:18 | XMS_ITS | Clinical Summary ---
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
--- OUTSIDE RECORDS SUMMARY | 2025-07-25 18:18 | XMS_ITS | Clinical Summary ---
Author Organization [facility] Address [address] [place] [address] Care Team Providers Care Stereo Plotter Operator Name Role Phone Jonathan Amado MD Unavailable [phone] Jonathan Amado MD Primary Care Provider [phone] Source Comments [facility],non-owned Affiliates and Associated Physician Practices is amultiple site organization consisting of ambulatory clinics and hospital sitesin [place], [place], [place] and [place]. This disclosure is being madepursuant to the Care Everywhere program and may not contain all information available regarding this patient. Last updated 18.[facility] Allergies Active Allergy Reactions Criticality Noted Date [...] fluticasone propionate (FLONASE) 50 MCG/ACT nasal spray [place] 2 (two) sprays into each nostril once daily Active ergocalciferol (DRISDOL) 1.25 MG (58466 UT) capsule Take 1 (one) capsule by [...] Active azelastine (Astepro) 205.5 MCG/SPRAY nasal spray [place] 2 (two) sprays into each nostril 2 times daily 90 mL 4 3 Active Additional Information Patient not taking.Reason: Patient adjusted, Reported on 03/08/2025 ibandronate (Boniva) 150 MG tablet Take 1 (one) tablet by mouth every 30 days 4 Active FLUoxetine (PROzac) 20 MG capsule Take 1 (one) capsule by mouth once daily 4 Active allergy injection Per [facility] Otolaryngology protocol Active fexofenadine (Cassie) 180 MG tablet Take 1 (one) tablet by mouth once daily Active Vitamin D, Ergocalciferol , 09470 units CAPS Take 1 (one) capsule by [...] 2300-700mg (Neilmed Sinus Rinse) 2300-700 MG Kit [place] 1 (one) kit into each nostril once [...] Support [facility] [address] [place] [phone] Allergic rhinitis due to pollen, unspecified seasonality 07/14/2025 Travel 06/28/2025 3:40 PM CDT Clinical [facility] [address] [place] [phone] Allergic rhinitis due to pollen, unspecified seasonality 06/28/2025 Travel 06/21/2025 3:40 PM CDT Clinical Support [facility] [address] [place] [phone] Fatigue, unspecified type 06/21/2025 Travel 06/14/2025 3:40 PM CDT Clinical Support [facility] [address] [place] [phone] Allergic rhinitis due to pollen, unspecified seasonality 06/14/2025 Travel 06/07/2025 3:40 PM CDT Clinical Support [facility] [address] [place] [phone] Allergic rhinitis due to pollen, unspecified seasonality 06/07/2025 Travel 05/24/2025 3:40 PM CDT Clinical Support [facility] [address] [place] [phone] Allergic rhinitis due to pollen, unspecified seasonality 05/24/2025 Travel 05/17/2025 3:40 PM CDT Clinical Support [facility] [address] [place] [phone] Allergic rhinitis due to pollen, unspecified seasonality 05/17/2025 Travel 05/10/2025 3:40 PM CDT Clinical Support [facility] [address] [place] [phone] Allergic rhinitis due to pollen, unspecified seasonality 05/10/2025 Travel 05/03/2025 3:40 PM CDT Clinical Support 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 Not on file [...] Support [facility] [address] [place] [phone] 08/02/2025 3:20 PM CDT Clinical Support [facility] [address] [place] [phone] 08/09/2025 3:20 PM CDT Clinical Support [facility] [address] [place] [phone] Health Maintenance Due Date Last Done Comments [...] <0.1 0.0 - 0.9 s/co ratio [facility] ([facility]) Comment: Negative: < 0.8 Indeterminate: 0.8 - 0.9 Positive: > 0.9 The CDC recommends that a positive HCV antibody result be followed up with a HCV Nucleic Acid Amplification test (420461). Blood specimen (specimen) BLOOD SPECIMEN / Unknown 02/05/2016 11:21 AM CDT 02/05/2016 4:02 PM CDT Narrative [facility] ([facility]) - 02/13/2016 11:20 AM CDT Performed at: 01 - [facility] [address] [place], [place] [id number] Adoption Services Manager: Darwin Hunter PhD, Phone: [phone] [facility] - CHEMISTRY ORDERABLES Ed ited Result - Final [facility]) [address] [place] [address], [facility] from Last 3 Months or Most Recently Relevant to Health Maintenance Insurance [facility] Care Teams Stereo Plotter Operator Relationship Specialty Start Date End Date Jonathan Amado MD [facility] [place] [phone] PCP - General Family Medicine 09/15/23 Jonathan Amado MD [facility] [place] [phone] 06/24/13
--- OUTSIDE RECORDS SUMMARY | 2025-07-25 18:18 | XMS_ITS | Clinical Summary ---
Author Organization [facility] Address [address] [place] [address] Care Team Providers Care Forklift Supervisor Name Role Phone Jonathan Amado MD Primary Care Provider [phone] Jim Shelby MD Unavailable [phone] Allergies Active Allergy Reactions Criticality Noted Date [...] 06/24/2013 Sulfasalazine Rash Medium 04/24/2012 Body aches [place] Pollen-Short Ragweed Unknown 01/28/2023 ragweed - allergy [...] (04/21/2019): Added automatically from request for surgery [id number] Assessment & Plan (05/12/2025 9:34 AM CDT): [...] Type Department Care Team Description 07/22/20 Telephone [facility] [address] [place] [address] [address] [place] [address] Jen Cifuentes, Maximilian Appointment 07/15/20 11:00 AM CDT Therapy [facility] OP Speech Therapy [address] [place] [address] Ronel Harrison, MANJINDER Primary progressive aphasia (HCC) (Primary Dx); AD (Alzheimer's disease); Word finding difficulty; Aphasia 07/07/20 10:00 AM CDT Therapy [facility] OP Speech Therapy [address] [place] [address] Rnoel Harrison, MANJINDER Primary progressive aphasia (HCC) (Primary Dx); AD (Alzheimer's disease); Word finding difficulty; Aphasia 07/07/20 Plan of Care Documentation [facility] OP Speech Therapy [address] [place] [address] 07/05/20 Telephone [facility] [address] [place] [address] Ramandeep Hayes, RESEARCH STUDY ASSISTANT 07/04/20 [facility] Diagnostic [address] [place] [address] Ramandeep Hayes, RESEARCH STUDY ASSISTANT 07/01/20 9:00 AM CDT Therapy [facility] OP Speech Therapy [address] [place] [address] Ronel Harrison, MANJINDER Primary progressive aphasia (HCC) (Primary Dx); AD (Alzheimer's disease); Word finding difficulty; Aphasia 06/30/20 [facility] Diagnostic [address] [place] [address] Alexis Palma, [facility] 06/29/20 [facility] Diagnostic [address] [place] [address] eJn Cifuentes RMA Patient issue/concern 06/24/20 11:00 AM CDT Therapy [facility] OP Speech Therapy [address] [place] [address] Ronel Harrison, MANJINDER Primary progressive aphasia (HCC) (Primary Dx); AD (Alzheimer's disease); Word finding difficulty; Aphasia 06/24/20 Telephone [facility] [address] [place] [address] [place] [phone] Jen Cifuentes RMA Med Refill 06/17/20 9:00 AM CDT Therapy [facility] OP Speech Therapy [address] [place] [address] Ronel Harrison, MANJINDER Primary progressive aphasia (HCC) (Primary Dx); AD (Alzheimer's disease); Word finding difficulty; Aphasia 06/10/20 9:00 AM CDT Therapy [facility] OP Speech Therapy [address] [place] [address] [address] [place] [address] Ronel Harrison, MANJINDER Primary progressive aphasia (HCC) (Primary Dx); AD (Alzheimer's disease); Word finding difficulty; Aphasia 06/07/20 Telephone [facility] Floor [address] [place] [phone] Jen Cifuentes, RMA 06/06/20 Orders Only [facility] Floor [address] [place] [address] Meg Coleman PA 06/06/20 Telephone [facility] [address] [place] [address] for [place] [phone] Juancho Farris MSW 06/06/20 Telephone [facility] [address] [place] [phone] Jen Cifuentes, RMA Medication Request 06/06/20 Plan of Care Documentation [facility] OP Speech Therapy [address] [place] [address] 06/03/20 Results Follow-Up [facility] Gastroenterology at [place] [address] [facility] [address] [place] [address] Oleg Diamond MD Surgical pathology 06/01/20 12:11 PM CDT Anesthesia Event [facility] GI Lab [address] [place] [address] Yaakov Mota MD Sauerwein, Kimberly K., CRNA 06/01/20 12:00 PM CDT - 06/01/20 12:30 PM CDT Surgery [facility] GI Lab [address] [place] [address] Oleg Diamond MD ESOPHAGOGASTRODUODENOSCOPY BIOPSY 06/01/20 10:27 AM CDT - 06/01/20 1:50 PM CDT Hospital Encounter [facility] GI Lab [address] [place] [address] Oleg Diamond MD Gastroesophageal reflux disease, unspecified whether esophagitis present; Abdominal pain; Rectal bleeding Discharge Disposition: Discharge to home or self care 05/30/20 1:00 PM CDT Therapy [facility] OP Speech Therapy [address] [place] [address] Diane Degroot, CIVIL LABORATORY TECHNICIAN Primary progressive aphasia (HCC) (Primary Dx); AD (Alzheimer's disease); Word finding difficulty; Aphasia 05/19/20 Results Follow-Up [facility] Medicine Obstetrics and Gynecology [address] [facility] 7th Floor [address] [place] [address] Leilani Marshall Rai, NP Urinalysis reflex to microscopic and culture Urine, clean voided, REFLEXIVE URINE CULTURE 05/18/20 4:00 PM CDT Office Visit [facility] Medicine Obstetrics and Gynecology [address] [facility] 1st Floor [address] [place] [address] Leilani Marshall Rai, NP Urgency of urination (Primary Dx); Urinary disorder; Frequency of micturition 05/18/20 9:00 AM CDT Therapy [facility] OP Occup Therapy [address] [place] [address] Randi Rivas, OT Alzheimer's disease; Primary progressive aphasia (HCC); Other amnesia; Aphasia 05/18/20 Plan of Care Documentation [facility] OP Occup Therapy [address] [place] [address] 05/16/20 Telephone [facility] Medicine Obstetrics and Gynecology [address] [facility] 7th Floor [address] [place] [phone] Ai Finnegan RN 05/12/20 8:30 AM CDT Office Visit [facility] Gastroenterology at [place] [address] [facility] [address] [place] [phone] Carole Mckeon, MELODIE Gastroesophageal reflux disease, unspecified whether esophagitis present (Primary Dx); Abdominal pain; Rectal bleeding 05/06/[address] First Floor [address] [place] [address] Jen Cifuentes, RMA Request For Order(s) 05/05/20 10:25 AM CDT Lab [facility] Outpatient Lab [address] [place] [address] 05/03/[address] First Floor [address] [place] [address] Jen Cifuentes RMA from Last 3 Months Immunizations Immunization Administration Dates Next Due Influenza, Quadrivalent, Rec ombinant, Egg Free, Preservative Free, Intramuscular 08/16/2021,09/17/2019 Influenza, Quadrivalent, Spl it, Preservative Free, Intramuscular 07/23/2018 Influenza, Trivalent, Preservative Free, Intramu scular 07/25/2017 Influenza, Unspecified 07/03/2020 Pneumococcal Polysaccharide PPV23 06/29/2020,02/2012 TD Preservative Free 10/17/2011 Tdap 06/22/2018,10/29/2017 Surgical History Surgery Date Site/Laterality Comments RI DILATION & CURETTAGE DX&/THER NONOBSTETRIC BLADDER SURGERY [...] infection 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 Dysphagia Bright red stool Chronic constipation [...] and Family Not on file 12/13/2019 Attends [employer] Services Not on file 12/12 Active Member [...] file 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 Gender Identity Not on file Sexual Orientation [...] 08/21/2018, 10/31/2014 Medical Devices Explanted Type Area Airport Duty Manager Device Identifier Shelf Expiration Date Model / Serial / Lot [employer] 6571 Rojo Flexi-Stent 7fr 3cm Small Pigtail Flexible .035in Stent - [id number] Implanted:Qty: 1 on 04/19/2019 by Jim Shelby MD at [facility] Explanted:Qty: 1 on 04/21/2019 at [facility] Stent Pancreas [employer] 11/12/2023 657 1 / / [id number] Nubimetrics Tracie [id number] [place] Viabil 10mm 8.5fr 6cm 200cm Fully Covered Self Expand Pull - [id number] - [id number] Implanted:Qty: 1 on 04/19/2019 by Jim Shelby MD at [facility] Explanted:Qty: 1 on 04/21/2019 at [facility] Stent Bile Duct Conmed Tracie 12/21/2021 [id number] / [id number] / Procedures Procedure Name Priority Date/Time Associated [...] Biopsy) 06/01/2025 12:52 PM CDT Narrative PATHOLOGY [facility] - 06/02/2025 12:32 PM CDT Department of Pathology [address] [place] [address] Note to Patients: This report may contain [...] explain the details. Final Report Patient Name: PIAN ROCHE : 1970 (Age: 55) Gender: F Address: [address] [place] [address] [employer] #: [id number] Service: Gastro Location: Patient Type: [facility] OUTPATIENT Taken: 06/01/2025 Received: 06/01/2025 Accessioned: [...] a microscopic examination of each tissue sample. [facility] Distribution Clinical History: The patient is a [...] interpretation for this case was performed at [facility], Department of Surgical Pathology, [address] [facility] [place], [place] [id number], [place] [address] CLIA # [id number] us Oleg Diamond MD LAB PATHOLOGY ORDERABLES Final R esult PATHOLOGY [facility] * EGD (06/01/2025 11:52 AM CDT) Anatomical Region Laterality Modality Other Narrative Procedure Note Oleg Diamond MD - 06/01/2025 11:52 AM CDT [facility] GI ENDOSCOPY Patient Name: Pina Roche Procedure Date: 06/01/2025 11:52 AM Date of : 1970 Admit Type: Outpatient Age: 55 Gender: Female Attending MD: Oleg Diamond M.D., Room: [facility] ENDOSCOPY ROOM 03 Note Status: Finalized Procedure: [...] On: 06/01/2025 11:52 AM Recognized by the [employer] for promoting quality in endoscopy us Oleg Diamond MD ENDOSCOPY PROCEDURES Final Resul t * Colonoscopy (06/01/2025 11:52 AM CDT) Anatomical Region Laterality Modality Other Narrative Procedure Note Oleg Diamond MD - 06/01/2025 11:52 AM CDT [facility] GI ENDOSCOPY Patient Name: Pina Roche Procedure Date: 06/01/2025 11:52 AM Date of : 1970 Admit Type: Outpatient Age: 55 Gender: Female Attending MD: Oleg Diamond M.D., Room: [facility] ENDOSCOPY ROOM 03 Note Status: Finalized Procedure: [...] The scope was passed under direct vision.The [id number] colonoscope was introduced through theanus and advanced [...] On: 06/01/2025 11:52 AM Recognized by the [employer] for promoting quality in endoscopy Oleg Diamond MD ENDOSCOPY PROCEDURES Final Resul t * REFLEXIVE URINE CULTURE (05/18/2025 4:44 PM CDT) Urine culture [facility] Comment:NO CULTURE INDICATED 05/18/2025 4:44 PM CDT 05/18/2025 10:13 PM CDT Leilani Marshall NP LAB MICROBIOLOGY - MOOKIE MORENO ORDERABLES Final Result [facility] [address] [place] [address] * Urinalysis reflex to microscopic and culture [...] AL ORDERABLES Final Result Performing Organization Address City/[facility]/ZIP Co de Phone Number [facility] [address] [place] [address] * eGFR (05/05/2025 12:08 PM CDT) eGFR [...] ORDERABLES Fin al Result Performing Organization Address City/[facility]/ZIP Co de Phone Number [facility] [address] [place] [address] * Thyroid Function [place] (05/05/2025 12:08 PM CDT) TSH 1.48 0.30 - 4.20 mcIUnit/mL Blood 05/05/2025 12:0 8 PM CDT 05/05/2025 12:08 PM CDT Cristi Salinas MD LAB BLOOD ORDERABLES Fin al Result Performing Organization Address City/[facility] Co de Phone Number [facility] [address] [facility] [place] [address] * T4, free (05/05/2025 12:08 PM CDT) [facility] Free T4 1.21 0.90 - 1.70 ng/dL Blood 05/05/2025 12:0 8 PM CDT 05/05/2025 12:08 PM CDT Cristi Salinas MD LAB BLOOD ORDERABLES Fin al Result Performing Organization Address City/[facility] Co de Phone Number [facility] [address] [facility] [place] [address] * Vitamin B12 (05/05/2025 12:08 PM CDT) [facility] Vitamin B12 321 230 - 1,250 pg/mL Blood 05/05/2025 12:0 8 PM CDT 05/05/2025 12:08 PM CDT Cristi Salinas MD LAB BLOOD ORDERABLES Fin al Result Performing Organization Address City/[facility] Co de Phone Number [facility] [address] [facility] [place] [address] * Creatinine (05/05/2025 12:08 PM CDT) [facility] Creatinine 0.71 0.60 - 1.10 mg/dL Blood 05/05/2025 12:0 8 PM CDT 05/05/2025 12:08 PM CDT Cristi Salinas MD LAB BLOOD ORDERABLES Fin al Result Performing Organization Address [facility] Co de Phone Number [facility] [address] [facility] [place] [place], [place] [id number] * Vitamin B1 (05/05/2025 12:00 PM CDT) Thiamine (Vit B1) [facility] ref Lab Comment: Thiamin (Vitamin B1), WB was cancelled on 05/09/2025 at 19:01; Specimen was clotted. Test Performed by: [facility] [place] [address] Top Cager: Denis Hawkins Ph.D.; CLIA# [id number] Blood 05/05/2025 12:0 0 PM CDT 05/05/2025 5:27 PM CDT Cristi Salinas MD LAB BLOOD ORDERABLES Fin al Result Performing Organization Address [facility] Co de Phone Number [facility] [address] [facility] [place] [address] [facility] Lab * Vitamin B6 (05/05/2025 12:00 PM CDT) Pathologist [facility] Pyridoxal phosphate (Vit B6) 25 5 - 50 mcg/L [place] ref Lab Comment: ADDITIONAL INFORMATION This test was developed and its performance characteristics determined by [facility] in a manner consistent with CLIA requirements. This test has not been cleared or approved by the U.S. Food and Drug Administration. Test Performed by: [facility] [place] [id number] Top Cager: Denis Hawkins Ph.D.; CLIA# [id number] Blood 05/05/2025 12:0 0 PM CDT 05/05/2025 5:27 PM CDT Cristi Salinas MD LAB BLOOD ORDERABLES Fin al Result [facility] [address] [place] [address] [place] ref Lab * Screening Mammogram Bilateral [place] (12/24/2021 2:23 PM CDT) Anatomical Region Laterality Modality Breast Bilateral Mammography Narrative 12/25/2021 10:39 AM CDT Mammogram Technique: Bilateral Digital Breast Tomosynthesis, Bilateral C-view 2D Screening mammogram. Views obtained: bilateral craniocaudal and bilateral mediolateral oblique. Computer Aided Detection was performed. Mammogram Findings: The present examination has been compared to prior imaging studies performed at [facility] on 09/07/2018 and 12/01/2020, and at [facility] on 11/01/2019. There are scattered areas [...] to prior imaging studies performed at [facility] on 09/07/2018 and 12/01/2020, and at [facility] on 11/01/2019. There are scattered areas of fibroglandular density. There is no suspicious abnormality in either breast. Impression: There is no mammographic evidence of malignancy. Annual screening mammography is recommended. OVERALL FINAL ASSESSMENT: BI-RADS CATEGORY 1: Negative. us Self Screening Mammogram IMG MAMMO PROCEDURES Fi nal Result from Last 3 Months or Most Recently Relevant to Health Maintenance Insurance [facility] Advance Directives For more information, please contact: [phone] * Full Code (Latest Code Status on File) Date Activated Date Inactivated Comments 05/28/2019 6:46 PM 05/30/2019 10:06 PM * Full Code Date Activated Date Inactivated Comments 05/05/2019 4:26 PM 05/07/2019 11:22 PM * Full Code Date Activated Date Inactivated Comments 04/19/2019 9:03 AM 04/21/2019 6:40 PM * Full Code Date Activated Date Inactivated Comments 08/21/2018 12:35 PM 08/21/2018 5:10 PM Care Teams Forklift Supervisor Relationship Specialty Start Date End Date Jonathan Amado MD PCP - General 03/18/17 Jim Shelby MD [address] [address] Consulting Physician Gastroenterology 06/16/19
--- OUTSIDE RECORDS SUMMARY | 2025-07-25 18:18 | XMS_ITS | Encounter Summary ---
Author Organization 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
--- OUTSIDE RECORDS SUMMARY | 2025-07-25 18:18 | XMS_ITS | Clinical Summary ---
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
--- OUTSIDE RECORDS SUMMARY | 2025-07-25 18:18 | XMS_ITS | Encounter Summary ---
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
--- OUTSIDE RECORDS SUMMARY | 2025-07-25 18:18 | XMS_ITS | Encounter Summary ---
Author Organization 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
--- OUTSIDE RECORDS SUMMARY | 2025-07-25 18:18 | XMS_ITS | Encounter Summary ---
Author Organization [facility] Healthcare Address [address] [place] [address] Care Team Providers Care Home Improvement Advisor Name Role Phone Jonathan Amado MD Primary Care Provider [phone] Jim Shelby MD Unavailable [phone] Encounter Details Date Type Department Care Team (Latest Contact Info) Description 06/03/2025 Results Follow-Up [facility] Medical Group Gastroenterology at [address] [place] [address] Oleg Diamond MD [address] [place] [address] Surgical pathology Social History Tobacco Use [...] and Family Not on file 12/13/2019 Attends Tenriism Services Not on file 12/12 Active Member [...] on file 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
--- OUTSIDE RECORDS SUMMARY | 2025-07-25 18:18 | XMS_ITS | Clinical Summary ---
Author Organization [facility] Address [address] [place] [address] Care Team Providers Care Analog Device Designer Name Role Phone Unavailable Primary Care Provider [...]
[2025-07-25 18:20] LABS: Hematocrit 41.3 % (37.0-47.0); Hemoglobin 14.1 g/dL (12.0-15.0); Immature Granulocyte Percent A 0.3 % (0-0.5); Lymphocytes Absolute Auto 1.75 K/mm3 (0.9-3.2); Mean Corpuscular HGB Conc 34.1 g/dl (32-36); Mean Corpuscular Hemoglobin 30.4 pg (26-34); Mean Corpuscular Volume 89.0 fl (80-100); Nucleated Red Blood Cells Absolute Auto 0.000 K/mm3 (0.0-0.012); Nucleated Red Blood Cells Perc 0.0 % (0.0-0.2); Platelet Count Result 257 k/mm3 (150-375); Red Blood Count 4.64 M/mm3 (4.2-5.4); White Blood Count 6.0 K/mm3 (4.5-10.0)
[2025-07-25 18:26] LABS: Add Urine Microscopic? YES; Appearance Urine Clear (Clear); Glucose Urine UA Negative (Negative); Leukocyte Esterase Ur Negative LEU/UL (Negative); Nitrate Urine Negative (Negative); Non Pathogenic Casts 0-2; Specific Grav Ur 1.034 (1.001-1.035)
[2025-07-25 18:31] LABS: INR 1.0; Prothrombin Time 13.6 Seconds (11.1-14.7)
[2025-07-25 18:32] LABS: Partial Thromboplastin Time 27.6 Seconds (22.3-36.8)
[2025-07-25 18:42] LABS: Alanine Aminotransferase 66 U/L (6-35); Albumin Level 3.7 g/dL (3.5-5.1); Alkaline Phosphatase 64 U/L (38-126); Anion Gap 5 mmol/L (4-12); Aspartate Amino Transferase 55 U/L (14-36); Bilirubin,Total 1.0 mg/dL (0.2-1.3); Blood Urea Nitrogen 11 mg/dL (7-17); CRP < 0.5 mg/dL (<1.0); Calcium 9.1 mg/dL (8.4-10.2); Carbon Dioxide 28 mmol/L (22-30); Chloride 100 mmol/L (98-107); Estimated CRCL calculation 69 ml/min; Estimated Glomerular Filt Rate > 60; Glucose 93 mg/dL (65-110); Magnesium 2.0 mg/dL (1.6-2.3); Potassium 4.0 mmol/L (3.4-5.0); Sodium 133 mmol/L (137-145); Total Protein 6.5 g/dL (6.3-8.2)
[2025-07-25 18:43] LABS: NT Pro B Type Natriuretic Pept 25 pg/mL (19.9-100)
[2025-07-25 19:09] LABS: Lipase 42 U/L (23-300)
[2025-07-25 19:11] LABS: Acetaminophen < 10 ug/mL (10-30)
[2025-07-25] MEDS: CEPHALEXIN 500 MG CAPSULE PO (19:27)
[2025-07-25] MEDS: RIVAROXABAN 15 MG TABLET PO (19:27)
[2025-07-25 19:41] VITALS: BP 135/85; PULSE 90; RESP 15; O2SAT 98
[2025-07-25 19:47] VITALS: BP 135/85; PULSE 90; RESP 15; O2SAT 98
== END 2025-07-25 19:50 | disposition home or self-care (01) ==
PROVIDERS: Physician Assistant; Emergency Provider Student in an Organized Health Care Education/Training Program; PCP Family Medicine
DX: I82.442 Acute embolism and thrombosis of left tibial vein (principal); R60.0 Localized edema; L03.115 Cellulitis of right lower limb; R74.01 Elevation of levels of liver transaminase levels; E87.1 Hypo-osmolality and hyponatremia; G30.0 Alzheimer's disease with early onset; F02.80 Dementia in other diseases classified elsewhere, unspecified severity, without behavioral disturbance, psychotic disturbance, mood disturbance, and anxiety; R47.01 Aphasia; Z79.01 Long term (current) use of anticoagulants
CPT/HCPCS: 36415; 70450; 73630; 80053; 80143; 81001; 83605; 83690; 83735; 83880; 85025; 85610; 85652; 85730; 86140; 87086; 93005; 93970; 99284; A9270

== ENCOUNTER 2025-07-28 16:46 | Outpatient (CLI) | payer BC, SELFPAY ==
--- NOTE | ~2025-07-28 | XR_ITS ---
XR_CERV2-3V_CR Indication: M40.209 - Unspecified kyphosis, site unspecified Comparison: None Findings: The vertebral heights are intact. No fracture or subluxation. The disc heights are intact. Soft tissues unremarkable Impression: No acute abnormality. Reviewed, dictated and finalized at location P. Impression: No acute abnormality.
--- NOTE | ~2025-07-28 | XR_ITS ---
XR thoracic spine 3V Indication: M40.209 - Unspecified kyphosis, site unspecified Comparison: None Findings: The vertebral heights are intact. No fracture or subluxation. The disc heights are intact. Soft tissues unremarkable Impression: No acute abnormality. Reviewed, dictated and finalized at location P. Impression: No acute abnormality.
--- NOTE | ~2025-07-28 | XR_ITS ---
XR lumbar spine 2-3V Indication: M40.209 - Unspecified kyphosis, site unspecified Comparison: None Findings: The vertebral heights are intact. No fracture or subluxation. The disc heights are intact. Soft tissues unremarkable Impression: No acute abnormality. Reviewed, dictated and finalized at location P. Impression: No acute abnormality.
--- OUTSIDE RECORDS SUMMARY | 2025-07-28 17:54 | XMS_ITS | Encounter Summary ---
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
--- OUTSIDE RECORDS SUMMARY | 2025-07-28 17:54 | XMS_ITS | Clinical Summary ---
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
--- OUTSIDE RECORDS SUMMARY | 2025-07-28 17:54 | XMS_ITS | Encounter Summary ---
Author Organization [facility] Address [address] [place] [address] Phone Care Team Providers Care Residency Program Coordinator Name Role Phone Jonathan Amado MD Primary Care Provider [phone] Jim Shelby MD Unavailable [phone] Encounter Details Date Type Department Care Team (Late st Contact Info) Description 06/06/2025 Telephone [facility] [address] [place] [address] 7th [address] [facility] [place] [address] Juancho Farris MSW Social History [...] on file 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
--- OUTSIDE RECORDS SUMMARY | 2025-07-28 17:54 | XMS_ITS | Encounter Summary ---
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
--- OUTSIDE RECORDS SUMMARY | 2025-07-28 17:54 | XMS_ITS | Clinical Summary ---
Author Organization [facility] Address [address] [place] [address] Care Team Providers Care Hvac Technician Residential Name Role Phone Unavailable Primary Care Provider [...]
--- OUTSIDE RECORDS SUMMARY | 2025-07-28 17:54 | XMS_ITS | Clinical Summary ---
Author Organization [facility] Address [address] [facility] [place] [address] Care Team Providers Care Machine Shop Worker Name Role Phone Jonathan Amado MD Unavailable [phone] Jonathan Amado MD Primary Care Provider [phone] Source Comments [facility],non-owned Affiliates and Associated Physician Practices is amultiple site organization consisting of ambulatory clinics and hospital sitesin [place], [place], [place] and [place]. This disclosure is being madepursuant to the Care Everywhere program and may not contain all information available regarding this patient. Last updated 18.[facility] Allergies Active Allergy Reactions Criticality Noted Date [...] fluticasone propionate (FLONASE) 50 MCG/ACT nasal spray Kennard 2 (two) sprays into each nostril once daily Active ergocalciferol (DRISDOL) 1.25 MG (34548 UT) capsule Take 1 (one) capsule by [...] Active azelastine (Astepro) 205.5 MCG/SPRAY nasal spray Kennard 2 (two) sprays into each nostril 2 times daily 90 mL 4 3 Active Additional Information Patient not taking.Reason: Patient adjusted, Reported on 03/08/2025 ibandronate (Boniva) 150 MG tablet Take 1 (one) tablet by mouth every 30 days 4 Active FLUoxetine (PROzac) 20 MG capsule Take 1 (one) capsule by mouth once daily 4 Active allergy injection Per [facility] Otolaryngology protocol Active fexofenadine (Cassie) 180 MG tablet Take 1 (one) tablet by mouth once daily Active Vitamin D, Ergocalciferol , 00122 units CAPS Take 1 (one) capsule by [...] 2300-700mg (Neilmed Sinus Rinse) 2300-700 MG Kit Kennard 1 (one) kit into each nostril once [...] Encounters Date Type Department Care Team Description 07/26/2025 3:20 PM CDT Clinical Support [facility] [address] [place] [phone] Allergic rhinitis due to pollen, unspecified seasonality 07/26/2025 Travel 07/14/2025 10:40 AM CDT Clinical Support [facility] [address] [place] [phone] Allergic rhinitis due to pollen, unspecified seasonality 07/14/2025 Travel 06/28/2025 3:40 PM CDT Clinical Support [facility] [address] [place] [phone] Allergic rhinitis due to pollen, unspecified seasonality 06/28/2025 Travel 06/21/2025 3:40 PM CDT Clinical Support [facility] - [facility] [address] [place] [phone] Fatigue, unspecified type 06/21/2025 Travel 06/14/2025 3:40 PM CDT Clinical Support [facility] - [facility] [address] [place] [phone] Allergic rhinitis due to pollen, unspecified seasonality 06/14/2025 Travel 06/07/2025 3:40 PM CDT Clinical Support [facility] - [facility] [address] [place] [phone] Allergic rhinitis due to pollen, unspecified seasonality 06/07/2025 Travel 05/24/2025 3:40 PM CDT Clinical Support [facility] - [facility] [address] [place] [phone] Allergic rhinitis due to pollen, unspecified seasonality 05/24/2025 Travel 05/17/2025 3:40 PM CDT Clinical Support [facility] - [facility] [address] [place] [phone] Allergic rhinitis due to pollen, unspecified seasonality 05/17/2025 Travel 05/10/2025 3:40 PM CDT Clinical Support [facility] - [facility] [address] [place] [phone] Allergic rhinitis due to pollen, unspecified seasonality 05/10/2025 Travel 05/03/2025 3:40 PM CDT Clinical Support [facility] - [facility] [address] [place] [phone] Allergic rhinitis due to pollen, unspecified seasonality [...] 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 Not on file [...] Care Team (Late st Contact Info) Description 08/02/2025 3:20 PM CDT Clinical Support [facility] [address] [place] [phone] 08/09/2025 3:20 PM CDT Clinical Support [facility] [address] [place] [phone] Health Maintenance Due Date Last Done Comments [...] history exists DEPRESSION SCREENING 10/13/2024 COVID-19 VACCINE ( - 2024- season) 2025 06/13/2024, 07/17/2021, 12/29/2020, Additional history exists INFLUENZA VACCINE (#1) 2025 , 08/16/2021, 07/03/2020, Additional history exists DTAP/TDAP/TD VACCINES (3 - [...] <0.1 0.0 - 0.9 s/co ratio [facility] ([facility]) Comment: Negative: < 0.8 Indeterminate: 0.8 - 0.9 Positive: > 0.9 The CDC recommends that a positive HCV antibody result be followed up with a HCV Nucleic Acid Amplification test (393634). Blood specimen (specimen) BLOOD SPECIMEN / Unknown 02/05/2016 11:21 AM CDT 02/05/2016 4:02 PM CDT Narrative [facility] ([facility]) - 02/13/2016 11:20 AM CDT Performed at: - [address] [id number] Toilet Attendant: Darwin Hunter PhD, Phone: [phone] us [facility] - CHEMISTRY ORDERABLES Ed ited Result - Final Performing Organization Address City/State/[facility] Co de Phone Number [facility] [address] [place] [address] from Last 3 Months or Most Recently Relevant to Health Maintenance Insurance [facility] Care Teams Machine Shop Worker Relationship Specialty Start Date End Date Jonathan Amado MD [address] [place] [phone] PCP - General Family Medicine 09/15/23 Jonathan Amado MD [address] [place] [phone] 06/24/13
--- OUTSIDE RECORDS SUMMARY | 2025-07-28 17:54 | XMS_ITS | Clinical Summary ---
Author Organization [facility] Address [address] [place] [address] Care Team Providers Care Crown Perforator Operator Name Role Phone Unavailable Primary Care [...]
--- OUTSIDE RECORDS SUMMARY | 2025-07-28 17:54 | XMS_ITS | Encounter Summary ---
Author Organization [facility] Healthcare Address [address] [place] [address] Care Team Providers Care Staff Radiographer Name Role Phone Jonathan Amado MD Primary Care Provider [phone] Jim Shelby MD Unavailable [phone] Encounter Details Date Type Department Care Team (Latest Contact Info) Description 06/03/2025 Results Follow-Up [facility] Medical Group Gastroenterology at [address] [place] [address] Oleg Diamond MD [address] [place] [address] Surgical pathology Social History Tobacco Use [...] and Family Not on file 12/13/2019 Attends Adventism Services Not on file 12/12 Active Member [...] on file 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
--- OUTSIDE RECORDS SUMMARY | 2025-07-28 17:54 | XMS_ITS | Clinical Summary ---
Author Organization [facility] Address [address] [place] [address] Care Team Providers Care Professional Housing Consultant Name Role Phone Jonathan Amado MD Primary Care Provider [phone] Jim Shelby MD Unavailable [phone] Allergies Active Allergy Reactions Criticality Noted Date [...] 06/24/2013 Sulfasalazine Rash Medium 04/24/2012 Body aches [place] Pollen-Short Ragweed Unknown 01/28/2023 ragweed - allergy [...] (04/21/2019): Added automatically from request for surgery [id number] Assessment & Plan (05/12/2025 9:34 AM CDT): [...] Encounters Date Type Department Care Team Description 07/26/20 Documentation [facility] Medical Office Bldg 1 Outptnt Speech Therapy [address] [place] [address] Diane Degroot, PLANT CARE WORKER 07/22/20 Telephone [facility] [address] [place] [address] First Floor [address] [place] [address] Jen Cifuentes, Maximilian Appointment 07/15/20 11:00 AM CDT Therapy [facility] OP Speech Therapy [address] [place] [address] Ronel Harrison, PLANT CARE WORKER Primary progressive aphasia (HCC) (Primary Dx); AD (Alzheimer's disease); Word finding difficulty; Aphasia 07/07/20 10:00 AM CDT Therapy [facility] OP Speech Therapy [address] [place] [address] Ronel Harrison, PLANT CARE WORKER Primary progressive aphasia (HCC) (Primary Dx); AD (Alzheimer's disease); Word finding difficulty; Aphasia 07/07/20 Plan of Care Documentation [facility] OP Speech Therapy [address] [place] [address] 07/05/20 Telephone [facility] [address] [place] [address] [address] [place] [address] Ramandeep Hayes, DRAWER IN PLAIN LOOM 07/04/20 Telephone [facility] [address] [place] [address] Ramandeep Hayes, DRAWER IN PLAIN LOOM 07/01/20 9:00 AM CDT Therapy [facility] OP Speech Therapy [address] [place] [address] Ronel Harrison, MANJINDER Primary progressive aphasia (HCC) (Primary Dx); AD (Alzheimer's disease); Word finding difficulty; Aphasia 06/30/20 Telephone [facility] [address] [place] [address] [address] [place] [address] Alexis Palma LCSW 06/29/20 [facility] [address] [place] [address] [address] [place] [address] Jen Cifuentes RMA Patient issue/concern 06/24/20 11:00 AM CDT Therapy [facility] OP Speech Therapy [address] [place] [address] Ronel Harrison, PLANT CARE WORKER Primary progressive aphasia (HCC) (Primary Dx); AD (Alzheimer's disease); Word finding difficulty; Aphasia 06/24/20 Telephone [facility] [address] [place] [address] [place] [address] Jen Cifuentes RMA Med Refill 06/17/20 9:00 AM CDT Therapy [facility] OP Speech Therapy [address] [place] [address] Ronel Harrison, MANJINDER Primary progressive aphasia (HCC) (Primary Dx); AD (Alzheimer's disease); Word finding difficulty; Aphasia 06/10/20 9:00 AM CDT Therapy [facility] OP Speech Therapy [address] [place] [address] Ronel Harrison, MANJINDER Primary progressive aphasia (HCC) (Primary Dx); AD (Alzheimer's disease); Word finding difficulty; Aphasia 06/07/20 Telephone [facility] [address] [place] [address] [address] [place] [address] Jen Cifuentes, YINA 06/06/20 Orders Only [facility] [address] [place] [address] [address] [place] [phone] Meg Coleman PA 06/06/20 Telephone [facility] [address] [place] [address] for [place] [address] Juancho Farris MSW 06/06/20 Telephone [facility] [address] [place] [address] [address] [place] [phone] Jen Cifuentes, RMMaximilian Medication Request 06/06/20 Plan of Care Documentation [facility] OP Speech Therapy [address] [place] [address] 06/03/20 Results Follow-Up [facility] Gastroenterology at [place] [id number] [facility] [address] [place] [address] Oleg Diamond MD Surgical pathology 06/01/20 12:11 PM CDT Anesthesia Event [facility] [address] [place] [address] Yaakov Mota MD [place], Kimberly K., AVIATION MEDICINE SPECIALIST 06/01/20 12:00 PM CDT - 06/01/20 12:30 PM CDT Surgery [facility] [address] [place] [address] Oleg Diamond MD ESOPHAGOGASTRODUODENOSCOPY BIOPSY 06/01/20 10:27 AM CDT - 06/01/20 1:50 PM CDT Hospital Encounter [facility] [address] [place] [address] Oleg Diamond MD Gastroesophageal reflux disease, unspecified whether esophagitis present; Abdominal pain; Rectal bleeding Discharge Disposition: Discharge to home or self care 05/30/20 1:00 PM CDT Therapy [facility] OP Speech Therapy [address] [place] [phone] Diane Degroot, PLANT CARE WORKER Primary progressive aphasia (HCC) (Primary Dx); AD (Alzheimer's disease); Word finding difficulty; Aphasia 05/19/20 Results Follow-Up [facility] Obstetrics and Gynecology [address] [facility] 7th Floor [address] [place] [address] Leilani Marshall Rai, NP Urinalysis reflex to microscopic and culture Urine, clean voided, REFLEXIVE URINE CULTURE 05/18/20 4:00 PM CDT Office Visit [facility] Obstetrics [facility] Gynecology [address] [facility] 1st Floor [address] [place] [address] Leilani Marshall Rai, NP Urgency of urination (Primary Dx); Urinary disorder; Frequency of micturition 05/18/20 9:00 AM CDT Therapy [facility] Occup Therapy [address] [place] [address] Randi Rivas, OT Alzheimer's disease; Primary progressive aphasia (HCC); Other amnesia; Aphasia 05/18/20 Plan of Care Documentation [facility] Occup Therapy [facility] [address] [address] 05/16/20 Telephone [facility] Ob[facility]s [facility] Gynecology [address] [facility] 7th Floor [address] [place] [address] Ai Finnegan RN 05/12/20 8:30 AM CDT Office Visit [facility] Gastroenterology at [address] [place] [address] Carole Mckeon NP Gastroesophageal reflux disease, unspecified whether esophagitis present (Primary Dx); Abdominal pain; Rectal bleeding 05/06/[address] First Floor [address] [place] [address] Jen Cifuentes RMA Request For Order(s) 05/05/20 10:25 AM CDT Lab [facility] Outpatient Lab [address] [place] [phone] 05/03/[address] [place] [phone] Jen Cifuentes RMA from Last 3 Months [...] infection 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 Dysphagia Bright red stool Chronic constipation Chronic [...] and Family Not on file 12/13/2019 Attends [employer] Not on file 12/12 Active Member [...] on file 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 Gender Identity Not on file Sexual [...] 12/01/2020, 11/01/2019, Additional history exists Covid-19 Vaccine (2024-2 6 season) 2025 07/17/2021, 12/29/2020, 12/08/2020 Influenza Vaccine (#1) 2025 , 07/03/2020, 09/17/2019, Additional history exists Regular Well Visit/Exam 18-64 10/26/2025, 07/17/2022, 07/03/2020, Additional history exists DTaP/Tdap/Td Vaccine (3 - Td or Tdap) 06/22/2028 06/22/2018, 10/29/2017, 10/17/2011 Colon Cancer Screening-Colonoscopy 06/01/2035 06/01/2025, 08/21/2018, 10/31/2014 Medical Devices Explanted Type Area Rn Clinical Review Device Identifier Shelf Expiration Date Model / Serial / Lot [employer] [id number] Rojo Flexi-Stent 7fr 3cm Small Pigtail Flexible .035in Stent - [id number] Implanted:Qty: 1 on 04/19/2019 by Jim Shelby MD at [facility] Explanted:Qty: 1 on 04/21/2019 at [facility] Stent Pancreas [employer] 11/12/2023 657 1 / / [id number] [employer] [id number] Levasy Viabil 10mm 8.5fr 6cm 200cm Fully Covered Self Expand Pull - [id number] - [id number] Implanted:Qty: 1 on 04/19/2019 by Jim Shelby MD at [facility] Explanted:Qty: 1 on 04/21/2019 at [facility] Stent Bile Duct Conmed Tracie 12/21/2021 [id number] / [id number] / Procedures Procedure Name Priority Date/Time Associated [...] Biopsy) 06/01/2025 12:52 PM CDT Narrative PATHOLOGY [facility] - 06/02/2025 12:32 PM CDT [facility] Department of Pathology [address] [place] [address] Note to Patients: This report may contain [...] : 1970 (Age: 55) Gender: F Address: [address] [place] [address] Hospital #: [id number] Service: Gastro Location: Patient Type: [facility] OUTPATIENT Taken: 06/01/2025 Received: 06/01/2025 Accessioned: 06/01/2025 [...] a microscopic examination of each tissue sample. [facility] Distribution Clinical History: The patient is a [...] Jar 0. jjmhb/06/01/2025 14:30 CRISTINA Barnes, PA ([facility] Microscopic slide review and interpretation for this case was performed at [facility], Department of Surgical Pathology, [address] [facility] [place], [place] [id number], [place] [address] CLIA # [id number] us Oleg Diamond MD LAB PATHOLOGY ORDERABLES Final R esult PATHOLOGY [facility] * EGD (06/01/2025 11:52 AM CDT) Anatomical Region Laterality Modality Other Narrative Procedure Note Oleg Diamond MD - 06/01/2025 11:52 AM CDT [facility] GI ENDOSCOPY Patient Name: Pina Roche Procedure Date: 06/01/2025 11:52 AM Date of : 1970 Admit Type: Outpatient Age: 55 Gender: Female Attending MD: Oleg Diamond M.D., Room: [facility] ENDOSCOPY ROOM 03 Note Status: Finalized Procedure: [...] On: 06/01/2025 11:52 AM Recognized by the [place] [employer] for promoting quality in endoscopy us Oleg Diamond MD ENDOSCOPY PROCEDURES Final Resul t * Colonoscopy (06/01/2025 11:52 AM CDT) Anatomical Region Laterality Modality Other Narrative Procedure Note Oleg Diamond MD - 06/01/2025 11:52 AM CDT [facility] GI ENDOSCOPY Patient Name: Pina Roche Procedure Date: 06/01/2025 11:52 AM Date of : 1970 Admit Type: Outpatient Age: 55 Gender: Female Attending MD: Oleg Diamond M.D., Room: [facility] ENDOSCOPY ROOM 03 Note Status: Finalized Procedure: [...] The scope was passed under direct vision.The [id number] colonoscope was introduced through theanus and advanced [...] On: 06/01/2025 11:52 AM Recognized by the [place] for promoting quality in endoscopy Oleg Diamond MD ENDOSCOPY PROCEDURES Final Resul t * REFLEXIVE URINE CULTURE (05/18/2025 4:44 PM CDT) [facility]rine culture [facility] Comment:NO CULTURE INDICATED 05/18/2025 4:44 PM CDT 05/18/2025 10:13 PM CDT Leilani Marshall NP LAB MICROBIOLOGY - MOOKIE AL ORDERABLES Final Result [facility] [address] [place] [address] * Urinalysis reflex to microscopic and culture [...] SEEN < OR = 5 /HPF [facility] Bacteria, ur, quant NONE SEEN NONE SEEN /HPF [facility] Hyaline cast NONE SEEN NONE SEEN /LPF [facility] Note [facility] Comment: This urine was analyzed for the presence of WBC, RBC, bacteria, casts, and other formed elements. Only those elements seen were reported. Urine, clean voided 05/18/2025 4:44 PM CDT 05/18/2025 10:13 PM CDT us Leilani Marshall NP LAB MICROBIOLOGY - GENER AL ORDERABLES Final Result [facility] [address] [place] [address] * eGFR (05/05/2025 12:08 PM CDT) eGFR [...] LAB BLOOD ORDERABLES Fin al Result [facility] [address] [facility] [address] [place] [address] * Thyroid Function [place] (05/05/2025 12:08 PM CDT) Pathologist [facility] TSH 1.48 0.30 - 4.20 mcIUnit/mL Blood 05/05/2025 12:0 8 PM CDT 05/05/2025 12:08 PM CDT us Cristi Salinas MD LAB BLOOD ORDERABLES Fin al Result Performing Organization Address [facility] Co de Phone Number [facility] [address] [facility] [address] [place] [address] * T4, free (05/05/2025 12:08 PM CDT) [facility] Free T4 1.21 0.90 - 1.70 ng/dL Blood 05/05/2025 12:0 8 PM CDT 05/05/2025 12:08 PM CDT us Cristi Salinas MD LAB BLOOD ORDERABLES Fin al Result Performing Organization Address [facility] Co de Phone Number [facility] [address] [facility] [address] [place] [address] * Vitamin B12 (05/05/2025 12:08 PM CDT) Pathologist [facility] Vitamin B12 321 230 - 1,250 pg/mL Blood 05/05/2025 12:0 8 PM CDT 05/05/2025 12:08 PM CDT Cristi Salinas MD LAB BLOOD ORDERABLES Fin al Result Performing Organization Address City/[facility]/ZIP Co de Phone Number [facility] [address] [facility] [address] [place] [address] * Creatinine (05/05/2025 12:08 PM CDT) Creatinine 0.71 0.60 - 1.10 mg/dL Blood 05/05/2025 12:0 8 PM CDT 05/05/2025 12:08 PM CDT Cristi Salinas MD LAB BLOOD ORDERABLES Fin al Result Performing Organization Address [facility] Co de Phone Number [facility] [address] [facility] [address] [place], [place] [id number] * Vitamin B1 (05/05/2025 12:00 PM CDT) Pathologist [facility] Thiamine (Vit B1) [facility] Comment: Thiamin (Vitamin B1), WB was cancelled on 05/09/2025 at 19:01; Specimen was clotted. Test Performed by: [place] [address] Neurology Technologist: Denis Hawkins Ph.D.; CLIA# [id number] Blood 05/05/2025 12:0 0 PM CDT 05/05/2025 5:27 PM CDT Cristi Salinas MD LAB BLOOD ORDERABLES Fin al Result Performing Organization Address [facility] de Phone Number [facility] [address] [facility] [address] [place] [address] [facility] * Vitamin B6 (05/05/2025 12:00 PM CDT) Pathologist [facility] Pyridoxal phosphate (Vit B6) 25 5 - 50 mcg/L [facility] Comment: ADDITIONAL INFORMATION This test was developed and its performance characteristics determined by [facility] in a manner consistent with CLIA requirements. This test has not been cleared or approved by the U.S. Food and Drug Administration. Test Performed by: [place] [address] Neurology Technologist: Denis Hawkins Ph.D.; CLIA# [id number] Blood 05/05/2025 12:0 0 PM CDT 05/05/2025 5:27 PM CDT Cristi Salinas MD LAB BLOOD ORDERABLES Fin al Result [facility] [address] Department [place] [address] [facility] * Screening Mammogram Bilateral [place] (12/24/2021 2:23 PM CDT) Anatomical Region Laterality Modality Breast Bilateral Mammography Narrative 12/25/2021 10:39 AM CDT Mammogram Technique: Bilateral Digital Breast Tomosynthesis, Bilateral C-view 2D Screening mammogram. Views obtained: bilateral craniocaudal and bilateral mediolateral oblique. Computer Aided Detection was performed. Mammogram Findings: The present examination has been compared to prior imaging studies performed at [facility] on 09/07/2018 and 12/01/2020, and at [facility] on 11/01/2019. There are scattered areas of [...] compared to prior imaging studies performed at [facility] on 09/07/2018 and 12/01/2020, and at [facility] on 11/01/2019. There are scattered areas of fibroglandular density. There is no suspicious abnormality in either breast. Impression: There is no mammographic evidence of malignancy. Annual screening mammography is recommended. OVERALL FINAL ASSESSMENT: BI-RADS CATEGORY 1: Negative. us Self Screening Mammogram IMG MAMMO PROCEDURES Fi nal Result from Last 3 Months or Most Recently Relevant to Health Maintenance Insurance [facility] Advance Directives For more information, please contact: [phone] * Full Code (Latest Code Status on File) Date Activated Date Inactivated Comments 05/28/2019 6:46 PM 05/30/2019 10:06 PM * Full Code Date Activated Date Inactivated Comments 05/05/2019 4:26 PM 05/07/2019 11:22 PM * Full Code Date Activated Date Inactivated Comments 04/19/2019 9:03 AM 04/21/2019 6:40 PM * Full Code Date Activated Date Inactivated Comments 08/21/2018 12:35 PM 08/21/2018 5:10 PM Care Teams Professional Housing Consultant Relationship Specialty Start Date End Date Jonathan Amado MD PCP - General 03/18/17 Jim Shelby MD [address] [address] Consulting Physician Gastroenterology 06/16/19
== END 2025-07-28 16:47 | disposition home or self-care (01) ==
PROVIDERS: PCP Family Medicine; Visit Provider Student in an Organized Health Care Education/Training Program
DX: M40.209 Unspecified kyphosis, site unspecified (principal); W19.XXXA Unspecified fall, initial encounter
CPT/HCPCS: 72040; 72072; 72100